=== PATIENT | female | born 1950 | race Caucasian/White ===

== ENCOUNTER → 2017-08-06 | Outpatient (CLI) | payer MEDICARE, OTHER ==
[2017-08-06 16:46] LABS: CHCM 32.2; HCT 42.4 % (34.0-46.0); HDW 2.46; HGB 13.2 gm/dL (11.4-16.0); MCH 26.2 pg (25.0-35.0); MCHC 31.1 g/dL (31.0-37.0); MCV 84.1 fL (80.0-100.0); Mean Platelet Volume 6.8; RBC 5.04 m/uL (3.80-5.40); RDW 14.3 % (11.5-15.5); WBC 12.8 k/uL (3.8-10.6)
[2017-08-06 18:17] LABS: Erythrocyte Sedimentation Rate 18 mm/hr (0-20)
== END | disposition home or self-care (01) ==
LOC: LABWHC1 14:55
PROVIDERS: ATTEND Internal Medicine Infectious Disease
DX: E13.621 Other specified diabetes mellitus with foot ulcer (principal)
CPT/HCPCS: 36415; 85027; 85652

== ENCOUNTER → 2017-08-15 | Outpatient (CLI) | payer MEDICARE, OTHER ==
--- NOTE | 2017-08-15 14:13 | US ---
LOWER EXTREMITY VENOUS INSUFFICIENCY SIDE PERFORMED: Bilateral 1) Color flow is present and patency is documented in the following vessels. No DVT or SVT is noted . EIV Common Femoral Vein Deep Femoral Vein Femoral Vein Popliteal Vein Proximal Calf Veins Greater Saph Vein Upper Small Saph Vein 2) There is venous reflux noted at the following venous levels: none IMPRESSION: No sonographic evidence of deep venous thrombosis, superficial venous thrombosis, or veno us reflux within the bilateral lower extremities.
--- NOTE | 2017-08-22 11:58 | P.ARTDOP ---
Arterial Doppler LOWER EXTREMITY ARTERIAL DOPPLER: DATE OF SERVICE: 08/15/2017 Reason for study: Left leg and ankle ulcers. Doppler waveforms: Multiphasic bilaterally throughout. Pulse volume recording: Normal configuration. Pressure gradients: None. Ankle-brachial indices: Greater than 1 bilaterally. Toe pressures: 95 on the right, 104 on the left Impression: Normal study.
== END | disposition home or self-care (01) ==
LOC: RADUSWWP 12:15
PROVIDERS: ATTEND Internal Medicine Infectious Disease
DX: M79.604 Pain in right leg (principal); M79.605 Pain in left leg; E13.621 Other specified diabetes mellitus with foot ulcer
CPT/HCPCS: 93923; 93970

== ENCOUNTER 2018-02-07 17:33 | Inpatient (IN) | payer MEDICARE, OTHER ==
[2018-02-07] MEDS ORDERED: IPRATROPIUM-ALBUTEROL 3 ML NEB INHALATION STA (18:23)
--- NOTE | 2018-02-07 18:30 | ED ---
SOB HPI - General Source: patient, RN notes reviewed Mode of arrival: ambulatory Limitations: no limitations <Matthew Olivera - Last Filed: 02/07/18 19:38> <Alcon Gruber - Last Filed: 02/07/18 20:06> - General Chief Complaint: Shortness of Breath Stated Complaint: poss cellulitis, sent by dr nichols Time Seen by Provider: 02/07/18 17:53 - History of Present Illness Initial Comments: 67-year-old female presents emergency Department chief complaint of shortness of breath. Patient states that her shortness breath is worse with exertion. Patient states that she has noticed some swelling of her lower legs. Patient admitted to having a 23 and weight gain over the last 12 days. Patient also complains that her shortness breath is worse when she lays down flat. Patient states that she's been taking Lasix twice daily though she has not taken it today. Patient states that she has no history of CHF. Patient does admit to having asthma/COPD and continues to smoke. Patient also complains of redness or left lower extremity. Patient states that she hasn't pain associated her left leg compared to the right. (Matthew Olivera) - Related Data Home Medications Medication Instructions Recorded Confirmed Aspirin 81 mg PO HS 02/06/14 02/07/18 Escitalopram [Lexapro] 10 mg PO HS 02/06/14 02/07/18 Fenofibrate Nanocrystallized 145 mg PO HS 02/06/14 02/07/18 [Tricor] HYDROcodone/APAP 7.5-325MG [[place] 1 tab PO Q6H PRN 02/06/14 02/07/18 7.5-325] Zafirlukast [Accolate] 20 mg PO BID 02/06/14 02/07/18 Ergocalciferol [Vitamin D2 50,000 unit PO Q7D 12/10/14 02/07/18 (DRISDOL)] Ezetimibe [Zetia] 10 mg PO HS 12/10/14 02/07/18 Levothyroxine Sodium [Synthroid] 175 mcg PO DAILY 12/10/14 02/07/18 Loperamide [Imodium] 8 mg PO DAILY PRN 12/10/14 02/07/18 Melatonin 5 mg PO HS 12/10/14 02/07/18 Loratadine [Claritin] 10 mg PO DAILY 09/06/15 02/07/18 Simvastatin [Zocor] 40 mg PO HS 09/06/15 02/07/18 ARIPiprazole [Abilify] 5 mg PO HS 02/07/18 02/07/18 Albuterol Nebulized [Ventolin 2.5 mg INHALATION RT-QID PRN 02/07/18 02/07/18 Nebulized] Fluticasone Nasal [place] [Flonase 1 - 2 spray EA NOSTRIL DAILY 02/07/18 02/07/18 Nasal [place]] Furosemide [Lasix] 40 mg PO DAILY 02/07/18 02/07/18 Glimepiride [Amaryl] 2 mg PO AC-BRKFST 02/07/18 02/07/18 Ibuprofen [Motrin] 600 mg PO BID PRN 02/07/18 02/07/18 Lisinopril [Zestril] 10 mg PO DAILY 02/07/18 02/07/18 metFORMIN HCL [Glucophage] 500 mg PO BID 02/07/18 02/07/18 traZODone HCL 100 mg PO HS PRN 02/07/18 02/07/18 Previous Rx's Medication Instructions Recorded Tiotropium 18 Mcg/Puff [Spiriva] 1 puff INHALATION RT-DAILY #1 12/14/14 inhaler Albuterol Inhaler [Ventolin Hfa 2 puff INHALATION RT-Q4H PRN #0 09/07/15 Inhaler] Allergies Allergy/AdvReac Type Severity Reaction Status Date / Time adhesive Allergy Rash/Hives Verified 02/07/18 17:50 ciprofloxacin [From Cipro] Allergy Rash/Hives Verified 02/07/18 17:50 ciprofloxacin HCl Allergy Rash/Hives Verified 02/07/18 17:50 [From Cipro] latex Allergy Rash/Hives Verified 02/07/18 17:50 nitrofurantoin Allergy Rash/Hives Verified 02/07/18 17:50 [From Macrobid] nitrofurantoin Allergy Rash/Hives Verified 02/07/18 17:50 macrocrystalline [From Macrobid] Penicillins Allergy Rash/Hives Verified 02/07/18 17:50 propoxyphene HCl Allergy Rash/Hives Verified 02/07/18 17:50 [From Darvon] propoxyphene napsylate Allergy Unknown Verified 02/07/18 17:50 [From Darvocet-N] Review of Systems ROS Other: All systems not noted in ROS Statement are negative. <Matthew Olivera - Last Filed: 02/07/18 19:38> ROS Other: All systems not noted in ROS Statement are negative. <TasneemAlcon thapa - Last Filed: 02/07/18 20:06> ROS Statement: Those systems with pertinent positive or pertinent negative responses have been documented in the HPI. Past Medical History Past Medical History: Asthma, COPD, Diabetes Mellitus, Hypertension, Osteoarthritis (OA), Respiratory Disorder, Skin Disorder, Thyroid Disorder Additional Past Medical History / Comment(s): HX SKIN CA; HAS ECZEMA.. HX HYPOTHYROID. VARICOSE VEINS. 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 SOB W/ ACTIVITY.HX KIDNEY STONES. ON 12-04-14 HAD E-COLI IN URINE, 12-10-14 ADMITTED WITH CELLULITIS. LEFT LEG.HX OF FALLS. PT STATED USED TO BE ON MEDS FOR DIABETES BUT NOT TAKING ANYTHING NOW, CHECKS BS TID DIET CONTROLLED. History of Any Multi-Drug Resistant Organisms: None Reported Past Surgical History: Appendectomy, Section, Cholecystectomy, Orthopedic Surgery, Tubal Ligation Additional Past Surgical History / Comment(s): LASER SX JETHRO EYES FOR GLAUCOMA. RT KNEE ARTHROSCOPY. UNDERWENT PERCUTANEOUS NEPHROSTOLITHOTOMY Past Anesthesia/Blood Transfusion Reactions: No Reported Reaction Past Psychological History: Anxiety, Depression Smoking Status: Current every day smoker Past Alcohol Use History: None Reported Past Drug Use History: None Reported - Past Family History Mother Additional Family Medical History / Comment(s): emphysema, heart valve problems , in her slepp. Brother(s) Family Medical History: Cancer Additional Family Medical History / Comment(s): from oral cancer Father Brother(s) Family Medical History: Cancer Additional Family Medical History / Comment(s): heart disease <Matthew Olivera - Last Filed: 02/07/18 19:38> General Exam Limitations: no limitations General appearance: alert, in no apparent distress Head exam: Present: atraumatic, normocephalic, normal inspection Neck exam: Present: normal inspection. Absent: tenderness, meningismus, lymphadenopathy Respiratory exam: Present: wheezes, rales. Absent: normal lung sounds bilaterally, respiratory distress, rhonchi, stridor Cardiovascular Exam: Present: regular rate, normal rhythm, normal heart sounds. Absent: systolic murmur, diastolic murmur, rubs, gallop, clicks Extremities exam: Present: pedal edema, other (Left lower extremity there is some erythema noted pulses are equal bilaterally) Skin exam: Present: warm, dry, intact, normal color. Absent: rash <Matthew Olivera - Last Filed: 02/07/18 19:38> Vital Signs 02/07/18 02/07/18 02/07/18 17:45 18:54 18:58 Temperature 99.3 F Pulse Rate 89 64 70 Respiratory 18 16 24 Rate Blood Pressure 137/74 149/67 O2 Sat by Pulse 87 L 98 Oximetry 02/07/18 19:08 Temperature Pulse Rate 62 Respiratory 16 Rate Blood Pressure O2 Sat by Pulse Oximetry Medical Decision Making - Lab Data Result diagrams: 02/07/18 18:19 02/07/18 18:19 <Matthew Olivera - Last Filed: 02/07/18 19:38> - Lab Data Result diagrams: 02/07/18 18:19 02/07/18 18:19 <Alcon Gruber - Last Filed: 02/07/18 20:06> - Lab Data Lab Results 02/07/18 02/07/18 02/07/18 Range/Units 18:19 18:19 18:19 WBC 11.2 H (3.8-10.6) k/uL RBC 4.44 (3.80-5.40) m/uL Hgb 12.0 (11.4-16.0) gm/dL Hct 35.7 (34.0-46.0) % MCV 80.5 (80.0-100.0) fL MCH 27.0 (25.0-35.0) pg MCHC 33.6 (31.0-37.0) g/dL RDW 15.6 H (11.5-15.5) % Plt Count 386 (150-450) k/uL Neutrophils % 80 % Lymphocytes % 11 % Monocytes % 4 % Eosinophils % 2 % Basophils % 0 % Neutrophils # 9.0 H (1.3-7.7) k/uL Lymphocytes # 1.3 (1.0-4.8) k/uL Monocytes # 0.5 (0-1.0) k/uL Eosinophils # 0.2 (0-0.7) k/uL Basophils # 0.0 (0-0.2) k/uL PT (9.0-12.0) sec INR (<1.2) APTT (22.0-30.0) sec D-Dimer (<0.60) mg/L FEU Sodium 131 L (137-145) mmol/L Potassium 4.8 (3.5-5.1) mmol/L Chloride 91 L (98-107) mmol/L Carbon Dioxide 29 (22-30) mmol/L Anion Gap 11 mmol/L BUN 29 H (7-17) mg/dL Creatinine 0.50 L (0.52-1.04) mg/dL Est GFR (CKD-EPI)AfAm >90 (>60 ml/min/1.73 sqM) Est GFR (CKD-EPI)NonAf >90 (>60 ml/min/1.73 sqM) Glucose 209 H (74-99) mg/dL Calcium 9.0 (8.4-10.2) mg/dL Magnesium 1.6 (1.6-2.3) mg/dL Total Bilirubin <0.1 L (0.2-1.3) mg/dL AST 25 (14-36) U/L ALT 47 (9-52) U/L Alkaline Phosphatase 79 (38-126) U/L Total Creatine Kinase 65 (30-135) U/L CK-MB (CK-2) 2.4 (0.0-2.4) ng/mL CK-MB (CK-2) Rel Index 3.7 Troponin I <0.012 (0.000-0.034) ng/mL NT-Pro-B Natriuret Pep pg/mL Total Protein 5.9 L (6.3-8.2) g/dL Albumin 3.4 L (3.5-5.0) g/dL 02/07/18 02/07/18 Range/Units 18:19 18:19 WBC (3.8-10.6) k/uL RBC (3.80-5.40) m/uL Hgb (11.4-16.0) gm/dL Hct (34.0-46.0) % MCV (80.0-100.0) fL MCH (25.0-35.0) pg MCHC (31.0-37.0) g/dL RDW (11.5-15.5) % Plt Count (150-450) k/uL Neutrophils % % Lymphocytes % % Monocytes % % Eosinophils % % Basophils % % Neutrophils # (1.3-7.7) k/uL Lymphocytes # (1.0-4.8) k/uL Monocytes # (0-1.0) k/uL Eosinophils # (0-0.7) k/uL Basophils # (0-0.2) k/uL PT 10.3 (9.0-12.0) sec INR 1.1 (<1.2) APTT 23.5 (22.0-30.0) sec D-Dimer 1.19 H (<0.60) mg/L FEU Sodium (137-145) mmol/L Potassium (3.5-5.1) mmol/L Chloride (98-107) mmol/L Carbon Dioxide (22-30) mmol/L Anion Gap mmol/L BUN (7-17) mg/dL Creatinine (0.52-1.04) mg/dL Est GFR (CKD-EPI)AfAm (>60 ml/min/1.73 sqM) Est GFR (CKD-EPI)NonAf (>60 ml/min/1.73 sqM) Glucose (74-99) mg/dL Calcium (8.4-10.2) mg/dL Magnesium (1.6-2.3) mg/dL Total Bilirubin (0.2-1.3) mg/dL AST (14-36) U/L ALT (9-52) U/L Alkaline Phosphatase (38-126) U/L Total Creatine Kinase (30-135) U/L CK-MB (CK-2) (0.0-2.4) ng/mL CK-MB (CK-2) Rel Index Troponin I (0.000-0.034) ng/mL NT-Pro-B Natriuret Pep 258 pg/mL Total Protein (6.3-8.2) g/dL Albumin (3.5-5.0) g/dL - EKG Data EKG Comments: EKG performed at 18:31 normal sinus rhythm with a rate of 74 [place] 174 QRS 80 QT/ QTC 410/455 (Matthew Olivera) Disposition <Matthew Olivera - Last Filed: 02/07/18 19:38> Is patient prescribed a controlled substance at d/c from ED?: No Decision to Admit Reason: Admit from EC Decision Date: 02/07/18 Decision Time: 20:06 <Alcon Gruber - Last Filed: 02/07/18 20:06> Clinical Impression: Orthopnea, Pedal edema, Exertional dyspnea Disposition: ADMITTED IP TO THIS HOSP Condition: Stable Referrals: Ken Nichols MD [Primary Care Provider] - 1-2 days
[2018-02-07] MEDS ORDERED: FUROSEMIDE 10 MG/ML 4 ML VIAL IV STA (18:35)
[2018-02-07 18:41] LABS: ALT 47 U/L (9-52); AST 25 U/L (14-36); Albumin 3.4 g/dL (3.5-5.0); Alkaline Phosphatase 79 U/L (38-126); Anion Gap 11 mmol/L; Blood Urea Nitrogen 29 mg/dL (7-17); Carbon Dioxide 29 mmol/L (22-30); Chloride 91 mmol/L (98-107); Glucose 209 mg/dL (74-99); Magnesium 1.6 mg/dL (1.6-2.3); Potassium 4.8 mmol/L (3.5-5.1); Sodium 131 mmol/L (137-145); Total Bilirubin <0.1 mg/dL (0.2-1.3); Total Protein 5.9 g/dL (6.3-8.2)
[2018-02-07 18:43] LABS: Basophils % (A) 0 %; Eosinophils # (A) 0.2 k/uL (0-0.7); Eosinophils % (A) 2 %; HCT 35.7 % (34.0-46.0); Lymphocytes # (A) 1.3 k/uL (1.0-4.8); Lymphocytes % (A) 11 %; MCHC 33.6 g/dL (31.0-37.0); MCV 80.5 fL (80.0-100.0); Mean Platelet Volume 6.3; Monocytes # (A) 0.5 k/uL (0-1.0); Monocytes % (A) 4 %; Neutrophils % (A) 80 %; Platelet Count 386 k/uL (150-450); RBC 4.44 m/uL (3.80-5.40); RDW 15.6 % (11.5-15.5); WBC 11.2 k/uL (3.8-10.6)
[2018-02-07 18:53] LABS: Creatine Kinase 65 U/L (30-135)
--- NOTE | 2018-02-07 19:00 | XR ---
EXAMINATION TYPE: XR chest 2V DATE OF EXAM: 02/07/2018 COMPARISON: 09/06/2015 HISTORY: Short of breath TECHNIQUE: Frontal and lateral views of the chest are obtained. FINDINGS: There is no heart failure nor confluent pneumonic infiltrate. There is minimal linear dens ity in the left midlung. Heart size is normal. Thoracic aorta is atheromatous. There are chest leads. There is no pleural effusion. IMPRESSION: Minimal subsegmental atelectasis in the left midlung appears new compared to old exam. N ormal heart. No heart failure.
[2018-02-07 19:03] LABS: INR 1.1 (<1.2); Partial Thromboplastin Time 23.5 sec (22.0-30.0); Prothrombin Time 10.3 sec (9.0-12.0)
[2018-02-07 19:04] LABS: Creatine Kinase MB 2.4 ng/mL (0.0-2.4); Troponin I <0.012 ng/mL (0.000-0.034)
[2018-02-07 19:10] LABS: D-Dimer 1.19 mg/L FEU (<0.60)
--- NOTE | 2018-02-07 19:49 | CT ---
EXAMINATION TYPE: CT chest angio for PE DATE OF EXAM: 02/07/2018 COMPARISON: 09/06/2015 HISTORY: SOB x2 weeks CT DLP: 414.7 mGycm Automated exposure control for dose reduction was used. CONTRAST: CT Chest for pulmonary embolism performed with with IV Contrast, patient injected with 100 mL of Isov ue 370. FINDINGS: There are 3-D post processed images. There is mild bilateral groundglass interstitial pulmonary density. There is linear density in the li ngula left upper lobe. There is no pleural effusion. There is no pericardial effusion. I see no filli ng defects in the pulmonary arteries. There is a 2 x 1.5 cm pretracheal lymph node. Thoracic aorta is atheromatous. There is no evidence of aneurysm or dissection. IMPRESSION: Interstitial pulmonary density consistent with fibrosis. No evidence of pulmonary embolism. CT scan a ppears not significantly different than old exam.
[2018-02-07] MEDS ORDERED: NALOXONE 0.4 MG/ML 1 ML VIAL IV PRN (20:03)
[2018-02-07] MEDS ORDERED: ACETAMINOPHEN TAB 500 MG TAB PO PRN (22:55)
[2018-02-07] MEDS ORDERED: IPRATROPIUM-ALBUTEROL 3 ML NEB INHALATION PRN (22:55)
[2018-02-07] MEDS ORDERED: TEMAZEPAM 15 MG CAP PO PRN (22:55)
[2018-02-07] MEDS ORDERED: ALPRAZolam 0.25 MG TAB PO PRN (22:55)
[2018-02-07] MEDS ORDERED: ONDANSETRON 4 MG/2 ML VIAL IVP PRN (22:55)
[2018-02-07] MEDS ORDERED: IBUPROFEN 600 MG TAB PO PRN (22:57)
[2018-02-07] MEDS ORDERED: traZODone HCL 100 MG TAB PO PRN (22:57)
[2018-02-07] MEDS ORDERED: LOPERAMIDE 2 MG CAP PO PRN (22:57)
[2018-02-07] MEDS ORDERED: AZITHROMYCIN 500 MG in SODIUM CHLORIDE 0.9% 250 ML IVPB SCH (23:00)
--- NOTE | 2018-02-07 23:31 | HP ---
HISTORY AND PHYSICAL DATE OF SERVICE: 02/07/2018 CHIEF COMPLAINT: Shortness of breath. HISTORY OF PRESENT ILLNESS: This 67-year-old woman with a past medical history of asthma, COPD, diabetes mellitus, hypertension, history of DJD, being followed by Dr. Woodruff in the outpatient setting, was complaining of shortness of breath. The patient had increased shortness of breath and the patient came to [facility] and was admitted for further evaluation and treatment. The patient apparently had some weight gain and leg swelling also. Patient also has some erythema of the right leg. There is no history of fever, rigor or chills at this time. PAST MEDICAL HISTORY: 1. History of asthma. 2. COPD. 3. Diabetes mellitus. 4. Hypertension. 5. DJD. HOME MEDICATIONS: 1. Trazodone 100 mg at bedtime p.r.n. 2. Glucophage 500 mg p.o. b.i.d. 3. Accolate 20 mg p.o. b.i.d. 4. Spiriva 1 puff daily. 5. Zocor 40 mg at bedtime. 6. Melatonin 5 mg at bedtime. 7. Claritin 10 mg p.o. daily. 8. Imodium 8 mg p.o. daily p.r.n. 9. Zestril 10 mg p.o. daily. 10.Synthroid 175 mcg p.o. daily. 11.Motrin 600 mg b.i.d. p.r.n. 12.Hydrocodone 7.5 mg q.6 p.r.n. 13.Amaryl 2 mg before breakfast. 14.Lasix 40 mg p.o. daily. 15.Flonase 1-2 sprays daily. 16.Tricor 145 mg at bedtime. 17.Zetia 10 mg at bedtime. 18.Lexapro 10 mg at bedtime. 19.Vitamin D2 50,000 q.7 days. 20.Aspirin 81 mg daily. 21.Ventolin 2.5 q.i.d. p.r.n. 22.Abilify 5 mg at bedtime. ALLERGIES: 1. ADHESIVE. 2. CIPROFLOXACIN. 3. LATEX. 4. NITROFURANTOIN. 5. PENICILLIN. 6. PROPOXYPHENE. FAMILY HISTORY: History of cancer, heart disease. SOCIAL HISTORY: History of smoking daily. No history alcohol intake. REVIEW OF SYSTEMS: ENT: No diminished hearing. No diminished vision. CARDIOVASCULAR SYSTEM: As mentioned earlier. RESPIRATORY SYSTEM: As mentioned earlier. GI: No nausea, vomiting. : No dysuria or retention. NERVOUS SYSTEM: No numbness, weakness. ALLERGY/IMMUNOLOGY: No asthma, hayfever. MUSCULOSKELETAL: As mentioned earlier. HEMATOLOGY/ONCOLOGY: No history of anemia. ENDOCRINE: Diabetes mellitus. CONSTITUTIONAL: As mentioned earlier. DERMATOLOGY: Negative. RHEUMATOLOGY: Negative. PSYCHIATRY: As mentioned earlier. PHYSICAL EXAMINATION: Patient is alert, oriented x3. Pulse 60, blood pressure 117/50, respiration 20, temperature 97.6, pulse ox 94% on 2 L. HEENT: Conjunctivae normal. Oral mucosa moist. NECK: No jugular venous distention. No carotid bruit. No lymph node enlargement. CARDIOVASCULAR SYSTEM: S1, S2 muffled. No S3. No S4. RESPIRATORY SYSTEM: Breath sounds diminished at the bases. Bilateral scattered rhonchi and crackles, right more than left. Expiratory wheezing also present. ABDOMEN: Soft, non-tender. No mass palpable. LEGS: Bilateral leg edema, left more than the right. Some erythema on the legs also present. NERVOUS SYSTEM: Higher functions as mentioned earlier. Moves all 4 limbs. No focal motor or sensory deficit. LYMPHATICS: No lymph node palpable in neck, axillae or groin. SKIN: No ulcer, rash, bleeding. LABS: WBC 11.2, hemoglobin 12. Sodium 131. The chest x-ray and CT are noted. Possible suspected pulmonary fibrosis and atelectasis. ASSESSMENT: 1. Chronic obstructive pulmonary disease, acute exacerbation, with acute cor pulmonale. 2. Rule out pulmonary fibrosis. 3. History of asthma, chronic obstructive pulmonary disease. 4. History of diabetes mellitus, type 2. 5. Hypertension. 6. Degenerative joint disease. 7. History of hypothyroidism. 8. History of eczema. 9. Possible left leg cellulitis. 10.Cholecystectomy. 11.Anxiety, depression. 12.History of nicotine dependence. RECOMMENDATIONS AND DISCUSSION: In this 67-year-old woman who presented with multiple complex medical issues., we will monitor the patient closely, continue the current medications, continue with symptomatic treatment. I recommend intensive bronchodilators, steroids and empiric antibiotics. Otherwise, we will closely follow with Dr. Cho to rule out the possibility of pulmonary fibrosis. Optimize bronchodilator treatment. Prognosis guarded because of multiple complex medical issues. Further recommendations to follow. A copy of this dictation is being forwarded to Dr. Woodruff, who is the primary physician. MMMALICKL / IJN: [id number] /
[2018-02-08] MEDS ORDERED: AZITHROMYCIN 500 MG in DEXTROSE 5% IN WATER 250 ML IVPB SCH ×2 (00:09)
[2018-02-08] MEDS: cefTRIAXone IN SWFI 1,000 MG/10 ML SYRINGE IVP SCH ×2 (00:44→23:22)
[2018-02-08] MEDS: ARIPiprazole 5 MG TAB PO SCH ×2 (00:44→20:35)
[2018-02-08] MEDS: FUROSEMIDE 10 MG/ML 4 ML VIAL IV SCH ×4 (00:45→23:22)
[2018-02-08] MEDS: MELATONIN 5 MG TABLET PO SCH ×2 (00:45→20:47)
[2018-02-08] MEDS: EZETIMIBE 10 MG TAB PO SCH ×2 (00:45→20:35)
[2018-02-08] MEDS: methylPREDNISolone SOD SUCCI 125 MG/2 ML VIAL IV SCH ×5 (00:45→23:21)
[2018-02-08 01:20] LABS: Creatine Kinase 49 U/L (30-135)
[2018-02-08 01:34] LABS: Creatine Kinase MB 1.8 ng/mL (0.0-2.4); Troponin I <0.012 ng/mL (0.000-0.034)
[2018-02-08 06:08] LABS: Glucose,Whole Blood 238 mg/dL (75-99)
[2018-02-08] MEDS: LEVOTHYROXINE 75 MCG TAB PO SCH (06:08)
[2018-02-08] MEDS: PANTOPRAZOLE 40 MG TABLET PO SCH (06:08)
[2018-02-08] MEDS: LEVOTHYROXINE 100 MCG TAB PO SCH (06:08)
[2018-02-08] MEDS: GLIMEPIRIDE 2 MG TAB PO SCH (06:09)
[2018-02-08] MEDS: INSULIN ASPART 100 UNIT/ML 1 ML 10 ML VIAL SQ SCH ×4 (06:54→21:01)
[2018-02-08 07:24] LABS: Basophils % (A) 0 %; Eosinophils % (A) 0 %; HCT 39.1 % (34.0-46.0); HGB 12.3 gm/dL (11.4-16.0); Hypochromasia Slight; Lymphocytes # (A) 0.6 k/uL (1.0-4.8); Lymphocytes % (A) 6 %; MCH 26.2 pg (25.0-35.0); MCHC 31.4 g/dL (31.0-37.0); MCV 83.4 fL (80.0-100.0); Mean Platelet Volume 6.2; Monocytes # (A) 0.1 k/uL (0-1.0); Monocytes % (A) 1 %; Neutrophils # (A) 8.6 k/uL (1.3-7.7); Neutrophils % (A) 92 %; Platelet Count 374 k/uL (150-450); RBC 4.69 m/uL (3.80-5.40); RDW 15.6 % (11.5-15.5); WBC 9.3 k/uL (3.8-10.6)
[2018-02-08] MEDS: BUDESONIDE 1 MG/2 ML NEBU INHALATION SCH ×2 (07:29→20:27)
[2018-02-08] MEDS: IPRATROPIUM-ALBUTEROL 3 ML NEB INHALATION SCH ×4 (07:29→20:27)
[2018-02-08] MEDS: FORMOTEROL FUMARATE 20 MCG/2 ML NEBU INHALATION SCH ×2 (07:29→20:27)
[2018-02-08 07:44] LABS: Creatine Kinase 40 U/L (30-135)
[2018-02-08 07:48] LABS: Anion Gap 12 mmol/L; Blood Urea Nitrogen 28 mg/dL (7-17); Calcium 9.2 mg/dL (8.4-10.2); Carbon Dioxide 26 mmol/L (22-30); Chloride 93 mmol/L (98-107); Glucose 237 mg/dL (74-99); Potassium 5.5 mmol/L (3.5-5.1); Sodium 131 mmol/L (137-145)
[2018-02-08 07:56] LABS: Creatine Kinase MB 1.5 ng/mL (0.0-2.4); Troponin I <0.012 ng/mL (0.000-0.034)
[2018-02-08] MEDS: FLUTICASONE 50MCG/SPRAY NASAL 16GM EA NOSTRIL SCH (10:09)
[2018-02-08] MEDS: HEPARIN SODIUM,PORCINE 5,000 UNIT/ML 1 ML VIAL SQ SCH ×2 (10:10→20:36)
[2018-02-08] MEDS: LORATADINE 10 MG TAB PO SCH (10:10)
[2018-02-08] MEDS: metFORMIN 500 MG TAB PO SCH ×2 (10:11→20:37)
[2018-02-08] MEDS: NICOTINE 14MG/24HR PATCH TRANSDERM SCH (10:11)
[2018-02-08] MEDS: LISINOPRIL 10 MG TAB PO SCH (10:11)
[2018-02-08] MEDS: MULTIVITAMINS, THERA 1 EACH TAB PO SCH (10:12)
--- NOTE | 2018-02-08 11:11 | CONS ---
CONSULTATION Ban Estrada is a 67-year-old female with a history of asthma and severe pulmonary hypertension who presented to the hospital for shortness of breath. She denied any chest discomfort. She also has significant lower extremity edema. REVIEW OF SYSTEMS: No fever, chills, or rigors. No cough or expectoration. No nausea, vomiting, or diarrhea. No hematuria or dysuria. No strokes or seizures. PAST MEDICAL HISTORY: Past medical history of lung disease, shortness of breath, diabetes type 2, hypertension, DJD. MEDICATIONS: Medications at home include trazodone, Glucophage, Accolate, Spiriva, Zocor, melatonin, Claritin, Imodium, Zestril, Synthroid, Motrin, hydrocodone, Amaryl, Lasix, Flonase, Tricor, Zetia, Lexapro, vitamin D, aspirin, Ventolin, Abilify. ALLERGIES: Allergies to ADHESIVES, TAPE, CIPROFLOXACIN, LATEX, NITROFURANTOIN, PENICILLIN, PROPOXYPHENE. FAMILY HISTORY: Family history of cancer. SOCIAL HISTORY: History of daily smoking. No alcohol use. PHYSICAL EXAMINATION: On examination, her blood pressure is 120/60 mmHg, respirations are 20 to 24 per minute. She short of breath. She has bilateral lower extremity edema. Pulse ox 94% on 2 L. Afebrile. She is alert and oriented. Breath sounds are reduced bilaterally with bilateral crackles and rhonchi with expiratory wheezing. Heart sounds are muffled. S1, S2 soft with no murmurs. Bilateral lower extremity edema noted. Abdomen is soft, nontender. Extremities are warm. There are no ulcers. LABS: Labs are reviewed and her white count is 11.2, hemoglobin 12. Sodium is 131. Chest x- ray and CT show pulmonary fibrosis. IMPRESSION: 1. Shortness of breath, most likely related to her severe pulmonary disease with pulmonary fibrosis. 2. History of type 2 diabetes. 3. Hypertension. SUGGEST: Continue current medications. Monitor blood pressure. A 2D echo and Doppler study to assess the right ventricular size and function in response to her severe lung disease. MMODL / IJN: [id number] /
[2018-02-08 11:45] LABS: Glucose,Whole Blood 290 mg/dL (75-99)
[2018-02-08] MEDS ORDERED: ERGOCALCIFEROL 50,000 UNIT CAP PO SCH (12:00)
[2018-02-08 13:27] LABS: Hemoglobin A1C 8.1 % (4.0-6.0)
--- NOTE | 2018-02-08 14:02 | ECHOF ---
Referral Reason:chf MEASUREMENTS -------- HEIGHT: 152.4 cm WEIGHT: 86.2 kg BP: 149/69 RVIDd: 2.7 cm (< 3.3) IVSd: 1.2 cm (0.6 - 1.1) LVIDd: 5.1 cm (3.9 - 5.3) LVPWd: 1.4 cm (0.6 - 1.1) IVSs: 1.5 cm LVIDs: 3.9 cm LVPWs: 1.4 cm LA Diam: 3.9 cm (2.7 - 3.8) LAESV Index (A-L): 28.95 ml/m Ao Diam: 2.6 cm (2.0 - 3.7) AV Cusp: 1.4 cm (1.5 - 2.6) LA Diam: 4.5 cm (2.7 - 3.8) MV EXCURSION: 13.275 mm (> 18.000) MV EF SLOPE: 57 mm/s (70 - 150) EPSS: 0.7 cm MV E Neal: 1.36 m/s MV DecT: 232 ms MV A Neal: 1.37 m/s MV E/A Ratio: 1.00 RAP: 5.00 mmHg RVSP: 13.29 mmHg FINDINGS -------- Sinus rhythm. This was a technically adequate study. The left ventricular size is normal. There is mild concentric left ventricular hypertrophy. Overa ll left ventricular systolic function is low-normal with, an EF between 50 - 55 %. The right ventricle is normal in size. The left atrial size is normal. The right atrial size is normal. There is mild aortic valve sclerosis. There is no evidence of aortic regurgitation. Mild mitral annular calcification present. Mild mitral regurgitation is present. Mild tricuspid regurgitation present. There is no evidence of pulmonary hypertension. The right v entricular systolic pressure, as measured by Doppler, is 13.29mmHg. There is no pulmonic regurgitation present. The aortic root size is normal. There is no pericardial effusion. CONCLUSIONS -------- 1. The left ventricular size is normal. 2. There is mild concentric left ventricular hypertrophy. 3. Overall left ventricular systolic function is low-normal with, an EF between 50 - 55 %. 4. The right ventricle is normal in size. 5. The left atrial size is normal. 6. The right atrial size is normal. 7. There is mild aortic valve sclerosis. 8. Mild mitral annular calcification present. 9. Mild mitral regurgitation is present. 10. Mild tricuspid regurgitation present. 11. There is no evidence of pulmonary hypertension. 12. The right ventricular systolic pressure, as measured by Doppler, is 13.29mmHg. 13. There is no pulmonic regurgitation present. 14. The aortic root size is normal. 15. There is no pericardial effusion. COMPLAINT COORDINATOR: Maria Dolores Bonds RDCS
--- NOTE | 2018-02-08 16:10 | P.CNPUL ---
History of Present Illness Consult date: 02/08/18 Reason for consult: dyspnea History of present illness: Obese 67-year-old female patient with known history of childhood asthma and history of smoking/COPD in addition to morbid obesity, diabetes mellitus, and hypertension, presented to the hospital because of worsening shortness of breath and increasing body weight and lower extremity edema. No history of any calf pain or tenderness. No angina. No pleurisy or hemoptysis. She has limited congested cough and she is not able to produce any significant sputum. She is already feeling better as the patient got diuresed over the past 24 hours with IV Lasix. Her weight is gradually improving. The patient had a CT angios the chest that showed no evidence of any pulmonary embolism. There is some background COPD on the lung windows. As far as her COPD, the patient is a chronic smoker in she smokes one pack of cigarettes a day. She is on Spiriva as maintenance regarding her COPD. She does not have any oxygen or she has any CPAP machine for any diagnosis of sleep breathing disorder. The echocardiogram showed a preserved LV function with an ejection fraction of 50-55%. Right- sided cardiac surgeons are within normal limits. Diverticular systolic pressure is around 13. No valvular abnormalities noted. The proBNP level was nonelevated. Troponins are negative. Renal function is within normal limits. No significant metabolic alkalosis other blood work. Review of Systems Constitutional: Reports daytime sleepiness, Reports fatigue, Reports weight gain Eyes: denies blurred vision, denies bulging eye, denies decreased vision Ears: deny: decreased hearing, ear discharge, earache, tinnitus Ears, nose, mouth and throat: Reports as per HPI (Snoring is present on her history), Denies headache, Denies sore throat Cardiovascular: Reports decreased exercise tolerance, Reports dyspnea on exertion, Reports shortness of breath Respiratory: Reports cough, Reports dyspnea, Reports wheezing Gastrointestinal: Denies abdominal pain, Denies diarrhea, Denies nausea, Denies vomiting Genitourinary: Denies dysuria, Denies hematuria Menstruation: Reports as per HPI Musculoskeletal: Reports as per HPI Musculoskeletal: bilateral: ankle swelling, absent: ankle pain, ankle stiffness Integumentary: Denies pruritus, Denies rash Neurological: Reports as per HPI Psychiatric: Reports as per HPI Endocrine: Reports as per HPI Hematologic/Lymphatic: Reports as per HPI Allergic/Immunologic: Reports as per HPI Past Medical History Past Medical History: Asthma, Chest Pain / Angina, COPD, Diabetes Mellitus, Hypertension, Osteoarthritis (OA), Respiratory Disorder, Skin Disorder, Thyroid Disorder Additional Past Medical History / Comment(s): Obesity (BMI 35) COPD, asthma, diabetes , depression, 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 History of Any Multi-Drug Resistant Organisms: None Reported Past Surgical History: Appendectomy, Section, Cholecystectomy, Orthopedic Surgery, Tubal Ligation Additional Past Surgical History / Comment(s): LASER SX JETHRO EYES FOR GLAUCOMA. RT KNEE ARTHROSCOPY. UNDERWENT PERCUTANEOUS NEPHROSTOLITHOTOMY Past Anesthesia/Blood Transfusion Reactions: No Reported Reaction Smoking Status: Current every day smoker (smokes 1 PPD and she has smoked since the age of 17) - Past Family History Mother Additional Family Medical History / Comment(s): emphysema, heart valve problems , in her slepp. Brother(s) Family Medical History: Cancer Additional Family Medical History / Comment(s): from oral cancer Father Brother(s) Family Medical History: Cancer Additional Family Medical History / Comment(s): heart disease Medications and Allergies Home Medications Medication Instructions Recorded Confirmed Type Aspirin 81 mg PO HS 02/06/14 02/07/18 History Escitalopram [Lexapro] 10 mg PO HS 02/06/14 02/07/18 History Fenofibrate Nanocrystallized 145 mg PO HS 02/06/14 02/07/18 History [Tricor] HYDROcodone/APAP 7.5-325MG [[facility] 1 tab PO Q6H PRN 02/06/14 02/07/18 History 7.5-325] Zafirlukast [Accolate] 20 mg PO BID 02/06/14 02/07/18 History Ergocalciferol [Vitamin D2 50,000 unit PO Q7D 12/10/14 02/07/18 History (DRISDOL)] Ezetimibe [Zetia] 10 mg PO HS 12/10/14 02/07/18 History Levothyroxine Sodium [Synthroid] 175 mcg PO DAILY 12/10/14 02/07/18 History Loperamide [Imodium] 8 mg PO DAILY PRN 12/10/14 02/07/18 History Melatonin 5 mg PO HS 12/10/14 02/07/18 History Tiotropium 18 Mcg/Puff [Spiriva] 1 puff INHALATION RT-DAILY #1 12/14/14 Rx inhaler Loratadine [Claritin] 10 mg PO DAILY 09/06/15 02/07/18 History Simvastatin [Zocor] 40 mg PO HS 09/06/15 02/07/18 History Albuterol Inhaler [Ventolin Hfa 2 puff INHALATION RT-Q4H PRN #0 09/07/15 Rx Inhaler] ARIPiprazole [Abilify] 5 mg PO HS 02/07/18 02/07/18 History Albuterol Nebulized [Ventolin 2.5 mg INHALATION RT-QID PRN 02/07/18 02/07/18 History Nebulized] Fluticasone Nasal [place] [Flonase 1 - 2 spray EA NOSTRIL DAILY 02/07/18 02/07/18 History Nasal [place]] Furosemide [Lasix] 40 mg PO DAILY 02/07/18 02/07/18 History Glimepiride [Amaryl] 2 mg PO AC-BRKFST 02/07/18 02/07/18 History Ibuprofen [Motrin] 600 mg PO BID PRN 02/07/18 02/07/18 History Lisinopril [Zestril] 10 mg PO DAILY 02/07/18 02/07/18 History metFORMIN HCL [Glucophage] 500 mg PO BID 02/07/18 02/07/18 History traZODone HCL 100 mg PO HS PRN 02/07/18 02/07/18 History Allergies Allergy/AdvReac Type Severity Reaction Status Date / Time adhesive Allergy Rash/Hives Verified 02/07/18 17:50 ciprofloxacin [From Cipro] Allergy Rash/Hives Verified 02/07/18 17:50 ciprofloxacin HCl Allergy Rash/Hives Verified 02/07/18 17:50 [From Cipro] latex Allergy Rash/Hives Verified 02/07/18 17:50 nitrofurantoin Allergy Rash/Hives Verified 02/07/18 17:50 [From Macrobid] nitrofurantoin Allergy Rash/Hives Verified 02/07/18 17:50 macrocrystalline [From Macrobid] Penicillins Allergy Rash/Hives Verified 02/07/18 17:50 propoxyphene HCl Allergy Rash/Hives Verified 02/07/18 17:50 [From Darvon] propoxyphene napsylate Allergy Unknown Verified 02/07/18 17:50 [From Darvocet-N] Physical Exam Vitals: Vital Signs Temp Pulse Pulse Resp BP BP Pulse Ox 02/08/18 11:14 68 18 144/72 96 02/08/18 08:00 98.2 F 86 18 152/76 95 02/08/18 07:43 66 02/08/18 07:32 62 96 02/08/18 04:00 97.8 F 62 20 149/69 96 02/07/18 22:22 97.6 F 60 20 117/50 95 02/07/18 21:15 69 22 143/78 94 L 02/07/18 19:08 62 16 02/07/18 18:58 70 24 149/67 98 02/07/18 18:54 64 16 02/07/18 17:45 99.3 F 89 18 137/74 87 L Intake and Output 02/07/18 02/08/18 02/08/18 22:59 06:59 14:59 Intake Total 120 Balance 120 Intake: Oral 120 Other: # Voids 1 1 # Bowel Movements 0 Weight 86.3 kg 86.3 kg Morbidly obese, comfortable likely distress. Current BMI 35.9. Head exam was generally normal. There was no scleral icterus or corneal arcus. Mucous membranes were moist. Neck was supple and without jugular venous distension, thyromegaly, or carotid bruits. Carotids were easily palpable bilaterally. There was no adenopathy. Patient has significant crowding of the posterior oropharynx and Mallampati class IV Lung sounds are diminished bilaterally especially in lung bases along with some scattered expiratory wheezes throughout the lung campbell bilaterally. Cardiac exam revealed the PMI to be normally situated and sized. The rhythm was regular and no extrasystoles were noted during several minutes of auscultation. The first and second heart sounds were normal and physiologic splitting of the second heart sound was noted. There were no murmurs, rubs, clicks, or gallops. Abdomen is obese soft nontender. No organomegaly. No direct tenderness or rebound tenderness or guarding. Extremities revealed +1 edema and there is a also clubbing at this point. Examination of the skin revealed no evidence of significant rashes, suspicious appearing nevi or other concerning lesions. Neuro the patient is awake and alert. The patient is no focal neurological deficit at this point. Results - Laboratory Findings CBC and BMP: 02/08/18 06:32 18 06:32 PT/INR, D-dimer PT 10.3 sec (9.0-12.0) 02/07/18 18:19 INR 1.1 (<1.2) 02/07/18 18:19 D-Dimer 1.19 mg/L FEU (<0.60) H 02/07/18 18:19 Abnormal lab findings: Abnormal Labs 02/07/18 02/07/18 02/07/18 18:19 18:19 18:19 WBC 11.2 H RDW 15.6 H Neutrophils # 9.0 H Lymphocytes # D-Dimer 1.19 H Sodium 131 L Potassium Chloride 91 L BUN 29 H Creatinine 0.50 L Glucose 209 H POC Glucose (mg/dL) Total Bilirubin <0.1 L Total Protein 5.9 L Albumin 3.4 L 02/08/18 02/08/18 02/08/18 06:07 06:32 06:32 WBC RDW 15.6 H Neutrophils # 8.6 H Lymphocytes # 0.6 L D-Dimer Sodium 131 L Potassium 5.5 H Chloride 93 L BUN 28 H Creatinine Glucose 237 H POC Glucose (mg/dL) 238 H Total Bilirubin Total Protein Albumin - Diagnostic Findings Chest x-ray: image reviewed CT scan - chest: image reviewed Assessment and Plan Plan: Assessment 1 acute COPD exacerbation with secondary shortness of breath. CT angios the chest shows COPD. There may be some sign of interstitial edema. There is no evidence of an interstitial lung disease or pulmonary embolism. 2 weight gain along with increased lower extremity edema, currently on diuretics. Suspect underlying fluid overload 3 obesity with a BMI of 35.9 and suspected obstructive sleep apnea. 4 childhood asthma 5 diabetes mellitus 6 hypertension 7 depression 8 skin cancers/basal cell carcinoma that has been resected 9 hypothyroidism 10 varicose veins involving lower extremities. 11 glaucoma 12 chronic back pain and degenerative disc disease involving the lumbar spine 13 nephrolithiasis 14 history of falls 15 history of cellulitis of the lower extremities 16 smoker Plan We'll manage acute COPD exacerbation with a combination of DuoNeb nebulized treatments around the clock, IV Solu Medrol and an same time the patient will be off her diuretics with Lasix 40 mg IV push every 8 hours. Monitor electrodes. Monitor the body weight. Monitor pulmonary status. Resume outpatient medications. Doubt pneumonia and the patient is currently on empiric antibiotic coverage with accommodation Rocephin and Zithromax to can be easily subdivided a later stage. Outpatient sleep evaluation regarding obstructive sleep apnea. Echocardiogram is within normal limits. No cervical pulmonary hypertension. We'll continue to follow.
[2018-02-08 16:38] LABS: Glucose,Whole Blood 256 mg/dL (75-99)
[2018-02-08] MEDS: HYDROcodone/APAP 7.5-325MG 1 EACH TAB PO PRN (18:21)
--- NOTE | 2018-02-08 19:13 | P.PN ---
Subjective Progress Note Date: 02/08/18 Progress note being dictated for Dr. Rivera. Interval history: This a 67-year-old female many with acute COPD exacerbation, severe pulmonary hypertension, and multiple other medical issues. No evidence of interstitial lung disease as per pulmonary. Maintained on empiric antibiotics Rocephin, Zithromax. Echo reporting normal LV function, EF 50-55%, no coronary hypertension. Maintained on IV push Lasix, Breathing easier. Maintaining O2 sats of 95% on 2 L nasal cannula. Denies chest pain or palpitations. Objective - Vital Signs Vital signs: Vital Signs Temp 98.2 F 02/08/18 08:00 Pulse 80 02/08/18 17:10 Resp 20 02/08/18 16:00 BP 136/67 02/08/18 16:00 Pulse Ox 95 02/08/18 16:00 Intake & Output 02/07/18 02/08/18 02/08/18 18:59 06:59 18:59 Intake Total 480 Balance 480 Weight 87.543 kg 86.3 kg Intake: Oral 480 Other: # Voids 1 # Bowel Movements 0 - Exam PHYSICAL EXAM: VITAL SIGNS: As above GENERAL: Sitting up at side of bed, no acute distress HEENT: Conjunctivae normal. eyes normal. Oral mucosa moist NECK: No JVD. No thyroid enlargement. No LNs CARDIOVASCULAR: S1, S2 muffled. No murmur RESPIRATION: Breath sounds diminished in the bases. Scattered rhonchi, right basilar crackles, expiratory wheezing. ABDOMEN: Soft, nontender . No guarding. no masses palpable. No ascites,.Bowel sounds heard. LEGS: Positive edema PSYCHIATRY: Alert and oriented -3, mood and affect normal. NERVOUS SYSTEM: Cranial N 2-12 grossly normal. Moves all 4 limbs. Diffuse weakness No focal deficits. Skin: no ulcer no rash - Labs CBC & Chem 7: 02/08/18 06:32 02/08/18 06:32 Labs: Abnormal Lab Results - Last 24 Hours (Table) 02/07/18 02/08/18 02/08/18 Range/Units 18:19 00:37 06:07 RDW (11.5-15.5) % Neutrophils # (1.3-7.7) k/uL Lymphocytes # (1.0-4.8) k/uL D-Dimer 1.19 H (<0.60) mg/L FEU Sodium (137-145) mmol/L Potassium (3.5-5.1) mmol/L Chloride (98-107) mmol/L BUN (7-17) mg/dL Glucose (74-99) mg/dL POC Glucose (mg/dL) 238 H (75-99) mg/dL Hemoglobin A1c 8.1 H (4.0-6.0) % 02/08/18 02/08/18 02/08/18 Range/Units 06:32 06:32 11:40 RDW 15.6 H (11.5-15.5) % Neutrophils # 8.6 H (1.3-7.7) k/uL Lymphocytes # 0.6 L (1.0-4.8) k/uL D-Dimer (<0.60) mg/L FEU Sodium 131 L (137-145) mmol/L Potassium 5.5 H (3.5-5.1) mmol/L Chloride 93 L (98-107) mmol/L BUN 28 H (7-17) mg/dL Glucose 237 H (74-99) mg/dL POC Glucose (mg/dL) 290 H (75-99) mg/dL Hemoglobin A1c (4.0-6.0) % 02/08/18 Range/Units 16:36 RDW (11.5-15.5) % Neutrophils # (1.3-7.7) k/uL Lymphocytes # (1.0-4.8) k/uL D-Dimer (<0.60) mg/L FEU Sodium (137-145) mmol/L Potassium (3.5-5.1) mmol/L Chloride (98-107) mmol/L BUN (7-17) mg/dL Glucose (74-99) mg/dL POC Glucose (mg/dL) 256 H (75-99) mg/dL Hemoglobin A1c (4.0-6.0) % Assessment and Plan Assessment: Acute COPD exacerbation with acute cor pulmonale, normal LV fx. 2. Rule out Pulmonary fibrosis. No interstitial lung disease as per pulmonary. 3. History of chronic asthma, COPD 4. Diabetes mellitus type 2, hemoglobin A1c 8.1 5. Hypertension 6. Obesity, BMI 35.9 Plan: Continue current medication regime ,monitoring and symptomatic treatment. Maintain nebulized bronchodilators, systemic steroids, diuretics, empiric antibiotics. Increase ambulation as tolerated. Elevated blood sugars, Levemir 15 units added to med regime. Close monitoring of Accu-Cheks. The impression and plan of care has been dictated as directed. : I performed a history and examination of this patient, discussed the same with the dictator. I agree with the dictator's note ,documented as a scribe. Any additional findings or plans will be noted.
[2018-02-08] MEDS ORDERED: ASPIRIN 81 MG PO SCH (21:00)
[2018-02-08] MEDS ORDERED: MONTELUKAST 10 MG TAB PO SCH (21:00)
[2018-02-08] MEDS ORDERED: ESCITALOPRAM 10 MG TAB PO SCH (21:00)
[2018-02-08] MEDS ORDERED: INSULIN DETEMIR 100 UNIT/ML 10 ML VIAL SQ SCH (21:00)
[2018-02-08] MEDS ORDERED: ATORVASTATIN 20 MG TAB PO SCH (21:00)
[2018-02-08] MEDS ORDERED: AZITHROMYCIN 500 MG TAB PO SCH (21:00)
[2018-02-08] MEDS ORDERED: FENOFIBRATE 160 MG TAB PO SCH (21:00)
[2018-02-08 21:20] LABS: Glucose,Whole Blood 392 mg/dL (75-99)
[2018-02-09 06:14] LABS: Glucose,Whole Blood 337 mg/dL (75-99)
[2018-02-09] MEDS: LEVOTHYROXINE 100 MCG TAB PO SCH (06:33)
[2018-02-09] MEDS: GLIMEPIRIDE 2 MG TAB PO SCH (06:33)
[2018-02-09] MEDS: methylPREDNISolone SOD SUCCI 125 MG/2 ML VIAL IV SCH (06:33)
[2018-02-09] MEDS: PANTOPRAZOLE 40 MG TABLET PO SCH (06:33)
[2018-02-09] MEDS: LEVOTHYROXINE 75 MCG TAB PO SCH (06:33)
[2018-02-09 06:41] LABS: Anisocytosis Slight; Basophils % (A) 0 %; Eosinophils % (A) 0 %; HCT 37.5 % (34.0-46.0); HGB 11.7 gm/dL (11.4-16.0); Hypochromasia Slight; Lymphocytes # (A) 0.6 k/uL (1.0-4.8); Lymphocytes % (A) 4 %; MCH 26.3 pg (25.0-35.0); MCHC 31.1 g/dL (31.0-37.0); MCV 84.5 fL (80.0-100.0); Mean Platelet Volume 6.1; Monocytes # (A) 0.4 k/uL (0-1.0); Monocytes % (A) 3 %; Neutrophils # (A) 12.8 k/uL (1.3-7.7); Neutrophils % (A) 92 %; Platelet Count 392 k/uL (150-450); RBC 4.44 m/uL (3.80-5.40); WBC 13.9 k/uL (3.8-10.6)
[2018-02-09 07:04] LABS: Anion Gap 14 mmol/L; Blood Urea Nitrogen 36 mg/dL (7-17); Calcium 9.6 mg/dL (8.4-10.2); Carbon Dioxide 27 mmol/L (22-30); Chloride 92 mmol/L (98-107); Glucose 321 mg/dL (74-99); Potassium 5.2 mmol/L (3.5-5.1); Sodium 133 mmol/L (137-145)
[2018-02-09] MEDS: INSULIN ASPART 100 UNIT/ML 1 ML 10 ML VIAL SQ SCH ×4 (07:09→12:20)
[2018-02-09] MEDS: BUDESONIDE 1 MG/2 ML NEBU INHALATION SCH ×2 (08:10→19:03)
[2018-02-09] MEDS: FORMOTEROL FUMARATE 20 MCG/2 ML NEBU INHALATION SCH ×2 (08:10→19:03)
[2018-02-09] MEDS: IPRATROPIUM-ALBUTEROL 3 ML NEB INHALATION SCH ×4 (08:10→19:04)
[2018-02-09] MEDS: FLUTICASONE 50MCG/SPRAY NASAL 16GM EA NOSTRIL SCH (09:20)
[2018-02-09] MEDS: FUROSEMIDE 10 MG/ML 4 ML VIAL IV SCH (09:20)
[2018-02-09] MEDS: LORATADINE 10 MG TAB PO SCH (09:21)
[2018-02-09] MEDS: HEPARIN SODIUM,PORCINE 5,000 UNIT/ML 1 ML VIAL SQ SCH (09:21)
[2018-02-09] MEDS: NICOTINE 14MG/24HR PATCH TRANSDERM SCH (09:22)
[2018-02-09] MEDS: metFORMIN 500 MG TAB PO SCH (09:22)
[2018-02-09] MEDS: LISINOPRIL 10 MG TAB PO SCH (09:23)
[2018-02-09] MEDS ORDERED: predniSONE 20 MG TAB PO SCH (10:00)
--- NOTE | 2018-02-09 11:18 | P.PN ---
Subjective Progress Note Date: 02/09/18 Obese 67-year-old female patient with known history of childhood asthma and history of smoking/COPD in addition to morbid obesity, diabetes mellitus, and hypertension, presented to the hospital because of worsening shortness of breath and increasing body weight and lower extremity edema. No history of any calf pain or tenderness. No angina. No pleurisy or hemoptysis. She has limited congested cough and she is not able to produce any significant sputum. She is already feeling better as the patient got diuresed over the past 24 hours with IV Lasix. Her weight is gradually improving. The patient had a CT angios the chest that showed no evidence of any pulmonary embolism. There is some background COPD on the lung windows. As far as her COPD, the patient is a chronic smoker in she smokes one pack of cigarettes a day. She is on Spiriva as maintenance regarding her COPD. She does not have any oxygen or she has any CPAP machine for any diagnosis of sleep breathing disorder. The echocardiogram showed a preserved LV function with an ejection fraction of 50-55%. Right- sided cardiac surgeons are within normal limits. Diverticular systolic pressure is around 13. No valvular abnormalities noted. The proBNP level was nonelevated. Troponins are negative. Renal function is within normal limits. No significant metabolic alkalosis other blood work. On 02/10/2008 and I'm seeing this patient for a follow-up. She is much improved and her COPD exacerbation subsided. The patient is short of breath. The patient has still some edema in lower extremities bilaterally. The patient is responding nicely to IV Lasix. The patient has been receiving Lasix 40 mg, 80 mg IV push every 8 hours. She is a negative fluid balance. No chest pain. No cough or sputum production. No angina. Doppler of lower extremities is been negative. Echocardiac Jaziel was done and the patient has a preserved LV function without any significant pulmonary hypertension. Objective - Vital Signs Vital signs: Vital Signs Temp 98.2 F 02/09/18 09:15 Pulse 81 02/09/18 09:15 Resp 20 02/09/18 09:15 BP 147/62 02/09/18 09:15 Pulse Ox 93 L 02/09/18 09:15 Intake & Output 02/08/18 02/09/18 02/09/18 18:59 06:59 18:59 Intake Total 480 300 Output Total 300 Balance 480 0 Weight 86.5 kg Intake: Oral 480 300 Output: Urine 300 Other: Voiding Method Toilet Toilet # Voids 1 # Bowel Movements 0 - Exam Morbidly obese, comfortable likely distress. Current BMI 35.9. Head exam was generally normal. There was no scleral icterus or corneal arcus. Mucous membranes were moist. Neck was supple and without jugular venous distension, thyromegaly, or carotid bruits. Carotids were easily palpable bilaterally. There was no adenopathy. Patient has significant crowding of the posterior oropharynx and Mallampati class IV Lung sounds are diminished bilaterally especially in lung bases along with some scattered expiratory wheezes throughout the lung campbell bilaterally. Cardiac exam revealed the PMI to be normally situated and sized. The rhythm was regular and no extrasystoles were noted during several minutes of auscultation. The first and second heart sounds were normal and physiologic splitting of the second heart sound was noted. There were no murmurs, rubs, clicks, or gallops. Abdomen is obese soft nontender. No organomegaly. No direct tenderness or rebound tenderness or guarding. Extremities revealed +1 edema and there is a also clubbing at this point. Examination of the skin revealed no evidence of significant rashes, suspicious appearing nevi or other concerning lesions. Neuro the patient is awake and alert. The patient is no focal neurological deficit at this point. - Labs CBC & Chem 7: 02/09/18 06:18 02/09/18 06:18 Labs: Abnormal Lab Results - Last 24 Hours (Table) 02/08/18 02/08/18 02/08/18 Range/Units 00:37 11:40 16:36 WBC (3.8-10.6) k/uL RDW (11.5-15.5) % Neutrophils # (1.3-7.7) k/uL Lymphocytes # (1.0-4.8) k/uL Sodium (137-145) mmol/L Potassium (3.5-5.1) mmol/L Chloride (98-107) mmol/L BUN (7-17) mg/dL Glucose (74-99) mg/dL POC Glucose (mg/dL) 290 H 256 H (75-99) mg/dL Hemoglobin A1c 8.1 H (4.0-6.0) % 02/08/18 02/09/18 02/09/18 Range/Units 20:48 06:08 06:18 WBC 13.9 H (3.8-10.6) k/uL RDW 16.0 H (11.5-15.5) % Neutrophils # 12.8 H (1.3-7.7) k/uL Lymphocytes # 0.6 L (1.0-4.8) k/uL Sodium (137-145) mmol/L Potassium (3.5-5.1) mmol/L Chloride (98-107) mmol/L BUN (7-17) mg/dL Glucose (74-99) mg/dL POC Glucose (mg/dL) 392 H 337 H (75-99) mg/dL Hemoglobin A1c (4.0-6.0) % 02/09/18 Range/Units 06:18 WBC (3.8-10.6) k/uL RDW (11.5-15.5) % Neutrophils # (1.3-7.7) k/uL Lymphocytes # (1.0-4.8) k/uL Sodium 133 L (137-145) mmol/L Potassium 5.2 H (3.5-5.1) mmol/L Chloride 92 L (98-107) mmol/L BUN 36 H (7-17) mg/dL Glucose 321 H (74-99) mg/dL POC Glucose (mg/dL) (75-99) mg/dL Hemoglobin A1c (4.0-6.0) % Microbiology - Last 24 Hours (Table) 02/07/18 18:19 Blood Culture - Preliminary Blood No Growth after 24 hours Assessment and Plan Plan: Assessment 1 acute COPD exacerbation with secondary shortness of breath. CT angios the chest shows COPD. There may be some sign of interstitial edema. There is no evidence of an interstitial lung disease or pulmonary embolism. 2 weight gain along with increased lower extremity edema, currently on diuretics. Suspect underlying fluid overload 3 obesity with a BMI of 35.9 and suspected obstructive sleep apnea. 4 childhood asthma 5 diabetes mellitus 6 hypertension 7 depression 8 skin cancers/basal cell carcinoma that has been resected 9 hypothyroidism 10 varicose veins involving lower extremities. 11 glaucoma 12 chronic back pain and degenerative disc disease involving the lumbar spine 13 nephrolithiasis 14 history of falls 15 history of cellulitis of the lower extremities 16 smoker Plan Patient is doing better. A COPD exacerbation is subsided. I'm going to take her off the IV Solu Medrol put on a prednisone burst taper. She will continue DuoNeb nebulized treatments around the clock. Also, the patient on IV Lasix. This will be continued to optimize her fluid balance. There is improvement edema in lower extremities bilaterally. The patient had a preserved LV function on the echocardiogram. Also, the patient needs to be checked for home O2 and if candidate she'll be given a home O2 concentrator. We'll check her pulse ox with activity and at rest on room air. We'll continue to follow. Smoking cessation counseling was again done on this patient.
[2018-02-09 11:36] LABS: Glucose,Whole Blood 317 mg/dL (75-99)
[2018-02-09 12:01] VITALS: BP 148/63; RESP 16; TEMP 98.4
[2018-02-09] MEDS: MULTIVITAMINS, THERA 1 EACH TAB PO SCH (12:19)
[2018-02-09] MEDS: HYDROcodone/APAP 7.5-325MG 1 EACH TAB PO PRN (13:24)
[2018-02-09 16:09] VITALS: PULSE 68
--- NOTE | 2018-02-09 17:27 | DS ---
DISCHARGE SUMMARY FINAL DIAGNOSES: 1. Chronic obstructive pulmonary disease acute exacerbation with acute purulent tracheobronchitis. 2. Acute cor pulmonale. 3. Possible pulmonary fibrosis. 4. History of chronic asthma/chronic obstructive pulmonary disease. 5. Diabetes type 2, uncontrolled with hyperglycemia. 6. Hypertension. 7. Obesity with body mass of 35.9. DISCHARGE DISPOSITION: The patient is being discharged in stable condition with guarded prognosis. Total time time taken 35 minutes. The patient is extremely keen on going home at this time. Patient is refusing home O2 as well. HISTORY OF PRESENT ILLNESS: This 67-year-old woman with a past history of multiple medical problems as mentioned earlier, being followed by Dr. Woodruff in the outpatient setting was admitted with COPD acute exacerbation, tracheobronchitis as well as features of cor pulmonale. Patient treated with bronchodilators and antibiotics. Patient improved significantly. Dr. Cho saw the patient. Cardiology saw the patient. 2D echo was noted. Ejection fraction was normal. On exam, vitals are stable. CARDIOVASCULAR: S1, S2 muffled. Respirations: Breath sounds diminished in the bases. A few scattered rhonchi. No crackles. Abdomen is soft. No focal deficits. Central nervous system: No focal deficits. DISCHARGE ADVICE AND MEDICATION: 1. Discharge diet is cardiac diet. 2. Activity limited until followup. 3. Follow up with Dr. Woodruff in 2-3 days. 4. Follow up with Dr. Cho as advised. MEDICATIONS ARE: 1. Ventolin p.r.n. 2. Abilify 5 mg q.h.s. 3. Aspirin 81 mg q.h.s. 4. Zithromax 500 mg daily for 5 days. 5. Symbicort 1 puff b.i.d. 6. Ceftin 500 mg p.o. b.i.d. for 5 days. 7. Vitamin D2 50,000 daily. 8. Lexapro 10 mg q.h.s. 9. Zetia 10 mg q.h.s. 10.Fenofibrate 140 mg q.h.s. 11.Flonase 1 to 2 sprays p.r.n. 12.Lasix 40 mg p.o. daily. 13.Amaryl 2 mg p.o. a.c. breakfast. 14.[place] 7.5 q.6h p.r.n. 15.Motrin 600 mg p.o. t.i.d. 16.Levemir 20 units subcu q.h.s. 17.Accu-Cheks a.c. and q.h.s. result to Dr. Woodruff and adjust outpatient. 18.DuoNeb q.i.d. and p.r.n. 19.Synthroid 175 mcg p.o. daily. 20.Zestril 10 mg p.o. daily. 21.Imodium 8 mg p.o. daily. 22.Claritin 10 mg. 23.Melatonin 5 mg q.h.s. 24.Glucovance 500 mg p.o. b.i.d. 25.Habitrol 14 daily. 26.Prednisone 40 mg daily for 3 day, 30 for 3 days, 20 for 3 days and 10 for 3 days. 27.Zocor 40 mg q.h.s. 28.Trazodone 100 mg p.o. q.h.s. 29.Claritin 10 mg p.o. b.i.d. Once again, the patient is being discharged in stable with guarded prognosis. MMODL / IJN: [id number] /
== END 2018-02-09 20:15 | disposition home or self-care (01) | DRG 192 ==
LOC: EC 17:33 → 6SEL 20:05
PROVIDERS: ADMIT Hospitalist; ATTEND Hospitalist
DX: J44.1 Chronic obstructive pulmonary disease with (acute) exacerbation (principal); J44.0 Chronic obstructive pulmonary disease with (acute) lower respiratory infection; E03.9 Hypothyroidism, unspecified; E11.65 Type 2 diabetes mellitus with hyperglycemia; I10 Essential (primary) hypertension; F17.210 Nicotine dependence, cigarettes, uncomplicated; E66.01 Morbid (severe) obesity due to excess calories; M51.36 Other intervertebral disc degeneration, lumbar region; I83.90 Asymptomatic varicose veins of unspecified lower extremity; H40.9 Unspecified glaucoma; F32.9 Major depressive disorder, single episode, unspecified; F41.9 Anxiety disorder, unspecified; G89.29 Other chronic pain; I27.29 Other secondary pulmonary hypertension; M19.90 Unspecified osteoarthritis, unspecified site; J84.10 Pulmonary fibrosis, unspecified; J20.9 Acute bronchitis, unspecified; I27.81 Cor pulmonale (chronic); I27.20 Pulmonary hypertension, unspecified; Z68.35 Body mass index [BMI] 35.0-35.9, adult; Z79.84 Long term (current) use of oral hypoglycemic drugs; Z79.82 Long term (current) use of aspirin; Z79.890 Hormone replacement therapy; Z79.51 Long term (current) use of inhaled steroids; Z79.899 Other long term (current) drug therapy; Z88.0 Allergy status to penicillin; Z88.8 Allergy status to other drugs, medicaments and biological substances; Z88.1 Allergy status to other antibiotic agents; Z91.040 Latex allergy status; Z90.49 Acquired absence of other specified parts of digestive tract; Z85.828 Personal history of other malignant neoplasm of skin; Z87.442 Personal history of urinary calculi; Z80.9 Family history of malignant neoplasm, unspecified; Z82.5 Family history of asthma and other chronic lower respiratory diseases; Z91.81 History of falling
CPT/HCPCS: 36415; 71046; 71275; 80048; 80053; 82550; 82553; 83036; 83735; 83880; 84484; 85025; 85379; 85610; 85730; 87040; 93005; 93306; 94640; 94760; 96374; 99285

== ENCOUNTER 2018-08-15 21:10 | Emergency (ER) | payer MEDICARE, OTHER ==
[2018-08-15] MEDS ORDERED: IPRATROPIUM-ALBUTEROL 3 ML NEB INHALATION STA (22:20)
[2018-08-15] MEDS ORDERED: ALBUTEROL NEBULIZED 2.5 MG/3 ML INHALATION STA (22:20)
--- NOTE | 2018-08-15 22:28 | ED ---
SOB HPI - General Chief Complaint: Shortness of Breath Stated Complaint: SOB Time Seen by Provider: 08/15/18 21:56 Source: patient Mode of arrival: ambulatory Limitations: no limitations - History of Present Illness Initial Comments: This patient is 68-year-old woman who presents to be evaluated for constellation of complaints. She states that she is having shortness of breath that has worsened over past number of days to weeks. In addition over the past week she has noticed that her left leg is swelling and there is redness developing, she states similar to previous episode of cellulitis. Finally she did complain that she has not been able sleep much for about past 2 months. MD Complaint: shortness of breath, cough -: week(s) Consistency: constant Improves With: nothing Worsens With: lying flat Known History Of: COPD, asthma Associated Symptoms: denies other symptoms Treatments Prior to Arrival: none - Related Data Home Medications Medication Instructions Recorded Confirmed Aspirin 81 mg PO HS 02/06/14 02/07/18 Escitalopram [Lexapro] 10 mg PO HS 02/06/14 02/07/18 Fenofibrate Nanocrystallized 145 mg PO HS 02/06/14 02/07/18 [Tricor] HYDROcodone/APAP 7.5-325MG [[place] 1 tab PO Q6H PRN 02/06/14 02/07/18 7.5-325] Zafirlukast [Accolate] 20 mg PO BID 02/06/14 02/07/18 Ergocalciferol [Vitamin D2 50,000 unit PO Q7D 12/10/14 02/07/18 (DRISDOL)] Ezetimibe [Zetia] 10 mg PO HS 12/10/14 02/07/18 Levothyroxine Sodium [Synthroid] 175 mcg PO DAILY 12/10/14 02/07/18 Loperamide [Imodium] 8 mg PO DAILY PRN 12/10/14 02/07/18 Melatonin 5 mg PO HS 12/10/14 02/07/18 Loratadine [Claritin] 10 mg PO DAILY 09/06/15 02/07/18 Simvastatin [Zocor] 40 mg PO HS 09/06/15 02/07/18 ARIPiprazole [Abilify] 5 mg PO HS 02/07/18 02/07/18 Fluticasone Nasal [place] [Flonase 1 - 2 spray EA NOSTRIL DAILY 02/07/18 02/07/18 Nasal [place]] Furosemide [Lasix] 40 mg PO DAILY 02/07/18 02/07/18 Glimepiride [Amaryl] 2 mg PO AC-[id number] 02/07/18 02/07/18 Ibuprofen [Motrin] 600 mg PO BID PRN 02/07/18 02/07/18 Lisinopril [Zestril] 10 mg PO DAILY 02/07/18 02/07/18 metFORMIN HCL [Glucophage] 500 mg PO BID 02/07/18 02/07/18 traZODone HCL 100 mg PO HS PRN 02/07/18 02/07/18 Previous Rx's Medication Instructions Recorded Albuterol Inhaler [Ventolin Hfa 2 puff INHALATION RT-Q4H PRN #0 09/07/15 Inhaler] Azithromycin [Zithromax] 500 mg PO Q24H #5 tab 02/09/18 Budesonide/Formoterol Fumarate 1 puff IH BID #1 hfa.aer.ad 02/09/18 [Symbicort 160-4.5 Mcg Inhaler] Cefuroxime Axetil [Ceftin] 500 mg PO BID #8 tab 02/09/18 Insulin Detemir [Levemir] 20 unit SQ HS #1 syr 02/09/18 Ipratropium-Albuterol Nebulize 3 ml INHALATION RT-QID #120 02/09/18 [Duoneb 0.5 mg-3 mg/3 ml Soln] ampul.neb Nicotine 14Mg/24Hr Patch [Habitrol] 1 patch TRANSDERM DAILY #30 patch 02/09/18 predniSONE 10 mg PO DIRECTED #30 tab 02/09/18 Allergies Allergy/AdvReac Type Severity Reaction Status Date / Time adhesive Allergy Rash/Hives Verified 08/15/18 21:15 ciprofloxacin [From Cipro] Allergy Rash/Hives Verified 08/15/18 21:15 ciprofloxacin HCl Allergy Rash/Hives Verified 08/15/18 21:15 [From Cipro] latex Allergy Rash/Hives Verified 08/15/18 21:15 nitrofurantoin Allergy Rash/Hives Verified 08/15/18 21:15 [From Macrobid] nitrofurantoin Allergy Rash/Hives Verified 08/15/18 21:15 macrocrystalline [From Macrobid] Penicillins Allergy Rash/Hives Verified 08/15/18 21:15 propoxyphene HCl Allergy Rash/Hives Verified 08/15/18 21:15 [From Darvon] propoxyphene napsylate Allergy Unknown Verified 08/15/18 21:15 [From Darvocet-N] Review of Systems ROS Statement: Those systems with pertinent positive or pertinent negative responses have been documented in the HPI. ROS Other: All systems not noted in ROS Statement are negative. Constitutional: Denies: fever, chills, weakness Respiratory: Reports: cough, dyspnea, wheezes. Denies: hemoptysis Cardiovascular: Reports: dyspnea on exertion, orthopnea, edema. Denies: chest pain, palpitations, syncope Gastrointestinal: Denies: abdominal pain, nausea, vomiting, diarrhea, constipation Genitourinary: Denies: dysuria Musculoskeletal: Denies: back pain Skin: Reports: change in color (Left lower extremity). Denies: rash Neurological: Denies: weakness, numbness, paresthesias Past Medical History Past Medical History: Asthma, Chest Pain / Angina, COPD, Diabetes Mellitus, Hypertension, Osteoarthritis (OA), Respiratory Disorder, Skin Disorder, Thyroid Disorder Additional Past Medical History / Comment(s): Obesity (BMI 35) COPD, asthma, diabetes , depression, 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 History of Any Multi-Drug Resistant Organisms: None Reported Past Surgical History: Appendectomy, Section, Cholecystectomy, Orthopedic Surgery, Tubal Ligation Additional Past Surgical History / Comment(s): LASER SX JETHRO EYES FOR GLAUCOMA. RT KNEE ARTHROSCOPY. UNDERWENT PERCUTANEOUS NEPHROSTOLITHOTOMY Past Anesthesia/Blood Transfusion Reactions: No Reported Reaction Past Psychological History: Anxiety, Depression Smoking Status: Current every day smoker - Past Family History Mother Additional Family Medical History / Comment(s): emphysema, heart valve problems , in her slepp. Brother(s) Family Medical History: Cancer Additional Family Medical History / Comment(s): from oral cancer Father Brother(s) Family Medical History: Cancer Additional Family Medical History / Comment(s): heart disease General Exam Limitations: no limitations General appearance: alert, in no apparent distress, obese Head exam: Present: atraumatic Eye exam: Present: normal appearance. Absent: scleral icterus, conjunctival injection Respiratory exam: Present: wheezes. Absent: respiratory distress, rales, rhonchi, stridor, accessory muscle use Cardiovascular Exam: Present: regular rate, normal rhythm, normal heart sounds. Absent: systolic murmur, diastolic murmur, rubs, gallop GI/Abdominal exam: Present: soft. Absent: distended, tenderness, guarding, rebound Extremities exam: Present: normal inspection, full ROM, tenderness, normal capillary refill, pedal edema, other (Patient has excoriations near the ankle. There is erythema, warmth, circumferentially just proximal to the left ankle. There is a little mild erythema and warmth to the right ankle though not circumferential.) Back exam: Present: normal inspection. Absent: CVA tenderness (R), CVA tenderness (L) Neurological exam: Present: alert Skin exam: Present: warm, dry, intact, erythema Course Vital Signs 08/15/18 08/15/18 08/15/18 21:11 22:39 22:49 Temperature 98.3 F Pulse Rate 78 77 79 Respiratory 28 H 18 18 Rate Blood Pressure 195/82 O2 Sat by Pulse 92 L Oximetry 08/15/18 08/15/18 22:57 23:55 Temperature Pulse Rate 79 88 Respiratory 22 Rate Blood Pressure 166/71 O2 Sat by Pulse 92 L Oximetry Medical Decision Making - Medical Decision Making Patient refused steroids as treatment for the COPD. I had completed the patient's admission orders and then she states she was going to leave A because she does not like being in the hospital anyways. We discussed the possibility of worsening of the infections and the COPD patient states she will deftly return if there is any worsening. - Lab Data Result diagrams: 08/15/18 21:40 08/15/18 21:40 Lab Results 08/15/18 08/15/18 08/15/18 Range/Units 21:40 21:40 21:40 WBC 12.9 H (3.8-10.6) k/uL RBC 5.01 (3.80-5.40) m/uL Hgb 13.5 (11.4-16.0) gm/dL Hct 42.8 (34.0-46.0) % MCV 85.4 (80.0-100.0) fL MCH 27.0 (25.0-35.0) pg MCHC 31.6 (31.0-37.0) g/dL RDW 16.4 H (11.5-15.5) % Plt Count 361 (150-450) k/uL Neutrophils % 78 % Lymphocytes % 11 % Monocytes % 7 % Eosinophils % 2 % Basophils % 0 % Neutrophils # 10.1 H (1.3-7.7) k/uL Lymphocytes # 1.4 (1.0-4.8) k/uL Monocytes # 0.9 (0-1.0) k/uL Eosinophils # 0.3 (0-0.7) k/uL Basophils # 0.0 (0-0.2) k/uL Anisocytosis Slight PT (9.0-12.0) sec INR (<1.2) APTT (22.0-30.0) sec D-Dimer (<0.60) mg/L FEU Sodium 133 L (137-145) mmol/L Potassium 5.1 (3.5-5.1) mmol/L Chloride 97 L (98-107) mmol/L Carbon Dioxide 27 (22-30) mmol/L Anion Gap 9 mmol/L BUN 24 H (7-17) mg/dL Creatinine 0.62 (0.52-1.04) mg/dL Est GFR (CKD-EPI)AfAm >90 (>60 ml/min/1.73 sqM) Est GFR (CKD-EPI)NonAf >90 (>60 ml/min/1.73 sqM) Glucose 259 H (74-99) mg/dL Calcium 9.3 (8.4-10.2) mg/dL Total Bilirubin 0.2 (0.2-1.3) mg/dL AST 17 (14-36) U/L ALT 31 (9-52) U/L Alkaline Phosphatase 77 (38-126) U/L Total Creatine Kinase 49 (30-135) U/L CK-MB (CK-2) 1.8 (0.0-2.4) ng/mL CK-MB (CK-2) Rel Index 3.7 Troponin I <0.012 (0.000-0.034) ng/mL NT-Pro-B Natriuret Pep pg/mL Total Protein 6.2 L (6.3-8.2) g/dL Albumin 3.4 L (3.5-5.0) g/dL Urine Color Urine Appearance (Clear) Urine pH (5.0-8.0) Ur Specific [place] (1.001-1.035) Urine Protein (Negative) Urine Glucose (UA) (Negative) Urine Ketones (Negative) Urine Blood (Negative) Urine Nitrite (Negative) Urine Bilirubin (Negative) Urine Urobilinogen (<2.0) mg/dL Ur Leukocyte Esterase (Negative) Urine RBC (0-5) /hpf Urine WBC (0-5) /hpf Urine WBC Clumps (None) /hpf Ur Squamous Epith Cells (0-4) /hpf Urine Bacteria (None) /hpf 08/15/18 08/15/18 08/15/18 Range/Units 21:40 21:40 21:40 WBC (3.8-10.6) k/uL RBC (3.80-5.40) m/uL Hgb (11.4-16.0) gm/dL Hct (34.0-46.0) % MCV (80.0-100.0) fL MCH (25.0-35.0) pg MCHC (31.0-37.0) g/dL RDW (11.5-15.5) % Plt Count (150-450) k/uL Neutrophils % % Lymphocytes % % Monocytes % % Eosinophils % % Basophils % % Neutrophils # (1.3-7.7) k/uL Lymphocytes # (1.0-4.8) k/uL Monocytes # (0-1.0) k/uL Eosinophils # (0-0.7) k/uL Basophils # (0-0.2) k/uL Anisocytosis PT 10.3 (9.0-12.0) sec INR 1.0 (<1.2) APTT 24.7 (22.0-30.0) sec D-Dimer 1.26 H (<0.60) mg/L FEU Sodium (137-145) mmol/L Potassium (3.5-5.1) mmol/L Chloride (98-107) mmol/L Carbon Dioxide (22-30) mmol/L Anion Gap mmol/L BUN (7-17) mg/dL Creatinine (0.52-1.04) mg/dL Est GFR (CKD-EPI)AfAm (>60 ml/min/1.73 sqM) Est GFR (CKD-EPI)NonAf (>60 ml/min/1.73 sqM) Glucose (74-99) mg/dL Calcium (8.4-10.2) mg/dL Total Bilirubin (0.2-1.3) mg/dL AST (14-36) U/L ALT (9-52) U/L Alkaline Phosphatase (38-126) U/L Total Creatine Kinase (30-135) U/L CK-MB (CK-2) (0.0-2.4) ng/mL CK-MB (CK-2) Rel Index Troponin I (0.000-0.034) ng/mL NT-Pro-B Natriuret Pep 323 pg/mL Total Protein (6.3-8.2) g/dL Albumin (3.5-5.0) g/dL Urine Color Light Yellow Urine Appearance Cloudy H (Clear) Urine pH 7.0 (5.0-8.0) Ur Specific [place] 1.010 (1.001-1.035) Urine Protein 2+ H (Negative) Urine Glucose (UA) Negative (Negative) Urine Ketones Negative (Negative) Urine Blood Small H (Negative) Urine Nitrite Negative (Negative) Urine Bilirubin Negative (Negative) Urine Urobilinogen <2.0 (<2.0) mg/dL Ur Leukocyte Esterase Large H (Negative) Urine RBC 20 H (0-5) /hpf Urine WBC >182 H (0-5) /hpf Urine WBC Clumps Moderate H (None) /hpf Ur Squamous Epith Cells 2 (0-4) /hpf Urine Bacteria Many H (None) /hpf - EKG Data -: EKG Interpreted by Vt EKG shows normal: sinus rhythm, axis (Left axis deviation.), intervals (Normal) , QRS complexes (Normal), ST-T waves (Normal) Rate: normal (Rate 77 bpm) Disposition Clinical Impression: COPD exacerbation, UTI (urinary tract infection), Cellulitis Disposition: Left Against Medical Advice Condition: Poor Is patient prescribed a controlled substance at d/c from ED?: No Referrals: Ken Woodruff MD [Primary Care Provider] - 1-2 days
[2018-08-15 22:40] LABS: Anisocytosis Slight; Basophils % (A) 0 %; Eosinophils # (A) 0.3 k/uL (0-0.7); Eosinophils % (A) 2 %; HCT 42.8 % (34.0-46.0); HGB 13.5 gm/dL (11.4-16.0); Lymphocytes # (A) 1.4 k/uL (1.0-4.8); Lymphocytes % (A) 11 %; MCHC 31.6 g/dL (31.0-37.0); MCV 85.4 fL (80.0-100.0); Mean Platelet Volume 6.8; Monocytes # (A) 0.9 k/uL (0-1.0); Monocytes % (A) 7 %; Neutrophils # (A) 10.1 k/uL (1.3-7.7); Neutrophils % (A) 78 %; Platelet Count 361 k/uL (150-450); RBC 5.01 m/uL (3.80-5.40); RDW 16.4 % (11.5-15.5); WBC 12.9 k/uL (3.8-10.6)
[2018-08-15 22:51] LABS: Appearance,Urine Cloudy (Clear); Bacteria,Urine Many /hpf; Bilirubin,Urine Negative (Negative); Blood,Urine Small (Negative); Color,Urine Light Yellow; Glucose,Urine (UA) Negative (Negative); Ketones,Urine Negative (Negative); Leukocyte Esterase,Urine Large (Negative); Nitrite,Urine Negative (Negative); Protein,Urine 2+ (Negative); RBC,Urine 20 /hpf (0-5); Squamous Epithelial Cell,Urine 2 /hpf (0-4); Urobilinogen,Urine <2.0 mg/dL (<2.0); WBC,Urine >182 /hpf (0-5)
[2018-08-15 22:55] LABS: ALT 31 U/L (9-52); AST 17 U/L (14-36); Albumin 3.4 g/dL (3.5-5.0); Alkaline Phosphatase 77 U/L (38-126); Anion Gap 9 mmol/L; Blood Urea Nitrogen 24 mg/dL (7-17); Calcium 9.3 mg/dL (8.4-10.2); Carbon Dioxide 27 mmol/L (22-30); Chloride 97 mmol/L (98-107); Glucose 259 mg/dL (74-99); Potassium 5.1 mmol/L (3.5-5.1); Sodium 133 mmol/L (137-145); Total Bilirubin 0.2 mg/dL (0.2-1.3); Total Protein 6.2 g/dL (6.3-8.2)
[2018-08-15 22:56] LABS: Creatine Kinase 49 U/L (30-135)
[2018-08-15 23:08] LABS: Creatine Kinase MB 1.8 ng/mL (0.0-2.4); Troponin I <0.012 ng/mL (0.000-0.034)
[2018-08-15 23:36] LABS: Partial Thromboplastin Time 24.7 sec (22.0-30.0); Prothrombin Time 10.3 sec (9.0-12.0)
--- NOTE | 2018-08-15 23:38 | XR ---
EXAMINATION TYPE: XR chest 2V DATE OF EXAM: 08/15/2018 COMPARISON: NONE HISTORY: Vertigo rebreathing TECHNIQUE: Frontal and lateral views of the chest are obtained. FINDINGS: Heart is borderline enlarged. There is some pulmonary interstitial edema. Thoracic aorta i s atheromatous. There are chest leads. There is no pleural effusion. IMPRESSION: Increased pulmonary interstitial density compared to last exam consistent with mild juany estion. No overt heart failure.
[2018-08-15 23:52] LABS: D-Dimer 1.26 mg/L FEU (<0.60)
--- NOTE | 2018-08-16 01:01 | CT ---
EXAMINATION TYPE: CT chest angio for PE DATE OF EXAM: 08/16/2018 COMPARISON: 02/07/2018 HISTORY: elevated D-dimer, SOB, R/O PE CT DLP: 414.2 mGycm Automated exposure control for dose reduction was used. CONTRAST: CT Chest for pulmonary embolism performed with with IV Contrast, patient injected with 100 mL of Isov ue 370. There are 3-D post processed images. FINDINGS: There is some patchy subsegmental atelectasis and scarring at the lung bases. There is no pleural eff usion. Heart appears enlarged. There is no pericardial effusion. Thoracic aorta is atheromatous. There is no evidence of aneurysm or dissection. There is normal contr ast opacification of the pulmonary arteries. I see no filling defects. There are no hilar masses. The re is no mediastinal adenopathy. There are peritracheal lymph nodes and measure up to 1 cm. The bony thorax is intact. IMPRESSION: No evidence of pulmonary embolism. There is some patchy atelectasis and interstitial infiltrates in t he lower lobes mainly on the left side that is increased compared to old exam. Mild cardiomegaly.
[2018-08-16] MEDS ORDERED: ALBUTEROL NEBULIZED 2.5 MG/3 ML INHALATION PRN (02:05)
[2018-08-16] MEDS ORDERED: VANCOMYCIN IV PER PHARMACY 1 EACH MISC MISCELLANE PRN (02:09)
[2018-08-16] MEDS ORDERED: traZODone HCL 100 MG TAB PO PRN (02:09)
[2018-08-16] MEDS ORDERED: HYDROcodone/APAP 7.5-325MG 1 EACH TAB PO PRN (02:09)
[2018-08-16] MEDS ORDERED: predniSONE 10 MG TAB PO SCH (02:15)
[2018-08-16] MEDS ORDERED: NICOTINE 14MG/24HR PATCH TRANSDERM SCH (02:15)
[2018-08-16] MEDS ORDERED: VANCOMYCIN 1,500 MG in SODIUM CHLORIDE 0.9% 250 ML IVPB ONE (02:30)
[2018-08-16 02:38] VITALS: BP 135/58; PULSE 82; RESP 20; TEMP 98.2
[2018-08-16] MEDS ORDERED: GLIMEPIRIDE 2 MG TAB PO SCH (07:30)
[2018-08-16] MEDS ORDERED: IPRATROPIUM-ALBUTEROL 3 ML NEB INHALATION SCH (08:00)
[2018-08-16] MEDS ORDERED: SYMBICORT 80-4.5 MCG INHALER INHALATION SCH (08:00)
[2018-08-16] MEDS ORDERED: SYMBICORT 160-4.5 MCG INHALER INHALATION SCH (09:00)
[2018-08-16] MEDS ORDERED: FUROSEMIDE 20 MG TAB PO SCH (09:00)
[2018-08-16] MEDS ORDERED: metFORMIN 500 MG TAB PO SCH (09:00)
[2018-08-16] MEDS ORDERED: NON-FORMULARY DRUG (Levothyroxine Sodium [Synthroid] 175 MCG) PO SCH (09:00)
[2018-08-16] MEDS ORDERED: ZAFIRLUKAST 20 MG PO SCH (09:00)
[2018-08-16] MEDS ORDERED: LISINOPRIL 10 MG TAB PO SCH (09:00)
[2018-08-16] MEDS ORDERED: MELATONIN 5 MG TABLET PO SCH (21:00)
[2018-08-16] MEDS ORDERED: EZETIMIBE 10 MG TAB PO SCH (21:00)
[2018-08-16] MEDS ORDERED: FENOFIBRATE NANOCRYSTALLIZED 145 MG PO SCH (21:00)
[2018-08-16] MEDS ORDERED: ESCITALOPRAM 10 MG TAB PO SCH (21:00)
[2018-08-16] MEDS ORDERED: ASPIRIN 81 MG PO SCH (21:00)
[2018-08-16] MEDS ORDERED: NON-FORMULARY DRUG (Simvastatin 40 MG) PO SCH (21:00)
[2018-08-16] MEDS ORDERED: INSULIN DETEMIR 100 UNIT/ML 10 ML VIAL SQ SCH (21:00)
[2018-08-16] MEDS ORDERED: ARIPiprazole 5 MG TAB PO SCH (21:00)
== END 2018-08-16 02:10 | disposition left against medical advice (07) ==
LOC: EC 21:10 → UNDOADMIN 08-16 02:15 → 4SSUR 08-16 02:15
DX: J44.1 Chronic obstructive pulmonary disease with (acute) exacerbation (principal); N39.0 Urinary tract infection, site not specified; L03.115 Cellulitis of right lower limb; E11.9 Type 2 diabetes mellitus without complications; I10 Essential (primary) hypertension; E03.9 Hypothyroidism, unspecified; F41.9 Anxiety disorder, unspecified; F32.9 Major depressive disorder, single episode, unspecified; F17.200 Nicotine dependence, unspecified, uncomplicated; E66.9 Obesity, unspecified; Z68.35 Body mass index [BMI] 35.0-35.9, adult; Z85.828 Personal history of other malignant neoplasm of skin; Z82.5 Family history of asthma and other chronic lower respiratory diseases; Z82.49 Family history of ischemic heart disease and other diseases of the circulatory system; Z79.82 Long term (current) use of aspirin; Z79.84 Long term (current) use of oral hypoglycemic drugs; Z79.899 Other long term (current) drug therapy; Z91.048 Other nonmedicinal substance allergy status; Z88.1 Allergy status to other antibiotic agents; Z91.040 Latex allergy status; Z88.0 Allergy status to penicillin; Z88.5 Allergy status to narcotic agent; Z53.29 Procedure and treatment not carried out because of patient's decision for other reasons
CPT/HCPCS: 99285; 96365; 36415; 94640 ×2; 93005; 85379; 83880; 80053; 82550; 82553; 84484; 85025; 85610; 85730; 81001; 71046; 71275; J0696; Q9967

== ENCOUNTER 2018-09-06 16:19 | Inpatient (IN) | payer MEDICARE, OTHER ==
--- NOTE | 2018-09-06 17:54 | ED ---
Extremity Problem HPI - General Chief complaint: Extremity Problem,Nontraumatic Stated complaint: Leg infection Time Seen by Provider: 09/06/18 17:02 Source: patient, RN notes reviewed, old records reviewed Mode of arrival: ambulatory Limitations: no limitations - History of Present Illness Initial comments: This is a 68-year-old female the ER for evaluation. This patient was essay for evaluation regards to left lower extremity edema, patient also complains of shortness of breath. Occasional fevers. Patient has significant medical history for diabetes and COPD as well as recurrent left lower extremity extremity and peripheral vascular disease. Patient sent in by primary care for evaluation regarding significant extremity symptoms. Patient is currently on Bactrim for UTI MD Complaint: extremity pain (Left lower), extremity swelling (Left lower) -: days(s) Location: left, lower extremity History of Same: Yes -: Yes fever Radiation: none Severity scale (1-10): 10 (swelling is severe and painful) Quality: aching Improves with: nothing Worsens with: nothing Associated Symptoms: shortness of breath, fever - Related Data Home Medications Medication Instructions Recorded Confirmed Aspirin 81 mg PO HS 02/06/14 09/06/18 HYDROcodone/APAP 7.5-325MG [[place] 1 tab PO Q6H PRN 02/06/14 09/06/18 7.5-325] Zafirlukast [Accolate] 20 mg PO BID 02/06/14 09/06/18 Ergocalciferol [Vitamin D2 50,000 unit PO Q7D 12/10/14 09/06/18 (DRISDOL)] Levothyroxine Sodium [Synthroid] 175 mcg PO DAILY 12/10/14 09/06/18 ARIPiprazole [Abilify] 5 mg PO HS 02/07/18 09/06/18 Fluticasone Nasal [place] [Flonase 1 - 2 spray EA NOSTRIL DAILY 02/07/18 09/06/18 Nasal [place]] Furosemide [Lasix] 40 mg PO DAILY 02/07/18 09/06/18 Glimepiride [Amaryl] 2 mg PO BID 02/07/18 09/06/18 metFORMIN HCL [Glucophage] 500 mg PO BID 02/07/18 09/06/18 traZODone HCL 100 mg PO HS PRN 02/07/18 09/06/18 Sulfamethox-Tmp 800-160Mg [Bactrim 1 tab PO Q12HR 09/06/18 09/06/18 DS 800-160 mg] Previous Rx's Medication Instructions Recorded Albuterol Inhaler [Ventolin Hfa 2 puff INHALATION RT-Q4H PRN #0 09/07/15 Inhaler] Insulin Detemir [Levemir] 20 unit SQ HS #1 syr 02/09/18 Ipratropium-Albuterol Nebulize 3 ml INHALATION RT-QID #120 02/09/18 [Duoneb 0.5 mg-3 mg/3 ml Soln] ampul.neb Allergies Allergy/AdvReac Type Severity Reaction Status Date / Time adhesive Allergy Rash/Hives Verified 09/06/18 17:37 ciprofloxacin [From Cipro] Allergy Rash/Hives Verified 09/06/18 17:37 ciprofloxacin HCl Allergy Rash/Hives Verified 09/06/18 17:37 [From Cipro] latex Allergy Rash/Hives Verified 09/06/18 17:37 nitrofurantoin Allergy Rash/Hives Verified 09/06/18 17:37 [From Macrobid] nitrofurantoin Allergy Rash/Hives Verified 09/06/18 17:37 macrocrystalline [From Macrobid] Penicillins Allergy Rash/Hives Verified 09/06/18 17:37 propoxyphene HCl Allergy Rash/Hives Verified 09/06/18 17:37 [From Darvon] propoxyphene napsylate Allergy Unknown Verified 09/06/18 17:37 [From Darvocet-N] Review of Systems ROS Statement: Those systems with pertinent positive or pertinent negative responses have been documented in the HPI. ROS Other: All systems not noted in ROS Statement are negative. Past Medical History Past Medical History: Asthma, Chest Pain / Angina, COPD, Diabetes Mellitus, Hypertension, Osteoarthritis (OA), Respiratory Disorder, Skin Disorder, Thyroid Disorder Additional Past Medical History / Comment(s): Obesity (BMI 35) COPD, asthma, diabetes , depression, 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 History of Any Multi-Drug Resistant Organisms: None Reported Past Surgical History: Appendectomy, Section, Cholecystectomy, Orthopedic Surgery, Tubal Ligation Additional Past Surgical History / Comment(s): LASER SX JETHRO EYES FOR GLAUCOMA. RT KNEE ARTHROSCOPY. UNDERWENT PERCUTANEOUS NEPHROSTOLITHOTOMY Past Anesthesia/Blood Transfusion Reactions: No Reported Reaction Past Psychological History: Anxiety, Depression Smoking Status: Current every day smoker Past Alcohol Use History: None Reported Past Drug Use History: None Reported - Past Family History Mother Additional Family Medical History / Comment(s): emphysema, heart valve problems , in her slepp. Brother(s) Family Medical History: Cancer Additional Family Medical History / Comment(s): from oral cancer Father Brother(s) Family Medical History: Cancer Additional Family Medical History / Comment(s): heart disease General Exam Limitations: no limitations General appearance: alert, in no apparent distress Head exam: Present: atraumatic, normocephalic, normal inspection Eye exam: Present: normal appearance, PERRL, EOMI. Absent: scleral icterus, conjunctival injection, periorbital swelling ENT exam: Present: normal exam, mucous membranes moist Neck exam: Present: normal inspection. Absent: tenderness, meningismus, lymphadenopathy Respiratory exam: Present: normal lung sounds bilaterally. Absent: respiratory distress, wheezes, rales, rhonchi, stridor Cardiovascular Exam: Present: regular rate, normal rhythm, normal heart sounds. Absent: systolic murmur, diastolic murmur, rubs, gallop, clicks GI/Abdominal exam: Present: soft, normal bowel sounds. Absent: distended, tenderness, guarding, rebound, rigid Extremities exam: Present: normal inspection, full ROM, normal capillary refill , other (Significant left lower extremity edema, cellulitis with ulcer significant tenderness and pain.). Absent: tenderness, pedal edema, joint swelling, calf tenderness Back exam: Present: normal inspection Neurological exam: Present: alert, oriented X3, CN II-XII intact Psychiatric exam: Present: normal affect, normal mood Skin exam: Present: warm, dry, intact, normal color. Absent: rash Course Vital Signs 09/06/18 16:22 Temperature 97.8 F Pulse Rate 98 Respiratory 26 H Rate Blood Pressure 161/61 O2 Sat by Pulse 97 Oximetry - Reevaluation(s) Reevaluation #1: 09/06/18 18:07 Medical record is reviewed Reevaluation #2: 01/18/19 18:07 Patient does admit to shortness of breath is improved with breathing treatment Medical Decision Making - Medical Decision Making 68 female the ER for evaluation, patient was essay for evaluation regarding left lower extremity infection and swelling. History of significant lower [place]y cellulitis with ulcer, diabetes. COPD. 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
[2018-09-06] MEDS ORDERED: MORPHINE SULFATE 4 MG/ML SYRINGE IV STA (18:01)
[2018-09-06] MEDS ORDERED: SODIUM CHLORIDE 0.9% 1,000 ML IV STA (18:01)
[2018-09-06] MEDS ORDERED: cefTRIAXone 2,000 MG in SODIUM CHLORIDE 0.9% 100 ML IVPB STA (18:12)
[2018-09-06] MEDS ORDERED: MORPHINE SULFATE 4 MG/ML SYRINGE IVP PRN (18:25)
[2018-09-06] MEDS ORDERED: MORPHINE SULFATE 4 MG/ML SYRINGE IVP STA (18:25)
[2018-09-06 18:33] LABS: Basophils % (A) 0 %; Eosinophils # (A) 0.3 k/uL (0-0.7); Eosinophils % (A) 2 %; HCT 36.7 % (34.0-46.0); HGB 11.5 gm/dL (11.4-16.0); Lymphocytes # (A) 1.1 k/uL (1.0-4.8); Lymphocytes % (A) 9 %; MCHC 31.3 g/dL (31.0-37.0); MCV 86.3 fL (80.0-100.0); Mean Platelet Volume 7.1; Monocytes # (A) 0.7 k/uL (0-1.0); Monocytes % (A) 5 %; Neutrophils # (A) 10.3 k/uL (1.3-7.7); Neutrophils % (A) 81 %; Platelet Count 385 k/uL (150-450); RBC 4.25 m/uL (3.80-5.40); WBC 12.6 k/uL (3.8-10.6)
[2018-09-06 18:42] LABS: Partial Thromboplastin Time 24.6 sec (22.0-30.0); Prothrombin Time 10.3 sec (9.0-12.0)
[2018-09-06 18:44] LABS: Albumin 3.5 g/dL (3.5-5.0); Calcium 9.3 mg/dL (8.4-10.2); Magnesium 1.7 mg/dL (1.6-2.3); Phosphorus 5.1 mg/dL (2.5-4.5); Potassium 4.9 mmol/L (3.5-5.1); Total Bilirubin 0.2 mg/dL (0.2-1.3); Total Protein 6.3 g/dL (6.3-8.2)
[2018-09-06 18:58] LABS: Creatine Kinase MB 2.6 ng/mL (0.0-2.4)
--- NOTE | 2018-09-06 18:58 | XR ---
EXAMINATION TYPE: XR chest 2V DATE OF EXAM: 09/06/2018 COMPARISON: 08/15/2018 HISTORY: Left leg infection TECHNIQUE: Frontal and lateral views of the chest are obtained. FINDINGS: Heart is enlarged. There is no heart failure. Lungs are clear of consolidation. There is n o pleural effusion. Thoracic aorta is atheromatous. Bony thorax is intact. IMPRESSION: Cardiomegaly. No heart failure. There is improved aeration of the lower lung campbell comp ared to last exam.
[2018-09-06 19:00] LABS: Troponin I 0.06 ng/mL (0.000-0.034)
[2018-09-06] MEDS ORDERED: IPRATROPIUM-ALBUTEROL 3 ML NEB INHALATION STA (19:10)
--- NOTE | 2018-09-06 19:25 | US ---
EXAMINATION TYPE: US venous doppler duplex LE LT DATE OF EXAM: 09/06/2018 6:08 PM COMPARISON: NONE CLINICAL HISTORY: Pain. Left leg swelling SIDE PERFORMED: Left TECHNIQUE: The lower extremity deep venous system is examined utilizing real time linear array sonog chacorta with graded compression, doppler sonography and color-flow sonography. VESSELS IMAGED: External Iliac Vein (EIV) Common Femoral Vein Deep Femoral Vein Greater Saphenous Vein * Femoral Vein Popliteal Vein Small Saphenous Vein * Proximal Calf Veins (* superficial vessels) Left Leg: Negative for DVT as visualized IMPRESSION: No sign of deep venous thrombosis in the left leg.
[2018-09-06] MEDS ORDERED: IPRATROPIUM-ALBUTEROL 3 ML NEB INHALATION SCH ×2 (20:00)
[2018-09-06 21:22] VITALS: BMI 35.9
[2018-09-06 21:44] LABS: Appearance,Urine Clear (Clear); Bilirubin,Urine Negative (Negative); Blood,Urine Negative (Negative); Color,Urine Yellow; Glucose,Urine (UA) Negative (Negative); Hyaline Casts,Urine 4 /lpf (0-2); Ketones,Urine Negative (Negative); Leukocyte Esterase,Urine Large (Negative); Nitrite,Urine Negative (Negative); PH, Urine 5.5 (5.0-8.0); Protein,Urine Negative (Negative); RBC,Urine <1 /hpf (0-5); Specific Gravity,Urine 1.011 (1.001-1.035); Squamous Epithelial Cell,Urine 1 /hpf (0-4); Urobilinogen,Urine <2.0 mg/dL (<2.0); WBC,Urine 37 /hpf (0-5)
[2018-09-06] MEDS ORDERED: ACETAMINOPHEN TAB 500 MG TAB PO PRN (22:49)
--- NOTE | 2018-09-06 23:57 | HP ---
HISTORY AND PHYSICAL DATE OF SERVICE: 09/06/2018. CHIEF COMPLAINT: Shortness of breath and leg swelling. HISTORY OF PRESENT ILLNESS: This 68-year-old woman with a past medical history of multiple medical problems including history of asthma, COPD, history of diabetes, hypertension, DJD, history of obesity, appendectomy, history of anxiety and depression, being followed by Dr. Woodruff in the outpatient setting, has not been feeling well for the past several weeks. The patient is having increased shortness of breath and sputum, not much sputum is produced. There is no history of fever. Patient came to [facility] and was admitted for further evaluation and treatment. The patient was found to have elevated white count. Patient also had bilateral leg cellulitis. Troponins were found to be 0.060. The patient also possibly had evidence of UTI also. The chest x-ray which was done on admission which was reviewed personally by me showed cardiomegaly. Venous Doppler was found to be negative for DVT. There is no history of fevers or rigors. No history of headache, loss of consciousness, seizures. PAST MEDICAL HISTORY: History of asthma, COPD, history of diabetes, hypertension, DJD, hypothyroidism. MEDICATIONS: Home medications: 1. Amaryl 2 mg breakfast. 2. Aspirin 81 mg. 3. Bactrim DS 1 p.o. b.i.d. 4. Trazodone 100 mg at bedtime. 5. Glucophage 500 mg p.o. b.i.d. 7. Synthroid 175 mcg p.o. daily. 8. DuoNeb q.i.d. 9. Mulino 7.5 every 6 hours p.r.n. 10.Lasix 40 mg. 11.Flonase 1 to 2 sprays daily. 12.Drisdol 50,000 every 7 days. 13.Ventolin 2 puffs every 4 hours p.r.n. 14.Abilify 5 mg at bedtime. ALLERGIES: CIPROFLOXACIN, LATEX, NITROFURANTOIN, PENICILLIN, PROPOXYPHENE. FAMILY HISTORY: History of cancer and heart disease in the family. SOCIAL HISTORY: History of smoking, ongoing. No history of alcohol intake. REVIEW OF SYSTEMS: ENT: Diminished hearing and vision. CARDIOVASCULAR: No angina. RESPIRATORY: As mentioned earlier. GI: No nausea or vomiting. : No dysuria. NERVOUS SYSTEM: No numbness or weakness. ALLERGY: No asthma or hayfever. MUSCULOSKELETAL: As mentioned earlier. HEMATOLOGY/ONCOLOGY: Anemia. ENDOCRINE: Hypothyroidism. CONSTITUTIONAL: As mentioned. DERMATOLOGY: As mentioned. RHEUMATOLOGY: Negative. PSYCH: As mentioned earlier. PHYSICAL EXAM: Patient is alert, oriented x3. Pulse is 81, blood pressure 150/77, respirations 20, temperature 98.4, pulse ox 94% on 2 L. HEENT: Conjunctivae normal. Oral mucosa moist. NECK: No jugular venous distention. No lymph node enlargement. CARDIOVASCULAR: S1 and S2 muffled. LUNGS: Breath sounds diminished in the bases. Bilateral scattered rhonchi and expiratory wheezing and crackles. Breathing efforts are markedly increased. ABDOMEN: Soft, obese, nontender. No mass palpable. LEGS: Bilateral leg edema. Bilateral leg cellulitis, left more than right, with left with cellulitis and infected blisters possibly in the mid part of the calf also. Both feet are dry. NERVOUS SYSTEM: Higher functions as mentioned earlier. Moves all extremities equally. No focal deficits. SKIN: No rashes. JOINTS: No active deformities or arthropathy. LAB STUDIES: WBC 12.6, sodium 136. Creatinine 1.4. Other labs as mentioned and reviewed. Troponin 0.065. UA noted. EKG showed left axis deviation, otherwise nonspecific changes. ASSESSMENT: 1. Chronic obstructive pulmonary disease exacerbation with acute purulent tracheobronchitis with failure of outpatient treatment. 2. Troponin 0.060. Rule out coronary artery disease. 3. Leg cellulitis bilaterally. 4. Increased creatinine with mild acute renal failure, possibly prerenal. 5. Hyponatremia. 6. Increased WBC. 7. History of asthma and chronic obstructive pulmonary disease. 8. History of diabetes type 2. 9. Hypertension. 10.History of degenerative joint disease. 11.History of hypothyroidism. 12.Obesity with body mass index of 35.9. 13.History of depression. 14.History of glaucoma. 15.History of degenerative joint disease, chronic back pain. 16.Nephrolithiasis. 17.History of anxiety and depression. 18.Continued ongoing nicotine dependence. 19.FULL CODE. RECOMMENDATIONS AND DISCUSSION: This 68-year-old woman presented with multiple medical issues. At this time I recommend to continue current management and symptomatic treatment. Cardiology and Pulmonology consultations. Bronchodilators and empiric antibiotics. Resume the home medications. DVT prophylaxis. Local treatment with silver sulfadiazine. Obtain cultures. Prognosis guarded because of multiple complex medical issues. Further recommendations to follow. See orders for further details. MMODL / IJN: [id number] / ERIKA
[2018-09-07 05:46] LABS: Glucose,Whole Blood 126 mg/dL (75-99)
[2018-09-07] MEDS: LEVOTHYROXINE 50 MCG TAB PO SCH (05:52)
[2018-09-07] MEDS: PANTOPRAZOLE 40 MG TABLET PO SCH (05:53)
[2018-09-07] MEDS: GLIMEPIRIDE 2 MG TAB PO SCH (05:53)
[2018-09-07] MEDS: INSULIN ASPART 100 UNIT/ML 1 ML 10 ML VIAL SQ SCH ×4 (06:52→21:45)
[2018-09-07 07:04] LABS: Basophils % (A) 0 %; Eosinophils # (A) 0.2 k/uL (0-0.7); Eosinophils % (A) 2 %; HCT 35.9 % (34.0-46.0); HGB 10.9 gm/dL (11.4-16.0); Hypochromasia Moderate; Lymphocytes % (A) 10 %; MCH 26.5 pg (25.0-35.0); MCHC 30.4 g/dL (31.0-37.0); Mean Platelet Volume 6.1; Monocytes # (A) 0.6 k/uL (0-1.0); Monocytes % (A) 6 %; Neutrophils # (A) 8.5 k/uL (1.3-7.7); Neutrophils % (A) 80 %; Platelet Count 380 k/uL (150-450); RBC 4.13 m/uL (3.80-5.40); RDW 15.8 % (11.5-15.5); WBC 10.7 k/uL (3.8-10.6)
[2018-09-07 07:12] LABS: Potassium 5.3 mmol/L (3.5-5.1)
[2018-09-07] MEDS: FORMOTEROL FUMARATE 20 MCG/2 ML NEBU INHALATION SCH ×2 (08:48→20:41)
[2018-09-07] MEDS: BUDESONIDE 1 MG/2 ML NEBU INHALATION SCH ×2 (08:48→20:41)
[2018-09-07] MEDS: IPRATROPIUM-ALBUTEROL 3 ML NEB INHALATION SCH ×4 (08:48→20:41)
[2018-09-07] MEDS ORDERED: FUROSEMIDE 20 MG TAB PO SCH (09:00)
[2018-09-07] MEDS: ALPRAZolam 0.25 MG TAB PO PRN ×2 (09:09→21:46)
[2018-09-07] MEDS: ENOXAPARIN 40 MG/0.4 ML SYRINGE SQ SCH (09:09)
[2018-09-07] MEDS: ASPIRIN 81 MG PO SCH (09:09)
[2018-09-07] MEDS: metFORMIN 500 MG TAB PO SCH ×2 (09:09→21:46)
[2018-09-07] MEDS: NICOTINE 14MG/24HR PATCH TRANSDERM SCH (09:12)
[2018-09-07] MEDS: FLUTICASONE 50MCG/SPRAY NASAL 16GM EA NOSTRIL SCH (09:13)
--- NOTE | 2018-09-07 10:12 | P.CRDCN ---
History of Present Illness Consult date: 09/07/18 Requesting physician: Helga Rivera Reason for Consult (text): Abnormal troponin Chief complaint: Bilateral lower extremity edema and cellulitis, shortness of breath History of present illness: This is a 68-year-old female with known history of hypertension, diabetes, hyperlipidemia, nicotine dependence, anxiety and depression, hypothyroidism, asthma, cellulitis, COPD, recurrent UTIs who presented to the hospital on this occasion with symptoms of bilateral lower extremity edema and cellulitis with associated shortness of breath. According to the patient, she states for the past several weeks she's overall not been feeling well, she has had more shortness of breath than usual and is noticed bilateral swelling in her legs. A troponin was drawn in the emergency room which came back to be abnormal and for that reason a cardiology consultation was obtained. EKG performed on arrival here showed a normal sinus rhythm with no acute changes. Chest x-ray showed cardiomegaly with no heart failure. Venous duplex study of the left lower extremity was performed which came back negative for DVT. Blood pressure 152/70 with a heart rate in the 80s, 92% on 2 L of oxygen. White blood cell count on admission 12.6, 10.7 this morning, hemoglobin 10.9, platelet count 380. Sodium 136, potassium 5.3, BUN 29, creatinine 1.0. Magnesium level I.7, troponin on admission 0.060. Urinalysis positive for UTI, influenza A and B been negative. At the time of my examination this morning, patient is very sleepy, mildly short of breath. Past Medical History Past Medical History: Asthma, Chest Pain / Angina, COPD, Diabetes Mellitus, Hypertension, Osteoarthritis (OA), Respiratory Disorder, Skin Disorder, Thyroid Disorder Additional Past Medical History / Comment(s): Obesity (BMI 35) COPD, asthma, diabetes , depression, 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 History of Any Multi-Drug Resistant Organisms: None Reported Past Surgical History: Appendectomy, Section, Cholecystectomy, Orthopedic Surgery, Tubal Ligation Additional Past Surgical History / Comment(s): LASER SX JETHRO EYES FOR GLAUCOMA. RT KNEE ARTHROSCOPY. UNDERWENT PERCUTANEOUS NEPHROSTOLITHOTOMY Past Anesthesia/Blood Transfusion Reactions: No Reported Reaction Smoking Status: Current every day smoker - Past Family History Mother Additional Family Medical History / Comment(s): emphysema, heart valve problems , in her slepp. Brother(s) Family Medical History: Cancer Additional Family Medical History / Comment(s): from oral cancer Father Brother(s) Family Medical History: Cancer Additional Family Medical History / Comment(s): heart disease Medications and Allergies Home Medications Medication Instructions Recorded Confirmed Type Aspirin 81 mg PO DAILY 02/06/14 09/06/18 History HYDROcodone/APAP 7.5-325MG [Kimberly 1 tab PO Q6H PRN 02/06/14 09/06/18 History 7.5-325] Zafirlukast [Accolate] 20 mg PO BID 02/06/14 09/06/18 History Ergocalciferol [Vitamin D2 50,000 unit PO Q7D 12/10/14 09/06/18 History (DRISDOL)] Levothyroxine Sodium [Synthroid] 175 mcg PO DAILY 12/10/14 09/06/18 History Albuterol Inhaler [Ventolin Hfa 2 puff INHALATION RT-Q4H PRN #0 09/07/15 Rx Inhaler] ARIPiprazole [Abilify] 5 mg PO HS 02/07/18 09/06/18 History Fluticasone Nasal [place] [Flonase 1 - 2 spray EA NOSTRIL DAILY 02/07/18 09/06/18 History Nasal [place]] Furosemide [Lasix] 40 mg PO DAILY 02/07/18 09/06/18 History Glimepiride [Amaryl] 2 mg PO AC-BRKFST 02/07/18 09/06/18 History metFORMIN HCL [Glucophage] 500 mg PO BID 02/07/18 09/06/18 History traZODone HCL 100 mg PO HS PRN 02/07/18 09/06/18 History Ipratropium-Albuterol Nebulize 3 ml INHALATION RT-QID #120 02/09/18 09/06/18 Rx [Duoneb 0.5 mg-3 mg/3 ml Soln] ampul.neb Sulfamethox-Tmp 800-160Mg [Bactrim 1 tab PO Q12HR 09/06/18 09/06/18 History DS 800-160 mg] Allergies Allergy/AdvReac Type Severity Reaction Status Date / Time adhesive Allergy Rash/Hives Verified 09/06/18 17:37 ciprofloxacin [From Cipro] Allergy Rash/Hives Verified 09/06/18 17:37 ciprofloxacin HCl Allergy Rash/Hives Verified 09/06/18 17:37 [From Cipro] latex Allergy Rash/Hives Verified 09/06/18 17:37 nitrofurantoin Allergy Rash/Hives Verified 09/06/18 17:37 [From Macrobid] nitrofurantoin Allergy Rash/Hives Verified 09/06/18 17:37 macrocrystalline [From Macrobid] Penicillins Allergy Rash/Hives Verified 09/06/18 17:37 propoxyphene HCl Allergy Rash/Hives Verified 09/06/18 17:37 [From Darvon] propoxyphene napsylate Allergy Unknown Verified 09/06/18 17:37 [From Darvocet-N] Physical Exam Vitals: Vital Signs Temp Pulse Pulse Resp BP BP Pulse Ox 09/07/18 09:15 88 09/07/18 08:59 80 09/07/18 08:58 80 09/07/18 08:51 79 94 L 09/07/18 08:00 97.8 F 89 20 153/70 92 L 09/07/18 03:21 98 F 85 20 135/62 94 L 09/06/18 23:25 88 20 128/61 93 L 09/06/18 21:19 97.8 F 80 20 151/66 92 L 09/06/18 20:30 98.4 F 81 22 155/77 94 L 09/06/18 19:32 80 09/06/18 19:24 81 09/06/18 19:00 81 24 158/74 94 L 09/06/18 16:22 97.8 F 98 26 H 161/61 97 Intake and Output 09/06/18 09/07/18 09/07/18 22:59 06:59 14:59 Intake Total 240 Balance 240 Intake: Oral 240 Other: # Voids 1 Weight 86.183 kg 95.9 kg PHYSICAL EXAMINATION: GENERAL: 68-year-old female in no acute distress at the time of my examination HEENT: Head is atraumatic, normocephalic. Pupils equal, round. Sclera anicteric. Conjunctiva are clear. Mucous membranes of the mouth are moist. Neck is supple. There is no elevated jugular venous pressure. No carotid bruit is heard. HEART EXAMINATION: Heart S1, S2 normal. No murmur or gallop heard. CHEST EXAMINATION: Lungs are clear with fine crackles to bilateral bases. ABDOMEN: Soft, nontender. Bowel sounds are heard. No organomegaly noted. EXTREMITIES: 2+ peripheral pulses with 2+ evidence of peripheral edema, left leg greater than right, dressing in place, bilateral ear erythema. Diuretics and subsequent troponins are negative. NEUROLOGIC patient is awake, alert and oriented 3 . Sleepy. . Results 09/07/18 06:25 09/07/18 06:25 Cardiac Enzymes 09/06/18 09/06/18 Range/Units 17:29 17:29 AST 21 (14-36) U/L CK-MB (CK-2) 2.6 H (0.0-2.4) ng/mL Troponin I 0.060 H* (0.000-0.034) ng/mL Coagulation 09/06/18 Range/Units 17:29 PT 10.3 (9.0-12.0) sec APTT 24.6 (22.0-30.0) sec CBC 09/06/18 09/07/18 Range/Units 17:29 06:25 WBC 12.6 H 10.7 H (3.8-10.6) k/uL RBC 4.25 4.13 (3.80-5.40) m/uL Hgb 11.5 10.9 L (11.4-16.0) gm/dL Hct 36.7 35.9 (34.0-46.0) % Plt Count 385 380 (150-450) k/uL Comprehensive Metabolic Panel 09/06/18 09/07/18 Range/Units 17:29 06:25 Sodium 136 L 136 L (137-145) mmol/L Potassium 4.9 5.3 H (3.5-5.1) mmol/L Chloride 102 106 (98-107) mmol/L Carbon Dioxide 23 22 (22-30) mmol/L BUN 33 H 29 H (7-17) mg/dL Creatinine 1.25 H 1.04 (0.52-1.04) mg/dL Glucose 103 H 109 H (74-99) mg/dL Calcium 9.3 9.0 (8.4-10.2) mg/dL AST 21 (14-36) U/L ALT 41 (9-52) U/L Alkaline Phosphatase 78 (38-126) U/L Total Protein 6.3 (6.3-8.2) g/dL Albumin 3.5 (3.5-5.0) g/dL Current Medications Generic Name Dose Route Start Last Admin Trade Name Freq PRN Reason Stop Dose Admin Acetaminophen 500 mg 09/06/18 22:49 Tylenol Tab PO Q6HR PRN Fever and/ or Pain Hydrocodone Bitart/Acetaminophen 1 each 09/06/18 22:47 Kimberly 7.5-325 PO Q6H PRN Pain Albuterol/Ipratropium 3 ml 09/06/18 19:26 Duoneb 0.5 Mg-3 Mg/3 Ml Soln INHALATION RT-Q2H PRN Shortness Of Breath Or Wheezing Albuterol/Ipratropium 3 ml 09/07/18 08:00 09/07/18 08:48 Duoneb 0.5 Mg-3 Mg/3 Ml Soln INHALATION 3 ml RT-QID KIET Administration Alprazolam 0.25 mg 09/06/18 22:49 09/07/18 09:09 Xanax PO 0.25 mg TID PRN Administration Anxiety Aripiprazole 5 mg 09/07/18 21:00 Abilify PO HS KIET Aspirin 81 mg 09/07/18 09:00 09/07/18 09:09 Aspirin PO 81 mg DAILY KIET Administration Budesonide 1 mg 09/07/18 08:00 09/07/18 08:48 Pulmicort INHALATION 1 mg RT-BID KIET Administration Enoxaparin Sodium 40 mg 09/07/18 09:00 09/07/18 09:09 Lovenox SQ 40 mg DAILY KIET Administration Ergocalciferol 50,000 unit 09/13/18 09:00 Vitamin D2 PO Q7D [facility] Fluticasone Propionate 1 spray 09/07/18 09:00 09/07/18 09:13 Flonase Nasal [place] EA NOSTRIL Not Given DAILY [facility] Formoterol Fumarate 20 mcg 09/07/18 08:00 09/07/18 08:48 Perforomist INHALATION 20 mcg RT-BID KIET Administration Furosemide 40 mg 09/07/18 09:00 09/07/18 09:09 Lasix PO 40 mg DAILY KIET Administration Glimepiride 2 mg 09/07/18 07:30 09/07/18 05:53 Amaryl PO 2 mg AC-BRKFST KIET Administration Ceftriaxone Sodium 1,000 mg/ 50 mls @ 100 mls/hr 09/07/18 06:00 09/07/18 05: 53 Sodium Chloride IVPB 100 mls/hr Q12H KIET Administration Insulin Aspart 0 unit 09/07/18 07:30 09/07/18 06:52 Novolog SQ Not Given ACHS [facility] Protocol Levothyroxine Sodium 175 mcg 09/07/18 06:30 09/07/18 05:52 Synthroid PO 175 mcg DAILY@0630 KIET Administration Metformin HCl 500 mg 09/07/18 09:00 09/07/18 09:09 Glucophage PO 500 mg BID [facility] Administration Montelukast Sodium 10 mg 09/07/18 21:00 Singulair PO HS [facility] Morphine Sulfate 4 mg 09/06/18 18:25 Morphine Sulfate (Inj) IVP Q4HR PRN Pain Nicotine 1 patch 09/07/18 09:00 09/07/18 09:12 Habitrol 14mg/24hr Patch TRANSDERM Not Given DAILY [facility] Pantoprazole Sodium 40 mg 09/07/18 07:30 09/07/18 05:53 Protonix PO 40 mg AC-BRKFST KIET Administration Silver Sulfadiazine 1 applic 09/07/18 21:00 Silvadene Cream TOPICAL 2100 [facility] Trazodone HCl 100 mg 09/06/18 22:47 Desyrel PO HS PRN Insomnia Intake and Output 09/06/18 09/07/18 09/07/18 22:59 06:59 14:59 Intake Total 240 Balance 240 Intake: Oral 240 Other: # Voids 1 Weight 86.183 kg 95.9 kg 09/07/18 06:25 09/07/18 06:25 EKG Interpretations (text) EKG shows normal sinus rhythm with no acute changes. Assessment and Plan Plan: Assessment and plan #1 COPD exacerbation with acute purulent tracheobronchitis #2 abnormal troponin, patient denies having any chest discomfort. EKG shows normal sinus rhythm with no acute changes. We will obtain 2 subsequent troponins and an echocardiogram with Doppler study. Her most recent echo was performed in January of last year which revealed an ejection fraction of 50-55%. #3 nicotine dependence #4 bilateral lower extremity cellulitis #5 UTI #6 diabetes #7 hypertension #8 hypothyroidism #9 obesity #10 depression Plan We will obtain 2 subsequent troponins, it is possible that the abnormality in troponin could be secondary to supply and demand mismatch. We will repeat an echocardiogram with Doppler study. Patient has a known diabetic, we will start a low-dose statin , continue baby aspirin, start low-dose beta sade. Further recommendations will be based on these findings and patient's clinical course. DNP note has been reviewed, I agree with a documented findings and plan of care. Patient was seen and examined.
[2018-09-07] MEDS: METOPROLOL TARTRATE 25 MG TAB PO SCH ×2 (10:49→21:46)
[2018-09-07] MEDS: ATORVASTATIN 40 MG TAB PO SCH (10:49)
[2018-09-07 11:07] LABS: Glucose,Whole Blood 116 mg/dL (75-99)
[2018-09-07] MEDS: methylPREDNISolone SOD SUCCI 125 MG/2 ML VIAL IV SCH ×3 (12:40→22:36)
--- NOTE | 2018-09-07 13:02 | ECHOF ---
Referral Reason:abn trop MEASUREMENTS -------- HEIGHT: 152.4 cm WEIGHT: 95.7 kg BP: RVIDd: 3.4 cm (< 3.3) IVSd: 1.3 cm (0.6 - 1.1) LVIDd: 3.7 cm (3.9 - 5.3) LVPWd: 1.4 cm (0.6 - 1.1) IVSs: 1.5 cm LVIDs: 2.6 cm LVPWs: 1.7 cm LA Diam: 4.2 cm (2.7 - 3.8) Ao Diam: 2.9 cm (2.0 - 3.7) LA Diam: 4.2 cm (2.7 - 3.8) MV EXCURSION: 18.742 mm (> 18.000) MV EF SLOPE: 117 mm/s (70 - 150) EPSS: 0.5 cm MV E Neal: 1.19 m/s MV DecT: 258 ms MV A Neal: 1.22 m/s MV E/A Ratio: 0.98 RAP: 5.00 mmHg RVSP: 30.00 mmHg FINDINGS -------- Sinus rhythm. This was a techncally difficult study with suboptimal views, , Lumason utilized for enhancement of im ages. The left ventricular size is normal. There is mild concentric left ventricular hypertrophy. Overa ll left ventricular systolic function is normal with, an EF between 55 - 60 %. The right ventricle is mildly enlarged. The left atrium is mildly dilated. The right atrial size is normal. 5.0mg OF Lumason UTLIZED: 2 OR MORE WALL SEGMENTS NOT VISUALIZED. There is mild aortic valve sclerosis. There is no evidence of aortic regurgitation. Mild mitral annular calcification present. Mild mitral regurgitation is present. Mild tricuspid regurgitation present. There is no evidence of pulmonary hypertension. The right v entricular systolic pressure, as measured by Doppler, is 30.00mmHg. There is no pulmonic regurgitation present. The aortic root size is normal. There is a trivial pericardial effusion present. CONCLUSIONS -------- 1. This was a techncally difficult study with suboptimal views, , Lumason utilized for enhancement of images. 2. The left ventricular size is normal. 3. There is mild concentric left ventricular hypertrophy. 4. Overall left ventricular systolic function is normal with, an EF between 55 - 60 %. 5. The right ventricle is mildly enlarged. 6. The left atrium is mildly dilated. 7. The right atrial size is normal. 8. 5.0mg OF Lumason UTLIZED: 2 OR MORE WALL SEGMENTS NOT VISUALIZED. 9. There is mild aortic valve sclerosis. 10. Mild mitral annular calcification present. 11. Mild mitral regurgitation is present. 12. Mild tricuspid regurgitation present. 13. There is no evidence of pulmonary hypertension. 14. The right ventricular systolic pressure, as measured by Doppler, is 30.00mmHg. 15. There is no pulmonic regurgitation present. 16. The aortic root size is normal. 17. There is a trivial pericardial effusion present. RN EXAMINER: Maria Dolores Bonds RDCS
[2018-09-07 14:25] LABS: Hemoglobin A1C 8.4 % (4.0-6.0)
[2018-09-07] MEDS ORDERED: MORPHINE ORAL SOLN 10 MG/5 ML CUP PO PRN (15:44)
--- NOTE | 2018-09-07 16:20 | P.CNPUL ---
History of Present Illness Consult date: 09/07/18 Reason for consult: dyspnea, COPD History of present illness: This is a 68-year-old female known history of severe COPD, diagnosed many years ago, unfortunately she continues to smoke. We have seen this patient last in January of 2018 when she was admitted for acute COPD exacerbation, and at that time she was seen by me. Patient had workup including cardiac workup, and her echocardiogram was relatively unremarkable, she had good LV function. Her problems at the time included acute exacerbation of COPD, morbid obesity, type 2 diabetes, hypertension, depression, hypothyroidism, glaucoma, varicose veins involving lower extremities, chronic back pain and degenerative disc disease, nephrolithiasis, and history of recurrent cellulitis of lower extremities. Patient was eventually discharged home, and over the last 6 months the patient has been complaining of intermittent episodes of cough wheezing shortness of breath. Patient was evaluated in the ER back in late July for symptoms of COPD exacerbation, patient was advised admission but because of the long wait in the ER she went home AGAINST MEDICAL ADVICE. Patient was seen by her medical doctor, and he recommended evaluation of her COPD at our office. Patient is not O2 dependent, she does have mostly albuterol with Atrovent updrafts 4 times a day and when necessary, not taking any other inhalers. She does have an albuterol inhaler, but she has no steroid inhalers, and no long acting beta agonist. Unfortunately again the patient continues to smoke on the average of 1/ 2-1 pack per day. In addition to her pulmonary symptoms, the patient is complaining of significant swelling and fluid retention in both lower extremities, and she seems to have what looks like an extensive cellulitis involving the left lower extremity. There is redness, swelling, tenderness in the left lower extremity, and she has a low-grade fever with a temp of 99. After being evaluatedi in the office the patient was recommended that she will need IV antibiotics. Patient iwas extremely reluctant to go to the hospital, but she was agreeable , and eventually come back to the ER sometime for evaluation and was admitted for IV antibiotics. In the meantime the patient was taking Bactrim for what seems to be a urinary tract infection presently has no active symptoms of UTI. Review of Systems Constitutional: Low-grade fever, weakness, fatigue, and malaise. Cardiovascular: Denies palpitations, denied chest pain or chest pressure, denies any edema. GI: Denies nausea vomiting abdominal pain diarrhea or constipation. Pulmonary: As noted in HPI, mostly recurrent symptoms of cough wheezing shortness of breath. Genitourinary: Denies dysuria, frequency, or urgency.Patient had a recent UTI, presently on Bactrim. Neurologic: Denies weakness, confusion, dizziness, or numbness. Musculoskeletal: Complaining of chronic swelling of lower extremities, recurrent episodes of cellulitis and swelling in both lower extremities. Skin: Recurrent cellulitis, involving both legs, patient has been seen by Dr. Torres in the past. Endocrine: No polydipsia, no polyuria, no heat or cold sensitivity. Hematologic: No clotting bleeding or bruising Psychiatric: No symptoms of active depression. Past Medical History Past Medical History: Asthma, Chest Pain / Angina, COPD, Diabetes Mellitus, Hypertension, Osteoarthritis (OA), Respiratory Disorder, Skin Disorder, Thyroid Disorder Additional Past Medical History / Comment(s): Obesity (BMI 35) COPD, asthma, diabetes , depression, 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 The patient is also a smoker. The patient has chronic back pain. History of Any Multi-Drug Resistant Organisms: None Reported Past Surgical History: Appendectomy, Section, Cholecystectomy, Orthopedic Surgery, Tubal Ligation Additional Past Surgical History / Comment(s): LASER SX JETHRO EYES FOR GLAUCOMA. RT KNEE ARTHROSCOPY. UNDERWENT PERCUTANEOUS NEPHROSTOLITHOTOMY Past Anesthesia/Blood Transfusion Reactions: No Reported Reaction Smoking Status: Current every day smoker - Past Family History Mother Additional Family Medical History / Comment(s): emphysema, heart valve problems , in her slepp. Brother(s) Family Medical History: Cancer Additional Family Medical History / Comment(s): from oral cancer Father Brother(s) Family Medical History: Cancer Additional Family Medical History / Comment(s): heart disease Medications and Allergies Home Medications Medication Instructions Recorded Confirmed Type Aspirin 81 mg PO DAILY 02/06/14 09/06/18 History HYDROcodone/APAP 7.5-325MG [[place] 1 tab PO Q6H PRN 02/06/14 09/06/18 History 7.5-325] Zafirlukast [Accolate] 20 mg PO BID 02/06/14 09/06/18 History Ergocalciferol [Vitamin D2 50,000 unit PO Q7D 12/10/14 09/06/18 History (DRISDOL)] Levothyroxine Sodium [Synthroid] 175 mcg PO DAILY 12/10/14 09/06/18 History Albuterol Inhaler [Ventolin Hfa 2 puff INHALATION RT-Q4H PRN #0 09/07/15 Rx Inhaler] ARIPiprazole [Abilify] 5 mg PO HS 02/07/18 09/06/18 History Fluticasone Nasal [place] [Flonase 1 - 2 spray EA NOSTRIL DAILY 02/07/18 09/06/18 History Nasal [place]] Furosemide [Lasix] 40 mg PO DAILY 02/07/18 09/06/18 History Glimepiride [Amaryl] 2 mg PO AC-BRKFST 02/07/18 09/06/18 History metFORMIN HCL [Glucophage] 500 mg PO BID 02/07/18 09/06/18 History traZODone HCL 100 mg PO HS PRN 02/07/18 09/06/18 History Ipratropium-Albuterol Nebulize 3 ml INHALATION RT-QID #120 02/09/18 09/06/18 Rx [Duoneb 0.5 mg-3 mg/3 ml Soln] ampul.neb Sulfamethox-Tmp 800-160Mg [Bactrim 1 tab PO Q12HR 09/06/18 09/06/18 History DS 800-160 mg] Allergies Allergy/AdvReac Type Severity Reaction Status Date / Time adhesive Allergy Rash/Hives Verified 09/06/18 17:37 ciprofloxacin [From Cipro] Allergy Rash/Hives Verified 09/06/18 17:37 ciprofloxacin HCl Allergy Rash/Hives Verified 09/06/18 17:37 [From Cipro] latex Allergy Rash/Hives Verified 09/06/18 17:37 nitrofurantoin Allergy Rash/Hives Verified 09/06/18 17:37 [From Macrobid] nitrofurantoin Allergy Rash/Hives Verified 09/06/18 17:37 macrocrystalline [From Macrobid] Penicillins Allergy Rash/Hives Verified 09/06/18 17:37 propoxyphene HCl Allergy Rash/Hives Verified 09/06/18 17:37 [From Darvon] propoxyphene napsylate Allergy Unknown Verified 09/06/18 17:37 [From Darvocet-N] Physical Exam Vitals: Vital Signs Temp Pulse Pulse Resp BP BP Pulse Ox 09/07/18 12:10 88 09/07/18 11:57 82 09/07/18 11:34 97.0 F L 82 24 133/69 93 L 09/07/18 09:15 88 09/07/18 08:59 80 09/07/18 08:58 80 09/07/18 08:51 79 94 L 09/07/18 08:00 97.8 F 89 24 153/70 92 L 09/07/18 03:21 98 F 85 20 135/62 94 L 09/06/18 23:25 88 20 128/61 93 L 09/06/18 21:19 97.8 F 80 20 151/66 92 L 09/06/18 20:30 98.4 F 81 22 155/77 94 L 09/06/18 19:32 80 09/06/18 19:24 81 09/06/18 19:00 81 24 158/74 94 L 09/06/18 16:22 97.8 F 98 26 H 161/61 97 Intake and Output 09/06/18 09/07/18 09/07/18 22:59 06:59 14:59 Intake Total 240 Balance 240 Intake: Oral 240 Other: # Voids 1 2 Weight 86.183 kg 95.9 kg Gen. appearance, comfortable likely distress HEENT: Anicteric sclerae, pink and moist conjunctivae. Extraocular movements intact, pupils are reactive to light they are round and equal. External inspection of ears and nose showed normal mucosa. Oral mucosa, soft and hard palate tongue and posterior pharynx are intact. Neck: Supple no neck masses, no JVD, no thyroid enlargement, no adenopathy. Lungs: Symmetrical expansion, Diminished breath sound bilaterally, rhonchi and wheezes noted bilaterally more so on forced expiratory maneuver. CVS: Regular rate and rhythm, normal S1 and S2, no gallops, 2/6 systolic murmur thought the precordium. Over the aortic area. Abdomen: Obese,Soft, nontender, no megaly, no rebound, no guarding, positive bowel sounds. Extremities: No clubbing, 3+ bipedal edema involving both lower extremities, significant erythema and tenderness noted in the left lower extremity superficial ulcerations noted above the ankle extreme tenderness on palpation of left lower extremity. No erythema noted, and no evidence of cellulitis noted involving the right lower extremity. Musculoskeletal: Muscle strength and tone normal. Neurologic: Alert and oriented 3, normal affect, no focal neurologic deficits. Psychiatric: Normal mood, affect and mental status examination. Skin: Evidence of erythema and cellulitis mostly involving the left lower extremity. Results - Laboratory Findings CBC and BMP: 09/07/18 06:25 09/07/18 06:25 PT/INR, D-dimer PT 10.3 sec (9.0-12.0) 09/06/18 17:29 INR 1.0 (<1.2) 09/06/18 17:29 Abnormal lab findings: Abnormal Labs 09/06/18 09/06/18 09/06/18 17:29 17:29 17:29 WBC 12.6 H Hgb MCHC RDW 16.0 H Neutrophils # 10.3 H Sodium 136 L Potassium BUN 33 H Creatinine 1.25 H Glucose 103 H POC Glucose (mg/dL) Hemoglobin A1c Phosphorus 5.1 H CK-MB (CK-2) 2.6 H Troponin I 0.060 H* Ur Leukocyte Esterase Urine WBC Hyaline Casts 09/06/18 09/06/18 09/07/18 17:29 21:30 05:45 WBC Hgb MCHC RDW Neutrophils # Sodium Potassium BUN Creatinine Glucose POC Glucose (mg/dL) 126 H Hemoglobin A1c 8.4 H Phosphorus CK-MB (CK-2) Troponin I Ur Leukocyte Esterase Large H Urine WBC 37 H Hyaline Casts 4 H 09/07/18 09/07/18 09/07/18 06:25 06:25 06:25 WBC 10.7 H Hgb 10.9 L MCHC 30.4 L RDW 15.8 H Neutrophils # 8.5 H Sodium 136 L Potassium 5.3 H BUN 29 H Creatinine Glucose 109 H POC Glucose (mg/dL) Hemoglobin A1c Phosphorus CK-MB (CK-2) Troponin I 0.044 H* Ur Leukocyte Esterase Urine WBC Hyaline Casts 09/07/18 11:05 WBC Hgb MCHC RDW Neutrophils # Sodium Potassium BUN Creatinine Glucose POC Glucose (mg/dL) 116 H Hemoglobin A1c Phosphorus CK-MB (CK-2) Troponin I Ur Leukocyte Esterase Urine WBC Hyaline Casts - Diagnostic Findings Chest x-ray: image reviewed Assessment and Plan Plan: 1 Acute exacerbation of chronic obstructive airways disease 2 chronic obstructive lung disease , and basilar recent pulmonary function test the patient has an FEV1 of 42% of predicted and a diffusion capacity of 45% of predicted consistent with seronegative airway disease 3 hypothyroidism 4 chronic cellulitis of the left lower extremity 5 osteoarthritis 6 type 2 diabetes mellitus without complications 7 smoker 8 depression 9 chronic back pain 10 nephrolithiasis 11 obesity with BMI of 39.9 Plan Continue bronchodilators. IV Solu-Medrol. IV Lasix 40 mg every 24 hours. IV Rocephin. Local wound care to left lower extremity. Keep the legs wrapped and elevated. Echocardiogram. We'll continue to follow. Smoking cessation counseling was done.
[2018-09-07] MEDS: IPRATROPIUM-ALBUTEROL 3 ML NEB INHALATION PRN (16:29)
[2018-09-07 16:42] LABS: Glucose,Whole Blood 183 mg/dL (75-99)
[2018-09-07] MEDS: FUROSEMIDE 10 MG/ML 4 ML VIAL IV SCH (17:37)
--- NOTE | 2018-09-07 19:48 | PN ---
PROGRESS NOTE DATE OF SERVICE: 09/07/2018 This 68-year-old woman was admitted with shortness of breath and COPD exacerbation with tracheobronchitis, failure of outpatient treatment. Troponins elevated. The patient also had bilateral leg swelling, left more than the right. Cardiology is following the patient closely. 2D echo with Doppler done today showed ejection fraction about 58-60 percent with mild valvular abnormalities. Cardiology is following the patient closely. PAST MEDICAL HISTORY: Reviewed. REVIEW OF SYSTEMS: Cardio system: As mentioned earlier. Respiratory: As mentioned earlier. GI no nausea or vomiting. no dysuria or retention. Central nervous system: As mentioned earlier. CURRENT MEDICATIONS ARE: Reviewed and include: 1. Tylenol 500 mg daily. 2. [place] 7.5. 3. DuoNeb q.i.d. and p.r.n. 4. Xanax 0.5 t.i.d. 5. Abilify 5 mg q.h.s. 6. Aspirin 81 mg. 7. Lipitor 40 mg. 8. Pulmicort 1 mg. 9. Rocephin 1 g IV b.i.d. 10.Lovenox 40 mg subcu daily. 11.Vitamin D2 81703 units daily. 12.Flonase. 13.Perforomist. 14.Lasix 40 mg IV. 15.Amaryl 2 mg. 16.NovoLog. 17.Synthroid 175 mcg. 18.Solu-Medrol 60 IV q.6 hours. 19.Lopressor. 20.Morphine. 21.Habitrol 14. 22.Protonix. 23.Desyrel. PHYSICAL EXAM: Patient is alert, oriented x3. The pulse is 82. Blood pressure 133/60. Respirations 24, temperature 97 degrees, pulse ox 93% on 3 L. HEENT: Conjunctivae normal. Neck is no jugular venous distention. Cardiovascular system: S1, S2 muffled. Respiratory: Breath sounds diminished in the bases. Bilateral scattered rhonchi and crackles. Expiratory wheezing also present. ABDOMEN: Soft, nontender. No mass palpable. Legs: Bilateral leg cellulitis and edema present, left more than the right. Nervous system: No focal deficits. LAB STUDIES: WBC 10.7, hemoglobin is 10.2. Sodium 136, potassium 5.3. ASSESSMENT: 1. Chronic obstructive pulmonary disease acute exacerbation with acute purulent tracheobronchitis with failure of outpatient treatment. 2. Troponin 0.060, rule out coronary artery disease. 3. Bilateral leg cellulitis, left more than the right. 4. Increased creatinine with mild acute renal failure possibly prerenal acute tubular necrosis. 5. Hyponatremia. 6. Increased WBC. 7. Asthma, chronic obstructive pulmonary disease. 8. History of diabetes type 2. 9. Hypertension. 10.History of degenerative joint disease. 11.Hypothyroidism. 12.Obesity with body mass index of 34.9. 13.History of depression. 14.History of glaucoma. 15.History of degenerative joint disease. 16.Chronic back pain. 17.Nephrolithiasis. 18.History of anxiety, depression. 19.Continued ongoing nicotine dependence. 20.FULL CODE. RECOMMENDATIONS AND DISCUSSION: I recommend to continue current medications, management and symptomatic treatment. Otherwise, at this time I recommend continue with bronchodilators, add steroids to the current regimen and monitor blood sugars closely. Resume the home medications. Cardiology, pulmonology evaluations, 2D echo with Doppler noted. Prognosis guarded. Steroids. Monitor blood sugars closely. Further recommendations to follow. MMODL / IJN: [id number] /
[2018-09-07 20:51] LABS: Glucose,Whole Blood 491 mg/dL (75-99)
[2018-09-07 20:52] LABS: Glucose,Whole Blood 465 mg/dL (75-99)
[2018-09-07] MEDS ORDERED: INSULIN DETEMIR 100 UNIT/ML 10 ML VIAL SQ SCH (21:00)
[2018-09-07] MEDS: ARIPiprazole 5 MG TAB PO SCH (21:46)
[2018-09-07] MEDS: MONTELUKAST 10 MG TAB PO SCH (21:46)
[2018-09-08] MEDS: traZODone HCL 100 MG TAB PO PRN ×2 (00:04→22:00)
[2018-09-08] MEDS: IPRATROPIUM-ALBUTEROL 3 ML NEB INHALATION PRN ×2 (01:13→23:18)
[2018-09-08 05:22] LABS: Glucose,Whole Blood 263 mg/dL (75-99)
[2018-09-08] MEDS: GLIMEPIRIDE 2 MG TAB PO SCH (06:09)
[2018-09-08] MEDS: methylPREDNISolone SOD SUCCI 125 MG/2 ML VIAL IV SCH ×4 (06:09→23:18)
[2018-09-08] MEDS: LEVOTHYROXINE 50 MCG TAB PO SCH (06:09)
[2018-09-08] MEDS: PANTOPRAZOLE 40 MG TABLET PO SCH (06:10)
[2018-09-08] MEDS: INSULIN ASPART 100 UNIT/ML 1 ML 10 ML VIAL SQ SCH ×3 (06:10→17:16)
[2018-09-08 06:58] LABS: Basophils % (A) 0 %; Eosinophils % (A) 0 %; HCT 36.8 % (34.0-46.0); HGB 11.4 gm/dL (11.4-16.0); Hypochromasia Moderate; Lymphocytes # (A) 0.6 k/uL (1.0-4.8); Lymphocytes % (A) 6 %; MCH 27.1 pg (25.0-35.0); MCHC 30.9 g/dL (31.0-37.0); MCV 87.5 fL (80.0-100.0); Mean Platelet Volume 6.8; Monocytes # (A) 0.3 k/uL (0-1.0); Monocytes % (A) 3 %; Neutrophils # (A) 8.8 k/uL (1.3-7.7); Neutrophils % (A) 90 %; Platelet Count 349 k/uL (150-450); RBC 4.21 m/uL (3.80-5.40); RDW 15.7 % (11.5-15.5); WBC 9.8 k/uL (3.8-10.6)
[2018-09-08 07:09] LABS: Anion Gap 8 mmol/L; Blood Urea Nitrogen 29 mg/dL (7-17); Carbon Dioxide 25 mmol/L (22-30); Chloride 103 mmol/L (98-107); Glucose 254 mg/dL (74-99); Potassium 5.6 mmol/L (3.5-5.1); Sodium 136 mmol/L (137-145)
[2018-09-08] MEDS: FORMOTEROL FUMARATE 20 MCG/2 ML NEBU INHALATION SCH ×2 (07:25→19:34)
[2018-09-08] MEDS: BUDESONIDE 1 MG/2 ML NEBU INHALATION SCH ×2 (07:25→19:34)
[2018-09-08] MEDS: IPRATROPIUM-ALBUTEROL 3 ML NEB INHALATION SCH ×4 (07:25→19:34)
[2018-09-08] MEDS: NICOTINE 14MG/24HR PATCH TRANSDERM SCH (08:38)
[2018-09-08] MEDS: FLUTICASONE 50MCG/SPRAY NASAL 16GM EA NOSTRIL SCH (08:38)
[2018-09-08] MEDS: metFORMIN 500 MG TAB PO SCH ×2 (08:50→20:15)
[2018-09-08] MEDS: ATORVASTATIN 40 MG TAB PO SCH (08:50)
[2018-09-08] MEDS: ALPRAZolam 0.25 MG TAB PO PRN (08:50)
[2018-09-08] MEDS: FUROSEMIDE 10 MG/ML 4 ML VIAL IV SCH (08:50)
[2018-09-08] MEDS: METOPROLOL TARTRATE 25 MG TAB PO SCH ×3 (08:50→20:15)
[2018-09-08] MEDS: ENOXAPARIN 40 MG/0.4 ML SYRINGE SQ SCH (08:50)
[2018-09-08] MEDS: ASPIRIN 81 MG PO SCH (08:50)
[2018-09-08] MEDS: HYDROcodone/APAP 7.5-325MG 1 EACH TAB PO PRN ×2 (08:58→22:00)
[2018-09-08] MEDS ORDERED: LOPERAMIDE 2 MG CAP PO PRN (10:51)
[2018-09-08 11:15] LABS: Glucose,Whole Blood 255 mg/dL (75-99)
[2018-09-08] MEDS ORDERED: INSULIN REGULAR BOLUS (FROM DRIP BAG) IV ONE (11:28)
[2018-09-08] MEDS ORDERED: LOPERAMIDE 2 MG CAP PO STA (11:28)
--- NOTE | 2018-09-08 12:08 | P.PN ---
Subjective Progress Note Date: 09/08/18 Principal diagnosis: Acute exacerbation of chronic obstructive airways disease This is a 68-year-old female known history of severe COPD, diagnosed many years ago, unfortunately she continues to smoke. We have seen this patient last in January of 2018 when she was admitted for acute COPD exacerbation, and at that time she was seen by me. Patient had workup including cardiac workup, and her echocardiogram was relatively unremarkable, she had good LV function. Her problems at the time included acute exacerbation of COPD, morbid obesity, type 2 diabetes, hypertension, depression, hypothyroidism, glaucoma, varicose veins involving lower extremities, chronic back pain and degenerative disc disease, nephrolithiasis, and history of recurrent cellulitis of lower extremities. Patient was eventually discharged home, and over the last 6 months the patient has been complaining of intermittent episodes of cough wheezing shortness of breath. Patient was evaluated in the ER back in late July for symptoms of COPD exacerbation, patient was advised admission but because of the long wait in the ER she went home AGAINST MEDICAL ADVICE. Patient was seen by her medical doctor, and he recommended evaluation of her COPD at our office. Patient is not O2 dependent, she does have mostly albuterol with Atrovent updrafts 4 times a day and when necessary, not taking any other inhalers. She does have an albuterol inhaler, but she has no steroid inhalers, and no long acting beta agonist. Unfortunately again the patient continues to smoke on the average of 1/ 2-1 pack per day. In addition to her pulmonary symptoms, the patient is complaining of significant swelling and fluid retention in both lower extremities, and she seems to have what looks like an extensive cellulitis involving the left lower extremity. There is redness, swelling, tenderness in the left lower extremity, and she has a low-grade fever with a temp of 99. After being evaluatedi in the office the patient was recommended that she will need IV antibiotics. Patient iwas extremely reluctant to go to the hospital, but she was agreeable , and eventually come back to the ER sometime for evaluation and was admitted for IV antibiotics. In the meantime the patient was taking Bactrim for what seems to be a urinary tract infection presently has no active symptoms of UTI. On 09/08/2018 patient seen in follow-up on selective care unit. He sitting up on his bed, in no acute distress, she is on room air. Afebrile, hemodynamically stable, she states her breathing is improving, she has cough but no production of phlegm. Lower extremities are covered with Jaxson wrap's, ration is on Rocephin, she is receiving local wound care to lower extremities with Silvadene cream and dry dressings. She is on nebulized bronchodilators and IV steroids, and sounds are diminished, with a few scattered rhonchi. Urine culture showed group D enterococcus, blood culture was negative. Patient is asking to have her Imodium because she is having episodes of diarrhea, he states this is her baseline she takes metformin, and she takes for I Imodium per day Objective - Vital Signs Vital signs: Vital Signs Temp 97.6 F 09/08/18 07:57 Pulse 88 09/08/18 11:21 Resp 24 09/08/18 07:57 BP 164/72 09/08/18 07:57 Pulse Ox 96 09/08/18 07:57 Intake & Output 09/07/18 09/08/18 09/08/18 18:59 06:59 18:59 Intake Total 120 240 Output Total 1000 800 Balance -880 -800 240 Weight 95.9 kg Intake: Oral 120 240 Output: Urine 1000 800 Other: Voiding Method Bedside Commode # Voids 2 1 - Exam GENERAL EXAM: Alert, active, comfortable in no apparent distress. HEAD: Normocephalic/atraumatic. EYES: Normal reaction of pupils, equal size. Conjunctiva pink, sclera white. NOSE: Clear with pink turbinates. THROAT: No erythema or exudates. NECK: No masses, no JVD, no thyroid enlargement, no adenopathy. CHEST: No chest wall deformity. Symmetrical expansion. LUNGS: Equal air entry with a few scattered rhonchi CVS: Regular rate and rhythm, normal S1 and S2, no gallops, no murmurs, no rubs ABDOMEN: Soft, nontender. No hepatosplenomegaly, normal bowel sounds, no guarding or rigidity. EXTREMITIES: No clubbing, there is lower extremity edema, and cellulitis, both legs are covered with Jaxson wrap's no cyanosis, 2+ pulses and upper and lower extremities. MUSCULOSKELETAL: Muscle strength and tone normal. SPINE: No scoliosis or deformity SKIN: No rashes CENTRAL NERVOUS SYSTEM: Alert and oriented -3. No focal deficits, tone is normal in all 4 extremities. PSYCHIATRIC: Alert and oriented -3. Appropriate affect. Intact judgment and insight. - Labs CBC & Chem 7: 09/08/18 06:00 09/08/18 06:00 Labs: Abnormal Lab Results - Last 24 Hours (Table) 09/06/18 09/07/18 09/07/18 Range/Units 17:29 16:41 20:39 MCHC (31.0-37.0) g/dL RDW (11.5-15.5) % Neutrophils # (1.3-7.7) k/uL Lymphocytes # (1.0-4.8) k/uL Sodium (137-145) mmol/L Potassium (3.5-5.1) mmol/L BUN (7-17) mg/dL Glucose (74-99) mg/dL POC Glucose (mg/dL) 183 H 491 H (75-99) mg/dL Hemoglobin A1c 8.4 H (4.0-6.0) % 09/07/18 09/08/18 09/08/18 Range/Units 20:41 05:20 06:00 MCHC 30.9 L (31.0-37.0) g/dL RDW 15.7 H (11.5-15.5) % Neutrophils # 8.8 H (1.3-7.7) k/uL Lymphocytes # 0.6 L (1.0-4.8) k/uL Sodium (137-145) mmol/L Potassium (3.5-5.1) mmol/L BUN (7-17) mg/dL Glucose (74-99) mg/dL POC Glucose (mg/dL) 465 H 263 H (75-99) mg/dL Hemoglobin A1c (4.0-6.0) % 09/08/18 09/08/18 Range/Units 06:00 11:13 MCHC (31.0-37.0) g/dL RDW (11.5-15.5) % Neutrophils # (1.3-7.7) k/uL Lymphocytes # (1.0-4.8) k/uL Sodium 136 L (137-145) mmol/L Potassium 5.6 H (3.5-5.1) mmol/L BUN 29 H (7-17) mg/dL Glucose 254 H (74-99) mg/dL POC Glucose (mg/dL) 255 H (75-99) mg/dL Hemoglobin A1c (4.0-6.0) % Microbiology - Last 24 Hours (Table) 09/06/18 21:30 Urine Culture - Preliminary Urine,Voided Group D Enterococcus 09/06/18 17:29 Blood Culture - Preliminary Blood No Growth after 24 hours 09/06/18 23:12 Gram Stain - Preliminary Leg - Left Wound Culture - Preliminary 09/06/18 23:12 Anaerobic Culture - Preliminary Leg - Left Assessment and Plan Plan: 1 Acute exacerbation of chronic obstructive airways disease 2 chronic obstructive lung disease , and basilar recent pulmonary function test the patient has an FEV1 of 42% of predicted and a diffusion capacity of 45% of predicted consistent with seronegative airway disease 3 hypothyroidism 4 chronic cellulitis of the left lower extremity 5 osteoarthritis 6 type 2 diabetes mellitus without complications 7 smoker 8 depression 9 chronic back pain 10 nephrolithiasis 11 obesity with BMI of 39.9 Plan: Continue current medical treatment, patient is on room air, breathing easier, occasional cough, nonproductive. No significant wheezing on today's exam, continue with Rocephin, bronchodilators, and IV steroids, and IV Lasix. Stool for C. diff, patient is complaining of diarrhea, she states this is her baseline. She is getting Imodium. Continue to follow I performed a history & physical examination of the patient and discussed their management with my nurse practitioner, Taylor Sheriff. I reviewed the nurse practitioner's note and agree with the documented findings and plan of care. Lung sounds are positive for a few scattered rhonchi. The findings and the impression was discussed with the patient. I attest to the documentation by the nurse practitioner. Time with Patient: Less than 30
[2018-09-08] MEDS: INSULIN REGULAR 100 UNIT in SODIUM CHLORIDE 0.9% 100 ML IV SCH ×2 (12:31→22:01)
[2018-09-08 13:10] LABS: Glucose,Whole Blood 366 mg/dL (75-99)
[2018-09-08 13:41] LABS: Glucose,Whole Blood 189 mg/dL (75-99)
--- NOTE | 2018-09-08 14:51 | P.PN ---
Subjective Progress Note Date: 09/08/18 Principal diagnosis: COPD/CHF exacerbation This is a pleasant 68-year-old female patient with a past medical history significant for COPD, history of smoking, as well as multiple comorbid conditions, who was admitted to the hospital with acute exacerbation of COPD as well as CHF. The echocardiogram revealed normal LV function with mild MR and mild TR. On follow-up with the patient today, September 082018, she feels slightly better. She still have expiratory wheezing. The lower extremities edema is slightly better. The blood pressure continues to be not controlled and I am going to increase the dose of metoprolol to 25 mg by mouth 3 times a day. Objective - Vital Signs Vital signs: Vital Signs Temp 97.6 F 09/08/18 07:57 Pulse 62 09/08/18 12:00 Resp 24 09/08/18 12:00 BP 169/74 09/08/18 12:00 Pulse Ox 90 L 09/08/18 12:00 Intake & Output 09/07/18 09/08/18 09/08/18 18:59 06:59 18:59 Intake Total 120 342.850 Output Total 1000 800 Balance -880 -800 342.850 Weight 95.9 kg Intake: Intake, IV Titration 22.850 Amount Insulin Regular 100 unit 22.850 In Sodium Chloride 0.9% 100 ml @ Titrate IV .Q0M [facility] Rx#:[id number] Oral 120 320 Output: Urine 1000 800 Other: Voiding Method Bedside Commode # Voids 2 1 - Constitutional General appearance: Present: no acute distress - Respiratory Respiratory: bilateral: wheezing - Cardiovascular Rhythm: regular Heart sounds: normal: S1, S2 - Labs CBC & Chem 7: 09/08/18 06:00 09/08/18 06:00 Labs: Abnormal Lab Results - Last 24 Hours (Table) 09/07/18 09/07/18 09/07/18 Range/Units 16:41 20:39 20:41 MCHC (31.0-37.0) g/dL RDW (11.5-15.5) % Neutrophils # (1.3-7.7) k/uL Lymphocytes # (1.0-4.8) k/uL Sodium (137-145) mmol/L Potassium (3.5-5.1) mmol/L BUN (7-17) mg/dL Glucose (74-99) mg/dL POC Glucose (mg/dL) 183 H 491 H 465 H (75-99) mg/dL 09/08/18 09/08/18 09/08/18 Range/Units 05:20 06:00 06:00 MCHC 30.9 L (31.0-37.0) g/dL RDW 15.7 H (11.5-15.5) % Neutrophils # 8.8 H (1.3-7.7) k/uL Lymphocytes # 0.6 L (1.0-4.8) k/uL Sodium 136 L (137-145) mmol/L Potassium 5.6 H (3.5-5.1) mmol/L BUN 29 H (7-17) mg/dL Glucose 254 H (74-99) mg/dL POC Glucose (mg/dL) 263 H (75-99) mg/dL 09/08/18 09/08/18 09/08/18 Range/Units 11:13 13:08 13:39 MCHC (31.0-37.0) g/dL RDW (11.5-15.5) % Neutrophils # (1.3-7.7) k/uL Lymphocytes # (1.0-4.8) k/uL Sodium (137-145) mmol/L Potassium (3.5-5.1) mmol/L BUN (7-17) mg/dL Glucose (74-99) mg/dL POC Glucose (mg/dL) 255 H 366 H 189 H (75-99) mg/dL Microbiology - Last 24 Hours (Table) 09/06/18 21:30 Urine Culture - Preliminary Urine,Voided Group D Enterococcus 09/06/18 17:29 Blood Culture - Preliminary Blood No Growth after 24 hours 09/06/18 23:12 Gram Stain - Preliminary Leg - Left Wound Culture - Preliminary 09/06/18 23:12 Anaerobic Culture - Preliminary Leg - Left Assessment and Plan Assessment: Assessment #1 COPD exacerbation #2 mildly abnormal cardiac enzymes #3 CHF exacerbation secondary to diastole dysfunction #4 multiple comorbid conditions Plan #1 continue the current medical regimen including the current dose of Lasix #2 increase the dose of metoprolol for better blood pressure control #3 follow-up with the patient.
[2018-09-08 16:12] LABS: Glucose,Whole Blood 178 mg/dL (75-99)
[2018-09-08 18:30] LABS: Glucose,Whole Blood 306 mg/dL (75-99)
[2018-09-08 20:01] LABS: Glucose,Whole Blood 289 mg/dL (75-99)
[2018-09-08] MEDS: MONTELUKAST 10 MG TAB PO SCH (20:15)
[2018-09-08] MEDS: ARIPiprazole 5 MG TAB PO SCH (20:15)
--- NOTE | 2018-09-08 20:22 | PN ---
PROGRESS NOTE DATE OF SERVICE: 09/08/2018 This 68-year-old woman who was admitted with COPD exacerbation, acute purulent tracheobronchitis, being closely monitored. No chest pain. No palpitations. No fever. Cardiology and Pulmonology are following the patient closely. EXAM: Alert and oriented x3. Pulse is 82. Blood pressure 160/74, respiration 20, temperature 97.2, pulse ox 94% on 2 L. HEENT: Conjunctivae normal. Neck: No jugular venous distention. CARDIOVASCULAR: S1, S2 muffled. RESPIRATORY: Breath sounds diminished in the bases. A few scattered rhonchi and crackles. Expiratory wheezing also heard. Abdomen soft, nontender. CENTRAL NERVOUS SYSTEM: No focal deficits. LABORATORY DATA: WBC 9.8, hemoglobin 11.4, sodium 130, potassium 5.6, glucose 254, 366. ASSESSMENT: 1. Chronic obstructive pulmonary disease acute exacerbation with acute purulent tracheobronchitis with failure of outpatient treatment. 2. Troponin 0.60, rule out coronary artery disease. 3. Bilateral leg cellulitis, left more than right. 4. Increased creatinine with mild acute renal failure, possibly prerenal acute tubular necrosis. 5. Hyponatremia. 6. Increased WBC. 7. Asthma, chronic obstructive pulmonary disease. 8. History of diabetes type 2. 9. Hypertension. 10.History of degenerative joint disease. 11.Hypothyroidism. 12.Obesity with body mass index of 34.9. 13.History of depression. 14.History of glaucoma. 15.History of degenerative joint disease. 16.Chronic back pain. 17.Nephrolithiasis. 18.History of anxiety and depression. 19.Continued ongoing nicotine dependence. 20.FULL CODE. RECOMMENDATIONS AND DISCUSSION: Recommend to continue current medications, monitoring, management and symptomatic treatment. Otherwise, at this time, I would recommend continue with IV steroids. Continue the rest of the medications. Blood pressure medication has been adjusted. Closely follow with Pulmonary and Cardiology. Prognosis guarded because of multiple complex medical issues. Further recommendations to follow. MMODL / IJN: [id number] /
[2018-09-08] MEDS: ESCITALOPRAM 10 MG TAB PO SCH (22:00)
[2018-09-08 22:11] LABS: Glucose,Whole Blood 192 mg/dL (75-99)
[2018-09-08 23:58] LABS: Glucose,Whole Blood 147 mg/dL (75-99)
[2018-09-09 02:16] LABS: Glucose,Whole Blood 164 mg/dL (75-99)
[2018-09-09 04:06] LABS: Glucose,Whole Blood 173 mg/dL (75-99)
[2018-09-09 05:56] LABS: Glucose,Whole Blood 185 mg/dL (75-99)
[2018-09-09] MEDS: methylPREDNISolone SOD SUCCI 125 MG/2 ML VIAL IV SCH ×2 (06:16→12:16)
[2018-09-09] MEDS: INSULIN ASPART 100 UNIT/ML 1 ML 10 ML VIAL SQ SCH ×6 (06:16→21:41)
[2018-09-09] MEDS: LEVOTHYROXINE 50 MCG TAB PO SCH (06:16)
[2018-09-09] MEDS: PANTOPRAZOLE 40 MG TABLET PO SCH (06:17)
[2018-09-09 07:04] LABS: Basophils % (A) 0 %; Eosinophils % (A) 0 %; HCT 35.6 % (34.0-46.0); Hypochromasia Moderate; Lymphocytes # (A) 0.5 k/uL (1.0-4.8); Lymphocytes % (A) 4 %; MCH 26.9 pg (25.0-35.0); MCHC 30.8 g/dL (31.0-37.0); MCV 87.5 fL (80.0-100.0); Mean Platelet Volume 6.4; Monocytes # (A) 0.4 k/uL (0-1.0); Monocytes % (A) 3 %; Neutrophils % (A) 93 %; Platelet Count 320 k/uL (150-450); RBC 4.07 m/uL (3.80-5.40); RDW 15.9 % (11.5-15.5)
[2018-09-09 07:17] LABS: Anion Gap 5 mmol/L; Blood Urea Nitrogen 32 mg/dL (7-17); Calcium 9.1 mg/dL (8.4-10.2); Carbon Dioxide 26 mmol/L (22-30); Chloride 104 mmol/L (98-107); Glucose 176 mg/dL (74-99); Potassium 5.6 mmol/L (3.5-5.1); Sodium 135 mmol/L (137-145)
[2018-09-09 08:03] LABS: Glucose,Whole Blood 170 mg/dL (75-99)
[2018-09-09] MEDS: NICOTINE 14MG/24HR PATCH TRANSDERM SCH (08:51)
[2018-09-09] MEDS: ENOXAPARIN 40 MG/0.4 ML SYRINGE SQ SCH (08:51)
[2018-09-09] MEDS: FLUTICASONE 50MCG/SPRAY NASAL 16GM EA NOSTRIL SCH (08:52)
[2018-09-09] MEDS: metFORMIN 500 MG TAB PO SCH ×2 (08:52→21:56)
[2018-09-09] MEDS: FUROSEMIDE 10 MG/ML 4 ML VIAL IV SCH (08:52)
[2018-09-09] MEDS: ATORVASTATIN 40 MG TAB PO SCH (08:52)
[2018-09-09] MEDS: ASPIRIN 81 MG PO SCH (08:52)
[2018-09-09] MEDS: METOPROLOL TARTRATE 25 MG TAB PO SCH ×3 (08:53→19:46)
[2018-09-09] MEDS: BUDESONIDE 1 MG/2 ML NEBU INHALATION SCH ×2 (08:57→20:26)
[2018-09-09] MEDS: FORMOTEROL FUMARATE 20 MCG/2 ML NEBU INHALATION SCH ×2 (08:58→20:26)
[2018-09-09] MEDS: IPRATROPIUM-ALBUTEROL 3 ML NEB INHALATION SCH ×4 (08:58→20:26)
[2018-09-09 10:29] LABS: Glucose,Whole Blood 243 mg/dL (75-99)
[2018-09-09 12:08] LABS: Glucose,Whole Blood 174 mg/dL (75-99)
--- NOTE | 2018-09-09 13:09 | P.PN ---
Subjective Progress Note Date: 09/09/18 This is a 68-year-old female with known history of hypertension, diabetes, hyperlipidemia, nicotine dependence, anxiety and depression, hypothyroidism, asthma, cellulitis, COPD, recurrent UTIs who presented to the hospital on this occasion with symptoms of bilateral lower extremity edema and cellulitis with associated shortness of breath. According to the patient, she states for the past several weeks she's overall not been feeling well, she has had more shortness of breath than usual and is noticed bilateral swelling in her legs. A troponin was drawn in the emergency room which came back to be abnormal and for that reason a cardiology consultation was obtained. EKG performed on arrival here showed a normal sinus rhythm with no acute changes. Chest x-ray showed cardiomegaly with no heart failure. Venous duplex study of the left lower extremity was performed which came back negative for DVT. Blood pressure 152/70 with a heart rate in the 80s, 92% on 2 L of oxygen. White blood cell count on admission 12.6, 10.7 this morning, hemoglobin 10.9, platelet count 380. Sodium 136, potassium 5.3, BUN 29, creatinine 1.0. Magnesium level I.7, troponin on admission 0.060. Urinalysis positive for UTI, influenza A and B been negative. At the time of my examination this morning, patient is very sleepy, mildly short of breath. 09/09/2018 Patient was seen and examined this morning, overall she states she's feeling significantly better. She is definitely much more awake today. Her weight is down a half a kilogram today, continues to be on IV Lasix. An echocardiogram with Doppler study was performed which revealed an ejection fraction of 55-60%. Blood pressure at 8 AM this morning 184/94, at present 167/90. We will add a small dose of Norvasc to her medication regime. Follow-up chest x-ray today. Discontinue IV Lasix. Objective - Vital Signs Vital signs: Vital Signs Temp 97.9 F 09/08/18 23:43 Pulse 88 09/09/18 12:31 Resp 16 09/09/18 11:07 BP 184/94 09/09/18 08:00 Pulse Ox 93 L 09/09/18 08:00 Intake & Output 09/08/18 09/09/18 09/09/18 18:59 06:59 18:59 Intake Total 361.450 681.392 480 Output Total 700 1400 Balance 361.450 -18.608 -920 Weight 95.5 kg Intake: Intake, IV Titration 41.450 61.392 Amount Insulin Regular 100 unit 41.450 61.392 In Sodium Chloride 0.9% 100 ml @ Titrate IV .Q0M [facility] Rx#:[id number] Oral 320 620 480 Output: Urine 700 1400 Other: Voiding Method Bedside Commode Bedside Commode Bedside Commode # Voids 3 # Bowel Movements 3 1 - Exam PHYSICAL EXAMINATION: GENERAL: 68-year-old female in no acute distress at the time of my examination HEENT: Head is atraumatic, normocephalic. Pupils equal, round. Sclera anicteric. Conjunctiva are clear. Mucous membranes of the mouth are moist. Neck is supple. There is no elevated jugular venous pressure. No carotid bruit is heard. HEART EXAMINATION: Heart S1, S2 normal. No murmur or gallop heard. CHEST EXAMINATION: Lungs are clear with fine crackles to bilateral bases. ABDOMEN: Soft, nontender. Bowel sounds are heard. No organomegaly noted. EXTREMITIES: 2+ peripheral pulses with 1+ evidence of peripheral edema, left leg greater than right, dressing in place, bilateral ear erythema. Diuretics and subsequent troponins are negative. NEUROLOGIC patient is awake, alert and oriented 3 . - Labs CBC & Chem 7: 09/09/18 06:27 09/09/18 06:27 Labs: Abnormal Lab Results - Last 24 Hours (Table) 09/08/18 09/08/18 09/08/18 Range/Units 13:08 13:39 16:10 WBC (3.8-10.6) k/uL Hgb (11.4-16.0) gm/dL MCHC (31.0-37.0) g/dL RDW (11.5-15.5) % Neutrophils # (1.3-7.7) k/uL Lymphocytes # (1.0-4.8) k/uL Sodium (137-145) mmol/L Potassium (3.5-5.1) mmol/L BUN (7-17) mg/dL Glucose (74-99) mg/dL POC Glucose (mg/dL) 366 H 189 H 178 H (75-99) mg/dL 09/08/18 09/08/1819 Range/Units 18:29 20:00 22:00 WBC (3.8-10.6) k/uL Hgb (11.4-16.0) gm/dL MCHC (31.0-37.0) g/dL RDW (11.5-15.5) % Neutrophils # (1.3-7.7) k/uL Lymphocytes # (1.0-4.8) k/uL Sodium (137-145) mmol/L Potassium (3.5-5.1) mmol/L BUN (7-17) mg/dL Glucose (74-99) mg/dL POC Glucose (mg/dL) 306 H 289 H 192 H (75-99) mg/dL 09/08/18 09/09/18 09/09/18 Range/Units 23:57 02:02 04:04 WBC (3.8-10.6) k/uL Hgb (11.4-16.0) gm/dL MCHC (31.0-37.0) g/dL RDW (11.5-15.5) % Neutrophils # (1.3-7.7) k/uL Lymphocytes # (1.0-4.8) k/uL Sodium (137-145) mmol/L Potassium (3.5-5.1) mmol/L BUN (7-17) mg/dL Glucose (74-99) mg/dL POC Glucose (mg/dL) 147 H 164 H 173 H (75-99) mg/dL 09/09/18 09/09/18 09/09/18 Range/Units 05:54 06:27 06:27 WBC 14.0 H (3.8-10.6) k/uL Hgb 11.0 L (11.4-16.0) gm/dL MCHC 30.8 L (31.0-37.0) g/dL RDW 15.9 H (11.5-15.5) % Neutrophils # 13.0 H (1.3-7.7) k/uL Lymphocytes # 0.5 L (1.0-4.8) k/uL Sodium 135 L (137-145) mmol/L Potassium 5.6 H (3.5-5.1) mmol/L BUN 32 H (7-17) mg/dL Glucose 176 H (74-99) mg/dL POC Glucose (mg/dL) 185 H (75-99) mg/dL 09/09/18 09/09/18 09/09/18 Range/Units 07:58 10:27 11:48 WBC (3.8-10.6) k/uL Hgb (11.4-16.0) gm/dL MCHC (31.0-37.0) g/dL RDW (11.5-15.5) % Neutrophils # (1.3-7.7) k/uL Lymphocytes # (1.0-4.8) k/uL Sodium (137-145) mmol/L Potassium (3.5-5.1) mmol/L BUN (7-17) mg/dL Glucose (74-99) mg/dL POC Glucose (mg/dL) 170 H 243 H 174 H (75-99) mg/dL Microbiology - Last 24 Hours (Table) 09/06/18 23:12 Gram Stain - Final Leg - Left Wound Culture - Final 09/06/18 21:30 Urine Culture - Final Urine,Voided Enterococcus faecium 09/06/18 17:29 Blood Culture - Preliminary Blood No Growth after 48 hours Assessment and Plan Plan: Assessment and plan #1 COPD exacerbation with acute purulent tracheobronchitis #2 abnormal troponins, patient denies having any chest discomfort. EKG shows normal sinus rhythm with no acute changes. We will obtain 2 subsequent troponins and an echocardiogram with Doppler study. Her most recent echo was performed in January of last year which revealed an ejection fraction of 50-55%. #3 nicotine dependence #4 bilateral lower extremity cellulitis #5 UTI #6 diabetes #7 hypertension #8 hypothyroidism #9 obesity #10 depression #10 mild congestive heart failure, diastolic acute on Plan From cardiology's perspective, we will add a small dose of Norvasc for more optimal blood pressure control. Discontinue IV Lasix. Echocardiogram with Doppler study revealed a normal left ventricular systolic function. DNP note has been reviewed, I agree with a documented findings and plan of care. Patient was seen and examined.
--- NOTE | 2018-09-09 13:15 | XR ---
EXAMINATION TYPE: XR chest 2V DATE OF EXAM: 09/09/2018 COMPARISON: 09/06/2018 HISTORY: 68-year-old female follow-up CHF TECHNIQUE: PA and lateral views FINDINGS: Heart borderline to mildly enlarged. Mild left hemispheric calcifications. Mild interstitial prominen ce and some patchy mid and lower lung opacities, left greater than. No significant pleural effusion. IMPRESSION: 1. Borderline to mild cardiomegaly. 2. Interstitial changes could reflect mild pulmonary vascular congestion. 3. Some patchy mid and lower lung opacities, left greater than right slightly increased from prior co uld represent areas of atelectasis or developing infiltrates. The former is favored. Clinically corre late.
--- NOTE | 2018-09-09 13:50 | P.PN ---
Subjective Progress Note Date: 09/09/18 Principal diagnosis: Acute exacerbation of chronic obstructive airways disease This is a 68-year-old female known history of severe COPD, diagnosed many years ago, unfortunately she continues to smoke. We have seen this patient last in January of 2018 when she was admitted for acute COPD exacerbation, and at that time she was seen by me. Patient had workup including cardiac workup, and her echocardiogram was relatively unremarkable, she had good LV function. Her problems at the time included acute exacerbation of COPD, morbid obesity, type 2 diabetes, hypertension, depression, hypothyroidism, glaucoma, varicose veins involving lower extremities, chronic back pain and degenerative disc disease, nephrolithiasis, and history of recurrent cellulitis of lower extremities. Patient was eventually discharged home, and over the last 6 months the patient has been complaining of intermittent episodes of cough wheezing shortness of breath. Patient was evaluated in the ER back in late July for symptoms of COPD exacerbation, patient was advised admission but because of the long wait in the ER she went home AGAINST MEDICAL ADVICE. Patient was seen by her medical doctor, and he recommended evaluation of her COPD at our office. Patient is not O2 dependent, she does have mostly albuterol with Atrovent updrafts 4 times a day and when necessary, not taking any other inhalers. She does have an albuterol inhaler, but she has no steroid inhalers, and no long acting beta agonist. Unfortunately again the patient continues to smoke on the average of 1/ 2-1 pack per day. In addition to her pulmonary symptoms, the patient is complaining of significant swelling and fluid retention in both lower extremities, and she seems to have what looks like an extensive cellulitis involving the left lower extremity. There is redness, swelling, tenderness in the left lower extremity, and she has a low-grade fever with a temp of 99. After being evaluatedi in the office the patient was recommended that she will need IV antibiotics. Patient iwas extremely reluctant to go to the hospital, but she was agreeable , and eventually come back to the ER sometime for evaluation and was admitted for IV antibiotics. In the meantime the patient was taking Bactrim for what seems to be a urinary tract infection presently has no active symptoms of UTI. On 09/08/2018 patient seen in follow-up on selective care unit. He sitting up on his bed, in no acute distress, she is on room air. Afebrile, hemodynamically stable, she states her breathing is improving, she has cough but no production of phlegm. Lower extremities are covered with Jaxson wrap's, ration is on Rocephin, she is receiving local wound care to lower extremities with Silvadene cream and dry dressings. She is on nebulized bronchodilators and IV steroids, and sounds are diminished, with a few scattered rhonchi. Urine culture showed group D enterococcus, blood culture was negative. Patient is asking to have her Imodium because she is having episodes of diarrhea, he states this is her baseline she takes metformin, and she takes for I Imodium per day On 09/09/2018 patient seen in follow-up on [facility] care unit. She is sitting in bed, in no acute distress, she is wearing oxygen currently at 2 L per nasal cannula, her pulse ox is 93%, she states her breathing is improving, less short of breath, sounds are diminished, lower extremity edema is improving, patient is receiving local wound care to lower extremity cellulitis, and both legs are being Jaxson wrapped. Patient is on IV Rocephin for antibiotic coverage. Today's labs showed a PVC of 14.0, hemoglobin is 11, sodium is 135, potassium is 5.6, BUN is 32 and creatinine 0.58. Objective - Vital Signs Vital signs: Vital Signs Temp 97.9 F 09/08/18 23:43 Pulse 88 09/09/18 12:31 Resp 16 09/09/18 11:07 BP 184/94 09/09/18 08:00 Pulse Ox 93 L 09/09/18 08:00 Intake & Output 09/08/18 09/09/18 09/09/18 18:59 06:59 18:59 Intake Total 361.450 681.392 480 Output Total 700 1400 Balance 361.450 -18.608 -920 Weight 95.5 kg Intake: Intake, IV Titration 41.450 61.392 Amount Insulin Regular 100 unit 41.450 61.392 In Sodium Chloride 0.9% 100 ml @ Titrate IV .Q0M [facility] Rx#:[id number] Oral 320 620 480 Output: Urine 700 1400 Other: Voiding Method Bedside Commode Bedside Commode Bedside Commode # Voids 3 # Bowel Movements 3 1 - Exam GENERAL EXAM: Alert, active, comfortable in no apparent distress. HEAD: Normocephalic/atraumatic. EYES: Normal reaction of pupils, equal size. Conjunctiva pink, sclera white. NOSE: Clear with pink turbinates. THROAT: No erythema or exudates. NECK: No masses, no JVD, no thyroid enlargement, no adenopathy. CHEST: No chest wall deformity. Symmetrical expansion. LUNGS: Equal air entry, no rhonchi, no wheezes CVS: Regular rate and rhythm, normal S1 and S2, no gallops, no murmurs, no rubs ABDOMEN: Soft, nontender. No hepatosplenomegaly, normal bowel sounds, no guarding or rigidity. EXTREMITIES: No clubbing, there is lower extremity edema, and cellulitis, both legs are covered with Jaxson wrap's no cyanosis, 2+ pulses and upper and lower extremities. MUSCULOSKELETAL: Muscle strength and tone normal. SPINE: No scoliosis or deformity SKIN: No rashes CENTRAL NERVOUS SYSTEM: Alert and oriented -3. No focal deficits, tone is normal in all 4 extremities. PSYCHIATRIC: Alert and oriented -3. Appropriate affect. Intact judgment and insight. - Labs CBC & Chem 7: 09/09/18 06:27 09/09/18 06:27 Labs: Abnormal Lab Results - Last 24 Hours (Table) 09/08/18 09/08/18 09/08/18 Range/Units 13:39 16:10 18:29 WBC (3.8-10.6) k/uL Hgb (11.4-16.0) gm/dL MCHC (31.0-37.0) g/dL RDW (11.5-15.5) % Neutrophils # (1.3-7.7) k/uL Lymphocytes # (1.0-4.8) k/uL Sodium (137-145) mmol/L Potassium (3.5-5.1) mmol/L BUN (7-17) mg/dL Glucose (74-99) mg/dL POC Glucose (mg/dL) 189 H 178 H 306 H (75-99) mg/dL 09/08/18 09/08/18 09/08/18 Range/Units 20:00 22:00 23:57 WBC (3.8-10.6) k/uL Hgb (11.4-16.0) gm/dL MCHC (31.0-37.0) g/dL RDW (11.5-15.5) % Neutrophils # (1.3-7.7) k/uL Lymphocytes # (1.0-4.8) k/uL Sodium (137-145) mmol/L Potassium (3.5-5.1) mmol/L BUN (7-17) mg/dL Glucose (74-99) mg/dL POC Glucose (mg/dL) 289 H 192 H 147 H (75-99) mg/dL 09/09/18 09/09/18 09/09/18 Range/Units 02:02 04:04 05:54 WBC (3.8-10.6) k/uL Hgb (11.4-16.0) gm/dL MCHC (31.0-37.0) g/dL RDW (11.5-15.5) % Neutrophils # (1.3-7.7) k/uL Lymphocytes # (1.0-4.8) k/uL Sodium (137-145) mmol/L Potassium (3.5-5.1) mmol/L BUN (7-17) mg/dL Glucose (74-99) mg/dL POC Glucose (mg/dL) 164 H 173 H 185 H (75-99) mg/dL 09/09/18 09/09/18 09/09/18 Range/Units 06:27 06:27 07:58 WBC 14.0 H (3.8-10.6) k/uL Hgb 11.0 L (11.4-16.0) gm/dL MCHC 30.8 L (31.0-37.0) g/dL RDW 15.9 H (11.5-15.5) % Neutrophils # 13.0 H (1.3-7.7) k/uL Lymphocytes # 0.5 L (1.0-4.8) k/uL Sodium 135 L (137-145) mmol/L Potassium 5.6 H (3.5-5.1) mmol/L BUN 32 H (7-17) mg/dL Glucose 176 H (74-99) mg/dL POC Glucose (mg/dL) 170 H (75-99) mg/dL 09/09/18 09/09/18 Range/Units 10:27 11:48 WBC (3.8-10.6) k/uL Hgb (11.4-16.0) gm/dL MCHC (31.0-37.0) g/dL RDW (11.5-15.5) % Neutrophils # (1.3-7.7) k/uL Lymphocytes # (1.0-4.8) k/uL Sodium (137-145) mmol/L Potassium (3.5-5.1) mmol/L BUN (7-17) mg/dL Glucose (74-99) mg/dL POC Glucose (mg/dL) 243 H 174 H (75-99) mg/dL Microbiology - Last 24 Hours (Table) 09/06/18 23:12 Gram Stain - Final Leg - Left Wound Culture - Final 09/06/18 21:30 Urine Culture - Final Urine,Voided Enterococcus faecium 09/06/18 17:29 Blood Culture - Preliminary Blood No Growth after 48 hours Assessment and Plan Plan: 1 Acute exacerbation of chronic obstructive airways disease 2 chronic obstructive lung disease , and basilar recent pulmonary function test the patient has an FEV1 of 42% of predicted and a diffusion capacity of 45% of predicted consistent with seronegative airway disease 3 hypothyroidism 4 chronic cellulitis of the left lower extremity 5 osteoarthritis 6 type 2 diabetes mellitus without complications 7 smoker 8 depression 9 chronic back pain 10 nephrolithiasis 11 obesity with BMI of 39.9 Plan: Continue current treatment, patient continues to improve, no wheezing, no rhonchi on today's exam, she is near her baseline in terms of breathing, from pulmonary perspective she could be considered for discharge home today on prednisone taper, the attending to decide on her antibiotics, nebulized bronchodilators. We'll need follow-up in the office with Dr. Jha in 7-10 days. I performed a history & physical examination of the patient and discussed their management with my nurse practitioner, Taylor Sheriff. I reviewed the nurse practitioner's note and agree with the documented findings and plan of care. Lung sounds are positive for a few scattered rhonchi. The findings and the impression was discussed with the patient. I attest to the documentation by the nurse practitioner. Time with Patient: Less than 30
[2018-09-09 15:21] LABS: Glucose,Whole Blood 215 mg/dL (75-99)
[2018-09-09 16:31] LABS: Glucose,Whole Blood 195 mg/dL (75-99)
[2018-09-09 18:08] LABS: Glucose,Whole Blood 227 mg/dL (75-99)
[2018-09-09] MEDS: methylPREDNISolone SOD SUCCI 40 MG/ML 1 ML VIAL IV SCH ×2 (18:18→23:34)
[2018-09-09] MEDS: amLODIPine 5 MG TAB PO SCH (18:23)
[2018-09-09 20:01] LABS: Glucose,Whole Blood 284 mg/dL (75-99)
[2018-09-09] MEDS ORDERED: LISINOPRIL 10 MG TAB PO SCH (21:00)
[2018-09-09] MEDS: ARIPiprazole 5 MG TAB PO SCH (21:53)
[2018-09-09] MEDS: ESCITALOPRAM 10 MG TAB PO SCH (21:53)
[2018-09-09] MEDS: MONTELUKAST 10 MG TAB PO SCH (21:53)
[2018-09-09] MEDS: HYDROcodone/APAP 7.5-325MG 1 EACH TAB PO PRN (21:53)
[2018-09-09] MEDS: traZODone HCL 100 MG TAB PO PRN (21:54)
[2018-09-09 21:56] LABS: Glucose,Whole Blood 269 mg/dL (75-99)
[2018-09-09] MEDS: INSULIN REGULAR 100 UNIT in SODIUM CHLORIDE 0.9% 100 ML IV SCH (21:57)
[2018-09-09] MEDS ORDERED: VANCOMYCIN IV PER PHARMACY 1 EACH MISC MISCELLANE PRN (22:45)
[2018-09-09] MEDS: VANCOMYCIN 1,500 MG in SODIUM CHLORIDE 0.9% 250 ML IVPB SCH (23:34)
[2018-09-09 23:58] LABS: Glucose,Whole Blood 205 mg/dL (75-99)
--- NOTE | 2018-09-10 00:09 | P.PN ---
Subjective Progress Note Date: 09/09/18 Principal diagnosis: Acute COPD exacerbation Patient is a 68-year-old female with a known history of severe COPD,morbid obesity, type 2 diabetes, hypertension, depression, hypothyroidism, glaucoma, varicose veins involving lower extremities, chronic back pain and degenerative disc disease, nephrolithiasis, and history of recurrent cellulitis of lower extremities came to ER with complaints of cough wheezing and shortness of breath. Currently being treated for acute COPD exacerbation. Patient is also being treated for lower action to cellulitis. On 09/09/2018 Patient denied any complaints of worsening shortness of breath. Currently saturating well on 2 late nausea cannula. Bilateral lower extremities edema is improving and is Jaxson wrapped at this time. Currently on ceftriaxone at this time due to multiple medication ALLERGIES. Currently being continued on steroids and breathing treatments and pulmonary is following. Blood pressure is uncontrolled. Norvasc was added. Denied any complaints of chest pain. No nausea vomiting or abdominal pain. No fever no chills. Current medications reviewed. Objective - Vital Signs Vital signs: Vital Signs Temp 97.9 F 09/09/18 19:42 Pulse 86 09/09/18 20:49 Resp 17 09/09/18 19:42 BP 166/83 09/09/18 21:40 Pulse Ox 95 09/09/18 19:42 Intake & Output 09/09/18 09/09/18 09/10/18 06:59 18:59 06:59 Intake Total 681.392 960 73.025 Output Total 700 1400 2000 Balance -18.608 -440 -1926.975 Weight 95.5 kg Intake: Intake, IV Titration 61.392 73.025 Amount Insulin Regular 100 unit 61.392 73.025 In Sodium Chloride 0.9% 100 ml @ Titrate IV .Q0M [facility] Rx#:[id number] Oral 620 960 Output: Urine 700 1400 2000 Other: Voiding Method Bedside Commode Bedside Commode Bedside Commode # Bowel Movements 1 - Labs CBC & Chem 7: 09/09/18 06:27 09/09/18 06:27 Labs: Abnormal Lab Results - Last 24 Hours (Table) 09/08/18 09/09/18 09/09/18 Range/Units 23:57 02:02 04:04 WBC (3.8-10.6) k/uL Hgb (11.4-16.0) gm/dL MCHC (31.0-37.0) g/dL RDW (11.5-15.5) % Neutrophils # (1.3-7.7) k/uL Lymphocytes # (1.0-4.8) k/uL Sodium (137-145) mmol/L Potassium (3.5-5.1) mmol/L BUN (7-17) mg/dL Glucose (74-99) mg/dL POC Glucose (mg/dL) 147 H 164 H 173 H (75-99) mg/dL 09/09/18 09/09/18 09/09/18 Range/Units 05:54 06:27 06:27 WBC 14.0 H (3.8-10.6) k/uL Hgb 11.0 L (11.4-16.0) gm/dL MCHC 30.8 L (31.0-37.0) g/dL RDW 15.9 H (11.5-15.5) % Neutrophils # 13.0 H (1.3-7.7) k/uL Lymphocytes # 0.5 L (1.0-4.8) k/uL Sodium 135 L (137-145) mmol/L Potassium 5.6 H (3.5-5.1) mmol/L BUN 32 H (7-17) mg/dL Glucose 176 H (74-99) mg/dL POC Glucose (mg/dL) 185 H (75-99) mg/dL 09/09/18 09/09/18 09/09/18 Range/Units 07:58 10:27 11:48 WBC (3.8-10.6) k/uL Hgb (11.4-16.0) gm/dL MCHC (31.0-37.0) g/dL RDW (11.5-15.5) % Neutrophils # (1.3-7.7) k/uL Lymphocytes # (1.0-4.8) k/uL Sodium (137-145) mmol/L Potassium (3.5-5.1) mmol/L BUN (7-17) mg/dL Glucose (74-99) mg/dL POC Glucose (mg/dL) 170 H 243 H 174 H (75-99) mg/dL 01/21/19 01/21/19 01/21/19 Range/Units 15:11 16:10 18:05 WBC (3.8-10.6) k/uL Hgb (11.4-16.0) gm/dL MCHC (31.0-37.0) g/dL RDW (11.5-15.5) % Neutrophils # (1.3-7.7) k/uL Lymphocytes # (1.0-4.8) k/uL Sodium (137-145) mmol/L Potassium (3.5-5.1) mmol/L BUN (7-17) mg/dL Glucose (74-99) mg/dL POC Glucose (mg/dL) 215 H 195 H 227 H (75-99) mg/dL 09/09/18 09/09/18 Range/Units 20:00 21:54 WBC (3.8-10.6) k/uL Hgb (11.4-16.0) gm/dL MCHC (31.0-37.0) g/dL RDW (11.5-15.5) % Neutrophils # (1.3-7.7) k/uL Lymphocytes # (1.0-4.8) k/uL Sodium (137-145) mmol/L Potassium (3.5-5.1) mmol/L BUN (7-17) mg/dL Glucose (74-99) mg/dL POC Glucose (mg/dL) 284 H 269 H (75-99) mg/dL Microbiology - Last 24 Hours (Table) 09/06/18 17:29 Blood Culture - Preliminary Blood No Growth after 72 hours 09/06/18 23:12 Anaerobic Culture - Preliminary Leg - Left 09/06/18 23:12 Gram Stain - Final Leg - Left Wound Culture - Final 09/06/18 21:30 Urine Culture - Final Urine,Voided Enterococcus faecium Assessment and Plan Assessment: Acute COPD exacerbation. FEV1 of 42% of predicted Acute tracheobronchitis. bilateral lower extremity cellulitis. Failed outpatient therapy. Elevated troponin level. Ruled out ACS. Acute kidney injury. Improved Hypovolemic hyponatremia Chronic back pain Obesity with a BMI of 39.8 History of smoking Diabetes type 2 Hypothyroidism Anxiety/Depression Plan: Patient will be continued on IV steroids. Continue with the breathing treatments. Currently on ceftriaxone. Vancomycin has been added. Continue the current management and follow closely. And spit discharge in next 24 hours with moderately clinical improvement. Pulmonary is on board. Prognosis is guarded with multiple medical problems and comorbid conditions. Time with Patient: Greater than 30
[2018-09-10 02:10] LABS: Glucose,Whole Blood 164 mg/dL (75-99)
[2018-09-10 04:12] LABS: Glucose,Whole Blood 155 mg/dL (75-99)
[2018-09-10] MEDS: INSULIN ASPART 100 UNIT/ML 1 ML 10 ML VIAL SQ SCH (06:16)
[2018-09-10] MEDS: LEVOTHYROXINE 50 MCG TAB PO SCH (06:26)
[2018-09-10] MEDS: PANTOPRAZOLE 40 MG TABLET PO SCH (06:26)
[2018-09-10 06:29] LABS: Glucose,Whole Blood 140 mg/dL (75-99)
[2018-09-10 06:55] LABS: Basophils % (A) 0 %; Eosinophils % (A) 0 %; HCT 36.6 % (34.0-46.0); HGB 11.1 gm/dL (11.4-16.0); Hypochromasia Moderate; Lymphocytes # (A) 0.5 k/uL (1.0-4.8); Lymphocytes % (A) 4 %; MCH 26.4 pg (25.0-35.0); MCHC 30.2 g/dL (31.0-37.0); MCV 87.4 fL (80.0-100.0); Mean Platelet Volume 6.1; Monocytes # (A) 0.4 k/uL (0-1.0); Monocytes % (A) 3 %; Neutrophils # (A) 11.2 k/uL (1.3-7.7); Neutrophils % (A) 92 %; Platelet Count 339 k/uL (150-450); RBC 4.19 m/uL (3.80-5.40); RDW 15.8 % (11.5-15.5); WBC 12.2 k/uL (3.8-10.6)
[2018-09-10 07:18] LABS: Anion Gap 4 mmol/L; Blood Urea Nitrogen 28 mg/dL (7-17); Calcium 9.1 mg/dL (8.4-10.2); Carbon Dioxide 28 mmol/L (22-30); Chloride 105 mmol/L (98-107); Glucose 129 mg/dL (74-99); Potassium 5.4 mmol/L (3.5-5.1); Sodium 137 mmol/L (137-145)
[2018-09-10] MEDS: FORMOTEROL FUMARATE 20 MCG/2 ML NEBU INHALATION SCH (07:24)
[2018-09-10] MEDS: BUDESONIDE 1 MG/2 ML NEBU INHALATION SCH (07:24)
[2018-09-10] MEDS: IPRATROPIUM-ALBUTEROL 3 ML NEB INHALATION SCH ×3 (07:24→15:30)
[2018-09-10 08:03] LABS: Glucose,Whole Blood 136 mg/dL (75-99)
[2018-09-10] MEDS ORDERED: amLODIPine 5 MG TAB PO SCH (09:00)
--- NOTE | 2018-09-10 09:57 | P.CONS ---
History of Present Illness - Reason for Consult Consult date: 09/10/18 Enterobacter facing him in urine, bilateral lower extremity cellulitis - History of Present Illness This is a 68-year-old female well known to ID service as she was [facility] the [facility] ulcer on the left lower leg and last seen in August 2017 at that time was discharged from service due to wound healing. Patient presented to the hospital on September 06 with complaints of lower extremity edema and shortness of breath and occasional fever. Patient was admitted to the hospital and seen in consultation by cardiology for elevated troponins, acute coronary syndrome ruled out, mild acute diastolic heart failure and medications were adjusted and patient prepared for discharge. Patient was also seen by Dr. Pierre for acute exacerbation of COPD and he has cleared the patient for discharge. Patient has been afebrile, white count 12.2, creatinine 0.48. Urinalysis is clear, leukoesterase large, WBC 37. Influenza testing was negative. Patient denies having any burning or pain with urination. She was treated with Bactrim prior to her admission. Urine culture has returned back positive for Enterococcus faecium. Blood culture showing no growth at 72 hours and wound culture is showing normal skin mendoza. The patient has been treated for the lower extremity cellulitis with Silvadene wraps which she states has made improvement. Patient has been on Rocephin and vancomycin as well. Patient verbalizes that she is very anxious to be discharged home today and to be done as early as possible. Review of Systems All systems: negative Constitutional: Denies anorexia, Denies chills, Denies fatigue, Denies fever, Denies poor appetite, Denies weakness, Denies weight loss Eyes: denies blurred vision, denies pain Ears, nose, mouth and throat: Denies dental pain, Denies dysphagia, Denies headache, Denies mouth pain, Denies sore throat, Denies vertigo Cardiovascular: Reports edema, Reports leg edema, Reports shortness of breath, Denies chest pain, Denies lightheadedness, Denies syncope Respiratory: Reports dyspnea, Denies cough, Denies cough with sputum, Denies excessive sputum, Denies hemoptysis, Denies home oxygen, Denies wheezing Gastrointestinal: Denies abdominal pain, Denies diarrhea, Denies loss of appetite, Denies nausea, Denies vomiting Genitourinary: Denies dysuria, Denies hematuria, Denies urgency, Denies urinary frequency Musculoskeletal: Denies frequent falls, Denies gait dysfunction, Denies muscle weakness, Denies myalgias Integumentary: Reports color changes, Reports darkening of skin, Reports wounds , Denies pruritus, Denies rash Neurological: Denies aphasia, Denies change in mentation, Denies change in speech, Denies gait dysfunction, Denies numbness, Denies seizures, Denies weakness Psychiatric: Denies anxiety, Denies depression Endocrine: Denies fatigue, Denies weight change Past Medical History Past Medical History: Asthma, Chest Pain / Angina, COPD, Diabetes Mellitus, Hypertension, Osteoarthritis (OA), Respiratory Disorder, Skin Disorder, Thyroid Disorder Additional Past Medical History / Comment(s): Obesity (BMI 35) COPD, asthma, diabetes , depression, 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 The patient is also a smoker. The patient has chronic back pain. History of Any Multi-Drug Resistant Organisms: None Reported Past Surgical History: Appendectomy, Section, Cholecystectomy, Orthopedic Surgery, Tubal Ligation Additional Past Surgical History / Comment(s): LASER SX JETHRO EYES FOR GLAUCOMA. RT KNEE ARTHROSCOPY. UNDERWENT PERCUTANEOUS NEPHROSTOLITHOTOMY Past Anesthesia/Blood Transfusion Reactions: No Reported Reaction Smoking Status: Current every day smoker Additional Past Alcohol Use History / Comment(s): Patient is an active smoker one pack per day and started smoking in 1968. She denies any marijuana, illicit drug use or alcohol use. She is and lives at home with her . There are 2 dogs and 2 cats in the home. No service and no travel history. - Past Family History Mother Additional Family Medical History / Comment(s): emphysema, heart valve problems , in her slepp. Brother(s) Family Medical History: Cancer Additional Family Medical History / Comment(s): from oral cancer Father Brother(s) Family Medical History: Cancer Additional Family Medical History / Comment(s): heart disease Medications and Allergies Home Medications Medication Instructions Recorded Confirmed Type Aspirin 81 mg PO DAILY 02/06/14 09/06/18 History HYDROcodone/APAP 7.5-325MG [[place] 1 tab PO Q6H PRN 02/06/14 09/06/18 History 7.5-325] Zafirlukast [Accolate] 20 mg PO BID 02/06/14 09/06/18 History Ergocalciferol [Vitamin D2 50,000 unit PO Q7D 12/10/14 09/06/18 History (DRISDOL)] Levothyroxine Sodium [Synthroid] 175 mcg PO DAILY 12/10/14 09/06/18 History Albuterol Inhaler [Ventolin Hfa 2 puff INHALATION RT-Q4H PRN #0 09/07/15 Rx Inhaler] ARIPiprazole [Abilify] 5 mg PO HS 02/07/18 09/06/18 History Fluticasone Nasal [place] [Flonase 1 - 2 spray EA NOSTRIL DAILY 02/07/18 09/06/18 History Nasal [place]] Glimepiride [Amaryl] 2 mg PO AC-BRKFST 02/07/18 09/06/18 History metFORMIN HCL [Glucophage] 500 mg PO BID 02/07/18 09/06/18 History traZODone HCL 100 mg PO HS PRN 02/07/18 09/06/18 History Ipratropium-Albuterol Nebulize 3 ml INHALATION RT-QID #120 02/09/18 09/06/18 Rx [Duoneb 0.5 mg-3 mg/3 ml Soln] ampul.neb Escitalopram [Lexapro] 10 mg PO HS 09/08/18 09/08/18 History Lisinopril [Zestril] 10 mg PO HS 09/09/18 09/09/18 History Atorvastatin [Lipitor] 40 mg PO DAILY #30 tab 09/10/18 Rx Doxycycline Monohydrate [Monodox] 100 mg PO Q12HR #14 cap 09/10/18 Rx Metoprolol Tartrate [Lopressor] 25 mg PO TID #90 tab 09/10/18 Rx amLODIPine [Norvasc] 10 mg PO DAILY #30 tab 09/10/18 Rx predniSONE See Taper PO DAILY #18 tab 09/10/18 Rx Allergies Allergy/AdvReac Type Severity Reaction Status Date / Time adhesive Allergy Rash/Hives Verified 09/06/18 17:37 ciprofloxacin [From Cipro] Allergy Rash/Hives Verified 09/06/18 17:37 ciprofloxacin HCl Allergy Rash/Hives Verified 09/06/18 17:37 [From Cipro] latex Allergy Rash/Hives Verified 09/06/18 17:37 nitrofurantoin Allergy Rash/Hives Verified 09/06/18 17:37 [From Macrobid] nitrofurantoin Allergy Rash/Hives Verified 09/06/18 17:37 macrocrystalline [From Macrobid] Penicillins Allergy Rash/Hives Verified 09/06/18 17:37 propoxyphene HCl Allergy Rash/Hives Verified 09/06/18 17:37 [From Darvon] propoxyphene napsylate Allergy Unknown Verified 09/06/18 17:37 [From Darvocet-N] Physical Exam Vitals: Vital Signs Temp Pulse Pulse Resp BP Pulse Ox 09/10/18 09:01 68 09/10/18 08:51 65 09/10/18 08:39 63 96 09/10/18 07:33 97.6 F 60 18 149/71 96 09/10/18 04:00 77 17 159/82 95 09/10/18 00:00 74 17 143/70 96 09/09/18 21:40 166/83 09/09/18 20:49 86 09/09/18 20:38 84 09/09/18 20:37 84 09/09/18 20:27 76 09/09/18 19:42 97.9 F 76 17 220/88 95 09/09/18 16:31 88 09/09/18 16:20 84 09/09/18 16:00 16 09/09/18 12:31 88 09/09/18 12:18 88 09/09/18 12:00 76 16 166/83 92 L 09/09/18 11:07 16 09/09/18 09:25 88 09/09/18 09:11 88 Intake and Output 09/09/18 09/10/18 09/10/18 22:59 06:59 14:59 Intake Total 313.025 40.392 240 Output Total 1999 1100 Balance -1686.975 -1059.608 240 Intake: Intake, IV Titration 73.025 40.392 Amount Insulin Regular 100 unit 73.025 40.392 In Sodium Chloride 0.9% 100 ml @ Titrate IV .Q0M [facility] Rx#:[id number] Oral 240 240 Output: Urine 2000 1100 Other: Voiding Method Bedside Commode Bedside Commode Weight 96.8 kg Gen: This is a 68-year-old morbidly obese female. She is sitting up in bed and appears to be comfortable and in no acute distress. Patient is able to speak in full sentences. HEENT: Head is atraumatic, normocephalic. Pupils equal, round. Sclerae is anicteric. Conjunctiva pink. Mucous members of the mouth are moist. No thrush noted. No erythema and edema of the oral pharynx. NECK: Supple. No JVD. No lymphadenopathy. No thyromegaly. LUNGS: Clear to auscultation. No wheezes or rhonchi. No intercostal retractions. HEART: Regular rate and rhythm. No murmur. ABDOMEN: Morbidly obese. Soft. Bowel sounds are present. No masses. No tenderness. EXTREMITIES: Jaxson wraps in place to the bilateral lower extremities which was not removed for evaluation. Deferred to Dr. Torres. NEUROLOGICAL: Patient is awake, alert and oriented x3. Cranial nerves 2 through 12 are grossly intact. Results Results: Laboratory Results WBC 12.2 k/uL (3.8-10.6) H 09/10/18 06:07 RBC 4.19 m/uL (3.80-5.40) 09/10/18 06:07 Hgb 11.1 gm/dL (11.4-16.0) L 09/10/18 06:07 Hct 36.6 % (34.0-46.0) 09/10/18 06:07 MCV 87.4 fL (80.0-100.0) 09/10/18 06:07 MCH 26.4 pg (25.0-35.0) 09/10/18 06:07 MCHC 30.2 g/dL (31.0-37.0) L 09/10/18 06:07 RDW 15.8 % (11.5-15.5) H 09/10/18 06:07 Plt Count 339 k/uL (150-450) 09/10/18 06:07 Neutrophils % 92 % 09/10/18 06:07 Lymphocytes % 4 % 09/10/18 06:07 Monocytes % 3 % 09/10/18 06:07 Eosinophils % 0 % 09/10/18 06:07 Basophils % 0 % 09/10/18 06:07 Neutrophils # 11.2 k/uL (1.3-7.7) H 09/10/18 06:07 Lymphocytes # 0.5 k/uL (1.0-4.8) L 09/10/18 06:07 Monocytes # 0.4 k/uL (0-1.0) 09/10/18 06:07 Eosinophils # 0.0 k/uL (0-0.7) 09/10/18 06:07 Basophils # 0.0 k/uL (0-0.2) 09/10/18 06:07 Hypochromasia Moderate 09/10/18 06:07 PT 10.3 sec (9.0-12.0) 09/06/18 17:29 INR 1.0 (<1.2) 09/06/18 17:29 APTT 24.6 sec (22.0-30.0) 09/06/18 17:29 Sodium 137 mmol/L (137-145) 09/10/18 06:07 Potassium 5.4 mmol/L (3.5-5.1) H 09/10/18 06:07 Chloride 105 mmol/L (98-107) 09/10/18 06:07 Carbon Dioxide 28 mmol/L (22-30) 09/10/18 06:07 Anion Gap 4 mmol/L 09/10/18 06:07 BUN 28 mg/dL (7-17) H 09/10/18 06:07 Creatinine 0.48 mg/dL (0.52-1.04) L 09/10/18 06:07 Est GFR (CKD-EPI)AfAm >90 (>60 ml/min/1.73 sqM) 09/10/18 06:07 Est GFR (CKD-EPI)NonAf >90 (>60 ml/min/1.73 sqM) 09/10/18 06:07 Glucose 129 mg/dL (74-99) H 09/10/18 06:07 POC Glucose (mg/dL) 136 mg/dL (75-99) H 09/10/18 08:00 POC Glu Dining Room Busser ID Marizol Christiansen 09/10/18 08:[address] Glu mg/dL 194 01/18/19 17:29 Hemoglobin A1c 8.4 % (4.0-6.0) H 09/06/18 17:29 Plasma Lactic Acid Ravi 1.1 mmol/L (0.7-2.0) 09/06/18 17:29 Calcium 9.1 mg/dL (8.4-10.2) 09/10/18 06:07 Phosphorus 5.1 mg/dL (2.5-4.5) H 09/06/18 17:29 Magnesium 1.7 mg/dL (1.6-2.3) 09/06/18 17:29 Total Bilirubin 0.2 mg/dL (0.2-1.3) 09/06/18 17:29 AST 21 U/L (14-36) 09/06/18 17:29 ALT 41 U/L (9-52) 09/06/18 17:29 Alkaline Phosphatase 78 U/L (38-126) 09/06/18 17:29 Total Creatine Kinase 86 U/L (30-135) 09/06/18 17:29 CK-MB (CK-2) 2.6 ng/mL (0.0-2.4) H 09/06/18 17:29 CK-MB (CK-2) Rel Index 3.0 09/06/18 17:29 Troponin I 0.020 ng/mL (0.000-0.034) 09/07/18 19:17 Total Protein 6.3 g/dL (6.3-8.2) 09/06/18 17:29 Albumin 3.5 g/dL (3.5-5.0) 09/06/18 17:29 Urine Color Yellow 09/06/18 21:30 Urine Appearance Clear (Clear) 09/06/18 21:30 Urine pH 5.5 (5.0-8.0) 09/06/18 21:30 Ur Specific [place] 1.011 (1.001-1.035) 09/06/18 21:30 Urine Protein Negative (Negative) 09/06/18 21:30 Urine Glucose (UA) Negative (Negative) 09/06/18 21:30 Urine Ketones Negative (Negative) 09/06/18 21:30 Urine Blood Negative (Negative) 09/06/18 21:30 Urine Nitrite Negative (Negative) 01/18/19 21:30 Urine Bilirubin Negative (Negative) 09/06/18 21:30 Urine Urobilinogen <2.0 mg/dL (<2.0) 09/06/18 21:30 Ur Leukocyte Esterase Large (Negative) H 09/06/18 21:30 Urine RBC <1 /hpf (0-5) 09/06/18 21:30 Urine WBC 37 /hpf (0-5) H 09/06/18 21:30 Ur Squamous Epith Cells 1 /hpf (0-4) 09/06/18 21:30 Hyaline Casts 4 /lpf (0-2) H 09/06/18 21:30 Influenza Type A RNA Not Detected (Not Detectd) 09/06/18 23:12 Influenza Type B (PCR) Not Detected (Not Detectd) 09/06/18 23:12 CBC & Chem 7: 09/10/18 06:07 09/10/18 06:07 Labs: Abnormal Lab Results - Last 24 Hours (Table) 09/09/18 09/09/18 09/09/18 Range/Units 10:27 11:48 15:11 WBC (3.8-10.6) k/uL Hgb (11.4-16.0) gm/dL MCHC (31.0-37.0) g/dL RDW (11.5-15.5) % Neutrophils # (1.3-7.7) k/uL Lymphocytes # (1.0-4.8) k/uL Potassium (3.5-5.1) mmol/L BUN (7-17) mg/dL Creatinine (0.52-1.04) mg/dL Glucose (74-99) mg/dL POC Glucose (mg/dL) 243 H 174 H 215 H (75-99) mg/dL 09/09/18 09/09/18 09/09/18 Range/Units 16:10 18:05 20:00 WBC (3.8-10.6) k/uL Hgb (11.4-16.0) gm/dL MCHC (31.0-37.0) g/dL RDW (11.5-15.5) % Neutrophils # (1.3-7.7) k/uL Lymphocytes # (1.0-4.8) k/uL Potassium (3.5-5.1) mmol/L BUN (7-17) mg/dL Creatinine (0.52-1.04) mg/dL Glucose (74-99) mg/dL POC Glucose (mg/dL) 195 H 227 H 284 H (75-99) mg/dL 09/09/18 09/09/18 09/10/18 Range/Units 21:54 23:58 01:59 WBC (3.8-10.6) k/uL Hgb (11.4-16.0) gm/dL MCHC (31.0-37.0) g/dL RDW (11.5-15.5) % Neutrophils # (1.3-7.7) k/uL Lymphocytes # (1.0-4.8) k/uL Potassium (3.5-5.1) mmol/L BUN (7-17) mg/dL Creatinine (0.52-1.04) mg/dL Glucose (74-99) mg/dL POC Glucose (mg/dL) 269 H 205 H 164 H (75-99) mg/dL 09/10/18 09/10/18 09/10/18 Range/Units 04:01 06:07 06:07 WBC 12.2 H (3.8-10.6) k/uL Hgb 11.1 L (11.4-16.0) gm/dL MCHC 30.2 L (31.0-37.0) g/dL RDW 15.8 H (11.5-15.5) % Neutrophils # 11.2 H (1.3-7.7) k/uL Lymphocytes # 0.5 L (1.0-4.8) k/uL Potassium 5.4 H (3.5-5.1) mmol/L BUN 28 H (7-17) mg/dL Creatinine 0.48 L (0.52-1.04) mg/dL Glucose 129 H (74-99) mg/dL POC Glucose (mg/dL) 155 H (75-99) mg/dL 09/10/18 09/10/18 Range/Units 06:18 08:00 WBC (3.8-10.6) k/uL Hgb (11.4-16.0) gm/dL MCHC (31.0-37.0) g/dL RDW (11.5-15.5) % Neutrophils # (1.3-7.7) k/uL Lymphocytes # (1.0-4.8) k/uL Potassium (3.5-5.1) mmol/L BUN (7-17) mg/dL Creatinine (0.52-1.04) mg/dL Glucose (74-99) mg/dL POC Glucose (mg/dL) 140 H 136 H (75-99) mg/dL Microbiology - Last 24 Hours (Table) 09/06/18 17:29 Blood Culture - Preliminary Blood No Growth after 72 hours 09/06/18 23:12 Anaerobic Culture - Preliminary Leg - Left 09/06/18 23:12 Gram Stain - Final Leg - Left Wound Culture - Final Assessment and Plan Plan: This is a 68-year-old female who presents for hospital with shortness of breath and lower extremity edema and cellulitis status post treatment for acute exacerbation of COPD and mild acute diastolic heart failure. Cellulitis is improved since she has been admitted. Patient was also on Bactrim prior to admission possibly due to urinary tract infection but patient currently denies any urinary symptoms. Urine culture is positive for enterococcus faecium and blood culture showing no growth. Patient has been on Rocephin and vancomycin. Continue supportive care. Further recommendations as patient progresses. The above dictated assessment and findings were discussed with Dr. Torres. The impression and plan of care have been directed as dictated. Maribell Vargas nurse practitioner acting as scribe for Dr. Torres.
[2018-09-10 09:58] VITALS: TEMP 97.8
[2018-09-10 10:02] LABS: Glucose,Whole Blood 166 mg/dL (75-99)
[2018-09-10] MEDS: NICOTINE 14MG/24HR PATCH TRANSDERM SCH (10:41)
[2018-09-10] MEDS: methylPREDNISolone SOD SUCCI 40 MG/ML 1 ML VIAL IV SCH (10:41)
[2018-09-10] MEDS: ASPIRIN 81 MG PO SCH (10:43)
[2018-09-10] MEDS: ATORVASTATIN 40 MG TAB PO SCH (10:43)
[2018-09-10] MEDS: amLODIPine 5 MG TAB PO SCH (10:43)
[2018-09-10] MEDS: ENOXAPARIN 40 MG/0.4 ML SYRINGE SQ SCH (10:44)
[2018-09-10] MEDS: FLUTICASONE 50MCG/SPRAY NASAL 16GM EA NOSTRIL SCH (10:44)
[2018-09-10] MEDS: metFORMIN 500 MG TAB PO SCH (10:45)
[2018-09-10] MEDS: METOPROLOL TARTRATE 25 MG TAB PO SCH (10:45)
[2018-09-10] MEDS: VANCOMYCIN 1,500 MG in SODIUM CHLORIDE 0.9% 250 ML IVPB SCH (10:47)
[2018-09-10 12:07] VITALS: BP 153/80
[2018-09-10 12:16] LABS: Glucose,Whole Blood 137 mg/dL (75-99)
--- NOTE | 2018-09-10 13:02 | P.PN ---
Subjective Progress Note Date: 09/10/18 Principal diagnosis: Acute exacerbation of chronic obstructive airways disease This is a 68-year-old female known history of severe COPD, diagnosed many years ago, unfortunately she continues to smoke. We have seen this patient last in January of 2018 when she was admitted for acute COPD exacerbation, and at that time she was seen by me. Patient had workup including cardiac workup, and her echocardiogram was relatively unremarkable, she had good LV function. Her problems at the time included acute exacerbation of COPD, morbid obesity, type 2 diabetes, hypertension, depression, hypothyroidism, glaucoma, varicose veins involving lower extremities, chronic back pain and degenerative disc disease, nephrolithiasis, and history of recurrent cellulitis of lower extremities. Patient was eventually discharged home, and over the last 6 months the patient has been complaining of intermittent episodes of cough wheezing shortness of breath. Patient was evaluated in the ER back in late July for symptoms of COPD exacerbation, patient was advised admission but because of the long wait in the ER she went home AGAINST MEDICAL ADVICE. Patient was seen by her medical doctor, and he recommended evaluation of her COPD at our office. Patient is not O2 dependent, she does have mostly albuterol with Atrovent updrafts 4 times a day and when necessary, not taking any other inhalers. She does have an albuterol inhaler, but she has no steroid inhalers, and no long acting beta agonist. Unfortunately again the patient continues to smoke on the average of 1/ 2-1 pack per day. In addition to her pulmonary symptoms, the patient is complaining of significant swelling and fluid retention in both lower extremities, and she seems to have what looks like an extensive cellulitis involving the left lower extremity. There is redness, swelling, tenderness in the left lower extremity, and she has a low-grade fever with a temp of 99. After being evaluatedi in the office the patient was recommended that she will need IV antibiotics. Patient iwas extremely reluctant to go to the hospital, but she was agreeable , and eventually come back to the ER sometime for evaluation and was admitted for IV antibiotics. In the meantime the patient was taking Bactrim for what seems to be a urinary tract infection presently has no active symptoms of UTI. On 09/08/2018 patient seen in follow-up on selective care unit. He sitting up on his bed, in no acute distress, she is on room air. Afebrile, hemodynamically stable, she states her breathing is improving, she has cough but no production of phlegm. Lower extremities are covered with Jaxson wrap's, ration is on Rocephin, she is receiving local wound care to lower extremities with Silvadene cream and dry dressings. She is on nebulized bronchodilators and IV steroids, and sounds are diminished, with a few scattered rhonchi. Urine culture showed group D enterococcus, blood culture was negative. Patient is asking to have her Imodium because she is having episodes of diarrhea, he states this is her baseline she takes metformin, and she takes for I Imodium per day On 09/09/2018 patient seen in follow-up on selective care unit. She is sitting in bed, in no acute distress, she is wearing oxygen currently at 2 L per nasal cannula, her pulse ox is 93%, she states her breathing is improving, less short of breath, sounds are diminished, lower extremity edema is improving, patient is receiving local wound care to lower extremity cellulitis, and both legs are being Jaxson wrapped. Patient is on IV Rocephin for antibiotic coverage. Today's labs showed a PVC of 14.0, hemoglobin is 11, sodium is 135, potassium is 5.6, BUN is 32 and creatinine 0.58. On 09/10/2018 patient seen in follow-up on selective care unit, yesterday she was found to have evidence of Enterobacter faecium in the urine culture, and vancomycin was added. Patient has multiple ALLERGIES, and IV service was consulted. From pulmonary perspective she is doing better, less dyspneic, lung sounds are diminished, no rhonchi or wheezing on today's exam, no fever or chills, currently she is on 2 L per nasal cannula her pulse ox is 97%. She really would like to go home today, she is to be seen by the ID service, and we were able to come as the patient to stay to be seen by Dr. Torres. Objective - Vital Signs Vital signs: Vital Signs Temp 97.8 F 09/10/18 12:15 Pulse 58 L 09/10/18 12:15 Resp 17 09/10/18 12:15 BP 153/80 09/10/18 12:15 Pulse Ox 97 09/10/18 12:00 Intake & Output 09/09/18 09/10/18 09/10/18 18:59 06:59 18:59 Intake Total 960 113.417 240 Output Total 1400 3100 Balance -440 -6206.583 240 Weight 96.8 kg Intake: Intake, IV Titration 113.417 Amount Insulin Regular 100 unit 113.417 In Sodium Chloride 0.9% 100 ml @ Titrate IV .Q0M [facility] Rx#:[id number] Oral 960 240 Output: Urine 1400 3100 Other: Voiding Method Bedside Commode Bedside Commode Bedside Commode # Bowel Movements 1 - Exam GENERAL EXAM: Alert, active, comfortable in no apparent distress. HEAD: Normocephalic/atraumatic. EYES: Normal reaction of pupils, equal size. Conjunctiva pink, sclera white. NOSE: Clear with pink turbinates. THROAT: No erythema or exudates. NECK: No masses, no JVD, no thyroid enlargement, no adenopathy. CHEST: No chest wall deformity. Symmetrical expansion. LUNGS: Equal air entry, no rhonchi, no wheezes CVS: Regular rate and rhythm, normal S1 and S2, no gallops, no murmurs, no rubs ABDOMEN: Soft, nontender. No hepatosplenomegaly, normal bowel sounds, no guarding or rigidity. EXTREMITIES: No clubbing, there is lower extremity edema, and cellulitis, both legs are covered with Jaxson wrap's no cyanosis, 2+ pulses and upper and lower extremities. MUSCULOSKELETAL: Muscle strength and tone normal. SPINE: No scoliosis or deformity SKIN: No rashes CENTRAL NERVOUS SYSTEM: Alert and oriented -3. No focal deficits, tone is normal in all 4 extremities. PSYCHIATRIC: Alert and oriented -3. Appropriate affect. Intact judgment and insight. - Labs CBC & Chem 7: 09/10/18 06:07 09/10/18 06:07 Labs: Abnormal Lab Results - Last 24 Hours (Table) 09/09/18 09/09/18 09/09/18 Range/Units 15:11 16:10 18:05 WBC (3.8-10.6) k/uL Hgb (11.4-16.0) gm/dL MCHC (31.0-37.0) g/dL RDW (11.5-15.5) % Neutrophils # (1.3-7.7) k/uL Lymphocytes # (1.0-4.8) k/uL Potassium (3.5-5.1) mmol/L BUN (7-17) mg/dL Creatinine (0.52-1.04) mg/dL Glucose (74-99) mg/dL POC Glucose (mg/dL) 215 H 195 H 227 H (75-99) mg/dL 09/09/18 09/09/18 09/09/18 Range/Units 20:00 21:54 23:58 WBC (3.8-10.6) k/uL Hgb (11.4-16.0) gm/dL MCHC (31.0-37.0) g/dL RDW (11.5-15.5) % Neutrophils # (1.3-7.7) k/uL Lymphocytes # (1.0-4.8) k/uL Potassium (3.5-5.1) mmol/L BUN (7-17) mg/dL Creatinine (0.52-1.04) mg/dL Glucose (74-99) mg/dL POC Glucose (mg/dL) 284 H 269 H 205 H (75-99) mg/dL 09/10/18 09/10/18 09/10/18 Range/Units 01:59 04:01 06:07 WBC 12.2 H (3.8-10.6) k/uL Hgb 11.1 L (11.4-16.0) gm/dL MCHC 30.2 L (31.0-37.0) g/dL RDW 15.8 H (11.5-15.5) % Neutrophils # 11.2 H (1.3-7.7) k/uL Lymphocytes # 0.5 L (1.0-4.8) k/uL Potassium (3.5-5.1) mmol/L BUN (7-17) mg/dL Creatinine (0.52-1.04) mg/dL Glucose (74-99) mg/dL POC Glucose (mg/dL) 164 H 155 H (75-99) mg/dL 09/10/18 09/10/18 09/10/18 Range/Units 06:07 06:18 08:00 WBC (3.8-10.6) k/uL Hgb (11.4-16.0) gm/dL MCHC (31.0-37.0) g/dL RDW (11.5-15.5) % Neutrophils # (1.3-7.7) k/uL Lymphocytes # (1.0-4.8) k/uL Potassium 5.4 H (3.5-5.1) mmol/L BUN 28 H (7-17) mg/dL Creatinine 0.48 L (0.52-1.04) mg/dL Glucose 129 H (74-99) mg/dL POC Glucose (mg/dL) 140 H 136 H (75-99) mg/dL 09/10/18 09/10/18 Range/Units 09:58 12:05 WBC (3.8-10.6) k/uL Hgb (11.4-16.0) gm/dL MCHC (31.0-37.0) g/dL RDW (11.5-15.5) % Neutrophils # (1.3-7.7) k/uL Lymphocytes # (1.0-4.8) k/uL Potassium (3.5-5.1) mmol/L BUN (7-17) mg/dL Creatinine (0.52-1.04) mg/dL Glucose (74-99) mg/dL POC Glucose (mg/dL) 166 H 137 H (75-99) mg/dL Microbiology - Last 24 Hours (Table) 09/06/18 17:29 Blood Culture - Preliminary Blood No Growth after 72 hours 09/06/18 23:12 Anaerobic Culture - Preliminary Leg - Left 09/06/18 23:12 Gram Stain - Final Leg - Left Wound Culture - Final Assessment and Plan Plan: 1 Acute exacerbation of chronic obstructive airways disease 2 chronic obstructive lung disease , and basilar recent pulmonary function test the patient has an FEV1 of 42% of predicted and a diffusion capacity of 45% of predicted consistent with seronegative airway disease 3 hypothyroidism 4 chronic cellulitis of the left lower extremity 5 osteoarthritis 6 type 2 diabetes mellitus without complications 7 smoker 8 depression 9 chronic back pain 10 nephrolithiasis 11 obesity with BMI of 39.9 12 Enterobacter faecium urinary tract infection Plan: We'll transition the IV steroids to oral prednisone, we added vancomycin yesterday for urine cultures positive for Enterococcus faecium. Patient is to be seen by infectious disease service. From pulmonary perspective she is clear for discharge when cleared by ID service. Follow-up with Dr. Silveira in the office in one week I performed a history & physical examination of the patient and discussed their management with my nurse practitioner, Taylor Sheriff. I reviewed the nurse practitioner's note and agree with the documented findings and plan of care. Lung sounds are positive for a few scattered rhonchi. The findings and the impression was discussed with the patient. I attest to the documentation by the nurse practitioner. Time with Patient: Less than 30
--- NOTE | 2018-09-10 13:55 | P.PN ---
Subjective Progress Note Date: 09/10/18 This is a 68-year-old female with known history of hypertension, diabetes, hyperlipidemia, nicotine dependence, anxiety and depression, hypothyroidism, asthma, cellulitis, COPD, recurrent UTIs who presented to the hospital on this occasion with symptoms of bilateral lower extremity edema and cellulitis with associated shortness of breath. According to the patient, she states for the past several weeks she's overall not been feeling well, she has had more shortness of breath than usual and is noticed bilateral swelling in her legs. A troponin was drawn in the emergency room which came back to be abnormal and for that reason a cardiology consultation was obtained. EKG performed on arrival here showed a normal sinus rhythm with no acute changes. Chest x-ray showed cardiomegaly with no heart failure. Venous duplex study of the left lower extremity was performed which came back negative for DVT. Blood pressure 152/70 with a heart rate in the 80s, 92% on 2 L of oxygen. White blood cell count on admission 12.6, 10.7 this morning, hemoglobin 10.9, platelet count 380. Sodium 136, potassium 5.3, BUN 29, creatinine 1.0. Magnesium level I.7, troponin on admission 0.060. Urinalysis positive for UTI, influenza A and B been negative. At the time of my examination this morning, patient is very sleepy, mildly short of breath. 09/09/2018 Patient was seen and examined this morning, overall she states she's feeling significantly better. She is definitely much more awake today. Her weight is down a half a kilogram today, continues to be on IV Lasix. An echocardiogram with Doppler study was performed which revealed an ejection fraction of 55-60%. Blood pressure at 8 AM this morning 184/94, at present 167/90. We will add a small dose of Norvasc to her medication regime. Follow-up chest x-ray today. Discontinue IV Lasix. 09/10/2018 Patient seen and examined this morning, feels well, eager to be discharged home today. Blood pressure 152/80 with a heart rate in the 50s, 97% on 2 L of oxygen. We will increase her dose of Norvasc to 10 mg daily. From our perspective she may be able to be discharged home today, we'll make her a follow -up appointment in the office post discharge. Objective - Vital Signs Vital signs: Vital Signs Temp 97.8 F 09/10/18 12:15 Pulse 58 L 09/10/18 12:15 Resp 17 09/10/18 12:15 BP 153/80 09/10/18 12:15 Pulse Ox 97 09/10/18 12:00 Intake & Output 09/09/18 09/10/18 09/10/18 18:59 06:59 18:59 Intake Total 960 113.417 240 Output Total 1400 3100 Balance -440 -2986.583 240 Weight 96.8 kg Intake: Intake, IV Titration 113.417 Amount Insulin Regular 100 unit 113.417 In Sodium Chloride 0.9% 100 ml @ Titrate IV .Q0M [facility] Rx#:[id number] Oral 960 240 Output: Urine 1400 3100 Other: Voiding Method Bedside Commode Bedside Commode Bedside Commode # Bowel Movements 1 - Exam PHYSICAL EXAMINATION: GENERAL: 68-year-old female in no acute distress at the time of my examination HEENT: Head is atraumatic, normocephalic. Pupils equal, round. Sclera anicteric. Conjunctiva are clear. Mucous membranes of the mouth are moist. Neck is supple. There is no elevated jugular venous pressure. No carotid bruit is heard. HEART EXAMINATION: Heart S1, S2 normal. No murmur or gallop heard. CHEST EXAMINATION: Lungs are clear with fine crackles to bilateral bases. ABDOMEN: Soft, nontender. Bowel sounds are heard. No organomegaly noted. EXTREMITIES: 2+ peripheral pulses with 1+ evidence of peripheral edema, left leg greater than right, dressing in place, bilateral ear erythema. Diuretics and subsequent troponins are negative. NEUROLOGIC patient is awake, alert and oriented 3 . - Labs CBC & Chem 7: 09/10/18 06:07 09/10/18 06:07 Labs: Abnormal Lab Results - Last 24 Hours (Table) 09/09/18 09/09/18 09/09/18 Range/Units 15:11 16:10 18:05 WBC (3.8-10.6) k/uL Hgb (11.4-16.0) gm/dL MCHC (31.0-37.0) g/dL RDW (11.5-15.5) % Neutrophils # (1.3-7.7) k/uL Lymphocytes # (1.0-4.8) k/uL Potassium (3.5-5.1) mmol/L BUN (7-17) mg/dL Creatinine (0.52-1.04) mg/dL Glucose (74-99) mg/dL POC Glucose (mg/dL) 215 H 195 H 227 H (75-99) mg/dL 09/09/18 09/09/18 09/09/18 Range/Units 20:00 21:54 23:58 WBC (3.8-10.6) k/uL Hgb (11.4-16.0) gm/dL MCHC (31.0-37.0) g/dL RDW (11.5-15.5) % Neutrophils # (1.3-7.7) k/uL Lymphocytes # (1.0-4.8) k/uL Potassium (3.5-5.1) mmol/L BUN (7-17) mg/dL Creatinine (0.52-1.04) mg/dL Glucose (74-99) mg/dL POC Glucose (mg/dL) 284 H 269 H 205 H (75-99) mg/dL 09/10/18 09/10/18 09/10/18 Range/Units 01:59 04:01 06:07 WBC 12.2 H (3.8-10.6) k/uL Hgb 11.1 L (11.4-16.0) gm/dL MCHC 30.2 L (31.0-37.0) g/dL RDW 15.8 H (11.5-15.5) % Neutrophils # 11.2 H (1.3-7.7) k/uL Lymphocytes # 0.5 L (1.0-4.8) k/uL Potassium (3.5-5.1) mmol/L BUN (7-17) mg/dL Creatinine (0.52-1.04) mg/dL Glucose (74-99) mg/dL POC Glucose (mg/dL) 164 H 155 H (75-99) mg/dL 09/10/18 09/10/18 09/10/18 Range/Units 06:07 06:18 08:00 WBC (3.8-10.6) k/uL Hgb (11.4-16.0) gm/dL MCHC (31.0-37.0) g/dL RDW (11.5-15.5) % Neutrophils # (1.3-7.7) k/uL Lymphocytes # (1.0-4.8) k/uL Potassium 5.4 H (3.5-5.1) mmol/L BUN 28 H (7-17) mg/dL Creatinine 0.48 L (0.52-1.04) mg/dL Glucose 129 H (74-99) mg/dL POC Glucose (mg/dL) 140 H 136 H (75-99) mg/dL 09/10/18 09/10/18 Range/Units 09:58 12:05 WBC (3.8-10.6) k/uL Hgb (11.4-16.0) gm/dL MCHC (31.0-37.0) g/dL RDW (11.5-15.5) % Neutrophils # (1.3-7.7) k/uL Lymphocytes # (1.0-4.8) k/uL Potassium (3.5-5.1) mmol/L BUN (7-17) mg/dL Creatinine (0.52-1.04) mg/dL Glucose (74-99) mg/dL POC Glucose (mg/dL) 166 H 137 H (75-99) mg/dL Microbiology - Last 24 Hours (Table) 09/06/18 17:29 Blood Culture - Preliminary Blood No Growth after 72 hours 09/06/18 23:12 Anaerobic Culture - Preliminary Leg - Left 09/06/18 23:12 Gram Stain - Final Leg - Left Wound Culture - Final Assessment and Plan Plan: Assessment and plan #1 COPD exacerbation with acute purulent tracheobronchitis #2 abnormal troponins, patient denies having any chest discomfort. EKG shows normal sinus rhythm with no acute changes. We will obtain 2 subsequent troponins and an echocardiogram with Doppler study. Her most recent echo was performed in January of last year which revealed an ejection fraction of 50-55%. #3 nicotine dependence #4 bilateral lower extremity cellulitis #5 UTI #6 diabetes #7 hypertension #8 hypothyroidism #9 obesity #10 depression #10 mild congestive heart failure, diastolic acute on Plan From cardiology's perspective, we will increase Norvasc for more optimal blood pressure control. She may be able to be discharged home today from cardiology' s perspective. We will make her a follow-up appointment in the office post discharge. DNP note has been reviewed, I agree with a documented findings and plan of care. Patient was seen and examined.
[2018-09-10 15:27] VITALS: RESP 16
[2018-09-10 15:39] VITALS: PULSE 67
--- NOTE | 2018-09-10 23:17 | P.CON ---
Consult Note - . Consult date: 09/10/18 Assessment/Plan:: This is a 68-year-old female well known to ID service as she was [facility] the [facility] ulcer on the left lower leg and last seen in August 2017 at that time was discharged from service due to wound healing. Patient presented to the hospital on September 06 with complaints of lower extremity edema and shortness of breath and occasional fever. Patient was admitted to the hospital and seen in consultation by cardiology for elevated troponins, acute coronary syndrome ruled out, mild acute diastolic heart failure and medications were adjusted and patient prepared for discharge. Patient was also seen by Dr. Pierre for acute exacerbation of COPD and he has cleared the patient for discharge. Patient has been afebrile, white count 12.2, creatinine 0.48. Urinalysis is clear, leukoesterase large, WBC 37. Influenza testing was negative. Patient denies having any burning or pain with urination. She was treated with Bactrim prior to her admission. Urine culture has returned back positive for Enterococcus faecium. Blood culture showing no growth at 72 hours and wound culture is showing normal skin mendoza. The patient has been treated for the lower extremity cellulitis with Silvadene wraps which she states has made improvement. Patient has been on Rocephin and vancomycin as well. Patient verbalizes that she is very anxious to be discharged home today and to be done as early as possible.Please see the consult note as dictated by nurse practitioner Maribell Thrasherzahira. Patient is evidence of the enterococcus urinary tract infection therefore susceptible to doxycycline. The patient's ALLERGIES are clarified with her. There is no evidence or known history of tetracycline or doxycycline ALLERGY. Consequently antibiotic is sent to her pharmacy to complete her course of therapy. She understands the importance of follow-up in the outpatient setting. She does contact the office if she has any difficulties with antibiotic therapy. She was discharged home.
[2018-09-11] MEDS ORDERED: amLODIPine 10 MG TAB PO SCH (09:00)
[2018-09-11] MEDS ORDERED: predniSONE 10 MG TAB PO SCH (09:00)
[2018-09-13] MEDS ORDERED: ERGOCALCIFEROL 50,000 UNIT CAP PO SCH (09:00)
== END 2018-09-10 16:47 | disposition home health service (06) | DRG 190 ==
LOC: EC 16:19 → 3SCARD 18:02
PROVIDERS: ADMIT Hospitalist; ATTEND Hospitalist
DX: J44.0 Chronic obstructive pulmonary disease with (acute) lower respiratory infection (principal); I50.31 Acute diastolic (congestive) heart failure; Z68.41 Body mass index [BMI] 40.0-44.9, adult; L03.116 Cellulitis of left lower limb; L97.922 Non-pressure chronic ulcer of unspecified part of left lower leg with fat layer exposed; N17.9 Acute kidney failure, unspecified; E87.1 Hypo-osmolality and hyponatremia; L03.115 Cellulitis of right lower limb; N39.0 Urinary tract infection, site not specified; J20.9 Acute bronchitis, unspecified; J44.1 Chronic obstructive pulmonary disease with (acute) exacerbation; E11.51 Type 2 diabetes mellitus with diabetic peripheral angiopathy without gangrene; I11.0 Hypertensive heart disease with heart failure; E11.622 Type 2 diabetes mellitus with other skin ulcer; E66.01 Morbid (severe) obesity due to excess calories; B95.2 Enterococcus as the cause of diseases classified elsewhere; N20.0 Calculus of kidney; E78.5 Hyperlipidemia, unspecified; F32.9 Major depressive disorder, single episode, unspecified; F41.9 Anxiety disorder, unspecified; E03.9 Hypothyroidism, unspecified; G89.29 Other chronic pain; M51.36 Other intervertebral disc degeneration, lumbar region; H40.9 Unspecified glaucoma; L98.9 Disorder of the skin and subcutaneous tissue, unspecified; M19.90 Unspecified osteoarthritis, unspecified site; I83.90 Asymptomatic varicose veins of unspecified lower extremity; Z71.6 Tobacco abuse counseling; F17.210 Nicotine dependence, cigarettes, uncomplicated; Z79.82 Long term (current) use of aspirin; Z79.890 Hormone replacement therapy; Z79.84 Long term (current) use of oral hypoglycemic drugs; Z79.899 Other long term (current) drug therapy; Z85.828 Personal history of other malignant neoplasm of skin; Z87.442 Personal history of urinary calculi; Z91.81 History of falling; Z87.440 Personal history of urinary (tract) infections; Z90.49 Acquired absence of other specified parts of digestive tract; Z98.51 Tubal ligation status; Z71.3 Dietary counseling and surveillance; Z88.1 Allergy status to other antibiotic agents; Z91.040 Latex allergy status; Z88.5 Allergy status to narcotic agent; Z88.0 Allergy status to penicillin; Z91.048 Other nonmedicinal substance allergy status; Z82.5 Family history of asthma and other chronic lower respiratory diseases; Z82.49 Family history of ischemic heart disease and other diseases of the circulatory system; Z80.8 Family history of malignant neoplasm of other organs or systems
CPT/HCPCS: 36415; 71046; 80048; 80053; 81001; 82550; 82553; 83036; 83605; 83735; 84100; 84484; 85025; 85610; 85730; 87040; 87070; 87075; 87077; 87086; 87186; 87205; 87502; 93005; 93306; 94640; 94760; 96365; 96366; 96375; 99285

== ENCOUNTER 2018-09-21 17:24 | Inpatient (IN) | payer MEDICARE, OTHER ==
--- NOTE | 2018-09-21 19:15 | ED ---
Recheck HPI - General Chief Complaint: Recheck/Abnormal Lab/Rx Stated Complaint: LEG SWELLING AND REDNESS Hx OF CELLULITIS Time Seen by Provider: 09/21/18 18:13 Source: patient, RN notes reviewed Mode of arrival: ambulatory Limitations: no limitations - History of Present Illness Initial Comments: 68-year-old female presents emergency Department with chief complaint of leg swelling, redness. Patient states she was recently admitted for cellulitis. Patient states that she's been home that her Wounds are healing but states that they noticed increased swelling and redness her left eye. She does report associated pain. Patient also has mild shortness of breath and is currently on Lasix for CHF. Patient denies chest pain, headache, dizziness, no fever. Patient states she does have wound care nurse that comes and rash her legs and states that she should be seen secondary to increased redness. - Related Data Home Medications Medication Instructions Recorded Confirmed Aspirin 81 mg PO DAILY 02/06/14 09/21/18 HYDROcodone/APAP 7.5-325MG [[place] 1 tab PO Q6H PRN 02/06/14 09/21/18 7.5-325] Zafirlukast [Accolate] 20 mg PO BID 02/06/14 09/21/18 Ergocalciferol [Vitamin D2 50,000 unit PO Q7D 12/10/14 09/21/18 (DRISDOL)] Levothyroxine Sodium [Synthroid] 175 mcg PO DAILY 12/10/14 09/21/18 ARIPiprazole [Abilify] 5 mg PO HS 02/07/18 09/21/18 Fluticasone Nasal [place] [Flonase 1 - 2 spray EA NOSTRIL DAILY 02/07/18 09/21/18 Nasal [place]] Glimepiride [Amaryl] 2 mg PO AC-BRKFST 02/07/18 09/21/18 metFORMIN HCL [Glucophage] 500 mg PO BID 02/07/18 09/21/18 traZODone HCL 100 mg PO HS PRN 02/07/18 09/21/18 Escitalopram [Lexapro] 10 mg PO HS 09/08/18 09/21/18 Lisinopril [Zestril] 10 mg PO HS 09/09/18 09/21/18 Previous Rx's Medication Instructions Recorded Albuterol Inhaler [Ventolin Hfa 2 puff INHALATION RT-Q4H PRN #0 09/07/15 Inhaler] Ipratropium-Albuterol Nebulize 3 ml INHALATION RT-QID #120 02/09/18 [Duoneb 0.5 mg-3 mg/3 ml Soln] ampul.neb Atorvastatin [Lipitor] 40 mg PO DAILY #30 tab 09/10/18 Metoprolol Tartrate [Lopressor] 25 mg PO TID #90 tab 09/10/18 amLODIPine [Norvasc] 10 mg PO DAILY #30 tab 09/10/18 Allergies Allergy/AdvReac Type Severity Reaction Status Date / Time adhesive Allergy Rash/Hives Verified 09/21/18 19:12 ciprofloxacin [From Cipro] Allergy Rash/Hives Verified 09/21/18 19:12 ciprofloxacin HCl Allergy Rash/Hives Verified 09/21/18 19:12 [From Cipro] latex Allergy Rash/Hives Verified 09/21/18 19:12 nitrofurantoin Allergy Rash/Hives Verified 09/21/18 19:12 [From Macrobid] nitrofurantoin Allergy Rash/Hives Verified 09/21/18 19:12 macrocrystalline [From Macrobid] Penicillins Allergy Rash/Hives Verified 09/21/18 19:12 propoxyphene HCl Allergy Rash/Hives Verified 09/21/18 19:12 [From Darvon] propoxyphene napsylate Allergy Unknown Verified 09/21/18 19:12 [From Darvocet-N] Review of Systems ROS Statement: Those systems with pertinent positive or pertinent negative responses have been documented in the HPI. ROS Other: All systems not noted in ROS Statement are negative. Past Medical History Past Medical History: Asthma, Chest Pain / Angina, COPD, Diabetes Mellitus, Hypertension, Osteoarthritis (OA), Respiratory Disorder, Skin Disorder, Thyroid Disorder Additional Past Medical History / Comment(s): Obesity (BMI 35) COPD, asthma, diabetes , depression, 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 The patient is also a smoker. The patient has chronic back pain. History of Any Multi-Drug Resistant Organisms: None Reported Past Surgical History: Appendectomy, Section, Cholecystectomy, Orthopedic Surgery, Tubal Ligation Additional Past Surgical History / Comment(s): LASER SX JETHRO EYES FOR GLAUCOMA. RT KNEE ARTHROSCOPY. UNDERWENT PERCUTANEOUS NEPHROSTOLITHOTOMY Past Anesthesia/Blood Transfusion Reactions: No Reported Reaction Past Psychological History: Anxiety, Depression Smoking Status: Current every day smoker Past Alcohol Use History: None Reported Past Drug Use History: None Reported - Past Family History Mother Additional Family Medical History / Comment(s): emphysema, heart valve problems , in her slepp. Brother(s) Family Medical History: Cancer Additional Family Medical History / Comment(s): from oral cancer Father Brother(s) Family Medical History: Cancer Additional Family Medical History / Comment(s): heart disease General Exam Limitations: no limitations General appearance: alert, in no apparent distress Head exam: Present: atraumatic, normocephalic, normal inspection Neck exam: Present: normal inspection. Absent: tenderness, meningismus, lymphadenopathy Respiratory exam: Present: rales. Absent: respiratory distress, wheezes, rhonchi, stridor Cardiovascular Exam: Present: regular rate, normal rhythm, normal heart sounds. Absent: systolic murmur, diastolic murmur, rubs, gallop, clicks GI/Abdominal exam: Present: soft, normal bowel sounds. Absent: distended, tenderness, guarding, rebound, rigid Extremities exam: Present: other (Bilateral lower extremity edema noted, greater on the left versus the right, erythema noted to the left thigh, mild erythema noted to the right leg pedal pulses equal bilaterally) Skin exam: Present: warm, dry, intact Course Vital Signs 09/21/18 09/21/18 09/21/18 17:27 19:30 21:00 Temperature 99.1 F 98.6 F Pulse Rate 80 84 77 Respiratory 18 22 24 Rate Blood Pressure 135/75 138/68 126/55 O2 Sat by Pulse 90 L 94 L 95 Oximetry Medical Decision Making - Medical Decision Making 68-year-old female female presented for leg swelling. Patient does have evidence of cellulitis, increased leukocytosis. Patient is negative for acute DVT chest x-ray consistent with CHF BMP not elevated. This may be more consistent with right-sided heart failure. Patient we given Lasix, vancomycin. - Lab Data Result diagrams: 09/21/18 19:35 09/21/18 19:35 Lab Results 09/21/18 09/21/18 09/21/18 Range/Units 19:35 19:35 19:35 WBC 15.5 H (3.8-10.6) k/uL RBC 4.25 (3.80-5.40) m/uL Hgb 11.5 (11.4-16.0) gm/dL Hct 36.2 (34.0-46.0) % MCV 85.1 (80.0-100.0) fL MCH 27.0 (25.0-35.0) pg MCHC 31.7 (31.0-37.0) g/dL RDW 16.6 H (11.5-15.5) % Plt Count 350 (150-450) k/uL Neutrophils % 80 % Lymphocytes % 11 % Monocytes % 6 % Eosinophils % 2 % Basophils % 0 % Neutrophils # 12.4 H (1.3-7.7) k/uL Lymphocytes # 1.7 (1.0-4.8) k/uL Monocytes # 0.9 (0-1.0) k/uL Eosinophils # 0.3 (0-0.7) k/uL Basophils # 0.0 (0-0.2) k/uL Hypochromasia Slight Anisocytosis Slight Sodium 136 L (137-145) mmol/L Potassium 4.3 (3.5-5.1) mmol/L Chloride 103 (98-107) mmol/L Carbon Dioxide 26 (22-30) mmol/L Anion Gap 7 mmol/L BUN 22 H (7-17) mg/dL Creatinine 0.62 (0.52-1.04) mg/dL Est GFR (CKD-EPI)AfAm >90 (>60 ml/min/1.73 sqM) Est GFR (CKD-EPI)NonAf >90 (>60 ml/min/1.73 sqM) Glucose 126 H (74-99) mg/dL Plasma Lactic Acid Ravi 1.1 (0.7-2.0) mmol/L Calcium 8.7 (8.4-10.2) mg/dL Total Bilirubin 0.4 (0.2-1.3) mg/dL AST 21 (14-36) U/L ALT 40 (9-52) U/L Alkaline Phosphatase 63 (38-126) U/L NT-Pro-B Natriuret Pep pg/mL Total Protein 5.6 L (6.3-8.2) g/dL Albumin 3.1 L (3.5-5.0) g/dL 09/21/18 Range/Units 19:35 WBC (3.8-10.6) k/uL RBC (3.80-5.40) m/uL Hgb (11.4-16.0) gm/dL Hct (34.0-46.0) % MCV (80.0-100.0) fL MCH (25.0-35.0) pg MCHC (31.0-37.0) g/dL RDW (11.5-15.5) % Plt Count (150-450) k/uL Neutrophils % % Lymphocytes % % Monocytes % % Eosinophils % % Basophils % % Neutrophils # (1.3-7.7) k/uL Lymphocytes # (1.0-4.8) k/uL Monocytes # (0-1.0) k/uL Eosinophils # (0-0.7) k/uL Basophils # (0-0.2) k/uL Hypochromasia Anisocytosis Sodium (137-145) mmol/L Potassium (3.5-5.1) mmol/L Chloride (98-107) mmol/L Carbon Dioxide (22-30) mmol/L Anion Gap mmol/L BUN (7-17) mg/dL Creatinine (0.52-1.04) mg/dL Est GFR (CKD-EPI)AfAm (>60 ml/min/1.73 sqM) Est GFR (CKD-EPI)NonAf (>60 ml/min/1.73 sqM) Glucose (74-99) mg/dL Plasma Lactic Acid Ravi (0.7-2.0) mmol/L Calcium (8.4-10.2) mg/dL Total Bilirubin (0.2-1.3) mg/dL AST (14-36) U/L ALT (9-52) U/L Alkaline Phosphatase (38-126) U/L NT-Pro-B Natriuret Pep 374 pg/mL Total Protein (6.3-8.2) g/dL Albumin (3.5-5.0) g/dL Disposition Clinical Impression: Leg edema, CHF (congestive heart failure), Cellulitis Disposition: ADMITTED IP TO THIS HOSP Condition: Fair Referrals: Ken Woodruff MD [Primary Care Provider] - 1-2 days
[2018-09-21 20:05] LABS: Anisocytosis Slight; Basophils % (A) 0 %; Eosinophils # (A) 0.3 k/uL (0-0.7); Eosinophils % (A) 2 %; HCT 36.2 % (34.0-46.0); HGB 11.5 gm/dL (11.4-16.0); Hypochromasia Slight; Lymphocytes # (A) 1.7 k/uL (1.0-4.8); Lymphocytes % (A) 11 %; MCHC 31.7 g/dL (31.0-37.0); MCV 85.1 fL (80.0-100.0); Mean Platelet Volume 6.2; Monocytes # (A) 0.9 k/uL (0-1.0); Monocytes % (A) 6 %; Neutrophils # (A) 12.4 k/uL (1.3-7.7); Neutrophils % (A) 80 %; Platelet Count 350 k/uL (150-450); RBC 4.25 m/uL (3.80-5.40); RDW 16.6 % (11.5-15.5); WBC 15.5 k/uL (3.8-10.6)
[2018-09-21 20:12] LABS: ALT 40 U/L (9-52); AST 21 U/L (14-36); Albumin 3.1 g/dL (3.5-5.0); Alkaline Phosphatase 63 U/L (38-126); Anion Gap 7 mmol/L; Blood Urea Nitrogen 22 mg/dL (7-17); Calcium 8.7 mg/dL (8.4-10.2); Carbon Dioxide 26 mmol/L (22-30); Chloride 103 mmol/L (98-107); Glucose 126 mg/dL (74-99); Potassium 4.3 mmol/L (3.5-5.1); Sodium 136 mmol/L (137-145); Total Bilirubin 0.4 mg/dL (0.2-1.3); Total Protein 5.6 g/dL (6.3-8.2)
--- NOTE | 2018-09-21 20:26 | US ---
EXAMINATION TYPE: US venous doppler duplex LE LT DATE OF EXAM: 09/21/2018 7:52 PM COMPARISON: US 09/06/2018 CLINICAL HISTORY: Pain. Left leg swelling, diagnosed with cellulitis about 2 weeks ago in left leg. SIDE PERFORMED: Left TECHNIQUE: The lower extremity deep venous system is examined utilizing real time linear array sonog chacorta with graded compression, doppler sonography and color-flow sonography. VESSELS IMAGED: External Iliac Vein (EIV) Common Femoral Vein Deep Femoral Vein Greater Saphenous Vein * Femoral Vein Popliteal Vein Small Saphenous Vein * Proximal Calf Veins (* superficial vessels) Left Leg: Negative for DVT Grayscale, color doppler, spectral doppler imaging performed of the deep veins of the left lower extr emity. There is normal flow, compressibility, vascular waveforms. IMPRESSION: No evidence for acute DVT in the left lower extremity. No significant change from recen t ultrasound performed less than 3 weeks earlier.
--- NOTE | 2018-09-21 20:34 | XR ---
EXAMINATION TYPE: XR chest 2V DATE OF EXAM: 09/21/2018 COMPARISON: Chest x-ray September 09, 2018 HISTORY: Cough and pain. TECHNIQUE: Frontal and lateral views of the chest are obtained. FINDINGS: The cardiac silhouette size is enlarged with atherosclerotic thoracic aorta. Mild central vascular congestion is felt present on background chronic parenchymal change. And no new suspicious focal airspace opacity, pleural effusion, or pneumothorax is identified bilaterally. The osseous stru ctures are intact. IMPRESSION: Correlate for CHF exacerbation as there is cardiomegaly with suspected mild central vasc ular congestion on background chronic parenchymal change.
[2018-09-21] MEDS ORDERED: FUROSEMIDE 10 MG/ML 4 ML VIAL IV STA (21:18)
[2018-09-21] MEDS ORDERED: VANCOMYCIN IV PER PHARMACY 1 EACH MISC MISCELLANE PRN (21:19)
[2018-09-21] MEDS ORDERED: NALOXONE 0.4 MG/ML 1 ML VIAL IV PRN (21:19)
[2018-09-21] MEDS ORDERED: ACETAMINOPHEN TAB 325 MG TAB PO PRN (21:19)
[2018-09-21] MEDS ORDERED: ONDANSETRON 4 MG/2 ML VIAL IVP PRN (21:19)
[2018-09-21] MEDS ORDERED: HYDROcodone/APAP 5-325MG 1 EACH TAB PO PRN (21:19)
[2018-09-21] MEDS ORDERED: ALBUTEROL NEBULIZED 2.5 MG/3 ML INHALATION PRN (21:20)
[2018-09-21] MEDS ORDERED: traZODone HCL 100 MG TAB PO PRN (21:20)
[2018-09-21] MEDS ORDERED: HYDROcodone/APAP 7.5-325MG 1 EACH TAB PO PRN (21:20)
[2018-09-21] MEDS ORDERED: VANCOMYCIN 1,750 MG in SODIUM CHLORIDE 0.9% 500 ML 500 ML IVPB STA (21:25)
[2018-09-21] MEDS ORDERED: VANCOMYCIN 1,500 MG in SODIUM CHLORIDE 0.9% 250 ML IVPB STA (21:26)
[2018-09-21] MEDS: METOPROLOL TARTRATE 25 MG TAB PO SCH (23:36)
[2018-09-22] MEDS: FUROSEMIDE 10 MG/ML 4 ML VIAL IV SCH ×2 (05:24→17:57)
[2018-09-22] MEDS: LEVOTHYROXINE 75 MCG TAB PO SCH (05:25)
[2018-09-22] MEDS: LEVOTHYROXINE 100 MCG TAB PO SCH (05:25)
[2018-09-22] MEDS: IPRATROPIUM-ALBUTEROL 3 ML NEB INHALATION SCH ×4 (07:17→19:40)
[2018-09-22 08:10] LABS: Glucose,Whole Blood 206 mg/dL (75-99)
[2018-09-22] MEDS ORDERED: amLODIPine 10 MG TAB PO SCH (09:00)
[2018-09-22] MEDS ORDERED: VANCOMYCIN 1,500 MG in SODIUM CHLORIDE 0.9% 250 ML IVPB SCH (09:00)
[2018-09-22] MEDS: ASPIRIN 81 MG PO SCH (10:16)
[2018-09-22] MEDS: GLIMEPIRIDE 2 MG TAB PO SCH (10:16)
[2018-09-22] MEDS: metFORMIN 500 MG TAB PO SCH ×2 (10:16→17:57)
[2018-09-22] MEDS: ATORVASTATIN 40 MG TAB PO SCH (10:16)
[2018-09-22] MEDS: HEPARIN SODIUM,PORCINE 5,000 UNIT/ML 1 ML VIAL SQ SCH ×2 (10:17→22:07)
[2018-09-22] MEDS: FAMOTIDINE 20 MG/2 ML VIAL IV SCH ×2 (10:17→22:30)
[2018-09-22] MEDS: METOPROLOL TARTRATE 25 MG TAB PO SCH ×3 (10:18→22:07)
[2018-09-22 11:21] LABS: Glucose,Whole Blood 205 mg/dL (75-99)
--- NOTE | 2018-09-22 11:33 | P.HPIM ---
History of Present Illness -year-old female came in with just department with swelling of the left leg and redness. Patient to couple weeks ago had similar symptoms was treated facilities of the left leg, comes back again with worsening edema of both legs much worse on the left side with redness local is of temperature denied any fever chills. Patient does have history of COPD doesn't have any history of congestive heart failure complained denied any complaints of shortness of breath although patient is wheezing on exam. Patient doesn't want to be on prednisone because of its side effects will use inhaled steroids inhalational treatments with watch her. Patient is on IV Lasix which I'll continue which will help with her pedal edema.she does have leukocytosis. Review of Systems REVIEW OF SYSTEMS: CONSTITUTIONAL: No fever, no malaise, no fatigue. HEENT: No recent visual problems or hearing problems. Denied any sore throat. CARDIOVASCULAR: No chest pain, orthopnea, PND, no palpitations, no syncope. PULMONARY: No shortness of breath, no cough, no hemoptysis. GASTROINTESTINAL: No diarrhea, no nausea, no vomiting, no abdominal pain. NEUROLOGICAL: No headaches, no weakness, no numbness. HEMATOLOGICAL: Denies any bleeding or petechiae. GENITOURINARY: Denies any burning micturition, frequency, or urgency. MUSCULOSKELETAL/RHEUMATOLOGICAL: Denies any joint pain, swelling, or any muscle pain. ENDOCRINE: Denies any polyuria or polydipsia. The rest of the 14-point review of systems is negative. Past Medical History Past Medical History: Asthma, Chest Pain / Angina, COPD, Diabetes Mellitus, Hypertension, Osteoarthritis (OA), Respiratory Disorder, Skin Disorder, Thyroid Disorder Additional Past Medical History / Comment(s): Obesity (BMI 35) COPD, asthma, diabetes , depression, 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 The patient is also a smoker. The patient has chronic back pain. History of Any Multi-Drug Resistant Organisms: None Reported Past Surgical History: Appendectomy, Section, Cholecystectomy, Orthopedic Surgery, Tubal Ligation Additional Past Surgical History / Comment(s): LASER SX JETHRO EYES FOR GLAUCOMA. RT KNEE ARTHROSCOPY. UNDERWENT PERCUTANEOUS NEPHROSTOLITHOTOMY Past Anesthesia/Blood Transfusion Reactions: No Reported Reaction Past Psychological History: Anxiety, Depression Additional Psychological History / Comment(s): pt stated maintained by meds. and lives with the . 2 adult children. 2 dogs and 6 cats in the home, they rescue. Ongoing tobacco use but denied alcohol use or recreational drug use. Does not work outside of the home. No experience. No travel history Smoking Status: Current every day smoker Past Alcohol Use History: None Reported Additional Past Alcohol Use History / Comment(s): Patient is an active smoker one pack per day and started smoking in 1968. She denies any marijuana, illicit drug use or alcohol use. She is and lives at home with her . There are 2 dogs and 2 cats in the home. No service and no travel history. Past Drug Use History: None Reported - Past Family History Mother Additional Family Medical History / Comment(s): emphysema, heart valve problems , in her slepp. Brother(s) Family Medical History: Cancer Additional Family Medical History / Comment(s): from oral cancer Father Brother(s) Family Medical History: Cancer Additional Family Medical History / Comment(s): heart disease Medications and Allergies Home Medications Medication Instructions Recorded Confirmed Type Aspirin 81 mg PO DAILY 02/06/14 09/21/18 History HYDROcodone/APAP 7.5-325MG [[place] 1 tab PO Q6H PRN 02/06/14 09/21/18 History 7.5-325] Zafirlukast [Accolate] 20 mg PO BID 02/06/14 09/21/18 History Ergocalciferol [Vitamin D2 50,000 unit PO Q7D 12/10/14 09/21/18 History (DRISDOL)] Levothyroxine Sodium [Synthroid] 175 mcg PO DAILY 12/10/14 09/21/18 History Albuterol Inhaler [Ventolin Hfa 2 puff INHALATION RT-Q4H PRN #0 09/07/15 Rx Inhaler] ARIPiprazole [Abilify] 5 mg PO HS 02/07/18 09/21/18 History Fluticasone Nasal [place] [Flonase 1 - 2 spray EA NOSTRIL DAILY 02/07/18 09/21/18 History Nasal [place]] Glimepiride [Amaryl] 2 mg PO AC-BRKFST 02/07/18 09/21/18 History metFORMIN HCL [Glucophage] 500 mg PO BID 02/07/18 09/21/18 History traZODone HCL 100 mg PO HS PRN 02/07/18 09/21/18 History Ipratropium-Albuterol Nebulize 3 ml INHALATION RT-QID #120 02/09/18 09/21/18 Rx [Duoneb 0.5 mg-3 mg/3 ml Soln] ampul.neb Escitalopram [Lexapro] 10 mg PO HS 09/08/18 09/21/18 History Lisinopril [Zestril] 10 mg PO HS 09/09/18 09/21/18 History Atorvastatin [Lipitor] 40 mg PO DAILY #30 tab 09/10/18 09/21/18 Rx Metoprolol Tartrate [Lopressor] 25 mg PO TID #90 tab 09/10/18 09/21/18 Rx amLODIPine [Norvasc] 10 mg PO DAILY #30 tab 09/10/18 09/21/18 Rx Allergies Allergy/AdvReac Type Severity Reaction Status Date / Time adhesive Allergy Rash/Hives Verified 09/21/18 19:12 ciprofloxacin [From Cipro] Allergy Rash/Hives Verified 09/21/18 19:12 ciprofloxacin HCl Allergy Rash/Hives Verified 09/21/18 19:12 [From Cipro] latex Allergy Rash/Hives Verified 09/21/18 19:12 nitrofurantoin Allergy Rash/Hives Verified 09/21/18 19:12 [From Macrobid] nitrofurantoin Allergy Rash/Hives Verified 09/21/18 19:12 macrocrystalline [From Macrobid] Penicillins Allergy Rash/Hives Verified 09/21/18 19:12 propoxyphene HCl Allergy Rash/Hives Verified 09/21/18 19:12 [From Darvon] propoxyphene napsylate Allergy Unknown Verified 09/21/18 19:12 [From Darvocet-N] Physical Exam Vitals: Vital Signs Temp Pulse Pulse Pulse Resp BP BP 09/22/18 11:17 84 09/22/18 08:00 98.3 F 78 17 106/66 09/22/18 07:27 86 09/22/18 07:17 84 09/22/18 00:57 89 09/22/18 00:48 89 09/22/18 00:07 98.0 F 74 90 20 132/70 09/21/18 22:39 99.0 F 09/21/18 21:57 99.0 F 74 22 128/60 09/21/18 21:00 98.6 F 77 24 126/55 09/21/18 19:30 84 22 138/68 09/21/18 17:27 99.1 F 80 18 135/75 Pulse Ox 09/22/18 11:17 09/22/18 08:00 93 L 09/22/18 07:27 09/22/18 07:17 09/22/18 00:57 09/22/18 00:48 09/22/18 00:07 09/21/18 22:39 09/21/18 21:57 95 09/21/18 21:00 95 09/21/18 19:30 94 L 09/21/18 17:27 90 L Intake and Output 09/21/18 09/22/18 09/22/18 22:59 06:59 14:59 Intake Total 280 Output Total 350 Balance -350 280 Intake: Oral 280 Output: Urine 350 Other: Weight 96.615 kg PHYSICAL EXAMINATION: GENERAL: The patient is alert and oriented x3, not in any acute distress. Well developed, well nourished. HEENT: Pupils are round and equally reacting to light. EOMI. No scleral icterus. No conjunctival pallor. Normocephalic, atraumatic. No pharyngeal erythema. No thyromegaly. CARDIOVASCULAR: S1 and S2 present. No murmurs, rubs, or gallops. PULMONARY: Chest is clear to auscultation, no wheezing or crackles. ABDOMEN: Soft, nontender, nondistended, normoactive bowel sounds. No palpable organomegaly. MUSCULOSKELETAL: No joint swelling or deformity. EXTREMITIES: No cyanosis, clubbing, she does have bilateral pedal edema most significant on the left side extending up to mid-level thigh patient does have redness extending up the midthigh area with local is of temperature does have cellulitis. NEUROLOGICAL: Gross neurological examination did not reveal any focal deficits. SKIN: it is as mentioned above Results CBC & Chem 7: 09/21/18 19:35 09/21/18 19:35 Labs: Abnormal Lab Results - Last 24 Hours (Table) 09/21/18 09/21/18 09/22/18 Range/Units 19:35 19:35 07:58 WBC 15.5 H (3.8-10.6) k/uL RDW 16.6 H (11.5-15.5) % Neutrophils # 12.4 H (1.3-7.7) k/uL Sodium 136 L (137-145) mmol/L BUN 22 H (7-17) mg/dL Glucose 126 H (74-99) mg/dL POC Glucose (mg/dL) 206 H (75-99) mg/dL Total Protein 5.6 L (6.3-8.2) g/dL Albumin 3.1 L (3.5-5.0) g/dL 09/22/18 Range/Units 11:04 WBC (3.8-10.6) k/uL RDW (11.5-15.5) % Neutrophils # (1.3-7.7) k/uL Sodium (137-145) mmol/L BUN (7-17) mg/dL Glucose (74-99) mg/dL POC Glucose (mg/dL) 205 H (75-99) mg/dL Total Protein (6.3-8.2) g/dL Albumin (3.5-5.0) g/dL Thrombosis Risk Factor Assmnt - Choose All That Apply Any of the Below Risk Factors Present?: No Other Risk Factors: Yes Each Risk Factor Represents 2 Points: Age 61-74 years Other congenital or acquired thrombophilia - If yes, enter type in comment: No Thrombosis Risk Factor Assessment Total Risk Factor Score: 2 Thrombosis Risk Factor Assessment Level: Low Risk Assessment and Plan Plan: -cellulitis of the left leg DVT was ruled out and the patient on vancomycin which will be continued because of the recurrent cellulitis which is probably frustrated by lymphedema, I'm consulted infectious disease.cultures were obtained -Hypertension: Patient blood pressure is low normal and because of the facilities of both legs in the recurrent Edema of the both legs I do not believe amlodipine is necessary and this will be discontinued if needed we can increase the dose of JERONIMO inhibitor. -COPD with acute exacerbation because of the side effects of systemic steroids patient is declining to use them will use inhaled steroids will monitor her with inhalational treatments and if she doesn't get better will start her on low -dose of prednisone.she does not admit to have congestive heart failure CHF exacerbation -Type 2 diabetes mellitus continue with her home regimen monitor blood sugars -Obesity -hypertension management as mentioned above -Hypothyroidism Patient will need Neurologic J prophylaxis because of systemic strides
[2018-09-22 17:15] LABS: Glucose,Whole Blood 111 mg/dL (75-99)
[2018-09-22] MEDS: SYMBICORT 160-4.5 MCG INHALER INHALATION SCH (19:41)
[2018-09-22 19:49] LABS: Glucose,Whole Blood 201 mg/dL (75-99)
[2018-09-22] MEDS ORDERED: MONTELUKAST 10 MG TAB PO SCH (21:00)
[2018-09-22] MEDS ORDERED: LISINOPRIL 10 MG TAB PO SCH (21:00)
[2018-09-22] MEDS ORDERED: ARIPiprazole 5 MG TAB PO SCH (21:00)
[2018-09-22] MEDS ORDERED: ESCITALOPRAM 10 MG TAB PO SCH (21:00)
[2018-09-22] MEDS: ceFAZolin IN SWFI 2 GM/20 ML SYRINGE IVP SCH (22:30)
--- NOTE | 2018-09-23 01:08 | CONS ---
CONSULTATION DATE OF SERVICE: 09/22/2018. REASON FOR CONSULTATION: Left lower extremity cellulitis. HISTORY OF PRESENT ILLNESS: The patient is a 68-year-old female with past medical history significant for recurrent cellulitis of the lower extremity. She was recently admitted to this facility. The patient was admitted for cellulitis and was discharged home with oral doxycycline. After completing antibiotic therapy, patient noticed to be having more swelling and redness to the left leg area. The patient did have significant swelling in both the left leg. The patient did have swelling as well as redness and has been complaining of some dull aching pain to the leg, intensity about 5-10 and no radiation. Currently with no blisters or any open wound. With these symptoms, the patient was evaluated by the ER physician. On arrival to the ER, the patient did have a lower extremity Doppler that was negative for DVT. The patient did have a low-grade fever of 99. Her white count was elevated at 15.5, creatinine 0.62. Blood culture obtained, currently pending. The patient started on vancomycin pharmacy to dose. Infectious Disease was consulted for further recommendation regarding antibiotic therapy. REVIEW OF SYSTEMS: Positive points have been mentioned in HPI. Rest of systems have been negative. PAST MEDICAL HISTORY: Asthma, angina, COPD, diabetes mellitus, hypertension, osteoarthritis, hypothyroidism, obesity, recurrent lower extremity cellulitis. PAST SURGICAL HISTORY: Appendectomy, , cholecystectomy, tubal ligation, laser surgery in both eyes, right knee arthroscopy and percutaneous nephrolithotomy. SOCIAL HISTORY: Current everyday smoker. Denies drinking or drug use. FAMILY HISTORY: Mother with history of emphysema. Brother from colon cancer. Father history of heart disease. ALLERGIES: MULTIPLE MEDICATIONS, INCLUDING PENICILLIN, NITROFURANTOIN, CIPROFLOXACIN. The patient mentioned she may have taken Keflex without any problem. MEDICATION: Medications include the patient is currently on Tylenol, [place], Ventolin, DuoNeb, Abilify, aspirin, Lipitor, Symbicort, Lexapro, Pepcid, Lasix, Amaryl, heparin, Synthroid, Zestril, Glucophage, Lopressor, Singulair, Narcan, Zofran, Tessalon. PHYSICAL EXAMINATION: Blood pressure is 123/69 with a pulse of 59, temperature 98.1. She is 90% on room air. General description is an elderly female up in the bed in no distress. No tachypnea or accessory muscle of respiration use. HEENT: Shows no pallor or scleral icterus. Oral mucosal membranes are dry. No pharyngeal or thrush. Neck: Trachea central. No thyromegaly. Lungs unlabored breathing. Bilateral coarse breath sounds. Occasional wheeze. Heart S1, S2. Regular rate and rhythm. ABDOMEN: Soft. No tenderness. Left leg with swelling, minimal redness which is diffuse. Minimal foot ulceration. No slough tissue or any foul-smelling drainage. Neurological: Patient is awake, alert, oriented times three. Mood and affect normal. LABS: Hemoglobin is 11.5, white count 15.3, BUN of 22, creatinine 0.62. Blood culture has been negative so far. DIAGNOSTIC IMPRESSION AND PLAN: 1. Patient with acute left lower extremity cellulitis in this patient who does have evidence of fluid overload with diffuse swelling and redness likely representing a streptococcal cellulitis. Clinically doubt bullous infection. 2. Patient who does have multiple antibiotic allergies that will limit the number of antibiotics that could be safely used. PLAN: 1. Discontinue the vancomycin. 2. Will start the patient on cefazolin 2 g q.8 hours. 3. J[place]son wrap to the left foot to just above and slightly below the knee. 4. We will follow up on clinical condition and culture to further adjust medication if needed. Thank you for this consultation. Will follow the patient along with you. MMODL / IJN: [id number] /
[2018-09-23] MEDS: ceFAZolin IN SWFI 2 GM/20 ML SYRINGE IVP SCH ×2 (02:48→11:09)
[2018-09-23] MEDS: LEVOTHYROXINE 75 MCG TAB PO SCH (05:32)
[2018-09-23] MEDS: LEVOTHYROXINE 100 MCG TAB PO SCH (05:32)
[2018-09-23] MEDS: FUROSEMIDE 10 MG/ML 4 ML VIAL IV SCH (05:32)
[2018-09-23 06:55] LABS: Anisocytosis Slight; HGB 10.6 gm/dL (11.4-16.0); Hypochromasia Moderate; MCH 27.4 pg (25.0-35.0); MCHC 31.2 g/dL (31.0-37.0); MCV 87.7 fL (80.0-100.0); Mean Platelet Volume 6.1; Platelet Count 313 k/uL (150-450); RBC 3.88 m/uL (3.80-5.40)
[2018-09-23 07:02] VITALS: RESP 20; TEMP 98
[2018-09-23 07:03] VITALS: BP 110/72
[2018-09-23 07:05] LABS: Glucose,Whole Blood 166 mg/dL (75-99)
[2018-09-23 07:16] LABS: Calcium 8.5 mg/dL (8.4-10.2); Potassium 4.4 mmol/L (3.5-5.1)
[2018-09-23] MEDS ORDERED: VANCOMYCIN TROUGH DUE 1 EACH MISC MISCELLANE ONE (08:00)
[2018-09-23] MEDS: ATORVASTATIN 40 MG TAB PO SCH (08:34)
[2018-09-23] MEDS: GLIMEPIRIDE 2 MG TAB PO SCH (08:34)
[2018-09-23] MEDS: METOPROLOL TARTRATE 25 MG TAB PO SCH (08:34)
[2018-09-23] MEDS: ASPIRIN 81 MG PO SCH (08:35)
[2018-09-23] MEDS: FAMOTIDINE 20 MG/2 ML VIAL IV SCH (08:35)
[2018-09-23] MEDS: HEPARIN SODIUM,PORCINE 5,000 UNIT/ML 1 ML VIAL SQ SCH (08:35)
[2018-09-23] MEDS: metFORMIN 500 MG TAB PO SCH (08:35)
[2018-09-23] MEDS: IPRATROPIUM-ALBUTEROL 3 ML NEB INHALATION SCH ×2 (08:46→12:08)
[2018-09-23] MEDS: SYMBICORT 160-4.5 MCG INHALER INHALATION SCH ×2 (08:47→09:10)
[2018-09-23 11:51] LABS: Glucose,Whole Blood 132 mg/dL (75-99)
[2018-09-23 12:20] VITALS: PULSE 76
[2018-09-23 13:04] VITALS: BMI 40.2
[2018-09-23 13:49] LABS: Hemoglobin A1C 8.7 % (4.0-6.0)
--- NOTE | 2018-09-23 14:15 | PN ---
PROGRESS NOTE DATE OF SERVICE: 09/23/2018 REASON FOR FOLLOWUP: Left lower extremity cellulitis. INTERVAL HISTORY: The patient is currently afebrile. She is breathing comfortably. The left leg swelling and redness has improved. The patient wants to go home. Denies having any chest pain, shortness of breath or cough. No abdominal pain, no diarrhea. PHYSICAL EXAMINATION: Blood pressure 110/72 with a pulse of 62, temperature 98, she is 95% 2 L nasal cannula. General description is an elderly female, up in the bed in no distress. RESPIRATORY SYSTEM: Unlabored breathing, clear to auscultation anteriorly. HEART: S1, S2. Regular rate and rhythm. ABDOMEN: Soft, no tenderness. Left leg redness has improved. [place]S: [place] [address], BUN of 24, creatinine 0.92. DIAGNOSTIC IMPRESSION AND PLAN: Patient with acute left lower extremity cellulitis with diffuse cellulitis likely streptococcal disease. Patient was advised to keep in the hospital on IV cefazolin until her white count normalized and afterwards, patient treated with oral Keflex. Continue supportive care. MMODL / IJN: [id number] /
--- NOTE | 2018-09-23 19:20 | P.DS ---
Providers Date of admission: 09/21/18 22:08 Expected date of discharge: 09/23/18 Attending physician: Helga Lei Consults: 09/21/18 23:19 Consult Physician Routine Consulting Provider: Mayco Jaffe Consult Reason/Comments: cellulitis Do you want consulting provider notified?: Yes Primary care physician: Ranjan Rogers Hospital Course: Final diagnoses -Acute cellulitis of the left leg, suspect streptococcal. - DVT ruled out. -Hypertension -COPD with acute exacerbation -Type 2 diabetes mellitus -Obesity -Hypothyroidism -No acute CHF,Denies history of CHF, normal EF. Hospital course:- This is a 68year-old female came in with just department with swelling of the left leg and redness. Patient to couple weeks ago had similar symptoms was treated facilities of the left leg, comes back again with worsening edema of both legs much worse on the left side with redness local is of temperature denied any fever chills. Patient does have history of COPD doesn 't have any history of congestive heart failure complained denied any complaints of shortness of breath although patient is wheezing on exam. Patient doesn't want to be on prednisone because of its side effects will use inhaled steroids inhalational treatments with watch her. Patient is on IV Lasix which I'll continue which will help with her pedal edema.she does have leukocytosis. Evaluated by infectious disease .Maintained on IV antibiotics of ceftezole and, leukocytosis improving currently down to 13. Afebrile. Advised maintaining IV antibiotics until WBC normalized. Discharge possibly tomorrow, but patient wants to go home today. Denies any chest pain, palpitations or increased shortness of breath. Cleared for discharge today by infectious disease. Patient is being discharged home in a stable condition with guarded prognosis. EXAMINATION: GENERAL: The patient is alert and oriented x3, not in any acute distress. Well developed, well nourished. HEENT: Pupils are round and equally reacting to light. EOMI. No scleral icterus. No conjunctival pallor. Normocephalic, atraumatic. CARDIOVASCULAR: S1 and S2 present. No murmurs, rubs, or gallops. PULMONARY: Chest is clear to auscultation, no wheezing or crackles. ABDOMEN: Soft, nontender, nondistended, normoactive bowel sounds. No palpable organomegaly. MUSCULOSKELETAL: No joint swelling or deformity. EXTREMITIES: No cyanosis, clubbing, left leg redness improved. NEUROLOGICAL: Gross neurological examination did not reveal any focal deficits. The impression and plan of care has been dictated as directed. : I performed a history and examination of this patient, discussed the same with the dictator. I agree with the dictator's note ,documented as a scribe. Any additional findings or plans will be noted. Time taken: 35 minutes Patient Condition at Discharge: Stable Plan - Discharge Summary Discharge Rx Participant: No New Discharge Prescriptions: New Budesonide-Formot 160-4.5 Mcg [Symbicort 160-4.5 Mcg Inhaler] 2 puff INHALATION RT-BID #1 inh Cephalexin [Keflex] 500 mg PO Q8HR #21 cap Furosemide [Lasix] 40 mg PO DAILY #30 tablet Continue Zafirlukast [Accolate] 20 mg PO BID Aspirin 81 mg PO DAILY HYDROcodone/APAP 7.5-325MG [[place] 7.5-325] 1 tab PO Q6H PRN PRN Reason: Pain Levothyroxine Sodium [Synthroid] 175 mcg PO DAILY Ergocalciferol [Vitamin D2 (DRISDOL)] 50,000 unit PO Q7D Albuterol Inhaler [Ventolin Hfa Inhaler] 2 puff INHALATION RT-Q4H PRN #0 PRN Reason: Dyspnea traZODone HCL 100 mg PO HS PRN PRN Reason: Insomnia metFORMIN HCL [Glucophage] 500 mg PO BID Fluticasone Nasal [place] [Flonase Nasal [place]] 1 - 2 spray EA NOSTRIL DAILY ARIPiprazole [Abilify] 5 mg PO HS Glimepiride [Amaryl] 2 mg PO AC-BRKFST Ipratropium-Albuterol Nebulize [Duoneb 0.5 mg-3 mg/3 ml Soln] 3 ml INHALATION RT-QID #120 ampul.neb Escitalopram [Lexapro] 10 mg PO HS Atorvastatin [Lipitor] 40 mg PO DAILY #30 tab Metoprolol Tartrate [Lopressor] 25 mg PO TID #90 tab Discharge Medication List Aspirin 81 mg PO DAILY 02/06/14 [History] HYDROcodone/APAP 7.5-325MG [[place] 7.5-325] 1 tab PO Q6H PRN 02/06/14 [History] Zafirlukast [Accolate] 20 mg PO BID 02/06/14 [History] Ergocalciferol [Vitamin D2 (DRISDOL)] 50,000 unit PO Q7D 12/10/14 [History] Levothyroxine Sodium [Synthroid] 175 mcg PO DAILY 12/10/14 [History] Albuterol Inhaler [Ventolin Hfa Inhaler] 2 puff INHALATION RT-Q4H PRN #0 [Rx] ARIPiprazole [Abilify] 5 mg PO HS 02/07/18 [History] Fluticasone Nasal [place] [Flonase Nasal [place]] 1 - 2 spray EA NOSTRIL DAILY 02/07 [History] Glimepiride [Amaryl] 2 mg PO AC-BRKFST 02/07/18 [History] metFORMIN HCL [Glucophage] 500 mg PO BID 02/07/18 [History] traZODone HCL 100 mg PO HS PRN 02/07/18 [History] Ipratropium-Albuterol Nebulize [Duoneb 0.5 mg-3 mg/3 ml Soln] 3 ml INHALATION RT -QID #120 ampul.neb 02/09/18 [Rx] Escitalopram [Lexapro] 10 mg PO HS 09/08/18 [History] Atorvastatin [Lipitor] 40 mg PO DAILY #30 tab 09/10/18 [Rx] Metoprolol Tartrate [Lopressor] 25 mg PO TID #90 tab 09/10/18 [Rx] Budesonide-Formot 160-4.5 Mcg [Symbicort 160-4.5 Mcg Inhaler] 2 puff INHALATION RT-BID #1 inh 09/23/18 [Rx] Cephalexin [Keflex] 500 mg PO Q8HR #21 cap 09/23/18 [Rx] Furosemide [Lasix] 40 mg PO DAILY #30 tablet 09/23/18 [Rx] Follow up Appointment(s)/Referral(s): Oliva Silveiar MD [STAFF PHYSICIAN] - 09/23/18 3:00 pm Ken Woodruff MD [Primary Care Provider] - 09/26/18 1:50 pm [facility], [NON-STAFF] - Ambulatory/Diagnostic Orders: Complete Blood Count w/diff [LAB.AMB] Time Frame: 3 Days, Location: None Selected Patient Instructions/Handouts: Heart Failure (DC), Cellulitis (DC) Activity/Diet/Wound Care/Special Instructions: check BP, q am, maintain log, take to F/U visit with PCP, for further rec. Lisinopril & Norvasc on hold, re-eval Op with PCP at F/U visit
[2018-09-23] MEDS ORDERED: FAMOTIDINE 20 MG TAB PO SCH (21:00)
== END 2018-09-23 14:36 | disposition home health service (06) | DRG 603 ==
LOC: EC 17:24 → 4SSUR 22:08
PROVIDERS: ADMIT Hospitalist; ATTEND Hospitalist
DX: L03.116 Cellulitis of left lower limb (principal); J44.1 Chronic obstructive pulmonary disease with (acute) exacerbation; I10 Essential (primary) hypertension; B95.5 Unspecified streptococcus as the cause of diseases classified elsewhere; Z68.35 Body mass index [BMI] 35.0-35.9, adult; Z88.0 Allergy status to penicillin; Z88.8 Allergy status to other drugs, medicaments and biological substances; Z88.1 Allergy status to other antibiotic agents; Z91.040 Latex allergy status; M51.36 Other intervertebral disc degeneration, lumbar region; G89.29 Other chronic pain; F17.210 Nicotine dependence, cigarettes, uncomplicated; E03.9 Hypothyroidism, unspecified; E11.9 Type 2 diabetes mellitus without complications; E66.9 Obesity, unspecified; F32.9 Major depressive disorder, single episode, unspecified; F41.9 Anxiety disorder, unspecified; H40.9 Unspecified glaucoma; I11.0 Hypertensive heart disease with heart failure; I50.9 Heart failure, unspecified; Z79.82 Long term (current) use of aspirin; Z79.84 Long term (current) use of oral hypoglycemic drugs; Z79.890 Hormone replacement therapy; Z79.899 Other long term (current) drug therapy; Z80.0 Family history of malignant neoplasm of digestive organs; Z80.8 Family history of malignant neoplasm of other organs or systems; Z82.49 Family history of ischemic heart disease and other diseases of the circulatory system; Z82.5 Family history of asthma and other chronic lower respiratory diseases; Z85.828 Personal history of other malignant neoplasm of skin; Z87.442 Personal history of urinary calculi; Z91.81 History of falling
CPT/HCPCS: 36415; 71046; 80048; 80053; 83036; 83605; 83880; 85025; 85027; 87040; 94640; 96365; 96375; 99285

== ENCOUNTER 2019-09-02 22:19 | Inpatient (IN) | payer MEDICARE, OTHER ==
[2019-09-02] MEDS ORDERED: methylPREDNISolone SOD SUCCI 125 MG/2 ML VIAL IV STA (22:41)
[2019-09-02] MEDS ORDERED: IPRATROPIUM-ALBUTEROL 3 ML NEB INHALATION STA (22:41)
--- NOTE | 2019-09-02 22:44 | ED ---
Weakness HPI - General Chief complaint: Weakness Stated complaint: Weakness Time Seen by Provider: 09/02/19 22:36 Source: patient, RN notes reviewed, old records reviewed Mode of arrival: wheelchair Limitations: no limitations - History of Present Illness Initial comments: This is a 69-year-old female the ER for evaluation. She presents today for evaluation regards to weakness patient is a relatively poor historian but states no hospitalizations in the last year. Patient was sent in by primary care states she has some sort of murmur concerned about her murmur her weakness and shortness of breath. Patient states had she is severely SOB. His of severe history of COPD and asthma. Otherwise no pain of travel history no sick contacts MD Complaint: generalized weakness, lack of energy, difficulty walking -: days(s) Location: generalized Severity: moderate Severity scale (1-10): 5 Consistency: constant Improves with: none Worsens with: exertion Context: history of similar Associated Symptoms: confusion, shortness of breath - Related Data Home Medications Medication Instructions Recorded Confirmed Aspirin 81 mg PO DAILY 02/06/14 09/21/18 HYDROcodone/APAP 7.5-325MG [[place] 1 tab PO Q6H PRN 02/06/14 09/21/18 7.5-325] Zafirlukast [Accolate] 20 mg PO BID 02/06/14 09/21/18 Ergocalciferol [Vitamin D2 50,000 unit PO Q7D 12/10/14 09/21/18 (DRISDOL)] Levothyroxine Sodium [Synthroid] 175 mcg PO DAILY 12/10/14 09/21/18 ARIPiprazole [Abilify] 5 mg PO HS 02/07/18 09/21/18 Fluticasone Nasal [place] [Flonase 1 - 2 spray EA NOSTRIL DAILY 02/07/18 09/21/18 Nasal [place]] Glimepiride [Amaryl] 2 mg PO AC-BRKFST 02/07/18 09/21/18 metFORMIN HCL [Glucophage] 500 mg PO BID 02/07/18 09/21/18 traZODone HCL 100 mg PO HS PRN 02/07/18 09/21/18 Escitalopram [Lexapro] 10 mg PO HS 09/08/18 09/21/18 Previous Rx's Medication Instructions Recorded Albuterol Inhaler [Ventolin Hfa 2 puff INHALATION RT-Q4H PRN #0 09/07/15 Inhaler] Ipratropium-Albuterol Nebulize 3 ml INHALATION RT-QID #120 02/09/18 [Duoneb 0.5 mg-3 mg/3 ml Soln] ampul.neb Atorvastatin [Lipitor] 40 mg PO DAILY #30 tab 09/10/18 Metoprolol Tartrate [Lopressor] 25 mg PO TID #90 tab 09/10/18 Budesonide-Formot 160-4.5 Mcg 2 puff INHALATION RT-BID #1 inh 09/23/18 [Symbicort 160-4.5 Mcg Inhaler] Cephalexin [Keflex] 500 mg PO Q8HR #21 cap 09/23/18 Furosemide [Lasix] 40 mg PO DAILY #30 tablet 09/23/18 Allergies Allergy/AdvReac Type Severity Reaction Status Date / Time adhesive Allergy Rash/Hives Verified 09/02/19 22:24 ciprofloxacin [From Cipro] Allergy Rash/Hives Verified 09/02/19 22:24 ciprofloxacin HCl Allergy Rash/Hives Verified 09/02/19 22:24 [From Cipro] latex Allergy Rash/Hives Verified 09/02/19 22:24 nitrofurantoin Allergy Rash/Hives Verified 09/02/19 22:24 [From Macrobid] nitrofurantoin Allergy Rash/Hives Verified 09/02/19 22:24 macrocrystalline [From Macrobid] Penicillins Allergy Rash/Hives Verified 09/02/19 22:24 propoxyphene HCl Allergy Rash/Hives Verified 09/02/19 22:24 [From Darvon] propoxyphene napsylate Allergy Unknown Verified 09/02/19 22:24 [From Darvocet-N] Review of Systems ROS Statement: Those systems with pertinent positive or pertinent negative responses have been documented in the HPI. ROS Other: All systems not noted in ROS Statement are negative. Past Medical History Past Medical History: Asthma, Chest Pain / Angina, COPD, Diabetes Mellitus, Hyperlipidemia, Hypertension, Osteoarthritis (OA), Respiratory Disorder, Skin Disorder, Thyroid Disorder Additional Past Medical History / Comment(s): Obesity (BMI 35) COPD, asthma, diabetes , depression, 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 The patient is also a smoker. The patient has chronic back pain. History of Any Multi-Drug Resistant Organisms: None Reported Past Surgical History: Appendectomy, Section, Cholecystectomy, Orthopedic Surgery, Tubal Ligation Additional Past Surgical History / Comment(s): LASER SX JETHRO EYES FOR GLAUCOMA. RT KNEE ARTHROSCOPY. UNDERWENT PERCUTANEOUS NEPHROSTOLITHOTOMY Past Anesthesia/Blood Transfusion Reactions: No Reported Reaction Past Psychological History: Anxiety, Depression Smoking Status: Current every day smoker Past Alcohol Use History: None Reported Past Drug Use History: None Reported - Past Family History Mother Additional Family Medical History / Comment(s): emphysema, heart valve problems, in her slepp. Brother(s) Family Medical History: Cancer Additional Family Medical History / Comment(s): from oral cancer Father Brother(s) Family Medical History: Cancer Additional Family Medical History / Comment(s): heart disease General Exam Limitations: no limitations General appearance: alert, in no apparent distress, anxious, in distress, obese Head exam: Present: atraumatic, normocephalic, normal inspection Eye exam: Present: normal appearance, PERRL, EOMI. Absent: scleral icterus, conjunctival injection, periorbital swelling ENT exam: Present: normal exam, mucous membranes moist Neck exam: Present: normal inspection. Absent: tenderness, meningismus, lymphadenopathy Respiratory exam: Present: respiratory distress, wheezes, accessory muscle use, decreased breath sounds, prolonged expiratory. Absent: rales, rhonchi, stridor Cardiovascular Exam: Present: regular rate, normal rhythm, normal heart sounds. Absent: systolic murmur, diastolic murmur, rubs, gallop, clicks GI/Abdominal exam: Present: soft, normal bowel sounds. Absent: distended, tenderness, guarding, rebound, rigid Extremities exam: Present: normal inspection, full ROM, normal capillary refill. Absent: tenderness, pedal edema, joint swelling, calf tenderness Back exam: Present: normal inspection Neurological exam: Present: alert, oriented X3, CN II-XII intact Psychiatric exam: Present: normal affect, normal mood Skin exam: Present: warm, dry, intact, normal color. Absent: rash Course Vital Signs 09/02/19 09/02/19 09/02/19 22:20 23:00 23:10 Temperature 98.4 F Pulse Rate 85 71 73 Respiratory 18 16 16 Rate Blood Pressure 164/65 158/57 163/66 O2 Sat by Pulse 92 L 97 98 Oximetry 09/02/19 23:12 Temperature Pulse Rate 80 Respiratory Rate Blood Pressure O2 Sat by Pulse Oximetry - Reevaluation(s) Reevaluation #1: 09/02/19 23:23 Medical record review Reevaluation #2: 09/02/19 23:23 Does have some mild improvement in breathing here in the ER after treatment - Consultations Consultation #1: spoke w [facility] damian for admission EKG Findings - EKG Comments: EKG Findings:: EKG shows sinus rhythm rate of 82, MA 150, QRS 84, QTC 457 Medical Decision Making - Medical Decision Making 69-year-old female here with both COPD and CHF current exacerbation. Patient be made for breathing treatments, diuresis - Lab Data Result diagrams: 09/02/19 22:47 09/02/19 22:47 Lab Results 09/02/19 09/02/19 09/02/19 Range/Units 22:47 22:47 22:47 WBC 9.7 (3.8-10.6) k/uL RBC 4.20 (3.80-5.40) m/uL Hgb 8.5 L (11.4-16.0) gm/dL Hct 29.8 L (34.0-46.0) % MCV 71.0 L (80.0-100.0) fL MCH 20.2 L (25.0-35.0) pg MCHC 28.5 L (31.0-37.0) g/dL RDW 17.6 H (11.5-15.5) % Plt Count 436 (150-450) k/uL Neutrophils % 79 % Lymphocytes % 8 % Monocytes % 5 % Eosinophils % 4 % Basophils % 1 % Neutrophils # 7.6 (1.3-7.7) k/uL Lymphocytes # 0.7 L (1.0-4.8) k/uL Monocytes # 0.5 (0-1.0) k/uL Eosinophils # 0.4 (0-0.7) k/uL Basophils # 0.1 (0-0.2) k/uL Hypochromasia Marked Poikilocytosis Moderate Anisocytosis Slight Microcytosis Marked PT 11.8 (9.0-12.0) sec INR 1.2 H (<1.2) APTT 23.5 (22.0-30.0) sec Sodium 133 L (137-145) mmol/L Potassium 4.6 (3.5-5.1) mmol/L Chloride 101 (98-107) mmol/L Carbon Dioxide 25 (22-30) mmol/L Anion Gap 7 mmol/L BUN 14 (7-17) mg/dL Creatinine 0.50 L (0.52-1.04) mg/dL Est GFR (CKD-EPI)AfAm >90 (>60 ml/min/1.73 sqM) Est GFR (CKD-EPI)NonAf >90 (>60 ml/min/1.73 sqM) Glucose 232 H (74-99) mg/dL Calcium 8.4 (8.4-10.2) mg/dL Magnesium 1.3 L (1.6-2.3) mg/dL Total Bilirubin 0.5 (0.2-1.3) mg/dL AST 21 (14-36) U/L ALT 11 (4-34) U/L Alkaline Phosphatase 131 H (38-126) U/L Creatine Kinase 49 (30-135) U/L Total Protein 6.0 L (6.3-8.2) g/dL Albumin 3.1 L (3.5-5.0) g/dL - Radiology Data Radiology results: report reviewed (Chest x-rays positive for CHF), image rev iewed Disposition Clinical Impression: Exertional dyspnea, Leg edema, CHF (congestive heart failure), Orthopnea, Acute exacerbation of chronic obstructive pulmonary disease (COPD), Dehydration Disposition: ADMITTED IP TO THIS HOSP Condition: Serious Is patient prescribed a controlled substance at d/c from ED?: No Referrals: Connor Carreon [Primary Care Provider] - 1-2 days
[2019-09-02 23:04] LABS: Anisocytosis Slight; Basophils # (A) 0.1 k/uL (0-0.2); Basophils % (A) 1 %; Eosinophils # (A) 0.4 k/uL (0-0.7); Eosinophils % (A) 4 %; HCT 29.8 % (34.0-46.0); HGB 8.5 gm/dL (11.4-16.0); Hypochromasia Marked; Lymphocytes # (A) 0.7 k/uL (1.0-4.8); Lymphocytes % (A) 8 %; MCH 20.2 pg (25.0-35.0); MCHC 28.5 g/dL (31.0-37.0); Microcytosis Marked; Monocytes # (A) 0.5 k/uL (0-1.0); Monocytes % (A) 5 %; Neutrophils # (A) 7.6 k/uL (1.3-7.7); Neutrophils % (A) 79 %; Platelet Count 436 k/uL (150-450); Poikilocytosis Moderate; RDW 17.6 % (11.5-15.5); WBC 9.7 k/uL (3.8-10.6)
[2019-09-02 23:09] LABS: ALT 11 U/L (4-34); AST 21 U/L (14-36); African American GFR (CKD) >90 (>60 ml/min/1.73 sqM); Albumin 3.1 g/dL (3.5-5.0); Alkaline Phosphatase 131 U/L (38-126); Anion Gap 7 mmol/L; Blood Urea Nitrogen 14 mg/dL (7-17); Calcium 8.4 mg/dL (8.4-10.2); Carbon Dioxide 25 mmol/L (22-30); Chloride 101 mmol/L (98-107); Creatine Kinase 49 U/L (30-135); Glucose 232 mg/dL (74-99); Magnesium 1.3 mg/dL (1.6-2.3); Non-African American GFR(CKD) >90 (>60 ml/min/1.73 sqM); Potassium 4.6 mmol/L (3.5-5.1); Sodium 133 mmol/L (137-145); Total Bilirubin 0.5 mg/dL (0.2-1.3)
[2019-09-02 23:14] LABS: INR 1.2 (<1.2); Partial Thromboplastin Time 23.5 sec (22.0-30.0); Prothrombin Time 11.8 sec (9.0-12.0)
--- NOTE | 2019-09-02 23:15 | XR ---
EXAMINATION TYPE: XR chest 1V portable DATE OF EXAM: 09/02/2019 COMPARISON: September 21, 2018 HISTORY: Short of breath TECHNIQUE: Single view FINDINGS: Heart is slightly enlarged. There is mild pulmonary congestion. There is no pleural effusio n. There are chest leads. There is coarse density right lower lobe. There is no pulmonary consolidati on. IMPRESSION: Cardiomegaly and mild congestion. No obvious heart failure. No change compared to last exam.
[2019-09-02] MEDS ORDERED: IPRATROPIUM-ALBUTEROL 3 ML NEB INHALATION PRN (23:25)
[2019-09-03] MEDS: FUROSEMIDE 10 MG/ML 4 ML VIAL IV SCH ×3 (00:02→16:12)
[2019-09-03] MEDS: methylPREDNISolone SOD SUCCI 125 MG/2 ML VIAL IV SCH ×3 (00:29→11:21)
[2019-09-03] MEDS ORDERED: traZODone HCL 100 MG TAB PO PRN (03:11)
[2019-09-03] MEDS ORDERED: ARIPiprazole 5 MG TAB PO SCH (03:18)
[2019-09-03] MEDS ORDERED: ESCITALOPRAM 10 MG TAB PO SCH (03:19)
[2019-09-03] MEDS ORDERED: METOPROLOL TARTRATE 25 MG TAB PO SCH (03:30)
[2019-09-03] MEDS ORDERED: oxyCODONE-APAP 5-325MG 1 EACH TAB PO PRN (03:47)
[2019-09-03] MEDS: METOPROLOL TARTRATE 25 MG TAB PO SCH ×4 (04:18→21:22)
[2019-09-03] MEDS: ESCITALOPRAM 10 MG TAB PO SCH ×2 (04:19→19:48)
[2019-09-03] MEDS: ARIPiprazole 5 MG TAB PO SCH ×2 (04:19→19:48)
[2019-09-03] MEDS ORDERED: LEVOTHYROXINE 50 MCG TAB PO SCH ×2 (06:30→06:35)
[2019-09-03 07:09] LABS: Glucose,Whole Blood 286 mg/dL (75-99)
[2019-09-03] MEDS: ENOXAPARIN 40 MG/0.4 ML SYRINGE SQ SCH (07:13)
[2019-09-03] MEDS: ASPIRIN 81 MG PO SCH (07:13)
[2019-09-03] MEDS: INSULIN ASPART (NovoLOG) 100 UNIT/ML VIAL SQ SCH ×4 (07:13→21:22)
[2019-09-03] MEDS: ATORVASTATIN 40 MG TAB PO SCH (07:13)
[2019-09-03] MEDS: ALBUTEROL NEBULIZED 2.5 MG/3 ML INHALATION SCH ×4 (07:20→20:04)
[2019-09-03] MEDS ORDERED: ATORVASTATIN 40 MG TAB PO SCH (09:00)
[2019-09-03] MEDS ORDERED: ASPIRIN 81 MG PO SCH (09:00)
[2019-09-03 11:10] LABS: Glucose,Whole Blood 266 mg/dL (75-99)
[2019-09-03 11:46] VITALS: BMI 40.4
[2019-09-03] MEDS: MAGNESIUM SULFATE-D5W PMX 1 GM in DEXTROSE/WATER 1 100ML.BAG IVPB SCH ×3 (12:35→16:12)
--- NOTE | 2019-09-03 14:33 | P.CRDCN ---
History of Present Illness History of present illness: HISTORY OF PRESENTING ILLNESS This is a pleasant 69-year-old female past medical history significant for COPD, diabetes mellitus, hypertension, dyslipidemia and morbid obesity. She also unfortunately continues to smoke. She denies prior history of coronary artery disease and does not follow with a senior scientist for any reason. We have been asked to see her in consultation secondary to congestive heart failure. She presented to the hospital with symptoms of progressively worsening shortness of breath and cough. She has COPD and uses oxygen at home PRN. She also has chronic lower extremity edema for which she takes lasix and uses wraps on her legs. She denies prior diagnosis of heart failure. She denies associated chest pain, dizziness or palpitations. EKG reveals sinus mechanism with no acute changes, left axis deviation and poor R-wave progression. Chest xray reveals mild pulmonary congestion mostly over the right lower lobe. No obvious heart failure. Laboratory data reviewed, WBC 9.7, hemoglobin 8.5, platelets 436, sodium 133, potassium 4.6, creatinine 0.5, alkaline phosphate 131, cardiac enzymes negative 1, NT proBNP 4640. Current daily cardiac medications include Lopressor 25 mg 3 times a day, atorvastatin 40 mg daily, aspirin 81 mg daily, Lasix 20 mg daily and lisinopril 10 mg daily. Most recent stress test performed 2016 was a Lexiscan stress test that was negative for reversible cardiac ischemia. Most recent echocardiogram obtained August 2018 reveals preserved LV systolic function with ejection fraction 55-60%, mild MR and mild TR. REVIEW OF SYSTEMS At the time of my exam: CONSTITUTIONAL: Denies fever or chills. CARDIOVASCULAR: Complains of shortness of breath. Denies chest pain, orthopnea, PND or palpitations. RESPIRATORY: Complains of cough. GASTROINTESTINAL: Denies abdominal pain, diarrhea, constipation, nausea or vomiting. MUSCULOSKELETAL: Denies myalgias. NEUROLOGIC: Denies numbness, tingling or weakness. ENDOCRINE: Denies fatigue, weight change, polydipsia or polyurina. GENITOURINARY: Denies burning, hematuria or urgency with micturation. HEMATOLOGIC: Denies history of anemia or bleeding. PHYSICAL EXAMINATION Blood pressure 180/75 heart rate 73 afebrile and maintaining oxygen saturation on nasal cannula. CONSTITUTIONAL: No apparent distress. HEENT: Head is normocephalic. Pupils are equal, round. Sclerae anicteric. Mucous membranes of the mouth are moist. No JVD. No carotid bruit. CHEST EXAMINATION: Significant audible wheezes inspiratory and expiratory with scattered rhonchi. No rales. No chest wall tenderness is noted on palpation or with deep breathing. HEART EXAMINATION: Regular rate and rhythm. S1, S2 heard. No murmurs, gallops or rub. ABDOMEN: Soft, nontender. Positive bowel sounds. EXTREMITIES: 2+ peripheral pulses, no lower extremity edema and no calf tenderness. NEUROLOGIC EXAMINATION: Patient is awake, alert and oriented x3. ASSESSMENT Shortness of breath, multi-factorial secondary to COPD and diastolic heart failure. Acute on chronic diastolic heart failure secondary Anemia COPD Hypomagnesemia Hypertension Dyslipidemia PLAN Obtain 2D echocardiogram and doppler study to assess cardiac structure and function. Continue diuresis. Add aldactone 25 mg daily. Follow renal function and electrolytes in the morning. Repeat chest xray in the morning. We will continue to follow and make recommendations accordingly. Thank you kindly for this consultation. Nurse Practitioner note has been reviewed, I agree with a documented findings and plan of care. Patient was seen and examined. Past Medical History Past Medical History: Asthma, Chest Pain / Angina, COPD, Diabetes Mellitus, Hyperlipidemia, Hypertension, Osteoarthritis (OA), Respiratory Disorder, Skin Disorder, Thyroid Disorder Additional Past Medical History / Comment(s): Obesity (BMI 35) COPD, asthma, diabetes , depression, 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 The patient is also a smoker. The patient has chronic back pain. History of Any Multi-Drug Resistant Organisms: None Reported Past Surgical History: Appendectomy, Section, Cholecystectomy, Orthopedic Surgery, Tubal Ligation Additional Past Surgical History / Comment(s): LASER SX JETHRO EYES FOR GLAUCOMA. RT KNEE ARTHROSCOPY. UNDERWENT PERCUTANEOUS NEPHROSTOLITHOTOMY Past Anesthesia/Blood Transfusion Reactions: No Reported Reaction Past Psychological History: Anxiety, Depression Additional Psychological History / Comment(s): pt stated maintained by meds. and lives with the and adult son. 2 adult children. 2 dogs and 6 cats in the home, they rescue. Ongoing tobacco use but denied alcohol use or recreational drug use. Does not work outside of the home. No experience. No travel history Smoking Status: Current every day smoker Past Alcohol Use History: None Reported Additional Past Alcohol Use History / Comment(s): Patient is an active smoker one pack per day and started smoking in 1968. She denies any marijuana, illicit drug use or alcohol use. She is and lives at home with her . T here are 2 dogs and 2 cats in the home. No service and no travel history. Past Drug Use History: None Reported - Past Family History Mother Additional Family Medical History / Comment(s): emphysema, heart valve problems, in her slepp. Brother(s) Family Medical History: Cancer Additional Family Medical History / Comment(s): from oral cancer Father Brother(s) Family Medical History: Cancer Additional Family Medical History / Comment(s): heart disease Medications and Allergies Home Medications Medication Instructions Recorded Confirmed Type Aspirin 81 mg PO DAILY 02/06/14 09/03/19 History Zafirlukast [Accolate] 20 mg PO BID 02/06/14 09/03/19 History Albuterol Inhaler [Ventolin Hfa 2 puff INHALATION RT-Q4H PRN #0 09/07/1508/20 Rx Inhaler] ARIPiprazole [Abilify] 5 mg PO HS 02/07/18 09/03/19 History Fluticasone Nasal [place] [Flonase 1 - 2 spray EA NOSTRIL DAILY 02/07/18 09/03/19 History Nasal [place]] metFORMIN HCL [Glucophage] 1,000 mg PO BID 02/07/18 09/03/19 History traZODone HCL 100 mg PO HS PRN 02/07/18 09/03/19 History Ipratropium-Albuterol Nebulize 3 ml INHALATION RT-QID #120 02/09/18 09/03/19 Rx [Duoneb 0.5 mg-3 mg/3 ml Soln] ampul.neb Escitalopram [Lexapro] 10 mg PO HS 09/08/18 09/03/19 History Atorvastatin [Lipitor] 40 mg PO DAILY #30 tab 09/10/18 09/03/19 Rx Metoprolol Tartrate [Lopressor] 25 mg PO TID #90 tab 09/10/18 09/03/19 Rx Cholecalciferol [Vitamin D3 (25 1,000 unit PO DAILY 09/03/19 09/03/19 History Mcg = 1000 Iu)] Furosemide [Lasix] 20 mg PO DAILY 09/03/19 09/03/19 History Levothyroxine Sodium [Synthroid] 200 mcg PO DAILY 09/03/19 09/03/19 History Lisinopril [Zestril] 10 mg PO DAILY 09/03/19 09/03/19 History Pantoprazole [Protonix] 40 mg PO DAILY 09/03/19 09/03/19 History Umeclidinium [place] [Incruse 1 puff INHALATION RT-DAILY 09/03/19 09/03/19 History Ellipta] oxyCODONE-APAP 7.5-325MG [Percocet 1 tab PO Q4H PRN 09/03/19 09/03/19 History 7.5-325 mg] Allergies Allergy/AdvReac Type Severity Reaction Status Date / Time adhesive Allergy Rash/Hives Verified 09/02/19 22:24 ciprofloxacin [From Cipro] Allergy Rash/Hives Verified 09/02/19 22:24 ciprofloxacin HCl Allergy Rash/Hives Verified 09/02/19 22:24 [From Cipro] latex Allergy Rash/Hives Verified 09/02/19 22:24 nitrofurantoin Allergy Rash/Hives Verified 09/02/19 22:24 [From Macrobid] nitrofurantoin Allergy Rash/Hives Verified 09/02/19 22:24 macrocrystalline [From Macrobid] Penicillins Allergy Rash/Hives Verified 09/02/19 22:24 propoxyphene HCl Allergy Rash/Hives Verified 09/02/19 22:24 [From Darvon] propoxyphene napsylate Allergy Unknown Verified 09/02/19 22:24 [From Darvocet-N] Physical Exam Vitals: Vital Signs Temp Pulse Pulse Resp BP BP Pulse Ox 09/03/19 11:53 76 09/03/19 11:41 76 09/03/19 07:36 68 09/03/19 07:20 64 09/03/19 07:00 20 09/03/19 05:05 98.0 F 73 22 180/75 97 09/03/19 04:39 18 09/03/19 01:55 98.3 F 80 18 142/80 91 L 09/03/19 01:02 97.8 F 74 21 169/72 95 09/03/19 00:00 79 20 156/71 94 L 09/02/19 23:30 75 18 163/66 99 09/02/19 23:29 73 09/02/19 23:12 80 09/02/19 23:10 73 16 163/66 98 09/02/19 23:00 71 16 158/57 97 09/02/19 22:20 98.4 F 85 18 164/65 92 L Intake and Output 09/02/19 09/03/19 09/03/19 22:59 06:59 14:59 Other: Voiding Method Bedside Commode # Voids 1 Weight 90.718 kg 90.718 kg 90.718 kg Results 09/02/19 22:47 09/02/19 22:47 Cardiac Enzymes 09/02/19 09/02/19 Range/Units 22:47 22:47 AST 21 (14-36) U/L Troponin I <0.012 (0.000-0.034) ng/mL Coagulation 09/02/19 Range/Units 22:47 PT 11.8 (9.0-12.0) sec APTT 23.5 (22.0-30.0) sec CBC 09/02/19 Range/Units 22:47 WBC 9.7 (3.8-10.6) k/uL RBC 4.20 (3.80-5.40) m/uL Hgb 8.5 L (11.4-16.0) gm/dL Hct 29.8 L (34.0-46.0) % Plt Count 436 (150-450) k/uL Comprehensive Metabolic Panel 09/02/19 Range/Units 22:47 Sodium 133 L (137-145) mmol/L Potassium 4.6 (3.5-5.1) mmol/L Chloride 101 (98-107) mmol/L Carbon Dioxide 25 (22-30) mmol/L BUN 14 (7-17) mg/dL Creatinine 0.50 L (0.52-1.04) mg/dL Glucose 232 H (74-99) mg/dL Calcium 8.4 (8.4-10.2) mg/dL AST 21 (14-36) U/L ALT 11 (4-34) U/L Alkaline Phosphatase 131 H (38-126) U/L Total Protein 6.0 L (6.3-8.2) g/dL Albumin 3.1 L (3.5-5.0) g/dL Current Medications Generic Name Dose Route Start Last Admin Trade Name Freq PRN Reason Stop Dose Admin Albuterol Sulfate 2.5 mg 09/03/19 08:00 09/03/19 11:41 Ventolin Nebulized INHALATION 2.5 mg RT-QID KIET Administration Albuterol/Ipratropium 3 ml 09/02/19 23:25 Duoneb 0.5 Mg-3 Mg/3 Ml Soln INHALATION RT-Q4H PRN Shortness Of Breath Or Wheezing Aripiprazole 5 mg 09/03/19 03:38 09/03/19 04:19 Abilify PO 5 mg HS KIET Administration Aspirin 81 mg 09/03/19 09:05 09/03/19 07:13 Aspirin PO 81 mg DAILY KIET Administration Atorvastatin Calcium 40 mg 09/03/19 09:05 09/03/19 07:13 Lipitor PO 40 mg DAILY KIET Administration Enoxaparin Sodium 40 mg 09/03/19 09:00 09/03/19 07:13 Lovenox SQ 40 mg DAILY KIET Administration Escitalopram Oxalate 10 mg 09/03/19 03:42 09/03/19 04:19 Lexapro PO 10 mg HS KIET Administration Furosemide 40 mg 09/02/19 23:30 09/03/19 11:22 Lasix IV 40 mg Q12H KIET Administration Magnesium Sulfate/Dextrose 1 100 mls @ 100 mls/hr 09/03/19 12:00 gm/ IV Solution IVPB 09/03/19 14:59 Q1H COUNTS INCLUDE 234 BEDS AT THE [facility] Insulin Aspart 0 unit 09/03/19 07:30 09/03/19 07:13 Novolog SQ 5 unit ACHS COUNTS INCLUDE 234 BEDS AT THE [facility] Administration Protocol Levothyroxine Sodium 175 mcg 09/03/19 06:35 09/03/19 07:10 Synthroid PO 175 mcg DAILY@0630 COUNTS INCLUDE 234 BEDS AT THE [facility] Administration Methylprednisolone Sodium Succinate 60 mg 09/03/19 00:00 09/03/19 11:21 Solu-Medrol IV 60 mg Q6HR KIET Administration Metoprolol Tartrate 25 mg 09/03/19 03:43 09/03/19 07:13 Lopressor PO 25 mg TID COUNTS INCLUDE 234 BEDS AT THE [facility] Administration Montelukast Sodium 10 mg 09/03/19 21:05 Singulair PO HS KIET Oxycodone/Acetaminophen 1 each 09/03/19 03:47 Percocet 5-325 PO Q6HR PRN Pain Trazodone HCl 100 mg 09/03/19 03:44 Desyrel PO HS PRN Insomnia Intake and Output 09/02/19 09/03/19 09/03/19 22:59 06:59 14:59 Other: Voiding Method Bedside Commode # Voids 1 Weight 90.718 kg 90.718 kg 90.718 kg Patient Weight 09/04/19 06:59 Weight 90.718 kg 09/02/19 22:47 09/02/19 22:47
[2019-09-03] MEDS: ALPRAZolam 0.25 MG TAB PO PRN (14:51)
[2019-09-03] MEDS: SPIRONOLACTONE 25 MG TAB PO SCH (14:51)
--- NOTE | 2019-09-03 15:00 | ECHOF ---
Referral Reason:sob MEASUREMENTS -------- HEIGHT: 149.9 cm WEIGHT: 90.7 kg BP: 180/75 RVIDd: 3.7 cm (< 3.3) IVSd: 1.4 cm (0.6 - 1.1) LVIDd: 3.9 cm (3.9 - 5.3) LVPWd: 1.4 cm (0.6 - 1.1) IVSs: 1.7 cm LVIDs: 2.5 cm LVPWs: 1.7 cm LA Diam: 3.7 cm (2.7 - 3.8) Ao Diam: 3.0 cm (2.0 - 3.7) AV Cusp: 1.7 cm (1.5 - 2.6) MV EXCURSION: 14.577 mm (> 18.000) MV EF SLOPE: 75 mm/s (70 - 150) MV E Neal: 1.72 m/s MV DecT: 157 ms MV A Neal: 1.34 m/s MV E/A Ratio: 1.28 AV maxP.50 mmHg AV meanP.14 mmHg RAP: 15.00 mmHg RVSP: 76.06 mmHg TAPSE: 14.45 mm FINDINGS -------- Sinus rhythm. This was a technically adequate study. The left ventricular size is normal. There is moderate concentric left ventricular hypertrophy. O verall left ventricular systolic function is normal with, an EF between 60 - 65 %. The right ventricle is mildly enlarged. Normal LA size by volume 22+/-6 ml/m2. The right atrium is normal in size. Interatrial and interventricular septum intact. There is mild aortic valve sclerosis. There is mild aortic stenosis present. Peak/mean gradient a cross the Aortic Valve is 23.50mmHg / 13.14mmHg. Mild mitral annular calcification present. Mild mitral regurgitation is present. Moderate tricuspid regurgitation present. There is severe pulmonary hypertension. The right ventr icular systolic pressure, as measured by Doppler, is 76.06mmHg. Trace/mild (physiologic) pulmonic regurgitation. The aortic root size is normal. The inferior vena cava is dilated with no significant inspiratory collapse which is consistent estima marty right atrial pressure of >15 mmHg. There is no pericardial effusion. CONCLUSIONS -------- 1. Sinus rhythm. 2. This was a technically adequate study. 3. The left ventricular size is normal. 4. There is moderate concentric left ventricular hypertrophy. 5. Overall left ventricular systolic function is normal with, an EF between 60 - 65 %. 6. The right ventricle is mildly enlarged. 7. Normal LA size by volume 22+/-6 ml/m2. 8. The right atrium is normal in size. 9. Interatrial and interventricular septum intact. 10. There is mild aortic valve sclerosis. 11. There is mild aortic stenosis present. 12. Peak/mean gradient across the Aortic Valve is 23.50mmHg / 13.14mmHg. 13. Mild mitral annular calcification present. 14. Mild mitral regurgitation is present. 15. Moderate tricuspid regurgitation present. 16. There is severe pulmonary hypertension. 17. The right ventricular systolic pressure, as measured by Doppler, is 76.06mmHg. 18. Trace/mild (physiologic) pulmonic regurgitation. 19. The aortic root size is normal. 20. The inferior vena cava is dilated with no significant inspiratory collapse which is consistent es timated right atrial pressure of >15 mmHg. 21. There is no pericardial effusion. [employer] PROJECT MANAGER: Eliza Mariano RDCS
--- NOTE | 2019-09-03 15:03 | P.HPIM ---
History of Present Illness Patient is pleasant 69-year-old female came in with complaints of for severe short of breath has been going on for last 3-4 days patient is wheezing on exam is admitted for COPD exacerbation patient was treated started on systemic s teroids. Patient does have history of COPD obese may have sleep apnea as well can use to smoke chest x-ray did not show any pneumonia patient has mild pulmonary vascular congestion patient had normal ejection fraction the past takes about 20 mg of Lasix at home. Patient was started on IV Lasix as well. Patient is coughing unable to bring up anything Review of Systems REVIEW OF SYSTEMS: CONSTITUTIONAL: No fever, no malaise, no fatigue. HEENT: No recent visual problems or hearing problems. Denied any sore throat. CARDIOVASCULAR: No chest pain, orthopnea, PND, no palpitations, no syncope. PULMONARY: As mentioned in HPI GASTROINTESTINAL: No diarrhea, no nausea, no vomiting, no abdominal pain. NEUROLOGICAL: No headaches, no weakness, no numbness. HEMATOLOGICAL: Denies any bleeding or petechiae. GENITOURINARY: Denies any burning micturition, frequency, or urgency. MUSCULOSKELETAL/RHEUMATOLOGICAL: Denies any joint pain, swelling, or any muscle pain. ENDOCRINE: Denies any polyuria or polydipsia. The rest of the 14-point review of systems is negative. Past Medical History Past Medical History: Asthma, Chest Pain / Angina, COPD, Diabetes Mellitus, Hyperlipidemia, Hypertension, Osteoarthritis (OA), Respiratory Disorder, Skin Disorder, Thyroid Disorder Additional Past Medical History / Comment(s): Obesity (BMI 35) COPD, asthma, diabetes , depression, 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 The patient is also a smoker. The patient has chronic back pain. History of Any Multi-Drug Resistant Organisms: None Reported Past Surgical History: Appendectomy, Section, Cholecystectomy, Orthopedic Surgery, Tubal Ligation Additional Past Surgical History / Comment(s): LASER SX EJTHRO EYES FOR GLAUCOMA. RT KNEE ARTHROSCOPY. UNDERWENT PERCUTANEOUS NEPHROSTOLITHOTOMY Past Anesthesia/Blood Transfusion Reactions: No Reported Reaction Past Psychological History: Anxiety, Depression Additional Psychological History / Comment(s): pt stated maintained by meds. and lives with the and adult son. 2 adult children. 2 dogs and 6 cats in the home, they rescue. Ongoing tobacco use but denied alcohol use or recreational drug use. Does not work outside of the home. No experience. No travel history Smoking Status: Current every day smoker Past Alcohol Use History: None Reported Additional Past Alcohol Use History / Comment(s): Patient is an active smoker one pack per day and started smoking in 1968. She denies any marijuana, illicit drug use or alcohol use. She is and lives at home with her . There are 2 dogs and 2 cats in the home. No service and no travel history. Past Drug Use History: None Reported - Past Family History Mother Additional Family Medical History / Comment(s): emphysema, heart valve problems, in her slepp. Brother(s) Family Medical History: Cancer Additional Family Medical History / Comment(s): from oral cancer Father Brother(s) Family Medical History: Cancer Additional Family Medical History / Comment(s): heart disease Medications and Allergies Home Medications Medication Instructions Recorded Confirmed Type Aspirin 81 mg PO DAILY 02/06/14 09/03/19 History Zafirlukast [Accolate] 20 mg PO BID 02/06/14 09/03/19 History Albuterol Inhaler [Ventolin Hfa 2 puff INHALATION RT-Q4H PRN #0 09/07/15 0 Rx Inhaler] ARIPiprazole [Abilify] 5 mg PO HS 02/07/18 09/03/19 History Fluticasone Nasal [place] [Flonase 1 - 2 spray EA NOSTRIL DAILY 02/07/18 09/03/19 History Nasal [place]] metFORMIN HCL [Glucophage] 1,000 mg PO BID 02/07/18 09/03/19 History traZODone HCL 100 mg PO HS PRN 02/07/18 09/03/19 History Ipratropium-Albuterol Nebulize 3 ml INHALATION RT-QID #120 02/09/18 09/03/19 Rx [Duoneb 0.5 mg-3 mg/3 ml Soln] ampul.neb Escitalopram [Lexapro] 10 mg PO HS 09/08/18 09/03/19 History Atorvastatin [Lipitor] 40 mg PO DAILY #30 tab 09/10/18 09/03/19 Rx Metoprolol Tartrate [Lopressor] 25 mg PO TID #90 tab 09/10/18 09/03/19 Rx Cholecalciferol [Vitamin D3 (25 1,000 unit PO DAILY 09/03/19 09/03/19 History Mcg = 1000 Iu)] Furosemide [Lasix] 20 mg PO DAILY 09/03/19 09/03/19 History Levothyroxine Sodium [Synthroid] 200 mcg PO DAILY 09/03/19 09/03/19 History Lisinopril [Zestril] 10 mg PO DAILY 09/03/19 09/03/19 History Pantoprazole [Protonix] 40 mg PO DAILY 09/03/19 09/03/19 History Umeclidinium [place] [Incruse 1 puff INHALATION RT-DAILY 09/03/19 09/03/19 History Ellipta] oxyCODONE-APAP 7.5-325MG [Percocet 1 tab PO Q4H PRN 09/03/19 09/03/19 History 7.5-325 mg] Allergies Allergy/AdvReac Type Severity Reaction Status Date / Time adhesive Allergy Rash/Hives Verified 09/02/19 22:24 ciprofloxacin [From Cipro] Allergy Rash/Hives Verified 09/02/19 22:24 ciprofloxacin HCl Allergy Rash/Hives Verified 09/02/19 22:24 [From Cipro] latex Allergy Rash/Hives Verified 09/02/19 22:24 nitrofurantoin Allergy Rash/Hives Verified 09/02/19 22:24 [From Macrobid] nitrofurantoin Allergy Rash/Hives Verified 09/02/19 22:24 macrocrystalline [From Macrobid] Penicillins Allergy Rash/Hives Verified 09/02/19 22:24 propoxyphene HCl Allergy Rash/Hives Verified 09/02/19 22:24 [From Darvon] propoxyphene napsylate Allergy Unknown Verified 09/02/19 22:24 [From Darvocet-N] Physical Exam Vitals: Vital Signs Temp Pulse Pulse Resp BP BP Pulse Ox 09/03/19 11:53 76 09/03/19 11:41 76 09/03/19 07:36 68 09/03/19 07:20 64 09/03/19 07:00 20 09/03/19 05:05 98.0 F 73 22 180/75 97 09/03/19 04:39 18 09/03/19 01:55 98.3 F 80 18 142/80 91 L 09/03/19 01:02 97.8 F 74 21 169/72 95 09/03/19 00:00 79 20 156/71 94 L 09/02/19 23:30 75 18 163/66 99 09/02/19 23:29 73 09/02/19 23:12 80 09/02/19 23:10 73 16 163/66 98 09/02/19 23:00 71 16 158/57 97 09/02/19 22:20 98.4 F 85 18 164/65 92 L Intake and Output 09/02/19 09/03/19 09/03/19 22:59 06:59 14:59 Other: Voiding Method Bedside Commode # Voids 1 3 Weight 90.718 kg 90.718 kg 90.718 kg PHYSICAL EXAMINATION: GENERAL: The patient is alert and oriented x3, anticoagulation is in acute distress. Well developed, well nourished. HEENT: Pupils are round and equally reacting to light. EOMI. No scleral icterus. No conjunctival pallor. Normocephalic, atraumatic. No pharyngeal erythema. No thyromegaly. CARDIOVASCULAR: S1 and S2 present. No murmurs, rubs, or gallops. PULMONARY: Significant expiratory wheezing is in respiratory distress secondary shortness of breath using accessory muscles of breathing ABDOMEN: Soft, nontender, nondistended, normoactive bowel sounds. No palpable organomegaly. MUSCULOSKELETAL: No joint swelling or deformity. EXTREMITIES: No cyanosis, clubbing, does have pedal edema patient has Jaxson bandages wrapped NEUROLOGICAL: Gross neurological examination did not reveal any focal deficits. SKIN: No rashes. Results CBC & Chem 7: 09/02/19 22:47 09/02/19 22:47 Labs: Abnormal Lab Results - Last 24 Hours (Table) 09/02/19 09/02/19 09/02/19 Range/Units 22:47 22:47 22:47 Hgb 8.5 L (11.4-16.0) gm/dL Hct 29.8 L (34.0-46.0) % MCV 71.0 L (80.0-100.0) fL MCH 20.2 L (25.0-35.0) pg MCHC 28.5 L (31.0-37.0) g/dL RDW 17.6 H (11.5-15.5) % Lymphocytes # 0.7 L (1.0-4.8) k/uL INR 1.2 H (<1.2) Sodium 133 L (137-145) mmol/L Creatinine 0.50 L (0.52-1.04) mg/dL Glucose 232 H (74-99) mg/dL POC Glucose (mg/dL) (75-99) mg/dL Magnesium 1.3 L (1.6-2.3) mg/dL Alkaline Phosphatase 131 H (38-126) U/L Total Protein 6.0 L (6.3-8.2) g/dL Albumin 3.1 L (3.5-5.0) g/dL 09/03/19 09/03/19 Range/Units 07:06 11:09 Hgb (11.4-16.0) gm/dL Hct (34.0-46.0) % MCV (80.0-100.0) fL MCH (25.0-35.0) pg MCHC (31.0-37.0) g/dL RDW (11.5-15.5) % Lymphocytes # (1.0-4.8) k/uL INR (<1.2) Sodium (137-145) mmol/L Creatinine (0.52-1.04) mg/dL Glucose (74-99) mg/dL POC Glucose (mg/dL) 286 H 266 H (75-99) mg/dL Magnesium (1.6-2.3) mg/dL Alkaline Phosphatase (38-126) U/L Total Protein (6.3-8.2) g/dL Albumin (3.5-5.0) g/dL Assessment and Plan Plan: -Acute hypercapnic and hypoxic respiratory failure secondary to COPD exacerbation: Patient will be continued on systemic steroids and inhalational treatments. -Congestive heart failure chronic diastolic dysfunction with some mild acute exacerbation patient will be continued on IV Lasix. -Type 2 diabetes mellitus: Patient blood sugars are expected to go because of systemic steroids patient the will be treated with the as needed insulin for this -Hypertension -Hypothyroidism -Depression
[2019-09-03] MEDS: methylPREDNISolone SOD SUCCI 40 MG/ML 1 ML VIAL IV SCH (16:13)
--- NOTE | 2019-09-03 16:14 | P.CNPUL ---
History of Present Illness Consult date: 09/03/19 Reason for consult: dyspnea Chief complaint: Dyspnea, lower extremity edema History of present illness: 69-year-old female patient with past medical history of severe COPD, former smoker, chronic cor pulmonale, hypertension, hypothyroidism, morbid obesity, type 2 diabetes mellitus, congestive heart failure with diastolic dysfunction. She presented to the emergency department on 09/02/2019 for evaluation of worsening dyspnea, weakness, not feeling well, she denied any fever or chills, she does have a cough, with clear phlegm, she does have chills, but no complaints of chest pain, no purulent phlegm production. Patient also noted increased swelling in her lower extremities and around her abdomen. Chest x-ray was completed showing cardiomegaly and mild pulmonary congestion, no evidence of pleural effusions, no pulmonary consolidation. Labs were reviewed showing white blood cell count of 9.7, hemoglobin of 8.5, INR 1.2, electrolytes and renal profile were unremarkable, exception of sodium which was at 133, proBNP was 4640, troponin was less than 0.012. She has been started on IV diuretics, breathing treatments and IV steroids, she's had no fever or chills, she has significant lower extremity edema. Echocardiogram was completed showing EF of 60-65%, mild mitral regurg, moderate tricuspid regurg, severe pulmonary hypertension with right-sided pressures of 76 mmHg. She remains on 2 L of oxygen with a pulse ox of 97% Review of Systems All systems: negative Constitutional: Denies chills, Denies fever Eyes: denies blurred vision, denies pain Ears, nose, mouth and throat: Denies headache, Denies sore throat Cardiovascular: Reports dyspnea on exertion, Reports edema, Reports leg edema, Denies chest pain, Denies shortness of breath Respiratory: Reports dyspnea, Denies cough Gastrointestinal: Denies abdominal pain, Denies diarrhea, Denies nausea, Denies vomiting Genitourinary: Denies dysuria, Denies hematuria Musculoskeletal: Denies myalgias Integumentary: Denies pruritus, Denies rash Neurological: Denies numbness, Denies weakness Psychiatric: Denies anxiety, Denies depression Endocrine: Denies fatigue, Denies weight change Past Medical History Past Medical History: Asthma, Chest Pain / Angina, COPD, Diabetes Mellitus, Hyperlipidemia, Hypertension, Osteoarthritis (OA), Respiratory Disorder, Skin Disorder, Thyroid Disorder Additional Past Medical History / Comment(s): Obesity (BMI 35) COPD, asthma, diabetes , depression, 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 The patient is also a smoker. The patient has chronic back pain. History of Any Multi-Drug Resistant Organisms: None Reported Past Surgical History: Appendectomy, Section, Cholecystectomy, Orthopedic Surgery, Tubal Ligation Additional Past Surgical History / Comment(s): LASER SX JETHRO EYES FOR GLAUCOMA. RT KNEE ARTHROSCOPY. UNDERWENT PERCUTANEOUS NEPHROSTOLITHOTOMY Past Anesthesia/Blood Transfusion Reactions: No Reported Reaction Past Psychological History: Anxiety, Depression Additional Psychological History / Comment(s): pt stated maintained by [employer]. and lives with the and adult son. 2 adult children. 2 dogs and 6 cats in the home, they rescue. Ongoing tobacco use but denied alcohol use or recreational drug use. Does not work outside of the home. No experience. No travel history Smoking Status: Current every day smoker Past Alcohol Use History: None Reported Additional Past Alcohol Use History / Comment(s): Patient is an active smoker one pack per day and started smoking in 1968. She denies any marijuana, illicit drug use or alcohol use. She is and lives at home with her . There are 2 dogs and 2 cats in the home. No service and no travel history. Past Drug Use History: None Reported - Past Family History Mother Additional Family Medical History / Comment(s): emphysema, heart valve problems, in her slepp. Brother(s) Family Medical History: Cancer Additional Family Medical History / Comment(s): from oral cancer Father Brother(s) Family Medical History: Cancer Additional Family Medical History / Comment(s): heart disease Medications and Allergies Home Medications Medication Instructions Recorded Confirmed Type Aspirin 81 mg PO DAILY 02/06/14 09/03/19 History Zafirlukast [Accolate] 20 mg PO BID 02/06/14 09/03/19 History Albuterol Inhaler [Ventolin Hfa 2 puff INHALATION RT-Q4H PRN #0 09/07/15 09/03/19 Rx Inhaler] ARIPiprazole [Abilify] 5 mg PO HS 02/07/18 09/03/19 History Fluticasone Nasal [place] [Flonase 1 - 2 spray EA NOSTRIL DAILY 02/07/18 09/03/19 History Nasal [place]] metFORMIN HCL [Glucophage] 1,000 mg PO BID 02/07/18 09/03/19 History traZODone HCL 100 mg PO HS PRN 02/07/18 09/03/19 History Ipratropium-Albuterol Nebulize 3 ml INHALATION RT-QID #120 02/09/18 09/03/19 Rx [Duoneb 0.5 mg-3 mg/3 ml Soln] ampul.neb Escitalopram [Lexapro] 10 mg PO HS 09/08/18 09/03/19 History Atorvastatin [Lipitor] 40 mg PO DAILY #30 tab 09/10/18 09/03/19 Rx Metoprolol Tartrate [Lopressor] 25 mg PO TID #90 tab 09/10/18 09/03/19 Rx Cholecalciferol [Vitamin D3 (25 1,000 unit PO DAILY 09/03/19 09/03/19 History Mcg = 1000 Iu)] Furosemide [Lasix] 20 mg PO DAILY 09/03/19 09/03/19 History Levothyroxine Sodium [Synthroid] 200 mcg PO DAILY 09/03/19 09/03/19 History Lisinopril [Zestril] 10 mg PO DAILY 09/03/19 09/03/19 History Pantoprazole [Protonix] 40 mg PO DAILY 09/03/19 09/03/19 History Umeclidinium [place] [Incruse 1 puff INHALATION RT-DAILY 09/03/19 09/03/19 History Ellipta] oxyCODONE-APAP 7.5-325MG [Percocet 1 tab PO Q4H PRN 09/03/19 09/03/19 History 7.5-325 mg] Allergies Allergy/AdvReac Type Severity Reaction Status Date / Time adhesive Allergy Rash/Hives Verified 09/02/19 22:24 ciprofloxacin [From Cipro] Allergy Rash/Hives Verified 09/02/19 22:24 ciprofloxacin HCl Allergy Rash/Hives Verified 09/02/19 22:24 [From Cipro] latex Allergy Rash/Hives Verified 09/02/19 22:24 nitrofurantoin Allergy Rash/Hives Verified 09/02/19 22:24 [From Macrobid] nitrofurantoin Allergy Rash/Hives Verified 09/02/19 22:24 macrocrystalline [From Macrobid] Penicillins Allergy Rash/Hives Verified 09/02/19 22:24 propoxyphene HCl Allergy Rash/Hives Verified 09/02/19 22:24 [From Darvon] propoxyphene napsylate Allergy Unknown Verified 09/02/19 22:24 [From Darvocet-N] Physical Exam Vitals: Vital Signs Temp Pulse Pulse Resp BP BP Pulse Ox 09/03/19 15:35 76 09/03/19 15:23 75 09/03/19 11:53 76 09/03/19 11:41 76 09/03/19 07:36 68 09/03/19 07:20 64 09/03/19 07:00 20 09/03/19 05:05 98.0 F 73 22 180/75 97 09/03/19 04:39 18 09/03/19 01:55 98.3 F 80 18 142/80 91 L 09/03/19 01:02 97.8 F 74 21 169/72 95 09/03/19 00:00 79 20 156/71 94 L 09/02/19 23:30 75 18 163/66 99 09/02/19 23:29 73 09/02/19 23:12 80 09/02/19 23:10 73 16 163/66 98 09/02/19 23:00 71 16 158/57 97 09/02/19 22:20 98.4 F 85 18 164/65 92 L Intake and Output 09/03/19 09/03/19 09/03/19 06:59 14:59 22:59 Other: Voiding Method Bedside Commode Bedside Commode # Voids 1 3 Weight 90.718 kg 90.718 kg GENERAL EXAM: Alert, very pleasant, 69-year-old morbidly obese white female, 2 L of oxygen with a pulse of 97% comfortable in no apparent distress. HEAD: Normocephalic/atraumatic. EYES: Normal reaction of pupils, equal size. Conjunctiva pink, sclera white. NOSE: Clear with pink turbinates. THROAT: No erythema or exudates. NECK: No masses, no JVD, no thyroid enlargement, no adenopathy. CHEST: No chest wall deformity. Symmetrical expansion. LUNGS: Equal air entry with basilar crackles and wheezes CVS: Regular rate and rhythm, normal S1 and S2, no gallops, no murmurs, no rubs ABDOMEN: Soft, nontender. No hepatosplenomegaly, normal bowel sounds, no guarding or rigidity. EXTREMITIES: No clubbing, 1+ lower extremity edema, no cyanosis, 2+ pulses and upper and lower extremities. MUSCULOSKELETAL: Muscle strength and tone normal. SPINE: No scoliosis or deformity SKIN: No rashes CENTRAL NERVOUS SYSTEM: Alert and oriented -3. No focal deficits, tone is normal in all 4 extremities. PSYCHIATRIC: Alert and oriented -3. Appropriate affect. Intact judgment and insight. Results - Laboratory Findings CBC and BMP: 09/02/19 22:47 09/02/19 22:47 PT/INR, D-dimer PT 11.8 sec (9.0-12.0) 09/02/19 22:47 INR 1.2 (<1.2) H 09/02/19 22:47 Abnormal lab findings: Abnormal Labs 09/02/19 09/02/19 09/02/19 22:47 22:47 22:47 Hgb 8.5 L Hct 29.8 L MCV 71.0 L MCH 20.2 L MCHC 28.5 L RDW 17.6 H Lymphocytes # 0.7 L INR 1.2 H Sodium 133 L Creatinine 0.50 L Glucose 232 H POC Glucose (mg/dL) Magnesium 1.3 L Alkaline Phosphatase 131 H Total Protein 6.0 L Albumin 3.1 L 09/03/19 09/03/19 07:06 11:09 Hgb Hct MCV MCH MCHC RDW Lymphocytes # INR Sodium Creatinine Glucose POC Glucose (mg/dL) 286 H 266 H Magnesium Alkaline Phosphatase Total Protein Albumin - Diagnostic Findings Chest x-ray: report reviewed, image reviewed Assessment and Plan Plan: Assessment: #1. Acute dyspnea related to acute exacerbation of diastolic congestive heart failure #2. Acute exacerbation of chronic obstructive pulmonary disease #3. Chronic obstructive pulmonary disease and outpatient PFT showed FEV1 of 42% of predicted and a diffusion capacity of 45% of predicted consistent severe obstructive airway disease #4. Hypothyroidism #5. Severe pulmonary hypertension #6. Chronic cellulitis of left lower extremity #7. Osteoarthritis #8. Type 2 diabetes mellitus #9. Former smoker #10. Chronic back pain #11. Nephrolithiasis Plan: Continue IV diuretics, continue IV Solu-Medrol, bronchodilators. No evidence of pulmonary infection, chest x-ray was reviewed and cardiomegaly and mild pulmonary congestion. Echocardiogram was noted. We will continue to follow I performed a history & physical examination of the patient and discussed their management with my nurse practitioner, Taylor Sheriff. I reviewed the nurse practitioner's note and agree with the documented findings and plan of care. Lung sounds are positive for basilar crackles, and wheezes. The findings and the impression was discussed with the patient. I attest to the documentation by the nurse practitioner. Time with Patient: Greater than 30
[2019-09-03 17:07] LABS: Glucose,Whole Blood 300 mg/dL (75-99)
[2019-09-03] MEDS ORDERED: MINERAL OIL-WHITE PETROLATUM 120 GM JAR TOPICAL PRN (17:20)
[2019-09-03] MEDS: traZODone HCL 100 MG TAB PO PRN (19:48)
[2019-09-03 20:18] LABS: Glucose,Whole Blood 268 mg/dL (75-99)
[2019-09-03] MEDS ORDERED: MONTELUKAST 10 MG TAB PO SCH (21:00)
[2019-09-03] MEDS: MONTELUKAST 10 MG TAB PO SCH (21:21)
[2019-09-04] MEDS: FUROSEMIDE 10 MG/ML 4 ML VIAL IV SCH ×4 (00:53→22:45)
[2019-09-04] MEDS: methylPREDNISolone SOD SUCCI 40 MG/ML 1 ML VIAL IV SCH ×4 (00:54→22:47)
[2019-09-04] MEDS: LEVOTHYROXINE 100 MCG TAB PO SCH (06:05)
[2019-09-04 07:20] LABS: Glucose,Whole Blood 257 mg/dL (75-99)
--- NOTE | 2019-09-04 07:30 | XR ---
EXAMINATION TYPE: XR chest 2V DATE OF EXAM: 09/04/2019 COMPARISON: 09/02/2019 HISTORY: Shortness of breath with history of COPD TECHNIQUE: Frontal and lateral views of the chest are obtained. FINDINGS: Moderate interstitial pulmonary edema has increased from the prior. Cardiomediastinal silh ouette is enlarged. No sizable pleural effusion or pneumothorax. No focal consolidation. Generalized osseous demineralization. Pulmonary hyperinflation of underlying COPD. IMPRESSION: Increasing fluid overload with now moderate interstitial pulmonary edema, likely on the basis of decompensated congestive heart failure.
[2019-09-04] MEDS ORDERED: IPRATROPIUM 0.5 MG/2.5 ML NEBU INHALATION SCH (08:00)
[2019-09-04] MEDS: ATORVASTATIN 40 MG TAB PO SCH (08:06)
[2019-09-04] MEDS: PANTOPRAZOLE 40 MG TABLET PO SCH (08:07)
[2019-09-04] MEDS: INSULIN ASPART (NovoLOG) 100 UNIT/ML VIAL SQ SCH ×4 (08:07→20:37)
[2019-09-04] MEDS: METOPROLOL TARTRATE 25 MG TAB PO SCH ×3 (08:07→19:47)
[2019-09-04] MEDS: LISINOPRIL 10 MG TAB PO SCH (08:07)
[2019-09-04] MEDS: SPIRONOLACTONE 25 MG TAB PO SCH (08:08)
[2019-09-04] MEDS: ASPIRIN 81 MG PO SCH (08:08)
[2019-09-04] MEDS: ENOXAPARIN 40 MG/0.4 ML SYRINGE SQ SCH (08:08)
[2019-09-04] MEDS: IPRATROPIUM-ALBUTEROL 3 ML NEB INHALATION SCH ×4 (08:23→19:57)
[2019-09-04 08:30] LABS: African American GFR (CKD) >90 (>60 ml/min/1.73 sqM); Anion Gap 7 mmol/L; Blood Urea Nitrogen 24 mg/dL (7-17); Calcium 8.6 mg/dL (8.4-10.2); Carbon Dioxide 31 mmol/L (22-30); Chloride 98 mmol/L (98-107); Glucose 232 mg/dL (74-99); Non-African American GFR(CKD) >90 (>60 ml/min/1.73 sqM); Potassium 4.6 mmol/L (3.5-5.1); Sodium 136 mmol/L (137-145)
--- NOTE | 2019-09-04 11:58 | P.PN ---
Subjective Progress Note Date: 09/04/19 Principal diagnosis: Dyspnea, lower extremity edema 69-year-old female patient with past medical history of severe COPD, former smoker, chronic cor pulmonale, hypertension, hypothyroidism, morbid obesity, type 2 diabetes mellitus, congestive heart failure with diastolic dysfunction. She presented to the emergency department on 09/02/2019 for evaluation of worsening dyspnea, weakness, not feeling well, she denied any fever or chills, she does have a cough, with clear phlegm, she does have chills, but no complaints of chest pain, no purulent phlegm production. Patient also noted increased swelling in her lower extremities and around her abdomen. Chest x-ray was completed showing cardiomegaly and mild pulmonary congestion, no evidence of pleural effusions, no pulmonary consolidation. Labs were reviewed showing white blood cell count of 9.7, hemoglobin of 8.5, INR 1.2, electrolytes and renal profile were unremarkable, exception of sodium which was at 133, proBNP was 4640, troponin was less than 0.012. She has been started on IV diuretics, breathing treatments and IV steroids, she's had no fever or chills, she has significant lower extremity edema. Echocardiogram was completed showing EF of 60-65%, mild mitral regurg, moderate tricuspid regurg, severe pulmonary hypertension with right-sided pressures of 76 mmHg. She remains on 2 L of oxygen with a pulse ox of 97% On 09/04/2019 patient seen in follow-up on the general medical floor, she still required bronchospastic, however lower extremity edema is improving, and she is on diuretics, she is in negative fluid balance however follow-up chest x-ray today still shows moderate interstitial pulmonary edema which seems to be slightly increased from yesterday's exam. SHe continues on IV steroids, today's labs have been reviewed, showing sodium of 136, potassium is 4.6, CO2 31, B1 is 24 creatinine 0.56 Objective - Vital Signs Vital signs: Vital Signs Temp 98.4 F 09/04/19 05:00 Pulse 59 L 09/04/19 05:00 Resp 18 09/04/19 08:00 BP 149/73 09/04/19 05:00 Pulse Ox 96 09/04/19 05:00 Intake & Output 09/03/19 09/04/19 09/04/19 18:59 06:59 18:59 Intake Total 400 Output Total 400 Balance 400 -400 Weight 90.718 kg 90.5 kg Intake: Oral 400 Output: Urine 400 Other: Voiding Method Bedside Commode Bedside Commode Bedside Commode # Voids 3 3 1 - Exam GENERAL EXAM: Alert, very pleasant, 69-year-old morbidly obese white female, 2 L of oxygen with a pulse of 97% comfortable in no apparent distress. HEAD: Normocephalic/atraumatic. EYES: Normal reaction of pupils, equal size. Conjunctiva pink, sclera white. NOSE: Clear with pink turbinates. THROAT: No erythema or exudates. NECK: No masses, no JVD, no thyroid enlargement, no adenopathy. CHEST: No chest wall deformity. Symmetrical expansion. LUNGS: Equal air entry with basilar crackles and wheezes CVS: Regular rate and rhythm, normal S1 and S2, no gallops, no murmurs, no rubs ABDOMEN: Soft, nontender. No hepatosplenomegaly, normal bowel sounds, no guarding or rigidity. EXTREMITIES: No clubbing, 1+ lower extremity edema, no cyanosis, 2+ pulses and upper and lower extremities. MUSCULOSKELETAL: Muscle strength and tone normal. SPINE: No scoliosis or deformity SKIN: No rashes CENTRAL NERVOUS SYSTEM: Alert and oriented -3. No focal deficits, tone is normal in all 4 extremities. PSYCHIATRIC: Alert and oriented -3. Appropriate affect. Intact judgment and insight. - Labs CBC & Chem 7: 09/02/19 22:47 09/04/19 07:50 Labs: Abnormal Lab Results - Last 24 Hours (Table) 09/03/19 09/03/19 09/04/19 Range/Units 17:05 20:11 07:17 Sodium (137-145) mmol/L Carbon Dioxide (22-30) mmol/L BUN (7-17) mg/dL Glucose (74-99) mg/dL POC Glucose (mg/dL) 300 H 268 H 257 H (75-99) mg/dL 09/04/19 Range/Units 07:50 Sodium 136 L (137-145) mmol/L Carbon Dioxide 31 H (22-30) mmol/L BUN 24 H (7-17) mg/dL Glucose 232 H (74-99) mg/dL POC Glucose (mg/dL) (75-99) mg/dL Assessment and Plan Plan: Assessment: #1. Acute dyspnea related to acute exacerbation of diastolic congestive heart failure #2. Acute exacerbation of chronic obstructive pulmonary disease #3. Chronic obstructive pulmonary disease and outpatient PFT showed FEV1 of 42% of predicted and a diffusion capacity of 45% of predicted consistent severe obstructive airway disease #4. Hypothyroidism #5. Severe pulmonary hypertension #6. Chronic cellulitis of left lower extremity #7. Osteoarthritis #8. Type 2 diabetes mellitus #9. Former smoker #10. Chronic back pain #11. Nephrolithiasis Plan: Continue current medical treatment, continue diuretics, today's follow-up chest x-ray has been reviewed showing interstitial pulmonary edema, lower extremity edema is improving, however patient is still quite bronchospastic, will continue IV steroids, same dose diuretics, breathing treatments, continue to follow I performed a history & physical examination of the patient and discussed their management with my nurse practitioner, Taylor Sheriff. I reviewed the nurse practitioner's note and agree with the documented findings and plan of care. Lung sounds are positive for basilar crackles, and wheezes. The findings and the impression was discussed with the patient. I attest to the documentation by the nurse practitioner. Time with Patient: Less than 30
[2019-09-04] MEDS ORDERED: SPIRONOLACTONE 25 MG TAB PO STA (12:00)
--- NOTE | 2019-09-04 12:03 | P.PN ---
Subjective HISTORY OF PRESENTING ILLNESS This is a pleasant 69-year-old female past medical history significant for COPD, diabetes mellitus, hypertension, dyslipidemia and morbid obesity. She also unfortunately continues to smoke. She denies prior history of coronary artery disease and does not follow with a business insurance agent for any reason. She is s een and examined laying flat resting comfortably in bed. She states overall she feels much better since admission. However, chest xray obtained this morning reveals increasing fluid overload with moderate interstitial pulmonary edema. Blood pressure 149/73 heart rate 59 afebrile maintaining oxygen saturation on nasal cannula. Laboratory data reviewed, sodium 136, potassium 4.6, creatinine 0.56. Inaccurate documentation of intake and output. Currently maintained on aspirin 81 mg daily, atorvastatin 40 mg daily, lasix 40 mg IV TID, lisinopril 10 mg daily, lopressor 25 mg TID and aldactone 25 mg daily. Echocardiogram obtained reveals preserved LV systolic function with ejection fraction 60-65%, mild aortic stenosis with a mean gradient of 13 mmHg, mild mitral regurgitation, moderate tricuspid regurgitation and severe pulmonary hypertension with an RVSP of 76 mmHg. PHYSICAL EXAMINATION CONSTITUTIONAL: No apparent distress. HEENT: Head is normocephalic. Pupils are equal, round. Sclerae anicteric. Mucous membranes of the mouth are moist. No JVD. No carotid bruit. CHEST EXAMINATION: Expiratory wheezes, bibasilar rales, no rhonchi. No chest wall tenderness is noted on palpation or with deep breathing. HEART EXAMINATION: Regular rate and rhythm. S1, S2 heard. No murmurs, gallops or rub. EXTREMITIES: 2+ peripheral pulses, no lower extremity edema and no calf tenderness. ASSESSMENT Shortness of breath, multi-factorial secondary to COPD and diastolic heart failure. Acute on chronic diastolic heart failure secondary to cor pulmonale Pulmonary hypertension Valvular heart disease Anemia COPD Hypomagnesemia Hypertension Dyslipidemia PLAN Check a repeat magnesium level. Clinically she seems to be improving, however chest xray appears worse from yesterday. Continue IV diuresis. Increase aldactone to 50 mg daily, give additional dose of 25 mg now. Follow renal function and electrolytes in the morning. Further recommendations to follow based on clinicaly course. Nurse Practitioner note has been reviewed, I agree with a documented findings and plan of care. Patient was seen and examined. Objective - Vital Signs Vital signs: Vital Signs Temp 98.4 F 09/04/19 05:00 Pulse 59 L 09/04/19 05:00 Resp 18 09/04/19 08:00 BP 149/73 09/04/19 05:00 Pulse Ox 96 09/04/19 05:00 Intake & Output 09/03/19 09/04/19 09/04/19 18:59 06:59 18:59 Intake Total 400 Output Total 400 Balance 400 -400 Weight 90.718 kg 90.5 kg Intake: Oral 400 Output: Urine 400 Other: Voiding Method Bedside Commode Bedside Commode Bedside Commode # Voids 3 3 1 - Labs CBC & Chem 7: 09/02/19 22:47 09/04/19 07:50 Labs: Abnormal Lab Results - Last 24 Hours (Table) 09/03/19 09/03/19 09/04/19 Range/Units 17:05 20:11 07:17 Sodium (137-145) mmol/L Carbon Dioxide (22-30) mmol/L BUN (7-17) mg/dL Glucose (74-99) mg/dL POC Glucose (mg/dL) 300 H 268 H 257 H (75-99) mg/dL 09/04/19 Range/Units 07:50 Sodium 136 L (137-145) mmol/L Carbon Dioxide 31 H (22-30) mmol/L BUN 24 H (7-17) mg/dL Glucose 232 H (74-99) mg/dL POC Glucose (mg/dL) (75-99) mg/dL
[2019-09-04 12:04] LABS: Glucose,Whole Blood 239 mg/dL (75-99)
[2019-09-04] MEDS: MAGNESIUM SULFATE-D5W PMX 1 GM in DEXTROSE/WATER 1 100ML.BAG IVPB SCH ×3 (12:37→16:17)
--- NOTE | 2019-09-04 13:39 | P.PN ---
Subjective Progress Note Date: 09/04/19 Principal diagnosis: Patient is pleasant 69-year-old female came in with complaints of for severe short of breath has been going on for last 3-4 days patient is wheezing on exam is admitted for COPD exacerbation patient was treated started on systemic steroids. Patient does have history of COPD obese may have sleep apnea as well can use to smoke chest x-ray did not show any pneumonia patient has mild pulmonary vascular congestion patient had normal ejection fraction the past takes about 20 mg of Lasix at home. Patient was started on IV Lasix as well. Patient is coughing unable to bring up anything. 09/04/2019 Patient is lying in bed and appears to be in no acute distress. Patient states that she would like to go home today and feels better. Patient continues to [place] ve extensive wheezing and becomes severely short of breath with any exertion. Discussed with the patient at length about staying as her clinical presentation has not improved much from yesterday. Patient will continue on IV steroids and bronchodilators at this time. Today's chest x-ray shows increasing fluid overload with now moderate interstitial pulmonary edema. Magnesium was replaced yesterday and repeat magnesium is 1.9 today. Objective - Vital Signs Vital signs: Vital Signs Temp 98.4 F 09/04/19 05:00 Pulse 78 09/04/19 12:27 Resp 18 09/04/19 08:00 BP 149/73 09/04/19 05:00 Pulse Ox 96 09/04/19 05:00 Intake & Output 09/03/19 09/04/19 09/04/19 18:59 06:59 18:59 Intake Total 400 Output Total 1000 Balance 400 -1000 Weight 90.718 kg 90.5 kg Intake: Oral 400 Output: Urine 1000 Other: Voiding Method Bedside Commode Bedside Commode Bedside Commode # Voids 3 3 1 - Exam GENERAL: The patient is alert and oriented x3, appears to be in no acute distress this morning. Well developed, well nourished. HEENT: Pupils are round and equally reacting to light. EOMI. No scleral icterus. No conjunctival pallor. Normocephalic, atraumatic. No pharyngeal erythema. No thyromegaly. CARDIOVASCULAR: S1 and S2 present. No murmurs, rubs, or gallops. PULMONARY: Diminished breath sounds at the bases with significant expiratory wheezing noted on exam ABDOMEN: Soft, obese, nontender, nondistended, normoactive bowel sounds. No palpable organomegaly. MUSCULOSKELETAL: No joint swelling or deformity. EXTREMITIES: No cyanosis, clubbing, does have pedal edema patient has Jaxson bandages wrapped NEUROLOGICAL: Gross neurological examination did not reveal any focal deficits. SKIN: No rashes. - Labs CBC & Chem 7: 09/02/19 22:47 09/04/19 07:50 Labs: Abnormal Lab Results - Last 24 Hours (Table) 09/03/19 09/03/19 09/04/19 Range/Units 17:05 20:11 07:17 Sodium (137-145) mmol/L Carbon Dioxide (22-30) mmol/L BUN (7-17) mg/dL Glucose (74-99) mg/dL POC Glucose (mg/dL) 300 H 268 H 257 H (75-99) mg/dL 09/04/19 09/04/19 Range/Units 07:50 12:02 Sodium 136 L (137-145) mmol/L Carbon Dioxide 31 H (22-30) mmol/L BUN 24 H (7-17) mg/dL Glucose 232 H (74-99) mg/dL POC Glucose (mg/dL) 239 H (75-99) mg/dL Assessment and Plan Assessment: -Acute hypercapnic and hypoxic respiratory failure secondary to COPD exacerbation: Patient will be continued on systemic steroids and inhalational treatments. -Congestive heart failure chronic diastolic dysfunction with some mild acute exacerbation patient will be continued on IV Lasix. -Type 2 diabetes mellitus: Patient blood sugars are expected to go up because of systemic steroids patient the will be treated with the as needed insulin for this -Hypertension -Hypothyroidism -Depression Plan: Continue current medications, management, and symptomatic treatment. Will continue with IV Lasix along with IV steroids and breathing inhalation treatments at this time. Patient would like to go home today and discussed with the patient at length about staying for treatment as she has not clinically improved much from yesterday. Chest x-ray today shows worsening with some fluid overload. Will continue to monitor closely. Will repeat a.m. labs. Further recommendations to follow. Possible discharge in 24-48 hours.
[2019-09-04] MEDS: ALPRAZolam 0.25 MG TAB PO PRN ×2 (14:32→22:47)
[2019-09-04 17:09] LABS: Glucose,Whole Blood 280 mg/dL (75-99)
[2019-09-04 18:37] LABS: Hemoglobin A1C 7.7 % (4.0-6.0)
[2019-09-04] MEDS: MONTELUKAST 10 MG TAB PO SCH (19:47)
[2019-09-04] MEDS: traZODone HCL 100 MG TAB PO PRN (19:47)
[2019-09-04] MEDS: ESCITALOPRAM 10 MG TAB PO SCH (19:47)
[2019-09-04] MEDS: ARIPiprazole 5 MG TAB PO SCH (19:47)
[2019-09-04 20:23] LABS: Glucose,Whole Blood 273 mg/dL (75-99)
[2019-09-05 05:04] VITALS: RESP 16
[2019-09-05] MEDS: LEVOTHYROXINE 100 MCG TAB PO SCH (05:39)
[2019-09-05 07:07] LABS: Glucose,Whole Blood 318 mg/dL (75-99)
[2019-09-05] MEDS: INSULIN ASPART (NovoLOG) 100 UNIT/ML VIAL SQ SCH ×2 (07:22→12:25)
[2019-09-05] MEDS: PANTOPRAZOLE 40 MG TABLET PO SCH (08:07)
[2019-09-05] MEDS: LISINOPRIL 10 MG TAB PO SCH (08:07)
[2019-09-05] MEDS: METOPROLOL TARTRATE 25 MG TAB PO SCH ×2 (08:07→15:08)
[2019-09-05] MEDS: ATORVASTATIN 40 MG TAB PO SCH (08:07)
[2019-09-05] MEDS: ASPIRIN 81 MG PO SCH (08:07)
[2019-09-05] MEDS: ENOXAPARIN 40 MG/0.4 ML SYRINGE SQ SCH (08:08)
[2019-09-05] MEDS: methylPREDNISolone SOD SUCCI 40 MG/ML 1 ML VIAL IV SCH ×2 (08:08→15:08)
[2019-09-05] MEDS: FUROSEMIDE 10 MG/ML 4 ML VIAL IV SCH ×2 (08:08→15:08)
[2019-09-05] MEDS: IPRATROPIUM-ALBUTEROL 3 ML NEB INHALATION SCH ×2 (08:09→12:43)
[2019-09-05 08:40] LABS: African American GFR (CKD) >90 (>60 ml/min/1.73 sqM); Anion Gap 8 mmol/L; Blood Urea Nitrogen 30 mg/dL (7-17); Calcium 8.6 mg/dL (8.4-10.2); Carbon Dioxide 31 mmol/L (22-30); Chloride 97 mmol/L (98-107); Glucose 297 mg/dL (74-99); Non-African American GFR(CKD) >90 (>60 ml/min/1.73 sqM); Potassium 4.6 mmol/L (3.5-5.1); Sodium 136 mmol/L (137-145)
[2019-09-05] MEDS ORDERED: SPIRONOLACTONE 25 MG TAB PO SCH (09:00)
[2019-09-05] MEDS ORDERED: amLODIPine 5 MG TAB PO SCH (10:00)
--- NOTE | 2019-09-05 11:52 | P.PN ---
Subjective Progress Note Date: 09/05/19 Principal diagnosis: Acute exacerbation diastolic congestive heart failure 69-year-old female patient with past medical history of severe COPD, former smoker, chronic cor pulmonale, hypertension, hypothyroidism, morbid obesity, type 2 diabetes mellitus, congestive heart failure with diastolic dysfunction. She presented to the emergency department on 09/02/2019 for evaluation of worsening dyspnea, weakness, not feeling well, she denied any fever or chills, she does have a cough, with clear phlegm, she does have chills, but no complaints of chest pain, no purulent phlegm production. Patient also noted increased swelling in her lower extremities and around her abdomen. Chest x-ray was completed showing cardiomegaly and mild pulmonary congestion, no evidence of pleural effusions, no pulmonary consolidation. Labs were reviewed showing white blood cell count of 9.7, hemoglobin of 8.5, INR 1.2, electrolytes and renal profile were unremarkable, exception of sodium which was at 133, proBNP was 4640, troponin was less than 0.012. She has been started on IV diuretics, breathing treatments and IV steroids, she's had no fever or chills, she has significant lower extremity edema. Echocardiogram was completed showing EF of 60-65%, mild mitral regurg, moderate tricuspid regurg, severe pulmonary hypertension with right-sided pressures of 76 mmHg. She remains on 2 L of oxygen with a pulse ox of 97% On 09/04/2019 patient seen in follow-up on the general medical floor, she still required bronchospastic, however lower extremity edema is improving, and she is on diuretics, she is in negative fluid balance however follow-up chest x-ray today still shows moderate interstitial pulmonary edema which seems to be slightly increased from yesterday's exam. SHe continues on IV steroids, today's labs have been reviewed, showing sodium of 136, potassium is 4.6, CO2 31, B1 is 24 creatinine 0.56 Patient is seen today 09/05/2019 in follow-up on the regular medical floor. She is currently sitting up at the bedside. Awake and alert in no acute distress. Her IV diuretics were increased yesterday to 40 mg IV every 8 hours. She has diuresed well. She is feeling much better. Less edema. Sodium 136. Potassium 4.6. Creatinine 0.57. She's afebrile. Maintaining good O2 saturations in the mid 90s on 2 L/m per nasal cannula. Objective - Vital Signs Vital signs: Vital Signs Temp 98.3 F 09/05/19 05:03 Pulse 66 09/05/19 08:21 Resp 16 09/05/19 08:00 BP 177/70 09/05/19 05:03 Pulse Ox 96 09/05/19 05:03 Intake & Output 09/04/19 09/05/19 09/05/19 18:59 06:59 18:59 Intake Total 550 Output Total 1000 Balance -450 Weight 93.5 kg Intake: Oral 550 Output: Urine 1000 Other: Voiding Method Bedside Commode Bedside Commode Bedside Commode # Voids 2 - Exam GENERAL EXAM: Alert, very pleasant, 69-year-old obese female patient, 2 L of oxygen with a pulse of 96% comfortable in no apparent distress. HEAD: Normocephalic/atraumatic. EYES: Normal reaction of pupils, equal size. Conjunctiva pink, sclera white. NOSE: Clear with pink turbinates. THROAT: No erythema or exudates. NECK: No masses, no JVD, no thyroid enlargement, no adenopathy. CHEST: No chest wall deformity. Symmetrical expansion. LUNGS: Equal air entry clear bilaterally. CVS: Regular rate and rhythm, normal S1 and S2, no gallops, no murmurs, no rubs ABDOMEN: Soft, nontender. No hepatosplenomegaly, normal bowel sounds, no guarding or rigidity. EXTREMITIES: No clubbing, 1+ lower extremity edema, no cyanosis, 2+ pulses and upper and lower extremities. MUSCULOSKELETAL: Muscle strength and tone normal. SPINE: No scoliosis or deformity SKIN: No rashes CENTRAL NERVOUS SYSTEM: No focal deficits, tone is normal in all 4 extremities. PSYCHIATRIC: Alert and oriented -3. Appropriate affect. Intact judgment and insight. - Labs CBC & Chem 7: 09/02/19 22:47 09/05/19 07:39 Labs: Abnormal Lab Results - Last 24 Hours (Table) 09/04/19 09/04/19 09/04/19 Range/Units 07:50 12:02 17:07 Sodium (137-145) mmol/L Chloride (98-107) mmol/L Carbon Dioxide (22-30) mmol/L BUN (7-17) mg/dL Glucose (74-99) mg/dL POC Glucose (mg/dL) 239 H 280 H (75-99) mg/dL Hemoglobin A1c 7.7 H (4.0-6.0) % 09/04/19 09/05/19 09/05/19 Range/Units 20:07 07:04 07:39 Sodium 136 L (137-145) mmol/L Chloride 97 L (98-107) mmol/L Carbon Dioxide 31 H (22-30) mmol/L BUN 30 H (7-17) mg/dL Glucose 297 H (74-99) mg/dL POC Glucose (mg/dL) 273 H 318 H (75-99) mg/dL Hemoglobin A1c (4.0-6.0) % Assessment and Plan Assessment: #1. Acute exacerbation of diastolic congestive heart failure, preserved LV function with ejection fraction 60-65% #2. Acute exacerbation of chronic obstructive pulmonary disease #3. Chronic obstructive pulmonary disease and outpatient PFT showed FEV1 of 42% of predicted and a diffusion capacity of 45% of predicted consistent severe obstructive airway disease #4. Hypothyroidism #5. Severe pulmonary hypertension #6. Chronic cellulitis of left lower extremity #7. Osteoarthritis #8. Type 2 diabetes mellitus #9. Former smoker #10. Chronic back pain #11. Nephrolithiasis Plan: The patient was seen and evaluated by Dr. Silveira She is cleared for discharge from the pulmonary standpoint Continue home pulmonary medications Continue diuretics Follow-up in the office in 1-2 weeks' time or call sooner with any recurrence of symptoms or other questions or concerns I, the cosigning physician, performed a history & physical examination of the patient. Lungs sounds are clear. Maintaining good O2 saturations in the 90s on 2 L/m per nasal cannula. I discussed the assessment and plan of care with my nurse practitioner, Melany Rodriguez. I attest to the above note as dictated by her.
[2019-09-05 12:08] LABS: Glucose,Whole Blood 278 mg/dL (75-99)
--- NOTE | 2019-09-05 14:14 | P.PN ---
Subjective HISTORY OF PRESENTING ILLNESS This is a pleasant 69-year-old female past medical history significant for COPD, diabetes mellitus, hypertension, dyslipidemia and morbid obesity. She also unfortunately continues to smoke. 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 She is s een and examined laying flat resting comfortably in bed. She states overall she feels much better since admission. However, chest xray obtained this morning reveals increasing fluid overload with moderate interstitial pulmonary edema. Blood pressure 149/73 heart rate 59 afebrile maintaining oxygen saturation on nasal cannula. Laboratory data reviewed, sodium 136, potassium 4.6, creatinine 0.56. Inaccurate documentation of intake and output. Currently maintained on aspirin 81 mg daily, atorvastatin 40 mg daily, lasix 40 mg IV TID, lisinopril 10 mg daily, lopressor 25 mg TID and aldactone 25 mg daily. Echocardiogram obtained reveals preserved LV systolic function with ejection fraction 60-65%, mild aortic stenosis with a mean gradient of 13 mmHg, mild mitral regurgitation, moderate tricuspid regurgitation and severe pulmonary hypertension with an RVSP of 76 mmHg. 09/05/2019 Patient is seen and examined resting comfortably laying flat in bed in no acute distress. She denies any worsening shortness of breath. She has had no symptoms of chest pain, dizziness or palpitations. She is quite adamant that she is going home today. Laboratory data reviewed, sodium 136, potassium 4.6, c reatinine 0.57, repeat magnesium 1.9. Blood pressure 177/70 heart rate 67 afebrile maintaining oxygen saturation on room air. PHYSICAL EXAMINATION CONSTITUTIONAL: No apparent distress. HEENT: Head is normocephalic. Pupils are equal, round. Sclerae anicteric. Mucous membranes of the mouth are moist. No JVD. No carotid bruit. CHEST EXAMINATION: Expiratory wheezes, no rales or rhonchi. No chest wall tenderness is noted on palpation or with deep breathing. HEART EXAMINATION: Regular rate and rhythm. S1, S2 heard. No murmurs, gallops or rub. EXTREMITIES: 2+ peripheral pulses, no lower extremity edema and no calf tenderness. ASSESSMENT Shortness of breath, multi-factorial secondary to COPD and diastolic heart failure. Acute on chronic diastolic heart failure secondary to cor pulmonale Pulmonary hypertension Valvular heart disease Anemia COPD Hypomagnesemia Hypertension Dyslipidemia PLAN Initiate amlodipine 5 mg daily. Advised her to follow a low salt diet and continue wearing lower extremity JOSEPH hose. She is quite adament she is going home today regardless of discharge order or no t. Advised her to check her weight daily at home and notify the office for a sooner appointment if she noticed an increase of more than 3 lbs in a day using the same scale at the same time each morning after voiding. Follow up in the office with Dr. Allen upon discharge. Nurse Practitioner note has been reviewed, I agree with a documented findings and plan of care. Patient was seen and examined. Objective - Vital Signs Vital signs: Vital Signs Temp 98.3 F 09/05/19 05:03 Pulse 70 09/05/19 12:52 Resp 16 09/05/19 08:00 BP 177/70 09/05/19 05:03 Pulse Ox 96 09/05/19 05:03 Intake & Output 09/04/19 09/05/19 09/05/19 18:59 06:59 18:59 Intake Total 550 Output Total 1000 Balance -450 Weight 93.5 kg Intake: Oral 550 Output: Urine 1000 Other: Voiding Method Bedside Commode Bedside Commode Bedside Commode # Voids 2 - Labs CBC & Chem 7: 09/02/19 22:47 09/05/19 07:39 Labs: Abnormal Lab Results - Last 24 Hours (Table) 09/04/19 09/04/19 09/04/19 Range/Units 07:50 17:07 20:07 Sodium (137-145) mmol/L Chloride (98-107) mmol/L Carbon Dioxide (22-30) mmol/L BUN (7-17) mg/dL Glucose (74-99) mg/dL POC Glucose (mg/dL) 280 H 273 H (75-99) mg/dL Hemoglobin A1c 7.7 H (4.0-6.0) % 09/05/19 09/05/19 09/05/19 Range/Units 07:04 07:39 12:06 Sodium 136 L (137-145) mmol/L Chloride 97 L (98-107) mmol/L Carbon Dioxide 31 H (22-30) mmol/L BUN 30 H (7-17) mg/dL Glucose 297 H (74-99) mg/dL POC Glucose (mg/dL) 318 H 278 H (75-99) mg/dL Hemoglobin A1c (4.0-6.0) %
--- NOTE | 2019-09-05 14:27 | XR ---
EXAMINATION TYPE: XR chest 1V portable DATE OF EXAM: 09/05/2019 COMPARISON: 09/04/2019 HISTORY: Shortness of breath TECHNIQUE: Single frontal view of the chest is obtained. FINDINGS: There is an enlarged cardiomediastinal silhouette. There is diffuse interstitial prominenc e that has slightly improved from the prior. No sizable pneumothorax or pleural effusion. Generalized osseous demineralization. IMPRESSION: Findings of cardiogenic fluid overload with moderate interstitial pulmonary edema and ca rdiomegaly.
[2019-09-05] MEDS: ALPRAZolam 0.25 MG TAB PO PRN (14:46)
[2019-09-05 15:12] VITALS: BP 148/75; PULSE 69; TEMP 98
--- NOTE | 2019-09-05 15:14 | P.DS ---
Providers Date of admission: 09/02/19 23:27 Expected date of discharge: 09/05/19 Attending physician: Helga Rivera Consults: 09/02/19 23:25 Consult Physician Routine Consulting Provider: Oliva Silveira Consult Reason/Comments: copd Do you want consulting provider notified?: Yes Consult Physician Routine Consulting Provider: Radhika Ching Consult Reason/Comments: chf Do you want consulting provider notified?: Yes Primary care physician: Connor Carreon Hospital Course: Final diagnosis -Acute hypercapnic and hypoxic respiratory failure secondary to COPD exacerbation -Congestive heart failure chronic diastolic dysfunction with some mild acute exacerbation -Type 2 diabetes mellitus -Hypertension -Hypothyroidism -Depression Discharge disposition Patient is being discharged in a stable condition with guarded prognosis to home and will follow-up with primary care provider Dr. Carreon upon discharge. Patient will also need to follow-up with Dr. Allen cardiology in the outpatient setting in one week. Patient will continue on a prednisone taper along with her Lasix dose and her Aldactone was increased in the outpatient setting. Norvasc was also added to her medication regimen. Total time taken is 35 minutes. History of present illness Patient is pleasant 69-year-old female came in with complaints of for severe short of breath has been going on for last 3-4 days patient is wheezing on exam is admitted for COPD exacerbation patient was treated started on systemic steroids. Patient does have history of COPD obese may have sleep apnea as well can use to smoke chest x-ray did not show any pneumonia patient has mild pulmonary vascular congestion patient had normal ejection fraction the past takes about 20 mg of Lasix at home. Patient was started on IV Lasix as well. Patient is coughing unable to bring up anything. 09/04/2019 Patient is lying in bed and appears to be in no acute distress. Patient states that she would like to go home today and feels better. Patient continues to have extensive wheezing and becomes severely short of breath with any exertion. Discussed with the patient at length about staying as her clinical presentation has not improved much from yesterday. Patient will continue on IV steroids and bronchodilators at this time. Today's chest x-ray shows increasing fluid overload with now moderate interstitial pulmonary edema. Magnesium was replaced yesterday and repeat magnesium is 1.9 today. 09/05/2019 Patient is sitting up in the chair and appears to be in no acute distress. Patient's wheezing has much improved and states that her shortness of breath has gotten better as well. Patient is not becoming as dyspneic with exertion as compared to yesterday. Patient is adamant about going home today. Repeat chest x-ray shows some mild improvement still suggestive of some fluid overload and patient will be given another dose of IV Lasix prior to discharge. She will continue on her Lasix dose in the outpatient setting and Aldactone was increased. Patient will need to follow-up with primary care provider upon discharge and will also need to follow-up with Dr. Allen cardiology in the outpatient setting in 1 week. Currently patient denies any chest pain, worsening shortness of breath, or palpitations. Patient is afebrile. Patient denies any nausea or vomiting and has been tolerating diet. On exam vital signs are stable. Temp is 98.3F, pulse is 67, respirations are 16, blood pressure is 177/70, oxygen saturation is 96% on 2 L via nasal cannula. Patient normally uses 2 L at home intermittently. Cardio S1, S2 are muffled. Respiratory system shows diminished breath sounds at the bases with minimal wheezes noted. Abdomen is soft, obese, nontender. Nervous system shows no focal deficits. Please refer to medication reconciliation sheet for a list of medications. Patient Condition at Discharge: Stable Plan - Discharge Summary New Discharge Prescriptions: New Spironolactone [Aldactone] 50 mg PO DAILY 30 Days #60 tab amLODIPine [Norvasc] 5 mg PO DAILY 30 Days #30 tab predniSONE 10 mg PO DIRECTED #30 tab Continue Zafirlukast [Accolate] 20 mg PO BID Aspirin 81 mg PO DAILY Albuterol Inhaler [Ventolin Hfa Inhaler] 2 puff INHALATION RT-Q4H PRN #0 PRN Reason: Dyspnea traZODone HCL 100 mg PO HS PRN PRN Reason: Insomnia metFORMIN HCL [Glucophage] 1,000 mg PO BID Fluticasone Nasal [place] [Flonase Nasal [place]] 1 - 2 spray EA NOSTRIL DAILY ARIPiprazole [Abilify] 5 mg PO HS Ipratropium-Albuterol Nebulize [Duoneb 0.5 mg-3 mg/3 ml Soln] 3 ml INHALATION RT-QID #120 ampul.neb Escitalopram [Lexapro] 10 mg PO HS Atorvastatin [Lipitor] 40 mg PO DAILY #30 tab Metoprolol Tartrate [Lopressor] 25 mg PO TID #90 tab Cholecalciferol [Vitamin D3 (25 Mcg = 1000 Iu)] 1,000 unit PO DAILY Furosemide [Lasix] 20 mg PO DAILY Levothyroxine Sodium [Synthroid] 200 mcg PO DAILY Lisinopril [Zestril] 10 mg PO DAILY oxyCODONE-APAP 7.5-325MG [Percocet 7.5-325 mg] 1 tab PO Q4H PRN PRN Reason: Pain Pantoprazole [Protonix] 40 mg PO DAILY Umeclidinium [place] [Incruse Ellipta] 1 puff INHALATION RT-DAILY Discharge Medication List Aspirin 81 mg PO DAILY 02/06/14 [History] Zafirlukast [Accolate] 20 mg PO BID 02/06/14 [History] Albuterol Inhaler [Ventolin Hfa Inhaler] 2 puff INHALATION RT-Q4H PRN #0 09/07/15 [Rx] ARIPiprazole [Abilify] 5 mg PO HS 02/07/18 [History] Fluticasone Nasal [place] [Flonase Nasal [place]] 1 - 2 spray EA NOSTRIL DAILY 02/07/18 [History] metFORMIN HCL [Glucophage] 1,000 mg PO BID 02/07/18 [History] traZODone HCL 100 mg PO HS PRN 02/07/18 [History] Ipratropium-Albuterol Nebulize [Duoneb 0.5 mg-3 mg/3 ml Soln] 3 ml INHALATION RT-QID #120 ampul.neb 02/09/18 [Rx] Escitalopram [Lexapro] 10 mg PO HS 09/08/18 [History] Atorvastatin [Lipitor] 40 mg PO DAILY #30 tab 09/10/18 [Rx] Metoprolol Tartrate [Lopressor] 25 mg PO TID #90 tab 09/10/18 [Rx] Cholecalciferol [Vitamin D3 (25 Mcg = 1000 Iu)] 1,000 unit PO DAILY 09/03/19 [History] Furosemide [Lasix] 20 mg PO DAILY 09/03/19 [History] Levothyroxine Sodium [Synthroid] 200 mcg PO DAILY 09/03/19 [History] Lisinopril [Zestril] 10 mg PO DAILY 09/03/19 [History] Pantoprazole [Protonix] 40 mg PO DAILY 09/03/19 [History] Umeclidinium [place] [Incruse Ellipta] 1 puff INHALATION RT-DAILY 09/03/19 [History] oxyCODONE-APAP 7.5-325MG [Percocet 7.5-325 mg] 1 tab PO Q4H PRN 09/03/19 [History] Spironolactone [Aldactone] 50 mg PO DAILY 30 Days #60 tab 09/05/19 [Rx] amLODIPine [Norvasc] 5 mg PO DAILY 30 Days #30 tab 09/05/19 [Rx] predniSONE 10 mg PO DIRECTED #30 tab 09/05/19 [Rx] Follow up Appointment(s)/Referral(s): Gracy Allen MD [STAFF PHYSICIAN] - 2 Weeks Connor Carreon [Primary Care Provider] - 1-2 days Activity/Diet/Wound Care/Special Instructions: Scripts have been E-scribed to her pharmacy Continue current diet Follow-up with primary care provider upon discharge Follow-up with pulmonary as discussed Follow-up with cardiology Discharge Disposition: HOME SELF-CARE
--- NOTE | 2019-09-12 07:20 | CDI ---
Documentation Clarification Form Date: 09/12/19 From: Marija Petty Phone: If you have a question about this query, please contact Deedee Gandhi, Streetcar Dispatcher at [phone] between 8am and 5pm. Admit Date: 09/02/19 Discharge Date: 09/05/19 Patient Name: Ban Estrada Visit Number: [id number] ATTENTION: The Clinical Documentation Specialists (CDI) and [facility] Coding Staff appreciate your assistance in clarifying documentation. Please respond to the clarification below the line at the bottom and electronically sign. The CDI & [facility] Coding staff will review the response and follow-up if needed. Please note: Queries are made part of the Legal Health Record. If you have any questions, please contact the author of this message via ITS. Dear Dr. Sugar Lei, Pulmonary hypertension is documented in the echo, Dr Silveira's consult, Dr Allen 09/04& 09/05 PNs, Dr Silveira's 09/04 & 09/05 PN's, History/Risk Factors: COPD, CHF, morbid obesity, cor pulmonale, DM Clinical Indicators: pedal edema, exertional dyspnea, orthopnea Lab findings: [id number] CXR 09/02: Cardiomegaly and mild congestion. Echo: Severe pulmonary hypertension Treatment: Echo, IV Lasix, IV Solu-Medrol, Consults: Dr Aleln & Dr Silveira In your professional opinion, can you please clarify pulmonary hypertension? Group 1 Group 2 Group 3 Group 4 Group 5 Unspecified Other, please specify Unable to determine Unable to determine MTDD
== END 2019-09-05 15:37 | disposition home or self-care (01) | DRG 291 ==
LOC: EC 22:19 → 6NMEDSUR 23:27
PROVIDERS: ADMIT Hospitalist; ATTEND Hospitalist
DX: I11.0 Hypertensive heart disease with heart failure (principal); J96.02 Acute respiratory failure with hypercapnia; J96.01 Acute respiratory failure with hypoxia; J44.1 Chronic obstructive pulmonary disease with (acute) exacerbation; L03.116 Cellulitis of left lower limb; Z68.41 Body mass index [BMI] 40.0-44.9, adult; I50.33 Acute on chronic diastolic (congestive) heart failure; E66.01 Morbid (severe) obesity due to excess calories; I27.29 Other secondary pulmonary hypertension; I27.81 Cor pulmonale (chronic); I08.1 Rheumatic disorders of both mitral and tricuspid valves; E11.39 Type 2 diabetes mellitus with other diabetic ophthalmic complication; H40.9 Unspecified glaucoma; H42 Glaucoma in diseases classified elsewhere; E83.42 Hypomagnesemia; N20.0 Calculus of kidney; E78.5 Hyperlipidemia, unspecified; E03.9 Hypothyroidism, unspecified; D64.9 Anemia, unspecified; G47.30 Sleep apnea, unspecified; I83.90 Asymptomatic varicose veins of unspecified lower extremity; G89.29 Other chronic pain; M51.36 Other intervertebral disc degeneration, lumbar region; F41.9 Anxiety disorder, unspecified; F32.9 Major depressive disorder, single episode, unspecified; M19.90 Unspecified osteoarthritis, unspecified site; F17.210 Nicotine dependence, cigarettes, uncomplicated; Z99.81 Dependence on supplemental oxygen; Z79.82 Long term (current) use of aspirin; Z79.890 Hormone replacement therapy; Z79.84 Long term (current) use of oral hypoglycemic drugs; Z79.899 Other long term (current) drug therapy; Z71.3 Dietary counseling and surveillance; Z85.828 Personal history of other malignant neoplasm of skin; Z87.442 Personal history of urinary calculi; Z91.81 History of falling; Z90.49 Acquired absence of other specified parts of digestive tract; Z98.51 Tubal ligation status; Z98.890 Other specified postprocedural states; Z98.891 History of uterine scar from previous surgery; Z88.1 Allergy status to other antibiotic agents; Z91.040 Latex allergy status; Z88.5 Allergy status to narcotic agent; Z88.0 Allergy status to penicillin; Z91.048 Other nonmedicinal substance allergy status; Z82.5 Family history of asthma and other chronic lower respiratory diseases; Z82.49 Family history of ischemic heart disease and other diseases of the circulatory system; Z80.8 Family history of malignant neoplasm of other organs or systems
CPT/HCPCS: 36415; 71045; 71046; 80048; 80053; 82550; 83036; 83735; 83880; 84484; 85025; 85610; 85730; 93005; 93306; 94640; 96374; 96375; 99285

== ENCOUNTER 2020-03-11 20:31 | Inpatient (IN) | payer MEDICARE, OTHER ==
[2020-03-11] MEDS ORDERED: FUROSEMIDE 10 MG/ML 4 ML VIAL IV STA (21:09)
[2020-03-11] MEDS ORDERED: NITROGLYCERIN OINT 1 INCH/GM PACKET TOPICAL STA (21:09)
[2020-03-11 22:09] LABS: Albumin 3.4 g/dL (3.5-5.0); Calcium 8.6 mg/dL (8.4-10.2); INR 1.1 (<1.2); Partial Thromboplastin Time 23.9 sec (22.0-30.0); Potassium 5.7 mmol/L (3.5-5.1); Prothrombin Time 11.2 sec (9.0-12.0); Total Bilirubin 0.4 mg/dL (0.2-1.3); Total Protein 6.2 g/dL (6.3-8.2)
[2020-03-11 22:16] LABS: Anisocytosis Slight; Basophils % (A) 0 %; Eosinophils # (A) 0.2 k/uL (0-0.7); Eosinophils % (A) 1 %; HCT 37.3 % (34.0-46.0); HGB 9.8 gm/dL (11.4-16.0); Hypochromasia Marked; Lymphocytes % (A) 9 %; MCH 18.9 pg (25.0-35.0); MCHC 26.2 g/dL (31.0-37.0); MCV 72.2 fL (80.0-100.0); Mean Platelet Volume 6.7; Microcytosis Moderate; Monocytes % (A) 9 %; Neutrophils # (A) 8.9 k/uL (1.3-7.7); Neutrophils % (A) 79 %; Platelet Count 439 k/uL (150-450); Poikilocytosis Slight; RBC 5.17 m/uL (3.80-5.40); RDW 18.6 % (11.5-15.5); WBC 11.2 k/uL (3.8-10.6)
--- NOTE | 2020-03-11 22:16 | XR ---
EXAMINATION TYPE: XR chest 2V DATE OF EXAM: 03/11/2020 COMPARISON: 09/09/2019 HISTORY: Short of breath. Heart failure. TECHNIQUE: FINDINGS: Heart is enlarged. There is some pulmonary vascular congestion. There is bilateral blunting of the costophrenic angles. Thoracic aorta is atheromatous. There are chest leads. IMPRESSION: Congestive heart failure appears slightly worse than old exam. Pleural fluid probably inc reased.
[2020-03-11 22:50] LABS: Poikilocytosis (M) Present; Target Cells Present
[2020-03-11] MEDS ORDERED: METOPROLOL TARTRATE 25 MG TAB PO STA (23:21)
[2020-03-11] MEDS ORDERED: ARIPiprazole 5 MG TAB PO ONE (23:30)
[2020-03-11] MEDS ORDERED: NALOXONE 0.4 MG/ML 1 ML VIAL IV PRN (23:31)
--- NOTE | 2020-03-11 23:31 | ED ---
SOB HPI - General Source: patient Mode of arrival: ambulatory Limitations: no limitations <Jessica Osman - Last Filed: 03/11/20 23:22> <Kristian Barragan - Last Filed: 03/15/20 07:42> - General Chief Complaint: Shortness of Breath Stated Complaint: SOB,CHF Time Seen by Provider: 03/11/20 20:50 - History of Present Illness Initial Comments: 69-year-old female patient presents to the emergency department today for evaluation of shortness of breath and swelling. Patient states that for the last couple days she's had increase in her usual short of breath. States that she does wear oxygen at night time only. States that she has had increased swelling to her legs and arms. States she does take Lasix and has a history of congestive heart failure. She denies any chest pain, dizziness, or weakness. Denies any nausea, vomiting, constipation, or diarrhea. Denies any hematuria, dysuria, urinary frequency, urinary urgency. Patient denies any recent rash, cough, abdominal pain, diarrhea, constipation, back pain, numbness, tingling, dizziness, weakness, hematuria, dysuria, urinary urgency, urinary frequency, headache, visual changes, or any other complaints. (Jessica Osman) - Related Data Home Medications Medication Instructions Recorded Confirmed Aspirin 81 mg PO DAILY 02/06/14 03/11/20 Zafirlukast [Accolate] 20 mg PO BID 02/06/14 03/11/20 ARIPiprazole [Abilify] 5 mg PO HS 02/07/18 03/11/20 metFORMIN HCL [Glucophage] 1,000 mg PO BID 02/07/18 03/11/20 traZODone HCL 100 mg PO HS PRN 02/07/18 03/11/20 Cholecalciferol [Vitamin D3 (25 1,000 unit PO DAILY 09/03/19 03/11/20 Mcg = 1000 Iu)] Furosemide [Lasix] 20 mg PO DAILY 09/03/19 03/11/20 Levothyroxine Sodium [Synthroid] 200 mcg PO DAILY 09/03/19 03/11/20 lisinopriL [Zestril] 10 mg PO DAILY 09/03/19 03/11/20 Albuterol Sulfate [Ventolin HFA] 1 - 2 puff INHALATION RT-Q6H PRN 03/11/20 03/11/20 Escitalopram [Lexapro] 20 mg PO DAILY 03/11/20 03/11/20 HYDROcodone/APAP 7.5-325MG [[place] 1 tab PO Q6H PRN 03/11/20 03/11/20 7.5-325] Spironolactone [Aldactone] 50 mg PO DAILY 03/11/20 03/11/20 Previous Rx's Medication Instructions Recorded Atorvastatin [Lipitor] 40 mg PO DAILY #30 tab 09/10/18 Metoprolol Tartrate [Lopressor] 25 mg PO TID #90 tab 09/10/18 amLODIPine [Norvasc] 5 mg PO DAILY 30 Days #30 tab 09/05/19 Allergies Allergy/AdvReac Type Severity Reaction Status Date / Time adhesive Allergy Rash/Hives Verified 03/11/20 21:54 ciprofloxacin [From Cipro] Allergy Rash/Hives Verified 03/11/20 21:54 ciprofloxacin HCl Allergy Rash/Hives Verified 03/11/20 21:54 [From Cipro] latex Allergy Rash/Hives Verified 03/11/20 21:54 nitrofurantoin Allergy Rash/Hives Verified 03/11/20 21:54 [From Macrobid] nitrofurantoin Allergy Rash/Hives Verified 03/11/20 21:54 macrocrystalline [From Macrobid] Penicillins Allergy Rash/Hives Verified 03/11/20 21:54 propoxyphene HCl Allergy Rash/Hives Verified 03/11/20 21:54 [From Darvon] propoxyphene napsylate Allergy Unknown Verified 03/11/20 21:54 [From Darvocet-N] Review of Systems ROS Other: All systems not noted in ROS Statement are negative. <Jessica Osman - Last Filed: 03/11/20 23:22> ROS Other: All systems not noted in ROS Statement are negative. <Kristian Barragan - Last Filed: 03/15/20 07:42> ROS Statement: Those systems with pertinent positive or pertinent negative responses have been documented in the HPI. Past Medical History Past Medical History: Asthma, Chest Pain / Angina, COPD, Diabetes Mellitus, Hyperlipidemia, Hypertension, Osteoarthritis (OA), Respiratory Disorder, Skin Disorder, Thyroid Disorder Additional Past Medical History / Comment(s): Obesity (BMI 35) COPD, asthma, diabetes , depression, 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 The patient is also a smoker. The patient has chronic back pain. History of Any Multi-Drug Resistant Organisms: None Reported Past Surgical History: Appendectomy, Section, Cholecystectomy, Orthopedic Surgery, Tubal Ligation Additional Past Surgical History / Comment(s): LASER SX JETHRO EYES FOR GLAUCOMA. RT KNEE ARTHROSCOPY. UNDERWENT PERCUTANEOUS NEPHROSTOLITHOTOMY Past Anesthesia/Blood Transfusion Reactions: No Reported Reaction Past Psychological History: Anxiety, Depression Smoking Status: Current every day smoker Past Alcohol Use History: None Reported Past Drug Use History: None Reported - Past Family History Mother Additional Family Medical History / Comment(s): emphysema, heart valve problems, in her slepp. Brother(s) Family Medical History: Cancer Additional Family Medical History / Comment(s): from oral cancer Father Brother(s) Family Medical History: Cancer Additional Family Medical History / Comment(s): heart disease <Jessica Osman M - Last Filed: 03/11/20 23:22> General Exam Limitations: no limitations General appearance: alert, in no apparent distress, other (This is a well- developed, well-nourished adult female patient in mild respiratory distress. Vital signs upon presentation showed temperature 97.8F, pulse 60, respirations 18, blood pressure 153/78, pulse ox 86% on room air.) Eye exam: Present: normal appearance, PERRL, EOMI. Absent: scleral icterus, conjunctival injection, periorbital swelling ENT exam: Present: normal exam, normal oropharynx, mucous membranes moist Respiratory exam: Present: respiratory distress (Mild), rales, other (Rales noted in the posterior lung campbell. Tachypnea. Abdominal accessory muscle use.). Absent: wheezes, rhonchi, stridor Cardiovascular Exam: Present: regular rate, normal rhythm, normal heart sounds. Absent: systolic murmur, diastolic murmur, rubs, gallop, clicks GI/Abdominal exam: Present: soft, distended, normal bowel sounds. Absent: tenderness, guarding, rebound, rigid Extremities exam: Present: normal inspection, full ROM, normal capillary refill, other (There is generalized anasarca over the arms, abdomen, legs. Skin is pink, warm, dry.). Absent: tenderness, pedal edema, joint swelling, calf tenderness Neurological exam: Present: alert, oriented X3, CN II-XII intact Psychiatric exam: Present: normal affect, normal mood Skin exam: Present: warm, dry, intact, normal color. Absent: rash <Bantle,Jessica M - Last Filed: 03/11/20 23:22> Course Vital Signs 03/11/20 03/11/20 03/11/20 20:35 21:21 21:23 Temperature 97.8 F Pulse Rate 60 64 64 Pulse Rate [ Digital Design Engineer ] Respiratory 18 10 L 22 Rate Blood Pressure 153/78 126/67 Blood Pressure [Right Arm] O2 Sat by Pulse 86 L 99 99 Oximetry 03/11/20 03/11/20 03/11/20 21:55 22:00 22:07 Temperature Pulse Rate 69 Pulse Rate [ Digital Design Engineer ] Respiratory 22 22 Rate Blood Pressure 125/63 135/67 Blood Pressure [Right Arm] O2 Sat by Pulse 98 Oximetry 03/11/20 03/11/20 03/11/20 22:52 23:00 23:53 Temperature Pulse Rate 67 64 Pulse Rate [ Digital Design Engineer ] Respiratory 22 18 Rate Blood Pressure 126/48 126/48 162/72 Blood Pressure [Right Arm] O2 Sat by Pulse 96 Oximetry 03/12/20 03/12/20 03/12/20 00:00 01:00 02:00 Temperature Pulse Rate 64 68 52 L Pulse Rate [ Digital Design Engineer ] Respiratory 9 L 12 Rate Blood Pressure 162/72 Blood Pressure [Right Arm] O2 Sat by Pulse 96 Oximetry 03/12/20 03/12/20 03/12/20 03:00 04:00 05:00 Temperature Pulse Rate 51 L 54 L 52 L Pulse Rate [ Digital Design Engineer ] Respiratory 17 20 19 Rate Blood Pressure Blood Pressure [Right Arm] O2 Sat by Pulse 96 97 96 Oximetry 03/12/20 03/12/20 03/12/20 05:16 06:00 07:00 Temperature 98 F Pulse Rate 57 L 51 L 54 L Pulse Rate [ Digital Design Engineer ] Respiratory 20 9 L 22 Rate Blood Pressure 156/65 156/65 97/60 Blood Pressure [Right Arm] O2 Sat by Pulse 95 93 L 94 L Oximetry 03/12/20 03/12/20 03/12/20 07:37 07:49 08:00 Temperature 98.7 F Pulse Rate 56 L 56 L 54 L Pulse Rate [ 54 L Digital Design Engineer ] Respiratory 18 Rate Blood Pressure 129/62 Blood Pressure 111/48 [Right Arm] O2 Sat by Pulse 95 94 L Oximetry 03/12/20 09:00 Temperature Pulse Rate 51 L Pulse Rate [ Digital Design Engineer ] Respiratory 23 Rate Blood Pressure 111/48 Blood Pressure [Right Arm] O2 Sat by Pulse 96 Oximetry Medical Decision Making - Lab Data Result diagrams: 03/11/20 21:09 03/11/20 21:09 - EKG Data -: EKG Interpreted by [facility] - Radiology Data Radiology results: report reviewed, image reviewed <Jessica Osman - Last Filed: 03/11/20 23:22> - Lab Data Result diagrams: 03/15/20 05:48 03/15/20 03:53 <Kristian Barragan - Last Filed: 03/15/20 07:42> - Medical Decision Making 69-year-old female patient presents to the emergency department today for evaluation of increased swelling, shortness of breath. Patient states that symptoms worsened over the last couple of days. Physical examination did reveal Rales in the posterior lung campbell. She did have abdominal distention, swelling to the arms and legs. Labs reviewed and did reveal elevated potassium of 5.7, decreased sodium at 126. She had elevated BNP at 8000. Chest x-ray showed increase in pulmonary vascular congestion and pleural fluid. Patient did receive Lasix here in the emergency department. We did apply Nitropaste. She will be admitted to the hospital for continued IV Lasix and further evaluation by cardiology. Patient is agreeable with this plan. (Jessica Osman) I saw this patient in conjunction with the physician assistant production manager. I performed independent history and physical exam. Agree with case management. (Kristian Barragan) - Lab Data Lab Results 03/11/20 03/11/20 03/11/20 Range/Units 21:09 21:09 21:09 WBC 11.2 H (3.8-10.6) k/uL RBC 5.17 (3.80-5.40) m/uL Hgb 9.8 L (11.4-16.0) gm/dL Hct 37.3 (34.0-46.0) % MCV 72.2 L (80.0-100.0) fL MCH 18.9 L (25.0-35.0) pg MCHC 26.2 L (31.0-37.0) g/dL RDW 18.6 H (11.5-15.5) % Plt Count 439 (150-450) k/uL Neutrophils % 79 % Lymphocytes % 9 % Monocytes % 9 % Eosinophils % 1 % Basophils % 0 % Neutrophils # 8.9 H (1.3-7.7) k/uL Lymphocytes # 1.0 (1.0-4.8) k/uL Monocytes # 1.0 (0-1.0) k/uL Eosinophils # 0.2 (0-0.7) k/uL Basophils # 0.0 (0-0.2) k/uL Manual Slide Review Performed Hypochromasia Marked Poikilocytosis Slight Poikilocytosis (manual Present Anisocytosis Slight Microcytosis Moderate Target Cells Present PT 11.2 (9.0-12.0) sec INR 1.1 (<1.2) APTT 23.9 (22.0-30.0) sec Sodium 126 L (137-145) mmol/L Potassium 5.7 H (3.5-5.1) mmol/L Chloride 93 L (98-107) mmol/L Carbon Dioxide 23 (22-30) mmol/L Anion Gap 10 mmol/L BUN 42 H (7-17) mg/dL Creatinine 0.90 (0.52-1.04) mg/dL Est GFR (CKD-EPI)AfAm 75 (>60 ml/min/1.73 sqM) Est GFR (CKD-EPI)NonAf 65 (>60 ml/min/1.73 sqM) Glucose 133 H (74-99) mg/dL Plasma Lactic Acid Ravi (0.7-2.0) mmol/L Calcium 8.6 (8.4-10.2) mg/dL Total Bilirubin 0.4 (0.2-1.3) mg/dL AST 33 (14-36) U/L ALT 20 (4-34) U/L Alkaline Phosphatase 141 H (38-126) U/L Troponin I (0.000-0.034) ng/mL NT-Pro-B Natriuret Pep pg/mL Total Protein 6.2 L (6.3-8.2) g/dL Albumin 3.4 L (3.5-5.0) g/dL 03/11/20 03/11/20 03/11/20 Range/Units 21:09 21:09 21:09 WBC (3.8-10.6) k/uL RBC (3.80-5.40) m/uL Hgb (11.4-16.0) gm/dL Hct (34.0-46.0) % MCV (80.0-100.0) fL MCH (25.0-35.0) pg MCHC (31.0-37.0) g/dL RDW (11.5-15.5) % Plt Count (150-450) k/uL Neutrophils % % Lymphocytes % % Monocytes % % Eosinophils % % Basophils % % Neutrophils # (1.3-7.7) k/uL Lymphocytes # (1.0-4.8) k/uL Monocytes # (0-1.0) k/uL Eosinophils # (0-0.7) k/uL Basophils # (0-0.2) k/uL Manual Slide Review Hypochromasia Poikilocytosis Poikilocytosis (manual Anisocytosis Microcytosis Target Cells PT (9.0-12.0) sec INR (<1.2) APTT (22.0-30.0) sec Sodium (137-145) mmol/L Potassium (3.5-5.1) mmol/L Chloride (98-107) mmol/L Carbon Dioxide (22-30) mmol/L Anion Gap mmol/L BUN (7-17) mg/dL Creatinine (0.52-1.04) mg/dL Est GFR (CKD-EPI)AfAm (>60 ml/min/1.73 sqM) Est GFR (CKD-EPI)NonAf (>60 ml/min/1.73 sqM) Glucose (74-99) mg/dL Plasma Lactic Acid Ravi 1.3 (0.7-2.0) mmol/L Calcium (8.4-10.2) mg/dL Total Bilirubin (0.2-1.3) mg/dL AST (14-36) U/L ALT (4-34) U/L Alkaline Phosphatase (38-126) U/L Troponin I <0.012 (0.000-0.034) ng/mL NT-Pro-B Natriuret Pep 8200 pg/mL Total Protein (6.3-8.2) g/dL Albumin (3.5-5.0) g/dL - EKG Data EKG Comments: EKG obtained at 2115 shows normal sinus rhythm with a ventricular rate of 68, IL interval 162, QRS duration 80, QT 382, QTc 406. No evidence of ST elevation or depression. (Jessica Osman) - Radiology Data Two-view x-ray of the chest is obtained. Report was reviewed in its entirety. Impression by Dr. Gonzales shows congestive heart failure appears slightly worse in old exam. Pleural fluid probably increased pain (Jessica Osman) Disposition Decision to Admit Reason: Admit from EC Decision Date: 03/11/20 Decision Time: 23:31 <Jessica Osman - Last Filed: 03/11/20 23:22> <Kristian Barragan - Last Filed: 03/15/20 07:42> Clinical Impression: CHF exacerbation, Dyspnea Disposition: ADMITTED IP TO THIS [facility] Condition: Serious
--- NOTE | 2020-03-12 03:37 | P.HPIM ---
History of Present Illness H&P Date: 03/11/20 Chief Complaint: SOB, generalized swelling 69 year old female with DM, asthma, CHF patient comes in with 2-3 days history of SOB. patient did not provide any history, she was sitting on the edge of the bed with difficulty in breathing. she would nod her head to agree or disagree with the history her is providing. he reports that she has been doing fine, up until 2 days ago , when she started having trouble breathing , not much improving with breathing treatment s. she has history of CHF, and claims to be compliant with her meds. she does not check her weight on daily basis , but has noticed progressive increase generalized swelling in her legs and arms. she denies any chest pain , headache, fever, chills, cough, nausea or vomiting. she uses oxygen at bedtime. she denies any GI bleeding , denies any recent traveling. denies any loss of taste or smell sensation . in the ED she was found to have anasarca with significant swelling all over her body, CXR showed pleural effusion and vascular congestion. elevated probnp, chronic anemia, elevated K, and Low Na. Review of Systems Pertinent positives as noted in HPI. All other systems were reviewed and are negative Past Medical History Past Medical History: Asthma, Chest Pain / Angina, COPD, Diabetes Mellitus, Hyperlipidemia, Hypertension, Osteoarthritis (OA), Respiratory Disorder, Skin Disorder, Thyroid Disorder Additional Past Medical History / Comment(s): Obesity (BMI 35) COPD, asthma, diabetes , depression, 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 The patient is also a smoker. The patient has chronic back pain. History of Any Multi-Drug Resistant Organisms: None Reported Past Surgical History: Appendectomy, Section, Cholecystectomy, Orthopedic Surgery, Tubal Ligation Additional Past Surgical History / Comment(s): LASER SX JETHRO EYES FOR GLAUCOMA. RT KNEE ARTHROSCOPY. UNDERWENT PERCUTANEOUS NEPHROSTOLITHOTOMY Past Anesthesia/Blood Transfusion Reactions: No Reported Reaction Past Psychological History: Anxiety, Depression Smoking Status: Current every day smoker Past Alcohol Use History: None Reported Past Drug Use History: None Reported - Past Family History Mother Additional Family Medical History / Comment(s): emphysema, heart valve problems, in her slepp. Brother(s) Family Medical History: Cancer Additional Family Medical History / Comment(s): from oral cancer Father Brother(s) Family Medical History: Cancer Additional Family Medical History / Comment(s): heart disease Medications and Allergies Home Medications Medication Instructions Recorded Confirmed Type Aspirin 81 mg PO DAILY 02/06/14 03/11/20 History Zafirlukast [Accolate] 20 mg PO BID 02/06/14 03/11/20 History ARIPiprazole [Abilify] 5 mg PO HS 02/07/18 03/11/20 History metFORMIN HCL [Glucophage] 1,000 mg PO BID 02/07/18 03/11/20 History traZODone HCL 100 mg PO HS PRN 02/07/18 03/11/20 History Atorvastatin [Lipitor] 40 mg PO DAILY #30 tab 09/10/18 03/11/20 Rx Metoprolol Tartrate [Lopressor] 25 mg PO TID #90 tab 09/10/18 03/11/20 Rx Cholecalciferol [Vitamin D3 (25 1,000 unit PO DAILY 09/03/19 03/11/20 History Mcg = 1000 Iu)] Furosemide [Lasix] 20 mg PO DAILY 09/03/19 03/11/20 History Levothyroxine Sodium [Synthroid] 200 mcg PO DAILY 09/03/19 03/11/20 History lisinopriL [Zestril] 10 mg PO DAILY 09/03/19 03/11/20 History amLODIPine [Norvasc] 5 mg PO DAILY 30 Days #30 tab 09/05/19 03/11/20 Rx Albuterol Sulfate [Ventolin HFA] 1 - 2 puff INHALATION RT-Q6H PRN 03/11/20 03/11/20 History Escitalopram [Lexapro] 20 mg PO DAILY 03/11/20 03/11/20 History HYDROcodone/APAP 7.5-325MG [[place] 1 tab PO Q6H PRN 03/11/20 03/11/20 History 7.5-325] Spironolactone [Aldactone] 50 mg PO DAILY 03/11/20 03/11/20 History Allergies Allergy/AdvReac Type Severity Reaction Status Date / Time adhesive Allergy Rash/Hives Verified 03/11/20 21:54 ciprofloxacin [From Cipro] Allergy Rash/Hives Verified 03/11/20 21:54 ciprofloxacin HCl Allergy Rash/Hives Verified 03/11/20 21:54 [From Cipro] latex Allergy Rash/Hives Verified 03/11/20 21:54 nitrofurantoin Allergy Rash/Hives Verified 03/11/20 21:54 [From Macrobid] nitrofurantoin Allergy Rash/Hives Verified 03/11/20 21:54 macrocrystalline [From Macrobid] Penicillins Allergy Rash/Hives Verified 03/11/20 21:54 propoxyphene HCl Allergy Rash/Hives Verified 03/11/20 21:54 [From Darvon] propoxyphene napsylate Allergy Unknown Verified 03/11/20 21:54 [From Darvocet-N] Physical Exam Vitals: Vital Signs Temp Pulse Resp BP Pulse Ox 03/11/20 23:53 64 18 162/72 96 03/11/20 22:52 126/48 03/11/20 22:07 69 22 135/67 98 03/11/20 21:55 22 03/11/20 21:23 64 22 126/67 99 03/11/20 20:35 97.8 F 60 18 153/78 86 L Intake and Output 03/11/20 03/11/20 03/12/20 14:59 22:59 06:59 Other: Weight 113.398 kg Constitutional: patient in some mild respiratory distress, using accessory muscles of respiration , cooperative Eyes: Anicteric sclerae, moist conjunctiva, Pupils equal round reactive to light ENMT: NC/AT Oropharynx clear, no erythema, or exudates Neck: Supple, FROM, no masses, . positive JVD No carotid bruits No thyromegaly Lungs: decrease breath sounds, with diffuse exp wheezing , and basal rales Cardiovascular: Heart regular in rate and rhythm, No murmurs, gallops, or rubs +3 peripheral edema bialterally Abdominal: tense abd distention with skin induration from anasarca Nontender, no guarding, rebound or rigidity Abdomen moving with respiration Normoactive bowel sounds No hepatomegaly, No splenomegaly No palpable mass No abdominal wall hernia noted Skin: diffuse skin edema over the abd, back, lower extremiteis, and upper extremities left worse than right otherwise Normal temperature, tone, texture, turgor Extremities: No digital cyanosis No clubbing Pedal pulses intact and symmetrical Radial pulses intact and symmetrical No calf tenderness Psychiatric: Alert and oriented to person, place and time Appropriate affect fair judgement Neuro Muscles Strength 4/5 in all 4 extremities Sensation to light touch grossly present throughout Cranial nerves II-XII grossly intact No focal sensory deficits Lymphatics: no palpable cervical or supraclavicular , or inguinal lymph nodes Results CBC & Chem 7: 03/11/20 21:09 03/11/20 21:09 Labs: Abnormal Lab Results - Last 24 Hours (Table) 03/11/20 03/11/20 Range/Units 21:09 21:09 WBC 11.2 H (3.8-10.6) k/uL Hgb 9.8 L (11.4-16.0) gm/dL MCV 72.2 L (80.0-100.0) fL MCH 18.9 L (25.0-35.0) pg MCHC 26.2 L (31.0-37.0) g/dL RDW 18.6 H (11.5-15.5) % Neutrophils # 8.9 H (1.3-7.7) k/uL Sodium 126 L (137-145) mmol/L Potassium 5.7 H (3.5-5.1) mmol/L Chloride 93 L (98-107) mmol/L BUN 42 H (7-17) mg/dL Glucose 133 H (74-99) mg/dL Alkaline Phosphatase 141 H (38-126) U/L Total Protein 6.2 L (6.3-8.2) g/dL Albumin 3.4 L (3.5-5.0) g/dL Assessment and Plan Assessment: acute hypoxic respiratory failure acute CHF exacerbation with fluid overload pulmonary vascular congestion , pleural effusion , and anasarca chronic microcytic anemia mild hyperkalemia hyponatremia asthma exacerbation DM hypothyroid plan strict I/O IV diuresis 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
[2020-03-12 05:06] LABS: ABG Base Excess -2.7 mmol/L; ABG HCO3 27 mmol/L (21-25); ABG Oxygen Saturation 98.4 % (94-97); ABG PO2 135 mmHg (83-108); ABG TCO2 29 mmol/L (19-24); Allen Test Performed? Yes
[2020-03-12 05:51] LABS: Anisocytosis Slight; Basophils % (A) 0 %; Eosinophils # (A) 0.1 k/uL (0-0.7); Eosinophils % (A) 1 %; HGB 9.4 gm/dL (11.4-16.0); Hypochromasia Marked; Lymphocytes # (A) 0.6 k/uL (1.0-4.8); Lymphocytes % (A) 6 %; MCHC 25.4 g/dL (31.0-37.0); MCV 74.7 fL (80.0-100.0); Mean Platelet Volume 6.5; Microcytosis Moderate; Monocytes # (A) 0.7 k/uL (0-1.0); Monocytes % (A) 8 %; Neutrophils # (A) 7.3 k/uL (1.3-7.7); Neutrophils % (A) 82 %; Platelet Count 442 k/uL (150-450); RBC 4.95 m/uL (3.80-5.40); RDW 18.6 % (11.5-15.5); WBC 8.9 k/uL (3.8-10.6)
[2020-03-12 06:03] LABS: Albumin 3.2 g/dL (3.5-5.0); Calcium 8.4 mg/dL (8.4-10.2); Total Bilirubin 0.4 mg/dL (0.2-1.3); Total Protein 5.8 g/dL (6.3-8.2)
[2020-03-12] MEDS: IPRATROPIUM-ALBUTEROL 3 ML NEB INHALATION PRN ×2 (07:37→23:38)
[2020-03-12] MEDS ORDERED: methylPREDNISolone SOD SUCCI 125 MG/2 ML VIAL IV SCH (08:00)
[2020-03-12 08:43] LABS: Glucose,Whole Blood 154 mg/dL (75-99)
[2020-03-12] MEDS: INSULIN ASPART (NovoLOG) 100 UNIT/ML VIAL SQ SCH ×4 (08:50→21:09)
[2020-03-12] MEDS: ASPIRIN 81 MG PO SCH (08:52)
[2020-03-12] MEDS: amLODIPine 5 MG TAB PO SCH (08:52)
[2020-03-12] MEDS: LEVOTHYROXINE 100 MCG TAB PO SCH (08:52)
[2020-03-12] MEDS: ATORVASTATIN 40 MG TAB PO SCH (08:53)
[2020-03-12] MEDS: METOPROLOL TARTRATE 25 MG TAB PO SCH ×3 (08:54→21:09)
[2020-03-12] MEDS ORDERED: FUROSEMIDE 10 MG/ML 4 ML VIAL IV SCH (09:00)
[2020-03-12] MEDS ORDERED: SPIRONOLACTONE 25 MG TAB PO SCH (09:00)
[2020-03-12] MEDS ORDERED: predniSONE 20 MG TAB PO SCH (09:00)
[2020-03-12] MEDS: IPRATROPIUM-ALBUTEROL 3 ML NEB INHALATION SCH ×4 (09:05→18:39)
[2020-03-12] MEDS: HEPARIN SODIUM,PORCINE 5,000 UNIT/ML 1 ML VIAL SQ SCH ×3 (09:06→23:22)
[2020-03-12 10:30] LABS: Glucose,Whole Blood 134 mg/dL (75-99)
--- NOTE | 2020-03-12 11:42 | ECHOF ---
Referral Reason:CHF exacerbation MEASUREMENTS -------- HEIGHT: 132.1 cm WEIGHT: 113.4 kg BP: RVIDd: 4.4 cm (< 3.3) IVSd: 0.9 cm (0.6 - 1.1) LVIDd: 3.9 cm (3.9 - 5.3) LVPWd: 1.4 cm (0.6 - 1.1) IVSs: 1.5 cm LVIDs: 3.6 cm LVPWs: 1.5 cm RAP: 5.00 mmHg RVSP: 59.61 mmHg FINDINGS -------- Sinus rhythm. This was a techncally difficult study with suboptimal views, , Definity utilized for enhancement of i mages. The left ventricular size is normal. Left ventricular wall thickness is normal. Overall left vent ricular systolic function is low-normal with, an EF between 50 - 55 %. The right ventricle is severely enlarged. The right ventricular septal wall is flattened in diastol e and systole which is consistent with right ventricular volume and pressure overload. The left atrium is mildly dilated. The right atrial size is normal. The aortic valve was not well visualized. Mild mitral regurgitation is present. Moderate tricuspid regurgitation present. There is moderate to severe pulmonary hypertension. Trace/mild (physiologic) pulmonic regurgitation. The aortic root size is normal. There is a small, generalized pericardial effusion present. CONCLUSIONS -------- 1. Sinus rhythm. 2. This was a techncally difficult study with suboptimal views, , Definity utilized for enhancement o f images. 3. The left ventricular size is normal. 4. Left ventricular wall thickness is normal. 5. Overall left ventricular systolic function is low-normal with, an EF between 50 - 55 %. 6. The right ventricle is severely enlarged. 7. The right ventricular septal wall is flattened in diastole and systole which is consistent with r ight ventricular volume and pressure overload. 8. The left atrium is mildly dilated. 9. The right atrial size is normal. 10. The aortic valve was not well visualized. 11. Mild mitral regurgitation is present. 12. Moderate tricuspid regurgitation present. 13. There is moderate to severe pulmonary hypertension. 14. Trace/mild (physiologic) pulmonic regurgitation. 15. There is a small, generalized pericardial effusion present. GROUNDS PERSON: Maria Dolores Bonds RDCS
[2020-03-12] MEDS ORDERED: SODIUM POLYSTYRENE SULFONATE 15 GM/60 ML BOTTLE PO STA (11:46)
--- NOTE | 2020-03-12 12:02 | P.PN ---
Subjective Progress Note Date: 03/12/20 Principal diagnosis: Shortness of breath patient presented to the ED last night with shortness of breath. Her ABG was consistent with acute hypoxic and hypercapnic respiratory failure. Patient was placed on BiPAP and she was admitted to the ICU. Patient currently states that her breathing is better while on the BiPAP. She appears very lethargic. 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 Psych - patient appears lethargic - Labs CBC & Chem 7: 03/12/20 05:30 03/12/20 05:30 Labs: Abnormal Lab Results - Last 24 Hours (Table) 03/11/20 03/11/20 03/12/20 Range/Units 21:09 21:09 05:05 WBC 11.2 H (3.8-10.6) k/uL Hgb 9.8 L (11.4-16.0) gm/dL MCV 72.2 L (80.0-100.0) fL MCH 18.9 L (25.0-35.0) pg MCHC 26.2 L (31.0-37.0) g/dL RDW 18.6 H (11.5-15.5) % Neutrophils # 8.9 H (1.3-7.7) k/uL Lymphocytes # (1.0-4.8) k/uL ABG pH 7.12 L* (7.35-7.45) ABG pCO2 83 H* (35-45) mmHg ABG pO2 135 H (83-108) mmHg ABG HCO3 27 H (21-25) mmol/L ABG Total CO2 29 H (19-24) mmol/L ABG O2 Saturation 98.4 H (94-97) % Sodium 126 L (137-145) mmol/L Potassium 5.7 H (3.5-5.1) mmol/L Chloride 93 L (98-107) mmol/L BUN 42 H (7-17) mg/dL Glucose 133 H (74-99) mg/dL POC Glucose (mg/dL) (75-99) mg/dL Alkaline Phosphatase 141 H (38-126) U/L Total Protein 6.2 L (6.3-8.2) g/dL Albumin 3.4 L (3.5-5.0) g/dL 03/12/20 03/12/20 03/12/20 Range/Units 05:30 05:30 08:42 WBC (3.8-10.6) k/uL Hgb 9.4 L (11.4-16.0) gm/dL MCV 74.7 L (80.0-100.0) fL MCH 19.0 L (25.0-35.0) pg MCHC 25.4 L (31.0-37.0) g/dL RDW 18.6 H (11.5-15.5) % Neutrophils # (1.3-7.7) k/uL Lymphocytes # 0.6 L (1.0-4.8) k/uL ABG pH (7.35-7.45) ABG pCO2 (35-45) mmHg ABG pO2 (83-108) mmHg ABG HCO3 (21-25) mmol/L ABG Total CO2 (19-24) mmol/L ABG O2 Saturation (94-97) % Sodium 125 L (137-145) mmol/L Potassium 6.0 H (3.5-5.1) mmol/L Chloride 94 L (98-107) mmol/L BUN 45 H (7-17) mg/dL Glucose 147 H (74-99) mg/dL POC Glucose (mg/dL) 154 H (75-99) mg/dL Alkaline Phosphatase 137 H (38-126) U/L Total Protein 5.8 L (6.3-8.2) g/dL Albumin 3.2 L (3.5-5.0) g/dL 03/12/20 Range/Units 10:28 WBC (3.8-10.6) k/uL Hgb (11.4-16.0) gm/dL MCV (80.0-100.0) fL MCH (25.0-35.0) pg MCHC (31.0-37.0) g/dL RDW (11.5-15.5) % Neutrophils # (1.3-7.7) k/uL Lymphocytes # (1.0-4.8) k/uL ABG pH (7.35-7.45) ABG pCO2 (35-45) mmHg ABG pO2 (83-108) mmHg ABG HCO3 (21-25) mmol/L ABG Total CO2 (19-24) mmol/L ABG O2 Saturation (94-97) % Sodium (137-145) mmol/L Potassium (3.5-5.1) mmol/L Chloride (98-107) mmol/L BUN (7-17) mg/dL Glucose (74-99) mg/dL POC Glucose (mg/dL) 134 H (75-99) mg/dL Alkaline Phosphatase (38-126) U/L Total Protein (6.3-8.2) g/dL Albumin (3.5-5.0) g/dL Assessment and Plan Assessment: #Acute hypoxic hypercapnic respiratory failure #COPD exacerbation #Acute on chronic diastolic heart failure -Strict I's and O -Daily with -Resume IV Lasix 40 mg every 8 hours -IV steroids, DuoNeb scheduled and as needed, azithromycin -Check echocardiogram -Resume BiPAP -Patient states that she is on 2 L of oxygen as needed -Cardiology and pulmonology consult -Admit to ICU -Follow up COVID 19 results #Hyperkalemia -We'll give Kayexalate -Hold home medication of spironolactone -Repeat BMP in afternoon -Nephrology consult #Hypovolemic Hyponatremia -We'll continue with diuresing -Nephrology consult #Fungal infection and intertriginous places -Nystatin cream #Diabetes mellitus Type 2 -Hold metformin -Sliding-scale insulin #Hypothyroidism -Resume Synthroid DVT prophylaxis: Subcu heparin
--- NOTE | 2020-03-12 12:53 | P.CNPUL ---
History of Present Illness Consult date: 03/12/20 Reason for consult: dyspnea, COPD Chief complaint: Shortness of breath and swelling. History of present illness: This is a 69-year-old female with history of severe COPD, former smoker, chronic cor pulmonale, hypertension, hypothyroidism, morbid obesity, type 2 diabetes, diastolic congestive heart failure, patient was brought into the emergency room with a few days' history of increased shortness of breath and increase legs swelling. Patient actually was noted to have anasarca in the ER. Chest x-ray showed evidence of congestive heart failure, and small bilateral pleural effusions. ABG showed a pO2 of 135 pCO2 of 83 pH of 7.12 and this was on 36% FiO2. Patient was placed on BiPAP, and she was also noted to have hyponatremia and hyperkalemia. As well as significantly elevated proBNP level. Considering the findings, patient was placed on diuretics, bronchodilators, and I was asked to see her on consultation. Patient was evaluated in the ER, she is on BiPAP, not much history could be obtained from the patient. Review of Systems Constitutional: Denies chills, Denies fever Eyes: denies blurred vision, denies pain Ears, nose, mouth and throat: Denies headache, Denies sore throat Cardiovascular: Increased swelling bilaterally, and swelling seems to be quite diffuse Respiratory: As noted in HPI. Gastrointestinal: Denies abdominal pain, Denies diarrhea, Denies nausea, Denies vomiting Genitourinary: Denies dysuria, Denies hematuria Musculoskeletal: Denies myalgias Integumentary: Denies pruritus, Denies rash Neurological: Denies numbness, Denies weakness Psychiatric: Denies anxiety, Denies depression Endocrine: Denies fatigue, Denies weight change Past Medical History Past Medical History: Asthma, Chest Pain / Angina, COPD, Diabetes Mellitus, Hyperlipidemia, Hypertension, Osteoarthritis (OA), Respiratory Disorder, Skin Disorder, Thyroid Disorder Additional Past Medical History / Comment(s): Obesity (BMI 35) COPD, asthma, diabetes , depression, 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 The patient is also a smoker. The patient has chronic back pain. History of Any Multi-Drug Resistant Organisms: None Reported Past Surgical History: Appendectomy, Section, Cholecystectomy, Orthopedic Surgery, Tubal Ligation Additional Past Surgical History / Comment(s): LASER SX JETHRO EYES FOR GLAUCOMA. RT KNEE ARTHROSCOPY. UNDERWENT PERCUTANEOUS NEPHROSTOLITHOTOMY Past Anesthesia/Blood Transfusion Reactions: No Reported Reaction Past Psychological History: Anxiety, Depression Smoking Status: Current every day smoker Past Alcohol Use History: None Reported Past Drug Use History: None Reported - Past Family History Mother Additional Family Medical History / Comment(s): emphysema, heart valve problems, in her slepp. Brother(s) Family Medical History: Cancer Additional Family Medical History / Comment(s): from oral cancer Father Brother(s) Family Medical History: Cancer Additional Family Medical History / Comment(s): heart disease Medications and Allergies Home Medications Medication Instructions Recorded Confirmed Type Aspirin 81 mg PO DAILY 02/06/14 03/11/20 History Zafirlukast [Accolate] 20 mg PO BID 02/06/14 03/11/20 History ARIPiprazole [Abilify] 5 mg PO HS 02/07/18 03/11/20 History metFORMIN HCL [Glucophage] 1,000 mg PO BID 02/07/18 03/11/20 History traZODone HCL 100 mg PO HS PRN 02/07/18 03/11/20 History Atorvastatin [Lipitor] 40 mg PO DAILY #30 tab 09/10/18 03/11/20 Rx Metoprolol Tartrate [Lopressor] 25 mg PO TID #90 tab 09/10/18 03/11/20 Rx Cholecalciferol [Vitamin D3 (25 1,000 unit PO DAILY 09/03/19 03/11/20 History Mcg = 1000 Iu)] Furosemide [Lasix] 20 mg PO DAILY 09/03/19 03/11/20 History Levothyroxine Sodium [Synthroid] 200 mcg PO DAILY 09/03/19 03/11/20 History lisinopriL [Zestril] 10 mg PO DAILY 09/03/19 03/11/20 History amLODIPine [Norvasc] 5 mg PO DAILY 30 Days #30 tab 09/05/19 03/11/20 Rx Albuterol Sulfate [Ventolin HFA] 1 - 2 puff INHALATION RT-Q6H PRN 03/11/20 03/11/20 History Escitalopram [Lexapro] 20 mg PO DAILY 03/11/20 03/11/20 History HYDROcodone/APAP 7.5-325MG [Mobile 1 tab PO Q6H PRN 03/11/20 03/11/20 History 7.5-325] Spironolactone [Aldactone] 50 mg PO DAILY 03/11/20 03/11/20 History Allergies Allergy/AdvReac Type Severity Reaction Status Date / Time adhesive Allergy Rash/Hives Verified 03/11/20 21:54 ciprofloxacin [From Cipro] Allergy Rash/Hives Verified 03/11/20 21:54 ciprofloxacin HCl Allergy Rash/Hives Verified 03/11/20 21:54 [From Cipro] latex Allergy Rash/Hives Verified 03/11/20 21:54 nitrofurantoin Allergy Rash/Hives Verified 03/11/20 21:54 [From Macrobid] nitrofurantoin Allergy Rash/Hives Verified 03/11/20 21:54 macrocrystalline [From Macrobid] Penicillins Allergy Rash/Hives Verified 03/11/20 21:54 propoxyphene HCl Allergy Rash/Hives Verified 03/11/20 21:54 [From Darvon] propoxyphene napsylate Allergy Unknown Verified 03/11/20 21:54 [From Darvocet-N] Physical Exam Vitals: Vital Signs Temp Pulse Pulse Resp BP BP Pulse Ox 03/12/20 11:31 64 03/12/20 11:20 62 03/12/20 08:00 98.7 F 54 L 19 111/48 96 03/12/20 07:49 56 L 03/12/20 07:37 56 L 95 03/12/20 05:16 98 F 57 L 20 156/65 95 03/11/20 23:53 64 18 162/72 96 03/11/20 22:52 126/48 03/11/20 22:07 69 22 135/67 98 03/11/20 21:55 22 03/11/20 21:23 64 22 126/67 99 03/11/20 20:35 97.8 F 60 18 153/78 86 L Intake and Output 03/11/20 03/12/20 03/12/20 22:59 06:59 14:59 Other: Voiding Method Incontinent Weight 113.398 kg GENERAL EXAM: 69-year-old white female, obese, on BiPAP, arousable but tends to fall asleep easily. Lethargic HEENT: PERRLA, EOMI, no icterus. Short obese neck, no neck masses, no JVD. CHEST: No chest wall deformity. Symmetrical expansion. LUNGS: Crackles and wheezes noted bilaterally especially at the bases. CVS: Regular rate and rhythm, normal S1 and S2, no gallops, no murmurs, no rubs ABDOMEN: Obese, Soft, nontender. No hepatosplenomegaly, normal bowel sounds, no guarding or rigidity. Significant swelling of the abdominal wall/anasarca. And suspect ascites. EXTREMITIES: No clubbing, 3+ bipedal edema. MUSCULOSKELETAL: Muscle strength and tone normal. SPINE: No scoliosis or deformity SKIN: No rashes CENTRAL NERVOUS SYSTEM: Lethargic but arousable, follows simple instructions, not a great historian. PSYCHIATRIC: Blunted mood and affect, lethargic. Results Chest x-ray as noted in HPI. - Laboratory Findings CBC and BMP: 03/12/20 05:30 03/12/20 05:30 ABG ABG pH 7.12 (7.35-7.45) L* 03/12/20 05:05 ABG pCO2 83 mmHg (35-45) H* 03/12/20 05:05 ABG pO2 135 mmHg (83-108) H 03/12/20 05:05 ABG O2 Saturation 98.4 % (94-97) H 03/12/20 05:05 PT/INR, D-dimer PT 11.2 sec (9.0-12.0) 03/11/20 21:09 INR 1.1 (<1.2) 03/11/20 21:09 Abnormal lab findings: Abnormal Labs 03/11/20 03/11/20 03/12/20 21:09 21:09 05:05 WBC 11.2 H Hgb 9.8 L MCV 72.2 L MCH 18.9 L MCHC 26.2 L RDW 18.6 H Neutrophils # 8.9 H Lymphocytes # ABG pH 7.12 L* ABG pCO2 83 H* ABG pO2 135 H ABG HCO3 27 H ABG Total CO2 29 H ABG O2 Saturation 98.4 H Sodium 126 L Potassium 5.7 H Chloride 93 L BUN 42 H Glucose 133 H POC Glucose (mg/dL) Alkaline Phosphatase 141 H Total Protein 6.2 L Albumin 3.4 L 03/12/20 03/12/20 03/12/20 05:30 05:30 08:42 WBC Hgb 9.4 L MCV 74.7 L MCH 19.0 L MCHC 25.4 L RDW 18.6 H Neutrophils # Lymphocytes # 0.6 L ABG pH ABG pCO2 ABG pO2 ABG HCO3 ABG Total CO2 ABG O2 Saturation Sodium 125 L Potassium 6.0 H Chloride 94 L BUN 45 H Glucose 147 H POC Glucose (mg/dL) 154 H Alkaline Phosphatase 137 H Total Protein 5.8 L Albumin 3.2 L 03/12/20 10:28 WBC Hgb MCV MCH MCHC RDW Neutrophils # Lymphocytes # ABG pH ABG pCO2 ABG pO2 ABG HCO3 ABG Total CO2 ABG O2 Saturation Sodium Potassium Chloride BUN Glucose POC Glucose (mg/dL) 134 H Alkaline Phosphatase Total Protein Albumin - Diagnostic Findings Chest x-ray: image reviewed (As noted in HPI.) Assessment and Plan Assessment: Impression: Acute hypoxic and hypercapnic respiratory failure, multifactorial secondary to underlying COPD with acute COPD exacerbation and acute on chronic diastolic congestive heart failure. Acute exacerbation of COPD. Patient has normally FEV1 of 42% DLCO is 45%. Chronic cor pulmonale and worsening right sided congestive heart failure. Hypothyroidism. Severe pulmonary hypertension. Degenerative joint disease. Type 2 diabetes. Former smoker. History of nephrolithiasis. Recommendation: Agree with the present treatment plan including BiPAP, and adjust settings accordingly based on the next ABG. Agree with admission to ICU. Continue diuretics and increased the dose to 40 mg every 8 hours. Resume home meds including bronchodilators, Continue methylprednisolone. GI and DVT prophylaxis We will continue to follow. Time with Patient: Greater than 30
[2020-03-12] MEDS: lisinopriL 10 MG TAB PO SCH (13:28)
[2020-03-12] MEDS: AZITHROMYCIN 500 MG TAB PO SCH (13:30)
[2020-03-12] MEDS: ESCITALOPRAM 20 MG TAB PO SCH (13:30)
[2020-03-12] MEDS: NYSTATIN 100,000UNIT/GM CREAM 30 GM TUBE TOPICAL SCH ×3 (13:31→21:09)
[2020-03-12 15:23] LABS: ABG Base Excess -2.1 mmol/L; ABG HCO3 26 mmol/L (21-25); ABG Oxygen Saturation 94.6 % (94-97); ABG PCO2 65 mmHg (35-45); ABG PH 7.21 (7.35-7.45); ABG PO2 83 mmHg (83-108); ABG TCO2 28 mmol/L (19-24); Allen Test Performed? Yes
[2020-03-12 15:52] LABS: Calcium 8.7 mg/dL (8.4-10.2); Potassium 5.8 mmol/L (3.5-5.1)
[2020-03-12] MEDS: methylPREDNISolone SOD SUCCI 125 MG/2 ML VIAL IV SCH ×2 (16:10→23:23)
[2020-03-12] MEDS: FUROSEMIDE 10 MG/ML 4 ML VIAL IV SCH ×2 (16:11→23:23)
[2020-03-12 17:16] LABS: Glucose,Whole Blood 170 mg/dL (75-99)
[2020-03-12 18:50] LABS: Hemoglobin A1C 7.4 % (4.0-6.0)
[2020-03-12 20:07] LABS: Glucose,Whole Blood 170 mg/dL (75-99)
[2020-03-12] MEDS: ARIPiprazole 5 MG TAB PO SCH (21:09)
[2020-03-12] MEDS: MONTELUKAST 10 MG TAB PO SCH (21:09)
[2020-03-13] MEDS: IPRATROPIUM-ALBUTEROL 3 ML NEB INHALATION PRN (03:36)
[2020-03-13 05:36] LABS: Anisocytosis Slight; HCT 34.8 % (34.0-46.0); HGB 8.9 gm/dL (11.4-16.0); Hypochromasia Marked; MCH 18.8 pg (25.0-35.0); MCHC 25.6 g/dL (31.0-37.0); MCV 73.4 fL (80.0-100.0); Mean Platelet Volume 6.4; Microcytosis Moderate; Platelet Count 372 k/uL (150-450); RBC 4.75 m/uL (3.80-5.40); RDW 18.2 % (11.5-15.5); WBC 3.1 k/uL (3.8-10.6)
[2020-03-13 05:40] LABS: Calcium 8.4 mg/dL (8.4-10.2); Magnesium 1.7 mg/dL (1.6-2.3); Potassium 5.2 mmol/L (3.5-5.1)
[2020-03-13] MEDS: LEVOTHYROXINE 100 MCG TAB PO SCH (05:45)
[2020-03-13 06:04] LABS: Lymphocytes # (M) 0.09 k/uL (1.0-4.8); Monocytes # (M) 0.12 k/uL (0-1.0); Neutrophils # (M) 2.88 k/uL (1.3-7.7); Neutrophils % (M) 93 %; Nucleated Red Blood Cells 0 /100 WBC (0-0); Total Cells Counted 100
[2020-03-13 06:05] LABS: Anisocytosis (M) Present
--- NOTE | 2020-03-13 07:10 | XR ---
EXAMINATION TYPE: XR chest 1V portable DATE OF EXAM: 03/13/2020 HISTORY: assess lungs. REFERENCE: Previous study dated 03/11/2020. FINDINGS: The study is rotated. The heart is enlarged. There is vascular congestion and mild interstitial change. This has improved s lightly. There is developing airspace disease in the right lung base which may represent confluent ed milly or pneumonia. IMPRESSION: 1. ROTATED STUDY. 2. IMPROVING CHANGES OF PULMONARY EDEMA. 3. DEVELOPING RIGHT BASILAR AIRSPACE DISEASE MAY REPRESENT CONFLUENT EDEMA OR PNEUMONIA.
[2020-03-13] MEDS: INSULIN ASPART (NovoLOG) 100 UNIT/ML VIAL SQ SCH ×4 (07:42→20:41)
[2020-03-13] MEDS: IPRATROPIUM-ALBUTEROL 3 ML NEB INHALATION SCH ×4 (07:48→19:42)
[2020-03-13] MEDS: methylPREDNISolone SOD SUCCI 125 MG/2 ML VIAL IV SCH ×3 (09:16→23:48)
[2020-03-13] MEDS: AZITHROMYCIN 500 MG TAB PO SCH (09:17)
[2020-03-13] MEDS: METOPROLOL TARTRATE 25 MG TAB PO SCH ×3 (09:17→20:42)
[2020-03-13] MEDS: ESCITALOPRAM 20 MG TAB PO SCH (09:17)
[2020-03-13] MEDS: HEPARIN SODIUM,PORCINE 5,000 UNIT/ML 1 ML VIAL SQ SCH ×3 (09:17→23:48)
[2020-03-13] MEDS: lisinopriL 10 MG TAB PO SCH (09:17)
[2020-03-13] MEDS: FUROSEMIDE 10 MG/ML 4 ML VIAL IV SCH (09:17)
[2020-03-13] MEDS: ASPIRIN 81 MG PO SCH (09:17)
[2020-03-13] MEDS: amLODIPine 5 MG TAB PO SCH (09:17)
[2020-03-13] MEDS: ATORVASTATIN 40 MG TAB PO SCH (09:17)
[2020-03-13] MEDS: NYSTATIN 100,000UNIT/GM CREAM 30 GM TUBE TOPICAL SCH ×3 (09:18→20:42)
--- NOTE | 2020-03-13 11:08 | P.PN ---
Subjective Progress Note Date: 03/13/20 Principal diagnosis: Shortness of breath Patient this morning is awake and alert. She is on 2 L nasal cannula. Patient states that her breathing has improved. She is requesting to lie down flat. I discussed with the patient that this would increase her risk of aspiration. Shakeel little patient states that she will not get pneumonia and she doesn't really care about her breathing or shortness of breath and she just wants to lie down flat. Per nurse patient has been urinating well. Objective - Vital Signs Vital signs: Vital Signs Temp 97.3 F L 03/13/20 08:00 Pulse 73 03/13/20 10:00 Resp 9 L 03/13/20 10:00 BP 116/58 03/13/20 10:00 Pulse Ox 92 L 03/13/20 10:00 Intake & Output 03/12/20 03/13/20 03/13/20 18:59 06:59 18:59 Intake Total 240 240 Output Total 1025 1370 210 Balance -1025 -1130 30 Weight 113.398 kg 108.8 kg Intake: Oral 240 240 Output: Urine 1025 1370 210 Other: Voiding Method Indwelling Catheter Indwelling Catheter Indwelling Catheter # Bowel Movements 1 - Exam General examination - Alert and Oriented 3 in no acute distress, Heart - + S1S2 no murmurs Lungs - diffuse rhonchi Abdomen fungal infection in the pannus area, distended, no tenderness to palpation Extremities - +1 pitting edema in bilateral lower extremities 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 Psych - calm - Labs CBC & Chem 7: 03/13/20 04:37 03/13/20 04:37 Labs: Abnormal Lab Results - Last 24 Hours (Table) 03/12/20 03/12/20 03/12/20 Range/Units 05:30 15:18 15:21 WBC (3.8-10.6) k/uL Hgb (11.4-16.0) gm/dL MCV (80.0-100.0) fL MCH (25.0-35.0) pg MCHC (31.0-37.0) g/dL RDW (11.5-15.5) % Lymphocytes # (Manual) (1.0-4.8) k/uL ABG pH 7.21 L (7.35-7.45) ABG pCO2 65 H (35-45) mmHg ABG HCO3 26 H (21-25) mmol/L ABG Total CO2 28 H (19-24) mmol/L Sodium 126 L (137-145) mmol/L Potassium 5.8 H (3.5-5.1) mmol/L Chloride 94 L (98-107) mmol/L BUN 47 H (7-17) mg/dL Glucose 131 H (74-99) mg/dL POC Glucose (mg/dL) (75-99) mg/dL Hemoglobin A1c 7.4 H (4.0-6.0) % 03/12/20 03/12/20 03/13/20 Range/Units 17:14 20:04 04:37 WBC 3.1 L (3.8-10.6) k/uL Hgb 8.9 L (11.4-16.0) gm/dL MCV 73.4 L (80.0-100.0) fL MCH 18.8 L (25.0-35.0) pg MCHC 25.6 L (31.0-37.0) g/dL RDW 18.2 H (11.5-15.5) % Lymphocytes # (Manual) 0.09 L (1.0-4.8) k/uL ABG pH (7.35-7.45) ABG pCO2 (35-45) mmHg ABG HCO3 (21-25) mmol/L ABG Total CO2 (19-24) mmol/L Sodium (137-145) mmol/L Potassium (3.5-5.1) mmol/L Chloride (98-107) mmol/L BUN (7-17) mg/dL Glucose (74-99) mg/dL POC Glucose (mg/dL) 170 H 170 H (75-99) mg/dL Hemoglobin A1c (4.0-6.0) % 03/13/20 Range/Units 04:37 WBC (3.8-10.6) k/uL Hgb (11.4-16.0) gm/dL MCV (80.0-100.0) fL MCH (25.0-35.0) pg MCHC (31.0-37.0) g/dL RDW (11.5-15.5) % Lymphocytes # (Manual) (1.0-4.8) k/uL ABG pH (7.35-7.45) ABG pCO2 (35-45) mmHg ABG HCO3 (21-25) mmol/L ABG Total CO2 (19-24) mmol/L Sodium 127 L (137-145) mmol/L Potassium 5.2 H (3.5-5.1) mmol/L Chloride 95 L (98-107) mmol/L BUN 47 H (7-17) mg/dL Glucose 129 H (74-99) mg/dL POC Glucose (mg/dL) (75-99) mg/dL Hemoglobin A1c (4.0-6.0) % Assessment and Plan Assessment: #Acute hypoxic hypercapnic respiratory failure #COPD exacerbation #Acute on chronic diastolic heart failure -Strict I's and O -Daily with -Resume IV Lasix 40 mg every 8 hours -IV steroids, DuoNeb scheduled and as needed, azithromycin -Echocardiogram shows elevated right-sided filling pressure -Patient is currently on 2 L nasal cannula. Patient states that she is on 2 L of oxygen as needed -Cardiology and pulmonology on board -Admit to ICU -Follow up COVID 19 results #Hyperkalemia -Hold home medication of spironolactone -Repeat BMP in afternoon -Nephrology consult -Improving #Hypovolemic Hyponatremia -We'll continue with diuresing -Nephrology consult -Improving #Fungal infection and intertriginous places -Nystatin cream #Diabetes mellitus Type 2 -Hold metformin -Sliding-scale insulin #Hypothyroidism -Resume Synthroid DVT prophylaxis: Subcu heparin
--- NOTE | 2020-03-13 11:34 | P.PN ---
Subjective Progress Note Date: 03/13/20 Principal diagnosis: Acute on chronic hypoxic and hypercapnic arrest or failure This is a 69-year-old female with history of severe COPD, former smoker, chronic cor pulmonale, hypertension, hypothyroidism, morbid obesity, type 2 diabetes, diastolic congestive heart failure, patient was brought into the emergency room with a few days' history of increased shortness of breath and increase legs swelling. Patient actually was noted to have anasarca in the ER. Chest x-ray showed evidence of congestive heart failure, and small bilateral pleural effusions. ABG showed a pO2 of 135 pCO2 of 83 pH of 7.12 and this was on 36% FiO2. Patient was placed on BiPAP, and she was also noted to have hyponatremia and hyperkalemia. As well as significantly elevated proBNP level. Considering the findings, patient was placed on diuretics, bronchodilators, and I was asked to see her on consultation. Patient was evaluated in the ER, she is on BiPAP, not much history could be obtained from the patient. Reevaluated today in ICU on 03/13/20, patient remains in the ICU, she was on BiPAP through the night, however this morning she was switched to a nasal cannula and she is presently at 2 L/m. Patient seems to be comfortable, she is more awake, denies any cough wheezing or shortness of breath denies any chest pain. Remains on Lasix at 40 mg IV push every 8 hours, she is also on bro nchodilators, steroids, continues to have significant swelling/anasarca. Patient has been in negative balance over the last 24 hours around 2 L. CBC is showing WBC of 3.1 hemoglobin is 8.9 sodium is 127 potassium is 5.2, BUN is 47 creatinine is improved down to 0.87 in spite of diuresis. Objective - Vital Signs Vital signs: Vital Signs Temp 97.3 F L 03/13/20 08:00 Pulse 73 03/13/20 10:00 Resp 9 L 03/13/20 10:00 BP 116/58 03/13/20 10:00 Pulse Ox 92 L 03/13/20 10:00 Intake & Output 03/12/20 03/13/20 03/13/20 18:59 06:59 18:59 Intake Total 240 240 Output Total 1025 1370 210 Balance -1025 -1130 30 Weight 113.398 kg 108.8 kg Intake: Oral 240 240 Output: Urine 1025 1370 210 Other: Voiding Method Indwelling Catheter Indwelling Catheter Indwelling Catheter # Bowel Movements 1 - Exam GENERAL EXAM: 69-year-old white female, on 2 L nasal cannula, in no distress HEENT: PERRLA, EOMI, no icterus. Short obese neck, no neck masses, no JVD. CHEST: No chest wall deformity. Symmetrical expansion. LUNGS: Symmetrical chest expansion, fine crackles at the bases. CVS: Regular rate and rhythm, normal S1 and S2, no gallops, no murmurs, no rubs ABDOMEN: Obese, Soft, nontender. No hepatosplenomegaly, normal bowel sounds, no guarding or rigidity. Significant swelling of the abdominal wall/anasarca. And suspect ascites. EXTREMITIES: No clubbing, 3+ bipedal edema. MUSCULOSKELETAL: Muscle strength and tone normal. SPINE: No scoliosis or deformity SKIN: No rashes CENTRAL NERVOUS SYSTEM: Alert and oriented 3, no gross focal neurologic deficits. PSYCHIATRIC: Blunted affect, normal mental status examination.. - Labs CBC & Chem 7: 03/13/20 04:37 03/13/20 04:37 Labs: Abnormal Lab Results - Last 24 Hours (Table) 03/12/20 03/12/20 03/12/20 Range/Units 05:30 15:18 15:21 WBC (3.8-10.6) k/uL Hgb (11.4-16.0) gm/dL MCV (80.0-100.0) fL MCH (25.0-35.0) pg MCHC (31.0-37.0) g/dL RDW (11.5-15.5) % Lymphocytes # (Manual) (1.0-4.8) k/uL ABG pH 7.21 L (7.35-7.45) ABG pCO2 65 H (35-45) mmHg ABG HCO3 26 H (21-25) mmol/L ABG Total CO2 28 H (19-24) mmol/L Sodium 126 L (137-145) mmol/L Potassium 5.8 H (3.5-5.1) mmol/L Chloride 94 L (98-107) mmol/L BUN 47 H (7-17) mg/dL Glucose 131 H (74-99) mg/dL POC Glucose (mg/dL) (75-99) mg/dL Hemoglobin A1c 7.4 H (4.0-6.0) % 03/12/20 03/12/20 03/13/20 Range/Units 17:14 20:04 04:37 WBC 3.1 L (3.8-10.6) k/uL Hgb 8.9 L (11.4-16.0) gm/dL MCV 73.4 L (80.0-100.0) fL MCH 18.8 L (25.0-35.0) pg MCHC 25.6 L (31.0-37.0) g/dL RDW 18.2 H (11.5-15.5) % Lymphocytes # (Manual) 0.09 L (1.0-4.8) k/uL ABG pH (7.35-7.45) ABG pCO2 (35-45) mmHg ABG HCO3 (21-25) mmol/L ABG Total CO2 (19-24) mmol/L Sodium (137-145) mmol/L Potassium (3.5-5.1) mmol/L Chloride (98-107) mmol/L BUN (7-17) mg/dL Glucose (74-99) mg/dL POC Glucose (mg/dL) 170 H 170 H (75-99) mg/dL Hemoglobin A1c (4.0-6.0) % 03/13/20 Range/Units 04:37 WBC (3.8-10.6) k/uL Hgb (11.4-16.0) gm/dL MCV (80.0-100.0) fL MCH (25.0-35.0) pg MCHC (31.0-37.0) g/dL RDW (11.5-15.5) % Lymphocytes # (Manual) (1.0-4.8) k/uL ABG pH (7.35-7.45) ABG pCO2 (35-45) mmHg ABG HCO3 (21-25) mmol/L ABG Total CO2 (19-24) mmol/L Sodium 127 L (137-145) mmol/L Potassium 5.2 H (3.5-5.1) mmol/L Chloride 95 L (98-107) mmol/L BUN 47 H (7-17) mg/dL Glucose 129 H (74-99) mg/dL POC Glucose (mg/dL) (75-99) mg/dL Hemoglobin A1c (4.0-6.0) % Assessment and Plan Assessment: Impression: Acute on chronic hypoxic and hypercapnic respiratory failure, multifactorial secondary to underlying COPD with acute COPD exacerbation and acute on chronic diastolic congestive heart failure. Acute exacerbation of COPD. Patient has normally FEV1 of 42% DLCO is 45%. Chronic cor pulmonale and worsening right sided congestive heart failure. Hypothyroidism. Severe pulmonary hypertension. Degenerative joint disease. Type 2 diabetes. Former smoker. History of nephrolithiasis. Recommendation: Continue diuretics. Use BiPAP as needed and transition to nasal cannula as needed Continue to monitor in the ICU Continue diuretics and increased the dose to 40 mg every 8 hours. Continue bronchodilators. Continue methylprednisolone. GI and DVT prophylaxis Improved since yesterday, we'll continue to follow Time with Patient: Less than 30
[2020-03-13] MEDS: FUROSEMIDE 100 MG in SODIUM CHLORIDE 0.9% 90 ML IV SCH (11:39)
[2020-03-13 11:48] LABS: Glucose,Whole Blood 153 mg/dL (75-99)
--- NOTE | 2020-03-13 14:20 | CONS ---
CONSULTATION REASON FOR CONSULT: Renal failure. HISTORY OF PRESENT ILLNESS: The patient is a 69-year-old female who was admitted to the hospital on March 11 with complaints of shortness of breath and increased lower extremity edema. The patient was found to be in congestive heart failure, mainly diastolic heart failure and is currently being diuresed. She states overall she is feeling better. She denied any previous history of kidney diseases. No history of fever, chills, nausea, vomiting, abdominal pain. Serum creatinine was 0.9, peaked to 1.03, now 0.87. Serum potassium was elevated at 6 yesterday, it is down to 5.2 now. The patient's sodium has also been low at 125-126 mEq/L. PAST MEDICAL HISTORY: Hypertension, asthma, COPD, type 2 diabetes, hyperlipidemia, osteoarthritis, hypothyroidism, obesity, glaucoma, chronic back pain, nephrolithiasis, history of lower extremity cellulitis. PAST SURGICAL HISTORY: Appendectomy, , cholecystectomy, laser surgery, right knee arthroscopy, nephrostolithotomy. SOCIAL HISTORY: Patient is a smoker. No history of drug abuse or alcohol abuse. MEDICATIONS: Medications prior to admission included Accolate, Abilify, Glucophage, Lipitor, Lopressor, vitamin D, Lasix, Synthroid, Zestril, Norvasc, Lexapro, Aldactone. ALLERGIES: INCLUDE TAPE, CIPRO, LATEX, MACROBID, PENICILLIN, DARVON. ALL OF THESE CAUSE RASH AND HIVES. REVIEW OF SYSTEMS: As per HPI. Other systems negative. PHYSICAL EXAMINATION: Patient is comfortable, awake, alert, oriented x3, not in any acute distress. Blood pressure is 123/48 heart rate 70 per minute, she is afebrile. Examination of the heart S1, S2. Examination of the lungs, bilateral breath sounds are heard. Abdomen is soft, nontender, obese. Bilateral crackles are heard as well in the lungs. Examination of lower extremities shows edema 3+ bilaterally. 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 LAB: Show sodium of 127, potassium 5.2, chloride 95, CO2 is 25, BUN 47, creatinine 0.87, hemoglobin of 8.9 g/dL. UA is not available. ASSESSMENT: 1. Acute kidney injury, mostly cardiorenal, currently improved with diuresis. 2. Hyperkalemia associated with use of JERONIMO inhibitors in the setting of mild acute kidney injury. Not sure if the patient had urine retention. Currently she has a Newton catheter in place. 3. Heart failure, diastolic, acute on top of chronic, ejection fraction 50-55%. 4. Elevated right heart pressures with moderate to severe pulmonary hypertension. 5. Type 2 diabetes. 6. Hypertension, currently controlled. 7. Chronic obstructive pulmonary disease. PLAN: Switch to Lasix drip. May continue with the JERONIMO inhibitors. Decrease the dose of antihypertensive medications. I will discontinue the Norvasc for now as it is contributing to the edema as well. May continue with the current dose of lisinopril and decrease further if blood pressure remains on the lower side. I would avoid use of Kayexalate. Expect improvement in potassium with diuresis in assessment also add hyper hypovolemic hyponatremia. Expect improvement within increase diuresis in plan add check urinalysis thank you for this consultation. We will continue to follow the patient with you during her hospitalization. MMODL / IJN: [id number] /
--- NOTE | 2020-03-13 16:11 | P.CRDCN ---
History of Present Illness History of present illness: This is Dr. Oh dictating a consult on this patient The patient was interviewed and examined IMPRESSION / ASSESSMENT: Severe pulmonary hypertension with history failure acute and chronic Severe COPD Hypertension Preserved LV systolic function PLAN: Continue IV Lasix Antihypertensive therapy to continue Statins and aspirin to continue from a cardiac standpoint HPI 69-year-old female presenting with shortness of breath and swelling for the last 2-3 days. She does wear oxygen at night She denied any chest discomfort no loss of consciousness ROS: No fever chills or rigors, no cough, phlegm or expectoration, no nausea, vomiting or diarrhea, no hematuria, dysuria, no musculoskeletal complaints, no strokes or seizures, no skin lesions. EXAMINATION: Pulse rate in the 60s few short of breath at rest blood pressure 102 53 mmHg Breath sounds are reduced bilaterally Loud P2 Abdomen is soft Bilateral lower extremity edema Anasarca REVIEW OF LABS, ECG & MEDICAL DATA Twelve-lead ECG shows sinus rhythm with low voltage 2-D echo shows preserved LV systolic function but elevated RV systolic pressures with volume and pressure overload of the right ventricle Past Medical History Past Medical History: Asthma, Chest Pain / Angina, COPD, Diabetes Mellitus, Hyperlipidemia, Hypertension, Osteoarthritis (OA), Respiratory Disorder, Skin Disorder, Thyroid Disorder Additional Past Medical History / Comment(s): Obesity (BMI 35) COPD, asthma, diabetes , depression, 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 The patient is also a smoker. The patient has chronic back pain. History of Any Multi-Drug Resistant Organisms: None Reported Past Surgical History: Appendectomy, Section, Cholecystectomy, Orthopedic Surgery, Tubal Ligation Additional Past Surgical History / Comment(s): LASER SX JETHRO EYES FOR GLAUCOMA. RT KNEE ARTHROSCOPY. UNDERWENT PERCUTANEOUS NEPHROSTOLITHOTOMY Past Anesthesia/Blood Transfusion Reactions: No Reported Reaction Past Psychological History: Anxiety, Depression Smoking Status: Current every day smoker Past Alcohol Use History: None Reported Past Drug Use History: None Reported - Past Family History Mother Additional Family Medical History / Comment(s): emphysema, heart valve problems, in her slepp. Brother(s) Family Medical History: Cancer Additional Family Medical History / Comment(s): from oral cancer Father Brother(s) Family Medical History: Cancer Additional Family Medical History / Comment(s): heart disease Medications and Allergies Home Medications Medication Instructions Recorded Confirmed Type Aspirin 81 mg PO DAILY 02/06/14 03/11/20 History Zafirlukast [Accolate] 20 mg PO BID 02/06/14 03/11/20 History ARIPiprazole [Abilify] 5 mg PO HS 02/07/18 03/11/20 History metFORMIN HCL [Glucophage] 1,000 mg PO BID 02/07/18 03/11/20 History traZODone HCL 100 mg PO HS PRN 02/07/18 03/11/20 History Atorvastatin [Lipitor] 40 mg PO DAILY #30 tab 09/10/18 03/11/20 Rx Metoprolol Tartrate [Lopressor] 25 mg PO TID #90 tab 09/10/18 03/11/20 Rx Cholecalciferol [Vitamin D3 (25 1,000 unit PO DAILY 09/03/19 03/11/20 History Mcg = 1000 Iu)] Furosemide [Lasix] 20 mg PO DAILY 09/03/19 03/11/20 History Levothyroxine Sodium [Synthroid] 200 mcg PO DAILY 09/03/19 03/11/20 History lisinopriL [Zestril] 10 mg PO DAILY 09/03/19 03/11/20 History amLODIPine [Norvasc] 5 mg PO DAILY 30 Days #30 tab 09/05/19 03/11/20 Rx Albuterol Sulfate [Ventolin HFA] 1 - 2 puff INHALATION RT-Q6H PRN 03/11/2002/18 History Escitalopram [Lexapro] 20 mg PO DAILY 03/11/20 03/11/20 History HYDROcodone/APAP 7.5-325MG [[place] 1 tab PO Q6H PRN 03/11/20 03/11/20 History 7.5-325] Spironolactone [Aldactone] 50 mg PO DAILY 03/11/20 03/11/20 History Allergies Allergy/AdvReac Type Severity Reaction Status Date / Time adhesive Allergy Rash/Hives Verified 03/11/20 21:54 ciprofloxacin [From Cipro] Allergy Rash/Hives Verified 03/11/20 21:54 ciprofloxacin HCl Allergy Rash/Hives Verified 03/11/20 21:54 [From Cipro] latex Allergy Rash/Hives Verified 03/11/20 21:54 nitrofurantoin Allergy Rash/Hives Verified 03/11/20 21:54 [From Macrobid] nitrofurantoin Allergy Rash/Hives Verified 03/11/20 21:54 macrocrystalline [From Macrobid] Penicillins Allergy Rash/Hives Verified 03/11/20 21:54 propoxyphene HCl Allergy Rash/Hives Verified 03/11/20 21:54 [From Darvon] propoxyphene napsylate Allergy Unknown Verified 03/11/20 21:54 [From Darvocet-N] Physical Exam Vitals: Vital Signs Temp Pulse Resp BP Pulse Ox 03/13/20 16:05 62 95 03/13/20 15:00 60 16 123/53 96 03/13/20 14:00 62 27 H 112/53 97 03/13/20 13:00 62 24 99/48 97 03/13/20 12:49 62 03/13/20 12:36 56 L 03/13/20 12:00 62 20 120/58 94 L 03/13/20 11:00 70 29 H 82/47 95 03/13/20 10:00 73 9 L 116/58 92 L 03/13/20 09:00 70 21 123/48 92 L 03/13/20 08:00 97.3 F L 70 20 120/47 98 03/13/20 07:50 68 03/13/20 07:00 62 21 124/59 99 03/13/20 06:00 62 16 128/62 97 03/13/20 05:00 62 18 119/57 96 03/13/20 04:00 97.2 F L 58 L 17 145/63 94 L 03/13/20 03:48 60 03/13/20 03:37 61 03/13/20 03:00 59 L 23 141/64 96 03/13/20 02:00 53 L 17 128/57 94 L 03/13/20 01:00 56 L 20 129/55 93 L 03/13/20 00:19 56 L 23 97 03/13/20 00:00 97.6 F 61 20 142/63 96 03/12/20 23:56 57 L 03/12/20 23:38 55 L 07/24/20 23:00 60 20 127/55 97 03/12/20 22:00 64 21 142/54 93 L 03/12/20 21:00 57 L 22 164/69 94 L 03/12/20 20:00 98.0 F 60 21 151/58 95 03/12/20 19:00 67 21 153/67 95 03/12/20 18:55 59 L 21 03/12/20 18:39 66 20 03/12/20 18:00 67 22 131/55 94 L 03/12/20 17:00 52 L 19 143/71 91 L Intake and Output 03/13/20 03/13/20 03/13/20 06:59 14:59 22:59 Intake Total 240 260 40.75 Output Total 935 565 80 Balance -695 -305 -39.25 Intake: IV 20 20 0.9 @ KVO 20 20 Intake, IV Titration 20.75 Amount Furosemide 100 mg In 20.75 Sodium Chloride 0.9% 90 ml @ 5 MG/HR 5 mls/hr IV .Q20H [facility] Rx#:[id number] Oral 240 240 Output: Urine 935 565 80 Other: Voiding Method Indwelling Catheter Indwelling Catheter Indwelling Catheter # Bowel Movements 1 Weight 108.8 kg Results 03/13/20 04:37 03/13/20 04:37 CBC 03/13/20 Range/Units 04:37 WBC 3.1 L (3.8-10.6) k/uL RBC 4.75 (3.80-5.40) m/uL Hgb 8.9 L (11.4-16.0) gm/dL Hct 34.8 (34.0-46.0) % Plt Count 372 (150-450) k/uL Comprehensive Metabolic Panel 03/13/20 Range/Units 04:37 Sodium 127 L (137-145) mmol/L Potassium 5.2 H (3.5-5.1) mmol/L Chloride 95 L (98-107) mmol/L Carbon Dioxide 25 (22-30) mmol/L BUN 47 H (7-17) mg/dL Creatinine 0.87 (0.52-1.04) mg/dL Glucose 129 H (74-99) mg/dL Calcium 8.4 (8.4-10.2) mg/dL Current Medications Generic Name Dose Route Start Last Admin Trade Name Freq PRN Reason Stop Dose Admin Acetaminophen 650 mg 03/11/20 23:31 Tylenol Tab PO Q6HR PRN Mild Pain or Fever > 100.5 Albuterol/Ipratropium 3 ml 03/12/20 02:30 03/13/20 03:36 Duoneb 0.5 Mg-3 Mg/3 Ml Soln INHALATION 3 ml RT-Q2H PRN Administration Shortness Of Breath Or Wheezing Albuterol/Ipratropium 3 ml 03/12/20 08:00 03/13/20 16:03 Duoneb 0.5 Mg-3 Mg/3 Ml Soln INHALATION 3 ml RT-QID KIET Administration Aripiprazole 5 mg 03/12/20 21:00 03/12/20 21:09 Abilify PO 5 mg HS KIET Administration Aspirin 81 mg 03/12/20 09:00 03/13/20 09:17 Aspirin PO 81 mg DAILY KIET Administration Atorvastatin Calcium 40 mg 03/12/20 09:00 03/13/20 09:17 Lipitor PO 40 mg DAILY KIET Administration Azithromycin 500 mg 03/12/20 09:00 03/13/20 09:17 Zithromax PO 500 mg DAILY KIET Administration Escitalopram Oxalate 20 mg 03/12/20 09:00 03/13/20 09:17 Lexapro PO 20 mg DAILY KIET Administration Heparin Sodium (Porcine) 5,000 unit 03/12/20 08:00 03/13/20 09:17 Heparin SQ 5,000 unit Q8HR K[facility] Administration Furosemide 100 mg/ Sodium 100 mls @ 5 mls/hr 03/13/20 11:00 03/13/20 15:48 Chloride IV 10 mg/hr .Q20H KIET 10 mls/hr Infusion 5 MG/HR Insulin Aspart 0 unit 03/12/20 07:30 03/13/20 11:52 Novolog SQ 2 unit ACHS KIET Administration Protocol Levothyroxine Sodium 200 mcg 03/12/20 06:30 03/13/20 05:45 Synthroid PO 200 mcg DAILY@0630 KIET Administration Lisinopril 10 mg 03/12/20 09:00 03/13/20 09:17 Zestril PO 10 mg DAILY KIET Administration Methylprednisolone Sodium Succinate 60 mg 03/12/20 16:00 03/13/20 09:16 Solu-Medrol IV 60 mg Q8HR KIET Administration Metoprolol Tartrate 25 mg 03/12/20 09:00 03/13/20 09:17 Lopressor PO 25 mg TID KIET Administration Montelukast Sodium 10 mg 03/12/20 21:00 03/12/20 21:09 Singulair PO 10 mg HS KIET Administration Naloxone HCl 0.2 mg 03/11/20 23:31 Narcan IV Q2M PRN Opioid Reversal Nystatin 1 applic 03/12/20 11:45 03/13/20 09:18 Mycostatin Cream TOPICAL 1 applic TID KIET Administration Intake and Output 03/13/20 03/13/20 03/13/20 06:59 14:59 22:59 Intake Total 240 260 40.75 Output Total 935 565 80 Balance -695 -305 -39.25 Intake: IV 20 20 0.9 @ KVO 20 20 Intake, IV Titration 20.75 Amount Furosemide 100 mg In 20.75 Sodium Chloride 0.9% 90 ml @ 5 MG/HR 5 mls/hr IV .Q20H [facility] Rx#:[id number] Oral 240 240 Output: Urine 935 565 80 Other: Voiding Method Indwelling Catheter Indwelling Catheter Indwelling Catheter # Bowel Movements 1 Weight 108.8 kg 03/13/20 04:37 03/13/20 04:37
[2020-03-13 16:51] LABS: Glucose,Whole Blood 199 mg/dL (75-99)
[2020-03-13 18:42] LABS: Appearance,Urine Cloudy (Clear); Bacteria,Urine Many /hpf; Bilirubin,Urine Negative (Negative); Blood,Urine Trace (Negative); Color,Urine Yellow; Glucose,Urine (UA) Negative (Negative); Hyaline Casts,Urine 37 /lpf (0-2); Ketones,Urine Negative (Negative); Leukocyte Esterase,Urine Large (Negative); Mucus,Urine Rare /hpf; Nitrite,Urine Negative (Negative); Protein,Urine 1+ (Negative); RBC,Urine 4 /hpf (0-5); Squamous Epithelial Cell,Urine 2 /hpf (0-4); Urobilinogen,Urine <2.0 mg/dL (<2.0); WBC,Urine 102 /hpf (0-5)
[2020-03-13 19:55] LABS: Glucose,Whole Blood 209 mg/dL (75-99)
[2020-03-13] MEDS: ARIPiprazole 5 MG TAB PO SCH (20:42)
[2020-03-13] MEDS: MONTELUKAST 10 MG TAB PO SCH (20:42)
[2020-03-13] MEDS: ACETAMINOPHEN TAB 325 MG TAB PO PRN (21:37)
[2020-03-14] MEDS ORDERED: MELATONIN 3 MG TABLET PO PRN (01:24)
[2020-03-14 05:18] LABS: Anisocytosis Slight; Basophils % (A) 0 %; Eosinophils % (A) 0 %; HCT 32.8 % (34.0-46.0); HGB 8.5 gm/dL (11.4-16.0); Hypochromasia Marked; Lymphocytes # (A) 0.2 k/uL (1.0-4.8); Lymphocytes % (A) 3 %; MCH 18.2 pg (25.0-35.0); MCV 69.8 fL (80.0-100.0); Mean Platelet Volume 6.7; Microcytosis Marked; Monocytes # (A) 0.2 k/uL (0-1.0); Monocytes % (A) 3 %; Neutrophils # (A) 5.7 k/uL (1.3-7.7); Neutrophils % (A) 92 %; Platelet Count 447 k/uL (150-450); Poikilocytosis Slight; RDW 18.4 % (11.5-15.5); WBC 6.2 k/uL (3.8-10.6)
[2020-03-14 05:40] LABS: Calcium 8.5 mg/dL (8.4-10.2); Magnesium 1.7 mg/dL (1.6-2.3); Potassium 5.5 mmol/L (3.5-5.1)
[2020-03-14 06:34] LABS: Glucose,Whole Blood 213 mg/dL (75-99)
[2020-03-14] MEDS: LEVOTHYROXINE 100 MCG TAB PO SCH (06:36)
[2020-03-14] MEDS: INSULIN ASPART (NovoLOG) 100 UNIT/ML VIAL SQ SCH ×4 (06:37→20:48)
[2020-03-14] MEDS: ACETAMINOPHEN TAB 325 MG TAB PO PRN ×2 (06:37→18:48)
[2020-03-14] MEDS: FUROSEMIDE 100 MG in SODIUM CHLORIDE 0.9% 90 ML IV SCH ×2 (06:39→13:31)
--- NOTE | 2020-03-14 07:01 | XR ---
EXAMINATION TYPE: XR chest 1V portable DATE OF EXAM: 03/14/2020 HISTORY: assses lungs. REFERENCE: Previous study dated 03/13/2020. FINDINGS: There is worsening of right basilar airspace disease. The heart is enlarged. There is pulmo nary vascular congestion and mild edema. IMPRESSION: 1. CONTINUING CHANGES OF MILD PULMONARY EDEMA. 2. WORSENING RIGHT BASILAR AIRSPACE DISEASE MAY REPRESENT CONFLUENT EDEMA OR PNEUMONIA.
[2020-03-14] MEDS: IPRATROPIUM-ALBUTEROL 3 ML NEB INHALATION SCH ×4 (07:36→21:30)
[2020-03-14] MEDS ORDERED: TOLVAPTAN 15 MG 1/2 TABLET PO ONE (08:45)
[2020-03-14] MEDS: HEPARIN SODIUM,PORCINE 5,000 UNIT/ML 1 ML VIAL SQ SCH ×3 (09:37→23:55)
[2020-03-14] MEDS: MAGNESIUM SULFATE-D5W PMX 1 GM in DEXTROSE/WATER 1 100ML.BAG IVPB SCH ×2 (09:37→11:47)
[2020-03-14] MEDS: ATORVASTATIN 40 MG TAB PO SCH (09:38)
[2020-03-14] MEDS: methylPREDNISolone SOD SUCCI 125 MG/2 ML VIAL IV SCH ×3 (09:38→23:55)
[2020-03-14] MEDS: ESCITALOPRAM 20 MG TAB PO SCH (09:38)
[2020-03-14] MEDS: AZITHROMYCIN 500 MG TAB PO SCH (09:38)
[2020-03-14] MEDS: ASPIRIN 81 MG PO SCH (09:38)
[2020-03-14] MEDS: METOPROLOL TARTRATE 25 MG TAB PO SCH ×3 (09:38→20:51)
[2020-03-14] MEDS: lisinopriL 10 MG TAB PO SCH (09:38)
[2020-03-14] MEDS: NYSTATIN 100,000UNIT/GM CREAM 30 GM TUBE TOPICAL SCH ×3 (09:39→20:52)
--- NOTE | 2020-03-14 09:41 | P.PN ---
Subjective Progress Note Date: 03/14/20 Principal diagnosis: Shortness of breath Patient seen and examined in the ICU. Patient is currently on 2 L nasal cannula. Patient states that her breathing is close to her baseline. Patient is wondering when she can go home. I discussed with the patient and told her that she still has significant fluid in her lungs and she is on Lasix drip so she is not ready for discharge. Patient is states that prior to coming in she had no dysuria. She currently has a Newton catheter to monitor output. Patient denies any fever or chills. Chest x-ray this morning shows increasing right lower lobe consolidation which is concerning for worsening pulmonary edema versus airspace disease. I discussed with pulmonology who said they will evaluate the patient to see if she will require antibiotics for possible pneumonia. Objective - Vital Signs Vital signs: Vital Signs Temp 98.5 F 03/14/20 04:00 Pulse 66 03/14/20 07:46 Resp 16 03/14/20 07:00 BP 142/73 03/14/20 07:00 Pulse Ox 92 L 03/14/20 07:00 Intake & Output 03/13/20 03/14/20 03/14/20 18:59 06:59 18:59 Intake Total 360.75 299.25 20 Output Total 755 905 300 Balance -394.25 -605.75 -280 Weight 110.4 kg Intake: IV 100 220 20 0.9 @ KVO 70 110 10 Furosemide 100 mg In 30 110 10 Sodium Chloride 0.9% 90 ml @ 5 MG/HR 5 mls/hr IV .Q20H [facility] Rx#:[id number] Intake, IV Titration 20.75 79.25 Amount Furosemide 100 mg In 20.75 79.25 Sodium Chloride 0.9% 90 ml @ 5 MG/HR 5 mls/hr IV .Q20H [facility] Rx#:[id number] Oral 240 Output: Urine 755 905 300 Other: Voiding Method Indwelling Catheter Indwelling Catheter # Bowel Movements 1 - Exam General examination - Alert and Oriented 3 in no acute distress, Heart - + S1S2 no murmurs Lungs -diminished breath sounds bilaterally Abdomen fungal infection in the pannus area, distended, no tenderness to palpation Extremities - +1 pitting edema in bilateral lower extremities 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 ATTORNEY - Moving all 4 extremities spontaneously Psych - calm - Labs CBC & Chem 7: 03/14/20 04:25 07/26/20 04:25 Labs: Abnormal Lab Results - Last 24 Hours (Table) 03/13/20 03/13/20 03/13/20 Range/Units 11:47 16:50 18:10 Hgb (11.4-16.0) gm/dL Hct (34.0-46.0) % MCV (80.0-100.0) fL MCH (25.0-35.0) pg MCHC (31.0-37.0) g/dL RDW (11.5-15.5) % Lymphocytes # (1.0-4.8) k/uL Sodium (137-145) mmol/L Potassium (3.5-5.1) mmol/L Chloride (98-107) mmol/L BUN (7-17) mg/dL Glucose (74-99) mg/dL POC Glucose (mg/dL) 153 H 199 H (75-99) mg/dL Urine Appearance Cloudy H (Clear) Urine Protein 1+ H (Negative) Urine Blood Trace H (Negative) Ur Leukocyte Esterase Large H (Negative) Urine WBC 102 H (0-5) /hpf Urine WBC Clumps Moderate H (None) /hpf Urine Bacteria Many H (None) /hpf Hyaline Casts 37 H (0-2) /lpf Urine Mucus Rare H (None) /hpf 03/13/20 03/14/20 03/14/20 Range/Units 19:53 04:25 04:25 Hgb 8.5 L (11.4-16.0) gm/dL Hct 32.8 L (34.0-46.0) % MCV 69.8 L (80.0-100.0) fL MCH 18.2 L (25.0-35.0) pg MCHC 26.0 L (31.0-37.0) g/dL RDW 18.4 H (11.5-15.5) % Lymphocytes # 0.2 L (1.0-4.8) k/uL Sodium 124 L (137-145) mmol/L Potassium 5.5 H (3.5-5.1) mmol/L Chloride 92 L (98-107) mmol/L BUN 58 H (7-17) mg/dL Glucose 165 H (74-99) mg/dL POC Glucose (mg/dL) 209 H (75-99) mg/dL Urine Appearance (Clear) Urine Protein (Negative) Urine Blood (Negative) Ur Leukocyte Esterase (Negative) Urine WBC (0-5) /hpf Urine WBC Clumps (None) /hpf Urine Bacteria (None) /hpf Hyaline Casts (0-2) /lpf Urine Mucus (None) /hpf 03/14/20 Range/Units 06:31 Hgb (11.4-16.0) gm/dL Hct (34.0-46.0) % MCV (80.0-100.0) fL MCH (25.0-35.0) pg MCHC (31.0-37.0) g/dL RDW (11.5-15.5) % Lymphocytes # (1.0-4.8) k/uL Sodium (137-145) mmol/L Potassium (3.5-5.1) mmol/L Chloride (98-107) mmol/L BUN (7-17) mg/dL Glucose (74-99) mg/dL POC Glucose (mg/dL) 213 H (75-99) mg/dL Urine Appearance (Clear) Urine Protein (Negative) Urine Blood (Negative) Ur Leukocyte Esterase (Negative) Urine WBC (0-5) /hpf Urine WBC Clumps (None) /hpf Urine Bacteria (None) /hpf Hyaline Casts (0-2) /lpf Urine Mucus (None) /hpf Assessment and Plan Assessment: #Acute hypoxic hypercapnic respiratory failure #COPD exacerbation #Acute on chronic diastolic heart failure #Possible underlying pneumonia -Strict I's and O -Daily with -Resume IV Lasix 40 mg every 8 hours -> nephrology switch patient to Lasix drip -IV steroids, DuoNeb scheduled and as needed, azithromycin -Echocardiogram shows elevated right-sided filling pressure -Patient is currently on 2 L nasal cannula. Patient states that she is on 2 L of oxygen as needed at home. -Chest x-ray shows worsening right lower lobe consolidation concerning for pulmonary edema versus airspace disease. We'll defer to pulmonology regarding antibiotics. -Cardiology and pulmonology on board -Follow up COVID 19 results #Hyperkalemia -Hold home medication of spironolactone -Nephrology managing -Slightly increased today #Hypovolemic Hyponatremia -We'll continue with diuresing -Nephrology managing -Nephrology ordered Tolvaptan on 03/14/2020 -Decreased slightly today #Fungal infection and intertriginous places -Nystatin cream #Diabetes mellitus Type 2 -Hold metformin -Sliding-scale insulin #Hypothyroidism -Resume Synthroid We'll consult PTOT as patient may require inpatient rehab DVT prophylaxis: Subcu heparin
--- NOTE | 2020-03-14 10:51 | PN ---
PROGRESS NOTE The patient is seen for followup for acute kidney injury and hyponatremia. The patient is currently being diuresed. She has significant volume overload and was started on Lasix drip yesterday. Serum creatinine is stable staying at 0.8 mg/dL. The patient has had good urine output. She is negative 2 L for 24 hours; however, the weight seems to have gone up. I am not sure if this is accurate. PHYSICAL EXAMINATION: Blood pressure is 142/73, heart rate 66 per minute. She is afebrile. Examination of the heart S1, S2. Examination of the lungs, bilateral breath sounds are heard. Abdomen is soft, nontender and obese. Exam of lower extremities shows 4+ edema bilaterally. 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 LAB: Show sodium 124, potassium 5.5, chloride 92. BUN 58, serum creatinine 0.89. ASSESSMENT: 1. Volume overload and significant lower extremity edema. Currently maintained on Lasix drip. Increase Lasix drip to 10 mg an hour. 2. Congestive heart failure, acute on top of chronic. Mainly diastolic with ejection fraction 50%-55%. 3. Elevated right heart pressures with moderate to severe pulmonary hypertension with resultant chronic lower extremity edema. 4. Type 2 diabetes. 5. Chronic obstructive pulmonary disease. 6. Hyperkalemia associated with use of JERONIMO inhibitors in the setting of mild acute kidney injury, possible urine retention. Currently improved. Patient currently has a Newton catheter. 7. Hyponatremia which is hypervolemic. Add tolvaptan. PLAN: Continue with Lasix drip and increased to 10 mg an hour and add tolvaptan for the hyponatremia. Continue with Lasix drip. Maintain fluid restriction. MMODL / IJN: [id number] /
[2020-03-14 11:45] LABS: Glucose,Whole Blood 219 mg/dL (75-99)
--- NOTE | 2020-03-14 12:59 | P.PN ---
Subjective Progress Note Date: 03/14/20 Principal diagnosis: Acute on chronic hypoxic and hypercapnic arrest or failure This is a 69-year-old female with history of severe COPD, former smoker, chronic cor pulmonale, hypertension, hypothyroidism, morbid obesity, type 2 diabetes, diastolic congestive heart failure, patient was brought into the emergency room with a few days' history of increased shortness of breath and increase legs swelling. Patient actually was noted to have anasarca in the ER. Chest x-ray showed evidence of congestive heart failure, and small bilateral pleural effusions. ABG showed a pO2 of 135 pCO2 of 83 pH of 7.12 and this was on 36% FiO2. Patient was placed on BiPAP, and she was also noted to have hyponatremia and hyperkalemia. As well as significantly elevated proBNP level. Considering the findings, patient was placed on diuretics, bronchodilators, and I was asked to see her on consultation. Patient was evaluated in the ER, she is on BiPAP, not much history could be obtained from the patient. Reevaluated today in ICU on 03/13/20, patient remains in the ICU, she was on BiPAP through the night, however this morning she was switched to a nasal cannula and she is presently at 2 L/m. Patient seems to be comfortable, she is more awake, denies any cough wheezing or shortness of breath denies any chest pain. Remains on Lasix at 40 mg IV push every 8 hours, she is also on bro nchodilators, steroids, continues to have significant swelling/anasarca. Patient has been in negative balance over the last 24 hours around 2 L. CBC is showing WBC of 3.1 hemoglobin is 8.9 sodium is 127 potassium is 5.2, BUN is 47 creatinine is improved down to 0.87 in spite of diuresis. Patient was reevaluated today on 03/14/20, remains in the intensive care unit, remains on Lasix drip at 10 mg per hour. She has positive urine and blood cultures. Sodium remains low and she was given tolvaptan by nephrology today. Pulmonary-haas, the patient is feeling better, breathing easier, presently on 2 L nasal cannula. And her O2 saturations is in the low 90s. She is hemodynamically stable, and she is in sinus rhythm. Her labs were all reviewed and her chest x-ray was reviewed. Chest x-ray continues to show evidence of interstitial edema, strongly doubt pneumonia. BUN is 58 creatinine 0.89. Hemoglobin today is 8.5. Objective - Vital Signs Vital signs: Vital Signs Temp 96.8 F L 03/14/20 12:00 Pulse 62 03/14/20 12:25 Resp 29 H 03/14/20 12:00 BP 138/61 03/14/20 12:00 Pulse Ox 93 L 03/14/20 12:00 Intake & Output 03/13/20 03/14/20 03/14/20 18:59 06:59 18:59 Intake Total 360.75 299.25 120 Output Total 755 905 690 Balance -394.25 -605.75 -570 Weight 110.4 kg Intake: IV 100 220 120 0.9 @ KVO 70 110 60 Furosemide 100 mg In 30 110 60 Sodium Chloride 0.9% 90 ml @ 10 MG/HR 10 mls/hr IV .Q10H KIET Rx#: [id number] Intake, IV Titration 20.75 79.25 Amount Furosemide 100 mg In 20.75 79.25 Sodium Chloride 0.9% 90 ml @ 10 MG/HR 10 mls/hr IV .Q10H KIET Rx#: [id number] Oral 240 Output: Urine 755 905 690 Other: Voiding Method Indwelling Catheter Indwelling Catheter Indwelling Catheter # Bowel Movements 1 2 - Exam GENERAL EXAM: 69-year-old white female, on 2 L nasal cannula, in no distress HEENT: PERRLA, EOMI, no icterus. Short obese neck, no neck masses, no JVD. CHEST: No chest wall deformity. Symmetrical expansion. LUNGS: Symmetrical chest expansion, fine crackles at the bases. CVS: Regular rate and rhythm, normal S1 and S2, no gallops, no murmurs, no rubs ABDOMEN: Obese, Soft, nontender. No hepatosplenomegaly, normal bowel sounds, no guarding or rigidity. Significant swelling of the abdominal wall/anasarca. And suspect ascites. EXTREMITIES: No clubbing, 2+ bipedal edema. MUSCULOSKELETAL: Muscle strength and tone normal. SPINE: No scoliosis or deformity SKIN: No rashes CENTRAL NERVOUS SYSTEM: Alert and oriented 3, no gross focal neurologic deficits. PSYCHIATRIC: Blunted affect, normal mental status examination.. - Labs CBC & Chem 7: 03/14/20 04:25 03/14/20 04:25 Labs: Abnormal Lab Results - Last 24 Hours (Table) 03/13/20 03/13/20 03/13/20 Range/Units 16:50 18:10 19:53 Hgb (11.4-16.0) gm/dL Hct (34.0-46.0) % MCV (80.0-100.0) fL MCH (25.0-35.0) pg MCHC (31.0-37.0) g/dL RDW (11.5-15.5) % Lymphocytes # (1.0-4.8) k/uL Sodium (137-145) mmol/L Potassium (3.5-5.1) mmol/L Chloride (98-107) mmol/L BUN (7-17) mg/dL Glucose (74-99) mg/dL POC Glucose (mg/dL) 199 H 209 H (75-99) mg/dL Urine Appearance Cloudy H (Clear) Urine Protein 1+ H (Negative) Urine Blood Trace H (Negative) Ur Leukocyte Esterase Large H (Negative) Urine WBC 102 H (0-5) /hpf Urine WBC Clumps Moderate H (None) /hpf Urine Bacteria Many H (None) /hpf Hyaline Casts 37 H (0-2) /lpf Urine Mucus Rare H (None) /hpf 03/14/20 03/14/20 03/14/20 Range/Units 04:25 04:25 06:31 Hgb 8.5 L (11.4-16.0) gm/dL Hct 32.8 L (34.0-46.0) % MCV 69.8 L (80.0-100.0) fL MCH 18.2 L (25.0-35.0) pg MCHC 26.0 L (31.0-37.0) g/dL RDW 18.4 H (11.5-15.5) % Lymphocytes # 0.2 L (1.0-4.8) k/uL Sodium 124 L (137-145) mmol/L Potassium 5.5 H (3.5-5.1) mmol/L Chloride 92 L (98-107) mmol/L BUN 58 H (7-17) mg/dL Glucose 165 H (74-99) mg/dL POC Glucose (mg/dL) 213 H (75-99) mg/dL Urine Appearance (Clear) Urine Protein (Negative) Urine Blood (Negative) Ur Leukocyte Esterase (Negative) Urine WBC (0-5) /hpf Urine WBC Clumps (None) /hpf Urine Bacteria (None) /hpf Hyaline Casts (0-2) /lpf Urine Mucus (None) /hpf 03/14/20 Range/Units 11:44 Hgb (11.4-16.0) gm/dL Hct (34.0-46.0) % MCV (80.0-100.0) fL MCH (25.0-35.0) pg MCHC (31.0-37.0) g/dL RDW (11.5-15.5) % Lymphocytes # (1.0-4.8) k/uL Sodium (137-145) mmol/L Potassium (3.5-5.1) mmol/L Chloride (98-107) mmol/L BUN (7-17) mg/dL Glucose (74-99) mg/dL POC Glucose (mg/dL) 219 H (75-99) mg/dL Urine Appearance (Clear) Urine Protein (Negative) Urine Blood (Negative) Ur Leukocyte Esterase (Negative) Urine WBC (0-5) /hpf Urine WBC Clumps (None) /hpf Urine Bacteria (None) /hpf Hyaline Casts (0-2) /lpf Urine Mucus (None) /hpf Assessment and Plan Assessment: Impression: Acute on chronic hypoxic and hypercapnic respiratory failure, multifactorial secondary to underlying COPD with acute COPD exacerbation and acute on chronic diastolic congestive heart failure. Acute exacerbation of COPD. Patient has normally FEV1 of 42% DLCO is 45%. Chronic cor pulmonale and worsening right sided congestive heart failure. Hypothyroidism. Severe pulmonary hypertension. Degenerative joint disease. Type 2 diabetes. Former smoker. History of nephrolithiasis. Recommendation: Continue diuretics. Presently on Lasix drip at 10 mg per hour. Use BiPAP as needed and transition to nasal cannula as needed Continue to monitor in the ICU. Continue bronchodilators. Continue methylprednisolone. GI and DVT prophylaxis We'll continue to follow. Time with Patient: Less than 30
[2020-03-14 16:13] LABS: Glucose,Whole Blood 211 mg/dL (75-99)
[2020-03-14] MEDS ORDERED: ONDANSETRON 4 MG/2 ML VIAL IVP PRN (17:41)
[2020-03-14] MEDS: MONTELUKAST 10 MG TAB PO SCH (20:51)
[2020-03-14] MEDS: ARIPiprazole 5 MG TAB PO SCH (20:51)
[2020-03-14] MEDS ORDERED: MELATONIN 3 MG TABLET PO SCH (21:00)
[2020-03-15 05:31] LABS: Calcium 7.6 mg/dL (8.4-10.2); Magnesium 1.8 mg/dL (1.6-2.3); Potassium 5.4 mmol/L (3.5-5.1)
[2020-03-15] MEDS ORDERED: Magnesium Replacement Protocol 1 EACH MISC MISCELLANE PRN (05:40)
[2020-03-15] MEDS: MAGNESIUM SULFATE-D5W PMX 1 GM in DEXTROSE/WATER 1 100ML.BAG IVPB SCH ×2 (05:49→06:57)
[2020-03-15] MEDS: FUROSEMIDE 100 MG in SODIUM CHLORIDE 0.9% 90 ML IV SCH (05:59)
[2020-03-15 06:30] LABS: Anisocytosis Slight; HCT 20.5 % (34.0-46.0); Hypochromasia Marked; MCH 18.9 pg (25.0-35.0); MCHC 26.7 g/dL (31.0-37.0); MCV 70.8 fL (80.0-100.0); Microcytosis Marked; Platelet Count 332 k/uL (150-450); Poikilocytosis Slight; RBC 2.89 m/uL (3.80-5.40); RDW 18.6 % (11.5-15.5); WBC 8.7 k/uL (3.8-10.6)
[2020-03-15 06:32] LABS: HGB 5.5 gm/dL (11.4-16.0)
[2020-03-15] MEDS: LEVOTHYROXINE 100 MCG TAB PO SCH (06:38)
[2020-03-15 06:57] LABS: Glucose,Whole Blood 240 mg/dL (75-99)
[2020-03-15] MEDS: INSULIN ASPART (NovoLOG) 100 UNIT/ML VIAL SQ SCH ×4 (06:57→20:33)
[2020-03-15 07:19] LABS: ABG PH 7.12 (7.35-7.45)
[2020-03-15 07:20] LABS: ABG PCO2 83 mmHg (35-45)
--- NOTE | 2020-03-15 07:56 | XR ---
EXAMINATION TYPE: XR chest 1V DATE OF EXAM: 03/15/2020 COMPARISON: 03/14/2020 INDICATION: CHF TECHNIQUE: Single frontal view of the chest is obtained. FINDINGS: The heart size is slightly prominent.. The pulmonary vasculature is normal. Minimal right lower lobe infiltrate may be present. There is blunting left costophrenic angle. Small left pleural effusion should be considered. Small right pleural effusion may be developing. IMPRESSION: 1. Suggestion of small bilateral pleural effusions. 2. Mild cardiomegaly. 3. Clinical correlation recommended for developing left lower lobe pneumonia
[2020-03-15] MEDS: ESCITALOPRAM 20 MG TAB PO SCH (08:21)
[2020-03-15] MEDS: ATORVASTATIN 40 MG TAB PO SCH (08:21)
[2020-03-15] MEDS: AZITHROMYCIN 500 MG TAB PO SCH (08:23)
[2020-03-15] MEDS: NYSTATIN 100,000UNIT/GM CREAM 30 GM TUBE TOPICAL SCH ×3 (08:23→22:40)
[2020-03-15] MEDS: lisinopriL 10 MG TAB PO SCH (08:23)
[2020-03-15] MEDS: METOPROLOL TARTRATE 25 MG TAB PO SCH ×3 (08:23→22:40)
[2020-03-15] MEDS: IPRATROPIUM-ALBUTEROL 3 ML NEB INHALATION SCH ×4 (08:35→19:31)
[2020-03-15 08:39] LABS: ABG Base Excess 4.9 mmol/L; ABG HCO3 32 mmol/L (21-25); ABG Oxygen Saturation 94.2 % (94-97); ABG PH 7.25 (7.35-7.45); ABG PO2 79 mmHg (83-108); ABG TCO2 34 mmol/L (19-24); Allen Test Performed? Yes
[2020-03-15 08:51] LABS: ABG PCO2 74 mmHg (35-45)
[2020-03-15] MEDS: PANTOPRAZOLE 40 MG/10 ML VIAL IVP SCH ×2 (09:55→20:31)
[2020-03-15] MEDS: methylPREDNISolone SOD SUCCI 125 MG/2 ML VIAL IV SCH ×2 (09:55→18:38)
--- NOTE | 2020-03-15 10:04 | P.PN ---
Subjective Patient is seen in follow-up for hyponatremia and volume overload. Patient had bloody bowel movement early this morning. Hemoglobin 5.5. She is receiving 2 units of blood transfusion. She is maintained on Lasix drip. Nonoliguric. Sodium level 127 today. Currently on BiPAP. Vital signs are stable. General: The patient appeared well nourished and normally developed. On BiPAP. HEENT: Head exam is unremarkable. Neck is without jugular venous distension. LUNGS: Breath sounds decreased. HEART: Regular rate and rhythm. ABDOMEN: Soft, nontender. EXTREMITITES: 2+ edema. Objective - Vital Signs Vital signs: Vital Signs Temp 97.6 F 03/15/20 09:38 Pulse 62 03/15/20 09:38 Resp 22 03/15/20 09:38 BP 117/45 03/15/20 09:38 Pulse Ox 94 L 03/15/20 09:38 Intake & Output 03/14/20 03/15/20 03/15/20 18:59 06:59 18:59 Intake Total 508.667 440 161.167 Output Total 1415 2595 515 Balance -906.333 -2155 -353.833 Weight 105.5 kg Intake: IV 440 340 140 0.9 @ KVO 120 120 30 Furosemide 100 mg In 120 120 10 Sodium Chloride 0.9% 90 ml @ 10 MG/HR 10 mls/hr IV .Q10H [facility]ET Rx#: [id number] Magnesium Sulfate-D5w Pmx 200 100 100 1 gm In Dextrose/Water 1 100ml.bag @ 100 mls/hr IVPB Q1H KIET Rx#: [id number] Intake, IV Titration 68.667 100 21.167 Amount Furosemide 100 mg In 68.667 100 21.167 Sodium Chloride 0.9% 90 ml @ 10 MG/HR 10 mls/hr IV .Q10H KIET Rx#: [id number] Blood Product 0 Rc As-1 Unit 0 [id number] Output: Urine 1415 2595 515 Other: Voiding Method Indwelling Catheter Indwelling Catheter Indwelling Catheter # Bowel Movements 2 - Labs CBC & Chem 7: 03/15/20 05:48 03/15/20 03:53 Labs: Abnormal Lab Results - Last 24 Hours (Table) 03/12/20 03/14/20 03/14/20 Range/Units 05:05 11:44 16:10 RBC (3.80-5.40) m/uL Hgb (11.4-16.0) gm/dL Hct (34.0-46.0) % MCV (80.0-100.0) fL MCH (25.0-35.0) pg MCHC (31.0-37.0) g/dL RDW (11.5-15.5) % ABG pH 7.12 L* (7.35-7.45) ABG pCO2 83 H* (35-45) mmHg ABG pO2 (83-108) mmHg ABG HCO3 (21-25) mmol/L ABG Total CO2 (19-24) mmol/L Sodium (137-145) mmol/L Potassium (3.5-5.1) mmol/L Chloride (98-107) mmol/L BUN (7-17) mg/dL Glucose (74-99) mg/dL POC Glucose (mg/dL) 219 H 211 H (75-99) mg/dL Calcium (8.4-10.2) mg/dL Crossmatch 03/15/20 03/15/20 03/15/20 Range/Units 03:53 05:48 05:53 RBC 2.89 L (3.80-5.40) m/uL Hgb 5.5 L* D (11.4-16.0) gm/dL Hct 20.5 L (34.0-46.0) % MCV 70.8 L (80.0-100.0) fL MCH 18.9 L (25.0-35.0) pg MCHC 26.7 L (31.0-37.0) g/dL RDW 18.6 H (11.5-15.5) % ABG pH (7.35-7.45) ABG pCO2 (35-45) mmHg ABG pO2 (83-108) mmHg ABG HCO3 (21-25) mmol/L ABG Total CO2 (19-24) mmol/L Sodium 127 L (137-145) mmol/L Potassium 5.4 H (3.5-5.1) mmol/L Chloride 95 L (98-107) mmol/L BUN 82 H (7-17) mg/dL Glucose 173 H (74-99) mg/dL POC Glucose (mg/dL) (75-99) mg/dL Calcium 7.6 L (8.4-10.2) mg/dL Crossmatch See Detail 03/15/20 03/15/20 Range/Units 06:54 08:21 RBC (3.80-5.40) m/uL Hgb (11.4-16.0) gm/dL Hct (34.0-46.0) % MCV (80.0-100.0) fL MCH (25.0-35.0) pg MCHC (31.0-37.0) g/dL RDW (11.5-15.5) % ABG pH 7.25 L (7.35-7.45) ABG pCO2 74 H* (35-45) mmHg ABG pO2 79 L (83-108) mmHg ABG HCO3 32 H (21-25) mmol/L ABG Total CO2 34 H (19-24) mmol/L Sodium (137-145) mmol/L Potassium (3.5-5.1) mmol/L Chloride (98-107) mmol/L BUN (7-17) mg/dL Glucose (74-99) mg/dL POC Glucose (mg/dL) 240 H (75-99) mg/dL Calcium (8.4-10.2) mg/dL Crossmatch Assessment and Plan Plan: Assessment: 1. Hypervolemic hyponatremia. Sodium level CXXVII today. Currently on Lasix drip. Status post [place] March 14. 2. Acute GI bleed currently receiving blood transfusion. GI consulted. 3. Acute hypercapnic respiratory failure maintained on BiPAP. 4. Mild hyperkalemia secondary to GI bleed. Also on lisinopril. 5. Volume overload. 6. Acute diastolic CHF with severe pulmonary hypertension. Plan: Maintain Lasix drip. Currently receiving blood transfusions. Discontinue lisinopril. Continue to monitor urine output.
[2020-03-15 10:24] LABS: Reticulocyte % 2.1 % (0.5-2.0)
--- NOTE | 2020-03-15 10:25 | P.PN ---
Subjective Progress Note Date: 03/15/20 Principal diagnosis: Acute on chronic hypoxic and hypercapnic respiratory failure This is a 69-year-old female with history of severe COPD, former smoker, chronic cor pulmonale, hypertension, hypothyroidism, morbid obesity, type 2 diabetes, diastolic congestive heart failure, patient was brought into the emergency room with a few days' history of increased shortness of breath and increase legs swelling. Patient actually was noted to have anasarca in the ER. Chest x-ray showed evidence of congestive heart failure, and small bilateral pleural effusions. ABG showed a pO2 of 135 pCO2 of 83 pH of 7.12 and this was on 36% FiO2. Patient was placed on BiPAP, and she was also noted to have hyponatremia and hyperkalemia. As well as significantly elevated proBNP level. Considering the findings, patient was placed on diuretics, bronchodilators, and I was asked to see her on consultation. Patient was evaluated in the ER, she is on BiPAP, not much history could be obtained from the patient. Reevaluated today in ICU on 03/13/20, patient remains in the ICU, she was on BiP AP through the night, however this morning she was switched to a nasal cannula and she is presently at 2 L/m. Patient seems to be comfortable, she is more awake, denies any cough wheezing or shortness of breath denies any chest pain. Remains on Lasix at 40 mg IV push every 8 hours, she is also on bronchodilators, steroids, continues to have significant swelling/anasarca. Patient has been in negative balance over the last 24 hours around 2 L. CBC is showing WBC of 3.1 hemoglobin is 8.9 sodium is 127 potassium is 5.2, BUN is 47 creatinine is improved down to 0.87 in spite of diuresis. Patient was reevaluated today on 03/14/20, remains in the intensive care unit, remains on Lasix drip at 10 mg per hour. She has positive urine and blood cultures. Sodium remains low and she was given tolvaptan by nephrology today. Pulmonary-haas, the patient is feeling better, breathing easier, presently on 2 L nasal cannula. And her O2 saturations is in the low 90s. She is hemodynamically stable, and she is in sinus rhythm. Her labs were all reviewed and her chest x-ray was reviewed. Chest x-ray continues to show evidence of interstitial edema, strongly doubt pneumonia. BUN is 58 creatinine 0.89. Hemoglobin today is 8.5. On 03/15/2020 patient seen in follow-up in the intensive care unit, she is lethargic, but arousable to verbal and tactile stimulation, she is on 2 L of oxygen her pulse oximetry is 90-92%, she is afebrile, hemodynamically patient is stable, 0.9 was seen at a rate of 20 ML per hour, and Lasix drip is at 10 mg per hour. She is in sinus mechanism with a rate of 74 BPM. Patient was admitted to the hospital on 03/11/2020 with a diagnosis of CHF, was started on Lasix infusion, however last night patient also started passing large burgundy colored stools, and hemoglobin came down to 5.5 on this morning's labs. 2 units of packed red blood cells were ordered, and one has already been infused. The second one is pending. Patient has produced 4 L in the urine output, he still has significant amount of upper and lower extremity edema, edema in her upper thighs and abdominal wall. Abdomen is distended, firm, with pitting edema, however it is nontender. Patient is on baby aspirin daily, which was placed on hold today, patient is not on any other anticoagulation. Today's labs have been reviewed, showing white blood cell count of 8.7, hemoglobin is 5.5 as mentioned above, platelet count is 332, serum sodium is 127 with potassium of 5.4, chloride is 95, CO2 26, B1 is 82, creatinine is 0.85. Blood gas was reviewed showing pO2 of 79, pCO2 74, and pH of 7.25 consistent with acute hypercapnic respiratory failure related to rule out overload secondary to acute exacerbation of CHF with diastolic dysfunction Objective - Vital Signs Vital signs: Vital Signs Temp 97.6 F 03/15/20 09:38 Pulse 65 03/15/20 10:00 Resp 20 03/15/20 10:00 BP 117/45 03/15/20 10:00 Pulse Ox 94 L 03/15/20 10:00 Intake & Output 03/14/20 03/15/20 03/15/20 18:59 06:59 18:59 Intake Total 508.667 440 171.167 Output Total 1415 3425 625 Balance -906.333 -2155 -453.833 Weight 105.5 kg Intake: IV 440 340 150 0.9 @ KVO 120 120 40 Furosemide 100 mg In 120 120 10 Sodium Chloride 0.9% 90 ml @ 10 MG/HR 10 mls/hr IV .Q10H [facility]ET Rx#: [id number] Magnesium Sulfate-D5w Pmx 200 100 100 1 gm In Dextrose/Water 1 100ml.bag @ 100 mls/hr IVPB Q1H [facility]ET Rx#: [id number] Intake, IV Titration 68.667 100 21.167 Amount Furosemide 100 mg In 68.667 100 21.167 Sodium Chloride 0.9% 90 ml @ 10 MG/HR 10 mls/hr IV .Q10H KIET Rx#: [id number] Blood Product 0 Rc As-1 Unit 0 [id number] Output: Urine 1415 2595 625 Other: Voiding Method Indwelling Catheter Indwelling Catheter Indwelling Catheter # Bowel Movements 2 - Exam GENERAL EXAM: Lethargic, 69-year-old white female, on 2 L of oxygen with pulse ox of 90-92%, arousable to verbal and tactile stimulation, comfortable in no apparent distress. HEAD: Normocephalic/atraumatic. EYES: Normal reaction of pupils, equal size. Conjunctiva pink, sclera white. NOSE: Clear with pink turbinates. THROAT: No erythema or exudates. NECK: No masses, no JVD, no thyroid enlargement, no adenopathy. CHEST: No chest wall deformity. Symmetrical expansion. LUNGS: Equal air entry with diminished breath sounds at the bases CVS: Regular rate and rhythm, normal S1 and S2, no gallops, no murmurs, no rubs ABDOMEN: Soft, nontender. No hepatosplenomegaly, normal bowel sounds, no guarding or rigidity. EXTREMITIES: No clubbing, anasarca, 1-2+ pitting edema involving upper and lower extremities, abdominal wall, upper thighs no cyanosis, 2+ pulses and upper and lower extremities. MUSCULOSKELETAL: Muscle strength and tone normal. SPINE: No scoliosis or deformity SKIN: No rashes CENTRAL NERVOUS SYSTEM: Lethargic, requires repeated verbal and tactile stimulation to arouse, No focal deficits, tone is normal in all 4 extremities. - Labs CBC & Chem 7: 03/15/20 05:48 03/15/20 03:53 Labs: Abnormal Lab Results - Last 24 Hours (Table) 03/12/20 03/14/20 03/14/20 Range/Units 05:05 11:44 16:10 RBC (3.80-5.40) m/uL Hgb (11.4-16.0) gm/dL Hct (34.0-46.0) % MCV (80.0-100.0) fL MCH (25.0-35.0) pg MCHC (31.0-37.0) g/dL RDW (11.5-15.5) % ABG pH 7.12 L* (7.35-7.45) ABG pCO2 83 H* (35-45) mmHg ABG pO2 (83-108) mmHg ABG HCO3 (21-25) mmol/L ABG Total CO2 (19-24) mmol/L Sodium (137-145) mmol/L Potassium (3.5-5.1) mmol/L Chloride (98-107) mmol/L BUN (7-17) mg/dL Glucose (74-99) mg/dL POC Glucose (mg/dL) 219 H 211 H (75-99) mg/dL Calcium (8.4-10.2) mg/dL Crossmatch 03/15/20 03/15/20 03/15/20 Range/Units 03:53 05:48 05:53 RBC 2.89 L (3.80-5.40) m/uL Hgb 5.5 L* D (11.4-16.0) gm/dL Hct 20.5 L (34.0-46.0) % MCV 70.8 L (80.0-100.0) fL MCH 18.9 L (25.0-35.0) pg MCHC 26.7 L (31.0-37.0) g/dL RDW 18.6 H (11.5-15.5) % ABG pH (7.35-7.45) ABG pCO2 (35-45) mmHg ABG pO2 (83-108) mmHg ABG HCO3 (21-25) mmol/L ABG Total CO2 (19-24) mmol/L Sodium 127 L (137-145) mmol/L Potassium 5.4 H (3.5-5.1) mmol/L Chloride 95 L (98-107) mmol/L BUN 82 H (7-17) mg/dL Glucose 173 H (74-99) mg/dL POC Glucose (mg/dL) (75-99) mg/dL Calcium 7.6 L (8.4-10.2) mg/dL Crossmatch See Detail 03/15/20 03/15/20 Range/Units 06:54 08:21 RBC (3.80-5.40) m/uL Hgb (11.4-16.0) gm/dL Hct (34.0-46.0) % MCV (80.0-100.0) fL MCH (25.0-35.0) pg MCHC (31.0-37.0) g/dL RDW (11.5-15.5) % ABG pH 7.25 L (7.35-7.45) ABG pCO2 74 H* (35-45) mmHg ABG pO2 79 L (83-108) mmHg ABG HCO3 32 H (21-25) mmol/L ABG Total CO2 34 H (19-24) mmol/L Sodium (137-145) mmol/L Potassium (3.5-5.1) mmol/L Chloride (98-107) mmol/L BUN (7-17) mg/dL Glucose (74-99) mg/dL POC Glucose (mg/dL) 240 H (75-99) mg/dL Calcium (8.4-10.2) mg/dL Crossmatch Assessment and Plan Plan: Assessment: #1. Acute on chronic hypoxic and hypercapnic respiratory failure, multifactorial secondary to underlying COPD, COPD exacerbation and acute on chronic diastolic congestive heart failure #2. Acute blood loss anemia related to lower GI bleeding, patient started passing maroon-colored stools yesterday on 03/14/2020, requiring transfusion with 2 units of packed red blood cells. Hemoglobin is down to 5.5 this morning #3. Acute exacerbation of COPD, in the patient with baseline FEV1 of 42% of predicted and diffusion capacity of 45% of predicted #4. Chronic cor pulmonale, and worsening right-sided congestive heart failure #5. Hypothyroidism #6. Severe pulmonary hypertension, moderate tricuspid regurgitation, and mild mitral regurgitation #7. Degenerative joint disease #8. Type 2 diabetes mellitus #9. Former smoker #10. History of nephrolithiasis #11. Hyponatremia, related to hypervolemia of acute exacerbation of CHF Plan: Blood gases were obtained and reviewed, consistent with acute hypercapnic respiratory failure, we will place the patient on BiPAP support with pressures of 10 and 5 and FiO2 of 40%, patient has developed a GI bleed overnight, she is been transfused with 2 units of packed red blood cells, aspirin will be placed on hold, GI evaluation has been requested, will start on PPI therapy. Continue Lasix infusion, continue IV Solu-Medrol, and nebulized bronchodilators. Her chest x-ray has been reviewed showing small bilateral pleural effusions, and possibility of right lower lobe infiltrate. Patient is afebrile. Will send a procalcitonin level. Nephrology is following and managing the hyponatremia. We'll continue to closely follow in the intensive care unit. I performed a history & physical examination of the patient and discussed their management with my nurse practitioner, Taylor Sheriff. I reviewed the nurse practitioner's note and agree with the documented findings and plan of care. Lung sounds are positive for diminished breath sounds. The findings and the impression was discussed with the patient. I attest to the documentation by the nurse practitioner. Critical care time is greater than 30 minutes Time with Patient: Greater than 30
--- NOTE | 2020-03-15 12:14 | P.PN ---
Subjective Progress Note Date: 03/15/20 The patient is a 69-year-old female with a PMH of type II DM, hypertension, hyperlipidemia, hypothyroidism, severe COPD, diastolic CHF, and morbid obesity who presented to the ED with shortness of breath along with lower extremity swelling. The patient was admitted for hypoxic and hypercapnic respiratory failure with CHF and COPD exacerbation with fluid overload. The patient was placed on IV Lasix with IV steroids and bronchodilators. She was seen and evaluated in the medical ICU on 03/15. The patient was obtunded, opening eyes to verbal and tactile stimuli, though goes right back to sleep and does not answer any questions. The patient's RN reported that she had multiple bloody bowel movements this morning. Objective - Vital Signs Vital signs: Vital Signs Temp 97.6 F 03/15/20 09:38 Pulse 62 03/15/20 09:38 Resp 22 03/15/20 09:38 BP 117/45 03/15/20 09:38 Pulse Ox 94 L 03/15/20 09:38 Intake & Output 03/14/20 03/15/20 03/15/20 18:59 06:59 18:59 Intake Total 508.667 440 161.167 Output Total 1415 2595 515 Balance -906.333 -2155 -353.833 Weight 105.5 kg Intake: IV 440 340 140 0.9 @ KVO 120 120 30 Furosemide 100 mg In 120 120 10 Sodium Chloride 0.9% 90 ml @ 10 MG/HR 10 mls/hr IV .Q10H KIET Rx#: [id number] Magnesium Sulfate-D5w Pmx 200 100 100 1 gm In Dextrose/Water 1 100ml.bag @ 100 mls/hr IVPB Q1H KIET Rx#: [id number] Intake, IV Titration 68.667 100 21.167 Amount Furosemide 100 mg In 68.667 100 21.167 Sodium Chloride 0.9% 90 ml @ 10 MG/HR 10 mls/hr IV .Q10H KIET Rx#: [id number] Blood Product 0 Rc As-1 Unit 0 [id number] Output: Urine 1415 2595 515 Other: Voiding Method Indwelling Catheter Indwelling Catheter Indwelling Catheter # Bowel Movements 2 - Exam General: Non-toxic, in no acute distress, appears stated age, morbidly obese, on BiPAP HEENT: NC/AT, anicteric sclerae, moist conjunctiva, no lid-lag, PERRLA Cardiovascular: S1/S2 wnl, no murmurs Lungs: Somewhat poor air entry bilaterally with expiratory wheezing Abdominal: Some rigidity noted, nontender, BS+ Skin: Warm, dry Extremities: Anasarca with 1+ lower extremity pitting edema Psychiatric: Lethargic, opens eyes and tracks with verbal and tactile stimuli Neuro: Unable to perform since patient not following commands, tone appears to be normal throughout, no obvious focal deficits noted - Labs CBC & Chem 7: 03/15/20 05:48 03/15/20 03:53 Labs: Abnormal Lab Results - Last 24 Hours (Table) 03/12/20 03/14/20 03/14/20 Range/Units 05:05 11:44 16:10 RBC (3.80-5.40) m/uL Hgb (11.4-16.0) gm/dL Hct (34.0-46.0) % MCV (80.0-100.0) fL MCH (25.0-35.0) pg MCHC (31.0-37.0) g/dL RDW (11.5-15.5) % ABG pH 7.12 L* (7.35-7.45) ABG pCO2 83 H* (35-45) mmHg ABG pO2 (83-108) mmHg ABG HCO3 (21-25) mmol/L ABG Total CO2 (19-24) mmol/L Sodium (137-145) mmol/L Potassium (3.5-5.1) mmol/L Chloride (98-107) mmol/L BUN (7-17) mg/dL Glucose (74-99) mg/dL POC Glucose (mg/dL) 219 H 211 H (75-99) mg/dL Calcium (8.4-10.2) mg/dL Crossmatch 03/15/20 03/15/20 03/15/20 Range/Units 03:53 05:48 05:53 RBC 2.89 L (3.80-5.40) m/uL Hgb 5.5 L* D (11.4-16.0) gm/dL Hct 20.5 L (34.0-46.0) % MCV 70.8 L (80.0-100.0) fL MCH 18.9 L (25.0-35.0) pg MCHC 26.7 L (31.0-37.0) g/dL RDW 18.6 H (11.5-15.5) % ABG pH (7.35-7.45) ABG pCO2 (35-45) mmHg ABG pO2 (83-108) mmHg ABG HCO3 (21-25) mmol/L ABG Total CO2 (19-24) mmol/L Sodium 127 L (137-145) mmol/L Potassium 5.4 H (3.5-5.1) mmol/L Chloride 95 L (98-107) mmol/L BUN 82 H (7-17) mg/dL Glucose 173 H (74-99) mg/dL POC Glucose (mg/dL) (75-99) mg/dL Calcium 7.6 L (8.4-10.2) mg/dL Crossmatch See Detail 03/15/20 03/15/20 Range/Units 06:54 08:21 RBC (3.80-5.40) m/uL Hgb (11.4-16.0) gm/dL Hct (34.0-46.0) % MCV (80.0-100.0) fL MCH (25.0-35.0) pg MCHC (31.0-37.0) g/dL RDW (11.5-15.5) % ABG pH 7.25 L (7.35-7.45) ABG pCO2 74 H* (35-45) mmHg ABG pO2 79 L (83-108) mmHg ABG HCO3 32 H (21-25) mmol/L ABG Total CO2 34 H (19-24) mmol/L Sodium (137-145) mmol/L Potassium (3.5-5.1) mmol/L Chloride (98-107) mmol/L BUN (7-17) mg/dL Glucose (74-99) mg/dL POC Glucose (mg/dL) 240 H (75-99) mg/dL Calcium (8.4-10.2) mg/dL Crossmatch Assessment and Plan Plan: Acute blood loss anemia secondary to GI bleeding -2 units of PRBCs ordered -GI consulted -Protonix 40 IV push twice a day Acute hypoxic and hypercapnic respiratory failure in setting of acute COPD and diastolic CHF exacerbations -Patient currently on Lasix infusion with the nephrology following in setting of severe hypochloremic hyponatremia -Continue with DuoNeb's -Solu-Medrol 60 mg every 8 hourly -Patient continues to be hypercapnic with pCO2 74 this a.m. -Patient currently on BiPAP as per director of security -Chest x-ray showing consolidation, possible calcitonin levels pending Altered mental status, likely multifactorial in setting of hypercapnia with deli rium -Continue BiPAP for now Hyperkalemia -Holding home spironolactone -Nephrology on case Hyponatremia -Continues to be on the Lasix infusion as per nephrology -Monitor BMP Type II DM -Lispro insulin sliding scale blood glucose monitoring Hypothyroidism -Continue with home Synthroid dose
[2020-03-15 13:07] LABS: Glucose,Whole Blood 224 mg/dL (75-99)
[2020-03-15 18:28] LABS: Glucose,Whole Blood 187 mg/dL (75-99)
[2020-03-15 20:19] LABS: Glucose,Whole Blood 189 mg/dL (75-99)
[2020-03-15] MEDS: MONTELUKAST 10 MG TAB PO SCH (20:34)
[2020-03-15 20:44] LABS: Anisocytosis Slight; HCT 28.8 % (34.0-46.0); Hypochromasia Marked; INR 1.3 (<1.2); MCH 22.7 pg (25.0-35.0); MCHC 29.5 g/dL (31.0-37.0); Mean Platelet Volume 7.2; Microcytosis Moderate; Platelet Count 240 k/uL (150-450); Poikilocytosis Marked; Prothrombin Time 12.7 sec (9.0-12.0); RBC 3.75 m/uL (3.80-5.40); RDW 19.5 % (11.5-15.5); WBC 12.4 k/uL (3.8-10.6)
[2020-03-15 20:49] LABS: HGB 8.5 gm/dL (11.4-16.0); MCV 76.7 fL (80.0-100.0)
[2020-03-15] MEDS: ARIPiprazole 5 MG TAB PO SCH (21:24)
[2020-03-15 21:38] LABS: Folate, Serum 4.7 ng/mL
[2020-03-15 21:48] LABS: % Iron Saturation 4.61 (12.00-45.00); Ferritin 13.4 ng/mL (10.0-291.0)
--- NOTE | 2020-03-15 22:00 | P.CONS ---
History of Present Illness - Reason for Consult Consult date: 03/15/20 GI bleed Requesting physician: Oliva Silveira - Chief Complaint Shortness of breath - History of Present Illness 69-year-old female with multiple medical comorbidities including diabetes mellitus, hypertension, hyperlipidemia, hypothyroidism, severe COPD, diastolic heart failure, obesity, prior tobacco abuse who presented to the hospital with complaints of worsening shortness of breath. The patient had been experiencing increasing shortness of breath, worse with exacerbation as well as lower extremity swelling prior to presentation. Patient is currently being treated for an acute exacerbation of her COPD as well as an acute exacerbation of her diastolic heart failure. The patient has a baseline hemoglobin approximately 9- 10 subsequently developed multiple episodes of GI bleeding with maroon-colored stool noted. History is been taken in discussion with the patient as well as her who is bedside. Patient is on aspirin and subcutaneous heparin in the hospital which is currently on hold. There is no prior history of GI bleed or NSAID use at home. No history of peptic ulcer disease. No abdominal pain reported. No prior EGD or colonoscopy. Patient's hemoglobin fell to 5.5 with the episodes of bleeding and she has subsequently been transfused 2 units of packed red blood cells, other laboratory evaluation significant for WBC 8.7, platelet count of 332,000 with an INR of 1.1. Review of Systems REVIEW OF SYSTEMS: CONSTITUTIONAL: Denies any fevers, chills, weight change or fatigue. CARDIOVASCULAR: Denies any chest pain, palpitations high or low blood pressures RESPIRATORY: No hemoptysis or cough. Patient had increasing shortness of breath and lower extremity prior to presentation GENITOURINARY: No dysuria or hematuria. MUSCULOSKELETAL: No weakness reported. SKIN: Denies any new rashes or lesions, jaundice or pallor. PSYCHIATRIC: Denies any depression or anxiety. NEUROLOGY: Denies headache, denies any new focal deficits, patient has been lethargic. EARS/NOSE/THROAT: No recent hearing change, congestion, nasal discharge or sore throat. EYES: No pain in eyes, discharge or change in vision. GASTROINTESTINAL: As per HPI. Past Medical History Past Medical History: Asthma, Chest Pain / Angina, COPD, Diabetes Mellitus, Hyperlipidemia, Hypertension, Osteoarthritis (OA), Respiratory Disorder, Skin Disorder, Thyroid Disorder Additional Past Medical History / Comment(s): Obesity (BMI 35) COPD, asthma, asim betes , depression, 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 The patient is also a smoker. The patient has chronic back pain. History of Any Multi-Drug Resistant Organisms: None Reported Past Surgical History: Appendectomy, Section, Cholecystectomy, Orthopedic Surgery, Tubal Ligation Additional Past Surgical History / Comment(s): LASER SX JETHRO EYES FOR GLAUCOMA. RT KNEE ARTHROSCOPY. UNDERWENT PERCUTANEOUS NEPHROSTOLITHOTOMY Past Anesthesia/Blood Transfusion Reactions: No Reported Reaction Past Psychological History: Anxiety, Depression Smoking Status: Current every day smoker Past Alcohol Use History: None Reported Past Drug Use History: None Reported - Past Family History Mother Additional Family Medical History / Comment(s): emphysema, heart valve problems, in her slepp. Brother(s) Family Medical History: Cancer Additional Family Medical History / Comment(s): from oral cancer Father Brother(s) Family Medical History: Cancer Additional Family Medical History / Comment(s): heart disease Medications and Allergies Home Medications Medication Instructions Recorded Confirmed Type Aspirin 81 mg PO DAILY 02/06/14 03/11/20 History Zafirlukast [Accolate] 20 mg PO BID 02/06/14 03/11/20 History ARIPiprazole [Abilify] 5 mg PO HS 02/07/18 03/11/20 History metFORMIN HCL [Glucophage] 1,000 mg PO BID 02/07/18 03/11/20 History traZODone HCL 100 mg PO HS PRN 02/07/18 03/11/20 History Atorvastatin [Lipitor] 40 mg PO DAILY #30 tab 09/10/18 03/11/20 Rx Metoprolol Tartrate [Lopressor] 25 mg PO TID #90 tab 09/10/18 03/11/20 Rx Cholecalciferol [Vitamin D3 (25 1,000 unit PO DAILY 09/03/19 03/11/20 History Mcg = 1000 Iu)] Furosemide [Lasix] 20 mg PO DAILY 09/03/19 03/11/20 History Levothyroxine Sodium [Synthroid] 200 mcg PO DAILY 09/03/19 03/11/20 History lisinopriL [Zestril] 10 mg PO DAILY 09/03/19 03/11/20 History amLODIPine [Norvasc] 5 mg PO DAILY 30 Days #30 tab 09/05/19 03/11/20 Rx Albuterol Sulfate [Ventolin HFA] 1 - 2 puff INHALATION RT-Q6H PRN 03/11/20 03/11/20 History Escitalopram [Lexapro] 20 mg PO DAILY 03/11/20 03/11/20 History HYDROcodone/APAP 7.5-325MG [[place] 1 tab PO Q6H PRN 03/11/20 03/11/20 History 7.5-325] Spironolactone [Aldactone] 50 mg PO DAILY 03/11/20 03/11/20 History Allergies Allergy/AdvReac Type Severity Reaction Status Date / Time adhesive Allergy Rash/Hives Verified 03/11/20 21:54 ciprofloxacin [From Cipro] Allergy Rash/Hives Verified 03/11/20 21:54 ciprofloxacin HCl Allergy Rash/Hives Verified 03/11/20 21:54 [From Cipro] latex Allergy Rash/Hives Verified 03/11/20 21:54 nitrofurantoin Allergy Rash/Hives Verified 03/11/20 21:54 [From Macrobid] nitrofurantoin Allergy Rash/Hives Verified 03/11/20 21:54 macrocrystalline [From Macrobid] Penicillins Allergy Rash/Hives Verified 03/11/20 21:54 propoxyphene HCl Allergy Rash/Hives Verified 03/11/20 21:54 [From Darvon] propoxyphene napsylate Allergy Unknown Verified 03/11/20 21:54 [From Darvocet-N] Physical Exam Vitals: Vital Signs Temp Pulse Resp BP Pulse Ox 03/15/20 13:00 60 19 114/44 96 03/15/20 12:54 97.6 F 61 16 110/46 96 03/15/20 12:21 62 03/15/20 12:10 59 L 03/15/20 12:00 97.6 F 61 17 114/51 95 03/15/20 11:00 63 18 121/48 94 L 03/15/20 10:08 97.3 F L 64 19 121/48 94 L 03/15/20 10:00 65 20 117/45 94 L 03/15/20 09:38 97.6 F 62 22 117/45 94 L 03/15/20 09:28 97.5 F L 65 22 112/41 95 03/15/20 09:00 62 24 133/52 93 L 03/15/20 08:47 62 03/15/20 08:35 68 03/15/20 08:00 97.7 F 73 23 99/44 03/15/20 07:00 68 20 109/46 94 L 03/15/20 06:00 61 21 108/49 90 L 03/15/20 05:00 67 21 108/47 90 L 03/15/20 04:00 97.6 F 67 25 H 115/55 92 L 03/15/20 03:00 68 24 109/54 92 L 03/15/20 02:03 95 03/15/20 02:00 68 26 H 111/52 91 L 03/15/20 01:00 66 24 116/54 90 L 03/15/20 00:00 97.6 F 67 24 119/56 91 L 03/14/20 23:00 66 26 H 126/58 92 L 03/14/20 22:00 68 24 120/61 90 L 03/14/20 21:43 69 03/14/20 21:30 69 03/14/20 21:00 64 24 135/62 91 L 03/14/20 20:00 97.3 F L 70 28 H 138/61 90 L 03/14/20 19:00 68 27 H 136/67 90 L 03/14/20 18:00 63 25 H 122/61 92 L 03/14/20 17:00 60 25 H 139/63 93 L 03/14/20 16:55 65 03/14/20 16:42 64 03/14/20 16:00 98.6 F 64 21 122/57 93 L 03/14/20 15:00 68 25 H 126/71 93 L 03/14/20 14:00 59 L 26 H 117/60 90 L Intake and Output 03/14/20 03/15/20 03/15/20 22:59 06:59 14:59 Intake Total 360 360 821.167 Output Total 1650 1500 975 Balance -1290 -1140 -153.833 Intake: IV 360 260 180 0.9 @ KVO 80 80 70 Furosemide 100 mg In 80 80 10 Sodium Chloride 0.9% 90 ml @ 10 MG/HR 10 mls/hr IV .Q10H KIET Rx#: [id number] Magnesium Sulfate-D5w Pmx 200 100 100 1 gm In Dextrose/Water 1 100ml.bag @ 100 mls/hr IVPB Q1H KIET Rx#: [id number] Intake, IV Titration 100 21.167 Amount Furosemide 100 mg In 100 21.167 Sodium Chloride 0.9% 90 ml @ 10 MG/HR 10 mls/hr IV .Q10H KIET Rx#: [id number] Blood Product 620 Rc As-1 Unit 310 [id number] Output: Urine 1650 1500 975 Other: Voiding Method Indwelling Catheter Indwelling Catheter Indwelling Catheter Weight 105.5 kg On physical examination, patient appears comfortable in no apparent distress. HEAD: Normocephalic, atraumatic. EYES: No scleral icterus. No conjunctival injection. MOUTH: No lesions, currently receiving BiPAP therapy. NECK: Trachea midline, no gross abnormalities. CHEST: Decreased air entry in all campbell. HEART: S1-S2 appreciated. ABDOMEN: Soft, obese. Bowel sounds are positive. No organomegaly. No guarding or rigidity. EXTREMITIES: Bilateral pedal edema. SKIN: No rashes, no jaundice. NEUROLOGIC: Alert and oriented to person, however lethargic and difficult to arouse. Results CBC & Chem 7: 03/15/20 20:19 03/15/20 03:53 Labs: Abnormal Lab Results - Last 24 Hours (Table) 03/12/20 03/14/20 03/15/20 Range/Units 05:05 16:10 03:53 RBC (3.80-5.40) m/uL Hgb (11.4-16.0) gm/dL Hct (34.0-46.0) % MCV (80.0-100.0) fL MCH (25.0-35.0) pg MCHC (31.0-37.0) g/dL RDW (11.5-15.5) % Retic Count (0.5-2.0) % ABG pH 7.12 L* (7.35-7.45) ABG pCO2 83 H* (35-45) mmHg ABG pO2 (83-108) mmHg ABG HCO3 (21-25) mmol/L ABG Total CO2 (19-24) mmol/L Sodium 127 L (137-145) mmol/L Potassium 5.4 H (3.5-5.1) mmol/L Chloride 95 L (98-107) mmol/L BUN 82 H (7-17) mg/dL Glucose 173 H (74-99) mg/dL POC Glucose (mg/dL) 211 H (75-99) mg/dL Calcium 7.6 L (8.4-10.2) mg/dL Crossmatch 03/15/20 03/15/20 03/15/20 Range/Units 05:48 05:53 06:54 RBC 2.89 L (3.80-5.40) m/uL Hgb 5.5 L* D (11.4-16.0) gm/dL Hct 20.5 L (34.0-46.0) % MCV 70.8 L (80.0-100.0) fL MCH 18.9 L (25.0-35.0) pg MCHC 26.7 L (31.0-37.0) g/dL RDW 18.6 H (11.5-15.5) % Retic Count (0.5-2.0) % ABG pH (7.35-7.45) ABG pCO2 (35-45) mmHg ABG pO2 (83-108) mmHg ABG HCO3 (21-25) mmol/L ABG Total CO2 (19-24) mmol/L Sodium (137-145) mmol/L Potassium (3.5-5.1) mmol/L Chloride (98-107) mmol/L BUN (7-17) mg/dL Glucose (74-99) mg/dL POC Glucose (mg/dL) 240 H (75-99) mg/dL Calcium (8.4-10.2) mg/dL Crossmatch See Detail 03/15/20 03/15/20 03/15/20 Range/Units 07:00 08:21 13:06 RBC (3.80-5.40) m/uL Hgb (11.4-16.0) gm/dL Hct (34.0-46.0) % MCV (80.0-100.0) fL MCH (25.0-35.0) pg MCHC (31.0-37.0) g/dL RDW (11.5-15.5) % Retic Count 2.1 H (0.5-2.0) % ABG pH 7.25 L (7.35-7.45) ABG pCO2 74 H* (35-45) mmHg ABG pO2 79 L (83-108) mmHg ABG HCO3 32 H (21-25) mmol/L ABG Total CO2 34 H (19-24) mmol/L Sodium (137-145) mmol/L Potassium (3.5-5.1) mmol/L Chloride (98-107) mmol/L BUN (7-17) mg/dL Glucose (74-99) mg/dL POC Glucose (mg/dL) 224 H (75-99) mg/dL Calcium (8.4-10.2) mg/dL Crossmatch Microbiology - Last 24 Hours (Table) 03/14/20 08:08 Blood Culture - Preliminary Blood No Growth after 24 hours Chest x-ray: report reviewed (Small bilateral pleural effusions and cardiomegaly on chest x-ray) Assessment and Plan (1) GI bleed Narrative/Plan: 69-year-old female with multiple medical comorbidities currently admitted and receiving treatment for acute diastolic heart failure and acute exacerbation of COPD. During her hospitalization stay the patient developed multiple episodes of maroon-colored bowel movements and was noted to have a fall in her hemoglobin from baseline of 9-10-5.5. She is receiving 2 units of packed red blood cells. History taken from the patient and her were significant for no prior endoscopic evaluation, no history of peptic ulcer disease, no NSAID use and no abdominal pain. Unclear etiology, may be related to upper GI bleed from peptic ulcer disease, AVM, gastritis or esophagitis or lower GI bleed from diverticular disease or other etiology. Current Visit: Yes Status: Acute Code(s): K92.2 - GASTROINTESTINAL HEMORRHAGE, UNSPECIFIED SNOMED Code(s): 96615531 (2) Anemia associated with acute blood loss Current Visit: Yes Status: Acute Code(s): D62 - ACUTE POSTHEMORRHAGIC ANEMIA SNOMED Code(s): 735262329 Plan: Supportive care Okay for clear liquid diet Continue to monitor hemoglobin and hematocrit and transfuse as needed Continue Protonix 40 mg twice daily Continue optimization of her respiratory status with treatment of COPD and acute diastolic heart failure Continue management per loadmaster service Continue to monitor stool output Given the patient's underlying comorbidities including severe COPD, diastolic heart failure and pulmonary hypertension she remains high risk for sedation and decision on endoscopic intervention will be based on clinical course as well as laboratory studies and hemoglobin trend Case discussed with the patient's at length who agrees with the current management strategy with all of his questions answered to his satisfaction Thank you for allowing us to participate in the care of the patient
[2020-03-16] MEDS: methylPREDNISolone SOD SUCCI 125 MG/2 ML VIAL IV SCH ×3 (00:10→18:16)
--- NOTE | 2020-03-16 02:53 | XR ---
EXAMINATION TYPE: XR chest 1V DATE OF EXAM: 03/16/2020 COMPARISON: Yesterday HISTORY: Short of breath TECHNIQUE: Single view. Heart appears slightly enlarged. There is bilateral lower lobe patchy infiltrates and atelectasis. Th ere is no gross heart failure. There are chest leads. IMPRESSION: Bilateral pulmonary infiltrates probably increasing compared to exam yesterday. No obviou s heart failure.
[2020-03-16 03:00] LABS: ABG Base Excess 9.8 mmol/L; ABG HCO3 37 mmol/L (21-25); ABG Oxygen Saturation 86.5 % (94-97); ABG PH 7.25 (7.35-7.45); ABG TCO2 40 mmol/L (19-24); Allen Test Performed? Yes
[2020-03-16 03:07] LABS: ABG PCO2 85 mmHg (35-45); ABG PO2 58 mmHg (83-108)
[2020-03-16] MEDS ORDERED: propofoL 100 ML IV ONE (03:37)
[2020-03-16] MEDS ORDERED: ETOMIDATE 2 MG/ML 10 ML VIAL ONE (04:00)
--- NOTE | 2020-03-16 04:35 | XR ---
EXAMINATION TYPE: XR chest 1V DATE OF EXAM: 03/16/2020 COMPARISON: Today HISTORY: Hypoxemia. Intubated. TECHNIQUE: Single view FINDINGS: There is nasogastric tube in the stomach. The endotracheal tube is 3 cm from the marine. Th ere is some patchy infiltrate and atelectasis right lower lobe. There is minimal atelectasis left aristeo g base. I see no definite heart failure. There are chest leads. IMPRESSION: Endotracheal tube in fairly good position. Infiltrate and atelectasis right lung base wit h pleural fluid increased compared to exam one hour ago.
[2020-03-16 05:16] LABS: ABG Base Excess 9.4 mmol/L; ABG HCO3 35 mmol/L (21-25); ABG Oxygen Saturation 97.3 % (94-97); ABG PCO2 60 mmHg (35-45); ABG PH 7.37 (7.35-7.45); ABG PO2 86 mmHg (83-108); ABG TCO2 37 mmol/L (19-24); Allen Test Performed? Yes
[2020-03-16 05:51] LABS: Anisocytosis Slight; HCT 28.5 % (34.0-46.0); Hypochromasia Marked; MCH 21.7 pg (25.0-35.0); MCHC 28.2 g/dL (31.0-37.0); MCV 76.9 fL (80.0-100.0); Mean Platelet Volume 7.3; Microcytosis Moderate; Platelet Count 194 k/uL (150-450); Poikilocytosis Marked; RBC 3.71 m/uL (3.80-5.40); WBC 9.8 k/uL (3.8-10.6)
[2020-03-16 06:16] LABS: Calcium 7.9 mg/dL (8.4-10.2); Magnesium 1.9 mg/dL (1.6-2.3); Potassium 4.9 mmol/L (3.5-5.1)
[2020-03-16] MEDS: INSULIN ASPART (NovoLOG) 100 UNIT/ML VIAL SQ SCH ×3 (06:35→18:15)
[2020-03-16] MEDS: LEVOTHYROXINE 100 MCG TAB PO SCH (06:35)
--- NOTE | 2020-03-16 07:27 | PN ---
PROGRESS NOTE PULMONARY/CRITICAL CARE PROGRESS NOTE: DATE OF SERVICE: March 16, 2020 CRITICAL CARE TIME: 33 minutes. This is a patient who was admitted back on March 11. She was admitted with a diagnosis of acute hypoxemic respiratory failure secondary to both COPD and diastolic CHF. In addition, she had a suspected lower GI bleed. The patient's hemoglobin had gone down to 5.5, and she did receive 2 units of PRBCs. Anyway, early this morning, the nurses called me because she was much more obtunded. For that reason, and based on her blood gases, she was intubated and mechanically ventilated. This occurred on March 16. Currently, she is on the volume assist-control mode rate of 22, tidal volume 350, FiO2 of 50%, PEEP of 5. Blood gases show pO2 of 86, pCO2 of 60, pH 7.37. She is on Lasix drip a 10 mg an hour, propofol at 30 mcg/kg per minute. She will need tube feeds started. She also should be on updrafts q.4 around the clock. Again, she was intubated on March 16. She has a history of multiple medical problems including kidney stones, previous tobacco use, diabetes mellitus, DJD, pulmonary hypertension, valvular heart disease, and very severe COPD with an FEV1% that is 42. We did confirm with her that she would want to be intubated. PHYSICAL EXAMINATION: VITAL SIGNS: Current vital signs include a temperature 98.2, heart rate 70, respiratory rate 22, blood pressure 99/42, mean 61, saturations are 97% on 50% FiO2 and 5 of PEEP. GENERAL: Appears in no acute distress. HEENT: Examination is grossly unremarkable. She has an orally placed endotracheal tube and NG tube. NECK: Supple. Full range of motion. No adenopathy or thyromegaly. Neck veins are flat. CARDIOVASCULAR: Examination reveals regular rhythm and rate. Heart rate about 60 beats per minute. S1, S2 normal. Heart sounds are distant. LUNGS: Reveal coarse bilateral rhonchi. Some expiratory wheeze. Breath sounds equal but diminished throughout. ABDOMEN: Obese. Bowel sounds are heard. EXTREMITIES: Are intact. There is edema. It is about 1+. There is some pitting. No cyanosis or clubbing. SKIN: Without rash. NEUROLOGIC: Examination is difficult to assess given the fact that she is on propofol at 30 mcg/kg per minute. LABS: Labs are reviewed. White count 9.8, hemoglobin 8, hematocrit 28.5, platelet count 194,000. The blood gases have been noted. Prior blood gases prior to intubation in what caused us to intubate her showed a pO2 of 58, pCO2 of 85, and a pH of 7.25. That was on 40% on the BiPAP. That plus the fact that she was very obtunded. She was poorly responsive. Sodium 131, potassium 4.9, chloride 97, CO2 of 30. Anion gap 4. BUN and creatinine were 80 and 0.9. The rest of the labs are reviewed. Current microbiology is pending. Post intubation chest x-ray shows endotracheal tube about 3.5 cm above the tracheal marine. Lung campbell are relatively clear, although there is some bilateral effusions and either elevated right hemidiaphragm or infiltrate atelectasis at the right lung base. MEDICATIONS: Medications are reviewed. Unnecessary medications will be discontinued. ASSESSMENT: 1. Acute on chronic hypoxemic and hypercapnic respiratory failure, primarily secondary to chronic obstructive pulmonary disease, but also diastolic congestive heart failure, requiring intubation and mechanical ventilation on March 16 for worsening mental status and worsening arterial blood gases. 2. Acute blood loss anemia secondary to gastrointestinal bleed, with maroon-colored stools, status post 2 units of PRBCs. 3. Severe chronic obstructive pulmonary disease, FEV1 42% of predicted. 4. Chronic cor pulmonale. 5. Hypothyroidism. 6. Severe pulmonary hypertension with moderate tricuspid regurgitation and mild mitral regurgitation. 7. Degenerative joint disease. 8. Type 2 diabetes mellitus. 9. Prior heavy tobacco use. 10.History of kidney stones. PLAN: Currently, the patient required intubation and mechanical ventilation. This was accomplished early this morning. Her repeat blood gases are excellent. She remains on a Lasix drip a 10 mg an hour, propofol at 30 mcg/kg per minute. She looks to be getting significantly prerenal. In my opinion, I hope we cut back the Lasix. Her chest x-ray is reviewed. Additional recommendations and suggestions are forthcoming. We will make sure she is on updrafts q.4 and that we start tube feeds. Medications are reviewed thoroughly. No additional recommendations are made. CRITICAL CARE TIME: 33 minutes. MMMALICKL / TODDN: [id number] /
[2020-03-16] MEDS ORDERED: CISATRACURIUM 2 MG/ML 5 ML VIAL IV ONE (07:46)
[2020-03-16] MEDS: CISATRACURIUM 2 MG/ML 5 ML VIAL IV ONE ×2 (07:47→07:49)
[2020-03-16] MEDS: FORMOTEROL FUMARATE 20 MCG/2 ML NEBU INHALATION SCH ×2 (08:07→18:55)
[2020-03-16] MEDS: BUDESONIDE 1 MG/2 ML NEBU INHALATION SCH ×2 (08:07→18:55)
[2020-03-16] MEDS: IPRATROPIUM-ALBUTEROL 3 ML NEB INHALATION SCH ×5 (08:07→23:36)
[2020-03-16] MEDS: MAGNESIUM SULFATE-D5W PMX 1 GM in DEXTROSE/WATER 1 100ML.BAG IVPB SCH ×2 (09:11→10:39)
[2020-03-16] MEDS: CHLORHEXIDINE GLUCONATE 15 ML CUP MUCOUS MEM SCH ×2 (09:12→20:38)
[2020-03-16] MEDS: PANTOPRAZOLE 40 MG/10 ML VIAL IVP SCH ×2 (09:12→20:38)
[2020-03-16] MEDS: METOPROLOL TARTRATE 25 MG TAB PO SCH ×3 (09:14→21:42)
[2020-03-16] MEDS: NYSTATIN 100,000UNIT/GM CREAM 30 GM TUBE TOPICAL SCH ×3 (09:20→21:42)
[2020-03-16] MEDS: ATORVASTATIN 40 MG TAB PO SCH (09:20)
[2020-03-16] MEDS: ESCITALOPRAM 20 MG TAB PO SCH (09:20)
[2020-03-16] MEDS ORDERED: NOREPINEPHRIN 4 MG-0.9% NS PMX 4 MG/250 ML ML IV ONE (10:08)
--- NOTE | 2020-03-16 10:08 | PCN ---
PROCEDURE NOTE PROCEDURE: Right femoral vein triple-lumen catheter. PREOPERATIVE DIAGNOSIS: Administration of fluids and pressors. POSTOPERATIVE DIAGNOSIS: Administration of fluids and pressors. CABLE DISPATCHER: Dr. Arora. There was no immediate complication. A triple-lumen catheter was placed. There was good blood return from all 3 ports. The catheter was sutured in place. There was no immediate complication. Sterile dressing was applied by the nurse. The patient tolerated the procedure well. MMODL / IJN: [id number] /
--- NOTE | 2020-03-16 10:13 | PCN ---
PROCEDURE NOTE PROCEDURE: Left radial art line. OPERATORS: Dr. Arora and Lashaun Sheriff. REASON FOR THE PROCEDURE: Frequent blood gases and blood gas monitoring. POSTOPERATIVE DIAGNOSIS: Frequent blood gases and blood gas monitoring. There was informed consent and universal timeout. There was no immediate complication. We used a left radial site. There was good blood return and waveform. The patient tolerated the procedure well. There was no immediate complication. Catheter was sutured in place. Sterile dressing was applied by the nurse. MMODL / TODDN: [id number] /
[2020-03-16] MEDS: NOREPINEPHRINE 4 MG in SODIUM CHLORIDE 0.9% 250 ML IV SCH (10:15)
[2020-03-16] MEDS ORDERED: SODIUM CHLORIDE 0.9% 1,000 ML IV ONE (10:29)
--- NOTE | 2020-03-16 10:30 | P.PN ---
Subjective Patient is seen in follow-up for hyponatremia and volume overload. Status post blood transfusion on March 15. Hemoglobin 8.0 today. Lasix drip held due to hypotension. She is receiving 1 L bolus of normal saline. Urine output has been close to 400 mL an hour. Sodium level up to 131. Vital signs are stable. Blood pressure is lower side. General: The patient appeared well nourished and normally developed. Intubated. HEENT: Head exam is unremarkable. Neck is without jugular venous distension. LUNGS: Breath sounds decreased. HEART: Regular rate and rhythm. ABDOMEN: Soft, nontender. EXTREMITITES: 1+ edema. Objective - Vital Signs Vital signs: Vital Signs Temp 98.2 F 03/16/20 04:00 Pulse 62 03/16/20 09:00 Resp 22 03/16/20 09:00 BP 124/60 03/16/20 08:00 Pulse Ox 95 03/16/20 09:00 Intake & Output 03/15/20 03/16/20 03/16/20 18:59 06:59 18:59 Intake Total 1181.167 241.417 45.998 Output Total 2024 1864 1000 Balance -843.833 -1623.583 -954.002 Weight 100.5 kg Intake: IV 230 220 0.9 @ KVO 120 120 Furosemide 100 mg In 10 100 Sodium Chloride 0.9% 90 ml @ 10 MG/HR 10 mls/hr IV .Q10H KIET Rx#: [id number] Magnesium Sulfate-D5w Pmx 100 1 gm In Dextrose/Water 1 100ml.bag @ 100 mls/hr IVPB Q1H KIET Rx#: [id number] Intake, IV Titration 21.167 21.417 45.998 Amount Furosemide 100 mg In 21.167 Sodium Chloride 0.9% 90 ml @ 10 MG/HR 10 mls/hr IV .Q10H KIET Rx#: [id number] propofoL 1,000 mg In 21.417 45.998 Empty Bag 1 bag @ Titrate IV .Q0M KIET Rx#: [id number] Blood Product 930 Rc As-1 Unit 310 [id number] Rc As-1 Unit 310 [id number] Output: Urine 2024 1864 999 Other: Voiding Method Indwelling Catheter Indwelling Catheter Indwelling Catheter ABP, PAP, CO, CI - Last Documented Arterial Blood Pressure 89/53 - Labs CBC & Chem 7: 03/16/20 05:34 03/16/20 05:34 Labs: Abnormal Lab Results - Last 24 Hours (Table) 03/15/20 03/15/20 03/15/20 Range/Units 05:53 07:00 13:06 WBC (3.8-10.6) k/uL RBC (3.80-5.40) m/uL Hgb (11.4-16.0) gm/dL Hct (34.0-46.0) % MCV (80.0-100.0) fL MCH (25.0-35.0) pg MCHC (31.0-37.0) g/dL RDW (11.5-15.5) % PT (9.0-12.0) sec INR (<1.2) ABG pH (7.35-7.45) ABG pCO2 (35-45) mmHg ABG pO2 (83-108) mmHg ABG HCO3 (21-25) mmol/L ABG Total CO2 (19-24) mmol/L ABG O2 Saturation (94-97) % Sodium (137-145) mmol/L Chloride (98-107) mmol/L BUN (7-17) mg/dL Glucose (74-99) mg/dL POC Glucose (mg/dL) 224 H (75-99) mg/dL Calcium (8.4-10.2) mg/dL Iron 16 L (50-170) ug/dL % Saturation 4.61 L (12.00-45.00) Crossmatch See Detail 03/15/20 03/15/20 03/15/20 Range/Units 18:26 20:17 20:19 WBC (3.8-10.6) k/uL RBC (3.80-5.40) m/uL Hgb (11.4-16.0) gm/dL Hct (34.0-46.0) % MCV (80.0-100.0) fL MCH (25.0-35.0) pg MCHC (31.0-37.0) g/dL RDW (11.5-15.5) % PT 12.7 H (9.0-12.0) sec INR 1.3 H (<1.2) ABG pH (7.35-7.45) ABG pCO2 (35-45) mmHg ABG pO2 (83-108) mmHg ABG HCO3 (21-25) mmol/L ABG Total CO2 (19-24) mmol/L ABG O2 Saturation (94-97) % Sodium (137-145) mmol/L Chloride (98-107) mmol/L BUN (7-17) mg/dL Glucose (74-99) mg/dL POC Glucose (mg/dL) 187 H 189 H (75-99) mg/dL Calcium (8.4-10.2) mg/dL Iron (50-170) ug/dL % Saturation (12.00-45.00) Crossmatch 03/15/20 03/16/20 03/16/20 Range/Units 20:19 02:55 05:10 WBC 12.4 H (3.8-10.6) k/uL RBC 3.75 L (3.80-5.40) m/uL Hgb 8.5 L D (11.4-16.0) gm/dL Hct 28.8 L (34.0-46.0) % MCV 76.7 L D (80.0-100.0) fL MCH 22.7 L (25.0-35.0) pg MCHC 29.5 L (31.0-37.0) g/dL RDW 19.5 H (11.5-15.5) % PT (9.0-12.0) sec INR (<1.2) ABG pH 7.25 L (7.35-7.45) ABG pCO2 85 H* 60 H (35-45) mmHg ABG pO2 58 L* (83-108) mmHg ABG HCO3 37 H 35 H (21-25) mmol/L ABG Total CO2 40 H 37 H (19-24) mmol/L ABG O2 Saturation 86.5 L 97.3 H (94-97) % Sodium (137-145) mmol/L Chloride (98-107) mmol/L BUN (7-17) mg/dL Glucose (74-99) mg/dL POC Glucose (mg/dL) (75-99) mg/dL Calcium (8.4-10.2) mg/dL Iron (50-170) ug/dL % Saturation (12.00-45.00) Crossmatch 03/16/20 03/16/20 Range/Units 05:34 05:34 WBC (3.8-10.6) k/uL RBC 3.71 L (3.80-5.40) m/uL Hgb 8.0 L (11.4-16.0) gm/dL Hct 28.5 L (34.0-46.0) % MCV 76.9 L (80.0-100.0) fL MCH 21.7 L (25.0-35.0) pg MCHC 28.2 L (31.0-37.0) g/dL RDW 20.0 H (11.5-15.5) % PT (9.0-12.0) sec INR (<1.2) ABG pH (7.35-7.45) ABG pCO2 (35-45) mmHg ABG pO2 (83-108) mmHg ABG HCO3 (21-25) mmol/L ABG Total CO2 (19-24) mmol/L ABG O2 Saturation (94-97) % Sodium 131 L (137-145) mmol/L Chloride 97 L (98-107) mmol/L BUN 88 H (7-17) mg/dL Glucose 155 H (74-99) mg/dL POC Glucose (mg/dL) (75-99) mg/dL Calcium 7.9 L (8.4-10.2) mg/dL Iron (50-170) ug/dL % Saturation (12.00-45.00) Crossmatch Microbiology - Last 24 Hours (Table) 03/14/20 08:08 Blood Culture - Preliminary Blood No Growth after 24 hours Assessment and Plan Plan: Assessment: 1. Hypervolemic hyponatremia. Sodium level 131 today. Status post [facility] March 14. Lasix drip held as of this morning due to hypotension. 2. Acute GI bleed status post blood transfusion. GI following. 3. Acute hypercapnic respiratory failure. 4. Mild hyperkalemia secondary to GI bleed. Was also on lisinopril. Improved. 5. Volume overload. Improved with diuresis. 6. Acute diastolic CHF with severe pulmonary hypertension. Plan: Discontinue Lasix drip. Once blood pressure improves, can start IV push Lasix. Continue to monitor renal function and urine output.
--- NOTE | 2020-03-16 11:25 | P.PN ---
Subjective Progress Note Date: 03/16/20 The patient is a 69-year-old female with a PMH of type II DM, hypertension, hyperlipidemia, hypothyroidism, severe COPD, diastolic CHF, and morbid obesity who presented to the ED with shortness of breath along with lower extremity swelling. The patient was admitted for hypoxic and hypercapnic respiratory failure with CHF and COPD exacerbation with fluid overload. The patient was placed on IV Lasix with IV steroids and bronchodilators. The patient had episode of GI bleeding on 03/15 with a drop from 8.5-5.5 gm/dL. The patient was given 2 units of PRBCs and GI recommended continued monitoring. The patient's hypercapnia worsened on 03/16 to a pCO2 of 85. Her mental status also deteriorated and the patient was subsequently intubated by the yield improvement engineer. She was seen and evaluated in the medical ICU on 03/16. The patient was sedated and minimally arousable. Objective - Vital Signs Vital signs: Vital Signs Temp 98.2 F 03/16/20 04:00 Pulse 67 03/16/20 11:00 Resp 22 03/16/20 11:00 BP 92/42 03/16/20 11:00 Pulse Ox 95 03/16/20 11:00 Intake & Output 03/15/20 03/16/20 03/16/20 18:59 06:59 18:59 Intake Total 1181.167 241.417 225.785 Output Total 2024 1865 1525 Balance -843.833 -1623.583 -1299.215 Weight 100.5 kg Intake: IV 230 220 0.9 @ KVO 120 120 Furosemide 100 mg In 10 100 Sodium Chloride 0.9% 90 ml @ 10 MG/HR 10 mls/hr IV .Q10H KIET Rx#: [id number] Magnesium Sulfate-D5w Pmx 100 1 gm In Dextrose/Water 1 100ml.bag @ 100 mls/hr IVPB Q1H KIET Rx#: [id number] Intake, IV Titration 21.167 21.417 225.785 Amount Furosemide 100 mg In 21.167 78.833 Sodium Chloride 0.9% 90 ml @ 10 MG/HR 10 mls/hr IV .Q10H KIET Rx#: [id number] Norepinephrine 4 mg In 16.976 Sodium Chloride 0.9% 250 ml @ 0.05 MCG/KG/MIN 19. 145 mls/hr IV .[id number] KIET Rx#:[id number] propofoL 1,000 mg In 21.417 129.976 Empty Bag 1 bag @ Titrate IV .Q0M KIET Rx#: [id number] Blood Product 930 Rc As-1 Unit 310 [id number] Rc As-1 Unit 310 [id number] Output: Urine 2024 186 1525 Other: Voiding Method Indwelling Catheter Indwelling Catheter Indwelling Catheter ABP, PAP, CO, CI - Last Documented Arterial Blood Pressure 103/61 - Exam General: Non-toxic, in no acute distress, appears stated age, morbidly obese, on mechanical ventilation HEENT: NC/AT, anicteric sclerae, moist conjunctiva, no lid-lag, PERRL Cardiovascular: S1/S2 wnl, no murmurs Lungs: Somewhat poor air entry bilaterally with expiratory wheezing Abdominal: Soft, nontender, BS+ Skin: Warm, dry Extremities: Anasarca with 1+ lower extremity pitting edema, no erythema noted Psychiatric: Sedated Neuro: Unable to perform - Labs CBC & Chem 7: 03/16/20 05:34 03/16/20 05:34 Labs: Abnormal Lab Results - Last 24 Hours (Table) 03/15/20 03/15/20 03/15/20 Range/Units 05:53 07:00 13:06 WBC (3.8-10.6) k/uL RBC (3.80-5.40) m/uL Hgb (11.4-16.0) gm/dL Hct (34.0-46.0) % MCV (80.0-100.0) fL MCH (25.0-35.0) pg MCHC (31.0-37.0) g/dL RDW (11.5-15.5) % PT (9.0-12.0) sec INR (<1.2) ABG pH (7.35-7.45) ABG pCO2 (35-45) mmHg ABG pO2 (83-108) mmHg ABG HCO3 (21-25) mmol/L ABG Total CO2 (19-24) mmol/L ABG O2 Saturation (94-97) % Sodium (137-145) mmol/L Chloride (98-107) mmol/L BUN (7-17) mg/dL Glucose (74-99) mg/dL POC Glucose (mg/dL) 224 H (75-99) mg/dL Calcium (8.4-10.2) mg/dL Iron 16 L (50-170) ug/dL % Saturation 4.61 L (12.00-45.00) Crossmatch See Detail 03/15/20 03/15/20 03/15/20 Range/Units 18:26 20:17 20:19 WBC (3.8-10.6) k/uL RBC (3.80-5.40) m/uL Hgb (11.4-16.0) gm/dL Hct (34.0-46.0) % MCV (80.0-100.0) fL MCH (25.0-35.0) pg MCHC (31.0-37.0) g/dL RDW (11.5-15.5) % PT 12.7 H (9.0-12.0) sec INR 1.3 H (<1.2) ABG pH (7.35-7.45) ABG pCO2 (35-45) mmHg ABG pO2 (83-108) mmHg ABG HCO3 (21-25) mmol/L ABG Total CO2 (19-24) mmol/L ABG O2 Saturation (94-97) % Sodium (137-145) mmol/L Chloride (98-107) mmol/L BUN (7-17) mg/dL Glucose (74-99) mg/dL POC Glucose (mg/dL) 187 H 189 H (75-99) mg/dL Calcium (8.4-10.2) mg/dL Iron (50-170) ug/dL % Saturation (12.00-45.00) Crossmatch 03/15/20 03/16/20 03/16/20 Range/Units 20:19 02:55 05:10 WBC 12.4 H (3.8-10.6) k/uL RBC 3.75 L (3.80-5.40) m/uL Hgb 8.5 L D (11.4-16.0) gm/dL Hct 28.8 L (34.0-46.0) % MCV 76.7 L D (80.0-100.0) fL MCH 22.7 L (25.0-35.0) pg MCHC 29.5 L (31.0-37.0) g/dL RDW 19.5 H (11.5-15.5) % PT (9.0-12.0) sec INR (<1.2) ABG pH 7.25 L (7.35-7.45) ABG pCO2 85 H* 60 H (35-45) mmHg ABG pO2 58 L* (83-108) mmHg ABG HCO3 37 H 35 H (21-25) mmol/L ABG Total CO2 40 H 37 H (19-24) mmol/L ABG O2 Saturation 86.5 L 97.3 H (94-97) % Sodium (137-145) mmol/L Chloride (98-107) mmol/L BUN (7-17) mg/dL Glucose (74-99) mg/dL POC Glucose (mg/dL) (75-99) mg/dL Calcium (8.4-10.2) mg/dL Iron (50-170) ug/dL % Saturation (12.00-45.00) Crossmatch 03/16/20 03/16/20 Range/Units 05:34 05:34 WBC (3.8-10.6) k/uL RBC 3.71 L (3.80-5.40) m/uL Hgb 8.0 L (11.4-16.0) gm/dL Hct 28.5 L (34.0-46.0) % MCV 76.9 L (80.0-100.0) fL MCH 21.7 L (25.0-35.0) pg MCHC 28.2 L (31.0-37.0) g/dL RDW 20.0 H (11.5-15.5) % PT (9.0-12.0) sec INR (<1.2) ABG pH (7.35-7.45) ABG pCO2 (35-45) mmHg ABG pO2 (83-108) mmHg ABG HCO3 (21-25) mmol/L ABG Total CO2 (19-24) mmol/L ABG O2 Saturation (94-97) % Sodium 131 L (137-145) mmol/L Chloride 97 L (98-107) mmol/L BUN 88 H (7-17) mg/dL Glucose 155 H (74-99) mg/dL POC Glucose (mg/dL) (75-99) mg/dL Calcium 7.9 L (8.4-10.2) mg/dL Iron (50-170) ug/dL % Saturation (12.00-45.00) Crossmatch Microbiology - Last 24 Hours (Table) 03/14/20 08:08 Blood Culture - Preliminary Blood No Growth after 48 hours Assessment and Plan Plan: Acute hypoxic and hypercapnic respiratory failure in setting of acute COPD and diastolic CHF exacerbations -Status post endotracheal intubation on 03/16 -Solu-Medrol 60 mg every 8 hourly -Defer to x ray nurse -Lasix drip held due to hypotension -Patient receiving 1 L normal saline bolus Acute blood loss anemia secondary to GI bleeding -Status post 2 units of PRBCs -Continue to monitor CBC -Protonix 40 IV push twice a day Altered mental status, likely multifactorial in setting of hypercapnia with delirium -Status post intubation Hyperkalemia, resolved -Holding home spironolactone -Nephrology on case Hyponatremia -Continues to be on the Lasix infusion as per nephrology -Monitor BMP Type II DM -Lispro insulin sliding scale blood glucose monitoring Hypothyroidism -Continue with home Synthroid dose
[2020-03-16 11:49] LABS: Glucose,Whole Blood 164 mg/dL (75-99)
[2020-03-16 18:15] LABS: Glucose,Whole Blood 211 mg/dL (75-99)
[2020-03-16] MEDS: ARIPiprazole 5 MG TAB PO SCH (20:39)
[2020-03-16 23:52] LABS: Glucose,Whole Blood 201 mg/dL (75-99)
[2020-03-17] MEDS: INSULIN ASPART (NovoLOG) 100 UNIT/ML VIAL SQ SCH ×4 (00:14→18:24)
[2020-03-17] MEDS: methylPREDNISolone SOD SUCCI 125 MG/2 ML VIAL IV SCH ×3 (00:14→16:16)
[2020-03-17] MEDS: IPRATROPIUM-ALBUTEROL 3 ML NEB INHALATION SCH ×6 (03:54→23:30)
[2020-03-17 05:08] LABS: ABG Base Excess 14.3 mmol/L; ABG HCO3 38 mmol/L (21-25); ABG Oxygen Saturation 96.4 % (94-97); ABG PCO2 53 mmHg (35-45); ABG PH 7.47 (7.35-7.45); ABG PO2 79 mmHg (83-108); ABG TCO2 40 mmol/L (19-24)
[2020-03-17 05:09] LABS: Allen Test Performed? no
[2020-03-17 05:16] LABS: Anisocytosis Moderate; Basophils % (A) 0 %; Eosinophils % (A) 0 %; HCT 22.8 % (34.0-46.0); Hypochromasia Marked; Lymphocytes # (A) 0.2 k/uL (1.0-4.8); Lymphocytes % (A) 2 %; MCH 21.8 pg (25.0-35.0); MCHC 29.5 g/dL (31.0-37.0); MCV 73.9 fL (80.0-100.0); Microcytosis Marked; Monocytes # (A) 0.5 k/uL (0-1.0); Monocytes % (A) 5 %; Neutrophils # (A) 9.6 k/uL (1.3-7.7); Neutrophils % (A) 91 %; Platelet Count 180 k/uL (150-450); Poikilocytosis Marked; RBC 3.09 m/uL (3.80-5.40); WBC 10.5 k/uL (3.8-10.6)
[2020-03-17 05:22] LABS: HGB 6.7 gm/dL (11.4-16.0)
[2020-03-17 05:30] LABS: African American GFR (CKD) >90 (>60 ml/min/1.73 sqM); Anion Gap 1 mmol/L; Blood Urea Nitrogen 72 mg/dL (7-17); Calcium 7.7 mg/dL (8.4-10.2); Carbon Dioxide 34 mmol/L (22-30); Chloride 99 mmol/L (98-107); Glucose 170 mg/dL (74-99); Magnesium 2.1 mg/dL (1.6-2.3); Non-African American GFR(CKD) 80 (>60 ml/min/1.73 sqM); Potassium 3.7 mmol/L (3.5-5.1); Sodium 134 mmol/L (137-145)
[2020-03-17 06:21] LABS: Glucose,Whole Blood 204 mg/dL (75-99)
[2020-03-17] MEDS ORDERED: POTASSIUM BICARBONATE/CIT AC 20 MEQ TABLET.EFF NG-TUBE SCH (07:00)
[2020-03-17] MEDS: NOREPINEPHRINE 4 MG in SODIUM CHLORIDE 0.9% 250 ML IV SCH ×2 (07:00→12:13)
[2020-03-17] MEDS: LEVOTHYROXINE 100 MCG TAB PO SCH (07:00)
[2020-03-17] MEDS: BUDESONIDE 1 MG/2 ML NEBU INHALATION SCH ×2 (07:41→19:53)
[2020-03-17] MEDS: FORMOTEROL FUMARATE 20 MCG/2 ML NEBU INHALATION SCH ×2 (07:41→19:53)
[2020-03-17] MEDS ORDERED: FUROSEMIDE 10 MG/ML 4 ML VIAL IV STA (08:38)
--- NOTE | 2020-03-17 09:03 | P.PN ---
Subjective Patient is seen in follow-up for hyponatremia and volume overload. Status post blood transfusion on March 15. Hemoglobin 6.7 today. She required Levophed yesterday but now discontinued. Nonoliguric. Currently awake on vent. Propofol held. Vital signs are stable. Blood pressure is lower side. General: The patient appeared well nourished and normally developed. Intubated. HEENT: Head exam is unremarkable. Neck is without jugular venous distension. LUNGS: Breath sounds decreased. HEART: Regular rate and rhythm. ABDOMEN: Soft, nontender. EXTREMITITES: 2+ edema. Objective - Vital Signs Vital signs: Vital Signs Temp 99.1 F 03/17/20 04:00 Pulse 69 03/17/20 08:07 Resp 22 03/17/20 07:00 BP 118/57 03/17/20 07:00 Pulse Ox 97 03/17/20 07:00 Intake & Output 03/16/20 03/17/20 03/17/20 18:59 06:59 18:59 Intake Total 251.413 623.903 114.945 Output Total 3150 1045 105 Balance -2898.587 -421.097 9.945 Weight 99.1 kg Intake: IV 55 5 0.9 @ KVO 55 5 Intake, IV Titration 251.413 568.903 109.945 Amount Furosemide 100 mg In 78.833 Sodium Chloride 0.9% 90 ml @ 10 MG/HR 10 mls/hr IV .Q10H KIET Rx#: [id number] Norepinephrine 4 mg In 16.976 204.086 8.679 Sodium Chloride 0.9% 250 ml @ 0.05 MCG/KG/MIN 19. 145 mls/hr IV .[id number] KIET Rx#:[id number] propofoL 1,000 mg In 155.604 364.817 101.266 Empty Bag 1 bag @ Titrate IV .Q0M KIET Rx#: [id number] Output: Urine 3150 1045 105 Other: Voiding Method Indwelling Catheter Indwelling Catheter ABP, PAP, CO, CI - Last Documented Arterial Blood Pressure 131/43 - Labs CBC & Chem 7: 03/17/20 05:08 03/17/20 05:08 Labs: Abnormal Lab Results - Last 24 Hours (Table) 03/15/20 03/16/20 03/16/20 Range/Units 05:53 11:48 18:13 RBC (3.80-5.40) m/uL Hgb (11.4-16.0) gm/dL Hct (34.0-46.0) % MCV (80.0-100.0) fL MCH (25.0-35.0) pg MCHC (31.0-37.0) g/dL RDW (11.5-15.5) % Neutrophils # (1.3-7.7) k/uL Lymphocytes # (1.0-4.8) k/uL ABG pH (7.35-7.45) ABG pCO2 (35-45) mmHg ABG pO2 (83-108) mmHg ABG HCO3 (21-25) mmol/L ABG Total CO2 (19-24) mmol/L Sodium (137-145) mmol/L Carbon Dioxide (22-30) mmol/L BUN (7-17) mg/dL Glucose (74-99) mg/dL POC Glucose (mg/dL) 164 H 211 H (75-99) mg/dL Calcium (8.4-10.2) mg/dL Crossmatch See Detail 03/16/20 03/17/20 03/17/20 Range/Units 23:50 05:05 05:08 RBC 3.09 L (3.80-5.40) m/uL Hgb 6.7 L* (11.4-16.0) gm/dL Hct 22.8 L (34.0-46.0) % MCV 73.9 L (80.0-100.0) fL MCH 21.8 L (25.0-35.0) pg MCHC 29.5 L (31.0-37.0) g/dL RDW 21.0 H (11.5-15.5) % Neutrophils # 9.6 H (1.3-7.7) k/uL Lymphocytes # 0.2 L (1.0-4.8) k/uL ABG pH 7.47 H (7.35-7.45) ABG pCO2 53 H (35-45) mmHg ABG pO2 79 L (83-108) mmHg ABG HCO3 38 H (21-25) mmol/L ABG Total CO2 40 H (19-24) mmol/L Sodium (137-145) mmol/L Carbon Dioxide (22-30) mmol/L BUN (7-17) mg/dL Glucose (74-99) mg/dL POC Glucose (mg/dL) 201 H (75-99) mg/dL Calcium (8.4-10.2) mg/dL Crossmatch 03/17/20 03/17/20 Range/Units 05:08 06:19 RBC (3.80-5.40) m/uL Hgb (11.4-16.0) gm/dL Hct (34.0-46.0) % MCV (80.0-100.0) fL MCH (25.0-35.0) pg MCHC (31.0-37.0) g/dL RDW (11.5-15.5) % Neutrophils # (1.3-7.7) k/uL Lymphocytes # (1.0-4.8) k/uL ABG pH (7.35-7.45) ABG pCO2 (35-45) mmHg ABG pO2 (83-108) mmHg ABG HCO3 (21-25) mmol/L ABG Total CO2 (19-24) mmol/L Sodium 134 L (137-145) mmol/L Carbon Dioxide 34 H (22-30) mmol/L BUN 72 H (7-17) mg/dL Glucose 170 H (74-99) mg/dL POC Glucose (mg/dL) 204 H (75-99) mg/dL Calcium 7.7 L (8.4-10.2) mg/dL Crossmatch Microbiology - Last 24 Hours (Table) 03/16/20 04:10 Gram Stain - Preliminary Sputum Sputum Culture - Preliminary 03/14/20 08:08 Blood Culture - Preliminary Blood No Growth after 48 hours Assessment and Plan Plan: Assessment: 1. Hypervolemic hyponatremia. Sodium level 134 today. Status post [facility] March 14. Lasix drip discontinued March 16 due to hypotension. 2. Acute GI bleed status post blood transfusion. GI following. Hemoglobin 6.7 today. 3. Acute hypercapnic respiratory failure. 4. Mild hyperkalemia secondary to GI bleed. Was also on lisinopril. Improved. 5. Volume overload. Improved with diuresis. 6. Acute diastolic CHF with severe pulmonary hypertension. Plan: Consider transfusing a unit of blood today. Lasix 40 mg IV once today. Continue to monitor renal function and urine output.
[2020-03-17] MEDS: CHLORHEXIDINE GLUCONATE 15 ML CUP MUCOUS MEM SCH ×2 (09:14→21:06)
[2020-03-17] MEDS: PANTOPRAZOLE 40 MG/10 ML VIAL IVP SCH ×2 (09:14→21:06)
[2020-03-17] MEDS: METOPROLOL TARTRATE 25 MG TAB PO SCH ×3 (09:15→21:33)
[2020-03-17] MEDS: NYSTATIN 100,000UNIT/GM CREAM 30 GM TUBE TOPICAL SCH ×3 (09:15→21:34)
[2020-03-17] MEDS: ESCITALOPRAM 20 MG TAB PO SCH (09:15)
[2020-03-17] MEDS: ATORVASTATIN 40 MG TAB PO SCH (09:15)
--- NOTE | 2020-03-17 10:24 | XR ---
EXAMINATION TYPE: XR chest 1V DATE OF EXAM: 03/17/2020 COMPARISON: Prior chest x-ray 03/16/2020 HISTORY: COPD, intubated TECHNIQUE: Single frontal view of the chest is obtained. FINDINGS: There is artifact superimposed over the right upper chest, difficult to exclude underlying abnormal increased attenuation. No evident pneumothorax. Endotracheal tube and orogastric tube are s table. Interval improved visualization of the right hemidiaphragm. Heart may be enlarged of the accen tuation in appearance may be due to rotation. Bibasilar increased density noted. The aorta is dense. IMPRESSION: Abnormal attenuation may be artifactual over the right lung apex, follow-up as indicated . Interval improved aeration at the right lung base.
--- NOTE | 2020-03-17 10:35 | P.PN ---
Subjective Progress Note Date: 03/16/20 Principal diagnosis: GI bleed Lying in bed, intubated and sedated with and son bedside. No further bleeding per patients nurse. Objective - Vital Signs Vital signs: Vital Signs Temp 98.2 F 03/16/20 04:00 Pulse 68 03/16/20 12:30 Resp 22 03/16/20 12:30 BP 126/50 03/16/20 12:30 Pulse Ox 92 L 03/16/20 12:30 Intake & Output 03/15/20 03/16/20 03/16/20 18:59 06:59 18:59 Intake Total 1181.167 241.417 251.413 Output Total 2024 1864 232 Balance -843.833 -1623.583 -2073.587 Weight 100.5 kg Intake: IV 230 220 0.9 @ KVO 120 120 Furosemide 100 mg In 10 100 Sodium Chloride 0.9% 90 ml @ 10 MG/HR 10 mls/hr IV .Q10H KIET Rx#: [id number] Magnesium Sulfate-D5w Pmx 100 1 gm In Dextrose/Water 1 100ml.bag @ 100 mls/hr IVPB Q1H KIET Rx#: [id number] Intake, IV Titration 21.167 21.417 251.413 Amount Furosemide 100 mg In 21.167 78.833 Sodium Chloride 0.9% 90 ml @ 10 MG/HR 10 mls/hr IV .Q10H KIET Rx#: [id number] Norepinephrine 4 mg In 16.976 Sodium Chloride 0.9% 250 ml @ 0.05 MCG/KG/MIN 19. 145 mls/hr IV .[id number] KIET Rx#:[id number] propofoL 1,000 mg In 21.417 155.604 Empty Bag 1 bag @ Titrate IV .Q0M KIET Rx#: [id number] Blood Product 930 Rc As-1 Unit 310 [id number] As-1 Unit 310 [id number] Output: Urine 2024 1864 2324 Other: Voiding Method Indwelling Catheter Indwelling Catheter Indwelling Catheter ABP, PAP, CO, CI - Last Documented Arterial Blood Pressure 102/39 - Exam On physical examination, patient appears comfortable in no apparent distress. HEAD: Normocephalic, atraumatic. EYES: No scleral icterus. No conjunctival injection. MOUTH: No lesions, tongue midline ET tube in place. NECK: Trachea midline, no gross abnormalities. CHEST: Decreased air and all campbell, coarse respiratory sounds secondary to mechanical ventilation. ABDOMEN: Soft. Bowel sounds are positive. No organomegaly. No guarding or rigidity. EXTREMITIES: No pedal edema. SKIN: No rashes, no jaundice. NEUROLOGIC: Intubated and sedated. - Labs CBC & Chem 7: 03/17/20 05:08 03/17/20 05:08 Labs: Abnormal Lab Results - Last 24 Hours (Table) 03/15/20 03/15/20 03/15/20 Range/Units 05:53 07:00 13:06 WBC (3.8-10.6) k/uL RBC (3.80-5.40) m/uL Hgb (11.4-16.0) gm/dL Hct (34.0-46.0) % MCV (80.0-100.0) fL MCH (25.0-35.0) pg MCHC (31.0-37.0) g/dL RDW (11.5-15.5) % PT (9.0-12.0) sec INR (<1.2) ABG pH (7.35-7.45) ABG pCO2 (35-45) mmHg ABG pO2 (83-108) mmHg ABG HCO3 (21-25) mmol/L ABG Total CO2 (19-24) mmol/L ABG O2 Saturation (94-97) % Sodium (137-145) mmol/L Chloride (98-107) mmol/L BUN (7-17) mg/dL Glucose (74-99) mg/dL POC Glucose (mg/dL) 224 H (75-99) mg/dL Calcium (8.4-10.2) mg/dL Iron 16 L (50-170) ug/dL % Saturation 4.61 L (12.00-45.00) Crossmatch See Detail 03/15/20 03/15/20 03/15/20 Range/Units 18:26 20:17 20:19 WBC (3.8-10.6) k/uL RBC (3.80-5.40) m/uL Hgb (11.4-16.0) gm/dL Hct (34.0-46.0) % MCV (80.0-100.0) fL MCH (25.0-35.0) pg MCHC (31.0-37.0) g/dL RDW (11.5-15.5) % PT 12.7 H (9.0-12.0) sec INR 1.3 H (<1.2) ABG pH (7.35-7.45) ABG pCO2 (35-45) mmHg ABG pO2 (83-108) mmHg ABG HCO3 (21-25) mmol/L ABG Total CO2 (19-24) mmol/L ABG O2 Saturation (94-97) % Sodium (137-145) mmol/L Chloride (98-107) mmol/L BUN (7-17) mg/dL Glucose (74-99) mg/dL POC Glucose (mg/dL) 187 H 189 H (75-99) mg/dL Calcium (8.4-10.2) mg/dL Iron (50-170) ug/dL % Saturation (12.00-45.00) Crossmatch 03/15/20 03/16/20 03/16/20 Range/Units 20:19 02:55 05:10 WBC 12.4 H (3.8-10.6) k/uL RBC 3.75 L (3.80-5.40) m/uL Hgb 8.5 L D (11.4-16.0) gm/dL Hct 28.8 L (34.0-46.0) % MCV 76.7 L D (80.0-100.0) fL MCH 22.7 L (25.0-35.0) pg MCHC 29.5 L (31.0-37.0) g/dL RDW 19.5 H (11.5-15.5) % PT (9.0-12.0) sec INR (<1.2) ABG pH 7.25 L (7.35-7.45) ABG pCO2 85 H* 60 H (35-45) mmHg ABG pO2 58 L* (83-108) mmHg ABG HCO3 37 H 35 H (21-25) mmol/L ABG Total CO2 40 H 37 H (19-24) mmol/L ABG O2 Saturation 86.5 L 97.3 H (94-97) % Sodium (137-145) mmol/L Chloride (98-107) mmol/L BUN (7-17) mg/dL Glucose (74-99) mg/dL POC Glucose (mg/dL) (75-99) mg/dL Calcium (8.4-10.2) mg/dL Iron (50-170) ug/dL % Saturation (12.00-45.00) Crossmatch 03/16/20 03/16/20 03/16/20 Range/Units 05:34 05:34 11:48 WBC (3.8-10.6) k/uL RBC 3.71 L (3.80-5.40) m/uL Hgb 8.0 L (11.4-16.0) gm/dL Hct 28.5 L (34.0-46.0) % MCV 76.9 L (80.0-100.0) fL MCH 21.7 L (25.0-35.0) pg MCHC 28.2 L (31.0-37.0) g/dL RDW 20.0 H (11.5-15.5) % PT (9.0-12.0) sec INR (<1.2) ABG pH (7.35-7.45) ABG pCO2 (35-45) mmHg ABG pO2 (83-108) mmHg ABG HCO3 (21-25) mmol/L ABG Total CO2 (19-24) mmol/L ABG O2 Saturation (94-97) % Sodium 131 L (137-145) mmol/L Chloride 97 L (98-107) mmol/L BUN 88 H (7-17) mg/dL Glucose 155 H (74-99) mg/dL POC Glucose (mg/dL) 164 H (75-99) mg/dL Calcium 7.9 L (8.4-10.2) mg/dL Iron (50-170) ug/dL % Saturation (12.00-45.00) Crossmatch Microbiology - Last 24 Hours (Table) 03/14/20 08:08 Blood Culture - Preliminary Blood No Growth after 48 hours Assessment and Plan (1) GI bleed Narrative/Plan: 69-year-old female with multiple medical comorbidities currently admitted and receiving treatment for acute diastolic heart failure and acute exacerbation of COPD. During her hospitalization stay the patient developed multiple episodes o f maroon-colored bowel movements and was noted to have a fall in her hemoglobin from baseline of 9-10-5.5. She is receiving 2 units of packed red blood cells. History taken from the patient and her were significant for no prior endoscopic evaluation, no history of peptic ulcer disease, no NSAID use and no abdominal pain. Unclear etiology, may be related to upper GI bleed from peptic ulcer disease, AVM, gastritis or esophagitis or lower GI bleed from diverticular disease or other etiology. Hemoglobin stable at 8.0 today with no further signs or symptoms of bleeding. Current Visit: Yes Status: Acute Code(s): K92.2 - GASTROINTESTINAL HEMORRHAGE, UNSPECIFIED SNOMED Code(s): 28571199 (2) Anemia associated with acute blood loss Current Visit: Yes Status: Acute Code(s): D62 - ACUTE POSTHEMORRHAGIC ANEMIA SNOMED Code(s): 373022497 Plan: Supportive care Okay for tube feeds Continue to monitor hemoglobin and hematocrit and transfuse as needed Continue Protonix 40 mg twice daily Continue optimization of her respiratory status with treatment of COPD and acute diastolic heart failure, patient required intubation secondary to deteriorating respiratory status Continue management per hotel clerk service Continue to monitor stool output Case discussed with the patient's and son at length who agrees with the current management strategy with all of his questions answered to his satisfaction Thank you for allowing us to participate in the care of the patient
--- NOTE | 2020-03-17 10:36 | P.PN ---
Subjective Progress Note Date: 03/17/20 Patient is sedated and intubated. Hemoglobin this morning dropped to 7.6. No other acute events overnight reported by nursing staff. Objective - Vital Signs Vital signs: Vital Signs Temp 98.8 F 03/17/20 10:15 Pulse 76 03/17/20 10:15 Resp 28 H 03/17/20 10:15 BP 158/58 03/17/20 10:15 Pulse Ox 93 L 03/17/20 10:15 Intake & Output 03/16/20 03/17/20 03/17/20 18:59 06:59 18:59 Intake Total 251.413 623.903 144.945 Output Total 3150 1045 530 Balance -2898.587 -421.097 -385.055 Weight 99.1 kg Intake: IV 55 35 0.9 @ KVO 55 35 Intake, IV Titration 251.413 568.903 109.945 Amount Furosemide 100 mg In 78.833 Sodium Chloride 0.9% 90 ml @ 10 MG/HR 10 mls/hr IV .Q10H KEIT Rx#: [id number] Norepinephrine 4 mg In 16.976 204.086 8.679 Sodium Chloride 0.9% 250 ml @ 0.05 MCG/KG/MIN 19. 145 mls/hr IV .[id number] KIET Rx#:[id number] propofoL 1,000 mg In 155.604 364.817 101.266 Empty Bag 1 bag @ Titrate IV .Q0M KIET Rx#: [id number] Blood Product 0 Rc As-3 Unit 0 [id number] Output: Urine 3150 1045 530 Other: Voiding Method Indwelling Catheter Indwelling Catheter ABP, PAP, CO, CI - Last Documented Arterial Blood Pressure 159/54 - Exam General: The patient is sedated and intubated Eye: there is normal conjunctiva bilaterally. Neck: The neck is supple, there is no JVD. Cardiovascular: Normal S1-S2, no S3-S4, no murmurs. Respiratory: Lungs with mechanical ventilator sounds Gastrointestinal: Abdomen is soft, nontender Musculoskeletal: There is anasarca up to the abdomen Skin: Skin is warm and dry - Labs CBC & Chem 7: 03/17/20 05:08 03/17/20 05:08 Labs: Abnormal Lab Results - Last 24 Hours (Table) 03/15/20 03/16/20 03/16/20 Range/Units 05:53 11:48 18:13 RBC (3.80-5.40) m/uL Hgb (11.4-16.0) gm/dL Hct (34.0-46.0) % MCV (80.0-100.0) fL MCH (25.0-35.0) pg MCHC (31.0-37.0) g/dL RDW (11.5-15.5) % Neutrophils # (1.3-7.7) k/uL Lymphocytes # (1.0-4.8) k/uL ABG pH (7.35-7.45) ABG pCO2 (35-45) mmHg ABG pO2 (83-108) mmHg ABG HCO3 (21-25) mmol/L ABG Total CO2 (19-24) mmol/L Sodium (137-145) mmol/L Carbon Dioxide (22-30) mmol/L BUN (7-17) mg/dL Glucose (74-99) mg/dL POC Glucose (mg/dL) 164 H 211 H (75-99) mg/dL Calcium (8.4-10.2) mg/dL Crossmatch See Detail 03/16/20 03/17/20 03/17/20 Range/Units 23:50 05:05 05:08 RBC 3.09 L (3.80-5.40) m/uL Hgb 6.7 L* (11.4-16.0) gm/dL Hct 22.8 L (34.0-46.0) % MCV 73.9 L (80.0-100.0) fL MCH 21.8 L (25.0-35.0) pg MCHC 29.5 L (31.0-37.0) g/dL RDW 21.0 H (11.5-15.5) % Neutrophils # 9.6 H (1.3-7.7) k/uL Lymphocytes # 0.2 L (1.0-4.8) k/uL ABG pH 7.47 H (7.35-7.45) ABG pCO2 53 H (35-45) mmHg ABG pO2 79 L (83-108) mmHg ABG HCO3 38 H (21-25) mmol/L ABG Total CO2 40 H (19-24) mmol/L Sodium (137-145) mmol/L Carbon Dioxide (22-30) mmol/L BUN (7-17) mg/dL Glucose (74-99) mg/dL POC Glucose (mg/dL) 201 H (75-99) mg/dL Calcium (8.4-10.2) mg/dL Crossmatch 03/17/20 03/17/20 Range/Units 05:08 06:19 RBC (3.80-5.40) m/uL Hgb (11.4-16.0) gm/dL Hct (34.0-46.0) % MCV (80.0-100.0) fL MCH (25.0-35.0) pg MCHC (31.0-37.0) g/dL RDW (11.5-15.5) % Neutrophils # (1.3-7.7) k/uL Lymphocytes # (1.0-4.8) k/uL ABG pH (7.35-7.45) ABG pCO2 (35-45) mmHg ABG pO2 (83-108) mmHg ABG HCO3 (21-25) mmol/L ABG Total CO2 (19-24) mmol/L Sodium 134 L (137-145) mmol/L Carbon Dioxide 34 H (22-30) mmol/L BUN 72 H (7-17) mg/dL Glucose 170 H (74-99) mg/dL POC Glucose (mg/dL) 204 H (75-99) mg/dL Calcium 7.7 L (8.4-10.2) mg/dL Crossmatch Microbiology - Last 24 Hours (Table) 03/14/20 08:08 Blood Culture - Preliminary Blood No Growth after 72 hours 03/16/20 04:10 Gram Stain - Preliminary Sputum Sputum Culture - Preliminary Assessment and Plan Assessment: The patient is a 69-year-old female with a PMH of type II DM, hypertension, hyperlipidemia, hypothyroidism, severe COPD, diastolic CHF, and morbid obesity who presented to the ED with shortness of breath along with lower extremity swelling. The patient was admitted for hypoxic and hypercapnic respiratory fa ilure with CHF and COPD exacerbation with fluid overload. The patient was placed on IV Lasix with IV steroids and bronchodilators. The patient had episode of GI bleeding on 7/27 with a drop from 8.5-5.5 gm/dL. The patient was given 2 units of PRBCs and GI recommended continued monitoring. Hemoglobin dropped again to 6.7 on 03/17 requiring 1 unit of blood transfusion. The patient's hypercapnia worsened on 03/16 to a pCO2 of 85. Her mental status also deteriorated and the patient was subsequently intubated by the garnett room worker. She was seen and evaluated in the medical ICU on 03/16. The patient was sedated and minimally arousable. Assessment and Plan Plan: Acute hypoxic and hypercapnic respiratory failure in setting of acute COPD and diastolic CHF exacerbations -Status post endotracheal intubation on 03/16 -Solu-Medrol 60 mg every 8 hourly -Defer management to instrument/control technician -Continue bronchodilators Acute diastolic heart failure exacerbation with severe pulmonary hypertension -Diuresis managed by nephrology Acute blood loss anemia secondary to GI bleeding -Status post 3 units of PRBCs -Continue to monitor CBC -Protonix 40 IV push twice a day Altered mental status, likely toxo metabolic encephalopathy multifactorial in setting of hypercapnia with delirium -Status post intubation Hyperkalemia, resolved -Holding home spironolactone -Nephrology on case Hyponatremia -Nephrology following closely. Monitor BMP daily. Type II DM -Lispro insulin sliding scale blood glucose monitoring Hypothyroidism -Continue with home Synthroid dose DVT prophylaxis -With SCDs
--- NOTE | 2020-03-17 11:50 | PN ---
PROGRESS NOTE PULMONARY/CRITICAL CARE PROGRESS NOTE: DATE OF SERVICE: 03/17/2020 CRITICAL CARE TIME: 34 minutes This is a 69-year-old female who was admitted back on March 11. She was initially admitted with a diagnosis of acute hypoxemic respiratory failure secondary to both COPD and diastolic CHF. In addition, she has suspected lower GI bleed. The patient is currently still having issues with low hemoglobin. She will receive 1 unit of PRBCs today for hemoglobin of 6.7. The patient was intubated and mechanically ventilated on March 16. She is currently on the volume assist-control mode rate of 22, tidal volume 350, FiO2 of 50%, PEEP of 5. Blood gases show a pO2 of 79, pCO2 of 53 and a pH 7.47. Norepinephrine has been turned off. She is on Diprivan at 40 mcg/kg/minute. She is getting saline IV at [facility]. Her other medical problems include kidney stones, previous heavy tobacco use, diabetes mellitus, DJD, pulmonary hypertension, valvular heart disease, and very severe COPD with an FEV1 that is 42% of predicted. Today, we will do a daily interruption of sedation. In addition, we will start her on tube feeds. Current vital signs are reviewed, temperature 98.8, heart rate 76, respiratory rate 25, blood pressure 148/61, mean 90, saturations are 93%. Appears in no acute distress. Currently sedated on propofol. HEENT: Examination is grossly unremarkable. She does have an orally placed endotracheal tube and NG tube. NECK: Supple, full range of motion. No adenopathy or thyromegaly. Neck veins are flat. CARDIOVASCULAR: Examination reveals regular rhythm and rate. Heart rate mid 70s. S1, S2 normal. No S3, S4, or murmur. Heart sounds are distant. LUNGS: Reveal diffuse coarse rhonchi. Some crackles bilaterally. No wheezes. ABDOMEN: Obese, bowel sounds are not heard. EXTREMITIES: Intact. There is edema both in the upper and lower extremities. SKIN: Without rash. NEUROLOGIC: Cannot be performed, as the patient is currently sedated on propofol. CURRENT LABORATORY: Include a white count of 10.5, hemoglobin 6.7, hematocrit 22.8, platelet count which is normal at 180,000. Blood gases show pO2 of 79, pCO2 of 53 and a pH of 7.47. These blood gases consistent with a metabolic alkalosis. Sodium 134, potassium 3.7, chloride 99, CO2 is 34, anion gap is 1. BUN and creatinine were 72 and 0.76. Microbiology showing currently no bacteria either in the sputum or blood. CHEST X-RAY: Done today shows an endotracheal tube about 4 cm above the tracheal marine. The patient has either volume loss or infiltrate in the right upper lobe. In addition, there is bibasilar infiltrates, left greater than right and bibasilar pleural effusions, left greater than right. CURRENT MEDICATIONS: Reviewed. She is getting Tylenol, Abilify, Lipitor, Pulmicort, chlorhexidine, Lexapro, formoterol, insulin, DuoNeb updrafts, levothyroxine, magnesium replacement, Solu- Medrol, metoprolol, Narcan, nystatin, Zofran, Protonix, propofol and saline IV at [facility]. ASSESSMENT: 1. Acute on chronic hypoxemic and hypercapnic respiratory failure, primarily secondary to chronic obstructive pulmonary disease, but also diastolic congestive heart failure, requiring intubation and mechanical ventilation on March 16 for worsening mental status and worsening arterial blood gases. 2. Acute blood loss anemia, secondary to gastrointestinal bleed, with maroon-colored stools, status post three total units of PRBCs. 3. Severe chronic obstructive pulmonary disease, FEV1 42% of predicted. 4. Chronic cor pulmonale. 5. Hypothyroidism. 6. Secondary pulmonary hypertension with moderate tricuspid regurgitation and mild mitral regurgitation. 7. Degenerative joint disease. 8. Type 2 diabetes mellitus. 9. Prior heavy tobacco use. 10.History of kidney stones. PLAN: The patient will get 1 unit of blood. Will do a daily interruption of sedation. Will start her on tube feeds. Norepinephrine has just been turned off. Blood gases are reasonable. She does have a metabolic alkalosis. Additional recommendations and suggestions are forthcoming. Prognosis is guarded. She is maintained on updrafts as well. CRITICAL CARE TIME: 34 minutes. MMODL / IJN: [id number] /
[2020-03-17 12:49] LABS: Glucose,Whole Blood 199 mg/dL (75-99)
[2020-03-17] MEDS ORDERED: FUROSEMIDE 10 MG/ML 2 ML VIAL IV SCH (14:00)
[2020-03-17 15:53] LABS: Anisocytosis Moderate; Hypochromasia Marked; MCH 24.1 pg (25.0-35.0); MCHC 30.9 g/dL (31.0-37.0); Mean Platelet Volume 8.1; Microcytosis Moderate; Platelet Count 206 k/uL (150-450); Poikilocytosis Marked; RBC 3.59 m/uL (3.80-5.40); RDW 20.7 % (11.5-15.5); WBC 14.1 k/uL (3.8-10.6)
[2020-03-17 16:01] LABS: HGB 8.6 gm/dL (11.4-16.0)
[2020-03-17] MEDS ORDERED: POTASSIUM CHLORIDE ER 20 MEQ TAB.ER PO ONE (17:00)
[2020-03-17] MEDS ORDERED: POTASSIUM BICARBONATE/CIT AC 20 MEQ TABLET.EFF NG-TUBE ONE (17:00)
[2020-03-17 17:48] LABS: Glucose,Whole Blood 207 mg/dL (75-99)
[2020-03-17] MEDS: ARIPiprazole 5 MG TAB PO SCH (21:28)
[2020-03-17 22:41] LABS: Anisocytosis Moderate; HCT 26.1 % (34.0-46.0); HGB 7.6 gm/dL (11.4-16.0); Hypochromasia Marked; MCH 22.7 pg (25.0-35.0); MCHC 29.3 g/dL (31.0-37.0); MCV 77.4 fL (80.0-100.0); Mean Platelet Volume 7.5; Microcytosis Moderate; Platelet Count 165 k/uL (150-450); Poikilocytosis Marked; RBC 3.37 m/uL (3.80-5.40); RDW 21.7 % (11.5-15.5)
[2020-03-18 00:28] LABS: Glucose,Whole Blood 218 mg/dL (75-99)
[2020-03-18] MEDS: methylPREDNISolone SOD SUCCI 125 MG/2 ML VIAL IV SCH ×3 (00:38→17:21)
[2020-03-18] MEDS: INSULIN ASPART (NovoLOG) 100 UNIT/ML VIAL SQ SCH ×4 (00:39→17:32)
[2020-03-18] MEDS: IPRATROPIUM-ALBUTEROL 3 ML NEB INHALATION SCH ×5 (02:56→19:23)
[2020-03-18 04:24] LABS: Anisocytosis Moderate; Basophils % (A) 0 %; Eosinophils % (A) 0 %; HCT 26.6 % (34.0-46.0); HGB 7.7 gm/dL (11.4-16.0); Hypochromasia Marked; Lymphocytes # (A) 0.2 k/uL (1.0-4.8); Lymphocytes % (A) 2 %; MCH 22.5 pg (25.0-35.0); MCHC 29.1 g/dL (31.0-37.0); MCV 77.2 fL (80.0-100.0); Mean Platelet Volume 7.5; Microcytosis Moderate; Monocytes # (A) 0.4 k/uL (0-1.0); Monocytes % (A) 4 %; Neutrophils # (A) 9.9 k/uL (1.3-7.7); Neutrophils % (A) 93 %; Platelet Count 154 k/uL (150-450); Poikilocytosis Marked; RBC 3.45 m/uL (3.80-5.40); RDW 21.6 % (11.5-15.5); WBC 10.7 k/uL (3.8-10.6)
[2020-03-18 04:33] LABS: African American GFR (CKD) >90 (>60 ml/min/1.73 sqM); Anion Gap -1 mmol/L; Blood Urea Nitrogen 64 mg/dL (7-17); Calcium 7.8 mg/dL (8.4-10.2); Carbon Dioxide 40 mmol/L (22-30); Chloride 100 mmol/L (98-107); Glucose 164 mg/dL (74-99); Non-African American GFR(CKD) 88 (>60 ml/min/1.73 sqM); Potassium 3.4 mmol/L (3.5-5.1); Sodium 139 mmol/L (137-145)
[2020-03-18 05:45] LABS: ABG PCO2 52 mmHg (35-45); ABG PO2 82 mmHg (83-108); Allen Test Performed? Yes
[2020-03-18 05:46] LABS: ABG Base Excess 17.3 mmol/L; ABG HCO3 41 mmol/L (21-25)
[2020-03-18 06:24] LABS: Glucose,Whole Blood 185 mg/dL (75-99)
[2020-03-18] MEDS: POTASSIUM CHLORIDE 20 MEQ in WATER FOR INJECTION 1 100ML.BAG IVPB SCH ×2 (06:32→08:59)
--- NOTE | 2020-03-18 07:17 | XR ---
EXAMINATION TYPE: XR chest 1V DATE OF EXAM: 03/18/2020 COMPARISON: Prior chest x-ray 03/17/2020 HISTORY: COPD TECHNIQUE: Single frontal view of the chest is obtained. FINDINGS: Endotracheal tube and NG tube are overlying appropriate positions. There is a bandlike are a of increased attenuation in the right upper and lower lobe, perihilar location, increased density p resent in the right paratracheal location. There is no pneumothorax. Retrocardiac density persists. H eart size is stable. Aorta is dense. IMPRESSION: There may be atelectasis, correlate to exclude pneumonia. Abnormal density at the right upper lobe and paratracheal region persists, follow-up PA and lateral chest x-ray recommended when pa tient is stable.
[2020-03-18] MEDS: FORMOTEROL FUMARATE 20 MCG/2 ML NEBU INHALATION SCH ×2 (08:35→19:23)
[2020-03-18] MEDS: BUDESONIDE 1 MG/2 ML NEBU INHALATION SCH ×2 (08:35→19:23)
[2020-03-18] MEDS: NOREPINEPHRINE 4 MG in SODIUM CHLORIDE 0.9% 250 ML IV SCH ×2 (08:55→15:57)
[2020-03-18] MEDS: PANTOPRAZOLE 40 MG/10 ML VIAL IVP SCH ×2 (08:59→22:08)
[2020-03-18] MEDS: CHLORHEXIDINE GLUCONATE 15 ML CUP MUCOUS MEM SCH (08:59)
--- NOTE | 2020-03-18 08:59 | P.PN ---
Subjective Patient is seen in follow-up for hyponatremia and volume overload. Status post blood transfusion on March 15 and . Hemoglobin 7.7 today. Not on vasopressors. Nonoliguric. Plan for possible extubation today. Vital signs are stable. General: The patient appeared well nourished and normally developed. Intubated. HEENT: Head exam is unremarkable. Neck is without jugular venous distension. LUNGS: Breath sounds decreased. HEART: Regular rate and rhythm. ABDOMEN: Soft, nontender. EXTREMITITES: 2+ edema. Objective - Vital Signs Vital signs: Vital Signs Temp 98.4 F 03/18/20 00:00 Pulse 62 03/18/20 08:51 Resp 22 03/18/20 07:00 BP 166/63 03/18/20 07:00 Pulse Ox 97 03/18/20 07:00 Intake & Output 03/17/20 03/18/20 03/18/20 18:59 06:59 18:59 Intake Total 629.972 232 10 Output Total 3255 700 110 Balance -2625.028 -468 -100 Weight 99.1 kg 93.9 kg Intake: IV 125 110 10 0.9 @ KVO 125 110 10 Intake, IV Titration 128.972 100 Amount Norepinephrine 4 mg In 8.679 Sodium Chloride 0.9% 250 ml @ 0.05 MCG/KG/MIN 19. 145 mls/hr IV .[id number] KIET Rx#:[id number] propofoL 1,000 mg In 120.293 100 Empty Bag 1 bag @ Titrate IV .Q0M KIET Rx#: [id number] Tube Feeding 66 22 Blood Product 310 Rc As-3 Unit 310 [id number] Output: Urine 3255 700 110 Other: Voiding Method Indwelling Catheter Indwelling Catheter # Bowel Movements 1 ABP, PAP, CO, CI - Last Documented Arterial Blood Pressure 116/74 - Labs CBC & Chem 7: 03/18/20 04:10 03/18/20 04:10 Labs: Abnormal Lab Results - Last 24 Hours (Table) 03/15/20 03/17/20 03/17/20 Range/Units 05:53 12:47 14:25 WBC 14.1 H (3.8-10.6) k/uL RBC 3.59 L (3.80-5.40) m/uL Hgb 8.6 L D (11.4-16.0) gm/dL Hct 28.0 L (34.0-46.0) % MCV 78.0 L (80.0-100.0) fL MCH 24.1 L (25.0-35.0) pg MCHC 30.9 L (31.0-37.0) g/dL RDW 20.7 H (11.5-15.5) % Neutrophils # (1.3-7.7) k/uL Lymphocytes # (1.0-4.8) k/uL ABG pH (7.35-7.45) ABG pCO2 (35-45) mmHg ABG pO2 (83-108) mmHg ABG HCO3 (21-25) mmol/L Potassium (3.5-5.1) mmol/L Carbon Dioxide (22-30) mmol/L BUN (7-17) mg/dL Glucose (74-99) mg/dL POC Glucose (mg/dL) 199 H (75-99) mg/dL Calcium (8.4-10.2) mg/dL Crossmatch See Detail 03/17/20 03/17/20 03/18/20 Range/Units 17:46 22:15 00:27 WBC 12.0 H (3.8-10.6) k/uL RBC 3.37 L (3.80-5.40) m/uL Hgb 7.6 L (11.4-16.0) gm/dL Hct 26.1 L (34.0-46.0) % MCV 77.4 L (80.0-100.0) fL MCH 22.7 L (25.0-35.0) pg MCHC 29.3 L (31.0-37.0) g/dL RDW 21.7 H (11.5-15.5) % Neutrophils # (1.3-7.7) k/uL Lymphocytes # (1.0-4.8) k/uL ABG pH (7.35-7.45) ABG pCO2 (35-45) mmHg ABG pO2 (83-108) mmHg ABG HCO3 (21-25) mmol/L Potassium (3.5-5.1) mmol/L Carbon Dioxide (22-30) mmol/L BUN (7-17) mg/dL Glucose (74-99) mg/dL POC Glucose (mg/dL) 207 H 218 H (75-99) mg/dL Calcium (8.4-10.2) mg/dL Crossmatch 03/18/20 03/18/20 03/18/20 Range/Units 04:10 04:10 05:34 WBC 10.7 H (3.8-10.6) k/uL RBC 3.45 L (3.80-5.40) m/uL Hgb 7.7 L (11.4-16.0) gm/dL Hct 26.6 L (34.0-46.0) % MCV 77.2 L (80.0-100.0) fL MCH 22.5 L (25.0-35.0) pg MCHC 29.1 L (31.0-37.0) g/dL RDW 21.6 H (11.5-15.5) % Neutrophils # 9.9 H (1.3-7.7) k/uL Lymphocytes # 0.2 L (1.0-4.8) k/uL ABG pH 7.50 H (7.35-7.45) ABG pCO2 52 H (35-45) mmHg ABG pO2 82 L (83-108) mmHg ABG HCO3 41 H* (21-25) mmol/L Potassium 3.4 L (3.5-5.1) mmol/L Carbon Dioxide 40 H (22-30) mmol/L BUN 64 H (7-17) mg/dL Glucose 164 H (74-99) mg/dL POC Glucose (mg/dL) (75-99) mg/dL Calcium 7.8 L (8.4-10.2) mg/dL Crossmatch 03/18/20 Range/Units 06:23 WBC (3.8-10.6) k/uL RBC (3.80-5.40) m/uL Hgb (11.4-16.0) gm/dL Hct (34.0-46.0) % MCV (80.0-100.0) fL MCH (25.0-35.0) pg MCHC (31.0-37.0) g/dL RDW (11.5-15.5) % Neutrophils # (1.3-7.7) k/uL Lymphocytes # (1.0-4.8) k/uL ABG pH (7.35-7.45) ABG pCO2 (35-45) mmHg ABG pO2 (83-108) mmHg ABG HCO3 (21-25) mmol/L Potassium (3.5-5.1) mmol/L Carbon Dioxide (22-30) mmol/L BUN (7-17) mg/dL Glucose (74-99) mg/dL POC Glucose (mg/dL) 185 H (75-99) mg/dL Calcium (8.4-10.2) mg/dL Crossmatch Microbiology - Last 24 Hours (Table) 03/14/20 08:08 Blood Culture - Preliminary Blood No Growth after 72 hours Assessment and Plan Plan: Assessment: 1. Hypervolemic hyponatremia. Sodium level 134 today. Status post Samsca March 14. Lasix drip discontinued March 16 due to hypotension. 2. Acute GI bleed status post blood transfusion. GI following. Hemoglobin 7.7 today. 3. Acute hypercapnic respiratory failure. 4. Mild hyperkalemia secondary to GI bleed. Was also on lisinopril. Improved. Potassium now on the lower side due to diuresis. 5. Volume overload. Improved with diuresis. 6. Acute diastolic CHF with severe pulmonary hypertension. 7. Metabolic alkalosis secondary to diuresis. Plan: Continue to monitor renal function and urine output. Potassium being replaced. Hold off on diuretics at this time.
[2020-03-18] MEDS: METOPROLOL TARTRATE 25 MG TAB PO SCH ×3 (09:00→22:08)
[2020-03-18] MEDS: ATORVASTATIN 40 MG TAB PO SCH (09:00)
[2020-03-18] MEDS: ESCITALOPRAM 20 MG TAB PO SCH (09:00)
[2020-03-18] MEDS: LEVOTHYROXINE 100 MCG TAB PO SCH (09:00)
[2020-03-18] MEDS: NYSTATIN 100,000UNIT/GM CREAM 30 GM TUBE TOPICAL SCH ×3 (09:01→22:13)
--- NOTE | 2020-03-18 11:18 | PN ---
PROGRESS NOTE PULMONARY/CRITICAL CARE PROGRESS NOTE: DATE OF SERVICE: 03/18/2020. CRITICAL CARE TIME: 33 minutes. This is a 69-year-old female who was admitted back on March 11, 2020. She was initially admitted with a diagnosis of acute hypoxemic respiratory failure secondary to both COPD and diastolic congestive heart failure. In addition, she developed a suspected lower GI bleed. The patient is scheduled for an EGD today at noon. Since we have seen her here, we have diuresed her significantly. She is down about 37 pounds. Currently, she is on the ventilator. The patient was intubated and mechanically ventilated on March 16 for respiratory failure. The patient is on the volume assist-control mode, rate of 22, tidal volume 350, FiO2 of 50%, PEEP of 5. Blood gases show pO2 of 82, pCO2 of 52, and a pH of 7.5. These blood gases are consistent with a metabolic alkalosis. The patient is on propofol at 25 mcg/kg/per minutes, saline at KVO and Vital high-protein, which is currently on hold for the planned EGD at noon. The patient has now been made a DNR by her . She has a history of multiple medical problems including, but not limited to kidney stones, previous heavy tobacco use, diabetes mellitus, DJD, pulmonary hypertension, valvular heart disease, and some very severe COPD with an FEV1 that is 42% of predicted. Post EGD, if everything looks okay, the patient will be given a daily interruption of sedation and potentially a spontaneous breathing trial. Current vital signs are reviewed. Current temperature is 98.4, heart rate 66, respiratory rate 22, blood pressure 166/63 mean 97 and saturations are 97% on 50% FiO2 and 5 of PEEP. She appears in no acute distress. She is currently sedated on propofol at 25 mcg/kg/per minute. HEENT: Examination is grossly unremarkable. There is an orally placed endotracheal tube and NG tube. NECK: Supple, full range of motion. No adenopathy or thyromegaly. Neck veins are flat. CARDIOVASCULAR: Examination reveals a regular rhythm and rate. Heart rate in the mid to low 80s. S1, S2 normal. There is no murmur. Heart sounds are distant. LUNGS: Reveal some diffuse coarse bilateral rhonchi and some bibasilar crackles. No wheezes. ABDOMEN: Obese. Bowel sounds are heard. EXTREMITIES: Intact. There is significant upper and lower extremity edema with some diffuse anasarca. SKIN: Without rash. NEUROLOGIC: Examination could not be adequately assessed as she is currently sedated. LABORATORY DATA: Reviewed. White count 10.7, hemoglobin 7.7, hematocrit 26.6, platelet count 164,000, pO2 of 82, pCO2 of 52, and a pH of 7.5. This is consistent with a metabolic alkalosis. Sodium 139, potassium 3.4, chloride 100, CO2 of 40, anion gap is -1. BUN and creatinine were 64 and 0.70. The low potassium, elevated bicarbonate, and elevated BUN and creatinine all suggest a volume contraction alkalosis. Microbiology is checked. Blood and sputum are thus far negative. A chest x-ray shows some diffuse bilateral infiltrates. There is some perihilar infiltrates or atelectasis. There is some abnormality also in the right upper lobe. No pneumothorax. MEDICATIONS: Reviewed. Currently, she is on Tylenol, Abilify, Lipitor, Pulmicort, chlorhexidine, Lexapro, formoterol, insulin, DuoNeb, levothyroxine, magnesium, Solu-Medrol, metoprolol, Narcan, norepinephrine, which has been weaned off, nystatin, Zofran, Protonix, and propofol. ASSESSMENT: 1. Acute on chronic hypoxemic and hypercapnic respiratory failure secondary to chronic obstructive pulmonary disease but also diastolic congestive heart failure. Because of hypoxemic respiratory failure, the patient required intubation and mechanical ventilation on March 16, 2020. Currently, she remains on the ventilator. 2. Acute blood loss anemia secondary to gastrointestinal bleed, with planned EGD today. The patient has received a total of 3 units of PRBCs. 3. Severe/stage 3 chronic obstructive pulmonary disease, FEV1 42% of predicted. 4. Metabolic alkalosis. 5. Chronic cor pulmonale. 6. Hypothyroidism. 7. Secondary pulmonary hypertension with moderate tricuspid regurgitation and mild mitral regurgitation. 8. Degenerative joint disease. 9. Type 2 diabetes. 10.Obesity. 11.Previous heavy tobacco use. 12.History of kidney stones. PLAN: The patient will have an EGD today at noon. Tube feeds are on hold. She remains on Diprivan at 25 mcg/kg/per minute. Because of her metabolic alkalosis, will hold further diuretics at this time and also replace with potassium. She has lost about 37 pounds. The patient is a DNR. The family states that if the patient is extubated, she is not to be reintubated. Additional recommendations and suggestions are forthcoming. Prognosis is guarded. CRITICAL CARE TIME: 34 minutes. FABRICIO / JEREMY: [id number] /
[2020-03-18 11:52] LABS: Glucose,Whole Blood 161 mg/dL (75-99)
[2020-03-18] MEDS: POTASSIUM CHLORIDE 10 MEQ in WATER FOR INJECTION 1 100ML.BAG IVPB SCH ×2 (14:25→15:48)
--- NOTE | 2020-03-18 15:47 | P.PN ---
Subjective Patient is sedated and intubated. She is still having bloody bowel movement as of last night. Objective - Vital Signs Vital signs: Vital Signs Temp 98.6 F 03/18/20 12:00 Pulse 67 03/18/20 14:00 Resp 22 03/18/20 14:00 BP 147/53 03/18/20 14:00 Pulse Ox 94 L 03/18/20 13:00 Intake & Output 03/17/20 03/18/20 03/18/20 18:59 06:59 18:59 Intake Total 629.972 232 380 Output Total 3255 700 665 Balance -2625.028 -468 -285 Weight 99.1 kg 93.9 kg Intake: IV 125 110 80 0.9 @ KVO 125 110 80 Intake, IV Titration 128.972 100 300 Amount Norepinephrine 4 mg In 8.679 Sodium Chloride 0.9% 250 ml @ 0.05 MCG/KG/MIN 19. 145 mls/hr IV .[id number] KIET Rx#:[id number] Potassium Chloride 20 meq 200 In Water For Injection 1 100ml.bag @ 50 mls/hr IVPB Q2H KIET Rx#: [id number] propofoL 1,000 mg In 120.293 100 100 Empty Bag 1 bag @ Titrate IV .Q0M KIET Rx#: [id number] Tube Feeding 66 22 Blood Product 310 Rc As-3 Unit 310 [id number] Output: Urine 3255 700 665 Other: Voiding Method Indwelling Catheter Indwelling Catheter Indwelling Catheter # Bowel Movements 1 1 ABP, PAP, CO, CI - Last Documented Arterial Blood Pressure 116/74 - Exam General: The patient is sedated and intubated Eye: there is normal conjunctiva bilaterally. Neck: The neck is supple, there is no JVD. Cardiovascular: Normal S1-S2, no S3-S4, no murmurs. Respiratory: Lungs with mechanical ventilator sounds Gastrointestinal: Abdomen is soft, nontender Musculoskeletal: There is anasarca up to the abdomen Skin: Skin is warm and dry - Labs CBC & Chem 7: 03/18/20 04:10 03/18/20 12:15 Labs: Abnormal Lab Results - Last 24 Hours (Table) 03/17/20 03/17/20 03/17/20 Range/Units 14:25 17:46 22:15 WBC 14.1 H 12.0 H (3.8-10.6) k/uL RBC 3.59 L 3.37 L (3.80-5.40) m/uL Hgb 8.6 L D 7.6 L (11.4-16.0) gm/dL Hct 28.0 L 26.1 L (34.0-46.0) % MCV 78.0 L 77.4 L (80.0-100.0) fL MCH 24.1 L 22.7 L (25.0-35.0) pg MCHC 30.9 L 29.3 L (31.0-37.0) g/dL RDW 20.7 H 21.7 H (11.5-15.5) % Neutrophils # (1.3-7.7) k/uL Lymphocytes # (1.0-4.8) k/uL ABG pH (7.35-7.45) ABG pCO2 (35-45) mmHg ABG pO2 (83-108) mmHg ABG HCO3 (21-25) mmol/L Potassium (3.5-5.1) mmol/L Carbon Dioxide (22-30) mmol/L BUN (7-17) mg/dL Glucose (74-99) mg/dL POC Glucose (mg/dL) 207 H (75-99) mg/dL Calcium (8.4-10.2) mg/dL 03/18/20 03/18/20 03/18/20 Range/Units 00:27 04:10 04:10 WBC 10.7 H (3.8-10.6) k/uL RBC 3.45 L (3.80-5.40) m/uL Hgb 7.7 L (11.4-16.0) gm/dL Hct 26.6 L (34.0-46.0) % MCV 77.2 L (80.0-100.0) fL MCH 22.5 L (25.0-35.0) pg MCHC 29.1 L (31.0-37.0) g/dL RDW 21.6 H (11.5-15.5) % Neutrophils # 9.9 H (1.3-7.7) k/uL Lymphocytes # 0.2 L (1.0-4.8) k/uL ABG pH (7.35-7.45) ABG pCO2 (35-45) mmHg ABG pO2 (83-108) mmHg ABG HCO3 (21-25) mmol/L Potassium 3.4 L (3.5-5.1) mmol/L Carbon Dioxide 40 H (22-30) mmol/L BUN 64 H (7-17) mg/dL Glucose 164 H (74-99) mg/dL POC Glucose (mg/dL) 218 H (75-99) mg/dL Calcium 7.8 L (8.4-10.2) mg/dL 03/18/20 03/18/20 03/18/20 Range/Units 05:34 06:23 11:52 WBC (3.8-10.6) k/uL RBC (3.80-5.40) m/uL Hgb (11.4-16.0) gm/dL Hct (34.0-46.0) % MCV (80.0-100.0) fL MCH (25.0-35.0) pg MCHC (31.0-37.0) g/dL RDW (11.5-15.5) % Neutrophils # (1.3-7.7) k/uL Lymphocytes # (1.0-4.8) k/uL ABG pH 7.50 H (7.35-7.45) ABG pCO2 52 H (35-45) mmHg ABG pO2 82 L (83-108) mmHg ABG HCO3 41 H* (21-25) mmol/L Potassium (3.5-5.1) mmol/L Carbon Dioxide (22-30) mmol/L BUN (7-17) mg/dL Glucose (74-99) mg/dL POC Glucose (mg/dL) 185 H 161 H (75-99) mg/dL Calcium (8.4-10.2) mg/dL Microbiology - Last 24 Hours (Table) 03/14/20 08:08 Blood Culture - Preliminary Blood No Growth after 96 hours 03/16/20 04:10 Gram Stain - Final Sputum Sputum Culture - Final Assessment and Plan Assessment: The patient is a 69-year-old female with a PMH of type II DM, hypertension, hyperlipidemia, hypothyroidism, severe COPD, diastolic CHF, and morbid obesity who presented to the ED with shortness of breath along with lower extremity swelling. The patient was admitted for hypoxic and hypercapnic respiratory failure with CHF and COPD exacerbation with fluid overload. The patient was placed on IV Lasix with IV steroids and bronchodilators. The patient had episode of GI bleeding on 03/15 with a drop from 8.5-5.5 gm/dL. The patient was given 2 units of PRBCs and GI recommended continued monitoring. Hemoglobin dropped again to 6.7 on 03/17 requiring 1 unit of blood transfusion. The patient's hypercapnia worsened on 03/16 to a pCO2 of 85. Her mental status also deteriorated and the patient was subsequently intubated by the electrolysis operator. She was seen and evaluated in the medical ICU on 03/16. The patient was sedated and minimally arousable. Assessment and Plan Plan: Acute hypoxic and hypercapnic respiratory failure in setting of acute COPD and diastolic CHF exacerbations -Status post endotracheal intubation on 03/16 -Solu-Medrol 60 mg every 8 hourly -Defer management to dispatch associate -Continue bronchodilators Acute diastolic heart failure exacerbation with severe pulmonary hypertension -Diuresis managed by nephrology Acute blood loss anemia secondary to GI bleeding -Status post 3 units of PRBCs -Continue to monitor CBC -Protonix 40 IV push twice a day -Plan for EGD per GI today Altered mental status, likely toxo metabolic encephalopathy multifactorial in setting of hypercapnia with delirium -Status post intubation Hyperkalemia, resolved -Holding home spironolactone -Nephrology on case Hyponatremia -Nephrology following closely. Monitor BMP daily. Type II DM -Lispro insulin sliding scale blood glucose monitoring Hypothyroidism -Continue with home Synthroid dose DVT prophylaxis -With SCDs
[2020-03-18 17:29] LABS: Glucose,Whole Blood 178 mg/dL (75-99)
[2020-03-18] MEDS ORDERED: FAMOTIDINE 20 MG/2 ML VIAL IV SCH (17:30)
[2020-03-18] MEDS ORDERED: IPRATROPIUM-ALBUTEROL 3 ML NEB INHALATION SCH (20:00)
--- NOTE | 2020-03-18 20:04 | P.PCN ---
Date of Procedure: 03/18/20 Description of Procedure: Brief history: 69-year-old female with multiple medical comorbidities currently admitted and receiving treatment for acute diastolic heart failure and acute exacerbation of COPD. During her hospitalization stay the patient developed multiple episodes of maroon-colored bowel movements and was noted to have a fall in her hemoglobin from baseline of 9-10-5.5. She is receiving 2 units of packed red blood cells. History taken from the patient and her were significant for no prior endoscopic evaluation, no history of peptic ulcer disease, no NSAID use and no abdominal pain. Procedure performed: Esophagogastroduodenoscopy Estimated blood loss: Minimal. Preoperative diagnosis: GI bleed, anemia Anesthesia: MAC Procedure: After informed consent was obtained from the patient was brought into the endoscopy unit and IV sedation was administered by anesthesia under continuous monitoring. Initially upper endoscopy was done. The Olympus GF 190 video endoscope was inserted into the mouth and esophagus intubated without any difficulty and was gradually advanced into the stomach and duodenum and carefully examined. The bulb and second part of the duodenum was significant for an ulcerated non bleeding duodenal bulb ulcer meassuring approximately 1.5 cm without any active bleeding or stigmatata for bleeding. The scope was then withdrawn into the stomach adequately insufflated with air and upon careful examination the antrum and body, cardia and fundus appeared normal, except for erythema in the antrum and body suggestive of mild gastritis. The scope was then withdrawn into the esophagus. The GE junction was located at 40 cm to the incisors. It appeared regular with no erythema erosions or ulcerations. Rest of the esophagus appeared normal. Patient tolerated the procedure well. Impression: 1. Non bleeding duodenal ulcer, without any high risk stigmata for bleeding noted. 2. Mild gastritis antrum and body. 3. No active bleeding or Recommendations: Findings of this examination were discussed with the patient and the ICU team. Continue Protonix therapy. Avoid NSAID therapy. Okay for liquids after extubation. Continue to monitor hemoglobin and transfuse as needed.
[2020-03-18] MEDS: ARIPiprazole 5 MG TAB PO SCH (22:08)
[2020-03-19 00:05] LABS: Glucose,Whole Blood 187 mg/dL (75-99)
[2020-03-19] MEDS: INSULIN ASPART (NovoLOG) 100 UNIT/ML VIAL SQ SCH ×4 (00:33→17:37)
[2020-03-19] MEDS: methylPREDNISolone SOD SUCCI 125 MG/2 ML VIAL IV SCH (00:35)
[2020-03-19 05:08] LABS: Anisocytosis Moderate; Basophils % (A) 0 %; Eosinophils % (A) 0 %; HCT 28.1 % (34.0-46.0); Hypochromasia Marked; Lymphocytes # (A) 0.1 k/uL (1.0-4.8); Lymphocytes % (A) 1 %; MCH 22.8 pg (25.0-35.0); MCHC 28.4 g/dL (31.0-37.0); MCV 80.1 fL (80.0-100.0); Mean Platelet Volume 8.1; Microcytosis Moderate; Monocytes # (A) 0.3 k/uL (0-1.0); Monocytes % (A) 2 %; Neutrophils % (A) 96 %; Platelet Count 134 k/uL (150-450); Poikilocytosis Moderate; RBC 3.51 m/uL (3.80-5.40); RDW 22.5 % (11.5-15.5); WBC 15.6 k/uL (3.8-10.6)
[2020-03-19 05:16] LABS: African American GFR (CKD) >90 (>60 ml/min/1.73 sqM); Anion Gap 1 mmol/L; Blood Urea Nitrogen 50 mg/dL (7-17); Carbon Dioxide 38 mmol/L (22-30); Chloride 101 mmol/L (98-107); Glucose 143 mg/dL (74-99); Non-African American GFR(CKD) 89 (>60 ml/min/1.73 sqM); Potassium 4.1 mmol/L (3.5-5.1); Sodium 140 mmol/L (137-145)
[2020-03-19] MEDS: NOREPINEPHRINE 4 MG in SODIUM CHLORIDE 0.9% 250 ML IV SCH (05:16)
[2020-03-19 06:02] LABS: Glucose,Whole Blood 166 mg/dL (75-99)
[2020-03-19] MEDS: LEVOTHYROXINE 100 MCG TAB PO SCH (06:49)
--- NOTE | 2020-03-19 07:10 | XR ---
EXAMINATION TYPE: XR chest 1V portable DATE OF EXAM: 03/19/2020 HISTORY: Shortness of breath. COMPARISON: 03/18/2020 TECHNIQUE: Single view of the chest is submitted. FINDINGS: Demonstrated are scattered senescent parenchymal change. Interval removal of endotracheal and NG tubes. Perihilar and basilar infiltrates persist. Small left greater than right effusions. The heart is stable. Hilar and mediastinal structures are within normal limits. Degenerative changes are seen of the dorsal spine. IMPRESSION: 1. Interval removal of endotracheal and NG tubes. Perihilar and basilar infiltrates persist. Small l eft greater than right effusions.
[2020-03-19] MEDS: IPRATROPIUM-ALBUTEROL 3 ML NEB INHALATION SCH ×5 (08:22→21:40)
[2020-03-19] MEDS: FORMOTEROL FUMARATE 20 MCG/2 ML NEBU INHALATION SCH ×3 (08:22→21:40)
[2020-03-19] MEDS: BUDESONIDE 1 MG/2 ML NEBU INHALATION SCH ×3 (08:22→21:40)
[2020-03-19] MEDS: PANTOPRAZOLE 40 MG/10 ML VIAL IVP SCH ×2 (08:39→21:47)
[2020-03-19] MEDS: METOPROLOL TARTRATE 25 MG TAB PO SCH ×3 (08:39→21:52)
[2020-03-19] MEDS: ATORVASTATIN 40 MG TAB PO SCH (08:39)
[2020-03-19] MEDS: methylPREDNISolone SOD SUCCI 40 MG/ML 1 ML VIAL IV SCH ×2 (08:39→21:46)
[2020-03-19] MEDS: ESCITALOPRAM 20 MG TAB PO SCH (08:39)
[2020-03-19] MEDS: NYSTATIN 100,000UNIT/GM CREAM 30 GM TUBE TOPICAL SCH ×3 (08:46→21:48)
--- NOTE | 2020-03-19 09:25 | P.PN ---
Subjective Progress Note Date: 03/19/20 Patient was extubated this morning. She was sipping on water when I saw her. She denies any shortness of breath. Objective - Vital Signs Vital signs: Vital Signs Temp 97.7 F 03/19/20 04:00 Pulse 72 03/19/20 08:46 Resp 22 03/19/20 07:00 BP 122/56 03/19/20 07:00 Pulse Ox 96 03/19/20 07:00 Intake & Output 03/18/20 03/19/20 03/19/20 18:59 06:59 18:59 Intake Total 694.791 610 10 Output Total 1040 975 75 Balance -345.209 -365 -65 Weight 95.7 kg Intake: IV 130 110 10 0.9 @ KVO 130 110 10 Intake, IV Titration 564.791 Amount Potassium Chloride 10 meq 200 In Water For Injection 1 100ml.bag @ 100 mls/hr IVPB Q1H KIET Rx#: [id number] Potassium Chloride 20 meq 200 In Water For Injection 1 100ml.bag @ 50 mls/hr IVPB Q2H KIET Rx#: [id number] propofoL 1,000 mg In 164.791 Empty Bag 1 bag @ Titrate IV .Q0M KIET Rx#: [id number] Oral 500 Output: Urine 1040 975 75 Other: Voiding Method Indwelling Catheter Indwelling Catheter # Bowel Movements 1 1 ABP, PAP, CO, CI - Last Documented Arterial Blood Pressure 116/74 - Exam General: The patient is awake and alert, in no distress Eye: there is normal conjunctiva bilaterally. Neck: The neck is supple, there is no JVD. Cardiovascular: Normal S1-S2, no S3-S4, no murmurs. Respiratory: Lungs with diffuse rales Gastrointestinal: Abdomen is soft, nontender Musculoskeletal: There is +1 pedal edema. Skin: Skin is warm and dry - Labs CBC & Chem 7: 03/19/20 04:47 03/19/20 04:47 Labs: Abnormal Lab Results - Last 24 Hours (Table) 03/18/20 03/18/20 03/19/20 Range/Units 11:52 17:28 00:04 WBC (3.8-10.6) k/uL RBC (3.80-5.40) m/uL Hgb (11.4-16.0) gm/dL Hct (34.0-46.0) % MCH (25.0-35.0) pg MCHC (31.0-37.0) g/dL RDW (11.5-15.5) % Plt Count (150-450) k/uL Neutrophils # (1.3-7.7) k/uL Lymphocytes # (1.0-4.8) k/uL Carbon Dioxide (22-30) mmol/L BUN (7-17) mg/dL Glucose (74-99) mg/dL POC Glucose (mg/dL) 161 H 178 H 187 H (75-99) mg/dL Calcium (8.4-10.2) mg/dL 03/19/20 03/19/20 03/19/20 Range/Units 04:47 04:47 06:00 WBC 15.6 H (3.8-10.6) k/uL RBC 3.51 L (3.80-5.40) m/uL Hgb 8.0 L (11.4-16.0) gm/dL Hct 28.1 L (34.0-46.0) % MCH 22.8 L (25.0-35.0) pg MCHC 28.4 L (31.0-37.0) g/dL RDW 22.5 H (11.5-15.5) % Plt Count 134 L (150-450) k/uL Neutrophils # 15.0 H (1.3-7.7) k/uL Lymphocytes # 0.1 L (1.0-4.8) k/uL Carbon Dioxide 38 H (22-30) mmol/L BUN 50 H (7-17) mg/dL Glucose 143 H (74-99) mg/dL POC Glucose (mg/dL) 166 H (75-99) mg/dL Calcium 8.0 L (8.4-10.2) mg/dL Microbiology - Last 24 Hours (Table) 03/14/20 08:08 Blood Culture - Preliminary Blood No Growth after 96 hours 03/16/20 04:10 Gram Stain - Final Sputum Sputum Culture - Final Assessment and Plan Assessment: The patient is a 69-year-old female with a PMH of type II DM, hypertension, hyperlipidemia, hypothyroidism, severe COPD, diastolic CHF, and morbid obesity who presented to the ED with shortness of breath along with lower extremity swelling. The patient was admitted for hypoxic and hypercapnic respiratory failure with CHF and COPD exacerbation with fluid overload. The patient was placed on IV Lasix with IV steroids and bronchodilators. The patient had episode of GI bleeding on 03/15 with a drop from 8.5-5.5 gm/dL. The patient was given 2 units of PRBCs and GI recommended continued monitoring. Hemoglobin dropped again to 6.7 on 03/17 requiring 1 unit of blood transfusion. The patient's hypercapnia worsened on 03/16 to a pCO2 of 85. Her mental status also deteriorated and the patient was subsequently intubated by the coin counter and wrapper. She was seen and evaluated in the medical ICU on 03/16. The patient was sedated and minimally arousable. Assessment and Plan Plan: Acute hypoxic and hypercapnic respiratory failure in setting of acute COPD and diastolic CHF exacerbations -Status post endotracheal intubation on 03/16 with successful intubation on 03/19 -IV steroid managed by ICU team -Defer management to certified orthoptist -Continue bronchodilators Acute diastolic heart failure exacerbation with severe pulmonary hypertension -Diuresis managed by nephrology Acute blood loss anemia secondary to GI bleeding -Status post 3 units of PRBCs -Continue to monitor CBC -Protonix 40 IV push twice a day -Status post EGD on 03/18 showing nonbleeding duodenal ulcer with mild gastritis and no active bleeding Altered mental status, likely toxo metabolic encephalopathy multifactorial in setting of hypercapnia with delirium on presentation Hyperkalemia, resolved -Holding home spironolactone -Nephrology following Hyponatremia -Improved Type II DM -Lispro insulin sliding scale blood glucose monitoring Hypothyroidism -Continue with home Synthroid dose DVT prophylaxis -With SCDs
--- NOTE | 2020-03-19 10:03 | P.PN ---
Subjective Patient is seen in follow-up for hyponatremia and volume overload. Status post blood transfusion on March 15 and . Hemoglobin 8 today. Not on vasopressors. Nonoliguric. Extubated yesterday. Currently awake and alert. Vital signs are stable. General: The patient appeared well nourished and normally developed. Intubated. HEENT: Head exam is unremarkable. Neck is without jugular venous distension. LUNGS: Breath sounds decreased. HEART: Regular rate and rhythm. ABDOMEN: Soft, nontender. EXTREMITITES: 2+ edema. Objective - Vital Signs Vital signs: Vital Signs Temp 97.7 F 03/19/20 04:00 Pulse 72 03/19/20 08:46 Resp 22 03/19/20 07:00 BP 122/56 03/19/20 07:00 Pulse Ox 96 03/19/20 07:00 Intake & Output 03/18/20 03/19/20 03/19/20 18:59 06:59 18:59 Intake Total 694.791 610 10 Output Total 1040 975 75 Balance -345.209 -365 -65 Weight 95.7 kg Intake: IV 130 110 10 0.9 @ KVO 130 110 10 Intake, IV Titration 564.791 Amount Potassium Chloride 10 meq 200 In Water For Injection 1 100ml.bag @ 100 mls/hr IVPB Q1H KIET Rx#: [id number] Potassium Chloride 20 meq 200 In Water For Injection 1 100ml.bag @ 50 mls/hr IVPB Q2H KIET Rx#: [id number] propofoL 1,000 mg In 164.791 Empty Bag 1 bag @ Titrate IV .Q0M KIET Rx#: [id number] Oral 500 Output: Urine 1040 975 75 Other: Voiding Method Indwelling Catheter Indwelling Catheter # Bowel Movements 1 1 ABP, PAP, CO, CI - Last Documented Arterial Blood Pressure 116/74 - Labs CBC & Chem 7: 03/19/20 04:47 03/19/20 04:47 Labs: Abnormal Lab Results - Last 24 Hours (Table) 03/18/20 03/18/20 03/19/20 Range/Units 11:52 17:28 00:04 WBC (3.8-10.6) k/uL RBC (3.80-5.40) m/uL Hgb (11.4-16.0) gm/dL Hct (34.0-46.0) % MCH (25.0-35.0) pg MCHC (31.0-37.0) g/dL RDW (11.5-15.5) % Plt Count (150-450) k/uL Neutrophils # (1.3-7.7) k/uL Lymphocytes # (1.0-4.8) k/uL Carbon Dioxide (22-30) mmol/L BUN (7-17) mg/dL Glucose (74-99) mg/dL POC Glucose (mg/dL) 161 H 178 H 187 H (75-99) mg/dL Calcium (8.4-10.2) mg/dL 03/19/20 03/19/20 03/19/20 Range/Units 04:47 04:47 06:00 WBC 15.6 H (3.8-10.6) k/uL RBC 3.51 L (3.80-5.40) m/uL Hgb 8.0 L (11.4-16.0) gm/dL Hct 28.1 L (34.0-46.0) % MCH 22.8 L (25.0-35.0) pg MCHC 28.4 L (31.0-37.0) g/dL RDW 22.5 H (11.5-15.5) % Plt Count 134 L (150-450) k/uL Neutrophils # 15.0 H (1.3-7.7) k/uL Lymphocytes # 0.1 L (1.0-4.8) k/uL Carbon Dioxide 38 H (22-30) mmol/L BUN 50 H (7-17) mg/dL Glucose 143 H (74-99) mg/dL POC Glucose (mg/dL) 166 H (75-99) mg/dL Calcium 8.0 L (8.4-10.2) mg/dL Microbiology - Last 24 Hours (Table) 03/14/20 08:08 Blood Culture - Preliminary Blood No Growth after 96 hours 03/16/20 04:10 Gram Stain - Final Sputum Sputum Culture - Final Assessment and Plan Plan: Assessment: 1. Hypervolemic hyponatremia. Sodium level 140 today. Status post [facility] [place] 14. Lasix drip discontinued March 16 due to hypotension. 2. Acute GI bleed status post blood transfusion. GI following. Hemoglobin 8 today. 3. Acute hypercapnic respiratory failure. Status post extubation March 18. 4. Mild hyperkalemia secondary to GI bleed. Was also on lisinopril. Improved. 5. Volume overload. Improved with diuresis. 6. Acute diastolic CHF with severe pulmonary hypertension. 7. Metabolic alkalosis secondary to diuresis. Started on Diamox today. Plan: Increase Diamox to 250 mg IV twice daily. Continue to monitor renal function and urine output.
--- NOTE | 2020-03-19 10:15 | PN ---
PROGRESS NOTE PULMONARY/CRITICAL CARE PROGRESS NOTE: DATE OF SERVICE: 03/19/2020 CRITICAL CARE TIME: 34 minutes. This is a 69-year-old female who was admitted back on March 11, 2020. She was initially admitted with a diagnosis of acute hypoxemic respiratory failure secondary to both COPD and diastolic CHF. The patient developed a suspected lower GI bleed as well. She had an EGD done on March 18 which showed a small duodenal ulcer which was not active. The patient developed acute respiratory failure and was intubated, mechanically ventilated on March 16 for respiratory failure. I am happy to report that on March 18, yesterday, she was successfully extubated. She is a DNR/DNI patient. She is not to be reintubated according to her family members. Currently, she is on 3 L. She is getting saline at KVO. We are going to add a small dose of Diamox for metabolic alkalosis. Currently otherwise, she is doing okay. She is a little lethargic and sleepy but she does arouse appropriately. She does answer questions. She appears not to have any respiratory difficulty or distress. Current vital signs are reviewed, temperature 97.7, heart rate is 72, respiratory rate 22, blood pressure 122/56 mean 78, saturations are 96% on 3 L. Appears in no acute distress. HEENT: Examination is grossly unremarkable. Mucous membranes are moist. NECK: Supple, full range of motion. No adenopathy. Neck veins are flat. CARDIOVASCULAR: Examination reveals regular rhythm and rate. Heart sounds are distant. Heart rate 72. S1, S2 normal. LUNGS: Reveal a few scattered rhonchi. No wheezes. No crackles. ABDOMEN: Soft, but obese. Bowel sounds are not heard. EXTREMITIES: Reveal some edema. In fact, she has sort of diffuse anasarca throughout. SKIN: Without rash. There are a few areas of ecchymoses. NEUROLOGIC: Neurologic examination is brief but nonfocal. LABS: Reviewed. White count 15.6, hemoglobin 8, hematocrit 28.1, platelet count 134,000, sodium 140, potassium 4.1, chloride is 101, CO2 is 38, anion gap is 1. BUN and creatinine were 15 and 0.69. Microbiology is currently negative. Chest x-ray shows status post removal of endotracheal tube and NG tube. She does have some mild perihilar and basilar infiltrates. Small effusions bilaterally. MEDICATIONS: Reviewed. Currently, she is on Tylenol, Diamox, Abilify, Lipitor, Pulmicort, Lexapro, formoterol, insulin, DuoNeb, levothyroxine, magnesium replacement, Solu-Medrol, metoprolol, Narcan, nystatin, Zofran, Protonix. ASSESSMENT: 1. Acute on chronic hypoxemic and hypercapnic respiratory failure secondary to chronic obstructive pulmonary disease but also diastolic congestive heart failure, status post intubation on March 16 and successful extubation on March 18. 2. Acute blood loss anemia secondary to gastrointestinal bleed, status post EGD on March 18 which showed a small duodenal nonbleeding ulcer. 3. Severe/stage 3 chronic obstructive pulmonary disease, with an FEV1 that is 42% of predicted. 4. Metabolic alkalosis, secondary to volume contraction, hypokalemia and over- diuresis, currently on a small dose of Diamox. 5. Chronic cor pulmonale. 6. Hypothyroidism. 7. Secondary pulmonary hypertension with moderate tricuspid regurgitation and mild mitral regurgitation. 8. Degenerative joint disease. 9. Type 2 diabetes. 10.Obesity. 11.Previous heavy tobacco use. 12.History of kidney stones. PLAN: The patient is doing much better. According to her family, she is not to be reintubated. She is on 3 L. She is getting IV of saline at [facility]. Her EGD from yesterday showed a small duodenal nonbleeding ulcer. We added Diamox 250 mg a day for her metabolic alkalosis. Will continue to follow. Prognosis is guarded. CRITICAL CARE TIME: 32 minutes. MMAMLICKL / IJN: [id number] /
[2020-03-19 11:28] LABS: Glucose,Whole Blood 125 mg/dL (75-99)
[2020-03-19 17:32] LABS: Glucose,Whole Blood 209 mg/dL (75-99)
--- NOTE | 2020-03-19 19:13 | P.PN ---
Subjective Progress Note Date: 03/17/20 Principal diagnosis: GI bleed Lying in bed, intubated and sedated with at bedside. Patient has continued to have some maroon-colored stool. Plan is for EGD tomorrow. Objective - Vital Signs Vital signs: Vital Signs Temp 98.8 F 03/17/20 12:49 Pulse 76 03/17/20 13:00 Resp 24 03/17/20 13:00 BP 143/55 03/17/20 13:00 Pulse Ox 93 L 03/17/20 12:49 Intake & Output 03/16/20 03/17/20 03/17/20 18:59 06:59 18:59 Intake Total 251.413 623.903 484.945 Output Total 3150 1045 1905 Balance -2898.587 -421.097 -1420.055 Weight 99.1 kg 99.1 kg Intake: IV 55 65 0.9 @ KVO 55 65 Intake, IV Titration 251.413 568.903 109.945 Amount Furosemide 100 mg In 78.833 Sodium Chloride 0.9% 90 ml @ 10 MG/HR 10 mls/hr IV .Q10H KIET Rx#: [id number] Norepinephrine 4 mg In 16.976 204.086 8.679 Sodium Chloride 0.9% 250 ml @ 0.05 MCG/KG/MIN 19. 145 mls/hr IV .[id number] KIET Rx#:[id number] propofoL 1,000 mg In 155.604 364.817 101.266 Empty Bag 1 bag @ Titrate IV .Q0M KIET Rx#: [id number] Blood Product 310 Rc As-3 Unit 310 [id number] Output: Urine 3150 1045 1905 Other: Voiding Method Indwelling Catheter Indwelling Catheter ABP, PAP, CO, CI - Last Documented Arterial Blood Pressure 141/47 - Exam On physical examination, patient appears comfortable in no apparent distress. HEAD: Normocephalic, atraumatic. EYES: No scleral icterus. No conjunctival injection. MOUTH: No lesions, tongue midline ET tube in place. NECK: Trachea midline, no gross abnormalities. CHEST: Decreased air and all campbell, coarse respiratory sounds secondary to mechanical ventilation. ABDOMEN: Soft. Bowel sounds are positive. No organomegaly. No guarding or rigidity. EXTREMITIES: No pedal edema. SKIN: No rashes, no jaundice. NEUROLOGIC: Intubated and sedated. - Labs CBC & Chem 7: 03/19/20 04:47 03/19/20 04:47 Labs: Abnormal Lab Results - Last 24 Hours (Table) 03/15/20 03/16/20 03/16/20 Range/Units 05:53 18:13 23:50 RBC (3.80-5.40) m/uL Hgb (11.4-16.0) gm/dL Hct (34.0-46.0) % MCV (80.0-100.0) fL MCH (25.0-35.0) pg MCHC (31.0-37.0) g/dL RDW (11.5-15.5) % Neutrophils # (1.3-7.7) k/uL Lymphocytes # (1.0-4.8) k/uL ABG pH (7.35-7.45) ABG pCO2 (35-45) mmHg ABG pO2 (83-108) mmHg ABG HCO3 (21-25) mmol/L ABG Total CO2 (19-24) mmol/L Sodium (137-145) mmol/L Carbon Dioxide (22-30) mmol/L BUN (7-17) mg/dL Glucose (74-99) mg/dL POC Glucose (mg/dL) 211 H 201 H (75-99) mg/dL Calcium (8.4-10.2) mg/dL Crossmatch See Detail 03/17/20 03/17/20 03/17/20 Range/Units 05:05 05:08 05:08 RBC 3.09 L (3.80-5.40) m/uL Hgb 6.7 L* (11.4-16.0) gm/dL Hct 22.8 L (34.0-46.0) % MCV 73.9 L (80.0-100.0) fL MCH 21.8 L (25.0-35.0) pg MCHC 29.5 L (31.0-37.0) g/dL RDW 21.0 H (11.5-15.5) % Neutrophils # 9.6 H (1.3-7.7) k/uL Lymphocytes # 0.2 L (1.0-4.8) k/uL ABG pH 7.47 H (7.35-7.45) ABG pCO2 53 H (35-45) mmHg ABG pO2 79 L (83-108) mmHg ABG HCO3 38 H (21-25) mmol/L ABG Total CO2 40 H (19-24) mmol/L Sodium 134 L (137-145) mmol/L Carbon Dioxide 34 H (22-30) mmol/L BUN 72 H (7-17) mg/dL Glucose 170 H (74-99) mg/dL POC Glucose (mg/dL) (75-99) mg/dL Calcium 7.7 L (8.4-10.2) mg/dL Crossmatch 03/17/20 03/17/20 Range/Units 06:19 12:47 RBC (3.80-5.40) m/uL Hgb (11.4-16.0) gm/dL Hct (34.0-46.0) % MCV (80.0-100.0) fL MCH (25.0-35.0) pg MCHC (31.0-37.0) g/dL RDW (11.5-15.5) % Neutrophils # (1.3-7.7) k/uL Lymphocytes # (1.0-4.8) k/uL ABG pH (7.35-7.45) ABG pCO2 (35-45) mmHg ABG pO2 (83-108) mmHg ABG HCO3 (21-25) mmol/L ABG Total CO2 (19-24) mmol/L Sodium (137-145) mmol/L Carbon Dioxide (22-30) mmol/L BUN (7-17) mg/dL Glucose (74-99) mg/dL POC Glucose (mg/dL) 204 H 199 H (75-99) mg/dL Calcium (8.4-10.2) mg/dL Crossmatch Microbiology - Last 24 Hours (Table) 03/14/20 08:08 Blood Culture - Preliminary Blood No Growth after 72 hours 03/16/20 04:10 Gram Stain - Preliminary Sputum Sputum Culture - Preliminary Assessment and Plan (1) GI bleed Narrative/Plan: 69-year-old female with multiple medical comorbidities currently admitted and receiving treatment for acute diastolic heart failure and acute exacerbation of COPD. During her hospitalization stay the patient developed multiple episodes of maroon-colored bowel movements and was noted to have a fall in her hemoglobin from baseline of 9-10-5.5. She is receiving 2 units of packed red blood cells. History taken from the patient and her were significant for no prior endoscopic evaluation, no history of peptic ulcer disease, no NSAID use and no abdominal pain. Unclear etiology, may be related to upper GI bleed from peptic ulcer disease, AVM, gastritis or esophagitis or lower GI bleed from diverticular disease or other etiology. Plan is for endoscopic evaluation tomorrow for extubation. Current Visit: Yes Status: Acute Code(s): K92.2 - GASTROINTESTINAL HEM ORRHAGE, UNSPECIFIED SNOMED Code(s): 49386626 (2) Anemia associated with acute blood loss Current Visit: Yes Status: Acute Code(s): D62 - ACUTE POSTHEMORRHAGIC ANEMIA SNOMED Code(s): 143818794 Plan: Supportive care Okay for tube feeds, nothing by mouth after midnight Continue to monitor hemoglobin and hematocrit and transfuse as needed Continue Protonix 40 mg twice daily Continue optimization of her respiratory status with treatment of COPD and acute diastolic heart failure, with plan for EGD for evaluation tomorrow Continue management per looper fixer service Continue to monitor stool output Thank you for allowing us to participate in the care of the patient
--- NOTE | 2020-03-19 20:24 | PN ---
PROGRESS NOTE DATE OF DICTATION: 03/19/2020 This patient is a 69-year-old pleasant white female admitted to the hospital with acute upper GI bleed as well as exacerbation of COPD. She underwent an upper endoscopy yesterday by Dr. King and she was noted to have a non-bleeding duodenal ulcer without any stigmata of bleed and mild gastritis. The patient is doing well. She had no bowel movements today. Hemoglobin remains stable at 8 g/dL. She is on a clear liquid diet, tolerating well. PHYSICAL EXAMINATION: She appears comfortable. No apparent distress. Vital signs are stable. Blood pressure is 142/65, pulse rate 59, temperature 98. HEENT examination unremarkable. Conjunctivae pink. Sclerae anicteric. Oral cavity no lesions. NECK: No JVD or lymph node enlargement. CHEST: Clear to auscultation. HEART: Regular rate and rhythm. ABDOMEN: Soft. Bowel sounds are positive. No organomegaly. NEUROLOGIC: Alert and oriented x3. No focal deficits. LABS: Labs from today show WBC 15.6, hemoglobin 8, platelets 134. She is status post 3 units of PRBC transfusion during this hospitalization. IMPRESSION: 1. Acute upper gastrointestinal bleed, status post esophagogastroduodenoscopy by Dr. King yesterday that revealed a non-bleeding duodenal bulbar ulcer. Presently on Protonix 40 mg twice daily. Hemoglobin stable at 8.4 g/dL status post 3 units of PRBC transfusion during this hospitalization. 2. Exacerbation of chronic obstructive pulmonary disease/acute respiratory failure, status post extubation yesterday. 3. History of hypertension. RECOMMENDATIONS: 1. Continue Protonix 40 mg twice daily. 2. Continue with a clear liquid diet. 3. Continue symptomatic and supportive care. 4. Repeat labs in the morning. 5. Will follow with you closely. Thank you for this consultation. MMODL / IJN: [id number] /
[2020-03-19] MEDS: ARIPiprazole 5 MG TAB PO SCH (21:52)
[2020-03-20] MEDS: INSULIN ASPART (NovoLOG) 100 UNIT/ML VIAL SQ SCH ×5 (00:15→20:51)
[2020-03-20 00:18] LABS: Glucose,Whole Blood 160 mg/dL (75-99)
[2020-03-20 05:28] LABS: Anisocytosis Moderate; Basophils % (A) 0 %; Eosinophils % (A) 0 %; HCT 29.2 % (34.0-46.0); HGB 8.1 gm/dL (11.4-16.0); Hypochromasia Marked; Lymphocytes # (A) 0.2 k/uL (1.0-4.8); Lymphocytes % (A) 1 %; MCH 23.3 pg (25.0-35.0); MCHC 27.6 g/dL (31.0-37.0); MCV 84.4 fL (80.0-100.0); Mean Platelet Volume 7.6; Microcytosis Slight; Monocytes # (A) 0.5 k/uL (0-1.0); Monocytes % (A) 3 %; Neutrophils # (A) 15.8 k/uL (1.3-7.7); Neutrophils % (A) 95 %; Platelet Count 116 k/uL (150-450); Poikilocytosis Moderate; RBC 3.46 m/uL (3.80-5.40); RDW 21.1 % (11.5-15.5); WBC 16.6 k/uL (3.8-10.6)
[2020-03-20 05:38] LABS: Calcium 7.8 mg/dL (8.4-10.2); Potassium 3.7 mmol/L (3.5-5.1)
--- NOTE | 2020-03-20 06:06 | XR ---
EXAMINATION TYPE: XR chest 1V portable DATE OF EXAM: 03/20/2020 HISTORY: CHF. REFERENCE: Previous study dated 03/19/2020. FINDINGS: There is masslike density at the right hilum. This is unchanged from previous. There contin ues be vascular congestion and mild interstitial change. There is improving pleural parenchymal emerson e at the left lung base. The heart remains enlarged. IMPRESSION: OVERALL IMPROVEMENT IN THE APPEARANCE OF THE CHEST.
[2020-03-20] MEDS ORDERED: Potassium Replacement Protocol 1 EACH MISC MISCELLANE PRN (06:34)
[2020-03-20 06:39] LABS: Glucose,Whole Blood 212 mg/dL (75-99)
[2020-03-20] MEDS: LEVOTHYROXINE 100 MCG TAB PO SCH (06:46)
[2020-03-20] MEDS ORDERED: POTASSIUM CHLORIDE ER 20 MEQ TAB.ER PO SCH ×3 (07:00→20:00)
[2020-03-20] MEDS: IPRATROPIUM-ALBUTEROL 3 ML NEB INHALATION SCH ×4 (08:17→19:40)
[2020-03-20] MEDS: BUDESONIDE 1 MG/2 ML NEBU INHALATION SCH ×2 (08:17→19:40)
[2020-03-20] MEDS: FORMOTEROL FUMARATE 20 MCG/2 ML NEBU INHALATION SCH ×2 (08:17→19:40)
--- NOTE | 2020-03-20 08:19 | P.PN ---
Subjective Progress Note Date: 03/20/20 Principal diagnosis: This is a 69-year-old followed up with hyponatremia secondary to congestive heart failure. She was admitted with shortness of breath significant edema and congestive heart failure. She has been diuresed. She needed Samsca because of significant hyponatremia. With diuresis and Samsca her sodium is improved. She has mild metabolic alkalosis. She is feeling fairly well she is on O2 nasal cannula. Denies any other complaints. She is known with hypertension and asthma and COPD type 2 diabetes obesity nephrolithiasis. Objective - Vital Signs Vital signs: Vital Signs Temp 97.6 F 03/20/20 04:00 Pulse 62 03/20/20 07:00 Resp 19 03/20/20 07:00 BP 135/62 03/20/20 07:00 Pulse Ox 93 L 03/20/20 07:00 Intake & Output 03/19/20 03/20/20 03/20/20 18:59 06:59 18:59 Intake Total 690 1100 250 Output Total 865 675 40 Balance -175 425 210 Weight 95.7 kg 96.5 kg Intake: IV 90 100 0.9 @ KVO 90 100 Oral 600 1000 250 Output: Urine 865 675 40 Other: Voiding Method Indwelling Catheter Indwelling Catheter # Bowel Movements 1 1 ABP, PAP, CO, CI - Last Documented Arterial Blood Pressure 116/74 On examination on nasal cannula comfortable. HEENT exam no JVP neck is supple no facial asymmetry Lungs are clear to auscultation but poor air entry. Heart sounds are unremarkable for any murmur rub gallop Abdomen soft nontender Extremity exam was moderate edema Neurologically generalized weakness - Labs CBC & Chem 7: 03/20/20 04:27 03/20/20 04:27 Labs: Abnormal Lab Results - Last 24 Hours (Table) 03/19/20 03/19/20 03/20/20 Range/Units 11:26 17:30 00:12 WBC (3.8-10.6) k/uL RBC (3.80-5.40) m/uL Hgb (11.4-16.0) gm/dL Hct (34.0-46.0) % MCH (25.0-35.0) pg MCHC (31.0-37.0) g/dL RDW (11.5-15.5) % Plt Count (150-450) k/uL Neutrophils # (1.3-7.7) k/uL Lymphocytes # (1.0-4.8) k/uL Chloride (98-107) mmol/L Carbon Dioxide (22-30) mmol/L BUN (7-17) mg/dL Glucose (74-99) mg/dL POC Glucose (mg/dL) 125 H 209 H 160 H (75-99) mg/dL Calcium (8.4-10.2) mg/dL 03/20/20 03/20/20 03/20/20 Range/Units 04:27 04:27 06:38 WBC 16.6 H (3.8-10.6) k/uL RBC 3.46 L (3.80-5.40) m/uL Hgb 8.1 L (11.4-16.0) gm/dL Hct 29.2 L (34.0-46.0) % MCH 23.3 L (25.0-35.0) pg MCHC 27.6 L (31.0-37.0) g/dL RDW 21.1 H (11.5-15.5) % Plt Count 116 L (150-450) k/uL Neutrophils # 15.8 H (1.3-7.7) k/uL Lymphocytes # 0.2 L (1.0-4.8) k/uL Chloride 97 L (98-107) mmol/L Carbon Dioxide 38 H (22-30) mmol/L BUN 39 H (7-17) mg/dL Glucose 165 H (74-99) mg/dL POC Glucose (mg/dL) 212 H (75-99) mg/dL Calcium 7.8 L (8.4-10.2) mg/dL Microbiology - Last 24 Hours (Table) 03/14/20 08:08 Blood Culture - Preliminary Blood No Growth after 120 hours Assessment and Plan Assessment: Impression 1. Hyponatremia secondary to congestive heart failure. Improving with Samsca single-dose dated 03/14/2020 and diuresis, Lasix drip discontinued March 16. 2 mild degree of metabolic alkalosis secondary to diuresis and steroids. On Diamox completed 3 days. 3. COPD. Stable 4. Diabetes mellitus controlled blood sugar. 5. CHF better radiologically and clinically Recommendation 1. Continue Diamox because of the metabolic alkalosis and need for diuresis. 2. Watch CHF and if necessary will reintroduce Lasix 3. Monitor intake and output and labs
[2020-03-20] MEDS: methylPREDNISolone SOD SUCCI 40 MG/ML 1 ML VIAL IV SCH ×2 (08:54→20:40)
[2020-03-20] MEDS: ATORVASTATIN 40 MG TAB PO SCH (08:54)
[2020-03-20] MEDS: PANTOPRAZOLE 40 MG/10 ML VIAL IVP SCH (08:54)
[2020-03-20] MEDS: ESCITALOPRAM 20 MG TAB PO SCH (08:55)
[2020-03-20] MEDS: METOPROLOL TARTRATE 25 MG TAB PO SCH ×3 (08:55→21:45)
[2020-03-20] MEDS: NYSTATIN 100,000UNIT/GM CREAM 30 GM TUBE TOPICAL SCH ×3 (08:59→21:44)
--- NOTE | 2020-03-20 09:40 | P.PN ---
Subjective Progress Note Date: 03/20/20 Principal diagnosis: Acute hypoxemic respiratory failure The patient is seen today 03/20/2020 in follow-up in the intensive care unit. She was admitted back on 03/11/2020 with acute hypoxemic respiratory failure secondary to COPD and diastolic congestive heart failure. She had also developed lower GI bleed as well. The patient did develop worsening respiratory failure requiring intubation mechanical ventilatory support on March 16 and successfully extubated on March 18. EGD on March 18 showed small blood and alter that was not active. She is now a DO NOT RESUSCITATE/DO NOT INTUBATE CODE STATUS. She is currently resting comfortably in bed. She is maintaining O2 saturations in the 90s on 2 L/m per nasal cannula. No IV fluids. Today's chest x-ray reveals overall improvement in aeration. Masslike density in the right hilum. Unchanged compared to previous. She is status post 3 units packed red blood cells this admission. Current hemoglobin 8.1. White count 16.6. Sodium 137. Potassium 3.7. Creatinine 0.78. Objective - Vital Signs Vital signs: Vital Signs Temp 98.2 F 03/20/20 08:00 Pulse 58 L 03/20/20 09:00 Resp 23 03/20/20 09:00 BP 129/61 03/20/20 09:00 Pulse Ox 96 03/20/20 09:00 Intake & Output 03/19/20 03/20/20 03/20/20 18:59 06:59 18:59 Intake Total 690 1100 250 Output Total 865 675 230 Balance -175 425 20 Weight 95.7 kg 96.5 kg Intake: IV 90 100 0.9 @ KVO 90 100 Oral 600 1000 250 Output: Urine 865 675 230 Other: Voiding Method Indwelling Catheter Indwelling Catheter Indwelling Catheter # Bowel Movements 1 1 ABP, PAP, CO, CI - Last Documented Arterial Blood Pressure 116/74 - Exam GENERAL EXAM: Alert, pleasant 69-year-old female patient, on 2 L nasal cannula, comfortable in no apparent distress. HEAD: Normocephalic. EYES: Normal reaction of pupils, equal size. NOSE: Clear with pink turbinates. THROAT: No erythema or exudates. NECK: No masses, no JVD. CHEST: No chest wall deformity. LUNGS: Equal air entry with few scattered rhonchi. CVS: S1 and S2 normal with no audible murmur, regular rhythm. ABDOMEN: No hepatosplenomegaly, normal bowel sounds, no guarding or rigidity. SPINE: No scoliosis or deformity SKIN: No rashes CENTRAL NERVOUS SYSTEM: No focal deficits, tone is normal in all 4 extremities. EXTREMITIES: There is no peripheral edema. No clubbing, no cyanosis. Peripheral pulses are intact. - Labs CBC & Chem 7: 03/20/20 04:27 03/20/20 04:27 Labs: Abnormal Lab Results - Last 24 Hours (Table) 03/19/20 03/19/20 03/20/20 Range/Units 11:26 17:30 00:12 WBC (3.8-10.6) k/uL RBC (3.80-5.40) m/uL Hgb (11.4-16.0) gm/dL Hct (34.0-46.0) % MCH (25.0-35.0) pg MCHC (31.0-37.0) g/dL RDW (11.5-15.5) % Plt Count (150-450) k/uL Neutrophils # (1.3-7.7) k/uL Lymphocytes # (1.0-4.8) k/uL Chloride (98-107) mmol/L Carbon Dioxide (22-30) mmol/L BUN (7-17) mg/dL Glucose (74-99) mg/dL POC Glucose (mg/dL) 125 H 209 H 160 H (75-99) mg/dL Calcium (8.4-10.2) mg/dL 03/20/20 03/20/20 03/20/20 Range/Units 04:27 04:27 06:38 WBC 16.6 H (3.8-10.6) k/uL RBC 3.46 L (3.80-5.40) m/uL Hgb 8.1 L (11.4-16.0) gm/dL Hct 29.2 L (34.0-46.0) % MCH 23.3 L (25.0-35.0) pg MCHC 27.6 L (31.0-37.0) g/dL RDW 21.1 H (11.5-15.5) % Plt Count 116 L (150-450) k/uL Neutrophils # 15.8 H (1.3-7.7) k/uL Lymphocytes # 0.2 L (1.0-4.8) k/uL Chloride 97 L (98-107) mmol/L Carbon Dioxide 38 H (22-30) mmol/L BUN 39 H (7-17) mg/dL Glucose 165 H (74-99) mg/dL POC Glucose (mg/dL) 212 H (75-99) mg/dL Calcium 7.8 L (8.4-10.2) mg/dL Microbiology - Last 24 Hours (Table) 03/14/20 08:08 Blood Culture - Preliminary Blood No Growth after 120 hours Assessment and Plan Assessment: #1. Acute on chronic hypoxic and hypercapnic respiratory failure, multifactorial secondary to underlying COPD, COPD exacerbation and acute on chronic diastolic congestive heart failure. She did require mechanical ventilatory support from March 16 to 03/18/2020. #2. Acute blood loss anemia related to lower GI bleeding, patient started p assing maroon-colored stools on 03/14/2020, requiring transfusion with 3 units of packed red blood cells. Hemoglobin is currently 8.1 this morning. She is status post EGD with no active bleeding noted on 03/18/2020. #3. Acute exacerbation of COPD, in the patient with baseline FEV1 of 42% of predicted and diffusion capacity of 45% of predicted #4. Chronic cor pulmonale, and worsening right-sided congestive heart failure #5. Hypothyroidism #6. Severe pulmonary hypertension, moderate tricuspid regurgitation, and mild mitral regurgitation #7. Degenerative joint disease #8. Type 2 diabetes mellitus #9. Former smoker #10. History of nephrolithiasis #11. Hyponatremia, related to hypervolemia of acute exacerbation of CHF Plan: The patient was seen and evaluated by Dr. Arora Currently stable from the pulmonary standpoint No further active GI bleeding Continue the current treatment plan We'll continue to follow DO NOT RESUSCITATE/DO NOT INTUBATE CODE STATUS I, the cosigning physician, performed a history & physical examination of the patient. Lungs sounds with bilateral scattered rhonchi. Maintaining good O2 saturations in the 90s on 2 L/m per nasal cannula. I discussed the assessment and plan of care with my nurse practitioner, Melany Rodriguez. I attest to the above note as dictated by her.
[2020-03-20 12:09] LABS: Glucose,Whole Blood 280 mg/dL (75-99)
--- NOTE | 2020-03-20 12:43 | P.PN ---
Subjective Progress Note Date: 03/20/20 Patient is awake and alert today. She is on 2 L of oxygen. She denies shortness of breath that her lungs sounds congested across the room. Objective - Vital Signs Vital signs: Vital Signs Temp 98.2 F 03/20/20 08:00 Pulse 71 03/20/20 12:00 Resp 23 03/20/20 09:00 BP 129/61 03/20/20 09:00 Pulse Ox 96 03/20/20 09:00 Intake & Output 03/19/20 03/20/20 03/20/20 18:59 06:59 18:59 Intake Total 690 1100 250 Output Total 865 675 230 Balance -175 425 20 Weight 95.7 kg 96.5 kg Intake: IV 90 100 0.9 @ KVO 90 100 Oral 600 1000 250 Output: Urine 865 675 230 Other: Voiding Method Indwelling Catheter Indwelling Catheter Indwelling Catheter # Bowel Movements 1 1 ABP, PAP, CO, CI - Last Documented Arterial Blood Pressure 116/74 - Exam General: The patient is awake and alert, in no distress Eye: there is normal conjunctiva bilaterally. Neck: The neck is supple, there is no JVD. Cardiovascular: Normal S1-S2, no S3-S4, no murmurs. Respiratory: Lungs with diffuse rales Gastrointestinal: Abdomen is soft, nontender Musculoskeletal: There is +1 pedal edema. Skin: Skin is warm and dry - Labs CBC & Chem 7: 03/20/20 04:27 03/20/20 09:30 Labs: Abnormal Lab Results - Last 24 Hours (Table) 03/19/20 03/20/20 03/20/20 Range/Units 17:30 00:12 04:27 WBC (3.8-10.6) k/uL RBC (3.80-5.40) m/uL Hgb (11.4-16.0) gm/dL Hct (34.0-46.0) % MCH (25.0-35.0) pg MCHC (31.0-37.0) g/dL RDW (11.5-15.5) % Plt Count (150-450) k/uL Neutrophils # (1.3-7.7) k/uL Lymphocytes # (1.0-4.8) k/uL Chloride 97 L (98-107) mmol/L Carbon Dioxide 38 H (22-30) mmol/L BUN 39 H (7-17) mg/dL Glucose 165 H (74-99) mg/dL POC Glucose (mg/dL) 209 H 160 H (75-99) mg/dL Calcium 7.8 L (8.4-10.2) mg/dL 03/20/20 03/20/20 03/20/20 Range/Units 04:27 06:38 12:07 WBC 16.6 H (3.8-10.6) k/uL RBC 3.46 L (3.80-5.40) m/uL Hgb 8.1 L (11.4-16.0) gm/dL Hct 29.2 L (34.0-46.0) % MCH 23.3 L (25.0-35.0) pg MCHC 27.6 L (31.0-37.0) g/dL RDW 21.1 H (11.5-15.5) % Plt Count 116 L (150-450) k/uL Neutrophils # 15.8 H (1.3-7.7) k/uL Lymphocytes # 0.2 L (1.0-4.8) k/uL Chloride (98-107) mmol/L Carbon Dioxide (22-30) mmol/L BUN (7-17) mg/dL Glucose (74-99) mg/dL POC Glucose (mg/dL) 212 H 280 H (75-99) mg/dL Calcium (8.4-10.2) mg/dL Microbiology - Last 24 Hours (Table) 03/14/20 08:08 Blood Culture - Final Blood No Growth after 144 hours Assessment and Plan Assessment: The patient is a 69-year-old female with a PMH of type II DM, hypertension, hyperlipidemia, hypothyroidism, severe COPD, diastolic CHF, and morbid obesity who presented to the ED with shortness of breath along with lower extremity swelling. The patient was admitted for hypoxic and hypercapnic respiratory failure with CHF and COPD exacerbation with fluid overload. The patient was placed on IV Lasix with IV steroids and bronchodilators. The patient had episode of GI bleeding on 03/15 with a drop from 8.5-5.5 gm/dL. The patient was given 2 units of PRBCs and GI recommended continued monitoring. Hemoglobin dropped again to 6.7 on 03/17 requiring 1 unit of blood transfusion. The patient's hypercapnia worsened on 03/16 to a pCO2 of 85. Her mental status also deteriorated and the patient was subsequently intubated by the production planner scheduler. She was seen and evaluated in the medical ICU on 03/16. The patient was sedated and minimally arousable. Assessment and Plan Plan: Acute hypoxic and hypercapnic respiratory failure in setting of acute COPD and diastolic CHF exacerbations -Status post endotracheal intubation on 03/16 with successful intubation on 03/19 -IV steroid managed by ICU team -Defer management to stained glass glazier helper -Continue bronchodilators Acute diastolic heart failure exacerbation with severe pulmonary hypertension -Diuresis managed by nephrology Acute blood loss anemia secondary to GI bleeding -Status post 3 units of PRBCs -Continue to monitor CBC -Protonix 40 IV push twice a day -Status post EGD on 03/18 showing nonbleeding duodenal ulcer with mild gastritis and no active bleeding Altered mental status, likely toxo metabolic encephalopathy multifactorial in setting of hypercapnia with delirium on presentation Hyperkalemia, resolved -Holding home spironolactone -Nephrology following Hyponatremia -Improved Type II DM -Lispro insulin sliding scale blood glucose monitoring Hypothyroidism -Continue with home Synthroid dose DVT prophylaxis -With SCDs CODE STATUS -DNR/DNI
[2020-03-20 17:01] LABS: Glucose,Whole Blood 163 mg/dL (75-99)
[2020-03-20] MEDS: PANTOPRAZOLE 40 MG TABLET PO SCH (20:36)
--- NOTE | 2020-03-20 20:38 | PN ---
PROGRESS NOTE DATE OF SERVICE: 03/20/2020 Patient is a 69-year-old pleasant white female admitted to the hospital with acute GI bleed and exacerbation of COPD. She is doing well. She had no further episodes of bleeding. Hemoglobin is stable at 8.3 g/dL. She had one dark-colored bowel movement last night. Tolerating regular diet well. She denies any abdominal pain. No nausea, vomiting. PHYSICAL EXAMINATION: Appears comfortable. VITAL SIGNS: Stable. Blood pressure is 124/52, pulse 61, temperature 98.6. HEENT: Examination unremarkable. Conjunctivae are pink, sclerae anicteric. Oral cavity no lesions. NECK: No JVD or lymph node enlargement. CHEST: Clear to auscultation. HEART: Regular rate and rhythm. ABDOMEN: Soft. Bowel sounds are positive. No organomegaly. EXTREMITIES: No pedal edema. NEURO: She is alert and oriented x3. No focal deficits. LABS: WBC 16.6, hemoglobin 8.1, platelets 116. BUN and creatinine 39 and 0.78. IMPRESSION: 1. Acute upper gastrointestinal bleed status post EGD by Dr. King 3 days ago that showed a duodenal ulcer. Currently doing well status post a total of 3 units of PRBC transfusion. Last hemoglobin stable at 8.1 g/dL. Remains hemodynamically stable. 2. Exacerbation of chronic obstructive pulmonary disease. 3. Possible pneumonia. 4. Anemia secondary to gastrointestinal bleed. RECOMMENDATION: 1. Continue with IV Protonix 40 mg daily. 2. Monitor CBC on a daily basis. 3. Advance diet as tolerated. 4. Continue broad-spectrum antibiotics. 5. We will follow with you closely. Thank you for this consultation. MMODL / IJN: [id number] /
[2020-03-20 20:44] LABS: Glucose,Whole Blood 229 mg/dL (75-99)
[2020-03-20] MEDS: ARIPiprazole 5 MG TAB PO SCH (21:45)
[2020-03-20] MEDS ORDERED: POTASSIUM CHLORIDE 20 MEQ in WATER FOR INJECTION 1 100ML.BAG IVPB ONE (22:54)
[2020-03-21 05:57] LABS: Anisocytosis Moderate; Basophils % (A) 0 %; Eosinophils % (A) 0 %; HCT 28.6 % (34.0-46.0); HGB 7.9 gm/dL (11.4-16.0); Hypochromasia Marked; Lymphocytes # (A) 0.3 k/uL (1.0-4.8); Lymphocytes % (A) 2 %; MCHC 27.4 g/dL (31.0-37.0); MCV 83.9 fL (80.0-100.0); Mean Platelet Volume 7.7; Microcytosis Slight; Monocytes # (A) 0.4 k/uL (0-1.0); Monocytes % (A) 3 %; Neutrophils # (A) 14.4 k/uL (1.3-7.7); Neutrophils % (A) 95 %; Platelet Count 110 k/uL (150-450); Poikilocytosis Moderate; RBC 3.41 m/uL (3.80-5.40); RDW 21.8 % (11.5-15.5); WBC 15.2 k/uL (3.8-10.6)
[2020-03-21 06:18] LABS: African American GFR (CKD) >90 (>60 ml/min/1.73 sqM); Anion Gap 2 mmol/L; Blood Urea Nitrogen 33 mg/dL (7-17); Calcium 7.7 mg/dL (8.4-10.2); Carbon Dioxide 36 mmol/L (22-30); Chloride 98 mmol/L (98-107); Glucose 208 mg/dL (74-99); Non-African American GFR(CKD) 81 (>60 ml/min/1.73 sqM); Potassium 4.2 mmol/L (3.5-5.1); Sodium 136 mmol/L (137-145)
[2020-03-21] MEDS: LEVOTHYROXINE 100 MCG TAB PO SCH (06:33)
[2020-03-21 06:49] LABS: Glucose,Whole Blood 243 mg/dL (75-99)
[2020-03-21] MEDS: INSULIN ASPART (NovoLOG) 100 UNIT/ML VIAL SQ SCH ×4 (06:50→22:08)
--- NOTE | 2020-03-21 07:01 | XR ---
EXAMINATION TYPE: XR chest 1V portable DATE OF EXAM: 03/21/2020 HISTORY: CHF. REFERENCE: Previous study dated 03/20/2020. FINDINGS: The study is mildly rotated. There is worsening right perihilar airspace disease which has the appearance of atelectasis. There is mild vascular congestion. There are small effusions. Heart si ze upper limits of normal. IMPRESSION: 1. BORDERLINE CARDIOMEGALY. 2. MILD VASCULAR CONGESTION. 3. RIGHT PERIHILAR ATELECTASIS WHICH APPEARS TO HAVE WORSENED FROM THE PREVIOUS STUDY.
[2020-03-21] MEDS: IPRATROPIUM-ALBUTEROL 3 ML NEB INHALATION SCH ×4 (07:58→19:49)
[2020-03-21] MEDS: FORMOTEROL FUMARATE 20 MCG/2 ML NEBU INHALATION SCH ×2 (07:58→19:49)
[2020-03-21] MEDS: BUDESONIDE 1 MG/2 ML NEBU INHALATION SCH ×2 (07:58→19:49)
--- NOTE | 2020-03-21 09:04 | P.PN ---
Subjective Progress Note Date: 03/21/20 Principal diagnosis: This is a 69-year-old followed up with hyponatremia secondary to congestive heart failure. She was admitted with shortness of breath significant edema and congestive heart failure. She has been diuresed. She needed 1 dose Samsca because of significant hyponatremia. With diuresis and Samsca her sodium is improved. She has mild metabolic alkalosis. She is feeling fairly well she is on O2 nasal cannula. Denies any other complaints. Has significant edema. Her echocardiogram on 03/12/2020, shows ejection fraction is 50-55% right ventricular is severely enlarged and there is pulmonary hypertension She is known with hypertension and asthma and COPD type 2 diabetes obesity nephrolithiasis. Objective - Vital Signs Vital signs: Vital Signs Temp 98.2 F 03/21/20 08:00 Pulse 58 L 03/21/20 08:25 Resp 15 03/21/20 08:00 BP 132/51 03/21/20 08:00 Pulse Ox 95 03/21/20 08:00 Intake & Output 03/20/20 03/21/20 03/21/20 18:59 06:59 18:59 Intake Total 750 1090 Output Total 850 575 40 Balance -100 515 -40 Weight 97.9 kg Intake: IV 100 Potassium Chloride 20 meq 100 In Water For Injection 1 100ml.bag @ 50 mls/hr IVPB ONCE ONE Rx#: [id number] Oral 750 990 Output: Urine 850 575 40 Other: Voiding Method Indwelling Catheter Indwelling Catheter Indwelling Catheter # Bowel Movements 1 ABP, PAP, CO, CI - Last Documented Arterial Blood Pressure 116/74 On examination she is awake alert and comfortable on nasal cannula oxygen HEENT exam no JVP neck is supple no facial asymmetry Lungs are clear to auscultation with less than optimal air entry Heart sounds are unremarkable no murmur rub gallop. Normal sinus rhythm Abdomen is soft nontender. Extremity exam was edema 2+ Neurologically awake alert oriented but generalized weakness - Labs CBC & Chem 7: 03/21/20 05:24 03/21/20 05:24 Labs: Abnormal Lab Results - Last 24 Hours (Table) 03/20/20 03/20/20 03/20/20 Range/Units 12:07 17:00 20:43 WBC (3.8-10.6) k/uL RBC (3.80-5.40) m/uL Hgb (11.4-16.0) gm/dL Hct (34.0-46.0) % MCH (25.0-35.0) pg MCHC (31.0-37.0) g/dL RDW (11.5-15.5) % Plt Count (150-450) k/uL Neutrophils # (1.3-7.7) k/uL Lymphocytes # (1.0-4.8) k/uL Sodium (137-145) mmol/L Carbon Dioxide (22-30) mmol/L BUN (7-17) mg/dL Glucose (74-99) mg/dL POC Glucose (mg/dL) 280 H 163 H 229 H (75-99) mg/dL Calcium (8.4-10.2) mg/dL 03/21/20 03/21/20 03/21/20 Range/Units 05:24 05:24 06:47 WBC 15.2 H (3.8-10.6) k/uL RBC 3.41 L (3.80-5.40) m/uL Hgb 7.9 L (11.4-16.0) gm/dL Hct 28.6 L (34.0-46.0) % MCH 23.0 L (25.0-35.0) pg MCHC 27.4 L (31.0-37.0) g/dL RDW 21.8 H (11.5-15.5) % Plt Count 110 L (150-450) k/uL Neutrophils # 14.4 H (1.3-7.7) k/uL Lymphocytes # 0.3 L (1.0-4.8) k/uL Sodium 136 L (137-145) mmol/L Carbon Dioxide 36 H (22-30) mmol/L BUN 33 H (7-17) mg/dL Glucose 208 H (74-99) mg/dL POC Glucose (mg/dL) 243 H (75-99) mg/dL Calcium 7.7 L (8.4-10.2) mg/dL Microbiology - Last 24 Hours (Table) 03/14/20 08:08 Blood Culture - Final Blood No Growth after 144 hours Assessment and Plan Assessment: Impression 1. Hyponatremia secondary to congestive heart failure. Improving with Samsca single-dose dated 03/14/2020 and diuresis, Lasix drip discontinued March 16. 2 Mild degree of metabolic alkalosis secondary to diuresis and steroids. On Diamox completed 3 days. 3. COPD. Stable 4. Diabetes mellitus controlled blood sugar. 5. CHF better radiologically and clinically, but significant edema and an adequate urinary output Recommendation 1. Resume Lasix 20 by mouth twice a day to reduce the edema and see if her congestive heart failure improves 2. Continue Diamox because of the metabolic alkalosis and need for diuresis. 3. Monitor intake and output and labs
[2020-03-21] MEDS: ATORVASTATIN 40 MG TAB PO SCH (09:33)
[2020-03-21] MEDS: METOPROLOL TARTRATE 25 MG TAB PO SCH ×3 (09:33→22:08)
[2020-03-21] MEDS: PANTOPRAZOLE 40 MG TABLET PO SCH ×2 (09:33→22:08)
[2020-03-21] MEDS: FUROSEMIDE 20 MG TAB PO SCH ×2 (09:33→16:44)
[2020-03-21] MEDS: methylPREDNISolone SOD SUCCI 40 MG/ML 1 ML VIAL IV SCH (09:37)
[2020-03-21] MEDS: NYSTATIN 100,000UNIT/GM CREAM 30 GM TUBE TOPICAL SCH ×3 (09:38→22:09)
[2020-03-21] MEDS: ESCITALOPRAM 20 MG TAB PO SCH (09:39)
[2020-03-21] MEDS: ACETAMINOPHEN TAB 325 MG TAB PO PRN ×2 (10:35→17:18)
--- NOTE | 2020-03-21 12:02 | P.PN ---
Subjective Progress Note Date: 03/21/20 Principal diagnosis: Acute hypoxemic respiratory failure The patient is seen today 03/20/2020 in follow-up in the intensive care unit. She was admitted back on 03/11/2020 with acute hypoxemic respiratory failure secondary to COPD and diastolic congestive heart failure. She had also developed lower GI bleed as well. The patient did develop worsening respiratory failure requiring intubation mechanical ventilatory support on March 16 and successfully extubated on March 18. EGD on March 18 showed small blood and alter that was not active. She is now a DO NOT RESUSCITATE/DO NOT INTUBATE CODE STATUS. She is currently resting comfortably in bed. She is maintaining O2 saturations in the 90s on 2 L/m per nasal cannula. No IV fluids. Today's chest x-ray reveals overall improvement in aeration. Masslike density in the right hilum. Unchanged compared to previous. She is status post 3 units packed red blood cells this admission. Current hemoglobin 8.1. White count 16.6. Sodium 137. Potassium 3.7. Creatinine 0.78. The patient is seen today 03/21/2020 in follow-up in the intensive care unit. She is currently awake and alert in no acute distress sitting up in bed. She is maintaining good O2 saturations in the mid 90s on 2 L/m per nasal cannula. She's afebrile. Hemodynamically stable. Sputum and blood cultures revealed no growth. White count 15.2. Hemoglobin 7.9. Platelets 110,000. Sodium 136. Potassium 4.2. Creatinine 0.75. She remains on bronchodilators, IV Solu- Medrol, oral Lasix, IV Diamox. Chest x-ray reveals borderline cardiomegaly. Some mild vascular construction. Some right perihilar atelectasis. Objective - Vital Signs Vital signs: Vital Signs Temp 98.2 F 03/21/20 08:00 Pulse 68 03/21/20 11:46 Resp 20 03/21/20 09:00 BP 124/59 03/21/20 09:00 Pulse Ox 98 03/21/20 09:00 Intake & Output 03/20/20 03/21/20 03/21/20 18:59 06:59 18:59 Intake Total 750 1090 250 Output Total 850 575 120 Balance -100 515 130 Weight 97.9 kg Intake: IV 100 Potassium Chloride 20 meq 100 In Water For Injection 1 100ml.bag @ 50 mls/hr IVPB ONCE ONE Rx#: [id number] Oral 750 990 250 Output: Urine 850 575 120 Other: Voiding Method Indwelling Catheter Indwelling Catheter Indwelling Catheter # Bowel Movements 1 ABP, PAP, CO, CI - Last Documented Arterial Blood Pressure 116/74 - Exam GENERAL EXAM: Alert, pleasant 69-year-old female patient, on 2 L nasal cannula, comfortable in no apparent distress. HEAD: Normocephalic. EYES: Normal reaction of pupils, equal size. NOSE: Clear with pink turbinates. THROAT: No erythema or exudates. NECK: No masses, no JVD. CHEST: No chest wall deformity. LUNGS: Equal air entry with few scattered rhonchi. CVS: S1 and S2 normal with no audible murmur, regular rhythm. ABDOMEN: No hepatosplenomegaly, normal bowel sounds, no guarding or rigidity. SPINE: No scoliosis or deformity SKIN: No rashes CENTRAL NERVOUS SYSTEM: No focal deficits, tone is normal in all 4 extremities. EXTREMITIES: There is no peripheral edema. No clubbing, no cyanosis. Peripheral pulses are intact. - Labs CBC & Chem 7: 03/21/20 05:24 03/21/20 05:24 Labs: Abnormal Lab Results - Last 24 Hours (Table) 03/20/20 03/20/20 03/20/20 Range/Units 12:07 17:00 20:43 WBC (3.8-10.6) k/uL RBC (3.80-5.40) m/uL Hgb (11.4-16.0) gm/dL Hct (34.0-46.0) % MCH (25.0-35.0) pg MCHC (31.0-37.0) g/dL RDW (11.5-15.5) % Plt Count (150-450) k/uL Neutrophils # (1.3-7.7) k/uL Lymphocytes # (1.0-4.8) k/uL Sodium (137-145) mmol/L Carbon Dioxide (22-30) mmol/L BUN (7-17) mg/dL Glucose (74-99) mg/dL POC Glucose (mg/dL) 280 H 163 H 229 H (75-99) mg/dL Calcium (8.4-10.2) mg/dL 03/21/20 03/21/20 03/21/20 Range/Units 05:24 05:24 06:47 WBC 15.2 H (3.8-10.6) k/uL RBC 3.41 L (3.80-5.40) m/uL Hgb 7.9 L (11.4-16.0) gm/dL Hct 28.6 L (34.0-46.0) % MCH 23.0 L (25.0-35.0) pg MCHC 27.4 L (31.0-37.0) g/dL RDW 21.8 H (11.5-15.5) % Plt Count 110 L (150-450) k/uL Neutrophils # 14.4 H (1.3-7.7) k/uL Lymphocytes # 0.3 L (1.0-4.8) k/uL Sodium 136 L (137-145) mmol/L Carbon Dioxide 36 H (22-30) mmol/L BUN 33 H (7-17) mg/dL Glucose 208 H (74-99) mg/dL POC Glucose (mg/dL) 243 H (75-99) mg/dL Calcium 7.7 L (8.4-10.2) mg/dL Microbiology - Last 24 Hours (Table) 03/14/20 08:08 Blood Culture - Final Blood No Growth after 144 hours Assessment and Plan Assessment: #1. Acute on chronic hypoxic and hypercapnic respiratory failure, multifactorial secondary to underlying COPD, COPD exacerbation and acute on chronic diastolic congestive heart failure. She did require mechanical ventil atory support from March 16 to 03/18/2020. Currently on 2 L nasal cannula. #2. Acute blood loss anemia related to lower GI bleeding, patient started passing maroon-colored stools on 03/14/2020, requiring transfusion with 3 units of packed red blood cells. Hemoglobin is currently 8.1 this morning. She is status post EGD with no active bleeding noted on 03/18/2020. #3. Acute exacerbation of COPD, in the patient with baseline FEV1 of 42% of predicted and diffusion capacity of 45% of predicted #4. Chronic cor pulmonale, and worsening right-sided congestive heart failure #5. Hypothyroidism #6. Severe pulmonary hypertension, moderate tricuspid regurgitation, and mild mitral regurgitation #7. Degenerative joint disease #8. Type 2 diabetes mellitus #9. Former smoker #10. History of nephrolithiasis #11. Hyponatremia, related to hypervolemia of acute exacerbation of CHF Plan: The patient was seen and evaluated by Dr. Arora Chest x-ray and labs reviewed To be transferred out of the ICU Continue the current treatment plan We'll continue to follow DO NOT RESUSCITATE/DO NOT INTUBATE CODE STATUS I, the cosigning physician, performed a history & physical examination of the patient. Lungs sounds with bilateral scattered rhonchi. Maintaining good O2 saturations in the 90s on 2 L/m per nasal cannula. I discussed the assessment and plan of care with my nurse practitioner, Melany Rodriguez. I attest to the above note as dictated by her.
[2020-03-21 12:05] LABS: Glucose,Whole Blood 260 mg/dL (75-99)
--- NOTE | 2020-03-21 12:38 | P.PN ---
Subjective Progress Note Date: 03/21/20 Patient is lethargic but easily arousable. She is on 2 L of oxygen. She denies shortness of breath but her lungs sounds congested across the room. No change compared to yesterday. Objective - Vital Signs Vital signs: Vital Signs Temp 98.2 F 03/21/20 08:00 Pulse 65 03/21/20 11:57 Resp 20 03/21/20 09:00 BP 124/59 03/21/20 09:00 Pulse Ox 98 03/21/20 09:00 Intake & Output 03/20/20 03/21/20 03/21/20 18:59 06:59 18:59 Intake Total 750 1090 250 Output Total 850 575 120 Balance -100 515 130 Weight 97.9 kg Intake: IV 100 Potassium Chloride 20 meq 100 In Water For Injection 1 100ml.bag @ 50 mls/hr IVPB ONCE ONE Rx#: [id number] Oral 750 990 250 Output: Urine 850 575 120 Other: Voiding Method Indwelling Catheter Indwelling Catheter Indwelling Catheter # Bowel Movements 1 ABP, PAP, CO, CI - Last Documented Arterial Blood Pressure 116/74 - Exam General: The patient is awake and alert, in no distress Eye: there is normal conjunctiva bilaterally. Neck: The neck is supple, there is no JVD. Cardiovascular: Normal S1-S2, no S3-S4, no murmurs. Respiratory: Lungs with diffuse rales and rhonchi all over the chest Gastrointestinal: Abdomen is soft, nontender Musculoskeletal: There is +1 pedal edema. Skin: Skin is warm and dry - Labs CBC & Chem 7: 03/21/20 05:24 03/21/20 05:24 Labs: Abnormal Lab Results - Last 24 Hours (Table) 03/20/20 03/20/20 03/21/20 Range/Units 17:00 20:43 05:24 WBC (3.8-10.6) k/uL RBC (3.80-5.40) m/uL Hgb (11.4-16.0) gm/dL Hct (34.0-46.0) % MCH (25.0-35.0) pg MCHC (31.0-37.0) g/dL RDW (11.5-15.5) % Plt Count (150-450) k/uL Neutrophils # (1.3-7.7) k/uL Lymphocytes # (1.0-4.8) k/uL Sodium 136 L (137-145) mmol/L Carbon Dioxide 36 H (22-30) mmol/L BUN 33 H (7-17) mg/dL Glucose 208 H (74-99) mg/dL POC Glucose (mg/dL) 163 H 229 H (75-99) mg/dL Calcium 7.7 L (8.4-10.2) mg/dL 03/21/20 03/21/20 03/21/20 Range/Units 05:24 06:47 12:03 WBC 15.2 H (3.8-10.6) k/uL RBC 3.41 L (3.80-5.40) m/uL Hgb 7.9 L (11.4-16.0) gm/dL Hct 28.6 L (34.0-46.0) % MCH 23.0 L (25.0-35.0) pg MCHC 27.4 L (31.0-37.0) g/dL RDW 21.8 H (11.5-15.5) % Plt Count 110 L (150-450) k/uL Neutrophils # 14.4 H (1.3-7.7) k/uL Lymphocytes # 0.3 L (1.0-4.8) k/uL Sodium (137-145) mmol/L Carbon Dioxide (22-30) mmol/L BUN (7-17) mg/dL Glucose (74-99) mg/dL POC Glucose (mg/dL) 243 H 260 H (75-99) mg/dL Calcium (8.4-10.2) mg/dL Microbiology - Last 24 Hours (Table) 03/14/20 08:08 Blood Culture - Final Blood No Growth after 144 hours Assessment and Plan Assessment: The patient is a 69-year-old female with a PMH of type II DM, hypertension, hyperlipidemia, hypothyroidism, severe COPD, diastolic CHF, and morbid obesity who presented to the ED with shortness of breath along with lower extremity swelling. The patient was admitted for hypoxic and hypercapnic respiratory failure with CHF and COPD exacerbation with fluid overload. The patient was placed on IV Lasix with IV steroids and bronchodilators. The patient had episode of GI bleeding on 03/15 with a drop from 8.5-5.5 gm/dL. The patient was given 2 units of PRBCs and GI recommended continued monitoring. Hemoglobin dropped again to 6.7 on 03/17 requiring 1 unit of blood transfusion. The patient's hypercapnia worsened on 03/16 to a pCO2 of 85. Her mental status also deteriorated and the patient was subsequently intubated by the critical power technician. She was seen and evaluated in the medical ICU on 03/16. The patient was sedated and minimally arousable. Assessment and Plan Plan: Acute hypoxic and hypercapnic respiratory failure in setting of acute COPD and diastolic CHF exacerbations -Status post endotracheal intubation on 03/16 with successful intubation on 03/19 -IV steroid managed by ICU team -Defer management to dress marker -Continue bronchodilators Acute diastolic heart failure exacerbation with severe pulmonary hypertension -Diuresis managed by nephrology Acute blood loss anemia secondary to GI bleeding -Status post 3 units of PRBCs -Continue to monitor CBC -Protonix 40 twice a day -Status post EGD on 03/18 showing nonbleeding duodenal ulcer with mild gastritis and no active bleeding Altered mental status, likely toxo metabolic encephalopathy multifactorial in setting of hypercapnia with delirium on presentation Hyperkalemia, resolved -Holding home spironolactone Hyponatremia -Improved Type II DM -Lispro insulin sliding scale blood glucose monitoring Hypothyroidism -Continue with home Synthroid dose DVT prophylaxis -With SCDs CODE STATUS -DNR/DNI Transfer out of ICU, PT/OT evaluation, discharge planning
--- NOTE | 2020-03-21 15:27 | PN ---
PROGRESS NOTE DATE OF SERVICE: 03/21/2020 Patient is a 69-year-old pleasant white female admitted to the hospital with upper GI bleed and exacerbation of COPD. She is doing better. No abdominal pain. No bleeding. Had 2 small brown bowel movements this morning. PHYSICAL EXAM: Appears comfortable in no apparent distress. Vital signs stable. Blood pressure 130/74. Pulse is 100. Temperature 98.7. HEENT exam unremarkable. Conjunctivae pink. Sclerae anicteric. Oral cavity no lesions. NECK: No JVD or lymph node enlargement. CHEST: Clear to auscultation. Bilateral wheezing. EXTREMITIES: No pedal edema. ABDOMEN: Soft. Bowel sounds are positive. NEUROLOGIC: Alert and oriented times three. No focal deficits. LABS: WBC 10.7, hemoglobin 10.9. Platelets are 110. IMPRESSION: 1. Acute upper gastrointestinal bleed status post EGD done 4 days ago with duodenal bulbar ulcer. Patient is hemodynamically stable. No further episodes of bleeding. Remains on Protonix 40 mg twice daily. Last hemoglobin 7.2 g/dL. 2. Exacerbation of chronic obstructive pulmonary disease. 3. Status post acute respiratory failure, extubated 3 days ago. RECOMMENDATIONS: 1. Continue with Protonix 40 mg twice daily. 2. Further management by dust collector treater. 3. Monitor CBC on a daily basis. 4. We will follow with you closely. Thank you for this consultation. MMODL / IJN: [id number] /
[2020-03-21] MEDS ORDERED: FUROSEMIDE 40 MG TAB PO SCH (16:00)
[2020-03-21 16:22] LABS: Glucose,Whole Blood 347 mg/dL (75-99)
[2020-03-21 16:22] LABS: Glucose,Whole Blood 317 mg/dL (75-99)
[2020-03-21] MEDS ORDERED: INSULIN ASPART (NovoLOG) 100 UNIT/ML VIAL SQ ONE (16:59)
[2020-03-21 21:42] LABS: Glucose,Whole Blood 290 mg/dL (75-99)
[2020-03-21] MEDS: ARIPiprazole 5 MG TAB PO SCH (22:09)
[2020-03-22 05:07] LABS: Anisocytosis Moderate; Basophils % (A) 0 %; Eosinophils # (A) 0.1 k/uL (0-0.7); Eosinophils % (A) 1 %; HCT 28.1 % (34.0-46.0); HGB 7.8 gm/dL (11.4-16.0); Hypochromasia Marked; Lymphocytes # (A) 0.7 k/uL (1.0-4.8); Lymphocytes % (A) 5 %; MCHC 27.7 g/dL (31.0-37.0); MCV 82.9 fL (80.0-100.0); Mean Platelet Volume 9.6; Microcytosis Slight; Monocytes # (A) 0.9 k/uL (0-1.0); Monocytes % (A) 6 %; Neutrophils # (A) 11.6 k/uL (1.3-7.7); Neutrophils % (A) 86 %; Platelet Count 116 k/uL (150-450); Poikilocytosis Moderate; RBC 3.38 m/uL (3.80-5.40); RDW 21.5 % (11.5-15.5); WBC 13.6 k/uL (3.8-10.6)
[2020-03-22 05:18] LABS: ALT 101 U/L (4-34); AST 63 U/L (14-36); African American GFR (CKD) >90 (>60 ml/min/1.73 sqM); Albumin 2.3 g/dL (3.5-5.0); Alkaline Phosphatase 117 U/L (38-126); Anion Gap 1 mmol/L; Blood Urea Nitrogen 28 mg/dL (7-17); Calcium 7.8 mg/dL (8.4-10.2); Carbon Dioxide 36 mmol/L (22-30); Chloride 97 mmol/L (98-107); Glucose 98 mg/dL (74-99); Non-African American GFR(CKD) 86 (>60 ml/min/1.73 sqM); Potassium 3.6 mmol/L (3.5-5.1); Sodium 134 mmol/L (137-145); Total Bilirubin 0.4 mg/dL (0.2-1.3); Total Protein 4.3 g/dL (6.3-8.2)
[2020-03-22] MEDS: LEVOTHYROXINE 100 MCG TAB PO SCH (06:54)
[2020-03-22] MEDS: INSULIN ASPART (NovoLOG) 100 UNIT/ML VIAL SQ SCH ×4 (06:54→20:38)
[2020-03-22 06:55] LABS: Glucose,Whole Blood 140 mg/dL (75-99)
[2020-03-22] MEDS: BUDESONIDE 1 MG/2 ML NEBU INHALATION SCH ×2 (07:22→19:50)
[2020-03-22] MEDS: FORMOTEROL FUMARATE 20 MCG/2 ML NEBU INHALATION SCH ×2 (07:22→19:50)
[2020-03-22] MEDS: IPRATROPIUM-ALBUTEROL 3 ML NEB INHALATION SCH ×4 (07:22→19:51)
[2020-03-22] MEDS: METOPROLOL TARTRATE 25 MG TAB PO SCH ×3 (08:38→21:39)
[2020-03-22] MEDS: predniSONE 20 MG TAB PO SCH (08:39)
[2020-03-22] MEDS: ATORVASTATIN 40 MG TAB PO SCH (08:39)
[2020-03-22] MEDS: PANTOPRAZOLE 40 MG TABLET PO SCH ×2 (08:39→21:39)
[2020-03-22] MEDS: FUROSEMIDE 20 MG TAB PO SCH (08:39)
[2020-03-22] MEDS: ESCITALOPRAM 20 MG TAB PO SCH (08:39)
[2020-03-22] MEDS: NYSTATIN 100,000UNIT/GM CREAM 30 GM TUBE TOPICAL SCH ×3 (08:49→21:42)
--- NOTE | 2020-03-22 09:08 | P.PN ---
Subjective Progress Note Date: 03/22/20 Patient is alert and awake this morning. Her mentation is significantly better compared to yesterday. She denies any shortness of breath. No evidence of GI bleed and patient had the problems to last night. Her lungs sound significantly better compared to yesterday. No acute events overnight reported by nursing staff. Objective - Vital Signs Vital signs: Vital Signs Temp 98.7 F 03/22/20 06:59 Pulse 76 03/22/20 07:41 Resp 21 03/22/20 06:59 BP 124/54 03/22/20 06:59 Pulse Ox 99 03/22/20 06:59 Intake & Output 03/21/20 03/22/20 03/22/20 18:59 06:59 18:59 Intake Total 490 500 Output Total 470 750 Balance 20 -250 Weight 99.4 kg Intake: Oral 490 500 Output: Urine 470 750 Other: Voiding Method Indwelling Catheter Indwelling Catheter ABP, PAP, CO, CI - Last Documented Arterial Blood Pressure 116/74 - Exam General: The patient is awake and alert, in no distress Eye: there is normal conjunctiva bilaterally. Neck: The neck is supple, there is no JVD. Cardiovascular: Normal S1-S2, no S3-S4, no murmurs. Respiratory: Lungs with diffuse rales and rhonchi all over the chest Gastrointestinal: Abdomen is soft, nontender Musculoskeletal: There is 2 pedal edema. Skin: Skin is warm and dry - Labs CBC & Chem 7: 03/22/20 04:46 03/22/20 04:46 Labs: Abnormal Lab Results - Last 24 Hours (Table) 03/21/20 03/21/20 03/21/20 Range/Units 12:03 16:19 16:21 WBC (3.8-10.6) k/uL RBC (3.80-5.40) m/uL Hgb (11.4-16.0) gm/dL Hct (34.0-46.0) % MCH (25.0-35.0) pg MCHC (31.0-37.0) g/dL RDW (11.5-15.5) % Plt Count (150-450) k/uL Neutrophils # (1.3-7.7) k/uL Lymphocytes # (1.0-4.8) k/uL Sodium (137-145) mmol/L Chloride (98-107) mmol/L Carbon Dioxide (22-30) mmol/L BUN (7-17) mg/dL POC Glucose (mg/dL) 260 H 347 H 317 H (75-99) mg/dL Calcium (8.4-10.2) mg/dL AST (14-36) U/L ALT (4-34) U/L Total Protein (6.3-8.2) g/dL Albumin (3.5-5.0) g/dL 03/21/20 03/22/20 03/22/20 Range/Units 21:41 04:46 04:46 WBC 13.6 H (3.8-10.6) k/uL RBC 3.38 L (3.80-5.40) m/uL Hgb 7.8 L (11.4-16.0) gm/dL Hct 28.1 L (34.0-46.0) % MCH 23.0 L (25.0-35.0) pg MCHC 27.7 L (31.0-37.0) g/dL RDW 21.5 H (11.5-15.5) % Plt Count 116 L (150-450) k/uL Neutrophils # 11.6 H (1.3-7.7) k/uL Lymphocytes # 0.7 L (1.0-4.8) k/uL Sodium 134 L (137-145) mmol/L Chloride 97 L (98-107) mmol/L Carbon Dioxide 36 H (22-30) mmol/L BUN 28 H (7-17) mg/dL POC Glucose (mg/dL) 290 H (75-99) mg/dL Calcium 7.8 L (8.4-10.2) mg/dL AST 63 H (14-36) U/L ALT 101 H (4-34) U/L Total Protein 4.3 L (6.3-8.2) g/dL Albumin 2.3 L (3.5-5.0) g/dL 03/22/20 Range/Units 06:53 WBC (3.8-10.6) k/uL RBC (3.80-5.40) m/uL Hgb (11.4-16.0) gm/dL Hct (34.0-46.0) % MCH (25.0-35.0) pg MCHC (31.0-37.0) g/dL RDW (11.5-15.5) % Plt Count (150-450) k/uL Neutrophils # (1.3-7.7) k/uL Lymphocytes # (1.0-4.8) k/uL Sodium (137-145) mmol/L Chloride (98-107) mmol/L Carbon Dioxide (22-30) mmol/L BUN (7-17) mg/dL POC Glucose (mg/dL) 140 H (75-99) mg/dL Calcium (8.4-10.2) mg/dL AST (14-36) U/L ALT (4-34) U/L Total Protein (6.3-8.2) g/dL Albumin (3.5-5.0) g/dL Assessment and Plan Assessment: The patient is a 69-year-old female with a PMH of type II DM, hypertension, hyperlipidemia, hypothyroidism, severe COPD, diastolic CHF, and morbid obesity who presented to the ED with shortness of breath along with lower extremity swelling. The patient was admitted for hypoxic and hypercapnic respiratory failure with CHF and COPD exacerbation with fluid overload. The patient was placed on IV Lasix with IV steroids and bronchodilators. The patient had episode of GI bleeding on 03/15 with a drop from 8.5-5.5 gm/dL. The patient was given 2 units of PRBCs and GI recommended continued monitoring. Hemoglobin dropped again to 6.7 on 03/17 requiring 1 unit of blood transfusion. The patient's hypercapnia worsened on 03/16 to a pCO2 of 85. Her mental status also deteriorated and the patient was subsequently intubated by the circus rider. She was seen and evaluated in the medical ICU on 03/16. The patient was sedated and minimally arousable. Assessment and Plan Plan: Acute hypoxic and hypercapnic respiratory failure in setting of acute COPD and diastolic CHF exacerbations -Status post endotracheal intubation on 03/16 with successful intubation on 03/19 -IV steroid transitioned to oral prednisone -Continue bronchodilators Acute diastolic heart failure exacerbation with severe pulmonary hypertension -Resume IV diuresis with IV Lasix for another day or 2. Monitor I's and O's closely. Acute blood loss anemia secondary to GI bleeding -Status post 3 units of PRBCs -Continue to monitor CBC -Protonix 40 twice a day -Status post EGD on 03/18 showing nonbleeding duodenal ulcer with mild gastritis and no active bleeding Altered mental status, likely toxo metabolic encephalopathy multifactorial in setting of hypercapnia with delirium on presentation, now resolved Hyperkalemia, resolved -Holding home spironolactone Hyponatremia -Improved Type II DM -Lispro insulin sliding scale blood glucose monitoring Hypothyroidism -Continue with home Synthroid dose DVT prophylaxis -With SCDs CODE STATUS -DNR/DNI Transfer out of ICU, PT/OT evaluation, discharge planning to [facility] in the next day or 2
[2020-03-22] MEDS: FUROSEMIDE 10 MG/ML 4 ML VIAL IV SCH ×2 (09:57→21:39)
[2020-03-22 12:03] LABS: Glucose,Whole Blood 186 mg/dL (75-99)
--- NOTE | 2020-03-22 13:26 | P.PN ---
Subjective Progress Note Date: 03/22/20 On 03/22/2020 and seeing this patient for a follow-up. This patient remains in the intensive care unit and she is about to get transferred out to cardiac telemetry unit. The patient is doing well. No specific complaints. Continues to have significant amount of edema in the lower extremities bilaterally. She has developed some metabolic alkalosis secondary to aggressive diuresis and the patient has a placed on Diamox. For now, the patient's chest x-ray still showing bilateral pleural effusions. Echocardiac Jaziel showed essentially a right-sided heart failure with an ejection fraction of 50-55%, right-sided was quite dilated with a pulmonary artery pressure of 76. The patient is not having any major respiratory difficulties. No cough or sputum production. No chest tightness. No wheezing. She has a congested cough that she is unable to bring up any significant sputum no nausea. No vomiting. Note that mentation. She is weak. She is a DNR/DNI CODE STATUS. No evidence of any GI bleed. Hemoglobin is stable. EGD from 03/18/2020 showed no active bleeding. Objective - Vital Signs Vital signs: Vital Signs Temp 98.7 F 03/22/20 06:59 Pulse 68 03/22/20 11:19 Resp 21 03/22/20 06:59 BP 124/54 03/22/20 06:59 Pulse Ox 99 03/22/20 06:59 Intake & Output 03/21/20 03/22/20 03/22/20 18:59 06:59 18:59 Intake Total 490 500 Output Total 470 750 Balance 20 -250 Weight 99.4 kg Intake: Oral 490 500 Output: Urine 470 750 Other: Voiding Method Indwelling Catheter Indwelling Catheter Indwelling Catheter ABP, PAP, CO, CI - Last Documented Arterial Blood Pressure 116/74 - Exam GENERAL EXAM: Alert, pleasant 69-year-old female patient, on 2 L nasal cannula, comfortable in no apparent distress. HEAD:Head exam was generally normal. There was no scleral icterus or corneal arcus. Mucous membranes were moist. EYES: Normal reaction of pupils, equal size. NOSE: Clear with pink turbinates. THROAT: No erythema or exudates. NECK: No masses, no JVD. CHEST: No chest wall deformity. LUNGS: Equal air entry with few scattered rhonchi. CVS: There is normal S1 and there is accentuation of the second heart sound normal with no audible murmur, regular rhythm. ABDOMEN: No hepatosplenomegaly, normal bowel sounds, no guarding or rigidity. The patient is abdominal edema. No direct tenderness but no rebound tenderness. No guarding. SPINE: No scoliosis or deformity SKIN: No rashes CENTRAL NERVOUS SYSTEM: No focal deficits, tone is normal in all 4 extremities. EXTREMITIES: There And the patient has significant edema in all 4 extremities and she has diffuse anasarca with some abdominal edema.. No clubbing, no cyanosis. Peripheral pulses are intact. - Labs CBC & Chem 7: 03/22/20 04:46 03/22/20 04:46 Labs: Abnormal Lab Results - Last 24 Hours (Table) 03/21/20 03/21/20 03/21/20 Range/Units 16:19 16:21 21:41 WBC (3.8-10.6) k/uL RBC (3.80-5.40) m/uL Hgb (11.4-16.0) gm/dL Hct (34.0-46.0) % MCH (25.0-35.0) pg MCHC (31.0-37.0) g/dL RDW (11.5-15.5) % Plt Count (150-450) k/uL Neutrophils # (1.3-7.7) k/uL Lymphocytes # (1.0-4.8) k/uL Sodium (137-145) mmol/L Chloride (98-107) mmol/L Carbon Dioxide (22-30) mmol/L BUN (7-17) mg/dL POC Glucose (mg/dL) 347 H 317 H 290 H (75-99) mg/dL Calcium (8.4-10.2) mg/dL AST (14-36) U/L ALT (4-34) U/L Total Protein (6.3-8.2) g/dL Albumin (3.5-5.0) g/dL 03/22/20 03/22/20 03/22/20 Range/Units 04:46 04:46 06:53 WBC 13.6 H (3.8-10.6) k/uL RBC 3.38 L (3.80-5.40) m/uL Hgb 7.8 L (11.4-16.0) gm/dL Hct 28.1 L (34.0-46.0) % MCH 23.0 L (25.0-35.0) pg MCHC 27.7 L (31.0-37.0) g/dL RDW 21.5 H (11.5-15.5) % Plt Count 116 L (150-450) k/uL Neutrophils # 11.6 H (1.3-7.7) k/uL Lymphocytes # 0.7 L (1.0-4.8) k/uL Sodium 134 L (137-145) mmol/L Chloride 97 L (98-107) mmol/L Carbon Dioxide 36 H (22-30) mmol/L BUN 28 H (7-17) mg/dL POC Glucose (mg/dL) 140 H (75-99) mg/dL Calcium 7.8 L (8.4-10.2) mg/dL AST 63 H (14-36) U/L ALT 101 H (4-34) U/L Total Protein 4.3 L (6.3-8.2) g/dL Albumin 2.3 L (3.5-5.0) g/dL 03/22/20 Range/Units 12:02 WBC (3.8-10.6) k/uL RBC (3.80-5.40) m/uL Hgb (11.4-16.0) gm/dL Hct (34.0-46.0) % MCH (25.0-35.0) pg MCHC (31.0-37.0) g/dL RDW (11.5-15.5) % Plt Count (150-450) k/uL Neutrophils # (1.3-7.7) k/uL Lymphocytes # (1.0-4.8) k/uL Sodium (137-145) mmol/L Chloride (98-107) mmol/L Carbon Dioxide (22-30) mmol/L BUN (7-17) mg/dL POC Glucose (mg/dL) 186 H (75-99) mg/dL Calcium (8.4-10.2) mg/dL AST (14-36) U/L ALT (4-34) U/L Total Protein (6.3-8.2) g/dL Albumin (3.5-5.0) g/dL Assessment and Plan Plan: #1. Acute on chronic hypoxic and hypercapnic respiratory failure, multifactorial secondary to underlying COPD, COPD exacerbation and acute on chronic diastolic congestive heart failure. She did require mechanical ventilatory support from March 16 to 03/18/2020. Currently on 2 L nasal cannula. #2. Acute blood loss anemia related to lower GI bleeding, patient started passing maroon-colored stools on 03/14/2020, requiring transfusion with 3 units of packed red blood cells. Hemoglobin is currently 7.9 this morning. She is status post EGD with no active bleeding noted on 03/18/2020. #3. Acute exacerbation of COPD, in the patient with baseline FEV1 of 42% of predicted and diffusion capacity of 45% of predicted, and acute COPD exacerbation improving #4. Chronic cor pulmonale, and worsening right-sided congestive heart failure, and the patient has severe pulmonary hypertension with a PA pressure of 76 #5. Hypothyroidism #6. Severe pulmonary hypertension, moderate tricuspid regurgitation, and mild mitral regurgitation #7. Degenerative joint disease #8. Type 2 diabetes mellitus #9. Former smoker #10. History of nephrolithiasis #11. Hyponatremia, related to hypervolemia and this has recovered #12 metabolic alkalosis secondary to aggressive diuresis Plan IV Lasix to be continued until the 40 mg every 12 hours Continue Diamox Optimize volume status Prednisone burst taper She can be transferred to telemetry unit.
--- NOTE | 2020-03-22 16:31 | PN ---
PROGRESS NOTE Patient is seen for followup for hyponatremia and hypervolemia. She is currently off of Lasix drip. Sodium has improved. It is staying at about 134-136 mEq/L. The patient is maintained on IV Lasix, which was restarted today. She denies any significant complaints. On examination, blood pressure was 124/54, heart rate 60 per minute. She is afebrile. EXAMINATION OF THE HEART: S1 and S2. EXAMINATION OF LUNGS: Decreased breath sounds at bases. ABDOMEN: Soft, non-tender, obese. Examination of lower extremities shows no significant edema. SCALLOP CUTTER MACHINE exam is grossly intact. Labs show hemoglobin 7.8, sodium 134, potassium 3.6, chloride 37, BUN 28, creatinine 0.72. ASSESSMENT: 1. Acute kidney injury, cardiorenal, currently resolved. 2. Hyponatremia, mostly hypervolemic. Maintain patient on fluid restriction. Agree with IV Lasix. Repeat labs in a.m. Maintain good oral protein intake. 3. Anemia; hemoglobin staying at about 7.9-8 g/dL. Patient had acute GI bleed. She is status post EGD on March 18 showing nonbleeding duodenal ulcer with mild gastritis and no active bleeding. Hemoglobin has been stable. No active bleeding currently. 4. Hyperkalemia, currently resolved. PLAN: Continue with IV Lasix. Add fluid restriction. Repeat labs in a.m. MMODL / IJN: [id number] /
[2020-03-22 16:52] LABS: Glucose,Whole Blood 253 mg/dL (75-99)
[2020-03-22 18:00] LABS: Glucose,Whole Blood 282 mg/dL (75-99)
[2020-03-22] MEDS ORDERED: POTASSIUM CHLORIDE ER 20 MEQ TAB.ER PO SCH (20:00)
--- NOTE | 2020-03-22 20:23 | PN ---
PROGRESS NOTE DATE OF DICTATION: 03/22/2020 This patient is a 69-year-old white female who remains in the intensive care unit with exacerbation of COPD and congestive heart failure. She is gradually improving. GI bleed has resolved. On a regular diet. No further bleeding. No abdominal pain. She had one brown bowel movement last night. PHYSICAL EXAMINATION: She appears comfortable. VITAL SIGNS: Stable. Blood pressure is 121/49, pulse rate 66, temperature 97.9. HEENT examination unremarkable. Conjunctivae pink. Sclerae anicteric. NECK: No JVD. CHEST: Decreased breath sounds bilaterally. Expiratory wheezes noted. ABDOMEN: Soft. Bowel sounds are positive. EXTREMITIES: No pedal edema. SKIN: No rashes. NEUROLOGIC: Alert and oriented x3. No focal deficits. LABS: WBC 13.6, hemoglobin 7.8, platelets 116. BUN and creatinine are 28 and 0.72, respectively. AST and ALT are 63 and 101, respectively. T-bilirubin and alkaline phosphatase are normal. IMPRESSION: 1. Acute upper gastrointestinal bleed, status post EGD a week ago that revealed a large duodenal bulbar ulcer. Patient is status post 3 units of blood transfusion. Hemoglobin stable. No further bleeding. 2. Exacerbation of chronic obstructive pulmonary disease/pneumonia, on antibiotics. 3. Acute kidney injury, resolved. 4. Electrolyte abnormalities. RECOMMENDATIONS: 1. Continue with Protonix 40 mg twice daily. 2. Monitor CBC on a daily basis. 3. Continue symptomatic and supportive care in the ICU. 4. Will follow with you closely. Thank you for this consultation. MMODL / IJN: [id number] /
[2020-03-22 20:28] LABS: Glucose,Whole Blood 264 mg/dL (75-99)
[2020-03-22] MEDS: ARIPiprazole 5 MG TAB PO SCH (21:42)
[2020-03-23 05:11] LABS: ALT 84 U/L (4-34); AST 39 U/L (14-36); African American GFR (CKD) >90 (>60 ml/min/1.73 sqM); Albumin 2.1 g/dL (3.5-5.0); Alkaline Phosphatase 101 U/L (38-126); Anion Gap 2 mmol/L; Blood Urea Nitrogen 24 mg/dL (7-17); Calcium 7.7 mg/dL (8.4-10.2); Carbon Dioxide 35 mmol/L (22-30); Chloride 99 mmol/L (98-107); Glucose 99 mg/dL (74-99); Magnesium 1.7 mg/dL (1.6-2.3); Non-African American GFR(CKD) >90 (>60 ml/min/1.73 sqM); Potassium 3.2 mmol/L (3.5-5.1); Sodium 136 mmol/L (137-145); Total Bilirubin 0.4 mg/dL (0.2-1.3)
[2020-03-23] MEDS: LEVOTHYROXINE 100 MCG TAB PO SCH (06:48)
[2020-03-23] MEDS: POTASSIUM CHLORIDE ER 20 MEQ TAB.ER PO SCH ×2 (06:48→08:40)
[2020-03-23 06:49] LABS: Glucose,Whole Blood 116 mg/dL (75-99)
[2020-03-23] MEDS: INSULIN ASPART (NovoLOG) 100 UNIT/ML VIAL SQ SCH ×4 (06:53→21:42)
[2020-03-23] MEDS: ATORVASTATIN 40 MG TAB PO SCH (08:40)
[2020-03-23] MEDS: PANTOPRAZOLE 40 MG TABLET PO SCH ×2 (08:40→21:06)
[2020-03-23] MEDS: METOPROLOL TARTRATE 25 MG TAB PO SCH ×3 (08:40→21:43)
[2020-03-23] MEDS: predniSONE 20 MG TAB PO SCH (08:40)
[2020-03-23] MEDS: FUROSEMIDE 10 MG/ML 4 ML VIAL IV SCH ×3 (08:41→23:02)
[2020-03-23] MEDS: NYSTATIN 100,000UNIT/GM CREAM 30 GM TUBE TOPICAL SCH ×3 (08:41→23:02)
[2020-03-23] MEDS: ESCITALOPRAM 20 MG TAB PO SCH (08:41)
[2020-03-23] MEDS: IPRATROPIUM-ALBUTEROL 3 ML NEB INHALATION SCH ×4 (08:52→19:45)
[2020-03-23] MEDS: FORMOTEROL FUMARATE 20 MCG/2 ML NEBU INHALATION SCH ×2 (08:52→19:45)
[2020-03-23] MEDS: BUDESONIDE 1 MG/2 ML NEBU INHALATION SCH ×2 (08:52→19:45)
[2020-03-23 09:01] LABS: Appearance,Urine Cloudy (Clear); Bacteria,Urine Many /hpf; Bilirubin,Urine Negative (Negative); Blood,Urine Trace (Negative); Color,Urine Yellow; Glucose,Urine (UA) Negative (Negative); Ketones,Urine Negative (Negative); Leukocyte Esterase,Urine Large (Negative); Mucus,Urine Rare /hpf; Nitrite,Urine Negative (Negative); Protein,Urine Trace (Negative); RBC,Urine 4 /hpf (0-5); Specific Gravity,Urine 1.014 (1.001-1.035); Squamous Epithelial Cell,Urine 2 /hpf (0-4); Urobilinogen,Urine <2.0 mg/dL (<2.0); WBC,Urine >182 /hpf (0-5)
--- NOTE | 2020-03-23 11:27 | CDI ---
Documentation Clarification Form Date: 03/23/2020 11:04:46 AM From: Melina Elizalde CCS, CCDS Admit Date: 03/11/2020 11:07:00 PM Patient Name: Ban Estrada Visit Number: [id number] Discharge Date: ATTENTION: The Clinical Documentation Specialists (CDI) and [facility] Coding Staff appreciate your assistance in clarifying documentation. Please respond to the clarification below the line at the bottom and electronically sign. The CDI & [facility] Coding staff will review the response and follow-up if needed. Please note: Queries are made part of the Legal Health Record. If you have any questions, please contact the author of this message via ITS. Dr. Lyle Hoffman: Per the 03/14 Attending Physician Progress Note: "Possible underlying pneumonia." Per the 03/14 Pulmonary Progress Note: "Chest x-ray continues to show evidence of interstitial edema, strongly doubt pneumonia." Per the 03/20 GI Progress Note: "Possible pneumonia." History/Risk Factors: Diastolic CHF, Angina, Asthma, COPD, DM, Hyperlipidemia, Hypertension, Obesity with BMI 43.3, Smoker. Clinical Indicators: 69 yo female, presented to the ED on 03/11 with SOB, increased swelling to her extremities. Patient is on home O2 at night & takes Lasix for CHF. Diagnosed with CHF exacerbation. Patient was intubated on vent from 03/16 to 03/18. Vital signs 03/11: T 97.8, P 60, R 18 - 10* - 22 (SOB); BP 153/78, PO 86 RA - 99 4Lnc. LAB 03/11: WBC 11.2^, Hgb 9.8*, Neut 8.9^, BNP 8000 03/11 ABG: pH 7.12, pCO2 83^^, pO2 135^, HCO3 27^, Total CO2 29^, O2 Sat 98.4^. 03/14 Blood culture: negative (final); 03/16 Sputum culture: negative (final). RAD 03/11: CXR: increased pulmonary vascular congestion & pleural fluid. 03/13 CXR: Right basilar airspace disease may represent confluent edema or pneumonia. 03/15 CXR: Correlate for developing LLL pneumonia. 03/18 CXR: May be atelectasis, correlate to exclude pneumonia. Treatment 03/11: IV Lasix, INH Albuterol, IV Solumedrol. Per the 03/20 GI Progress Note: "Continue broad spectrum antibiotics." PO Zithromax ordered on 03/12: not given. In order to capture the severity of condition, please clarify if the pneumonia diagnosis: Pneumonia is ruled out Pneumonia is ruled in, please specify type: o Community acquired o Bacterial o Viral Pneumonia o Other Pneumonia, please specify: Unable to determine (Last Revision: November 2017) MTDD
[2020-03-23 11:57] LABS: Glucose,Whole Blood 171 mg/dL (75-99)
--- NOTE | 2020-03-23 13:03 | P.PN ---
Subjective Progress Note Date: 03/23/20 03/23/2020 the patient is being seen in follow-up in intensive care unit. Doing well on 2 L of oxygen by nasal cannula. Still has significant amount of edema. Despite being on IV Lasix 40 mg every 12 hours and oral Diamox, there has been no significant improvement in the volume status and the patient continues to be having significant edema and she is and diffuse anasarca. The patient otherwise is using incentive spirometer, pulling approximately 2 50 mL. She is having some diarrhea and stool for C. diff has been sent pain noted the patient is not receiving any antibiotics for now. She is going to be transferred to medical surgical floor. She has a DNR/DNI CODE STATUS. No evidence of any GI bleed. Hemoglobin stable. EGD was done on 03/18/2020. Serum bicarb is stable and the patient is being diuresis as the patient is currently on Diamox. Echo of the heart showed an ejection fraction of 50-65% and the patient has severe pulmonary hypertension with a PA pressure was 76. No signs of any significant rest or distress. She is having some increased bronchus further wheezing and she is on prednisone burst taper. Objective - Vital Signs Vital signs: Vital Signs Temp 98.4 F 03/23/20 08:24 Pulse 68 03/23/20 09:19 Resp 16 03/23/20 08:24 BP 110/43 03/23/20 08:24 Pulse Ox 94 L 03/23/20 08:24 Intake & Output 03/22/20 03/23/20 03/23/20 18:59 06:59 18:59 Intake Total 300 100 Output Total 875 1225 Balance -875 -925 100 Weight 97.2 kg 97.2 kg Intake: Oral 300 100 Output: Urine 875 1225 Other: Voiding Method Indwelling Catheter Indwelling Catheter Indwelling Catheter # Bowel Movements 1 ABP, PAP, CO, CI - Last Documented Arterial Blood Pressure 116/74 - Exam GENERAL EXAM: Alert, pleasant 69-year-old female patient, on 2 L nasal cannula, comfortable in no apparent distress. HEAD:Head exam was generally normal. There was no scleral icterus or corneal arcus. Mucous membranes were moist. EYES: Normal reaction of pupils, equal size. NOSE: Clear with pink turbinates. THROAT: No erythema or exudates. NECK: No masses, no JVD. CHEST: No chest wall deformity. LUNGS: Equal air entry with few scattered rhonchi. CVS: There is normal S1 and there is accentuation of the second heart sound normal with no audible murmur, regular rhythm. ABDOMEN: No hepatosplenomegaly, normal bowel sounds, no guarding or rigidity. The patient is abdominal edema. No direct tenderness but no rebound tenderness. No guarding. SPINE: No scoliosis or deformity SKIN: No rashes CENTRAL NERVOUS SYSTEM: No focal deficits, tone is normal in all 4 extremities. EXTREMITIES: There And the patient has significant edema in all 4 extremities and she has diffuse anasarca with some abdominal edema.. No clubbing, no cyanosis. Peripheral pulses are intact. - Labs CBC & Chem 7: 03/22/20 04:46 03/23/20 04:18 Labs: Abnormal Lab Results - Last 24 Hours (Table) 03/22/20 03/22/20 03/22/20 Range/Units 16:51 17:58 20:27 Sodium (137-145) mmol/L Potassium (3.5-5.1) mmol/L Carbon Dioxide (22-30) mmol/L BUN (7-17) mg/dL POC Glucose (mg/dL) 253 H 282 H 264 H (75-99) mg/dL Calcium (8.4-10.2) mg/dL AST (14-36) U/L ALT (4-34) U/L Total Protein (6.3-8.2) g/dL Albumin (3.5-5.0) g/dL Urine Appearance (Clear) Urine Protein (Negative) Urine Blood (Negative) Ur Leukocyte Esterase (Negative) Urine WBC (0-5) /hpf Urine WBC Clumps (None) /hpf Urine Bacteria (None) /hpf Urine Mucus (None) /hpf 03/23/20 03/23/20 03/23/20 Range/Units 04:18 06:47 08:15 Sodium 136 L (137-145) mmol/L Potassium 3.2 L (3.5-5.1) mmol/L Carbon Dioxide 35 H (22-30) mmol/L BUN 24 H (7-17) mg/dL POC Glucose (mg/dL) 116 H (75-99) mg/dL Calcium 7.7 L (8.4-10.2) mg/dL AST 39 H (14-36) U/L ALT 84 H (4-34) U/L Total Protein 4.0 L (6.3-8.2) g/dL Albumin 2.1 L (3.5-5.0) g/dL Urine Appearance Cloudy H (Clear) Urine Protein Trace H (Negative) Urine Blood Trace H (Negative) Ur Leukocyte Esterase Large H (Negative) Urine WBC >182 H (0-5) /hpf Urine WBC Clumps Many H (None) /hpf Urine Bacteria Many H (None) /hpf Urine Mucus Rare H (None) /hpf 03/23/20 Range/Units 11:56 Sodium (137-145) mmol/L Potassium (3.5-5.1) mmol/L Carbon Dioxide (22-30) mmol/L BUN (7-17) mg/dL POC Glucose (mg/dL) 171 H (75-99) mg/dL Calcium (8.4-10.2) mg/dL AST (14-36) U/L ALT (4-34) U/L Total Protein (6.3-8.2) g/dL Albumin (3.5-5.0) g/dL Urine Appearance (Clear) Urine Protein (Negative) Urine Blood (Negative) Ur Leukocyte Esterase (Negative) Urine WBC (0-5) /hpf Urine WBC Clumps (None) /hpf Urine Bacteria (None) /hpf Urine Mucus (None) /hpf Assessment and Plan Plan: #1. Acute on chronic hypoxic and hypercapnic respiratory failure, multifactorial secondary to underlying COPD, COPD exacerbation and acute on chronic diastolic congestive heart failure. She did require mechanical ventilatory support from March 16 to 03/18/2020. Currently on 2 L nasal cannula. #2. Acute blood loss anemia related to lower GI bleeding, patient started passing maroon-colored stools on 03/14/2020, requiring transfusion with 3 units of packed red blood cells. Hemoglobin is currently stable. She is status post EGD with no active bleeding noted on 03/18/2020. #3. Acute exacerbation of COPD, in the patient with baseline FEV1 of 42% of predicted and diffusion capacity of 45% of predicted, and acute COPD exacerbati on improving #4. Chronic cor pulmonale, and worsening right-sided congestive heart failure, and the patient has severe pulmonary hypertension with a PA pressure of 76 #5. Hypothyroidism #6. Severe pulmonary hypertension, moderate tricuspid regurgitation, and mild mitral regurgitation #7. Degenerative joint disease #8. Type 2 diabetes mellitus #9. Former smoker #10. History of nephrolithiasis #11. Hyponatremia, related to hypervolemia and this has recovered #12 metabolic alkalosis secondary to aggressive diuresis Plan IV Lasix to be continued on weight increase the dose of 40 mg every 8 hours Continue Diamox and monitor the serum bicarb level Optimize volume status Prednisone burst taper Initiated DuoNeb nebulized treatment [id number] in addition to the prednisone burst taper as the patient has some increased wheezing She can be transferred to telemetry unit.
--- NOTE | 2020-03-23 14:05 | P.PN ---
Subjective Progress Note Date: 03/23/20 Patient is alert and awake this morning. No acute events overnight reported by nursing staff. Objective - Vital Signs Vital signs: Vital Signs Temp 98.4 F 03/23/20 08:24 Pulse 68 03/23/20 13:17 Resp 16 03/23/20 08:24 BP 110/43 03/23/20 08:24 Pulse Ox 94 L 03/23/20 08:24 Intake & Output 03/22/20 03/23/20 03/23/20 18:59 06:59 18:59 Intake Total 300 100 Output Total 875 1225 Balance -875 -925 100 Weight 97.2 kg 97.2 kg Intake: Oral 300 100 Output: Urine 875 1225 Other: Voiding Method Indwelling Catheter Indwelling Catheter Indwelling Catheter # Bowel Movements 1 ABP, PAP, CO, CI - Last Documented Arterial Blood Pressure 116/74 - Exam General: The patient is awake and alert, in no distress Eye: there is normal conjunctiva bilaterally. Neck: The neck is supple, there is no JVD. Cardiovascular: Normal S1-S2, no S3-S4, no murmurs. Respiratory: Lungs with diffuse rales and rhonchi all over the chest Gastrointestinal: Abdomen is soft, nontender Musculoskeletal: There is 2 pedal edema. Skin: Skin is warm and dry - Labs CBC & Chem 7: 03/22/20 04:46 03/23/20 04:18 Labs: Abnormal Lab Results - Last 24 Hours (Table) 03/22/20 03/22/20 03/22/20 Range/Units 16:51 17:58 20:27 Sodium (137-145) mmol/L Potassium (3.5-5.1) mmol/L Carbon Dioxide (22-30) mmol/L BUN (7-17) mg/dL POC Glucose (mg/dL) 253 H 282 H 264 H (75-99) mg/dL Calcium (8.4-10.2) mg/dL AST (14-36) U/L ALT (4-34) U/L Total Protein (6.3-8.2) g/dL Albumin (3.5-5.0) g/dL Urine Appearance (Clear) Urine Protein (Negative) Urine Blood (Negative) Ur Leukocyte Esterase (Negative) Urine WBC (0-5) /hpf Urine WBC Clumps (None) /hpf Urine Bacteria (None) /hpf Urine Mucus (None) /hpf 03/23/20 03/23/20 03/23/20 Range/Units 04:18 06:47 08:15 Sodium 136 L (137-145) mmol/L Potassium 3.2 L (3.5-5.1) mmol/L Carbon Dioxide 35 H (22-30) mmol/L BUN 24 H (7-17) mg/dL POC Glucose (mg/dL) 116 H (75-99) mg/dL Calcium 7.7 L (8.4-10.2) mg/dL AST 39 H (14-36) U/L ALT 84 H (4-34) U/L Total Protein 4.0 L (6.3-8.2) g/dL Albumin 2.1 L (3.5-5.0) g/dL Urine Appearance Cloudy H (Clear) Urine Protein Trace H (Negative) Urine Blood Trace H (Negative) Ur Leukocyte Esterase Large H (Negative) Urine WBC >182 H (0-5) /hpf Urine WBC Clumps Many H (None) /hpf Urine Bacteria Many H (None) /hpf Urine Mucus Rare H (None) /hpf 03/23/20 Range/Units 11:56 Sodium (137-145) mmol/L Potassium (3.5-5.1) mmol/L Carbon Dioxide (22-30) mmol/L BUN (7-17) mg/dL POC Glucose (mg/dL) 171 H (75-99) mg/dL Calcium (8.4-10.2) mg/dL AST (14-36) U/L ALT (4-34) U/L Total Protein (6.3-8.2) g/dL Albumin (3.5-5.0) g/dL Urine Appearance (Clear) Urine Protein (Negative) Urine Blood (Negative) Ur Leukocyte Esterase (Negative) Urine WBC (0-5) /hpf Urine WBC Clumps (None) /hpf Urine Bacteria (None) /hpf Urine Mucus (None) /hpf Assessment and Plan Assessment: The patient is a 69-year-old female with a PMH of type II DM, hypertension, hyperlipidemia, hypothyroidism, severe COPD, diastolic CHF, and morbid obesity who presented to the ED with shortness of breath along with lower extremity swelling. The patient was admitted for hypoxic and hypercapnic respiratory failure with CHF and COPD exacerbation with fluid overload. The patient was placed on IV Lasix with IV steroids and bronchodilators. The patient had episode of GI bleeding on 03/15 with a drop from 8.5-5.5 gm/dL. The patient was given 2 units of PRBCs and GI recommended continued monitoring. Hemoglobin dropped again to 6.7 on 03/17 requiring 1 unit of blood transfusion. The patient's hypercapnia worsened on 03/16 to a pCO2 of 85. Her mental status also deteriorated and the patient was subsequently intubated by the childcare teacher. She was seen and evaluated in the medical ICU on 03/16. The patient was sedated and minimally arousable. Assessment and Plan: Acute hypoxic and hypercapnic respiratory failure in setting of acute COPD and diastolic CHF exacerbations -Status post endotracheal intubation on 03/16 with successful intubation on 03/19 -IV steroid transitioned to oral prednisone -Continue bronchodilators Acute diastolic heart failure exacerbation with severe pulmonary hypertension -Resume IV diuresis with IV Lasix for another day or 2. Monitor I's and O's closely. Acute blood loss anemia secondary to GI bleeding -Status post 3 units of PRBCs -Continue to monitor CBC -Protonix 40 twice a day -Status post EGD on 03/18 showing nonbleeding duodenal ulcer with mild gastritis and no active bleeding Altered mental status, likely toxo metabolic encephalopathy multifactorial in setting of hypercapnia with delirium on presentation, now resolved Hyperkalemia, resolved -Holding home spironolactone Hyponatremia -Improved Type II DM -Lispro insulin sliding scale blood glucose monitoring Hypothyroidism -Continue with home Synthroid dose DVT prophylaxis -With SCDs CODE STATUS -DNR/DNI Transfer out of ICU, PT/OT evaluation, discharge planning to [facility] when medically stable
--- NOTE | 2020-03-23 16:01 | PN ---
PROGRESS NOTE Patient is seen for followup for hyponatremia and volume overload. She is currently maintained on IV Lasix. Sodium has improved and currently it is at 136. Patient has had good urine output. A 24 hour output was 2 L. PHYSICAL EXAMINATION: Patient is comfortable, awake, not in any acute distress. Blood pressure 110/43, heart rate 68 per minute, patient is afebrile. Examination of the heart S1, S2. Examination of the lungs, bilateral breath sounds are heard. Decreased breath sounds at bases. Abdomen is soft, nontender. Examination of the lower extremities shows edema 3+ bilaterally. RESEARCH HOME ECONOMIST exam shows patient moving all 4 extremities. LABS: Show sodium 136, potassium 3.2, CO2 is 35, BUN 24, creatinine 0.63. UA shows WBCs more than 182. ASSESSMENT: 1. Hyponatremia which was hypervolemic, maintained on IV Lasix and improved. 2. Volume overload, mainly diastolic heart failure. 3. Dyslipidemia. 4. Chronic obstructive pulmonary disease exacerbation, maintained on steroids. 5. Severe pulmonary hypertension. 6. History of nephrolithiasis. PLAN: Continue with IV Lasix. Monitor CO2. Maintain patient on fluid restriction. Replace potassium and repeat labs in a.m. MMODL / IJN: [id number] /
[2020-03-23 16:41] LABS: Glucose,Whole Blood 186 mg/dL (75-99)
--- NOTE | 2020-03-23 20:01 | PN ---
PROGRESS NOTE DATE OF DICTATION: 03/23/2020 This patient is a 69-year-old pleasant white female admitted to the hospital with acute GI bleed. She is doing better. No bleeding. Shortness of breath is gradually improving. Overall she is feeling well. PHYSICAL EXAMINATION: Appears comfortable. VITAL SIGNS: Stable. Blood pressure is 131/51, pulse rate 67, temperature 98. HEENT examination unremarkable. Conjunctivae pink. Sclerae anicteric. Oral cavity no lesions. NECK: No JVD or lymph node enlargement. CHEST: Clear to auscultation. HEART: Regular rate and rhythm. ABDOMEN: Soft. Bowel sounds are positive. No organomegaly. EXTREMITIES: No pedal edema. NEUROLOGIC: Alert and oriented x3. No focal deficits. LABS: Labs from today show hemoglobin 7.8, WBC 13.6, platelets 116. BUN 24, creatinine 0.63. ALT and AST are 39 and 84, respectively. IMPRESSION: 1. Acute upper gastrointestinal bleed secondary to bleeding duodenal ulcer, status post EGD 5 days ago. Patient with no further bleeding. Hemoglobin remains stable. Remains on Protonix 40 mg q.12 hours. 2. Exacerbation of chronic obstructive pulmonary disease. 3. Mild elevation of serum transaminases, which are gradually improving. 4. Possible pneumonia, on broad-spectrum antibiotics. RECOMMENDATIONS: 1. Continue Protonix 40 mg twice daily. 2. Monitor CBC daily. 3. Continue antibiotics. 4. Will follow with you closely. Thank you for this consultation. MMMALICKL / IJN: [id number] /
[2020-03-23 20:20] LABS: Glucose,Whole Blood 269 mg/dL (75-99)
[2020-03-23] MEDS: ARIPiprazole 5 MG TAB PO SCH (21:05)
[2020-03-23 22:58] LABS: Glucose,Whole Blood 194 mg/dL (75-99)
[2020-03-24] MEDS: CHLORHEXIDINE GLUCONATE 15 ML CUP MUCOUS MEM SCH (00:58)
[2020-03-24] MEDS: LEVOTHYROXINE 100 MCG TAB PO SCH (06:26)
[2020-03-24 06:57] LABS: Glucose,Whole Blood 149 mg/dL (75-99)
--- NOTE | 2020-03-24 07:47 | CDI ---
Unable to determine Documentation Clarification Form Date: 03/23/2020 11:04:00 AM From: Melina Elizalde CCS, CCDS Admit Date: 03/11/2020 11:07:00 PM Patient Name: Ban Estrada Visit Number: [id number] Discharge Date: ATTENTION: The Clinical Documentation Specialists (CDI) and [facility] Coding Staff appreciate your assistance in clarifying documentation. Please respond to the clarification below the line at the bottom and electronically sign. The CDI & [facility] Coding staff will review the response and follow-up if needed. Please note: Queries are made part of the Legal Health Record. If you have any questions, please contact the author of this message via ITS. Dr. Edda Vick: Per the 03/14 Attending Physician Progress Note: "Possible underlying pneumonia." Per the 03/14 Pulmonary Progress Note: "Chest x-ray continues to show evidence of interstitial edema, strongly doubt pneumonia." Per the 03/20 GI Progress Note: "Possible pneumonia." History/Risk Factors: Diastolic CHF, Angina, Asthma, COPD, CKD, DM, Hyperlipidemia, Hypertension, Obesity with BMI 43.3, Smoker. Clinical Indicators: 69 yo female, presented to the ED on 03/11 with SOB, increased swelling to her extremities. Patient is on home O2 at night & takes Lasix for CHF. Diagnosed with CHF exacerbation. Patient was intubated on vent from 03/16 to 03/18. Vital signs 03/11: T 97.8, P 60, R 18 - 10* - 22 (SOB); BP 153/78, PO 86 RA - 99 4Lnc. LAB 03/11: WBC 11.2^, Hgb 9.8*, Neut 8.9^, BNP 8000 03/11 ABG: pH 7.12, pCO2 83^^, pO2 135^, HCO3 27^, Total CO2 29^, O2 Sat 98.4^. 03/14 Blood culture: negative (final); 03/16 Sputum culture: negative (final). RAD 03/11: CXR: increased pulmonary vascular congestion & pleural fluid. 03/13 CXR: Right basilar airspace disease may represent confluent edema or pneumonia. 03/15 CXR: Correlate for developing LLL pneumonia. 03/18 CXR: May be atelectasis, correlate to exclude pneumonia. Treatment 03/11: IV Lasix, INH Albuterol, IV Solumedrol. Per the 03/20 GI Progress Note: "Continue broad spectrum antibiotics." PO Zithromax ordered on 03/12: not given. In order to capture the severity of condition, please clarify if the pneumonia diagnosis: Pneumonia is ruled out Pneumonia is ruled in, please specify type: o Community acquired o Bacterial o Viral Pneumonia o Other Pneumonia, please specify: Unable to determine (Last Revision: November 2017) MTDD
[2020-03-24 08:03] LABS: Anisocytosis Moderate; Basophils % (A) 0 %; Eosinophils # (A) 0.2 k/uL (0-0.7); Eosinophils % (A) 1 %; HCT 26.7 % (34.0-46.0); HGB 7.4 gm/dL (11.4-16.0); Hypochromasia Marked; Lymphocytes # (A) 0.5 k/uL (1.0-4.8); Lymphocytes % (A) 3 %; MCH 23.2 pg (25.0-35.0); MCHC 27.6 g/dL (31.0-37.0); Mean Platelet Volume 9.2; Microcytosis Slight; Monocytes # (A) 0.7 k/uL (0-1.0); Monocytes % (A) 5 %; Neutrophils # (A) 12.9 k/uL (1.3-7.7); Neutrophils % (A) 90 %; Platelet Count 147 k/uL (150-450); Poikilocytosis Moderate; RBC 3.17 m/uL (3.80-5.40); RDW 21.2 % (11.5-15.5); WBC 14.3 k/uL (3.8-10.6)
[2020-03-24] MEDS: ATORVASTATIN 40 MG TAB PO SCH (08:10)
[2020-03-24] MEDS: ESCITALOPRAM 20 MG TAB PO SCH (08:10)
[2020-03-24] MEDS: METOPROLOL TARTRATE 25 MG TAB PO SCH ×3 (08:11→22:30)
[2020-03-24] MEDS: predniSONE 20 MG TAB PO SCH (08:12)
[2020-03-24] MEDS: PANTOPRAZOLE 40 MG TABLET PO SCH ×2 (08:12→22:30)
[2020-03-24] MEDS: INSULIN ASPART (NovoLOG) 100 UNIT/ML VIAL SQ SCH ×4 (08:13→21:24)
[2020-03-24 08:18] LABS: ALT 73 U/L (4-34); AST 33 U/L (14-36); African American GFR (CKD) >90 (>60 ml/min/1.73 sqM); Albumin 2.2 g/dL (3.5-5.0); Alkaline Phosphatase 107 U/L (38-126); Anion Gap 0 mmol/L; Blood Urea Nitrogen 21 mg/dL (7-17); Calcium 7.6 mg/dL (8.4-10.2); Carbon Dioxide 38 mmol/L (22-30); Chloride 99 mmol/L (98-107); Glucose 120 mg/dL (74-99); Non-African American GFR(CKD) >90 (>60 ml/min/1.73 sqM); Potassium 3.4 mmol/L (3.5-5.1); Sodium 137 mmol/L (137-145); Total Bilirubin 0.4 mg/dL (0.2-1.3); Total Protein 4.1 g/dL (6.3-8.2)
[2020-03-24] MEDS: NYSTATIN 100,000UNIT/GM CREAM 30 GM TUBE TOPICAL SCH ×3 (08:19→22:30)
[2020-03-24] MEDS: FUROSEMIDE 10 MG/ML 4 ML VIAL IV SCH ×2 (08:20→15:24)
[2020-03-24] MEDS: BUDESONIDE 1 MG/2 ML NEBU INHALATION SCH ×2 (08:32→20:29)
[2020-03-24] MEDS: FORMOTEROL FUMARATE 20 MCG/2 ML NEBU INHALATION SCH ×2 (08:32→20:29)
[2020-03-24] MEDS: IPRATROPIUM-ALBUTEROL 3 ML NEB INHALATION SCH ×4 (08:32→20:29)
--- NOTE | 2020-03-24 10:53 | XR ---
EXAMINATION TYPE: XR chest 1V portable DATE OF EXAM: 03/24/2020 COMPARISON: 04/08/2020 INDICATION: Wheezing and crackles TECHNIQUE: Single frontal view of the chest is obtained. FINDINGS: The heart size is enlarged. The pulmonary vasculature is upper limits normal. Neutral irregular opacity over the right lung field. Minimal infiltrate left lower. Findings are stab le from comparison. IMPRESSION: 1. Right lung opacity which can be related atelectasis. 2. Mild left lower lobe infiltrate may be present as well. 3. Continued follow-up is recommended.
[2020-03-24] MEDS: POTASSIUM CHLORIDE ER 20 MEQ TAB.ER PO SCH ×2 (10:57→11:47)
[2020-03-24 11:22] LABS: Glucose,Whole Blood 252 mg/dL (75-99)
--- NOTE | 2020-03-24 11:23 | P.PN ---
Subjective Progress Note Date: 03/24/20 Patient has no new complaints today, does sound junky to me when I look at her. Does not seem to have much exercise tolerance, however, denies orthopnea, shortness of breath. Continues to have a cough, denies fevers, chills. Objective - Vital Signs Vital signs: Vital Signs Temp 97.7 F 03/24/20 07:00 Pulse 65 03/24/20 08:55 Resp 17 03/24/20 07:00 BP 118/66 03/24/20 07:00 Pulse Ox 93 L 03/24/20 07:00 Intake & Output 03/23/20 03/24/20 03/24/20 18:59 06:59 18:59 Intake Total 100 50 Output Total 800 1075 Balance -700 -1075 50 Weight 97.2 kg 98.3 kg Intake: IV 50 cefTRIAXone 1 gm In 50 Sodium Chloride 0.9% 50 ml @ 100 mls/hr IVPB Q12HR [facility] Rx#:[id number] Oral 100 Output: Urine 800 1075 Other: Voiding Method Indwelling Catheter Indwelling Catheter Indwelling Catheter ABP, PAP, CO, CI - Last Documented Arterial Blood Pressure 116/74 - Exam Gen: awake, alert HEENT: normocephalic, atraumatic, good hearing acuity, moist mucous membranes Resp: diffuse crackles with prominent early expiratory wheezes diffusely throughout all lung campbell CVS: good distal perfusion x 4, RRR, no murmurs, clicks, gallops GI: soft, NTTP, ND : no SPT, no CVAT, godinez catheter [IS/NOT] present MSK: b/l pitting edema, no clubbing Neuro: non-focal, no sensory deficits, appropriate tone Psych: cooperative, euthymic mood - Labs CBC & Chem 7: 03/24/20 07:39 03/24/20 07:39 Labs: Abnormal Lab Results - Last 24 Hours (Table) 03/23/20 03/23/20 03/23/20 Range/Units 11:56 16:39 20:18 WBC (3.8-10.6) k/uL RBC (3.80-5.40) m/uL Hgb (11.4-16.0) gm/dL Hct (34.0-46.0) % MCH (25.0-35.0) pg MCHC (31.0-37.0) g/dL RDW (11.5-15.5) % Plt Count (150-450) k/uL Neutrophils # (1.3-7.7) k/uL Lymphocytes # (1.0-4.8) k/uL Potassium (3.5-5.1) mmol/L Carbon Dioxide (22-30) mmol/L BUN (7-17) mg/dL Glucose (74-99) mg/dL POC Glucose (mg/dL) 171 H 186 H 269 H (75-99) mg/dL Calcium (8.4-10.2) mg/dL ALT (4-34) U/L Total Protein (6.3-8.2) g/dL Albumin (3.5-5.0) g/dL 03/23/20 03/24/20 03/24/20 Range/Units 22:57 06:56 07:39 WBC (3.8-10.6) k/uL RBC (3.80-5.40) m/uL Hgb (11.4-16.0) gm/dL Hct (34.0-46.0) % MCH (25.0-35.0) pg MCHC (31.0-37.0) g/dL RDW (11.5-15.5) % Plt Count (150-450) k/uL Neutrophils # (1.3-7.7) k/uL Lymphocytes # (1.0-4.8) k/uL Potassium 3.4 L (3.5-5.1) mmol/L Carbon Dioxide 38 H (22-30) mmol/L BUN 21 H (7-17) mg/dL Glucose 120 H (74-99) mg/dL POC Glucose (mg/dL) 194 H 149 H (75-99) mg/dL Calcium 7.6 L (8.4-10.2) mg/dL ALT 73 H (4-34) U/L Total Protein 4.1 L (6.3-8.2) g/dL Albumin 2.2 L (3.5-5.0) g/dL 03/24/20 Range/Units 07:39 WBC 14.3 H (3.8-10.6) k/uL RBC 3.17 L (3.80-5.40) m/uL Hgb 7.4 L (11.4-16.0) gm/dL Hct 26.7 L (34.0-46.0) % MCH 23.2 L (25.0-35.0) pg MCHC 27.6 L (31.0-37.0) g/dL RDW 21.2 H (11.5-15.5) % Plt Count 147 L (150-450) k/uL Neutrophils # 12.9 H (1.3-7.7) k/uL Lymphocytes # 0.5 L (1.0-4.8) k/uL Potassium (3.5-5.1) mmol/L Carbon Dioxide (22-30) mmol/L BUN (7-17) mg/dL Glucose (74-99) mg/dL POC Glucose (mg/dL) (75-99) mg/dL Calcium (8.4-10.2) mg/dL ALT (4-34) U/L Total Protein (6.3-8.2) g/dL Albumin (3.5-5.0) g/dL Microbiology - Last 24 Hours (Table) 03/23/20 08:15 Urine Culture - Preliminary Urine,Voided - Imaging and Cardiology Chest x-ray: pending (Ordered for diffuse crackles and wheezing with new oxygen requirement from baseline while awake) Assessment and Plan Assessment: The patient is a 69-year-old female with a PMH of type II DM, hypertension, hyperlipidemia, hypothyroidism, severe COPD, diastolic CHF, and morbid obesity who presented to the ED with shortness of breath along with lower extremity swelling. The patient was admitted for hypoxic and hypercapnic respiratory failure with CHF and COPD exacerbation with fluid overload. The patient was placed on IV Lasix with IV steroids and bronchodilators. The patient had episode of GI bleeding on 03/15 with a drop from 8.5-5.5 gm/dL. The patient was given 2 units of PRBCs and GI recommended continued monitoring. Hemoglobin dropped again to 6.7 on 03/17 requiring 1 unit of blood transfusion. The patient's hypercapnia worsened on 03/16 to a pCO2 of 85. Her mental status also deteriorated and the patient was subsequently intubated by the special events driver. She was seen and evaluated in the medical ICU on 03/16. The patient was sedated and minimally arousable. Assessment and Plan: Acute hypoxic and hypercapnic respiratory failure in setting of acute COPD and diastolic CHF exacerbations -Status post endotracheal intubation on 03/16 with successful intubation on 03/19 -IV steroid transitioned to oral prednisone -Continue bronchodilators -CXR ordered 03/24 due to ongoing coarse breath sounds and diffuse wheezing, pending read -Sputum Cx micro with GPC, likely contaminant Acute diastolic heart failure exacerbation with severe pulmonary hypertension -Resume IV diuresis with IV Lasix for another day or 2. Monitor I's and O's closely. -currently on lasix 40mg IV TID Acute blood loss anemia secondary to GI bleeding -Status post 3 units of PRBCs -Continue to monitor CBC daily -Protonix 40 twice a day -Status post EGD on 03/18 showing nonbleeding duodenal ulcer with mild gastritis and no active bleeding Altered mental status, likely toxo metabolic encephalopathy multifactorial in setting of hypercapnia with delirium on presentation, now resolved Hyperkalemia, resolved -Holding home spironolactone Hyponatremia -Improved Type II DM -Lispro insulin sliding scale blood glucose monitoring Hypothyroidism -Continue with home Synthroid dose DVT prophylaxis -With SCDs CODE STATUS -DNR/DNI Transfer out of ICU, PT/OT evaluation, discharge planning to [facility] when medically stable
[2020-03-24] MEDS: ACETAMINOPHEN TAB 325 MG TAB PO PRN (12:58)
--- NOTE | 2020-03-24 14:31 | P.PN ---
Subjective Progress Note Date: 03/24/20 Principal diagnosis: Acute on chronic hypoxic and hypercapnic respiratory failure This is a 69-year-old female with history of severe COPD, former smoker, chronic cor pulmonale, hypertension, hypothyroidism, morbid obesity, type 2 diabetes, diastolic congestive heart failure, patient was brought into the emergency room with a few days' history of increased shortness of breath and increase legs swelling. Patient actually was noted to have anasarca in the ER. Chest x-ray showed evidence of congestive heart failure, and small bilateral pleural effusions. ABG showed a pO2 of 135 pCO2 of 83 pH of 7.12 and this was on 36% FiO2. Patient was placed on BiPAP, and she was also noted to have hyponatremia and hyperkalemia. As well as significantly elevated proBNP level. Considering the findings, patient was placed on diuretics, bronchodilators, and I was asked to see her on consultation. Patient was evaluated in the ER, she is on BiPAP, not much history could be obtained from the patient. Reevaluated today in ICU on 03/13/20, patient remains in the ICU, she was on BiP AP through the night, however this morning she was switched to a nasal cannula and she is presently at 2 L/m. Patient seems to be comfortable, she is more awake, denies any cough wheezing or shortness of breath denies any chest pain. Remains on Lasix at 40 mg IV push every 8 hours, she is also on bronchodilators, steroids, continues to have significant swelling/anasarca. Patient has been in negative balance over the last 24 hours around 2 L. CBC is showing WBC of 3.1 hemoglobin is 8.9 sodium is 127 potassium is 5.2, BUN is 47 creatinine is improved down to 0.87 in spite of diuresis. Patient was reevaluated today on 03/14/20, remains in the intensive care unit, remains on Lasix drip at 10 mg per hour. She has positive urine and blood cultures. Sodium remains low and she was given tolvaptan by nephrology today. Pulmonary-haas, the patient is feeling better, breathing easier, presently on 2 L nasal cannula. And her O2 saturations is in the low 90s. She is hemodynamically stable, and she is in sinus rhythm. Her labs were all reviewed and her chest x-ray was reviewed. Chest x-ray continues to show evidence of interstitial edema, strongly doubt pneumonia. BUN is 58 creatinine 0.89. Hemoglobin today is 8.5. On 03/15/2020 patient seen in follow-up in the intensive care unit, she is lethargic, but arousable to verbal and tactile stimulation, she is on 2 L of oxygen her pulse oximetry is 90-92%, she is afebrile, hemodynamically patient is stable, 0.9 was seen at a rate of 20 ML per hour, and Lasix drip is at 10 mg per hour. She is in sinus mechanism with a rate of 74 BPM. Patient was admitted to the hospital on 03/11/2020 with a diagnosis of CHF, was started on Lasix infusion, however last night patient also started passing large burgundy colored stools, and hemoglobin came down to 5.5 on this morning's labs. 2 units of packed red blood cells were ordered, and one has already been infused. The second one is pending. Patient has produced 4 L in the urine output, he still has significant amount of upper and lower extremity edema, edema in her upper thighs and abdominal wall. Abdomen is distended, firm, with pitting edema, however it is nontender. Patient is on baby aspirin daily, which was placed on hold today, patient is not on any other anticoagulation. Today's labs have been reviewed, showing white blood cell count of 8.7, hemoglobin is 5.5 as mentioned above, platelet count is 332, serum sodium is 127 with potassium of 5.4, chloride is 95, CO2 26, B1 is 82, creatinine is 0.85. Blood gas was reviewed showing pO2 of 79, pCO2 74, and pH of 7.25 consistent with acute hypercapnic respiratory failure related to rule out overload secondary to acute exacerbation of CHF with diastolic dysfunction On 03/24/2020 patient seen in follow-up on selective care unit, she was transferred out of intensive care unit yesterday, she has remained stable o vernight, she is currently on 2 L of oxygen her pulse ox is 96%, hemodynamically she remains stable, denies any specific complaints, breathing seems to be comfortable, she still has some wheezing and congestion, she remains on bronchodilators, empiric antibiotics, and IV Lasix, she still significantly swollen in her upper and lower extremities, abdominal wall, her edema has improved, but there is still some residual swelling. He is in -1.7 L net fluid balance over the last 24 hours. Today's labs have been reviewed showing bilateral: 14.3, hemoglobin is 7.4, sodium is 137, potassium is 3.4, chloride is 99, CO2 is 38, BUN is 21, creatinine 0.61. Urinalysis was sent yesterday showing evidence of urinary tract infection, urine culture showing gram-negative bacilli, and patient is currently on Rocephin. Denies fever or chills. Objective - Vital Signs Vital signs: Vital Signs Temp 97.8 F 03/24/20 14:15 Pulse 74 03/24/20 14:15 Resp 18 03/24/20 14:15 BP 142/61 03/24/20 14:15 Pulse Ox 96 03/24/20 14:15 Intake & Output 03/23/20 03/24/20 03/24/20 18:59 06:59 18:59 Intake Total 100 50 Output Total 800 1075 Balance -700 -1075 50 Weight 97.2 kg 98.3 kg Intake: IV 50 cefTRIAXone 1 gm In 50 Sodium Chloride 0.9% 50 ml @ 100 mls/hr IVPB Q12HR [facility] Rx#:[id number] Oral 100 Output: Urine 800 1075 Other: Voiding Method Indwelling Catheter Indwelling Catheter Indwelling Catheter # Bowel Movements 1 ABP, PAP, CO, CI - Last Documented Arterial Blood Pressure 116/74 - Exam GENERAL EXAM: 69-year-old white female, on 2 L of oxygen with pulse ox of 96%, awake and alert, comfortable in no apparent distress. HEAD: Normocephalic/atraumatic. EYES: Normal reaction of pupils, equal size. Conjunctiva pink, sclera white. NOSE: Clear with pink turbinates. THROAT: No erythema or exudates. NECK: No masses, no JVD, no thyroid enlargement, no adenopathy. CHEST: No chest wall deformity. Symmetrical expansion. LUNGS: Equal air entry with diminished breath sounds at the bases, diffuse wheezes CVS: Regular rate and rhythm, normal S1 and S2, no gallops, no murmurs, no rubs ABDOMEN: Soft, nontender. No hepatosplenomegaly, normal bowel sounds, no guarding or rigidity. EXTREMITIES: No clubbing, anasarca, 1-2+ pitting edema involving upper and lower extremities, abdominal wall, upper thighs no cyanosis, 2+ pulses and upper and lower extremities. MUSCULOSKELETAL: Muscle strength and tone normal. SPINE: No scoliosis or deformity SKIN: No rashes CENTRAL NERVOUS SYSTEM: Lethargic, requires repeated verbal and tactile stimulation to arouse, No focal deficits, tone is normal in all 4 extremities. - Labs CBC & Chem 7: 03/24/20 07:39 03/24/20 07:39 Labs: Abnormal Lab Results - Last 24 Hours (Table) 03/23/20 03/23/20 03/23/20 Range/Units 16:39 20:18 22:57 WBC (3.8-10.6) k/uL RBC (3.80-5.40) m/uL Hgb (11.4-16.0) gm/dL Hct (34.0-46.0) % MCH (25.0-35.0) pg MCHC (31.0-37.0) g/dL RDW (11.5-15.5) % Plt Count (150-450) k/uL Neutrophils # (1.3-7.7) k/uL Lymphocytes # (1.0-4.8) k/uL Potassium (3.5-5.1) mmol/L Carbon Dioxide (22-30) mmol/L BUN (7-17) mg/dL Glucose (74-99) mg/dL POC Glucose (mg/dL) 186 H 269 H 194 H (75-99) mg/dL Calcium (8.4-10.2) mg/dL ALT (4-34) U/L Total Protein (6.3-8.2) g/dL Albumin (3.5-5.0) g/dL 03/24/20 03/24/20 03/24/20 Range/Units 06:56 07:39 07:39 WBC 14.3 H (3.8-10.6) k/uL RBC 3.17 L (3.80-5.40) m/uL Hgb 7.4 L (11.4-16.0) gm/dL Hct 26.7 L (34.0-46.0) % MCH 23.2 L (25.0-35.0) pg MCHC 27.6 L (31.0-37.0) g/dL RDW 21.2 H (11.5-15.5) % Plt Count 147 L (150-450) k/uL Neutrophils # 12.9 H (1.3-7.7) k/uL Lymphocytes # 0.5 L (1.0-4.8) k/uL Potassium 3.4 L (3.5-5.1) mmol/L Carbon Dioxide 38 H (22-30) mmol/L BUN 21 H (7-17) mg/dL Glucose 120 H (74-99) mg/dL POC Glucose (mg/dL) 149 H (75-99) mg/dL Calcium 7.6 L (8.4-10.2) mg/dL ALT 73 H (4-34) U/L Total Protein 4.1 L (6.3-8.2) g/dL Albumin 2.2 L (3.5-5.0) g/dL 03/24/20 Range/Units 11:21 WBC (3.8-10.6) k/uL RBC (3.80-5.40) m/uL Hgb (11.4-16.0) gm/dL Hct (34.0-46.0) % MCH (25.0-35.0) pg MCHC (31.0-37.0) g/dL RDW (11.5-15.5) % Plt Count (150-450) k/uL Neutrophils # (1.3-7.7) k/uL Lymphocytes # (1.0-4.8) k/uL Potassium (3.5-5.1) mmol/L Carbon Dioxide (22-30) mmol/L BUN (7-17) mg/dL Glucose (74-99) mg/dL POC Glucose (mg/dL) 252 H (75-99) mg/dL Calcium (8.4-10.2) mg/dL ALT (4-34) U/L Total Protein (6.3-8.2) g/dL Albumin (3.5-5.0) g/dL Microbiology - Last 24 Hours (Table) 03/23/20 08:15 Urine Culture - Preliminary Urine,Voided Gram Neg Bacilli Assessment and Plan Plan: Assessment: #1. Acute on chronic hypoxic and hypercapnic respiratory failure, multifactorial secondary to underlying COPD, COPD exacerbation and acute on chronic diastolic congestive heart failure #2. Acute blood loss anemia related to lower GI bleeding, patient started passing maroon-colored stools yesterday on 03/14/2020, requiring transfusion with 3 units of packed red blood cells. Today's hemoglobin is 7.4 with no recurrence of GI bleeding. Status post EGD with no active bleeding #3. Acute exacerbation of COPD, in the patient with baseline FEV1 of 42% of predicted and diffusion capacity of 45% of predicted #4. Chronic cor pulmonale, and worsening right-sided congestive heart failure #5. Hypothyroidism #6. Severe pulmonary hypertension with a PA pressure of 76 mmHg, moderate tricuspid regurgitation, and mild mitral regurgitation #7. Degenerative joint disease #8. Type 2 diabetes mellitus #9. Former smoker #10. History of nephrolithiasis #11. Hyponatremia, related to hypervolemia of acute exacerbation of CHF, improved #12. Metabolic alkalosis secondary to aggressive diuresis and hypokalemia #13. Gram-negative urinary tract infection, final culture is pending, currently, and Rocephin Plan: This chest x-ray has been reviewed showing right lung opacity asthma related to atelectasis, patient denies any fever or chills, she is still bronchospastic and significantly swollen, we'll have to continue on IV diuretics for another 24 hours, we'll add 2 doses of IV Diamox, correct hypokalemia per protocol, continue antibiotics for urinary tract infection, we'll continue to follow I performed a history & physical examination of the patient and discussed their management with my nurse practitioner, Taylor Sheriff. I reviewed the nurse practitioner's note and agree with the documented findings and plan of care. Lung sounds are positive for diminished breath sounds. The findings and the impression was discussed with the patient. I attest to the documentation by the nurse practitioner. Time with Patient: Less than 30
--- NOTE | 2020-03-24 15:18 | PN ---
PROGRESS NOTE Patient is seen for followup for hyponatremia and volume overload. She remains on IV push Lasix. Serum sodium has improved. It is at 137. Renal function remains stable, creatinine 0.6. PHYSICAL EXAMINATION: On examination today, blood pressure was 118/66, heart rate 64 per minute. Patient is afebrile. EXAMINATION OF THE HEART: S1 and S2. EXAMINATION OF LUNGS: Bilateral breath sounds are heard. ABDOMEN: Soft, non-tender. Examination of lower extremities shows edema 2+ bilaterally. TESTING AND REGULATING TECHNICIAN exam is grossly intact. LABS: Labs show sodium 137, potassium 3.4, BUN 21, creatinine 0.6. ASSESSMENT: 1. Hyponatremia, mainly hypervolemic, currently improved. Continue with IV Lasix. 2. Severe volume overload, now improved. 3. Diastolic congestive heart failure, acute on top of chronic. 4. Chronic obstructive pulmonary disease exacerbation. 5. Severe pulmonary hypertension and chronic lower extremity edema. 6. History of nephrolithiasis. PLAN: Continue with IV Lasix. Replace potassium and maintain salt and fluid restriction. MMODL / IJN: [id number] /
[2020-03-24 16:28] LABS: Glucose,Whole Blood 337 mg/dL (75-99)
[2020-03-24 20:54] LABS: Glucose,Whole Blood 328 mg/dL (75-99)
--- NOTE | 2020-03-24 21:45 | PN ---
PROGRESS NOTE DATE OF DICTATION: March 24, 2020 Patient is a 69-year-old pleasant white female admitted to hospital with acute upper GI bleed and exacerbation of COPD. She was transferred to the intensive care unit yesterday. She is feeling much better, significantly improved. She had 2 bowel movements this morning, brown in color. No active bleeding. PHYSICAL EXAMINATION: Blood pressure is 140/61, pulse rate 80, temperature 100. HEENT examination unremarkable. Conjunctivae pink. Sclerae anicteric. Oral cavity no lesions. NECK no JVD or lymph node enlargement. RESPIRATORY: Decreased breath sounds bilaterally. HEART: Regular rate and rhythm. ABDOMEN: Soft. Bowel sounds are positive. No organomegaly. EXTREMITIES: No pedal edema. Neuro: She is alert, oriented to name and time. LABS: WBC 14.3, hemoglobin 7.4, platelets 144. BUN and creatinine 21 and 1.61 respectively. IMPRESSION: 1. Acute upper gastrointestinal bleed status post EGD six days go that showed a duodenal bulbar ulcer. The patient remains on Protonix 40 mg twice daily. No active bleeding noted. 2. Exacerbation of chronic obstructive pulmonary disease/congestive heart failure, gradually improving. 3. Gram negative urinary tract infection on broad-spectrum antibiotics. RECOMMENDATION: 1. Continue with Protonix 40 mg twice daily. 2. CBC on a daily basis. 3. Continue broad-spectrum antibiotics. 4. We will follow with you closely. MMODL / IJN: [id number] /
[2020-03-24] MEDS: ARIPiprazole 5 MG TAB PO SCH (22:30)
[2020-03-25] MEDS: FUROSEMIDE 10 MG/ML 4 ML VIAL IV SCH ×3 (00:06→16:39)
[2020-03-25 05:09] LABS: Anisocytosis Moderate; Basophils % (A) 0 %; Eosinophils # (A) 0.1 k/uL (0-0.7); Eosinophils % (A) 1 %; HCT 23.9 % (34.0-46.0); Hypochromasia Marked; Lymphocytes # (A) 0.5 k/uL (1.0-4.8); Lymphocytes % (A) 4 %; MCH 23.5 pg (25.0-35.0); MCHC 28.3 g/dL (31.0-37.0); MCV 82.9 fL (80.0-100.0); Mean Platelet Volume 9.8; Microcytosis Slight; Monocytes # (A) 0.5 k/uL (0-1.0); Monocytes % (A) 5 %; Neutrophils # (A) 10.3 k/uL (1.3-7.7); Neutrophils % (A) 88 %; Platelet Count 137 k/uL (150-450); Poikilocytosis Moderate; RBC 2.88 m/uL (3.80-5.40); RDW 22.3 % (11.5-15.5); WBC 11.6 k/uL (3.8-10.6)
[2020-03-25 05:17] LABS: HGB 6.8 gm/dL (11.4-16.0)
[2020-03-25] MEDS: LEVOTHYROXINE 100 MCG TAB PO SCH (06:03)
[2020-03-25 06:58] LABS: Glucose,Whole Blood 151 mg/dL (75-99)
[2020-03-25] MEDS: INSULIN ASPART (NovoLOG) 100 UNIT/ML VIAL SQ SCH ×4 (07:58→20:47)
[2020-03-25] MEDS: BUDESONIDE 1 MG/2 ML NEBU INHALATION SCH ×2 (08:17→19:56)
[2020-03-25] MEDS: IPRATROPIUM-ALBUTEROL 3 ML NEB INHALATION SCH ×4 (08:17→19:56)
[2020-03-25] MEDS: FORMOTEROL FUMARATE 20 MCG/2 ML NEBU INHALATION SCH ×2 (08:17→19:56)
--- NOTE | 2020-03-25 08:24 | CDI ---
Documentation Clarification Form Date: 03/25/2020 08:07:39 AM From: Melina Elizalde CCS, CCDS Admit Date: 03/11/2020 11:07:00 PM Patient Name: Ban Estrada Visit Number: [id number] Discharge Date: ATTENTION: The Clinical Documentation Specialists (CDI) and [facility] Coding Staff appreciate your assistance in clarifying documentation. Please respond to the clarification below the line at the bottom and electronically sign. The CDI & [facility] Coding staff will review the response and follow-up if needed. Please note: Queries are made part of the Legal Health Record. If you have any questions, please contact the author of this message via ITS. Dr. Christopher Cho: Asthma is documented in the 03/11 ED Note under the patient's past medical history. Per the 03/11 History & Physical: "Asthma Exacerbation" with history of asthma is documented. Asthma is also documented in the 03/12 Pulmonary Consult, the 03/13 Nephrology Consult, the 03/13 Cardiology Consult and the 03/15 GI Consult in the patient's past medical history. History/risk factors: COPD, Diastolic CHF, Chronic Hypoxic & Hypercapnic Respiratory Failure, DM, Hyperlipidemia, Hypertension, Osteoarthritis, Morbid Obesity w/BMI >40 and current Smoker. Clinical Indicators: Presented to the ED on 03/11 with SOB, cough, expiratory wheezing & generalized swelling. Admitted with Acute on Chronic Hypoxic & Hypercapnic Respiratory Failure, Acute Exacerbation Diastolic CHF & Acute Exacerbation of COPD. RAD: 03/11 CXR: CHF appears slightly worse, increased pleural fluid. VS 03/11: R 18 - 10 - 22 (SOB), PO 86 RA - 99 4Lnc Home Meds include: INH Albuterol, Lasix, Accolate, Aldactone Treatment on admission: IV Lasix, INH Albuterol, IV Solumedrol, O2 4Lnc, po Singulair In your professional opinion, can you please further specify the following, if known? With: o Acute Exacerbation o Other, please specify ___ o Unable to determine Severity: o Mild intermittent o Mild persistent o Moderate persistent o Severe persistent o Other, please specify ____ o Unable to determine Form or Type: o Cough variant o Exercise induced bronchospasm o Extrinsic allergic o Idiosyncratic o Intrinsic nonallergic o Late-onset o Mixed o Other, please specify____ o Unable to determine (Last Revision: November 2017) Mild intermittent, stable MTDD
--- NOTE | 2020-03-25 08:53 | CDI ---
Likely cardiogenic shock, not septic shock Documentation Clarification Form Date: 03/25/2020 08:33:00 AM From: Melina Elizalde CCS, CCDS Admit Date: 03/11/2020 11:07:00 PM Patient Name: Ban Estrada Visit Number: [id number] Discharge Date: ATTENTION: The Clinical Documentation Specialists (CDI) and [facility] Coding Staff appreciate your assistance in clarifying documentation. Please respond to the clarification below the line at the bottom and electronically sign. The CDI & [facility] Coding staff will review the response and follow-up if needed. Please note: Queries are made part of the Legal Health Record. If you have any questions, please contact the author of this message via ITS. Dr. Edda Vick: The patient presented to the ED on 03/11 with SOB, per the History & Physical she was hypoxic with ABGs indicating Acute Hypoxic Respiratory Failure. Per the 03/13 CXR: Developing right basilar airspace disease may reflect confluent edema or pneumonia. Per the 03/14 Attending Progress Note: Possible underlying pneumonia. History/Risk Factors: Diastolic CHF, Angina, Asthma, COPD, DM, Hyperlipidemia, Hypertension, Obesity with BMI 43.3, Smoker. Clinical Indicators: 69 yo female, presented to the ED on 03/11 with SOB, increased swelling to her extremities. Patient is on home O2 at night & takes Lasix for CHF. Diagnosed with CHF exacerbation & COPD Exacerbation. Patient was intubated on vent from 03/16 to 03/18, required Levophed on 03/17. Vital signs 03/11: T 97.8, P 60, R 18 - 10* - 22 (SOB); BP 153/78, PO 86 RA - 99 4Lnc. Vital signs 03/13: T 97.2*, P 58*, BP 145/63-119/57-82/47, PO 94 on BiPAP. LAB 03/11: WBC 11.2^, Hgb 9.8*, Neut 8.9^, BNP 8000 03/11 ABG: pH 7.12, pCO2 83^^, pO2 135^, HCO3 27^, Total CO2 29^, O2 Sat 98.4^. LAB 03/13: WBC 3.1* 03/14 Blood culture: negative (final); 03/16 Sputum culture: negative (final). 03/13 UA: cloudy, 1+ Protein, Trace Blood, Large Esterase, WBC 102^ 03/23 UA: cloudy, Trace Protein, Trace Blood, Large Esterase, WBC >182^ RAD 03/11: CXR: increased pulmonary vascular congestion & pleural fluid. 03/13 CXR: Right basilar airspace disease may represent confluent edema or pneumonia. 03/15 CXR: Correlate for developing LLL pneumonia. 03/18 CXR: May be atelectasis, correlate to exclude pneumonia. Treatment 03/11: IV Lasix, INH Albuterol, IV Solumedrol. Per the 03/20 GI Progress Note: "Continue broad spectrum antibiotics." PO Zithromax ordered on 03/12: not given. In your professional opinion, please clarify if these findings signify one of the following conditions, whether the condition is POA, and cause, if known: Sepsis ruled out Sepsis ruled in, please specify cause if known: o Severe Sepsis o Septic Shock o Other Shock, please specify: Other, please specify Unable to determine Present on Admission: Yes OR No (Last Revision: November 2017) MTDD
--- NOTE | 2020-03-25 09:07 | CDI ---
Stage 1 Pressure Injury or Decubitus Ulcer (intact skin, non-blanching redness of local area) Documentation Clarification Form Date: 03/25/2020 08:57:05 AM From: Melina Elizalde CCS, CCDS Admit Date: 03/11/2020 11:07:00 PM Patient Name: Ban Estrada Visit Number: [id number] Discharge Date: ATTENTION: The Clinical Documentation Specialists (CDI) and [facility] Coding Staff appreciate your assistance in clarifying documentation. Please respond to the clarification below the line at the bottom and electronically sign. The CDI & [facility] Coding staff will review the response and follow-up if needed. Please note: Queries are made part of the Legal Health Record. If you have any questions, please contact the author of this message via ITS. Dr. Edda Vick: A Stage I Hospital Acquired Pressure Injury is documented by nursing beginning on 03/17. History/Risk Factors: Asthma, COPD, DM II, Hyperlipidemia, Hypertension, Osteoarthritis, Chronic Hypoxic & Hypercapnic Respiratory Failure, Morbid Obesity w/BMI >40, Chronic back pain & smoker. Clinical Indicators: Presented to the ED on 03/11 with SOB & generalized swelling. Location: Right Buttock Wound description: Stage I, 1 cm length, 1.3 cm Width. Treatment: Respiratory treatment for Diastolic CHF Exacerbation & COPD Exacerbation. Nystatin Cream applied to right buttock. Consults: Infectious Disease is not consulted. Elements for accurate and compliant documentation of an ulcer: *The location/laterality of the ulcer *Etiology (decubitus/pressure, diabetic, PVD) *Stage I-IV, Unstageable, Suspected Deep Tissue Injury (To the deepest stage) *If the ulcer was present at admission (POA) or occurred after admission In your professional opinion, can you please clarify the diagnosis, location, laterality and whether present on admission (POA): Stage 1 Pressure Injury or Decubitus Ulcer (intact skin, non-blanching redness of local area) Other condition, please specify Unable to determine Please indicate etiology of pressure ulcer (if known). (Last Revision: May 2017) MTDD
[2020-03-25] MEDS: PANTOPRAZOLE 40 MG/10 ML VIAL IVP SCH ×2 (10:43→20:46)
[2020-03-25] MEDS: ESCITALOPRAM 20 MG TAB PO SCH (10:56)
[2020-03-25] MEDS: ATORVASTATIN 40 MG TAB PO SCH (10:58)
[2020-03-25] MEDS: PANTOPRAZOLE 40 MG TABLET PO SCH (10:58)
[2020-03-25] MEDS: predniSONE 20 MG TAB PO SCH (10:58)
[2020-03-25] MEDS: NYSTATIN 100,000UNIT/GM CREAM 30 GM TUBE TOPICAL SCH ×3 (11:02→21:30)
[2020-03-25] MEDS: METOPROLOL TARTRATE 25 MG TAB PO SCH ×3 (11:02→21:30)
[2020-03-25 11:44] LABS: Glucose,Whole Blood 266 mg/dL (75-99)
--- NOTE | 2020-03-25 12:32 | P.PN ---
Subjective Progress Note Date: 03/25/20 Principal diagnosis: Acute on chronic hypoxic and hypercapnic respiratory failure This is a 69-year-old female with history of severe COPD, former smoker, chronic cor pulmonale, hypertension, hypothyroidism, morbid obesity, type 2 diabetes, diastolic congestive heart failure, patient was brought into the emergency room with a few days' history of increased shortness of breath and increase legs swelling. Patient actually was noted to have anasarca in the ER. Chest x-ray showed evidence of congestive heart failure, and small bilateral pleural effusions. ABG showed a pO2 of 135 pCO2 of 83 pH of 7.12 and this was on 36% FiO2. Patient was placed on BiPAP, and she was also noted to have hyponatremia and hyperkalemia. As well as significantly elevated proBNP level. Considering the findings, patient was placed on diuretics, bronchodilators, and I was asked to see her on consultation. Patient was evaluated in the ER, she is on BiPAP, not much history could be obtained from the patient. Reevaluated today in ICU on 03/13/20, patient remains in the ICU, she was on BiP AP through the night, however this morning she was switched to a nasal cannula and she is presently at 2 L/m. Patient seems to be comfortable, she is more awake, denies any cough wheezing or shortness of breath denies any chest pain. Remains on Lasix at 40 mg IV push every 8 hours, she is also on bronchodilators, steroids, continues to have significant swelling/anasarca. Patient has been in negative balance over the last 24 hours around 2 L. CBC is showing WBC of 3.1 hemoglobin is 8.9 sodium is 127 potassium is 5.2, BUN is 47 creatinine is improved down to 0.87 in spite of diuresis. Patient was reevaluated today on 03/14/20, remains in the intensive care unit, remains on Lasix drip at 10 mg per hour. She has positive urine and blood cultures. Sodium remains low and she was given tolvaptan by nephrology today. Pulmonary-haas, the patient is feeling better, breathing easier, presently on 2 L nasal cannula. And her O2 saturations is in the low 90s. She is hemodynamically stable, and she is in sinus rhythm. Her labs were all reviewed and her chest x-ray was reviewed. Chest x-ray continues to show evidence of interstitial edema, strongly doubt pneumonia. BUN is 58 creatinine 0.89. Hemoglobin today is 8.5. On 03/15/2020 patient seen in follow-up in the intensive care unit, she is lethargic, but arousable to verbal and tactile stimulation, she is on 2 L of oxygen her pulse oximetry is 90-92%, she is afebrile, hemodynamically patient is stable, 0.9 was seen at a rate of 20 ML per hour, and Lasix drip is at 10 mg per hour. She is in sinus mechanism with a rate of 74 BPM. Patient was admitted to the hospital on 03/11/2020 with a diagnosis of CHF, was started on Lasix infusion, however last night patient also started passing large burgundy colored stools, and hemoglobin came down to 5.5 on this morning's labs. 2 units of packed red blood cells were ordered, and one has already been infused. The second one is pending. Patient has produced 4 L in the urine output, he still has significant amount of upper and lower extremity edema, edema in her upper thighs and abdominal wall. Abdomen is distended, firm, with pitting edema, however it is nontender. Patient is on baby aspirin daily, which was placed on hold today, patient is not on any other anticoagulation. Today's labs have been reviewed, showing white blood cell count of 8.7, hemoglobin is 5.5 as mentioned above, platelet count is 332, serum sodium is 127 with potassium of 5.4, chloride is 95, CO2 26, B1 is 82, creatinine is 0.85. Blood gas was reviewed showing pO2 of 79, pCO2 74, and pH of 7.25 consistent with acute hypercapnic respiratory failure related to rule out overload secondary to acute exacerbation of CHF with diastolic dysfunction On 03/24/2020 patient seen in follow-up on selective care unit, she was transferred out of intensive care unit yesterday, she has remained stable o vernight, she is currently on 2 L of oxygen her pulse ox is 96%, hemodynamically she remains stable, denies any specific complaints, breathing seems to be comfortable, she still has some wheezing and congestion, she remains on bronchodilators, empiric antibiotics, and IV Lasix, she still significantly swollen in her upper and lower extremities, abdominal wall, her edema has improved, but there is still some residual swelling. He is in -1.7 L net fluid balance over the last 24 hours. Today's labs have been reviewed showing bilateral: 14.3, hemoglobin is 7.4, sodium is 137, potassium is 3.4, chloride is 99, CO2 is 38, BUN is 21, creatinine 0.61. Urinalysis was sent yesterday showing evidence of urinary tract infection, urine culture showing gram-negative bacilli, and patient is currently on Rocephin. Denies fever or chills. On 03/25/2020 patient seen in follow-up on general medical surgical floor, she is awake and alert, she is breathing easier, she is participating with physical therapy, she is getting ready to get up out of bed and sit in a chair. She continues to diurese, she is in -1.7 L fluid balance over the last 24 hours, abdominal wall and lower extremity edema improving. Today's labs have been reviewed, CBC shows hemoglobin of 6.8, and patient is receiving 1 unit of packed red blood cells. Patient is on Rocephin for Klebsiella pneumonia urinary tract infection, patient is afebrile. Remains on Lasix 40 mg every 8 hours, and oral Diamox, BMP is pending Objective - Vital Signs Vital signs: Vital Signs Temp 98.1 F 03/25/20 10:37 Pulse 77 03/25/20 11:37 Resp 17 03/25/20 10:37 BP 118/60 03/25/20 10:37 Pulse Ox 96 03/25/20 10:37 Intake & Output 03/24/20 03/25/20 03/25/20 18:59 06:59 18:59 Intake Total 50 310 Output Total 1775 460 Balance 50 -1775 -150 Weight 98.2 kg Intake: IV 50 cefTRIAXone 1 gm In 50 Sodium Chloride 0.9% 50 ml @ 100 mls/hr IVPB Q12HR [facility] Rx#:[id number] Blood Product 310 Rc As-1 Unit 310 [id number] Output: Urine 1775 460 Other: Voiding Method Indwelling Catheter Indwelling Catheter Indwelling Catheter # Voids 1 # Bowel Movements 1 1 1 ABP, PAP, CO, CI - Last Documented Arterial Blood Pressure 116/74 - Exam GENERAL EXAM: 69-year-old white female, on 2 L of oxygen with pulse ox of 99%, awake and alert, comfortable in no apparent distress. HEAD: Normocephalic/atraumatic. EYES: Normal reaction of pupils, equal size. Conjunctiva pink, sclera white. NOSE: Clear with pink turbinates. THROAT: No erythema or exudates. NECK: No masses, no JVD, no thyroid enlargement, no adenopathy. CHEST: No chest wall deformity. Symmetrical expansion. LUNGS: Equal air entry with diminished breath sounds at the bases, diffuse wheezes CVS: Regular rate and rhythm, normal S1 and S2, no gallops, no murmurs, no rubs ABDOMEN: Soft, nontender. No hepatosplenomegaly, normal bowel sounds, no guarding or rigidity. EXTREMITIES: No clubbing, anasarca, 1-2+ pitting edema involving upper and lower extremities, abdominal wall, upper thighs no cyanosis, 2+ pulses and upper and lower extremities. MUSCULOSKELETAL: Muscle strength and tone normal. SPINE: No scoliosis or deformity SKIN: No rashes CENTRAL NERVOUS SYSTEM: Lethargic, requires repeated verbal and tactile stimulation to arouse, No focal deficits, tone is normal in all 4 extremities. - Labs CBC & Chem 7: 03/25/20 04:53 03/24/20 07:39 Labs: Abnormal Lab Results - Last 24 Hours (Table) 03/24/20 03/24/20 03/25/20 Range/Units 16:27 20:53 04:53 WBC 11.6 H (3.8-10.6) k/uL RBC 2.88 L (3.80-5.40) m/uL Hgb 6.8 L* (11.4-16.0) gm/dL Hct 23.9 L (34.0-46.0) % MCH 23.5 L (25.0-35.0) pg MCHC 28.3 L (31.0-37.0) g/dL RDW 22.3 H (11.5-15.5) % Plt Count 137 L (150-450) k/uL Neutrophils # 10.3 H (1.3-7.7) k/uL Lymphocytes # 0.5 L (1.0-4.8) k/uL POC Glucose (mg/dL) 337 H 328 H (75-99) mg/dL Crossmatch 03/25/20 03/25/20 03/25/20 Range/Units 05:59 06:57 11:42 WBC (3.8-10.6) k/uL RBC (3.80-5.40) m/uL Hgb (11.4-16.0) gm/dL Hct (34.0-46.0) % MCH (25.0-35.0) pg MCHC (31.0-37.0) g/dL RDW (11.5-15.5) % Plt Count (150-450) k/uL Neutrophils # (1.3-7.7) k/uL Lymphocytes # (1.0-4.8) k/uL POC Glucose (mg/dL) 151 H 266 H (75-99) mg/dL Crossmatch See Detail Microbiology - Last 24 Hours (Table) 03/23/20 08:15 Urine Culture - Final Urine,Voided Klebsiella pneumoniae Assessment and Plan Plan: Assessment: #1. Acute on chronic hypoxic and hypercapnic respiratory failure, multifactorial secondary to underlying COPD, COPD exacerbation and acute on chronic diastolic congestive heart failure #2. Acute blood loss anemia related to lower GI bleeding, patient started passing maroon-colored stools yesterday on 03/14/2020, requiring transfusion with 3 units of packed red blood cells. Today's hemoglobin is 7.4 with no recurrence of GI bleeding. Status post EGD with no active bleeding #3. Acute exacerbation of COPD, in the patient with baseline FEV1 of 42% of predicted and diffusion capacity of 45% of predicted #4. Chronic cor pulmonale, and worsening right-sided congestive heart failure #5. Hypothyroidism #6. Severe pulmonary hypertension with a PA pressure of 76 mmHg, moderate tricuspid regurgitation, and mild mitral regurgitation #7. Degenerative joint disease #8. Type 2 diabetes mellitus #9. Former smoker #10. History of nephrolithiasis #11. Hyponatremia, related to hypervolemia of acute exacerbation of CHF, improved #12. Metabolic alkalosis secondary to aggressive diuresis and hypokalemia #13. Gram-negative urinary tract infection, final culture is pending, currently, and Rocephin Plan: Awaiting results of the BMP, clinically stable, maintaining stable saturations on 2 L, wean FiO2, increase activity as tolerated, less swollen, she continues to diurese, maintaining negative fluid balance, mildly wheezy, continue oral bronchodilators and steroids. Discharge planning is in progress for discharge to [facility] and rehab I performed a history & physical examination of the patient and discussed their management with my nurse practitioner, Taylor Sheriff. I reviewed the nurse practitioner's note and agree with the documented findings and plan of care. Lung sounds are positive for diminished breath sounds. The findings and the impression was discussed with the patient. I attest to the documentation by the nurse practitioner. Time with Patient: Less than 30
--- NOTE | 2020-03-25 12:41 | PN ---
PROGRESS NOTE Patient is seen for followup for hyponatremia, she is currently doing well. Patient is sitting on a bedside chair. Sodium is up to 137 from yesterday. Patient is maintained on IV Lasix. Her hemoglobin had dropped to 6.8. She did get 1 unit of packed RBCs. PHYSICAL EXAMINATION: Today, patient is comfortable, not in any acute distress. Blood pressure 118/60, heart rate 70 per minute, she is afebrile. Examination shows bilateral lower extremity edema 3+. Abdomen is soft, nontender. Breath sounds are heard bilaterally. Heart sounds are heard. [employer] STRATEGIST exam grossly intact. LABS: From yesterday show sodium 137, potassium 3.4. No electrolytes available from today. Hemoglobin was 6.8 g/dL. ASSESSMENT: 1. Hypervolemic hyponatremia, currently improved, maintained on IV Lasix. Will continue with the IV Lasix for now. 2. Hypokalemia associated with diuresis, status post replacement. 3. Anemia, no active bleeding noted. Patient was evaluated by GI. She did have acute GI bleed initially. An EGD done 7 days ago showed a duodenal bulb ulcer. She is currently maintained on Protonix. 4. Klebsiella pneumoniae urinary tract infection. PLAN: Continue with IV Lasix for now. Repeat labs in a.m. MMODL / IJN: [id number] /
[2020-03-25 13:20] LABS: African American GFR (CKD) >90 (>60 ml/min/1.73 sqM); Anion Gap 5 mmol/L; Blood Urea Nitrogen 18 mg/dL (7-17); Calcium 7.5 mg/dL (8.4-10.2); Carbon Dioxide 33 mmol/L (22-30); Chloride 99 mmol/L (98-107); Glucose 215 mg/dL (74-99); Non-African American GFR(CKD) 90 (>60 ml/min/1.73 sqM); Potassium 2.9 mmol/L (3.5-5.1); Sodium 137 mmol/L (137-145)
--- NOTE | 2020-03-25 14:04 | CDI ---
Documentation Clarification Form Date: 03/25/2020 01:55:00 PM From: Melina AcharyaElizaldeLEXIE, CCDS Admit Date: 03/23/2020 04:17:00 PM Patient Name: Sakshi Arteaga Visit Number: [id number] Discharge Date: ATTENTION: The Clinical Documentation Specialists (CDI) and [facility] Coding Staff appreciate your assistance in clarifying documentation. Please respond to the clarification below the line at the bottom and electronically sign. The CDI & [facility] Coding staff will review the response and follow-up if needed. Please note: Queries are made part of the Legal Health Record. If you have any questions, please contact the author of this message via ITS. Dr. Ryley Avila: Per the 03/24 Cardiology Consult: " She does have chronic kidney disease and we'll watch her kidney function very closely." CKD nos is also documented in the patient's past medical history in the 03/23 ED note & the 03/24 Neurology Consult. History/Risk Factors: CAD, CHF, Pneumonia, CKD, OA, FELIPA requiring CPAP (noncompliant), Morbid Obesity w/BMI >50. Clinical Indicators: Presented to the ED on 03/23 via EMS after a fall & episodes of confusion, lied on the ground for approximately 12 hours. Admit per the ED note above. Vital signs 03/23: T 98.6, P 100 - 125^, R 18, BP 133/97, PO 94 2Lnc LAB 03/23: WBC (10.2), Hgb 9.1*, Neut 7.9^, D Dimer 1.36^, K 5.6^, Cl 114^, CO2 19*, BUN 22^, Cr 1.44^. GFR 03/25: 38-43; GFR 09/29/2017: 27-32 RAD: 03/23 CXR: Right infrahilar patchy density noted may reflect developing infiltrate. Treatment: IV fluid 1,000 mls @ 100/hr, IV Azithromycin, IV Rocephin, IV Vasotec, INH Albuterol, IV Symbicort, O2 4Lnc. In order to capture the severity of condition, please clarify the stage of the CKD, if known: CKD Stage 3 (GFR 30-59) CKD Stage 4 (GFR 15-29) Other, please specify Unable to determine (Last Revision: September 2019) MTDD
[2020-03-25] MEDS ORDERED: Potassium Replacement Protocol 1 EACH MISC MISCELLANE PRN (15:01)
[2020-03-25] MEDS: ACETAMINOPHEN TAB 325 MG TAB PO PRN (15:07)
[2020-03-25] MEDS: POTASSIUM CHLORIDE ER 20 MEQ TAB.ER PO SCH ×5 (15:10→21:30)
[2020-03-25 16:41] LABS: Glucose,Whole Blood 299 mg/dL (75-99)
--- NOTE | 2020-03-25 17:55 | P.PN ---
Subjective Progress Note Date: 03/25/20 Principal diagnosis: Patient was seen and examined. No acute events overnight. Patient reports no symptoms. She denies any chest pain, shortness of breath or palpitations. No n ausea or vomiting. No fever or chills. Objective - Vital Signs Vital signs: Vital Signs Temp 98.5 F 03/25/20 15:00 Pulse 74 03/25/20 16:19 Resp 19 03/25/20 15:00 BP 131/56 03/25/20 15:00 Pulse Ox 96 03/25/20 15:00 Intake & Output 03/24/20 03/25/20 03/25/20 18:59 06:59 18:59 Intake Total 50 310 Output Total 1775 460 Balance 50 -1775 -150 Weight 98.2 kg Intake: IV 50 cefTRIAXone 1 gm In 50 Sodium Chloride 0.9% 50 ml @ 100 mls/hr IVPB Q12HR [facility] Rx#:[id number] Blood Product 310 Rc As-1 Unit 310 [id number] Output: Urine 1775 460 Other: Voiding Method Indwelling Catheter Indwelling Catheter Indwelling Catheter # Voids 1 # Bowel Movements 1 1 3 ABP, PAP, CO, CI - Last Documented Arterial Blood Pressure 116/74 - Exam General: [non toxic], [no distress], [appears at stated age] Derm: [warm], [dry] Head: [atraumatic], [normocephalic], [symmetric] Eyes: [EOMI], [no lid lag], [anicteric sclera] Mouth: [no lip lesion], [mucus membranes moist] Cardiovascular: [S1S2 reg], [systolic murmur], [positive DP pulse bilateral], Lungs: [Diffuse crackles bilateral], [no rhonchi, no rales] , [no accessory muscle use] Abdominal: [soft], [ nontender to palpation], [no guarding], [no appreciable organomegaly] Ext: [no gross muscle atrophy], [no edema], [no contractures] Neuro: [no focal neuro deficits] Psych: [Alert], [oriented], [appropriate affect] - Labs CBC & Chem 7: 03/25/20 04:53 03/25/20 12:38 Labs: Abnormal Lab Results - Last 24 Hours (Table) 08/01/0603/25/20 03/25/20 Range/Units 20:53 04:53 05:59 WBC 11.6 H (3.8-10.6) k/uL RBC 2.88 L (3.80-5.40) m/uL Hgb 6.8 L* (11.4-16.0) gm/dL Hct 23.9 L (34.0-46.0) % MCH 23.5 L (25.0-35.0) pg MCHC 28.3 L (31.0-37.0) g/dL RDW 22.3 H (11.5-15.5) % Plt Count 137 L (150-450) k/uL Neutrophils # 10.3 H (1.3-7.7) k/uL Lymphocytes # 0.5 L (1.0-4.8) k/uL Potassium (3.5-5.1) mmol/L Carbon Dioxide (22-30) mmol/L BUN (7-17) mg/dL Glucose (74-99) mg/dL POC Glucose (mg/dL) 328 H (75-99) mg/dL Calcium (8.4-10.2) mg/dL Crossmatch See Detail 03/25/20 03/25/20 03/25/20 Range/Units 06:57 11:42 12:38 WBC (3.8-10.6) k/uL RBC (3.80-5.40) m/uL Hgb (11.4-16.0) gm/dL Hct (34.0-46.0) % MCH (25.0-35.0) pg MCHC (31.0-37.0) g/dL RDW (11.5-15.5) % Plt Count (150-450) k/uL Neutrophils # (1.3-7.7) k/uL Lymphocytes # (1.0-4.8) k/uL Potassium 2.9 L (3.5-5.1) mmol/L Carbon Dioxide 33 H (22-30) mmol/L BUN 18 H (7-17) mg/dL Glucose 215 H (74-99) mg/dL POC Glucose (mg/dL) 151 H 266 H (75-99) mg/dL Calcium 7.5 L (8.4-10.2) mg/dL Crossmatch 08/06/20 Range/Units 16:40 WBC (3.8-10.6) k/uL RBC (3.80-5.40) m/uL Hgb (11.4-16.0) gm/dL Hct (34.0-46.0) % MCH (25.0-35.0) pg MCHC (31.0-37.0) g/dL RDW (11.5-15.5) % Plt Count (150-450) k/uL Neutrophils # (1.3-7.7) k/uL Lymphocytes # (1.0-4.8) k/uL Potassium (3.5-5.1) mmol/L Carbon Dioxide (22-30) mmol/L BUN (7-17) mg/dL Glucose (74-99) mg/dL POC Glucose (mg/dL) 299 H (75-99) mg/dL Calcium (8.4-10.2) mg/dL Crossmatch Microbiology - Last 24 Hours (Table) 03/23/20 08:15 Urine Culture - Final Urine,Voided Klebsiella pneumoniae Assessment and Plan Assessment: Acute hypoxic and hypercapnic respiratory failure in setting of acute COPD and diastolic CHF exacerbations -Status post endotracheal intubation on 03/16 with successful intubation on 03/19 -IV steroid transitioned to oral prednisone -Continue bronchodilators -CXR ordered 03/24 due to ongoing coarse breath sounds and diffuse wheezing, shows possible left lobe pneumonia, we'll continue Rocephin and add azithromycin -Sputum Cx micro with GPC, likely contaminant Hypokalemia -Potassium 2.9 likely related to Lasix, replace via protocol, repeat BMP at 6 PM Acute diastolic heart failure exacerbation with severe pulmonary hypertension -Resume IV diuresis with IV Lasix for another day or 2. Monitor I's and O's closely. -currently on lasix 40mg IV TID Acute blood loss anemia secondary to GI bleeding -Status post 3 units of PRBCs, Hg 6.8 this morning, 1 PRBC ordered, repeat CBC at 6 PM -Continue to monitor CBC daily -Change Protonix to 40 mg IV twice a day -Status post EGD on 03/18 showing nonbleeding duodenal ulcer with mild gastritis and no active bleeding Altered mental status, likely toxo metabolic encephalopathy multifactorial in setting of hypercapnia with delirium on presentation, now resolved Hyperkalemia, resolved -Holding home spironolactone Hyponatremia -Improved Type II DM -Lispro insulin sliding scale blood glucose monitoring Hypothyroidism -Continue with home Synthroid dose DVT prophylaxis -With SCDs CODE STATUS -DNR/DNI [Patient is admitted for CHF exacerbation. On IV diuresis. PRBC ordered for dropping Hg. Replacing potassium. Repeat CBC and BMP at 6 PM. She is pending clinical improvement. Likely DC in 2-3 days.]
[2020-03-25 18:54] LABS: Anisocytosis Moderate; HCT 27.8 % (34.0-46.0); Hypochromasia Marked; MCH 24.3 pg (25.0-35.0); MCHC 28.9 g/dL (31.0-37.0); Mean Platelet Volume 8.1; Microcytosis Slight; Platelet Count 126 k/uL (150-450); Poikilocytosis Moderate; RBC 3.31 m/uL (3.80-5.40); RDW 21.5 % (11.5-15.5); WBC 15.4 k/uL (3.8-10.6)
[2020-03-25 18:58] LABS: African American GFR (CKD) >90 (>60 ml/min/1.73 sqM); Anion Gap 4 mmol/L; Blood Urea Nitrogen 17 mg/dL (7-17); Calcium 7.2 mg/dL (8.4-10.2); Carbon Dioxide 34 mmol/L (22-30); Chloride 98 mmol/L (98-107); Glucose 293 mg/dL (74-99); Non-African American GFR(CKD) >90 (>60 ml/min/1.73 sqM); Sodium 136 mmol/L (137-145)
[2020-03-25] MEDS: AZITHROMYCIN 500 MG TAB PO SCH (20:21)
--- NOTE | 2020-03-25 20:29 | PN ---
PROGRESS NOTE DATE OF DICTATION: March 25, 2020 The patient is a 69-year-old pleasant white female admitted to hospital with exacerbation of chronic obstructive pulmonary disease/congestive heart failure and acute upper GI bleed and was diagnosed with large duodenal ulcer by Dr. King on an upper endoscopy a week ago. She dropped hemoglobin to 6.8 g/dL. However, she denies any active bleeding. She had one dark bowel movement early this morning. She denies any abdominal pain. No nausea, vomiting. PHYSICAL EXAMINATION: Blood pressure is 131/56, pulse rate 72. Temperature 98.5. HEENT examination unremarkable. Conjunctivae pink. Sclerae anicteric. Oral cavity no lesions. Neck no JVD or lymph node enlargement. CHEST was clear to auscultation with decreased breath sounds bilaterally. HEART: Regular rate and rhythm. ABDOMEN: Soft. Bowel sounds are positive. No organomegaly. EXTREMITIES: No pedal edema. SKIN no rashes. NEUROLOGIC: Alert and oriented x3. No focal deficits. LABS: WBC 15.4, hemoglobin 8, platelets 126. This morning hemoglobin was 6.8. IMPRESSION: 1. Acute upper gastrointestinal bleed with drop in hemoglobin to 6.8, but clinically no active bleeding, status post upper endoscopy [address] King and was noted to have a large duodenal bulbar ulcer for which she underwent an injection of epinephrine. Clinically no active bleeding. She he is status post total of 4 units of PRBC transfusion since admission to the hospital. Last hemoglobin 8 g/dL. 2. Exacerbation of congestive heart failure. 3. Exacerbation of chronic obstructive pulmonary disease/pneumonia. 4. History of hypothyroidism. 5. History of anxiety/depression. RECOMMENDATIONS: 1. Continue Protonix 40 mg q.12 hours. 2. Monitor CBC on a daily basis. 3. No plans for any repeat upper endoscopy at the present time since there is no active bleeding. 4. Continue antibiotics. 5. Monitor labs closely. 6. We will follow with you. Thank you for this consultation. MMODL / IJN: [id number] /
[2020-03-25 20:31] LABS: Glucose,Whole Blood 320 mg/dL (75-99)
[2020-03-25] MEDS: ARIPiprazole 5 MG TAB PO SCH (20:46)
[2020-03-26] MEDS: FUROSEMIDE 10 MG/ML 4 ML VIAL IV SCH ×4 (00:07→21:04)
[2020-03-26] MEDS: POTASSIUM CHLORIDE ER 20 MEQ TAB.ER PO SCH ×2 (00:24→01:39)
[2020-03-26 03:22] LABS: Anisocytosis Moderate; Basophils % (A) 0 %; Eosinophils % (A) 0 %; HCT 29.2 % (34.0-46.0); HGB 8.2 gm/dL (11.4-16.0); Hypochromasia Marked; Lymphocytes # (A) 0.5 k/uL (1.0-4.8); Lymphocytes % (A) 4 %; MCH 24.1 pg (25.0-35.0); MCHC 28.2 g/dL (31.0-37.0); MCV 85.3 fL (80.0-100.0); Mean Platelet Volume 9.2; Microcytosis Slight; Monocytes # (A) 0.5 k/uL (0-1.0); Monocytes % (A) 4 %; Neutrophils # (A) 10.9 k/uL (1.3-7.7); Neutrophils % (A) 90 %; Platelet Count 148 k/uL (150-450); Poikilocytosis Marked; RBC 3.42 m/uL (3.80-5.40); RDW 20.8 % (11.5-15.5); WBC 12.1 k/uL (3.8-10.6)
[2020-03-26 03:36] LABS: African American GFR (CKD) >90 (>60 ml/min/1.73 sqM); Anion Gap 3 mmol/L; Blood Urea Nitrogen 17 mg/dL (7-17); Calcium 7.5 mg/dL (8.4-10.2); Carbon Dioxide 34 mmol/L (22-30); Chloride 100 mmol/L (98-107); Glucose 164 mg/dL (74-99); Non-African American GFR(CKD) >90 (>60 ml/min/1.73 sqM); Potassium 3.8 mmol/L (3.5-5.1); Sodium 137 mmol/L (137-145)
[2020-03-26] MEDS: ACETAMINOPHEN TAB 325 MG TAB PO PRN ×2 (04:19→21:13)
[2020-03-26] MEDS: LEVOTHYROXINE 100 MCG TAB PO SCH (06:06)
[2020-03-26 06:46] LABS: Glucose,Whole Blood 149 mg/dL (75-99)
[2020-03-26] MEDS: ATORVASTATIN 40 MG TAB PO SCH (08:18)
[2020-03-26] MEDS: predniSONE 20 MG TAB PO SCH (08:18)
[2020-03-26] MEDS: INSULIN ASPART (NovoLOG) 100 UNIT/ML VIAL SQ SCH ×4 (08:18→21:04)
[2020-03-26] MEDS: METOPROLOL TARTRATE 25 MG TAB PO SCH ×3 (08:19→21:04)
[2020-03-26] MEDS: AZITHROMYCIN 500 MG TAB PO SCH (08:19)
[2020-03-26] MEDS: ESCITALOPRAM 20 MG TAB PO SCH (08:19)
[2020-03-26] MEDS: PANTOPRAZOLE 40 MG/10 ML VIAL IVP SCH ×2 (08:39→21:04)
[2020-03-26] MEDS: BUDESONIDE 1 MG/2 ML NEBU INHALATION SCH ×2 (09:04→20:05)
[2020-03-26] MEDS: IPRATROPIUM-ALBUTEROL 3 ML NEB INHALATION SCH ×4 (09:04→20:05)
[2020-03-26] MEDS: FORMOTEROL FUMARATE 20 MCG/2 ML NEBU INHALATION SCH ×2 (09:05→20:05)
[2020-03-26] MEDS: NYSTATIN 100,000UNIT/GM CREAM 30 GM TUBE TOPICAL SCH ×3 (09:59→21:06)
[2020-03-26] MEDS ORDERED: Potassium Replacement Protocol 1 EACH MISC MISCELLANE PRN (10:59)
[2020-03-26 11:27] LABS: Glucose,Whole Blood 271 mg/dL (75-99)
--- NOTE | 2020-03-26 11:29 | PN ---
PROGRESS NOTE Patient is seen for followup for hyponatremia, currently maintained on IV Lasix. Serum sodium is maintained at about 137. Patient had packed RBCs transfusion yesterday as her hemoglobin had dropped to 6.8 g/dL. No active bleeding noted currently. She did have GI bleed during her initial admission. EGD has shown duodenal ulcer. PHYSICAL EXAMINATION: Today patient is comfortable, awake, she is not in any acute distress. Blood pressure is 138/77, heart rate 67 per minute, she is afebrile. Examination of the heart S1, S2. Examination of the lungs, bilateral breath sounds are heard. Abdomen is soft, obese, nontender. Examination of the lower extremities shows edema 3+ bilaterally. EXPLOITATION ANALYST exam grossly intact. LABS: Show sodium 139, potassium 3.8, chloride 100, CO2 is 34, BUN 17, creatinine 0.6. ASSESSMENT: 1. Hypervolemic hyponatremia currently improved and stable. Maintain IV Lasix. 2. Hypokalemia, status post replacement. Etiology is diuresis. 3. Anemia with gastrointestinal bleed, status post EGD which showed duodenal bulb ulcer. No active bleeding noted. The patient did receive one unit packed RBCs yesterday for hemoglobin of 6.8, currently at 8.2 g/dL. 4. CHF, acute on top of chronic, diastolic, currently improved. PLAN: Continue with IV Lasix. Monitor electrolytes, replace potassium. MMODL / IJN: [id number] /
[2020-03-26] MEDS ORDERED: POTASSIUM CHLORIDE ER 20 MEQ TAB.ER PO SCH (12:00)
--- NOTE | 2020-03-26 12:00 | P.PN ---
Subjective Progress Note Date: 03/26/20 Principal diagnosis: Acute hypoxemic respiratory failure The patient is seen today 03/20/2020 in follow-up in the intensive care unit. She was admitted back on 03/11/2020 with acute hypoxemic respiratory failure secondary to COPD and diastolic congestive heart failure. She had also developed lower GI bleed as well. The patient did develop worsening respiratory failure requiring intubation mechanical ventilatory support on March 16 and successfully extubated on March 18. EGD on March 18 showed small blood and alter that was not active. She is now a DO NOT RESUSCITATE/DO NOT INTUBATE CODE STATUS. She is currently resting comfortably in bed. She is maintaining O2 saturations in the 90s on 2 L/m per nasal cannula. No IV fluids. Today's chest x-ray reveals overall improvement in aeration. Masslike density in the right hilum. Unchanged compared to previous. She is status post 3 units packed red blood cells this admission. Current hemoglobin 8.1. White count 16.6. Sodium 137. Potassium 3.7. Creatinine 0.78. The patient is seen today 03/21/2020 in follow-up in the intensive care unit. She is currently awake and alert in no acute distress sitting up in bed. She is maintaining good O2 saturations in the mid 90s on 2 L/m per nasal cannula. She's afebrile. Hemodynamically stable. Sputum and blood cultures revealed no growth. White count 15.2. Hemoglobin 7.9. Platelets 110,000. Sodium 136. Potassium 4.2. Creatinine 0.75. She remains on bronchodilators, IV Solu- Medrol, oral Lasix, IV Diamox. Chest x-ray reveals borderline cardiomegaly. Some mild vascular construction. Some right perihilar atelectasis. The patient is seen today 03/26/2020 in follow-up on the regular medical floor. She is currently resting comfortably in bed. Awake and alert in no acute distress. Currently maintaining good O2 saturations in the 90s on 2 L/m per na jim cannula. She's been afebrile. She is status post 4 units of packed red blood cells this admission. Current hemoglobin 8.2. Urine culture positive for Klebsiella pneumoniae. White count 12.1. Hemoglobin 8.2. Platelets 148. Sodium 137. Potassium 3.8. Creatinine 0.61. She remains on IV Diamox, IV diuretics. Remains on ceftriaxone and azithromycin. Continued on bronchodilators. She continues with lower extremity edema. Dopplers pending. Objective - Vital Signs Vital signs: Vital Signs Temp 98.2 F 03/26/20 07:00 Pulse 80 03/26/20 09:29 Resp 20 03/26/20 08:00 BP 138/77 03/26/20 07:00 Pulse Ox 98 03/26/20 07:00 Intake & Output 03/25/20 03/26/20 03/26/20 18:59 06:59 18:59 Intake Total 310 400 Output Total 460 800 Balance -150 400 -800 Weight 89.5 kg Intake: Oral 400 Blood Product 310 Rc As-1 Unit 310 [id number] Output: Urine 460 800 Other: Voiding Method Indwelling Catheter Indwelling Catheter Indwelling Catheter # Voids 1 1,200 # Bowel Movements 3 3 ABP, PAP, CO, CI - Last Documented Arterial Blood Pressure 116/74 - Exam GENERAL EXAM: Alert, pleasant 69-year-old female patient, on 2 L nasal cannula, comfortable in no apparent distress. HEAD: Normocephalic. EYES: Normal reaction of pupils, equal size. NOSE: Clear with pink turbinates. THROAT: No erythema or exudates. NECK: No masses, no JVD. CHEST: No chest wall deformity. LUNGS: Equal air entry with few scattered rhonchi. CVS: S1 and S2 normal with no audible murmur, regular rhythm. ABDOMEN: No hepatosplenomegaly, normal bowel sounds, no guarding or rigidity. SPINE: No scoliosis or deformity SKIN: No rashes CENTRAL NERVOUS SYSTEM: No focal deficits, tone is normal in all 4 extremities. EXTREMITIES: There is 1-2+ peripheral edema. No clubbing, no cyanosis. Peripheral pulses are intact. - Labs CBC & Chem 7: 03/26/20 02:52 03/26/20 02:52 Labs: Abnormal Lab Results - Last 24 Hours (Table) 03/25/20 03/25/20 03/25/20 Range/Units 12:38 16:40 18:17 WBC 15.4 H (3.8-10.6) k/uL RBC 3.31 L (3.80-5.40) m/uL Hgb 8.0 L (11.4-16.0) gm/dL Hct 27.8 L (34.0-46.0) % MCH 24.3 L (25.0-35.0) pg MCHC 28.9 L (31.0-37.0) g/dL RDW 21.5 H (11.5-15.5) % Plt Count 126 L (150-450) k/uL Neutrophils # (1.3-7.7) k/uL Lymphocytes # (1.0-4.8) k/uL Sodium (137-145) mmol/L Potassium 2.9 L (3.5-5.1) mmol/L Carbon Dioxide 33 H (22-30) mmol/L BUN 18 H (7-17) mg/dL Glucose 215 H (74-99) mg/dL POC Glucose (mg/dL) 299 H (75-99) mg/dL Calcium 7.5 L (8.4-10.2) mg/dL 03/25/20 03/25/20 03/25/20 Range/Units 18:17 20:27 23:15 WBC (3.8-10.6) k/uL RBC (3.80-5.40) m/uL Hgb (11.4-16.0) gm/dL Hct (34.0-46.0) % MCH (25.0-35.0) pg MCHC (31.0-37.0) g/dL RDW (11.5-15.5) % Plt Count (150-450) k/uL Neutrophils # (1.3-7.7) k/uL Lymphocytes # (1.0-4.8) k/uL Sodium 136 L (137-145) mmol/L Potassium 3.0 L 3.3 L (3.5-5.1) mmol/L Carbon Dioxide 34 H (22-30) mmol/L BUN (7-17) mg/dL Glucose 293 H (74-99) mg/dL POC Glucose (mg/dL) 320 H (75-99) mg/dL Calcium 7.2 L (8.4-10.2) mg/dL 03/26/20 03/26/20 03/26/20 Range/Units 02:52 02:52 06:41 WBC 12.1 H (3.8-10.6) k/uL RBC 3.42 L (3.80-5.40) m/uL Hgb 8.2 L (11.4-16.0) gm/dL Hct 29.2 L (34.0-46.0) % MCH 24.1 L (25.0-35.0) pg MCHC 28.2 L (31.0-37.0) g/dL RDW 20.8 H (11.5-15.5) % Plt Count 148 L (150-450) k/uL Neutrophils # 10.9 H (1.3-7.7) k/uL Lymphocytes # 0.5 L (1.0-4.8) k/uL Sodium (137-145) mmol/L Potassium (3.5-5.1) mmol/L Carbon Dioxide 34 H (22-30) mmol/L BUN (7-17) mg/dL Glucose 164 H (74-99) mg/dL POC Glucose (mg/dL) 149 H (75-99) mg/dL Calcium 7.5 L (8.4-10.2) mg/dL 03/26/20 Range/Units 11:27 WBC (3.8-10.6) k/uL RBC (3.80-5.40) m/uL Hgb (11.4-16.0) gm/dL Hct (34.0-46.0) % MCH (25.0-35.0) pg MCHC (31.0-37.0) g/dL RDW (11.5-15.5) % Plt Count (150-450) k/uL Neutrophils # (1.3-7.7) k/uL Lymphocytes # (1.0-4.8) k/uL Sodium (137-145) mmol/L Potassium (3.5-5.1) mmol/L Carbon Dioxide (22-30) mmol/L BUN (7-17) mg/dL Glucose (74-99) mg/dL POC Glucose (mg/dL) 271 H (75-99) mg/dL Calcium (8.4-10.2) mg/dL Microbiology - Last 24 Hours (Table) 03/23/20 08:15 Urine Culture - Final Urine,Voided Klebsiella pneumoniae Assessment and Plan Assessment: #1. Acute on chronic hypoxic and hypercapnic respiratory failure, multifactorial secondary to underlying COPD, COPD exacerbation and acute on chronic diastolic congestive heart failure. She did require mechanical vent ilatory support from March 16 to 03/18/2020. Currently on 2 L nasal cannula. #2. Acute blood loss anemia related to lower GI bleeding, patient started passing maroon-colored stools on 03/14/2020, requiring transfusion with 4 units of packed red blood cells. Hemoglobin is currently 8.2 this morning. She is status post EGD with no active bleeding noted on 03/18/2020. #3. Acute exacerbation of COPD, in the patient with baseline FEV1 of 42% of predicted and diffusion capacity of 45% of predicted #4. Chronic cor pulmonale, and worsening right-sided congestive heart failure #5. Hypothyroidism #6. Severe pulmonary hypertension, moderate tricuspid regurgitation, and mild mitral regurgitation #7. Degenerative joint disease #8. Type 2 diabetes mellitus #9. Former smoker #10. History of nephrolithiasis #11. Hyponatremia, related to hypervolemia of acute exacerbation of CHF Plan: The patient was seen and evaluated by Dr. Cho Currently stable from the pulmonary standpoint We'll obtain Dopplers of lower extremity to rule out DVT Titrate down the FiO2 as tolerated We'll continue to follow DO NOT RESUSCITATE/DO NOT INTUBATE CODE STATUS I, the cosigning physician, performed a history & physical examination of the patient. Lungs sounds with bilateral scattered rhonchi. Maintaining good O2 saturations in the 90s on 2 L/m per nasal cannula. I discussed the assessment and plan of care with my nurse practitioner, Melany Rodriguez. I attest to the above n ote as dictated by her.
[2020-03-26 12:43] VITALS: BMI 39.8
--- NOTE | 2020-03-26 16:03 | US ---
EXAMINATION TYPE: US venous doppler duplex LE LT DATE OF EXAM: 03/26/2020 3:42 PM COMPARISON: US 09/21/2018 CLINICAL HISTORY: rule out DVT. Extremely limited and difficult exam due to edema. Unable to visualiz e any vessels within the groin or thigh. Could not show compression due to patient pain, unable to pu sh on leg SIDE PERFORMED: Left TECHNIQUE: The lower extremity deep venous system is examined utilizing real time linear array sonog chacorta with graded compression, doppler sonography and color-flow sonography. VESSELS IMAGED: Femoral Vein Popliteal Vein Small Saphenous Vein * Proximal Calf Veins (* superficial vessels) Left Leg: Limited exam. There appears to be color flow in the left popliteal vein, proximal calf vei n, and mid femoral vein IMPRESSION: 1. Extremely limited exam due to soft tissue edema limiting assessment of the venous structures and l imited ability to do compression. As visualized there appears to be color flow documented within the left popliteal, mid femoral vein and proximal calf veins. Other venous structures are nondiagnostic.
[2020-03-26 16:40] LABS: Glucose,Whole Blood 275 mg/dL (75-99)
--- NOTE | 2020-03-26 17:16 | P.PN ---
Subjective Progress Note Date: 03/26/20 Principal diagnosis: Patient was seen and examined. No acute events overnight. Patient reports no symptoms. She denies any chest pain, shortness of breath or palpitations. No n ausea or vomiting. No fever or chills. Patient was seen and examined. No acute events overnight. Patient complains of fatigue. She reports improvement in her breathing. No hemoptysis. She denies any bloody bowel movements or melanotic stools. She denies any chest pain or palpitations. No nausea or vomiting. No fever or chills. Objective - Vital Signs Vital signs: Vital Signs Temp 98.2 F 03/26/20 14:43 Pulse 84 03/26/20 15:22 Resp 21 03/26/20 14:43 BP 147/69 03/26/20 14:43 Pulse Ox 97 03/26/20 14:43 Intake & Output 03/25/20 03/26/20 03/26/20 18:59 06:59 18:59 Intake Total 310 400 240 Output Total 460 1075 Balance -150 400 -835 Weight 89.5 kg 89.5 kg Intake: Oral 400 240 Blood Product 310 Rc As-1 Unit 310 [id number] Output: Urine 460 1075 Other: Voiding Method Indwelling Catheter Indwelling Catheter Indwelling Catheter # Voids 1 1,200 # Bowel Movements 3 3 ABP, PAP, CO, CI - Last Documented Arterial Blood Pressure 116/74 - Exam General: [non toxic], [no distress], [appears at stated age] Derm: [warm], [dry] Head: [atraumatic], [normocephalic], [symmetric] Eyes: [EOMI], [no lid lag], [anicteric sclera] Mouth: [no lip lesion], [mucus membranes moist] Cardiovascular: [S1S2 reg], [systolic murmur], [positive DP pulse bilateral], Lungs: [Diffuse crackles bilateral], [no rhonchi, no rales] , [no accessory muscle use] Abdominal: [soft], [ nontender to palpation], [no guarding], [no appreciable organomegaly] Ext: [no gross muscle atrophy], [no edema], [no contractures] Neuro: [no focal neuro deficits] Psych: [Alert], [oriented], [appropriate affect] - Labs CBC & Chem 7: 03/26/20 02:52 03/26/20 02:52 Labs: Abnormal Lab Results - Last 24 Hours (Table) 03/25/20 03/25/20 03/25/20 Range/Units 18:17 18:17 20:27 WBC 15.4 H (3.8-10.6) k/uL RBC 3.31 L (3.80-5.40) m/uL Hgb 8.0 L (11.4-16.0) gm/dL Hct 27.8 L (34.0-46.0) % MCH 24.3 L (25.0-35.0) pg MCHC 28.9 L (31.0-37.0) g/dL RDW 21.5 H (11.5-15.5) % Plt Count 126 L (150-450) k/uL Neutrophils # (1.3-7.7) k/uL Lymphocytes # (1.0-4.8) k/uL Sodium 136 L (137-145) mmol/L Potassium 3.0 L (3.5-5.1) mmol/L Carbon Dioxide 34 H (22-30) mmol/L Glucose 293 H (74-99) mg/dL POC Glucose (mg/dL) 320 H (75-99) mg/dL Calcium 7.2 L (8.4-10.2) mg/dL 03/25/20 03/26/20 03/26/20 Range/Units 23:15 02:52 02:52 WBC 12.1 H (3.8-10.6) k/uL RBC 3.42 L (3.80-5.40) m/uL Hgb 8.2 L (11.4-16.0) gm/dL Hct 29.2 L (34.0-46.0) % MCH 24.1 L (25.0-35.0) pg MCHC 28.2 L (31.0-37.0) g/dL RDW 20.8 H (11.5-15.5) % Plt Count 148 L (150-450) k/uL Neutrophils # 10.9 H (1.3-7.7) k/uL Lymphocytes # 0.5 L (1.0-4.8) k/uL Sodium (137-145) mmol/L Potassium 3.3 L (3.5-5.1) mmol/L Carbon Dioxide 34 H (22-30) mmol/L Glucose 164 H (74-99) mg/dL POC Glucose (mg/dL) (75-99) mg/dL Calcium 7.5 L (8.4-10.2) mg/dL 03/26/20 03/26/20 03/26/20 Range/Units 06:41 11:27 16:38 WBC (3.8-10.6) k/uL RBC (3.80-5.40) m/uL Hgb (11.4-16.0) gm/dL Hct (34.0-46.0) % MCH (25.0-35.0) pg MCHC (31.0-37.0) g/dL RDW (11.5-15.5) % Plt Count (150-450) k/uL Neutrophils # (1.3-7.7) k/uL Lymphocytes # (1.0-4.8) k/uL Sodium (137-145) mmol/L Potassium (3.5-5.1) mmol/L Carbon Dioxide (22-30) mmol/L Glucose (74-99) mg/dL POC Glucose (mg/dL) 149 H 271 H 275 H (75-99) mg/dL Calcium (8.4-10.2) mg/dL Assessment and Plan Assessment: Acute hypoxic and hypercapnic respiratory failure in setting of acute COPD and diastolic CHF exacerbations -Status post endotracheal intubation on 03/16 with successful intubation on 03/19 -IV steroid transitioned to oral prednisone -Continue bronchodilators -CXR ordered 03/24 due to ongoing coarse breath sounds and diffuse wheezing, shows possible left lobe pneumonia, we'll continue Rocephin and add azithromycin -Sputum Cx micro with GPC, likely contaminant Acute diastolic heart failure exacerbation with severe pulmonary hypertension -Resume IV diuresis with IV Lasix for 1 more day. Monitor I's and O's closely. -Reduce Lasix to 40 mg IV twice a day -Repeat chest x-ray tomorrow morning Acute blood loss anemia secondary to GI bleeding -Status post 4 units PRBC Hg 8.2 this morning. -Continue to monitor CBC daily -Continue Protonix to 40 mg IV twice a day -Status post EGD on 03/18 showing nonbleeding duodenal ulcer with mild gastritis and no active bleeding Altered mental status, likely toxo metabolic encephalopathy multifactorial in setting of hypercapnia with delirium on presentation, now resolved Hyperkalemia, resolved -Holding home spironolactone Hyponatremia -Improved Type II DM -Lispro insulin sliding scale blood glucose monitoring Hypothyroidism -Continue with home Synthroid dose DVT prophylaxis -With SCDs CODE STATUS -DNR/DNI [Patient is admitted for CHF exacerbation. On IV diuresis. She is pending clinical improvement. Repeat CXR tomorrow morning. Likely DC in 1-2 days.]
[2020-03-26 20:52] LABS: Glucose,Whole Blood 293 mg/dL (75-99)
[2020-03-26] MEDS: ARIPiprazole 5 MG TAB PO SCH (21:05)
[2020-03-27 02:05] VITALS: RESP 18
[2020-03-27] MEDS: LEVOTHYROXINE 100 MCG TAB PO SCH (05:47)
[2020-03-27 07:10] LABS: Glucose,Whole Blood 145 mg/dL (75-99)
--- NOTE | 2020-03-27 07:28 | XR ---
EXAMINATION TYPE: XR chest 1V DATE OF EXAM: 03/27/2020 COMPARISON: 03/24/2020 HISTORY: Shortness of breath TECHNIQUE: Single frontal view of the chest is obtained. FINDINGS: A diffuse interstitial pattern with cardiomegaly. There is right-sided area of consolidati on stable in appearance. No pneumothorax. Diffuse osteopenia. Sclerosis involving the proximal left h umerus suspicious for tiny bone infarct. Left basilar subsegmental consolidation. Atherosclerotic janice nge aorta. IMPRESSION: 1. Stable consolidation correlate for atelectasis versus pneumonia.
[2020-03-27] MEDS: FUROSEMIDE 10 MG/ML 4 ML VIAL IV SCH (07:38)
[2020-03-27] MEDS: METOPROLOL TARTRATE 25 MG TAB PO SCH (07:39)
[2020-03-27] MEDS: PANTOPRAZOLE 40 MG/10 ML VIAL IVP SCH (07:39)
[2020-03-27] MEDS: ATORVASTATIN 40 MG TAB PO SCH (07:39)
[2020-03-27] MEDS: AZITHROMYCIN 500 MG TAB PO SCH (07:40)
[2020-03-27] MEDS: NYSTATIN 100,000UNIT/GM CREAM 30 GM TUBE TOPICAL SCH (07:40)
[2020-03-27] MEDS: predniSONE 20 MG TAB PO SCH (07:40)
[2020-03-27] MEDS: INSULIN ASPART (NovoLOG) 100 UNIT/ML VIAL SQ SCH ×2 (07:40→12:18)
[2020-03-27] MEDS: ESCITALOPRAM 20 MG TAB PO SCH (07:40)
[2020-03-27 07:45] VITALS: BP 121/64; TEMP 98.3
[2020-03-27] MEDS: BUDESONIDE 1 MG/2 ML NEBU INHALATION SCH (08:11)
[2020-03-27] MEDS: FORMOTEROL FUMARATE 20 MCG/2 ML NEBU INHALATION SCH (08:12)
[2020-03-27] MEDS: IPRATROPIUM-ALBUTEROL 3 ML NEB INHALATION SCH ×2 (08:20→11:26)
[2020-03-27 10:34] LABS: Anisocytosis Moderate; Basophils % (A) 0 %; Eosinophils # (A) 0.2 k/uL (0-0.7); Eosinophils % (A) 1 %; HCT 29.8 % (34.0-46.0); HGB 8.3 gm/dL (11.4-16.0); Hypochromasia Marked; Lymphocytes # (A) 0.6 k/uL (1.0-4.8); Lymphocytes % (A) 5 %; MCH 24.2 pg (25.0-35.0); MCHC 27.9 g/dL (31.0-37.0); MCV 86.6 fL (80.0-100.0); Mean Platelet Volume 7.9; Microcytosis Slight; Monocytes # (A) 0.5 k/uL (0-1.0); Monocytes % (A) 4 %; Neutrophils # (A) 11.6 k/uL (1.3-7.7); Neutrophils % (A) 89 %; Platelet Count 143 k/uL (150-450); Poikilocytosis Marked; RBC 3.45 m/uL (3.80-5.40); RDW 20.9 % (11.5-15.5)
[2020-03-27 10:49] LABS: African American GFR (CKD) >90 (>60 ml/min/1.73 sqM); Anion Gap 3 mmol/L; Blood Urea Nitrogen 16 mg/dL (7-17); Calcium 7.5 mg/dL (8.4-10.2); Carbon Dioxide 34 mmol/L (22-30); Chloride 101 mmol/L (98-107); Glucose 172 mg/dL (74-99); Non-African American GFR(CKD) >90 (>60 ml/min/1.73 sqM); Potassium 3.1 mmol/L (3.5-5.1); Sodium 138 mmol/L (137-145)
[2020-03-27] MEDS ORDERED: POTASSIUM CHLORIDE ER 20 MEQ TAB.ER PO STA (10:54)
--- NOTE | 2020-03-27 10:55 | P.PN ---
Subjective Patient is seen in follow-up for hyponatremia and volume overload. Nonoliguric. Edema improving. No chest pain or shortness of breath at this time. Currently awake and alert. Vital signs are stable. General: The patient appeared well nourished and normally developed. Intubated. HEENT: Head exam is unremarkable. Neck is without jugular venous distension. LUNGS: Breath sounds decreased. HEART: Regular rate and rhythm. ABDOMEN: Soft, nontender. EXTREMITITES: 1+ edema. Objective - Vital Signs Vital signs: Vital Signs Temp 98.3 F 03/27/20 07:00 Pulse 63 03/27/20 07:00 Resp 18 03/27/20 07:00 BP 121/64 03/27/20 07:00 Pulse Ox 97 03/27/20 07:00 Intake & Output 03/26/20 03/27/20 03/27/20 18:59 06:59 18:59 Intake Total 240 Output Total 1075 2151 Balance -835 -2151 Weight 89.5 kg 86 kg Intake: Oral 240 Output: Urine 1075 2150 Stool 1 Other: Voiding Method Indwelling Catheter Indwelling Catheter Indwelling Catheter # Bowel Movements 1 ABP, PAP, CO, CI - Last Documented Arterial Blood Pressure 116/74 - Labs CBC & Chem 7: 03/27/20 10:13 03/27/20 10:13 Labs: Abnormal Lab Results - Last 24 Hours (Table) 03/26/20 03/26/20 03/26/20 Range/Units 11:27 16:38 20:46 WBC (3.8-10.6) k/uL RBC (3.80-5.40) m/uL Hgb (11.4-16.0) gm/dL Hct (34.0-46.0) % MCH (25.0-35.0) pg MCHC (31.0-37.0) g/dL RDW (11.5-15.5) % Plt Count (150-450) k/uL Neutrophils # (1.3-7.7) k/uL Lymphocytes # (1.0-4.8) k/uL Potassium (3.5-5.1) mmol/L Carbon Dioxide (22-30) mmol/L Glucose (74-99) mg/dL POC Glucose (mg/dL) 271 H 275 H 293 H (75-99) mg/dL Calcium (8.4-10.2) mg/dL 03/27/20 03/27/20 03/27/20 Range/Units 07:04 10:13 10:13 WBC 13.0 H (3.8-10.6) k/uL RBC 3.45 L (3.80-5.40) m/uL Hgb 8.3 L (11.4-16.0) gm/dL Hct 29.8 L (34.0-46.0) % MCH 24.2 L (25.0-35.0) pg MCHC 27.9 L (31.0-37.0) g/dL RDW 20.9 H (11.5-15.5) % Plt Count 143 L (150-450) k/uL Neutrophils # 11.6 H (1.3-7.7) k/uL Lymphocytes # 0.6 L (1.0-4.8) k/uL Potassium 3.1 L (3.5-5.1) mmol/L Carbon Dioxide 34 H (22-30) mmol/L Glucose 172 H (74-99) mg/dL POC Glucose (mg/dL) 145 H (75-99) mg/dL Calcium 7.5 L (8.4-10.2) mg/dL Assessment and Plan Plan: Assessment: 1. Hypervolemic hyponatremia. Stable. 2. Acute GI bleed status post blood transfusion. GI following. Hemoglobin 8.3 today. 3. Acute hypercapnic respiratory failure. Status post extubation March 18. 4. Hypokalemia secondary to diuresis. 5. Volume overload. Improved with diuresis. 6. Acute diastolic CHF with severe pulmonary hypertension. 7. Metabolic alkalosis secondary to diuresis. Stable. Maintained on Diamox. Plan: Maintain IV Lasix and Diamox. Replace potassium. Continue to monitor renal function and urine output.
--- NOTE | 2020-03-27 11:39 | P.DS ---
Providers Date of admission: 03/11/20 23:07 Expected date of discharge: 03/27/20 Attending physician: Mark Manzo MD Consults: 03/11/20 23:32 Consult Physician Routine Consulting Provider: [facility] Consult Reason/Comments: CHF exacerbation Do you want consulting provider notified?: Yes 03/12/20 06:02 Consult Physician Routine Consulting Provider: Christopher Cho Consult Reason/Comments: asthma Do you want consulting provider notified?: Yes, Notify in am 03/12/20 12:02 Consult Physician Routine Consulting Provider: Lisa Rodriguez Consult Reason/Comments: hyperkalemia, hyponatremia Do you want consulting provider notified?: Yes 03/15/20 06:42 Consult Physician Routine Consulting Provider: Gabriella Kessler Consult Reason/Comments: New active GI Bleed. Do you want consulting provider notified?: Yes Primary care physician: [facility] Course: Patient is a 69-year-old female with PMH of asthma, COPD, diabetes mellitus, hypertension, dyslipidemia and hypothyroidism that presented to the ED for shortness of breath that did not improve with home breathing treatments. She also reported history of CHF and worsening swelling in her legs and arms. Patient was found to be anasarca with chest x-ray showing pleural effusion and vascular congestion along with elevated BNP. She is admitted for diastolic CHF exacerbation and workup of anemia, hyperkalemia and hyponatremia. Her breathing continued to worsen and she was transferred to ICU on March 12 for BiPAP. She was diuresed with Lasix 40 mg 3 times a day. Her COPD medications were optimized. Echocardiogram showed EF 50-55% with normal wall motion and elevated right ventricular pressures along with severe pulmonary hypertension. Nephrology was consulted for hyperkalemia and her lisinopril and Aldactone was held. Her hyperkalemia did resolve with conservative management. Her hyponatremia improved with diuresis. She was switched to Lasix drip on March 14. She was also started on Rocephin for treatment of possible UTI and azithromycin was added during her hospital course for possible pneumonia and acute bronchitis. She had acute blood loss on March 15 which required 2 units PRBC transfusion. She was started on Protonix 40 mg IV twice a day and GI was consulted. She was intubated for worsening respiratory status on March 16. She underwent EGD on March 18 which showed nonbleeding duodenal ulcer, mild gastritis. She was transfused a total of 4 units of PRBC during her hospitalization. Her hemoglobin was stable at the time of discharge. She had no melanotic stools or hemoptysis. Patient was extubated on March 19. She was transitioned back to Lasix IV and eventually to oral Lasix for discharge. She was also started on IV Diamox for hypercapnia by pulmonology. PT and OT evaluated the patient and recommended subacute rehab. Patient was seen and examined this morning. No acute events overnight. Patient denies any chest pain, shortness breath or palpitations. No nausea or vomiting. No fever or chills. She reports fatigue. General: [non toxic], [no distress], [appears at stated age] Derm: [warm], [dry] Head: [atraumatic], [normocephalic], [symmetric] Eyes: [EOMI], [no lid lag], [anicteric sclera] Mouth: [no lip lesion], [mucus membranes moist] Cardiovascular: [S1S2 reg], [systolic murmur], [positive DP pulse bilateral], Lungs: [Mild crackles bilateral at the bases, improved from yesterday], [no rhonchi, no rales] , [no accessory muscle use] Abdominal: [soft], [ nontender to palpation], [no guarding], [no appreciable organomegaly] Ext: [no gross muscle atrophy], [no edema], [no contractures] Neuro: [no focal neuro deficits] Psych: [Alert], [oriented], [appropriate affect] Acute hypoxic and hypercapnic respiratory failure in setting of acute COPD and diastolic CHF exacerbations -Status post endotracheal intubation on 03/16 with successful intubation on 03/19 -IV steroid transitioned to oral prednisone, to complete a Medrol Dosepak -Continue bronchodilators -CXR ordered 03/24 due to ongoing coarse breath sounds and diffuse wheezing, shows possible left lobe pneumonia, we'll continue Rocephin and add azithromycin, completed course of antibiotics -Sputum Cx micro with GPC, likely contaminant Hypokalemia -Replace via protocol -Repeat BMP tomorrow morning Acute diastolic heart failure exacerbation with severe pulmonary hypertension -Monitor I's and O's closely. -Transitioned to Lasix 40 mg twice a day Acute blood loss anemia secondary to GI bleeding -Status post 4 units PRBC Hg 8.3 this morning. -Continue to monitor CBC daily -Continue Protonix 40 mg by mouth twice a day -Status post EGD on 03/18 showing nonbleeding duodenal ulcer with mild gastritis and no active bleeding Altered mental status, likely toxo metabolic encephalopathy multifactorial in setting of hypercapnia with delirium on presentation, now resolved Hyperkalemia, resolved -Holding home spironolactone Hyponatremia -Improved Type II DM -Lispro insulin sliding scale blood glucose monitoring Hypothyroidism -Continue with home Synthroid dose DVT prophylaxis -With SCDs CODE STATUS -DNR/DNI [Patient is admitted for CHF exacerbation. Cleared by pulmonology for discharge. We'll transition to oral Lasix. Has received adequate antibiotics for UTI and possible pneumonia/acute bronchitis. Hold aspirin until repeat CBC, then can resume in the outpatient setting. Continue Protonix by mouth. Repeat BMP tomorrow to evaluate potassium. Follow PCP in 3 days. Follow-up with cardiology, pulmonology and GI within 1 week of discharge. Plans on DC to rehab today. This complex discharge took about 45 minutes to complete.] Pertinent Studies: Chest x-ray, echocardiogram, venous Doppler Procedures: Intubation, EGD Patient Condition at Discharge: Stable Plan - Discharge Summary Discharge Rx Participant: Yes New Discharge Prescriptions: New Ipratropium-Albuterol Nebulize [Duoneb 0.5 mg-3 mg/3 ml Soln] 3 ml INHALATION RT-Q2H PRN ml PRN Reason: Shortness Of Breath Or Wheezing Furosemide [Lasix] 40 mg PO BID #60 tablet methylPREDNISolone [Medrol Dose Pack] 4 mg PO DIRECTED #1 pack Formoterol Fumarate [Perforomist] 20 mcg INHALATION RT-BID nebu Pantoprazole Sodium [Protonix] 40 mg PO BID #60 tablet. Budesonide [Pulmicort] 1 mg INHALATION RT-BID ml Continue Zafirlukast [Accolate] 20 mg PO BID metFORMIN HCL [Glucophage] 1,000 mg PO BID ARIPiprazole [Abilify] 5 mg PO HS Atorvastatin [Lipitor] 40 mg PO DAILY #30 tab Metoprolol Tartrate [Lopressor] 25 mg PO TID #90 tab Cholecalciferol [Vitamin D3 (25 Mcg = 1000 Iu)] 1,000 unit PO DAILY Levothyroxine Sodium [Synthroid] 200 mcg PO DAILY Albuterol Sulfate [Ventolin HFA] 1 - 2 puff INHALATION RT-Q6H PRN PRN Reason: Shortness Of Breath Escitalopram [Lexapro] 20 mg PO DAILY HYDROcodone/APAP 7.5-325MG [[place] 7.5-325] 1 tab PO Q6H PRN #12 tab PRN Reason: Pain Discontinued Aspirin 81 mg PO DAILY traZODone HCL 100 mg PO HS PRN PRN Reason: Insomnia Furosemide [Lasix] 20 mg PO DAILY lisinopriL [Zestril] 10 mg PO DAILY amLODIPine [Norvasc] 5 mg PO DAILY 30 Days #30 tab Spironolactone [Aldactone] 50 mg PO DAILY Discharge Medication List Zafirlukast [Accolate] 20 mg PO BID 02/06/14 [History] ARIPiprazole [Abilify] 5 mg PO HS 02/07/18 [History] metFORMIN HCL [Glucophage] 1,000 mg PO BID 02/07/18 [History] Atorvastatin [Lipitor] 40 mg PO DAILY #30 tab 09/10/18 [Rx] Metoprolol Tartrate [Lopressor] 25 mg PO TID #90 tab 09/10/18 [Rx] Cholecalciferol [Vitamin D3 (25 Mcg = 1000 Iu)] 1,000 unit PO DAILY 09/03/19 [History] Levothyroxine Sodium [Synthroid] 200 mcg PO DAILY 09/03/19 [History] Albuterol Sulfate [Ventolin HFA] 1 - 2 puff INHALATION RT-Q6H PRN 03/11/20 [History] Escitalopram [Lexapro] 20 mg PO DAILY 03/11/20 [History] Budesonide [Pulmicort] 1 mg INHALATION RT-BID ml 03/27/20 [Rx] Formoterol Fumarate [Perforomist] 20 mcg INHALATION RT-BID nebu 03/27/20 [Rx] Furosemide [Lasix] 40 mg PO BID #60 tablet 03/27/20 [Rx] HYDROcodone/APAP 7.5-325MG [[place] 7.5-325] 1 tab PO Q6H PRN #12 tab 03/27/20 [Rx] Ipratropium-Albuterol Nebulize [Duoneb 0.5 mg-3 mg/3 ml Soln] 3 ml INHALATION RT-Q2H PRN ml 03/27/20 [Rx] Pantoprazole Sodium [Protonix] 40 mg PO BID #60 tablet. 03/27/20 [Rx] methylPREDNISolone [Medrol Dose Pack] 4 mg PO DIRECTED #1 pack 03/27/20 [Rx] Follow up Appointment(s)/Referral(s): Miguel Siddiqi MD [STAFF PHYSICIAN] - 1 Week Gabriella Kessler MD [STAFF PHYSICIAN] - 1 Week [facility], [NON-STAFF] - As Needed Christopher Cho MD [STAFF PHYSICIAN] - 1 Week Connor Carreon [Primary Care Provider] - 1-2 days Patient Instructions/Handouts: Heart Failure (DC), How to Stop Smoking (DC) Activity/Diet/Wound Care/Special Instructions: Diet: Low-salt Follow-up with PCP within 3 days of discharge. Take all medications as advised. Repeat CBC in 3 days. Hold aspirin until results of repeat CBC. Aspirin can be resumed if hemoglobin is stable thereafter. Take Protonix by mouth. Follow-up with cardiology within 1 week. Follow up with pulmonology within 1 week. Follow up with GI within 1 week. Come back to the ED or call 911 for worsening chest pain, shortness of breath, palpitations, vomiting blood, black stools or dizziness. Aman quiñones once arrived at [facility] Repeat BMP 1 day after discharge to evaluate for hypokalemia. Discharge Disposition: TRANSFER TO SNF/ECF
[2020-03-27 11:42] VITALS: PULSE 80
[2020-03-27 11:56] LABS: Glucose,Whole Blood 329 mg/dL (75-99)
--- NOTE | 2020-03-27 12:31 | P.PN ---
Subjective Progress Note Date: 03/27/20 Principal diagnosis: Acute hypoxemic respiratory failure The patient is seen today 03/20/2020 in follow-up in the intensive care unit. She was admitted back on 03/11/2020 with acute hypoxemic respiratory failure secondary to COPD and diastolic congestive heart failure. She had also developed lower GI bleed as well. The patient did develop worsening respiratory failure requiring intubation mechanical ventilatory support on March 16 and successfully extubated on March 18. EGD on March 18 showed small blood and alter that was not active. She is now a DO NOT RESUSCITATE/DO NOT INTUBATE CODE STATUS. She is currently resting comfortably in bed. She is maintaining O2 saturations in the 90s on 2 L/m per nasal cannula. No IV fluids. Today's chest x-ray reveals overall improvement in aeration. Masslike density in the right hilum. Unchanged compared to previous. She is status post 3 units packed red blood cells this admission. Current hemoglobin 8.1. White count 16.6. Sodium 137. Potassium 3.7. Creatinine 0.78. The patient is seen today 03/21/2020 in follow-up in the intensive care unit. She is currently awake and alert in no acute distress sitting up in bed. She is maintaining good O2 saturations in the mid 90s on 2 L/m per nasal cannula. She's afebrile. Hemodynamically stable. Sputum and blood cultures revealed no growth. White count 15.2. Hemoglobin 7.9. Platelets 110,000. Sodium 136. Potassium 4.2. Creatinine 0.75. She remains on bronchodilators, IV Solu- Medrol, oral Lasix, IV Diamox. Chest x-ray reveals borderline cardiomegaly. Some mild vascular construction. Some right perihilar atelectasis. The patient is seen today 03/26/2020 in follow-up on the regular medical floor. She is currently resting comfortably in bed. Awake and alert in no acute distress. Currently maintaining good O2 saturations in the 90s on 2 L/m per na jim cannula. She's been afebrile. She is status post 4 units of packed red blood cells this admission. Current hemoglobin 8.2. Urine culture positive for Klebsiella pneumoniae. White count 12.1. Hemoglobin 8.2. Platelets 148. Sodium 137. Potassium 3.8. Creatinine 0.61. She remains on IV Diamox, IV diuretics. Remains on ceftriaxone and azithromycin. Continued on bronchodilators. She continues with lower extremity edema. Dopplers pending. The patient is seen today 03/27/2020 in follow-up on the regular medical floor. She is awake and alert in no acute distress. Resting quite comfortably in bed. Feeling a bit better today compared to yesterday. She is maintaining good O2 saturations in the upper 90s on 2 L/m per nasal cannula. She's been afebrile. Hemodynamically stable. She is status post 4 units packed red blood cells this admission. Current hemoglobin 8.3. Platelet count 143,000. Urine culture was positive for Klebsiella pneumoniae. White count 13.0. Sodium 138. Potassium 3.1. Creatinine 0.65. She remains on ceftriaxone, bronchodilators, prednisone. Objective - Vital Signs Vital signs: Vital Signs Temp 98.3 F 03/27/20 07:00 Pulse 80 03/27/20 11:41 Resp 18 03/27/20 07:00 BP 121/64 03/27/20 07:00 Pulse Ox 97 03/27/20 07:00 Intake & Output 03/26/20 03/27/20 03/27/20 18:59 06:59 18:59 Intake Total 240 50 Output Total 1075 2151 Balance -835 -2151 50 Weight 89.5 kg 86 kg Intake: IV 50 cefTRIAXone 1 gm In 50 Sodium Chloride 0.9% 50 ml @ 100 mls/hr IVPB Q12HR [facility] Rx#:[id number] Oral 240 Output: Urine 1075 2150 Stool 1 Other: Voiding Method Indwelling Catheter Indwelling Catheter Indwelling Catheter # Bowel Movements 1 ABP, PAP, CO, CI - Last Documented Arterial Blood Pressure 116/74 - Exam GENERAL EXAM: Alert, pleasant 69-year-old female patient, on 2 L nasal cannula, comfortable in no apparent distress. HEAD: Normocephalic. EYES: Normal reaction of pupils, equal size. NOSE: Clear with pink turbinates. THROAT: No erythema or exudates. NECK: No masses, no JVD. CHEST: No chest wall deformity. LUNGS: Equal air entry with few scattered rhonchi. CVS: S1 and S2 normal with no audible murmur, regular rhythm. ABDOMEN: No hepatosplenomegaly, normal bowel sounds, no guarding or rigidity. SPINE: No scoliosis or deformity SKIN: No rashes CENTRAL NERVOUS SYSTEM: No focal deficits, tone is normal in all 4 extremities. EXTREMITIES: There is 1-2+ peripheral edema. No clubbing, no cyanosis. Peripheral pulses are intact. - Labs CBC & Chem 7: 03/27/20 10:13 03/27/20 10:13 Labs: Abnormal Lab Results - Last 24 Hours (Table) 03/26/20 03/26/20 03/27/20 Range/Units 16:38 20:46 07:04 WBC (3.8-10.6) k/uL RBC (3.80-5.40) m/uL Hgb (11.4-16.0) gm/dL Hct (34.0-46.0) % MCH (25.0-35.0) pg MCHC (31.0-37.0) g/dL RDW (11.5-15.5) % Plt Count (150-450) k/uL Neutrophils # (1.3-7.7) k/uL Lymphocytes # (1.0-4.8) k/uL Potassium (3.5-5.1) mmol/L Carbon Dioxide (22-30) mmol/L Glucose (74-99) mg/dL POC Glucose (mg/dL) 275 H 293 H 145 H (75-99) mg/dL Calcium (8.4-10.2) mg/dL 03/27/20 03/27/20 03/27/20 Range/Units 10:13 10:13 11:54 WBC 13.0 H (3.8-10.6) k/uL RBC 3.45 L (3.80-5.40) m/uL Hgb 8.3 L (11.4-16.0) gm/dL Hct 29.8 L (34.0-46.0) % MCH 24.2 L (25.0-35.0) pg MCHC 27.9 L (31.0-37.0) g/dL RDW 20.9 H (11.5-15.5) % Plt Count 143 L (150-450) k/uL Neutrophils # 11.6 H (1.3-7.7) k/uL Lymphocytes # 0.6 L (1.0-4.8) k/uL Potassium 3.1 L (3.5-5.1) mmol/L Carbon Dioxide 34 H (22-30) mmol/L Glucose 172 H (74-99) mg/dL POC Glucose (mg/dL) 329 H (75-99) mg/dL Calcium 7.5 L (8.4-10.2) mg/dL Assessment and Plan Assessment: #1. Acute on chronic hypoxic and hypercapnic respiratory failure, multifactorial secondary to underlying COPD, COPD exacerbation and acute on chronic diastolic congestive heart failure. She did require mechanical ventilatory support from March 16 to 03/18/2020. Currently on 2 L nasal cannula. #2. Acute blood loss anemia related to lower GI bleeding, patient started passing maroon-colored stools on 03/14/2020, requiring transfusion with 4 units of packed red blood cells. Hemoglobin is currently 8.2 this morning. She is status post EGD with no active bleeding noted on 03/18/2020. #3. Acute exacerbation of COPD, in the patient with baseline FEV1 of 42% of predicted and diffusion capacity of 45% of predicted #4. Chronic cor pulmonale, and worsening right-sided congestive heart failure #5. Hypothyroidism #6. Severe pulmonary hypertension, moderate tricuspid regurgitation, and mild mitral regurgitation #7. Degenerative joint disease #8. Type 2 diabetes mellitus #9. Former smoker #10. History of nephrolithiasis #11. Hyponatremia, related to hypervolemia of acute exacerbation of CHF Plan: The patient was seen and evaluated by Dr. Cho Currently stable from the pulmonary standpoint Complete course of antibiotics Complete a prednisone taper Plan is for subacute rehabilitation I, the cosigning physician, performed a history & physical examination of the patient. Lungs sounds with bilateral scattered rhonchi. Maintaining good O2 sa turations in the 90s on 2 L/m per nasal cannula. I discussed the assessment and plan of care with my nurse practitioner, Melany Rodriguez. I attest to the above note as dictated by her.
--- NOTE | 2020-03-27 13:51 | P.PN ---
Subjective Progress Note Date: 03/26/20 Principal diagnosis: GI bleed Lying in bed, tolerating her diet. No signs or symptoms GI bleeding. Objective - Vital Signs Vital signs: Vital Signs Temp 98.2 F 03/26/20 14:43 Pulse 84 03/26/20 15:22 Resp 21 03/26/20 14:43 BP 147/69 03/26/20 14:43 Pulse Ox 97 03/26/20 14:43 Intake & Output 03/25/20 03/26/20 03/26/20 18:59 06:59 18:59 Intake Total 310 400 240 Output Total 460 1075 Balance -150 400 -835 Weight 89.5 kg 89.5 kg Intake: Oral 400 240 Blood Product 310 Rc As-1 Unit 310 [id number] Output: Urine 460 1075 Other: Voiding Method Indwelling Catheter Indwelling Catheter Indwelling Catheter # Voids 1 1,200 # Bowel Movements 3 3 ABP, PAP, CO, CI - Last Documented Arterial Blood Pressure 116/74 - Exam On physical examination, patient appears comfortable in no apparent distress. HEAD: Normocephalic, atraumatic. EYES: No scleral icterus. No conjunctival injection. MOUTH: No lesions NECK: Trachea midline, no gross abnormalities. CHEST: Decreased air and all campbell. ABDOMEN: Soft. Bowel sounds are positive. No organomegaly. No guarding or rigidity. EXTREMITIES: No pedal edema. SKIN: No rashes, no jaundice. NEUROLOGIC: Awake and oriented - Labs CBC & Chem 7: 03/27/20 10:13 03/27/20 10:13 Labs: Abnormal Lab Results - Last 24 Hours (Table) 03/25/20 03/25/20 03/25/20 Range/Units 18:17 18:17 20:27 WBC 15.4 H (3.8-10.6) k/uL RBC 3.31 L (3.80-5.40) m/uL Hgb 8.0 L (11.4-16.0) gm/dL Hct 27.8 L (34.0-46.0) % MCH 24.3 L (25.0-35.0) pg MCHC 28.9 L (31.0-37.0) g/dL RDW 21.5 H (11.5-15.5) % Plt Count 126 L (150-450) k/uL Neutrophils # (1.3-7.7) k/uL Lymphocytes # (1.0-4.8) k/uL Sodium 136 L (137-145) mmol/L Potassium 3.0 L (3.5-5.1) mmol/L Carbon Dioxide 34 H (22-30) mmol/L Glucose 293 H (74-99) mg/dL POC Glucose (mg/dL) 320 H (75-99) mg/dL Calcium 7.2 L (8.4-10.2) mg/dL 03/25/20 03/26/20 03/26/20 Range/Units 23:15 02:52 02:52 WBC 12.1 H (3.8-10.6) k/uL RBC 3.42 L (3.80-5.40) m/uL Hgb 8.2 L (11.4-16.0) gm/dL Hct 29.2 L (34.0-46.0) % MCH 24.1 L (25.0-35.0) pg MCHC 28.2 L (31.0-37.0) g/dL RDW 20.8 H (11.5-15.5) % Plt Count 148 L (150-450) k/uL Neutrophils # 10.9 H (1.3-7.7) k/uL Lymphocytes # 0.5 L (1.0-4.8) k/uL Sodium (137-145) mmol/L Potassium 3.3 L (3.5-5.1) mmol/L Carbon Dioxide 34 H (22-30) mmol/L Glucose 164 H (74-99) mg/dL POC Glucose (mg/dL) (75-99) mg/dL Calcium 7.5 L (8.4-10.2) mg/dL 03/26/20 03/26/20 03/26/20 Range/Units 06:41 11:27 16:38 WBC (3.8-10.6) k/uL RBC (3.80-5.40) m/uL Hgb (11.4-16.0) gm/dL Hct (34.0-46.0) % MCH (25.0-35.0) pg MCHC (31.0-37.0) g/dL RDW (11.5-15.5) % Plt Count (150-450) k/uL Neutrophils # (1.3-7.7) k/uL Lymphocytes # (1.0-4.8) k/uL Sodium (137-145) mmol/L Potassium (3.5-5.1) mmol/L Carbon Dioxide (22-30) mmol/L Glucose (74-99) mg/dL POC Glucose (mg/dL) 149 H 271 H 275 H (75-99) mg/dL Calcium (8.4-10.2) mg/dL Assessment and Plan (1) GI bleed Narrative/Plan: 69-year-old female with multiple medical comorbidities currently admitted and receiving treatment for acute diastolic heart failure and acute exacerbation of COPD. During her hospitalization stay the patient developed multiple episodes of maroon-colored bowel movements and was noted to have a fall in her hemoglobin from baseline of 9-10-5.5. She is receiving 2 units of packed red blood cells. History taken from the patient and her were significant for no prior endoscopic evaluation, no history of peptic ulcer disease, no NSAID use and no abdominal pain. EGD performed showing duodenal ulcer without active bleeding. No further signs or symptoms of bleeding and hemoglobin is stable. Current Visit: Yes Status: Acute Code(s): K92.2 - GASTROINTESTINAL HEMORRHA GE, UNSPECIFIED SNOMED Code(s): 30722199 (2) Anemia associated with acute blood loss Current Visit: Yes Status: Acute Code(s): D62 - ACUTE POSTHEMORRHAGIC ANEMIA SNOMED Code(s): 195029713 Plan: Supportive care Okay for diet as tolerated Continue to monitor hemoglobin and hematocrit and transfuse as needed Continue Protonix 40 mg twice daily Continue other medical management Continue to monitor stool output Thank you for allowing us to participate in the care of the patient, the GI service will stand by, please call us back with any questions or concerns
[2020-03-27] MEDS ORDERED: FUROSEMIDE 40 MG TAB PO SCH (16:00)
--- NOTE | 2020-03-29 13:26 | CDI ---
Documentation Clarification Form Date: 03/29/20 From: Leah Farmer Phone: If you have a question about this query, please contact Deedee Gandhi Garbage Person at [phone] between 8am and 5pm. Admit Date: Discharge Date: Patient Name: Visit Number: ATTENTION: The Clinical Documentation Specialists (CDI) and [facility] Coding Staff appreciate your assistance in clarifying documentation. Please respond to the clarification below the line at the bottom and electronically sign. The CDI & [facility] Coding staff will review the response and follow-up if needed. Please note: Queries are made part of the Legal Health Record. If you have any questions, please contact the author of this message via ITS. Dear Dr. Rodriguez Acute kidney injury, mostly cardiorenal, was documented in your consult note and your 03/14 and 03/22 progress notes but may lack clinical support History/Risk Factors: Hypertension, diastolic CHF exacerbation, acute respiratory failure, COPD exacerbation Patients baseline BUN/CR/GFR: 16/60/>90 Clinical Indicators: Decreased GFR, elevated creatinine Current BUN/Cr/GFR: 42/.90/65 on admit, creatining up to 1.03 on 03/12 UA: Hyaline casts 37 on 03/13/20 Treatment: Monitor renal function Other: Diuresis KIDGO defines JAVON as the occurrence of any 1 of the following: Increase in serum creatinine level by 0.3 mg/dl, measured prospectively by at least 2 separate levels obtained within 48 hrs, or Increase in serum creatinine level to 1.5 times baseline or greater, which is known or presumed to have occurred within the prior 7 days, or A urine volume of less than 0.5 ml/kg/h for 6 hours or longer In order to capture the severity of condition, please clarify if the condition signifies: Acute renal failure, Please specify etiology (if known): Cortical Necrosis Medullary Necrosis Tubular Necrosis Acute kidney injury Other, please specify Unable to determine cardio renal MTDD
--- NOTE | 2020-03-29 13:42 | CDI ---
Documentation Clarification Form Date: 03/29/20 From: Leah Farmer Phone: If you have a question about this query, please contact Deedee Gandhi Surgical Product Sales Consultant at [phone] between 8am and 5pm. Admit Date: 03/11/20 Discharge Date:03/27/20 Patient Name: Ban Estrada Visit Number: [id number] ATTENTION: The Clinical Documentation Specialists (CDI) and [facility] Coding Staff appreciate your assistance in clarifying documentation. Please respond to the clarification below the line at the bottom and electronically sign. The CDI & [facility] Coding staff will review the response and follow-up if needed. Please note: Queries are made part of the Legal Health Record. If you have any questions, please contact the author of this message via ITS. Dear Dr. Manzo A diagnosis of urinary tract infection has been documented in Dr. White's 03/24 & 03/25 progress notes, Dr. Kessler's 03/[address] Rodriguez's 03/25 progress note. Urine culture on 03/23 grew out Klebsiella pneumoniae. Documentation in the discharge summary states started on Rocephin for treatment of possible UTI. History/Risk Factors: Acute on chronic hypoxic and hypercapnic respiratory failure, diastolic CHF exacerbation, COPD exacerbation, toxic/metabolic encephalopathy, Per documentation in the progress notes and nursing documentation, this patient indwelling Newton catheter/a placed on 03/12. Clinical Indicators: Urinalysis: 03/13 - cloudy, large leukocyte esterase, 102 WBC, many bacteria, trace blood. 03/23 - cloudy, trace blood, large leukocyte esterase, WBC > 182, many bacteria Urine culture: Klebsiella pneumoniae Treatment: IV Rocephin started on 03/23. In your professional opinion, can you please clarify if the UTI was present on admission? Present on admission Yes No If not present on admission, please clarify the etiology of the UTI Newton catheter UTI not related to catheter Other condition, please specify Unable to determine \ URINALYSIS was done two days after admission. upon presentation , she did not report urinary symptoms to me. however she did have slighly elevated WBC upon presentation so no enough info upon presentation to diagnose UTI MTDD
== END 2020-03-27 14:14 | DRG 208 ==
LOC: EC 20:31 → 3SCARD 23:07 → 2SICU 03-12 09:01 → 4SSUR 03-23 22:15
PROVIDERS: ADMIT Internal Medicine; ATTEND Internal Medicine
PROC: 5A09457 Assistance with Respiratory Ventilation, 24-96 Consecutive Hours, Continuous Positive Airway Pressure (ICD-10-PCS; 2020-03-12 11:52)
PROC: 30233N1 Transfusion of Nonautologous Red Blood Cells into Peripheral Vein, Percutaneous Approach (ICD-10-PCS; 2020-03-15)
PROC: 0BH17EZ Insertion of Endotracheal Airway into Trachea, Via Natural or Artificial Opening (ICD-10-PCS; principal; 2020-03-16)
PROC: 5A1945Z Respiratory Ventilation, 24-96 Consecutive Hours (ICD-10-PCS; principal; 2020-03-16)
PROC: 06HM33Z Insertion of Infusion Device into Right Femoral Vein, Percutaneous Approach (ICD-10-PCS; 2020-03-16)
PROC: 03HY32Z Insertion of Monitoring Device into Upper Artery, Percutaneous Approach (ICD-10-PCS; 2020-03-16)
PROC: 0DH67UZ Insertion of Feeding Device into Stomach, Via Natural or Artificial Opening (ICD-10-PCS; 2020-03-16)
PROC: 3E033XZ Introduction of Vasopressor into Peripheral Vein, Percutaneous Approach (ICD-10-PCS; 2020-03-16)
PROC: 0DJ08ZZ Inspection of Upper Intestinal Tract, Via Natural or Artificial Opening Endoscopic (ICD-10-PCS; 2020-03-18)
DX: J44.1 Chronic obstructive pulmonary disease with (acute) exacerbation (principal); J96.22 Acute and chronic respiratory failure with hypercapnia; J96.21 Acute and chronic respiratory failure with hypoxia; R57.0 Cardiogenic shock; G92 Toxic encephalopathy; I50.33 Acute on chronic diastolic (congestive) heart failure; D62 Acute posthemorrhagic anemia; E87.1 Hypo-osmolality and hyponatremia; E87.3 Alkalosis; J98.11 Atelectasis; K92.2 Gastrointestinal hemorrhage, unspecified; I13.0 Hypertensive heart and chronic kidney disease with heart failure and stage 1 through stage 4 chronic kidney disease, or unspecified chronic kidney disease; N17.9 Acute kidney failure, unspecified; J44.0 Chronic obstructive pulmonary disease with (acute) lower respiratory infection; I11.0 Hypertensive heart disease with heart failure; I50.810 Right heart failure, unspecified; L89.311 Pressure ulcer of right buttock, stage 1; I27.29 Other secondary pulmonary hypertension; K26.9 Duodenal ulcer, unspecified as acute or chronic, without hemorrhage or perforation; B96.1 Klebsiella pneumoniae [K. pneumoniae] as the cause of diseases classified elsewhere; Z66 Do not resuscitate; Z20.828 Contact with and (suspected) exposure to other viral communicable diseases; R40.2364 Coma scale, best motor response, obeys commands, 24 hours or more after hospital admission; R40.2144 Coma scale, eyes open, spontaneous, 24 hours or more after hospital admission; R40.2254 Coma scale, best verbal response, oriented, 24 hours or more after hospital admission; E03.9 Hypothyroidism, unspecified; E86.1 Hypovolemia; E11.9 Type 2 diabetes mellitus without complications; E66.01 Morbid (severe) obesity due to excess calories; E78.5 Hyperlipidemia, unspecified; E87.5 Hyperkalemia; E87.6 Hypokalemia; F17.210 Nicotine dependence, cigarettes, uncomplicated; F32.9 Major depressive disorder, single episode, unspecified; F41.9 Anxiety disorder, unspecified; J45.20 Mild intermittent asthma, uncomplicated; K29.70 Gastritis, unspecified, without bleeding; M19.90 Unspecified osteoarthritis, unspecified site; T50.2X5A Adverse effect of carbonic-anhydrase inhibitors, benzothiadiazides and other diuretics, initial encounter; G89.29 Other chronic pain; H40.9 Unspecified glaucoma; I83.90 Asymptomatic varicose veins of unspecified lower extremity; M51.36 Other intervertebral disc degeneration, lumbar region; M54.9 Dorsalgia, unspecified; R19.7 Diarrhea, unspecified; R41.0 Disorientation, unspecified; T38.0X5A Adverse effect of glucocorticoids and synthetic analogues, initial encounter; J20.9 Acute bronchitis, unspecified; R32 Unspecified urinary incontinence; T46.4X5A Adverse effect of angiotensin-converting-enzyme inhibitors, initial encounter; R33.9 Retention of urine, unspecified; I08.1 Rheumatic disorders of both mitral and tricuspid valves; B36.9 Superficial mycosis, unspecified; Z79.82 Long term (current) use of aspirin; Z79.84 Long term (current) use of oral hypoglycemic drugs; Z79.890 Hormone replacement therapy; Z79.899 Other long term (current) drug therapy; Z85.828 Personal history of other malignant neoplasm of skin; Z87.442 Personal history of urinary calculi; Z91.81 History of falling; Z88.5 Allergy status to narcotic agent; Z88.8 Allergy status to other drugs, medicaments and biological substances; Z88.1 Allergy status to other antibiotic agents; Z91.040 Latex allergy status; Z90.49 Acquired absence of other specified parts of digestive tract; N18.9 Chronic kidney disease, unspecified; Z98.51 Tubal ligation status; Z68.35 Body mass index [BMI] 35.0-35.9, adult; Z98.890 Other specified postprocedural states; Z80.8 Family history of malignant neoplasm of other organs or systems; Z82.5 Family history of asthma and other chronic lower respiratory diseases; Z82.49 Family history of ischemic heart disease and other diseases of the circulatory system; Y92.239 Unspecified place in hospital as the place of occurrence of the external cause
CPT/HCPCS: 36410; 36415; 36600; 43235; 71045; 71046; 76937; 80048; 80053; 81001; 82607; 82728; 82746; 82805; 83036; 83540; 83550; 83605; 83735; 83880; 84132; 84484; 85025; 85027; 85045; 85610; 85730; 86850; 86900; 86901; 86920; 87040; 87070; 87077; 87086; 87186; 87205; 87324; 87635; 93005; 93306; 94002; 94003; 94640; 94660; 96374; 96375; 96376; 99285

== ENCOUNTER 2020-04-25 15:00 | Inpatient (IN) | payer MEDICARE, OTHER ==
--- NOTE | 2020-04-25 16:06 | XR ---
EXAMINATION TYPE: XR chest 2V DATE OF EXAM: 04/25/2020 COMPARISON: 03/27/2020 HISTORY: Short of breath TECHNIQUE: 2 views. There is mild pulmonary congestion. There is coarsening of interstitial markings. There is very sligh t blunting of the costophrenic angles. Bony thorax is intact. IMPRESSION: Small pleural effusions and probably mild heart failure that is improved compared to old exam.
[2020-04-25 16:27] LABS: Anisocytosis Moderate; Basophils # (A) 0.1 k/uL (0-0.2); Basophils % (A) 0 %; Eosinophils # (A) 0.2 k/uL (0-0.7); Eosinophils % (A) 1 %; HCT 21.7 % (34.0-46.0); Hypochromasia Marked; Lymphocytes % (A) 7 %; MCH 25.7 pg (25.0-35.0); MCHC 31.1 g/dL (31.0-37.0); MCV 82.5 fL (80.0-100.0); Mean Platelet Volume 7.8; Microcytosis Slight; Monocytes # (A) 0.6 k/uL (0-1.0); Monocytes % (A) 4 %; Neutrophils # (A) 12.9 k/uL (1.3-7.7); Neutrophils % (A) 86 %; Platelet Count 439 k/uL (150-450); Poikilocytosis Moderate; RBC 2.63 m/uL (3.80-5.40); RDW 20.9 % (11.5-15.5); WBC 15.1 k/uL (3.8-10.6)
[2020-04-25 16:37] LABS: Partial Thromboplastin Time 23.5 sec (22.0-30.0); Prothrombin Time 10.8 sec (9.0-12.0)
[2020-04-25 16:39] LABS: HGB 6.8 gm/dL (11.4-16.0)
[2020-04-25 16:46] LABS: ALT 20 U/L (4-34); AST 23 U/L (14-36); African American GFR (CKD) >90 (>60 ml/min/1.73 sqM); Albumin 3.1 g/dL (3.5-5.0); Alkaline Phosphatase 99 U/L (38-126); Anion Gap 8 mmol/L; Blood Urea Nitrogen 23 mg/dL (7-17); Calcium 8.6 mg/dL (8.4-10.2); Carbon Dioxide 30 mmol/L (22-30); Chloride 95 mmol/L (98-107); Glucose 116 mg/dL (74-99); Magnesium 1.6 mg/dL (1.6-2.3); Non-African American GFR(CKD) >90 (>60 ml/min/1.73 sqM); Potassium 4.6 mmol/L (3.5-5.1); Sodium 133 mmol/L (137-145); Total Bilirubin 0.3 mg/dL (0.2-1.3); Total Protein 5.7 g/dL (6.3-8.2)
[2020-04-25] MEDS ORDERED: IPRATROPIUM-ALBUTEROL 3 ML NEB INHALATION STA (17:06)
--- NOTE | 2020-04-25 17:40 | XR ---
EXAMINATION TYPE: XR KUB DATE OF EXAM: 04/25/2020 COMPARISON: 06/09/2014 HISTORY: Abdominal pain TECHNIQUE: 2 views supine FINDINGS: There is some retained fecal material in the large bowel. I see no sign of free air. There are clips from cholecystectomy. There is significant arthritic disease in the right hip joint with sc lerosis and subchondral cystic change. I see no definite calcifications over the kidneys. There is no evidence of free air. There is some pleural reaction at the lung bases. IMPRESSION: Constipation which is a change compared to old exam. There is significant progression of arthritic disease in the right hip joint compared to old exam. Pleural reaction at the lung bases is new compared to old exam.
[2020-04-25 18:02] LABS: Appearance,Urine Turbid (Clear); Bilirubin,Urine Negative (Negative); Blood,Urine Moderate (Negative); Color,Urine Light Yellow; Glucose,Urine (UA) Negative (Negative); Ketones,Urine Negative (Negative); Leukocyte Esterase,Urine Large (Negative); Nitrite,Urine Negative (Negative); Protein,Urine 1+ (Negative); RBC,Urine 17 /hpf (0-5); Specific Gravity,Urine 1.013 (1.001-1.035); Urobilinogen,Urine <2.0 mg/dL (<2.0); WBC,Urine >182 /hpf (0-5)
[2020-04-25] MEDS ORDERED: PANTOPRAZOLE 40 MG/10 ML VIAL IVP STA (18:26)
[2020-04-25] MEDS ORDERED: SODIUM CHLORIDE 0.9% 500 ML 500 ML IV ONE (18:35)
--- NOTE | 2020-04-25 19:25 | CT ---
EXAMINATION TYPE: CT abdomen pelvis w con DATE OF EXAM: 04/25/2020 COMPARISON: 04/15/2012 HISTORY: Abdominal pain CT DLP: 1314.3 mGycm Automated exposure control for dose reduction was used. CONTRAST: Performed with IV Contrast, patient injected with 100 mL of Isovue 300. There is some atelectasis at the posterior lung bases. Heart is enlarged. Liver shows no focal defect . There are clips from cholecystectomy. Spleen is intact. Stomach is intact. There is no evidence of pancreatic mass. There is no adrenal mass. Kidneys show satisfactory contrast opacification. There is some enlargement of the right renal pelvis and calyces. Delayed images show little contrast in the r enal collecting systems. There is some fullness of the right ureter. No ureteral calculus seen. Urina ry bladder is large and measures 14 cm. Uterus is anteverted. There is no inguinal hernia. There is r etained fecal material in the rectum that measures 6 cm. There is 3 mm calcification posterior left k idney. Delayed images show very little contrast in the renal collecting systems. Appendix is not seen. There is no sign of thickened appendix. There are spondylotic changes in the jojo mbar spine at L3-4 L4-5 with disc space narrowing. There is no lumbar compression fracture. The bony pelvis is intact. There is severe narrowing of the right hip joint space with sclerosis and subchondr al cystic changes on both sides of the hip joint. There is no mesenteric edema. There is no ascites or free air. There is no bowel obstruction. IMPRESSION: There is some mild atelectasis at the left lung base that is new compared to old exam. There is decrease in the renal calculi compared to old exam. There is mild right-sided hydronephrosis and hydroureter increased compared to old exam. No obstructing calculus seen. This could relate to r ecently passed stone. Decreased contrast on the delayed images suggestive of some degree of renal sherwin lure.
[2020-04-25] MEDS ORDERED: NALOXONE 0.4 MG/ML 1 ML VIAL IV PRN (19:33)
--- NOTE | 2020-04-25 19:39 | ED ---
General Adult HPI - General Source: patient, RN notes reviewed, old records reviewed Mode of arrival: ambulatory Limitations: no limitations <Ted Jacobsen - Last Filed: 04/25/20 19:33> <Rukhsana Bravo - Last Filed: 04/29/20 23:06> - General Chief complaint: Weakness Stated complaint: lab recheck Time Seen by Provider: 04/25/20 15:17 - History of Present Illness Initial comments: 69-year-old female patient brought NV for evaluation of generalized weakness for the last few days. Patient reports that she essentially has not had her strength is she is discharged in the hospital a few weeks ago. Patient reports that she has a history of GI bleeds. She denies any blood in her stool. Reports that she'll of epigastric abdominal pain a few hours ago which always for about 5 minutes. Denies any chest pain or any shortness of breath. Patient is a congestive heart failure and COPD. Denies any other acute complaints. Systemic: Pt denies fatigue, fever/chills, rash. Pt denies weakness, night sweats, weight loss. Neuro: Pt denies headache, visual disturbances, syncope or pre-syncope. HEENT: Pt denies ocular discharge or irritation, otalgia, rhinorrhea, pharyngitis or notable lymphadenopathy. Cardiopulmonary: Pt denies chest pain, SOB, heart palpitations, dyspnea on exertion. Abdominal/GI: Pt denies n/v/d. : Pt denies dysuria, burning w/ urination, frequency/urgency. Denies new onset urinary or bowel incontinence. MSK: Pt denies myalgia, loss of strength or function in extremities. Neuro: Pt denies new onset weakness, paresthesias. (Ted Jacobsen) - Related Data Home Medications Medication Instructions Recorded Confirmed Zafirlukast [Accolate] 20 mg PO BID 02/06/14 04/27/20 ARIPiprazole [Abilify] 5 mg PO HS 02/07/18 04/27/20 metFORMIN HCL [Glucophage] 1,000 mg PO BID-W/MEALS 02/07/18 04/27/20 Cholecalciferol [Vitamin D3 (25 1,000 unit PO DAILY 09/03/19 04/27/20 Mcg = 1000 Iu)] Levothyroxine Sodium [Synthroid] 200 mcg PO DAILY 09/03/19 04/27/20 Albuterol Sulfate [Ventolin HFA] 1 - 2 puff INHALATION RT-Q6H PRN 03/11/20 04/27/20 Escitalopram [Lexapro] 20 mg PO DAILY 03/11/20 04/27/20 Furosemide [Lasix] 40 mg PO DAILY 04/27/20 04/27/20 Previous Rx's Medication Instructions Recorded Atorvastatin [Lipitor] 40 mg PO DAILY #30 tab 09/10/18 Metoprolol Tartrate [Lopressor] 25 mg PO TID #90 tab 09/10/18 Budesonide [Pulmicort] 1 mg INHALATION RT-BID ml 03/27/20 Formoterol Fumarate [Perforomist] 20 mcg INHALATION RT-BID nebu 03/27/20 HYDROcodone/APAP 7.5-325MG [[place] 1 tab PO Q6H PRN #12 tab 03/27/20 7.5-325] Ipratropium-Albuterol Nebulize 3 ml INHALATION RT-Q2H PRN ml 03/27/20 [Duoneb 0.5 mg-3 mg/3 ml Soln] Pantoprazole Sodium [Protonix] 40 mg PO BID #60 tablet.dr 03/27/20 Cephalexin [Keflex] 500 mg PO Q8HR 3 Days #9 cap 04/27/20 Magnesium Oxide [Mag-Ox] 400 mg PO DAILY #30 tablet 04/27/20 Allergies Allergy/AdvReac Type Severity Reaction Status Date / Time adhesive Allergy Rash/Hives Verified 04/26/20 10:39 ciprofloxacin [From Cipro] Allergy Rash/Hives Verified 04/26/20 10:39 ciprofloxacin HCl Allergy Rash/Hives Verified 04/26/20 10:39 [From Cipro] latex Allergy Rash/Hives Verified 04/26/20 10:39 nitrofurantoin Allergy Rash/Hives Verified 04/26/20 10:39 [From Macrobid] nitrofurantoin Allergy Rash/Hives Verified 04/26/20 10:39 macrocrystalline [From Macrobid] Penicillins Allergy Rash/Hives Verified 04/26/20 10:39 propoxyphene HCl Allergy Rash/Hives Verified 04/26/20 10:39 [From Darvon] propoxyphene napsylate Allergy Unknown Verified 04/26/20 10:39 [From Carlitos] Review of Systems ROS Other: All systems not noted in ROS Statement are negative. <Ted Jacobsen - Last Filed: 04/25/20 19:33> ROS Other: All systems not noted in ROS Statement are negative. <Rukhsana Bravo Eddie - Last Filed: 04/29/20 23:06> ROS Statement: Those systems with pertinent positive or pertinent negative responses have been documented in the HPI. Past Medical History Past Medical History: Asthma, Chest Pain / Angina, COPD, Diabetes Mellitus, Hyperlipidemia, Hypertension, Osteoarthritis (OA), Respiratory Disorder, Skin Disorder, Thyroid Disorder Additional Past Medical History / Comment(s): Obesity (BMI 35) COPD, asthma, asim betes , depression, 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 The patient is also a smoker. The patient has chronic back pain. History of Any Multi-Drug Resistant Organisms: None Reported Past Surgical History: Appendectomy, Section, Cholecystectomy, Orthopedic Surgery, Tubal Ligation Additional Past Surgical History / Comment(s): LASER SX JETHRO EYES FOR GLAUCOMA. RT KNEE ARTHROSCOPY. UNDERWENT PERCUTANEOUS NEPHROSTOLITHOTOMY Past Anesthesia/Blood Transfusion Reactions: No Reported Reaction Past Psychological History: Anxiety, Depression Smoking Status: Current every day smoker Past Alcohol Use History: None Reported Past Drug Use History: None Reported - Past Family History Mother Additional Family Medical History / Comment(s): emphysema, heart valve problems, in her slepp. Brother(s) Family Medical History: Cancer Additional Family Medical History / Comment(s): from oral cancer Father Brother(s) Family Medical History: Cancer Additional Family Medical History / Comment(s): heart disease <Ted Jacobsen - Last Filed: 04/25/20 19:33> General Exam Limitations: no limitations <Ted Jacobsen - Last Filed: 04/25/20 19:33> - General Exam Comments Initial Comments: Constitutional: NAD, AOX3, Pt has pleasant affect. HEENT: NC/AT, trachea midline, neck supple, no lymphadenopathy. Posterior pharynx non erythematous, without exudates. External ears appear normal, without discharge. Mucous membranes moist. Eyes PERRLA, EOM intact. There is no scleral icterus. No pallor noted. Cardiopulmonary: RRR, no murmurs, rubs or gallops, no JVD noted. Lungs CTAB in anterior and posterior campbell. No peripheral edema. Abdominal exam: Abdomen soft and non-distended. Abdomen non-tender to palpation in all 4 quadrants. Bowel sounds active in LLQ. No hepatosplenomegaly. No ecchymosis Neuro: CN II-XII grossly intact. No nuchal rigidity. No raccon eyes, no warner sign, no hemotympanum. No cervical spinal tenderness. MSK: No posterior calf tenderness bilaterally, homans sign negative bilaterally. Posterior tibialis and radial pulse +2 bilaterally. Sensation intact in upper and lower extremities. Full active ROM in upper and lower extremities, 5/5 stregnth. Rectal: Melanotic stool is noted. (Ted Jacobsen) Course Vital Signs 04/25/20 04/25/20 04/25/20 15:06 17:14 18:00 Temperature 98.2 F Pulse Rate 80 69 75 Respiratory 18 18 18 Rate Blood Pressure 135/71 115/51 114/51 O2 Sat by Pulse 94 L 100 97 Oximetry 04/25/20 04/25/20 04/25/20 18:02 18:12 19:00 Temperature Pulse Rate 76 78 75 Respiratory 18 Rate Blood Pressure 138/43 O2 Sat by Pulse 96 Oximetry 04/25/20 04/25/20 04/25/20 19:02 19:42 19:52 Temperature 97.5 F L 97.4 F L Pulse Rate 79 82 Respiratory 18 18 Rate Blood Pressure 138/43 162/57 155/58 O2 Sat by Pulse 99 98 Oximetry 04/25/20 04/25/20 20:00 20:22 Temperature 97.5 F L Pulse Rate 80 Respiratory 18 Rate Blood Pressure 155/58 157/53 O2 Sat by Pulse 98 Oximetry Medical Decision Making - Lab Data Result diagrams: 04/25/20 16:01 04/25/20 16:01 - EKG Data -: EKG Interpreted by Ga (and Dr. Bravo ) <Ted Jacobsen - Last Filed: 04/25/20 19:33> - Lab Data Result diagrams: 04/27/20 07:01 09/08/20 07:01 <Rukhsana Bravo - Last Filed: 04/29/20 23:06> - Medical Decision Making 69-year-old female patient with Raúl with denies weakness limited abdominal pain. Patient vital signs are stable, afebrile. Physical exam displayed soft and nontender abdomen with some melanotic stool. Left investigations were obtained hemoglobin 6.8 baseline. He around 8. Occult blood positive. EKG is nonischemic. KUB displayed constipation. Chest x-ray displayed small pleural effusion and probably mild heart failure improved from prior. Patient then began experiencing some epigastric abdominal pain. CT of the pelvis was performed. Despite some atelectasis in the left lower lung base of aside hydronephrosis and hydroureter. No fashion calculi. She initiated on Rocephin for urinary tract infection. Will be admitted to ICU for further evaluation. Case discussed with Dr. Bravo. (Ted Jacobsen) I was available for consultation in the emergency department. The history and physical exam were done by the midlevel provider. I was consulted for this patients care. I reviewed the case with the midlevel provider and based on their presentation of the patient, I agree with the assessment, medical decision making and plan of care as documented. Chart was dictated using ODIN dictation software. Attempts were made to correct any dictation errors however some typographical errors may persist. Patient was seen during a national state of emergency due to the Covid-19 pandemic. Discussed case with Dr. Manzo and Dr. Silveira who accepted admission of the patient. (Rukhsana Bravo) - Lab Data Lab Results 04/25/20 04/25/20 04/25/20 Range/Units 16:01 16:01 16:01 WBC 15.1 H (3.8-10.6) k/uL RBC 2.63 L (3.80-5.40) m/uL Hgb 6.8 L* D (11.4-16.0) gm/dL Hct 21.7 L (34.0-46.0) % MCV 82.5 (80.0-100.0) fL MCH 25.7 (25.0-35.0) pg MCHC 31.1 (31.0-37.0) g/dL RDW 20.9 H (11.5-15.5) % Plt Count 439 (150-450) k/uL Neutrophils % 86 % Lymphocytes % 7 % Monocytes % 4 % Eosinophils % 1 % Basophils % 0 % Neutrophils # 12.9 H (1.3-7.7) k/uL Lymphocytes # 1.0 (1.0-4.8) k/uL Monocytes # 0.6 (0-1.0) k/uL Eosinophils # 0.2 (0-0.7) k/uL Basophils # 0.1 (0-0.2) k/uL Hypochromasia Marked Poikilocytosis Moderate Anisocytosis Moderate Microcytosis Slight PT 10.8 (9.0-12.0) sec INR 1.0 (<1.2) APTT 23.5 (22.0-30.0) sec Sodium (137-145) mmol/L Potassium (3.5-5.1) mmol/L Chloride (98-107) mmol/L Carbon Dioxide (22-30) mmol/L Anion Gap mmol/L BUN (7-17) mg/dL Creatinine (0.52-1.04) mg/dL Est GFR (CKD-EPI)AfAm (>60 ml/min/1.73 sqM) Est GFR (CKD-EPI)NonAf (>60 ml/min/1.73 sqM) Glucose (74-99) mg/dL Plasma Lactic Acid Ravi (0.7-2.0) mmol/L Calcium (8.4-10.2) mg/dL Magnesium (1.6-2.3) mg/dL Total Bilirubin (0.2-1.3) mg/dL AST (14-36) U/L ALT (4-34) U/L Alkaline Phosphatase (38-126) U/L Troponin I (0.000-0.034) ng/mL Total Protein (6.3-8.2) g/dL Albumin (3.5-5.0) g/dL Lipase (23-300) U/L Urine Color Light Yellow Urine Appearance Turbid H (Clear) Urine pH 7.0 (5.0-8.0) Ur Specific [place] 1.013 (1.001-1.035) Urine Protein 1+ H (Negative) Urine Glucose (UA) Negative (Negative) Urine Ketones Negative (Negative) Urine Blood Moderate H (Negative) Urine Nitrite Negative (Negative) Urine Bilirubin Negative (Negative) Urine Urobilinogen <2.0 (<2.0) mg/dL Ur Leukocyte Esterase Large H (Negative) Urine RBC 17 H (0-5) /hpf Urine WBC >182 H (0-5) /hpf Urine WBC Clumps Many H (None) /hpf Stool Occult Blood (Negative) Blood Type Blood Type Recheck Bld Type Recheck Status Antibody Screen Crossmatch Spec Expiration Date 04/25/20 04/25/20 04/25/20 Range/Units 16:01 16:01 16:01 WBC (3.8-10.6) k/uL RBC (3.80-5.40) m/uL Hgb (11.4-16.0) gm/dL Hct (34.0-46.0) % MCV (80.0-100.0) fL MCH (25.0-35.0) pg MCHC (31.0-37.0) g/dL RDW (11.5-15.5) % Plt Count (150-450) k/uL Neutrophils % % Lymphocytes % % Monocytes % % Eosinophils % % Basophils % % Neutrophils # (1.3-7.7) k/uL Lymphocytes # (1.0-4.8) k/uL Monocytes # (0-1.0) k/uL Eosinophils # (0-0.7) k/uL Basophils # (0-0.2) k/uL Hypochromasia Poikilocytosis Anisocytosis Microcytosis PT (9.0-12.0) sec INR (<1.2) APTT (22.0-30.0) sec Sodium 133 L (137-145) mmol/L Potassium 4.6 (3.5-5.1) mmol/L Chloride 95 L (98-107) mmol/L Carbon Dioxide 30 (22-30) mmol/L Anion Gap 8 mmol/L BUN 23 H (7-17) mg/dL Creatinine 0.58 (0.52-1.04) mg/dL Est GFR (CKD-EPI)AfAm >90 (>60 ml/min/1.73 sqM) Est GFR (CKD-EPI)NonAf >90 (>60 ml/min/1.73 sqM) Glucose 116 H (74-99) mg/dL Plasma Lactic Acid Ravi 1.4 (0.7-2.0) mmol/L Calcium 8.6 (8.4-10.2) mg/dL Magnesium 1.6 (1.6-2.3) mg/dL Total Bilirubin 0.3 (0.2-1.3) mg/dL AST 23 (14-36) U/L ALT 20 (4-34) U/L Alkaline Phosphatase 99 (38-126) U/L Troponin I <0.012 (0.000-0.034) ng/mL Total Protein 5.7 L (6.3-8.2) g/dL Albumin 3.1 L (3.5-5.0) g/dL Lipase (23-300) U/L Urine Color Urine Appearance (Clear) Urine pH (5.0-8.0) Ur Specific [place] (1.001-1.035) Urine Protein (Negative) Urine Glucose (UA) (Negative) Urine Ketones (Negative) Urine Blood (Negative) Urine Nitrite (Negative) Urine Bilirubin (Negative) Urine Urobilinogen (<2.0) mg/dL Ur Leukocyte Esterase (Negative) Urine RBC (0-5) /hpf Urine WBC (0-5) /hpf Urine WBC Clumps (None) /hpf Stool Occult Blood (Negative) Blood Type Blood Type Recheck Bld Type Recheck Status Antibody Screen Crossmatch Spec Expiration Date 04/25/20 04/25/20 04/25/20 Range/Units 16:45 16:50 17:13 WBC (3.8-10.6) k/uL RBC (3.80-5.40) m/uL Hgb (11.4-16.0) gm/dL Hct (34.0-46.0) % MCV (80.0-100.0) fL MCH (25.0-35.0) pg MCHC (31.0-37.0) g/dL RDW (11.5-15.5) % Plt Count (150-450) k/uL Neutrophils % % Lymphocytes % % Monocytes % % Eosinophils % % Basophils % % Neutrophils # (1.3-7.7) k/uL Lymphocytes # (1.0-4.8) k/uL Monocytes # (0-1.0) k/uL Eosinophils # (0-0.7) k/uL Basophils # (0-0.2) k/uL Hypochromasia Poikilocytosis Anisocytosis Microcytosis PT (9.0-12.0) sec INR (<1.2) APTT (22.0-30.0) sec Sodium (137-145) mmol/L Potassium (3.5-5.1) mmol/L Chloride (98-107) mmol/L Carbon Dioxide (22-30) mmol/L Anion Gap mmol/L BUN (7-17) mg/dL Creatinine (0.52-1.04) mg/dL Est GFR (CKD-EPI)AfAm (>60 ml/min/1.73 sqM) Est GFR (CKD-EPI)NonAf (>60 ml/min/1.73 sqM) Glucose (74-99) mg/dL Plasma Lactic Acid Ravi (0.7-2.0) mmol/L Calcium (8.4-10.2) mg/dL Magnesium (1.6-2.3) mg/dL Total Bilirubin (0.2-1.3) mg/dL AST (14-36) U/L ALT (4-34) U/L Alkaline Phosphatase (38-126) U/L Troponin I (0.000-0.034) ng/mL Total Protein (6.3-8.2) g/dL Albumin (3.5-5.0) g/dL Lipase 145 (23-300) U/L Urine Color Urine Appearance (Clear) Urine pH (5.0-8.0) Ur Specific [place] (1.001-1.035) Urine Protein (Negative) Urine Glucose (UA) (Negative) Urine Ketones (Negative) Urine Blood (Negative) Urine Nitrite (Negative) Urine Bilirubin (Negative) Urine Urobilinogen (<2.0) mg/dL Ur Leukocyte Esterase (Negative) Urine RBC (0-5) /hpf Urine WBC (0-5) /hpf Urine WBC Clumps (None) /hpf Stool Occult Blood Positive H (Negative) Blood Type AB Positive Blood Type Recheck AB Pos Bld Type Recheck Status No Antibody Screen NEGATIVE Crossmatch See Detail Spec Expiration Date 04/28/2020 - 5880 - EKG Data EKG Comments: ventricular rate 68,. 160, QRS 82, QT/QTc 410/435. Normal sensory, left axis deviation. Nonspecific T-wave abnormality. No concern for acute ischemia this time. (Ted Jacobsen) Disposition Is patient prescribed a controlled substance at d/c from ED?: No <Ted Jacobsen - Last Filed: 04/25/20 19:33> <Rukhsana Bravo - Last Filed: 04/29/20 23:06> Clinical Impression: GI bleed, UTI (urinary tract infection) Disposition: ADMITTED IP TO THIS HOSP Condition: Fair
[2020-04-25] MEDS ORDERED: FUROSEMIDE 40 MG TAB PO STA (19:47)
[2020-04-25] MEDS ORDERED: FUROSEMIDE 10 MG/ML 4 ML VIAL IV STA (19:56)
[2020-04-25 20:31] LABS: Glucose,Whole Blood 125 mg/dL (75-99)
[2020-04-26] MEDS ORDERED: HYDROcodone/APAP 7.5-325MG 1 EACH TAB PO PRN (01:13)
--- NOTE | 2020-04-26 01:29 | P.HPIM ---
History of Present Illness H&P Date: 04/25/20 Chief Complaint: DebilityGeneralized weakness 6-year-old female with COPD using oxygen at night, diastolic CHF, diabetes mellitus on oral hypoglycemics, hypothyroid, chronic anemia Patient has recently been discharged from [facility] where she was there for subacute rehab after hospital stay where she was admitted for acute COPD exacerbation and acute diastolic CHF along with UTI during her hospital stay late in February and early March she had a complicated course requiring mechanical ventilation and intubation, she was also transfused 4 units of packed RBC due to GI bleeding EGD on March 18 showed duodenal ulcer none bleeding. Patient reports that she has been home for about 2 weeks and she's been progressively getting weaker she denies any fevers denies any chest pain or trouble breathing she denies any nausea or vomiting however she does report some epigastric abdominal pain that has been getting worse over the past few days rate the pain as 8 out of 10 in severity sharp in nature radiates to the left upper quadrant. Not associated with any diarrhea or visible bloody bowel movement she was not sure about melanotic stool. Patient denies taking any NSAIDs, however she does take baby aspirin daily. However she's been getting extremely tired and weak she can't even ambulate she normally uses a walker now she is down to the wheelchair she spends most her time either in bed or in a chair due to easy fatigability. She otherwise denies any leg swelling but does admit to orthopnea which is chronic. She denies any coughing or wheezing she continues to use her medications and inhalers as prescribed. She reports some suprapubic abdominal discomfort with frequent urination no fever but does report some chills In the ED chest x-ray showed improvement in bilateral pleural effusion. CT of the abdomen suggested right hydronephrosis and ureter with no evidence of calculus possible patient has passed a stone Her hemoglobin was 6.8 down from baseline of 8 and she tested positive for occult blood patient admitted for close monitoring and further care Review of Systems Pertinent positives as noted in HPI. All other systems were reviewed and are negative Past Medical History Past Medical History: Asthma, Chest Pain / Angina, COPD, Diabetes Mellitus, Hyperlipidemia, Hypertension, Osteoarthritis (OA), Respiratory Disorder, Skin Disorder, Thyroid Disorder Additional Past Medical History / Comment(s): Obesity (BMI 35) COPD, asthma, diabetes , depression, 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 The patient is also a smoker. The patient has chronic back pain. History of Any Multi-Drug Resistant Organisms: None Reported Past Surgical History: Appendectomy, Section, Cholecystectomy, Orthopedic Surgery, Tubal Ligation Additional Past Surgical History / Comment(s): LASER SX JETHRO EYES FOR GLAUCOMA. RT KNEE ARTHROSCOPY. UNDERWENT PERCUTANEOUS NEPHROSTOLITHOTOMY Past Anesthesia/Blood Transfusion Reactions: No Reported Reaction Past Psychological History: Anxiety, Depression Smoking Status: Current every day smoker Past Alcohol Use History: None Reported Past Drug Use History: None Reported - Past Family History Mother Additional Family Medical History / Comment(s): emphysema, heart valve problems, in her slepp. Brother(s) Family Medical History: Cancer Additional Family Medical History / Comment(s): from oral cancer Father Brother(s) Family Medical History: Cancer Additional Family Medical History / Comment(s): heart disease Medications and Allergies Home Medications Medication Instructions Recorded Confirmed Type Zafirlukast [Accolate] 20 mg PO BID 02/06/14 03/11/20 History ARIPiprazole [Abilify] 5 mg PO HS 02/07/18 03/11/20 History metFORMIN HCL [Glucophage] 1,000 mg PO BID 02/07/18 03/11/20 History Atorvastatin [Lipitor] 40 mg PO DAILY #30 tab 09/10/18 03/11/20 Rx Metoprolol Tartrate [Lopressor] 25 mg PO TID #90 tab 09/10/18 03/11/20 Rx Cholecalciferol [Vitamin D3 (25 1,000 unit PO DAILY 09/03/19 03/11/20 History Mcg = 1000 Iu)] Levothyroxine Sodium [Synthroid] 200 mcg PO DAILY 09/03/19 03/11/20 History Albuterol Sulfate [Ventolin HFA] 1 - 2 puff INHALATION RT-Q6H PRN 03/11/20 03/11/20 History Escitalopram [Lexapro] 20 mg PO DAILY 03/11/20 03/11/20 History Budesonide [Pulmicort] 1 mg INHALATION RT-BID ml 03/27/20 Rx Formoterol Fumarate [Perforomist] 20 mcg INHALATION RT-BID nebu 03/27/20 Rx Furosemide [Lasix] 40 mg PO BID #60 tablet 03/27/20 Rx HYDROcodone/APAP 7.5-325MG [[place] 1 tab PO Q6H PRN #12 tab 03/27/20 Rx 7.5-325] Ipratropium-Albuterol Nebulize 3 ml INHALATION RT-Q2H PRN ml 03/27/20 Rx [Duoneb 0.5 mg-3 mg/3 ml Soln] Pantoprazole Sodium [Protonix] 40 mg PO BID #60 tablet. 03/27/20 Rx methylPREDNISolone [Medrol Dose 4 mg PO DIRECTED #1 pack 03/27/20 Rx Pack] Allergies Allergy/AdvReac Type Severity Reaction Status Date / Time adhesive Allergy Rash/Hives Verified 04/25/20 15:10 ciprofloxacin [From Cipro] Allergy Rash/Hives Verified 04/25/20 15:10 ciprofloxacin HCl Allergy Rash/Hives Verified 04/25/20 15:10 [From Cipro] latex Allergy Rash/Hives Verified 04/25/20 15:10 nitrofurantoin Allergy Rash/Hives Verified 04/25/20 15:10 [From Macrobid] nitrofurantoin Allergy Rash/Hives Verified 04/25/20 15:10 macrocrystalline [From Macrobid] Penicillins Allergy Rash/Hives Verified 04/25/20 15:10 propoxyphene HCl Allergy Rash/Hives Verified 04/25/20 15:10 [From Darvon] propoxyphene napsylate Allergy Unknown Verified 04/25/20 15:10 [From Darvocet-N] Physical Exam Vitals: Vital Signs Temp Pulse Resp BP Pulse Ox 04/25/20 20:22 97.5 F L 80 18 157/53 04/25/20 19:52 97.4 F L 82 18 155/58 98 04/25/20 19:42 97.5 F L 79 18 162/57 99 04/25/20 19:00 75 18 138/43 96 04/25/20 18:12 78 04/25/20 18:02 76 04/25/20 18:00 75 18 114/51 97 04/25/20 17:14 69 18 115/51 100 04/25/20 15:06 98.2 F 80 18 135/71 94 L Intake and Output 04/25/20 04/25/20 04/25/20 06:59 14:59 22:59 Intake Total 0 Balance 0 Intake: Blood Product 0 Rc As-1 Unit 0 [id number] Other: Weight 78.471 kg Constitutional: No acute distress, conversant, pleasant Eyes: Anicteric sclerae, moist conjunctiva, Pupils equal round reactive to light ENMT: NC/AT Oropharynx clear, no erythema, or exudates Neck: Supple, FROM, no masses, or JVD No carotid bruits No thyromegaly Lungs: Clear to auscultation Clear to percussion Normal respiratory effort, no accessory muscle use Cardiovascular: Heart regular in rate and rhythm, Systolic murmurs, no gallops, or rubs No peripheral edema Abdominal: Soft Tenderness to deep palpation mainly in the epigastric region and suprapubic region , no guarding, rebound or rigidity Abdomen moving with respiration Normoactive bowel sounds No hepatomegaly, No splenomegaly No palpable mass No abdominal wall hernia noted Skin: Normal temperature, tone, texture, turgor No induration No subcutaneous nodules No rash, lesions No ulcers Extremities: No digital cyanosis No clubbing Pedal pulses intact and symmetrical Radial pulses intact and symmetrical No calf tenderness Psychiatric: Alert and oriented to person, place and time Appropriate affect fair judgement Neuro Muscles Strength 4/5 in all 4 extremities Sensation to light touch grossly present throughout Cranial nerves II-XII grossly intact No focal sensory deficits Lymphatics: no palpable cervical or supraclavicular , or inguinal lymph nodes Results CBC & Chem 7: 04/25/20 16:01 04/25/20 16:01 Labs: Abnormal Lab Results - Last 24 Hours (Table) 04/25/20 04/25/20 04/25/20 Range/Units 16:01 16: 16:01 WBC 15.1 H (3.8-10.6) k/uL RBC 2.63 L (3.80-5.40) m/uL Hgb 6.8 L* D (11.4-16.0) gm/dL Hct 21.7 L (34.0-46.0) % RDW 20.9 H (11.5-15.5) % Neutrophils # 12.9 H (1.3-7.7) k/uL Sodium 133 L (137-145) mmol/L Chloride 95 L (98-107) mmol/L BUN 23 H (7-17) mg/dL Glucose 116 H (74-99) mg/dL POC Glucose (mg/dL) (75-99) mg/dL Total Protein 5.7 L (6.3-8.2) g/dL Albumin 3.1 L (3.5-5.0) g/dL Urine Appearance Turbid H (Clear) Urine Protein 1+ H (Negative) Urine Blood Moderate H (Negative) Ur Leukocyte Esterase Large H (Negative) Urine RBC 17 H (0-5) /hpf Urine WBC >182 H (0-5) /hpf Urine WBC Clumps Many H (None) /hpf Stool Occult Blood (Negative) Crossmatch 04/25/20 04/25/20 04/25/20 Range/Units 16:50 17:13 20:29 WBC (3.8-10.6) k/uL RBC (3.80-5.40) m/uL Hgb (11.4-16.0) gm/dL Hct (34.0-46.0) % RDW (11.5-15.5) % Neutrophils # (1.3-7.7) k/uL Sodium (137-145) mmol/L Chloride (98-107) mmol/L BUN (7-17) mg/dL Glucose (74-99) mg/dL POC Glucose (mg/dL) 125 H (75-99) mg/dL Total Protein (6.3-8.2) g/dL Albumin (3.5-5.0) g/dL Urine Appearance (Clear) Urine Protein (Negative) Urine Blood (Negative) Ur Leukocyte Esterase (Negative) Urine RBC (0-5) /hpf Urine WBC (0-5) /hpf Urine WBC Clumps (None) /hpf Stool Occult Blood Positive H (Negative) Crossmatch See Detail Assessment and Plan Assessment: Acute on chronic anemia with possible GI bleeding Nothing by mouth PPI Monitor hemoglobin GI consult Monitoring in the ICU UTI Follow-up cultures Rocephin Chronic conditions Diastolic CHF compensated Hypertension Diabetes mellitus on oral hypoglycemic currently on hold continue with insulin sliding scale Hypothyroidism levothyroxine Debility [place] for chronic low back pain due to degenerative joint disease Preformed a thorough record review from recent hospitalization as summarized in HPI CODE STATUS: Full code DVT prophylaxis: Chemical due to GI bleeding Discussed with: Patient, ER, RN Anticipated length of stay more than [address]: Ending clinical course A total of 75 minutes was spent on the care of this complex patient more than 50% of the time was spent in counseling and care coordination.
[2020-04-26 05:03] LABS: Anisocytosis Slight; Basophils % (A) 0 %; Eosinophils # (A) 0.1 k/uL (0-0.7); Eosinophils % (A) 1 %; Hypochromasia Marked; Lymphocytes % (A) 8 %; MCH 24.8 pg (25.0-35.0); MCHC 29.5 g/dL (31.0-37.0); MCV 83.9 fL (80.0-100.0); Mean Platelet Volume 7.4; Microcytosis Slight; Monocytes # (A) 0.7 k/uL (0-1.0); Monocytes % (A) 5 %; Neutrophils # (A) 11.2 k/uL (1.3-7.7); Neutrophils % (A) 84 %; Platelet Count 348 k/uL (150-450); Poikilocytosis Marked; RBC 2.74 m/uL (3.80-5.40); RDW 19.5 % (11.5-15.5); WBC 13.3 k/uL (3.8-10.6)
[2020-04-26 05:06] LABS: HGB 6.8 gm/dL (11.4-16.0)
[2020-04-26 06:52] LABS: Glucose,Whole Blood 128 mg/dL (75-99)
[2020-04-26] MEDS: LEVOTHYROXINE 100 MCG TAB PO SCH (06:53)
[2020-04-26] MEDS ORDERED: FUROSEMIDE 10 MG/ML 4 ML VIAL IV PRN (06:56)
[2020-04-26] MEDS: INSULIN ASPART (NovoLOG) 100 UNIT/ML VIAL SQ SCH ×4 (07:44→23:50)
--- NOTE | 2020-04-26 07:46 | XR ---
EXAMINATION TYPE: XR chest 1V portable DATE OF EXAM: 04/26/2020 Comparison: 04/25/2020 Clinical History: 69-year-old female with ICU patient protocol Findings: Heart mildly enlarged. Mild diffuse interstitial density is unchanged. No shari consolidation or pleu ral effusion. Impression: Mild cardiomegaly. Mild diffuse interstitial densities unchanged. Correlate to exclude mild pulmonary vascular congestion.
[2020-04-26] MEDS: IPRATROPIUM-ALBUTEROL 3 ML NEB INHALATION PRN ×2 (07:59→18:57)
[2020-04-26] MEDS: BUDESONIDE 1 MG/2 ML NEBU INHALATION SCH ×2 (07:59→18:57)
[2020-04-26] MEDS ORDERED: IV FLUID CONTINUATION 1,000 ML IV ONE (08:52)
[2020-04-26] MEDS ORDERED: LIDOCAINE 1% INJ 10MG/ML (20 ML MDV) ONE (08:52)
[2020-04-26] MEDS ORDERED: PROPOFOL 10 MG/ML 20 ML VIAL IV ONE (08:52)
[2020-04-26] MEDS ORDERED: FUROSEMIDE 40 MG TAB PO SCH (09:00)
--- NOTE | 2020-04-26 09:17 | P.PCN ---
Date of Procedure: 04/26/20 Procedure(s) Performed: BRIEF HISTORY: Patient is a -69year-old, pleasant, white female admitted hospital with hemoglobin of 6.8 requiring 2 units of blood transfusion. She had some darker stools. She had an episode of acute upper GI bleed in February 2020 and had an upper endoscopy done and revealed a nonbleeding duodenal ulcer. She is scheduled for repeat upper endoscopy today. PROCEDURE PERFORMED: Esophagogastroduodenoscopy With cautery. PREOPERATIVE DIAGNOSIS:Acute upper GI bleed. IV sedation per anesthesia. PROCEDURE: After informed consent was obtained, the patient was brought into the endoscopy unit. IV sedation was administered by Anesthesia under continuous monitoring. Initially the Olympus GIF-140 video endoscope was inserted into the mouth. Esophagus intubated without any difficulty. It was gradually advanced into the stomach and duodenum and carefully examined. The bulb t of the duodenum appeared normal. in the second portion of the duodenum there was a 5 mm arterial venous malformation with some oozing which was cauterized using a gold probe. The scope at this time was withdrawn to the stomach, adequately insufflated with air, and upon careful examination, mucosa of the antrum, body,highly evidence of gastritis with small specks of red noted with no active bleeding and several of these areas were cauterized with a gold probe. Because of the cardia and the fundus appeared normal. The scope was then withdrawn into the esophagus. The GE junction was located at 39 cm from the incisors. The esophagus appeared normal. There were no erosions or ulcerations seen and the patient tolerated the procedure well. IMPRESSION: 1. Oozing duodenal activity with venous malformation in the second part of the duodenum status post cautery as described above . 2. Gastritis in the body and antrum with multiple small specks of blood but no active bleeding status post cautery. 3. Previously noted duodenal bulbar ulcer completely healed RECOMMENDATIONS: The findings of this examination were discussed with the patient. She'll be started on a full liquid diet. Monitor CBC daily. Continue Protonix 40 mg twice daily.
[2020-04-26] MEDS: PANTOPRAZOLE 40 MG TABLET PO SCH ×2 (09:54→23:50)
--- NOTE | 2020-04-26 09:54 | P.PN ---
Subjective Progress Note Date: 04/26/20 Pt complains of nausea and weakness on my evaluation. Pt was seen immediately s/p EGD, where she had cautery to oozing AVM, also with gastritis. Objective - Vital Signs Vital signs: Vital Signs Temp 98.0 F 04/26/20 08:05 Pulse 74 04/26/20 09:00 Resp 17 04/26/20 09:00 BP 142/59 04/26/20 09:00 Pulse Ox 96 04/26/20 09:00 Intake & Output 04/25/20 04/26/20 04/26/20 18:59 06:59 18:59 Intake Total 700 100 Output Total 1250 405 Balance -550 -305 Weight 78.471 kg 77.4 kg Intake: IV 390 100 0.9 390 0 Blood Product 310 Rc As-1 Unit 310 [id number] Output: Urine 1250 405 Other: Voiding Method Indwelling Catheter Indwelling Catheter - Exam Gen: awake, alert HEENT: normocephalic, atraumatic, good hearing acuity, moist mucous membranes Resp: Posterior crackles, good air exchange, no accessory muscle use, no wheezes, CVS: good distal perfusion x 4, RRR, no murmurs, clicks, gallops GI: soft, NTTP, ND : no SPT, no CVAT, godinez catheter is present MSK: + pitting edema, no clubbing Neuro: non-focal, no sensory deficits, appropriate tone Psych: cooperative, euthymic mood - Labs CBC & Chem 7: 04/26/20 04:10 04/25/20 16:01 Labs: Abnormal Lab Results - Last 24 Hours (Table) 04/25/20 04/25/20 04/25/20 Range/Units 16:01 16:01 16:01 WBC 15.1 H (3.8-10.6) k/uL RBC 2.63 L (3.80-5.40) m/uL Hgb 6.8 L* D (11.4-16.0) gm/dL Hct 21.7 L (34.0-46.0) % MCH (25.0-35.0) pg MCHC (31.0-37.0) g/dL RDW 20.9 H (11.5-15.5) % Neutrophils # 12.9 H (1.3-7.7) k/uL Sodium 133 L (137-145) mmol/L Chloride 95 L (98-107) mmol/L BUN 23 H (7-17) mg/dL Glucose 116 H (74-99) mg/dL POC Glucose (mg/dL) (75-99) mg/dL Total Protein 5.7 L (6.3-8.2) g/dL Albumin 3.1 L (3.5-5.0) g/dL Urine Appearance Turbid H (Clear) Urine Protein 1+ H (Negative) Urine Blood Moderate H (Negative) Ur Leukocyte Esterase Large H (Negative) Urine RBC 17 H (0-5) /hpf Urine WBC >182 H (0-5) /hpf Urine WBC Clumps Many H (None) /hpf Stool Occult Blood (Negative) Crossmatch 04/25/20 04/25/20 04/25/20 Range/Units 16:50 17:13 20:29 WBC (3.8-10.6) k/uL RBC (3.80-5.40) m/uL Hgb (11.4-16.0) gm/dL Hct (34.0-46.0) % MCH (25.0-35.0) pg MCHC (31.0-37.0) g/dL RDW (11.5-15.5) % Neutrophils # (1.3-7.7) k/uL Sodium (137-145) mmol/L Chloride (98-107) mmol/L BUN (7-17) mg/dL Glucose (74-99) mg/dL POC Glucose (mg/dL) 125 H (75-99) mg/dL Total Protein (6.3-8.2) g/dL Albumin (3.5-5.0) g/dL Urine Appearance (Clear) Urine Protein (Negative) Urine Blood (Negative) Ur Leukocyte Esterase (Negative) Urine RBC (0-5) /hpf Urine WBC (0-5) /hpf Urine WBC Clumps (None) /hpf Stool Occult Blood Positive H (Negative) Crossmatch See Detail 04/26/20 04/26/20 Range/Units 04:10 06:51 WBC 13.3 H (3.8-10.6) k/uL RBC 2.74 L (3.80-5.40) m/uL Hgb 6.8 L* (11.4-16.0) gm/dL Hct 23.0 L (34.0-46.0) % MCH 24.8 L (25.0-35.0) pg MCHC 29.5 L (31.0-37.0) g/dL RDW 19.5 H (11.5-15.5) % Neutrophils # 11.2 H (1.3-7.7) k/uL Sodium (137-145) mmol/L Chloride (98-107) mmol/L BUN (7-17) mg/dL Glucose (74-99) mg/dL POC Glucose (mg/dL) 128 H (75-99) mg/dL Total Protein (6.3-8.2) g/dL Albumin (3.5-5.0) g/dL Urine Appearance (Clear) Urine Protein (Negative) Urine Blood (Negative) Ur Leukocyte Esterase (Negative) Urine RBC (0-5) /hpf Urine WBC (0-5) /hpf Urine WBC Clumps (None) /hpf Stool Occult Blood (Negative) Crossmatch Assessment and Plan Assessment: 1. Acute Blood Loss Anemia on chronic anemia, secondary to Upper GI Bleed 2. Complicated Urinary Tract Infection 3. Acute on Chronic Diastolic Heart Failure 4. Acute on Chronic Hypoxemic Respiratory Failure 5. Hypertension 6. Diabetes, type II 7. Hypothyroidism 8. Physical Debility 9. Chronic Low Back Pain 69 year old woman with HTN/DM, hypothyroidism, chronic low back pain with naheed cotic dependence, diastolic heart failure presented with acute blood loss anemia from upper GI source, then developed acute on chronic hypoxemic respiratory failure from heart failure exacerbation after receiving blood products. #ABLA/GIB full liquid diet PPI BID Monitor hemoglobin q6h GI consult following, s/p EGD = oozing AVM (cauterized), gastritis, healed prior ulcer from 1 month ago Monitoring in the ICU, if counts stable, can transfer to the floor later today #UTI Follow-up cultures Rocephin #RF/HF, currently requiring 3L, baseline O2 is 2L - I/Os, daily weights - lasix 40mg IV BID until back to baseline Chronic Conditions #Hypertension #Diabetes mellitus on oral hypoglycemic currently on hold continue with insulin sliding scale #Hypothyroidism levothyroxine #Debility #[place] for chronic low back pain due to degenerative joint disease Preformed a thorough record review from recent hospitalization as summarized in HPI CODE STATUS: Full code DVT prophylaxis: Chemical due to GI bleeding Discussed with: Patient, ER, RN Anticipated length of stay more than [address]: Pending clinical course
[2020-04-26] MEDS: ATORVASTATIN 40 MG TAB PO SCH (09:55)
[2020-04-26] MEDS: METOPROLOL TARTRATE 25 MG TAB PO SCH ×3 (09:55→23:50)
[2020-04-26] MEDS: MONTELUKAST 10 MG TAB PO SCH (09:55)
[2020-04-26] MEDS: FUROSEMIDE 10 MG/ML 4 ML VIAL IV SCH ×2 (09:56→23:49)
--- NOTE | 2020-04-26 10:32 | P.CNPUL ---
History of Present Illness Consult date: 04/26/20 Requesting physician: Adrienne Elliott Reason for consult: other (GI bleeding) Chief complaint: Generalized weakness History of present illness: This is a 69-year-old female with history of multiple medical problems including severe COPD, chronic hypoxic respiratory failure secondary to COPD, uses nocturnally oxygen. History of chronic diastolic congestive heart failure, diabetes, hypothyroidism, and chronic anemia. Patient was discharged from the hospital in late February and early March, she was admitted mostly with COPD exacerbation and acute diastolic congestive heart failure as well as urinary tract infection, patient was eventually discharged to [facility]. And she had subacute rehabilitation. She was recently discharged from rehab, and she was at home for the last 2 weeks complaining of progressive weakness. She had no fever, no chills, no weight loss, no chest pain, no shortness of breath, she had no nausea no vomiting, but has been complaining of some vague left upper quadrant pain, patient was brought into the ER, and she was found to have a low hemoglobin of 6.8. Patient had previous history of duodenal ulcer. Hence she is not on any nonsteroidal anti-inflammatory drugs, she does take baby aspirin only. Chest x-ray in the ER showed small tiny pleural effusions improved compared to previous exam. CT of the abdomen, showed mild right sided hydroneph rosis and hydroureter. No obstructing calculus noted. Considering her low hemoglobin and positive Hemoccult stools patient was admitted to the ICU. She received so far 1 unit of packed RBCs, and she is scheduled to undergo EGD by Dr. Singh today. Repeat hemoglobin is pending Review of Systems Constitutional: Generalized weakness. Fatigue. No weight loss. Eyes: denies blurred vision, denies pain Ears, nose, mouth and throat: Denies headache, Denies sore throat Cardiovascular: Slight increased swelling in lower extremities otherwise negative. Respiratory: Denies cough wheezing or shortness of breath. Gastrointestinal: As noted in HPI, mostly vague abdominal discomfort, no melena, no hematemesis. Genitourinary: Denies dysuria, Denies hematuria Musculoskeletal: Mostly symptoms of weakness. Integumentary: Denies pruritus, Denies rash Neurological: Denies numbness, no headache or blurred vision or dizziness. Psychiatric: Denies anxiety, Denies depression Endocrine: No heat or cold intolerance Past Medical History Past Medical History: Asthma, Chest Pain / Angina, COPD, Diabetes Mellitus, Hyperlipidemia, Hypertension, Osteoarthritis (OA), Respiratory Disorder, Skin Disorder, Thyroid Disorder Additional Past Medical History / Comment(s): Obesity (BMI 35) COPD, asthma, diabetes , depression, 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 The patient is also a smoker. The patient has chronic back pain. History of Any Multi-Drug Resistant Organisms: None Reported Past Surgical History: Appendectomy, Section, Cholecystectomy, Orthopedic Surgery, Tubal Ligation Additional Past Surgical History / Comment(s): LASER SX JETHRO EYES FOR GLAUCOMA. RT KNEE ARTHROSCOPY. UNDERWENT PERCUTANEOUS NEPHROSTOLITHOTOMY Past Anesthesia/Blood Transfusion Reactions: No Reported Reaction Past Psychological History: Anxiety, Depression Smoking Status: Current every day smoker Past Alcohol Use History: None Reported Past Drug Use History: None Reported - Past Family History Mother Additional Family Medical History / Comment(s): emphysema, heart valve problems, in her slepp. Brother(s) Family Medical History: Cancer Additional Family Medical History / Comment(s): from oral cancer Father Brother(s) Family Medical History: Cancer Additional Family Medical History / Comment(s): heart disease Medications and Allergies Home Medications Medication Instructions Recorded Confirmed Type Zafirlukast [Accolate] 20 mg PO BID 02/06/14 03/11/20 History ARIPiprazole [Abilify] 5 mg PO HS 02/07/18 03/11/20 History metFORMIN HCL [Glucophage] 1,000 mg PO BID 02/07/18 03/11/20 History Atorvastatin [Lipitor] 40 mg PO DAILY #30 tab 09/10/18 03/11/20 Rx Metoprolol Tartrate [Lopressor] 25 mg PO TID #90 tab 09/10/18 03/11/20 Rx Cholecalciferol [Vitamin D3 (25 1,000 unit PO DAILY 09/03/19 03/11/20 History Mcg = 1000 Iu)] Levothyroxine Sodium [Synthroid] 200 mcg PO DAILY 09/03/19 03/11/20 History Albuterol Sulfate [Ventolin HFA] 1 - 2 puff INHALATION RT-Q6H PRN 03/11/20 03/11/20 History Escitalopram [Lexapro] 20 mg PO DAILY 03/11/20 03/11/20 History Budesonide [Pulmicort] 1 mg INHALATION RT-BID ml 03/27/20 Rx Formoterol Fumarate [Perforomist] 20 mcg INHALATION RT-BID nebu 03/27/20 Rx Furosemide [Lasix] 40 mg PO BID #60 tablet 03/27/20 Rx HYDROcodone/APAP 7.5-325MG [Liberal 1 tab PO Q6H PRN #12 tab 03/27/20 Rx 7.5-325] Ipratropium-Albuterol Nebulize 3 ml INHALATION RT-Q2H PRN ml 03/27/20 Rx [Duoneb 0.5 mg-3 mg/3 ml Soln] Pantoprazole Sodium [Protonix] 40 mg PO BID #60 tablet. 03/27/20 Rx methylPREDNISolone [Medrol Dose 4 mg PO DIRECTED #1 pack 03/27/20 Rx Pack] Allergies Allergy/AdvReac Type Severity Reaction Status Date / Time adhesive Allergy Rash/Hives Verified 04/25/20 15:10 ciprofloxacin [From Cipro] Allergy Rash/Hives Verified 04/25/20 15:10 ciprofloxacin HCl Allergy Rash/Hives Verified 04/25/20 15:10 [From Cipro] latex Allergy Rash/Hives Verified 04/25/20 15:10 nitrofurantoin Allergy Rash/Hives Verified 04/25/20 15:10 [From Macrobid] nitrofurantoin Allergy Rash/Hives Verified 04/25/20 15:10 macrocrystalline [From Macrobid] Penicillins Allergy Rash/Hives Verified 04/25/20 15:10 propoxyphene HCl Allergy Rash/Hives Verified 04/25/20 15:10 [From Darvon] propoxyphene napsylate Allergy Unknown Verified 04/25/20 15:10 [From Darvocet-N] Physical Exam Vitals: Vital Signs Temp Pulse Resp BP BP Pulse Ox 04/26/20 10:10 98.2 F 70 20 138/58 04/26/20 10:00 73 7 L 134/54 95 04/26/20 09:50 79 12 134/54 97 04/26/20 09:40 71 4 L 134/54 98 04/26/20 09:00 74 17 142/59 96 04/26/20 08:12 78 04/26/20 08:05 98.0 F 20 142/59 95 04/26/20 08:01 75 04/26/20 08:00 98.0 F 75 22 136/59 93 L 04/26/20 07:00 80 16 116/54 92 L 04/26/20 06:00 75 23 125/52 94 L 04/26/20 05:00 70 23 124/51 94 L 04/26/20 04:00 97.4 F L 65 22 123/43 94 L 04/26/20 03:00 66 15 108/44 95 04/26/20 02:00 65 22 110/61 95 04/26/20 01:00 73 24 123/49 92 L 04/26/20 00:00 97.7 F 71 22 125/51 95 04/25/20 23:00 69 15 139/53 97 04/25/20 22:00 73 22 147/58 98 04/25/20 21:45 97.8 F 78 17 148/67 04/25/20 21:00 77 16 147/58 98 04/25/20 20:22 97.5 F L 80 18 157/53 04/25/20 20:00 155/58 98 04/25/20 19:52 97.4 F L 82 18 155/58 98 04/25/20 19:42 97.5 F L 79 18 162/57 99 04/25/20 19:02 138/43 04/25/20 19:00 75 18 138/43 96 04/25/20 18:12 78 04/25/20 18:02 76 04/25/20 18:00 75 18 114/51 97 04/25/20 17:14 69 18 115/51 100 04/25/20 15:06 98.2 F 80 18 135/71 94 L Intake and Output 04/25/20 04/26/20 04/26/20 22:59 06:59 14:59 Intake Total 310 390 100 Output Total 1250 405 Balance 310 -860 -305 Intake: IV 390 100 0.9 390 0 Blood Product 310 0 Rc As-1 Unit 0 [id number] Rc As-1 Unit 310 [id number] Output: Urine 1250 405 Other: Voiding Method Indwelling Catheter Indwelling Catheter Weight 78.471 kg 77.4 kg GENERAL EXAM: 69-year-old white female, obese, on 2 L nasal cannula. HEENT: PERRLA, EOMI, no icterus. Short obese neck, no neck masses, no JVD. CHEST: No chest wall deformity. Symmetrical expansion. LUNGS: Diminished breath sounds at the bases no crackles or rhonchi or wheezes. CVS: Regular rate and rhythm, normal S1 and S2, no gallops, no murmurs, no rubs ABDOMEN: Obese, Soft, nontender. No hepatosplenomegaly, normal bowel sounds, no guarding or rigidity. EXTREMITIES: No clubbing, 1+ bipedal edema. MUSCULOSKELETAL: Muscle strength and tone normal. SPINE: No scoliosis or deformity SKIN: No rashes CENTRAL NERVOUS SYSTEM: Alert and oriented 3, no gross focal neurologic deficits. PSYCHIATRIC: Normal mood, affect and normal mental status examination. Results - Laboratory Findings CBC and BMP: 04/26/20 04:10 04/25/20 16:01 PT/INR, D-dimer PT 10.8 sec (9.0-12.0) 04/25/20 16:01 INR 1.0 (<1.2) 04/25/20 16:01 Abnormal lab findings: Abnormal Labs 04/25/20 04/25/20 04/25/20 16:01 16:01 16:01 WBC 15.1 H RBC 2.63 L Hgb 6.8 L* D Hct 21.7 L MCH MCHC RDW 20.9 H Neutrophils # 12.9 H Sodium 133 L Chloride 95 L BUN 23 H Glucose 116 H POC Glucose (mg/dL) Total Protein 5.7 L Albumin 3.1 L Urine Appearance Turbid H Urine Protein 1+ H Urine Blood Moderate H Ur Leukocyte Esterase Large H Urine RBC 17 H Urine WBC >182 H Urine WBC Clumps Many H Stool Occult Blood Crossmatch 04/25/20 04/25/20 04/25/20 16:50 17:13 20:29 WBC RBC Hgb Hct MCH MCHC RDW Neutrophils # Sodium Chloride BUN Glucose POC Glucose (mg/dL) 125 H Total Protein Albumin Urine Appearance Urine Protein Urine Blood Ur Leukocyte Esterase Urine RBC Urine WBC Urine WBC Clumps Stool Occult Blood Positive H Crossmatch See Detail 04/26/20 04/26/20 04:10 06:51 WBC 13.3 H RBC 2.74 L Hgb 6.8 L* Hct 23.0 L MCH 24.8 L MCHC 29.5 L RDW 19.5 H Neutrophils # 11.2 H Sodium Chloride BUN Glucose POC Glucose (mg/dL) 128 H Total Protein Albumin Urine Appearance Urine Protein Urine Blood Ur Leukocyte Esterase Urine RBC Urine WBC Urine WBC Clumps Stool Occult Blood Crossmatch - Diagnostic Findings Additional studies: As noted in HPI. Assessment and Plan Assessment: Impression: Acute blood loss anemia secondary to upper GI bleeding unless proven otherwise. Acute bacteriuria and pyuria, suspect acute urinary tract infection, cultures are pending. Chronic diastolic congestive heart failure Chronic hypoxic respiratory failure, mostly secondary to diastolic congestive heart failure and underlying COPD. Type 2 diabetes. Benign essential hypertension. History of hypothyroidism. 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 Gastritis in the body of the antrum with multiple small specks of blood but no active bleeding Previous duodenal ulcer completely healed. Continue Protonix. Transfuse to a hemoglobin above 7, continue to monitor hemoglobin every 4 hours. For the next 24 hours. Continue home O2. Antibiotics for UTI, and check urine cultures. Patient is now on Rocephin. Started in the ER on admission. Resume home meds and bronchodilators. Continue to monitor in the ICU for the next 24 hours. We will continue to follow. Time with Patient: Greater than 30
--- NOTE | 2020-04-26 11:46 | CONS ---
CONSULTATION DATE OF CONSULTATION: 04/26/2020 REASON FOR CONSULTATION: Severe symptomatic anemia and dark-colored stools. HISTORY OF PRESENT ILLNESS: The patient is a 69-year-old pleasant white female with history of COPD on home O2, congestive heart failure, diabetes mellitus, admitted to the hospital because of progressive weakness for the last few days duration. Apparently she was having shortness of breath as well as some epigastric upper abdominal pain for the last 2 weeks. She came to the emergency room and was noted to have a hemoglobin of 6.8 g/dL. Her baseline was about 8 g/dL a few weeks ago. She was also noted to have dark colored tarry stools on rectal examination by the ER physician and hence we are consulted for possible upper GI source of bleeding. The patient denies any nausea, vomiting. She denies any obvious bleeding that she has noticed. She did have an upper GI bleed during her last hospitalization in February of 2020 and had an upper endoscopy by Dr. King on March 18 and was noted to have a 1.5 cm duodenal nonbleeding ulcer at that time. She denies any recent NSAID use. PAST MEDICAL HISTORY: Significant for asthma, COPD, diabetes mellitus, hypertension, hyperlipidemia, hypothyroidism, peptic ulcer disease. PAST SURGICAL HISTORY: Appendectomy cholecystectomy, , tubal ligation, bilateral surgeries for glaucoma. MEDICATIONS: Medications at home include Abilify, Accolate, Glucophage, Lipitor Lopressor, vitamin D3, Synthroid, Ventolin, Lexapro, Pulmicort, Lasix, albuterol, DuoNeb, methylprednisone Dosepak and [place]. ALLERGIES: DARVON, DARVOCET, PENICILLIN, MACROBID. SOCIAL HISTORY: Remote history of smoking. No alcohol use. FAMILY HISTORY: Mother had emphysema. Brother oral cancer. Father coronary artery disease. REVIEW OF SYSTEMS: CARDIOPULMONARY: She denies any chest pain. She does complain of shortness of breath. : No dysuria or hematuria. MUSCULOSKELETAL: Unremarkable. SKIN: Unremarkable. ENDOCRINE: Unremarkable. GI: As mentioned above. ENT: Vision unremarkable. HEMATOLOGY: Severe anemia. CONSTITUTIONAL: No recent weight loss. No fever, chills, night sweats. PHYSICAL EXAMINATION: She appears comfortable. No apparent distress. VITAL SIGNS: Stable. Blood pressure is 142/59, pulse rate 78, temperature 98. HEENT: Examination unremarkable. Conjunctivae are pink. Sclerae anicteric. Oral cavity no lesions. NECK: No JVD or lymph node enlargement. CHEST: Clear to auscultation. HEART: Regular rate and rhythm. ABDOMEN: Soft. There was tenderness in the epigastric and left upper quadrant area. Rest of the abdomen was benign. Bowel sounds are positive. No organomegaly. EXTREMITIES: No pedal edema. SKIN: No rashes. NEUROLOGIC: Alert and oriented x3. No focal deficits. LABS: WBC 15.1, hemoglobin 6.8, platelets normal. PT/INR is within normal limits. Basic metabolic panel showed a BUN of 23, creatinine 0.58. Rest of the labs are within normal limits. Stool occult blood was positive. Urinalysis showed leukocyte esterase large amount. IMPRESSION: 1. Acute gastrointestinal bleed with melenic stools and hemoglobin of 6.8 g/dL, status post one unit of PRBC transfusion. Patient complains of upper abdominal pain. Her last EGD on March 18 of this year did show evidence of nonbleeding 1.5 cm duodenal bulbar ulcer which was done by Dr. King. Most likely at this time dealing with recurrent peptic ulcer disease. 2. Severe anemia, status post one unit of blood transfusion. 3. Chronic obstructive pulmonary disease exacerbation. 4. History of hypertension and hyperlipidemia. RECOMMENDATIONS: 1. Keep her n.p.o. 2. We will proceed with an upper endoscopy today. 3. Continue Protonix 40 mg twice daily. 4. CBC q.12 hours and transfuse if the hemoglobin is less than 7. 5. We will follow with you closely. Further recommendations will follow based on the upper endoscopy results. Thank you for this consultation. MMODL / IJN: [id number] /
[2020-04-26 11:53] LABS: Glucose,Whole Blood 116 mg/dL (75-99)
[2020-04-26 16:34] LABS: Glucose,Whole Blood 161 mg/dL (75-99)
[2020-04-26 19:56] LABS: Anisocytosis Slight; HCT 27.3 % (34.0-46.0); HGB 8.1 gm/dL (11.4-16.0); Hypochromasia Marked; MCH 25.2 pg (25.0-35.0); MCHC 29.7 g/dL (31.0-37.0); MCV 84.8 fL (80.0-100.0); Mean Platelet Volume 7.2; Platelet Count 438 k/uL (150-450); Poikilocytosis Marked; RBC 3.22 m/uL (3.80-5.40); RDW 18.6 % (11.5-15.5); WBC 16.1 k/uL (3.8-10.6)
[2020-04-26 19:58] LABS: Glucose,Whole Blood 172 mg/dL (75-99)
[2020-04-27 01:06] LABS: Anisocytosis Slight; HCT 25.6 % (34.0-46.0); HGB 7.8 gm/dL (11.4-16.0); Hypochromasia Marked; MCH 25.5 pg (25.0-35.0); MCHC 30.6 g/dL (31.0-37.0); MCV 83.5 fL (80.0-100.0); Mean Platelet Volume 7.1; Microcytosis Slight; Platelet Count 383 k/uL (150-450); Poikilocytosis Moderate; RBC 3.06 m/uL (3.80-5.40); RDW 18.9 % (11.5-15.5); WBC 13.9 k/uL (3.8-10.6)
--- NOTE | 2020-04-27 06:31 | XR ---
EXAMINATION TYPE: XR chest 1V portable DATE OF EXAM: 04/27/2020 CLINICAL HISTORY: Difficulty breathing progress study. TECHNIQUE: Single AP portable upright view of the chest is obtained. COMPARISON: Chest x-ray from one day earlier and older studies. FINDINGS: There is cardiomegaly with atherosclerotic thoracic aorta. Background chronic parenchymal change without suspicious new focal airspace opacity, pleural effusion, or pneumothorax seen bilatera lly. Osseous structures remain intact. IMPRESSION: Chronic parenchymal change and cardiomegaly without new suspicious acute pulmonary proces s.
[2020-04-27 06:52] LABS: Glucose,Whole Blood 129 mg/dL (75-99)
[2020-04-27] MEDS: INSULIN ASPART (NovoLOG) 100 UNIT/ML VIAL SQ SCH ×2 (06:53→12:12)
[2020-04-27] MEDS: LEVOTHYROXINE 100 MCG TAB PO SCH (06:55)
[2020-04-27 07:23] LABS: Anisocytosis Slight; HGB 7.9 gm/dL (11.4-16.0); Hypochromasia Marked; MCH 25.5 pg (25.0-35.0); MCHC 30.5 g/dL (31.0-37.0); MCV 83.5 fL (80.0-100.0); Mean Platelet Volume 7.1; Microcytosis Slight; Platelet Count 401 k/uL (150-450); Poikilocytosis Moderate; RBC 3.11 m/uL (3.80-5.40); WBC 14.1 k/uL (3.8-10.6)
[2020-04-27 07:40] LABS: African American GFR (CKD) >90 (>60 ml/min/1.73 sqM); Anion Gap 6 mmol/L; Blood Urea Nitrogen 14 mg/dL (7-17); Calcium 8.2 mg/dL (8.4-10.2); Carbon Dioxide 32 mmol/L (22-30); Chloride 95 mmol/L (98-107); Glucose 120 mg/dL (74-99); Magnesium 1.4 mg/dL (1.6-2.3); Non-African American GFR(CKD) >90 (>60 ml/min/1.73 sqM); Potassium 3.9 mmol/L (3.5-5.1); Sodium 133 mmol/L (137-145)
[2020-04-27] MEDS: MAGNESIUM SULFATE-D5W PMX 1 GM in DEXTROSE/WATER 1 100ML.BAG IVPB SCH ×2 (08:15→11:05)
[2020-04-27] MEDS: MONTELUKAST 10 MG TAB PO SCH (08:16)
[2020-04-27] MEDS: FUROSEMIDE 10 MG/ML 4 ML VIAL IV SCH (08:17)
[2020-04-27] MEDS: ATORVASTATIN 40 MG TAB PO SCH (08:17)
[2020-04-27] MEDS: PANTOPRAZOLE 40 MG TABLET PO SCH (08:17)
[2020-04-27] MEDS: METOPROLOL TARTRATE 25 MG TAB PO SCH ×2 (08:17→16:01)
[2020-04-27] MEDS: BUDESONIDE 1 MG/2 ML NEBU INHALATION SCH (09:26)
[2020-04-27] MEDS: IPRATROPIUM-ALBUTEROL 3 ML NEB INHALATION PRN (09:26)
--- NOTE | 2020-04-27 10:32 | P.DS ---
Providers Date of admission: 04/25/20 18:33 Expected date of discharge: 04/27/20 Attending physician: Adrienne Elliott DO Consults: 04/25/20 19:33 Consult Physician Stat Consulting Provider: Christopher Cho Consult Reason/Comments: GI bleed, UTI Do you want consulting provider notified?: Yes Consult Physician Stat Consulting Provider: Gabriella Kessler Consult Reason/Comments: GI bleed Do you want consulting provider notified?: Yes Primary care physician: Connor [facility] Course: This is a 69-year-old female with complex past medical history noted below who presented to the emergency room with generalized weakness progressing over 2 weeks. Patient was evaluated in the ER and admitted to the hospital for further management of her medical problems noted below. 1. Acute on chronic blood loss anemia: With hemoglobin of 6.8 on presentation. Patient received 2 units of blood during this admission. Hemoglobin stabilized around 8 on the day of discharge. 2. Upper GI bleed, seen and evaluated by GI. Status post EGD with cauterization of oozing AVMs. Prior duodenal ulcer appears to be healing well. Some gastritis noted as well. Continue Protonix twice daily. No evidence of ongoing GI bleed. 3. Uncomplicated UTI, started on IV ceftriaxone. Would finish antibiotic with oral Keflex. Follow-up on blood culture with PCP. 3. Acute on chronic diastolic heart failure, received IV Lasix during this admission. Repeat chest x-ray showed stable findings. Currently at baseline oxygen requirement. 4. Acute on chronic hypoxic respiratory failure on 2 L of oxygen at baseline 5. Chronic medical problems, hypertension, type 2 diabetes, hypothyroidism, severe COPD, and physical debility Patient will be discharged home in a stable condition. She will follow-up with GI and her PCP as directed. For further details about this hospitalization please refer to the electronic chart. Patient Condition at Discharge: Fair Plan - Discharge Summary New Discharge Prescriptions: New Cephalexin [Keflex] 500 mg PO Q8HR 3 Days #9 cap Continue Zafirlukast [Accolate] 20 mg PO BID metFORMIN HCL [Glucophage] 1,000 mg PO BID-W/MEALS ARIPiprazole [Abilify] 5 mg PO HS Atorvastatin [Lipitor] 40 mg PO DAILY #30 tab Metoprolol Tartrate [Lopressor] 25 mg PO TID #90 tab Cholecalciferol [Vitamin D3 (25 Mcg = 1000 Iu)] 1,000 unit PO DAILY Levothyroxine Sodium [Synthroid] 200 mcg PO DAILY Albuterol Sulfate [Ventolin HFA] 1 - 2 puff INHALATION RT-Q6H PRN PRN Reason: Shortness Of Breath Escitalopram [Lexapro] 20 mg PO DAILY Ipratropium-Albuterol Nebulize [Duoneb 0.5 mg-3 mg/3 ml Soln] 3 ml INHALATION RT-Q2H PRN ml PRN Reason: Shortness Of Breath Or Wheezing Formoterol Fumarate [Perforomist] 20 mcg INHALATION RT-BID nebu Pantoprazole Sodium [Protonix] 40 mg PO BID #60 tablet. Budesonide [Pulmicort] 1 mg INHALATION RT-BID ml HYDROcodone/APAP 7.5-325MG [Trinity 7.5-325] 1 tab PO Q6H PRN #12 tab PRN Reason: Pain Furosemide [Lasix] 40 mg PO DAILY Discharge Medication List Zafirlukast [Accolate] 20 mg PO BID 02/06/14 [History] ARIPiprazole [Abilify] 5 mg PO HS 02/07/18 [History] metFORMIN HCL [Glucophage] 1,000 mg PO BID-W/MEALS 02/07/18 [History] Atorvastatin [Lipitor] 40 mg PO DAILY #30 tab 09/10/18 [Rx] Metoprolol Tartrate [Lopressor] 25 mg PO TID #90 tab 09/10/18 [Rx] Cholecalciferol [Vitamin D3 (25 Mcg = 1000 Iu)] 1,000 unit PO DAILY 09/03/19 [History] Levothyroxine Sodium [Synthroid] 200 mcg PO DAILY 09/03/19 [History] Albuterol Sulfate [Ventolin HFA] 1 - 2 puff INHALATION RT-Q6H PRN 03/11/20 [History] Escitalopram [Lexapro] 20 mg PO DAILY 03/11/20 [History] Budesonide [Pulmicort] 1 mg INHALATION RT-BID ml 03/27/20 [Rx] Formoterol Fumarate [Perforomist] 20 mcg INHALATION RT-BID nebu 03/27/20 [Rx] HYDROcodone/APAP 7.5-325MG [Trinity 7.5-325] 1 tab PO Q6H PRN #12 tab 08/08/20 [Rx] Ipratropium-Albuterol Nebulize [Duoneb 0.5 mg-3 mg/3 ml Soln] 3 ml INHALATION RT-Q2H PRN ml 03/27/20 [Rx] Pantoprazole Sodium [Protonix] 40 mg PO BID #60 tablet.dr 03/27/20 [Rx] Cephalexin [Keflex] 500 mg PO Q8HR 3 Days #9 cap 04/27/20 [Rx] Furosemide [Lasix] 40 mg PO DAILY 04/27/20 [History] Follow up Appointment(s)/Referral(s): Gabriella Kessler MD [STAFF PHYSICIAN] - 2 Weeks Connor Carreon [Primary Care Provider] - 1-2 days Discharge Disposition: HOME WITH HOME HEALTH SERVICES
[2020-04-27 12:12] LABS: Glucose,Whole Blood 211 mg/dL (75-99)
--- NOTE | 2020-04-27 12:25 | P.PN ---
Subjective Progress Note Date: 04/27/20 Principal diagnosis: Acute blood loss anemia secondary to upper GI bleeding This is a 69-year-old female with history of multiple medical problems including severe COPD, chronic hypoxic respiratory failure secondary to COPD, uses nocturnally oxygen. History of chronic diastolic congestive heart failure, diabetes, hypothyroidism, and chronic anemia. Patient was discharged from the hospital in late February and early March, she was admitted mostly with COPD exacerbation and acute diastolic congestive heart failure as well as urinary tract infection, patient was eventually discharged to [facility]. And she had subacute rehabilitation. She was recently discharged from rehab, and she was at home for the last 2 weeks complaining of progressive weakness. She had no fever, no chills, no weight loss, no chest pain, no shortness of breath, she had no nausea no vomiting, but has been complaining of some vague left upper quadrant pain, patient was brought into the ER, and she was found to have a low hemoglobin of 6.8. Patient had previous history of duodenal ulcer. Hence she is not on any nonsteroidal anti-inflammatory drugs, she does take baby aspirin only. Chest x-ray in the ER showed small tiny pleural effusions improved compared to previous exam. CT of the abdomen, showed mild right sided hydronephrosis and hydroureter. No obstructing calculus noted. Considering her low hemoglobin and positive Hemoccult stools patient was admitted to the ICU. She received so far 1 unit of packed RBCs, and she is scheduled to undergo EGD by Dr. Singh today. Repeat hemoglobin is pending On 04/27/2020 patient seen in follow-up in intensive care unit. She is awake and alert, in no acute distress, she is resting in bed, currently on 2 L of oxygen with a pulse ox of 93%, no running IVs, IV fluids have been hep-locked. Patient did receive 2 units of packed red blood cells this admission on 04/25/2020 and on 04/26/2020, and today's hemoglobin is 7.9. 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 There was a previously noted duodenal bulbar ulcer has completely healed. Hemodynamically patient is stable, not on any pressors, blood pressure is 151 and 56, patient is in sinus mechanism, with a rate of 61 BPM. Denies any abdominal pain, no nausea or vomiting. Lung sounds reveal a few bibasilar crackles, patient remains on IV Lasix, today's chest x-ray shows chronic parenchymal changes and cardiomegaly without new acute pulmonary process. Urine culture shows a group D enterococcus, we'll give the patient 1 time dose of vancomycin. Objective - Vital Signs Vital signs: Vital Signs Temp 98.4 F 04/27/20 08:00 Pulse 61 04/27/20 10:00 Resp 17 04/27/20 10:00 BP 151/56 04/27/20 10:00 Pulse Ox 94 L 04/27/20 08:00 Intake & Output 04/26/20 04/27/20 04/27/20 18:59 06:59 18:59 Intake Total 720 120 200 Output Total 2060 300 1100 Balance -1340 -180 -900 Weight 77.5 kg Intake: IV 100 200 0.9 0 Magnesium Sulfate-D5w Pmx 200 1 gm In Dextrose/Water 1 100ml.bag @ 100 mls/hr IVPB Q1H [facility] Rx#: [id number] Oral 120 Blood Product 620 Rc As-1 Unit 310 [id number] Output: Urine 2060 300 1100 Other: Voiding Method Indwelling Catheter Indwelling Catheter Indwelling Catheter # Bowel Movements 1 - Exam GENERAL EXAM: Alert, very pleasant, 69-year-old white female, on 2 L of oxygen, with a pulse ox of 93% comfortable in no apparent distress. HEAD: Normocephalic/atraumatic. EYES: Normal reaction of pupils, equal size. Conjunctiva pink, sclera white. NOSE: Clear with pink turbinates. THROAT: No erythema or exudates. NECK: No masses, no JVD, no thyroid enlargement, no adenopathy. CHEST: No chest wall deformity. Symmetrical expansion. LUNGS: Equal air entry with no crackles, wheeze, rhonchi or dullness. CVS: Regular rate and rhythm, normal S1 and S2, no gallops, no murmurs, no rubs ABDOMEN: Soft, nontender. No hepatosplenomegaly, normal bowel sounds, no guarding or rigidity. EXTREMITIES: No clubbing, no edema, no cyanosis, 2+ pulses and upper and lower extremities. MUSCULOSKELETAL: Muscle strength and tone normal. SPINE: No scoliosis or deformity SKIN: No rashes CENTRAL NERVOUS SYSTEM: Alert and oriented -3. No focal deficits, tone is normal in all 4 extremities. PSYCHIATRIC: Alert and oriented -3. Appropriate affect. Intact judgment and insight. - Labs CBC & Chem 7: 04/27/20 07:01 04/27/20 07:01 Labs: Abnormal Lab Results - Last 24 Hours (Table) 04/25/20 04/26/20 04/26/20 Range/Units 16:50 16:32 19:12 WBC 16.1 H (3.8-10.6) k/uL RBC 3.22 L (3.80-5.40) m/uL Hgb 8.1 L (11.4-16.0) gm/dL Hct 27.3 L (34.0-46.0) % MCHC 29.7 L (31.0-37.0) g/dL RDW 18.6 H (11.5-15.5) % Sodium (137-145) mmol/L Chloride (98-107) mmol/L Carbon Dioxide (22-30) mmol/L Glucose (74-99) mg/dL POC Glucose (mg/dL) 161 H (75-99) mg/dL Calcium (8.4-10.2) mg/dL Magnesium (1.6-2.3) mg/dL Crossmatch See Detail 04/26/20 04/27/20 04/27/20 Range/Units 19:57 00:38 06:50 WBC 13.9 H (3.8-10.6) k/uL RBC 3.06 L (3.80-5.40) m/uL Hgb 7.8 L (11.4-16.0) gm/dL Hct 25.6 L (34.0-46.0) % MCHC 30.6 L (31.0-37.0) g/dL RDW 18.9 H (11.5-15.5) % Sodium (137-145) mmol/L Chloride (98-107) mmol/L Carbon Dioxide (22-30) mmol/L Glucose (74-99) mg/dL POC Glucose (mg/dL) 172 H 129 H (75-99) mg/dL Calcium (8.4-10.2) mg/dL Magnesium (1.6-2.3) mg/dL Crossmatch 04/27/20 04/27/20 04/27/20 Range/Units 07:01 07:01 12:10 WBC 14.1 H (3.8-10.6) k/uL RBC 3.11 L (3.80-5.40) m/uL Hgb 7.9 L (11.4-16.0) gm/dL Hct 26.0 L (34.0-46.0) % MCHC 30.5 L (31.0-37.0) g/dL RDW 19.0 H (11.5-15.5) % Sodium 133 L (137-145) mmol/L Chloride 95 L (98-107) mmol/L Carbon Dioxide 32 H (22-30) mmol/L Glucose 120 H (74-99) mg/dL POC Glucose (mg/dL) 211 H (75-99) mg/dL Calcium 8.2 L (8.4-10.2) mg/dL Magnesium 1.4 L (1.6-2.3) mg/dL Crossmatch Microbiology - Last 24 Hours (Table) 04/25/20 16:01 Urine Culture - Preliminary Urine,Voided Group D Enterococcus Assessment and Plan Plan: Assessment: #1. Acute blood loss anemia secondary to upper GI bleeding related to oozing duodenal bleeding, status post cautery. Patient has received 2 units of packed red blood cells, 1 more unit is pending for transfusion for today's hemoglobin of 7.9 #2. Acute bacterial urinary and pyuria, urine culture showed group D enterococcus #3. Chronic diastolic congestive heart failure #4. Chronic hypoxic respiratory failure related to chronic diastolic CHF and underlying COPD #5. Type 2 diabetes mellitus #6. Benign essential hypertension #7. History of hypothyroidism #8. History of nephrolithiasis #9. History of duodenal ulcer #10. History of severe pulmonary hypertension and chronic cor pulmonale Plan: Hemodynamically patient is stable, no active bleeding overnight, no vasopressors, stable blood pressure, no abdominal pain nausea. Patient continues on PPI therapy, she is tolerating clear liquid diet. We'll give the patient 1 time dose of IV vancomycin, urine culture showed group D enterococcus, no fever or chills. Increase activity as tolerated. Discharge home is pending for today and outpatient follow-up with the PCP and GI service I performed a history & physical examination of the patient and discussed their management with my nurse practitioner, Taylor Sheriff. I reviewed the nurse practitioner's note and agree with the documented findings and plan of care. Lung sounds are positive for clear breath sounds. The findings and the impression was discussed with the patient. I attest to the documentation by the nurse practitioner. Time with Patient: Less than 30
[2020-04-27] MEDS ORDERED: VANCOMYCIN IV PER PHARMACY 1 EACH MISC MISCELLANE PRN (12:26)
[2020-04-27] MEDS ORDERED: VANCOMYCIN 1,500 MG in SODIUM CHLORIDE 0.9% 250 ML IVPB ONE (12:45)
[2020-04-27 14:05] VITALS: PULSE 58; RESP 19; TEMP 98.2
[2020-04-27 14:11] LABS: Glucose,Whole Blood 134 mg/dL (75-99)
[2020-04-27 16:05] VITALS: BP 158/57
[2020-04-27] MEDS ORDERED: VANCOMYCIN 1,500 MG in SODIUM CHLORIDE 0.9% 250 ML IVPB SCH (22:00)
== END 2020-04-27 16:26 | disposition home health service (06) | DRG 377 ==
LOC: EC 15:00 → 2SICU 18:33
PROVIDERS: ADMIT Internal Medicine; ATTEND Internal Medicine
PROC: 30233N1 Transfusion of Nonautologous Red Blood Cells into Peripheral Vein, Percutaneous Approach (ICD-10-PCS; 2020-04-25)
PROC: 0W3P8ZZ Control Bleeding in Gastrointestinal Tract, Via Natural or Artificial Opening Endoscopic (ICD-10-PCS; principal; 2020-04-26 08:06)
DX: K31.811 Angiodysplasia of stomach and duodenum with bleeding (principal); I50.33 Acute on chronic diastolic (congestive) heart failure; J96.21 Acute and chronic respiratory failure with hypoxia; N13.6 Pyonephrosis; J44.1 Chronic obstructive pulmonary disease with (acute) exacerbation; D62 Acute posthemorrhagic anemia; I27.22 Pulmonary hypertension due to left heart disease; I27.81 Cor pulmonale (chronic); I11.0 Hypertensive heart disease with heart failure; Z99.81 Dependence on supplemental oxygen; E11.9 Type 2 diabetes mellitus without complications; E03.9 Hypothyroidism, unspecified; G89.29 Other chronic pain; M19.90 Unspecified osteoarthritis, unspecified site; E78.5 Hyperlipidemia, unspecified; F32.9 Major depressive disorder, single episode, unspecified; M51.36 Other intervertebral disc degeneration, lumbar region; I83.90 Asymptomatic varicose veins of unspecified lower extremity; H40.9 Unspecified glaucoma; E66.9 Obesity, unspecified; F17.200 Nicotine dependence, unspecified, uncomplicated; F41.9 Anxiety disorder, unspecified; K59.00 Constipation, unspecified; R53.81 Other malaise; M47.816 Spondylosis without myelopathy or radiculopathy, lumbar region; K29.70 Gastritis, unspecified, without bleeding; M54.5 Low back pain; E83.42 Hypomagnesemia; Z68.35 Body mass index [BMI] 35.0-35.9, adult; Z79.84 Long term (current) use of oral hypoglycemic drugs; Z79.890 Hormone replacement therapy; Z79.899 Other long term (current) drug therapy; Z87.11 Personal history of peptic ulcer disease; Z91.048 Other nonmedicinal substance allergy status; Z91.81 History of falling; Z87.442 Personal history of urinary calculi; Z85.828 Personal history of other malignant neoplasm of skin; Z90.49 Acquired absence of other specified parts of digestive tract; Z98.890 Other specified postprocedural states; Z98.51 Tubal ligation status; Z88.1 Allergy status to other antibiotic agents; Z91.040 Latex allergy status; Z88.0 Allergy status to penicillin; Z88.8 Allergy status to other drugs, medicaments and biological substances; Z82.5 Family history of asthma and other chronic lower respiratory diseases; Z80.8 Family history of malignant neoplasm of other organs or systems; Z82.49 Family history of ischemic heart disease and other diseases of the circulatory system
CPT/HCPCS: 36415; 36430; 43255; 71045; 71046; 74018; 74177; 80048; 80053; 81001; 82272; 83605; 83690; 83735; 84484; 85025; 85027; 85610; 85730; 86850; 86900; 86901; 86920; 87077; 87086; 87186; 93005; 94640; 96365; 96375; 99285

== ENCOUNTER 2020-05-06 17:41 | Inpatient (IN) | payer MEDICARE, OTHER ==
[2020-05-06 18:31] LABS: Anisocytosis Slight; Basophils # (A) 0.1 k/uL (0-0.2); Basophils % (A) 0 %; Eosinophils # (A) 0.7 k/uL (0-0.7); Eosinophils % (A) 4 %; HCT 22.1 % (34.0-46.0); Hypochromasia Marked; Lymphocytes # (A) 1.5 k/uL (1.0-4.8); Lymphocytes % (A) 8 %; MCH 24.3 pg (25.0-35.0); MCHC 29.7 g/dL (31.0-37.0); MCV 81.8 fL (80.0-100.0); Mean Platelet Volume 6.9; Microcytosis Slight; Monocytes % (A) 5 %; Neutrophils # (A) 15.9 k/uL (1.3-7.7); Neutrophils % (A) 82 %; Platelet Count 511 k/uL (150-450); Poikilocytosis Slight; RBC 2.71 m/uL (3.80-5.40); RDW 17.7 % (11.5-15.5); WBC 19.4 k/uL (3.8-10.6)
[2020-05-06 18:33] LABS: HGB 6.6 gm/dL (11.4-16.0)
[2020-05-06 18:37] LABS: ALT 38 U/L (4-34); AST 29 U/L (14-36); African American GFR (CKD) >90 (>60 ml/min/1.73 sqM); Albumin 3.2 g/dL (3.5-5.0); Alkaline Phosphatase 133 U/L (38-126); Anion Gap 8 mmol/L; Blood Urea Nitrogen 31 mg/dL (7-17); Calcium 8.8 mg/dL (8.4-10.2); Carbon Dioxide 30 mmol/L (22-30); Chloride 95 mmol/L (98-107); Glucose 137 mg/dL (74-99); Magnesium 1.6 mg/dL (1.6-2.3); Non-African American GFR(CKD) >90 (>60 ml/min/1.73 sqM); Potassium 4.8 mmol/L (3.5-5.1); Sodium 133 mmol/L (137-145); Total Bilirubin 0.3 mg/dL (0.2-1.3); Total Protein 5.9 g/dL (6.3-8.2)
[2020-05-06 18:45] LABS: Partial Thromboplastin Time 23.8 sec (22.0-30.0); Prothrombin Time 10.1 sec (9.0-12.0)
--- NOTE | 2020-05-06 18:46 | ED ---
General Adult HPI - General Chief complaint: Recheck/Abnormal Lab/Rx Stated complaint: internal bleeding, sent by Dr Time Seen by Provider: 05/06/20 17:55 Source: patient, RN notes reviewed, old records reviewed Mode of arrival: wheelchair Limitations: no limitations - History of Present Illness Initial comments: 69-year-old female presented for low hemoglobin. Patient has a history of chronic anemia. She had laboratory testing performed earlier today and was noted to have a hemoglobin of 5.5. She denies rectal bleeding. She denies melena. She states she has some fatigue and dyspnea with exertion. Patient is very reluctant to provide a detailed history. - Related Data Home Medications Medication Instructions Recorded Confirmed Zafirlukast [Accolate] 20 mg PO BID 02/06/14 04/27/20 ARIPiprazole [Abilify] 5 mg PO HS 02/07/18 04/27/20 metFORMIN HCL [Glucophage] 1,000 mg PO BID-W/MEALS 02/07/18 04/27/20 Cholecalciferol [Vitamin D3 (25 1,000 unit PO DAILY 09/03/19 04/27/20 Mcg = 1000 Iu)] Levothyroxine Sodium [Synthroid] 200 mcg PO DAILY 09/03/19 04/27/20 Albuterol Sulfate [Ventolin HFA] 1 - 2 puff INHALATION RT-Q6H PRN 03/11/20 04/27/20 Escitalopram [Lexapro] 20 mg PO DAILY 03/11/20 04/27/20 Furosemide [Lasix] 40 mg PO DAILY 04/27/20 04/27/20 Previous Rx's Medication Instructions Recorded Atorvastatin [Lipitor] 40 mg PO DAILY #30 tab 09/10/18 Metoprolol Tartrate [Lopressor] 25 mg PO TID #90 tab 09/10/18 Budesonide [Pulmicort] 1 mg INHALATION RT-BID ml 03/27/20 Formoterol Fumarate [Perforomist] 20 mcg INHALATION RT-BID nebu 03/27/20 HYDROcodone/APAP 7.5-325MG [[place] 1 tab PO Q6H PRN #12 tab 03/27/20 7.5-325] Ipratropium-Albuterol Nebulize 3 ml INHALATION RT-Q2H PRN ml 03/27/20 [Duoneb 0.5 mg-3 mg/3 ml Soln] Pantoprazole Sodium [Protonix] 40 mg PO BID #60 tablet. 03/27/20 Cephalexin [Keflex] 500 mg PO Q8HR 3 Days #9 cap 04/27/20 Magnesium Oxide [Mag-Ox] 400 mg PO DAILY #30 tablet 04/27/20 Allergies Allergy/AdvReac Type Severity Reaction Status Date / Time adhesive Allergy Rash/Hives Verified 05/06/20 17:42 ciprofloxacin [From Cipro] Allergy Rash/Hives Verified 05/06/20 17:42 ciprofloxacin HCl Allergy Rash/Hives Verified 05/06/20 17:42 [From Cipro] latex Allergy Rash/Hives Verified 05/06/20 17:42 nitrofurantoin Allergy Rash/Hives Verified 05/06/20 17:42 [From Macrobid] nitrofurantoin Allergy Rash/Hives Verified 05/06/20 17:42 macrocrystalline [From Macrobid] Penicillins Allergy Rash/Hives Verified 05/06/20 17:42 propoxyphene HCl Allergy Rash/Hives Verified 05/06/20 17:42 [From Darvon] propoxyphene napsylate Allergy Unknown Verified 05/06/20 17:42 [From Darvocet-N] Review of Systems ROS Statement: Those systems with pertinent positive or pertinent negative responses have been documented in the HPI. ROS Other: All systems not noted in ROS Statement are negative. Past Medical History Past Medical History: Asthma, Chest Pain / Angina, COPD, Diabetes Mellitus, Hyperlipidemia, Hypertension, Osteoarthritis (OA), Respiratory Disorder, Skin Disorder, Thyroid Disorder Additional Past Medical History / Comment(s): Obesity (BMI 35) COPD, asthma, diabetes , depression, 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 The patient is also a smoker. The patient has chronic b ack pain. History of Any Multi-Drug Resistant Organisms: None Reported Past Surgical History: Appendectomy, Section, Cholecystectomy, Orthope dic Surgery, Tubal Ligation Additional Past Surgical History / Comment(s): LASER SX JETHRO EYES FOR GLAUCOMA. RT KNEE ARTHROSCOPY. UNDERWENT PERCUTANEOUS NEPHROSTOLITHOTOMY Past Anesthesia/Blood Transfusion Reactions: No Reported Reaction Past Psychological History: Anxiety, Depression Smoking Status: Current every day smoker Past Alcohol Use History: None Reported Past Drug Use History: None Reported - Past Family History Mother Additional Family Medical History / Comment(s): emphysema, heart valve problems, in her slepp. Brother(s) Family Medical History: Cancer Additional Family Medical History / Comment(s): from oral cancer Father Brother(s) Family Medical History: Cancer Additional Family Medical History / Comment(s): heart disease General Exam Limitations: no limitations General appearance: alert, in no apparent distress Head exam: Present: atraumatic, normocephalic Eye exam: Present: normal appearance ENT exam: Present: normal exam Neck exam: Present: normal inspection. Absent: tenderness, meningismus Respiratory exam: Present: normal lung sounds bilaterally. Absent: respiratory distress, wheezes Cardiovascular Exam: Present: regular rate, normal rhythm GI/Abdominal exam: Present: soft. Absent: distended, tenderness Extremities exam: Present: pedal edema, other (Left calf is erythematous and swollen) Neurological exam: Present: alert, oriented X3, CN II-XII intact. Absent: motor sensory deficit Psychiatric exam: Present: agitated Skin exam: Present: warm, dry, intact. Absent: cyanosis, diaphoretic Course Vital Signs 05/06/20 05/06/20 05/06/20 17:42 18:16 18:30 Temperature 98.8 F Pulse Rate 95 87 90 Respiratory 18 18 16 Rate Blood Pressure 139/75 125/54 113/63 O2 Sat by Pulse 92 L 96 96 Oximetry 05/06/20 05/06/20 19:00 19:30 Temperature Pulse Rate 92 92 Respiratory 16 18 Rate Blood Pressure 120/52 122/58 O2 Sat by Pulse 96 90 L Oximetry - Reevaluation(s) Reevaluation #1: 05/06/20 18:44 Patient states she she will not have an ultrasound of her left leg although there is some concern for DVT here. She refuses this test. She refuses physica l exam with the exception of listening to her heart and lungs. She states she was just seen by her doctor and does not need an evaluation. 05/06/20 18:45 EKG Findings - EKG Comments: EKG Findings:: EKG: Normal sinus rhythm, left axis deviation, T-wave inversion in the precordial leads, no ST segment elevation, rate of 90, LA interval 146, QRS duration 80, QTC 420. Medical Decision Making - Medical Decision Making 69-year-old female presenting for evaluation of anemia from outpatient lab testing. Hemoglobin is rechecked in the emergency Department is 6.6. She is transfused one unit. Additionally she has an elevated white blood cell count at 19. This is in the setting of what appears to be an acutely infected left leg, cellulitis. She started on antibiotics. Case is discussed with Dr. Murray who will admit patient for serial hemoglobin, GI consultation given the recent GI bleed and IV antibiotics. Patient is currently awaiting transfusion of her first unit. - Lab Data Result diagrams: 05/06/20 18:12 05/06/20 18:12 Lab Results 05/06/20 05/06/20 05/06/20 Range/Units 18:12 18:12 18:12 WBC 19.4 H (3.8-10.6) k/uL RBC 2.71 L (3.80-5.40) m/uL Hgb 6.6 L* (11.4-16.0) gm/dL Hct 22.1 L (34.0-46.0) % MCV 81.8 (80.0-100.0) fL MCH 24.3 L (25.0-35.0) pg MCHC 29.7 L (31.0-37.0) g/dL RDW 17.7 H (11.5-15.5) % Plt Count 511 H (150-450) k/uL Neutrophils % 82 % Lymphocytes % 8 % Monocytes % 5 % Eosinophils % 4 % Basophils % 0 % Neutrophils # 15.9 H (1.3-7.7) k/uL Lymphocytes # 1.5 (1.0-4.8) k/uL Monocytes # 1.0 (0-1.0) k/uL Eosinophils # 0.7 (0-0.7) k/uL Basophils # 0.1 (0-0.2) k/uL Hypochromasia Marked Poikilocytosis Slight Anisocytosis Slight Microcytosis Slight PT 10.1 (9.0-12.0) sec INR 1.0 (<1.2) APTT 23.8 (22.0-30.0) sec Sodium 133 L (137-145) mmol/L Potassium 4.8 (3.5-5.1) mmol/L Chloride 95 L (98-107) mmol/L Carbon Dioxide 30 (22-30) mmol/L Anion Gap 8 mmol/L BUN 31 H (7-17) mg/dL Creatinine 0.58 (0.52-1.04) mg/dL Est GFR (CKD-EPI)AfAm >90 (>60 ml/min/1.73 sqM) Est GFR (CKD-EPI)NonAf >90 (>60 ml/min/1.73 sqM) Glucose 137 H (74-99) mg/dL Calcium 8.8 (8.4-10.2) mg/dL Magnesium 1.6 (1.6-2.3) mg/dL Total Bilirubin 0.3 (0.2-1.3) mg/dL AST 29 (14-36) U/L ALT 38 H (4-34) U/L Alkaline Phosphatase 133 H (38-126) U/L Total Protein 5.9 L (6.3-8.2) g/dL Albumin 3.2 L (3.5-5.0) g/dL Disposition Clinical Impression: Anemia, Cellulitis Disposition: ADMITTED IP TO THIS [facility] Condition: Stable Is patient prescribed a controlled substance at d/c from ED?: No Referrals: Connor Carreon [Primary Care Provider] - 1-2 days Decision to Admit Reason: Admit from EC Decision Date: 05/06/20 Decision Time: 19:44
[2020-05-06] MEDS ORDERED: PANTOPRAZOLE 40 MG/10 ML VIAL IVP STA (19:16)
[2020-05-06] MEDS ORDERED: VANCOMYCIN IV PER PHARMACY 1 EACH MISC MISCELLANE PRN (19:41)
[2020-05-06] MEDS ORDERED: cefTRIAXone IN SWFI 1,000 MG/10 ML SYRINGE IVP STA (19:41)
[2020-05-06] MEDS ORDERED: NALOXONE 0.4 MG/ML 1 ML VIAL IV PRN (19:42)
[2020-05-06] MEDS ORDERED: VANCOMYCIN 1,250 MG in SODIUM CHLORIDE 0.9% 250 ML IVPB STA (19:48)
[2020-05-06] MEDS ORDERED: MORPHINE SULFATE 2 MG/ML SYRINGE IVP STA (22:56)
[2020-05-06] MEDS ORDERED: HYDROcodone/APAP 7.5-325MG 1 EACH TAB PO PRN (23:39)
[2020-05-07] MEDS: PANTOPRAZOLE 40 MG TABLET PO SCH ×3 (00:29→20:40)
[2020-05-07] MEDS: MONTELUKAST 10 MG TAB PO SCH ×3 (00:29→20:40)
[2020-05-07] MEDS: METOPROLOL TARTRATE 25 MG TAB PO SCH ×4 (00:29→20:40)
[2020-05-07] MEDS: ARIPiprazole 5 MG TAB PO SCH ×2 (00:29→20:40)
--- NOTE | 2020-05-07 00:49 | P.HPIM ---
History of Present Illness H&P Date: 05/06/20 Chief Complaint: abnormal blood count 69 year old female with Diastolic chf, copd, dm, recent GI bleeding patient comes in due to abnormal blood count that she was tested for today. she was notified that her blood count Hgb was 5.5 , so she came to the ED for evaluation . she denies any GI bleeding, abd pain , chest pain or trouble breathing. she reports decrease exercise tolerance which has been going on for a while. since her most recent DC about 10 days ago, she has been feeling extremely tired with easy fatigability , denies GI bleeding though. during her most recent admission, she was diagnosed with UTI, and GI bleeding EGD, showed oozing AVM s/p cauterization otherwise , she claims to be at baseline status of health , with no other complaints in the ED she refused to have guaic testing, or venous doppler US. I tried to explain to her and address any concerns she had, to no luck . she continues to refuse to get these tests done. in the ED she was started on antibiotics. and started blood transfusion . admittd for close monitor and GI eval Review of Systems Pertinent positives as noted in HPI. All other systems were reviewed and are negative Past Medical History Past Medical History: Asthma, Chest Pain / Angina, COPD, Diabetes Mellitus, Hyperlipidemia, Hypertension, Osteoarthritis (OA), Respiratory Disorder, Skin Disorder, Thyroid Disorder Additional Past Medical History / Comment(s): Obesity (BMI 35) COPD, asthma, diabetes , depression, 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 The patient is also a smoker. The patient has chronic back pain. History of Any Multi-Drug Resistant Organisms: None Reported Past Surgical History: Appendectomy, Section, Cholecystectomy, Orthopedic Surgery, Tubal Ligation Additional Past Surgical History / Comment(s): LASER SX JETHRO EYES FOR GLAUCOMA. RT KNEE ARTHROSCOPY. UNDERWENT PERCUTANEOUS NEPHROSTOLITHOTOMY Past Anesthesia/Blood Transfusion Reactions: No Reported Reaction Past Psychological History: Anxiety, Depression Smoking Status: Current every day smoker Past Alcohol Use History: None Reported Past Drug Use History: None Reported - Past Family History Mother Additional Family Medical History / Comment(s): emphysema, heart valve problems, in her slepp. Brother(s) Family Medical History: Cancer Additional Family Medical History / Comment(s): from oral cancer Father Brother(s) Family Medical History: Cancer Additional Family Medical History / Comment(s): heart disease Medications and Allergies Home Medications Medication Instructions Recorded Confirmed Type Zafirlukast [Accolate] 20 mg PO BID 02/06/14 05/06/20 History ARIPiprazole [Abilify] 5 mg PO HS 02/07/18 05/06/20 History metFORMIN HCL [Glucophage] 1,000 mg PO BID-W/MEALS 02/07/18 05/06/20 History Atorvastatin [Lipitor] 40 mg PO DAILY #30 tab 09/10/18 05/06/20 Rx Metoprolol Tartrate [Lopressor] 25 mg PO TID #90 tab 09/10/18 05/06/20 Rx Cholecalciferol [Vitamin D3 (25 1,000 unit PO DAILY 09/03/19 05/06/20 History Mcg = 1000 Iu)] Levothyroxine Sodium [Synthroid] 200 mcg PO DAILY 09/03/19 05/06/20 History Albuterol Sulfate [Ventolin HFA] 1 - 2 puff INHALATION RT-Q6H PRN 03/11/20 05/06/20 History Escitalopram [Lexapro] 20 mg PO DAILY 03/11/20 05/06/20 History Budesonide [Pulmicort] 1 mg INHALATION RT-BID ml 03/27/20 05/06/20 Rx Formoterol Fumarate [Perforomist] 20 mcg INHALATION RT-BID nebu 03/27/20 05/06/20 Rx HYDROcodone/APAP 7.5-325MG [[place] 1 tab PO Q6H PRN #12 tab 03/27/20 05/06/20 Rx 7.5-325] Ipratropium-Albuterol Nebulize 3 ml INHALATION RT-Q2H PRN ml 03/27/20 05/06/20 Rx [Duoneb 0.5 mg-3 mg/3 ml Soln] Pantoprazole Sodium [Protonix] 40 mg PO BID #60 tablet.dr 03/27/20 05/06/20 Rx Furosemide [Lasix] 40 mg PO DAILY 04/27/20 05/06/20 History Magnesium Oxide [Mag-Ox] 400 mg PO DAILY #30 tablet 04/27/20 05/06/20 Rx Allergies Allergy/AdvReac Type Severity Reaction Status Date / Time adhesive Allergy Rash/Hives Verified 05/06/20 17:42 ciprofloxacin [From Cipro] Allergy Rash/Hives Verified 05/06/20 17:42 ciprofloxacin HCl Allergy Rash/Hives Verified 05/06/20 17:42 [From Cipro] latex Allergy Rash/Hives Verified 05/06/20 17:42 nitrofurantoin Allergy Rash/Hives Verified 05/06/20 17:42 [From Macrobid] nitrofurantoin Allergy Rash/Hives Verified 05/06/20 17:42 macrocrystalline [From Macrobid] Penicillins Allergy Rash/Hives Verified 05/06/20 17:42 propoxyphene HCl Allergy Rash/Hives Verified 05/06/20 17:42 [From Darvon] propoxyphene napsylate Allergy Unknown Verified 05/06/20 17:42 [From Darvocet-N] Physical Exam Vitals: Vital Signs Temp Pulse Resp BP Pulse Ox 05/06/20 19:30 92 18 122/58 90 L 05/06/20 19:00 92 16 120/52 96 05/06/20 18:30 90 16 113/63 96 05/06/20 18:16 87 18 125/54 96 05/06/20 17:42 98.8 F 95 18 139/75 92 L Intake and Output 05/06/20 05/06/20 05/06/20 06:59 14:59 22:59 Other: Weight 78.471 kg Constitutional: No acute distress, conversant, pleasant Eyes: Anicteric sclerae, moist conjunctiva, Pupils equal round reactive to light ENMT: NC/AT Oropharynx clear, no erythema, or exudates Neck: Supple, FROM, no masses, or JVD No carotid bruits No thyromegaly Lungs: good air entry bilateral, with slightly prolonged expiratory phase, with end expiratory wheeze Clear to percussion Normal respiratory effort, no accessory muscle use Cardiovascular: Heart regular in rate and rhythm, No murmurs, gallops, or rubs left leg edema and swelling Abdominal: Soft Nontender, no guarding, rebound or rigidity Abdomen moving with respiration Normoactive bowel sounds No hepatomegaly, No splenomegaly No palpable mass No abdominal wall hernia noted Skin: Normal temperature, tone, texture, turgor No induration No subcutaneous nodules No rash, lesions No ulcers Extremities: swelling and tenderness of the left leg with erythema compared to the right leg, No digital cyanosis No clubbing Pedal pulses intact and symmetrical Radial pulses intact and symmetrical No calf tenderness Psychiatric: Alert and oriented to person, place and time Appropriate affect fair judgement Neuro Muscles Strength 4/5 in all 4 extremities Sensation to light touch grossly present throughout Cranial nerves II-XII grossly intact No focal sensory deficits Lymphatics: no palpable cervical or supraclavicular , or inguinal lymph nodes Results CBC & Chem 7: 05/06/20 18:12 05/06/20 18:12 Labs: Abnormal Lab Results - Last 24 Hours (Table) 05/06/20 05/06/20 05/06/20 Range/Units 18:12 18:12 18:12 WBC 19.4 H (3.8-10.6) k/uL RBC 2.71 L (3.80-5.40) m/uL Hgb 6.6 L* (11.4-16.0) gm/dL Hct 22.1 L (34.0-46.0) % MCH 24.3 L (25.0-35.0) pg MCHC 29.7 L (31.0-37.0) g/dL RDW 17.7 H (11.5-15.5) % Plt Count 511 H (150-450) k/uL Neutrophils # 15.9 H (1.3-7.7) k/uL Sodium 133 L (137-145) mmol/L Chloride 95 L (98-107) mmol/L BUN 31 H (7-17) mg/dL Glucose 137 H (74-99) mg/dL ALT 38 H (4-34) U/L Alkaline Phosphatase 133 H (38-126) U/L Total Protein 5.9 L (6.3-8.2) g/dL Albumin 3.2 L (3.5-5.0) g/dL Crossmatch See Detail Assessment and Plan Assessment: acute on chronic anemia, rule out GI bleeding GI consult clear liquid diet PPI monitor Hgb blood transfusion Cellulitis of the left leg, rule out DVT patient declined Venous doppler US, agreed to perform D-dimer vanco f/u culture chronic conditions COPD , compensated, resume inhlaers hypothyroid, on levothyroxine DM, hold Oral hypolycemia agents, insulin sliding efraín Preformed a thorough record review from recent hospitalization for acute GI bleeding and UTI. patient required 2 units of blood, and EGD showed AVM that required cauterization CODE STATUS:full code DVT prophylaxis: mechanical de to possible GI bleeding Discussed with: Patient, ER, RN Anticipated length of stay > than [address]: home A total of 75 minutes was spent on the care of this complex patient more than 50% of the time was spent in counseling and care coordination.
[2020-05-07] MEDS: MORPHINE SULFATE 2 MG/ML SYRINGE IVP PRN ×5 (03:00→20:38)
[2020-05-07] MEDS: IPRATROPIUM-ALBUTEROL 3 ML NEB INHALATION PRN ×3 (05:49→19:49)
[2020-05-07 06:40] LABS: Glucose,Whole Blood 185 mg/dL (75-99)
[2020-05-07] MEDS: INSULIN ASPART (NovoLOG) 100 UNIT/ML VIAL SQ SCH ×4 (07:03→20:39)
[2020-05-07] MEDS: LEVOTHYROXINE 100 MCG TAB PO SCH (07:03)
[2020-05-07] MEDS: FORMOTEROL FUMARATE 20 MCG/2 ML NEBU INHALATION SCH ×3 (08:21→19:50)
[2020-05-07] MEDS: BUDESONIDE 1 MG/2 ML NEBU INHALATION SCH ×3 (08:21→19:50)
[2020-05-07] MEDS: ATORVASTATIN 40 MG TAB PO SCH (08:51)
[2020-05-07] MEDS: VANCOMYCIN 1,250 MG in SODIUM CHLORIDE 0.9% 250 ML IVPB SCH ×2 (08:51→20:38)
[2020-05-07] MEDS: ESCITALOPRAM 20 MG TAB PO SCH (08:51)
[2020-05-07] MEDS: FUROSEMIDE 40 MG TAB PO SCH (08:52)
[2020-05-07 09:53] LABS: Anisocytosis Slight; HCT 23.6 % (34.0-46.0); HGB 7.1 gm/dL (11.4-16.0); Hypochromasia Marked; MCHC 30.1 g/dL (31.0-37.0); MCV 86.5 fL (80.0-100.0); Mean Platelet Volume 7.1; Platelet Count 439 k/uL (150-450); Poikilocytosis Slight; RBC 2.73 m/uL (3.80-5.40); RDW 17.8 % (11.5-15.5); WBC 15.3 k/uL (3.8-10.6)
[2020-05-07 10:11] LABS: African American GFR (CKD) >90 (>60 ml/min/1.73 sqM); Anion Gap 6 mmol/L; Blood Urea Nitrogen 25 mg/dL (7-17); Calcium 8.2 mg/dL (8.4-10.2); Carbon Dioxide 32 mmol/L (22-30); Chloride 95 mmol/L (98-107); Glucose 206 mg/dL (74-99); Non-African American GFR(CKD) >90 (>60 ml/min/1.73 sqM); Potassium 4.5 mmol/L (3.5-5.1); Sodium 133 mmol/L (137-145)
[2020-05-07 10:54] LABS: Reticulocyte % 3.4 % (0.5-2.0)
[2020-05-07] MEDS ORDERED: SODIUM FERRIC GLUCONAT-SUCROSE 125 MG in SODIUM CHLORIDE 0.9% 100 ML IVPB ONE (11:00)
--- NOTE | 2020-05-07 11:26 | CDI ---
Documentation Clarification Form Date: 05/07/2020 CDS: Ness Sun RN, CCDS Admit Date: 05/06/2020 Patient Name: Ban Estrada ATTENTION: The Clinical Documentation Specialists (CDI) and [facility] Coding Staff appreciate your assistance in clarifying documentation. Please respond to the clarification below the line at the bottom and electronically sign. The CDI & [facility] Coding staff will review the response and follow-up if needed. Please note: Queries are made part of the Legal Health Record. If you have any questions, please contact the author of this message via ITS. Dr. Adrienne Elliott, DO Cellulitis of the left leg is documented in the H&P. History/Risk Factors: 69-year-old female presents to the ED for low hemoglobin. Medical history DM, HTN and COPD Clinical Indicators: 05/06 VSS: 139/75 95 98.8 18 92% 2L nasal cannula 05/06 Labs: Wbc 19.4, Treatment: 05/06 Vancomycin Ivpb Q 12; Ceftriaxone Ivpb x1; Novolog AC/HS sliding scale Please document any body system complications or specific manifestations related to the diabetes: Left Leg Cellulitis Associated with Diabetes No association with Diabetes Other condition Unable to Determine (Last Revision: May 2017) Associated with Diabetes MTDD
[2020-05-07 11:55] LABS: Glucose,Whole Blood 204 mg/dL (75-99)
[2020-05-07] MEDS ORDERED: PEG 3350-NA SULF,BICARB,CL/KCL 4,000 ML BOTTLE PO ONE (14:52)
[2020-05-07 16:38] LABS: Glucose,Whole Blood 142 mg/dL (75-99)
[2020-05-07 17:07] LABS: Ferritin 32.7 ng/mL (10.0-291.0)
[2020-05-07 17:29] LABS: % Iron Saturation 4.14 (12.00-45.00); Iron 13 ug/dL (50-170); Total Iron Binding Capacity 314 ug/dL (228-460)
--- NOTE | 2020-05-07 19:49 | P.PN ---
Subjective Progress Note Date: 05/07/20 (delayed charting seen at 1015) Principal diagnosis: fatigue Patient is a 69-year-old female with diabetes mellitus on insulin requiring, history of recurrent lower extremity cellulitis, COPD, hypertension, and dyslipidemia who presented to the emergency department at the direction of her family physician as her hemoglobin was 5.5 and outpatient blood draw. Patient has had multiple admissions for GI bleeding her most recent discharge was approximately 10 days ago. During that hospital stay she underwent EGD with cauterization of oozing duodenal ulcer with AVM as well as gastritis with bleeding. MRI of the ER here she is on have a hemoglobin 6.6 and white blood cell count of 19.4. On exam she also had left lower extremity cellulitis. She started on vancomycin and one unit of packed red blood cells were ordered. She is admitted for further monitoring. Patient seen and examined at bedside. She denies any nausea or vomiting. She is feeling bloated and having some epigastric pain. She denies any dark tarry stools or blood in her stool. She has not been having any vomiting of blood. She states she is just been feeling very fatigued. She states she's been taking oral iron at home. She had declined a fecal occult blood. She states she has had multiple episodes of recurrent cellulitis that she has a cellulitis of her left lower extremity. She does not want to undergo venous Doppler at this point in time she feels this is secondary to cellulitis. General: non toxic, no distress, appears at stated age, obese Derm: Left lower extremity with some redness and warmth on the anterior calf warm, dry Head: atraumatic, normocephalic, symmetric Eyes: EOMI, no lid lag, anicteric sclera Mouth: no lip lesion, mucus membranes moist Cardiovascular: S1S2 reg, no murmur, positive posterior tibial pulse bilateral, Lungs: Decreased breath sounds bilateral, no rhonchi, no rales , no accessory muscle use Abdominal: soft, tender to palpation epigastric, no guarding, no appreciable organomegaly Ext: no gross muscle atrophy, no edema, no contractures Neuro: CN II-XI grossly intact, no focal neuro deficits Psych: Alert, oriented, appropriate affect Anemia -History of iron deficiency with ferritin of 14 and February. IV iron 1 -Check iron stores, total iron-binding capacity, and reticulocyte count -Recheck CBC at 8 PM -If continues to have anemia consider hematology consult Hx of AVM and gastritis -Secondary to a recent history of GI bleed consult GI, continue with IV PPI, nothing by mouth after midnight. Left lower extremity cellulitis -Patient does not feel she needs a lower extremity venous Doppler this point in time as her signs and symptoms are consistent with her prior cellulitis -Continue with vancomycin -Follow renal profile closely -IV fluids COPD without exacerbation -Continue home inhaler regiment Hypothyroidism -Levothyroxine Diabetes mellitus type 2 -Hold oral agents -Sliding scale insulin -Check hemoglobin A1c Morbid obesity with BMI 35.3 -Structured outpatient weight loss DVT prophylaxis: SCDs Discussed with: Patient, nursing Anticipated discharge: 2-[address]: Home A total of 35 minutes was spent on the care of this complex patient more than 50% of the time was spent in counseling and care coordination. Objective - Vital Signs Vital signs: Vital Signs Temp 98.3 F 05/07/20 16:00 Pulse 76 05/07/20 16:00 Resp 18 05/07/20 16:00 BP 126/67 05/07/20 16:00 Pulse Ox 93 L 05/07/20 16:00 Intake & Output 05/07/20 05/07/20 05/08/20 06:59 18:59 06:59 Intake Total 310 478 Output Total 3 Balance 310 475 Weight 80.6 kg Intake: Oral 478 Blood Product 310 Rc As-1 Unit 310 [id number] Output: Stool 3 Other: Voiding Method Diaper Diaper # Voids 1 1 - Labs CBC & Chem 7: 05/07/20 08:41 05/07/20 08:41 Labs: Abnormal Lab Results - Last 24 Hours (Table) 05/06/20 05/06/20 05/07/20 Range/Units 18:12 23:48 06:38 WBC (3.8-10.6) k/uL RBC (3.80-5.40) m/uL Hgb (11.4-16.0) gm/dL Hct (34.0-46.0) % MCHC (31.0-37.0) g/dL RDW (11.5-15.5) % Retic Count (0.5-2.0) % D-Dimer 1.35 H (<0.60) mg/L FEU Sodium (137-145) mmol/L Chloride (98-107) mmol/L Carbon Dioxide (22-30) mmol/L BUN (7-17) mg/dL Glucose (74-99) mg/dL POC Glucose (mg/dL) 185 H (75-99) mg/dL Calcium (8.4-10.2) mg/dL Iron (50-170) ug/dL % Saturation (12.00-45.00) Crossmatch See Detail 05/07/20 05/07/20 05/07/20 Range/Units 08:41 08:41 08:41 WBC 15.3 H (3.8-10.6) k/uL RBC 2.73 L (3.80-5.40) m/uL Hgb 7.1 L (11.4-16.0) gm/dL Hct 23.6 L (34.0-46.0) % MCHC 30.1 L (31.0-37.0) g/dL RDW 17.8 H (11.5-15.5) % Retic Count 3.4 H (0.5-2.0) % D-Dimer (<0.60) mg/L FEU Sodium 133 L (137-145) mmol/L Chloride 95 L (98-107) mmol/L Carbon Dioxide 32 H (22-30) mmol/L BUN 25 H (7-17) mg/dL Glucose 206 H (74-99) mg/dL POC Glucose (mg/dL) (75-99) mg/dL Calcium 8.2 L (8.4-10.2) mg/dL Iron 13 L (50-170) ug/dL % Saturation 4.14 L (12.00-45.00) Crossmatch 05/07/20 05/07/20 Range/Units 11:53 16:37 WBC (3.8-10.6) k/uL RBC (3.80-5.40) m/uL Hgb (11.4-16.0) gm/dL Hct (34.0-46.0) % MCHC (31.0-37.0) g/dL RDW (11.5-15.5) % Retic Count (0.5-2.0) % D-Dimer (<0.60) mg/L FEU Sodium (137-145) mmol/L Chloride (98-107) mmol/L Carbon Dioxide (22-30) mmol/L BUN (7-17) mg/dL Glucose (74-99) mg/dL POC Glucose (mg/dL) 204 H 142 H (75-99) mg/dL Calcium (8.4-10.2) mg/dL Iron (50-170) ug/dL % Saturation (12.00-45.00) Crossmatch
[2020-05-07 20:15] LABS: Glucose,Whole Blood 203 mg/dL (75-99)
--- NOTE | 2020-05-07 20:48 | CONS ---
CONSULTATION DATE OF DICTATION: 05/07/2020 REASON FOR CONSULTATION: Severe anemia. HISTORY OF PRESENT ILLNESS: The patient is a 69-year-old pleasant white female with history of recurrent GI bleed who was recently admitted to the hospital 10 days ago for shortness of breath. While in the hospital she developed acute GI bleed. She underwent an upper endoscopy that showed a bleeding arteriovenous malformation in the second part of the duodenum that was cauterized. She had an upper endoscopy prior to that about 10 days earlier and was noted to have duodenal ulcers. She presented to the hospital because of severe anemia with a hemoglobin of 5.5 g/dL requiring 2 units of blood transfusion. She reports no rectal bleeding or melena. She complains of extreme fatigue, weakness and tiredness and some shortness of breath. PAST MEDICAL HISTORY: Her past medical history is significant for COPD, diabetes mellitus, hypertension, hyperlipidemia, hypothyroidism, asthma, obesity. PAST SURGICAL HISTORY: Recent EGD 10 days ago, bilateral eye surgery for glaucoma, right knee arthroscopy, C- section, appendectomy, cholecystectomy and tubal ligation. SOCIAL HISTORY: Chronic smoker. No alcohol use. FAMILY HISTORY: Mother had COPD and a brother had oral cancer. Father with heart disease. MEDICATIONS: Medications at home include Accolate, Abilify, Glucophage, Lipitor, Lopressor, vitamin D3, Synthroid, Ventolin, Lexapro, Pulmicort, [place], DuoNeb, Protonix, Lasix and magnesium oxide. ALLERGIES: CIPRO, MACROBID, NITROFURANTOIN, DARVOCET, PENICILLIN. REVIEW OF SYSTEMS: CARDIOPULMONARY: No chest pain. She did have some shortness of breath. GENITOURINARY: No dysuria or hematuria. MUSCULOSKELETAL: Unremarkable other than chronic back pain. NEUROLOGY: Unremarkable. PSYCHIATRIC: Unremarkable. ENT/VISION: Unremarkable. CONSTITUTIONAL: No weight loss. No fever, chills, night sweats. HEMATOLOGY: Severe anemia. ONCOLOGY: Unremarkable. ENDOCRINE: History of diabetes mellitus. PHYSICAL EXAMINATION: She appears comfortable. No apparent distress. Vital signs are stable. Blood pressure is 122/58, pulse rate 92, temperature 98. HEENT examination unremarkable. Conjunctivae pink. Sclerae anicteric. Oral cavity no lesions. NECK: No JVD or lymph node enlargement. CHEST: Clear to auscultation. HEART: Regular rate and rhythm. ABDOMEN: Soft. Bowel sounds are positive. No organomegaly. EXTREMITIES: No pedal edema. NEUROLOGIC: Alert and oriented x3. No focal deficits. LABS: Labs done at the time of admission to the hospital showed WBC 19.4, hemoglobin 6.6, platelets 511. Today hemoglobin is 7.1. She received one unit of PRBC transfusion. MCV is 81, platelets 511. Serum iron 813, TIBC 314, iron saturation 4.12 and ferritin is 32. IMPRESSION: 1. 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 Clinically no evidence of active bleeding during this hospitalization. The patient had severe anemia about 2 weeks ago during her last hospitalization with acute GI bleed and underwent an upper endoscopy and was noted to have small duodenal ulcers and angioectasia in the second part of the duodenum that was cauterized. She never had a colonoscopy in the past. Status post one unit of blood transfusion and her hemoglobin is 7.1 g/dL. 2. History of diabetes mellitus. 3. History of congestive heart failure. 4. Chronic obstructive pulmonary disease. 5. Hypothyroidism. RECOMMENDATIONS: 1. Agree with PRBC transfusion. 2. Continue Protonix 40 mg daily. 3. Clear liquid diet. 4. Will proceed with EGD and colonoscopy tomorrow. Discussed with the patient risks, benefits and complications of the procedure. If the tests are negative, will also consider a small bowel capsule endoscopy during this hospitalization to evaluate iron deficiency anemia. The plan was discussed with the patient. She is agreeable to it. Thank you for this consultation. JENIFERL / JEREMY: [id number] /
[2020-05-07 20:55] LABS: Anisocytosis Slight; HCT 23.4 % (34.0-46.0); Hypochromasia Marked; MCH 25.7 pg (25.0-35.0); MCHC 29.6 g/dL (31.0-37.0); Platelet Count 432 k/uL (150-450); Poikilocytosis Slight; RBC 2.69 m/uL (3.80-5.40); RDW 17.6 % (11.5-15.5); WBC 16.1 k/uL (3.8-10.6)
[2020-05-07 21:13] LABS: HGB 6.9 gm/dL (11.4-16.0)
[2020-05-08] MEDS: MORPHINE SULFATE 2 MG/ML SYRINGE IVP PRN ×5 (01:48→21:57)
[2020-05-08] MEDS: IPRATROPIUM-ALBUTEROL 3 ML NEB INHALATION PRN ×4 (03:36→19:19)
[2020-05-08] MEDS ORDERED: MAGNESIUM CITRATE 296 ML BOTTLE PO ONE (05:00)
[2020-05-08] MEDS: LEVOTHYROXINE 100 MCG TAB PO SCH (06:22)
[2020-05-08 06:34] LABS: Glucose,Whole Blood 158 mg/dL (75-99)
[2020-05-08] MEDS: BUDESONIDE 1 MG/2 ML NEBU INHALATION SCH ×2 (07:26→19:19)
[2020-05-08] MEDS: FORMOTEROL FUMARATE 20 MCG/2 ML NEBU INHALATION SCH ×2 (07:26→19:20)
[2020-05-08] MEDS: INSULIN ASPART (NovoLOG) 100 UNIT/ML VIAL SQ SCH ×4 (08:08→20:48)
[2020-05-08 08:23] LABS: Anisocytosis Slight; HCT 26.1 % (34.0-46.0); HGB 7.9 gm/dL (11.4-16.0); Hypochromasia Marked; MCH 25.9 pg (25.0-35.0); MCHC 30.4 g/dL (31.0-37.0); MCV 85.4 fL (80.0-100.0); Platelet Count 406 k/uL (150-450); Poikilocytosis Moderate; RBC 3.05 m/uL (3.80-5.40); RDW 17.2 % (11.5-15.5); WBC 14.8 k/uL (3.8-10.6)
[2020-05-08] MEDS: VANCOMYCIN 1,250 MG in SODIUM CHLORIDE 0.9% 250 ML IVPB SCH ×2 (08:26→20:46)
[2020-05-08 08:27] LABS: INR 1.1 (<1.2); Prothrombin Time 10.9 sec (9.0-12.0)
[2020-05-08 08:31] LABS: African American GFR (CKD) >90 (>60 ml/min/1.73 sqM); Anion Gap 4 mmol/L; Blood Urea Nitrogen 16 mg/dL (7-17); Calcium 8.1 mg/dL (8.4-10.2); Carbon Dioxide 31 mmol/L (22-30); Chloride 98 mmol/L (98-107); Glucose 138 mg/dL (74-99); Magnesium 1.6 mg/dL (1.6-2.3); Non-African American GFR(CKD) >90 (>60 ml/min/1.73 sqM); Potassium 3.7 mmol/L (3.5-5.1); Sodium 133 mmol/L (137-145)
[2020-05-08] MEDS ORDERED: IV FLUID CONTINUATION 1,000 ML IV ONE (09:01)
[2020-05-08] MEDS ORDERED: LIDOCAINE 1% INJ 10MG/ML (20 ML MDV) ONE (09:02)
[2020-05-08] MEDS ORDERED: PROPOFOL 10 MG/ML 20 ML VIAL IV ONE (09:02)
--- NOTE | 2020-05-08 09:47 | P.PCN ---
Date of Procedure: 05/08/20 Procedure(s) Performed: Brief history: Patient is a pleasant 69-year-old white female admitted hospital with persistent/recurrent anemia with a hemoglobin of 6.8 requiring 2 units of the transition. She had a similar episode 2 weeks ago at which time she was hospitalized and underwent an upper endoscopy 2 weeks apart. The first upper endoscopy done in March of this year showed duodenal ulcers. He can undergo upper endoscopy done 15 days later showed healed duodenal ulcer but an actively bleeding angiodysplasia in the second part of the duodenum that was cauterized. Now she presents to the hospital with a hemoglobin of 6.8 times per deciliter but no active bleeding. She is hence scheduled for an upper endoscopy as well as colonoscopy as a part of evaluation of anemia and occult GI blood loss Procedure performed: Esophagogastroduodenoscopy with cautery using a gold probe. Colonoscopy with cautery and Endo Clip placement Preoperative diagnosis: Anesthesia: MAC Procedure: After informed consent was obtained from the patient was brought into the endoscopy unit and IV sedation was administered by anesthesia under continuous monitoring. Initially upper endoscopy was done. The Olympus GF 160 video endoscope was inserted inserted into the mouth and esophagus intubated without any difficulty and was gradually advanced into the stomach and duodenum and carefully examined. The bulb and second part of the duodenum had 3 nonbleeding angiectasia that they cauterized using a gold probe. The scope was then withdrawn into the stomach adequately insufflated with air and upon careful examination the antrum and body, cardia and fundus appeared normal. There was a small erosion noted in the antrum which was also cauterized using a gold probe. The scope was then withdrawn into the esophagus. The GE junction was located at 40 cm to the incisors. It appeared regular with no erythema erosions or ulcerations. Rest of the esophagus appeared normal. Patient tolerated the procedure well. At this time the patient continued to remain sedation. Initial digital rectal examination was normal. Olympus CF 160 video colonoscope was then inserted into the rectum and gradually advanced to the cecum without any difficulty. Careful examination was performed as the scope was gradually being withdrawn. The prep was fair. In the base of the cecum there were 4 nonbleeding venous malformation follow with the cauterized using a gold probe. One the larger one measuring 1 to the incisors and active bleeding and hence an Endo Clip has to be placed to achieve hemostasis. The rest of the cecum, ascending colon, transverse colon, descending colon, sigmoid colon and rectum appeared normal. Scattered sigmoidal diverticulosis seen. Retroflexion was performed in the rectum and no lesions were noted. Patient tolerated the procedure well. Impression: 1. Upper endoscopy revealed nonbleeding angiectasia in the second part of the duodenum status post cautery as described above 2. Colonoscopy revealed 4 nonbleeding angiodysplasia in the base of the cecum is post artery tolerated by Endo Clip placement with good hemostasis Recommendations: Findings of this examination were discussed with the patient as well as her fa,yifan. Diet will be advanced as tolerated. Monitor CBC on a daily basis.
[2020-05-08 12:11] LABS: Glucose,Whole Blood 146 mg/dL (75-99)
[2020-05-08] MEDS: ATORVASTATIN 40 MG TAB PO SCH (12:57)
[2020-05-08] MEDS: ESCITALOPRAM 20 MG TAB PO SCH (12:57)
[2020-05-08] MEDS: PANTOPRAZOLE 40 MG TABLET PO SCH ×2 (12:57→20:45)
[2020-05-08] MEDS: MONTELUKAST 10 MG TAB PO SCH ×2 (12:57→20:45)
[2020-05-08] MEDS: FUROSEMIDE 40 MG TAB PO SCH (12:57)
[2020-05-08] MEDS: METOPROLOL TARTRATE 25 MG TAB PO SCH ×3 (12:57→21:57)
--- NOTE | 2020-05-08 14:26 | P.PN ---
Subjective Progress Note Date: 05/08/20 (delayed charting seen at 0915) Principal diagnosis: fatigue Patient is a 69-year-old female with diabetes mellitus on insulin requiring, history of recurrent lower extremity cellulitis, COPD, hypertension, and dyslipidemia who presented to the emergency department at the direction of her family physician as her hemoglobin was 5.5 and outpatient blood draw. Patient has had multiple admissions for GI bleeding her most recent discharge was approximately 10 days ago. During that hospital stay she underwent EGD with cauterization of oozing duodenal ulcer with AVM as well as gastritis with bleeding. MRI of the ER here she is on have a hemoglobin 6.6 and white blood cell count of 19.4. On exam she also had left lower extremity cellulitis. She started on vancomycin and one unit of packed red blood cells were ordered. She was admitted for further monitoring. She was given a dose of iron due to low ferrtin. Her Hemoglobin again down trended and she was ordered an additional unit of pRBC. On the morning of 05/08 she underwent an upper and lower endoscopy. Upper endoscopy demonstrated nonbleeding telangiectasias in the second part the duodenum which underwent cautery. Colonoscopy revealed for nonbleeding angiodysplasias at the base of the cecum which were cauterized using the cold probe the larger one had active bleeding and an Endo Clip was placed. Patient seen and examined at bedside. She is not feeling well and is Bloated and distended due to the air from a colonoscopy. Denies any chest pain or shortness of breath. Has never seen hematology for iron infusions in the past. States her sister needs recurrent iron infusions and transfusion since having a heart attack but is unclear why. General: non toxic, no distress, appears at stated age, obese Derm: Left lower extremity with some redness and warmth on the anterior calf warm, dry Head: atraumatic, normocephalic, symmetric Eyes: EOMI, no lid lag, anicteric sclera Mouth: no lip lesion, mucus membranes moist Cardiovascular: S1S2 reg, no murmur, positive posterior tibial pulse bilateral, Lungs: Decreased breath sounds bilateral, no rhonchi, no rales , no accessory muscle use Abdominal: soft, tender to palpation epigastric, no guarding, no appreciable organomegaly Ext: no gross muscle atrophy, no edema, no contractures Neuro: CN II-XI grossly intact, no focal neuro deficits Psych: Alert, oriented, appropriate affect 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 IV iron was administered 1 on 05/07 -Status post 2 units of packed red blood cells -CBC in a.m. -Hematology/oncology outpatient evaluation for continued IV iron supplementation Gastritis -PPI Left lower extremity cellulitis -Patient does not feel she needs a lower extremity venous Doppler this point in time as her signs and symptoms are consistent with her prior cellulitis -Continue with vancomycin -Follow renal profile closely -IV fluids COPD without exacerbation -Continue home inhaler regiment Hypothyroidism -Levothyroxine Diabetes mellitus type 2 -Hold oral agents -Sliding scale - A1c 5.9 Morbid obesity with BMI 35.3 -Structured outpatient weight loss DVT prophylaxis: SCDs Discussed with: Patient, nursing Anticipated discharge: in 1-[address]: Home A total of 35 minutes was spent on the care of this complex patient more than 50% of the time was spent in counseling and care coordination. Objective - Vital Signs Vital signs: Vital Signs Temp 98.1 F 05/08/20 08:00 Pulse 82 05/08/20 08:00 Resp 18 05/08/20 08:00 BP 130/62 05/08/20 08:00 Pulse Ox 95 05/08/20 08:00 Intake & Output 05/07/20 05/08/20 05/08/20 18:59 06:59 18:59 Intake Total 478 310 220 Output Total 3 1 Balance 475 310 219 Intake: IV 100 Oral 478 120 Blood Product 310 Rc As-1 Unit 310 [id number] Output: Stool 3 1 Other: Voiding Method Diaper Diaper Diaper # Voids 1 1 # Bowel Movements 4 0 - Labs CBC & Chem 7: 05/08/20 07:12 05/08/20 07:12 Labs: Abnormal Lab Results - Last 24 Hours (Table) 05/06/20 05/07/20 05/07/20 Range/Units 18:12 08:41 16:37 WBC (3.8-10.6) k/uL RBC (3.80-5.40) m/uL Hgb (11.4-16.0) gm/dL Hct (34.0-46.0) % MCHC (31.0-37.0) g/dL RDW (11.5-15.5) % Sodium (137-145) mmol/L Carbon Dioxide (22-30) mmol/L Glucose (74-99) mg/dL POC Glucose (mg/dL) 142 H (75-99) mg/dL Calcium (8.4-10.2) mg/dL Iron 13 L (50-170) ug/dL % Saturation 4.14 L (12.00-45.00) Crossmatch See Detail 05/07/20 05/07/20 05/08/20 Range/Units 20:06 20:13 06:33 WBC 16.1 H (3.8-10.6) k/uL RBC 2.69 L (3.80-5.40) m/uL Hgb 6.9 L* (11.4-16.0) gm/dL Hct 23.4 L (34.0-46.0) % MCHC 29.6 L (31.0-37.0) g/dL RDW 17.6 H (11.5-15.5) % Sodium (137-145) mmol/L Carbon Dioxide (22-30) mmol/L Glucose (74-99) mg/dL POC Glucose (mg/dL) 203 H 158 H (75-99) mg/dL Calcium (8.4-10.2) mg/dL Iron (50-170) ug/dL % Saturation (12.00-45.00) Crossmatch 05/08/20 05/08/20 05/08/20 Range/Units 07:12 07:12 11:49 WBC 14.8 H (3.8-10.6) k/uL RBC 3.05 L (3.80-5.40) m/uL Hgb 7.9 L (11.4-16.0) gm/dL Hct 26.1 L (34.0-46.0) % MCHC 30.4 L (31.0-37.0) g/dL RDW 17.2 H (11.5-15.5) % Sodium 133 L (137-145) mmol/L Carbon Dioxide 31 H (22-30) mmol/L Glucose 138 H (74-99) mg/dL POC Glucose (mg/dL) 146 H (75-99) mg/dL Calcium 8.1 L (8.4-10.2) mg/dL Iron (50-170) ug/dL % Saturation (12.00-45.00) Crossmatch Microbiology - Last 24 Hours (Table) 05/06/20 20:45 Blood Culture - Preliminary Blood No Growth after 24 hours
[2020-05-08 17:13] LABS: Glucose,Whole Blood 195 mg/dL (75-99)
[2020-05-08] MEDS ORDERED: VANCOMYCIN TROUGH DUE 1 EACH MISC MISCELLANE ONE (19:00)
[2020-05-08 20:39] LABS: Glucose,Whole Blood 199 mg/dL (75-99)
[2020-05-08] MEDS: ARIPiprazole 5 MG TAB PO SCH (20:45)
[2020-05-09 06:12] LABS: Glucose,Whole Blood 145 mg/dL (75-99)
[2020-05-09] MEDS: LEVOTHYROXINE 100 MCG TAB PO SCH (06:14)
[2020-05-09] MEDS: INSULIN ASPART (NovoLOG) 100 UNIT/ML VIAL SQ SCH ×2 (06:16→12:36)
[2020-05-09 07:43] LABS: Anisocytosis Slight; HCT 25.6 % (34.0-46.0); HGB 7.7 gm/dL (11.4-16.0); Hypochromasia Marked; MCH 25.8 pg (25.0-35.0); MCHC 29.9 g/dL (31.0-37.0); MCV 86.2 fL (80.0-100.0); Mean Platelet Volume 7.4; Platelet Count 366 k/uL (150-450); Poikilocytosis Slight; RBC 2.98 m/uL (3.80-5.40); RDW 17.4 % (11.5-15.5); WBC 11.8 k/uL (3.8-10.6)
[2020-05-09 07:55] LABS: African American GFR (CKD) >90 (>60 ml/min/1.73 sqM); Anion Gap 6 mmol/L; Blood Urea Nitrogen 13 mg/dL (7-17); Calcium 8.1 mg/dL (8.4-10.2); Carbon Dioxide 29 mmol/L (22-30); Chloride 97 mmol/L (98-107); Glucose 122 mg/dL (74-99); Non-African American GFR(CKD) >90 (>60 ml/min/1.73 sqM); Potassium 3.8 mmol/L (3.5-5.1); Sodium 132 mmol/L (137-145)
[2020-05-09] MEDS: BUDESONIDE 1 MG/2 ML NEBU INHALATION SCH (08:13)
[2020-05-09] MEDS: IPRATROPIUM-ALBUTEROL 3 ML NEB INHALATION PRN ×2 (08:13→11:50)
[2020-05-09] MEDS: FORMOTEROL FUMARATE 20 MCG/2 ML NEBU INHALATION SCH (08:13)
[2020-05-09 08:57] VITALS: BP 150/67; RESP 18; TEMP 98.2
[2020-05-09] MEDS ORDERED: SODIUM FERRIC GLUCONAT-SUCROSE 125 MG in SODIUM CHLORIDE 0.9% 100 ML IVPB ONE (09:04)
[2020-05-09] MEDS: METOPROLOL TARTRATE 25 MG TAB PO SCH (10:16)
[2020-05-09] MEDS: VANCOMYCIN 1,250 MG in SODIUM CHLORIDE 0.9% 250 ML IVPB SCH (10:16)
[2020-05-09] MEDS: ESCITALOPRAM 20 MG TAB PO SCH (10:16)
[2020-05-09] MEDS: MONTELUKAST 10 MG TAB PO SCH (10:16)
[2020-05-09] MEDS: ATORVASTATIN 40 MG TAB PO SCH (10:16)
[2020-05-09] MEDS: PANTOPRAZOLE 40 MG TABLET PO SCH (10:17)
[2020-05-09] MEDS: FUROSEMIDE 40 MG TAB PO SCH (10:17)
[2020-05-09 11:57] VITALS: PULSE 80
[2020-05-09 12:07] LABS: Glucose,Whole Blood 178 mg/dL (75-99)
--- NOTE | 2020-05-09 12:13 | PN ---
PROGRESS NOTE DATE OF SERVICE: 05/09/2020 Patient is a 69-year-old pleasant white female admitted to the hospital with recurrent severe anemia. She was noted to have a hemoglobin of 6.6 requiring total of 2 units of PRBC transfusion. Last hemoglobin today 7.7 g/dL. She underwent an EGD colonoscopy yesterday. Upper endoscopy revealed 3 nonbleeding arteriovenous angioectasia in the duodenum that was cauterized and on colonoscopy she was noted to have multiple angiodysplasia in the base of the cecum that were also cauterized. She had some abdominal discomfort following the procedure, but she is feeling much better this morning. Had 1 brown bowel movement this morning. No abdominal pain. No nausea, vomiting. PHYSICAL EXAMINATION: Blood pressure is 133/89, pulse rate 76, temperature 98.9. HEENT examination unremarkable. Conjunctivae pink. Sclerae anicteric. Oral cavity no lesions. No JVD or lymph node enlargement. CHEST: Clear to auscultation. HEART: Regular rate and rhythm. ABDOMEN: Obese. Bowel sounds are positive. No organomegaly. EXTREMITIES: No pedal edema. SKIN no rashes. NEURO: She is alert and oriented x3. No focal deficits. LABS: From today WBC 11.8, hemoglobin 7.7, platelets 366. BUN and creatinine are within normal limits. IMPRESSION: 1. Severe symptomatic anemia with a hemoglobin of 6.7 requiring 2 units of blood transfusion. Today hemoglobin 7.7 status post EGD and colonoscopy yesterday that showed scattered duodenal angioectasia and multiple AVMs in the base of the cecum, nonbleeding, all of which were cauterized. The patient doing well. No further bleeding. Hemoglobin stable. 2. History of hypertension. 3. History of hypothyroidism. RECOMMENDATIONS: 1. Iron supplements. 2. Monitor CBC daily. 3. She can be discharged home today with outpatient followup in 1 month. Thank you for this consultation. MMODL / IJN: [id number] /
--- NOTE | 2020-05-09 17:45 | P.DS ---
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 Patient has had multiple admissions for GI bleeding her most recent discharge was approximately 10 days ago. During that hospital stay she underwent EGD with cauterization of oozing duodenal ulcer with AVM as well as gastritis with bleeding. Laboratory analysis in the ER here she was found to have a hemoglobin of 6.6 and white blood cell count of 19.4. On exam she also had left lower extremity cellulitis. She was started on vancomycin and one unit of packed red blood cells were ordered. She was admitted for further monitoring. She was given a dose of IV iron due to low ferrtin. Her Hemoglobin again down trended and she was ordered an additional unit of pRBC. On the morning of 05/08 she underwent an upper and lower endoscopy. Upper endoscopy demonstrated nonbleeding telangiectasias in the second part the duodenum which underwent cautery. Colonoscopy revealed for nonbleeding angiodysplasias at the base of the cecum which were cauterized using the Gold probe the larger one had active bleeding and an Endo Clip was placed. She was started on a diet and tolerated this well. She was given 1 additional dose on IV iron. Her cellulitis was greatly improved and her WBC count improved. She was determined stable for discharge home. She will follow with Dr. Kessler in 2 weeks. She will follow-up with Dr. Carreon in 1 week. Repeat CBC in 1 week. She will establish with Dr. Martell's office as she has been taking oral iron therapy and still has not had significant improvement in her ferritin. She will see them in 4 week and understands the importance of follow-up. Patient seen and examined at bedside. Feeling well, wants to go home. No nausea, abdominal pain is better, no chest pain, no shortness of breath. Vital signs reviewed and stable. General: non tosic, no distress, appears at stated age Derm: warm, dry Head: atraumatic, normocephalic, symmetric Eyes: EOMI, no lid lag, anicteric sclera Mouth: no lip lesion, mucus membranes moist Cardiovascular: S1S2 reg, no murmur, positive posterior tibial pulse bilateral, Lungs: CTA bilateral, no rhonchi, no rales , no accessory muscle use Abdominal: soft, nontender to palpation, no guarding, no appreciable organomegaly Ext: no gross muscle atrophy, no edema, no contractures Neuro: CN II-XI grossly intact, no focal neuro deficits Psych: Alert, oriented, appropriate affect A total of 35 minutes of time were spent preparing this complex discharge summary . Patient Condition at Discharge: Stable Plan - Discharge Summary Discharge Rx Participant: No New Discharge Prescriptions: New Sulfamethox-Tmp 800-160Mg [Bactrim DS 800-160 mg] 1 tab PO Q12HR #8 tab Continue Zafirlukast [Accolate] 20 mg PO BID metFORMIN HCL [Glucophage] 1,000 mg PO BID-W/MEALS ARIPiprazole [Abilify] 5 mg PO HS Atorvastatin [Lipitor] 40 mg PO DAILY #30 tab Metoprolol Tartrate [Lopressor] 25 mg PO TID #90 tab Cholecalciferol [Vitamin D3 (25 Mcg = 1000 Iu)] 1,000 unit PO DAILY Levothyroxine Sodium [Synthroid] 200 mcg PO DAILY Albuterol Sulfate [Ventolin HFA] 1 - 2 puff INHALATION RT-Q6H PRN PRN Reason: Shortness Of Breath Escitalopram [Lexapro] 20 mg PO DAILY Ipratropium-Albuterol Nebulize [Duoneb 0.5 mg-3 mg/3 ml Soln] 3 ml INHALATION RT-Q2H PRN ml PRN Reason: Shortness Of Breath Or Wheezing Formoterol Fumarate [Perforomist] 20 mcg INHALATION RT-BID nebu Pantoprazole Sodium [Protonix] 40 mg PO BID #60 tablet. Budesonide [Pulmicort] 1 mg INHALATION RT-BID ml HYDROcodone/APAP 7.5-325MG [Marathon 7.5-325] 1 tab PO Q6H PRN #12 tab PRN Reason: Pain Furosemide [Lasix] 40 mg PO DAILY Magnesium Oxide [Mag-Ox] 400 mg PO DAILY #30 tablet Discharge Medication List Zafirlukast [Accolate] 20 mg PO BID 02/06/14 [History] ARIPiprazole [Abilify] 5 mg PO HS 02/07/18 [History] metFORMIN HCL [Glucophage] 1,000 mg PO BID-W/MEALS 02/07/18 [History] Atorvastatin [Lipitor] 40 mg PO DAILY #30 tab 09/10/18 [Rx] Metoprolol Tartrate [Lopressor] 25 mg PO TID #90 tab 09/10/18 [Rx] Cholecalciferol [Vitamin D3 (25 Mcg = 1000 Iu)] 1,000 unit PO DAILY 09/03/19 [History] Levothyroxine Sodium [Synthroid] 200 mcg PO DAILY 09/03/19 [History] Albuterol Sulfate [Ventolin HFA] 1 - 2 puff INHALATION RT-Q6H PRN 03/11/20 [History] Escitalopram [Lexapro] 20 mg PO DAILY 03/11/20 [History] Budesonide [Pulmicort] 1 mg INHALATION RT-BID ml 03/27/20 [Rx] Formoterol Fumarate [Perforomist] 20 mcg INHALATION RT-BID nebu 03/27/20 [Rx] HYDROcodone/APAP 7.5-325MG [Marathon 7.5-325] 1 tab PO Q6H PRN #12 tab 03/27/20 [Rx] Ipratropium-Albuterol Nebulize [Duoneb 0.5 mg-3 mg/3 ml Soln] 3 ml INHALATION RT-Q2H PRN ml 03/27/20 [Rx] Pantoprazole Sodium [Protonix] 40 mg PO BID #60 tablet. 03/27/20 [Rx] Furosemide [Lasix] 40 mg PO DAILY 04/27/20 [History] Magnesium Oxide [Mag-Ox] 400 mg PO DAILY #30 tablet 04/27/20 [Rx] Sulfamethox-Tmp 800-160Mg [Bactrim DS 800-160 mg] 1 tab PO Q12HR #8 tab 05/09/20 [Rx] Follow up Appointment(s)/Referral(s): [facility], [NON-STAFF] - (Home care should call, if they do not call by the end of tomorrow, give them a call at the number listed above.) Tg Hernandez, MALACHI [Nurse Practitioner] - 4 Weeks (4-6 weeks for recheck of iron levels, if low will likely need repeat IV Iron. Please call office for appointment.) Gabriella Kessler MD [STAFF PHYSICIAN] - 2 Weeks (Please call to make a follow-up appointment.) Connor Carreon [Primary Care Provider] - 1-2 days (Please call to make a follow-up appointment. ) Ambulatory/Diagnostic Orders: Complete Blood Count w/diff [LAB.AMB] Time Frame: 1 Week, Location: None Selected Patient Instructions/Handouts: Cellulitis (DC), Iron Deficiency Anemia (DC) Activity/Diet/Wound Care/Special Instructions: Activity: as tolerated Diet: low residual, carb consistent Special Instructions: CBC in 1 week with result to Dr. Carreon Discharge Disposition: HOME SELF-CARE
== END 2020-05-09 14:16 | disposition home health service (06) | DRG 378 ==
LOC: EC 17:41 → 4SSUR 19:42 → 3SCARD 20:32
PROVIDERS: ADMIT Internal Medicine; ATTEND Internal Medicine
PROC: 30233N1 Transfusion of Nonautologous Red Blood Cells into Peripheral Vein, Percutaneous Approach (ICD-10-PCS; 2020-05-06)
PROC: 0W3P8ZZ Control Bleeding in Gastrointestinal Tract, Via Natural or Artificial Opening Endoscopic (ICD-10-PCS; principal; 2020-05-08 07:55)
PROC: 0D598ZZ Destruction of Duodenum, Via Natural or Artificial Opening Endoscopic (ICD-10-PCS; principal; 2020-05-08 07:55)
PROC: 0D5H8ZZ Destruction of Cecum, Via Natural or Artificial Opening Endoscopic (ICD-10-PCS; principal; 2020-05-08 07:55)
PROC: 0D578ZZ Destruction of Stomach, Pylorus, Via Natural or Artificial Opening Endoscopic (ICD-10-PCS; principal; 2020-05-08 07:55)
DX: K55.21 Angiodysplasia of colon with hemorrhage (principal); I50.32 Chronic diastolic (congestive) heart failure; L03.116 Cellulitis of left lower limb; D62 Acute posthemorrhagic anemia; I11.0 Hypertensive heart disease with heart failure; E11.628 Type 2 diabetes mellitus with other skin complications; E03.9 Hypothyroidism, unspecified; E11.39 Type 2 diabetes mellitus with other diabetic ophthalmic complication; J44.9 Chronic obstructive pulmonary disease, unspecified; E66.01 Morbid (severe) obesity due to excess calories; K31.819 Angiodysplasia of stomach and duodenum without bleeding; K57.30 Diverticulosis of large intestine without perforation or abscess without bleeding; K29.70 Gastritis, unspecified, without bleeding; H40.9 Unspecified glaucoma; H42 Glaucoma in diseases classified elsewhere; E78.5 Hyperlipidemia, unspecified; F32.9 Major depressive disorder, single episode, unspecified; F41.9 Anxiety disorder, unspecified; G89.29 Other chronic pain; M51.36 Other intervertebral disc degeneration, lumbar region; I83.90 Asymptomatic varicose veins of unspecified lower extremity; Z68.35 Body mass index [BMI] 35.0-35.9, adult; M19.90 Unspecified osteoarthritis, unspecified site; F17.200 Nicotine dependence, unspecified, uncomplicated; Z79.84 Long term (current) use of oral hypoglycemic drugs; Z79.890 Hormone replacement therapy; Z79.51 Long term (current) use of inhaled steroids; Z79.899 Other long term (current) drug therapy; Z85.828 Personal history of other malignant neoplasm of skin; Z87.11 Personal history of peptic ulcer disease; Z87.442 Personal history of urinary calculi; Z91.81 History of falling; Z90.49 Acquired absence of other specified parts of digestive tract; Z87.19 Personal history of other diseases of the digestive system; Z98.51 Tubal ligation status; Z87.39 Personal history of other diseases of the musculoskeletal system and connective tissue; Z87.440 Personal history of urinary (tract) infections; Z98.890 Other specified postprocedural states; Z91.040 Latex allergy status; Z88.0 Allergy status to penicillin; Z88.1 Allergy status to other antibiotic agents; Z88.5 Allergy status to narcotic agent; Z91.048 Other nonmedicinal substance allergy status; Z82.5 Family history of asthma and other chronic lower respiratory diseases; Z82.49 Family history of ischemic heart disease and other diseases of the circulatory system; Z80.8 Family history of malignant neoplasm of other organs or systems
CPT/HCPCS: 36415; 43270; 45382; 45388; 80048; 80053; 80202; 82607; 82728; 83036; 83540; 83550; 83735; 83921; 84439; 84443; 84481; 85025; 85027; 85045; 85379; 85610; 85730; 86850; 86900; 86901; 86920; 87040; 94640; 96365; 96375; 99285

== ENCOUNTER → 2020-05-06 | Outpatient (CLI) | payer MEDICARE, OTHER ==
[2020-05-06 15:27] LABS: Anisocytosis Slight; Basophils % (A) 0 %; Eosinophils # (A) 0.4 k/uL (0-0.7); Eosinophils % (A) 3 %; Hypochromasia Marked; Lymphocytes % (A) 6 %; MCH 23.8 pg (25.0-35.0); MCHC 28.5 g/dL (31.0-37.0); MCV 83.5 fL (80.0-100.0); Mean Platelet Volume 7.4; Microcytosis Slight; Monocytes # (A) 0.8 k/uL (0-1.0); Monocytes % (A) 5 %; Neutrophils # (A) 12.7 k/uL (1.3-7.7); Neutrophils % (A) 84 %; Platelet Count 436 k/uL (150-450); Poikilocytosis Slight; RBC 2.31 m/uL (3.80-5.40); RDW 18.1 % (11.5-15.5); WBC 15.1 k/uL (3.8-10.6)
[2020-05-06 15:32] LABS: HCT 19.3 % (34.0-46.0); HGB 5.5 gm/dL (11.4-16.0)
[2020-05-07 01:20] LABS: African American GFR (CKD) 101.7 (60.0-200.0); Albumin 3.2 g/dL (3.80-4.90); Albumin/Globulin Ratio 1.88 (1.60-3.17); Anion Gap 11.4 mmol/L (4.00-12.00); BUN/Creat Ratio 44.29 Ratio (12.00-20.00); Calcium 8.4 mg/dL (8.7-10.3); Carbon Dioxide 28.6 mmol/L (21.6-31.8); Globulin 1.7 g/dL (1.6-3.3); Non-African American GFR(CKD) 87.8 (60.0-200.0); Total Bilirubin 0.3 mg/dL (0.2-1.2); Total Protein 4.9 g/dL (6.2-8.2)
[2020-05-07 01:28] LABS: T4, Free (Free Thyroxine) 1.2 ng/dL (0.80-1.80)
[2020-05-07 05:02] LABS: Hemoglobin A1C 5.9 % (4.0-6.0)
== END | disposition home or self-care (01) ==
LOC: LABWHC1 14:27
PROVIDERS: ATTEND Family Medicine
DX: J44.9 Chronic obstructive pulmonary disease, unspecified (principal); E11.65 Type 2 diabetes mellitus with hyperglycemia; I50.30 Unspecified diastolic (congestive) heart failure; J96.90 Respiratory failure, unspecified, unspecified whether with hypoxia or hypercapnia; E03.9 Hypothyroidism, unspecified
CPT/HCPCS: 36415; 80053; 83036; 84439; 84443; 84481; 85025

== ENCOUNTER → 2020-05-14 | Outpatient (CLI) | payer MEDICARE, OTHER ==
[2020-05-14 16:02] LABS: Anisocytosis Slight; Basophils % (A) 0 %; Eosinophils # (A) 0.4 k/uL (0-0.7); Eosinophils % (A) 5 %; HGB 7.2 gm/dL (11.4-16.0); Hypochromasia Marked; Lymphocytes # (A) 0.8 k/uL (1.0-4.8); Lymphocytes % (A) 8 %; MCH 26.1 pg (25.0-35.0); MCHC 30.2 g/dL (31.0-37.0); MCV 86.4 fL (80.0-100.0); Mean Platelet Volume 6.7; Monocytes # (A) 0.4 k/uL (0-1.0); Monocytes % (A) 4 %; Neutrophils % (A) 82 %; Platelet Count 404 k/uL (150-450); RBC 2.78 m/uL (3.80-5.40); RDW 17.7 % (11.5-15.5); WBC 9.8 k/uL (3.8-10.6)
== END | disposition home or self-care (01) ==
LOC: LABWHC1 14:39
PROVIDERS: ATTEND Internal Medicine
DX: D50.9 Iron deficiency anemia, unspecified (principal)
CPT/HCPCS: 36415; 85025

== ENCOUNTER 2020-05-15 14:31 | Inpatient (IN) | payer MEDICARE, OTHER ==
[2020-05-15] MEDS ORDERED: IPRATROPIUM-ALBUTEROL 3 ML NEB INHALATION STA (14:58)
[2020-05-15 15:31] LABS: Anisocytosis Slight; Basophils # (A) 0.1 k/uL (0-0.2); Basophils % (A) 0 %; Eosinophils # (A) 0.5 k/uL (0-0.7); Eosinophils % (A) 4 %; HCT 26.8 % (34.0-46.0); HGB 8.1 gm/dL (11.4-16.0); Hypochromasia Marked; Lymphocytes # (A) 0.9 k/uL (1.0-4.8); Lymphocytes % (A) 7 %; MCH 25.8 pg (25.0-35.0); MCHC 30.2 g/dL (31.0-37.0); MCV 85.3 fL (80.0-100.0); Mean Platelet Volume 6.9; Monocytes # (A) 0.3 k/uL (0-1.0); Monocytes % (A) 3 %; Neutrophils # (A) 10.3 k/uL (1.3-7.7); Neutrophils % (A) 85 %; Platelet Count 445 k/uL (150-450); Poikilocytosis Slight; RBC 3.14 m/uL (3.80-5.40); RDW 17.6 % (11.5-15.5); WBC 12.2 k/uL (3.8-10.6)
--- NOTE | 2020-05-15 15:37 | ED ---
General Adult HPI - General Source: patient Mode of arrival: wheelchair Limitations: no limitations <Jessica Osman - Last Filed: 05/15/20 18:45> <Rukhsana Bravo - Last Filed: 05/16/20 13:01> - General Chief complaint: Extremity Injury, Lower Stated complaint: Swollen L Leg Time Seen by Provider: 05/15/20 14:45 - History of Present Illness Initial comments: 69-year-old female presents to the emergency Department with multiple complaints. States she has increased pain, redness and swelling to her lower legs, left worse than right, for the past 3 days. Patient was admitted to the hospital 10 days ago for GI bleed with Anemia and cellulitis. She was also treated for UTI during that admission and discharged with Bactrim which she completed. She reports continued urinary frequency and dysuria. Denies fever or chills. Also complains of increased shortness of breath. Says it is worse with activity. She does have history of COPD and is oxygen dependent at 2L via nasal cannula. Patient denies any recent rash, cough, chest pain, abdominal pain, nausea, vomiting, diarrhea, constipation, back pain, numbness, tingling, dizziness, weakness, headache, visual changes, or any other complaints. (Jessica Osman) - Related Data Home Medications Medication Instructions Recorded Confirmed Zafirlukast [Accolate] 20 mg PO BID 02/06/14 05/15/20 ARIPiprazole [Abilify] 5 mg PO HS 02/07/18 05/15/20 metFORMIN HCL [Glucophage] 1,000 mg PO BID-W/MEALS 02/07/18 05/15/20 Cholecalciferol [Vitamin D3 (25 1,000 unit PO DAILY 09/03/19 05/15/20 Mcg = 1000 Iu)] Levothyroxine Sodium [Synthroid] 200 mcg PO DAILY 09/03/19 05/15/20 Albuterol Sulfate [Ventolin HFA] 1 - 2 puff INHALATION RT-Q6H PRN 03/11/20 05/15/20 Escitalopram [Lexapro] 20 mg PO DAILY 03/11/20 05/15/20 Furosemide [Lasix] 40 mg PO DAILY 04/27/20 05/15/20 Aspirin EC [Ecotrin Low Dose] 81 mg PO DAILY 05/15/20 05/15/20 traZODone HCL 100 mg PO HS PRN 05/15/20 05/15/20 Previous Rx's Medication Instructions Recorded Atorvastatin [Lipitor] 40 mg PO DAILY #30 tab 09/10/18 Metoprolol Tartrate [Lopressor] 25 mg PO TID #90 tab 09/10/18 Budesonide [Pulmicort] 1 mg INHALATION RT-BID ml 03/27/20 Formoterol Fumarate [Perforomist] 20 mcg INHALATION RT-BID nebu 03/27/20 HYDROcodone/APAP 7.5-325MG [[place] 1 tab PO Q6H PRN #12 tab 03/27/20 7.5-325] Ipratropium-Albuterol Nebulize 3 ml INHALATION RT-Q2H PRN ml 03/27/20 [Duoneb 0.5 mg-3 mg/3 ml Soln] Pantoprazole Sodium [Protonix] 40 mg PO BID #60 tablet. 03/27/20 Magnesium Oxide [Mag-Ox] 400 mg PO DAILY #30 tablet 04/27/20 Allergies Allergy/AdvReac Type Severity Reaction Status Date / Time adhesive Allergy Rash/Hives Verified 05/15/20 14:41 ciprofloxacin [From Cipro] Allergy Rash/Hives Verified 05/15/20 14:41 ciprofloxacin HCl Allergy Rash/Hives Verified 05/15/20 14:41 [From Cipro] latex Allergy Rash/Hives Verified 05/15/20 14:41 nitrofurantoin Allergy Rash/Hives Verified 05/15/20 14:41 [From Macrobid] nitrofurantoin Allergy Rash/Hives Verified 05/15/20 14:41 macrocrystalline [From Macrobid] Penicillins Allergy Rash/Hives Verified 05/15/20 14:41 propoxyphene HCl Allergy Rash/Hives Verified 05/15/20 14:41 [From Darvon] propoxyphene napsylate Allergy Unknown Verified 05/15/20 14:41 [From Darvocet-N] Review of Systems ROS Other: All systems not noted in ROS Statement are negative. <Jessica Osman - Last Filed: 05/15/20 18:45> ROS Other: All systems not noted in ROS Statement are negative. <Rukhsana Bravo - Last Filed: 05/16/20 13:01> ROS Statement: Those systems with pertinent positive or pertinent negative responses have been documented in the HPI. Past Medical History Past Medical History: Asthma, Chest Pain / Angina, COPD, Diabetes Mellitus, Hyperlipidemia, Hypertension, Osteoarthritis (OA), Respiratory Disorder, Skin Disorder, Thyroid Disorder Additional Past Medical History / Comment(s): Obesity (BMI 35) COPD, asthma, diabetes , depression, 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 The patient is also a smoker. The patient has chronic back pain. History of Any Multi-Drug Resistant Organisms: None Reported Past Surgical History: Appendectomy, Section, Cholecystectomy, Orthopedic Surgery, Tubal Ligation Additional Past Surgical History / Comment(s): LASER SX JETHRO EYES FOR GLAUCOMA. RT KNEE ARTHROSCOPY. UNDERWENT PERCUTANEOUS NEPHROSTOLITHOTOMY Past Anesthesia/Blood Transfusion Reactions: No Reported Reaction Past Psychological History: Anxiety, Depression Smoking Status: Current every day smoker Past Alcohol Use History: None Reported Past Drug Use History: None Reported - Past Family History Mother Additional Family Medical History / Comment(s): emphysema, heart valve problems, in her slepp. Brother(s) Family Medical History: Cancer Additional Family Medical History / Comment(s): from oral cancer Father Brother(s) Family Medical History: Cancer Additional Family Medical History / Comment(s): heart disease <Jessica Osman M - Last Filed: 05/15/20 18:45> General Exam Limitations: no limitations General appearance: alert, in no apparent distress, other (Well-developed, well- nourished female presents to the emergency department in no acute distress. Initial vital signs included temperature 97.9F, Pulse 72, respirations 18, blood pressure 108/53, pulse ox 93% on 2 L.) Respiratory exam: Present: wheezes (Throughout all lung campbell; ), other (Shortness of breath at rest. Dyspnea that worsens with exertion. 2L via nasal cannula in place.). Absent: normal lung sounds bilaterally, respiratory distress, rales, rhonchi Cardiovascular Exam: Present: regular rate, normal rhythm, normal heart sounds. Absent: systolic murmur, diastolic murmur, rubs, gallop, clicks GI/Abdominal exam: Present: soft, normal bowel sounds. Absent: distended, tenderness, guarding, rebound, rigid Left Lower Leg exam: Present: tenderness, swelling, erythema (Skin taut, no areas of drainage.) Ankle exam: Present: swelling Neurovascular tendon exam: Present: no vascular compromise Right Lower Leg exam: Present: tenderness, swelling (Skin pink and shiny. No areas of drainage) Neurovascular tendon exam: Present: no vascular compromise Neurological exam: Present: alert, oriented X3, CN II-XII intact Psychiatric exam: Present: normal affect, normal mood Skin exam: Present: warm, dry, intact, other (pale in appearance) <Jessica Osman - Last Filed: 05/15/20 18:45> Course Vital Signs 05/15/20 05/15/20 05/15/20 14:41 15:17 15:23 Temperature 97.9 F Pulse Rate 72 77 68 Respiratory 18 18 18 Rate Blood Pressure 108/53 O2 Sat by Pulse 93 L Oximetry 05/15/20 05/15/20 05/15/20 17:03 18:35 19:21 Temperature 97.9 F Pulse Rate 73 80 80 Respiratory 20 20 20 Rate Blood Pressure 144/50 128/51 128/51 O2 Sat by Pulse 96 95 95 Oximetry Medical Decision Making - Lab Data Result diagrams: 05/15/20 15:20 05/15/20 15:20 - EKG Data EKG shows normal: sinus rhythm Rate: normal - Radiology Data Radiology results: report reviewed, image reviewed <Jessica Osman - Last Filed: 05/15/20 18:45> - Lab Data Result diagrams: 05/16/20 06:03 05/16/20 06:03 <Rukhsana Bravo - Last Filed: 05/16/20 13:01> - Medical Decision Making 69-year-old female patient presents to the emergency department today for evaluation of bilateral lower extremity redness and swelling, she is also reporting urinary frequency, and shortness of breath. Patient was admitted approximately 10 days ago for GI bleed, cellulitis, and was diagnosed with UTI. She did complete Bactrim outpatient. Patient states about 3 days ago she started to have redness and swelling to the legs again. Physical examination did reveal erythema and swelling to the lower extremities, worse on the left. Legs are hot to touch. Lungs did reveal expiratory wheezing in the posterior campbell. She is on 2 L of oxygen chronically, oxygen saturations are satisfactory in the emergency department. Chest x-ray showed chronic changes with no new findings. Labs were reviewed and revealed mildly elevated white blood cell count at 12.2. Hemoglobin is improved from previous at 8.1. BUN and creatinine are elevated. Urinalysis shows evidence for infection with greater than 182 white blood cells. Patient did have multidrug resistant organisms in her previous urine culture. She will be admitted for failed outpatient treatment UTI and cellulitis. Patient is agreeable with this plan. (Jessica Osman) I was available for consultation in the emergency department. The history and physical exam were done by the midlevel provider. I was consulted for this patients care. I reviewed the case with the midlevel provider and based on their presentation of the patient, I agree with the assessment, medical decision making and plan of care as documented. Discussed case with Dr. Short who accepted admission. Chart was dictated using [employer] dictation software. Attempts were made to correct any dictation errors however some typographical errors may persist. Patient was seen during a national state of emergency due to the Covid-19 pandemic. (Rukhsana Bravo) - Lab Data Lab Results 05/15/20 05/15/20 05/15/20 Range/Units 15:20 15:20 15:20 WBC 12.2 H (3.8-10.6) k/uL RBC 3.14 L (3.80-5.40) m/uL Hgb 8.1 L (11.4-16.0) gm/dL Hct 26.8 L (34.0-46.0) % MCV 85.3 (80.0-100.0) fL MCH 25.8 (25.0-35.0) pg MCHC 30.2 L (31.0-37.0) g/dL RDW 17.6 H (11.5-15.5) % Plt Count 445 (150-450) k/uL Neutrophils % 85 % Lymphocytes % 7 % Monocytes % 3 % Eosinophils % 4 % Basophils % 0 % Neutrophils # 10.3 H (1.3-7.7) k/uL Lymphocytes # 0.9 L (1.0-4.8) k/uL Monocytes # 0.3 (0-1.0) k/uL Eosinophils # 0.5 (0-0.7) k/uL Basophils # 0.1 (0-0.2) k/uL Hypochromasia Marked Poikilocytosis Slight Anisocytosis Slight PT 10.5 (9.0-12.0) sec INR 1.0 (<1.2) APTT 24.7 (22.0-30.0) sec Sodium (137-145) mmol/L Potassium (3.5-5.1) mmol/L Chloride (98-107) mmol/L Carbon Dioxide (22-30) mmol/L Anion Gap mmol/L BUN (7-17) mg/dL Creatinine (0.52-1.04) mg/dL Est GFR (CKD-EPI)AfAm (>60 ml/min/1.73 sqM) Est GFR (CKD-EPI)NonAf (>60 ml/min/1.73 sqM) Glucose (74-99) mg/dL Plasma Lactic Acid Ravi (0.7-2.0) mmol/L Calcium (8.4-10.2) mg/dL Total Bilirubin (0.2-1.3) mg/dL AST (14-36) U/L ALT (4-34) U/L Alkaline Phosphatase (38-126) U/L Total Protein (6.3-8.2) g/dL Albumin (3.5-5.0) g/dL Urine Color Light Yellow Urine Appearance Turbid H (Clear) Urine pH 6.5 (5.0-8.0) Ur Specific [place] 1.016 (1.001-1.035) Urine Protein 2+ H (Negative) Urine Glucose (UA) Negative (Negative) Urine Ketones Negative (Negative) Urine Blood Moderate H (Negative) Urine Nitrite Negative (Negative) Urine Bilirubin Negative (Negative) Urine Urobilinogen <2.0 (<2.0) mg/dL Ur Leukocyte Esterase Large H (Negative) Urine RBC 38 H (0-5) /hpf Urine WBC >182 H (0-5) /hpf Urine WBC Clumps Many H (None) /hpf Ur Squamous Epith Cells 7 H (0-4) /hpf Blood Type Blood Type Recheck Bld Type Recheck Status Antibody Screen Spec Expiration Date 05/15/20 05/15/20 05/15/20 Range/Units 15:20 15:20 15:50 WBC (3.8-10.6) k/uL RBC (3.80-5.40) m/uL Hgb (11.4-16.0) gm/dL Hct (34.0-46.0) % MCV (80.0-100.0) fL MCH (25.0-35.0) pg MCHC (31.0-37.0) g/dL RDW (11.5-15.5) % Plt Count (150-450) k/uL Neutrophils % % Lymphocytes % % Monocytes % % Eosinophils % % Basophils % % Neutrophils # (1.3-7.7) k/uL Lymphocytes # (1.0-4.8) k/uL Monocytes # (0-1.0) k/uL Eosinophils # (0-0.7) k/uL Basophils # (0-0.2) k/uL Hypochromasia Poikilocytosis Anisocytosis PT (9.0-12.0) sec INR (<1.2) APTT (22.0-30.0) sec Sodium 133 L (137-145) mmol/L Potassium 5.1 (3.5-5.1) mmol/L Chloride 96 L (98-107) mmol/L Carbon Dioxide 29 (22-30) mmol/L Anion Gap 8 mmol/L BUN 30 H (7-17) mg/dL Creatinine 1.14 H (0.52-1.04) mg/dL Est GFR (CKD-EPI)AfAm 57 (>60 ml/min/1.73 sqM) Est GFR (CKD-EPI)NonAf 49 (>60 ml/min/1.73 sqM) Glucose 164 H (74-99) mg/dL Plasma Lactic Acid Ravi 1.5 (0.7-2.0) mmol/L Calcium 9.2 (8.4-10.2) mg/dL Total Bilirubin 0.3 (0.2-1.3) mg/dL AST 20 (14-36) U/L ALT 18 (4-34) U/L Alkaline Phosphatase 140 H (38-126) U/L Total Protein 6.0 L (6.3-8.2) g/dL Albumin 3.1 L (3.5-5.0) g/dL Urine Color Urine Appearance (Clear) Urine pH (5.0-8.0) Ur Specific [place] (1.001-1.035) Urine Protein (Negative) Urine Glucose (UA) (Negative) Urine Ketones (Negative) Urine Blood (Negative) Urine Nitrite (Negative) Urine Bilirubin (Negative) Urine Urobilinogen (<2.0) mg/dL Ur Leukocyte Esterase (Negative) Urine RBC (0-5) /hpf Urine WBC (0-5) /hpf Urine WBC Clumps (None) /hpf Ur Squamous Epith Cells (0-4) /hpf Blood Type AB Positive Blood Type Recheck AB Pos Bld Type Recheck Status No Antibody Screen NEGATIVE Spec Expiration Date 05/18/2020 - 2349 - EKG Data EKG Comments: EKG obtained at 1511 shows normal sinus rhythm with fusion complexes, right axis deviation, and nonspecific T-wave abnormality. Ventricular rate 70, [place] interval 152, QRS duration 78, QT/QTc 408/440. (Jessica Osman) - Radiology Data Chest x-ray was obtained. Findings include heart of normal size. No heart failure. Coarse lung markings. There is no pleural effusion. Impression per Dr. Gonzales includes coarse lung markings consistent with some pulmonary interstitial fibrosis unchanged. (Jessica Osman) Disposition Decision to Admit Reason: Admit from EC Decision Date: 05/15/20 Decision Time: 17:25 <Jessica Osman - Last Filed: 05/15/20 18:45> <Rukhsana Bravo - Last Filed: 05/16/20 13:01> Clinical Impression: Cellulitis of left lower extremity, UTI (urinary tract infection), Failure of outpatient treatment Disposition: ADMITTED IP TO THIS [facility] Condition: Serious
[2020-05-15 15:44] LABS: Partial Thromboplastin Time 24.7 sec (22.0-30.0); Prothrombin Time 10.5 sec (9.0-12.0)
[2020-05-15 15:52] LABS: Albumin 3.1 g/dL (3.5-5.0); Calcium 9.2 mg/dL (8.4-10.2); Potassium 5.1 mmol/L (3.5-5.1); Total Bilirubin 0.3 mg/dL (0.2-1.3)
[2020-05-15 16:18] LABS: Appearance,Urine Turbid (Clear); Bilirubin,Urine Negative (Negative); Blood,Urine Moderate (Negative); Color,Urine Light Yellow; Glucose,Urine (UA) Negative (Negative); Ketones,Urine Negative (Negative); Leukocyte Esterase,Urine Large (Negative); Nitrite,Urine Negative (Negative); PH, Urine 6.5 (5.0-8.0); Protein,Urine 2+ (Negative); RBC,Urine 38 /hpf (0-5); Specific Gravity,Urine 1.016 (1.001-1.035); Squamous Epithelial Cell,Urine 7 /hpf (0-4); Urobilinogen,Urine <2.0 mg/dL (<2.0); WBC,Urine >182 /hpf (0-5)
--- NOTE | 2020-05-15 16:25 | XR ---
EXAMINATION TYPE: XR chest 2V DATE OF EXAM: 05/15/2020 COMPARISON: 04/27/2020 HISTORY: Short of breath TECHNIQUE: FINDINGS: Heart size is normal. There is no heart failure. There is coarsening of interstitial markin gs. There is no pleural effusion. IMPRESSION: Coarse lung markings consistent with some pulmonary interstitial fibrosis unchanged.
[2020-05-15] MEDS ORDERED: FLUCONAZOLE 150 MG TAB PO STA (16:32)
[2020-05-15] MEDS ORDERED: VANCOMYCIN IV PER PHARMACY 1 EACH MISC MISCELLANE PRN (16:38)
[2020-05-15] MEDS ORDERED: VANCOMYCIN 1,500 MG in SODIUM CHLORIDE 0.9% 250 ML IVPB STA (16:40)
[2020-05-15] MEDS ORDERED: NALOXONE 0.4 MG/ML 1 ML VIAL IV PRN (17:19)
[2020-05-15] MEDS ORDERED: ACETAMINOPHEN TAB 325 MG TAB PO PRN (17:19)
[2020-05-15] MEDS: SODIUM CHLORIDE 0.9% 1,000 ML IV SCH (18:35)
[2020-05-15] MEDS ORDERED: HYDROcodone/APAP 5-325MG 1 EACH TAB PO PRN (18:44)
--- NOTE | 2020-05-15 18:56 | P.HPIM ---
History of Present Illness H&P Date: 05/15/20 69-year-old female with PMH of diabetes mellitus, recurrent lower extremity cellulitis, COPD, hypertension, dyslipidemia presented to the ED for worsening symptoms since her discharge. She was discharged on 05/09/2020 on oral antibiotics her UTI and cellulitis. Patient states that she took her course of Bactrim. She reports worsening of her lower extremity swelling and erythema along with dysuria and difficulty urinating. This prompted her to come to the ED. She denies any headache, nausea or vomiting, fever or chills, cough, chest pain, shortness of breath, palpitations, changes in bowel habits. No changes in appetite or weight. She denies any dizziness, numbness/weakness/tingling of the extremities. In the ED, her vital signs are stable. CBC showed a leukocytosis of 12.2 and hemoglobin of 8.1 which improved from 7.7 on previous discharge. CMP showed sodium of 133, chloride of 96, BUN of 30, creatinine of 1.14, glucose of 164, alkaline phosphatase 140. Urinalysis shows moderate blood and large leukocyte esterase. Patient is admitted for failure of outpatient treatment of cellulitis and UTI with infectious disease on consult. Review of Systems Pertinent positives and negatives as discussed in HPI, a complete review of syst ems was performed and all other systems are negative. Past Medical History Past Medical History: Asthma, Chest Pain / Angina, COPD, Diabetes Mellitus, Hyperlipidemia, Hypertension, Osteoarthritis (OA), Respiratory Disorder, Skin Disorder, Thyroid Disorder Additional Past Medical History / Comment(s): Obesity (BMI 35) COPD, asthma, diabetes , depression, 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 The patient is also a smoker. The patient has chronic back pain. History of Any Multi-Drug Resistant Organisms: None Reported Past Surgical History: Appendectomy, Section, Cholecystectomy, Orthopedic Surgery, Tubal Ligation Additional Past Surgical History / Comment(s): LASER SX JETHRO EYES FOR GLAUCOMA. RT KNEE ARTHROSCOPY. UNDERWENT PERCUTANEOUS NEPHROSTOLITHOTOMY Past Anesthesia/Blood Transfusion Reactions: No Reported Reaction Past Psychological History: Anxiety, Depression Smoking Status: Current every day smoker Past Alcohol Use History: None Reported Past Drug Use History: None Reported - Past Family History Mother Additional Family Medical History / Comment(s): emphysema, heart valve problems, in her slepp. Brother(s) Family Medical History: Cancer Additional Family Medical History / Comment(s): from oral cancer Father Brother(s) Family Medical History: Cancer Additional Family Medical History / Comment(s): heart disease Medications and Allergies Home Medications Medication Instructions Recorded Confirmed Type Zafirlukast [Accolate] 20 mg PO BID 02/06/14 05/15/20 History ARIPiprazole [Abilify] 5 mg PO HS 02/07/18 05/15/20 History metFORMIN HCL [Glucophage] 1,000 mg PO BID-W/MEALS 02/07/18 05/15/20 History Atorvastatin [Lipitor] 40 mg PO DAILY #30 tab 09/10/18 05/15/20 Rx Metoprolol Tartrate [Lopressor] 25 mg PO TID #90 tab 09/10/18 05/15/20 Rx Cholecalciferol [Vitamin D3 (25 1,000 unit PO DAILY 09/03/19 05/15/20 History Mcg = 1000 Iu)] Levothyroxine Sodium [Synthroid] 200 mcg PO DAILY 09/03/19 05/15/20 History Albuterol Sulfate [Ventolin HFA] 1 - 2 puff INHALATION RT-Q6H PRN 03/11/20 05/15/20 History Escitalopram [Lexapro] 20 mg PO DAILY 03/11/20 05/15/20 History Budesonide [Pulmicort] 1 mg INHALATION RT-BID ml 03/27/20 05/15/20 Rx Formoterol Fumarate [Perforomist] 20 mcg INHALATION RT-BID nebu 03/27/20 05/15/20 Rx HYDROcodone/APAP 7.5-325MG [[place] 1 tab PO Q6H PRN #12 tab 03/27/20 05/15/20 Rx 7.5-325] Ipratropium-Albuterol Nebulize 3 ml INHALATION RT-Q2H PRN ml 03/27/20 05/15/20 Rx [Duoneb 0.5 mg-3 mg/3 ml Soln] Pantoprazole Sodium [Protonix] 40 mg PO BID #60 tablet. 03/27/20 05/15/20 Rx Furosemide [Lasix] 40 mg PO DAILY 04/27/20 05/15/20 History Magnesium Oxide [Mag-Ox] 400 mg PO DAILY #30 tablet 04/27/20 05/15/20 Rx Aspirin EC [Ecotrin Low Dose] 81 mg PO DAILY 05/15/20 05/15/20 History Allergies Allergy/AdvReac Type Severity Reaction Status Date / Time adhesive Allergy Rash/Hives Verified 05/15/20 14:41 ciprofloxacin [From Cipro] Allergy Rash/Hives Verified 05/15/20 14:41 ciprofloxacin HCl Allergy Rash/Hives Verified 05/15/20 14:41 [From Cipro] latex Allergy Rash/Hives Verified 05/15/20 14:41 nitrofurantoin Allergy Rash/Hives Verified 05/15/20 14:41 [From Macrobid] nitrofurantoin Allergy Rash/Hives Verified 05/15/20 14:41 macrocrystalline [From Macrobid] Penicillins Allergy Rash/Hives Verified 05/15/20 14:41 propoxyphene HCl Allergy Rash/Hives Verified 05/15/20 14:41 [From Darvon] propoxyphene napsylate Allergy Unknown Verified 05/15/20 14:41 [From Darvocet-N] Physical Exam Vitals: Vital Signs Temp Pulse Resp BP Pulse Ox 05/15/20 18:35 80 20 128/51 95 05/15/20 17:03 73 20 144/50 96 05/15/20 15:23 68 18 05/15/20 15:17 77 18 05/15/20 14:41 97.9 F 72 18 108/53 93 L Intake and Output 05/15/20 05/15/20 05/15/20 06:59 14:59 22:59 Other: Weight 78.471 kg General: [non toxic], [no distress], [appears at stated age] Derm: [warm], [dry] Head: [atraumatic], [normocephalic], [symmetric] Eyes: [EOMI], [no lid lag], [anicteric sclera] Mouth: [no lip lesion], [mucus membranes moist] Cardiovascular: [S1S2 reg], [no murmur], [positive posterior tibial pulse bilateral], Lungs: [CTA bilateral], [no rhonchi, no rales] , [no accessory muscle use] Abdominal: [soft], [ nontender to palpation], [no guarding], [no appreciable organomegaly], suprapubic tenderness Ext: [no gross muscle atrophy], [2+ pitting edema left greater than right], [no contractures], erythema bilateral lower extremities Neuro: [ CN II-XI grossly intact], [no focal neuro deficits] Psych: [Alert], [oriented], [appropriate affect] Results CBC & Chem 7: 05/15/20 15:20 05/15/20 15:20 Labs: Abnormal Lab Results - Last 24 Hours (Table) 05/15/20 05/15/20 05/15/20 Range/Units 15:20 15:20 15:20 WBC 12.2 H (3.8-10.6) k/uL RBC 3.14 L (3.80-5.40) m/uL Hgb 8.1 L (11.4-16.0) gm/dL Hct 26.8 L (34.0-46.0) % MCHC 30.2 L (31.0-37.0) g/dL RDW 17.6 H (11.5-15.5) % Neutrophils # 10.3 H (1.3-7.7) k/uL Lymphocytes # 0.9 L (1.0-4.8) k/uL Sodium 133 L (137-145) mmol/L Chloride 96 L (98-107) mmol/L BUN 30 H (7-17) mg/dL Creatinine 1.14 H (0.52-1.04) mg/dL Glucose 164 H (74-99) mg/dL Alkaline Phosphatase 140 H (38-126) U/L Total Protein 6.0 L (6.3-8.2) g/dL Albumin 3.1 L (3.5-5.0) g/dL Urine Appearance Turbid H (Clear) Urine Protein 2+ H (Negative) Urine Blood Moderate H (Negative) Ur Leukocyte Esterase Large H (Negative) Urine RBC 38 H (0-5) /hpf Urine WBC >182 H (0-5) /hpf Urine WBC Clumps Many H (None) /hpf Ur Squamous Epith Cells 7 H (0-4) /hpf Assessment and Plan Assessment: UTI Cellulitis Anemia with history of GI telangiectasia COPD without exacerbation Hypothyroidism Diabetes mellitus Morbid obesity with BMI 34.4 Patient returns for worsening erythema and dysuria since her discharge on 05/09/2020. Patient does not meet sepsis criteria. Her previous urine culture is positive for Klebsiella pneumonia and enterococcus. She'll be started on Rocephin and vancomycin. Blood cultures have been collected. Obtain venous duplex to rule out DVT. Infectious disease was consulted. Her hemoglobin has improved from her previous admission and will be monitored. Started on DuoNeb as needed for shortness of breath and wheezing. Her Synthroid will be resumed. She'll be started on insulin sinus with regular Accu-Cheks and hypoglycemic precautions. Patient would benefit from structured weight loss program. DVT prophylaxis: [SCD] Discussed with: [Patient and ] Anticipated discharge: [Home] Anticipated discharge place: [2-3 days] A total of [45] minutes was spent on the care of this complex patient more than 50% of the time was spent in counseling and care coordination. Patient with like to be full code. She names her and sons decision maker if she can't make decisions for herself.
[2020-05-15 19:57] LABS: Glucose,Whole Blood 142 mg/dL (75-99)
[2020-05-15] MEDS: HYDROcodone/APAP 7.5-325MG 1 EACH TAB PO PRN (20:08)
[2020-05-15] MEDS: INSULIN ASPART (NovoLOG) 100 UNIT/ML VIAL SQ SCH (21:31)
[2020-05-15] MEDS: PANTOPRAZOLE 40 MG TABLET PO SCH (21:31)
[2020-05-15] MEDS: METOPROLOL TARTRATE 25 MG TAB PO SCH (21:31)
[2020-05-15] MEDS: traZODone HCL 100 MG TAB PO PRN (21:31)
[2020-05-15] MEDS: MONTELUKAST 10 MG TAB PO SCH (21:31)
[2020-05-15] MEDS: ARIPiprazole 5 MG TAB PO SCH (21:31)
[2020-05-16] MEDS: HYDROcodone/APAP 7.5-325MG 1 EACH TAB PO PRN ×3 (02:33→23:22)
[2020-05-16] MEDS: LEVOTHYROXINE 100 MCG TAB PO SCH (06:07)
[2020-05-16 07:00] LABS: Anisocytosis Slight; Basophils % (A) 0 %; Eosinophils # (A) 0.4 k/uL (0-0.7); Eosinophils % (A) 5 %; HCT 23.8 % (34.0-46.0); HGB 7.2 gm/dL (11.4-16.0); Hypochromasia Marked; Lymphocytes % (A) 12 %; MCH 26.7 pg (25.0-35.0); MCHC 30.5 g/dL (31.0-37.0); MCV 87.5 fL (80.0-100.0); Mean Platelet Volume 6.7; Monocytes # (A) 0.5 k/uL (0-1.0); Monocytes % (A) 6 %; Neutrophils # (A) 5.8 k/uL (1.3-7.7); Neutrophils % (A) 75 %; Platelet Count 420 k/uL (150-450); Poikilocytosis Slight; RBC 2.72 m/uL (3.80-5.40); RDW 17.3 % (11.5-15.5); WBC 7.8 k/uL (3.8-10.6)
[2020-05-16 08:13] LABS: Glucose,Whole Blood 130 mg/dL (75-99)
[2020-05-16] MEDS: IPRATROPIUM-ALBUTEROL 3 ML NEB INHALATION PRN ×4 (08:33→21:06)
[2020-05-16] MEDS: PANTOPRAZOLE 40 MG TABLET PO SCH ×2 (08:53→17:39)
[2020-05-16] MEDS: ASPIRIN 81 MG PO SCH (08:53)
[2020-05-16] MEDS: ESCITALOPRAM 20 MG TAB PO SCH (08:53)
[2020-05-16] MEDS: ATORVASTATIN 40 MG TAB PO SCH (08:53)
[2020-05-16] MEDS: METOPROLOL TARTRATE 25 MG TAB PO SCH ×3 (08:53→21:51)
[2020-05-16] MEDS: INSULIN ASPART (NovoLOG) 100 UNIT/ML VIAL SQ SCH ×4 (08:53→21:52)
--- NOTE | 2020-05-16 08:53 | US ---
EXAMINATION TYPE: US venous doppler duplex LE BI DATE OF EXAM: 05/15/2020 9:50 PM COMPARISON: 03/26/2020 CLINICAL HISTORY: r/o DVT. Left leg cellulitis SIDE PERFORMED: Bilateral TECHNIQUE: The lower extremity deep venous system is examined utilizing real time linear array sonog chacorta with graded compression, doppler sonography and color-flow sonography. VESSELS IMAGED: External Iliac Vein (EIV) Common Femoral Vein Deep Femoral Vein Greater Saphenous Vein * Femoral Vein Popliteal Vein Small Saphenous Vein * Proximal Calf Veins (* superficial vessels) Right Leg: Negative for DVT Left Leg: Negative for DVT IMPRESSION: 1. Bilateral lower extremity ultrasound negative for deep venous thrombosis.
[2020-05-16] MEDS ORDERED: FUROSEMIDE 40 MG TAB PO SCH (09:00)
[2020-05-16 09:41] LABS: Albumin 3.1 g/dL (3.80-4.90); Albumin/Globulin Ratio 1.55 (1.60-3.17); Anion Gap 6.8 mmol/L (4.00-12.00); BUN/Creat Ratio 24.17 Ratio (12.00-20.00); Calcium 8.7 mg/dL (8.7-10.3); Carbon Dioxide 30.2 mmol/L (21.6-31.8); Non-African American GFR(CKD) 45.8 (60.0-200.0); Total Bilirubin 0.2 mg/dL (0.3-1.2); Total Protein 5.1 g/dL (6.2-8.2)
[2020-05-16 11:37] LABS: Glucose,Whole Blood 145 mg/dL (75-99)
[2020-05-16] MEDS: VANCOMYCIN 1,500 MG in SODIUM CHLORIDE 0.9% 250 ML IVPB SCH (12:25)
--- NOTE | 2020-05-16 14:29 | P.PN ---
Subjective Progress Note Date: 05/16/20 Patient was seen and examined. No acute events overnight. Patient reports slight improvement in the redness in her bilateral lower extremity. Continues to complain of lower extremity swelling left greater than right. She denies any dysuria or abdominal discomfort. States that she was ALLERGIC to Bactrim because it led to an yeast infection. She denies any chest pain, shortness of breath or palpitations. No nausea or vomiting. No fever or chills. Objective - Vital Signs Vital signs: Vital Signs Temp 98.4 F 05/16/20 11:45 Pulse 68 05/16/20 11:47 Resp 16 05/16/20 11:45 BP 108/64 05/16/20 11:45 Pulse Ox 94 L 05/16/20 11:45 Intake & Output 05/15/20 05/16/20 05/16/20 18:59 06:59 18:59 Weight 78.471 kg 78.471 kg Other: Voiding Method Bedside Commode Bedside Commode # Voids 2 4 # Bowel Movements 1 - Exam General: [non toxic], [no distress], [appears at stated age] Derm: [warm], [dry] Head: [atraumatic], [normocephalic], [symmetric] Eyes: [EOMI], [no lid lag], [anicteric sclera] Mouth: [no lip lesion], [mucus membranes moist] Cardiovascular: [S1S2 reg], [no murmur], [positive posterior tibial pulse bilateral], Lungs: [CTA bilateral], [no rhonchi, no rales] , [no accessory muscle use] Abdominal: [soft], [ nontender to palpation], [no guarding], [no appreciable organomegaly], suprapubic tenderness Ext: [no gross muscle atrophy], [2+ pitting edema left greater than right], [no contractures], erythema bilateral lower extremities Neuro: [no focal neuro deficits] Psych: [Alert], [oriented], [appropriate affect] - Labs CBC & Chem 7: 05/16/20 06:03 05/16/20 06:03 Labs: Abnormal Lab Results - Last 24 Hours (Table) 05/15/20 05/15/20 05/15/20 Range/Units 15:20 15:20 15:20 WBC 12.2 H (3.8-10.6) k/uL RBC 3.14 L (3.80-5.40) m/uL Hgb 8.1 L (11.4-16.0) gm/dL Hct 26.8 L (34.0-46.0) % MCHC 30.2 L (31.0-37.0) g/dL RDW 17.6 H (11.5-15.5) % Neutrophils # 10.3 H (1.3-7.7) k/uL Lymphocytes # 0.9 L (1.0-4.8) k/uL Sodium 133 L (137-145) mmol/L Chloride 96 L (98-107) mmol/L BUN 30 H (7-17) mg/dL Creatinine 1.14 H (0.52-1.04) mg/dL Est GFR (CKD-EPI)AfAm (60.0-200.0) Est GFR (CKD-EPI)NonAf (60.0-200.0) BUN/Creatinine Ratio (12.00-20.00) Ratio Glucose 164 H (74-99) mg/dL POC Glucose (mg/dL) (75-99) mg/dL Total Bilirubin (0.3-1.2) mg/dL Alkaline Phosphatase 140 H (38-126) U/L Total Protein 6.0 L (6.3-8.2) g/dL Albumin 3.1 L (3.5-5.0) g/dL Albumin/Globulin Ratio (1.60-3.17) g/dL Urine Appearance Turbid H (Clear) Urine Protein 2+ H (Negative) Urine Blood Moderate H (Negative) Ur Leukocyte Esterase Large H (Negative) Urine RBC 38 H (0-5) /hpf Urine WBC >182 H (0-5) /hpf Urine WBC Clumps Many H (None) /hpf Ur Squamous Epith Cells 7 H (0-4) /hpf 05/15/20 05/16/20 05/16/20 Range/Units 19:56 06:03 06:03 WBC (3.8-10.6) k/uL RBC 2.72 L (3.80-5.40) m/uL Hgb 7.2 L (11.4-16.0) gm/dL Hct 23.8 L (34.0-46.0) % MCHC 30.5 L (31.0-37.0) g/dL RDW 17.3 H (11.5-15.5) % Neutrophils # (1.3-7.7) k/uL Lymphocytes # (1.0-4.8) k/uL Sodium 134 L (137-145) mmol/L Chloride (98-107) mmol/L BUN 29.0 H (7-17) mg/dL Creatinine (0.52-1.04) mg/dL Est GFR (CKD-EPI)AfAm 53.0 L (60.0-200.0) Est GFR (CKD-EPI)NonAf 45.8 L (60.0-200.0) BUN/Creatinine Ratio 24.17 H (12.00-20.00) Ratio Glucose (74-99) mg/dL POC Glucose (mg/dL) 142 H (75-99) mg/dL Total Bilirubin 0.2 L (0.3-1.2) mg/dL Alkaline Phosphatase 127 H (38-126) U/L Total Protein 5.1 L (6.3-8.2) g/dL Albumin 3.10 L (3.5-5.0) g/dL Albumin/Globulin Ratio 1.55 L (1.60-3.17) g/dL Urine Appearance (Clear) Urine Protein (Negative) Urine Blood (Negative) Ur Leukocyte Esterase (Negative) Urine RBC (0-5) /hpf Urine WBC (0-5) /hpf Urine WBC Clumps (None) /hpf Ur Squamous Epith Cells (0-4) /hpf 05/16/20 05/16/20 Range/Units 08:12 11:35 WBC (3.8-10.6) k/uL RBC (3.80-5.40) m/uL Hgb (11.4-16.0) gm/dL Hct (34.0-46.0) % MCHC (31.0-37.0) g/dL RDW (11.5-15.5) % Neutrophils # (1.3-7.7) k/uL Lymphocytes # (1.0-4.8) k/uL Sodium (137-145) mmol/L Chloride (98-107) mmol/L BUN (7-17) mg/dL Creatinine (0.52-1.04) mg/dL Est GFR (CKD-EPI)AfAm (60.0-200.0) Est GFR (CKD-EPI)NonAf (60.0-200.0) BUN/Creatinine Ratio (12.00-20.00) Ratio Glucose (74-99) mg/dL POC Glucose (mg/dL) 130 H 145 H (75-99) mg/dL Total Bilirubin (0.3-1.2) mg/dL Alkaline Phosphatase (38-126) U/L Total Protein (6.3-8.2) g/dL Albumin (3.5-5.0) g/dL Albumin/Globulin Ratio (1.60-3.17) g/dL Urine Appearance (Clear) Urine Protein (Negative) Urine Blood (Negative) Ur Leukocyte Esterase (Negative) Urine RBC (0-5) /hpf Urine WBC (0-5) /hpf Urine WBC Clumps (None) /hpf Ur Squamous Epith Cells (0-4) /hpf Microbiology - Last 24 Hours (Table) 05/15/20 15:20 Urine Culture - Preliminary Urine,Voided Assessment and Plan Assessment: UTI Cellulitis Anemia with history of GI telangiectasia COPD without exacerbation Hypothyroidism Diabetes mellitus Morbid obesity with BMI 34.4 Urinalysis shows large leukocyte esterase. Previous urine culture positive for Klebsiella pneumonia and enterococcus. Plans: Continue Rocephin and vancomycin. Follow urine culture. Follow blood culture. Follow ID recommendations. Venous duplex ruled out DVT. Plans: Continue IV antibiotics as above. Elevate lower extremities. Hemoglobin 7.2. History of GI telangiectasia. Plans: Repeat CBC tomorrow morning. Continue to monitor. Plans: Started on DuoNeb as needed for shortness of breath and wheezing. Plans: Her Synthroid will be resumed. Plans: She'll be started on insulin sinus with regular Accu-Cheks and hypoglycemic precautions. Plans: Patient would benefit from structured weight loss program. [Patient admitted for UTI and cellulitis. Urine culture is pending. Continue IV antibiotics. Infectious disease on board. Anticipated DC home in 1-2 days.]
[2020-05-16] MEDS: SODIUM CHLORIDE 0.9% 1,000 ML IV SCH (15:25)
[2020-05-16 16:45] LABS: Glucose,Whole Blood 159 mg/dL (75-99)
[2020-05-16] MEDS: FUROSEMIDE 10 MG/ML 4 ML VIAL IV SCH (17:39)
[2020-05-16] MEDS ORDERED: FLUCONAZOLE 150 MG TAB PO STA (18:11)
[2020-05-16 19:57] LABS: Glucose,Whole Blood 185 mg/dL (75-99)
[2020-05-16] MEDS: ARIPiprazole 5 MG TAB PO SCH (21:51)
[2020-05-16] MEDS: MONTELUKAST 10 MG TAB PO SCH (21:52)
[2020-05-16] MEDS: traZODone HCL 100 MG TAB PO PRN (21:55)
--- NOTE | 2020-05-16 22:44 | P.CONS ---
History of Present Illness - Reason for Consult Consult date: 05/16/20 Cellulitis and UTI Requesting physician: Valerie Parisi - Chief Complaint Left leg swelling and redness x 3 days - History of Present Illness Patient is a 69-year-old female presenting to the ER at [facility] yesterday afternoon for evaluation of increasing pain and swelling redness or left leg that been getting worse for the last 3 days in this patient who did have a bilateral lower extremity swelling patient to currently was recently admitted to this facility and treated for GI bleed and cellulitis and was treated with the Bactrim DS with the patient has completed, patient on arrival to the ER was afebrile she did have elevated white count 4000 patient is complaining of more swelling and redness patient of the left neck she did have a dull aching pain to the left leg and deficit is about 60 cm show no radiation patient denies having any chest pain or shortness of cough no nausea or bone pain didn't mention she did have a UTI as she did have pain in the private area but no significant frequency or urgency patient was evaluated by the patient did have lower extremity Doppler was negative for DVT patient did have positive UA s hows started on Rocephin and vancomycin and admitted to the hospital infection disease was consulted for further management of antibiotic therapy Review of Systems Positive point has been mentioned in the HPI rest of the systems are negative Past Medical History Past Medical History: Asthma, Chest Pain / Angina, COPD, Diabetes Mellitus, Hyperlipidemia, Hypertension, Osteoarthritis (OA), Respiratory Disorder, Skin Disorder, Thyroid Disorder Additional Past Medical History / Comment(s): Obesity (BMI 35) COPD, asthma, diabetes , depression, 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 The patient is also a smoker. The patient has chronic back pain. History of Any Multi-Drug Resistant Organisms: None Reported Past Surgical History: Appendectomy, Section, Cholecystectomy, Orthopedic Surgery, Tubal Ligation Additional Past Surgical History / Comment(s): LASER SX JETHRO EYES FOR GLAUCOMA. RT KNEE ARTHROSCOPY. UNDERWENT PERCUTANEOUS NEPHROSTOLITHOTOMY Past Anesthesia/Blood Transfusion Reactions: No Reported Reaction Past Psychological History: Anxiety, Depression Additional Psychological History / Comment(s): pt stated maintained by [employer]. and lives with the and adult son. 2 adult children. 2 dogs and 6 cats in the home, they rescue. Ongoing tobacco use but denied alcohol use or recreational drug use. Does not work outside of the home. No experience. No travel history Smoking Status: Former smoker Past Alcohol Use History: None Reported Additional Past Alcohol Use History / Comment(s): Patient is an active smoker one pack per day and started smoking in 1968. She denies any marijuana, illicit drug use or alcohol use. She is and lives at home with her . There are 2 dogs and 2 cats in the home. No service and no travel history. Past Drug Use History: None Reported - Past Family History Mother Additional Family Medical History / Comment(s): emphysema, heart valve problems, in her slepp. Brother(s) Family Medical History: Cancer Additional Family Medical History / Comment(s): from oral cancer Father Brother(s) Family Medical History: Cancer Additional Family Medical History / Comment(s): heart disease Medications and Allergies Home Medications Medication Instructions Recorded Confirmed Type Zafirlukast [Accolate] 20 mg PO BID 02/06/14 05/15/20 History ARIPiprazole [Abilify] 5 mg PO HS 02/07/18 05/15/20 History metFORMIN HCL [Glucophage] 1,000 mg PO BID-W/MEALS 02/07/18 05/15/20 History Atorvastatin [Lipitor] 40 mg PO DAILY #30 tab 09/10/18 05/15/20 Rx Metoprolol Tartrate [Lopressor] 25 mg PO TID #90 tab 09/10/18 05/15/20 Rx Cholecalciferol [Vitamin D3 (25 1,000 unit PO DAILY 09/03/19 05/15/20 History Mcg = 1000 Iu)] Levothyroxine Sodium [Synthroid] 200 mcg PO DAILY 09/03/19 05/15/20 History Albuterol Sulfate [Ventolin HFA] 1 - 2 puff INHALATION RT-Q6H PRN 03/11/20 05/15/20 History Escitalopram [Lexapro] 20 mg PO DAILY 03/11/20 05/15/20 History Budesonide [Pulmicort] 1 mg INHALATION RT-BID ml 03/27/20 05/15/20 Rx Formoterol Fumarate [Perforomist] 20 mcg INHALATION RT-BID nebu 03/27/20 Rx HYDROcodone/APAP 7.5-325MG [[place] 1 tab PO Q6H PRN #12 tab 03/27/20 05/15/20 Rx 7.5-325] Ipratropium-Albuterol Nebulize 3 ml INHALATION RT-Q2H PRN ml 03/27/20 05/15/20 Rx [Duoneb 0.5 mg-3 mg/3 ml Soln] Pantoprazole Sodium [Protonix] 40 mg PO BID #60 tablet. 03/27/20 05/15/20 Rx Furosemide [Lasix] 40 mg PO DAILY 04/27/20 05/15/20 History Magnesium Oxide [Mag-Ox] 400 mg PO DAILY #30 tablet 04/27/20 05/15/20 Rx Aspirin EC [Ecotrin Low Dose] 81 mg PO DAILY 05/15/20 05/15/20 History traZODone HCL 100 mg PO HS PRN 05/15/20 05/15/20 History Allergies Allergy/AdvReac Type Severity Reaction Status Date / Time adhesive Allergy Rash/Hives Verified 05/15/20 14:41 ciprofloxacin [From Cipro] Allergy Rash/Hives Verified 05/15/20 14:41 ciprofloxacin HCl Allergy Rash/Hives Verified 05/15/20 14:41 [From Cipro] latex Allergy Rash/Hives Verified 05/15/20 14:41 nitrofurantoin Allergy Rash/Hives Verified 05/15/20 14:41 [From Macrobid] nitrofurantoin Allergy Rash/Hives Verified 05/15/20 14:41 macrocrystalline [From Macrobid] Penicillins Allergy Rash/Hives Verified 05/15/20 14:41 propoxyphene HCl Allergy Rash/Hives Verified 05/15/20 14:41 [From Darvon] propoxyphene napsylate Allergy Unknown Verified 05/15/20 14:41 [From Darvocet-N] Physical Exam Vitals: Vital Signs Temp Pulse Pulse Resp BP Pulse Ox 05/16/20 16:55 68 05/16/20 16:45 66 05/16/20 11:47 68 05/16/20 11:45 98.4 F 66 16 108/64 94 L 05/16/20 11:39 68 05/16/20 08:42 64 05/16/20 08:34 64 05/16/20 05:00 97.8 F 60 18 113/67 97 05/16/20 00:10 18 05/15/20 21:26 98 F 67 18 127/72 97 Intake and Output 05/16/20 05/16/20 05/16/20 06:59 14:59 22:59 Other: Voiding Method Bedside Commode Bedside Commode # Voids 2 4 # Bowel Movements 1 GENERAL DESCRIPTION: Many female up in the chair, no distress. No tachypnea or accessory muscle of respiration use. HEENT: Shows Pallor , no scleral icterus. Oral mucous membrane is dry. No pharyngeal erythema or thrush NECK: Trachea central, no thyromegaly. LUNGS: Unlabored breathing. Clear to auscultation anteriorly. No wheeze or crackle. HEART: S1, S2, regular rate and rhythm. No loud murmur ABDOMEN: Soft, no tenderness , guarding or rigidity, no organomegaly EXTREMITIES: Bilateral lower extremity swelling with minimal redness to the left leg slightly warm to touch no skin breakdown or any drainage SKIN: No rash, no masses palpable. NEUROLOGICAL: The patient is awake, alert, oriented x3, mood and affect normal. Results CBC & Chem 7: 05/16/20 06:03 05/16/20 06:03 Labs: Abnormal Lab Results - Last 24 Hours (Table) 05/15/20 05/16/20 05/16/20 Range/Units 19:56 06:03 06:03 RBC 2.72 L (3.80-5.40) m/uL Hgb 7.2 L (11.4-16.0) gm/dL Hct 23.8 L (34.0-46.0) % MCHC 30.5 L (31.0-37.0) g/dL RDW 17.3 H (11.5-15.5) % Sodium 134 L (135-145) mmol/L BUN 29.0 H (9.0-27.0) mg/dL Est GFR (CKD-EPI)AfAm 53.0 L (60.0-200.0) Est GFR (CKD-EPI)NonAf 45.8 L (60.0-200.0) BUN/Creatinine Ratio 24.17 H (12.00-20.00) Ratio POC Glucose (mg/dL) 142 H (75-99) mg/dL Total Bilirubin 0.2 L (0.3-1.2) mg/dL Alkaline Phosphatase 127 H (41-126) U/L Total Protein 5.1 L (6.2-8.2) g/dL Albumin 3.10 L (3.80-4.90) g/dL Albumin/Globulin Ratio 1.55 L (1.60-3.17) g/dL 05/16/20 05/16/20 05/16/20 Range/Units 08:12 11:35 16:43 RBC (3.80-5.40) m/uL Hgb (11.4-16.0) gm/dL Hct (34.0-46.0) % MCHC (31.0-37.0) g/dL RDW (11.5-15.5) % Sodium (135-145) mmol/L BUN (9.0-27.0) mg/dL Est GFR (CKD-EPI)AfAm (60.0-200.0) Est GFR (CKD-EPI)NonAf (60.0-200.0) BUN/Creatinine Ratio (12.00-20.00) Ratio POC Glucose (mg/dL) 130 H 145 H 159 H (75-99) mg/dL Total Bilirubin (0.3-1.2) mg/dL Alkaline Phosphatase (41-126) U/L Total Protein (6.2-8.2) g/dL Albumin (3.80-4.90) g/dL Albumin/Globulin Ratio (1.60-3.17) g/dL Microbiology - Last 24 Hours (Table) 05/15/20 15:20 Urine Culture - Final Urine,Voided 05/15/20 15:20 Blood Culture - Preliminary Blood No Growth after 24 hours Assessment and Plan Assessment: 1-patient presented to hospital with increasing swelling especially to the left leg with limit of cellulitis with diffuse swelling redness. More likely streptococcal disease with recent admission underlying MRSA not entirely excluded 2- patient with a positive UA and urine symptom likely symptomatic tract in fection 3- Patient with multiple antibiotic ALLERGIES that would limit the number of antibiotic safe to use (1) Cellulitis of left lower extremity Current Visit: Yes Status: Acute Code(s): L03.116 - CELLULITIS OF LEFT LOWER LIMB SNOMED Code(s): 751933736 (2) UTI (urinary tract infection) Current Visit: Yes Status: Acute Code(s): N39.0 - URINARY TRACT INFECTION, SITE NOT SPECIFIED SNOMED Code(s): 08276440 Plan: 1- Vancomycin pharmacy to dose target trough of 15 while watching his kidney function and Vanco trough closely 2-Rocephin 1 g daily We will follow on clinical condition and cultures to further adjust medication i f needed Thank you for this consultation will follow this patient with you Time with Patient: Greater than 30
[2020-05-17 06:04] LABS: HCT 23.4 % (34.0-46.0); HGB 7.1 gm/dL (11.4-16.0); MCH 26.4 pg (25.0-35.0); MCHC 30.2 g/dL (31.0-37.0); MCV 87.5 fL (80.0-100.0); RBC 2.67 m/uL (3.80-5.40); WBC 9.3 k/uL (3.8-10.6)
[2020-05-17 06:05] LABS: Anisocytosis Slight; Basophils % (A) 0 %; Eosinophils # (A) 0.5 k/uL (0-0.7); Eosinophils % (A) 6 %; Hypochromasia Marked; Lymphocytes # (A) 0.9 k/uL (1.0-4.8); Lymphocytes % (A) 10 %; Mean Platelet Volume 6.6; Monocytes # (A) 0.5 k/uL (0-1.0); Monocytes % (A) 6 %; Neutrophils # (A) 7.1 k/uL (1.3-7.7); Neutrophils % (A) 77 %; Platelet Count 383 k/uL (150-450); Poikilocytosis Slight; RDW 17.1 % (11.5-15.5)
[2020-05-17] MEDS: LEVOTHYROXINE 100 MCG TAB PO SCH (06:13)
[2020-05-17 07:09] LABS: Glucose,Whole Blood 134 mg/dL (75-99)
[2020-05-17] MEDS: FUROSEMIDE 10 MG/ML 4 ML VIAL IV SCH ×2 (07:15→16:42)
[2020-05-17] MEDS: IPRATROPIUM-ALBUTEROL 3 ML NEB INHALATION PRN ×3 (07:55→15:58)
[2020-05-17] MEDS: ATORVASTATIN 40 MG TAB PO SCH (08:30)
[2020-05-17] MEDS: ASPIRIN 81 MG PO SCH (08:30)
[2020-05-17] MEDS: PANTOPRAZOLE 40 MG TABLET PO SCH ×2 (08:30→16:42)
[2020-05-17] MEDS: METOPROLOL TARTRATE 25 MG TAB PO SCH (08:30)
[2020-05-17] MEDS: ESCITALOPRAM 20 MG TAB PO SCH (08:30)
[2020-05-17] MEDS: INSULIN ASPART (NovoLOG) 100 UNIT/ML VIAL SQ SCH ×4 (08:31→21:14)
[2020-05-17 09:08] LABS: African American GFR (CKD) 58.9 (60.0-200.0); Anion Gap 6.7 mmol/L (4.00-12.00); BUN/Creat Ratio 28.18 Ratio (12.00-20.00); Calcium 8.3 mg/dL (8.7-10.3); Carbon Dioxide 28.3 mmol/L (21.6-31.8); Non-African American GFR(CKD) 50.8 (60.0-200.0)
[2020-05-17] MEDS: SODIUM CHLORIDE 0.9% 1,000 ML IV SCH (09:39)
[2020-05-17] MEDS: HYDROcodone/APAP 7.5-325MG 1 EACH TAB PO PRN ×3 (09:44→22:41)
[2020-05-17 11:21] LABS: Glucose,Whole Blood 151 mg/dL (75-99)
[2020-05-17] MEDS: VANCOMYCIN 1,500 MG in SODIUM CHLORIDE 0.9% 250 ML IVPB SCH (12:33)
--- NOTE | 2020-05-17 15:21 | PN ---
PROGRESS NOTE DATE OF SERVICE: 05/17/2020. REASON FOR FOLLOWUP: 1. Urinary tract infection. 2. Left lower extremity cellulitis. INTERVAL HISTORY: The patient is currently afebrile. The patient is feeling better. Breathing is comfortable. Patient denies having any chest pain, no shortness of breath, no cough. No nausea, no abdominal pain. Still has significant swelling in the left leg. PHYSICAL EXAMINATION: Blood pressure 113/69, pulse of 55, temperature 98., she is 93% on 2 L nasal cannula. General description is an elderly female, up in the chair in no distress. RESPIRATORY SYSTEM: Unlabored breathing, clear to auscultation anteriorly. HEART: S1, S2, regular rate and rhythm. ABDOMEN: Soft. No tenderness. Left leg did have swelling and redness. This is open wound with drainage. LABS: Hemoglobin is 7.1, white count is 9.2, BUN of 31, creatinine 1.1. Blood culture so far negative. DIAGNOSTIC IMPRESSION AND PLAN: Patient with acute right lower extremity cellulitis. The patient did have diffuse swelling and redness, likely streptococcal disease, clinically responded very well to the IV cefazolin to continue with cefazolin and the patient showed clinical improvement with oral Keflex. Continue supportive care. MMODL / IJN: [id number] / MTDD
--- NOTE | 2020-05-17 16:36 | P.PN ---
Subjective Progress Note Date: 05/17/20 Patient was seen and examined. No acute events overnight. Patient reports slight improvement in the redness in her bilateral lower extremity. Continues to complain of lower extremity swelling left greater than right. She denies any dysuria or abdominal discomfort. She denies any chest pain, shortness of breath or palpitations. No nausea or vomiting. No fever or chills. Complains of vaginal irritation. Objective - Vital Signs Vital signs: Vital Signs Temp 97.5 F L 05/17/20 05:00 Pulse 65 05/17/20 16:10 Resp 16 05/17/20 11:45 BP 113/59 05/17/20 11:45 Pulse Ox 93 L 05/17/20 11:45 Intake & Output 05/16/20 05/17/20 05/17/20 18:59 06:59 18:59 Intake Total 600 190 Balance 600 190 Intake: Intake, IV Titration 600 190 Amount Sodium Chloride 0.9% 1, 600 190 000 ml @ 50 mls/hr IV . Q20H [facility] Rx#:[id number] Other: Voiding Method Bedside Commode Bedside Commode Bedside Commode # Voids 4 2 3 # Bowel Movements 1 - Exam General: [non toxic], [no distress], [appears at stated age] Derm: [warm], [dry] Head: [atraumatic], [normocephalic], [symmetric] Eyes: [EOMI], [no lid lag], [anicteric sclera] Mouth: [no lip lesion], [mucus membranes moist] Cardiovascular: [S1S2 reg], [no murmur], [positive posterior tibial pulse bilateral], Lungs: [CTA bilateral], [no rhonchi, no rales] , [no accessory muscle use] Abdominal: [soft], [ nontender to palpation], [no guarding], [no appreciable org anomegaly], suprapubic tenderness Ext: [no gross muscle atrophy], [2+ pitting edema left greater than right], [no contractures], erythema bilateral lower extremities Neuro: [no focal neuro deficits] Psych: [Alert], [oriented], [appropriate affect] - Labs CBC & Chem 7: 05/17/20 05:45 05/17/20 05:45 Labs: Abnormal Lab Results - Last 24 Hours (Table) 05/16/20 05/16/20 05/17/20 Range/Units 16:43 19:56 05:45 RBC 2.67 L (3.80-5.40) m/uL Hgb 7.1 L (11.4-16.0) gm/dL Hct 23.4 L (34.0-46.0) % MCHC 30.2 L (31.0-37.0) g/dL RDW 17.1 H (11.5-15.5) % Lymphocytes # 0.9 L (1.0-4.8) k/uL Sodium (135-145) mmol/L BUN (9.0-27.0) mg/dL Est GFR (CKD-EPI)AfAm (60.0-200.0) Est GFR (CKD-EPI)NonAf (60.0-200.0) BUN/Creatinine Ratio (12.00-20.00) Ratio Glucose (70-110) mg/dL POC Glucose (mg/dL) 159 H 185 H (75-99) mg/dL Calcium (8.7-10.3) mg/dL 05/17/20 05/17/20 05/17/20 Range/Units 05:45 07:04 11:19 RBC (3.80-5.40) m/uL Hgb (11.4-16.0) gm/dL Hct (34.0-46.0) % MCHC (31.0-37.0) g/dL RDW (11.5-15.5) % Lymphocytes # (1.0-4.8) k/uL Sodium 132 L (135-145) mmol/L BUN 31.0 H (9.0-27.0) mg/dL Est GFR (CKD-EPI)AfAm 58.9 L (60.0-200.0) Est GFR (CKD-EPI)NonAf 50.8 L (60.0-200.0) BUN/Creatinine Ratio 28.18 H (12.00-20.00) Ratio Glucose 126 H (70-110) mg/dL POC Glucose (mg/dL) 134 H 151 H (75-99) mg/dL Calcium 8.3 L (8.7-10.3) mg/dL Microbiology - Last 24 Hours (Table) 05/15/20 15:20 Urine Culture - Final Urine,Voided 05/15/20 15:20 Blood Culture - Preliminary Blood No Growth after 24 hours Assessment and Plan Assessment: UTI Vaginal irritation Cellulitis Anemia with history of GI telangiectasia COPD without exacerbation Hypothyroidism Diabetes mellitus Morbid obesity with BMI 34.4 Urinalysis shows large leukocyte esterase. Previous urine culture positive for Klebsiella pneumonia and enterococcus. Urine culture this admission negative. Plans: Continue Rocephin and vancomycin switched to Cefazolin. Follow urine culture. Follow blood culture. Follow ID recommendations. Plans: Diflucan 1 dose. Venous duplex ruled out DVT. Plans: Continue IV antibiotics as above. Elevate lower extremities. Hemoglobin 7.1. History of GI telangiectasia. Plans: Repeat CBC tomorrow morning. Continue to monitor. Plans: Started on DuoNeb as needed for shortness of breath and wheezing. Plans: Her Synthroid will be resumed. Plans: She'll be started on insulin sinus with regular Accu-Cheks and hypoglycemic precautions. Plans: Patient would benefit from structured weight loss program. [Patient admitted for UTI and cellulitis. Urine culture is negative. Discussed with Dr. Jaffe, minimal improvement in LE cellulitis, change Vancomycin to Cefazolin. Anticipated DC home in 1-2 days.]
[2020-05-17 17:17] LABS: Glucose,Whole Blood 147 mg/dL (75-99)
[2020-05-17] MEDS: MONTELUKAST 10 MG TAB PO SCH (21:09)
[2020-05-17] MEDS: ARIPiprazole 5 MG TAB PO SCH (21:09)
[2020-05-17] MEDS: traZODone HCL 100 MG TAB PO PRN (21:09)
[2020-05-17 21:28] LABS: Glucose,Whole Blood 193 mg/dL (75-99)
[2020-05-17 23:09] VITALS: RESP 18
[2020-05-18] MEDS: LEVOTHYROXINE 100 MCG TAB PO SCH (05:49)
[2020-05-18] MEDS: FUROSEMIDE 10 MG/ML 4 ML VIAL IV SCH (05:49)
[2020-05-18] MEDS: SODIUM CHLORIDE 0.9% 1,000 ML IV SCH ×2 (05:50→08:01)
[2020-05-18 06:53] LABS: Glucose,Whole Blood 128 mg/dL (75-99)
[2020-05-18] MEDS: IPRATROPIUM-ALBUTEROL 3 ML NEB INHALATION PRN ×2 (07:27→11:20)
[2020-05-18] MEDS: INSULIN ASPART (NovoLOG) 100 UNIT/ML VIAL SQ SCH ×2 (07:31→13:06)
[2020-05-18] MEDS: PANTOPRAZOLE 40 MG TABLET PO SCH (07:55)
[2020-05-18] MEDS: ESCITALOPRAM 20 MG TAB PO SCH (07:55)
[2020-05-18] MEDS: ATORVASTATIN 40 MG TAB PO SCH (07:55)
[2020-05-18] MEDS: ASPIRIN 81 MG PO SCH (07:56)
[2020-05-18] MEDS: HYDROcodone/APAP 7.5-325MG 1 EACH TAB PO PRN (08:00)
[2020-05-18 11:49] LABS: Glucose,Whole Blood 173 mg/dL (75-99)
[2020-05-18 12:17] VITALS: BP 110/63; PULSE 69; TEMP 98
--- NOTE | 2020-05-18 13:23 | P.DS ---
Providers Date of admission: 05/15/20 17:35 Expected date of discharge: 05/18/20 Attending physician: Valerie Parisi MD Consults: 05/15/20 17:21 Consult Physician Routine Consulting Provider: Mayco Jaffe Consult Reason/Comments: cellulitis, uti Do you want consulting provider notified?: Yes Primary care physician: Connor Carreon Hospital Course: Discharge Diagnosis: UTI Vaginal irritation Cellulitis Anemia with history of GI telangiectasia COPD without exacerbation Hypothyroidism Diabetes mellitus Morbid obesity with BMI 34.4 Hospital Course: Patient is a 69-year-old female with a past medical history of diabetes mellitus and recurrent lower extremity cellulitis, COPD, hypertension, dyslipidemia who presented to the ED with worsening symptoms since discharge. She was discharged on 05/09/2020 on antibiotics for her UTI and cellulitis. Patient states that she took her course of Bactrim. Patient states that her lower extremity swelling was worsening and she is also having dysuria which is what prompted her to come back to the ED. Patient was admitted for failing outpatient antibiotics. Infectious disease was consulted. Patient was initially started on IV vancomycin. Her lower extremity cellulitis was improving. Her antibiotics were then switched to IV cefazolin. Her cellulitis continued to improve. ID then recommended to discharge the patient on Keflex for 10 more days. Patient's urine culture came back negative. On the day of discharge patient denied any dysuria. Patient was looking forward to going home. She refused to go to inpatient rehab. clinical services manager arranged to resume her home care. 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 Patient Condition at Discharge: Good Plan - Discharge Summary Discharge Rx Participant: No New Discharge Prescriptions: New Cephalexin [Keflex] 500 mg PO Q8HR 10 Days #30 cap Continue Zafirlukast [Accolate] 20 mg PO BID metFORMIN HCL [Glucophage] 1,000 mg PO BID-W/MEALS ARIPiprazole [Abilify] 5 mg PO HS Atorvastatin [Lipitor] 40 mg PO DAILY #30 tab Cholecalciferol [Vitamin D3 (25 Mcg = 1000 Iu)] 1,000 unit PO DAILY Levothyroxine Sodium [Synthroid] 200 mcg PO DAILY Albuterol Sulfate [Ventolin HFA] 1 - 2 puff INHALATION RT-Q6H PRN PRN Reason: Shortness Of Breath Escitalopram [Lexapro] 20 mg PO DAILY Ipratropium-Albuterol Nebulize [Duoneb 0.5 mg-3 mg/3 ml Soln] 3 ml INHALATION RT-Q2H PRN ml PRN Reason: Shortness Of Breath Or Wheezing Formoterol Fumarate [Perforomist] 20 mcg INHALATION RT-BID nebu Pantoprazole Sodium [Protonix] 40 mg PO BID #60 tablet. Budesonide [Pulmicort] 1 mg INHALATION RT-BID ml HYDROcodone/APAP 7.5-325MG [[place] 7.5-325] 1 tab PO Q6H PRN #12 tab PRN Reason: Pain Furosemide [Lasix] 40 mg PO DAILY Magnesium Oxide [Mag-Ox] 400 mg PO DAILY #30 tablet Aspirin EC [Ecotrin Low Dose] 81 mg PO DAILY traZODone HCL 100 mg PO HS PRN PRN Reason: Sedation Discontinued Metoprolol Tartrate [Lopressor] 25 mg PO TID #90 tab Discharge Medication List Zafirlukast [Accolate] 20 mg PO BID 02/06/14 [History] ARIPiprazole [Abilify] 5 mg PO HS 02/07/18 [History] metFORMIN HCL [Glucophage] 1,000 mg PO BID-W/MEALS 02/07/18 [History] Atorvastatin [Lipitor] 40 mg PO DAILY #30 tab 09/10/18 [Rx] Cholecalciferol [Vitamin D3 (25 Mcg = 1000 Iu)] 1,000 unit PO DAILY 09/03/19 [History] Levothyroxine Sodium [Synthroid] 200 mcg PO DAILY 09/03/19 [History] Albuterol Sulfate [Ventolin HFA] 1 - 2 puff INHALATION RT-Q6H PRN 03/11/20 [History] Escitalopram [Lexapro] 20 mg PO DAILY 03/11/20 [History] Budesonide [Pulmicort] 1 mg INHALATION RT-BID ml 03/27/20 [Rx] Formoterol Fumarate [Perforomist] 20 mcg INHALATION RT-BID nebu 03/27/20 [Rx] HYDROcodone/APAP 7.5-325MG [[place] 7.5-325] 1 tab PO Q6H PRN #12 tab 03/27/20 [Rx] Ipratropium-Albuterol Nebulize [Duoneb 0.5 mg-3 mg/3 ml Soln] 3 ml INHALATION RT-Q2H PRN ml 03/27/20 [Rx] Pantoprazole Sodium [Protonix] 40 mg PO BID #60 tablet.dr 03/27/20 [Rx] Furosemide [Lasix] 40 mg PO DAILY 04/27/20 [History] Magnesium Oxide [Mag-Ox] 400 mg PO DAILY #30 tablet 04/27/20 [Rx] Aspirin EC [Ecotrin Low Dose] 81 mg PO DAILY 05/15/20 [History] traZODone HCL 100 mg PO HS PRN 05/15/20 [History] Cephalexin [Keflex] 500 mg PO Q8HR 10 Days #30 cap 05/18/20 [Rx] Follow up App[facility]ment(s[facility]Ref[facility] 1 Week Connor Carreon [Primary Care Provider] - 1-2 days Discharge Disposition: HOME WITH HOME HEALTH SERVICES
--- NOTE | 2020-05-18 14:36 | PN ---
PROGRESS NOTE DATE OF SERVICE: 05/18/2020 REASON FOR FOLLOWUP: Left lower extremity cellulitis. INTERVAL HISTORY: The patient is currently afebrile. The patient is feeling better. Breathing comfortably. The patient denies having any chest pain. No shortness of breath or cough. Overall pain and discomfort to the left leg has improved. The patient wants to go home. PHYSICAL EXAMINATION: Blood pressure 110/63 with a pulse of 69, temperature 98, she is 93% on 3 L nasal cannula. General description is an elderly female, lying in bed in no distress. RESPIRATORY SYSTEM: Unlabored breathing, clear to auscultation anteriorly. HEART: S1, S2. Regular rate and rhythm. ABDOMEN: Soft, no tenderness. Left leg swelling and redness has decreased, no drainage on the dressing. LABS: No new labs have been obtained today. DIAGNOSTIC IMPRESSION AND PLAN: Patient with acute left lower extremity cellulitis in this patient who did have diffuse swelling and redness, seemed to have shown clinical improvement with cefazolin. Plan to finish therapy with oral Keflex 500 mg 3 times a day for another 10 days. Local care with an S wrap to keep the swelling down and close outpatient followup. MMODL / IJN: [id number] /
== END 2020-05-18 15:14 | disposition home health service (06) | DRG 603 ==
LOC: EC 14:31 → 6NMEDSUR 17:35
PROVIDERS: ADMIT Family Medicine; ATTEND Family Medicine
DX: L03.116 Cellulitis of left lower limb (principal); N39.0 Urinary tract infection, site not specified; E03.9 Hypothyroidism, unspecified; E11.9 Type 2 diabetes mellitus without complications; E66.01 Morbid (severe) obesity due to excess calories; Z68.34 Body mass index [BMI] 34.0-34.9, adult; E78.5 Hyperlipidemia, unspecified; F17.210 Nicotine dependence, cigarettes, uncomplicated; F32.9 Major depressive disorder, single episode, unspecified; F41.9 Anxiety disorder, unspecified; I10 Essential (primary) hypertension; J44.9 Chronic obstructive pulmonary disease, unspecified; Z99.81 Dependence on supplemental oxygen; Z87.19 Personal history of other diseases of the digestive system; N89.8 Other specified noninflammatory disorders of vagina; Z91.81 History of falling; Z87.442 Personal history of urinary calculi; Z87.440 Personal history of urinary (tract) infections; M19.90 Unspecified osteoarthritis, unspecified site; M51.36 Other intervertebral disc degeneration, lumbar region; Z98.51 Tubal ligation status; Z90.49 Acquired absence of other specified parts of digestive tract; Z82.5 Family history of asthma and other chronic lower respiratory diseases; Z79.899 Other long term (current) drug therapy; Z79.82 Long term (current) use of aspirin; Z79.84 Long term (current) use of oral hypoglycemic drugs; Z79.890 Hormone replacement therapy; Z80.8 Family history of malignant neoplasm of other organs or systems; Z88.1 Allergy status to other antibiotic agents; Z88.5 Allergy status to narcotic agent; Z88.0 Allergy status to penicillin; Z91.040 Latex allergy status; D64.9 Anemia, unspecified
CPT/HCPCS: 36415; 71046; 80048; 80053; 81001; 83605; 85025; 85610; 85730; 86850; 86900; 86901; 87040; 87086; 93005; 93970; 94640; 94760; 96365; 96368; 99284

== ENCOUNTER 2020-05-28 19:32 | Inpatient (IN) | payer MEDICARE, OTHER ==
--- NOTE | 2020-05-28 19:38 | ED ---
Recheck HPI - General Stated Complaint: Low Hemoglobin Time Seen by Provider: 05/28/20 19:36 Source: RN notes reviewed, old records reviewed Limitations: no limitations - History of Present Illness Initial Comments: This is a 70-year-old female DF for evaluation patient Dese for evaluation regards to multiple complaints of shortness of breath, found to have significant anemia and an outpatient basis unsure cause. Patient sent in for evaluation of anemia. Patient self admits to severe weakness severe shortness of breath especially with activity MD Complaint: abnormal lab (Anemia) -: unknown Returns Today for: Called Because of Abnormal Lab/Test Symptoms Since Prior Visit: no new symptoms (Significant increasing weakness and shortness of breath) Context: called for abnormal lab result Associated Symptoms: shortness of breath, malaise - Related Data Home Medications Medication Instructions Recorded Confirmed Zafirlukast [Accolate] 20 mg PO BID 02/06/14 05/15/20 ARIPiprazole [Abilify] 5 mg PO HS 02/07/18 05/15/20 metFORMIN HCL [Glucophage] 1,000 mg PO BID-W/MEALS 02/07/18 05/15/20 Cholecalciferol [Vitamin D3 (25 1,000 unit PO DAILY 09/03/19 05/15/20 Mcg = 1000 Iu)] Levothyroxine Sodium [Synthroid] 200 mcg PO DAILY 09/03/19 05/15/20 Albuterol Sulfate [Ventolin HFA] 1 - 2 puff INHALATION RT-Q6H PRN 03/11/20 05/15/20 Escitalopram [Lexapro] 20 mg PO DAILY 03/11/20 05/15/20 Furosemide [Lasix] 40 mg PO DAILY 04/27/20 05/15/20 Aspirin EC [Ecotrin Low Dose] 81 mg PO DAILY 05/15/20 05/15/20 traZODone HCL 100 mg PO HS PRN 05/15/20 05/15/20 Previous Rx's Medication Instructions Recorded Atorvastatin [Lipitor] 40 mg PO DAILY #30 tab 09/10/18 Budesonide [Pulmicort] 1 mg INHALATION RT-BID ml 03/27/20 Formoterol Fumarate [Perforomist] 20 mcg INHALATION RT-BID nebu 03/27/20 HYDROcodone/APAP 7.5-325MG [[place] 1 tab PO Q6H PRN #12 tab 03/27/20 7.5-325] Ipratropium-Albuterol Nebulize 3 ml INHALATION RT-Q2H PRN ml 03/27/20 [Duoneb 0.5 mg-3 mg/3 ml Soln] Pantoprazole Sodium [Protonix] 40 mg PO BID #60 tablet. 03/27/20 Magnesium Oxide [Mag-Ox] 400 mg PO DAILY #30 tablet 04/27/20 Cephalexin [Keflex] 500 mg PO Q8HR 10 Days #30 cap 05/18/20 Allergies Allergy/AdvReac Type Severity Reaction Status Date / Time adhesive Allergy Rash/Hives Verified 05/28/20 19:42 ciprofloxacin [From Cipro] Allergy Rash/Hives Verified 05/28/20 19:42 ciprofloxacin HCl Allergy Rash/Hives Verified 05/28/20 19:42 [From Cipro] latex Allergy Rash/Hives Verified 05/28/20 19:42 nitrofurantoin Allergy Rash/Hives Verified 05/28/20 19:42 [From Macrobid] nitrofurantoin Allergy Rash/Hives Verified 05/28/20 19:42 macrocrystalline [From Macrobid] Penicillins Allergy Rash/Hives Verified 05/28/20 19:42 propoxyphene HCl Allergy Rash/Hives Verified 05/28/20 19:42 [From Darvon] propoxyphene napsylate Allergy Unknown Verified 05/28/20 19:42 [From Darvocet-N] Review of Systems ROS Statement: Those systems with pertinent positive or pertinent negative responses have been documented in the HPI. ROS Other: All systems not noted in ROS Statement are negative. Past Medical History Past Medical History: Asthma, Chest Pain / Angina, COPD, Diabetes Mellitus, Hyperlipidemia, Hypertension, Osteoarthritis (OA), Respiratory Disorder, Skin Disorder, Thyroid Disorder Additional Past Medical History / Comment(s): Obesity (BMI 35) COPD, asthma, diabetes , depression, 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 The patient is also a smoker. The patient has chronic back pain. History of Any Multi-Drug Resistant Organisms: None Reported Past Surgical History: Appendectomy, Section, Cholecystectomy, Orthopedic Surgery, Tubal Ligation Additional Past Surgical History / Comment(s): LASER SX JETHRO EYES FOR GLAUCOMA. RT KNEE ARTHROSCOPY. UNDERWENT PERCUTANEOUS NEPHROSTOLITHOTOMY Past Anesthesia/Blood Transfusion Reactions: No Reported Reaction Past Psychological History: Anxiety, Depression Additional Psychological History / Comment(s): pt stated maintained by meds. and lives with the and adult son. 2 adult children. 2 dogs and 6 cats in the home, they rescue. Ongoing tobacco use but denied alcohol use or recreational drug use. Does not work outside of the home. No experience. No travel history Smoking Status: Former smoker Past Alcohol Use History: None Reported Additional Past Alcohol Use History / Comment(s): Patient is an active smoker one pack per day and started smoking in 1968. She denies any marijuana, illicit drug use or alcohol use. She is and lives at home with her . There are 2 dogs and 2 cats in the home. No service and no travel history. Past Drug Use History: None Reported - Past Family History Mother Additional Family Medical History / Comment(s): emphysema, heart valve problems, in her slepp. Brother(s) Family Medical History: Cancer Additional Family Medical History / Comment(s): from oral cancer Father Brother(s) Family Medical History: Cancer Additional Family Medical History / Comment(s): heart disease General Exam General appearance: alert, lethargic, in distress Head exam: Present: atraumatic, normocephalic, normal inspection Eye exam: Present: normal appearance, PERRL, EOMI. Absent: scleral icterus, conjunctival injection, periorbital swelling ENT exam: Present: normal exam, mucous membranes moist Neck exam: Present: normal inspection. Absent: tenderness, meningismus, lymphadenopathy Respiratory exam: Present: normal lung sounds bilaterally, wheezes. Absent: respiratory distress, rales, rhonchi, stridor Cardiovascular Exam: Present: regular rate, normal rhythm, normal heart sounds. Absent: systolic murmur, diastolic murmur, rubs, gallop, clicks GI/Abdominal exam: Present: soft, normal bowel sounds. Absent: distended, tenderness, guarding, rebound, rigid Extremities exam: Present: normal inspection, full ROM, normal capillary refill. Absent: tenderness, pedal edema, joint swelling, calf tenderness Back exam: Present: normal inspection Neurological exam: Present: alert, oriented X3, CN II-XII intact Psychiatric exam: Present: normal affect, normal mood Skin exam: Present: warm, dry, intact, normal color. Absent: rash Course Vital Signs 05/28/20 05/28/20 19:36 20:01 Temperature 98.0 F Pulse Rate 94 Respiratory 24 24 Rate Blood Pressure 138/52 O2 Sat by Pulse 93 L Oximetry - Reevaluation(s) Reevaluation #1: 05/28/20 20:58 Record is reviewed Reevaluation #2: 05/28/20 20:59 Patient informed of findings, questions answered, will be transfused and agrees - Consultations Consultation #1: Spoke with Valerie [place] agrees to admit patient Medical Decision Making - Lab Data Result diagrams: 05/28/20 19:47 05/28/20 19:47 Lab Results 05/28/20 05/28/20 05/28/20 Range/Units 19:47 19:47 19:47 WBC 10.3 (3.8-10.6) k/uL RBC 2.30 L (3.80-5.40) m/uL Hgb 6.1 L* (11.4-16.0) gm/dL Hct 20.2 L (34.0-46.0) % MCV 87.7 (80.0-100.0) fL MCH 26.3 (25.0-35.0) pg MCHC 30.0 L (31.0-37.0) g/dL RDW 17.8 H (11.5-15.5) % Plt Count 445 (150-450) k/uL Neutrophils % 78 % Lymphocytes % 9 % Monocytes % 6 % Eosinophils % 5 % Basophils % 1 % Neutrophils # 8.0 H (1.3-7.7) k/uL Lymphocytes # 0.9 L (1.0-4.8) k/uL Monocytes # 0.6 (0-1.0) k/uL Eosinophils # 0.5 (0-0.7) k/uL Basophils # 0.1 (0-0.2) k/uL Hypochromasia Marked Poikilocytosis Slight Anisocytosis Slight PT 10.8 (9.0-12.0) sec INR 1.1 (<1.2) APTT 22.2 (22.0-30.0) sec Sodium 138 (137-145) mmol/L Potassium 4.7 (3.5-5.1) mmol/L Chloride 97 L (98-107) mmol/L Carbon Dioxide 33 H (22-30) mmol/L Anion Gap 8 mmol/L BUN 38 H (7-17) mg/dL Creatinine 0.79 (0.52-1.04) mg/dL Est GFR (CKD-EPI)AfAm 88 (>60 ml/min/1.73 sqM) Est GFR (CKD-EPI)NonAf 76 (>60 ml/min/1.73 sqM) Glucose 183 H (74-99) mg/dL Calcium 8.9 (8.4-10.2) mg/dL Phosphorus 4.0 (2.5-4.5) mg/dL Magnesium 1.6 (1.6-2.3) mg/dL Total Bilirubin 0.3 (0.2-1.3) mg/dL AST 22 (14-36) U/L ALT 19 (4-34) U/L Alkaline Phosphatase 121 (38-126) U/L Troponin I (0.000-0.034) ng/mL Total Protein 6.2 L (6.3-8.2) g/dL Albumin 3.3 L (3.5-5.0) g/dL Blood Type Blood Type Recheck Bld Type Recheck Status Antibody Screen Crossmatch Spec Expiration Date 05/28/20 05/28/20 Range/Units 19:47 19:47 WBC (3.8-10.6) k/uL RBC (3.80-5.40) m/uL Hgb (11.4-16.0) gm/dL Hct (34.0-46.0) % MCV (80.0-100.0) fL MCH (25.0-35.0) pg MCHC (31.0-37.0) g/dL RDW (11.5-15.5) % Plt Count (150-450) k/uL Neutrophils % % Lymphocytes % % Monocytes % % Eosinophils % % Basophils % % Neutrophils # (1.3-7.7) k/uL Lymphocytes # (1.0-4.8) k/uL Monocytes # (0-1.0) k/uL Eosinophils # (0-0.7) k/uL Basophils # (0-0.2) k/uL Hypochromasia Poikilocytosis Anisocytosis PT (9.0-12.0) sec INR (<1.2) APTT (22.0-30.0) sec Sodium (137-145) mmol/L Potassium (3.5-5.1) mmol/L Chloride (98-107) mmol/L Carbon Dioxide (22-30) mmol/L Anion Gap mmol/L BUN (7-17) mg/dL Creatinine (0.52-1.04) mg/dL Est GFR (CKD-EPI)AfAm (>60 ml/min/1.73 sqM) Est GFR (CKD-EPI)NonAf (>60 ml/min/1.73 sqM) Glucose (74-99) mg/dL Calcium (8.4-10.2) mg/dL Phosphorus (2.5-4.5) mg/dL Magnesium (1.6-2.3) mg/dL Total Bilirubin (0.2-1.3) mg/dL AST (14-36) U/L ALT (4-34) U/L Alkaline Phosphatase (38-126) U/L Troponin I <0.012 (0.000-0.034) ng/mL Total Protein (6.3-8.2) g/dL Albumin (3.5-5.0) g/dL Blood Type AB Positive Blood Type Recheck AB Pos Bld Type Recheck Status No Antibody Screen NEGATIVE Crossmatch See Detail Spec Expiration Date 05/31/2020 - 5331 - EKG Data -: EKG Interpreted by Me (EKG shows sinus rhythm 89 ND 150 QRS 88 QTc 445) - Radiology Data Radiology results: report reviewed (Chest x-rays negative for acute disease), image reviewed Critical Care Time Critical Care Time: Yes Total Critical Care Time: 31 Disposition Clinical Impression: GI bleed, Exertional dyspnea, Dehydration, Dyspnea, Anemia, Acute exacerbation of chronic obstructive pulmonary disease (COPD) Disposition: ADMITTED IP TO THIS [facility] Condition: Serious Is patient prescribed a controlled substance at d/c from ED?: No Referrals: Connor Carreon [Primary Care Provider] - 1-2 days
[2020-05-28 20:05] LABS: Anisocytosis Slight; Basophils # (A) 0.1 k/uL (0-0.2); Basophils % (A) 1 %; Eosinophils # (A) 0.5 k/uL (0-0.7); Eosinophils % (A) 5 %; HCT 20.2 % (34.0-46.0); Hypochromasia Marked; Lymphocytes # (A) 0.9 k/uL (1.0-4.8); Lymphocytes % (A) 9 %; MCH 26.3 pg (25.0-35.0); MCV 87.7 fL (80.0-100.0); Mean Platelet Volume 7.9; Monocytes # (A) 0.6 k/uL (0-1.0); Monocytes % (A) 6 %; Neutrophils % (A) 78 %; Platelet Count 445 k/uL (150-450); Poikilocytosis Slight; RDW 17.8 % (11.5-15.5); WBC 10.3 k/uL (3.8-10.6)
[2020-05-28 20:08] LABS: HGB 6.1 gm/dL (11.4-16.0)
[2020-05-28 20:14] LABS: Albumin 3.3 g/dL (3.5-5.0); Calcium 8.9 mg/dL (8.4-10.2); Magnesium 1.6 mg/dL (1.6-2.3); Potassium 4.7 mmol/L (3.5-5.1); Total Bilirubin 0.3 mg/dL (0.2-1.3); Total Protein 6.2 g/dL (6.3-8.2)
[2020-05-28 20:20] LABS: INR 1.1 (<1.2); Partial Thromboplastin Time 22.2 sec (22.0-30.0); Prothrombin Time 10.8 sec (9.0-12.0)
[2020-05-28] MEDS ORDERED: methylPREDNISolone SOD SUCCI 125 MG/2 ML VIAL IV STA (20:52)
[2020-05-28] MEDS ORDERED: ALBUTEROL NEBULIZED 2.5 MG/3 ML INHALATION STA (20:52)
[2020-05-28] MEDS ORDERED: IPRATROPIUM 0.5 MG/2.5 ML NEBU INHALATION STA (20:52)
[2020-05-28] MEDS: SODIUM CHLORIDE 0.9% 1,000 ML IV SCH (21:08)
--- NOTE | 2020-05-28 21:54 | XR ---
EXAMINATION TYPE: XR chest 2V DATE OF EXAM: 05/28/2020 COMPARISON: 05/15/2020 HISTORY: Short of breath TECHNIQUE: FINDINGS: There is coarsening of the pulmonary interstitial markings. Heart size is normal. Thoracic aorta is atheromatous. There is no definite pleural effusion. Bony thorax is intact. IMPRESSION: Coarse lung markings are increased compared to old exam. No obvious heart failure. Heart size is normal.
--- NOTE | 2020-05-28 23:21 | P.HPIM ---
History of Present Illness H&P Date: 05/28/20 Patient is a 70-year-old female with a PMH of type II DM, COPD, hypertension, hyperlipidemia, recurrent episodes of bilateral lower extremity cellulitis who presented to the ED after routine blood work and found her to be severely anemic (hemoglobin 5.7). The patient notes that she had been feeling more fatigued over the past few days, though denied noticing any black or bright red bloody stools. She denied noticing any additional bleeding as well. The patient reports that she was seen by her primary care physician 2 days ago at which time she also had a mild left lower family cellulitis which was marked by the physician at that time. She also reported a mild intermittent diffuse abdominal pain, nonradiating, with no clear alleviating or exacerbating features, lasting for a few minutes at a time and resolving spontaneously. She denied any additional complaints. Denied chest pain, nausea, vomiting, diarrhea. Denied dizziness, headaches, weakness, or numbness. In the emergency room an EKG revealed sinus rhythm at 89 bpm with a left anterior fascicular block as reviewed by me. Chest x-ray was unremarkable. Laboratory evaluation revealed a hemoglobin of 6.1, normal RBC count 10.3, platelets 445, sodium 138, potassium 4.7, chloride 97, CO2 33, BUN 38, creatinine 0.79, troponin less than 0.012. Of note, the patient has undergone multiple recent endoscopies and colonoscopies for GI bleeding which revealed duodenal ulcers, angiodysplasia in the second part of the duodenum and and dysphagia in the cecum. Review of Systems Pertinent positives and negatives as discussed in HPI, a complete review of systems was performed and all other systems are negative. Past Medical History Past Medical History: Asthma, Chest Pain / Angina, COPD, Diabetes Mellitus, Hyperlipidemia, Hypertension, Osteoarthritis (OA), Respiratory Disorder, Skin Disorder, Thyroid Disorder Additional Past Medical History / Comment(s): Obesity (BMI 35) COPD, asthma, diabetes , depression, 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 The patient is also a smoker. The patient has chronic back pain. History of Any Multi-Drug Resistant Organisms: None Reported Past Surgical History: Appendectomy, Section, Cholecystectomy, Orthopedic Surgery, Tubal Ligation Additional Past Surgical History / Comment(s): LASER SX JETHRO EYES FOR GLAUCOMA. RT KNEE ARTHROSCOPY. UNDERWENT PERCUTANEOUS NEPHROSTOLITHOTOMY Past Anesthesia/Blood Transfusion Reactions: No Reported Reaction Past Psychological History: Anxiety, Depression Additional Psychological History / Comment(s): pt stated maintained by meds. and lives with the and adult son. 2 adult children. 2 dogs and 6 cats in the home, they rescue. Ongoing tobacco use but denied alcohol use or recreational drug use. Does not work outside of the home. No experience. No travel history Smoking Status: Former smoker Past Alcohol Use History: None Reported Additional Past Alcohol Use History / Comment(s): Patient is an active smoker one pack per day and started smoking in 1968. She denies any marijuana, illicit drug use or alcohol use. She is and lives at home with her . There are 2 dogs and 2 cats in the home. No service and no travel history. Past Drug Use History: None Reported - Past Family History Mother Additional Family Medical History / Comment(s): emphysema, heart valve problems, in her slepp. Brother(s) Family Medical History: Cancer Additional Family Medical History / Comment(s): from oral cancer Father Brother(s) Family Medical History: Cancer Additional Family Medical History / Comment(s): heart disease Medications and Allergies Home Medications Medication Instructions Recorded Confirmed Type Zafirlukast [Accolate] 20 mg PO BID 02/06/14 05/28/20 History ARIPiprazole [Abilify] 5 mg PO HS 02/07/18 05/28/20 History metFORMIN HCL [Glucophage] 1,000 mg PO BID-W/MEALS 02/07/18 05/28/20 History Atorvastatin [Lipitor] 40 mg PO DAILY #30 tab 09/10/18 05/28/20 Rx Cholecalciferol [Vitamin D3 (25 1,000 unit PO DAILY 09/03/19 05/28/20 History Mcg = 1000 Iu)] Levothyroxine Sodium [Synthroid] 200 mcg PO DAILY 09/03/19 05/28/20 History Albuterol Sulfate [Ventolin HFA] 1 - 2 puff INHALATION RT-Q6H PRN 03/11/20 05/28/20 History Escitalopram [Lexapro] 20 mg PO DAILY 03/11/20 05/28/20 History Budesonide [Pulmicort] 1 mg INHALATION RT-BID ml 03/27/20 05/28/20 Rx Formoterol Fumarate [Perforomist] 20 mcg INHALATION RT-BID nebu 03/27/20 05/28/20 Rx HYDROcodone/APAP 7.5-325MG [[place] 1 tab PO Q6H PRN #12 tab 03/27/20 05/28/20 Rx 7.5-325] Ipratropium-Albuterol Nebulize 3 ml INHALATION RT-Q2H PRN ml 03/27/20 05/28/20 Rx [Duoneb 0.5 mg-3 mg/3 ml Soln] Pantoprazole Sodium [Protonix] 40 mg PO BID #60 tablet. 03/27/20 05/28/20 Rx Furosemide [Lasix] 40 mg PO DAILY 04/27/20 05/28/20 History Magnesium Oxide [Mag-Ox] 400 mg PO DAILY #30 tablet 04/27/20 05/28/20 Rx Aspirin EC [Ecotrin Low Dose] 81 mg PO DAILY 05/15/20 05/28/20 History traZODone HCL 100 mg PO HS PRN 05/15/20 05/28/20 History Lisinopril [Zestril] 10 mg PO DAILY 05/28/20 05/28/20 History Allergies Allergy/AdvReac Type Severity Reaction Status Date / Time adhesive Allergy Rash/Hives Verified 05/28/20 19:42 ciprofloxacin [From Cipro] Allergy Rash/Hives Verified 05/28/20 19:42 ciprofloxacin HCl Allergy Rash/Hives Verified 05/28/20 19:42 [From Cipro] latex Allergy Rash/Hives Verified 05/28/20 19:42 nitrofurantoin Allergy Rash/Hives Verified 05/28/20 19:42 [From Macrobid] nitrofurantoin Allergy Rash/Hives Verified 05/28/20 19:42 macrocrystalline [From Macrobid] Penicillins Allergy Rash/Hives Verified 05/28/20 19:42 propoxyphene HCl Allergy Rash/Hives Verified 05/28/20 19:42 [From Darvon] propoxyphene napsylate Allergy Unknown Verified 10/09/20 19:42 [From Darvocet-N] Physical Exam Vitals: Vital Signs Temp Pulse Resp BP Pulse Ox 05/28/20 22:10 97.9 F 72 22 144/61 05/28/20 21:55 97.6 F 79 22 145/48 96 05/28/20 21:52 97.6 F 74 22 151/55 05/28/20 21:45 97.6 F 80 22 154/50 95 05/28/20 21:24 80 05/28/20 21:11 79 05/28/20 20:01 24 05/28/20 19:36 98.0 F 94 24 138/52 93 L Intake and Output 05/28/20 05/28/20 05/28/20 06:59 14:59 22:59 Intake Total 0 Balance 0 Intake: Blood Product 0 Rc As-1 Unit 0 [id number] Other: Weight 78.471 kg General: Elderly female, non toxic, no distress, appears at stated age, obese Derm: Left lower extremity area of chronic venous stasis changes with some erythema and warmth with pen outline, warm, dry Head: atraumatic, normocephalic, symmetric Eyes: EOMI, no lid lag, anicteric sclera, pupils equal round reactive to light ENT: Nose and ears atraumatic, no thrush, no pharyngeal erythema Neck: No thyromegaly, no cervical lymphadenopathy, trachea midline, supple Mouth: no lip lesion, mucus membranes moist Cardiovascular: S1S2 reg, systolic murmur appreciated, positive posterior tibial pulse bilateral, 1+ bilateral lower extremity pitting edema, capillary refill less than 2 seconds Lungs: Scattered bilateral mild rhonchi, no rales , no accessory muscle use Abdominal: soft, nontender to palpation, no guarding, no appreciable organomegaly, normal bowel sounds Ext: no gross muscle atrophy, muscle strength 3-4 out of 5 in all 4 extremities grossly, no contractures, Neuro: CN II-XI grossly intact, light touch intact all 4 extremities, finger to nose within normal limits, Psych: Alert, oriented, appropriate affect Results CBC & Chem 7: 05/28/20 19:47 05/28/20 19:47 Labs: Abnormal Lab Results - Last 24 Hours (Table) 05/28/20 05/28/20 05/28/20 Range/Units 19:47 19:47 19:47 RBC 2.30 L (3.80-5.40) m/uL Hgb 6.1 L* (11.4-16.0) gm/dL Hct 20.2 L (34.0-46.0) % MCHC 30.0 L (31.0-37.0) g/dL RDW 17.8 H (11.5-15.5) % Neutrophils # 8.0 H (1.3-7.7) k/uL Lymphocytes # 0.9 L (1.0-4.8) k/uL Chloride 97 L (98-107) mmol/L Carbon Dioxide 33 H (22-30) mmol/L BUN 38 H (7-17) mg/dL Glucose 183 H (74-99) mg/dL Total Protein 6.2 L (6.3-8.2) g/dL Albumin 3.3 L (3.5-5.0) g/dL Crossmatch See Detail Assessment and Plan Plan: Severe anemia -Monitor CBC -GI consult -Nothing by mouth after midnight -Protonix IV every 12 hourly -2 units of PRBCs ordered LLE Cellulitis -Patient notes taking Keflex q8h since 05/18 -Continue for 2 more doses to complete course Chronic conditions: Type II DM, hypertension, hypothyroidism, COPD, hyp erlipidemia -Lispro insulin sliding scale blood glucose monitoring -Levemir 10 units daily at bedtime -Continue with home medications DVT prophylaxis -IPCDs The patient is admitted with an anticipated greater than than 2 midnight stay for evaluation of severe anemia. CODE STATUS: Code Discussed with: Patient, Anticipated discharge date: 2-[address]: SNF A total of 35 minutes was spent on the care of this complex patient more than 50% of the time was spent in counseling and care coordination.
[2020-05-28] MEDS ORDERED: PANTOPRAZOLE 40 MG/10 ML VIAL IVP SCH (23:30)
[2020-05-29] MEDS ORDERED: methylPREDNISolone SOD SUCCI 125 MG/2 ML VIAL IV SCH
[2020-05-29] MEDS: CEPHALEXIN 500 MG CAP PO SCH ×2 (00:20→08:39)
[2020-05-29 00:30] LABS: Glucose,Whole Blood 236 mg/dL (75-99)
[2020-05-29] MEDS: LEVOTHYROXINE 100 MCG TAB PO SCH (05:52)
[2020-05-29 07:07] LABS: Glucose,Whole Blood 290 mg/dL (75-99)
[2020-05-29 07:18] LABS: Anisocytosis Slight; Basophils % (A) 0 %; Eosinophils # (A) 0.1 k/uL (0-0.7); Eosinophils % (A) 1 %; HCT 25.9 % (34.0-46.0); Hypochromasia Marked; Lymphocytes # (A) 0.4 k/uL (1.0-4.8); Lymphocytes % (A) 4 %; MCH 27.8 pg (25.0-35.0); MCHC 30.8 g/dL (31.0-37.0); MCV 90.3 fL (80.0-100.0); Mean Platelet Volume 7.2; Monocytes # (A) 0.3 k/uL (0-1.0); Monocytes % (A) 2 %; Neutrophils # (A) 11.2 k/uL (1.3-7.7); Neutrophils % (A) 93 %; Platelet Count 413 k/uL (150-450); Poikilocytosis Slight; RBC 2.87 m/uL (3.80-5.40); RDW 16.7 % (11.5-15.5); WBC 12.1 k/uL (3.8-10.6)
[2020-05-29] MEDS: FORMOTEROL FUMARATE 20 MCG/2 ML NEBU INHALATION SCH ×2 (07:20→19:33)
[2020-05-29] MEDS: IPRATROPIUM-ALBUTEROL 3 ML NEB INHALATION SCH ×4 (07:20→19:33)
[2020-05-29] MEDS: BUDESONIDE 1 MG/2 ML NEBU INHALATION SCH ×2 (07:20→19:32)
[2020-05-29] MEDS: ATORVASTATIN 40 MG TAB PO SCH (08:39)
[2020-05-29] MEDS: lisinopriL 10 MG TAB PO SCH (08:39)
[2020-05-29] MEDS: INSULIN ASPART (NovoLOG) 100 UNIT/ML VIAL SQ SCH ×4 (08:39→20:33)
[2020-05-29] MEDS: ESCITALOPRAM 20 MG TAB PO SCH (08:39)
[2020-05-29] MEDS: PANTOPRAZOLE 40 MG/10 ML VIAL IVP SCH ×2 (08:40→20:34)
[2020-05-29 11:35] LABS: Glucose,Whole Blood 239 mg/dL (75-99)
[2020-05-29] MEDS: HYDROcodone/APAP 7.5-325MG 1 EACH TAB PO PRN ×2 (11:56→17:58)
--- NOTE | 2020-05-29 12:40 | P.PN ---
Subjective Progress Note Date: 05/29/20 Principal diagnosis: Anemia Patient also has a history of angiodysplasia of her multiple recent GI bleeds requiring transfusion intervention, Recurrent lower extremity cellulitis, HTN, and HLD who presented to the emergency department due to severe anemia on blood work done by her PCP. On arrival to the emergency department she underwent an extensive evaluation. Initial vital signs are normal limits. Initial Laboratory analysis showed a hemoglobin of 6.1, hematocrit 20, BUN 38, creatinine 0.9, glucose 183. SHe was given 1 unit of pRBC and admitted for GI bleed. She was made NPO and started on IV PPI. Patient seen and examined at bedside. She reports that she saw Dr. Boyle and had blood work done and was called and hour later and told come to the hospital. She denies noticing any bright red blood in her stools or dark tarry looking stools. No chest pain. Her breathing is much better after 1 unit of blood. No other complaints currently. General: non toxic, no distress, appears at stated age Derm: warm, dry Head: atraumatic, normocephalic, symmetric Eyes: EOMI, no lid lag, anicteric sclera Mouth: no lip lesion, mucus membranes dry Cardiovascular: S1S2 reg, no murmur, positive posterior tibial pulse bilateral, Lungs: CTA bilateral, no rhonchi, no rales , no accessory muscle use Abdominal: soft, nontender to palpation, no guarding, no appreciable or ganomegaly Ext: no gross muscle atrophy, trace edema, no contractures Neuro: CN II-XI grossly intact, no focal neuro deficits Psych: Alert, oriented, appropriate affect Severe anemia -Suspect component of acute blood loss with iron deficiency anemia -Continue to follow CBC -IV PPI -GI consult -Hematology oncology consult -Transfuse as needed for hemoglobin less than 7 -Stop aspirin Diabetes mellitus type 2 -Hold metformin -Sliding-scale insulin -Hemoglobin A1c 5.9 -Levemir Left leg cellulitis and treated as an outpatient -Continue with Keflex to complete course -Likely would benefit from vascular surgery consult on discharge Hypertension -Lisinopril -Follow blood pressures Hypothyroidism -Synthroid COPD without exacerbation -Continue with her home scheduled and as needed bronchodilators Dyslipidemia -Lipitor Obesity with BMI 34.9 -Outpatient structured weight loss DVT prophylaxis: SCDs Discussed with: Patient, nursing Anticipated discharge: 2-[address]: Home A total of 35 minutes was spent on the care of this complex patient more than 50% of the time was spent in counseling and care coordination. Objective - Vital Signs Vital signs: Vital Signs Temp 98.1 F 05/29/20 11:25 Pulse 89 05/29/20 11:25 Resp 18 05/29/20 11:25 BP 167/72 05/29/20 11:25 Pulse Ox 94 L 05/29/20 11:25 Intake & Output 05/28/20 05/29/20 05/29/20 18:59 06:59 18:59 Intake Total 1370 Balance 1370 Weight 78.471 kg Intake: Intake, IV Titration 160 Amount Sodium Chloride 0.9% 1, 160 000 ml @ 20 mls/hr IV . Q24H [facility] Rx#:[id number] Oral 590 Blood Product 620 Rc As-1 Unit 310 [id number] Rc As-1 Unit 310 [id number] Other: Voiding Method Bedside Commode Bedside Commode # Voids 2 1 - Labs CBC & Chem 7: 05/29/20 06:35 05/28/20 19:47 Labs: Abnormal Lab Results - Last 24 Hours (Table) 05/28/20 05/28/20 05/28/20 Range/Units 19:47 19:47 19:47 WBC (3.8-10.6) k/uL RBC 2.30 L (3.80-5.40) m/uL Hgb 6.1 L* (11.4-16.0) gm/dL Hct 20.2 L (34.0-46.0) % MCHC 30.0 L (31.0-37.0) g/dL RDW 17.8 H (11.5-15.5) % Neutrophils # 8.0 H (1.3-7.7) k/uL Lymphocytes # 0.9 L (1.0-4.8) k/uL Chloride 97 L (98-107) mmol/L Carbon Dioxide 33 H (22-30) mmol/L BUN 38 H (7-17) mg/dL Glucose 183 H (74-99) mg/dL POC Glucose (mg/dL) (75-99) mg/dL Total Protein 6.2 L (6.3-8.2) g/dL Albumin 3.3 L (3.5-5.0) g/dL Crossmatch See Detail 05/29/20 05/29/20 05/29/20 Range/Units 00:26 06:35 06:54 WBC 12.1 H (3.8-10.6) k/uL RBC 2.87 L (3.80-5.40) m/uL Hgb 8.0 L D (11.4-16.0) gm/dL Hct 25.9 L (34.0-46.0) % MCHC 30.8 L (31.0-37.0) g/dL RDW 16.7 H (11.5-15.5) % Neutrophils # 11.2 H (1.3-7.7) k/uL Lymphocytes # 0.4 L (1.0-4.8) k/uL Chloride (98-107) mmol/L Carbon Dioxide (22-30) mmol/L BUN (7-17) mg/dL Glucose (74-99) mg/dL POC Glucose (mg/dL) 236 H 290 H (75-99) mg/dL Total Protein (6.3-8.2) g/dL Albumin (3.5-5.0) g/dL Crossmatch 05/29/20 Range/Units 11:29 WBC (3.8-10.6) k/uL RBC (3.80-5.40) m/uL Hgb (11.4-16.0) gm/dL Hct (34.0-46.0) % MCHC (31.0-37.0) g/dL RDW (11.5-15.5) % Neutrophils # (1.3-7.7) k/uL Lymphocytes # (1.0-4.8) k/uL Chloride (98-107) mmol/L Carbon Dioxide (22-30) mmol/L BUN (7-17) mg/dL Glucose (74-99) mg/dL POC Glucose (mg/dL) 239 H (75-99) mg/dL Total Protein (6.3-8.2) g/dL Albumin (3.5-5.0) g/dL Crossmatch
--- NOTE | 2020-05-29 14:08 | P.CONS ---
History of Present Illness - Reason for Consult Consult date: 05/29/20 anemia Requesting physician: Noelle Colorado - Chief Complaint anemia - History of Present Illness 70-year-old female with a past medical history significant for diabetes mellit us, COPD, hypertension, hyperlipidemia, recurrent episodes of lower extremity cellulitis, with recent history of multiple hospital admissions for GI bleed who presented back to the hospital due to anemia. Patient had routine blood work in the outpatient setting and was found to be anemic with a hemoglobin of 5.7. Patient does report feeling increasingly fatigued recently. On previous admissions she had seen melanotic stool but is denying this currently. The patient had been taking aspirin therapy at home which she started independently of any physician's recommendations. Previously she had undergone endoscopic evaluation on 2 occasions in 03/2020 initially with findings of duodenal ulcers on repeat EGD the patient was found to have a healing duodenal ulcer with bleeding angiodysplasia in the second part of the duodenum which was treated with cautery. She presented back a third occasion at that time had EGD with cautery using Gold probe ablation of a duodenal AVM as well as colonoscopy with cautery of cecal angiodysplasia as well as Endo Clip placement, and was also noted to have diverticulosis at that time.currently the patient is seen lying in bed denying any abdominal pain, nausea or vomiting. Review of Systems REVIEW OF SYSTEMS: CONSTITUTIONAL: Denies any fevers, chills, weight changebut does report some fatigue. CARDIOVASCULAR: Denies any chest pain, palpitations high or low blood pressures RESPIRATORY: Denies any shortness of breath, hemoptysis or cough. GENITOURINARY: No dysuria or hematuria. MUSCULOSKELETAL: No weakness reported. SKIN: Denies any new rashes or lesions, jaundice or pallor. PSYCHIATRIC: Denies any depression or anxiety. NEUROLOGY: Denies headache, denies any new focal deficits. EARS/NOSE/THROAT: No recent hearing change, congestion, nasal discharge or sore throat. EYES: No pain in eyes, discharge or change in vision. GASTROINTESTINAL: As per HPI. Past Medical History Past Medical History: Asthma, Chest Pain / Angina, COPD, Diabetes Mellitus, Hyperlipidemia, Hypertension, Osteoarthritis (OA), Respiratory Disorder, Skin Disorder, Thyroid Disorder Additional Past Medical History / Comment(s): Obesity (BMI 35) COPD, asthma, diabetes , depression, 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 The patient is also a smoker. The patient has chronic back pain. History of Any Multi-Drug Resistant Organisms: None Reported Past Surgical History: Appendectomy, Section, Cholecystectomy, Orthopedic Surgery, Tubal Ligation Additional Past Surgical History / Comment(s): LASER SX JETHRO EYES FOR GLAUCOMA. RT KNEE ARTHROSCOPY. UNDERWENT PERCUTANEOUS NEPHROSTOLITHOTOMY Past Anesthesia/Blood Transfusion Reactions: No Reported Reaction Past Psychological History: Anxiety, Depression Additional Psychological History / Comment(s): pt stated maintained by [employer]. and lives with the and adult son. 2 adult children. 2 dogs and 6 cats in the home, they rescue. Ongoing tobacco use but denied alcohol use or recreational drug use. Does not work outside of the home. No experience. No travel history Smoking Status: Former smoker Past Alcohol Use History: None Reported Additional Past Alcohol Use History / Comment(s): Patient is an active smoker on e pack per day and started smoking in 1968. She denies any marijuana, illicit drug use or alcohol use. She is and lives at home with her . There are 2 dogs and 2 cats in the home. No service and no travel history. Past Drug Use History: None Reported - Past Family History Mother Additional Family Medical History / Comment(s): emphysema, heart valve problems, in her slepp. Brother(s) Family Medical History: Cancer Additional Family Medical History / Comment(s): from oral cancer Father Brother(s) Family Medical History: Cancer Additional Family Medical History / Comment(s): heart disease Medications and Allergies Home Medications Medication Instructions Recorded Confirmed Type Zafirlukast [Accolate] 20 mg PO BID 02/06/14 05/28/20 History ARIPiprazole [Abilify] 5 mg PO HS 02/07/18 05/28/20 History metFORMIN HCL [Glucophage] 1,000 mg PO BID-W/MEALS 02/07/18 05/28/20 History Atorvastatin [Lipitor] 40 mg PO DAILY #30 tab 09/10/18 05/28/20 Rx Cholecalciferol [Vitamin D3 (25 1,000 unit PO DAILY 09/03/19 05/28/20 History Mcg = 1000 Iu)] Levothyroxine Sodium [Synthroid] 200 mcg PO DAILY 09/03/19 05/28/20 History Albuterol Sulfate [Ventolin HFA] 1 - 2 puff INHALATION RT-Q6H PRN 03/11/20 05/28/20 History Escitalopram [Lexapro] 20 mg PO DAILY 03/11/20 05/28/20 History Budesonide [Pulmicort] 1 mg INHALATION RT-BID ml 03/27/20 05/28/20 Rx Formoterol Fumarate [Perforomist] 20 mcg INHALATION RT-BID nebu 03/27/20 05/28/20 Rx HYDROcodone/APAP 7.5-325MG [[place] 1 tab PO Q6H PRN #12 tab 03/27/20 05/28/20 Rx 7.5-325] Ipratropium-Albuterol Nebulize 3 ml INHALATION RT-Q2H PRN ml 03/27/20 05/28/20 Rx [Duoneb 0.5 mg-3 mg/3 ml Soln] Pantoprazole Sodium [Protonix] 40 mg PO BID #60 tablet. 03/27/20 05/28/20 Rx Furosemide [Lasix] 40 mg PO DAILY 04/27/20 05/28/20 History Magnesium Oxide [Mag-Ox] 400 mg PO DAILY #30 tablet 04/27/20 05/28/20 Rx Aspirin EC [Ecotrin Low Dose] 81 mg PO DAILY 05/15/20 05/28/20 History traZODone HCL 100 mg PO HS PRN 05/15/20 05/28/20 History Lisinopril [Zestril] 10 mg PO DAILY 05/28/20 05/28/20 History Allergies Allergy/AdvReac Type Severity Reaction Status Date / Time adhesive Allergy Rash/Hives Verified 05/28/20 19:42 ciprofloxacin [From Cipro] Allergy Rash/Hives Verified 05/28/20 19:42 ciprofloxacin HCl Allergy Rash/Hives Verified 05/28/20 19:42 [From Cipro] latex Allergy Rash/Hives Verified 05/28/20 19:42 nitrofurantoin Allergy Rash/Hives Verified 05/28/20 19:42 [From Macrobid] nitrofurantoin Allergy Rash/Hives Verified 05/28/20 19:42 macrocrystalline [From Macrobid] Penicillins Allergy Rash/Hives Verified 05/28/20 19:42 propoxyphene HCl Allergy Rash/Hives Verified 05/28/20 19:42 [From Darvon] propoxyphene napsylate Allergy Unknown Verified 05/28/20 19:42 [From Darvocet-N] Physical Exam Vitals: Vital Signs Temp Pulse Resp BP Pulse Ox 05/29/20 07:38 86 05/29/20 07:30 80 05/29/20 07:20 84 05/29/20 04:20 98.1 F 90 22 173/78 95 05/29/20 02:25 98.1 F 89 22 165/89 95 05/29/20 01:55 98 F 81 22 173/70 96 05/29/20 01:45 98.1 F 84 21 167/71 97 05/29/20 00:24 98.2 F 79 20 154/71 95 05/28/20 22:25 97.9 F 82 24 164/67 94 L 05/28/20 22:10 97.9 F 72 22 144/61 05/28/20 21:55 97.6 F 79 22 145/48 96 05/28/20 21:52 97.6 F 74 22 151/55 05/28/20 21:45 97.6 F 80 22 154/50 95 05/28/20 21:24 80 05/28/20 21:11 79 05/28/20 20:01 24 05/28/20 19:36 98.0 F 94 24 138/52 93 L Intake and Output 05/28/20 05/29/20 05/29/20 22:59 06:59 14:59 Intake Total 590 780 Balance 590 780 Intake: Intake, IV Titration 160 Amount Sodium Chloride 0.9% 1, 160 000 ml @ 20 mls/hr IV . Q24H [facility] Rx#:[id number] Oral 590 Blood Product 0 620 Rc As-1 Unit 310 [id number] Rc As-1 Unit 0 310 [id number] Other: Voiding Method Bedside Commode # Voids 1 2 1 Weight 78.471 kg On physical examination, patient appears comfortable in no apparent distress. HEAD: Normocephalic, atraumatic. EYES: No scleral icterus. No conjunctival injection. MOUTH: No lesions, tongue midline. NECK: Trachea midline, no gross abnormalities. CHEST: decreased air entry in all lung campbell. HEART: S1-S2 appreciated. ABDOMEN: Soft, obeseand nontender. Bowel sounds are positive. No organomegaly. No guarding or rigidity. EXTREMITIES: No pedal edema. SKIN: No rashes, no jaundice. NEUROLOGIC: Alert and oriented x3. No focal deficits. Results CBC & Chem 7: 05/29/20 06:35 05/28/20 19:47 Labs: Abnormal Lab Results - Last 24 Hours (Table) 05/28/20 05/28/20 05/28/20 Range/Units 19:47 19:47 19:47 WBC (3.8-10.6) k/uL RBC 2.30 L (3.80-5.40) m/uL Hgb 6.1 L* (11.4-16.0) gm/dL Hct 20.2 L (34.0-46.0) % MCHC 30.0 L (31.0-37.0) g/dL RDW 17.8 H (11.5-15.5) % Neutrophils # 8.0 H (1.3-7.7) k/uL Lymphocytes # 0.9 L (1.0-4.8) k/uL Chloride 97 L (98-107) mmol/L Carbon Dioxide 33 H (22-30) mmol/L BUN 38 H (7-17) mg/dL Glucose 183 H (74-99) mg/dL POC Glucose (mg/dL) (75-99) mg/dL Total Protein 6.2 L (6.3-8.2) g/dL Albumin 3.3 L (3.5-5.0) g/dL Crossmatch See Detail 05/29/20 05/29/20 05/29/20 Range/Units 00:26 06:35 06:54 WBC 12.1 H (3.8-10.6) k/uL RBC 2.87 L (3.80-5.40) m/uL Hgb 8.0 L D (11.4-16.0) gm/dL Hct 25.9 L (34.0-46.0) % MCHC 30.8 L (31.0-37.0) g/dL RDW 16.7 H (11.5-15.5) % Neutrophils # 11.2 H (1.3-7.7) k/uL Lymphocytes # 0.4 L (1.0-4.8) k/uL Chloride (98-107) mmol/L Carbon Dioxide (22-30) mmol/L BUN (7-17) mg/dL Glucose (74-99) mg/dL POC Glucose (mg/dL) 236 H 290 H (75-99) mg/dL Total Protein (6.3-8.2) g/dL Albumin (3.5-5.0) g/dL Crossmatch Chest x-ray: report reviewed (course lung markings and normal heart size on chest x-ray.) Assessment and Plan (1) Angiodysplasia of gastrointestinal tract Narrative/Plan: 70-year-old female with multiple medical comorbidities who presented to the hospital for evaluation of anemia. Patient has had multiple hospitalizations for similar complaints with 3 EGDs in the pastsignificant for a duodenal ulcer which was recently seen as well healing as well as duodenal angiodysplasia which were treated with cautery therapy and colonoscopy which was significant for diverticulosis and cecal angiodysplasia which were treated with cautery therapy. Previously she had seen some dark colored bowel movements but is denying that she is seeing any dark stool at this time. Hemoglobin was found to be 5.9 in the outpatient setting. Suspicion is for recurrent bleeding from gastrointestinal angiodysplasia and plan will be for repeat upper endoscopy with repeat colonoscope/push enteroscopy for evaluation of small bowel. Current Visit: Yes Status: Acute Code(s): K55.20 - ANGIODYSPLASIA OF COLON WITHOUT HEMORRHAGE SNOMED Code(s): 789016972 (2) GI bleed Current Visit: Yes Status: Acute Code(s): K92.2 - GASTROINTESTINAL HEMORRHAGE, UNSPECIFIED SNOMED Code(s): 67039277 (3) Anemia associated with acute blood loss Current Visit: No Status: Acute Code(s): D62 - ACUTE POSTHEMORRHAGIC ANEMIA SNOMED Code(s): 967641393 Plan: supportive care Clear liquid diet Nothing by mouth after midnight Continue to monitor hemoglobin and hematocrit and transfuse as needed Continue to hold any NSAID therapy or anticoagulation Continue Protonix therapy Plan for push enteroscopy tomorrow for further evaluation Thank you for allowing us to participate in the care of the patient
--- NOTE | 2020-05-29 15:13 | P.CONS ---
History of Present Illness - Reason for Consult Consult date: 05/29/20 Severe Recurrent Anemia Requesting physician: Adrienne Elliott - Chief Complaint Symptomatic Anemia - History of Present Illness Mrs. Estrada is a 70 year old female who presents at the direction of her PCP for evaluation and treatment of her severe anemia. She has a known history of angiodysplasia and multiple recent GI bleeds requiring transfusion intervention and admissions. Other known history includes recurrent lower extremity cellulitis, HTN, and HLD. On Admission Initial Laboratory analysis showed a hemoglobin of 6.1, hematocrit 20, she was given 1 unit of pRBC and admitted for GI bleed. GI was consulted and she was made NPO and started on IV PPI. Review of Systems All systems: negative Constitutional: Reports as per HPI Past Medical History Past Medical History: Asthma, Chest Pain / Angina, COPD, Diabetes Mellitus, Hyperlipidemia, Hypertension, Osteoarthritis (OA), Respiratory Disorder, Skin Disorder, Thyroid Disorder Additional Past Medical History / Comment(s): Obesity (BMI 35) COPD, asthma, diabetes , depression, 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 The patient is also a smoker. The patient has chronic back pain. History of Any Multi-Drug Resistant Organisms: None Reported Past Surgical History: Appendectomy, Section, Cholecystectomy, Orthopedic Surgery, Tubal Ligation Additional Past Surgical History / Comment(s): LASER SX JETHRO EYES FOR GLAUCOMA. RT KNEE ARTHROSCOPY. UNDERWENT PERCUTANEOUS NEPHROSTOLITHOTOMY Past Anesthesia/Blood Transfusion Reactions: No Reported Reaction Past Psychological History: Anxiety, Depression Additional Psychological History / Comment(s): pt stated maintained by [employer]. and lives with the and adult son. 2 adult children. 2 dogs and 6 cats in the home, they rescue. Ongoing tobacco use but denied alcohol use or recreational drug use. Does not work outside of the home. No e xperience. No travel history Smoking Status: Former smoker Past Alcohol Use History: None Reported Additional Past Alcohol Use History / Comment(s): Patient is an active smoker one pack per day and started smoking in 1968. She denies any marijuana, illicit drug use or alcohol use. She is and lives at home with her . There are 2 dogs and 2 cats in the home. No service and no travel history. Past Drug Use History: None Reported - Past Family History Mother Additional Family Medical History / Comment(s): emphysema, heart valve problems, in her slepp. Brother(s) Family Medical History: Cancer Additional Family Medical History / Comment(s): from oral cancer Father Brother(s) Family Medical History: Cancer Additional Family Medical History / Comment(s): heart disease Medications and Allergies Home Medications Medication Instructions Recorded Confirmed Type Zafirlukast [Accolate] 20 mg PO BID 02/06/14 05/28/20 History ARIPiprazole [Abilify] 5 mg PO HS 02/07/18 05/28/20 History metFORMIN HCL [Glucophage] 1,000 mg PO BID-W/MEALS 02/07/18 05/28/20 History Atorvastatin [Lipitor] 40 mg PO DAILY #30 tab 09/10/18 05/28/20 Rx Cholecalciferol [Vitamin D3 (25 1,000 unit PO DAILY 09/03/19 05/28/20 History Mcg = 1000 Iu)] Levothyroxine Sodium [Synthroid] 200 mcg PO DAILY 09/03/19 05/28/20 History Albuterol Sulfate [Ventolin HFA] 1 - 2 puff INHALATION RT-Q6H PRN 03/11/20 05/28/20 History Escitalopram [Lexapro] 20 mg PO DAILY 03/11/20 05/28/20 History Budesonide [Pulmicort] 1 mg INHALATION RT-BID ml 03/27/20 05/28/20 Rx Formoterol Fumarate [Perforomist] 20 mcg INHALATION RT-BID nebu 03/27/20 05/28/20 Rx HYDROcodone/APAP 7.5-325MG [[place] 1 tab PO Q6H PRN #12 tab 03/27/20 05/28/20 Rx 7.5-325] Ipratropium-Albuterol Nebulize 3 ml INHALATION RT-Q2H PRN ml 03/27/20 05/28/20 Rx [Duoneb 0.5 mg-3 mg/3 ml Soln] Pantoprazole Sodium [Protonix] 40 mg PO BID #60 tablet.dr 03/27/20 05/28/20 Rx Furosemide [Lasix] 40 mg PO DAILY 04/27/20 05/28/20 History Magnesium Oxide [Mag-Ox] 400 mg PO DAILY #30 tablet 04/27/20 05/28/20 Rx Aspirin EC [Ecotrin Low Dose] 81 mg PO DAILY 05/15/20 05/28/20 History traZODone HCL 100 mg PO HS PRN 05/15/20 05/28/20 History Lisinopril [Zestril] 10 mg PO DAILY 05/28/20 05/28/20 History Allergies Allergy/AdvReac Type Severity Reaction Status Date / Time adhesive Allergy Rash/Hives Verified 05/28/20 19:42 ciprofloxacin [From Cipro] Allergy Rash/Hives Verified 05/28/20 19:42 ciprofloxacin HCl Allergy Rash/Hives Verified 05/28/20 19:42 [From Cipro] latex Allergy Rash/Hives Verified 05/28/20 19:42 nitrofurantoin Allergy Rash/Hives Verified 05/28/20 19:42 [From Macrobid] nitrofurantoin Allergy Rash/Hives Verified 05/28/20 19:42 macrocrystalline [From Macrobid] Penicillins Allergy Rash/Hives Verified 05/28/20 19:42 propoxyphene HCl Allergy Rash/Hives Verified 05/28/20 19:42 [From Darvon] propoxyphene napsylate Allergy Unknown Verified 05/28/20 19:42 [From Darvocet-N] Physical Exam Vitals: Vital Signs Temp Pulse Pulse Resp BP BP Pulse Ox 05/29/20 11:25 98.1 F 89 18 167/72 94 L 05/29/20 11:14 88 05/29/20 11:05 84 05/29/20 07:38 86 05/29/20 07:30 80 05/29/20 07:20 84 05/29/20 04:20 98.1 F 90 22 173/78 95 05/29/20 02:25 98.1 F 89 22 165/89 95 05/29/20 01:55 98 F 81 22 173/70 96 05/29/20 01:45 98.1 F 84 21 167/71 97 05/29/20 00:24 98.2 F 79 20 154/71 95 05/28/20 22:25 97.9 F 82 24 164/67 94 L 05/28/20 22:10 97.9 F 72 22 144/61 05/28/20 21:55 97.6 F 79 22 145/48 96 05/28/20 21:52 97.6 F 74 22 151/55 05/28/20 21:45 97.6 F 80 22 154/50 95 05/28/20 21:24 80 05/28/20 21:11 79 05/28/20 20:01 24 05/28/20 19:36 98.0 F 94 24 138/52 93 L Intake and Output 05/29/20 05/29/20 05/29/20 06:59 14:59 22:59 Intake Total 780 780 Balance 780 780 Intake: Intake, IV Titration 160 80 Amount Sodium Chloride 0.9% 1, 160 80 000 ml @ 20 mls/hr IV . Q24H [facility] Rx#:[id number] Oral 700 Blood Product 620 Rc As-1 Unit 310 [id number] Rc As-1 Unit 310 [id number] Other: Voiding Method Bedside Commode Bedside Commode # Voids 2 2 - Constitutional General appearance: cooperative, no acute distress - EENT Eyes: EOMI, PERRLA ENT: NA/AT, normal oropharynx - Neck Neck: normal ROM - Respiratory Respiratory: bilateral: CTA (mild increased effort) - Cardiovascular Heart rate: 106 Rhythm: regular - Gastrointestinal General gastrointestinal: normal bowel sounds, soft, tenderness - Integumentary Integumentary: pale - Neurologic Neurologic: CNII-XII intact - Musculoskeletal Musculoskeletal: generalized weakness, strength equal bilaterally - Psychiatric Psychiatric: A&O x's 3, appropriate affect, intact judgment & insight Results CBC & Chem 7: 05/29/20 06:35 05/28/20 19:47 Labs: Abnormal Lab Results - Last 24 Hours (Table) 05/28/20 05/28/20 05/28/20 Range/Units 19:47 19:47 19:47 WBC (3.8-10.6) k/uL RBC 2.30 L (3.80-5.40) m/uL Hgb 6.1 L* (11.4-16.0) gm/dL Hct 20.2 L (34.0-46.0) % MCHC 30.0 L (31.0-37.0) g/dL RDW 17.8 H (11.5-15.5) % Neutrophils # 8.0 H (1.3-7.7) k/uL Lymphocytes # 0.9 L (1.0-4.8) k/uL Chloride 97 L (98-107) mmol/L Carbon Dioxide 33 H (22-30) mmol/L BUN 38 H (7-17) mg/dL Glucose 183 H (74-99) mg/dL POC Glucose (mg/dL) (75-99) mg/dL Total Protein 6.2 L (6.3-8.2) g/dL Albumin 3.3 L (3.5-5.0) g/dL Crossmatch See Detail 05/29/20 05/29/20 05/29/20 Range/Units 00:26 06:35 06:54 WBC 12.1 H (3.8-10.6) k/uL RBC 2.87 L (3.80-5.40) m/uL Hgb 8.0 L D (11.4-16.0) gm/dL Hct 25.9 L (34.0-46.0) % MCHC 30.8 L (31.0-37.0) g/dL RDW 16.7 H (11.5-15.5) % Neutrophils # 11.2 H (1.3-7.7) k/uL Lymphocytes # 0.4 L (1.0-4.8) k/uL Chloride (98-107) mmol/L Carbon Dioxide (22-30) mmol/L BUN (7-17) mg/dL Glucose (74-99) mg/dL POC Glucose (mg/dL) 236 H 290 H (75-99) mg/dL Total Protein (6.3-8.2) g/dL Albumin (3.5-5.0) g/dL Crossmatch 05/29/20 Range/Units 11:29 WBC (3.8-10.6) k/uL RBC (3.80-5.40) m/uL Hgb (11.4-16.0) gm/dL Hct (34.0-46.0) % MCHC (31.0-37.0) g/dL RDW (11.5-15.5) % Neutrophils # (1.3-7.7) k/uL Lymphocytes # (1.0-4.8) k/uL Chloride (98-107) mmol/L Carbon Dioxide (22-30) mmol/L BUN (7-17) mg/dL Glucose (74-99) mg/dL POC Glucose (mg/dL) 239 H (75-99) mg/dL Total Protein (6.3-8.2) g/dL Albumin (3.5-5.0) g/dL Crossmatch Chest x-ray: report reviewed Assessment and Plan (1) Anemia Current Visit: Yes Status: Acute Code(s): D64.9 - ANEMIA, UNSPECIFIED SNOMED Code(s): 622817098 (2) Angiodysplasia of gastrointestinal tract Current Visit: Yes Status: Acute Code(s): K55.20 - ANGIODYSPLASIA OF COLON WITHOUT HEMORRHAGE SNOMED Code(s): 478523251 (3) GI bleed Current Visit: Yes Status: Acute Code(s): K92.2 - GASTROINTESTINAL HEMORRHAGE, UNSPECIFIED SNOMED Code(s): 03055920 (4) 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 - Will recheck partial anemia work-up and supplement accordingly. - Refrain from NSAIDS and ASA - May benefit from following outpatient for parental iron supplementation to maintain satisfactory hemoglobin with known intermittent GI bleeding Thank you for allowing us to participate in the care of this patient we will follow with you. Tg Hernandez NP
[2020-05-29 15:20] VITALS: BMI 34.9
[2020-05-29 17:15] LABS: Glucose,Whole Blood 272 mg/dL (75-99)
[2020-05-29 20:09] LABS: Glucose,Whole Blood 215 mg/dL (75-99)
[2020-05-29] MEDS: INSULIN DETEMIR (LEVEMIR) 100 UNIT/ML SYR SQ SCH (20:33)
[2020-05-29] MEDS: ARIPiprazole 5 MG TAB PO SCH (20:33)
[2020-05-29] MEDS: SODIUM CHLORIDE 0.9% 1,000 ML IV SCH (20:37)
[2020-05-29] MEDS: traZODone HCL 100 MG TAB PO PRN (20:56)
[2020-05-29 23:00] LABS: Ferritin 48.1 ng/mL (10.0-291.0)
[2020-05-29 23:30] LABS: % Iron Saturation 8.93 (12.00-45.00)
[2020-05-30] MEDS: LEVOTHYROXINE 100 MCG TAB PO SCH (04:40)
[2020-05-30 07:03] LABS: Glucose,Whole Blood 119 mg/dL (75-99)
[2020-05-30] MEDS: INSULIN ASPART (NovoLOG) 100 UNIT/ML VIAL SQ SCH ×4 (07:21→20:24)
[2020-05-30] MEDS: FORMOTEROL FUMARATE 20 MCG/2 ML NEBU INHALATION SCH ×2 (07:47→21:21)
[2020-05-30] MEDS: BUDESONIDE 1 MG/2 ML NEBU INHALATION SCH ×2 (07:47→21:21)
[2020-05-30] MEDS: IPRATROPIUM-ALBUTEROL 3 ML NEB INHALATION SCH ×4 (07:47→21:21)
[2020-05-30] MEDS: PANTOPRAZOLE 40 MG/10 ML VIAL IVP SCH (08:41)
[2020-05-30 09:21] LABS: Anisocytosis Slight; HCT 24.3 % (34.0-46.0); HGB 7.5 gm/dL (11.4-16.0); Hypochromasia Marked; MCH 27.8 pg (25.0-35.0); MCV 89.8 fL (80.0-100.0); Mean Platelet Volume 6.7; Platelet Count 400 k/uL (150-450); Poikilocytosis Moderate; RBC 2.71 m/uL (3.80-5.40); WBC 11.1 k/uL (3.8-10.6)
[2020-05-30 09:39] LABS: African American GFR (CKD) >90 (>60 ml/min/1.73 sqM); Anion Gap 4 mmol/L; Blood Urea Nitrogen 34 mg/dL (7-17); Calcium 8.4 mg/dL (8.4-10.2); Carbon Dioxide 29 mmol/L (22-30); Chloride 102 mmol/L (98-107); Glucose 111 mg/dL (74-99); Non-African American GFR(CKD) 82 (>60 ml/min/1.73 sqM); Potassium 4.2 mmol/L (3.5-5.1); Sodium 135 mmol/L (137-145)
[2020-05-30 11:44] LABS: Glucose,Whole Blood 112 mg/dL (75-99)
[2020-05-30] MEDS ORDERED: PROPOFOL 10 MG/ML 20 ML VIAL IV ONE (11:45)
[2020-05-30] MEDS ORDERED: GLUCAGON 1 MG/ML VIAL ONE (11:45)
[2020-05-30] MEDS ORDERED: IV FLUID CONTINUATION 1,000 ML IV ONE (11:49)
--- NOTE | 2020-05-30 11:59 | P.PN ---
Subjective Progress Note Date: 05/30/20 Principal diagnosis: Anemia Patient is a 70 yo CF with angiodysplasia and multiple recent GI bleeds requiring transfusion and intervention, recurrent lower extremity cellulitis, HT N, and HLD who presented to the emergency department due to severe anemia on blood work done by her PCP. On arrival to the emergency department she underwent an extensive evaluation. Initial vital signs are normal limits. Initial Laboratory analysis showed a hemoglobin of 6.1, hematocrit 20, BUN 38, creatinine 0.9, glucose 183. She was given 2 units of pRBC and admitted for GI bleed. She was made NPO and started on IV PPI. She was seen by hematology who recommended close outpatient follow-up for possible iron transfusion. GI recommended repeat EGD Patient seen and examined at bedside. No bowel movement yesterday, no nausea, no vomiting, no diaarrhea. She has not seen a vascular suregon about her legs in the past. She has been diagnosed with cellulites multiple times over the last few weeks. General: non toxic, no distress, appears at stated age Derm: warm, dry, erythem of left and right lower extremity does not extend past the line of demarcation Head: atraumatic, normocephalic, symmetric Eyes: EOMI, no lid lag, anicteric sclera Mouth: no lip lesion, mucus membranes dry Cardiovascular: S1S2 reg, no murmur, positive posterior tibial pulse bilateral, Lungs: CTA bilateral, no rhonchi, no rales , no accessory muscle use Abdominal: soft, nontender to palpation, no guarding, no appreciable organomegaly Ext: no gross muscle atrophy, trace edema, no contractures Neuro: CN II-XI grossly intact, no focal neuro deficits Psych: Alert, oriented, appropriate affect Severe anemia -Suspect component of acute blood loss with iron deficiency anemia -Continue to follow CBC -IV PPI -GI recs appreciated, EGD today -Hematology oncology recs appreciated outpatient follow-up for recurrent iron infusions -Transfuse as needed for hemoglobin less than 7 -Stop aspirin Diabetes mellitus type 2 -Hold metformin -Sliding-scale insulin -Hemoglobin A1c 5.9 -Levemir Left leg cellulitis and treated as an outpatient -Continue with Keflex to complete course -Likely would benefit from vascular surgery consult on discharge Hypertension -Lisinopril -Follow blood pressures Hypothyroidism -Synthroid COPD without exacerbation -Continue with her home scheduled and as needed bronchodilators Dyslipidemia -Lipitor Obesity with BMI 34.9 -Outpatient structured weight loss DVT prophylaxis: SCDs Discussed with: Patient, nursing Anticipated discharge: in AM Anticipated discharge place: Home A total of 25 minutes was spent on the care of this complex patient more than 50% of the time was spent in counseling and care coordination. Objective - Vital Signs Vital signs: Vital Signs Temp 98.2 F 05/30/20 11:22 Pulse 64 05/30/20 11:22 Resp 16 05/30/20 11:22 BP 129/63 05/30/20 11:22 Pulse Ox 95 05/30/20 11:22 Intake & Output 05/29/20 05/30/20 05/30/20 18:59 06:59 18:59 Intake Total 780 1630 Balance 780 1630 Weight 78.471 kg Intake: Intake, IV Titration 80 240 Amount Sodium Chloride 0.9% 1, 80 240 000 ml @ 20 mls/hr IV . Q24H KIET Rx#:[id number] Oral 700 1390 Other: Voiding Method Bedside Commode Bedside Commode Diaper Incontinent # Voids 2 3 1 - Labs CBC & Chem 7: 05/30/20 09:12 05/30/20 09:12 Labs: Abnormal Lab Results - Last 24 Hours (Table) 05/28/20 05/29/20 05/29/20 Range/Units 19:47 16:53 20:07 WBC (3.8-10.6) k/uL RBC (3.80-5.40) m/uL Hgb (11.4-16.0) gm/dL Hct (34.0-46.0) % RDW (11.5-15.5) % Sodium (137-145) mmol/L BUN (7-17) mg/dL Glucose (74-99) mg/dL POC Glucose (mg/dL) 272 H 215 H (75-99) mg/dL Iron 31 L (50-170) ug/dL % Saturation 8.93 L (12.00-45.00) 05/30/20 05/30/20 05/30/20 Range/Units 07:01 09:12 09:12 WBC 11.1 H (3.8-10.6) k/uL RBC 2.71 L (3.80-5.40) m/uL Hgb 7.5 L (11.4-16.0) gm/dL Hct 24.3 L (34.0-46.0) % RDW 17.0 H (11.5-15.5) % Sodium 135 L (137-145) mmol/L BUN 34 H (7-17) mg/dL Glucose 111 H (74-99) mg/dL POC Glucose (mg/dL) 119 H (75-99) mg/dL Iron (50-170) ug/dL % Saturation (12.00-45.00) 05/30/20 Range/Units 11:24 WBC (3.8-10.6) k/uL RBC (3.80-5.40) m/uL Hgb (11.4-16.0) gm/dL Hct (34.0-46.0) % RDW (11.5-15.5) % Sodium (137-145) mmol/L BUN (7-17) mg/dL Glucose (74-99) mg/dL POC Glucose (mg/dL) 112 H (75-99) mg/dL Iron (50-170) ug/dL % Saturation (12.00-45.00)
[2020-05-30] MEDS ORDERED: SODIUM CHLORIDE 0.9% 500 ML IV ONE ×2 (12:25)
--- NOTE | 2020-05-30 12:39 | P.PCN ---
Date of Procedure: 05/30/20 Description of Procedure: BRIEF HISTORY: 70-year-old female with a past medical history significant for diabetes mellitus, COPD, hypertension, hyperlipidemia, recurrent episodes of lower extremity cellulitis, with recent history of multiple hospital admissions for GI bleed who presented back to the hospital due to anemia. Patient had routine blood work in the outpatient setting and was found to be anemic with a hemoglobin of 5.7. Patient does report feeling increasingly fatigued recently. On previous admissions she had seen melanotic stool but is denying this currently. The patient had been taking aspirin therapy at home which she started independently of any physician's recommendations. Previously she had undergone endoscopic evaluation on 2 occasions in 03/2020 initially with findings of duodenal ulcers on repeat EGD the patient was found to have a healing duodenal ulcer with bleeding angiodysplasia in the second part of the duodenum which was treated with cautery. She presented back a third occasion at that time had EGD with cautery using Gold probe ablation of a duodenal AVM as well as colonoscopy with cautery of cecal angiodysplasia as well as Endo Clip placement, and was also noted to have diverticulosis at that time.currently the patient is seen lying in bed denying any abdominal pain, nausea or vomiting. PROCEDURE PERFORMED: Push enteroscopy with gold probe ablation. PREOPERATIVE DIAGNOSIS: Anemia. ESTIMATED BLOOD LOSS: Minimal. IV sedation per anesthesia. PROCEDURE: After informed consent was obtained, the patient was brought into the endoscopy unit. IV sedation was administered by Anesthesia under continuous monitoring. Initially the Olympus GIF-190 video endoscope was inserted into the mouth. Esophagus intubated without any difficulty. It was gradually advanced into the stomach and duodenum and to approximately 75 cm from the pylorus into the small bowel and carefully examined. The bulb and the second part of the duodenum appeared grossly normal except for 2 nonbleeding ulcers in the duodenal sweep which appeared to be well healing. 3 nonbleeding AVMs were noted in the third and fourth portion of the duodenum and treated with gold probe ablation. The scope at this time was withdrawn to the stomach, adequately insufflated with air, and upon careful examination, mucosa of the antrum, body, cardia and the fundus appeared normal, Except for scattered erythema in the antrum and body suggestive of mild gastritis. The scope was then withdrawn into the esophagus. The GE junction was located at 39 cm from the incisors. The esophagus appeared normal. There were no erosions or ulcerations seen and the patient tolerated the procedure well. IMPRESSION: 1. 3 small bowel AVMs noted in the third and fourth portion of the duodenum and treated with Gold probe ablation. 2. No active bleeding or old blood noted up to 75 cm past the pylorus in the small bowel. 3. Well-healing and nonbleeding duodenal ulcers as previously noted on upper endoscopy. 4. Mild gastritis. RECOMMENDATIONS: The findings of this examination were discussed with the patient and her . Okay for full liquid diet. Continue to monitor hemoglobin and hematocrit and transfuse as needed. Hematology service has been consult to see the patient. Strict avoidance of NSAID therapy as patient had restarted aspirin in the outpatient setting. Further recommendations pending continued laboratory monitoring and clinical course.
[2020-05-30] MEDS: lisinopriL 10 MG TAB PO SCH (13:10)
[2020-05-30] MEDS: ESCITALOPRAM 20 MG TAB PO SCH (13:10)
[2020-05-30] MEDS: ATORVASTATIN 40 MG TAB PO SCH (13:10)
[2020-05-30 17:24] LABS: Glucose,Whole Blood 152 mg/dL (75-99)
[2020-05-30 20:08] LABS: Glucose,Whole Blood 205 mg/dL (75-99)
[2020-05-30] MEDS: INSULIN DETEMIR (LEVEMIR) 100 UNIT/ML SYR SQ SCH (20:23)
[2020-05-30] MEDS: ARIPiprazole 5 MG TAB PO SCH (20:23)
[2020-05-30] MEDS: HYDROcodone/APAP 7.5-325MG 1 EACH TAB PO PRN (20:23)
[2020-05-30] MEDS: PANTOPRAZOLE 40 MG TABLET PO SCH (20:23)
[2020-05-30] MEDS: traZODone HCL 100 MG TAB PO PRN (22:00)
[2020-05-30] MEDS: SODIUM CHLORIDE 0.9% 1,000 ML IV SCH (22:01)
[2020-05-31 05:03] VITALS: BP 118/62; RESP 16; TEMP 98.8
[2020-05-31] MEDS: LEVOTHYROXINE 100 MCG TAB PO SCH (05:54)
[2020-05-31 06:54] LABS: Glucose,Whole Blood 92 mg/dL (75-99)
[2020-05-31] MEDS: BUDESONIDE 1 MG/2 ML NEBU INHALATION SCH (07:20)
[2020-05-31] MEDS: FORMOTEROL FUMARATE 20 MCG/2 ML NEBU INHALATION SCH (07:20)
[2020-05-31] MEDS: IPRATROPIUM-ALBUTEROL 3 ML NEB INHALATION SCH ×2 (07:20→11:15)
[2020-05-31] MEDS: HYDROcodone/APAP 7.5-325MG 1 EACH TAB PO PRN (08:38)
[2020-05-31] MEDS: ATORVASTATIN 40 MG TAB PO SCH (08:39)
[2020-05-31] MEDS: lisinopriL 10 MG TAB PO SCH (08:39)
[2020-05-31] MEDS: INSULIN ASPART (NovoLOG) 100 UNIT/ML VIAL SQ SCH (08:39)
[2020-05-31] MEDS: PANTOPRAZOLE 40 MG TABLET PO SCH (08:39)
[2020-05-31] MEDS: ESCITALOPRAM 20 MG TAB PO SCH ×2 (08:39→08:40)
[2020-05-31 08:55] LABS: Anisocytosis Slight; HCT 25.3 % (34.0-46.0); HGB 7.8 gm/dL (11.4-16.0); Hypochromasia Marked; MCHC 30.7 g/dL (31.0-37.0); MCV 91.3 fL (80.0-100.0); Mean Platelet Volume 7.7; Platelet Count 360 k/uL (150-450); Poikilocytosis Slight; RBC 2.78 m/uL (3.80-5.40); RDW 17.2 % (11.5-15.5); WBC 9.2 k/uL (3.8-10.6)
[2020-05-31 09:04] LABS: African American GFR (CKD) 86 (>60 ml/min/1.73 sqM); Anion Gap 6 mmol/L; Blood Urea Nitrogen 28 mg/dL (7-17); Calcium 8.4 mg/dL (8.4-10.2); Carbon Dioxide 29 mmol/L (22-30); Chloride 102 mmol/L (98-107); Glucose 126 mg/dL (74-99); Non-African American GFR(CKD) 75 (>60 ml/min/1.73 sqM); Potassium 4.1 mmol/L (3.5-5.1); Sodium 137 mmol/L (137-145)
[2020-05-31] MEDS ORDERED: SODIUM FERRIC GLUCONAT-SUCROSE 125 MG in SODIUM CHLORIDE 0.9% 100 ML IVPB ONE (09:57)
--- NOTE | 2020-05-31 10:19 | P.DS ---
Providers Date of admission: 05/28/20 20:55 Expected date of discharge: 05/31/20 Attending physician: Noelle Colorado MD Consults: 05/29/20 12:36 Consult Physician Routine Consulting Provider: Bimal Martell Consult Reason/Comments: severe recurrent anemia Do you want consulting provider notified?: Yes Primary care physician: Connor Carreon Hospital Course: Discharge Diagnosis: Arterial venous malformation Acute blood loss anemia Iron deficiency anemia Left Lower extremity cellulitis, Treated outpatient Hypertension Hypothyroidism COPD without exacerbation Dyslipidemia Obesity with BMI 34.9 Hospital Course: Patient is a 70 yo CF with angiodysplasia and multiple recent GI bleeds requiring transfusion and intervention, recurrent lower extremity cellulitis, HTN, and HLD who presented to the emergency department due to severe anemia on blood work done by her PCP. On arrival to the emergency department she unde rwent an extensive evaluation. Initial vital signs are normal limits. Initial Laboratory analysis showed a hemoglobin of 6.1, hematocrit 20, BUN 38, creatinine 0.9, glucose 183. She was given 2 units of pRBC and admitted for GI bleed. She was made NPO and started on IV PPI. She was seen by hematology who recommended close outpatient follow-up for possible iron transfusion. GI recommended repeat EGD which showed 3 small bowel AVNs that were treated with the gold probe. She continued to do well and hemoglobin was stable. She was determined stable for discharge home. She will follow-up with home care. Dr. Kessler of gastroenterology and oncology. Patient seen and examined at bedside. No chest pain, shortness of breath, nausea, vomiting, diarrhea, Vital signs reviewed and stable. General: non toxic, no distress, appears at stated age Derm: warm, dry Head: atraumatic, normocephalic, symmetric Eyes: EOMI, no lid lag, anicteric sclera Mouth: no lip lesion, mucus membranes moist Cardiovascular: S1S2 reg, no murmur, positive posterior tibial pulse bilateral, Lungs: Decreased bs bilateral, no rhonchi, no rales , no accessory muscle use Abdominal: soft, nontender to palpation, no guarding, no appreciable organomegaly Ext: no gross muscle atrophy, no edema, no contractures Neuro: CN II-XI grossly intact, no focal neuro deficits Psych: Alert, oriented, appropriate affect A total of 35 minutes of time were spent preparing this complex discharge summary . Patient Condition at Discharge: Stable Plan - Discharge Summary Discharge Rx Participant: No New Discharge Prescriptions: Continue Zafirlukast [Accolate] 20 mg PO BID metFORMIN HCL [Glucophage] 1,000 mg PO BID-W/MEALS ARIPiprazole [Abilify] 5 mg PO HS Atorvastatin [Lipitor] 40 mg PO DAILY #30 tab Cholecalciferol [Vitamin D3 (25 Mcg = 1000 Iu)] 1,000 unit PO DAILY Levothyroxine Sodium [Synthroid] 200 mcg PO DAILY Albuterol Sulfate [Ventolin HFA] 1 - 2 puff INHALATION RT-Q6H PRN PRN Reason: Shortness Of Breath Escitalopram [Lexapro] 20 mg PO DAILY Ipratropium-Albuterol Nebulize [Duoneb 0.5 mg-3 mg/3 ml Soln] 3 ml INHALATION RT-Q2H PRN ml PRN Reason: Shortness Of Breath Or Wheezing Formoterol Fumarate [Perforomist] 20 mcg INHALATION RT-BID nebu Pantoprazole Sodium [Protonix] 40 mg PO BID #60 tablet. Budesonide [Pulmicort] 1 mg INHALATION RT-BID ml HYDROcodone/APAP 7.5-325MG [[place] 7.5-325] 1 tab PO Q6H PRN #12 tab PRN Reason: Pain Furosemide [Lasix] 40 mg PO DAILY Magnesium Oxide [Mag-Ox] 400 mg PO DAILY #30 tablet traZODone HCL 100 mg PO HS PRN PRN Reason: Sedation Lisinopril [Zestril] 10 mg PO DAILY Discontinued Aspirin EC [Ecotrin Low Dose] 81 mg PO DAILY Discharge Medication List Zafirlukast [Accolate] 20 mg PO BID 02/06/14 [History] ARIPiprazole [Abilify] 5 mg PO HS 02/07/18 [History] metFORMIN HCL [Glucophage] 1,000 mg PO BID-W/MEALS 02/07/18 [History] Atorvastatin [Lipitor] 40 mg PO DAILY #30 tab 09/10/18 [Rx] Cholecalciferol [Vitamin D3 (25 Mcg = 1000 Iu)] 1,000 unit PO DAILY 09/03/19 [History] Levothyroxine Sodium [Synthroid] 200 mcg PO DAILY 09/03/19 [History] Albuterol Sulfate [Ventolin HFA] 1 - 2 puff INHALATION RT-Q6H PRN 03/11/20 [History] Escitalopram [Lexapro] 20 mg PO DAILY 03/11/20 [History] Budesonide [Pulmicort] 1 mg INHALATION RT-BID ml 03/27/20 [Rx] Formoterol Fumarate [Perforomist] 20 mcg INHALATION RT-BID nebu 03/27/20 [Rx] HYDROcodone/APAP 7.5-325MG [[place] 7.5-325] 1 tab PO Q6H PRN #12 tab 03/27/20 [Rx] Ipratropium-Albuterol Nebulize [Duoneb 0.5 mg-3 mg/3 ml Soln] 3 ml INHALATION RT-Q2H PRN ml 03/27/20 [Rx] Pantoprazole Sodium [Protonix] 40 mg PO BID #60 tablet.dr 03/27/20 [Rx] Furosemide [Lasix] 40 mg PO DAILY 04/27/20 [History] Magnesium Oxide [Mag-Ox] 400 mg PO DAILY #30 tablet 04/27/20 [Rx] traZODone HCL 100 mg PO HS PRN 05/15/20 [History] Lisinopril [Zestril] 10 mg PO DAILY 05/28/20 [History] Follow up Appointment(s)/Referral(s): Connor Carreon [Primary Care Provider] - 1-2 days Gabriella Kessler MD [STAFF PHYSICIAN] - 1 Week Tg Hernandez ANPBC [Nurse Practitioner] - 1 Week Ambulatory/Diagnostic Orders: Complete Blood Count w/diff [LAB.AMB] Time Frame: 1 Week, Location: None Selected Activity/Diet/Wound Care/Special Instructions: Activity: as tolerated Diet: carb consistent Special Instructions: Return if recurrent bleeding Discharge Disposition: HOME SELF-CARE
[2020-05-31 11:27] VITALS: PULSE 76
== END 2020-05-31 12:13 | disposition home or self-care (01) | DRG 378 ==
LOC: EC 19:32 → 6NMEDSUR 20:55
PROVIDERS: ADMIT Internal Medicine; ATTEND Internal Medicine
PROC: 30233N1 Transfusion of Nonautologous Red Blood Cells into Peripheral Vein, Percutaneous Approach (ICD-10-PCS; principal; 2020-05-30 10:27)
PROC: 0D598ZZ Destruction of Duodenum, Via Natural or Artificial Opening Endoscopic (ICD-10-PCS; principal; 2020-05-30 10:27)
DX: K31.811 Angiodysplasia of stomach and duodenum with bleeding (principal); D62 Acute posthemorrhagic anemia; L97.929 Non-pressure chronic ulcer of unspecified part of left lower leg with unspecified severity; L03.116 Cellulitis of left lower limb; K26.4 Chronic or unspecified duodenal ulcer with hemorrhage; E11.622 Type 2 diabetes mellitus with other skin ulcer; Z79.4 Long term (current) use of insulin; I44.4 Left anterior fascicular block; K57.90 Diverticulosis of intestine, part unspecified, without perforation or abscess without bleeding; R13.10 Dysphagia, unspecified; E86.0 Dehydration; K29.70 Gastritis, unspecified, without bleeding; D50.9 Iron deficiency anemia, unspecified; I10 Essential (primary) hypertension; E78.5 Hyperlipidemia, unspecified; E66.9 Obesity, unspecified; E03.9 Hypothyroidism, unspecified; M51.36 Other intervertebral disc degeneration, lumbar region; J44.9 Chronic obstructive pulmonary disease, unspecified; I83.90 Asymptomatic varicose veins of unspecified lower extremity; H40.9 Unspecified glaucoma; G89.29 Other chronic pain; M54.9 Dorsalgia, unspecified; M19.90 Unspecified osteoarthritis, unspecified site; F41.9 Anxiety disorder, unspecified; F32.9 Major depressive disorder, single episode, unspecified; Z68.34 Body mass index [BMI] 34.0-34.9, adult; Z90.49 Acquired absence of other specified parts of digestive tract; Z88.0 Allergy status to penicillin; Z88.8 Allergy status to other drugs, medicaments and biological substances; Z88.1 Allergy status to other antibiotic agents; Z91.040 Latex allergy status; Z79.890 Hormone replacement therapy; Z79.899 Other long term (current) drug therapy; Z79.82 Long term (current) use of aspirin; Z87.891 Personal history of nicotine dependence; Z91.81 History of falling; Z87.442 Personal history of urinary calculi; Z85.828 Personal history of other malignant neoplasm of skin; Z82.5 Family history of asthma and other chronic lower respiratory diseases; Z80.8 Family history of malignant neoplasm of other organs or systems; Z98.891 History of uterine scar from previous surgery; Z98.51 Tubal ligation status
CPT/HCPCS: 36415; 36430; 44360; 71046; 80048; 80053; 82607; 82728; 83540; 83550; 83615; 83735; 83921; 84100; 84484; 85025; 85027; 85610; 85730; 86850; 86900; 86901; 86920; 93005; 94640; 96361; 96374; 99285

== ENCOUNTER → 2020-05-28 | Outpatient (CLI) | payer MEDICARE, OTHER ==
[2020-05-28 15:34] LABS: Anisocytosis Slight; Basophils # (A) 0.1 k/uL (0-0.2); Basophils % (A) 1 %; Eosinophils # (A) 0.5 k/uL (0-0.7); Eosinophils % (A) 5 %; Hypochromasia Marked; Lymphocytes # (A) 0.7 k/uL (1.0-4.8); Lymphocytes % (A) 7 %; MCH 26.5 pg (25.0-35.0); MCHC 29.6 g/dL (31.0-37.0); MCV 89.4 fL (80.0-100.0); Mean Platelet Volume 7.2; Monocytes # (A) 0.6 k/uL (0-1.0); Monocytes % (A) 6 %; Neutrophils # (A) 7.9 k/uL (1.3-7.7); Neutrophils % (A) 80 %; Platelet Count 442 k/uL (150-450); Poikilocytosis Slight; RBC 2.15 m/uL (3.80-5.40); RDW 17.7 % (11.5-15.5); WBC 9.9 k/uL (3.8-10.6)
[2020-05-28 15:46] LABS: HGB 5.7 gm/dL (11.4-16.0)
[2020-05-28 15:47] LABS: HCT 19.3 % (34.0-46.0)
== END | disposition home or self-care (01) ==
LOC: LABWHC1 13:54
PROVIDERS: ATTEND Family Medicine
DX: L03.90 Cellulitis, unspecified (principal)
CPT/HCPCS: 36415; 85025

== ENCOUNTER → 2020-06-04 | Outpatient (CLI) | payer MEDICARE, OTHER ==
[2020-06-04 18:26] LABS: Anisocytosis Slight; Basophils % (A) 0 %; Eosinophils # (A) 0.5 k/uL (0-0.7); Eosinophils % (A) 5 %; HCT 26.5 % (34.0-46.0); HGB 7.9 gm/dL (11.4-16.0); Hypochromasia Marked; Lymphocytes # (A) 0.9 k/uL (1.0-4.8); Lymphocytes % (A) 9 %; MCHC 29.8 g/dL (31.0-37.0); MCV 90.7 fL (80.0-100.0); Mean Platelet Volume 7.9; Monocytes # (A) 0.7 k/uL (0-1.0); Monocytes % (A) 6 %; Neutrophils # (A) 8.4 k/uL (1.3-7.7); Neutrophils % (A) 79 %; Platelet Count 375 k/uL (150-450); Poikilocytosis Slight; RBC 2.92 m/uL (3.80-5.40); RDW 16.7 % (11.5-15.5); WBC 10.5 k/uL (3.8-10.6)
== END | disposition home or self-care (01) ==
LOC: LABWHC1 15:07
PROVIDERS: ATTEND Internal Medicine
DX: D50.9 Iron deficiency anemia, unspecified (principal)
CPT/HCPCS: 36415; 85025

== ENCOUNTER → 2020-07-09 | Outpatient (CLI) | payer MEDICARE, OTHER ==
[2020-07-09 16:54] LABS: Basophils % (A) 0 %; Eosinophils # (A) 0.3 k/uL (0-0.7); Eosinophils % (A) 4 %; HGB 7.2 gm/dL (11.4-16.0); Hypochromasia Marked; Lymphocytes % (A) 12 %; MCH 24.5 pg (25.0-35.0); MCHC 30.1 g/dL (31.0-37.0); Mean Platelet Volume 6.9; Monocytes # (A) 0.6 k/uL (0-1.0); Monocytes % (A) 7 %; Neutrophils # (A) 6.5 k/uL (1.3-7.7); Neutrophils % (A) 75 %; Platelet Count 418 k/uL (150-450); RBC 2.95 m/uL (3.80-5.40); WBC 8.7 k/uL (3.8-10.6)
[2020-07-09 16:59] LABS: MCV 81.4 fL (80.0-100.0)
[2020-07-10 00:04] LABS: Ferritin 35.2 ng/mL (10.0-291.0)
[2020-07-10 00:55] LABS: % Iron Saturation 4.85 (12.00-45.00)
== END | disposition home or self-care (01) ==
LOC: LABWHC1 15:25
PROVIDERS: ATTEND Internal Medicine Gastroenterology
DX: D50.9 Iron deficiency anemia, unspecified (principal)
CPT/HCPCS: 36415; 82728; 83540; 83550; 85025

== ENCOUNTER → 2020-09-13 | Outpatient (CLI) | payer MEDICARE, OTHER ==
--- NOTE | 2020-09-14 07:51 | XR ---
EXAMINATION TYPE: XR lumbar spine 2 or 3V DATE OF EXAM: 09/13/2020 CLINICAL HISTORY: pain TECHNIQUE: Three views of the lumbar spine are submitted. COMPARISON: None. FINDINGS: There are 5 lumbar type vertebral bodies identified. The lumbar spine shows satisfactory alignment w ithout evidence of acute fracture or dislocation. Vertebral body heights are within normal limits. Severe multilevel degenerative disc disease and spondylosis. Severe facet joint arthropathy. The ove rlying soft tissue appears unremarkable. IMPRESSION: No acute fracture or dislocation is seen in the lumbar spine. ICD 10 NO FRACTURE, INITIAL EVALUATION
--- NOTE | 2020-09-14 07:53 | XR ---
EXAMINATION TYPE: XR Hip Complete LT DATE OF EXAM: 09/13/2020 CLINICAL HISTORY: pain TECHNIQUE: AP and frogleg views of the left hip are obtained. COMPARISON: None. FINDINGS: There is no acute fracture/dislocation evident. The joint space appears moderately narro wed. Acetabular spur formation noted. The overlying soft tissue appears unremarkable. IMPRESSION: 1. There is no acute fracture or dislocation.ICD 10 NO FRACTURE, INITIAL EVALUATION
== END | disposition home or self-care (01) ==
LOC: RAD 16:12
PROVIDERS: ATTEND Family Medicine
DX: M54.5 Low back pain (principal)
CPT/HCPCS: 72100; 73502

== ENCOUNTER 2020-10-27 12:16 | Inpatient (IN) | payer MEDICARE, OTHER ==
--- NOTE | 2020-10-27 14:20 | ED ---
Female Urogenital HPI - General Chief complaint: Urogenital Stated complaint: bladder infection Source: patient Mode of arrival: wheelchair Limitations: no limitations - History of Present Illness Initial comments: 70-year-old female with history of heart failure, oxygen dependent COPD, diabetes, recurrent UTIs presents emergency Department with chief complaint of a UTI. Patient reports increased urgency frequency and dysuria for the past 3-4 weeks. States she went to another emergency center and was prescribed Keflex. The antibiotics helped alleviate some of the symptoms while she was taken in within the return. Patient reports also taking Pyridium with minimal improv ement in symptoms. Patient reports now she is also developing increased right- sided back pain on top of her chronic back pain. Patient also reports night sweats but denies any fevers. States she has been previously admitted for a UTI. She denies any chest pain or shortness of breath. - Related Data Home Medications Medication Instructions Recorded Confirmed Zafirlukast [Accolate] 20 mg PO BID 02/06/14 05/28/20 ARIPiprazole [Abilify] 5 mg PO HS 02/07/18 05/28/20 metFORMIN HCL [Glucophage] 1,000 mg PO BID-W/MEALS 02/07/18 05/28/20 Cholecalciferol [Vitamin D3 (25 1,000 unit PO DAILY 09/03/19 05/28/20 Mcg = 1000 Iu)] Levothyroxine Sodium [Synthroid] 200 mcg PO DAILY 09/03/19 05/28/20 Albuterol Sulfate [Ventolin HFA] 1 - 2 puff INHALATION RT-Q6H PRN 03/11/20 05/28/20 Escitalopram [Lexapro] 20 mg PO DAILY 03/11/20 05/28/20 Furosemide [Lasix] 40 mg PO DAILY 04/27/20 05/28/20 traZODone HCL 100 mg PO HS PRN 05/15/20 05/28/20 Lisinopril [Zestril] 10 mg PO DAILY 05/28/20 05/28/20 Previous Rx's Medication Instructions Recorded Atorvastatin [Lipitor] 40 mg PO DAILY #30 tab 09/10/18 Budesonide [Pulmicort] 1 mg INHALATION RT-BID ml 03/27/20 Formoterol Fumarate [Perforomist] 20 mcg INHALATION RT-BID nebu 03/27/20 HYDROcodone/APAP 7.5-325MG [[place] 1 tab PO Q6H PRN #12 tab 03/27/20 7.5-325] Ipratropium-Albuterol Nebulize 3 ml INHALATION RT-Q2H PRN ml 03/27/20 [Duoneb 0.5 mg-3 mg/3 ml Soln] Pantoprazole Sodium [Protonix] 40 mg PO BID #60 tablet. 03/27/20 Magnesium Oxide [Mag-Ox] 400 mg PO DAILY #30 tablet 04/27/20 Allergies Allergy/AdvReac Type Severity Reaction Status Date / Time adhesive Allergy Rash/Hives Verified 10/27/20 15:41 ciprofloxacin [From Cipro] Allergy Rash/Hives Verified 10/27/20 15:41 ciprofloxacin HCl Allergy Rash/Hives Verified 10/27/20 15:41 [From Cipro] latex Allergy Rash/Hives Verified 10/27/20 15:41 nitrofurantoin Allergy Rash/Hives Verified 10/27/20 15:41 [From Macrobid] nitrofurantoin Allergy Rash/Hives Verified 10/27/20 15:41 macrocrystalline [From Macrobid] Penicillins Allergy Rash/Hives Verified 10/27/20 15:41 propoxyphene HCl Allergy Rash/Hives Verified 10/27/20 15:41 [From Darvon] propoxyphene napsylate Allergy Unknown Verified 10/27/20 15:41 [From Darvocet-N] Review of Systems ROS Statement: Those systems with pertinent positive or pertinent negative responses have been documented in the HPI. ROS Other: All systems not noted in ROS Statement are negative. Past Medical History Past Medical History: Asthma, Chest Pain / Angina, COPD, Diabetes Mellitus, Hyperlipidemia, Hypertension, Osteoarthritis (OA), Respiratory Disorder, Skin Disorder, Thyroid Disorder Additional Past Medical History / Comment(s): Obesity (BMI 35) COPD, asthma, diabetes , depression, 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 The patient is also a smoker. The patient has chronic back pain. History of Any Multi-Drug Resistant Organisms: None Reported Past Surgical History: Appendectomy, Section, Cholecystectomy, Orthopedic Surgery, Tubal Ligation Additional Past Surgical History / Comment(s): LASER SX JETHRO EYES FOR GLAUCOMA. RT KNEE ARTHROSCOPY. UNDERWENT PERCUTANEOUS NEPHROSTOLITHOTOMY Past Anesthesia/Blood Transfusion Reactions: No Reported Reaction Past Psychological History: Anxiety, Depression Smoking Status: Former smoker Past Alcohol Use History: None Reported Past Drug Use History: None Reported - Past Family History Mother Additional Family Medical History / Comment(s): emphysema, heart valve problems, in her slepp. Brother(s) Family Medical History: Cancer Additional Family Medical History / Comment(s): from oral cancer Father Brother(s) Family Medical History: Cancer Additional Family Medical History / Comment(s): heart disease General Exam Limitations: no limitations General appearance: alert, in no apparent distress, obese Head exam: Present: atraumatic, normocephalic, normal inspection Eye exam: Present: normal appearance, PERRL, EOMI Pupils: Present: normal accommodation ENT exam: Present: normal exam, normal oropharynx, mucous membranes moist Neck exam: Present: normal inspection, full ROM. Absent: tenderness Respiratory exam: Present: normal lung sounds bilaterally, wheezes (Mild diffuse wheezing bilaterally). Absent: respiratory distress Cardiovascular Exam: Present: regular rate, normal rhythm, normal heart sounds GI/Abdominal exam: Present: soft. Absent: distended, tenderness Extremities exam: Present: normal inspection, full ROM, normal capillary refill. Absent: tenderness Back exam: Present: normal inspection, full ROM, tenderness, CVA tenderness (R). Absent: CVA tenderness (L), muscle spasm Neurological exam: Present: alert, oriented X3 Psychiatric exam: Present: normal affect, normal mood Skin exam: Present: warm, dry, intact, normal color Course Vital Signs 10/27/20 10/27/20 10/27/20 12:37 15:18 15:31 Temperature 97.7 F Pulse Rate 95 69 61 Respiratory 16 18 Rate Blood Pressure 97/43 111/48 O2 Sat by Pulse 94 L 95 Oximetry 10/27/20 15:36 Temperature Pulse Rate 62 Respiratory Rate Blood Pressure O2 Sat by Pulse Oximetry - Reevaluation(s) Reevaluation #1: 10/27/20 15:34 Medical records reviewed Medical Decision Making - Medical Decision Making 70-year-old female with history of oxygen-dependent COPD, heart failure, diabetes, recurrent UTIs presents to emergency department with a chief complaint of UTI. She does have mild to moderate right CVA tenderness. She is slightly hypoxic likely secondary to her COPD. Patient will be started on breathing treatments here. UA positive for white blood cells, leukocyte esterase and nitrates. Urine culture pending. Blood culture pending. Leukocytosis of 12.7. She is also having a hemoglobin of 7.0 which seems to be chronic for her. CMP reveals hyponatremia 127, she will be started 154 mL per hour of normal saline. Also elevated BUN of 56 and creatinine of 1.10. Lactic acid 2.0. I spoke with the patient from us regarding the appropriate antibiotics considering her renal function. inpatient Pharmacy suggested initial dose of 500 mg of Levaquin followed by 250 mg daily thereafter. Patient will be admitted for further medical management. Case discussed with Admitting is Dr Landaverde - Lab Data Result diagrams: 10/27/20 14:54 10/27/20 14:54 Lab Results 10/27/20 10/27/20 10/27/20 Range/Units 14:21 14:54 14:54 WBC 12.7 H (3.8-10.6) k/uL RBC 2.52 L (3.80-5.40) m/uL Hgb 7.0 L (11.4-16.0) gm/dL Hct 21.8 L (34.0-46.0) % MCV 86.5 (80.0-100.0) fL MCH 27.6 (25.0-35.0) pg MCHC 32.0 (31.0-37.0) g/dL RDW 17.5 H (11.5-15.5) % Plt Count 497 H (150-450) k/uL MPV 6.8 Neutrophils % 85 % Lymphocytes % 7 % Monocytes % 6 % Eosinophils % 0 % Basophils % 0 % Neutrophils # 10.8 H (1.3-7.7) k/uL Lymphocytes # 0.9 L (1.0-4.8) k/uL Monocytes # 0.8 (0-1.0) k/uL Eosinophils # 0.0 (0-0.7) k/uL Basophils # 0.0 (0-0.2) k/uL Anisocytosis Slight Sodium 127 L (137-145) mmol/L Potassium 4.7 (3.5-5.1) mmol/L Chloride 95 L (98-107) mmol/L Carbon Dioxide 24 (22-30) mmol/L Anion Gap 8 mmol/L BUN 54 H (7-17) mg/dL Creatinine 1.10 H (0.52-1.04) mg/dL Est GFR (CKD-EPI)AfAm 58 (>60 ml/min/1.73 sqM) Est GFR (CKD-EPI)NonAf 51 (>60 ml/min/1.73 sqM) Glucose 231 H (74-99) mg/dL Plasma Lactic Acid Ravi (0.7-2.0) mmol/L Calcium 8.9 (8.4-10.2) mg/dL Total Bilirubin 0.5 (0.2-1.3) mg/dL AST 23 (14-36) U/L ALT 31 (4-34) U/L Alkaline Phosphatase 163 H (38-126) U/L Total Protein 5.6 L (6.3-8.2) g/dL Albumin 2.7 L (3.5-5.0) g/dL Urine Color Dark Brown Urine Appearance Turbid H (Clear) Urine pH 6.5 (5.0-8.0) Ur Specific [place] 1.016 (1.001-1.035) Urine Protein 2+ H (Negative) Urine Glucose (UA) 2+ H (Negative) Urine Ketones Negative (Negative) Urine Blood Moderate H (Negative) Urine Nitrite Positive H (Negative) Urine Bilirubin 1+ H (Negative) Urine Urobilinogen 2.0 (<2.0) mg/dL Ur Leukocyte Esterase Large H (Negative) Urine RBC 26 H (0-5) /hpf Urine WBC >182 H (0-5) /hpf Urine WBC Clumps Many H (None) /hpf Ur Squamous Epith Cells 10 H (0-4) /hpf Urine Bacteria Many H (None) /hpf 10/27/20 Range/Units 14:54 WBC (3.8-10.6) k/uL RBC (3.80-5.40) m/uL Hgb (11.4-16.0) gm/dL Hct (34.0-46.0) % MCV (80.0-100.0) fL MCH (25.0-35.0) pg MCHC (31.0-37.0) g/dL RDW (11.5-15.5) % Plt Count (150-450) k/uL MPV Neutrophils % % Lymphocytes % % Monocytes % % Eosinophils % % Basophils % % Neutrophils # (1.3-7.7) k/uL Lymphocytes # (1.0-4.8) k/uL Monocytes # (0-1.0) k/uL Eosinophils # (0-0.7) k/uL Basophils # (0-0.2) k/uL Anisocytosis Sodium (137-145) mmol/L Potassium (3.5-5.1) mmol/L Chloride (98-107) mmol/L Carbon Dioxide (22-30) mmol/L Anion Gap mmol/L BUN (7-17) mg/dL Creatinine (0.52-1.04) mg/dL Est GFR (CKD-EPI)AfAm (>60 ml/min/1.73 sqM) Est GFR (CKD-EPI)NonAf (>60 ml/min/1.73 sqM) Glucose (74-99) mg/dL Plasma Lactic Acid Ravi 2.0 (0.7-2.0) mmol/L Calcium (8.4-10.2) mg/dL Total Bilirubin (0.2-1.3) mg/dL AST (14-36) U/L ALT (4-34) U/L Alkaline Phosphatase (38-126) U/L Total Protein (6.3-8.2) g/dL Albumin (3.5-5.0) g/dL Urine Color Urine Appearance (Clear) Urine pH (5.0-8.0) Ur Specific [place] (1.001-1.035) Urine Protein (Negative) Urine Glucose (UA) (Negative) Urine Ketones (Negative) Urine Blood (Negative) Urine Nitrite (Negative) Urine Bilirubin (Negative) Urine Urobilinogen (<2.0) mg/dL Ur Leukocyte Esterase (Negative) Urine RBC (0-5) /hpf Urine WBC (0-5) /hpf Urine WBC Clumps (None) /hpf Ur Squamous Epith Cells (0-4) /hpf Urine Bacteria (None) /hpf Disposition Clinical Impression: Pyelonephritis, Hyponatremia, Anemia, Dehydration Disposition: ADMITTED IP TO THIS HOSP Condition: Fair Is patient prescribed a controlled substance at d/c from ED?: No Referrals: Connor Carreon [Primary Care Provider] - 1-2 days Time of Disposition: 15:36
[2020-10-27 14:37] LABS: Appearance,Urine Turbid (Clear); Bacteria,Urine Many /hpf; Bilirubin,Urine 1+ (Negative); Blood,Urine Moderate (Negative); Color,Urine Dark Brown; Glucose,Urine (UA) 2+ (Negative); Ketones,Urine Negative (Negative); Leukocyte Esterase,Urine Large (Negative); Nitrite,Urine Positive (Negative); PH, Urine 6.5 (5.0-8.0); Protein,Urine 2+ (Negative); RBC,Urine 26 /hpf (0-5); Specific Gravity,Urine 1.016 (1.001-1.035); Squamous Epithelial Cell,Urine 10 /hpf (0-4); WBC,Urine >182 /hpf (0-5)
[2020-10-27 15:08] LABS: Anisocytosis Slight; Basophils % (A) 0 %; Eosinophils % (A) 0 %; HCT 21.8 % (34.0-46.0); Lymphocytes # (A) 0.9 k/uL (1.0-4.8); Lymphocytes % (A) 7 %; MCH 27.6 pg (25.0-35.0); MCV 86.5 fL (80.0-100.0); Mean Platelet Volume 6.8; Monocytes # (A) 0.8 k/uL (0-1.0); Monocytes % (A) 6 %; Neutrophils # (A) 10.8 k/uL (1.3-7.7); Neutrophils % (A) 85 %; Platelet Count 497 k/uL (150-450); RBC 2.52 m/uL (3.80-5.40); RDW 17.5 % (11.5-15.5); WBC 12.7 k/uL (3.8-10.6)
[2020-10-27 15:18] LABS: Albumin 2.7 g/dL (3.5-5.0); Calcium 8.9 mg/dL (8.4-10.2); Potassium 4.7 mmol/L (3.5-5.1); Total Bilirubin 0.5 mg/dL (0.2-1.3); Total Protein 5.6 g/dL (6.3-8.2)
[2020-10-27] MEDS ORDERED: HYDROcodone/APAP 7.5-325MG 1 EACH TAB PO ONE (15:20)
[2020-10-27] MEDS ORDERED: IPRATROPIUM-ALBUTEROL 3 ML NEB INHALATION STA (15:21)
[2020-10-27] MEDS ORDERED: HYDROmorphone 0.5 MG/0.5 ML SYRINGE IVP PRN (15:27)
[2020-10-27] MEDS ORDERED: ACETAMINOPHEN TAB 325 MG TAB PO PRN (15:27)
[2020-10-27] MEDS ORDERED: MORPHINE SULFATE 4 MG/ML SYRINGE IV PRN (15:27)
[2020-10-27] MEDS ORDERED: LORazepam 2 MG/ML INJ IV PRN (15:27)
[2020-10-27] MEDS ORDERED: NALOXONE 0.4 MG/ML 1 ML VIAL IV PRN (15:27)
[2020-10-27] MEDS ORDERED: SODIUM CHLORIDE 0.9% 1,000 ML IV SCH (15:30)
[2020-10-27] MEDS ORDERED: LEVOFLOXACIN 500MG-D5W PMX 500 MG in DEXTROSE/WATER 1 100ML.BAG IVPB STA (15:42)
--- NOTE | 2020-10-27 16:00 | P.HPIM ---
History of Present Illness H&P Date: 10/27/20 Chief Complaint: Urinary frequency This is a 70-year-old female with complex past medical history noted below who presented to the emergency room with worsening urinary frequency and dysuria. Patient said that her symptoms started couple of weeks ago and is been getting worse. She was seen by her PCP and diagnosed with a UTI and just finished antibiotic course with Keflex. Patient said that she did not feel any improvement. She continues to have a lot of burning with her urine and frequency. She had the incident this morning that she lost control. Patient said that she had recurrent UTIs in the past and had a long list of antibiotic ALLERGIES in her chart that she reported being accurate and serious. She was sent here to the emergency room by her primary care physician. Patient was sitting in a wheelchair when I saw her. She is mostly wheelchair bound. She denies other complaints. No fevers or chills. No nausea or vomiting. Review of Systems Review of system: 14 points review of systems were obtained and were negative except to what were mentioned in the HPI. Past Medical History Past Medical History: Asthma, Chest Pain / Angina, COPD, Diabetes Mellitus, Hyperlipidemia, Hypertension, Osteoarthritis (OA), Respiratory Disorder, Skin Disorder, Thyroid Disorder Additional Past Medical History / Comment(s): Obesity (BMI 35) COPD, asthma, diabetes , depression, 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 The patient is also a smoker. The patient has chronic back pain. History of Any Multi-Drug Resistant Organisms: None Reported Past Surgical History: Appendectomy, Section, Cholecystectomy, Or thopedic Surgery, Tubal Ligation Additional Past Surgical History / Comment(s): LASER SX JETHRO EYES FOR GLAUCOMA. RT KNEE ARTHROSCOPY. UNDERWENT PERCUTANEOUS NEPHROSTOLITHOTOMY Past Anesthesia/Blood Transfusion Reactions: No Reported Reaction Past Psychological History: Anxiety, Depression Smoking Status: Former smoker Past Alcohol Use History: None Reported Past Drug Use History: None Reported - Past Family History Mother Additional Family Medical History / Comment(s): emphysema, heart valve problems, in her slepp. Brother(s) Family Medical History: Cancer Additional Family Medical History / Comment(s): from oral cancer Father Brother(s) Family Medical History: Cancer Additional Family Medical History / Comment(s): heart disease Medications and Allergies Home Medications Medication Instructions Recorded Confirmed Type Zafirlukast [Accolate] 20 mg PO BID 02/06/14 10/27/20 History ARIPiprazole [Abilify] 5 mg PO HS 02/07/18 10/27/20 History metFORMIN HCL [Glucophage] 1,000 mg PO BID-W/MEALS 02/07/18 10/27/20 History Atorvastatin [Lipitor] 40 mg PO DAILY #30 tab 09/10/18 10/27/20 Rx Cholecalciferol [Vitamin D3 (25 1,000 unit PO DAILY 09/03/19 10/27/20 History Mcg = 1000 Iu)] Levothyroxine Sodium [Synthroid] 200 mcg PO DAILY 09/03/19 10/27/20 History Albuterol Sulfate [Ventolin HFA] 1 - 2 puff INHALATION RT-Q6H PRN 03/11/20 10/27/20 History Escitalopram [Lexapro] 20 mg PO DAILY 03/11/20 10/27/20 History Budesonide [Pulmicort] 1 mg INHALATION RT-BID ml 03/27/20 10/27/20 Rx Formoterol Fumarate [Perforomist] 20 mcg INHALATION RT-BID nebu 03/27/20 10/27/20 Rx HYDROcodone/APAP 7.5-325MG [[place] 1 tab PO Q6H PRN #12 tab 03/27/20 10/27/20 Rx 7.5-325] Ipratropium-Albuterol Nebulize 3 ml INHALATION RT-Q2H PRN ml 03/27/20 10/27/20 Rx [Duoneb 0.5 mg-3 mg/3 ml Soln] Pantoprazole Sodium [Protonix] 40 mg PO BID #60 tablet.dr 03/27/20 10/27/20 Rx Furosemide [Lasix] 40 mg PO DAILY 04/27/20 10/27/20 History Magnesium Oxide [Mag-Ox] 400 mg PO DAILY #30 tablet 04/27/20 10/27/20 Rx traZODone HCL 100 mg PO HS PRN 05/15/20 10/27/20 History Lisinopril [Zestril] 10 mg PO DAILY 05/28/20 10/27/20 History Allergies Allergy/AdvReac Type Severity Reaction Status Date / Time adhesive Allergy Rash/Hives Verified 10/27/20 15:41 ciprofloxacin [From Cipro] Allergy Rash/Hives Verified 10/27/20 15:41 ciprofloxacin HCl Allergy Rash/Hives Verified 10/27/20 15:41 [From Cipro] latex Allergy Rash/Hives Verified 10/27/20 15:41 nitrofurantoin Allergy Rash/Hives Verified 10/27/20 15:41 [From Macrobid] nitrofurantoin Allergy Rash/Hives Verified 10/27/20 15:41 macrocrystalline [From Macrobid] Penicillins Allergy Rash/Hives Verified 10/27/20 15:41 propoxyphene HCl Allergy Rash/Hives Verified 10/27/20 15:41 [From Darvon] propoxyphene napsylate Allergy Unknown Verified 10/27/20 15:41 [From Darvocet-N] Physical Exam Vitals: Vital Signs Temp Pulse Resp BP Pulse Ox 10/27/20 15:36 62 10/27/20 15:31 61 10/27/20 15:18 69 18 111/48 95 10/27/20 12:37 97.7 F 95 16 97/43 94 L Intake and Output 10/27/20 10/27/20 10/27/20 06:59 14:59 22:59 Other: Weight 68.039 kg General: The patient is awake and alert, in no distress Eye: there is normal conjunctiva bilaterally. Neck: The neck is supple, there is no JVD. Cardiovascular: Normal S1-S2, no S3-S4, no murmurs. Respiratory: Lungs clear to auscultation bilaterally Gastrointestinal: Abdomen is soft, nontender Musculoskeletal: There is no pedal edema. Neurological:. Speech is normal. Skin: Skin is warm and dry Results CBC & Chem 7: 10/27/20 14:54 10/27/20 14:54 Labs: Abnormal Lab Results - Last 24 Hours (Table) 10/27/20 10/27/20 10/27/20 Range/Units 14:21 14:54 14:54 WBC 12.7 H (3.8-10.6) k/uL RBC 2.52 L (3.80-5.40) m/uL Hgb 7.0 L (11.4-16.0) gm/dL Hct 21.8 L (34.0-46.0) % RDW 17.5 H (11.5-15.5) % Plt Count 497 H (150-450) k/uL Neutrophils # 10.8 H (1.3-7.7) k/uL Lymphocytes # 0.9 L (1.0-4.8) k/uL Sodium 127 L (137-145) mmol/L Chloride 95 L (98-107) mmol/L BUN 54 H (7-17) mg/dL Creatinine 1.10 H (0.52-1.04) mg/dL Glucose 231 H (74-99) mg/dL Alkaline Phosphatase 163 H (38-126) U/L Total Protein 5.6 L (6.3-8.2) g/dL Albumin 2.7 L (3.5-5.0) g/dL Urine Appearance Turbid H (Clear) Urine Protein 2+ H (Negative) Urine Glucose (UA) 2+ H (Negative) Urine Blood Moderate H (Negative) Urine Nitrite Positive H (Negative) Urine Bilirubin 1+ H (Negative) Ur Leukocyte Esterase Large H (Negative) Urine RBC 26 H (0-5) /hpf Urine WBC >182 H (0-5) /hpf Urine WBC Clumps Many H (None) /hpf Ur Squamous Epith Cells 10 H (0-4) /hpf Urine Bacteria Many H (None) /hpf Assessment and Plan Assessment: 1. Recurrent UTI, failed outpatient management. Patient had multiple antibiotic ALLERGIES. Discuss with pharmacy. We'll start Levaquin awaiting urine culture. Check bladder scan/postvoid residual to rule out retention. Check kidney ultrasound to rule out pyelonephritis. 2. Hypovolemic hyponatremia, we'll continue gentle IV fluid hydration with normal saline at 75 mL per hour. Repeat Work in the morning. 3. Acute on chronic anemia, probably iron deficiency. Asymptomatic. Secondary to chronic blood loss with history of prior AVMs status post cauterization most recently in May 2020. May require blood transfusion if hemoglobin drops below 7 4. Iron deficiency anemia, I may consider iron transfusion during this admission awaiting iron studies 5. Chronic medical problems, essential hypertension, hyperlipidemia, multiple blood transfusions in the past
[2020-10-27] MEDS ORDERED: diphenhydrAMINE 50 MG/ML 1 ML VIAL IVP STA (16:41)
--- NOTE | 2020-10-27 18:43 | US ---
EXAMINATION TYPE: US kidneys/renal and bladder DATE OF EXAM: 10/27/2020 COMPARISON: US, CT CLINICAL HISTORY: Rule out pyelonephritis. Rule out pyelonephritis. Hx surgery to remove kidney stone . EXAM MEASUREMENTS: Right Kidney: 13.7 x 5.6 x 5.9 cm Left Kidney: 13.0 x 4.7 x 5.5 cm Right Kidney: Appears enlarged. Cortex appears thin. Possible column of Karri seen. Left Kidney: Appears enlarged. Cortex appears thin Bladder: Not distended. Bilateral Jets seen: No IMPRESSION: No evidence of hydronephrosis. No free fluid seen around the kidneys.
[2020-10-27 20:30] LABS: Glucose,Whole Blood 153 mg/dL (75-99)
[2020-10-27] MEDS ORDERED: ALBUTEROL HFA INHALER INHALATION PRN (21:30)
[2020-10-27] MEDS: HYDROcodone/APAP 5-325MG 1 EACH TAB PO PRN (21:34)
[2020-10-27] MEDS: IPRATROPIUM-ALBUTEROL 3 ML NEB INHALATION PRN (21:58)
[2020-10-27] MEDS ORDERED: traZODone HCL 100 MG TAB PO PRN (23:41)
[2020-10-28] MEDS: ARIPiprazole 5 MG TAB PO SCH ×2 (00:25→20:02)
[2020-10-28] MEDS: traZODone HCL 50 MG TAB PO PRN ×2 (00:25→20:02)
[2020-10-28 04:49] LABS: % Iron Saturation 11.11 (12.00-45.00)
[2020-10-28] MEDS: LEVOTHYROXINE 100 MCG TAB PO SCH (06:15)
[2020-10-28 07:34] LABS: Glucose,Whole Blood 154 mg/dL (75-99)
[2020-10-28] MEDS ORDERED: SODIUM FERRIC GLUCONAT-SUCROSE 125 MG in SODIUM CHLORIDE 0.9% 100 ML IVPB ONE (08:30)
[2020-10-28] MEDS: IPRATROPIUM-ALBUTEROL 3 ML NEB INHALATION PRN ×4 (09:10→19:35)
[2020-10-28] MEDS: FORMOTEROL FUMARATE 20 MCG/2 ML NEBU INHALATION SCH ×2 (09:10→19:35)
[2020-10-28] MEDS: BUDESONIDE 1 MG/2 ML NEBU INHALATION SCH ×2 (09:10→19:35)
[2020-10-28] MEDS: HYDROcodone/APAP 5-325MG 1 EACH TAB PO PRN ×3 (09:12→22:58)
[2020-10-28] MEDS: ATORVASTATIN 40 MG TAB PO SCH (09:14)
[2020-10-28 11:58] LABS: African American GFR (CKD) 62 (>60 ml/min/1.73 sqM); Anion Gap 8 mmol/L; Blood Urea Nitrogen 51 mg/dL (7-17); Calcium 8.6 mg/dL (8.4-10.2); Carbon Dioxide 22 mmol/L (22-30); Chloride 100 mmol/L (98-107); Glucose 139 mg/dL (74-99); Non-African American GFR(CKD) 54 (>60 ml/min/1.73 sqM); Sodium 130 mmol/L (137-145)
[2020-10-28 12:29] LABS: Glucose,Whole Blood 240 mg/dL (75-99)
[2020-10-28 12:44] LABS: Anisocytosis (M) 2+; Basophils # (A) 0.04 X 10*3/uL (0.00-0.10); Basophils % (A) 0.6 %; Eosinophils # (A) 0.31 X 10*3/uL (0.04-0.35); Eosinophils % (A) 4.4 %; HCT 19.1 % (37.2-46.3); HGB 5.9 g/dL (12.0-15.0); Lymphocytes # (A) 1.04 X 10*3/uL (0.90-5.00); Lymphocytes % (A) 14.7 %; MCH 28.1 pg (27.0-32.0); MCHC 30.9 g/dL (32.0-37.0); Monocytes # (A) 1.02 X 10*3/uL (0.20-1.00); Monocytes % (A) 14.4 %; Neutrophils # (A) 4.56 X 10*3/uL (1.80-7.70); Neutrophils % (A) 64.3 %; Platelet Count 394 X 10*3/uL (140-440); RDW 16.6 % (11.5-14.5); WBC 7.08 X 10*3/uL (4.50-10.00)
--- NOTE | 2020-10-28 13:18 | P.PN ---
Subjective Progress Note Date: 10/28/20 Patient is awake and alert today. Her hemoglobin this morning came back at 5.9. Patient denies any GI bleed. She is having some abdominal pain is not significant. Objective - Vital Signs Vital signs: Vital Signs Temp 98.2 F 10/28/20 11:14 Pulse 80 10/28/20 12:06 Resp 19 10/28/20 11:14 BP 155/75 10/28/20 11:14 Pulse Ox 91 L 10/28/20 11:14 Intake & Output 10/27/20 10/28/20 10/28/20 18:59 06:59 18:59 Weight 68.039 kg Other: # Voids 6 2 # Bowel Movements 0 - Exam General: The patient is awake and alert, in no distress Eye: there is normal conjunctiva bilaterally. Neck: The neck is supple, there is no JVD. Cardiovascular: Normal S1-S2, no S3-S4, no murmurs. Respiratory: Lungs clear to auscultation bilaterally Gastrointestinal: Abdomen is soft, nontender Musculoskeletal: There is no pedal edema. Neurological:. Speech is normal. Skin: Skin is warm and dry - Labs CBC & Chem 7: 10/28/20 06:39 10/28/20 06:39 Labs: Abnormal Lab Results - Last 24 Hours (Table) 10/27/20 10/27/20 10/27/20 Range/Units 14:15 14:21 14:54 WBC 12.7 H (3.8-10.6) k/uL RBC 2.52 L (3.80-5.40) m/uL Hgb 7.0 L (11.4-16.0) gm/dL Hct 21.8 L (34.0-46.0) % MCHC (32.0-37.0) g/dL RDW 17.5 H (11.5-15.5) % Plt Count 497 H (150-450) k/uL MPV (9.5-12.2) fL Immature Gran # (0.00-0.04) X 10*3/uL Neutrophils # 10.8 H (1.3-7.7) k/uL Lymphocytes # 0.9 L (1.0-4.8) k/uL Monocytes # (0.20-1.00) X 10*3/uL Sodium (137-145) mmol/L Chloride (98-107) mmol/L BUN (7-17) mg/dL Creatinine (0.52-1.04) mg/dL Glucose (74-99) mg/dL POC Glucose (mg/dL) (75-99) mg/dL Iron 21 L (50-170) ug/dL TIBC 189 L (228-460) ug/dL % Saturation 11.11 L (12.00-45.00) Alkaline Phosphatase (38-126) U/L Total Protein (6.3-8.2) g/dL Albumin (3.5-5.0) g/dL Urine Appearance Turbid H (Clear) Urine Protein 2+ H (Negative) Urine Glucose (UA) 2+ H (Negative) Urine Blood Moderate H (Negative) Urine Nitrite Positive H (Negative) Urine Bilirubin 1+ H (Negative) Ur Leukocyte Esterase Large H (Negative) Urine RBC 26 H (0-5) /hpf Urine WBC >182 H (0-5) /hpf Urine WBC Clumps Many H (None) /hpf Ur Squamous Epith Cells 10 H (0-4) /hpf Urine Bacteria Many H (None) /hpf 10/27/20 10/27/20 10/28/20 Range/Units 14:54 20:24 06:39 WBC (3.8-10.6) k/uL RBC 2.10 L (3.80-5.40) m/uL Hgb 5.9 L* (11.4-16.0) gm/dL Hct 19.1 L* (34.0-46.0) % MCHC 30.9 L (32.0-37.0) g/dL RDW 16.6 H (11.5-15.5) % Plt Count (150-450) k/uL MPV 9.0 L (9.5-12.2) fL Immature Gran # 0.11 H (0.00-0.04) X 10*3/uL Neutrophils # (1.3-7.7) k/uL Lymphocytes # (1.0-4.8) k/uL Monocytes # 1.02 H (0.20-1.00) X 10*3/uL Sodium 127 L (137-145) mmol/L Chloride 95 L (98-107) mmol/L BUN 54 H (7-17) mg/dL Creatinine 1.10 H (0.52-1.04) mg/dL Glucose 231 H (74-99) mg/dL POC Glucose (mg/dL) 153 H (75-99) mg/dL Iron (50-170) ug/dL TIBC (228-460) ug/dL % Saturation (12.00-45.00) Alkaline Phosphatase 163 H (38-126) U/L Total Protein 5.6 L (6.3-8.2) g/dL Albumin 2.7 L (3.5-5.0) g/dL Urine Appearance (Clear) Urine Protein (Negative) Urine Glucose (UA) (Negative) Urine Blood (Negative) Urine Nitrite (Negative) Urine Bilirubin (Negative) Ur Leukocyte Esterase (Negative) Urine RBC (0-5) /hpf Urine WBC (0-5) /hpf Urine WBC Clumps (None) /hpf Ur Squamous Epith Cells (0-4) /hpf Urine Bacteria (None) /hpf 10/28/20 10/28/20 10/28/20 Range/Units 06:39 07:29 12:26 WBC (3.8-10.6) k/uL RBC (3.80-5.40) m/uL Hgb (11.4-16.0) gm/dL Hct (34.0-46.0) % MCHC (32.0-37.0) g/dL RDW (11.5-15.5) % Plt Count (150-450) k/uL MPV (9.5-12.2) fL Immature Gran # (0.00-0.04) X 10*3/uL Neutrophils # (1.3-7.7) k/uL Lymphocytes # (1.0-4.8) k/uL Monocytes # (0.20-1.00) X 10*3/uL Sodium 130 L (137-145) mmol/L Chloride (98-107) mmol/L BUN 51 H (7-17) mg/dL Creatinine 1.05 H (0.52-1.04) mg/dL Glucose 139 H (74-99) mg/dL POC Glucose (mg/dL) 154 H 240 H (75-99) mg/dL Iron (50-170) ug/dL TIBC (228-460) ug/dL % Saturation (12.00-45.00) Alkaline Phosphatase (38-126) U/L Total Protein (6.3-8.2) g/dL Albumin (3.5-5.0) g/dL Urine Appearance (Clear) Urine Protein (Negative) Urine Glucose (UA) (Negative) Urine Blood (Negative) Urine Nitrite (Negative) Urine Bilirubin (Negative) Ur Leukocyte Esterase (Negative) Urine RBC (0-5) /hpf Urine WBC (0-5) /hpf Urine WBC Clumps (None) /hpf Ur Squamous Epith Cells (0-4) /hpf Urine Bacteria (None) /hpf Microbiology - Last 24 Hours (Table) 10/27/20 14:21 Urine Culture - Preliminary Urine,Voided Assessment and Plan Assessment: This is a 70-year-old female with past medical history noted below who presented to the emergency room with worsening urinary frequency and dysuria. Patient was evaluated in the ER and currently admitted to the hospital for further management of her medical problems noted below. 1. Recurrent UTI, failed outpatient management. Patient had multiple antibiotic ALLERGIES. Discussed with pharmacy. Started on Levaquin awaiting urine culture. Bladder scan showed no evidence of retention. Kidney ultrasound showed no hydronephrosis or evidence of kidney stone. 2. Acute on chronic anemia, iron deficiency. Asymptomatic. Patient will receive 1 unit of PRBC today for hemoglobin of 5.9. Also received one-time dose of IV iron this morning. Probably secondary to chronic blood loss with history of prior AVMs status post cauterization most recently in May 2020. No evidence of active bleeding. I will consult Dr. Singh for further evaluation 3. Hypovolemic hyponatremia: Improved with IV fluid hydration 4. Chronic medical problems, essential hypertension, hyperlipidemia, multiple blood transfusions in the past 5. DVT prophylaxis with SCD
[2020-10-28] MEDS: PANTOPRAZOLE 40 MG/10 ML VIAL IVP SCH (15:07)
[2020-10-28 17:14] LABS: Glucose,Whole Blood 320 mg/dL (75-99)
[2020-10-28 20:38] LABS: Glucose,Whole Blood 320 mg/dL (75-99)
[2020-10-28 22:45] LABS: Glucose,Whole Blood 295 mg/dL (75-99)
[2020-10-28] MEDS: INSULIN ASPART (NovoLOG) 100 UNIT/ML VIAL SQ SCH (22:58)
[2020-10-28] MEDS: ESCITALOPRAM 20 MG TAB PO SCH (23:05)
[2020-10-28] MEDS ORDERED: diphenhydrAMINE 50 MG/ML 1 ML VIAL IVP PRN (23:28)
[2020-10-29] MEDS: LEVOTHYROXINE 100 MCG TAB PO SCH (05:22)
[2020-10-29 06:34] LABS: Anisocytosis Slight; Basophils % (A) 0 %; Eosinophils # (A) 0.3 k/uL (0-0.7); Eosinophils % (A) 3 %; HCT 24.7 % (34.0-46.0); HGB 8.1 gm/dL (11.4-16.0); Lymphocytes # (A) 0.7 k/uL (1.0-4.8); Lymphocytes % (A) 8 %; MCH 28.9 pg (25.0-35.0); MCV 87.8 fL (80.0-100.0); Mean Platelet Volume 6.7; Monocytes # (A) 0.6 k/uL (0-1.0); Monocytes % (A) 7 %; Neutrophils # (A) 6.9 k/uL (1.3-7.7); Neutrophils % (A) 80 %; Platelet Count 438 k/uL (150-450); Poikilocytosis Slight; RBC 2.81 m/uL (3.80-5.40); RDW 16.9 % (11.5-15.5); WBC 8.7 k/uL (3.8-10.6)
[2020-10-29 07:21] LABS: Glucose,Whole Blood 134 mg/dL (75-99)
[2020-10-29] MEDS: HYDROcodone/APAP 5-325MG 1 EACH TAB PO PRN ×3 (07:47→20:40)
[2020-10-29] MEDS: INSULIN ASPART (NovoLOG) 100 UNIT/ML VIAL SQ SCH ×4 (07:54→22:00)
[2020-10-29] MEDS: ATORVASTATIN 40 MG TAB PO SCH (07:55)
[2020-10-29] MEDS: PANTOPRAZOLE 40 MG/10 ML VIAL IVP SCH (07:55)
[2020-10-29] MEDS: ESCITALOPRAM 20 MG TAB PO SCH (07:55)
[2020-10-29] MEDS: FORMOTEROL FUMARATE 20 MCG/2 ML NEBU INHALATION SCH ×2 (08:29→20:06)
[2020-10-29] MEDS: BUDESONIDE 1 MG/2 ML NEBU INHALATION SCH ×2 (08:29→20:06)
[2020-10-29] MEDS: IPRATROPIUM-ALBUTEROL 3 ML NEB INHALATION PRN ×4 (08:29→20:06)
[2020-10-29 11:36] LABS: Glucose,Whole Blood 252 mg/dL (75-99)
--- NOTE | 2020-10-29 15:47 | P.PN ---
Subjective Progress Note Date: 10/29/20 Patient is awake and alert. No acute events overnight. Hemoglobin stable this morning. No evidence of ongoing GI bleed. Objective - Vital Signs Vital signs: Vital Signs Temp 98.1 F 10/29/20 11:30 Pulse 68 10/29/20 12:17 Resp 19 10/29/20 11:30 BP 123/50 10/29/20 11:30 Pulse Ox 93 L 10/29/20 11:30 Intake & Output 10/28/20 10/29/20 10/29/20 18:59 06:59 18:59 Intake Total 100 310 240 Balance 100 310 240 Intake: Intake, IV Titration 100 Amount Sodium Ferric Gluconat- 100 Sucrose 125 mg In Sodium Chloride 0.9% 100 ml @ 100 mls/hr IVPB ONCE ONE Rx#:[id number] Oral 240 Blood Product 0 310 Rc As-1 Unit 0 310 [id number] Other: # Voids 2 1 2 # Bowel Movements 0 - Exam General: The patient is awake and alert, in no distress Eye: there is normal conjunctiva bilaterally. Neck: The neck is supple, there is no JVD. Cardiovascular: Normal S1-S2, no S3-S4, no murmurs. Respiratory: Lungs clear to auscultation bilaterally Gastrointestinal: Abdomen is soft, nontender Musculoskeletal: There is no pedal edema. Neurological:. Speech is normal. Skin: Skin is warm and dry - Labs CBC & Chem 7: 10/29/20 05:32 10/28/20 06:39 Labs: Abnormal Lab Results - Last 24 Hours (Table) 10/28/20 10/28/20 10/28/20 Range/Units 13:21 17:11 20:37 RBC (3.80-5.40) m/uL Hgb (11.4-16.0) gm/dL Hct (34.0-46.0) % RDW (11.5-15.5) % Lymphocytes # (1.0-4.8) k/uL POC Glucose (mg/dL) 320 H 320 H (75-99) mg/dL Crossmatch See Detail 10/28/20 10/29/20 10/29/20 Range/Units 22:43 05:32 07:18 RBC 2.81 L (3.80-5.40) m/uL Hgb 8.1 L (11.4-16.0) gm/dL Hct 24.7 L (34.0-46.0) % RDW 16.9 H (11.5-15.5) % Lymphocytes # 0.7 L (1.0-4.8) k/uL POC Glucose (mg/dL) 295 H 134 H (75-99) mg/dL Crossmatch 10/29/20 Range/Units 11:30 RBC (3.80-5.40) m/uL Hgb (11.4-16.0) gm/dL Hct (34.0-46.0) % RDW (11.5-15.5) % Lymphocytes # (1.0-4.8) k/uL POC Glucose (mg/dL) 252 H (75-99) mg/dL Crossmatch Microbiology - Last 24 Hours (Table) 10/27/20 14:21 Urine Culture - Preliminary Urine,Voided Gram Neg Bacilli 10/27/20 14:57 Blood Culture - Preliminary Blood No Growth after 24 hours Assessment and Plan Assessment: This is a 70-year-old female with past medical history noted below who presented to the emergency room with worsening urinary frequency and dysuria. Patient was evaluated in the ER and currently admitted to the hospital for further management of her medical problems noted below. 1. Recurrent UTI, failed outpatient management. Patient had multiple antibiotic ALLERGIES. Discussed with pharmacy. Started on Levaquin day #3 awaiting urine culture. Bladder scan showed no evidence of retention. Kidney ultrasound showed no hydronephrosis or evidence of kidney stone. 2. Acute on chronic anemia, iron deficiency. Asymptomatic. Patient received 1 unit of PRBC for hemoglobin of 5.9 during this admission. Also received one- time dose of IV iron. Probably secondary to chronic blood loss with history of prior AVMs status post cauterization most recently in May 2020. No evidence of active bleeding. I consulted Dr. Singh for further evaluation and plan for possible EGD on Sunday 3. Hypovolemic hyponatremia: Improved with IV fluid hydration 4. Chronic medical problems, essential hypertension, hyperlipidemia, multiple blood transfusions in the past 5. DVT prophylaxis with SCD
--- NOTE | 2020-10-29 15:47 | P.CONS ---
History of Present Illness - Reason for Consult Consult date: 10/29/20 Anemia, history of AVMs Requesting physician: Lyle Hoffman - Chief Complaint Urinary frquency and dysuria - History of Present Illness This is a pleasant 70-year-old female with multiple comorbidities including GI bleed, anemia, asthma, COPD, diabetes mellitus, hyperlipidemia, hypertension, thyroid disorder and obesity. Sent it to the emergency department with worsening urinary frequency and dysuria. She states that her symptoms that started a couple weeks ago and getting worse. She was recently diagnosed with a urinary tract infection and just finished course of antibiotics without feeling any improvement. The patient denies any fevers or chills. She denies any abdominal pain, nausea, or vomiting. She was found to have a hemoglobin on admission of 5.9. She has a history of acute blood loss anemia, and has received 11 transfusions since February 2020. Previously she had undergone endoscopic evaluation on 2 occasions in 04/2020 initially with findings of duodenal ulcers on repeat EGD the patient was found to have a healing duodenal ulcer with bleeding angiodysplasia in the second part of the duodenum which was treated with cautery. She presented back a third occasion at that time had EGD with cautery using Gold probe ablation of a duodenal AVM as well as colonoscopy with cautery of cecal angiodysplasia as well as Endo Clip placement, and was also noted to have diverticulosis at that time. Os recently she had a push enteroscopy with Gold probe ablation in June 2020 with findings of 3 small bowel AVM mid third and fourth portion of the duodenum and treated with cold probe ablation. There was no active bleeding or old blood noted up to 75 cm post pylorus. There was a well healing duodenal ulcer. She is status post 1 unit of PRBC transfusion yesterday with a repeat hemoglobin today is 8.1. The patient is denying any signs of GI bleed including melena, hematochezia, or hematemesis. 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, Denies chronic pain, Denies daytime sleepiness, Denies fatigue, Denies fever, Denies lethargy, Denies malaise, Denies night sweats, Denies poor appetite, Denies sweats, Denies weakness, Denies weight gain, Denies weight loss Cardiovascular: Denies chest pain, Denies shortness of breath Respiratory: Denies cough Gastrointestinal: Reports as per HPI, Denies abdominal pain, Denies belching, Denies bloating, Denies BRBPR, Denies change in bowel habits, Denies constipation, Denies diarrhea, Denies dyspepsia, Denies early satiety, Denies excessive gas, Denies heartburn, Denies hematochezia, Denies indigestion, Denies jaundice, Denies lactose intolerance, Denies loss of appetite, Denies melena, Denies nausea, Denies vomiting Genitourinary: Reports dysuria, Reports urinary frequency Past Medical History Past Medical History: Asthma, Chest Pain / Angina, COPD, Diabetes Mellitus, Hyperlipidemia, Hypertension, Osteoarthritis (OA), Respiratory Disorder, Skin Disorder, Thyroid Disorder Additional Past Medical History / Comment(s): Obesity (BMI 35) COPD, asthma, diabetes , depression, 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 The patient is also a recently quit smoker. The patient has chronic back pain. History of Any Multi-Drug Resistant Organisms: None Reported Past Surgical History: Appendectomy, Section, Cholecystectomy, Orthopedic Surgery, Tubal Ligation Additional Past Surgical History / Comment(s): LASER SX JETHRO EYES FOR GLAUCOMA. RT KNEE ARTHROSCOPY. UNDERWENT PERCUTANEOUS NEPHROSTOLITHOTOMY Past Anesthesia/Blood Transfusion Reactions: No Reported Reaction Past Psychological History: Anxiety, Depression Additional Psychological History / Comment(s): pt stated maintained by meds. and lives with adult son. 2 adult children. 2 dogs and 6 cats in the home, they rescue. Ongoing tobacco use but denied alcohol use or recreational drug use. Does not work outside of the home. No experience. No travel history Smoking Status: Former smoker Past Alcohol Use History: None Reported Additional Past Alcohol Use History / Comment(s): Patient states she no longer smokes, started smoking in 1968. She denies any marijuana, illicit drug use or alcohol use. She is and lives at home with her . There are 2 dogs and 2 cats in the home. No service and no travel history. Past Drug Use History: None Reported - Past Family History Mother Additional Family Medical History / Comment(s): emphysema, heart valve problems, in her slepp. Brother(s) Family Medical History: Cancer Additional Family Medical History / Comment(s): from oral cancer Father Brother(s) Family Medical History: Cancer Additional Family Medical History / Comment(s): heart disease Medications and Allergies Home Medications Medication Instructions Recorded Confirmed Type Zafirlukast [Accolate] 20 mg PO BID 02/06/14 10/27/20 History ARIPiprazole [Abilify] 5 mg PO HS 02/07/18 10/27/20 History metFORMIN HCL [Glucophage] 1,000 mg PO BID-W/MEALS 02/07/18 10/27/20 History Atorvastatin [Lipitor] 40 mg PO DAILY #30 tab 09/10/18 10/27/20 Rx Cholecalciferol [Vitamin D3 (25 1,000 unit PO DAILY 09/03/19 10/27/20 History Mcg = 1000 Iu)] Levothyroxine Sodium [Synthroid] 200 mcg PO DAILY 09/03/19 10/27/20 History Albuterol Sulfate [Ventolin HFA] 1 - 2 puff INHALATION RT-Q6H PRN 03/11/20 10/27/20 History Escitalopram [Lexapro] 20 mg PO DAILY 03/11/20 10/27/20 History Budesonide [Pulmicort] 1 mg INHALATION RT-BID ml 03/27/20 10/27/20 Rx Formoterol Fumarate [Perforomist] 20 mcg INHALATION RT-BID nebu 03/27/20 10/27/20 Rx HYDROcodone/APAP 7.5-325MG [Cheney 1 tab PO Q6H PRN #12 tab 03/27/20 10/27/20 Rx 7.5-325] Ipratropium-Albuterol Nebulize 3 ml INHALATION RT-Q2H PRN ml 03/27/20 10/27/20 Rx [Duoneb 0.5 mg-3 mg/3 ml Soln] Pantoprazole Sodium [Protonix] 40 mg PO BID #60 tablet. 03/27/20 10/27/20 Rx Furosemide [Lasix] 40 mg PO DAILY 04/27/20 10/27/20 History Magnesium Oxide [Mag-Ox] 400 mg PO DAILY #30 tablet 04/27/20 10/27/20 Rx traZODone HCL 100 mg PO HS PRN 05/15/20 10/27/20 History Lisinopril [Zestril] 10 mg PO DAILY 05/28/20 10/27/20 History Allergies Allergy/AdvReac Type Severity Reaction Status Date / Time adhesive Allergy Rash/Hives Verified 10/27/20 15:41 ciprofloxacin [From Cipro] Allergy Rash/Hives Verified 10/27/20 15:41 ciprofloxacin HCl Allergy Rash/Hives Verified 10/27/20 15:41 [From Cipro] latex Allergy Rash/Hives Verified 10/27/20 15:41 nitrofurantoin Allergy Rash/Hives Verified 10/27/20 15:41 [From Macrobid] nitrofurantoin Allergy Rash/Hives Verified 10/27/20 15:41 macrocrystalline [From Macrobid] Penicillins Allergy Rash/Hives Verified 10/27/20 15:41 propoxyphene HCl Allergy Rash/Hives Verified 10/27/20 15:41 [From Darvon] propoxyphene napsylate Allergy Unknown Verified 10/27/20 15:41 [From Darvocet-N] Physical Exam Vitals: Vital Signs Temp Pulse Pulse Resp BP BP Pulse Ox 10/29/20 12:17 68 10/29/20 12:07 64 10/29/20 11:30 98.1 F 67 19 123/50 93 L 10/29/20 08:55 76 10/29/20 08:45 76 10/29/20 08:44 76 10/29/20 08:29 72 10/29/20 08:00 62 19 10/29/20 05:00 97.7 F 64 19 138/70 97 10/28/20 21:05 98.2 F 89 18 162/61 10/28/20 21:00 98.2 F 89 18 162/61 93 L 10/28/20 19:51 96 10/28/20 19:41 99 10/28/20 19:40 99 10/28/20 19:36 93 10/28/20 17:30 93 18 153/63 92 L 10/28/20 17:00 98.2 F 71 16 129/56 93 L 10/28/20 16:50 97.9 F 72 128/53 94 L 10/28/20 16:43 72 10/28/20 16:31 72 Intake and Output 10/29/20 10/29/20 10/29/20 06:59 14:59 22:59 Other: # Voids 2 General appearance: The patient is alert, oriented, appears in no acute distress. Obese. HET: Head is normocephalic and atraumatic. Conjunctiva pink. Sclera anicteric. Neck: Supple without lymphadenopathy. Abdomen: Soft, obese, nontender, nondistended with bowel sounds. No guarding or rigidity. Extremities: Normal skin color and turgor. No pedal edema Skin: No rashes, no jaundice Neurological: No focal deficits. Alert and oriented 3. Results CBC & Chem 7: 10/29/20 05:32 10/28/20 06:39 Labs: Abnormal Lab Results - Last 24 Hours (Table) 10/28/20 10/28/20 10/28/20 Range/Units 13:21 17:11 20:37 RBC (3.80-5.40) m/uL Hgb (11.4-16.0) gm/dL Hct (34.0-46.0) % RDW (11.5-15.5) % Lymphocytes # (1.0-4.8) k/uL POC Glucose (mg/dL) 320 H 320 H (75-99) mg/dL Crossmatch See Detail 10/28/20 10/29/20 10/29/20 Range/Units 22:43 05:32 07:18 RBC 2.81 L (3.80-5.40) m/uL Hgb 8.1 L (11.4-16.0) gm/dL Hct 24.7 L (34.0-46.0) % RDW 16.9 H (11.5-15.5) % Lymphocytes # 0.7 L (1.0-4.8) k/uL POC Glucose (mg/dL) 295 H 134 H (75-99) mg/dL Crossmatch 10/29/20 Range/Units 11:30 RBC (3.80-5.40) m/uL Hgb (11.4-16.0) gm/dL Hct (34.0-46.0) % RDW (11.5-15.5) % Lymphocytes # (1.0-4.8) k/uL POC Glucose (mg/dL) 252 H (75-99) mg/dL Crossmatch Microbiology - Last 24 Hours (Table) 10/27/20 14:21 Urine Culture - Preliminary Urine,Voided Gram Neg Bacilli 10/27/20 14:57 Blood Culture - Preliminary Blood No Growth after 24 hours Assessment and Plan (1) Anemia Narrative/Plan: This is a 70-year-old female with multiple medical comorbidities who presented to the hospital for evaluation of dysuria and urinary frequency. She recently was diagnosed and treated for urinary tract infection with no improvement. Upon her admission evaluation she was found to be anemic with a hemoglobin of 5.9. She has a history of acute blood loss anemia, and has received 11 transfusions since February 2020. Previously she had undergone endoscopic evaluation on 2 occasions in 04/2020 initially with findings of duodenal ulcers on repeat EGD the patient was found to have a healing duodenal ulcer with bleeding angiodysplasia in the second part of the duodenum which was treated with cautery. She presented back a third occasion at that time had EGD with cautery using Gold probe ablation of a duodenal AVM as well as colonoscopy with cautery of cecal angiodysplasia as well as Endo Clip placement, and was also noted to have div erticulosis at that time. Os recently she had a push enteroscopy with Gold probe ablation in June 2020 with findings of 3 small bowel AVM mid third and fourth portion of the duodenum and treated with cold probe ablation. There was no active bleeding or old blood noted up to 75 cm post pylorus. There was a well healing duodenal ulcer. She is status post 1 unit of PRBC transfusion yesterday with a repeat hemoglobin today is 8.1. The patient is denying any signs of GI bleed including melena, hematochezia, or hematemesis. However, there is high suspicion for recurrent bleeding from gastrointestinal angiodysplasia. Discussed with patient possible need for upper and lower endoscopies, patient voiced not wanting to proceed unless absolutely necessary as she states she is not having any signs of bleeding. Will keep on a clear liquid diet, repeat CBC in the morning. Transfuse for hemoglobin less than 7. Current Visit: Yes Status: Acute Code(s): D64.9 - ANEMIA, UNSPECIFIED SNOMED Code(s): 806804530 (2) History of angiodysplasia of intestinal tract Current Visit: Yes Status: Acute Code(s): Z87.19 - PERSONAL HISTORY OF OTHER DISEASES OF THE DIGESTIVE SYSTEM SNOMED Code(s): 533872823 (3) Pyelonephritis Narrative/Plan: Continue IV antibiotics as ordered per medicine team Current Visit: Yes Status: Acute Code(s): N12 - TUBULO-INTERSTITIAL NEPHRITIS, NOT SPCF ACUTE OR CHRONIC SNOMED Code(s): 26487648 (4) Urinary tract infection Current Visit: Yes Status: Acute Code(s): N39.0 - URINARY TRACT INFECTION, SITE NOT SPECIFIED SNOMED Code(s): 06941155 Plan: 1. Supportive care 2. Consistent carbohydrate diet will change to clear liquid diet tomorrow 3. Repeat CBC in a.m., transfuse for hemoglobin less than 7 4. Continue to monitor for signs and symptoms of GI bleed 5. If any signs of GI bleed or drop in hemoglobin would recommend endoscopic evaluation Thank you for this consultation, we will continue to follow. Dr. Christina Kessler I agree with the dictator's note, documented as a scribe by Cammie Monreal.
[2020-10-29] MEDS: LEVOFLOXACIN 250MG-D5W PMX 250 MG in DEXTROSE/WATER 1 50ML.BAG IVPB SCH ×2 (16:37)
[2020-10-29 16:55] LABS: Glucose,Whole Blood 209 mg/dL (75-99)
[2020-10-29] MEDS: diphenhydrAMINE 50 MG/ML 1 ML VIAL IVP PRN (17:11)
[2020-10-29] MEDS: glipiZIDE 5 MG TAB PO SCH (17:15)
[2020-10-29] MEDS: ARIPiprazole 5 MG TAB PO SCH (20:41)
[2020-10-29 20:53] LABS: Glucose,Whole Blood 184 mg/dL (75-99)
[2020-10-29] MEDS: traZODone HCL 50 MG TAB PO PRN (22:00)
[2020-10-30] MEDS: LEVOTHYROXINE 100 MCG TAB PO SCH (06:28)
[2020-10-30 07:19] LABS: Glucose,Whole Blood 121 mg/dL (75-99)
[2020-10-30] MEDS: BUDESONIDE 1 MG/2 ML NEBU INHALATION SCH ×2 (07:42→19:55)
[2020-10-30] MEDS: IPRATROPIUM-ALBUTEROL 3 ML NEB INHALATION PRN ×4 (07:42→19:55)
[2020-10-30 07:58] LABS: Anisocytosis Slight; Basophils % (A) 0 %; Eosinophils # (A) 0.2 k/uL (0-0.7); Eosinophils % (A) 2 %; HCT 24.6 % (34.0-46.0); Lymphocytes # (A) 0.8 k/uL (1.0-4.8); Lymphocytes % (A) 8 %; MCH 28.4 pg (25.0-35.0); MCHC 32.6 g/dL (31.0-37.0); MCV 87.3 fL (80.0-100.0); Mean Platelet Volume 7.1; Monocytes # (A) 0.7 k/uL (0-1.0); Monocytes % (A) 7 %; Neutrophils # (A) 7.9 k/uL (1.3-7.7); Neutrophils % (A) 80 %; Platelet Count 420 k/uL (150-450); RBC 2.82 m/uL (3.80-5.40); RDW 16.6 % (11.5-15.5); WBC 9.9 k/uL (3.8-10.6)
[2020-10-30 08:32] LABS: African American GFR (CKD) >90 (>60 ml/min/1.73 sqM); Anion Gap 7 mmol/L; Blood Urea Nitrogen 22 mg/dL (7-17); Calcium 8.5 mg/dL (8.4-10.2); Carbon Dioxide 22 mmol/L (22-30); Chloride 105 mmol/L (98-107); Glucose 119 mg/dL (74-99); Non-African American GFR(CKD) 86 (>60 ml/min/1.73 sqM); Potassium 4.8 mmol/L (3.5-5.1); Sodium 134 mmol/L (137-145)
[2020-10-30] MEDS: INSULIN ASPART (NovoLOG) 100 UNIT/ML VIAL SQ SCH ×4 (08:49→20:56)
[2020-10-30] MEDS: ESCITALOPRAM 20 MG TAB PO SCH (08:52)
[2020-10-30] MEDS: glipiZIDE 5 MG TAB PO SCH ×2 (08:52→17:48)
[2020-10-30] MEDS: ATORVASTATIN 40 MG TAB PO SCH (08:52)
[2020-10-30] MEDS: HYDROcodone/APAP 5-325MG 1 EACH TAB PO PRN ×4 (08:53→20:56)
[2020-10-30] MEDS: PANTOPRAZOLE 40 MG/10 ML VIAL IVP SCH (09:00)
[2020-10-30] MEDS: FORMOTEROL FUMARATE 20 MCG/2 ML NEBU INHALATION SCH ×2 (09:02→19:55)
--- NOTE | 2020-10-30 09:37 | PN ---
PROGRESS NOTE DATE OF DICTATION: October 30, 2020 Patient is a 70-year-old pleasant white female admitted to the hospital with severe symptomatic anemia with a hemoglobin of 5.9, requiring 2 units of PRBC transfusion. Repeat hemoglobin is 8 g/dL. She denies any abdominal pain. Reports no nausea, vomiting. No rectal bleeding or melena. Repeat hemoglobin today is 8 g/dL. PHYSICAL EXAMINATION: She appears comfortable. No apparent distress. VITAL SIGNS: Stable. Blood pressure is 155/86, pulse rate 77, temperature 99.1. HEENT examination unremarkable. Conjunctivae pink. Sclerae anicteric. Oral cavity no lesions. Neck no JVD or lymph node enlargement. CHEST was clear to auscultation. HEART: Regular rate and rhythm. ABDOMEN: Soft, it was nontender, nondistended. Bowel sounds are positive. No organomegaly. EXTREMITIES: No pedal edema. NEURO: She is alert and oriented x3. No focal deficits. LABS: WBC 9.9, hemoglobin 8, platelets normal. BUN 22, creatinine 0.71. IMPRESSION: 1. Recurrent anemia secondary to occult gastrointestinal blood loss. The patient had multiple endoscopies/enteroscopies over the last 7 months duration. She was noted to have any angiodysplasia of the duodenum and jejunum that were cauterized. The last one was performed in May of 2020. She now presents with severe anemia with a hemoglobin of 5.9 requiring 2 units of PRBC transfusion. Repeat hemoglobin is 8 g/dL. Clinically no evidence of active ongoing bleeding. 2. History of hypertension. 3. History of hypercholesteremia. 4. Chronic obstructive pulmonary disease. 5. Diabetes mellitus. RECOMMENDATIONS: 1. Advance diet as tolerated. 2. Continue Protonix 40 mg daily. 3. We will proceed with EGD tomorrow. Discussed with the patient risks, benefits and complications and she is agreeable to it. Thank you for this consultation. MMODL / IJN: [id number] /
[2020-10-30 11:39] LABS: Glucose,Whole Blood 276 mg/dL (75-99)
--- NOTE | 2020-10-30 12:22 | P.PN ---
Subjective Progress Note Date: 10/30/20 Patient was resting this morning. No acute events overnight. Hemoglobin stable. No evidence of GI bleed. Objective - Vital Signs Vital signs: Vital Signs Temp 99.1 F 10/30/20 05:00 Pulse 76 10/30/20 11:10 Resp 16 10/30/20 05:00 BP 155/68 10/30/20 05:00 Pulse Ox 96 10/30/20 05:00 Intake & Output 10/29/20 10/30/20 10/30/20 18:59 06:59 18:59 Intake Total 1010 590 Balance 1010 590 Intake: Intake, IV Titration 50 Amount Levofloxacin 250Mg-D5w 50 Pmx 250 mg In Dextrose/ Water 1 50ml.bag @ 50 mls /hr IVPB Q24H KIET Rx#: [id number] Oral 960 590 Other: # Voids 6 3 - Exam General: The patient is awake and alert, in no distress Eye: there is normal conjunctiva bilaterally. Neck: The neck is supple, there is no JVD. Cardiovascular: Normal S1-S2, no S3-S4, no murmurs. Respiratory: Lungs clear to auscultation bilaterally Gastrointestinal: Abdomen is soft, nontender Musculoskeletal: There is no pedal edema. Neurological:. Speech is normal. Skin: Skin is warm and dry - Labs CBC & Chem 7: 10/30/20 07:46 10/30/20 07:46 Labs: Abnormal Lab Results - Last 24 Hours (Table) 10/29/20 10/29/20 10/30/20 Range/Units 16:54 20:51 07:18 RBC (3.80-5.40) m/uL Hgb (11.4-16.0) gm/dL Hct (34.0-46.0) % RDW (11.5-15.5) % Neutrophils # (1.3-7.7) k/uL Lymphocytes # (1.0-4.8) k/uL Sodium (137-145) mmol/L BUN (7-17) mg/dL Glucose (74-99) mg/dL POC Glucose (mg/dL) 209 H 184 H 121 H (75-99) mg/dL 10/30/20 10/30/20 10/30/20 Range/Units 07:46 07:46 11:36 RBC 2.82 L (3.80-5.40) m/uL Hgb 8.0 L (11.4-16.0) gm/dL Hct 24.6 L (34.0-46.0) % RDW 16.6 H (11.5-15.5) % Neutrophils # 7.9 H (1.3-7.7) k/uL Lymphocytes # 0.8 L (1.0-4.8) k/uL Sodium 134 L (137-145) mmol/L BUN 22 H (7-17) mg/dL Glucose 119 H (74-99) mg/dL POC Glucose (mg/dL) 276 H (75-99) mg/dL Microbiology - Last 24 Hours (Table) 10/27/20 14:21 Urine Culture - Final Urine,Voided Escherichia coli 10/27/20 14:57 Blood Culture - Preliminary Blood No Growth after 48 hours Assessment and Plan Assessment: This is a 70-year-old female with past medical history noted below who presented to the emergency room with worsening urinary frequency and dysuria. Patient was evaluated in the ER and currently admitted to the hospital for further management of her medical problems noted below. 1. Recurrent UTI, failed outpatient management. Patient had multiple antibiotic ALLERGIES. Discussed with pharmacy. Started on Levaquin day #4. Urine culture grew E. coli susceptible to Levaquin. Bladder scan showed no evidence of retention. Kidney ultrasound showed no hydronephrosis or evidence of kidney stone. 2. Acute on chronic anemia, iron deficiency. Asymptomatic. Patient received 1 unit of PRBC for hemoglobin of 5.9 during this admission. Also received one- time dose of IV iron. Probably secondary to chronic blood loss with history of prior AVMs status post cauterization most recently in May 2020. Patient also had a history of duodenal ulcers. No evidence of active bleeding. I consulted Dr. Singh for further evaluation and plan for repeat EGD tomorrow 3. Hypovolemic hyponatremia: Improved with IV fluid hydration 4. Chronic medical problems, essential hypertension, hyperlipidemia, multiple blood transfusions in the past 5. DVT prophylaxis with SCD
[2020-10-30] MEDS: diphenhydrAMINE 50 MG/ML 1 ML VIAL IVP PRN (15:43)
[2020-10-30] MEDS: LEVOFLOXACIN 250MG-D5W PMX 250 MG in DEXTROSE/WATER 1 50ML.BAG IVPB SCH (15:45)
[2020-10-30 17:13] LABS: Glucose,Whole Blood 115 mg/dL (75-99)
[2020-10-30 20:16] LABS: Glucose,Whole Blood 271 mg/dL (75-99)
[2020-10-30] MEDS: ARIPiprazole 5 MG TAB PO SCH (20:56)
[2020-10-30] MEDS: traZODone HCL 50 MG TAB PO PRN (20:56)
[2020-10-31] MEDS: LEVOTHYROXINE 100 MCG TAB PO SCH (06:29)
[2020-10-31 07:41] LABS: Glucose,Whole Blood 125 mg/dL (75-99)
[2020-10-31 07:52] VITALS: RESP 17
[2020-10-31] MEDS: IPRATROPIUM-ALBUTEROL 3 ML NEB INHALATION PRN (08:14)
[2020-10-31] MEDS: BUDESONIDE 1 MG/2 ML NEBU INHALATION SCH (08:15)
[2020-10-31] MEDS: FORMOTEROL FUMARATE 20 MCG/2 ML NEBU INHALATION SCH (08:15)
[2020-10-31] MEDS ORDERED: PROPOFOL 10 MG/ML 20 ML VIAL IV ONE (08:45)
[2020-10-31] MEDS ORDERED: SODIUM CHLORIDE 0.9% 500 ML 500 ML IV ONE ×2 (08:48)
[2020-10-31 09:00] LABS: Basophils # (A) 0.03 X 10*3/uL (0.00-0.10); Basophils % (A) 0.4 %; Eosinophils # (A) 0.25 X 10*3/uL (0.04-0.35); HCT 22.9 % (37.2-46.3); HGB 7.1 g/dL (12.0-15.0); Lymphocytes # (A) 1.23 X 10*3/uL (0.90-5.00); MCH 28.3 pg (27.0-32.0); MCV 91.2 fL (80.0-97.0); Mean Platelet Volume 8.6 fL (9.5-12.2); Monocytes # (A) 0.95 X 10*3/uL (0.20-1.00); Monocytes % (A) 11.6 %; Neutrophils # (A) 5.67 X 10*3/uL (1.80-7.70); Neutrophils % (A) 68.9 %; Platelet Count 394 X 10*3/uL (140-440); RBC 2.51 X 10*6/uL (4.10-5.20); RDW 16.2 % (11.5-14.5); WBC 8.22 X 10*3/uL (4.50-10.00)
--- NOTE | 2020-10-31 09:02 | P.PCN ---
Date of Procedure: 10/31/20 Procedure(s) Performed: BRIEF HISTORY: Patient is a 70-year-old, pleasant, white female admitted hospital with severe symptomatic anemia and hemoglobin of 6 g/dL requiring unit of PRBC transfusion. She had multiple EGD/enteroscopy in late part of last year the last one in June 2020 and was noted to have duodenal angiectasia that they cauterized. She is scheduled for an upper endoscopy to evaluate further today. PROCEDURE PERFORMED: Esophagogastroduodenoscopy with cautery using a gold probe. PREOPERATIVE DIAGNOSIS: Severe symptomatic anemia and history of duodenal AVMs. IV sedation per anesthesia. PROCEDURE: After informed consent was obtained, the patient was brought into the endoscopy unit. IV sedation was administered by Anesthesia under continuous monitoring. Initially the Olympus GIF-140 video endoscope was inserted into the mouth. Esophagus intubated without any difficulty. It was gradually advanced into the stomach and duodenum and carefully examined. The second part of the duodenum appeared normal. In the duodenal bulb there was a 1 cm superficial ulceration identified with friable margins but no active bleeding and cautery was performed using a gold probe. The scope at this time was withdrawn to the stomach, adequately insufflated with air, and upon careful examination, mucosa of the antrum, body, had 2 nonbleeding angiectasia which were cauterized using a gold probe. cardia and the fundus appeared normal. The scope was then withdrawn into the esophagus. The GE junction was located at 39 cm from the incisors. The esophagus appeared normal. There were no erosions or ulcerations seen and the patient tolerated the procedure well. IMPRESSION: 1. 1 cm superficial duodenal bulbar ulcer with friable margins status post cautery using a gold probe. 2. 2 small gastric angiectasia with no active bleeding status post cautery. RECOMMENDATIONS: The findings of this examination were discussed with the patient . Diet will be advanced as tolerated. If the hemoglobin remains stable she can be discharged home today with outpatient follow-up in 2 weeks..
[2020-10-31] MEDS: INSULIN ASPART (NovoLOG) 100 UNIT/ML VIAL SQ SCH (09:05)
[2020-10-31] MEDS: glipiZIDE 5 MG TAB PO SCH (09:06)
[2020-10-31 09:30] LABS: Anion Gap 5.7 mmol/L (4.00-12.00); BUN/Creat Ratio 26.25 Ratio (12.00-20.00); Calcium 8.2 mg/dL (8.7-10.3); Carbon Dioxide 23.3 mmol/L (21.6-31.8); Non-African American GFR(CKD) 74.2 (60.0-200.0); Potassium 4.6 mmol/L (3.5-5.5)
[2020-10-31] MEDS: HYDROcodone/APAP 5-325MG 1 EACH TAB PO PRN (10:00)
[2020-10-31] MEDS: ATORVASTATIN 40 MG TAB PO SCH (10:00)
[2020-10-31] MEDS: ESCITALOPRAM 20 MG TAB PO SCH (10:04)
[2020-10-31] MEDS: PANTOPRAZOLE 40 MG/10 ML VIAL IVP SCH (10:04)
[2020-10-31 11:05] LABS: Glucose,Whole Blood 211 mg/dL (75-99)
--- NOTE | 2020-10-31 11:19 | P.DS ---
Providers Date of admission: 10/27/20 15:20 Expected date of discharge: 10/31/20 Attending physician: Edda Vick MD Consults: 10/28/20 12:55 Consult Physician Routine Consulting Provider: Gabriella Kessler Consult Reason/Comments: Anemia history of AVMs Do you want consulting provider notified?: Yes Primary care physician: Connor [facility] Course: This is a 70-year-old female with past medical history noted below who presented to the emergency room with worsening urinary frequency and dysuria. Patient was evaluated in the ER and currently admitted to the hospital for further management of her medical problems noted below. 1. Recurrent UTI, failed outpatient management. Urine culture grew E. coli susceptible to Levaquin. Patient finished 5 days course of antibiotic here in the hospital.. Bladder scan showed no evidence of retention. Kidney ultrasound showed no hydronephrosis or evidence of kidney stone. 2. Acute on chronic anemia, iron deficiency. Asymptomatic. Patient received 1 unit of PRBC for hemoglobin of 5.9 during this admission. Also received one- time dose of IV iron. Probably secondary to chronic blood loss with history of prior AVMs status post cauterization most recently in May 2020. Patient also had a history of duodenal ulcers. No evidence of active bleeding. I consulted Dr. Singh for further evaluation and plan for repeat EGD tomorrow Patient underwent repeat EGD during this admission showing 1 cm superficial duodenal ulcer with friable margins status post cautery. 2 small gastric angiectasia with no active bleeding status post cautery. Patient was cleared by GI for discharge 3. Hypovolemic hyponatremia: Improved with IV fluid hydration 4. Chronic medical problems, essential hypertension, hyperlipidemia, multiple blood transfusions in the past On the day of discharge, patient's hemoglobin was 7.1. She did not have any evidence of ongoing GI bleed. She was very frustrated and would like to be discharged home. We discussed the necessity of close follow-up with her PCP and/or Dr. Martell for repeat hemoglobin within the next 2-3 days. Patient may require another unit of blood transfusion this week. She verbalized understanding of the plan. She is feeling fairly well and denies any dizziness or lightheadedness. She insisted on being discharged home. Patient Condition at Discharge: Stable Plan - Discharge Summary New Discharge Prescriptions: Continue Zafirlukast [Accolate] 20 mg PO BID metFORMIN HCL [Glucophage] 1,000 mg PO BID-W/MEALS ARIPiprazole [Abilify] 5 mg PO HS Atorvastatin [Lipitor] 40 mg PO DAILY #30 tab Cholecalciferol [Vitamin D3 (25 Mcg = 1000 Iu)] 1,000 unit PO DAILY Levothyroxine Sodium [Synthroid] 200 mcg PO DAILY Albuterol Sulfate [Ventolin HFA] 1 - 2 puff INHALATION RT-Q6H PRN PRN Reason: Shortness Of Breath Escitalopram [Lexapro] 20 mg PO DAILY Ipratropium-Albuterol Nebulize [Duoneb 0.5 mg-3 mg/3 ml Soln] 3 ml INHALATION RT-Q2H PRN ml PRN Reason: Shortness Of Breath Or Wheezing Formoterol Fumarate [Perforomist] 20 mcg INHALATION RT-BID nebu Pantoprazole Sodium [Protonix] 40 mg PO BID #60 tablet. Budesonide [Pulmicort] 1 mg INHALATION RT-BID ml HYDROcodone/APAP 7.5-325MG [[place] 7.5-325] 1 tab PO Q6H PRN #12 tab PRN Reason: Pain Furosemide [Lasix] 40 mg PO DAILY Magnesium Oxide [Mag-Ox] 400 mg PO DAILY #30 tablet traZODone HCL 100 mg PO HS PRN PRN Reason: Sedation Lisinopril [Zestril] 10 mg PO DAILY Discharge Medication List Zafirlukast [Accolate] 20 mg PO BID 02/06/14 [History] ARIPiprazole [Abilify] 5 mg PO HS 02/07/18 [History] metFORMIN HCL [Glucophage] 1,000 mg PO BID-W/MEALS 02/07/18 [History] Atorvastatin [Lipitor] 40 mg PO DAILY #30 tab 09/10/18 [Rx] Cholecalciferol [Vitamin D3 (25 Mcg = 1000 Iu)] 1,000 unit PO DAILY 09/03/19 [History] Levothyroxine Sodium [Synthroid] 200 mcg PO DAILY 09/03/19 [History] Albuterol Sulfate [Ventolin HFA] 1 - 2 puff INHALATION RT-Q6H PRN 03/11/20 [History] Escitalopram [Lexapro] 20 mg PO DAILY 03/11/20 [History] Budesonide [Pulmicort] 1 mg INHALATION RT-BID ml 03/27/20 [Rx] Formoterol Fumarate [Perforomist] 20 mcg INHALATION RT-BID nebu 03/27/20 [Rx] HYDROcodone/APAP 7.5-325MG [[place] 7.5-325] 1 tab PO Q6H PRN #12 tab 03/27/20 [ Rx] Ipratropium-Albuterol Nebulize [Duoneb 0.5 mg-3 mg/3 ml Soln] 3 ml INHALATION RT-Q2H PRN ml 03/27/20 [Rx] Pantoprazole Sodium [Protonix] 40 mg PO BID #60 tablet. 03/27/20 [Rx] Furosemide [Lasix] 40 mg PO DAILY 04/27/20 [History] Magnesium Oxide [Mag-Ox] 400 mg PO DAILY #30 tablet 04/27/20 [Rx] traZODone HCL 100 mg PO HS PRN 05/15/20 [History] Lisinopril [Zestril] 10 mg PO DAILY 05/28/20 [History] Follow up Appointment(s)/Referral(s): Bimal Martell MD [STAFF PHYSICIAN] - 1 Week Connor Carreon [Primary Care Provider] - 1-2 days Discharge Disposition: HOME SELF-CARE
[2020-10-31 11:23] VITALS: BP 150/66; PULSE 75; TEMP 97.9
== END 2020-10-31 12:35 | disposition home or self-care (01) | DRG 690 ==
LOC: EC 12:16 → 5NMEDONC 15:20
PROVIDERS: ADMIT Internal Medicine; ATTEND Internal Medicine
PROC: 30233N1 Transfusion of Nonautologous Red Blood Cells into Peripheral Vein, Percutaneous Approach (ICD-10-PCS; 2020-10-28)
PROC: 0W3P8ZZ Control Bleeding in Gastrointestinal Tract, Via Natural or Artificial Opening Endoscopic (ICD-10-PCS; principal; 2020-10-31 08:30)
DX: N39.0 Urinary tract infection, site not specified (principal); E87.1 Hypo-osmolality and hyponatremia; N12 Tubulo-interstitial nephritis, not specified as acute or chronic; J44.9 Chronic obstructive pulmonary disease, unspecified; Z99.81 Dependence on supplemental oxygen; Z87.440 Personal history of urinary (tract) infections; D50.0 Iron deficiency anemia secondary to blood loss (chronic); G89.29 Other chronic pain; Z79.84 Long term (current) use of oral hypoglycemic drugs; Z79.890 Hormone replacement therapy; Z88.1 Allergy status to other antibiotic agents; Z88.0 Allergy status to penicillin; Z91.81 History of falling; E11.9 Type 2 diabetes mellitus without complications; M19.90 Unspecified osteoarthritis, unspecified site; E66.9 Obesity, unspecified; Z68.35 Body mass index [BMI] 35.0-35.9, adult; Z85.828 Personal history of other malignant neoplasm of skin; Z87.891 Personal history of nicotine dependence; Z80.8 Family history of malignant neoplasm of other organs or systems; E86.0 Dehydration; Z99.3 Dependence on wheelchair; Z82.5 Family history of asthma and other chronic lower respiratory diseases; E86.1 Hypovolemia; E78.00 Pure hypercholesterolemia, unspecified; B96.20 Unspecified Escherichia coli [E. coli] as the cause of diseases classified elsewhere; F41.9 Anxiety disorder, unspecified; F32.9 Major depressive disorder, single episode, unspecified; K31.819 Angiodysplasia of stomach and duodenum without bleeding; K26.7 Chronic duodenal ulcer without hemorrhage or perforation; Z20.828 Contact with and (suspected) exposure to other viral communicable diseases; Z87.442 Personal history of urinary calculi; R09.02 Hypoxemia; I50.9 Heart failure, unspecified; I11.0 Hypertensive heart disease with heart failure; E03.9 Hypothyroidism, unspecified; I99.8 Other disorder of circulatory system
CPT/HCPCS: 36415; 43255; 76770; 80048; 80053; 81001; 83540; 83550; 83605; 85025; 86850; 86900; 86901; 86920; 87040; 87077; 87086; 87186; 87635; 93005; 94640; 94760; 96365; 96375; 99285

== ENCOUNTER 2020-12-24 21:03 | Inpatient (IN) | payer MEDICARE, OTHER ==
--- NOTE | 2020-12-24 22:03 | XR ---
EXAMINATION TYPE: XR chest 2V DATE OF EXAM: 12/24/2020 COMPARISON: 05/28/2020 HISTORY: Short of breath TECHNIQUE: FINDINGS: Heart is enlarged. There is some pulmonary vascular congestion. Thoracic aorta is atheromat ous. There are chest leads. There is probably blunting left costophrenic angle. IMPRESSION: Congestive heart failure with left pleural effusion. Pulmonary congestion increased mickie red to old exam. Heart is increased.
[2020-12-24 22:04] LABS: Basophils % (A) 0 %; Eosinophils # (A) 0.2 k/uL (0-0.7); Eosinophils % (A) 2 %; HCT 20.8 % (34.0-46.0); Hypochromasia Slight; Lymphocytes # (A) 0.7 k/uL (1.0-4.8); Lymphocytes % (A) 6 %; MCH 30.7 pg (25.0-35.0); MCHC 32.1 g/dL (31.0-37.0); Mean Platelet Volume 6.9; Monocytes # (A) 0.9 k/uL (0-1.0); Monocytes % (A) 7 %; Neutrophils # (A) 9.6 k/uL (1.3-7.7); Neutrophils % (A) 83 %; Platelet Count 459 k/uL (150-450); RBC 2.17 m/uL (3.80-5.40); RDW 13.5 % (11.5-15.5); WBC 11.6 k/uL (3.8-10.6)
[2020-12-24 22:13] LABS: Albumin 2.6 g/dL (3.5-5.0); Calcium 8.7 mg/dL (8.4-10.2); Potassium 4.7 mmol/L (3.5-5.1); Total Bilirubin 0.3 mg/dL (0.2-1.3); Total Protein 5.6 g/dL (6.3-8.2)
[2020-12-24 22:26] LABS: HGB 6.7 gm/dL (11.4-16.0); MCV 95.9 fL (80.0-100.0)
[2020-12-24 22:33] LABS: INR 1.2 (<1.2); Partial Thromboplastin Time 25.6 sec (22.0-30.0)
--- NOTE | 2020-12-24 22:34 | ED ---
SOB HPI - General Chief Complaint: Shortness of Breath Stated Complaint: SOB Time Seen by Provider: 12/24/20 21:15 Source: patient Mode of arrival: wheelchair Limitations: no limitations - History of Present Illness Initial Comments: 70 year-old female patient presents to the emergency department for evaluation of shortness of breath worsening over the last 2-3 days. Denies worsening with lying down or activity. Does have history of COPD, is oxygen dependent, and has been doing three breathing treatments per day. Reports chronic cough, no changes to frequency or sputum. Denies fever or chills. She believes she may have a UTI due to urinary frequency, urgency, and dysuria. Denies swelling to her lower extremities. Denies any chest pain. Patient denies any recent rash, abdominal pain, diarrhea, constipation, back pain, numbness, tingling, dizziness, weakness, headache, visual changes, or any other complaints. - Related Data Home Medications Medication Instructions Recorded Confirmed Zafirlukast [Accolate] 20 mg PO BID 02/06/14 12/24/20 ARIPiprazole [Abilify] 5 mg PO HS 02/07/18 12/24/20 metFORMIN HCL [Glucophage] 1,000 mg PO BID-W/MEALS 02/07/18 12/24/20 Cholecalciferol [Vitamin D3 (25 1,000 unit PO DAILY 09/03/19 12/24/20 Mcg = 1000 Iu)] Levothyroxine Sodium [Synthroid] 200 mcg PO DAILY 09/03/19 12/24/20 Albuterol Sulfate [Ventolin HFA] 1 - 2 puff INHALATION RT-Q6H PRN 03/11/20 0503/09 Escitalopram [Lexapro] 20 mg PO DAILY 03/11/20 12/24/20 Furosemide [Lasix] 40 mg PO DAILY 04/27/20 12/24/20 traZODone HCL 100 mg PO HS PRN 05/15/20 12/24/20 Lisinopril [Zestril] 10 mg PO DAILY 05/28/20 12/24/20 Previous Rx's Medication Instructions Recorded Atorvastatin [Lipitor] 40 mg PO DAILY #30 tab 09/10/18 Budesonide [Pulmicort] 1 mg INHALATION RT-BID ml 03/27/20 Formoterol Fumarate [Perforomist] 20 mcg INHALATION RT-BID nebu 03/27/20 HYDROcodone/APAP 7.5-325MG [[place] 1 tab PO Q6H PRN #12 tab 03/27/20 7.5-325] Ipratropium-Albuterol Nebulize 3 ml INHALATION RT-Q2H PRN ml 03/27/20 [Duoneb 0.5 mg-3 mg/3 ml Soln] Pantoprazole Sodium [Protonix] 40 mg PO BID #60 tablet.dr 03/27/20 Magnesium Oxide [Mag-Ox] 400 mg PO DAILY #30 tablet 04/27/20 Allergies Allergy/AdvReac Type Severity Reaction Status Date / Time adhesive Allergy Rash/Hives Verified 12/24/20 21:46 ciprofloxacin [From Cipro] Allergy Rash/Hives Verified 12/24/20 21:46 ciprofloxacin HCl Allergy Rash/Hives Verified 12/24/20 21:46 [From Cipro] latex Allergy Rash/Hives Verified 12/24/20 21:46 levofloxacin [From Levaquin] Allergy Rash/Hives Verified 12/24/20 21:46 nitrofurantoin Allergy Rash/Hives Verified 12/24/20 21:46 [From Macrobid] nitrofurantoin Allergy Rash/Hives Verified 12/24/20 21:46 macrocrystalline [From Macrobid] Penicillins Allergy Rash/Hives Verified 12/24/20 21:46 propoxyphene HCl Allergy Rash/Hives Verified 12/24/20 21:46 [From Darvon] propoxyphene napsylate Allergy Unknown Verified 12/24/20 21:46 [From Darvocet-N] Review of Systems ROS Statement: Those systems with pertinent positive or pertinent negative responses have been documented in the HPI. ROS Other: All systems not noted in ROS Statement are negative. Past Medical History Past Medical History: Asthma, Chest Pain / Angina, COPD, Diabetes Mellitus, Hyperlipidemia, Hypertension, Osteoarthritis (OA), Respiratory Disorder, Skin Disorder, Thyroid Disorder Additional Past Medical History / Comment(s): Obesity (BMI 35) COPD, asthma, diabetes , depression, 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 The patient is also a recently quit smoker. The patient has chronic back pain. History of Any Multi-Drug Resistant Organisms: None Reported Past Surgical History: Appendectomy, Section, Cholecystectomy, Orthopedic Surgery, Tubal Ligation Additional Past Surgical History / Comment(s): LASER SX JETHRO EYES FOR GLAUCOMA. RT KNEE ARTHROSCOPY. UNDERWENT PERCUTANEOUS NEPHROSTOLITHOTOMY Past Anesthesia/Blood Transfusion Reactions: No Reported Reaction Past Psychological History: Anxiety, Depression Smoking Status: Former smoker Past Alcohol Use History: None Reported Past Drug Use History: None Reported - Past Family History Mother Additional Family Medical History / Comment(s): emphysema, heart valve problems, in her slepp. Brother(s) Family Medical History: Cancer Additional Family Medical History / Comment(s): from oral cancer Father Brother(s) Family Medical History: Cancer Additional Family Medical History / Comment(s): heart disease General Exam Limitations: no limitations General appearance: alert, in no apparent distress, other (This is a well developed adult female patient in no acute distress. Vital signs upon presentation are temperature 98.2F, pulse 84, respirations 26, blood pressure 125/56, pulse ox 96% on 2 L per) ENT exam: Present: normal exam, normal oropharynx, mucous membranes moist Respiratory exam: Present: normal lung sounds bilaterally. Absent: respiratory distress, wheezes, rales, rhonchi, stridor Cardiovascular Exam: Present: regular rate, normal rhythm, normal heart sounds. Absent: systolic murmur, diastolic murmur, rubs, gallop, clicks GI/Abdominal exam: Present: soft, normal bowel sounds. Absent: distended, tenderness, guarding, rebound, rigid Neurological exam: Present: alert, oriented X3, CN II-XII intact Psychiatric exam: Present: normal affect, normal mood Skin exam: Present: warm, dry, intact, normal color. Absent: rash Course Vital Signs 12/24/20 12/24/20 21:08 23:29 Temperature 98.2 F Pulse Rate 84 94 Respiratory 26 H 16 Rate Blood Pressure 125/56 113/46 O2 Sat by Pulse 96 91 L Oximetry Medical Decision Making - Medical Decision Making 70-year-old female patient presents to the emergency room today for evaluation of shortness of breath and dysuria and urinary frequency. Physical examination did reveal clear lung sounds. She is in no acute respiratory distress. Abdomen soft and nontender. Labs reviewed and did reveal hemoglobin of 6.7. She also had evidence for urinary tract infection. She'll be given IV Rocephin. She does have history of duodenal ulcer and GI bleed was recently admitted for similar symptoms. We will give one unit of packed red blood cells. Chest xray showed evidence for heart failure with small pleural effusion. We will give lasix. She'll be admitted to the hospital for further evaluation and monitoring. She verbalizes understanding and agrees with this plan. Case discussed with my attending Dr. Rodgers. - Lab Data Result diagrams: 12/24/20 21:52 12/24/20 21:52 Lab Results 12/24/20 12/24/20 12/24/20 Range/Units 21:52 21:52 21:52 WBC 11.6 H (3.8-10.6) k/uL RBC 2.17 L (3.80-5.40) m/uL Hgb 6.7 L* (11.4-16.0) gm/dL Hct 20.8 L (34.0-46.0) % MCV 95.9 D (80.0-100.0) fL MCH 30.7 (25.0-35.0) pg MCHC 32.1 (31.0-37.0) g/dL RDW 13.5 (11.5-15.5) % Plt Count 459 H (150-450) k/uL MPV 6.9 Neutrophils % 83 % Lymphocytes % 6 % Monocytes % 7 % Eosinophils % 2 % Basophils % 0 % Neutrophils # 9.6 H (1.3-7.7) k/uL Lymphocytes # 0.7 L (1.0-4.8) k/uL Monocytes # 0.9 (0-1.0) k/uL Eosinophils # 0.2 (0-0.7) k/uL Basophils # 0.0 (0-0.2) k/uL Hypochromasia Slight PT 12.0 (9.0-12.0) sec INR 1.2 H (<1.2) APTT 25.6 (22.0-30.0) sec Sodium (137-145) mmol/L Potassium (3.5-5.1) mmol/L Chloride (98-107) mmol/L Carbon Dioxide (22-30) mmol/L Anion Gap mmol/L BUN (7-17) mg/dL Creatinine (0.52-1.04) mg/dL Est GFR (CKD-EPI)AfAm (>60 ml/min/1.73 sqM) Est GFR (CKD-EPI)NonAf (>60 ml/min/1.73 sqM) Glucose (74-99) mg/dL Plasma Lactic Acid Ravi (0.7-2.0) mmol/L Calcium (8.4-10.2) mg/dL Total Bilirubin (0.2-1.3) mg/dL AST (14-36) U/L ALT (4-34) U/L Alkaline Phosphatase (38-126) U/L Troponin I (0.000-0.034) ng/mL Total Protein (6.3-8.2) g/dL Albumin (3.5-5.0) g/dL Urine Color [place] Urine Appearance Turbid H (Clear) Urine pH 6.5 (5.0-8.0) Ur Specific [place] 1.014 (1.001-1.035) Urine Protein 1+ H (Negative) Urine Glucose (UA) Negative (Negative) Urine Ketones Negative (Negative) Urine Blood Large H (Negative) Urine Nitrite Negative (Negative) Urine Bilirubin Negative (Negative) Urine Urobilinogen <2.0 (<2.0) mg/dL Ur Leukocyte Esterase Large H (Negative) Urine RBC >182 H (0-5) /hpf Urine WBC >182 H (0-5) /hpf Urine WBC Clumps Many H (None) /hpf Urine Bacteria Many H (None) /hpf Urine Mucus Rare H (None) /hpf Coronavirus (PCR) (Not Detectd) 12/24/20 12/24/20 12/24/20 Range/Units 21:52 21:52 21:52 WBC (3.8-10.6) k/uL RBC (3.80-5.40) m/uL Hgb (11.4-16.0) gm/dL Hct (34.0-46.0) % MCV (80.0-100.0) fL MCH (25.0-35.0) pg MCHC (31.0-37.0) g/dL RDW (11.5-15.5) % Plt Count (150-450) k/uL MPV Neutrophils % % Lymphocytes % % Monocytes % % Eosinophils % % Basophils % % Neutrophils # (1.3-7.7) k/uL Lymphocytes # (1.0-4.8) k/uL Monocytes # (0-1.0) k/uL Eosinophils # (0-0.7) k/uL Basophils # (0-0.2) k/uL Hypochromasia PT (9.0-12.0) sec INR (<1.2) APTT (22.0-30.0) sec Sodium 134 L (137-145) mmol/L Potassium 4.7 (3.5-5.1) mmol/L Chloride 103 (98-107) mmol/L Carbon Dioxide 22 (22-30) mmol/L Anion Gap 9 mmol/L BUN 40 H (7-17) mg/dL Creatinine 1.08 H (0.52-1.04) mg/dL Est GFR (CKD-EPI)AfAm 60 (>60 ml/min/1.73 sqM) Est GFR (CKD-EPI)NonAf 52 (>60 ml/min/1.73 sqM) Glucose 149 H (74-99) mg/dL Plasma Lactic Acid Ravi 1.4 (0.7-2.0) mmol/L Calcium 8.7 (8.4-10.2) mg/dL Total Bilirubin 0.3 (0.2-1.3) mg/dL AST 33 (14-36) U/L ALT 39 H (4-34) U/L Alkaline Phosphatase 194 H (38-126) U/L Troponin I <0.012 (0.000-0.034) ng/mL Total Protein 5.6 L (6.3-8.2) g/dL Albumin 2.6 L (3.5-5.0) g/dL Urine Color Urine Appearance (Clear) Urine pH (5.0-8.0) Ur Specific [place] (1.001-1.035) Urine Protein (Negative) Urine Glucose (UA) (Negative) Urine Ketones (Negative) Urine Blood (Negative) Urine Nitrite (Negative) Urine Bilirubin (Negative) Urine Urobilinogen (<2.0) mg/dL Ur Leukocyte Esterase (Negative) Urine RBC (0-5) /hpf Urine WBC (0-5) /hpf Urine WBC Clumps (None) /hpf Urine Bacteria (None) /hpf Urine Mucus (None) /hpf Coronavirus (PCR) (Not Detectd) 12/24/20 Range/Units 21:52 WBC (3.8-10.6) k/uL RBC (3.80-5.40) m/uL Hgb (11.4-16.0) gm/dL Hct (34.0-46.0) % MCV (80.0-100.0) fL MCH (25.0-35.0) pg MCHC (31.0-37.0) g/dL RDW (11.5-15.5) % Plt Count (150-450) k/uL MPV Neutrophils % % Lymphocytes % % Monocytes % % Eosinophils % % Basophils % % Neutrophils # (1.3-7.7) k/uL Lymphocytes # (1.0-4.8) k/uL Monocytes # (0-1.0) k/uL Eosinophils # (0-0.7) k/uL Basophils # (0-0.2) k/uL Hypochromasia PT (9.0-12.0) sec INR (<1.2) APTT (22.0-30.0) sec Sodium (137-145) mmol/L Potassium (3.5-5.1) mmol/L Chloride (98-107) mmol/L Carbon Dioxide (22-30) mmol/L Anion Gap mmol/L BUN (7-17) mg/dL Creatinine (0.52-1.04) mg/dL Est GFR (CKD-EPI)AfAm (>60 ml/min/1.73 sqM) Est GFR (CKD-EPI)NonAf (>60 ml/min/1.73 sqM) Glucose (74-99) mg/dL Plasma Lactic Acid Ravi (0.7-2.0) mmol/L Calcium (8.4-10.2) mg/dL Total Bilirubin (0.2-1.3) mg/dL AST (14-36) U/L ALT (4-34) U/L Alkaline Phosphatase (38-126) U/L Troponin I (0.000-0.034) ng/mL Total Protein (6.3-8.2) g/dL Albumin (3.5-5.0) g/dL Urine Color Urine Appearance (Clear) Urine pH (5.0-8.0) Ur Specific [place] (1.001-1.035) Urine Protein (Negative) Urine Glucose (UA) (Negative) Urine Ketones (Negative) Urine Blood (Negative) Urine Nitrite (Negative) Urine Bilirubin (Negative) Urine Urobilinogen (<2.0) mg/dL Ur Leukocyte Esterase (Negative) Urine RBC (0-5) /hpf Urine WBC (0-5) /hpf Urine WBC Clumps (None) /hpf Urine Bacteria (None) /hpf Urine Mucus (None) /hpf Coronavirus (PCR) Not Detected (Not Detectd) - EKG Data -: EKG Interpreted by Nv EKG Comments: EKG obtained at 2122 shows normal sinus rhythm with ventricular rate 98, KS interval 162, QR latter day 76, QT 356, QTc 454. No evidence of ST elevation or depression. - Radiology Data Radiology results: report reviewed, image reviewed Two-view x-ray of the chest is obtained. Report was reviewed in its entirety. Impression by Dr. Gonzales shows congestive heart failure with left pleural effusion. Pulmonary congestion increased compared to old exam. Heart is increased. Disposition Clinical Impression: Anemia, History of duodenal ulcer, UTI (urinary tract infection), CHF (congestive heart failure) Disposition: ADMITTED IP TO THIS [facility] Condition: Serious Decision to Admit Reason: Admit from EC Decision Date: 12/24/20 Decision Time: 23:02
[2020-12-24 22:39] LABS: Appearance,Urine Turbid (Clear); Bacteria,Urine Many /hpf; Bilirubin,Urine Negative (Negative); Blood,Urine Large (Negative); Color,Urine Orange; Glucose,Urine (UA) Negative (Negative); Ketones,Urine Negative (Negative); Leukocyte Esterase,Urine Large (Negative); Mucus,Urine Rare /hpf; Nitrite,Urine Negative (Negative); PH, Urine 6.5 (5.0-8.0); Protein,Urine 1+ (Negative); RBC,Urine >182 /hpf (0-5); Specific Gravity,Urine 1.014 (1.001-1.035); Urobilinogen,Urine <2.0 mg/dL (<2.0); WBC,Urine >182 /hpf (0-5)
[2020-12-24] MEDS ORDERED: NALOXONE 0.4 MG/ML 1 ML VIAL IV PRN (23:00)
[2020-12-24] MEDS ORDERED: PANTOPRAZOLE 40 MG/10 ML VIAL IVP STA (23:02)
[2020-12-25] MEDS ORDERED: FUROSEMIDE 10 MG/ML 4 ML VIAL IV STA (00:18)
[2020-12-25] MEDS: HYDROcodone/APAP 7.5-325MG 1 EACH TAB PO PRN ×4 (01:09→21:44)
[2020-12-25] MEDS: traZODone HCL 100 MG TAB PO PRN ×2 (01:10→21:44)
[2020-12-25] MEDS: ARIPiprazole 5 MG TAB PO SCH ×2 (02:08→21:43)
--- NOTE | 2020-12-25 04:12 | P.HPIM ---
History of Present Illness H&P Date: 12/25/20 The patient is a 70-year-old female with a PMH of COPD, chronic hypoxic respiratory failure on home O2, hypertension, hyperlipidemia, type II DM, and multiple recent hospitalizations for GI bleeding who presented to the emergency room with complaints of shortness of breath. The patient reports that over the past 2-3 days, she has had gradually worsening shortness of breath and decreased exercise tolerance. The patient normally uses a walker to ambulate which she is no longer able to do so. She also reports increased urinary frequency, urgency, and suprapubic pain. She reports long-standing orthopnea which is unchanged. Denied chest pain, lower extremity swelling or lower extremity pain. Denied nausea, vomiting, hematuria, palpitations, diarrhea. Denied melena or hematochezia. Denied recent travel or prolonged immobilization. She underwent an extensive evaluation in the emergency room with chest x-ray consistent with CHF and left-sided pleural effusion. EKG revealed normal sinus rhythm at 98 bpm with left axis deviation. X-ray evaluation was remarkable for leukocytosis of 11.6, hemoglobin 6.7 (down from baseline of 7.8), platelets 459, d-dimer 2.64, sodium 134, BUN 40, creatinine 1.08, glucose 149, troponin less than 0.012, and proBNP 2270, with a UA consistent with UTI. Review of Systems Pertinent positives and negatives as discussed in HPI, a complete review of systems was performed and all other systems are negative. Past Medical History Past Medical History: Asthma, Chest Pain / Angina, COPD, Diabetes Mellitus, Hyperlipidemia, Hypertension, Osteoarthritis (OA), Respiratory Disorder, Skin Disorder, Thyroid Disorder Additional Past Medical History / Comment(s): Obesity (BMI 35) COPD, asthma, diabetes , depression, 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 The patient is also a recently quit smoker. The patient has chronic back pain. History of Any Multi-Drug Resistant Organisms: None Reported Past Surgical History: Appendectomy, Section, Cholecystectomy, Orthopedic Surgery, Tubal Ligation Additional Past Surgical History / Comment(s): LASER SX JETHRO EYES FOR GLAUCOMA. RT KNEE ARTHROSCOPY. UNDERWENT PERCUTANEOUS NEPHROSTOLITHOTOMY Past Anesthesia/Blood Transfusion Reactions: No Reported Reaction Past Psychological History: Anxiety, Depression Smoking Status: Former smoker Past Alcohol Use History: None Reported Past Drug Use History: None Reported - Past Family History Mother Additional Family Medical History / Comment(s): emphysema, heart valve problems, in her slepp. Brother(s) Family Medical History: Cancer Additional Family Medical History / Comment(s): from oral cancer Father Brother(s) Family Medical History: Cancer Additional Family Medical History / Comment(s): heart disease Medications and Allergies Home Medications Medication Instructions Recorded Confirmed Type Zafirlukast [Accolate] 20 mg PO BID 02/06/14 12/24/20 History ARIPiprazole [Abilify] 5 mg PO HS 02/07/18 12/24/20 History metFORMIN HCL [Glucophage] 1,000 mg PO BID-W/MEALS 02/07/18 12/24/20 History Atorvastatin [Lipitor] 40 mg PO DAILY #30 tab 09/10/18 12/24/20 Rx Cholecalciferol [Vitamin D3 (25 1,000 unit PO DAILY 09/03/19 12/24/20 History Mcg = 1000 Iu)] Levothyroxine Sodium [Synthroid] 200 mcg PO DAILY 09/03/19 12/24/20 History Albuterol Sulfate [Ventolin HFA] 1 - 2 puff INHALATION RT-Q6H PRN 03/11/2003/09 History Escitalopram [Lexapro] 20 mg PO DAILY 03/11/20 12/24/20 History Budesonide [Pulmicort] 1 mg INHALATION RT-BID ml 03/27/20 12/24/20 Rx Formoterol Fumarate [Perforomist] 20 mcg INHALATION RT-BID nebu 03/27/20 12/24/20 Rx HYDROcodone/APAP 7.5-325MG [[place] 1 tab PO Q6H PRN #12 tab 03/27/20 12/24/20 Rx 7.5-325] Ipratropium-Albuterol Nebulize 3 ml INHALATION RT-Q2H PRN ml 03/27/20 12/24/20 Rx [Duoneb 0.5 mg-3 mg/3 ml Soln] Pantoprazole Sodium [Protonix] 40 mg PO BID #60 tablet. 03/27/20 12/24/20 Rx Furosemide [Lasix] 40 mg PO DAILY 04/27/20 12/24/20 History Magnesium Oxide [Mag-Ox] 400 mg PO DAILY #30 tablet 04/27/20 12/24/20 Rx traZODone HCL 100 mg PO HS PRN 05/15/20 12/24/20 History Lisinopril [Zestril] 10 mg PO DAILY 05/28/20 12/24/20 History Allergies Allergy/AdvReac Type Severity Reaction Status Date / Time adhesive Allergy Rash/Hives Verified 12/24/20 21:46 ciprofloxacin [From Cipro] Allergy Rash/Hives Verified 12/24/20 21:46 ciprofloxacin HCl Allergy Rash/Hives Verified 12/24/20 21:46 [From Cipro] latex Allergy Rash/Hives Verified 12/24/20 21:46 levofloxacin [From Levaquin] Allergy Rash/Hives Verified 12/24/20 21:46 nitrofurantoin Allergy Rash/Hives Verified 12/24/20 21:46 [From Macrobid] nitrofurantoin Allergy Rash/Hives Verified 12/24/20 21:46 macrocrystalline [From Macrobid] Penicillins Allergy Rash/Hives Verified 12/24/20 21:46 propoxyphene HCl Allergy Rash/Hives Verified 12/24/20 21:46 [From Darvon] propoxyphene napsylate Allergy Unknown Verified 12/24/20 21:46 [From Darvocet-N] Physical Exam Vitals: Vital Signs Temp Pulse Pulse Resp BP BP Pulse Ox 12/25/20 03:10 98.2 F 79 22 87/52 12/25/20 03:00 98.2 F 84 20 88/53 93 L 12/25/20 02:40 97.9 F 85 26 H 92/43 78 L 12/25/20 02:30 97.9 F 84 24 92/54 94 L 12/25/20 01:40 18 12/25/20 00:08 97.9 F 90 14 117/62 92 L 12/24/20 23:29 94 16 113/46 91 L 12/24/20 21:08 98.2 F 84 26 H 125/56 96 Intake and Output 12/24/20 12/24/20 12/25/20 14:59 22:59 06:59 Intake Total 0 Balance 0 Intake: Blood Product 0 Rc As-1 Unit 0 [id number] Other: # Voids 1 Weight 68.039 kg 68.039 kg General: non toxic, no distress, appears at stated age, obese Derm: no unusual rashes/lesions no unusual ecchymoses, warm, dry Head: atraumatic, normocephalic, symmetric Eyes: EOMI, no lid lag, anicteric sclera, pupils equal round reactive to light ENT: Nose and ears atraumatic, no thrush, no pharyngeal erythema Neck: No thyromegaly, no cervical lymphadenopathy, trachea midline, supple Mouth: no lip lesion, mucus membranes moist Cardiovascular: S1S2 reg, no murmur, positive posterior tibial pulse bilateral, trace bilateral lower extremity pitting edema, capillary refill less than 2 seconds Lungs: CTA bilateral, no rhonchi, no rales, minimal expiratory wheezing, no accessory muscle use Abdominal: soft, nontender to palpation, no guarding, no appreciable organomegaly, normal bowel sounds Ext: no gross muscle atrophy, muscle strength 5 out of 5 in all 4 extremities grossly, no contractures, Neuro: CN II-XI grossly intact, light touch intact all 4 extremities, finger to nose within normal limits, Psych: Alert, oriented, appropriate affect Results CBC & Chem 7: 12/24/20 21:52 12/24/20 21:52 Labs: Abnormal Lab Results - Last 24 Hours (Table) 12/24/20 12/24/20 12/24/20 Range/Units 21:52 21:52 21:52 WBC 11.6 H (3.8-10.6) k/uL RBC 2.17 L (3.80-5.40) m/uL Hgb 6.7 L* (11.4-16.0) gm/dL Hct 20.8 L (34.0-46.0) % Plt Count 459 H (150-450) k/uL Neutrophils # 9.6 H (1.3-7.7) k/uL Lymphocytes # 0.7 L (1.0-4.8) k/uL INR 1.2 H (<1.2) D-Dimer (<0.60) mg/L FEU Sodium (137-145) mmol/L BUN (7-17) mg/dL Creatinine (0.52-1.04) mg/dL Glucose (74-99) mg/dL ALT (4-34) U/L Alkaline Phosphatase (38-126) U/L Total Protein (6.3-8.2) g/dL Albumin (3.5-5.0) g/dL Urine Appearance Turbid H (Clear) Urine Protein 1+ H (Negative) Urine Blood Large H (Negative) Ur Leukocyte Esterase Large H (Negative) Urine RBC >182 H (0-5) /hpf Urine WBC >182 H (0-5) /hpf Urine WBC Clumps Many H (None) /hpf Urine Bacteria Many H (None) /hpf Urine Mucus Rare H (None) /hpf Crossmatch 12/24/20 12/24/20 12/24/20 Range/Units 21:52 21:52 23:17 WBC (3.8-10.6) k/uL RBC (3.80-5.40) m/uL Hgb (11.4-16.0) gm/dL Hct (34.0-46.0) % Plt Count (150-450) k/uL Neutrophils # (1.3-7.7) k/uL Lymphocytes # (1.0-4.8) k/uL INR (<1.2) D-Dimer 2.64 H (<0.60) mg/L FEU Sodium 134 L (137-145) mmol/L BUN 40 H (7-17) mg/dL Creatinine 1.08 H (0.52-1.04) mg/dL Glucose 149 H (74-99) mg/dL ALT 39 H (4-34) U/L Alkaline Phosphatase 194 H (38-126) U/L Total Protein 5.6 L (6.3-8.2) g/dL Albumin 2.6 L (3.5-5.0) g/dL Urine Appearance (Clear) Urine Protein (Negative) Urine Blood (Negative) Ur Leukocyte Esterase (Negative) Urine RBC (0-5) /hpf Urine WBC (0-5) /hpf Urine WBC Clumps (None) /hpf Urine Bacteria (None) /hpf Urine Mucus (None) /hpf Crossmatch See Detail Thrombosis Risk Factor Assmnt - Choose All That Apply Any of the Below Risk Factors Present?: Yes Each Factor Represents 1 point: Abnormal pulmonary function (COPD), Varicose veins Other Risk Factors: Yes Each Risk Factor Represents 2 Points: Age 61-74 years Thrombosis Risk Factor Assessment Total Risk Factor Score: 4 Thrombosis Risk Factor Assessment Level: Moderate Risk Assessment and Plan Plan: Shortness of breath, likely multifactorial with anemia and mild CHF exacerbation -D-dimer elevated, obtain CT angiogram chest due to high risk of DVT and PE since poor utility -Consult GI due to acute anemia with history of recent gastric ulcers requiring intervention -1 unit of PRBCs ordered -Monitor CBC -Continue with Lasix 40 mg IVP q12h -Supplemental oxygen -Cardiac monitoring -Intake and output -Daily weights -Protonix IV UTI -Continue with ceftriaxone -Follow cultures JAVON, BUN may be elevated due to possible GI bleeding -Monitor for now Chronic conditions: Type II DM, hypertension, hyperlipidemia, COPD -Continue with home meds -Check A1c -Lispro insulin sliding scale with blood glucose monitoring DVT prophylaxis -IPCDs The patient is admitted with an anticipated greater than 2 midnight stay for evaluation of acute blood loss anemia CODE STATUS: Full Code Discussed with: Patient Anticipated discharge date: 2-[address]: Home A total of 45 minutes was spent on the care of this complex patient more than 50% of the time was spent in counseling and care coordination.
--- NOTE | 2020-12-25 06:59 | CT ---
EXAM: CT Angiography Chest With Intravenous Contrast CLINICAL HISTORY: ITS.REASON CT Reason: R/o PE TECHNIQUE: Axial computed tomographic angiography images of the chest with intravenous contrast. CTDI is 18.27 mGy and DLP is 459.1 mGy-cm. This CT exam was performed using one or more of the following dose reduction techniques: automated exposure control, adjustment of the mA and/or kV according to patient size, and/or use of iterative reconstruction technique. MIP reconstructed images were created and reviewed. COMPARISON: August 16, 2018 FINDINGS: Pulmonary arteries: The pulmonary arterial tree is well-opacified with contrast. No pulmonary emboli are identified. Aorta: The thoracic aorta is heavily calcified but nondilated. There is no aneurysm or dissection. Lungs: Mild lingular and left costophrenic angle atelectasis. No mass. Pleural space: Trace left pleural effusion measuring less than 1 cm. No pneumothorax. Heart: There is a pericardial effusion ranging from 6-10 mm which is new since previous. No evidence of RV dysfunction. Bones/joints: Mild multilevel degenerative changes are seen throughout the thoracic spine. No acute fracture or subluxation. Soft tissues: Unremarkable. Lymph nodes: Unremarkable. No enlarged lymph nodes. IMPRESSION: 1. There is a pericardial effusion ranging from 6-10 mm which is new since previous. 2. Mild lingular and left costophrenic angle atelectasis. 3. No evidence of pulmonary embolism or acute aortic abnormality.
[2020-12-25 07:28] LABS: Glucose,Whole Blood 144 mg/dL (75-99)
[2020-12-25] MEDS: FUROSEMIDE 10 MG/ML 4 ML VIAL IV SCH ×3 (08:16→21:47)
[2020-12-25] MEDS: PANTOPRAZOLE 40 MG/10 ML VIAL IVP SCH ×2 (08:16→21:43)
[2020-12-25] MEDS: ATORVASTATIN 40 MG TAB PO SCH (08:16)
[2020-12-25] MEDS: ESCITALOPRAM 20 MG TAB PO SCH (08:16)
[2020-12-25] MEDS: INSULIN ASPART (NovoLOG) 100 UNIT/ML VIAL SQ SCH ×3 (08:17→17:11)
[2020-12-25] MEDS: FORMOTEROL FUMARATE 20 MCG/2 ML NEBU INHALATION SCH ×2 (08:35→20:07)
[2020-12-25] MEDS: BUDESONIDE 1 MG/2 ML NEBU INHALATION SCH ×2 (08:35→20:07)
[2020-12-25] MEDS: IPRATROPIUM-ALBUTEROL 3 ML NEB INHALATION PRN ×4 (08:35→20:07)
--- NOTE | 2020-12-25 11:42 | CONS ---
CONSULTATION DATE OF SERVICE: 12/25/2020 REQUESTING PHYSICIAN: Dr. Carreon. REASON FOR CONSULTATION: Recurrent anemia. HISTORY OF PRESENT ILLNESS: The patient is a 70-year-old pleasant white female admitted to the hospital with shortness of breath and fatigue and weakness for the last few days duration. She came into the emergency room and was noted to have a hemoglobin of 6.7 g/dL and hence admitted to the hospital. Was given a unit of PRBC transfusion last night and GI was consulted. The patient has recurrent anemia for the last one year duration. She had multiple upper endoscopies and colonoscopy done during the course of the last one year and according to the patient, she received at least 10 units of PRBC transfusion. The patient had an upper endoscopy in March of 2020 that showed a duodenal ulcer and repeat upper endoscopy in April of 2020 showed scattered angioectasia in the duodenum that were treated with gold probe and completely healed duodenal ulcer. 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 Subsequently, she was admitted to the hospital in May of 2020 at which time she had small bowel enteroscopy which revealed scattered angioectasia in the duodenum that was cauterized using a gold probe. Her last hospitalization was on October 31, 2020. She had an upper endoscopy done by [facility] which revealed two small angioectasia in the duodenum that were cauterized and two small in the stomach that were also cauterized. Now she presents to the hospital with symptomatic anemia. PAST MEDICAL HISTORY: Significant for hypertension, hyperlipidemia, diabetes mellitus, anxiety, depression, hypothyroidism. MEDICATIONS: Medications at home include trazodone, Glucophage, accolade, Protonix, magnesium oxide, Zestril, Synthroid, DuoNeb, [place], Lasix, Perforomist, Lexapro, Pulmicort, Lipitor, Ventolin, Abilify. SOCIAL HISTORY: No smoking, no alcohol. PAST SURGICAL HISTORY: Multiple EGDs and colonoscopies as mentioned above. The last EGD was October of 2020. History of , appendectomy, cholecystectomy, tubal ligation. ALLERGIES: CIPRO, LATEX, LEVAQUIN, MACROBID, PENICILLIN, DARVON, DARVOCET. FAMILY HISTORY: Mother, emphysema. Brother, oral cancer. Father, heart disease. REVIEW OF SYSTEMS: CARDIOPULMONARY: She denies any chest pain, but she does complain of shortness of breath. : No dysuria or hematuria. MUSCULOSKELETAL: Chronic back pain. NEUROLOGY: Unremarkable. PSYCHIATRIC: Unremarkable: ENT/VISION: Unremarkable. CONSTITUTIONAL: No recent weight loss. No fever, chills, night sweats. HEMATOLOGY: Severe symptomatic anemia. PHYSICAL EXAMINATION: Blood pressure is 109/68, pulse rate 78, temperature 98.1 HEENT examination unremarkable. Conjunctivae pink, sclerae anicteric. Oral cavity no lesions. NECK: No JVD. No lymph node enlargement/ CHEST: Clear to auscultation. HEART: Regular rate and rhythm. ABDOMEN: Soft. Bowel sounds are positive. No organomegaly. EXTREMITIES: No pedal edema. NEURO: She is alert and oriented x3. No focal deficits. LABS: From today hemoglobin is 6.7. The last labs on November 10 was 7.6. MCV is 95. ALT, AST, T bilirubin and alkaline phosphatase are normal. BUN is 40, creatinine 1.08. IMPRESSION: 1. Recurrent anemia for the last one year duration. Patient had multiple upper endoscopies over the last 8 months. Last upper endoscopy October of 2020 showed scattered angioectasia in the stomach as well as the duodenum that were cauterized. 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 At this time, possibility of small bowel AVMs have to be considered. Clinically she does not have any active bleeding. Hemoglobin was 6.7, received one unit of PRBC transfusion. Repeat hemoglobin is pending. 2. History of hypertension. 3. Urinary tract infection, on broad-spectrum antibiotics. 4. Chronic obstructive pulmonary disease. 5. Diabetes mellitus. RECOMMENDATIONS: 1. Start on clear liquid diet. 2. Monitor CBC daily. 3. Will proceed with a small bowel capsule endoscopy tomorrow and based on the results, if it is negative, she may benefit from a repeat upper endoscopy as well as colonoscopy. Further recommendations will follow. Thank you for this consultation. MMODL / IJN: [id number] /
[2020-12-25 11:48] LABS: Glucose,Whole Blood 123 mg/dL (75-99)
[2020-12-25 12:32] LABS: African American GFR (CKD) 52.7 (60.0-200.0); Anion Gap 8.5 mmol/L (4.00-12.00); BUN/Creat Ratio 34.17 Ratio (12.00-20.00); Carbon Dioxide 24.5 mmol/L (21.6-31.8); Non-African American GFR(CKD) 45.4 (60.0-200.0); Potassium 4.6 mmol/L (3.5-5.5)
[2020-12-25 12:47] LABS: HCT 22.1 % (37.2-46.3); HGB 6.5 g/dL (12.0-15.0); MCH 29.4 pg (27.0-32.0); MCHC 29.4 g/dL (32.0-37.0); Platelet Count 378 X 10*3/uL (140-440); RBC 2.21 X 10*6/uL (4.10-5.20); RDW 14.5 % (11.5-14.5); WBC 7.72 X 10*3/uL (4.50-10.00)
--- NOTE | 2020-12-25 13:01 | P.PN ---
Subjective Progress Note Date: 12/25/20 Patient is doing fairly well today. She denies significant shortness of breath or fatigue this morning. No evidence of ongoing bleed. She received 1 unit of blood last night. No acute events overnight reported by nursing staff. Objective - Vital Signs Vital signs: Vital Signs Temp 98.3 F 12/25/20 07:45 Pulse 78 12/25/20 12:05 Resp 22 12/25/20 07:45 BP 94/52 12/25/20 07:45 Pulse Ox 95 12/25/20 08:36 Intake & Output 12/24/20 12/25/20 12/25/20 18:59 06:59 18:59 Intake Total 1120 320 Output Total 500 300 Balance 620 20 Weight 68.039 kg Intake: Oral 500 320 Blood Product 620 Rc As-1 Unit 310 [id number] Output: Urine 500 300 Other: # Voids 1 - Exam General: The patient is awake and alert, in no distress Eye: there is normal conjunctiva bilaterally. Neck: The neck is supple, there is no JVD. Cardiovascular: Normal S1-S2, no S3-S4, no murmurs. Respiratory: Lungs clear to auscultation bilaterally Gastrointestinal: Abdomen is soft, nontender Musculoskeletal: There is no pedal edema. Neurological:. Speech is normal. Skin: Skin is warm and dry - Labs CBC & Chem 7: 12/25/20 06:53 12/25/20 06:53 Labs: Abnormal Lab Results - Last 24 Hours (Table) 12/24/20 12/24/20 12/24/20 Range/Units 21:52 21:52 21:52 WBC 11.6 H (3.8-10.6) k/uL RBC 2.17 L (3.80-5.40) m/uL Hgb 6.7 L* (11.4-16.0) gm/dL Hct 20.8 L (34.0-46.0) % MCV (80.0-97.0) fL MCHC (32.0-37.0) g/dL Plt Count 459 H (150-450) k/uL MPV (9.5-12.2) fL Neutrophils # 9.6 H (1.3-7.7) k/uL Lymphocytes # 0.7 L (1.0-4.8) k/uL INR 1.2 H (<1.2) D-Dimer (<0.60) mg/L FEU Sodium (137-145) mmol/L BUN (7-17) mg/dL Creatinine (0.52-1.04) mg/dL Est GFR (CKD-EPI)AfAm (60.0-200.0) Est GFR (CKD-EPI)NonAf (60.0-200.0) BUN/Creatinine Ratio (12.00-20.00) Ratio Glucose (74-99) mg/dL POC Glucose (mg/dL) (75-99) mg/dL Calcium (8.7-10.3) mg/dL ALT (4-34) U/L Alkaline Phosphatase (38-126) U/L Total Protein (6.3-8.2) g/dL Albumin (3.5-5.0) g/dL Urine Appearance Turbid H (Clear) Urine Protein 1+ H (Negative) Urine Blood Large H (Negative) Ur Leukocyte Esterase Large H (Negative) Urine RBC >182 H (0-5) /hpf Urine WBC >182 H (0-5) /hpf Urine WBC Clumps Many H (None) /hpf Urine Bacteria Many H (None) /hpf Urine Mucus Rare H (None) /hpf Crossmatch 12/24/20 12/24/20 12/24/20 Range/Units 21:52 21:52 23:17 WBC (3.8-10.6) k/uL RBC (3.80-5.40) m/uL Hgb (11.4-16.0) gm/dL Hct (34.0-46.0) % MCV (80.0-97.0) fL MCHC (32.0-37.0) g/dL Plt Count (150-450) k/uL MPV (9.5-12.2) fL Neutrophils # (1.3-7.7) k/uL Lymphocytes # (1.0-4.8) k/uL INR (<1.2) D-Dimer 2.64 H (<0.60) mg/L FEU Sodium 134 L (137-145) mmol/L BUN 40 H (7-17) mg/dL Creatinine 1.08 H (0.52-1.04) mg/dL Est GFR (CKD-EPI)AfAm (60.0-200.0) Est GFR (CKD-EPI)NonAf (60.0-200.0) BUN/Creatinine Ratio (12.00-20.00) Ratio Glucose 149 H (74-99) mg/dL POC Glucose (mg/dL) (75-99) mg/dL Calcium (8.7-10.3) mg/dL ALT 39 H (4-34) U/L Alkaline Phosphatase 194 H (38-126) U/L Total Protein 5.6 L (6.3-8.2) g/dL Albumin 2.6 L (3.5-5.0) g/dL Urine Appearance (Clear) Urine Protein (Negative) Urine Blood (Negative) Ur Leukocyte Esterase (Negative) Urine RBC (0-5) /hpf Urine WBC (0-5) /hpf Urine WBC Clumps (None) /hpf Urine Bacteria (None) /hpf Urine Mucus (None) /hpf Crossmatch See Detail 12/25/20 12/25/20 12/25/20 Range/Units 06:53 06:53 07:23 WBC (3.8-10.6) k/uL RBC 2.21 L (3.80-5.40) m/uL Hgb 6.5 L* (11.4-16.0) gm/dL Hct 22.1 L (34.0-46.0) % MCV 100.0 H (80.0-97.0) fL MCHC 29.4 L (32.0-37.0) g/dL Plt Count (150-450) k/uL MPV 9.0 L (9.5-12.2) fL Neutrophils # (1.3-7.7) k/uL Lymphocytes # (1.0-4.8) k/uL INR (<1.2) D-Dimer (<0.60) mg/L FEU Sodium (137-145) mmol/L BUN 41.0 H (7-17) mg/dL Creatinine (0.52-1.04) mg/dL Est GFR (CKD-EPI)AfAm 52.7 L (60.0-200.0) Est GFR (CKD-EPI)NonAf 45.4 L (60.0-200.0) BUN/Creatinine Ratio 34.17 H (12.00-20.00) Ratio Glucose 121 H (74-99) mg/dL POC Glucose (mg/dL) 144 H (75-99) mg/dL Calcium 8.0 L (8.7-10.3) mg/dL ALT (4-34) U/L Alkaline Phosphatase (38-126) U/L Total Protein (6.3-8.2) g/dL Albumin (3.5-5.0) g/dL Urine Appearance (Clear) Urine Protein (Negative) Urine Blood (Negative) Ur Leukocyte Esterase (Negative) Urine RBC (0-5) /hpf Urine WBC (0-5) /hpf Urine WBC Clumps (None) /hpf Urine Bacteria (None) /hpf Urine Mucus (None) /hpf Crossmatch 12/25/20 Range/Units 11:44 WBC (3.8-10.6) k/uL RBC (3.80-5.40) m/uL Hgb (11.4-16.0) gm/dL Hct (34.0-46.0) % MCV (80.0-97.0) fL MCHC (32.0-37.0) g/dL Plt Count (150-450) k/uL MPV (9.5-12.2) fL Neutrophils # (1.3-7.7) k/uL Lymphocytes # (1.0-4.8) k/uL INR (<1.2) D-Dimer (<0.60) mg/L FEU Sodium (137-145) mmol/L BUN (7-17) mg/dL Creatinine (0.52-1.04) mg/dL Est GFR (CKD-EPI)AfAm (60.0-200.0) Est GFR (CKD-EPI)NonAf (60.0-200.0) BUN/Creatinine Ratio (12.00-20.00) Ratio Glucose (74-99) mg/dL POC Glucose (mg/dL) 123 H (75-99) mg/dL Calcium (8.7-10.3) mg/dL ALT (4-34) U/L Alkaline Phosphatase (38-126) U/L Total Protein (6.3-8.2) g/dL Albumin (3.5-5.0) g/dL Urine Appearance (Clear) Urine Protein (Negative) Urine Blood (Negative) Ur Leukocyte Esterase (Negative) Urine RBC (0-5) /hpf Urine WBC (0-5) /hpf Urine WBC Clumps (None) /hpf Urine Bacteria (None) /hpf Urine Mucus (None) /hpf Crossmatch Microbiology - Last 24 Hours (Table) 12/24/20 21:52 Urine Culture - Preliminary Urine,Voided Assessment and Plan Assessment: This is a 70-year-old female with complex past medical history noted below that presented to the emergency room with chest pain. Patient was evaluated in the ER and admitted to the hospital for further management of her medical problems noted below. 1. Acute on chronic symptomatic anemia: Patient received 1 unit of PRBC last night for hemoglobin of 6.7 and repeat hemoglobin this morning is 6.5. I would order another unit of blood. 2. History of recurrent GI bleed with recent EGD in October of this year showing evidence of superficial duodenal ulcer status post cautery and 2 small gastric angiectasia. GI consulted for further evaluation. Continue Protonix. 3. Pericardial effusion, noticed incidentally noticed on CT angiogram of the chest. No evidence of temporal now. I would obtain echocardiogram and consult cardiology for further evaluation 4. UTI, started on IV ceftriaxone awaiting urine culture. I would order bladder scan to rule out retention and urine stasis 5. Elevated d-dimer, CT angiogram of the chest negative for PE 6. Acute diastolic heart failure exacerbation with known severe pulmonary hypertension/cor pulmonale: Started on IV Lasix 40 mg twice daily. Repeat echocardiogram pending. 7. Chronic medical problems, type 2 diabetes, essential hypertension, hyperlipidemia, COPD 8. DVT prophylaxis with SCD
--- NOTE | 2020-12-25 14:00 | ECHOF ---
Referral Reason:Pericardial effusion MEASUREMENTS -------- HEIGHT: 149.9 cm WEIGHT: 68.0 kg BP: 94/52 RVIDd: 3.0 cm (< 3.3) IVSd: 1.3 cm (0.6 - 1.1) LVIDd: 4.4 cm (3.9 - 5.3) LVPWd: 1.3 cm (0.6 - 1.1) IVSs: 1.6 cm LVIDs: 2.7 cm LVPWs: 1.7 cm LA Diam: 4.0 cm (2.7 - 3.8) LAESV Index (A-L): 35.57 ml/m Ao Diam: 3.0 cm (2.0 - 3.7) AV Cusp: 1.7 cm (1.5 - 2.6) MV EXCURSION: 18.807 mm (> 18.000) MV EF SLOPE: 21 mm/s (70 - 150) EPSS: 1.1 cm MV E Neal: 1.58 m/s MV DecT: 249 ms MV A Neal: 1.55 m/s MV E/A Ratio: 1.02 AV maxP.96 mmHg AV meanP.82 mmHg RAP: 5.00 mmHg RVSP: 38.04 mmHg FINDINGS -------- Sinus rhythm. This was a technically adequate study. The left ventricular size is normal. There is mild concentric left ventricular hypertrophy. Overa ll left ventricular systolic function is low-normal with, an EF between 50 - 55 %. The right ventricle is normal in size. LA is moderately dilated 34-39 ml/m2 The right atrium is normal in size. Interatrial and interventricular septum intact. There is mild aortic valve sclerosis. There is mild aortic stenosis present. Peak/mean gradient a cross the Aortic Valve is 32.96mmHg / 18.82mmHg. The mitral valve leaflets are mildly thickened. Mild mitral annular calcification present. Mild m itral regurgitation is present. Mild tricuspid regurgitation present. There is mild pulmonary hypertension. The right ventricular systolic pressure, as measured by Doppler, is 38.04mmHg. Trace/mild (physiologic) pulmonic regurgitation. The aortic root size is normal. Normal inferior vena cava with normal inspiratory collapse consistent with estimated right atrial pre ssure of 5 mmHg. Echo free space indicative of a pericardial fat pad. There is a small to moderate, generalized conchita cardial effusion present. CONCLUSIONS -------- 1. The left ventricular size is normal. 2. There is mild concentric left ventricular hypertrophy. 3. Overall left ventricular systolic function is low-normal with, an EF between 50 - 55 %. 4. LA is moderately dilated 34-39 ml/m2 5. There is mild aortic valve sclerosis. 6. There is mild aortic stenosis present. 7. Peak/mean gradient across the Aortic Valve is 32.96mmHg / 18.82mmHg. 8. The mitral valve leaflets are mildly thickened. 9. Mild mitral annular calcification present. 10. Mild mitral regurgitation is present. 11. Mild tricuspid regurgitation present. 12. There is mild pulmonary hypertension. 13. The right ventricular systolic pressure, as measured by Doppler, is 38.04mmHg. 14. Trace/mild (physiologic) pulmonic regurgitation. 15. Echo free space indicative of a pericardial fat pad. 16. There is a small to moderate, generalized pericardial effusion present. ELECTRICIAN SUBSTATION: Eliza Mariano RDCS
[2020-12-25 15:13] LABS: Hemoglobin A1C 5.5 % (4.0-6.0)
[2020-12-25] MEDS ORDERED: MAGNESIUM CITRATE 296 ML BOTTLE PO ONE (17:00)
[2020-12-25 17:11] LABS: Glucose,Whole Blood 115 mg/dL (75-99)
[2020-12-25 21:39] LABS: Glucose,Whole Blood 143 mg/dL (75-99)
[2020-12-26] MEDS: INSULIN ASPART (NovoLOG) 100 UNIT/ML VIAL SQ SCH ×5 (00:40→21:27)
[2020-12-26] MEDS: BUDESONIDE 1 MG/2 ML NEBU INHALATION SCH ×2 (07:11→19:49)
[2020-12-26] MEDS: FORMOTEROL FUMARATE 20 MCG/2 ML NEBU INHALATION SCH ×2 (07:11→19:49)
[2020-12-26] MEDS: IPRATROPIUM-ALBUTEROL 3 ML NEB INHALATION PRN ×3 (07:11→19:49)
[2020-12-26 07:41] LABS: Glucose,Whole Blood 142 mg/dL (75-99)
[2020-12-26] MEDS ORDERED: SIMETHICONE 40 MG/0.6 ML DROPS 2,000 MG/30 ML BOTTLE PO ONE (07:57)
--- NOTE | 2020-12-26 08:39 | PN ---
PROGRESS NOTE DATE OF DICTATION: December 26, 2020 Patient is a 70-year-old white female admitted to the hospital with recurrent anemia with no active GI bleed. She had multiple EGDs in the past. The last one in October of 2019 which revealed small gastric and duodenal angioectasia that were cauterized. 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 She presented with a hemoglobin of 6.5, received 2 units of PRBC transfusion and repeat CBC this morning is still pending. She is scheduled for a small bowel capsule endoscopy today. She denies any symptoms. PHYSICAL EXAMINATION: Appears comfortable. VITAL SIGNS: Stable. Blood pressure is 133/70, pulse rate 85, temperature 98.5. HEENT examination unremarkable. Conjunctivae pink. Sclerae anicteric. Oral cavity no lesions. NECK: No JVD or lymph node enlargement. CHEST: Clear to auscultation. HEART: Regular rate and rhythm. ABDOMEN: Soft. Bowel sounds are positive. No organomegaly. EXTREMITIES: No pedal edema. NEURO: She is alert and oriented x3. No focal deficits. LABS: No labs from today. Yesterday hemoglobin was 6.5. IMPRESSION: 1. Severe symptomatic anemia with a hemoglobin of 6.5 g/dL secondary to occult gastrointestinal blood loss, multiple EGDs in the last one year. The last one in October of 2020 showed small gastric and duodenal angiectasia that was cauterized. Last colonoscopy was in April of 2020 that showed cecal AVMs and cauterized. 2. Rule out small bowel source of bleeding. RECOMMENDATIONS: 1. Await CBC from today. 2. Patient is scheduled for a small bowel capsule endoscopy today and based on that, we will decide if she needs any further endoscopic intervention. 3. We will follow with you closely. Thank you for this consultation. MMODL / IJN: [id number] /
[2020-12-26] MEDS: ATORVASTATIN 40 MG TAB PO SCH (08:47)
[2020-12-26] MEDS: HYDROcodone/APAP 7.5-325MG 1 EACH TAB PO PRN ×2 (09:07→21:31)
[2020-12-26] MEDS: FUROSEMIDE 10 MG/ML 4 ML VIAL IV SCH (09:07)
[2020-12-26] MEDS: ESCITALOPRAM 20 MG TAB PO SCH (09:07)
[2020-12-26] MEDS: PANTOPRAZOLE 40 MG/10 ML VIAL IVP SCH ×2 (09:07→21:28)
[2020-12-26 09:08] LABS: Basophils # (A) 0.02 X 10*3/uL (0.00-0.10); Basophils % (A) 0.2 %; Eosinophils # (A) 0.16 X 10*3/uL (0.04-0.35); Eosinophils % (A) 1.7 %; HCT 26.9 % (37.2-46.3); HGB 8.2 g/dL (12.0-15.0); Lymphocytes # (A) 0.53 X 10*3/uL (0.90-5.00); Lymphocytes % (A) 5.6 %; MCH 29.4 pg (27.0-32.0); MCHC 30.5 g/dL (32.0-37.0); MCV 96.4 fL (80.0-97.0); Monocytes # (A) 1.08 X 10*3/uL (0.20-1.00); Monocytes % (A) 11.4 %; Neutrophils # (A) 7.62 X 10*3/uL (1.80-7.70); Neutrophils % (A) 80.3 %; Platelet Count 400 X 10*3/uL (140-440); RBC 2.79 X 10*6/uL (4.10-5.20); RDW 15.9 % (11.5-14.5); WBC 9.49 X 10*3/uL (4.50-10.00)
[2020-12-26 09:37] LABS: African American GFR (CKD) 65.6 (60.0-200.0); Anion Gap 8.6 mmol/L (4.00-12.00); Calcium 8.4 mg/dL (8.7-10.3); Carbon Dioxide 24.4 mmol/L (21.6-31.8); Magnesium 1.9 mg/dL (1.5-2.4); Non-African American GFR(CKD) 56.6 (60.0-200.0); Potassium 4.3 mmol/L (3.5-5.5)
[2020-12-26 11:23] LABS: Glucose,Whole Blood 142 mg/dL (75-99)
--- NOTE | 2020-12-26 11:56 | P.PN ---
Subjective Progress Note Date: 12/26/20 Patient is doing fairly well today. She denies any evidence of ongoing bleed. She always tells me that she wants to get out of here as soon as possible. She was frustrated that she may not be able to make it to her eye doctor appointment tomorrow. I explained to her acuity of her illness and the necessity to be in the hospital until she is more stable. Objective - Vital Signs Vital signs: Vital Signs Temp 98.5 F 12/26/20 07:36 Pulse 85 12/26/20 07:36 Resp 20 12/26/20 07:36 BP 139/72 12/26/20 07:36 Pulse Ox 95 12/26/20 07:36 Intake & Output 12/25/20 12/26/20 12/26/20 18:59 06:59 18:59 Intake Total 950 320 Output Total 300 Balance 650 320 Intake: Oral 640 320 Blood Product 310 Rc As-1 Unit 310 [id number] Output: Urine 300 Other: Voiding Method Bedside Commode Diaper # Voids 3 5 # Bowel Movements 3 - Exam General: The patient is awake and alert, in no distress Eye: there is normal conjunctiva bilaterally. Neck: The neck is supple, there is no JVD. Cardiovascular: Normal S1-S2, no S3-S4, no murmurs. Respiratory: Lungs clear to auscultation bilaterally Gastrointestinal: Abdomen is soft, nontender Musculoskeletal: There is no pedal edema. Neurological:. Speech is normal. Skin: Skin is warm and dry - Labs CBC & Chem 7: 12/26/20 06:04 12/26/20 06:04 Labs: Abnormal Lab Results - Last 24 Hours (Table) 12/24/20 12/25/20 12/25/20 Range/Units 23:17 06:53 06:53 RBC 2.21 L (4.10-5.20) X 10*6/uL Hgb 6.5 L* (12.0-15.0) g/dL Hct 22.1 L (37.2-46.3) % MCV 100.0 H (80.0-97.0) fL MCHC 29.4 L (32.0-37.0) g/dL RDW (11.5-14.5) % MPV 9.0 L (9.5-12.2) fL Immature Gran # (0.00-0.04) X 10*3/uL Lymphocytes # (0.90-5.00) X 10*3/uL Monocytes # (0.20-1.00) X 10*3/uL BUN 41.0 H (9.0-27.0) mg/dL Est GFR (CKD-EPI)AfAm 52.7 L (60.0-200.0) Est GFR (CKD-EPI)NonAf 45.4 L (60.0-200.0) BUN/Creatinine Ratio 34.17 H (12.00-20.00) Ratio Glucose 121 H (70-110) mg/dL POC Glucose (mg/dL) (75-99) mg/dL Calcium 8.0 L (8.7-10.3) mg/dL Crossmatch See Detail 12/25/20 12/25/20 12/25/20 Range/Units 11:44 17:03 21:37 RBC (4.10-5.20) X 10*6/uL Hgb (12.0-15.0) g/dL Hct (37.2-46.3) % MCV (80.0-97.0) fL MCHC (32.0-37.0) g/dL RDW (11.5-14.5) % MPV (9.5-12.2) fL Immature Gran # (0.00-0.04) X 10*3/uL Lymphocytes # (0.90-5.00) X 10*3/uL Monocytes # (0.20-1.00) X 10*3/uL BUN (9.0-27.0) mg/dL Est GFR (CKD-EPI)AfAm (60.0-200.0) Est GFR (CKD-EPI)NonAf (60.0-200.0) BUN/Creatinine Ratio (12.00-20.00) Ratio Glucose (70-110) mg/dL POC Glucose (mg/dL) 123 H 115 H 143 H (75-99) mg/dL Calcium (8.7-10.3) mg/dL Crossmatch 12/26/20 12/26/20 12/26/20 Range/Units 06:04 06:04 07:39 RBC 2.79 L (4.10-5.20) X 10*6/uL Hgb 8.2 L (12.0-15.0) g/dL Hct 26.9 L (37.2-46.3) % MCV (80.0-97.0) fL MCHC 30.5 L (32.0-37.0) g/dL RDW 15.9 H (11.5-14.5) % MPV 9.0 L (9.5-12.2) fL Immature Gran # 0.08 H (0.00-0.04) X 10*3/uL Lymphocytes # 0.53 L (0.90-5.00) X 10*3/uL Monocytes # 1.08 H (0.20-1.00) X 10*3/uL BUN 29.0 H (9.0-27.0) mg/dL Est GFR (CKD-EPI)AfAm (60.0-200.0) Est GFR (CKD-EPI)NonAf 56.6 L (60.0-200.0) BUN/Creatinine Ratio 29.00 H (12.00-20.00) Ratio Glucose 122 H (70-110) mg/dL POC Glucose (mg/dL) 142 H (75-99) mg/dL Calcium 8.4 L (8.7-10.3) mg/dL Crossmatch 12/26/20 Range/Units 11:20 RBC (4.10-5.20) X 10*6/uL Hgb (12.0-15.0) g/dL Hct (37.2-46.3) % MCV (80.0-97.0) fL MCHC (32.0-37.0) g/dL RDW (11.5-14.5) % MPV (9.5-12.2) fL Immature Gran # (0.00-0.04) X 10*3/uL Lymphocytes # (0.90-5.00) X 10*3/uL Monocytes # (0.20-1.00) X 10*3/uL BUN (9.0-27.0) mg/dL Est GFR (CKD-EPI)AfAm (60.0-200.0) Est GFR (CKD-EPI)NonAf (60.0-200.0) BUN/Creatinine Ratio (12.00-20.00) Ratio Glucose (70-110) mg/dL POC Glucose (mg/dL) 142 H (75-99) mg/dL Calcium (8.7-10.3) mg/dL Crossmatch Microbiology - Last 24 Hours (Table) 12/24/20 21:52 Urine Culture - Preliminary Urine,Voided Assessment and Plan Assessment: This is a 70-year-old female with complex past medical history noted below that presented to the emergency room with chest pain. Patient was evaluated in the ER and admitted to the hospital for further management of her medical problems noted below. 1. Acute on chronic symptomatic anemia: Patient received 2 units of blood during this admission. Hemoglobin stabilized. We will continue to monitor closely. 2. History of recurrent GI bleed with recent EGD in October of this year showing evidence of superficial duodenal ulcer status post cautery and 2 small gastric angiectasia. GI consulted for further evaluation. Continue Protonix. Patient is having Endoscopy Test Done Today. 3. Pericardial effusion, noticed incidentally noticed on CT angiogram of the chest. No evidence of temponade. I ordered echocardiogram and consulted cardiology for further evaluation 4. UTI, started on IV ceftriaxone awaiting urine culture. I would order bladder scan to rule out retention and urine stasis 5. Elevated d-dimer, CT angiogram of the chest negative for PE 6. Acute diastolic heart failure exacerbation with known severe pulmonary hypertension/cor pulmonale: Started on IV Lasix 40 mg twice daily. Repeat echocardiogram pending. Repeat chest x-ray and BNP in the morning 7. Chronic medical problems, type 2 diabetes, essential hypertension, hyperlipidemia, COPD 8. DVT prophylaxis with SCD
--- NOTE | 2020-12-26 15:18 | CONS ---
CONSULTATION Mrs. Ban Estrada is a 70-year-old lady who has been admitted to the hospital with increasing shortness of breath. She has history of COPD, oxygen dependent. However, she has no recent episodes of any cough or fever. She has additionally type 2 diabetes, hypertension, and hyperlipidemia. After arrival an echocardiogram was performed and the study revealed a small to moderate-sized circumferential pericardial effusion and I was asked to see her in this regard. The patient had a CT angiogram performed because of an abnormal D-dimer and the study revealed that there was evidence of pericardial effusion but no evidence of any pulmonary embolism. There was some atelectasis. The patient does not recall any recent flu-like illness or any upper respiratory tract infection. She has COPD and uses oxygen at home. She also has history of some GI bleeding as well. Clinically, it appears that her overall condition has deteriorated but it is unclear if she had any pleuritic pain either recent or in the remote past. She actually denies any chest discomfort and her only issue is shortness of breath that seems to have progressively gotten worse. There was also a question of some mild pleural effusion as well. LABORATORY DATA: Suggested that the D-dimer was elevated and CT angio revealed no evidence of pulmonary embolism. Echocardiogram reveals a small to moderate-sized effusion, but it is not compromising the performance off the right or left ventricle at all. Her renal function is normal. At the time of my evaluation, she is resting comfortably. She was also found to have a significantly low hemoglobin at 6.7 and received some blood transfusion. PAST MEDICAL HISTORY: 1. Type 2 diabetes mellitus. 2. Hypertension. 3. Hyperlipidemia. 4. COPD, oxygen dependent. 5. Hypothyroidism. 6. The patient is status post cholecystectomy and orthopedic surgery. MEDICATIONS: Medications at home include atorvastatin 40 mg daily, Pulmicort inhaler, [place] for pain, Protonix, magnesium, Lasix 40 mg daily, lisinopril 10 mg daily, Lexapro and she takes metformin 1000 mg b.i.d. and Abilify. ALLERGIES: She is allergic to PENICILLIN, DARVON AND ALSO CIPRO. PHYSICAL EXAMINATION: On examination, blood pressure is 138/70, pulse rate is 85 per minute and regular. HEENT unremarkable. Fundus was not examined by me. Neck is supple. There is 1 cm JVD. There is no carotid bruit. Heart exam reveals S1 and S2 heard normally. There is a short systolic murmur at the base and left sternal border. There is no evidence of any pericardial rub. Lungs reveal bilateral diminished air entry. Abdomen is soft, nontender. Lower extremities reveal mild edema. Diminished pulses. Central nervous system is normal. EKG revealed sinus mechanism, leftward axis, nonspecific ST-T abnormality. Echo revealed normal LV size and systolic function. Ejection fraction is in the low end of normal. There is a small to moderate-sized pericardial effusion and there is mild gradient across the aortic valve. There is no pulmonary hypertension. IMPRESSION: 1. Small to moderate-sized pericardial effusion which is not hemodynamically significant. 2. Mild aortic stenosis. 3. Hypertension. 4. Hyperlipidemia. 5. Type 2 diabetes mellitus. RECOMMENDATIONS: I am recommending that we will switch her from IV to oral Lasix, initiate her on metoprolol tartrate 25 mg b.i.d., Aldactone 12.5 mg daily, and colchicine 0.6 mg b.i.d. and based on her clinical course, I will make further recommendations. I explained to the patient the pericardial effusion is at this time inconsequential. We will give at least a two week trial of colchicine and re-evaluate her with an echo in the office. Thank you very much for the consult. MMODL / IJN: [id number] /
[2020-12-26] MEDS ORDERED: FUROSEMIDE 20 MG TAB PO SCH (16:00)
[2020-12-26 16:50] LABS: Glucose,Whole Blood 150 mg/dL (75-99)
[2020-12-26 20:18] LABS: Glucose,Whole Blood 221 mg/dL (75-99)
[2020-12-26] MEDS: ARIPiprazole 5 MG TAB PO SCH (21:27)
[2020-12-26] MEDS: traZODone HCL 100 MG TAB PO PRN (21:27)
[2020-12-26] MEDS: METOPROLOL TARTRATE 25 MG TAB PO SCH (21:27)
[2020-12-26] MEDS: COLCHICINE 0.6 MG EACH PO SCH (21:27)
[2020-12-27 07:19] LABS: Glucose,Whole Blood 118 mg/dL (75-99)
[2020-12-27] MEDS: INSULIN ASPART (NovoLOG) 100 UNIT/ML VIAL SQ SCH ×2 (07:25→12:48)
[2020-12-27 07:50] VITALS: BP 136/51; RESP 16; TEMP 98.7
[2020-12-27] MEDS: ATORVASTATIN 40 MG TAB PO SCH (08:32)
[2020-12-27] MEDS: PANTOPRAZOLE 40 MG/10 ML VIAL IVP SCH (08:32)
[2020-12-27] MEDS: METOPROLOL TARTRATE 25 MG TAB PO SCH (08:33)
[2020-12-27] MEDS: ESCITALOPRAM 20 MG TAB PO SCH (08:33)
[2020-12-27] MEDS: HYDROcodone/APAP 7.5-325MG 1 EACH TAB PO PRN (08:33)
[2020-12-27] MEDS: COLCHICINE 0.6 MG EACH PO SCH (08:33)
[2020-12-27] MEDS ORDERED: SPIRONOLACTONE 25 MG TAB PO SCH (09:00)
[2020-12-27] MEDS ORDERED: FUROSEMIDE 40 MG TAB PO SCH (09:00)
[2020-12-27 09:09] LABS: Basophils # (A) 0.02 X 10*3/uL (0.00-0.10); Basophils % (A) 0.3 %; Eosinophils % (A) 2.8 %; HCT 26.6 % (37.2-46.3); HGB 8.1 g/dL (12.0-15.0); Lymphocytes % (A) 11.2 %; MCH 29.6 pg (27.0-32.0); MCHC 30.5 g/dL (32.0-37.0); MCV 97.1 fL (80.0-97.0); Mean Platelet Volume 8.8 fL (9.5-12.2); Monocytes # (A) 0.97 X 10*3/uL (0.20-1.00); Monocytes % (A) 13.6 %; Neutrophils # (A) 5.07 X 10*3/uL (1.80-7.70); Neutrophils % (A) 71.1 %; Platelet Count 388 X 10*3/uL (140-440); RBC 2.74 X 10*6/uL (4.10-5.20); RDW 15.4 % (11.5-14.5); WBC 7.13 X 10*3/uL (4.50-10.00)
[2020-12-27] MEDS: BUDESONIDE 1 MG/2 ML NEBU INHALATION SCH (09:19)
[2020-12-27] MEDS: FORMOTEROL FUMARATE 20 MCG/2 ML NEBU INHALATION SCH (09:19)
[2020-12-27] MEDS: IPRATROPIUM-ALBUTEROL 3 ML NEB INHALATION PRN ×2 (09:19→13:03)
[2020-12-27 09:23] LABS: African American GFR (CKD) 74.6 (60.0-200.0); Anion Gap 5.7 mmol/L (4.00-12.00); BUN/Creat Ratio 22.22 Ratio (12.00-20.00); Calcium 8.3 mg/dL (8.7-10.3); Carbon Dioxide 26.3 mmol/L (21.6-31.8); Magnesium 1.7 mg/dL (1.5-2.4); Non-African American GFR(CKD) 64.3 (60.0-200.0); Potassium 4.1 mmol/L (3.5-5.5)
--- NOTE | 2020-12-27 09:32 | P.PN ---
Subjective Progress Note Date: 12/27/20 HISTORY OF PRESENT ILLNESS: Patient examined this morning with Dr. Gillette. Patient denies chest pain or pressure. She denies shortness of breath. She remains on oral Lasix. Patient also receiving colchicine. Blood pressure 136/51. Heart rate in the 70s. She is on 3 L nasal cannula with oxygen saturations greater than 92%. She is afebrile. PHYSICAL EXAM: VITAL SIGNS: Reviewed. GENERAL: Well-developed in no acute distress. NECK: Supple. No JVD or thyromegaly LUNGS: Respirations even and unlabored. Lungs essentially clear to auscultation bilaterally. HEART: Regular rate and rhythm. S1 and S2 heard. Systolic murmur noted. EXTREMITIES: Normal range of motion. No clubbing or cyanosis. Peripheral pulses intact. No lower extremity edema ASSESSMENT: Small to moderate-sized pericardial effusion Mild aortic stenosis Hypertension Hyperlipidemia Diabetes mellitus COPD with home oxygen use PLAN: Continue current cardiac medications Continue colchicine for 2 weeks Patient may follow up in the office with Dr. Merdia and will have a repeat echocardiogram performed at that time We will sign off. Please reconsult if needed. Nurse practitioner note has been reviewed by physician. Signing provider agrees with the documented findings, assessment, and plan of care. Objective - Vital Signs Vital signs: Vital Signs Temp 98.7 F 12/27/20 07:49 Pulse 72 12/27/20 09:19 Resp 16 12/27/20 07:49 BP 136/51 12/27/20 07:49 Pulse Ox 92 L 12/27/20 07:49 Intake & Output 12/26/20 12/27/20 12/27/20 18:59 06:59 18:59 Intake Total 640 Balance 640 Intake: Oral 640 Other: Voiding Method Bedside Commode Diaper # Voids 5 3 # Bowel Movements 4 - Labs CBC & Chem 7: 12/27/20 06:41 12/27/20 06:38 Labs: Abnormal Lab Results - Last 24 Hours (Table) 12/26/20 12/26/20 12/26/20 Range/Units 06:04 11:20 16:47 RBC (4.10-5.20) X 10*6/uL Hgb (12.0-15.0) g/dL Hct (37.2-46.3) % MCV (80.0-97.0) fL MCHC (32.0-37.0) g/dL RDW (11.5-14.5) % MPV (9.5-12.2) fL Immature Gran # (0.00-0.04) X 10*3/uL Lymphocytes # (0.90-5.00) X 10*3/uL BUN 29.0 H (9.0-27.0) mg/dL Est GFR (CKD-EPI)NonAf 56.6 L (60.0-200.0) BUN/Creatinine Ratio 29.00 H (12.00-20.00) Ratio Glucose 122 H (70-110) mg/dL POC Glucose (mg/dL) 142 H 150 H (75-99) mg/dL Calcium 8.4 L (8.7-10.3) mg/dL 12/26/20 12/27/20 12/27/20 Range/Units 20:16 06:38 06:41 RBC 2.74 L (4.10-5.20) X 10*6/uL Hgb 8.1 L (12.0-15.0) g/dL Hct 26.6 L (37.2-46.3) % MCV 97.1 H (80.0-97.0) fL MCHC 30.5 L (32.0-37.0) g/dL RDW 15.4 H (11.5-14.5) % MPV 8.8 L (9.5-12.2) fL Immature Gran # 0.07 H (0.00-0.04) X 10*3/uL Lymphocytes # 0.80 L (0.90-5.00) X 10*3/uL BUN (9.0-27.0) mg/dL Est GFR (CKD-EPI)NonAf (60.0-200.0) BUN/Creatinine Ratio 22.22 H (12.00-20.00) Ratio Glucose (70-110) mg/dL POC Glucose (mg/dL) 221 H (75-99) mg/dL Calcium 8.3 L (8.7-10.3) mg/dL 12/27/20 Range/Units 07:17 RBC (4.10-5.20) X 10*6/uL Hgb (12.0-15.0) g/dL Hct (37.2-46.3) % MCV (80.0-97.0) fL MCHC (32.0-37.0) g/dL RDW (11.5-14.5) % MPV (9.5-12.2) fL Immature Gran # (0.00-0.04) X 10*3/uL Lymphocytes # (0.90-5.00) X 10*3/uL BUN (9.0-27.0) mg/dL Est GFR (CKD-EPI)NonAf (60.0-200.0) BUN/Creatinine Ratio (12.00-20.00) Ratio Glucose (70-110) mg/dL POC Glucose (mg/dL) 118 H (75-99) mg/dL Calcium (8.7-10.3) mg/dL Microbiology - Last 24 Hours (Table) 12/24/20 21:52 Urine Culture - Preliminary Urine,Voided Group D Enterococcus
[2020-12-27 11:45] LABS: Glucose,Whole Blood 188 mg/dL (75-99)
[2020-12-27 13:06] VITALS: PULSE 80
--- NOTE | 2020-12-27 13:40 | P.DS ---
Providers Date of admission: 12/24/20 22:56 Expected date of discharge: 12/27/20 Attending physician: Noelle [place] MD Consults: 12/25/20 04:10 Consult Physician Urgent Consulting Provider: Gabriella Kessler Consult Reason/Comments: GIB Do you want consulting provider notified?: Yes Primary care physician: [facility] Course: This is a 70-year-old female with complex past medical history noted below that presented to the emergency room with chest pain. Patient was evaluated in the ER and admitted to the hospital for further management of her medical problems noted below. 1. Acute on chronic symptomatic anemia: Patient received 2 units of blood during this admission. Hemoglobin stabilized. Advised to repeat hemoglobin within the next 3-5 days 2. History of recurrent GI bleed with recent EGD in October of this year showing evidence of superficial duodenal ulcer status post cautery and 2 small gastric angiectasia. GI consulted for further evaluation. Patient underwent a capsule endoscopy with no evidence of ongoing bleed. She was cleared by GI for discharge. 3. Pericardial effusion, mild to moderate, noticed incidentally noticed on CT angiogram of the chest. No evidence of temponade. Echocardiogram done. Patient was seen and evaluated by cardiology. Started on colchicine for 2 weeks.. Follow-up with cardiology in the office as directed for repeat echocardiogram. 4. UTI, started on IV ceftriaxone awaiting urine culture. Bladder scan with no evidence of retention. Patient finished 3 days course of antibiotic in the hospital. 5. Elevated d-dimer, CT angiogram of the chest negative for PE 6. Acute diastolic heart failure exacerbation with known severe pulmonary hypertension/cor pulmonale: Started on IV Lasix 40 mg twice daily. Repeat echocardiogram showed preserved ejection fraction. 7. Chronic medical problems, type 2 diabetes, essential hypertension, hyperlipidemia, COPD Patient will be discharged home in a stable condition. She will follow-up with her PCP and cardiology as directed. Patient Condition at Discharge: Serious Plan - Discharge Summary Discharge Rx Participant: No New Discharge Prescriptions: New Colchicine [Colcrys] 0.6 mg PO BID 13 Days #26 each Metoprolol Tartrate [Lopressor] 25 mg PO BID #60 tab Spironolactone [Aldactone] 12.5 mg PO DAILY #30 tab Continue Zafirlukast [Accolate] 20 mg PO BID metFORMIN HCL [Glucophage] 1,000 mg PO BID-W/MEALS ARIPiprazole [Abilify] 5 mg PO HS Atorvastatin [Lipitor] 40 mg PO DAILY #30 tab Cholecalciferol [Vitamin D3 (25 Mcg = 1000 Iu)] 1,000 unit PO DAILY Levothyroxine Sodium [Synthroid] 200 mcg PO DAILY Albuterol Sulfate [Ventolin HFA] 1 - 2 puff INHALATION RT-Q6H PRN PRN Reason: Shortness Of Breath Escitalopram [Lexapro] 20 mg PO DAILY Ipratropium-Albuterol Nebulize [Duoneb 0.5 mg-3 mg/3 ml Soln] 3 ml INHALATION RT-Q2H PRN ml PRN Reason: Shortness Of Breath Or Wheezing Formoterol Fumarate [Perforomist] 20 mcg INHALATION RT-BID nebu Pantoprazole Sodium [Protonix] 40 mg PO BID #60 tablet. Budesonide [Pulmicort] 1 mg INHALATION RT-BID ml HYDROcodone/APAP 7.5-325MG [[place] 7.5-325] 1 tab PO Q6H PRN #12 tab PRN Reason: Pain Furosemide [Lasix] 40 mg PO DAILY Magnesium Oxide [Mag-Ox] 400 mg PO DAILY #30 tablet traZODone HCL 100 mg PO HS PRN PRN Reason: Sedation Lisinopril [Zestril] 10 mg PO DAILY Discharge Medication List Zafirlukast [Accolate] 20 mg PO BID 02/06/14 [History] ARIPiprazole [Abilify] 5 mg PO HS 02/07/18 [History] metFORMIN HCL [Glucophage] 1,000 mg PO BID-W/MEALS 02/07/18 [History] Atorvastatin [Lipitor] 40 mg PO DAILY #30 tab 09/10/18 [Rx] Cholecalciferol [Vitamin D3 (25 Mcg = 1000 Iu)] 1,000 unit PO DAILY 09/03/19 [History] Levothyroxine Sodium [Synthroid] 200 mcg PO DAILY 09/03/19 [History] Albuterol Sulfate [Ventolin HFA] 1 - 2 puff INHALATION RT-Q6H PRN 03/11/20 [History] Escitalopram [Lexapro] 20 mg PO DAILY 03/11/20 [History] Budesonide [Pulmicort] 1 mg INHALATION RT-BID ml 03/27/20 [Rx] Formoterol Fumarate [Perforomist] 20 mcg INHALATION RT-BID nebu 03/27/20 [Rx] HYDROcodone/APAP 7.5-325MG [[place] 7.5-325] 1 tab PO Q6H PRN #12 tab 03/27/20 [Rx] Ipratropium-Albuterol Nebulize [Duoneb 0.5 mg-3 mg/3 ml Soln] 3 ml INHALATION RT-Q2H PRN ml 03/27/20 [Rx] Pantoprazole Sodium [Protonix] 40 mg PO BID #60 tablet.dr 03/27/20 [Rx] Furosemide [Lasix] 40 mg PO DAILY 04/27/20 [History] Magnesium Oxide [Mag-Ox] 400 mg PO DAILY #30 tablet 04/27/20 [Rx] traZODone HCL 100 mg PO HS PRN 05/15/20 [History] Lisinopril [Zestril] 10 mg PO DAILY 05/28/20 [History] Colchicine [Colcrys] 0.6 mg PO BID 13 Days #26 each 12/27/20 [Rx] Metoprolol Tartrate [Lopressor] 25 mg PO BID #60 tab 12/27/20 [Rx] Spironolactone [Aldactone] 12.5 mg PO DAILY #30 tab 12/27/20 [Rx] Follow up Appointment(s)/Referral(s): [facility], [NON-STAFF] - As Needed Eunice Merida MD [STAFF PHYSICIAN] - 1 Week Connor Carreon [Primary Care Provider] - 1-2 days Discharge Disposition: HOME SELF-CARE
--- NOTE | 2020-12-27 15:13 | P.PN ---
Subjective Progress Note Date: 12/27/20 Principal diagnosis: Anemia This is a very pleasant 70-year-old white female who presented to the hospital with shortness of breath, weakness and fatigue with an initial hemoglobin of 6.7. She was given a unit of PRBC transfusion. The patient has a history of recurrent anemia for at least the last 1 year duration. She's had multiple upper endoscopies and colonoscopy done during the course of the last year and has received a total of at least 10 units of PRBC transfusion. Her most recent hospitalization was on 10/31/2020 where she had an upper endoscopy that revealed 2 small angiectasia in the duodenum that were cauterized into small in the stomach that were also cauterized. Yesterday she underwent a small bowel capsule endoscopy revealed multiple scattered angioectasia of any active bleeding. These hemoglobin remained stable at 8.1. She denies any signs or sym ptoms of GI blood loss, no dark stools, maroon-colored stools, or bright red blood per rectum. She denies abdominal pain, nausea, or vomiting. Objective - Vital Signs Vital signs: Vital Signs Temp 98.7 F 12/27/20 07:49 Pulse 76 12/27/20 09:40 Resp 16 12/27/20 07:49 BP 136/51 12/27/20 07:49 Pulse Ox 92 L 12/27/20 07:49 Intake & Output 12/26/20 12/27/20 12/27/20 18:59 06:59 18:59 Intake Total 640 Balance 640 Intake: Oral 640 Other: Voiding Method Bedside Commode Diaper # Voids 5 3 # Bowel Movements 4 - Exam General appearance: The patient is alert, oriented, appears in no acute distress. HET: Head is normocephalic and atraumatic. Conjunctiva pink. Sclera anicteric. Neck: Supple without lymphadenopathy. Abdomen: Soft, nontender, nondistended with bowel sounds. No guarding or rigidity. Extremities: Normal skin color and turgor. No pedal edema Skin: No rashes, no jaundice Neurological: No focal deficits. Alert and oriented 3. - Labs CBC & Chem 7: 12/27/20 06:41 12/27/20 06:38 Labs: Abnormal Lab Results - Last 24 Hours (Table) 12/26/20 12/26/20 12/26/20 Range/Units 11:20 16:47 20:16 RBC (4.10-5.20) X 10*6/uL Hgb (12.0-15.0) g/dL Hct (37.2-46.3) % MCV (80.0-97.0) fL MCHC (32.0-37.0) g/dL RDW (11.5-14.5) % MPV (9.5-12.2) fL Immature Gran # (0.00-0.04) X 10*3/uL Lymphocytes # (0.90-5.00) X 10*3/uL BUN/Creatinine Ratio (12.00-20.00) Ratio POC Glucose (mg/dL) 142 H 150 H 221 H (75-99) mg/dL Calcium (8.7-10.3) mg/dL 12/27/20 12/27/20 12/27/20 Range/Units 06:38 06:41 07:17 RBC 2.74 L (4.10-5.20) X 10*6/uL Hgb 8.1 L (12.0-15.0) g/dL Hct 26.6 L (37.2-46.3) % MCV 97.1 H (80.0-97.0) fL MCHC 30.5 L (32.0-37.0) g/dL RDW 15.4 H (11.5-14.5) % MPV 8.8 L (9.5-12.2) fL Immature Gran # 0.07 H (0.00-0.04) X 10*3/uL Lymphocytes # 0.80 L (0.90-5.00) X 10*3/uL BUN/Creatinine Ratio 22.22 H (12.00-20.00) Ratio POC Glucose (mg/dL) 118 H (75-99) mg/dL Calcium 8.3 L (8.7-10.3) mg/dL Microbiology - Last 24 Hours (Table) 12/24/20 21:52 Urine Culture - Preliminary Urine,Voided Group D Enterococcus Assessment and Plan (1) Symptomatic anemia Narrative/Plan: Pleasant female who presented to the hospital with symptomatic anemia with s hortness of breath, weakness, and fatigue. She's had multiple EGDs in the last year. She had initial hemoglobin 0.5, she was transfused with 1 unit of PRBC. She's had multiple upper endoscopies which have revealed small gastric and duodenal angiectasia in the past with cauterizing, she had a colonoscopy last in April 2020 that showed cecal AVMs were cauterized. History she underwent a small bowel video capsule endoscopy which showed multiple scattered nonbleeding angiectasia in the small bowel. Current Visit: Yes Status: Acute Code(s): D64.9 - ANEMIA, UNSPECIFIED SNOMED Code(s): 694822854 (2) AVM (arteriovenous malformation) of small bowel, acquired Current Visit: Yes Status: Acute Code(s): K55.20 - ANGIODYSPLASIA OF COLON WITHOUT HEMORRHAGE SNOMED Code(s): 8592372216472 Plan: 1. Continue symptomatic and supportive care 2. Will need close monitoring of hemoglobin, transfusion for hemoglobin less than 7 3. Discuss with patient recommend outpatient follow-up with hematology 4. Discussed with patient if she continues to have evidence of GI bleed, likely will need to transfer to a tertiary center for advanced endoscopy. Patient verbalized understanding and agreeable. 5. Discussed with patient to avoid NSAIDs Thank you for this consultation, the patient may be discharged home from a gastroenterology standpoint Dr. King I agree with the dictator's note, documented as a scribe by Cammie Monreal.
== END 2020-12-27 15:10 | disposition home or self-care (01) | DRG 292 ==
LOC: EC 21:03 → 4SSUR 22:56
PROVIDERS: ADMIT Internal Medicine; ATTEND Internal Medicine
PROC: 30233N1 Transfusion of Nonautologous Red Blood Cells into Peripheral Vein, Percutaneous Approach (ICD-10-PCS; principal; 2020-12-24)
DX: I11.0 Hypertensive heart disease with heart failure (principal); N39.0 Urinary tract infection, site not specified; I31.3 Pericardial effusion (noninflammatory); K92.2 Gastrointestinal hemorrhage, unspecified; J96.11 Chronic respiratory failure with hypoxia; J98.11 Atelectasis; I50.33 Acute on chronic diastolic (congestive) heart failure; I27.29 Other secondary pulmonary hypertension; Z20.822 Contact with and (suspected) exposure to COVID-19; I27.81 Cor pulmonale (chronic); Z79.899 Other long term (current) drug therapy; D64.9 Anemia, unspecified; E78.5 Hyperlipidemia, unspecified; E11.9 Type 2 diabetes mellitus without complications; R79.89 Other specified abnormal findings of blood chemistry; J44.9 Chronic obstructive pulmonary disease, unspecified; Z99.81 Dependence on supplemental oxygen; Z80.8 Family history of malignant neoplasm of other organs or systems; Z82.49 Family history of ischemic heart disease and other diseases of the circulatory system; Z87.891 Personal history of nicotine dependence; Z79.890 Hormone replacement therapy; Z87.11 Personal history of peptic ulcer disease; E03.9 Hypothyroidism, unspecified; F41.9 Anxiety disorder, unspecified; Z90.49 Acquired absence of other specified parts of digestive tract; F32.9 Major depressive disorder, single episode, unspecified; Z79.84 Long term (current) use of oral hypoglycemic drugs; Z87.442 Personal history of urinary calculi; Z91.81 History of falling; Z85.828 Personal history of other malignant neoplasm of skin; Z82.5 Family history of asthma and other chronic lower respiratory diseases; K55.20 Angiodysplasia of colon without hemorrhage; K31.819 Angiodysplasia of stomach and duodenum without bleeding
CPT/HCPCS: 36415; 71046; 71275; 80048; 80053; 81001; 83036; 83605; 83735; 83880; 84484; 85025; 85027; 85379; 85610; 85730; 86850; 86900; 86901; 86920; 87086; 87635; 91110; 93005; 93306; 94640; 94760; 99285

== ENCOUNTER 2021-01-10 23:01 | Emergency (ER) | payer MEDICARE, OTHER ==
--- NOTE | 2021-01-10 23:55 | ED ---
General Adult HPI - General Chief complaint: Recheck/Abnormal Lab/Rx Stated complaint: Abnormal labs Time Seen by Provider: 01/10/21 23:18 Source: patient Mode of arrival: wheelchair Limitations: no limitations - History of Present Illness -: days(s) Radiation: non-radiation Severity scale (1-10): 0 Consistency: constant Improves with: none Worsens with: none Associated Symptoms: malaise, shortness of breath, weakness Treatments Prior to Arrival: none - Related Data Home Medications Medication Instructions Recorded Confirmed Zafirlukast [Accolate] 20 mg PO BID 02/06/14 12/24/20 ARIPiprazole [Abilify] 5 mg PO HS 02/07/18 12/24/20 metFORMIN HCL [Glucophage] 1,000 mg PO BID-W/MEALS 02/07/18 12/24/20 Cholecalciferol [Vitamin D3 (25 1,000 unit PO DAILY 09/03/19 12/24/20 Mcg = 1000 Iu)] Levothyroxine Sodium [Synthroid] 200 mcg PO DAILY 09/03/19 12/24/20 Albuterol Sulfate [Ventolin HFA] 1 - 2 puff INHALATION RT-Q6H PRN 03/11/20 12/24/20 Escitalopram [Lexapro] 20 mg PO DAILY 03/11/20 12/24/20 Furosemide [Lasix] 40 mg PO DAILY 04/27/20 12/24/20 traZODone HCL 100 mg PO HS PRN 05/15/20 12/24/20 Lisinopril [Zestril] 10 mg PO DAILY 05/28/20 12/24/20 Previous Rx's Medication Instructions Recorded Atorvastatin [Lipitor] 40 mg PO DAILY #30 tab 09/10/18 Budesonide [Pulmicort] 1 mg INHALATION RT-BID ml 03/27/20 Formoterol Fumarate [Perforomist] 20 mcg INHALATION RT-BID nebu 03/27/20 HYDROcodone/APAP 7.5-325MG [Sharon 1 tab PO Q6H PRN #12 tab 03/27/20 7.5-325] Ipratropium-Albuterol Nebulize 3 ml INHALATION RT-Q2H PRN ml 03/27/20 [Duoneb 0.5 mg-3 mg/3 ml Soln] Pantoprazole Sodium [Protonix] 40 mg PO BID #60 tablet. 03/27/20 Magnesium Oxide [Mag-Ox] 400 mg PO DAILY #30 tablet 04/27/20 Colchicine [Colcrys] 0.6 mg PO BID 13 Days #26 each 12/27/20 Metoprolol Tartrate [Lopressor] 25 mg PO BID #60 tab 12/27/20 Spironolactone [Aldactone] 12.5 mg PO DAILY #30 tab 12/27/20 Cephalexin [Keflex] 500 mg PO Q6HR #28 cap 01/11/21 Magnesium Oxide [Mag-Ox] 400 mg PO ONCE #30 tablet 01/11/21 Allergies Allergy/AdvReac Type Severity Reaction Status Date / Time adhesive Allergy Rash/Hives Verified 01/10/21 23:12 ciprofloxacin [From Cipro] Allergy Rash/Hives Verified 01/10/21 23:12 ciprofloxacin HCl Allergy Rash/Hives Verified 01/10/21 23:12 [From Cipro] latex Allergy Rash/Hives Verified 01/10/21 23:12 levofloxacin [From Levaquin] Allergy Rash/Hives Verified 01/10/21 23:12 nitrofurantoin Allergy Rash/Hives Verified 01/10/21 23:12 [From Macrobid] nitrofurantoin Allergy Rash/Hives Verified 01/10/21 23:12 macrocrystalline [From Macrobid] Penicillins Allergy Rash/Hives Verified 01/10/21 23:12 propoxyphene HCl Allergy Rash/Hives Verified 01/10/21 23:12 [From Darvon] propoxyphene napsylate Allergy Unknown Verified 01/10/21 23:12 [From Darvocet-N] Review of Systems ROS Statement: Those systems with pertinent positive or pertinent negative responses have been documented in the HPI. ROS Other: All systems not noted in ROS Statement are negative. Past Medical History Past Medical History: Asthma, Chest Pain / Angina, COPD, Diabetes Mellitus, Hy perlipidemia, Hypertension, Osteoarthritis (OA), Respiratory Disorder, Skin Disorder, Thyroid Disorder Additional Past Medical History / Comment(s): Obesity (BMI 35) COPD, asthma, diabetes , depression, 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 The patient is also a recently quit smoker. The patient has chronic back pain. History of Any Multi-Drug Resistant Organisms: None Reported Past Surgical History: Appendectomy, Section, Cholecystectomy, Orthopedic Surgery, Tubal Ligation Additional Past Surgical History / Comment(s): LASER SX JETHRO EYES FOR GLAUCOMA. RT KNEE ARTHROSCOPY. UNDERWENT PERCUTANEOUS NEPHROSTOLITHOTOMY Past Anesthesia/Blood Transfusion Reactions: No Reported Reaction Past Psychological History: Anxiety, Depression Smoking Status: Former smoker Past Alcohol Use History: None Reported Past Drug Use History: None Reported - Past Family History Mother Additional Family Medical History / Comment(s): emphysema, heart valve problems, in her slepp. Brother(s) Family Medical History: Cancer Additional Family Medical History / Comment(s): from oral cancer Father Brother(s) Family Medical History: Cancer Additional Family Medical History / Comment(s): heart disease General Exam Limitations: no limitations General appearance: alert, in no apparent distress Head exam: Present: atraumatic, normocephalic Eye exam: Present: normal appearance Neck exam: Present: normal inspection, full ROM Respiratory exam: Present: normal lung sounds bilaterally. Absent: respiratory distress, wheezes, rales, rhonchi, stridor, accessory muscle use, decreased breath sounds, prolonged expiratory Cardiovascular Exam: Present: regular rate, normal rhythm, systolic murmur (Grade 4/6 systolic ejection murmur). Absent: diastolic murmur, rubs, gallop GI/Abdominal exam: Present: soft. Absent: distended, tenderness, guarding, rebound, rigid, mass Extremities exam: Present: normal inspection, normal capillary refill, pedal edema (There is left-sided edema to the mid pretibial area. Patient states this is chronic.). Absent: calf tenderness Back exam: Present: normal inspection. Absent: CVA tenderness (R), CVA tenderness (L) Neurological exam: Present: alert Skin exam: Present: warm, dry, intact, normal color. Absent: rash Course Vital Signs 01/10/21 01/10/21 01/11/21 23:12 23:20 00:56 Temperature 98.3 F 98.4 F Pulse Rate 98 81 Respiratory 18 20 20 Rate Blood Pressure 163/70 112/50 O2 Sat by Pulse 93 L 92 L Oximetry EKG Findings - EKG Results: EKG: interpreted by ERMD, sinus rhythm (Rate 88 bpm), normal axis, normal QRS, no acute changes - Blocks, [place], Hypertrophy, ST Abn: Repolarization changes or abnormalities: nonspecific abnormality, ST segment, and/or T wave Medical Decision Making - Lab Data Result diagrams: 01/11/21 00:32 01/11/21 00:32 Lab Results 01/11/21 01/11/21 01/11/21 Range/Units 00:32 00:32 00:32 WBC 12.4 H (3.8-10.6) k/uL RBC 2.70 L (3.80-5.40) m/uL Hgb 8.4 L D (11.4-16.0) gm/dL Hct 25.5 L (34.0-46.0) % MCV 94.5 (80.0-100.0) fL MCH 31.0 (25.0-35.0) pg MCHC 32.8 (31.0-37.0) g/dL RDW 14.0 (11.5-15.5) % Plt Count 427 (150-450) k/uL MPV 6.8 Neutrophils % 83 % Lymphocytes % 6 % Monocytes % 7 % Eosinophils % 2 % Basophils % 0 % Neutrophils # 10.2 H (1.3-7.7) k/uL Lymphocytes # 0.7 L (1.0-4.8) k/uL Monocytes # 0.9 (0-1.0) k/uL Eosinophils # 0.3 (0-0.7) k/uL Basophils # 0.0 (0-0.2) k/uL Hypochromasia Slight PT 11.7 (9.0-12.0) sec INR 1.1 (<1.2) APTT 24.3 (22.0-30.0) sec Sodium (137-145) mmol/L Potassium (3.5-5.1) mmol/L Chloride (98-107) mmol/L Carbon Dioxide (22-30) mmol/L Anion Gap mmol/L BUN (7-17) mg/dL Creatinine (0.52-1.04) mg/dL Est GFR (CKD-EPI)AfAm (>60 ml/min/1.73 sqM) Est GFR (CKD-EPI)NonAf (>60 ml/min/1.73 sqM) Glucose (74-99) mg/dL Plasma Lactic Acid Ravi (0.7-2.0) mmol/L Calcium (8.4-10.2) mg/dL Magnesium (1.6-2.3) mg/dL Total Bilirubin (0.2-1.3) mg/dL AST (14-36) U/L ALT (4-34) U/L Alkaline Phosphatase (38-126) U/L Troponin I (0.000-0.034) ng/mL Total Protein (6.3-8.2) g/dL Albumin (3.5-5.0) g/dL TSH (0.465-4.680) mIU/L Urine Color Dark Yellow Urine Appearance Turbid H (Clear) Urine pH 6.5 (5.0-8.0) Ur Specific [place] 1.013 (1.001-1.035) Urine Protein 1+ H (Negative) Urine Glucose (UA) Trace H (Negative) Urine Ketones Negative (Negative) Urine Blood Large H (Negative) Urine Nitrite Negative (Negative) Urine Bilirubin Negative (Negative) Urine Urobilinogen <2.0 (<2.0) mg/dL Ur Leukocyte Esterase Large H (Negative) Urine RBC 18 H (0-5) /hpf Urine WBC >182 H (0-5) /hpf Urine WBC Clumps Many H (None) /hpf Ur Squamous Epith Cells 2 (0-4) /hpf Urine Bacteria Occasional H (None) /hpf 01/11/21 01/11/21 01/11/21 Range/Units 00:32 00:32 00:32 WBC (3.8-10.6) k/uL RBC (3.80-5.40) m/uL Hgb (11.4-16.0) gm/dL Hct (34.0-46.0) % MCV (80.0-100.0) fL MCH (25.0-35.0) pg MCHC (31.0-37.0) g/dL RDW (11.5-15.5) % Plt Count (150-450) k/uL MPV Neutrophils % % Lymphocytes % % Monocytes % % Eosinophils % % Basophils % % Neutrophils # (1.3-7.7) k/uL Lymphocytes # (1.0-4.8) k/uL Monocytes # (0-1.0) k/uL Eosinophils # (0-0.7) k/uL Basophils # (0-0.2) k/uL Hypochromasia PT (9.0-12.0) sec INR (<1.2) APTT (22.0-30.0) sec Sodium 132 L (137-145) mmol/L Potassium 4.8 (3.5-5.1) mmol/L Chloride 100 (98-107) mmol/L Carbon Dioxide 24 (22-30) mmol/L Anion Gap 8 mmol/L BUN 35 H (7-17) mg/dL Creatinine 1.18 H (0.52-1.04) mg/dL Est GFR (CKD-EPI)AfAm 54 (>60 ml/min/1.73 sqM) Est GFR (CKD-EPI)NonAf 47 (>60 ml/min/1.73 sqM) Glucose 213 H (74-99) mg/dL Plasma Lactic Acid Ravi 1.9 (0.7-2.0) mmol/L Calcium 8.8 (8.4-10.2) mg/dL Magnesium 1.4 L (1.6-2.3) mg/dL Total Bilirubin 0.5 (0.2-1.3) mg/dL AST 20 (14-36) U/L ALT 25 (4-34) U/L Alkaline Phosphatase 173 H (38-126) U/L Troponin I <0.012 (0.000-0.034) ng/mL Total Protein 5.7 L (6.3-8.2) g/dL Albumin 2.6 L (3.5-5.0) g/dL TSH 3.390 (0.465-4.680) mIU/L Urine Color Urine Appearance (Clear) Urine pH (5.0-8.0) Ur Specific [place] (1.001-1.035) Urine Protein (Negative) Urine Glucose (UA) (Negative) Urine Ketones (Negative) Urine Blood (Negative) Urine Nitrite (Negative) Urine Bilirubin (Negative) Urine Urobilinogen (<2.0) mg/dL Ur Leukocyte Esterase (Negative) Urine RBC (0-5) /hpf Urine WBC (0-5) /hpf Urine WBC Clumps (None) /hpf Ur Squamous Epith Cells (0-4) /hpf Urine Bacteria (None) /hpf Disposition Clinical Impression: UTI (urinary tract infection), Anemia, Hypomagnesemia Disposition: HOME SELF-CARE Condition: Fair Prescriptions: Cephalexin [Keflex] 500 mg PO Q6HR #28 cap Magnesium Oxide [Mag-Ox] 400 mg PO ONCE #30 tablet Is patient prescribed a controlled substance at d/c from ED?: No Referrals: Connor Carreon [Primary Care Provider] - 1-2 days
[2021-01-11 00:05] VITALS: RESP 20
[2021-01-11 00:49] LABS: Basophils % (A) 0 %; Eosinophils # (A) 0.3 k/uL (0-0.7); Eosinophils % (A) 2 %; HCT 25.5 % (34.0-46.0); Hypochromasia Slight; Lymphocytes # (A) 0.7 k/uL (1.0-4.8); Lymphocytes % (A) 6 %; MCHC 32.8 g/dL (31.0-37.0); MCV 94.5 fL (80.0-100.0); Mean Platelet Volume 6.8; Monocytes # (A) 0.9 k/uL (0-1.0); Monocytes % (A) 7 %; Neutrophils # (A) 10.2 k/uL (1.3-7.7); Neutrophils % (A) 83 %; Platelet Count 427 k/uL (150-450); WBC 12.4 k/uL (3.8-10.6)
[2021-01-11 00:54] LABS: Appearance,Urine Turbid (Clear); Bacteria,Urine Occasional /hpf; Bilirubin,Urine Negative (Negative); Blood,Urine Large (Negative); Color,Urine Dark Yellow; Glucose,Urine (UA) Trace (Negative); Ketones,Urine Negative (Negative); Leukocyte Esterase,Urine Large (Negative); Nitrite,Urine Negative (Negative); PH, Urine 6.5 (5.0-8.0); Protein,Urine 1+ (Negative); RBC,Urine 18 /hpf (0-5); Specific Gravity,Urine 1.013 (1.001-1.035); Squamous Epithelial Cell,Urine 2 /hpf (0-4); Urobilinogen,Urine <2.0 mg/dL (<2.0); WBC,Urine >182 /hpf (0-5)
[2021-01-11 00:57] LABS: HGB 8.4 gm/dL (11.4-16.0)
[2021-01-11 00:59] LABS: Albumin 2.6 g/dL (3.5-5.0); Calcium 8.8 mg/dL (8.4-10.2); INR 1.1 (<1.2); Magnesium 1.4 mg/dL (1.6-2.3); Partial Thromboplastin Time 24.3 sec (22.0-30.0); Potassium 4.8 mmol/L (3.5-5.1); Prothrombin Time 11.7 sec (9.0-12.0); Total Bilirubin 0.5 mg/dL (0.2-1.3); Total Protein 5.7 g/dL (6.3-8.2)
[2021-01-11 01:00] VITALS: TEMP 98.4
--- NOTE | 2021-01-11 01:06 | XR ---
EXAM: XR Chest, 2 Views CLINICAL HISTORY: Weakness TECHNIQUE: Frontal and lateral views of the chest. COMPARISON: No relevant prior studies available. FINDINGS: Lungs: Mild streaky areas of subsegmental atelectasis. No acute infiltration. Pleural space: Unremarkable. No pneumothorax. No pleural fluid. Heart: The heart is enlarged. Mediastinum: Unremarkable. Bones/joints: Unremarkable. No acute abnormalities. IMPRESSION: Mild streaky areas of subsegmental atelectasis. Cardiomegaly.
[2021-01-11 02:35] VITALS: BP 110/71; PULSE 87
== END 2021-01-11 02:15 | disposition home or self-care (01) ==
LOC: EC 23:01
DX: N39.0 Urinary tract infection, site not specified (principal); E83.42 Hypomagnesemia; D64.9 Anemia, unspecified; J44.9 Chronic obstructive pulmonary disease, unspecified; E11.9 Type 2 diabetes mellitus without complications; E78.5 Hyperlipidemia, unspecified; I10 Essential (primary) hypertension; F32.9 Major depressive disorder, single episode, unspecified; M19.90 Unspecified osteoarthritis, unspecified site; E66.9 Obesity, unspecified; Z68.35 Body mass index [BMI] 35.0-35.9, adult; Z87.891 Personal history of nicotine dependence; Z79.899 Other long term (current) drug therapy
CPT/HCPCS: 99285; 96365; 36415; 93005; 80053; 83605; 83735; 84443; 84484; 85025; 85610; 85730; 81001; 71046; J0696

== ENCOUNTER 2021-01-21 21:03 | Inpatient (IN) | payer MEDICARE, OTHER ==
[2021-01-21] MEDS ORDERED: SODIUM CHLORIDE 0.9% 1,000 ML IV ONE (22:02)
--- NOTE | 2021-01-21 22:09 | ED ---
General Adult HPI - General Chief complaint: Urogenital Stated complaint: UTI, cellulitis in leg Time Seen by Provider: 01/21/21 21:34 Source: patient Mode of arrival: wheelchair Limitations: physical limitation - History of Present Illness Initial comments: 70 year-old female patient with history significant for recurrent UTI, chronic GI bleed with anemia, CHF, and multiple other medical problems presents to the emergency department for evaluation of painful urination, urinary urgency, and frequency. Also reports low back pain. States symptoms have been going on for "a long time". Did recently complete a course of keflex. States it did not seem to work. States that she also has redness to the left lower leg that has been going on for quite some time as well. States she has had cellulitis in the past and this seems similar. She states she feels generally ill and nauseated. Denies any vomiting. Reports chills but no documented fevers. States she does have an appointment with Dr. Bonner urology on 02/02 to determine cause for frequent UTIs. Patient denies any recent rash, cough, shortness of breath, chest pain, diarrhea, constipation, numbness, tingling, dizziness, weakness, headache, visual changes, or any other complaints. - Related Data Home Medications Medication Instructions Recorded Confirmed Zafirlukast [Accolate] 20 mg PO BID 02/06/14 01/21/21 ARIPiprazole [Abilify] 5 mg PO HS 02/07/18 01/21/21 metFORMIN HCL [Glucophage] 1,000 mg PO BID-W/MEALS 02/07/18 01/21/21 Cholecalciferol [Vitamin D3 (25 1,000 unit PO DAILY 09/03/19 01/21/21 Mcg = 1000 Iu)] Levothyroxine Sodium [Synthroid] 200 mcg PO DAILY 09/03/19 01/21/21 Albuterol Sulfate [Ventolin HFA] 1 - 2 puff INHALATION RT-Q6H PRN 03/11/20 01/21/21 Escitalopram [Lexapro] 20 mg PO DAILY 03/11/20 01/21/21 Furosemide [Lasix] 40 mg PO DAILY 04/27/20 01/21/21 traZODone HCL 100 mg PO HS PRN 05/15/20 01/21/21 Lisinopril [Zestril] 10 mg PO DAILY 10/09/20 06/04/21 Magnesium Oxide [Mag-Ox] 400 mg PO DAILY 01/21/21 01/21/21 Metoprolol Succinate (ER) [Toprol 25 mg PO DAILY 01/21/21 01/21/21 Xl] Previous Rx's Medication Instructions Recorded Atorvastatin [Lipitor] 40 mg PO DAILY #30 tab 09/10/18 Budesonide [Pulmicort] 1 mg INHALATION RT-BID ml 03/27/20 Formoterol Fumarate [Perforomist] 20 mcg INHALATION RT-BID nebu 03/27/20 HYDROcodone/APAP 7.5-325MG [[place] 1 tab PO Q6H PRN #12 tab 03/27/20 7.5-325] Ipratropium-Albuterol Nebulize 3 ml INHALATION RT-Q2H PRN ml 03/27/20 [Duoneb 0.5 mg-3 mg/3 ml Soln] Pantoprazole Sodium [Protonix] 40 mg PO BID #60 tablet. 03/27/20 Spironolactone [Aldactone] 12.5 mg PO DAILY #30 tab 12/27/20 Allergies Allergy/AdvReac Type Severity Reaction Status Date / Time adhesive Allergy Rash/Hives Verified 01/21/21 22:45 ciprofloxacin [From Cipro] Allergy Rash/Hives Verified 01/21/21 22:45 ciprofloxacin HCl Allergy Rash/Hives Verified 01/21/21 22:45 [From Cipro] latex Allergy Rash/Hives Verified 01/21/21 22:45 levofloxacin [From Levaquin] Allergy Rash/Hives Verified 01/21/21 22:45 nitrofurantoin Allergy Rash/Hives Verified 01/21/21 22:45 [From Macrobid] nitrofurantoin Allergy Rash/Hives Verified 01/21/21 22:45 macrocrystalline [From Macrobid] Penicillins Allergy Rash/Hives Verified 01/21/21 22:45 propoxyphene HCl Allergy Rash/Hives Verified 01/21/21 22:45 [From Darvon] propoxyphene napsylate Allergy Unknown Verified 01/21/21 22:45 [From Darvocet-N] Review of Systems ROS Statement: Those systems with pertinent positive or pertinent negative responses have been documented in the HPI. ROS Other: All systems not noted in ROS Statement are negative. Past Medical History Past Medical History: Asthma, Chest Pain / Angina, COPD, Diabetes Mellitus, Hyperlipidemia, Hypertension, Osteoarthritis (OA), Respiratory Disorder, Skin Disorder, Thyroid Disorder Additional Past Medical History / Comment(s): Obesity (BMI 35) COPD, asthma, diabetes , depression, 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 The patient is also a recently quit smoker. The patient has chronic back pain. History of Any Multi-Drug Resistant Organisms: None Reported Past Surgical History: Appendectomy, Section, Cholecystectomy, Orthopedic Surgery, Tubal Ligation Additional Past Surgical History / Comment(s): LASER SX JETHRO EYES FOR GLAUCOMA. RT KNEE ARTHROSCOPY. UNDERWENT PERCUTANEOUS NEPHROSTOLITHOTOMY Past Anesthesia/Blood Transfusion Reactions: No Reported Reaction Past Psychological History: Anxiety, Depression Smoking Status: Former smoker Past Alcohol Use History: None Reported Past Drug Use History: None Reported - Past Family History Mother Additional Family Medical History / Comment(s): emphysema, heart valve problems, in her slepp. Brother(s) Family Medical History: Cancer Additional Family Medical History / Comment(s): from oral cancer Father Brother(s) Family Medical History: Cancer Additional Family Medical History / Comment(s): heart disease General Exam Limitations: physical limitation General appearance: alert, in no apparent distress, other (Physical well- developed, well-nourished adult female patient in no acute distress. Vital signs upon presentation are temperature 98.3F, pulse 83, respirations 20, blood pressure 141/57, pulse ox 94% on room air.) Eye exam: Present: normal appearance, PERRL, EOMI. Absent: scleral icterus, conjunctival injection, periorbital swelling ENT exam: Present: normal exam, normal oropharynx, mucous membranes moist Respiratory exam: Present: normal lung sounds bilaterally. Absent: respiratory distress, wheezes, rales, rhonchi, stridor Cardiovascular Exam: Present: regular rate, normal rhythm, normal heart sounds. Absent: systolic murmur, diastolic murmur, rubs, gallop, clicks GI/Abdominal exam: Present: soft, normal bowel sounds. Absent: distended, tenderness, guarding, rebound, rigid Back exam: Present: CVA tenderness (R), CVA tenderness (L) Neurological exam: Present: alert, oriented X3, CN II-XII intact Psychiatric exam: Present: normal affect, normal mood Skin exam: Present: warm, dry, intact, normal color. Absent: rash Course Vital Signs 01/21/21 21:32 Temperature 98.3 F Pulse Rate 83 Respiratory 20 Rate Blood Pressure 141/57 O2 Sat by Pulse 94 L Oximetry Medical Decision Making - Medical Decision Making 70-year-old female patient presents to the emergency department today for evaluation of painful urination, urinary frequency and urgency. Also reports just general malaise and not feeling well. Report some shortness of breath. She is also concerned for left lower extremity redness and swelling. Labs re viewed and did reveal elevated white blood cell count is 17.1, hemoglobin 6.3, BUN 26. Urinalysis showed a dark brown, turbid appearance with 2+ protein, large amount of blood, positive nitrite, large leukocyte esterase, greater than 182 red blood cells, greater than 182 white blood cells, many white blood cell clumps, 7 squamous epithelial cells, many bacteria, rare mucous. I did discuss findings with the patient. We will give one unit of packed red blood cells. I did review previous microbiology from previous urine cultures, we will start Rocephin. Consult to infectious disease for recurrent urinary tract infection. She will be admitted to Dr. [place]. My attending is Dr. Barragan. - Lab Data Result diagrams: 01/21/21 22:11 01/21/21 22:11 Lab Results 01/21/21 01/21/21 01/21/21 Range/Units 22:11 22:11 22:11 WBC 17.1 H (3.8-10.6) k/uL RBC 2.05 L (3.80-5.40) m/uL Hgb 6.3 L* D (11.4-16.0) gm/dL Hct 19.8 L* (34.0-46.0) % MCV 96.6 (80.0-100.0) fL MCH 30.7 (25.0-35.0) pg MCHC 31.7 (31.0-37.0) g/dL RDW 15.4 (11.5-15.5) % Plt Count 491 H (150-450) k/uL MPV 6.6 Neutrophils % 86 % Lymphocytes % 6 % Monocytes % 5 % Eosinophils % 1 % Basophils % 0 % Neutrophils # 14.6 H (1.3-7.7) k/uL Lymphocytes # 1.1 (1.0-4.8) k/uL Monocytes # 0.8 (0-1.0) k/uL Eosinophils # 0.3 (0-0.7) k/uL Basophils # 0.0 (0-0.2) k/uL Hypochromasia Slight Sodium 135 L (137-145) mmol/L Potassium 3.8 (3.5-5.1) mmol/L Chloride 101 (98-107) mmol/L Carbon Dioxide 28 (22-30) mmol/L Anion Gap 6 mmol/L BUN 26 H (7-17) mg/dL Creatinine 0.94 (0.52-1.04) mg/dL Est GFR (CKD-EPI)AfAm 71 (>60 ml/min/1.73 sqM) Est GFR (CKD-EPI)NonAf 61 (>60 ml/min/1.73 sqM) Glucose 156 H (74-99) mg/dL Plasma Lactic Acid Ravi (0.7-2.0) mmol/L Calcium 8.4 (8.4-10.2) mg/dL Total Bilirubin 0.2 (0.2-1.3) mg/dL AST 19 (14-36) U/L ALT 19 (4-34) U/L Alkaline Phosphatase 118 (38-126) U/L Total Protein 5.6 L (6.3-8.2) g/dL Albumin 2.6 L (3.5-5.0) g/dL Urine Color Dark Brown Urine Appearance Turbid H (Clear) Urine pH 6.0 (5.0-8.0) Ur Specific [place] 1.019 (1.001-1.035) Urine Protein 2+ H (Negative) Urine Glucose (UA) Negative (Negative) Urine Ketones Negative (Negative) Urine Blood Large H (Negative) Urine Nitrite Positive H (Negative) Urine Bilirubin 1+ H (Negative) Urine Urobilinogen 2.0 (<2.0) mg/dL Ur Leukocyte Esterase Large H (Negative) Urine RBC >182 H (0-5) /hpf Urine WBC >182 H (0-5) /hpf Urine WBC Clumps Many H (None) /hpf Ur Squamous Epith Cells 7 H (0-4) /hpf Urine Bacteria Many H (None) /hpf Urine Mucus Rare H (None) /hpf Coronavirus (PCR) (Not Detectd) 01/21/21 01/21/21 Range/Units 22:11 22:11 WBC (3.8-10.6) k/uL RBC (3.80-5.40) m/uL Hgb (11.4-16.0) gm/dL Hct (34.0-46.0) % MCV (80.0-100.0) fL MCH (25.0-35.0) pg MCHC (31.0-37.0) g/dL RDW (11.5-15.5) % Plt Count (150-450) k/uL MPV Neutrophils % % Lymphocytes % % Monocytes % % Eosinophils % % Basophils % % Neutrophils # (1.3-7.7) k/uL Lymphocytes # (1.0-4.8) k/uL Monocytes # (0-1.0) k/uL Eosinophils # (0-0.7) k/uL Basophils # (0-0.2) k/uL Hypochromasia Sodium (137-145) mmol/L Potassium (3.5-5.1) mmol/L Chloride (98-107) mmol/L Carbon Dioxide (22-30) mmol/L Anion Gap mmol/L BUN (7-17) mg/dL Creatinine (0.52-1.04) mg/dL Est GFR (CKD-EPI)AfAm (>60 ml/min/1.73 sqM) Est GFR (CKD-EPI)NonAf (>60 ml/min/1.73 sqM) Glucose (74-99) mg/dL Plasma Lactic Acid Ravi 1.9 (0.7-2.0) mmol/L Calcium (8.4-10.2) mg/dL Total Bilirubin (0.2-1.3) mg/dL AST (14-36) U/L ALT (4-34) U/L Alkaline Phosphatase (38-126) U/L Total Protein (6.3-8.2) g/dL Albumin (3.5-5.0) g/dL Urine Color Urine Appearance (Clear) Urine pH (5.0-8.0) Ur Specific [place] (1.001-1.035) Urine Protein (Negative) Urine Glucose (UA) (Negative) Urine Ketones (Negative) Urine Blood (Negative) Urine Nitrite (Negative) Urine Bilirubin (Negative) Urine Urobilinogen (<2.0) mg/dL Ur Leukocyte Esterase (Negative) Urine RBC (0-5) /hpf Urine WBC (0-5) /hpf Urine WBC Clumps (None) /hpf Ur Squamous Epith Cells (0-4) /hpf Urine Bacteria (None) /hpf Urine Mucus (None) /hpf Coronavirus (PCR) Not Detected (Not Detectd) Disposition Clinical Impression: Symptomatic anemia, UTI (urinary tract infection), Left leg cellulitis Disposition: ADMITTED IP TO THIS [facility] Condition: Serious Referrals: Connor Carreon [Primary Care Provider] - 1-2 days Decision to Admit Reason: Admit from EC Decision Date: 01/21/21 Decision Time: 23:48
[2021-01-21 22:32] LABS: Basophils % (A) 0 %; Eosinophils # (A) 0.3 k/uL (0-0.7); Eosinophils % (A) 1 %; Hypochromasia Slight; Lymphocytes # (A) 1.1 k/uL (1.0-4.8); Lymphocytes % (A) 6 %; MCH 30.7 pg (25.0-35.0); MCHC 31.7 g/dL (31.0-37.0); MCV 96.6 fL (80.0-100.0); Mean Platelet Volume 6.6; Monocytes # (A) 0.8 k/uL (0-1.0); Monocytes % (A) 5 %; Neutrophils # (A) 14.6 k/uL (1.3-7.7); Neutrophils % (A) 86 %; Platelet Count 491 k/uL (150-450); RBC 2.05 m/uL (3.80-5.40); RDW 15.4 % (11.5-15.5); WBC 17.1 k/uL (3.8-10.6)
[2021-01-21 22:53] LABS: Albumin 2.6 g/dL (3.5-5.0); Calcium 8.4 mg/dL (8.4-10.2); Potassium 3.8 mmol/L (3.5-5.1); Total Bilirubin 0.2 mg/dL (0.2-1.3); Total Protein 5.6 g/dL (6.3-8.2)
[2021-01-21 22:56] LABS: HCT 19.8 % (34.0-46.0); HGB 6.3 gm/dL (11.4-16.0)
[2021-01-21 23:01] LABS: Appearance,Urine Turbid (Clear); Bacteria,Urine Many /hpf; Bilirubin,Urine 1+ (Negative); Blood,Urine Large (Negative); Color,Urine Dark Brown; Glucose,Urine (UA) Negative (Negative); Ketones,Urine Negative (Negative); Leukocyte Esterase,Urine Large (Negative); Mucus,Urine Rare /hpf; Nitrite,Urine Positive (Negative); Protein,Urine 2+ (Negative); RBC,Urine >182 /hpf (0-5); Specific Gravity,Urine 1.019 (1.001-1.035); Squamous Epithelial Cell,Urine 7 /hpf (0-4); WBC,Urine >182 /hpf (0-5)
[2021-01-22] MEDS ORDERED: NALOXONE 0.4 MG/ML 1 ML VIAL IV PRN (00:02)
[2021-01-22 01:05] LABS: RBC 2.08 m/uL (3.80-5.40); WBC 15.1 k/uL (3.8-10.6)
[2021-01-22 01:06] LABS: HCT 20.5 % (34.0-46.0); Hypochromasia Marked; MCH 29.2 pg (25.0-35.0); MCHC 29.7 g/dL (31.0-37.0); MCV 98.4 fL (80.0-100.0); Macrocytosis Slight; Mean Platelet Volume 6.9; Platelet Count 492 k/uL (150-450); RDW 15.5 % (11.5-15.5)
[2021-01-22] MEDS ORDERED: ONDANSETRON 4 MG/2 ML VIAL IVP STA (01:17)
[2021-01-22] MEDS ORDERED: MORPHINE SULFATE 2 MG/ML SYRINGE IVP STA ×2 (01:20→11:44)
[2021-01-22 01:24] LABS: HGB 6.1 gm/dL (11.4-16.0)
[2021-01-22] MEDS ORDERED: VANCOMYCIN IV PER PHARMACY 1 EACH MISC MISCELLANE PRN (02:06)
--- NOTE | 2021-01-22 02:14 | P.HPIM ---
History of Present Illness H&P Date: 01/22/21 Patient is 70-year-old female with an extensive damage including type II DM, history of GI bleeds and recurrent anemia, hypertension, hyperlipidemia, COPD, chronic hypoxic respiratory failure on 2 L nasal cannula oxygen continuously at home, presented to the emergency room with urinary complaints along with left leg pain and swelling. The patient reports that she had seen her primary care physician for urinary urgency and increased frequency along with dysuria and was prescribed a course of antibiotics which she had completed a few weeks ago. The patient notes that her symptoms however returned a few days ago and that she has now developed suprapubic discomfort with radiation of the lower back. She also reports left lower extremity redness and swelling ongoing for the past 2 days. She denied additional complaints. He reports chronic unchanged dyspnea on exertion with poor exercise tolerance. Of note, the patient follows with urology as an outpatient due to her frequent UTIs. Denied blood in stools, black tarry stools, chest discomfort, nausea, vomiting, abdominal pain, diarrhe a. Also denied fever, chills, cough. She underwent an extensive evaluation in the emergency room with laboratory evaluation remarkable for WC count of 17.1, hemoglobin 6.3, platelets 491, sodium 135, BUN 26, creatinine 0.95, glucose 156, and UA consistent with UTI. Patient's last urine culture from 10/27/20 showed pansensitive E. coli. Review of systems: Pertinent positives and negatives as discussed in HPI, a complete review of systems was performed and all other systems are negative. Physical examination: General: Somewhat chronically ill-appearing female, no distress, appears older than stated age, obese Derm: Left mid calf circumferential area of erythema, warmth, and tenderness, marked to monitor progress, warm, dry Head: atraumatic, normocephalic, symmetric Eyes: EOMI, no lid lag, anicteric sclera, pupils equal round reactive to light ENT: Nose and ears atraumatic, no thrush, no pharyngeal erythema Neck: No thyromegaly, no cervical lymphadenopathy, trachea midline, supple Mouth: no lip lesion, mucus membranes moist Cardiovascular: S1S2 reg, no murmur, positive posterior tibial pulse bilateral, 1+ left lower extremity edema, capillary refill less than 2 seconds Lungs: CTA bilateral, no rhonchi, no rales , no accessory muscle use Abdominal: soft, suprapubic tenderness to palpation, no CVA tenderness, no guarding, no appreciable organomegaly, normal bowel sounds Ext: no gross muscle atrophy, muscle strength 4 out of 5 in all 4 extremities grossly, no contractures, Neuro: CN II-XI grossly intact, light touch intact all 4 extremities, finger to nose within normal limits, Psych: Alert, oriented, appropriate affect Assessment/plan: Urinary tract infection -Continue with ceftriaxone -Follow up urine culture -Pain control Left lower extremity cellulitis -Continue with ceftriaxone and start vancomycin -Infectious disease consulted due to history of recurrence Normocytic anemia, with history of GI bleeding -EGD performed on 10/27/20 revealed duodenal bulb ulcer along with gastric angiectasias -Current hemoglobin 6.3 down from baseline of 8 -1 unit of PRBCs ordered -Patient denying abdominal complaints -Will keep NPO for now -GI consult -Continue to monitor CBC Chronic conditions: Type II DM, hypertension, hyperlipidemia, COPD -Lispro insulin sliding scale with blood glucose monitoring -Check A1c -Continue the remaining home medications DVT prophylaxis -IPCDs The patient is admitted with an anticipated [] than 2 midnight stay for evaluation of []. CODE STATUS:[] Discussed with: [] Anticipated discharge date: [] Anticipated discharge place: [] A total of [] minutes was spent on the care of this complex patient more than 50% of the time was spent in counseling and care coordination. Past Medical History Past Medical History: Asthma, Chest Pain / Angina, COPD, Diabetes Mellitus, Hyperlipidemia, Hypertension, Osteoarthritis (OA), Respiratory Disorder, Skin Disorder, Thyroid Disorder Additional Past Medical History / Comment(s): Obesity (BMI 35) COPD, asthma, diabetes , depression, 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 The patient is also a recently quit smoker. The kiran ent has chronic back pain. History of Any Multi-Drug Resistant Organisms: None Reported Past Surgical History: Appendectomy, Section, Cholecystectomy, Orthopedic Surgery, Tubal Ligation Additional Past Surgical History / Comment(s): LASER SX JETHRO EYES FOR GLAUCOMA. RT KNEE ARTHROSCOPY. UNDERWENT PERCUTANEOUS NEPHROSTOLITHOTOMY Past Anesthesia/Blood Transfusion Reactions: No Reported Reaction Past Psychological History: Anxiety, Depression Smoking Status: Former smoker Past Alcohol Use History: None Reported Past Drug Use History: None Reported - Past Family History Mother Additional Family Medical History / Comment(s): emphysema, heart valve problems, in her slepp. Brother(s) Family Medical History: Cancer Additional Family Medical History / Comment(s): from oral cancer Father Brother(s) Family Medical History: Cancer Additional Family Medical History / Comment(s): heart disease Medications and Allergies Home Medications Medication Instructions Recorded Confirmed Type Zafirlukast [Accolate] 20 mg PO BID 02/06/14 01/21/21 History ARIPiprazole [Abilify] 5 mg PO HS 02/07/18 01/21/21 History metFORMIN HCL [Glucophage] 1,000 mg PO BID-W/MEALS 02/07/18 01/21/21 History Atorvastatin [Lipitor] 40 mg PO DAILY #30 tab 09/10/18 01/21/21 Rx Cholecalciferol [Vitamin D3 (25 1,000 unit PO DAILY 09/03/19 01/21/21 History Mcg = 1000 Iu)] Levothyroxine Sodium [Synthroid] 200 mcg PO DAILY 09/03/19 01/21/21 History Albuterol Sulfate [Ventolin HFA] 1 - 2 puff INHALATION RT-Q6H PRN 03/11/20 01/21/21 History Escitalopram [Lexapro] 20 mg PO DAILY 03/11/20 01/21/21 History Budesonide [Pulmicort] 1 mg INHALATION RT-BID ml 03/27/20 01/21/21 Rx Formoterol Fumarate [Perforomist] 20 mcg INHALATION RT-BID nebu 03/27/20 01/21/21 Rx HYDROcodone/APAP 7.5-325MG [[place] 1 tab PO Q6H PRN #12 tab 03/27/20 01/21/21 Rx 7.5-325] Ipratropium-Albuterol Nebulize 3 ml INHALATION RT-Q2H PRN ml 03/27/20 01/21/21 Rx [Duoneb 0.5 mg-3 mg/3 ml Soln] Pantoprazole Sodium [Protonix] 40 mg PO BID #60 tablet.dr 03/27/20 01/21/21 Rx Furosemide [Lasix] 40 mg PO DAILY 04/27/20 01/21/21 History traZODone HCL 100 mg PO HS PRN 05/15/20 01/21/21 History Lisinopril [Zestril] 10 mg PO DAILY 05/28/20 01/21/21 History Spironolactone [Aldactone] 12.5 mg PO DAILY #30 tab 12/27/20 01/21/21 Rx Magnesium Oxide [Mag-Ox] 400 mg PO DAILY 01/21/21 01/21/21 History Metoprolol Succinate (ER) [Toprol 25 mg PO DAILY 01/21/21 01/21/21 History Xl] Allergies Allergy/AdvReac Type Severity Reaction Status Date / Time adhesive Allergy Rash/Hives Verified 01/21/21 22:45 ciprofloxacin [From Cipro] Allergy Rash/Hives Verified 01/21/21 22:45 ciprofloxacin HCl Allergy Rash/Hives Verified 01/21/21 22:45 [From Cipro] latex Allergy Rash/Hives Verified 01/21/21 22:45 levofloxacin [From Levaquin] Allergy Rash/Hives Verified 01/21/21 22:45 nitrofurantoin Allergy Rash/Hives Verified 01/21/21 22:45 [From Macrobid] nitrofurantoin Allergy Rash/Hives Verified 01/21/21 22:45 macrocrystalline [From Macrobid] Penicillins Allergy Rash/Hives Verified 01/21/21 22:45 propoxyphene HCl Allergy Rash/Hives Verified 01/21/21 22:45 [From Darvon] propoxyphene napsylate Allergy Unknown Verified 01/21/21 22:45 [From Darvocet-N] Physical Exam Vitals: Vital Signs Temp Pulse Resp BP Pulse Ox 01/22/21 01:15 97.3 F L 84 20 130/52 93 L 01/21/21 21:32 98.3 F 83 20 141/57 94 L Intake and Output 01/21/21 01/21/21 01/22/21 14:59 22:59 06:59 Other: Voiding Method Toilet Weight 68.039 kg Results CBC & Chem 7: 01/22/21 00:42 01/21/21 22:11 Labs: Abnormal Lab Results - Last 24 Hours (Table) 01/21/21 01/21/21 01/21/21 Range/Units 22:11 22:11 22:11 WBC 17.1 H (3.8-10.6) k/uL RBC 2.05 L (3.80-5.40) m/uL Hgb 6.3 L* D (11.4-16.0) gm/dL Hct 19.8 L* (34.0-46.0) % MCHC (31.0-37.0) g/dL Plt Count 491 H (150-450) k/uL Neutrophils # 14.6 H (1.3-7.7) k/uL Sodium 135 L (137-145) mmol/L BUN 26 H (7-17) mg/dL Glucose 156 H (74-99) mg/dL Total Protein 5.6 L (6.3-8.2) g/dL Albumin 2.6 L (3.5-5.0) g/dL Urine Appearance Turbid H (Clear) Urine Protein 2+ H (Negative) Urine Blood Large H (Negative) Urine Nitrite Positive H (Negative) Urine Bilirubin 1+ H (Negative) Ur Leukocyte Esterase Large H (Negative) Urine RBC >182 H (0-5) /hpf Urine WBC >182 H (0-5) /hpf Urine WBC Clumps Many H (None) /hpf Ur Squamous Epith Cells 7 H (0-4) /hpf Urine Bacteria Many H (None) /hpf Urine Mucus Rare H (None) /hpf 01/22/21 Range/Units 00:42 WBC 15.1 H (3.8-10.6) k/uL RBC 2.08 L (3.80-5.40) m/uL Hgb 6.1 L* (11.4-16.0) gm/dL Hct 20.5 L (34.0-46.0) % MCHC 29.7 L (31.0-37.0) g/dL Plt Count 492 H (150-450) k/uL Neutrophils # (1.3-7.7) k/uL Sodium (137-145) mmol/L BUN (7-17) mg/dL Glucose (74-99) mg/dL Total Protein (6.3-8.2) g/dL Albumin (3.5-5.0) g/dL Urine Appearance (Clear) Urine Protein (Negative) Urine Blood (Negative) Urine Nitrite (Negative) Urine Bilirubin (Negative) Ur Leukocyte Esterase (Negative) Urine RBC (0-5) /hpf Urine WBC (0-5) /hpf Urine WBC Clumps (None) /hpf Ur Squamous Epith Cells (0-4) /hpf Urine Bacteria (None) /hpf Urine Mucus (None) /hpf
[2021-01-22] MEDS ORDERED: VANCOMYCIN 1,250 MG in SODIUM CHLORIDE 0.9% 250 ML IVPB ONE (02:30)
[2021-01-22] MEDS: LEVOTHYROXINE 100 MCG TAB PO SCH (05:41)
[2021-01-22] MEDS: traZODone HCL 100 MG TAB PO PRN ×2 (05:42→22:04)
[2021-01-22 06:48] LABS: Anisocytosis Slight; HCT 25.1 % (34.0-46.0); Hypochromasia Marked; MCH 29.8 pg (25.0-35.0); MCHC 30.5 g/dL (31.0-37.0); MCV 97.7 fL (80.0-100.0); Macrocytosis Slight; Mean Platelet Volume 6.5; Platelet Count 455 k/uL (150-450); Poikilocytosis Slight; RBC 2.57 m/uL (3.80-5.40); RDW 16.7 % (11.5-15.5); WBC 16.6 k/uL (3.8-10.6)
[2021-01-22] MEDS: HYDROcodone/APAP 7.5-325MG 1 EACH TAB PO PRN ×3 (06:56→22:03)
[2021-01-22 07:07] LABS: HGB 7.7 gm/dL (11.4-16.0)
[2021-01-22 07:52] LABS: Glucose,Whole Blood 156 mg/dL (75-99)
[2021-01-22] MEDS: BUDESONIDE 1 MG/2 ML NEBU INHALATION SCH ×2 (08:15→17:51)
[2021-01-22] MEDS: FORMOTEROL FUMARATE 20 MCG/2 ML NEBU INHALATION SCH ×2 (08:15→17:52)
[2021-01-22] MEDS: IPRATROPIUM-ALBUTEROL 3 ML NEB INHALATION PRN ×3 (08:15→20:46)
[2021-01-22] MEDS: PANTOPRAZOLE 40 MG TABLET PO SCH ×2 (09:31→18:11)
[2021-01-22] MEDS: ATORVASTATIN 40 MG TAB PO SCH (09:31)
[2021-01-22] MEDS: lisinopriL 10 MG TAB PO SCH (09:32)
[2021-01-22] MEDS: METOPROLOL SUCCINATE (ER) 25 MG TAB.ER.24H PO SCH (09:32)
[2021-01-22] MEDS: SPIRONOLACTONE 25 MG TAB PO SCH (09:32)
[2021-01-22] MEDS: FUROSEMIDE 40 MG TAB PO SCH (09:32)
[2021-01-22] MEDS: ESCITALOPRAM 20 MG TAB PO SCH (09:32)
[2021-01-22] MEDS: MAGNESIUM OXIDE 400 MG TAB PO SCH (09:32)
[2021-01-22] MEDS: INSULIN ASPART (NovoLOG) 100 UNIT/ML VIAL SQ SCH ×4 (09:36→21:46)
[2021-01-22] MEDS: CHOLECALCIFEROL 25 MCG (1000 IU) TABLET PO SCH (11:57)
[2021-01-22 12:05] LABS: Glucose,Whole Blood 216 mg/dL (75-99)
--- NOTE | 2021-01-22 12:54 | P.PN ---
<Vincent Dyson - Last Filed: 01/22/21 12:58> Subjective Progress Note Date: 01/22/21 Hospital course: Patient is a 70-year-old female with a past medical history including hyperten alvarado, hyperlipidemia, diabetes mellitus, COPD, hypothyroidism, previous episodes of GI bleeding with recurrent anemia, and chronic back pain. She presented to the hospital on 01/21/21 with a chief complaint of urinary frequency, urgency, and dysuria along with left lower extremity pain and swelling. Patient was seen and fully evaluated in the emergency department and was found to have a UTI, cellu litis of left lower extremity with leukocytosis of 17.1, and acute on chronic anemia with hemoglobin of 6.3 with repeat of 6.1 requiring transfusion of 1 unit PRBCs with posttransfusion hemoglobin of 7.7. Patient currently admitted under our services for continued close medical management with consults to infectious disease for cellulitis and recurrent UTIs along with consult to gastroenterology for GI bleed. Physical exam: Pt seen and fully evaluated at the bedside this morning. States that she continues to have persistent urinary frequency, urgency, and dysuria along with suprapubic discomfort. She continues to deny any abdominal pain/cramping/t enderness, chest pain, palpitations, SOB, or having any noted bleeding or bruising. General: non toxic, no distress, appears at stated age Derm: warm and dry with Left lower extremity circumferential edema, erythema and increased warmth with pain upon palpation. Area outlined with surgical skin marker and erythema remains within outlined area. Head: Atraumatic, normocephalic, symmetric Eyes: EOMI, No lid lag, anicteric sclera Mouth: no lip lesion, mucus membranes moist Cardiovascular: [id number] with regular rate and rhythm. No murmur, gallop, or rub. Positive posterior tibial pulses palpated bilaterally. Lungs: CTA bilateral, no rhonchi, no rales , no accessory muscle use Abdominal: Obese abdomen soft, suprapubic tenderness to palpation, no guarding, no appreciable organomegaly. No CVA tenderness. Ext: No gross muscle atrophy, no contractures Neuro: CN II-XI grossly intact, no focal neuro deficits Psych: Alert, oriented, appropriate affect Plan of care: Acute blood loss anemia with history of GI bleed -Hemoglobin 6.1 resulting in transfusion 1 unit PRBCs with posttransfusion hemoglobin of 7.7, baseline hemoglobin 8 -Continue Protonix twice a day. -NPO until cleared by GI -Trend CBCs every 6 -GI consult UTI -Urinalysis turbid appearance positive for protein, blood, nitrites, bilirubin, leukocytes, > 182 RBCs, and > 182 WBCs. -Continue IV antibiotic with Rocephin pending urine culture and sensitivity results. -Monitor I's and O's -Bladder management to check for postvoid residuals Left lower extremity cellulitis -Consult infectious disease, appreciate further recommendations -Continue IV antibiotics: Vancomycin and Rocephin Hypertension -Monitor vital signs and continue daily medication management with metoprolol. Hyperlipidemia -Continue daily medication regimen with atorvastatin 40 mg daily. Diabetes mellitus -Hold Glucophage in place patient on glycemic protocol with NovoLog sliding scale. Hypothyroidism -Continue daily medication management with level thyroxine 200 g daily. COPD -Provide oxygenation supplementation as needed to maintain SpO2 equal to or greater than 92% at all times. -Encourage incentive spirometry use 10-15 times hourly while awake. CODE STATUS: Full code DVT prophylaxis: SCDs Discussed with: Patient and RN Anticipated discharge date: Clinical course to determine Anticipated discharge place: Home A total of 45 minutes was spent on the care of this complex patient more than 50% of the time was spent in counseling and care coordination. Objective - Vital Signs Vital signs: Vital Signs Temp 97.5 F L 01/22/21 05:25 Pulse 86 01/22/21 08:30 Resp 18 01/22/21 08:00 BP 126/66 01/22/21 08:00 Pulse Ox 94 L 01/22/21 08:00 Intake & Output 01/21/21 01/22/21 01/22/21 18:59 06:59 18:59 Intake Total 310 Balance 310 Weight 68.039 kg Intake: Blood Product 310 Rc As-1 Unit 310 [id number] Other: Voiding Method Toilet - Labs CBC & Chem 7: 01/22/21 06:25 01/21/21 22:11 Labs: Abnormal Lab Results - Last 24 Hours (Table) 01/21/21 01/21/21 01/21/21 Range/Units 22:11 22:11 22:11 WBC 17.1 H (3.8-10.6) k/uL RBC 2.05 L (3.80-5.40) m/uL Hgb 6.3 L* D (11.4-16.0) gm/dL Hct 19.8 L* (34.0-46.0) % MCHC (31.0-37.0) g/dL RDW (11.5-15.5) % Plt Count 491 H (150-450) k/uL Neutrophils # 14.6 H (1.3-7.7) k/uL Sodium 135 L (137-145) mmol/L BUN 26 H (7-17) mg/dL Glucose 156 H (74-99) mg/dL POC Glucose (mg/dL) (75-99) mg/dL Total Protein 5.6 L (6.3-8.2) g/dL Albumin 2.6 L (3.5-5.0) g/dL Urine Appearance Turbid H (Clear) Urine Protein 2+ H (Negative) Urine Blood Large H (Negative) Urine Nitrite Positive H (Negative) Urine Bilirubin 1+ H (Negative) Ur Leukocyte Esterase Large H (Negative) Urine RBC >182 H (0-5) /hpf Urine WBC >182 H (0-5) /hpf Urine WBC Clumps Many H (None) /hpf Ur Squamous Epith Cells 7 H (0-4) /hpf Urine Bacteria Many H (None) /hpf Urine Mucus Rare H (None) /hpf Crossmatch 01/22/21 01/22/21 01/22/21 Range/Units 00:42 00:42 06:25 WBC 15.1 H 16.6 H (3.8-10.6) k/uL RBC 2.08 L 2.57 L (3.80-5.40) m/uL Hgb 6.1 L* 7.7 L D (11.4-16.0) gm/dL Hct 20.5 L 25.1 L (34.0-46.0) % MCHC 29.7 L 30.5 L (31.0-37.0) g/dL RDW 16.7 H (11.5-15.5) % Plt Count 492 H 455 H (150-450) k/uL Neutrophils # (1.3-7.7) k/uL Sodium (137-145) mmol/L BUN (7-17) mg/dL Glucose (74-99) mg/dL POC Glucose (mg/dL) (75-99) mg/dL Total Protein (6.3-8.2) g/dL Albumin (3.5-5.0) g/dL Urine Appearance (Clear) Urine Protein (Negative) Urine Blood (Negative) Urine Nitrite (Negative) Urine Bilirubin (Negative) Ur Leukocyte Esterase (Negative) Urine RBC (0-5) /hpf Urine WBC (0-5) /hpf Urine WBC Clumps (None) /hpf Ur Squamous Epith Cells (0-4) /hpf Urine Bacteria (None) /hpf Urine Mucus (None) /hpf Crossmatch See Detail 01/22/21 Range/Units 07:50 WBC (3.8-10.6) k/uL RBC (3.80-5.40) m/uL Hgb (11.4-16.0) gm/dL Hct (34.0-46.0) % MCHC (31.0-37.0) g/dL RDW (11.5-15.5) % Plt Count (150-450) k/uL Neutrophils # (1.3-7.7) k/uL Sodium (137-145) mmol/L BUN (7-17) mg/dL Glucose (74-99) mg/dL POC Glucose (mg/dL) 156 H (75-99) mg/dL Total Protein (6.3-8.2) g/dL Albumin (3.5-5.0) g/dL Urine Appearance (Clear) Urine Protein (Negative) Urine Blood (Negative) Urine Nitrite (Negative) Urine Bilirubin (Negative) Ur Leukocyte Esterase (Negative) Urine RBC (0-5) /hpf Urine WBC (0-5) /hpf Urine WBC Clumps (None) /hpf Ur Squamous Epith Cells (0-4) /hpf Urine Bacteria (None) /hpf Urine Mucus (None) /hpf Crossmatch Microbiology - Last 24 Hours (Table) 01/21/21 22:11 Urine Culture - Preliminary Urine,Voided <Adrienne Elliott - Last Filed: 01/22/21 15:25> Objective - Vital Signs Vital signs: Vital Signs Temp 99.0 F 01/22/21 12:11 Pulse 76 01/22/21 12:11 Resp 20 01/22/21 12:11 BP 143/56 01/22/21 12:11 Pulse Ox 95 01/22/21 12:11 Intake & Output 01/21/21 01/22/21 01/22/21 18:59 06:59 18:59 Intake Total 310 Balance 310 Weight 68.039 kg 68.039 kg Intake: Blood Product 310 Rc As-1 Unit 310 [id number] Other: Voiding Method Toilet - Labs CBC & Chem 7: 01/22/21 12:32 01/21/21 22:11 Labs: Abnormal Lab Results - Last 24 Hours (Table) 01/21/21 01/21/21 01/21/21 Range/Units 22:11 22:11 22:11 WBC 17.1 H (3.8-10.6) k/uL RBC 2.05 L (3.80-5.40) m/uL Hgb 6.3 L* D (11.4-16.0) gm/dL Hct 19.8 L* (34.0-46.0) % MCHC (31.0-37.0) g/dL RDW (11.5-15.5) % Plt Count 491 H (150-450) k/uL Neutrophils # 14.6 H (1.3-7.7) k/uL Sodium 135 L (137-145) mmol/L BUN 26 H (7-17) mg/dL Glucose 156 H (74-99) mg/dL POC Glucose (mg/dL) (75-99) mg/dL Total Protein 5.6 L (6.3-8.2) g/dL Albumin 2.6 L (3.5-5.0) g/dL Urine Appearance Turbid H (Clear) Urine Protein 2+ H (Negative) Urine Blood Large H (Negative) Urine Nitrite Positive H (Negative) Urine Bilirubin 1+ H (Negative) Ur Leukocyte Esterase Large H (Negative) Urine RBC >182 H (0-5) /hpf Urine WBC >182 H (0-5) /hpf Urine WBC Clumps Many H (None) /hpf Ur Squamous Epith Cells 7 H (0-4) /hpf Urine Bacteria Many H (None) /hpf Urine Mucus Rare H (None) /hpf Crossmatch 01/22/21 01/22/21 01/22/21 Range/Units 00:42 00:42 06:25 WBC 15.1 H 16.6 H (3.8-10.6) k/uL RBC 2.08 L 2.57 L (3.80-5.40) m/uL Hgb 6.1 L* 7.7 L D (11.4-16.0) gm/dL Hct 20.5 L 25.1 L (34.0-46.0) % MCHC 29.7 L 30.5 L (31.0-37.0) g/dL RDW 16.7 H (11.5-15.5) % Plt Count 492 H 455 H (150-450) k/uL Neutrophils # (1.3-7.7) k/uL Sodium (137-145) mmol/L BUN (7-17) mg/dL Glucose (74-99) mg/dL POC Glucose (mg/dL) (75-99) mg/dL Total Protein (6.3-8.2) g/dL Albumin (3.5-5.0) g/dL Urine Appearance (Clear) Urine Protein (Negative) Urine Blood (Negative) Urine Nitrite (Negative) Urine Bilirubin (Negative) Ur Leukocyte Esterase (Negative) Urine RBC (0-5) /hpf Urine WBC (0-5) /hpf Urine WBC Clumps (None) /hpf Ur Squamous Epith Cells (0-4) /hpf Urine Bacteria (None) /hpf Urine Mucus (None) /hpf Crossmatch See Detail 01/22/21 01/22/21 01/22/21 Range/Units 07:50 11:55 12:32 WBC 16.3 H (3.8-10.6) k/uL RBC 2.79 L (3.80-5.40) m/uL Hgb 8.2 L (11.4-16.0) gm/dL Hct 27.0 L (34.0-46.0) % MCHC 30.4 L (31.0-37.0) g/dL RDW 16.7 H (11.5-15.5) % Plt Count 500 H (150-450) k/uL Neutrophils # (1.3-7.7) k/uL Sodium (137-145) mmol/L BUN (7-17) mg/dL Glucose (74-99) mg/dL POC Glucose (mg/dL) 156 H 216 H (75-99) mg/dL Total Protein (6.3-8.2) g/dL Albumin (3.5-5.0) g/dL Urine Appearance (Clear) Urine Protein (Negative) Urine Blood (Negative) Urine Nitrite (Negative) Urine Bilirubin (Negative) Ur Leukocyte Esterase (Negative) Urine RBC (0-5) /hpf Urine WBC (0-5) /hpf Urine WBC Clumps (None) /hpf Ur Squamous Epith Cells (0-4) /hpf Urine Bacteria (None) /hpf Urine Mucus (None) /hpf Crossmatch Microbiology - Last 24 Hours (Table) 01/21/21 22:11 Urine Culture - Preliminary Urine,Voided Assessment and Plan Assessment: Patient seen and examined independently. Patient was also seen by Vincent Dyson NP and case was discussed. I am in agreement with subjective, physical exam, assessment and plan as written above and amended below. Reports that she started having left lower from the cellulitis about 2 days ago, she is having some dysuria, she feels very tired. General: non toxic, no distress, appears at stated age Derm: Erythema left ankle no skin opening, warm, dry Head: atraumatic, normocephalic, symmetric Eyes: EOMI, no lid lag, anicteric sclera Mouth: no lip lesion, mucus membranes moist Cardiovascular: S1S2 reg, no murmur, positive posterior tibial pulse bilateral, Lungs: CTA bilateral, no rhonchi, no rales , no accessory muscle use Abdominal: soft, nontender to palpation, no guarding, no appreciable organomegaly Psych: Alert, oriented, appropriate affect
[2021-01-22 12:59] LABS: Anisocytosis Slight; HGB 8.2 gm/dL (11.4-16.0); Hypochromasia Marked; MCH 29.4 pg (25.0-35.0); MCHC 30.4 g/dL (31.0-37.0); MCV 96.7 fL (80.0-100.0); Macrocytosis Slight; Mean Platelet Volume 6.6; Platelet Count 500 k/uL (150-450); Poikilocytosis Slight; RBC 2.79 m/uL (3.80-5.40); RDW 16.7 % (11.5-15.5); WBC 16.3 k/uL (3.8-10.6)
[2021-01-22 16:34] LABS: Glucose,Whole Blood 148 mg/dL (75-99)
[2021-01-22 18:12] LABS: Hemoglobin A1C 5.1 % (4.0-6.0)
[2021-01-22 18:45] LABS: Anisocytosis Slight; HCT 24.9 % (34.0-46.0); Hypochromasia Moderate; MCH 30.4 pg (25.0-35.0); MCHC 32.1 g/dL (31.0-37.0); MCV 94.8 fL (80.0-100.0); Mean Platelet Volume 6.6; Platelet Count 482 k/uL (150-450); Poikilocytosis Slight; RBC 2.62 m/uL (3.80-5.40); RDW 16.4 % (11.5-15.5); WBC 18.4 k/uL (3.8-10.6)
[2021-01-22 20:21] LABS: Glucose,Whole Blood 169 mg/dL (75-99)
[2021-01-22] MEDS: MONTELUKAST 10 MG TAB PO SCH ×2 (21:41→21:46)
--- NOTE | 2021-01-22 21:41 | CONS ---
CONSULTATION DATE OF SERVICE: 01/22/2021 REASON FOR CONSULTATION: UTI and left lower extremity cellulitis. HISTORY OF PRESENT ILLNESS: The patient is a 70-year-old female with past medical history significant for recurrent UTI infection, GI bleed, history of lower extremity cellulitis and CHF. The patient presented to [facility] ER last night for evaluation of low back pain. The patient also complaining of painful urination, urgency, frequency that had been going on for the last 2 days before presentation to the hospital. Apparently has been treated with a course of Keflex without any improvement. The patient also complaining of left leg swelling and redness that has been going on for quite some time and apparently did not improve with oral Keflex. She has been complaining of pain to the left leg to be more of a dull aching, at times throbbing, intensity 6 to 7/10 and no radiation. The patient currently does not have any open wound or any drainage. With these symptoms, the patient has been evaluated by the ER physician. On arrival to the ER, the patient has been afebrile. Patient's white count 16.6 creatinine 0.94. Liver enzymes are normal. Urine was positive. Reyes PCR was negative. The patient has been started on Rocephin and vancomycin and admitted to the hospital. Infectious Disease consulted for further management of antibiotic therapy. REVIEW OF SYSTEMS: Positive points have been mentioned in HPI. Rest of systems are negative. PAST MEDICAL HISTORY: COPD, diabetes mellitus, hypertension, hyperlipidemia, osteoarthritis, recurrent UTI and left lower extremity cellulitis. PAST SURGICAL HISTORY: Appendectomy, , cholecystectomy, tubal ligation, previous nephrolithotomy. SOCIAL HISTORY: Remote history of smoking. No drinking or drug use. FAMILY HISTORY: Mother with history of emphysema. Brother history of oral cancer. ALLERGIES: CIPROFLOXACIN, NITROFURANTOIN. MEDICATIONS: The patient is on hydrocodone, DuoNeb and Abilify, Lipitor, Pulmicort, Rocephin 1 g daily, Lexapro, Lasix, NovoLog, Synthroid, Zestril, Mag oxide, Toprol-XL, Singulair, Narcan, Protonix, Aldactone, Desyrel, and vancomycin pharmacy to dose. PHYSICAL EXAMINATION: Blood pressure is 143/56, pulse of 73, temperature 99. She is 95% on 3 L nasal cannula. General description: The patient is an elderly female lying in bed in no distress. No tachypnea or accessory muscles of respiration use. HEENT: Examination shows pallor. No scleral icterus. Oral mucous membranes dry. NECK: Trachea central. No thyromegaly. LUNGS: Unlabored breathing. Clear to auscultation. No wheeze or crackles. Heart S1, S2. Regular rate and rhythm. Abdomen soft, no tenderness. No guarding. No rigidity. Extremities: No edema of the feet. Examination of left leg did have an area of erythema, slightly warm to touch. No blister or drainage. NEUROLOGICAL: Patient is awake, alert, oriented times three. Mood and affect normal. LABS: Hemoglobin is 8, white count 18.4, urine was positive. BUN of 26, creatinine 0.94, electrolytes have been normal, liver enzymes normal. Reyes PCR was negative. DIAGNOSTIC IMPRESSION AND PLAN: 1. Patient admitted to the hospital with multiple symptoms including burning frequency of urine and back pain with concern for possible failing recent Keflex therapy, likely with enteric Gram-negative pathogen. 2. Left leg cellulitis, failing oral Keflex therapy. PLAN: 1. Patient to continue with Rocephin 1 g IV daily while waiting for urine culture to finalize. 2. Continue with vancomycin pharmacy to dose, while watching her kidney function closely. 3. We will follow on kidney function and culture to further adjust medication if needed. Thank you for this consultation. We will follow the patient with you. MMODL / IJN: [id number] /
[2021-01-22] MEDS: ARIPiprazole 5 MG TAB PO SCH (22:03)
[2021-01-22 22:38] LABS: % Iron Saturation 18.41 (12.00-45.00); Ferritin 2328.6 ng/mL (10.0-291.0)
[2021-01-23] MEDS: VANCOMYCIN 1,250 MG in SODIUM CHLORIDE 0.9% 250 ML IVPB SCH (05:51)
[2021-01-23] MEDS: LEVOTHYROXINE 100 MCG TAB PO SCH (05:51)
[2021-01-23 06:35] LABS: Glucose,Whole Blood 140 mg/dL (75-99)
[2021-01-23] MEDS: INSULIN ASPART (NovoLOG) 100 UNIT/ML VIAL SQ SCH ×4 (07:32→21:32)
[2021-01-23] MEDS: MAGNESIUM OXIDE 400 MG TAB PO SCH (07:33)
[2021-01-23] MEDS: METOPROLOL SUCCINATE (ER) 25 MG TAB.ER.24H PO SCH (07:33)
[2021-01-23] MEDS: PANTOPRAZOLE 40 MG TABLET PO SCH ×2 (07:33→16:48)
[2021-01-23] MEDS: ATORVASTATIN 40 MG TAB PO SCH (07:33)
[2021-01-23] MEDS: lisinopriL 10 MG TAB PO SCH (07:33)
[2021-01-23] MEDS: FUROSEMIDE 40 MG TAB PO SCH (07:33)
[2021-01-23] MEDS: ESCITALOPRAM 20 MG TAB PO SCH (07:33)
[2021-01-23] MEDS: SPIRONOLACTONE 25 MG TAB PO SCH (07:33)
[2021-01-23] MEDS: CHOLECALCIFEROL 25 MCG (1000 IU) TABLET PO SCH (07:34)
[2021-01-23] MEDS: HYDROcodone/APAP 7.5-325MG 1 EACH TAB PO PRN ×3 (07:38→21:32)
[2021-01-23 07:46] LABS: African American GFR (CKD) 83 (>60 ml/min/1.73 sqM); Anion Gap 4 mmol/L; Blood Urea Nitrogen 16 mg/dL (7-17); Calcium 8.5 mg/dL (8.4-10.2); Carbon Dioxide 28 mmol/L (22-30); Chloride 104 mmol/L (98-107); Glucose 124 mg/dL (74-99); Magnesium 1.7 mg/dL (1.6-2.3); Non-African American GFR(CKD) 72 (>60 ml/min/1.73 sqM); Potassium 3.9 mmol/L (3.5-5.1); Sodium 136 mmol/L (137-145)
[2021-01-23] MEDS: IPRATROPIUM-ALBUTEROL 3 ML NEB INHALATION PRN ×2 (08:25→21:40)
[2021-01-23] MEDS: FORMOTEROL FUMARATE 20 MCG/2 ML NEBU INHALATION SCH ×2 (08:25→21:40)
[2021-01-23] MEDS: BUDESONIDE 1 MG/2 ML NEBU INHALATION SCH ×2 (08:25→21:40)
--- NOTE | 2021-01-23 08:49 | US ---
EXAMINATION TYPE: US kidneys/renal and bladder DATE OF EXAM: 01/23/2021 COMPARISON: NONE CLINICAL HISTORY: uti and bacteremia. EXAM MEASUREMENTS: Right Kidney: 13.7 x 5.8 x 5.2 cm Left Kidney: 13.7 x 5.3 x 5.2 cm Uncooperative patient, unwilling to move to help examiner. Technically difficult somewhat limited josh dy. Right Kidney: parapelvic hypoechoic areas, measures large, stone measuring 0.5 x 0.3 x 0.7cm Left Kidney: measures large, unable to finish pictures of left kidney due to patient being uncooperat denzel Bladder: not seen due to patient position. Right kidney: Hypoechoic area within the right parapelvic region with some acoustic shadowing uncerta in etiology. This was not present on the prior study dated 10/27/2020 possible represents echogenic ar terial in the collecting system over the collecting system is not dilated. There is a 5 mm x 7 mm evans culus in the mid right kidney. There is mild diffuse cortical thinning of the right kidney parenchyma . Left kidney: There is mild diffuse cortical thinning. There is no hydronephrosis, mass or left renal calculus. IMPRESSION: 1. Mild diffuse cortical thinning of both kidneys consistent with medical renal disease. 2. 7 mm right renal calculus without hydronephrosis. 3. Focal area of ill-defined echotexture in the right mid kidney with questionable acoustic shadowing . Etiology uncertain but was not present on the prior study. CT of the abdomen and pelvis useful for further characterization.
--- NOTE | 2021-01-23 09:17 | P.CONS ---
History of Present Illness - Reason for Consult Consult date: 01/22/21 Anemia Requesting physician: Noelle [place] - Chief Complaint Pain and burning with urination - History of Present Illness 70-year-old female with medical comorbidities including GI bleed, chronic anemia, asthma, COPD, diabetes mellitus, hypertension, hyperlipidemia, obesity, thyroid disorder presented to the hospital due to worsening urinary frequency and dysuria. The patient reported symptoms going on over the last few weeks of burning with urination. She was treated in the outpatient setting with antibiotics but continued to have symptoms. She also reported some left lower extremity redness and swelling which has been present for the past few days. Currently she is admitted and being treated for urinary tract infection as well as left lower extremity cellulitis. The patient has been evaluated for anemia on multiple occasions in the past and has required multiple transfusions of blood since February 2020. She initially underwent endoscopic evaluation 04/2020 with findings of duodenal ulcers on repeat EGD the patient was found to have a healing duodenal ulcer with bleeding angiodysplasia in the second part of the duodenum which was treated with cautery. She presented back a third occasion at that time had EGD with cautery using Gold probe ablation of a duodenal AVM as well as colonoscopy with cautery of cecal angiodysplasia as well as Endo Clip placement, and was also noted to have diverticulosis at that time. Most recently she had a push enteroscopy with Gold probe ablation in June 2020 with findings of 3 small bowel AVM mid third and fourth portion of the duodenum and treated with cold probe ablation. There was no active bleeding or old blood noted up to 75 cm post pylorus. There was a well healing duodenal ulcer. Her last endoscopic evaluation was on 10/31/20 at which time she had a 1 cm superficial duodenal bulbar ulcer treated with gold probe into smaller gastric AVMs also treated with coagulation therapy. In 01/07 the patient underwent video capsule endoscopy and was found to have scattered nonbleeding angiectasia throughout her entire visualized small bowel. Currently she is denying any signs or symptoms of GI bleed. No abdominal pain reported. She is receiving IV antibiotic therapy. The patient was previously followed up with hematology service and required IV iron infusions but reports it has been a while since she has received any iron supplementation. Currently she is not on any oral iron supplementation therapy. Review of Systems REVIEW OF SYSTEMS: CONSTITUTIONAL: Denies any fevers, chills, weight change or fatigue. CARDIOVASCULAR: Denies any chest pain, palpitations high or low blood pressures RESPIRATORY: Denies any shortness of breath, hemoptysis or cough, she is on home oxygen therapy for COPD. GENITOURINARY: She does report pain and burning with urination. MUSCULOSKELETAL: No weakness reported. SKIN: Denies any new rashes or lesions, jaundice or pallor, she does have some erythema and warm this of the left lower extremity. PSYCHIATRIC: Denies any depression or anxiety. NEUROLOGY: Denies headache, denies any new focal deficits. EARS/NOSE/THROAT: No recent hearing change, congestion, nasal discharge or sore throat. EYES: No pain in eyes, discharge or change in vision. GASTROINTESTINAL: As per HPI. Past Medical History Past Medical History: Asthma, Chest Pain / Angina, COPD, Diabetes Mellitus, Hyperlipidemia, Hypertension, Osteoarthritis (OA), Respiratory Disorder, Skin Di sorder, Thyroid Disorder Additional Past Medical History / Comment(s): Obesity (BMI 35) COPD, asthma, diabetes , depression, 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 The patient is also a recently quit smoker. The patient has chronic back pain. History of Any Multi-Drug Resistant Organisms: None Reported Past Surgical History: Appendectomy, Section, Cholecystectomy, Orthopedic Surgery, Tubal Ligation Additional Past Surgical History / Comment(s): LASER SX JETHRO EYES FOR GLAUCOMA. RT KNEE ARTHROSCOPY. UNDERWENT PERCUTANEOUS NEPHROSTOLITHOTOMY Past Anesthesia/Blood Transfusion Reactions: No Reported Reaction Past Psychological History: Anxiety, Depression Smoking Status: Former smoker Past Alcohol Use History: None Reported Past Drug Use History: None Reported - Past Family History Mother Additional Family Medical History / Comment(s): emphysema, heart valve problems, in her slepp. Brother(s) Family Medical History: Cancer Additional Family Medical History / Comment(s): from oral cancer Father Brother(s) Family Medical History: Cancer Additional Family Medical History / Comment(s): heart disease Medications and Allergies Home Medications Medication Instructions Recorded Confirmed Type Zafirlukast [Accolate] 20 mg PO BID 02/06/14 01/21/21 History ARIPiprazole [Abilify] 5 mg PO HS 02/07/18 01/21/21 History metFORMIN HCL [Glucophage] 1,000 mg PO BID-W/MEALS 02/07/18 01/21/21 History Atorvastatin [Lipitor] 40 mg PO DAILY #30 tab 09/10/18 01/21/21 Rx Cholecalciferol [Vitamin D3 (25 1,000 unit PO DAILY 09/03/19 01/21/21 History Mcg = 1000 Iu)] Levothyroxine Sodium [Synthroid] 200 mcg PO DAILY 09/03/19 01/21/21 History Albuterol Sulfate [Ventolin HFA] 1 - 2 puff INHALATION RT-Q6H PRN 03/11/20 01/21/21 History Escitalopram [Lexapro] 20 mg PO DAILY 03/11/20 01/21/21 History Budesonide [Pulmicort] 1 mg INHALATION RT-BID ml 03/27/20 01/21/21 Rx Formoterol Fumarate [Perforomist] 20 mcg INHALATION RT-BID nebu 03/27/20 01/21/21 Rx HYDROcodone/APAP 7.5-325MG [[place] 1 tab PO Q6H PRN #12 tab 03/27/20 01/21/21 Rx 7.5-325] Ipratropium-Albuterol Nebulize 3 ml INHALATION RT-Q2H PRN ml 03/27/20 01/21/21 Rx [Duoneb 0.5 mg-3 mg/3 ml Soln] Pantoprazole Sodium [Protonix] 40 mg PO BID #60 tablet.dr 03/27/20 01/21/21 Rx Furosemide [Lasix] 40 mg PO DAILY 04/27/20 01/21/21 History traZODone HCL 100 mg PO HS PRN 05/15/20 01/21/21 History Lisinopril [Zestril] 10 mg PO DAILY 05/28/20 01/21/21 History Spironolactone [Aldactone] 12.5 mg PO DAILY #30 tab 12/27/20 01/21/21 Rx Magnesium Oxide [Mag-Ox] 400 mg PO DAILY 01/21/21 01/21/21 History Metoprolol Succinate (ER) [Toprol 25 mg PO DAILY 01/21/21 01/21/21 History Xl] Allergies Allergy/AdvReac Type Severity Reaction Status Date / Time adhesive Allergy Rash/Hives Verified 01/21/21 22:45 ciprofloxacin [From Cipro] Allergy Rash/Hives Verified 01/21/21 22:45 ciprofloxacin HCl Allergy Rash/Hives Verified 01/21/21 22:45 [From Cipro] latex Allergy Rash/Hives Verified 01/21/21 22:45 levofloxacin [From Levaquin] Allergy Rash/Hives Verified 01/21/21 22:45 nitrofurantoin Allergy Rash/Hives Verified 01/21/21 22:45 [From Macrobid] nitrofurantoin Allergy Rash/Hives Verified 01/21/21 22:45 macrocrystalline [From Macrobid] Penicillins Allergy Rash/Hives Verified 01/21/21 22:45 propoxyphene HCl Allergy Rash/Hives Verified 01/21/21 22:45 [From Darvon] propoxyphene napsylate Allergy Unknown Verified 01/21/21 22:45 [From Darvocet-N] Physical Exam Vitals: Vital Signs Temp Pulse Resp BP Pulse Ox 01/22/21 08:30 86 01/22/21 08:15 87 01/22/21 08:00 86 18 126/66 94 L 01/22/21 05:25 97.5 F L 88 20 151/55 95 01/22/21 03:50 90 20 132/59 95 01/22/21 03:20 98.5 F 85 20 141/50 94 L 01/22/21 03:10 98.0 F 87 20 137/54 95 01/22/21 01:15 97.3 F L 84 20 130/52 93 L 01/21/21 21:32 98.3 F 83 20 141/57 94 L Intake and Output 01/21/21 01/22/21 01/22/21 22:59 06:59 14:59 Intake Total 310 Balance 310 Intake: Blood Product 310 Rc As-1 Unit 310 [id number] Other: Voiding Method Toilet Weight 68.039 kg On physical examination, patient appears comfortable in no apparent distress. HEAD: Normocephalic, atraumatic. EYES: No scleral icterus. No conjunctival injection. MOUTH: No lesions, tongue midline. NECK: Trachea midline, no gross abnormalities. CHEST: Decreased air entry in all lung campbell. HEART: S1-S2 appreciated. ABDOMEN: Soft, nontender to palpation. Bowel sounds are positive. No organomegaly. No guarding or rigidity. EXTREMITIES: No pedal edema, left lower extremity erythema and warmth. SKIN: No rashes, no jaundice. NEUROLOGIC: Alert and oriented x3. No focal deficits. Results CBC & Chem 7: 01/22/21 18:12 01/23/21 06:35 Labs: Abnormal Lab Results - Last 24 Hours (Table) 01/21/21 01/21/21 01/21/21 Range/Units 22:11 22:11 22:11 WBC 17.1 H (3.8-10.6) k/uL RBC 2.05 L (3.80-5.40) m/uL Hgb 6.3 L* D (11.4-16.0) gm/dL Hct 19.8 L* (34.0-46.0) % MCHC (31.0-37.0) g/dL RDW (11.5-15.5) % Plt Count 491 H (150-450) k/uL Neutrophils # 14.6 H (1.3-7.7) k/uL Sodium 135 L (137-145) mmol/L BUN 26 H (7-17) mg/dL Glucose 156 H (74-99) mg/dL POC Glucose (mg/dL) (75-99) mg/dL Total Protein 5.6 L (6.3-8.2) g/dL Albumin 2.6 L (3.5-5.0) g/dL Urine Appearance Turbid H (Clear) Urine Protein 2+ H (Negative) Urine Blood Large H (Negative) Urine Nitrite Positive H (Negative) Urine Bilirubin 1+ H (Negative) Ur Leukocyte Esterase Large H (Negative) Urine RBC >182 H (0-5) /hpf Urine WBC >182 H (0-5) /hpf Urine WBC Clumps Many H (None) /hpf Ur Squamous Epith Cells 7 H (0-4) /hpf Urine Bacteria Many H (None) /hpf Urine Mucus Rare H (None) /hpf Crossmatch 01/22/21 01/22/21 01/22/21 Range/Units 00:42 00:42 06:25 WBC 15.1 H 16.6 H (3.8-10.6) k/uL RBC 2.08 L 2.57 L (3.80-5.40) m/uL Hgb 6.1 L* 7.7 L D (11.4-16.0) gm/dL Hct 20.5 L 25.1 L (34.0-46.0) % MCHC 29.7 L 30.5 L (31.0-37.0) g/dL RDW 16.7 H (11.5-15.5) % Plt Count 492 H 455 H (150-450) k/uL Neutrophils # (1.3-7.7) k/uL Sodium (137-145) mmol/L BUN (7-17) mg/dL Glucose (74-99) mg/dL POC Glucose (mg/dL) (75-99) mg/dL Total Protein (6.3-8.2) g/dL Albumin (3.5-5.0) g/dL Urine Appearance (Clear) Urine Protein (Negative) Urine Blood (Negative) Urine Nitrite (Negative) Urine Bilirubin (Negative) Ur Leukocyte Esterase (Negative) Urine RBC (0-5) /hpf Urine WBC (0-5) /hpf Urine WBC Clumps (None) /hpf Ur Squamous Epith Cells (0-4) /hpf Urine Bacteria (None) /hpf Urine Mucus (None) /hpf Crossmatch See Detail 01/22/21 Range/Units 07:50 WBC (3.8-10.6) k/uL RBC (3.80-5.40) m/uL Hgb (11.4-16.0) gm/dL Hct (34.0-46.0) % MCHC (31.0-37.0) g/dL RDW (11.5-15.5) % Plt Count (150-450) k/uL Neutrophils # (1.3-7.7) k/uL Sodium (137-145) mmol/L BUN (7-17) mg/dL Glucose (74-99) mg/dL POC Glucose (mg/dL) 156 H (75-99) mg/dL Total Protein (6.3-8.2) g/dL Albumin (3.5-5.0) g/dL Urine Appearance (Clear) Urine Protein (Negative) Urine Blood (Negative) Urine Nitrite (Negative) Urine Bilirubin (Negative) Ur Leukocyte Esterase (Negative) Urine RBC (0-5) /hpf Urine WBC (0-5) /hpf Urine WBC Clumps (None) /hpf Ur Squamous Epith Cells (0-4) /hpf Urine Bacteria (None) /hpf Urine Mucus (None) /hpf Crossmatch Microbiology - Last 24 Hours (Table) 01/21/21 22:11 Urine Culture - Preliminary Urine,Voided US - abdomen: report reviewed Assessment and Plan (1) Symptomatic anemia Narrative/Plan: 70-year-old female with multiple medical comorbidities currently being hospitalized for urinary tract infection and left lower. Cellulitis. Patient has had multiple endoscopic evaluations with EGD, push enteroscopy's and colonoscopies within the past 2 years with findings of duodenal ulcer, gastric and small bowel angiectasia as well as a cecal AVM treated with coagulation therapy. Last EGD in 11/07 significant for friable duodenal ulcer with gastric antral ectasias both treated with coagulation therapy. On last admission in 01/07 patient underwent video capsule endoscopy with multiple nonbleeding angiectasia was noted in the small bowel. Currently denying any signs or symptoms of GI bleeding. She has required iron supplementation in the past and infusions but has not had one in a while as per her report. Current Visit: Yes Status: Acute Code(s): D64.9 - ANEMIA, UNSPECIFIED SNOMED Code(s): 885752323 (2) Cellulitis of left lower extremity Current Visit: Yes Status: Acute Code(s): L03.116 - CELLULITIS OF LEFT LOWER LIMB SNOMED Code(s): 516345375 (3) AVM (arteriovenous malformation) of small bowel, acquired Current Visit: No Status: Acute Code(s): K55.20 - ANGIODYSPLASIA OF COLON WITHOUT HEMORRHAGE SNOMED Code(s): 1878397778790 Plan: Supportive care Clear liquid diet, advance as tolerated Continue to monitor for signs or symptoms of GI bleed IV iron supplementation ordered Continue to monitor stool output Continue broad-spectrum antibiotic therapy as per the primary team No plans for endoscopic evaluation at this time, we'll continue to monitor and reevaluate if any signs or symptoms of GI bleeding occurs or there is a precipitous fall in her hemoglobin Thank you for allowing us to participate in the care of the patient
--- NOTE | 2021-01-23 10:31 | P.PN ---
<Vincent Dyson - Last Filed: 01/23/21 10:22> Subjective Progress Note Date: 01/23/21 Hospital course: Patient is a 70-year-old female with a past medical history including hyperten alvarado, hyperlipidemia, diabetes mellitus, COPD, hypothyroidism, previous episodes of GI bleeding with recurrent anemia, and chronic back pain. She presented to the hospital on 01/21/21 with a chief complaint of urinary frequency, urgency, and dysuria along with left lower extremity pain and swelling. Patient was seen and fully evaluated in the emergency department and was found to have a UTI, cellu litis of left lower extremity with leukocytosis of 17.1, and acute on chronic anemia with hemoglobin of 6.3 with repeat of 6.1 requiring transfusion of 1 unit PRBCs with posttransfusion hemoglobin of 7.7. Patient currently admitted under our services for continued close medical management with consults to infectious disease for cellulitis and recurrent UTIs along with consult to gastroenterology for GI bleed. Physical exam: Pt seen and fully evaluated at the bedside this morning. States that she continues to have persistent urinary frequency, urgency, and dysuria along with suprapubic discomfort and is now experiencing an increase/uncontrolled chronic lower back pain. Order placed for lidocaine patches in addition to [place] patient is already receiving. She continues to deny any abdominal pain/cramping/tenderness, chest pain, palpitations, SOB, or having any noted bleeding or bruising. Dr. King, gastroenerology states pt with chronic ulcers and anemia and recommends transfusing 3 bags of iron. General: non toxic, no distress, appears at stated age Derm: warm and dry with Left lower extremity circumferential edema, erythema and increased warmth with pain upon palpation. Area outlined with surgical skin marker and erythema remains within outlined area. Head: Atraumatic, normocephalic, symmetric Eyes: EOMI, No lid lag, anicteric sclera Mouth: no lip lesion, mucus membranes moist Cardiovascular: [id number] with regular rate and rhythm. Murmur present, gallop, or rub. Positive posterior tibial pulses palpated bilaterally. Lungs: CTA bilateral, no rhonchi, no rales , no accessory muscle use Abdominal: Obese abdomen soft, suprapubic tenderness to palpation, no guarding, no appreciable organomegaly. No CVA tenderness. Ext: No gross muscle atrophy, no contractures Neuro: CN II-XI grossly intact, no focal neuro deficits Psych: Alert, oriented, appropriate affect Plan of care: Acute blood loss anemia with history of GI bleed resulting in transfusion of 1 unit PRBCs. -Hemoglobin stable at 8.0. -Continue Protonix twice a day. -Full liquid diet -GI consulted and recommending transfusion of iron. UTI -Urinalysis turbid appearance positive for protein, blood, nitrites, bilirubin, leukocytes, > 182 RBCs, and > 182 WBCs. -Continue IV antibiotic with Rocephin -Urine culture positive for gram-negative axillae, awaiting sensitivity report. -Monitor I's and O's -Bladder management to check for postvoid residuals Left lower extremity cellulitis, improving -Consult infectious disease, appreciate further recommendations -Continue IV antibiotics: Vancomycin and Rocephin Hypertension -Monitor vital signs and continue daily medication management with metoprolol. Hyperlipidemia -Continue daily medication regimen with atorvastatin 40 mg daily. Diabetes mellitus -Hold Glucophage in place patient on glycemic protocol with NovoLog sliding s efraín. Hypothyroidism -Continue daily medication management with level thyroxine 200 g daily. COPD -Provide oxygenation supplementation as needed to maintain SpO2 equal to or greater than 92% at all times. -Encourage incentive spirometry use 10-15 times hourly while awake. CODE STATUS: Full code DVT prophylaxis: SCDs Discussed with: Patient and RN Anticipated discharge date: Clinical course to determine Anticipated discharge place: Home A total of 45 minutes was spent on the care of this complex patient more than 50% of the time was spent in counseling and care coordination. Objective - Vital Signs Vital signs: Vital Signs Temp 99.2 F 01/23/21 07:57 Pulse 81 01/23/21 07:57 Resp 18 01/23/21 07:57 BP 155/63 01/23/21 07:57 Pulse Ox 96 01/23/21 07:57 Intake & Output 01/22/21 01/23/21 01/23/21 18:59 06:59 18:59 Weight 68.039 kg Other: Voiding Method Bedside Commode # Voids 7 7 - Labs CBC & Chem 7: 01/22/21 18:12 01/23/21 06:35 Labs: Abnormal Lab Results - Last 24 Hours (Table) 01/22/21 01/22/21 01/22/21 Range/Units 00:42 00:42 11:55 WBC (3.8-10.6) k/uL RBC (3.80-5.40) m/uL Hgb (11.4-16.0) gm/dL Hct (34.0-46.0) % MCHC (31.0-37.0) g/dL RDW (11.5-15.5) % Plt Count (150-450) k/uL Sodium (137-145) mmol/L Glucose (74-99) mg/dL POC Glucose (mg/dL) 216 H (75-99) mg/dL Iron 37 L (50-170) ug/dL TIBC 201 L (228-460) ug/dL Ferritin 2328.6 H (10.0-291.0) ng/mL Crossmatch See Detail 01/22/21 01/22/21 01/22/21 Range/Units 12:32 16:31 18:12 WBC 16.3 H 18.4 H (3.8-10.6) k/uL RBC 2.79 L 2.62 L (3.80-5.40) m/uL Hgb 8.2 L 8.0 L (11.4-16.0) gm/dL Hct 27.0 L 24.9 L (34.0-46.0) % MCHC 30.4 L (31.0-37.0) g/dL RDW 16.7 H 16.4 H (11.5-15.5) % Plt Count 500 H 482 H (150-450) k/uL Sodium (137-145) mmol/L Glucose (74-99) mg/dL POC Glucose (mg/dL) 148 H (75-99) mg/dL Iron (50-170) ug/dL TIBC (228-460) ug/dL Ferritin (10.0-291.0) ng/mL Crossmatch 01/22/21 01/23/21 01/23/21 Range/Units 20:20 06:34 06:35 WBC (3.8-10.6) k/uL RBC (3.80-5.40) m/uL Hgb (11.4-16.0) gm/dL Hct (34.0-46.0) % MCHC (31.0-37.0) g/dL RDW (11.5-15.5) % Plt Count (150-450) k/uL Sodium 136 L (137-145) mmol/L Glucose 124 H (74-99) mg/dL POC Glucose (mg/dL) 169 H 140 H (75-99) mg/dL Iron (50-170) ug/dL TIBC (228-460) ug/dL Ferritin (10.0-291.0) ng/mL Crossmatch Microbiology - Last 24 Hours (Table) 01/21/21 22:11 Urine Culture - Preliminary Urine,Voided Gram Neg Bacilli 01/21/21 22:27 Blood Culture - Preliminary Blood No Growth after 24 hours <Adrienne Elliott - Last Filed: 01/23/21 14:34> Objective - Vital Signs Vital signs: Vital Signs Temp 99.2 F 01/23/21 07:57 Pulse 72 01/23/21 08:43 Resp 18 01/23/21 07:57 BP 155/63 01/23/21 07:57 Pulse Ox 96 01/23/21 07:57 Intake & Output 01/22/21 01/23/21 01/23/21 18:59 06:59 18:59 Weight 68.039 kg Other: Voiding Method Bedside Commode Bedside Commode # Voids 7 7 2 # Bowel Movements 1 - Labs CBC & Chem 7: 01/23/21 06:35 01/23/21 06:35 Labs: Abnormal Lab Results - Last 24 Hours (Table) 01/22/21 01/22/21 01/22/21 Range/Units 00:42 00:42 16:31 WBC (3.8-10.6) k/uL RBC (3.80-5.40) m/uL Hgb (11.4-16.0) gm/dL Hct (34.0-46.0) % MCV (80.0-97.0) fL MCHC (32.0-37.0) g/dL RDW (11.5-15.5) % Plt Count (150-450) k/uL MPV (9.5-12.2) fL Sodium (137-145) mmol/L Glucose (74-99) mg/dL POC Glucose (mg/dL) 148 H (75-99) mg/dL Iron 37 L (50-170) ug/dL TIBC 201 L (228-460) ug/dL Ferritin 2328.6 H (10.0-291.0) ng/mL Crossmatch See Detail 01/22/21 01/22/21 01/23/21 Range/Units 18:12 20:20 06:34 WBC 18.4 H (3.8-10.6) k/uL RBC 2.62 L (3.80-5.40) m/uL Hgb 8.0 L (11.4-16.0) gm/dL Hct 24.9 L (34.0-46.0) % MCV (80.0-97.0) fL MCHC (32.0-37.0) g/dL RDW 16.4 H (11.5-15.5) % Plt Count 482 H (150-450) k/uL MPV (9.5-12.2) fL Sodium (137-145) mmol/L Glucose (74-99) mg/dL POC Glucose (mg/dL) 169 H 140 H (75-99) mg/dL Iron (50-170) ug/dL TIBC (228-460) ug/dL Ferritin (10.0-291.0) ng/mL Crossmatch 01/23/21 01/23/21 01/23/21 Range/Units 06:35 06:35 11:21 WBC 12.83 H (3.8-10.6) k/uL RBC 2.37 L (3.80-5.40) m/uL Hgb 7.1 L (11.4-16.0) gm/dL Hct 23.7 L (34.0-46.0) % MCV 100.0 H (80.0-97.0) fL MCHC 30.0 L (32.0-37.0) g/dL RDW 17.2 H (11.5-15.5) % Plt Count (150-450) k/uL MPV 8.8 L (9.5-12.2) fL Sodium 136 L (137-145) mmol/L Glucose 124 H (74-99) mg/dL POC Glucose (mg/dL) 176 H (75-99) mg/dL Iron (50-170) ug/dL TIBC (228-460) ug/dL Ferritin (10.0-291.0) ng/mL Crossmatch Microbiology - Last 24 Hours (Table) 01/21/21 22:11 Urine Culture - Preliminary Urine,Voided Gram Neg Bacilli 01/21/21 22:27 Blood Culture - Preliminary Blood No Growth after 24 hours Assessment and Plan Assessment: Patient seen and examined independently. Patient was also seen by Vincent Dyson NP and case was discussed. I am in agreement with subjective, physical exam, assessment and plan as written above and amended below. No chest pain, feeling much better, is aware that we need to monitor until urine culture results as recent ABX exposure and multiple allergies. General: non toxic, no distress, appears at stated age Derm: warm, dry Head: atraumatic, normocephalic, symmetric Eyes: EOMI, no lid lag, anicteric sclera Mouth: no lip lesion, mucus membranes moist Cardiovascular: S1S2 reg, + murmur, positive posterior tibial pulse bilateral, L LE edema Lungs: CTA bilateral, no rhonchi, no rales , no accessory muscle use
--- NOTE | 2021-01-23 10:48 | P.PN ---
Subjective Progress Note Date: 01/23/21 Principal diagnosis: Symptomatic anemia, angioctasia of the small and large bowel The patient is seen lying in bed with no signs or symptoms of GI bleeding. Tolerating diet. Objective - Vital Signs Vital signs: Vital Signs Temp 99.2 F 01/23/21 07:57 Pulse 72 01/23/21 08:43 Resp 18 01/23/21 07:57 BP 155/63 01/23/21 07:57 Pulse Ox 96 01/23/21 07:57 Intake & Output 01/22/21 01/23/21 01/23/21 18:59 06:59 18:59 Weight 68.039 kg Other: Voiding Method Bedside Commode # Voids 7 7 - Exam On physical examination, patient appears comfortable in no apparent distress. HEAD: Normocephalic, atraumatic. EYES: No scleral icterus. No conjunctival injection. MOUTH: No lesions, tongue midline. NECK: Trachea midline, no gross abnormalities. ABDOMEN: Soft, obese. Bowel sounds are positive. No organomegaly. No guarding or rigidity. EXTREMITIES: No pedal edema. SKIN: No jaundice, left lower extremity cellulitis. NEUROLOGIC: Alert and oriented x3. No focal deficits. - Labs CBC & Chem 7: 01/22/21 18:12 01/23/21 06:35 Labs: Abnormal Lab Results - Last 24 Hours (Table) 01/22/21 01/22/21 01/22/21 Range/Units 00:42 00:42 11:55 WBC (3.8-10.6) k/uL RBC (3.80-5.40) m/uL Hgb (11.4-16.0) gm/dL Hct (34.0-46.0) % MCHC (31.0-37.0) g/dL RDW (11.5-15.5) % Plt Count (150-450) k/uL Sodium (137-145) mmol/L Glucose (74-99) mg/dL POC Glucose (mg/dL) 216 H (75-99) mg/dL Iron 37 L (50-170) ug/dL TIBC 201 L (228-460) ug/dL Ferritin 2328.6 H (10.0-291.0) ng/mL Crossmatch See Detail 01/22/21 01/22/21 01/22/21 Range/Units 12:32 16:31 18:12 WBC 16.3 H 18.4 H (3.8-10.6) k/uL RBC 2.79 L 2.62 L (3.80-5.40) m/uL Hgb 8.2 L 8.0 L (11.4-16.0) gm/dL Hct 27.0 L 24.9 L (34.0-46.0) % MCHC 30.4 L (31.0-37.0) g/dL RDW 16.7 H 16.4 H (11.5-15.5) % Plt Count 500 H 482 H (150-450) k/uL Sodium (137-145) mmol/L Glucose (74-99) mg/dL POC Glucose (mg/dL) 148 H (75-99) mg/dL Iron (50-170) ug/dL TIBC (228-460) ug/dL Ferritin (10.0-291.0) ng/mL Crossmatch 01/22/21 01/23/21 01/23/21 Range/Units 20:20 06:34 06:35 WBC (3.8-10.6) k/uL RBC (3.80-5.40) m/uL Hgb (11.4-16.0) gm/dL Hct (34.0-46.0) % MCHC (31.0-37.0) g/dL RDW (11.5-15.5) % Plt Count (150-450) k/uL Sodium 136 L (137-145) mmol/L Glucose 124 H (74-99) mg/dL POC Glucose (mg/dL) 169 H 140 H (75-99) mg/dL Iron (50-170) ug/dL TIBC (228-460) ug/dL Ferritin (10.0-291.0) ng/mL Crossmatch Microbiology - Last 24 Hours (Table) 01/21/21 22:11 Urine Culture - Preliminary Urine,Voided Gram Neg Bacilli 01/21/21 22:27 Blood Culture - Preliminary Blood No Growth after 24 hours Assessment and Plan (1) Symptomatic anemia Narrative/Plan: 70-year-old female with multiple medical comorbidities currently being hospi talized for urinary tract infection and left lower. Cellulitis. Patient has had multiple endoscopic evaluations with EGD, push enteroscopy's and colonoscopies within the past 2 years with findings of duodenal ulcer, gastric and small bowel angiectasia as well as a cecal AVM treated with coagulation therapy. Last EGD in 11/07 significant for friable duodenal ulcer with gastric antral ectasias both treated with coagulation therapy. On last admission in 01/07 patient underwent video capsule endoscopy with multiple nonbleeding angiectasia was noted in the small bowel. Currently denying any signs or symptoms of GI bleeding. She has required iron supplementation in the past and infusions but has not had one in a while as per her report. Current Visit: Yes Status: Acute Code(s): D64.9 - ANEMIA, UNSPECIFIED SNOMED Code(s): 463230256 (2) Cellulitis of left lower extremity Current Visit: Yes Status: Acute Code(s): L03.116 - CELLULITIS OF LEFT LOWER LIMB SNOMED Code(s): 541075208 (3) AVM (arteriovenous malformation) of small bowel, acquired Current Visit: No Status: Acute Code(s): K55.20 - ANGIODYSPLASIA OF COLON WITHOUT HEMORRHAGE SNOMED Code(s): 7012493514307 Plan: Supportive care Okay for diet as tolerated Continue to monitor for signs or symptoms of GI bleed IV iron supplementation ordered Continue to monitor stool output Continue broad-spectrum antibiotic therapy as per the primary team No plans for endoscopic evaluation at this time, we'll continue to monitor and reevaluate if any signs or symptoms of GI bleeding occurs or there is a precipitous fall in her hemoglobin Thank you for allowing us to participate in the care of the patient
[2021-01-23] MEDS: SODIUM FERRIC GLUCONAT-SUCROSE 125 MG in SODIUM CHLORIDE 0.9% 100 ML IVPB SCH (11:04)
[2021-01-23 11:29] LABS: Glucose,Whole Blood 176 mg/dL (75-99)
[2021-01-23 12:26] LABS: HCT 23.7 % (37.2-46.3); HGB 7.1 g/dL (12.0-15.0); Mean Platelet Volume 8.8 fL (9.5-12.2); Platelet Count 414 X 10*3/uL (140-440); RBC 2.37 X 10*6/uL (4.10-5.20); RDW 17.2 % (11.5-14.5); WBC 12.83 X 10*3/uL (4.50-10.00)
[2021-01-23] MEDS: LIDOCAINE 5% PATCH TOPICAL SCH (13:58)
[2021-01-23] MEDS: MAGNESIUM SULFATE-D5W PMX 1 GM in DEXTROSE/WATER 1 100ML.BAG IVPB SCH ×2 (13:58→16:13)
[2021-01-23 16:36] LABS: Glucose,Whole Blood 122 mg/dL (75-99)
--- NOTE | 2021-01-23 19:36 | PN ---
PROGRESS NOTE DATE OF SERVICE: 01/23/2021 REASON FOR FOLLOWUP: Urinary tract infection and left leg cellulitis. INTERVAL HISTORY: Patient is afebrile. The patient mentioned she is feeling much better. She is breathing comfortably. Denies any chest pain or shortness of breath. No abdominal pain. Urinary symptoms have improved. Left leg swelling has decreased. PHYSICAL EXAMINATION: Blood pressure is 155/63, pulse of 81, temperature 99.2. She is 96% on 3 L. General description is an elderly female lying in bed in no distress. Respiratory system: Unlabored breathing, clear to auscultation anteriorly. Heart S1, S2. Regular rate and rhythm. Abdomen soft, no tenderness. Left leg swelling has decreased. LABS: Hemoglobin is 7.1, white count is down to 12.83. The creatinine is 0.83. Urine showing Gram-negative. DIAGNOSTIC IMPRESSION AND PLAN: 1. Patient admitted to the hospital with symptomatic urinary tract infection, urine showing gram-negative. Patient is covered with Zosyn to continue while waiting for the culture to finalize. 2. Left lower extremity cellulitis. Patient responded to the Keflex, clinically responding to the vancomycin, to continue. Hopefully finish therapy with oral antibiotics. Continue supportive care. MMODL / IJN: [id number] /
[2021-01-23 20:23] LABS: Glucose,Whole Blood 161 mg/dL (75-99)
[2021-01-23] MEDS: traZODone HCL 100 MG TAB PO PRN (21:34)
[2021-01-23] MEDS: MONTELUKAST 10 MG TAB PO SCH (21:34)
[2021-01-23] MEDS: ARIPiprazole 5 MG TAB PO SCH (21:34)
[2021-01-24 01:19] VITALS: RESP 16
[2021-01-24] MEDS: VANCOMYCIN 1,250 MG in SODIUM CHLORIDE 0.9% 250 ML IVPB SCH (05:28)
[2021-01-24] MEDS: LEVOTHYROXINE 100 MCG TAB PO SCH (05:28)
[2021-01-24 07:02] LABS: Glucose,Whole Blood 153 mg/dL (75-99)
[2021-01-24] MEDS: INSULIN ASPART (NovoLOG) 100 UNIT/ML VIAL SQ SCH ×2 (07:20→12:26)
[2021-01-24] MEDS: ATORVASTATIN 40 MG TAB PO SCH (07:21)
[2021-01-24] MEDS: HYDROcodone/APAP 7.5-325MG 1 EACH TAB PO PRN (07:21)
[2021-01-24] MEDS: lisinopriL 10 MG TAB PO SCH (07:21)
[2021-01-24] MEDS: SPIRONOLACTONE 25 MG TAB PO SCH (07:21)
[2021-01-24] MEDS: MAGNESIUM OXIDE 400 MG TAB PO SCH (07:21)
[2021-01-24] MEDS: FUROSEMIDE 40 MG TAB PO SCH ×2 (07:21→07:27)
[2021-01-24] MEDS: METOPROLOL SUCCINATE (ER) 25 MG TAB.ER.24H PO SCH (07:21)
[2021-01-24] MEDS: ESCITALOPRAM 20 MG TAB PO SCH (07:21)
[2021-01-24] MEDS: CHOLECALCIFEROL 25 MCG (1000 IU) TABLET PO SCH (07:22)
[2021-01-24] MEDS: PANTOPRAZOLE 40 MG TABLET PO SCH (07:22)
[2021-01-24] MEDS: LIDOCAINE 5% PATCH TOPICAL SCH (07:24)
[2021-01-24 08:59] VITALS: BP 132/65; TEMP 98
[2021-01-24] MEDS: SODIUM FERRIC GLUCONAT-SUCROSE 125 MG in SODIUM CHLORIDE 0.9% 100 ML IVPB SCH (09:19)
[2021-01-24] MEDS: IPRATROPIUM-ALBUTEROL 3 ML NEB INHALATION PRN ×2 (09:33→12:57)
[2021-01-24] MEDS: BUDESONIDE 1 MG/2 ML NEBU INHALATION SCH (09:34)
[2021-01-24] MEDS: FORMOTEROL FUMARATE 20 MCG/2 ML NEBU INHALATION SCH (09:34)
--- NOTE | 2021-01-24 09:45 | P.DS ---
Providers Date of admission: 01/22/21 00:43 Expected date of discharge: 01/24/21 Attending physician: Noelle Colorado MD Consults: 01/22/21 00:03 Consult Physician Routine Consulting Provider: Mayco Jaffe Consult Reason/Comments: Recurrent UTI; Cellulitis Do you want consulting provider notified?: Yes 01/22/21 02:13 Consult Physician Routine Consulting Provider: Gabriella Kessler Consult Reason/Comments: GIB Do you want consulting provider notified?: Yes Primary care physician: [facility] Hospital Course: Discharge Diagnosis: Acute on Chronic anemia with history of GI bleed resulting in transfusion of 1 unit PRBCs and iron transfusion. UTI, symptoms improved Left lower extremity cellulitis, improved Hypertension Hyperlipidemia Diabetes mellitus Hypothyroidism COPD Chronic lower back pain Hospital Course: Patient is a 70-year-old female with a past medical history including hypertension, hyperlipidemia, diabetes mellitus, COPD, hypothyroidism, previous episodes of GI bleeding with recurrent anemia, and chronic back pain. She presented to the hospital on 01/21/21 with a chief complaint of urinary frequency, urgency, and dysuria along with left lower extremity pain and swelling. Patient was seen and fully evaluated in the emergency department and was found to have a UTI, cellulitis of left lower extremity with leukocytosis of 17.1, and acute on chronic anemia with hemoglobin of 6.3 with repeat of 6.1 requiring transfusion of 1 unit PRBCs with posttransfusion hemoglobin of 7.7. Patient currently admitted under our services for continued close medical management with consults to infectious disease for cellulitis and recurrent UTIs along with consult to gastroenterology for GI bleed. Patient seen and fully evaluated by GI, whom stated patient has had multiple endoscopic evaluations and has a chronic duodenal ulcer and recommended no further transfusion of RBCs in place order for iron transfusion and cleared patient for discharge home. Patient also seen and fully evaluated by infectious disease for recurrent UTI and left lower extremity cellulitis, patient was treated with IV antibiotics clindamycin and vancomycin and was found to have urine culture positive for pseudomonas aeruginosa with blood culture showing no growth after 48 hours. Patient cleared by infectious disease for discharge home on ciprofloxacin and doxycycline. Patient denies having any complaints at this time including headache, lightheadedness, dizziness, chest pain, palpitations, shortness of breath, abdominal pain or discomfort, or experiencing any numbness/tingling/weakness in her extremities. Patient has been tolerating her diet and states she is ready to go home. Patient medically stable for discharge at this time. She is being discharged home on antibiotics ciprofloxacin and doxycycline. Prescription for lidocaine patches also given to assist with pain control of chronic lower back pain. Patient to follow up outpatient with PCP, GI, and infectious disease. Patient given prescription to have repeat CBC in 2 days. Physical exam: General: non toxic, no distress, appears at stated age Derm: warm and dry with minimal Left lower extremity circumferential edema, erythema. Area outlined with surgical skin marker and erythema significantly improved within outlined area. Head: Atraumatic, normocephalic, symmetric Eyes: EOMI, No lid lag, anicteric sclera Mouth: no lip lesion, mucus membranes moist Cardiovascular: [id number] with regular rate and rhythm. Murmur present, gallop, or rub. Positive posterior tibial pulses palpated bilaterally. Lungs: CTA bilateral, no rhonchi, no rales , no accessory muscle use Abdominal: Obese abdomen soft, nontender to palpation, no guarding, no appreciable organomegaly. No CVA tenderness. Ext: No gross muscle atrophy, no contractures Neuro: CN II-XI grossly intact, no focal neuro deficits Psych: Alert, oriented, appropriate affect A total of 45 minutes of time were spent preparing this complex discharge summ demi. Patient Condition at Discharge: Serious Plan - Discharge Summary Discharge Rx Participant: Yes New Discharge Prescriptions: New Lidocaine 5% Patch [Lidoderm 5% Patch] 2 patch TOPICAL Q24H 30 Days #1 box Ciprofloxacin HCl [Cipro] 500 mg PO Q12HR 7 Days #14 tab Doxycycline [Vibramycin] 100 mg PO BID 7 Days #14 capsule Continue Zafirlukast [Accolate] 20 mg PO BID metFORMIN HCL [Glucophage] 1,000 mg PO BID-W/MEALS ARIPiprazole [Abilify] 5 mg PO HS Atorvastatin [Lipitor] 40 mg PO DAILY #30 tab Cholecalciferol [Vitamin D3 (25 Mcg = 1000 Iu)] 1,000 unit PO DAILY Levothyroxine Sodium [Synthroid] 200 mcg PO DAILY Albuterol Sulfate [Ventolin HFA] 1 - 2 puff INHALATION RT-Q6H PRN PRN Reason: Shortness Of Breath Escitalopram [Lexapro] 20 mg PO DAILY Ipratropium-Albuterol Nebulize [Duoneb 0.5 mg-3 mg/3 ml Soln] 3 ml INHALATION RT-Q2H PRN ml PRN Reason: Shortness Of Breath Or Wheezing Formoterol Fumarate [Perforomist] 20 mcg INHALATION RT-BID nebu Pantoprazole Sodium [Protonix] 40 mg PO BID #60 tablet. Budesonide [Pulmicort] 1 mg INHALATION RT-BID ml HYDROcodone/APAP 7.5-325MG [Tilden 7.5-325] 1 tab PO Q6H PRN #12 tab PRN Reason: Pain Furosemide [Lasix] 40 mg PO DAILY traZODone HCL 100 mg PO HS PRN PRN Reason: Sedation Lisinopril [Zestril] 10 mg PO DAILY Spironolactone [Aldactone] 12.5 mg PO DAILY #30 tab Magnesium Oxide [Mag-Ox] 400 mg PO DAILY Metoprolol Succinate (ER) [Toprol XL] 25 mg PO DAILY Discharge Medication List Zafirlukast [Accolate] 20 mg PO BID 02/06/14 [History] ARIPiprazole [Abilify] 5 mg PO HS 02/07/18 [History] metFORMIN HCL [Glucophage] 1,000 mg PO BID-W/MEALS 02/07/18 [History] Atorvastatin [Lipitor] 40 mg PO DAILY #30 tab 09/10/18 [Rx] Cholecalciferol [Vitamin D3 (25 Mcg = 1000 Iu)] 1,000 unit PO DAILY 09/03/19 [History] Levothyroxine Sodium [Synthroid] 200 mcg PO DAILY 09/03/19 [History] Albuterol Sulfate [Ventolin HFA] 1 - 2 puff INHALATION RT-Q6H PRN 03/11/20 [History] Escitalopram [Lexapro] 20 mg PO DAILY 03/11/20 [History] Budesonide [Pulmicort] 1 mg INHALATION RT-BID ml 03/27/20 [Rx] Formoterol Fumarate [Perforomist] 20 mcg INHALATION RT-BID nebu 03/27/20 [Rx] HYDROcodone/APAP 7.5-325MG [Tilden 7.5-325] 1 tab PO Q6H PRN #12 tab 03/27/20 [Rx] Ipratropium-Albuterol Nebulize [Duoneb 0.5 mg-3 mg/3 ml Soln] 3 ml INHALATION RT-Q2H PRN ml 03/27/20 [Rx] Pantoprazole Sodium [Protonix] 40 mg PO BID #60 tablet.dr 03/27/20 [Rx] Furosemide [Lasix] 40 mg PO DAILY 04/27/20 [History] traZODone HCL 100 mg PO HS PRN 05/15/20 [History] Lisinopril [Zestril] 10 mg PO DAILY 05/28/20 [History] Spironolactone [Aldactone] 12.5 mg PO DAILY #30 tab 12/27/20 [Rx] Magnesium Oxide [Mag-Ox] 400 mg PO DAILY 01/21/21 [History] Metoprolol Succinate (ER) [Toprol XL] 25 mg PO DAILY 01/21/21 [History] Ciprofloxacin HCl [Cipro] 500 mg PO Q12HR 7 Days #14 tab 01/24/21 [Rx] Doxycycline [Vibramycin] 100 mg PO BID 7 Days #14 capsule 01/24/21 [Rx] Lidocaine 5% Patch [Lidoderm 5% Patch] 2 patch TOPICAL Q24H 30 Days #1 box 0 01/24/21 [Rx] Follow up Appointment(s)/Referral(s): Mayco Jaffe MD [STAFF PHYSICIAN] - 02/01/21 3:15 pm Connor Carreon [Primary Care Provider] - 1-2 days Vinny King MD [STAFF PHYSICIAN] - 1 Week Ambulatory/Diagnostic Orders: Complete Blood Count w/diff [LAB.AMB] Time Frame: 2 Days, Location: None Selected Complete Blood Count w/diff [LAB.AMB] Location: None Selected Activity/Diet/Wound Care/Special Instructions: Activity: As tolerated Diet: Heart healthy carb consistent diet. Wound Care: Continue antibiotics for left lower extremity cellulitis, make sure you complete entire antibiotic course. Special Instructions: You are being discharged home on 2 antibiotics ciprofloxacin and doxycycline. It is important to take these medications directly as prescribed without missing any doses and complete entire course. He will need to follow up outpatient with her primary care provider-Dr. Carreon, mining technician Dr. King, an infectious disease specialist Dr. Jaffe. Thank you for allowing us to participate in your care, it was a pleasure having a pretty patient! Discharge Disposition: HOME SELF-CARE
[2021-01-24 10:14] LABS: African American GFR (CKD) 86 (>60 ml/min/1.73 sqM); Anion Gap 5 mmol/L; Blood Urea Nitrogen 13 mg/dL (7-17); Calcium 8.3 mg/dL (8.4-10.2); Carbon Dioxide 27 mmol/L (22-30); Chloride 101 mmol/L (98-107); Glucose 238 mg/dL (74-99); Magnesium 1.8 mg/dL (1.6-2.3); Non-African American GFR(CKD) 75 (>60 ml/min/1.73 sqM); Potassium 3.6 mmol/L (3.5-5.1); Sodium 133 mmol/L (137-145)
[2021-01-24 11:39] LABS: Glucose,Whole Blood 204 mg/dL (75-99)
--- NOTE | 2021-01-24 12:15 | CDI ---
Documentation Clarification Form Date: 01/24/2021 11:25:01 AM From: Carline Fox RN, CCDS Admit Date: 01/22/2021 12:43:00 AM Patient Name: Ban Estrada Visit Number: [id number] Discharge Date: ATTENTION: The Clinical Documentation Specialists (CDI) and [facility] Coding Staff appreciate your assistance in clarifying documentation. Please respond to the clarification below the line at the bottom and electronically sign. The CDI & [facility] Coding staff will review the response and follow-up if needed. Please note: Queries are made part of the Legal Health Record. If you have any questions, please contact the author of this message via ITS. Dr. Noelle Colorado Your patient has the documented diagnosis of unspecified CHF 01/22/21with ongoing treatment. Additional information regarding the [type, acuity] of CHF is requested. History/Risk Factors: UTI, Chronic GI Bleed with anemia, CHF, Diabetes mellitus, Hyperlipidemia, Hypertension, Chronic hypoxic respiratory failure. Clinical Indicators: 70-year-old present with left leg pain and swelling. She has chronic unchanged dyspnea on exertion with poor exercise tolerance. Lungs: CTA bilateral, no rhonchi, no rales no accessory muscle use. 01/21 VS/Pulse OX: 141/57 83 20 98.3 94 % RA 12/25 Echocardiogram Results: There is mild concentric left ventricular hypertrophy. Overall left ventricular systolic function is low-normal with, an EF between 50-55 % Treatment: Lasix 40 MG PO Daily Zestril 10 MG PO Daily Aldactone 12.5 PO Daily Toprol XL 25 MG PO Daily In your professional opinion, can you please clarify the [acuity and type] of CHF if known? [ ] Chronic Diastolic Heart Failure [ ] Other, please specify [ ] Unable to determine (Template Last Revised: September 2020) MTDD
--- NOTE | 2021-01-24 12:57 | P.PN ---
Subjective Progress Note Date: 01/24/21 Principal diagnosis: Symptomatic anemia Patient is seen and examined lying in bed. She denies any signs or symptoms of GI bleed. States she has been discharged and will be going home today. She was admitted for urinary tract infection states she does not have any abdominal pain nausea or vomiting. Does have some back pain. Objective - Vital Signs Vital signs: Vital Signs Temp 98.0 F 01/24/21 07:14 Pulse 72 01/24/21 09:36 Resp 16 01/24/21 07:14 BP 132/65 01/24/21 07:14 Pulse Ox 97 01/24/21 07:14 Intake & Output 01/23/21 01/24/21 01/24/21 18:59 06:59 18:59 Other: Voiding Method Bedside Commode Bedside Commode Bedside Commode # Voids 4 1 # Bowel Movements 1 - Exam General appearance: The patient is alert, oriented, appears in no acute distress. HET: Head is normocephalic and atraumatic. Conjunctiva pink. Sclera anicteric. Neck: Supple without lymphadenopathy. Abdomen: Soft, nontender, nondistended with bowel sounds. No guarding or rigidity. Extremities: Normal skin color and turgor. No pedal edema Skin: No rashes, no jaundice Neurological: No focal deficits. Alert and oriented 3. - Labs CBC & Chem 7: 01/23/21 06:35 01/24/21 08:39 Labs: Abnormal Lab Results - Last 24 Hours (Table) 01/23/21 01/23/21 01/23/21 Range/Units 06:35 11:21 16:35 WBC 12.83 H (4.50-10.00) X 10*3/uL RBC 2.37 L (4.10-5.20) X 10*6/uL Hgb 7.1 L (12.0-15.0) g/dL Hct 23.7 L (37.2-46.3) % MCV 100.0 H (80.0-97.0) fL MCHC 30.0 L (32.0-37.0) g/dL RDW 17.2 H (11.5-14.5) % MPV 8.8 L (9.5-12.2) fL POC Glucose (mg/dL) 176 H 122 H (75-99) mg/dL 01/23/21 01/24/21 Range/Units 20:20 07:00 WBC (4.50-10.00) X 10*3/uL RBC (4.10-5.20) X 10*6/uL Hgb (12.0-15.0) g/dL Hct (37.2-46.3) % MCV (80.0-97.0) fL MCHC (32.0-37.0) g/dL RDW (11.5-14.5) % MPV (9.5-12.2) fL POC Glucose (mg/dL) 161 H 153 H (75-99) mg/dL Microbiology - Last 24 Hours (Table) 01/21/21 22:27 Blood Culture - Preliminary Blood No Growth after 48 hours 01/21/21 22:11 Urine Culture - Final Urine,Voided Pseudomonas aeruginosa Assessment and Plan (1) Symptomatic anemia Narrative/Plan: 70-year-old female with multiple medical comorbidities currently being hospitalized for urinary tract infection and left lower. Cellulitis. Patient has had multiple endoscopic evaluations with EGD, push enteroscopy's and colonoscopies within the past 2 years with findings of duodenal ulcer, gastric and small bowel angiectasia as well as a cecal AVM treated with coagulation therapy. Last EGD in 11/07 significant for friable duodenal ulcer with gastric antral ectasias both treated with coagulation therapy. On last admission in 01/07 patient underwent video capsule endoscopy with multiple nonbleeding angiectasia was noted in the small bowel. Currently denying any signs or symptoms of GI bleeding. She has required iron supplementation in the past and infusions but has not had one in a while as per her report. Current Visit: Yes Status: Acute Code(s): D64.9 - ANEMIA, UNSPECIFIED SNOMED Code(s): 178870777 (2) Cellulitis of left lower extremity Current Visit: Yes Status: Acute Code(s): L03.116 - CELLULITIS OF LEFT LOWER LIMB SNOMED Code(s): 118022211 (3) Urinary tract infection Current Visit: Yes Status: Acute Code(s): N39.0 - URINARY TRACT INFECTION, SITE NOT SPECIFIED SNOMED Code(s): 29390546 (4) AVM (arteriovenous malformation) of small bowel, acquired Current Visit: No Status: Acute Code(s): K55.20 - ANGIODYSPLASIA OF COLON WITHOUT HEMORRHAGE SNOMED Code(s): 5166571724815 Plan: Supportive care Okay for diet as tolerated Continue to monitor for signs or symptoms of GI bleed IV iron supplementation ordered Continue to monitor stool output Continue broad-spectrum antibiotic therapy as per the primary team No plans for endoscopic evaluation at this time, we'll continue to monitor and reevaluate if any signs or symptoms of GI bleeding occurs or there is a precipitous fall in her hemoglobin Thank you for allowing us to participate in the care of the patient Dr. King I agree with the dictator's note, documented as a scribe by Cammie Monreal.
--- NOTE | 2021-01-24 13:04 | PN ---
PROGRESS NOTE DATE OF SERVICE: 01/24/2021 REASON FOR FOLLOWUP: Pseudomonas UTI and left leg cellulitis. INTERVAL HISTORY: The patient is afebrile. The patient is feeling, better breathing comfortably. The patient denies having any chest pain. No shortness of breath, cough, no abdominal pain or pain to the left lower extremity. PHYSICAL EXAMINATION: Blood pressure 132/65, pulse of 67, temperature 98. She is 96% on 3 L nasal cannula. General description is an elderly female lying in bed in no distress. Respiratory system: Unlabored breathing. Clear to auscultation anteriorly. Heart S1, S2. Regular rate and rhythm. Abdomen soft, no tenderness. Left leg swelling and redness has resolved. LABS: BUN of 13, creatinine 0.83. Urine is Pseudomonas. Blood culture negative. DIAGNOSTIC IMPRESSION AND PLAN: 1. Patient with acute left lower extremity cellulitis. Overall improvement on vanco to finish a short course of oral doxycycline. 2. Patient with Pseudomonas urinary tract infection. Short course of oral Ceftin on discharge and close outpatient followup. MMODL / IJN: [id number] /
[2021-01-24 13:09] VITALS: PULSE 84
== END 2021-01-24 13:51 | disposition home health service (06) | DRG 603 ==
LOC: EC 21:03 → 4SSUR 01-22 00:43
PROVIDERS: ADMIT Internal Medicine; ATTEND Internal Medicine
PROC: 30233N1 Transfusion of Nonautologous Red Blood Cells into Peripheral Vein, Percutaneous Approach (ICD-10-PCS; principal; 2021-01-21)
DX: L03.116 Cellulitis of left lower limb (principal); N39.0 Urinary tract infection, site not specified; I50.32 Chronic diastolic (congestive) heart failure; J96.11 Chronic respiratory failure with hypoxia; I11.0 Hypertensive heart disease with heart failure; E11.9 Type 2 diabetes mellitus without complications; B96.5 Pseudomonas (aeruginosa) (mallei) (pseudomallei) as the cause of diseases classified elsewhere; J44.9 Chronic obstructive pulmonary disease, unspecified; Z20.822 Contact with and (suspected) exposure to COVID-19; M51.36 Other intervertebral disc degeneration, lumbar region; E03.9 Hypothyroidism, unspecified; D64.9 Anemia, unspecified; G89.29 Other chronic pain; M54.5 Low back pain; E78.5 Hyperlipidemia, unspecified; K31.819 Angiodysplasia of stomach and duodenum without bleeding; K26.7 Chronic duodenal ulcer without hemorrhage or perforation; K57.30 Diverticulosis of large intestine without perforation or abscess without bleeding; F32.9 Major depressive disorder, single episode, unspecified; F41.9 Anxiety disorder, unspecified; I83.90 Asymptomatic varicose veins of unspecified lower extremity; H40.9 Unspecified glaucoma; M19.90 Unspecified osteoarthritis, unspecified site; E66.9 Obesity, unspecified; Z68.30 Body mass index [BMI] 30.0-30.9, adult; Z99.81 Dependence on supplemental oxygen; Z79.890 Hormone replacement therapy; Z79.84 Long term (current) use of oral hypoglycemic drugs; Z79.51 Long term (current) use of inhaled steroids; Z79.899 Other long term (current) drug therapy; Z90.49 Acquired absence of other specified parts of digestive tract; Z98.51 Tubal ligation status; Z87.39 Personal history of other diseases of the musculoskeletal system and connective tissue; Z87.440 Personal history of urinary (tract) infections; Z85.828 Personal history of other malignant neoplasm of skin; Z87.891 Personal history of nicotine dependence; Z91.81 History of falling; Z87.442 Personal history of urinary calculi; Z87.2 Personal history of diseases of the skin and subcutaneous tissue; Z98.890 Other specified postprocedural states; Z88.1 Allergy status to other antibiotic agents; Z91.040 Latex allergy status; Z88.5 Allergy status to narcotic agent; Z88.0 Allergy status to penicillin; Z91.048 Other nonmedicinal substance allergy status; Z82.5 Family history of asthma and other chronic lower respiratory diseases; Z80.8 Family history of malignant neoplasm of other organs or systems; Z82.49 Family history of ischemic heart disease and other diseases of the circulatory system
CPT/HCPCS: 36415; 76770; 80048; 80053; 81001; 82728; 83036; 83540; 83550; 83605; 83735; 84466; 85025; 85027; 86850; 86900; 86901; 86920; 87040; 87077; 87086; 87186; 87635; 94640; 96360; 99285

== ENCOUNTER 2021-02-10 | Inpatient (IN) | payer MEDICARE, OTHER | END 2021-02-23 17:15 | disposition home health service (06) | DRG 981 | PROVIDERS: ADMIT Internal Medicine | PROC: 30233N1 Transfusion of Nonautologous Red Blood Cells into Peripheral Vein, Percutaneous Approach (ICD-10-PCS; 2021-02-10) | PROC: 02HV33Z Insertion of Infusion Device into Superior Vena Cava, Percutaneous Approach (ICD-10-PCS; 2021-02-14) | PROC: 0D1M0Z4 Bypass Descending Colon to Cutaneous, Open Approach (ICD-10-PCS; principal; 2021-02-18) | CPT/HCPCS: 36415; 36573; 71045; 72192; 80048; 80053; 80202; 81001; 82043; 82565; 82570; 83036; 83605; 83690; 83735; 84100; 85025; 85027; 85610; 86140; 86850; 86900; 86901; 86920; 87040; 87070; 87075; 87077; 87086; 87186; 87205; 87324; 87635; 93005; 93306; 94640; 94760; 96360; 99214; 99284 ==

== ENCOUNTER → 2021-03-16 | Outpatient (CLI) | payer MEDICARE, OTHER ==
--- NOTE | 2021-03-18 10:33 | CT ---
EXAMINATION TYPE: CT Cystogram DATE OF EXAM: 03/16/2021 COMPARISON: CT abdomen same date INDICATION: Vesicointestinal fistula DLP: [id number] mGycm, Automated exposure control for dose reduction was used. CONTRAST: 0 mL of Isovue 300 reported. Contrast was administered for the CT abdomen study performed. Study performed with Oral Contrast TECHNIQUE: Axial images were obtained from above the iliac crest to the pubic rami in the axial plane at 5 mm thick sections. Reconstructed images are reviewed on the computer in the coronal plane. FINDINGS: CT PELVIS: The suspected left psoas muscle abscess is less distinct on the CT pelvis exam. There is fullness to the psoas muscle however. Please also see CT abdomen report same date. This extends towards the ingui nal region. Discrete collection on this phase of the examination is not identified. Loops of bowel within the abdomen and pelvis are normal. There are loops of bowel which are incom pletely distended or lack oral contrast limiting their evaluation. Appendix: Normal as visualized. Urinary bladder: Urinary bladder is decompressed with a catheter. No free air is identified within th e urinary bladder. A suspicious adjacent abscess is not identified. However, there is prominent thick ened bowel wall superior to the urinary bladder. Diverticular changes are adjacent to the sigmoid col on and urinary bladder. No free air within the pelvis is identified. The sigmoid stump martin may be t hickened. Retrograde cystogram in the CT unit was performed. There is contrast within the urinary bladder. Air is present within the urinary bladder. The contrast within the sigmoid colon has increased over the i nterval compatible with a colovesical fistula. This likely resides just superior and left of the urin demi bladder. Example image series 5 image 26. The direct communication however is not documented with contrast from the urinary bladder to the intestine. Coronal and sagittal plane imaging is reviewed. Genitourinary structures: Uterus appears normal. Adnexal regions appear clear. Osseous structures: No suspicious lytic or sclerotic lesions. Advanced degenerative changes are at th e right hip with subchondral cyst formation and loss of the joint space. Moderate joint space narrowi ng is present at the left hip. Degenerative disc changes are through the lumbar spine. IMPRESSIONS: 1. Suspected intrapelvic left psoas muscle abscess, better visualized although incompletely evaluate d, on the CT abdomen study. This likely extends towards the inguinal region with slightly prominent m usculature on the left. This likely terminates at the inguinal region. Abscess formation was evident on 02/10/2021 through this region and is significantly smaller over the interval. 2. 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 The fistula itself is not documented with contrast although contrast incr eased within the sigmoid colon is readily apparent.
--- NOTE | 2021-03-21 08:22 | CT ---
EXAMINATION TYPE: CT abdomen w con DATE OF EXAM: 03/16/2021 COMPARISON: 04/25/2020 INDICATION: Cutaneuous abscess of abdominal wall. Vesicointestinal fistula. DLP: 1244.90 mGycm, Automated exposure control for dose reduction was used. CONTRAST: 100 mL of Isovue 300. Study performed without Oral Contrast TECHNIQUE: Axial images were obtained from above the diaphragm to the pubic rami in the axial plane a t 5 mm thick sections. Reconstructed images are reviewed on the computer in the coronal plane. FINDINGS: Limited CT sections are obtained the lung bases. The lung bases are clear. CT ABDOMEN: Liver: Normal Spleen: Normal Pancreas: Normal Adrenal glands: The adrenal glands are normal. Gallbladder: Surgically absent Kidneys: No masses are evident. No hydronephrosis is present. Tiny cortical renal cysts on the left kidney. Delayed images were obtained through the kidneys, which remain unremarkable. Aorta: Vascular calcification is within the aorta. Inferior vena cava: Normal. There is an ostomy in the left lower quadrant. Within the [id number] A psoas abscess appears to be present with a low density collection measuring 2.4 x 1.[address] cystogram for a dditional evaluation. There are loops of bowel which are incompletely distended or lack oral contrast limiting their evaluation. IMPRESSIONS: 1. A posterior lateral abscess within the left psoas muscle is suspected. This extends out of the fi eld of view. Please see CT cystogram for additional evaluation. 2. CT abdomen portion of the exam appears normal.
== END | disposition home or self-care (01) ==
LOC: RADCTMAIN 17:40
PROVIDERS: ATTEND Urology
DX: N32.1 Vesicointestinal fistula (principal); K65.1 Peritoneal abscess
CPT/HCPCS: 82565; 84520; 72192; 74160; 36415; Q9967

== ENCOUNTER 2021-05-03 20:46 | Inpatient (IN) | payer MEDICARE, OTHER ==
--- NOTE | 2021-05-03 21:32 | ED ---
Recheck HPI - General Chief Complaint: Recheck/Abnormal Lab/Rx Stated Complaint: Abn Labs Time Seen by Provider: 05/03/21 20:58 Source: patient Mode of arrival: wheelchair Limitations: no limitations - History of Present Illness Initial Comments: 70 year-old female patient presents to the emergency department for recheck of labs. She was called by her physician and informed that her potassium level was over 7 and she needed to come into the emergency department. She states that she has been feeling generally "sick" today. Cannot pinpoint specific symptoms but state she just feels sick. She reports lower abdominal pain and tenderness. States the pain started today. She denies fever or chills. Denies nausea or vomiting. She does have a colostomy. Denies any changes to the stool. Denies taking a potassium supplement. Denies use of salt substitute. Patient denies any recent rash, cough, shortness of breath, chest pain, back pain, numbness, tingling, dizziness, weakness, hematuria, dysuria, urinary urgency, urinary frequency, headache, visual changes, or any other complaints. - Related Data Home Medications Medication Instructions Recorded Confirmed Zafirlukast [Accolate] 20 mg PO BID 02/06/14 05/03/21 ARIPiprazole [Abilify] 5 mg PO HS 02/07/18 05/03/21 metFORMIN HCL [Glucophage] 1,000 mg PO BID-W/MEALS 02/07/18 05/03/21 Cholecalciferol [Vitamin D3 (25 1,000 unit PO DAILY 09/03/19 05/03/21 Mcg = 1000 Iu)] Levothyroxine Sodium [Synthroid] 200 mcg PO DAILY 09/03/19 05/03/21 Albuterol Sulfate [Ventolin HFA] 1 - 2 puff INHALATION RT-Q6H PRN 03/11/20 05/03/21 Escitalopram [Lexapro] 20 mg PO DAILY 03/11/20 05/03/21 Furosemide [Lasix] 40 mg PO DAILY 04/27/20 05/03/21 traZODone HCL 100 mg PO HS PRN 05/15/20 05/03/21 Magnesium Oxide [Mag-Ox] 400 mg PO DAILY 01/21/21 05/03/21 Lidocaine 5% Patch [Lidoderm 5% 1 patch TRANSDERM Q12H PRN 05/03/21 05/03/21 Patch] Lisinopril [Zestril] 10 mg PO DAILY 05/03/21 05/03/21 Oxybutynin Xl [Ditropan XL] 5 mg PO TID 05/03/21 05/03/21 Sulfamethox-Tmp 800-160Mg [Bactrim 1 tab PO Q12H 05/03/21 05/03/21 DS 800-160 mg] Previous Rx's Medication Instructions Recorded Atorvastatin [Lipitor] 40 mg PO DAILY #30 tab 09/10/18 Budesonide [Pulmicort] 1 mg INHALATION RT-BID ml 03/27/20 Formoterol Fumarate [Perforomist] 20 mcg INHALATION RT-BID nebu 03/27/20 HYDROcodone/APAP 7.5-325MG [[place] 1 tab PO Q6H PRN #12 tab 03/27/20 7.5-325] Ipratropium-Albuterol Nebulize 3 ml INHALATION RT-Q2H PRN ml 03/27/20 [Duoneb 0.5 mg-3 mg/3 ml Soln] Pantoprazole Sodium [Protonix] 40 mg PO BID #60 tablet. 03/27/20 Spironolactone [Aldactone] 12.5 mg PO DAILY #30 tab 12/27/20 Metoprolol Succinate (ER) [Toprol 50 mg PO DAILY #30 tab 02/23/21 Xl] Allergies Allergy/AdvReac Type Severity Reaction Status Date / Time adhesive Allergy Rash/Hives Verified 05/03/21 22:08 ciprofloxacin [From Cipro] Allergy Rash/Hives Verified 05/03/21 22:08 ciprofloxacin HCl Allergy Rash/Hives Verified 05/03/21 22:08 [From Cipro] latex Allergy Rash/Hives Verified 05/03/21 22:08 levofloxacin [From Levaquin] Allergy Rash/Hives Verified 05/03/21 22:08 nitrofurantoin Allergy Rash/Hives Verified 05/03/21 22:08 [From Macrobid] nitrofurantoin Allergy Rash/Hives Verified 05/03/21 22:08 macrocrystalline [From Macrobid] Penicillins Allergy Rash/Hives Verified 05/03/21 22:08 propoxyphene HCl Allergy Rash/Hives Verified 05/03/21 22:08 [From Darvon] propoxyphene napsylate Allergy Unknown Verified 05/03/21 22:08 [From Darvocet-N] Review of Systems ROS Statement: Those systems with pertinent positive or pertinent negative responses have been documented in the HPI. ROS Other: All systems not noted in ROS Statement are negative. Past Medical History Past Medical History: Asthma, Chest Pain / Angina, COPD, Diabetes Mellitus, Hyperlipidemia, Hypertension, Osteoarthritis (OA), Respiratory Disorder, Skin Disorder, Thyroid Disorder Additional Past Medical History / Comment(s): Obesity (BMI 35) COPD, asthma, diabetes , depression, 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 The patient is also a recently quit smoker. The patient has chronic back pain. History of Any Multi-Drug Resistant Organisms: VRE Date of last positivie culture/infection: 02/18/21 MDRO Source:: Peritoneal Fluid-Abdominal Past Surgical History: Appendectomy, Bowel Resection, Section, Cholecystectomy, Orthopedic Surgery, Tubal Ligation Additional Past Surgical History / Comment(s): LASER SX JETHRO EYES FOR GLAUCOMA. RT KNEE ARTHROSCOPY. UNDERWENT PERCUTANEOUS NEPHROSTOLITHOTOMY, colostomy Past Anesthesia/Blood Transfusion Reactions: No Reported Reaction Past Psychological History: Anxiety, Depression Smoking Status: Former smoker Past Alcohol Use History: None Reported Past Drug Use History: None Reported - Past Family History Mother Additional Family Medical History / Comment(s): emphysema, heart valve problems, in her slepp. Brother(s) Family Medical History: Cancer Additional Family Medical History / Comment(s): from oral cancer Father Brother(s) Family Medical History: Cancer Additional Family Medical History / Comment(s): heart disease General Exam Limitations: no limitations General appearance: alert, in no apparent distress, other (This is a well- developed, well-nourished elderly female patient in no acute distress. Vital signs upon presentation temperature 97.9F, pulse 66, respirations 18, blood pressure 105/54, pulse ox 95% on room air.) ENT exam: Present: normal exam, normal oropharynx, mucous membranes moist Respiratory exam: Present: normal lung sounds bilaterally. Absent: respiratory distress, wheezes, rales, rhonchi, stridor Cardiovascular Exam: Present: regular rate, normal rhythm, normal heart sounds. Absent: systolic murmur, diastolic murmur, rubs, gallop, clicks GI/Abdominal exam: Present: soft, tenderness (Lower abdominal), normal bowel sounds. Absent: distended, guarding, rebound, rigid Neurological exam: Present: alert, oriented X3, CN II-XII intact Psychiatric exam: Present: normal affect, normal mood Skin exam: Present: warm, dry, intact, normal color. Absent: rash Course Vital Signs 05/03/21 20:47 Temperature 97.9 F Pulse Rate 66 Respiratory 18 Rate Blood Pressure 105/54 O2 Sat by Pulse 95 Oximetry Medical Decision Making - Medical Decision Making 70-year-old female patient presented to the emergency department today for evaluation of abnormal labs. Was called by her physician and informed that her potassium level is low. Physical examination is unremarkable. Patient also reported lower abdominal pain. Labs reviewed and did reveal elevated white blood cell count at 12.6, hemoglobin 7.4, potassium 7.2, sodium 138. BUN 54, c reatinine 1.87. She was given insulin, dextrose, calcium gluconate, Lasix, albuterol inhalation, Kayexalate for hyperkalemia. I did contact Dr. Saldivar nephrology who recommended potassium level every 2 hours, bladder scan, and kidney ultrasound in the morning. She'll be admitted to ICU for further evaluation and monitoring. Case discussed with my attending Dr. Lama. - Lab Data Result diagrams: 05/03/21 21:44 05/03/21 21:44 Lab Results 05/03/21 05/03/21 05/03/21 Range/Units 21:44 21:44 21:44 WBC 12.6 H (3.8-10.6) k/uL RBC 2.41 L (3.80-5.40) m/uL Hgb 7.4 L (11.4-16.0) gm/dL Hct 23.7 L (34.0-46.0) % MCV 98.2 (80.0-100.0) fL MCH 30.7 (25.0-35.0) pg MCHC 31.3 (31.0-37.0) g/dL RDW 13.5 (11.5-15.5) % Plt Count 487 H (150-450) k/uL MPV 6.8 Neutrophils % 83 % Lymphocytes % 9 % Monocytes % 4 % Eosinophils % 2 % Basophils % 0 % Neutrophils # 10.5 H (1.3-7.7) k/uL Lymphocytes # 1.2 (1.0-4.8) k/uL Monocytes # 0.5 (0-1.0) k/uL Eosinophils # 0.3 (0-0.7) k/uL Basophils # 0.0 (0-0.2) k/uL Hypochromasia Slight Sodium 130 L (137-145) mmol/L Potassium 7.2 H* (3.5-5.1) mmol/L Chloride 101 (98-107) mmol/L Carbon Dioxide 23 (22-30) mmol/L Anion Gap 6 mmol/L BUN 54 H (7-17) mg/dL Creatinine 1.87 H (0.52-1.04) mg/dL Est GFR (CKD-EPI)AfAm 31 (>60 ml/min/1.73 sqM) Est GFR (CKD-EPI)NonAf 27 (>60 ml/min/1.73 sqM) Glucose 131 H (74-99) mg/dL POC Glucose (mg/dL) (75-99) mg/dL POC Glu Copy Writer ID Plasma Lactic Acid Ravi 1.0 (0.7-2.0) mmol/L Calcium 9.8 (8.4-10.2) mg/dL Magnesium 1.8 (1.6-2.3) mg/dL Total Bilirubin 0.4 (0.2-1.3) mg/dL AST 28 (14-36) U/L ALT 33 (4-34) U/L Alkaline Phosphatase 184 H (38-126) U/L Total Protein 6.1 L (6.3-8.2) g/dL Albumin 3.0 L (3.5-5.0) g/dL Lipase 173 (23-300) U/L 05/03/21 Range/Units 23:02 WBC (3.8-10.6) k/uL RBC (3.80-5.40) m/uL Hgb (11.4-16.0) gm/dL Hct (34.0-46.0) % MCV (80.0-100.0) fL MCH (25.0-35.0) pg MCHC (31.0-37.0) g/dL RDW (11.5-15.5) % Plt Count (150-450) k/uL MPV Neutrophils % % Lymphocytes % % Monocytes % % Eosinophils % % Basophils % % Neutrophils # (1.3-7.7) k/uL Lymphocytes # (1.0-4.8) k/uL Monocytes # (0-1.0) k/uL Eosinophils # (0-0.7) k/uL Basophils # (0-0.2) k/uL Hypochromasia Sodium (137-145) mmol/L Potassium (3.5-5.1) mmol/L Chloride (98-107) mmol/L Carbon Dioxide (22-30) mmol/L Anion Gap mmol/L BUN (7-17) mg/dL Creatinine (0.52-1.04) mg/dL Est GFR (CKD-EPI)AfAm (>60 ml/min/1.73 sqM) Est GFR (CKD-EPI)NonAf (>60 ml/min/1.73 sqM) Glucose (74-99) mg/dL POC Glucose (mg/dL) 131 H (75-99) mg/dL POC Glu Copy Writer ID Tanisha Donohue Plasma Lactic Acid Ravi (0.7-2.0) mmol/L Calcium (8.4-10.2) mg/dL Magnesium (1.6-2.3) mg/dL Total Bilirubin (0.2-1.3) mg/dL AST (14-36) U/L ALT (4-34) U/L Alkaline Phosphatase (38-126) U/L Total Protein (6.3-8.2) g/dL Albumin (3.5-5.0) g/dL Lipase (23-300) U/L - EKG Data -: EKG Interpreted by Ne EKG Comments: EKG obtained at 2102 shows normal sinus rhythm with a ventricular rate of 66, KS interval 196, QRS duration 88, QT 404, QTC 423. No evidence of ST elevation or depression. - Radiology Data Radiology results: report reviewed, image reviewed CT abdomen and pelvis without contrast was obtained. Report is reviewed in its entirety. Impression by Dr. Gonzales shows some atelectasis left posterior lung base that is new compared to old exam. Complex mass on the left iliac muscle and saw last muscle consistent with an abscess that is partly visualized on the computed tomography scan. This appears increase slightly compared to old exam. There is descending colon colostomy noted. There are sigmoid diverticula. Disposition Clinical Impression: Hyperkalemia, Acute kidney injury Disposition: ADMITTED IP TO THIS HOSP Condition: Serious Decision to Admit Reason: Admit from EC Decision Date: 05/04/21
[2021-05-03 21:58] LABS: Basophils % (A) 0 %; Eosinophils # (A) 0.3 k/uL (0-0.7); Eosinophils % (A) 2 %; HCT 23.7 % (34.0-46.0); HGB 7.4 gm/dL (11.4-16.0); Hypochromasia Slight; Lymphocytes # (A) 1.2 k/uL (1.0-4.8); Lymphocytes % (A) 9 %; MCH 30.7 pg (25.0-35.0); MCHC 31.3 g/dL (31.0-37.0); MCV 98.2 fL (80.0-100.0); Mean Platelet Volume 6.8; Monocytes # (A) 0.5 k/uL (0-1.0); Monocytes % (A) 4 %; Neutrophils # (A) 10.5 k/uL (1.3-7.7); Neutrophils % (A) 83 %; Platelet Count 487 k/uL (150-450); RBC 2.41 m/uL (3.80-5.40); RDW 13.5 % (11.5-15.5); WBC 12.6 k/uL (3.8-10.6)
[2021-05-03 22:14] LABS: Calcium 9.8 mg/dL (8.4-10.2); Magnesium 1.8 mg/dL (1.6-2.3); Total Bilirubin 0.4 mg/dL (0.2-1.3); Total Protein 6.1 g/dL (6.3-8.2)
[2021-05-03 22:35] LABS: Potassium 7.2 mmol/L (3.5-5.1)
[2021-05-03] MEDS ORDERED: DEXTROSE 50% SYRINGE 50 ML IVP STA (22:39)
[2021-05-03] MEDS ORDERED: INSULIN REGULAR 100 UNIT/ML VIAL (IV) IV STA (22:39)
[2021-05-03] MEDS ORDERED: SODIUM CHLORIDE 0.9% 1,000 ML IV ONE (22:41)
[2021-05-03] MEDS ORDERED: FUROSEMIDE 10 MG/ML 10 ML VIAL IV STA (22:51)
[2021-05-03] MEDS ORDERED: SODIUM BICARB 8.4% 50 ML SYR (1 MEQ/ML) IV STA (22:51)
[2021-05-03] MEDS ORDERED: SODIUM POLYSTYRENE SULFONATE 15 GM/60 ML BOTTLE PO STA (22:51)
[2021-05-03] MEDS ORDERED: CALCIUM GLUCONATE 1 GM in SODIUM CHLORIDE 0.9% 100 ML IVPB ONE (23:00)
[2021-05-04] MEDS ORDERED: ALBUTEROL SULFATE 5 MG/ML INHALATION SCH
--- NOTE | 2021-05-04 01:27 | CT ---
EXAMINATION TYPE: CT abdomen pelvis wo con DATE OF EXAM: 05/03/2021 COMPARISON: 03/16/2021 HISTORY: Abdominal pain CT DLP: mGycm Automated exposure control for dose reduction was used. Images obtained from the diaphragm to the floor the pelvis with no contrast. There is some mild atelectasis at the left lung base. Heart is borderline enlarged. There is no peric ardial effusion. There is no significant pleural fluid. There are clips from cholecystectomy. Liver s pleen stomach pancreas appear intact. The bile ducts are not dilated. There is no adrenal mass. Kidneys have normal size. There is no hydronephrosis. There is 2 mm calculu s posterior left kidney. There is no retroperitoneal adenopathy. Bladder is almost empty. There is no free fluid in the pelvis. There is no inguinal hernia. There is mixed density mass along the left psoas muscle with air bubbles. This measures 5.5 x 2.5 cm. There are sigmoid diverticula. There is colostomy in the left mid abdomen. There is termination of t he sigmoid colon between the descending colon and sigmoid colon. There is no evidence of a bowel obst ruction. There is no sign of pneumoperitoneum. The lumbar vertebra have normal alignment. There is degenerative disc space narrowing from L2 to L5. There is no compression fracture. The bony pelvis is intact. Hip joints are anatomic. There is modera tely severe osteoarthritis in the right hip joint. IMPRESSION: There is some atelectasis left posterior lung base that is new compared to old exam. Complex mass along the left iliac muscle and psoas muscle consistent with an abscess that is partly v isualized on the old CT scan. This appears increased slightly compared to old exam. There is a descen ding colon colostomy noted. There are sigmoid diverticula.
[2021-05-04 01:28] LABS: Glucose,Whole Blood 131 mg/dL (75-99)
[2021-05-04 01:28] LABS: Glucose,Whole Blood 111 mg/dL (75-99)
[2021-05-04] MEDS ORDERED: NALOXONE 0.4 MG/ML 1 ML VIAL IV PRN (02:19)
[2021-05-04 02:33] LABS: Basophils % (A) 0 %; Eosinophils # (A) 0.2 k/uL (0-0.7); Eosinophils % (A) 1 %; HCT 23.2 % (34.0-46.0); HGB 7.1 gm/dL (11.4-16.0); Hypochromasia Moderate; Lymphocytes # (A) 1.1 k/uL (1.0-4.8); Lymphocytes % (A) 7 %; MCH 30.6 pg (25.0-35.0); MCHC 30.8 g/dL (31.0-37.0); MCV 99.4 fL (80.0-100.0); Mean Platelet Volume 6.6; Monocytes % (A) 6 %; Neutrophils # (A) 13.3 k/uL (1.3-7.7); Neutrophils % (A) 84 %; Platelet Count 433 k/uL (150-450); RBC 2.33 m/uL (3.80-5.40); RDW 13.6 % (11.5-15.5); WBC 15.9 k/uL (3.8-10.6)
[2021-05-04] MEDS ORDERED: IPRATROPIUM-ALBUTEROL 3 ML NEB INHALATION PRN (02:35)
[2021-05-04] MEDS ORDERED: VANCOMYCIN IV PER PHARMACY 1 EACH MISC MISCELLANE PRN (02:36)
[2021-05-04] MEDS ORDERED: metroNIDAZOLE-NS PMX 500 MG in SALINE 1 100ML.BAG IVPB SCH (02:45)
[2021-05-04 03:06] LABS: Albumin 2.8 g/dL (3.5-5.0); Total Bilirubin 0.4 mg/dL (0.2-1.3); Total Protein 5.7 g/dL (6.3-8.2)
--- NOTE | 2021-05-04 03:14 | P.HPIM ---
History of Present Illness H&P Date: 05/03/21 Chief Complaint: abnormal labs 70-year-old female with complex past medical history Patient comes in upon recommendations from her doctor's office due to abnormal labs recommending that she comes to the ED to repeat testing due to elevated potassium Patient reports generalized weakness and some lower abdominal discomfort today she is not sure of fever but reports some chills. She is also having some increased hip pain .She denies any GI bleeding, she denies any urinary changes. Denies any chest pain or trouble breathing. She is currently on Bactrim for recent UTI. She was found to have elevated potassium at 7.2 this was confirmed p by retesting. EKG showed no acute changes Patient was recently discharged from the hospital couple months ago when she was diagnosed with rectovesical fistula requiring diverging colostomy she was also given antibiotics at that time for possible psoas abscess Imaging in the ED showed computed tomography scan of the abdomen and pelvis suggested increase in size of left psoas abscess with air bubbles. Blood work showed elevated potassium, worsening renal function, low hemoglobin which is chronic due to recurrent GI bleeding. Patient was given treatment for hyperkalemia in the ED and was admitted to the ICU for close monitoring nephrology is on the case Covid testing was negative, patient is not vaccinated for Covid Review of Systems Pertinent positives as noted in HPI. All other systems were reviewed and are negative Past Medical History Past Medical History: Asthma, Chest Pain / Angina, COPD, Diabetes Mellitus, Hyperlipidemia, Hypertension, Osteoarthritis (OA), Respiratory Disorder, Skin Disorder, Thyroid Disorder Additional Past Medical History / Comment(s): Obesity (BMI 35) COPD, asthma, diabetes , depression, 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 The patient is also a recently quit smoker. The patient has chronic back pain. History of Any Multi-Drug Resistant Organisms: VRE Date of last positivie culture/infection: 02/18/21 MDRO Source:: Peritoneal Fluid-Abdominal Past Surgical History: Appendectomy, Bowel Resection, Section, Cholecystectomy, Orthopedic Surgery, Tubal Ligation Additional Past Surgical History / Comment(s): LASER SX JETHRO EYES FOR GLAUCOMA. RT KNEE ARTHROSCOPY. UNDERWENT PERCUTANEOUS NEPHROSTOLITHOTOMY, colostomy Past Anesthesia/Blood Transfusion Reactions: No Reported Reaction Past Psychological History: Anxiety, Depression Smoking Status: Former smoker Past Alcohol Use History: None Reported Past Drug Use History: None Reported - Past Family History Mother Additional Family Medical History / Comment(s): emphysema, heart valve problems, in her slepp. Brother(s) Family Medical History: Cancer Additional Family Medical History / Comment(s): from oral cancer Father Brother(s) Family Medical History: Cancer Additional Family Medical History / Comment(s): heart disease Medications and Allergies Home Medications Medication Instructions Recorded Confirmed Type Zafirlukast [Accolate] 20 mg PO BID 02/06/14 05/03/21 History ARIPiprazole [Abilify] 5 mg PO HS 02/07/18 05/03/21 History metFORMIN HCL [Glucophage] 1,000 mg PO BID-W/MEALS 02/07/18 05/03/21 History Atorvastatin [Lipitor] 40 mg PO DAILY #30 tab 09/10/18 05/03/21 Rx Cholecalciferol [Vitamin D3 (25 1,000 unit PO DAILY 09/03/19 05/03/21 History Mcg = 1000 Iu)] Levothyroxine Sodium [Synthroid] 200 mcg PO DAILY 09/03/19 05/03/21 History Albuterol Sulfate [Ventolin HFA] 1 - 2 puff INHALATION RT-Q6H PRN 03/11/20 05/03/21 History Escitalopram [Lexapro] 20 mg PO DAILY 03/11/20 05/03/21 History Budesonide [Pulmicort] 1 mg INHALATION RT-BID ml 03/27/20 05/03/21 Rx Formoterol Fumarate [Perforomist] 20 mcg INHALATION RT-BID nebu 03/27/20 05/03/21 Rx HYDROcodone/APAP 7.5-325MG [[place] 1 tab PO Q6H PRN #12 tab 03/27/20 05/03/21 Rx 7.5-325] Ipratropium-Albuterol Nebulize 3 ml INHALATION RT-Q2H PRN ml 03/27/20 05/03/21 Rx [Duoneb 0.5 mg-3 mg/3 ml Soln] Pantoprazole Sodium [Protonix] 40 mg PO BID #60 tablet. 03/27/20 05/03/21 Rx Furosemide [Lasix] 40 mg PO DAILY 04/27/20 05/03/21 History traZODone HCL 100 mg PO HS PRN 05/15/20 05/03/21 History Spironolactone [Aldactone] 12.5 mg PO DAILY #30 tab 12/27/20 05/03/21 Rx Magnesium Oxide [Mag-Ox] 400 mg PO DAILY 01/21/21 05/03/21 History Metoprolol Succinate (ER) [Toprol 50 mg PO DAILY #30 tab 02/23/21 05/03/21 Rx Xl] Lidocaine 5% Patch [Lidoderm 5% 1 patch TRANSDERM Q12H PRN 05/03/21 05/03/21 History Patch] Lisinopril [Zestril] 10 mg PO DAILY 05/03/21 05/03/21 History Oxybutynin Xl [Ditropan XL] 5 mg PO TID 05/03/21 05/03/21 History Sulfamethox-Tmp 800-160Mg [Bactrim 1 tab PO Q12H 05/03/21 05/03/21 History DS 800-160 mg] Allergies Allergy/AdvReac Type Severity Reaction Status Date / Time adhesive Allergy Rash/Hives Verified 05/03/21 22:08 ciprofloxacin [From Cipro] Allergy Rash/Hives Verified 05/03/21 22:08 ciprofloxacin HCl Allergy Rash/Hives Verified 05/03/21 22:08 [From Cipro] latex Allergy Rash/Hives Verified 05/03/21 22:08 levofloxacin [From Levaquin] Allergy Rash/Hives Verified 05/03/21 22:08 nitrofurantoin Allergy Rash/Hives Verified 05/03/21 22:08 [From Macrobid] nitrofurantoin Allergy Rash/Hives Verified 05/03/21 22:08 macrocrystalline [From Macrobid] Penicillins Allergy Rash/Hives Verified 05/03/21 22:08 propoxyphene HCl Allergy Rash/Hives Verified 05/03/21 22:08 [From Darvon] propoxyphene napsylate Allergy Unknown Verified 05/03/21 22:08 [From Darvocet-N] Physical Exam Vitals: Vital Signs Temp Pulse Resp BP Pulse Ox 05/03/21 20:47 97.9 F 66 18 105/54 95 Intake and Output 05/03/21 05/03/21 05/04/21 14:59 22:59 06:59 Other: Weight 64.41 kg Constitutional: No acute distress, conversant, pleasant Eyes: Anicteric sclerae, moist conjunctiva, Pupils equal round reactive to light ENMT: NC/AT Oropharynx clear, no erythema, or exudates Neck: Supple, FROM, no masses, or JVD No carotid bruits No thyromegaly Lungs: Clear to auscultation Clear to percussion Normal respiratory effort, no accessory muscle use Cardiovascular: Heart regular in rate and rhythm, Loud systolic murmurs, no gallops, or rubs No peripheral edema, however chronically left leg is larger than the right leg. Patient Abdominal: Soft, left colostomy unremarkable Nontender, no guarding, rebound or rigidity Abdomen moving with respiration Normoactive bowel sounds No hepatomegaly, No splenomegaly No palpable mass Skin: Normal temperature, tone, texture, turgor No induration No subcutaneous nodules No rash, lesions No ulcers Extremities: No digital cyanosis No clubbing Pedal pulses intact and symmetrical Radial pulses intact and symmetrical No calf tenderness Psychiatric: Alert and oriented to person, place and time Appropriate affect fair judgement Neuro Muscles Strength 3/5 in bilateral lower extremities and 4/5 in bilateral upper extremities Sensation to light touch grossly present throughout Cranial nerves II-XII grossly intact No focal sensory deficits Lymphatics: no palpable cervical or supraclavicular , or inguinal lymph nodes Results CBC & Chem 7: 05/04/21 02:23 05/04/21 02:23 Labs: Abnormal Lab Results - Last 24 Hours (Table) 05/03/21 05/03/21 05/03/21 Range/Units 21:44 21:44 23:02 WBC 12.6 H (3.8-10.6) k/uL RBC 2.41 L (3.80-5.40) m/uL Hgb 7.4 L (11.4-16.0) gm/dL Hct 23.7 L (34.0-46.0) % MCHC (31.0-37.0) g/dL Plt Count 487 H (150-450) k/uL Neutrophils # 10.5 H (1.3-7.7) k/uL Sodium 130 L (137-145) mmol/L Potassium 7.2 H* (3.5-5.1) mmol/L BUN 54 H (7-17) mg/dL Creatinine 1.87 H (0.52-1.04) mg/dL Glucose 131 H (74-99) mg/dL POC Glucose (mg/dL) 131 H (75-99) mg/dL Alkaline Phosphatase 184 H (38-126) U/L Total Protein 6.1 L (6.3-8.2) g/dL Albumin 3.0 L (3.5-5.0) g/dL 05/04/21 05/04/21 05/04/21 Range/Units 01:23 02:23 02:23 WBC 15.9 H (3.8-10.6) k/uL RBC 2.33 L (3.80-5.40) m/uL Hgb 7.1 L (11.4-16.0) gm/dL Hct 23.2 L (34.0-46.0) % MCHC 30.8 L (31.0-37.0) g/dL Plt Count (150-450) k/uL Neutrophils # 13.3 H (1.3-7.7) k/uL Sodium 130 L (137-145) mmol/L Potassium (3.5-5.1) mmol/L BUN (7-17) mg/dL Creatinine (0.52-1.04) mg/dL Glucose (74-99) mg/dL POC Glucose (mg/dL) 111 H (75-99) mg/dL Alkaline Phosphatase (38-126) U/L Total Protein (6.3-8.2) g/dL Albumin (3.5-5.0) g/dL Assessment and Plan Assessment: Increase in size of left psoas abscess compared to 3 months ago with worsening leukocytosis Follow-up cultures IR consulted for drainage Patient started on vancomycin and meropenem due to multiple ALLERGIES and history of ESBL gram-negative infection IV fluid hydration with normal saline Consider ID consultation Tylenol for fever Supportive care Hyperkalemia and acute kidney injury Hyponatremia Hold nephrotoxic meds Hold spironolactone and lisinopril Nephrology on the case Patient given potassium lowering cocktails, follow up on potassium level Monitor urine output Cardiac monitoring Chronic anemia secondary to recurrent GI bleeding Currently patient denies any GI bleeding Continue to monitor hemoglobin closely Chronic conditions Hypertension, resume metoprolol currently controlled Hypothyroid, resume levothyroxine Diabetes mellitus, insulin sliding scale COPD with chronic hypoxic respiratory failure on 3 L oxygen resume supplemental oxygen and inhalers Depression resume antidepressants Preformed a thorough record review from recent hospitalization around January and February of this year as summarized in HPI CODE STATUS: Full code DVT prophylaxis: Mechanical due to low hemoglobin and possible recurrent GI bleeding Discussed with: Patient, ER, RN Anticipated length of stay more than [address]: Pending clinical course A total of 70 minutes was spent on the care of this complex patient more than 50% of the time was spent in counseling and care coordination.
[2021-05-04] MEDS ORDERED: MEROPENEM 500 MG in SODIUM CHLORIDE 0.9% 100 ML IVPB SCH ×4 (04:00)
[2021-05-04] MEDS: HYDROcodone/APAP 7.5-325MG 1 EACH TAB PO PRN ×2 (04:31→21:50)
[2021-05-04] MEDS: SODIUM CHLORIDE 0.9% 1,000 ML IV SCH ×2 (04:33→21:20)
[2021-05-04] MEDS ORDERED: DEXTROSE 50% SYRINGE 50 ML IVP STA (06:35)
[2021-05-04] MEDS ORDERED: SODIUM BICARB 8.4% 50 ML SYR (1 MEQ/ML) IV STA ×2 (06:36→10:52)
[2021-05-04] MEDS ORDERED: INSULIN REGULAR 100 UNIT/ML VIAL (IV) IV ONE ×2 (06:45→11:00)
[2021-05-04] MEDS: INSULIN ASPART (NovoLOG) 100 UNIT/ML VIAL SQ SCH ×4 (06:54→21:22)
[2021-05-04] MEDS ORDERED: VANCOMYCIN 1,000 MG in SODIUM CHLORIDE 0.9% 250 ML IVPB ONE (07:00)
[2021-05-04] MEDS ORDERED: CALCIUM GLUCONATE 1 GM in SODIUM CHLORIDE 0.9% 100 ML IVPB ONE ×2 (07:00→11:15)
--- NOTE | 2021-05-04 08:07 | US ---
EXAMINATION TYPE: US kidneys/renal and bladder DATE OF EXAM: 05/04/2021 COMPARISON: CT & US 2020 CLINICAL HISTORY: hyperkalemia, gerson. Exam done portable in ICU EXAM MEASUREMENTS: Right Kidney: 12.8 x 6.3 x 5.5 cm Left Kidney: 12.7 x 7.5 x 5.6 cm Right Kidney: measures large in size, cortical thinning, 3.5cm irregular hypoechoic area mid pole Left Kidney: measures large in size, cortical thinning, visualized portions appear wnl, limited by ri b shadowing and overlying bowel gas Bladder: wnl Bilateral Jets seen: yes IMPRESSION: 1. Hypoechoic area within the mid right kidney may be a column of Karri. This may been present prev iously. Continued monitoring is recommended.
[2021-05-04] MEDS: BUDESONIDE 1 MG/2 ML NEBU INHALATION SCH ×2 (08:33→21:09)
[2021-05-04] MEDS: FORMOTEROL FUMARATE 20 MCG/2 ML NEBU INHALATION SCH ×2 (08:33→21:08)
[2021-05-04] MEDS: IPRATROPIUM-ALBUTEROL 3 ML NEB INHALATION SCH ×4 (08:46→21:09)
[2021-05-04] MEDS ORDERED: LEVOTHYROXINE 100 MCG TAB PO SCH (09:00)
[2021-05-04] MEDS: ESCITALOPRAM 20 MG TAB PO SCH (09:22)
[2021-05-04] MEDS: ATORVASTATIN 40 MG TAB PO SCH (09:22)
[2021-05-04] MEDS: PANTOPRAZOLE 40 MG TABLET PO SCH ×2 (09:23→21:21)
[2021-05-04] MEDS: MONTELUKAST 10 MG TAB PO SCH (09:23)
[2021-05-04] MEDS: OXYBUTYNIN XL 5 MG TAB.ER.24 PO SCH ×3 (09:23→21:21)
[2021-05-04] MEDS: METOPROLOL SUCCINATE (ER) 50 MG TAB.ER.24H PO SCH (09:23)
[2021-05-04 09:57] LABS: Calcium 10.3 mg/dL (8.4-10.2)
[2021-05-04] MEDS ORDERED: VANCOMYCIN 1,250 MG in SODIUM CHLORIDE 0.9% 250 ML IVPB ONE (10:00)
[2021-05-04 10:10] LABS: Potassium 6.2 mmol/L (3.5-5.1)
--- NOTE | 2021-05-04 10:14 | P.CNPUL ---
History of Present Illness Consult date: 05/04/21 Requesting physician: Mark Manzo Reason for consult: other (Critical care management) Chief complaint: Hyperkalemia History of present illness: This is a very pleasant 70-year-old female patient with a known history of hypothyroidism, hyperlipidemia, depression, COPD, diabetes mellitus, hy pertension. She had recently undergone bowel resection with diverting colostomy with a known left psoas abscess. She was having follow-up outpatient labs revealed a potassium of greater than 7 and she was directed to the emergency room for the same. She was found to be hyperkalemic with acute kidney injury and underlying sepsis. Computed tomography scan of the abdomen revealed a psoas abscess on the left. She was initiated on vancomycin and meropenem. She was in the intensive care unit due to the hyperkalemia. Most recent potassium level is 6.0. She has 0.9 normal saline at 100 ML's per hour. She is maintaining good O2 saturations in the 90s on 3 L/m per nasal cannula. Her CoVID screen was negative. She is seen today in consultation. She is currently resting fairly comfortably in bed. Awake, alert. White count 15.9. Hemoglobin 7.1. Sodium 130. Potassium 6.0. Bicarb 21. BUN 54. Creatinine 1.76. Glucose 110. Review of Systems REVIEW OF SYSTEMS: CONSTITUTIONAL: Denies any recent significant weight loss or weight gain. EYES: Denies change in vision. EARS, NOSE, MOUTH, THROAT: Denies headaches, denies sore throat. CARDIOVASCULAR: Denies chest pain, palpitations or syncopal episodes. RESPIRATORY: Denies shortness of breath, cough, congestion or hemoptysis. GASTROINTESTINAL: Positive for abdominal pain GENITOURINARY: Denies hematuria, denies infections. MUSKULOSKELETAL: Denies pain, denies swelling. INTEGUMENTARY: Denies rash, denies eczema. NEUROLOGICAL: Denies recent memory loss, no recent seizure activity. PSYCHIATRIC: Denies anxiety, denies depression. HEMATOLOGIC/LYMPHATIC: Denies anemia, denies enlarged lymph nodes. Past Medical History Past Medical History: Asthma, Chest Pain / Angina, COPD, Diabetes Mellitus, Hyperlipidemia, Hypertension, Osteoarthritis (OA), Respiratory Disorder, Skin Disorder, Thyroid Disorder Additional Past Medical History / Comment(s): Obesity (BMI 35) COPD, asthma, diabetes , depression, 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 The patient is also a recently quit smoker. The patient has chronic back pain. History of Any Multi-Drug Resistant Organisms: VRE Date of last positivie culture/infection: 02/18/21 MDRO Source:: Peritoneal Fluid-Abdominal Past Surgical History: Appendectomy, Bowel Resection, Section, Dorita cystectomy, Orthopedic Surgery, Tubal Ligation Additional Past Surgical History / Comment(s): LASER SX JETHRO EYES FOR GLAUCOMA. RT KNEE ARTHROSCOPY. UNDERWENT PERCUTANEOUS NEPHROSTOLITHOTOMY, colostomy Past Anesthesia/Blood Transfusion Reactions: No Reported Reaction Past Psychological History: Anxiety, Depression Smoking Status: Former smoker Past Alcohol Use History: None Reported Past Drug Use History: None Reported - Past Family History Mother Additional Family Medical History / Comment(s): emphysema, heart valve problems, in her slepp. Brother(s) Family Medical History: Cancer Additional Family Medical History / Comment(s): from oral cancer Father Brother(s) Family Medical History: Cancer Additional Family Medical History / Comment(s): heart disease Medications and Allergies Home Medications Medication Instructions Recorded Confirmed Type Zafirlukast [Accolate] 20 mg PO BID 02/06/14 05/03/21 History ARIPiprazole [Abilify] 5 mg PO HS 02/07/18 05/03/21 History metFORMIN HCL [Glucophage] 1,000 mg PO BID-W/MEALS 02/07/18 05/03/21 History Atorvastatin [Lipitor] 40 mg PO DAILY #30 tab 09/10/18 05/03/21 Rx Cholecalciferol [Vitamin D3 (25 1,000 unit PO DAILY 09/03/19 05/03/21 History Mcg = 1000 Iu)] Levothyroxine Sodium [Synthroid] 200 mcg PO DAILY 09/03/19 05/03/21 History Albuterol Sulfate [Ventolin HFA] 1 - 2 puff INHALATION RT-Q6H PRN 03/11/20 05/03/21 History Escitalopram [Lexapro] 20 mg PO DAILY 03/11/20 05/03/21 History Budesonide [Pulmicort] 1 mg INHALATION RT-BID ml 03/27/20 05/03/21 Rx Formoterol Fumarate [Perforomist] 20 mcg INHALATION RT-BID nebu 03/27/20 05/03/21 Rx HYDROcodone/APAP 7.5-325MG [[place] 1 tab PO Q6H PRN #12 tab 03/27/20 05/03/21 Rx 7.5-325] Ipratropium-Albuterol Nebulize 3 ml INHALATION RT-Q2H PRN ml 03/27/20 05/03/21 Rx [Duoneb 0.5 mg-3 mg/3 ml Soln] Pantoprazole Sodium [Protonix] 40 mg PO BID #60 tablet.dr 03/27/20 05/03/21 Rx Furosemide [Lasix] 40 mg PO DAILY 04/27/20 05/03/21 History traZODone HCL 100 mg PO HS PRN 05/15/20 05/03/21 History Spironolactone [Aldactone] 12.5 mg PO DAILY #30 tab 12/27/20 05/03/21 Rx Magnesium Oxide [Mag-Ox] 400 mg PO DAILY 01/21/21 05/03/21 History Metoprolol Succinate (ER) [Toprol 50 mg PO DAILY #30 tab 02/23/21 05/03/21 Rx Xl] Lidocaine 5% Patch [Lidoderm 5% 1 patch TRANSDERM Q12H PRN 05/03/21 05/03/21 History Patch] Lisinopril [Zestril] 10 mg PO DAILY 05/03/21 05/03/21 History Oxybutynin Xl [Ditropan XL] 5 mg PO TID 05/03/21 05/03/21 History Sulfamethox-Tmp 800-160Mg [Bactrim 1 tab PO Q12H 05/03/21 05/03/21 History DS 800-160 mg] Allergies Allergy/AdvReac Type Severity Reaction Status Date / Time adhesive Allergy Rash/Hives Verified 05/03/21 22:08 ciprofloxacin [From Cipro] Allergy Rash/Hives Verified 05/03/21 22:08 ciprofloxacin HCl Allergy Rash/Hives Verified 05/03/21 22:08 [From Cipro] latex Allergy Rash/Hives Verified 05/03/21 22:08 levofloxacin [From Levaquin] Allergy Rash/Hives Verified 05/03/21 22:08 nitrofurantoin Allergy Rash/Hives Verified 05/03/21 22:08 [From Macrobid] nitrofurantoin Allergy Rash/Hives Verified 05/03/21 22:08 macrocrystalline [From Macrobid] Penicillins Allergy Rash/Hives Verified 05/03/21 22:08 propoxyphene HCl Allergy Rash/Hives Verified 05/03/21 22:08 [From Darvon] propoxyphene napsylate Allergy Unknown Verified 05/03/21 22:08 [From Darvocet-N] Physical Exam Vitals: Vital Signs Temp Pulse Resp BP Pulse Ox 05/04/21 08:44 72 05/04/21 08:34 71 05/04/21 07:00 68 17 121/45 93 L 05/04/21 06:00 71 17 93/38 92 L 05/04/21 05:00 81 20 102/54 90 L 05/04/21 04:00 98.7 F 93 16 95/40 91 L 05/04/21 03:20 93 13 90 L 05/04/21 03:10 95 18 90 L 05/04/21 03:00 97 18 107/60 91 L 05/04/21 02:50 98 19 91 L 05/04/21 02:40 98 19 91 L 05/04/21 02:30 100 20 91 L 05/04/21 02:20 98 18 90 L 05/04/21 02:10 98 20 91 L 05/04/21 02:00 99 19 91 L 05/04/21 01:50 98 18 92 L 05/04/21 01:40 96 13 90 L 05/04/21 01:30 95 14 135/42 90 L 05/03/21 20:47 97.9 F 66 18 105/54 95 Intake and Output 05/03/21 05/04/21 05/04/21 22:59 06:59 14:59 Intake Total 500 100 Balance 500 100 Intake: Intake, IV Titration 500 100 Amount Meropenem 500 mg In 100 Sodium Chloride 0.9% 100 ml @ 33.3 mls/hr IVPB Q12H KIET Rx#:[id number] Sodium Chloride 0.9% 1, 400 100 000 ml @ 100 mls/hr IV . Q10H KIET Rx#:[id number] Other: Voiding Method Diaper # Voids 1 1 # Bowel Movements 1 1 Weight 64.41 kg 64.41 kg GENERAL EXAM: Alert, pleasant 70-year-old female patient, on 3 L nasal cannula, fairly comfortable in no apparent distress. HEAD: Normocephalic. EYES: Normal reaction of pupils, equal size. NOSE: Clear with pink turbinates. THROAT: No erythema or exudates. NECK: No masses, no JVD. CHEST: No chest wall deformity. LUNGS: Equal air entry with no crackles, wheeze, rhonchi or dullness. CVS: S1 and S2 normal with no audible murmur, regular rhythm. ABDOMEN: Midline surgical site well-healed left diverting colostomy, functioning, normal bowel sounds, no guarding or rigidity. SPINE: No scoliosis or deformity SKIN: No rashes CENTRAL NERVOUS SYSTEM: No focal deficits, tone is normal in all 4 extremities. EXTREMITIES: There is no peripheral edema. No clubbing, no cyanosis. Peripheral pulses are intact. Results - Laboratory Findings CBC and BMP: 05/04/21 02:23 05/04/21 02:23 Abnormal lab findings: Abnormal Labs 05/03/21 05/03/21 05/03/21 21:44 21:44 23:02 WBC 12.6 H RBC 2.41 L Hgb 7.4 L Hct 23.7 L MCHC Plt Count 487 H Neutrophils # 10.5 H Sodium 130 L Potassium 7.2 H* Carbon Dioxide BUN 54 H Creatinine 1.87 H Glucose 131 H POC Glucose (mg/dL) 131 H Alkaline Phosphatase 184 H Total Protein 6.1 L Albumin 3.0 L 05/04/21 05/04/21 05/04/21 01:23 02:23 02:23 WBC 15.9 H RBC 2.33 L Hgb 7.1 L Hct 23.2 L MCHC 30.8 L Plt Count Neutrophils # 13.3 H Sodium 130 L Potassium 6.0 H Carbon Dioxide 21 L BUN 54 H Creatinine 1.76 H Glucose 110 H POC Glucose (mg/dL) 111 H Alkaline Phosphatase 180 H Total Protein 5.7 L Albumin 2.8 L Assessment and Plan Assessment: 1 Hyperkalemia secondary to acute kidney injury and sepsis. 2 Sepsis secondary to enlarging left psoas abscess, currently on vancomycin and meropenem 3 Recent bowel resection with diverting colostomy, functioning 4 Leukocytosis secondary to above 5 Chronic hypoxemic respiratory failure secondary to chronic obstructive pulmonary disease 6 Hypothyroidism 7 Hyperlipidemia 8 Hypertension 9 History of ESBL gram-negative infection 10 Chronic anemia 11 Diabetes mellitus 12 History of depression Plan: The patient was seen and evaluated by Dr. Silveira Consult placed to surgical services Consult placed to interventional radiology for possible drainage of the enlarging left psoas abscess Remains on vancomycin and meropenem Continue bronchodilators Titrate the FiO2 as tolerated Follow-up potassium levels We will continue to follow and make further recommendations based on her clinical status I, the cosigning physician, performed a history & physical examination of the patient. Lungs sounds are clear, diminished. Maintaining good O2 saturations in the 90s on 3 L/m per nasal cannula. I discussed the assessment and plan of care with my nurse practitioner, Melany Rodriguez. I attest to the above consultation as dictated by her.
[2021-05-04 10:37] LABS: Appearance,Urine Cloudy (Clear); Bacteria,Urine Occasional /hpf; Bilirubin,Urine Negative (Negative); Blood,Urine Moderate (Negative); Color,Urine Dark Yellow; Glucose,Urine (UA) Negative (Negative); Ketones,Urine Negative (Negative); Leukocyte Esterase,Urine Large (Negative); Nitrite,Urine Negative (Negative); PH, Urine 6.5 (5.0-8.0); Protein,Urine Trace (Negative); RBC,Urine 15 /hpf (0-5); Squamous Epithelial Cell,Urine <1 /hpf (0-4); Urobilinogen,Urine <2.0 mg/dL (<2.0); WBC,Urine >182 /hpf (0-5)
[2021-05-04] MEDS ORDERED: FUROSEMIDE 10 MG/ML 4 ML VIAL IV STA (10:53)
[2021-05-04 11:15] LABS: Glucose,Whole Blood 201 mg/dL (75-99)
[2021-05-04] MEDS: DEXTROSE 50% SYRINGE 50 ML IVP STA ×2 (11:25→11:31)
[2021-05-04 11:26] LABS: Prothrombin Time 11.1 sec (9.0-12.0)
--- NOTE | 2021-05-04 11:42 | P.NPCON ---
History of Present Illness - Reason for Consult acute renal failure, hyperkalemia - History of Present Illness Reason for consultation: Acute kidney injury and hyperkalemia History of present illness: Patient is a 70-year-old female seen in renal consultation for acute kidney injury and hyperkalemia. Patient presented to the hospital due to abnormal labs. Her creatinine on admission was 1.87 and is down to 1.65 today. Potassium level was 7.2 on admission and has been medically treated. She has be en given IV calcium, IV insulin with D50, sodium bicarb as well as Kayexalate. Most recent potassium level .2 and medically treated again. Patient was taking lisinopril as well as spironolactone outpatient. Additionally she was also on Bactrim for the last 2 weeks for urinary tract infection. Her baseline creatinine is near 1. She does not follow-up with nephrology outpatient. She's also noted to have an iliac abscess and is scheduled for drainage today. No hydronephrosis noted. Denies use of nonsteroidals. Blood pressure has been in the range of systolic 90s to 130s his admission. Most recent blood pressure was 134/50. Feels tired but otherwise no complaints. She is receiving IV fluids. Patient states oral intake the last few days has been low. No hematuria or dysuria. Vital signs are stable. General: The patient appeared well nourished and normally developed. HEENT: Head exam is unremarkable. LUNGS: Breath sounds decreased. HEART: Rate and Rhythm are regular. ABDOMEN: Soft, no distention. EXTREMITITES: No edema. Past Medical History Past Medical History: Asthma, Chest Pain / Angina, COPD, Diabetes Mellitus, Hyperlipidemia, Hypertension, Osteoarthritis (OA), Respiratory Disorder, Skin Disorder, Thyroid Disorder Additional Past Medical History / Comment(s): Obesity (BMI 35) COPD, asthma, diabetes , depression, 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 The patient is also a recently quit smoker. The patient has chronic back pain. History of Any Multi-Drug Resistant Organisms: VRE Date of last positivie culture/infection: 02/18/21 MDRO Source:: Peritoneal Fluid-Abdominal Past Surgical History: Appendectomy, Bowel Resection, Section, Cholecystectomy, Orthopedic Surgery, Tubal Ligation Additional Past Surgical History / Comment(s): LASER SX JETHRO EYES FOR GLAUCOMA. RT KNEE ARTHROSCOPY. UNDERWENT PERCUTANEOUS NEPHROSTOLITHOTOMY, colostomy Past Anesthesia/Blood Transfusion Reactions: No Reported Reaction Past Psychological History: Anxiety, Depression Smoking Status: Former smoker Past Alcohol Use History: None Reported Past Drug Use History: None Reported - Past Family History Mother Additional Family Medical History / Comment(s): emphysema, heart valve problems, in her slepp. Brother(s) Family Medical History: Cancer Additional Family Medical History / Comment(s): from oral cancer Father Brother(s) Family Medical History: Cancer Additional Family Medical History / Comment(s): heart disease Medications and Allergies Home Medications Medication Instructions Recorded Confirmed Type Zafirlukast [Accolate] 20 mg PO BID 02/06/14 05/03/21 History ARIPiprazole [Abilify] 5 mg PO HS 02/07/18 05/03/21 History metFORMIN HCL [Glucophage] 1,000 mg PO BID-W/MEALS 02/07/18 05/03/21 History Atorvastatin [Lipitor] 40 mg PO DAILY #30 tab 09/10/18 05/03/21 Rx Cholecalciferol [Vitamin D3 (25 1,000 unit PO DAILY 09/03/19 05/03/21 History Mcg = 1000 Iu)] Levothyroxine Sodium [Synthroid] 200 mcg PO DAILY 09/03/19 05/03/21 History Albuterol Sulfate [Ventolin HFA] 1 - 2 puff INHALATION RT-Q6H PRN 03/11/20 05/03/21 History Escitalopram [Lexapro] 20 mg PO DAILY 03/11/20 05/03/21 History Budesonide [Pulmicort] 1 mg INHALATION RT-BID ml 03/27/20 05/03/21 Rx Formoterol Fumarate [Perforomist] 20 mcg INHALATION RT-BID nebu 03/27/20 05/03/21 Rx HYDROcodone/APAP 7.5-325MG [[place] 1 tab PO Q6H PRN #12 tab 03/27/20 05/03/21 Rx 7.5-325] Ipratropium-Albuterol Nebulize 3 ml INHALATION RT-Q2H PRN ml 03/27/20 05/03/21 Rx [Duoneb 0.5 mg-3 mg/3 ml Soln] Pantoprazole Sodium [Protonix] 40 mg PO BID #60 tablet. 03/27/20 05/03/21 Rx Furosemide [Lasix] 40 mg PO DAILY 04/27/20 05/03/21 History traZODone HCL 100 mg PO HS PRN 05/15/20 05/03/21 History Spironolactone [Aldactone] 12.5 mg PO DAILY #30 tab 12/27/20 05/03/21 Rx Magnesium Oxide [Mag-Ox] 400 mg PO DAILY 01/21/21 05/03/21 History Metoprolol Succinate (ER) [Toprol 50 mg PO DAILY #30 tab 02/23/21 05/03/21 Rx Xl] Lidocaine 5% Patch [Lidoderm 5% 1 patch TRANSDERM Q12H PRN 05/03/21 05/03/21 History Patch] Lisinopril [Zestril] 10 mg PO DAILY 05/03/21 05/03/21 History Oxybutynin Xl [Ditropan XL] 5 mg PO TID 05/03/21 05/03/21 History Sulfamethox-Tmp 800-160Mg [Bactrim 1 tab PO Q12H 05/03/21 05/03/21 History DS 800-160 mg] Allergies Allergy/AdvReac Type Severity Reaction Status Date / Time adhesive Allergy Rash/Hives Verified 05/03/21 22:08 ciprofloxacin [From Cipro] Allergy Rash/Hives Verified 05/03/21 22:08 ciprofloxacin HCl Allergy Rash/Hives Verified 05/03/21 22:08 [From Cipro] latex Allergy Rash/Hives Verified 05/03/21 22:08 levofloxacin [From Levaquin] Allergy Rash/Hives Verified 05/03/21 22:08 nitrofurantoin Allergy Rash/Hives Verified 05/03/21 22:08 [From Macrobid] nitrofurantoin Allergy Rash/Hives Verified 05/03/21 22:08 macrocrystalline [From Macrobid] Penicillins Allergy Rash/Hives Verified 05/03/21 22:08 propoxyphene HCl Allergy Rash/Hives Verified 05/03/21 22:08 [From Darvon] propoxyphene napsylate Allergy Unknown Verified 05/03/21 22:08 [From Darvocet-N] Physical Exam Vitals: Vital Signs Temp Pulse Resp BP Pulse Ox 05/04/21 10:00 84 13 134/50 92 L 05/04/21 09:00 84 15 96/34 95 05/04/21 08:44 72 05/04/21 08:00 98.3 F 71 16 131/45 92 L 05/04/21 07:00 68 17 121/45 93 L 05/04/21 06:00 71 17 93/38 92 L 05/04/21 05:00 81 20 102/54 90 L 05/04/21 04:00 98.7 F 93 16 95/40 91 L 05/04/21 03:20 93 13 90 L 05/04/21 03:10 95 18 90 L 05/04/21 03:00 97 18 107/60 91 L 05/04/21 02:50 98 19 91 L 05/04/21 02:40 98 19 91 L 05/04/21 02:30 100 20 91 L 05/04/21 02:20 98 18 90 L 05/04/21 02:10 98 20 91 L 05/04/21 02:00 99 19 91 L 05/04/21 01:50 98 18 92 L 05/04/21 01:40 96 13 90 L 05/04/21 01:30 95 14 135/42 90 L 05/03/21 20:47 97.9 F 66 18 105/54 95 Intake and Output 05/03/21 05/04/21 05/04/21 22:59 06:59 14:59 Intake Total 500 300 Output Total 40 Balance 500 260 Intake: IV 200 Sodium Chloride 0.9% 1, 200 000 ml @ 100 mls/hr IV . Q10H KIET Rx#:[id number] Intake, IV Titration 500 100 Amount Meropenem 500 mg In 100 Sodium Chloride 0.9% 100 ml @ 33.3 mls/hr IVPB Q12H KIET Rx#:[id number] Sodium Chloride 0.9% 1, 400 100 000 ml @ 100 mls/hr IV . Q10H KIET Rx#:[id number] Output: Urine 40 Other: Voiding Method Diaper # Voids 1 1 # Bowel Movements 1 1 Weight 64.41 kg 64.41 kg Results - Lab Results Most recent lab results Calcium 10.3 mg/dL (8.4-10.2) H 05/04/21 09:18 Magnesium 1.8 mg/dL (1.6-2.3) 05/03/21 21:44 05/04/21 02:23 05/04/21 09:18 Assessment and Plan Plan: Assessment: 1. Acute kidney injury secondary to ATN secondary to infection as well as Bactrim which can impair creatinine secretion. Baseline creatinine is near 1 and was 1.87 on admission. 1.65 today. No hydronephrosis noted. 2. UTI on antibiotics. 3. Hyperkalemia secondary to acute kidney injury, lisinopril, spironolactone and Bactrim. 4. Hypovolemic hyponatremia improved with IV hydration. 5. Anemia. Rule out iron deficiency. Check stool for occult blood. 6. Diabetes mellitus. 7. Iliac abscess. On antibiotics. Drainage pending. 8. Chronic diastolic CHF with moderate MR and TR. 9. Chronic sigmoid diverticulitis with colovesical fistula status post colostomy and Rico's procedure in February 2021. Plan: Maintain IV fluids - decrease rate to 75 cc/hr. Repeat IV calcium along with IV insulin with an amp of D50, sodium bicarbonate IV push and 40 mg of IV Lasix once. Repeat potassium level this afternoon. Avoid nephrotoxins. Continue to monitor renal function and urine output. Check bladder scan as well. Thank you for the consultation. I will continue to follow the patient with you during her hospital stay.
--- NOTE | 2021-05-04 11:57 | P.GSCN ---
<Lucretia Spann - Last Filed: 05/04/21 11:31> History of Present Illness Consult date: 05/04/21 History of present illness: CHIEF COMPLAINT: Hyperkalemia HISTORY OF PRESENT ILLNESS: This is a 70-year-old female who had chronic sigmoid diverticulitis with a colovesical fistula she is status post ascending colostomy creation with Rico's procedure on 02/18/[address] Velazquez. Patient has known history of hypothyroidism, hyperlipidemia, depression, COPD, diabetes mellitus and hypertension. Patient has a known left psoas abscess that was diagnosed when she had the colovesical fistula. Patient was sent to the ER due to abnormal labs. She had evidence of hyperkalemia outpatient with a potassium greater than 7. Patient was directed to come to the emergency room. She is admitted with hyperkalemia and acute kidney injury. She had a computed tomography scan of the abdomen and pelvis that showed complex mass along the left iliac muscle and psoas muscle consistent with an abscess that is partially visualized on old computed tomography scan. This appears increased slightly co mpared to old exam. Patient does reports lower abdominal pain. She reports the pain is not new. Denies any nausea or vomiting. She is tolerating diet. Her ostomy is functioning. She denies any fever chills or sweats. Surgical service has been consult it for the left psoas abscess. Patient is currently on antibiotics. Interventional radiology has already been consulted for drainage of abscess. PAST MEDICAL HISTORY: See list. PAST SURGICAL HISTORY: See list. MEDICATIONS: See list. ALLERGIES: See list. SOCIAL HISTORY: No illicit drug use. REVIEW OF SYSTEMS: CONSTITUTIONAL: Denies fever or chills. HEENT: Denies blurred vision, vision changes, or eye pain. Denies hemoptysis ENDOCRINE: Denies heat or cold intolerance. CARDIOVASCULAR: Denies chest pain or pressure. RESPIRATORY: No shortness of breath. GASTROINTESTINAL: Denies nausea or vomiting. NEURO: Denies history of seizures. PSYCH: No depression or suicidal ideation HEMATOLOGIC: Denies bleeding disorders. LYMPHATIC: The patient denies any lumps and bumps around the neck. GENITOURINARY: Denies any blood in urine or increased urinary frequency. MUSCULOSKELETAL: Denies myalgias. Denies joint swelling. Denies decreased range of motion beyond patients baseline. SKIN: Denies pruitis. Denies rash. PHYSICAL EXAM: VITAL SIGNS: Reviewed GENERAL: Well-developed in no acute distress. HEENT: No sclera icterus. Extraocular movements grossly intact. Moist buccal mucosa. Head is atraumatic, normocephalic. Hears conversational speech. No nasal drainage. NECK: Supple without lymphadenopathy. CHEST: Non-labored respirations and equal bilateral excursions. CARDIOVASCULAR: Palpable 2+ radial pulses. ABDOMEN: Soft. Nondistended. Surgical site 2 mm scabbed area noted on upper incision. Otherwise incision is clean dry and intact. Mild tenderness with palpation around incision and lower abdomen. Ostomy is functioning with stool and air present. MUSCULOSKELETAL: No clubbing or cyanosis. NEUROLOGIC: No focal or lateralizing signs. Cranial nerves II through XII grossly intact. PSYCH: Appropriate affect. Alert and oriented to person, place and time. SKIN: Well perfused. Good skin turgor. LABORATORY DATA: WBC has gone from 12.6-15.9 hemoglobin 7.1 platelets 433 sodium 134 potassium is down from 7.2-6.2 Creatinine down from 1.87 to 1.65 Lipase 173 AST ALT normal alk phos 180 Urinalysis positive for UTI COVID-19 not detected IMAGING: Computed tomography scan abdomen and pelvis there is some atelectasis left posterior lung base that is new compared to old exam. Complex mass along the left iliac muscle and psoas muscle consistent with an abscess that is partially visualized on the old computed tomography scan. This appears increased slightly compared to old exam. There is a descending colon colostomy noted. There are sigmoid diverticula. There is a mixed density mass along the left psoas muscle with air bubbles. This measures 5.5 x 2.5 cm there is no sign of pneumoperit oneum. ASSESSMENT: 1. Left psoas muscle abscess that has increased in size 2. Chronic sigmoid diverticulitis with a colovesical fistula she is status post ascending colostomy creation with Rico's procedure on 02/18/2021 3. Acute kidney injury 4. Hyperkalemia 5. Diabetes mellitus 6. History of iron deficiency anemia 7. History of moderate aortic stenosis with mild pulmonary hypertension 8. History of hypertensive heart disease PLAN: -Continue ICU management and supportive care -Agree with interventional radiology consult for drainage of left psoas muscle abscess -Continue antibiotics per ID -hyperkalemia and acute kidney injury managed by nephrology -Continue carb consistent diet -We will continue to follow Thank you for this consultation Physician Tool Storage Attendant note has been reviewed by physician. Signing provider agrees with the documented findings, assessment, and plan of care. Past Medical History Past Medical History: Asthma, Chest Pain / Angina, COPD, Diabetes Mellitus, Hyperlipidemia, Hypertension, Osteoarthritis (OA), Respiratory Disorder, Skin Disorder, Thyroid Disorder Additional Past Medical History / Comment(s): Obesity (BMI 35) COPD, asthma, diabetes , depression, 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 The patient is also a recently quit smoker. The patient has chronic back pain. History of Any Multi-Drug Resistant Organisms: VRE Year Discovered:: 02/18/21 MDRO Source:: Peritoneal Fluid-Abdominal Past Surgical History: Appendectomy, Bowel Resection, Section, Cholecystectomy, Orthopedic Surgery, Tubal Ligation Additional Past Surgical History / Comment(s): LASER SX JETHRO EYES FOR GLAUCOMA. RT KNEE ARTHROSCOPY. UNDERWENT PERCUTANEOUS NEPHROSTOLITHOTOMY, colostomy Past Anesthesia/Blood Transfusion Reactions: No Reported Reaction Past Psychological History: Anxiety, Depression Smoking Status: Former smoker Past Alcohol Use History: None Reported Past Drug Use History: None Reported - Past Family History Mother Additional Family Medical History / Comment(s): emphysema, heart valve problems, in her slepp. Brother(s) Family Medical History: Cancer Additional Family Medical History / Comment(s): from oral cancer Father Brother(s) Family Medical History: Cancer Additional Family Medical History / Comment(s): heart disease Medications and Allergies Home Medications Medication Instructions Recorded Confirmed Type Zafirlukast [Accolate] 20 mg PO BID 02/06/14 05/03/21 History ARIPiprazole [Abilify] 5 mg PO HS 02/07/18 05/03/21 History metFORMIN HCL [Glucophage] 1,000 mg PO BID-W/MEALS 02/07/18 05/03/21 History Atorvastatin [Lipitor] 40 mg PO DAILY #30 tab 09/10/18 05/03/21 Rx Cholecalciferol [Vitamin D3 (25 1,000 unit PO DAILY 09/03/19 05/03/21 History Mcg = 1000 Iu)] Levothyroxine Sodium [Synthroid] 200 mcg PO DAILY 09/03/19 05/03/21 History Albuterol Sulfate [Ventolin HFA] 1 - 2 puff INHALATION RT-Q6H PRN 03/11/20 05/03/21 History Escitalopram [Lexapro] 20 mg PO DAILY 03/11/20 05/03/21 History Budesonide [Pulmicort] 1 mg INHALATION RT-BID ml 03/27/20 05/03/21 Rx Formoterol Fumarate [Perforomist] 20 mcg INHALATION RT-BID nebu 03/27/20 05/03/21 Rx HYDROcodone/APAP 7.5-325MG [[place] 1 tab PO Q6H PRN #12 tab 03/27/20 05/03/21 Rx 7.5-325] Ipratropium-Albuterol Nebulize 3 ml INHALATION RT-Q2H PRN ml 03/27/20 05/03/21 Rx [Duoneb 0.5 mg-3 mg/3 ml Soln] Pantoprazole Sodium [Protonix] 40 mg PO BID #60 tablet.dr 03/27/20 05/03/21 Rx Furosemide [Lasix] 40 mg PO DAILY 04/27/20 05/03/21 History traZODone HCL 100 mg PO HS PRN 05/15/20 05/03/21 History Spironolactone [Aldactone] 12.5 mg PO DAILY #30 tab 12/27/20 05/03/21 Rx Magnesium Oxide [Mag-Ox] 400 mg PO DAILY 01/21/21 05/03/21 History Metoprolol Succinate (ER) [Toprol 50 mg PO DAILY #30 tab 02/23/21 05/03/21 Rx Xl] Lidocaine 5% Patch [Lidoderm 5% 1 patch TRANSDERM Q12H PRN 05/03/21 05/03/21 History Patch] Lisinopril [Zestril] 10 mg PO DAILY 05/03/21 05/03/21 History Oxybutynin Xl [Ditropan XL] 5 mg PO TID 05/03/21 05/03/21 History Sulfamethox-Tmp 800-160Mg [Bactrim 1 tab PO Q12H 05/03/21 05/03/21 History DS 800-160 mg] Allergies Allergy/AdvReac Type Severity Reaction Status Date / Time adhesive Allergy Rash/Hives Verified 05/03/21 22:08 ciprofloxacin [From Cipro] Allergy Rash/Hives Verified 05/03/21 22:08 ciprofloxacin HCl Allergy Rash/Hives Verified 05/03/21 22:08 [From Cipro] latex Allergy Rash/Hives Verified 05/03/21 22:08 levofloxacin [From Levaquin] Allergy Rash/Hives Verified 05/03/21 22:08 nitrofurantoin Allergy Rash/Hives Verified 05/03/21 22:08 [From Macrobid] nitrofurantoin Allergy Rash/Hives Verified 05/03/21 22:08 macrocrystalline [From Macrobid] Penicillins Allergy Rash/Hives Verified 05/03/21 22:08 propoxyphene HCl Allergy Rash/Hives Verified 05/03/21 22:08 [From Darvon] propoxyphene napsylate Allergy Unknown Verified 05/03/21 22:08 [From Darvocet-N] Surgical - Exam Vital Signs Temp Pulse Resp BP Pulse Ox 97.9 F 66 18 105/54 95 05/03/21 20:47 05/03/21 20:47 05/03/21 20:47 05/03/21 20:47 05/03/21 20:47 Results - Labs 05/04/21 02:23 05/04/21 09:18 Abnormal Lab Results - Last 24 Hours (Table) 05/03/21 05/03/21 05/03/21 Range/Units 09:58 21:44 21:44 WBC 12.6 H (3.8-10.6) k/uL RBC 2.41 L (3.80-5.40) m/uL Hgb 7.4 L (11.4-16.0) gm/dL Hct 23.7 L (34.0-46.0) % MCHC (31.0-37.0) g/dL Plt Count 487 H (150-450) k/uL Neutrophils # 10.5 H (1.3-7.7) k/uL Sodium 130 L (137-145) mmol/L Potassium 7.2 H* (3.5-5.1) mmol/L Carbon Dioxide (22-30) mmol/L BUN 54 H (7-17) mg/dL Creatinine 1.87 H (0.52-1.04) mg/dL Glucose 131 H (74-99) mg/dL POC Glucose (mg/dL) (75-99) mg/dL Calcium (8.4-10.2) mg/dL Alkaline Phosphatase 184 H (38-126) U/L Total Protein 6.1 L (6.3-8.2) g/dL Albumin 3.0 L (3.5-5.0) g/dL Urine Appearance Cloudy H (Clear) Urine Protein Trace H (Negative) Urine Blood Moderate H (Negative) Ur Leukocyte Esterase Large H (Negative) Urine RBC 15 H (0-5) /hpf Urine WBC >182 H (0-5) /hpf Urine WBC Clumps Many H (None) /hpf Urine Bacteria Occasional H (None) /hpf 05/03/21 05/04/21 05/04/21 Range/Units 23:02 01:23 02:23 WBC 15.9 H (3.8-10.6) k/uL RBC 2.33 L (3.80-5.40) m/uL Hgb 7.1 L (11.4-16.0) gm/dL Hct 23.2 L (34.0-46.0) % MCHC 30.8 L (31.0-37.0) g/dL Plt Count (150-450) k/uL Neutrophils # 13.3 H (1.3-7.7) k/uL Sodium (137-145) mmol/L Potassium (3.5-5.1) mmol/L Carbon Dioxide (22-30) mmol/L BUN (7-17) mg/dL Creatinine (0.52-1.04) mg/dL Glucose (74-99) mg/dL POC Glucose (mg/dL) 131 H 111 H (75-99) mg/dL Calcium (8.4-10.2) mg/dL Alkaline Phosphatase (38-126) U/L Total Protein (6.3-8.2) g/dL Albumin (3.5-5.0) g/dL Urine Appearance (Clear) Urine Protein (Negative) Urine Blood (Negative) Ur Leukocyte Esterase (Negative) Urine RBC (0-5) /hpf Urine WBC (0-5) /hpf Urine WBC Clumps (None) /hpf Urine Bacteria (None) /hpf 05/04/21 05/04/21 05/04/21 Range/Units 02:23 09:18 11:15 WBC (3.8-10.6) k/uL RBC (3.80-5.40) m/uL Hgb (11.4-16.0) gm/dL Hct (34.0-46.0) % MCHC (31.0-37.0) g/dL Plt Count (150-450) k/uL Neutrophils # (1.3-7.7) k/uL Sodium 130 L 134 L (137-145) mmol/L Potassium 6.0 H 6.2 H* (3.5-5.1) mmol/L Carbon Dioxide 21 L (22-30) mmol/L BUN 54 H 50 H (7-17) mg/dL Creatinine 1.76 H 1.65 H (0.52-1.04) mg/dL Glucose 110 H (74-99) mg/dL POC Glucose (mg/dL) 201 H (75-99) mg/dL Calcium 10.3 H (8.4-10.2) mg/dL Alkaline Phosphatase 180 H (38-126) U/L Total Protein 5.7 L (6.3-8.2) g/dL Albumin 2.8 L (3.5-5.0) g/dL Urine Appearance (Clear) Urine Protein (Negative) Urine Blood (Negative) Ur Leukocyte Esterase (Negative) Urine RBC (0-5) /hpf Urine WBC (0-5) /hpf Urine WBC Clumps (None) /hpf Urine Bacteria (None) /hpf Diabetes panel 05/03/21 05/04/21 05/04/21 Range/Units 21:44 02:23 09:18 Sodium 130 L 130 L 134 L (137-145) mmol/L Potassium 7.2 H* 6.0 H 6.2 H* (3.5-5.1) mmol/L Chloride 101 103 103 (98-107) mmol/L Carbon Dioxide 23 21 L 22 (22-30) mmol/L BUN 54 H 54 H 50 H (7-17) mg/dL Creatinine 1.87 H 1.76 H 1.65 H (0.52-1.04) mg/dL Glucose 131 H 110 H 92 (74-99) mg/dL Calcium 9.8 10.0 10.3 H (8.4-10.2) mg/dL AST 28 24 (14-36) U/L ALT 33 29 (4-34) U/L Alkaline Phosphatase 184 H 180 H (38-126) U/L Total Protein 6.1 L 5.7 L (6.3-8.2) g/dL Albumin 3.0 L 2.8 L (3.5-5.0) g/dL Calcium panel 05/03/21 05/04/21 05/04/21 Range/Units 21:44 02:23 09:18 Calcium 9.8 10.0 10.3 H (8.4-10.2) mg/dL Albumin 3.0 L 2.8 L (3.5-5.0) g/dL Pituitary panel 05/03/21 05/04/21 05/04/21 Range/Units 21:44 02:23 09:18 Sodium 130 L 130 L 134 L (137-145) mmol/L Potassium 7.2 H* 6.0 H 6.2 H* (3.5-5.1) mmol/L Chloride 101 103 103 (98-107) mmol/L Carbon Dioxide 23 21 L 22 (22-30) mmol/L BUN 54 H 54 H 50 H (7-17) mg/dL Creatinine 1.87 H 1.76 H 1.65 H (0.52-1.04) mg/dL Glucose 131 H 110 H 92 (74-99) mg/dL Calcium 9.8 10.0 10.3 H (8.4-10.2) mg/dL Adrenal panel 05/03/21 05/04/21 05/04/21 Range/Units 21:44 02:23 09:18 Sodium 130 L 130 L 134 L (137-145) mmol/L Potassium 7.2 H* 6.0 H 6.2 H* (3.5-5.1) mmol/L Chloride 101 103 103 (98-107) mmol/L Carbon Dioxide 23 21 L 22 (22-30) mmol/L BUN 54 H 54 H 50 H (7-17) mg/dL Creatinine 1.87 H 1.76 H 1.65 H (0.52-1.04) mg/dL Glucose 131 H 110 H 92 (74-99) mg/dL Calcium 9.8 10.0 10.3 H (8.4-10.2) mg/dL Total Bilirubin 0.4 0.4 (0.2-1.3) mg/dL AST 28 24 (14-36) U/L ALT 33 29 (4-34) U/L Alkaline Phosphatase 184 H 180 H (38-126) U/L Total Protein 6.1 L 5.7 L (6.3-8.2) g/dL Albumin 3.0 L 2.8 L (3.5-5.0) g/dL <Ban Velazquez N - Last Filed: 05/05/21 19:07> History of Present Illness History of present illness: As above. Please see his additional documentation. CHIEF COMPLAINT: Complicated sigmoid diverticulitis HISTORY OF PRESENT ILLNESS: The patient is a 70 year old female with pre- existing complicated sigmoid diverticulitis long-standing well over 4+ months. In February she had a Rico's procedure for colo-vesical fistula and diverticulitis. She reports that she was following up with her social contact worker on Sunday. Blood work was obtained at that time. She was then called back from the office to go emergency room due to dangerously high levels of potassium. Patient reports eating potassium rich foods including V-8 juice and tomatoes. is at bedside. She reports pre-existing history of chronic lower back pain. Additionally, patient reports intermittent abdominal pain. Gen. surgery is consulted for complicated diverticulitis. PAST MEDICAL HISTORY: See list and reviewed PAST SURGICAL HISTORY: See list and reviewed MEDICATIONS: See list and reviewed ALLERGIES: See list and reviewed SOCIAL HISTORY: See list and reviewed FAMILY HISTORY: See list and reviewed REVIEW OF ORGAN SYSTEMS: CONSTITUTIONAL: No fevers or chills. No recent weight loss. EYES: Wears glasses. Has glaucoma. HEENT: No difficulties with hearing. No nosebleeds. No difficulty swallowing. RESPIRATORY: Past pneumonia. Has chronic obstructive pulmonary disease and oxygen dependence. CARDIOVASCULAR: Past chest pain, palpitations. No recent heart attacks. Has hypertensive heart disease with congestive heart failure. Has hyperlipidemia. GASTROINTESTINAL: Denies fatty food intolerance. Has completed diverticulitis. Has gastroesophageal reflux disease. GENITOURINARY: Has intermittent blood in urine and increased urinary frequency. Has chronic urinary tract infection and renal insufficiency. NEUROLOGICAL: Denies any numbness or tingling along the distal extremities. No seizure disorders or headaches. MUSCULOSKELETAL: Has chronic back pain, stiffness or joint arthritis. SKIN: No current skin cancer. No rash. PSYCHIATRIC: Has depressive disorder. ENDOCRINE: Has hypothyroidism. Denies any blood sugar glucose intolerance. HEME/LYMPHATIC: Denies any lumps and bumps around the neck. No recent deep venous thrombosis. ALLERGY/IMMUNOLOGY: No immunoglobulin therapy. No immune deficiencies. BREAST: Denies current breast lumps, pain or nipple discharge. PHYSICAL EXAM: VITALS: Reviewed CONSTITUTIONAL: Well developed and in no acute distress. EYES: Conjuctivae without sclera icterus. Extraocular movements grossly intact. HEAD, EARS, NOSE, THROAT: Moist buccal mucosa. Head is atraumatic, normocephalic. Hears conversational speech. No nasal drainage. NECK: No JV distention. No thyroidomegaly. RESPIRATORY: Non-labored respirations and equal bilateral excursions. No gross wheezes. CARDIOVASCULAR: Regular rate and rhythm. Extremities without moderate edema. ABDOMEN: Ostomy is viable and pink. No peritonitis. LYMPH: No gross neck lymphadenopathy. MUSCULOSKELETAL: Nail and fingers with good capillary refill. SKIN: Warm and well perfused with good skin turgor. NEUROLOGIC: Cranial nerves II through XII grossly intact. No focal or lateralizing signs. PSYCH: Appropriate affect. Alert and oriented to person, place and time. Displays appropriate insight. CLINCAL LABS: Reviewed. WBC elevated at over 12-15,000. Potassium elevated over 7.0 down to over 5.5. IMAGING: Independently reviewed CT of the abdomen and pelvis with ostomy intact. Improved inflammatory changes along the sigmoid colon. RADIOLOGY: Report reviewed after CT of the abdomen and pelvis with features of iliopsoas abscess over 5 cm left abdomen. ASSESSMENT: 1. Complicated sigmoid diverticulitiswith colovesical fistula 2. Hyperkalemia PLAN: 1. Patient is scheduled to undergo CT-guided drainage of iliopsoas abscess. 2. Continue IV antibiotics. 3. Correction of hyperkalemia. Thank you for this kind consultation. Surgical - Exam Vital Signs Temp Pulse Resp BP Pulse Ox 97.9 F 66 18 105/54 95 05/03/21 20:47 05/03/21 20:47 05/03/21 20:47 05/03/21 20:47 05/03/21 20:47 Results - Labs 05/05/21 06:04 05/05/21 06:04 Abnormal Lab Results - Last 24 Hours (Table) 05/04/21 05/04/21 05/05/21 Range/Units 20:53 21:00 06:04 WBC (3.8-10.6) k/uL RBC (3.80-5.40) m/uL Hgb (11.4-16.0) gm/dL Hct (34.0-46.0) % Sodium 132 L (137-145) mmol/L Potassium 5.5 H 5.7 H (3.5-5.1) mmol/L BUN 38 H (7-17) mg/dL Creatinine 1.06 H (0.52-1.04) mg/dL Glucose 125 H (74-99) mg/dL POC Glucose (mg/dL) 223 H (75-99) mg/dL Magnesium 1.4 L (1.6-2.3) mg/dL Crossmatch 05/05/21 05/05/21 05/05/21 Range/Units 06:04 06:11 08:30 WBC 12.4 H (3.8-10.6) k/uL RBC 2.09 L (3.80-5.40) m/uL Hgb 6.5 L* (11.4-16.0) gm/dL Hct 20.4 L (34.0-46.0) % Sodium (137-145) mmol/L Potassium (3.5-5.1) mmol/L BUN (7-17) mg/dL Creatinine (0.52-1.04) mg/dL Glucose (74-99) mg/dL POC Glucose (mg/dL) 135 H (75-99) mg/dL Magnesium (1.6-2.3) mg/dL Crossmatch See Detail 05/05/21 05/05/21 05/05/21 Range/Units 08:35 11:44 16:36 WBC (3.8-10.6) k/uL RBC (3.80-5.40) m/uL Hgb (11.4-16.0) gm/dL Hct (34.0-46.0) % Sodium (137-145) mmol/L Potassium (3.5-5.1) mmol/L BUN (7-17) mg/dL Creatinine (0.52-1.04) mg/dL Glucose (74-99) mg/dL POC Glucose (mg/dL) 138 H 229 H 214 H (75-99) mg/dL Magnesium (1.6-2.3) mg/dL Crossmatch Microbiology - Last 24 Hours (Table) 05/03/21 09:58 Urine Culture - Final Urine,Catheterized Non Hemolytic Strep 05/04/21 03:58 Blood Culture - Preliminary Blood No Growth after 24 hours Diabetes panel 05/04/21 05/05/21 Range/Units 21:00 06:04 Sodium 132 L (137-145) mmol/L Potassium 5.5 H 5.7 H (3.5-5.1) mmol/L Chloride 103 (98-107) mmol/L Carbon Dioxide 23 (22-30) mmol/L BUN 38 H (7-17) mg/dL Creatinine 1.06 H (0.52-1.04) mg/dL Glucose 125 H (74-99) mg/dL Calcium 9.2 (8.4-10.2) mg/dL Calcium panel 05/05/21 Range/Units 06:04 Calcium 9.2 (8.4-10.2) mg/dL Pituitary panel 05/04/21 05/05/21 Range/Units 21:00 06:04 Sodium 132 L (137-145) mmol/L Potassium 5.5 H 5.7 H (3.5-5.1) mmol/L Chloride 103 (98-107) mmol/L Carbon Dioxide 23 (22-30) mmol/L BUN 38 H (7-17) mg/dL Creatinine 1.06 H (0.52-1.04) mg/dL Glucose 125 H (74-99) mg/dL Calcium 9.2 (8.4-10.2) mg/dL Adrenal panel 05/04/21 05/05/21 Range/Units 21:00 06:04 Sodium 132 L (137-145) mmol/L Potassium 5.5 H 5.7 H (3.5-5.1) mmol/L Chloride 103 (98-107) mmol/L Carbon Dioxide 23 (22-30) mmol/L BUN 38 H (7-17) mg/dL Creatinine 1.06 H (0.52-1.04) mg/dL Glucose 125 H (74-99) mg/dL Calcium 9.2 (8.4-10.2) mg/dL Assessment and Plan (1) Acute kidney injury Current Visit: Yes Status: Acute Code(s): N17.9 - ACUTE KIDNEY FAILURE, UNSPECIFIED SNOMED Code(s): 73888629 (2) Hyperkalemia Current Visit: Yes Status: Acute Code(s): E87.5 - HYPERKALEMIA SNOMED Code(s): 31198062 (3) Sigmoid diverticulitis Current Visit: No Status: Acute Code(s): K57.32 - DVTRCLI OF LG INT W/O PERFORATION OR ABSCESS W/O BLEEDING SNOMED Code(s): 436694422 (4) UTI (urinary tract infection) Current Visit: No Status: Acute Code(s): N39.0 - URINARY TRACT INFECTION, SITE NOT SPECIFIED SNOMED Code(s): 52029305
[2021-05-04] MEDS: metroNIDAZOLE 500 MG TAB PO SCH ×2 (16:20→21:21)
[2021-05-04 18:32] LABS: Glucose,Whole Blood 229 mg/dL (75-99)
--- NOTE | 2021-05-04 19:02 | P.PN ---
Subjective Progress Note Date: 05/04/21 (Delayed charting patient seen at 0845) Patient is a 70-year-old female with a complex past medical history including recent rectovesicular fistula requiring diverting colostomy, hypertension, dyslipidemia, and multiple other comorbid conditions who came today from her doctor's office due to elevated potassium. He recently had been started on Bactrim for urinary tract infection. In the ER she was found to have a potassium greater than 7, EKG without acute changes. In the ER she had a CT of the abdomen and pelvis showing an increasing size of her left psoas muscle abscess. Patient was given hyperkalemia cocktail and admitted to the ICU for close monitoring. She was started on vancomycin and Merrem due to allergies nad hx of ESBL. Infectious disease, pulmonary, and surgery were consulted. Patient seen and examined at bedside. She denies any chest pain or shortness of breath. She denies any abdominal pain at this time. She is feeling very tired. She is having urinary urgency. She denies significant weight loss, though patient looks quite thin compared to what I remember. General: Ill-appearing, no distress, appears at stated age Derm: warm, dry Head: atraumatic, normocephalic, symmetric Eyes: EOMI, no lid lag, anicteric sclera Mouth: no lip lesion, mucus membranes moist Cardiovascular: S1S2 reg, no murmur, positive posterior tibial pulse bilateral, Lungs: CTA bilateral, no rhonchi, no rales , no accessory muscle use, Abdominal: soft, nontender to palpation, no guarding, no appreciable organomegaly, colostomy bag in place with stool present Ext: no gross muscle atrophy, no edema, no contractures Neuro: CN II-XI grossly intact, no focal neuro deficits Psych: Alert, sleepy but when awake she is oriented., appropriate affect Left psoas muscle abscess with increasing size and worsening leukocytosis - Renetta and Navid - ID and IR consult - Surgery rects Hypkeralemia, Hyponatremia, JAVON - nephro recs - Hold nephrotoxic meds, spironolactone, lasix and lisinopril - off bactrmi - follow BMP closely - Monitor urine output - Cardiac monitoring Chronic anemia secondary to recurrent GI bleeding -Continue to monitor her stools, no sign of blood at this time -Slightly lower than baseline -No indication for transfusion Chronic conditions Hypertension- metoprolol currently controlled Hypothyroid- levothyroxine Diabetes mellitus- metformin on hold, insulin sliding scale, follow BS COPD with chronic hypoxic respiratory failure @ 3 L- Continue bronchdilators Depression resume antidepressants Objective - Vital Signs Vital signs: Vital Signs Temp 98.3 F 05/04/21 16:00 Pulse 64 05/04/21 18:00 Resp 13 05/04/21 18:00 BP 128/87 05/04/21 18:00 Pulse Ox 95 05/04/21 18:00 Intake & Output 05/03/21 05/04/21 05/04/21 18:59 06:59 18:59 Intake Total 500 1350 Output Total 40 Balance 500 1310 Weight 64.41 kg Intake: IV 1000 Sodium Chloride 0.9% 1, 1000 000 ml @ 75 mls/hr IV . [id number] KIET Rx#:[id number] Intake, IV Titration 500 100 Amount Meropenem 500 mg In 100 Sodium Chloride 0.9% 100 ml @ 33.3 mls/hr IVPB Q12H KIET Rx#:[id number] Sodium Chloride 0.9% 1, 400 100 000 ml @ 75 mls/hr IV . [id number] KIET Rx#:[id number] Oral 250 Output: Urine 40 Other: Voiding Method Diaper Diaper # Voids 1 1 # Bowel Movements 1 1 - Labs CBC & Chem 7: 05/04/21 02:23 05/04/21 16:30 Labs: Abnormal Lab Results - Last 24 Hours (Table) 05/03/21 05/03/21 05/03/21 Range/Units 09:58 21:44 21:44 WBC 12.6 H (3.8-10.6) k/uL RBC 2.41 L (3.80-5.40) m/uL Hgb 7.4 L (11.4-16.0) gm/dL Hct 23.7 L (34.0-46.0) % MCHC (31.0-37.0) g/dL Plt Count 487 H (150-450) k/uL Neutrophils # 10.5 H (1.3-7.7) k/uL Sodium 130 L (137-145) mmol/L Potassium 7.2 H* (3.5-5.1) mmol/L Carbon Dioxide (22-30) mmol/L BUN 54 H (7-17) mg/dL Creatinine 1.87 H (0.52-1.04) mg/dL Glucose 131 H (74-99) mg/dL POC Glucose (mg/dL) (75-99) mg/dL Calcium (8.4-10.2) mg/dL Alkaline Phosphatase 184 H (38-126) U/L Total Protein 6.1 L (6.3-8.2) g/dL Albumin 3.0 L (3.5-5.0) g/dL Urine Appearance Cloudy H (Clear) Urine Protein Trace H (Negative) Urine Blood Moderate H (Negative) Ur Leukocyte Esterase Large H (Negative) Urine RBC 15 H (0-5) /hpf Urine WBC >182 H (0-5) /hpf Urine WBC Clumps Many H (None) /hpf Urine Bacteria Occasional H (None) /hpf 05/03/21 05/04/21 05/04/21 Range/Units 23:02 01:23 02:23 WBC 15.9 H (3.8-10.6) k/uL RBC 2.33 L (3.80-5.40) m/uL Hgb 7.1 L (11.4-16.0) gm/dL Hct 23.2 L (34.0-46.0) % MCHC 30.8 L (31.0-37.0) g/dL Plt Count (150-450) k/uL Neutrophils # 13.3 H (1.3-7.7) k/uL Sodium (137-145) mmol/L Potassium (3.5-5.1) mmol/L Carbon Dioxide (22-30) mmol/L BUN (7-17) mg/dL Creatinine (0.52-1.04) mg/dL Glucose (74-99) mg/dL POC Glucose (mg/dL) 131 H 111 H (75-99) mg/dL Calcium (8.4-10.2) mg/dL Alkaline Phosphatase (38-126) U/L Total Protein (6.3-8.2) g/dL Albumin (3.5-5.0) g/dL Urine Appearance (Clear) Urine Protein (Negative) Urine Blood (Negative) Ur Leukocyte Esterase (Negative) Urine RBC (0-5) /hpf Urine WBC (0-5) /hpf Urine WBC Clumps (None) /hpf Urine Bacteria (None) /hpf 05/04/21 05/04/21 05/04/21 Range/Units 02:23 09:18 11:15 WBC (3.8-10.6) k/uL RBC (3.80-5.40) m/uL Hgb (11.4-16.0) gm/dL Hct (34.0-46.0) % MCHC (31.0-37.0) g/dL Plt Count (150-450) k/uL Neutrophils # (1.3-7.7) k/uL Sodium 130 L 134 L (137-145) mmol/L Potassium 6.0 H 6.2 H* (3.5-5.1) mmol/L Carbon Dioxide 21 L (22-30) mmol/L BUN 54 H 50 H (7-17) mg/dL Creatinine 1.76 H 1.65 H (0.52-1.04) mg/dL Glucose 110 H (74-99) mg/dL POC Glucose (mg/dL) 201 H (75-99) mg/dL Calcium 10.3 H (8.4-10.2) mg/dL Alkaline Phosphatase 180 H (38-126) U/L Total Protein 5.7 L (6.3-8.2) g/dL Albumin 2.8 L (3.5-5.0) g/dL Urine Appearance (Clear) Urine Protein (Negative) Urine Blood (Negative) Ur Leukocyte Esterase (Negative) Urine RBC (0-5) /hpf Urine WBC (0-5) /hpf Urine WBC Clumps (None) /hpf Urine Bacteria (None) /hpf 05/04/21 05/04/21 Range/Units 16:30 18:31 WBC (3.8-10.6) k/uL RBC (3.80-5.40) m/uL Hgb (11.4-16.0) gm/dL Hct (34.0-46.0) % MCHC (31.0-37.0) g/dL Plt Count (150-450) k/uL Neutrophils # (1.3-7.7) k/uL Sodium (137-145) mmol/L Potassium 5.6 H (3.5-5.1) mmol/L Carbon Dioxide (22-30) mmol/L BUN (7-17) mg/dL Creatinine (0.52-1.04) mg/dL Glucose (74-99) mg/dL POC Glucose (mg/dL) 229 H (75-99) mg/dL Calcium (8.4-10.2) mg/dL Alkaline Phosphatase (38-126) U/L Total Protein (6.3-8.2) g/dL Albumin (3.5-5.0) g/dL Urine Appearance (Clear) Urine Protein (Negative) Urine Blood (Negative) Ur Leukocyte Esterase (Negative) Urine RBC (0-5) /hpf Urine WBC (0-5) /hpf Urine WBC Clumps (None) /hpf Urine Bacteria (None) /hpf Microbiology - Last 24 Hours (Table) 05/03/21 09:58 Urine Culture - Preliminary Urine,Catheterized
[2021-05-04 20:54] LABS: Glucose,Whole Blood 223 mg/dL (75-99)
[2021-05-04] MEDS: CEFEPIME 2 GM in SODIUM CHLORIDE 0.9% 100 ML IVPB SCH (21:20)
[2021-05-04] MEDS: ARIPiprazole 5 MG TAB PO SCH (21:22)
[2021-05-04] MEDS: traZODone HCL 100 MG TAB PO PRN (21:46)
--- NOTE | 2021-05-04 22:30 | P.CONS ---
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 Klebsiella pneumonia for the patient completed almost 2 months of IV antibiotic therapy and was recently taken off the IV antibiotics patient currently was calling by her primary care physician that her potassium was over 7 and that she needs to go to the ER patient did complain of generalized feeling sick today but no other obvious symptoms no nausea no vomiting some lower abdominal pain that apparently started the day of presentation to the hospital has been mostly dull aching 3-4 out of 10 no radiation no fever or any chills with the symptom the patient was evaluated by the ER physician on arrival to the ER patient was afebrile and no fever has been recorded subsequently patient did have white count of 12 point 6 repeat is 15.9 BUN/creatinine was elevated pressure was six-point 2 repeat is 5.5 liver enzymes are normal did have a positive UA shane PCR was negative patient did have a CT of abdominal pelvis completed which did shows evidence of complex mass along the left iliac muscle consistent with a abscess apparently has slightly increased from the previous CAT scan patient has been admitted to ICU for treatment of underlying renal failure and sepsis the patient was started on meropenem and vancomycin infectious disease was consulted for further management of antibiotic therapy Review of system: CONSTITUTIONAL: Positive for weakness however denies fever. EYES: No complaint. ENT: No complaint. RESPIRATORY: No complaint. CARDIOVASCULAR: No complaint. GENITOURINARY: No complaint. GASTROINTESTINAL: As per history of present illness. MUSCULOSKELETAL: No complaint. INTEGUMENTARY: No complaint. PSYCHOLOGIC: No complaint. ENDOCRINE: No complaint. NEUROLOGIC: No complaint. Past medical history : Reviewed, documented below Past surgical history : Reviewed, documented below Social history: Reviewed, documented below Medications: Reviewed, as documented below EXAMINATION: Vital sigans= Reviewed and documented below GENERAL DESCRIPTION: Elderly female lying in bed, no distress. No tachypnea or accessory muscle of respiration use. HEENT: Shows Pallor , no scleral icterus. Oral mucous membrane is dry. NECK: Trachea central, no thyromegaly. LUNGS: Unlabored breathing. Decreased breath sound in the bases. No wheeze or crackle. HEART: S1, S2, regular rate and rhythm. ABDOMEN: Soft, midline incision is currently healed, no tenderness , guarding or rigidity EXTREMITIES: No edema of feet. SKIN: No rash, no masses palpable. NEUROLOGICAL: The patient is awake, alert, oriented x3, mood and affect normal. LABS AND RADIOLOGY: Reviewed results see below Assessment : Patient admitted to hospital with elevated potassium in this patient who did have evidence of renal insufficiency CT abdominal pelvis showing ileus was abscess in this patient who did have a history of complicated diverticulitis with a colovesical fistula requiring laparotomy drainage of the abdominal abscess at that time and the culture positive for VRE Klebsiella and Della glabrata for the patient has completed almost 2 months of IV antibiotic therapy in the outpatient setting Plan: 1-we will wait for the CT-guided drainage of this abscess fluid should be sent for culture both aerobic and anaerobic 2-discontinue vancomycin and meropenem 3-we will add cefepime and daptomycin and Flagyl on the basis of her previous cultures We will follow on clinical condition and cultures to further adjust medication if needed Thank you for this consultation we will follow the patient along with you Past Medical History Past Medical History: Asthma, Chest Pain / Angina, COPD, Diabetes Mellitus, Hyperlipidemia, Hypertension, Osteoarthritis (OA), Respiratory Disorder, Skin Disorder, Thyroid Disorder Additional Past Medical History / Comment(s): Obesity (BMI 35) COPD, asthma, diabetes , depression, 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 The patient is also a recently quit smoker. The patient has chronic back pain. History of Any Multi-Drug Resistant Organisms: VRE Year Discovered:: 02/18/21 MDRO Source:: Peritoneal Fluid-Abdominal Past Surgical History: Appendectomy, Bowel Resection, Section, Dorita cystectomy, Orthopedic Surgery, Tubal Ligation Additional Past Surgical History / Comment(s): LASER SX JETHRO EYES FOR GLAUCOMA. RT KNEE ARTHROSCOPY. UNDERWENT PERCUTANEOUS NEPHROSTOLITHOTOMY, colostomy Past Anesthesia/Blood Transfusion Reactions: No Reported Reaction Past Psychological History: Anxiety, Depression Smoking Status: Former smoker Past Alcohol Use History: None Reported Past Drug Use History: None Reported - Past Family History Mother Additional Family Medical History / Comment(s): emphysema, heart valve problems, in her slepp. Brother(s) Family Medical History: Cancer Additional Family Medical History / Comment(s): from oral cancer Father Brother(s) Family Medical History: Cancer Additional Family Medical History / Comment(s): heart disease Medications and Allergies Home Medications Medication Instructions Recorded Confirmed Type Zafirlukast [Accolate] 20 mg PO BID 02/06/14 05/03/21 History ARIPiprazole [Abilify] 5 mg PO HS 02/07/18 05/03/21 History metFORMIN HCL [Glucophage] 1,000 mg PO BID-W/MEALS 02/07/18 05/03/21 History Atorvastatin [Lipitor] 40 mg PO DAILY #30 tab 09/10/18 05/03/21 Rx Cholecalciferol [Vitamin D3 (25 1,000 unit PO DAILY 09/03/19 05/03/21 History Mcg = 1000 Iu)] Levothyroxine Sodium [Synthroid] 200 mcg PO DAILY 09/03/19 05/03/21 History Albuterol Sulfate [Ventolin HFA] 1 - 2 puff INHALATION RT-Q6H PRN 03/11/20 05/03/21 History Escitalopram [Lexapro] 20 mg PO DAILY 03/11/20 05/03/21 History Budesonide [Pulmicort] 1 mg INHALATION RT-BID ml 03/27/20 05/03/21 Rx Formoterol Fumarate [Perforomist] 20 mcg INHALATION RT-BID nebu 03/27/20 05/03/21 Rx HYDROcodone/APAP 7.5-325MG [[place] 1 tab PO Q6H PRN #12 tab 03/27/20 05/03/21 Rx 7.5-325] Ipratropium-Albuterol Nebulize 3 ml INHALATION RT-Q2H PRN ml 03/27/20 05/03/21 Rx [Duoneb 0.5 mg-3 mg/3 ml Soln] Pantoprazole Sodium [Protonix] 40 mg PO BID #60 tablet.dr 03/27/20 05/03/21 Rx Furosemide [Lasix] 40 mg PO DAILY 04/27/20 05/03/21 History traZODone HCL 100 mg PO HS PRN 05/15/20 05/03/21 History Spironolactone [Aldactone] 12.5 mg PO DAILY #30 tab 12/27/20 05/03/21 Rx Magnesium Oxide [Mag-Ox] 400 mg PO DAILY 01/21/21 05/03/21 History Metoprolol Succinate (ER) [Toprol 50 mg PO DAILY #30 tab 02/23/21 05/03/21 Rx Xl] Lidocaine 5% Patch [Lidoderm 5% 1 patch TRANSDERM Q12H PRN 05/03/21 05/03/21 History Patch] Lisinopril [Zestril] 10 mg PO DAILY 05/03/21 05/03/21 History Oxybutynin Xl [Ditropan XL] 5 mg PO TID 05/03/21 05/03/21 History Sulfamethox-Tmp 800-160Mg [Bactrim 1 tab PO Q12H 05/03/21 05/03/21 History DS 800-160 mg] Allergies Allergy/AdvReac Type Severity Reaction Status Date / Time adhesive Allergy Rash/Hives Verified 05/03/21 22:08 ciprofloxacin [From Cipro] Allergy Rash/Hives Verified 05/03/21 22:08 ciprofloxacin HCl Allergy Rash/Hives Verified 05/03/21 22:08 [From Cipro] latex Allergy Rash/Hives Verified 05/03/21 22:08 levofloxacin [From Levaquin] Allergy Rash/Hives Verified 05/03/21 22:08 nitrofurantoin Allergy Rash/Hives Verified 05/03/21 22:08 [From Macrobid] nitrofurantoin Allergy Rash/Hives Verified 05/03/21 22:08 macrocrystalline [From Macrobid] Penicillins Allergy Rash/Hives Verified 05/03/21 22:08 propoxyphene HCl Allergy Rash/Hives Verified 05/03/21 22:08 [From Darvon] propoxyphene napsylate Allergy Unknown Verified 05/03/21 22:08 [From Darvocet-N] Physical Exam Vitals: Vital Signs Temp Pulse Resp BP Pulse Ox 05/04/21 14:00 63 22 115/35 95 05/04/21 13:00 66 19 102/31 95 05/04/21 12:00 98.2 F 81 20 88/48 95 05/04/21 11:00 67 24 110/98 92 L 05/04/21 10:00 84 13 134/50 92 L 05/04/21 09:00 84 15 96/34 95 05/04/21 08:44 72 05/04/21 08:00 98.3 F 71 16 131/45 92 L 05/04/21 07:00 68 17 121/45 93 L 05/04/21 06:00 71 17 93/38 92 L 05/04/21 05:00 81 20 102/54 90 L 05/04/21 04:00 98.7 F 93 16 95/40 91 L 05/04/21 03:20 93 13 90 L 05/04/21 03:10 95 18 90 L 05/04/21 03:00 97 18 107/60 91 L 05/04/21 02:50 98 19 91 L 05/04/21 02:40 98 19 91 L 05/04/21 02:30 100 20 91 L 05/04/21 02:20 98 18 90 L 05/04/21 02:10 98 20 91 L 05/04/21 02:00 99 19 91 L 05/04/21 01:50 98 18 92 L 05/04/21 01:40 96 13 90 L 05/04/21 01:30 95 14 135/42 90 L 05/03/21 20:47 97.9 F 66 18 105/54 95 Intake and Output 05/03/21 05/04/21 05/04/21 22:59 06:59 14:59 Intake Total 500 850 Output Total 40 Balance 500 810 Intake: IV 500 Sodium Chloride 0.9% 1, 500 000 ml @ 75 mls/hr IV . [id number] KIET Rx#:[id number] Intake, IV Titration 500 100 Amount Meropenem 500 mg In 100 Sodium Chloride 0.9% 100 ml @ 33.3 mls/hr IVPB Q12H KIET Rx#:[id number] Sodium Chloride 0.9% 1, 400 100 000 ml @ 75 mls/hr IV . [id number] KIET Rx#:[id number] Oral 250 Output: Urine 40 Other: Voiding Method Diaper # Voids 1 1 # Bowel Movements 1 1 Weight 64.41 kg 64.41 kg Results CBC & Chem 7: 05/04/21 02:23 05/04/21 21:00 Labs: Abnormal Lab Results - Last 24 Hours (Table) 05/03/21 05/03/21 05/03/21 Range/Units 09:58 21:44 21:44 WBC 12.6 H (3.8-10.6) k/uL RBC 2.41 L (3.80-5.40) m/uL Hgb 7.4 L (11.4-16.0) gm/dL Hct 23.7 L (34.0-46.0) % MCHC (31.0-37.0) g/dL Plt Count 487 H (150-450) k/uL Neutrophils # 10.5 H (1.3-7.7) k/uL Sodium 130 L (137-145) mmol/L Potassium 7.2 H* (3.5-5.1) mmol/L Carbon Dioxide (22-30) mmol/L BUN 54 H (7-17) mg/dL Creatinine 1.87 H (0.52-1.04) mg/dL Glucose 131 H (74-99) mg/dL POC Glucose (mg/dL) (75-99) mg/dL Calcium (8.4-10.2) mg/dL Alkaline Phosphatase 184 H (38-126) U/L Total Protein 6.1 L (6.3-8.2) g/dL Albumin 3.0 L (3.5-5.0) g/dL Urine Appearance Cloudy H (Clear) Urine Protein Trace H (Negative) Urine Blood Moderate H (Negative) Ur Leukocyte Esterase Large H (Negative) Urine RBC 15 H (0-5) /hpf Urine WBC >182 H (0-5) /hpf Urine WBC Clumps Many H (None) /hpf Urine Bacteria Occasional H (None) /hpf 05/03/21 05/04/21 05/04/21 Range/Units 23:02 01:23 02:23 WBC 15.9 H (3.8-10.6) k/uL RBC 2.33 L (3.80-5.40) m/uL Hgb 7.1 L (11.4-16.0) gm/dL Hct 23.2 L (34.0-46.0) % MCHC 30.8 L (31.0-37.0) g/dL Plt Count (150-450) k/uL Neutrophils # 13.3 H (1.3-7.7) k/uL Sodium (137-145) mmol/L Potassium (3.5-5.1) mmol/L Carbon Dioxide (22-30) mmol/L BUN (7-17) mg/dL Creatinine (0.52-1.04) mg/dL Glucose (74-99) mg/dL POC Glucose (mg/dL) 131 H 111 H (75-99) mg/dL Calcium (8.4-10.2) mg/dL Alkaline Phosphatase (38-126) U/L Total Protein (6.3-8.2) g/dL Albumin (3.5-5.0) g/dL Urine Appearance (Clear) Urine Protein (Negative) Urine Blood (Negative) Ur Leukocyte Esterase (Negative) Urine RBC (0-5) /hpf Urine WBC (0-5) /hpf Urine WBC Clumps (None) /hpf Urine Bacteria (None) /hpf 05/04/21 05/04/21 05/04/21 Range/Units 02:23 09:18 11:15 WBC (3.8-10.6) k/uL RBC (3.80-5.40) m/uL Hgb (11.4-16.0) gm/dL Hct (34.0-46.0) % MCHC (31.0-37.0) g/dL Plt Count (150-450) k/uL Neutrophils # (1.3-7.7) k/uL Sodium 130 L 134 L (137-145) mmol/L Potassium 6.0 H 6.2 H* (3.5-5.1) mmol/L Carbon Dioxide 21 L (22-30) mmol/L BUN 54 H 50 H (7-17) mg/dL Creatinine 1.76 H 1.65 H (0.52-1.04) mg/dL Glucose 110 H (74-99) mg/dL POC Glucose (mg/dL) 201 H (75-99) mg/dL Calcium 10.3 H (8.4-10.2) mg/dL Alkaline Phosphatase 180 H (38-126) U/L Total Protein 5.7 L (6.3-8.2) g/dL Albumin 2.8 L (3.5-5.0) g/dL Urine Appearance (Clear) Urine Protein (Negative) Urine Blood (Negative) Ur Leukocyte Esterase (Negative) Urine RBC (0-5) /hpf Urine WBC (0-5) /hpf Urine WBC Clumps (None) /hpf Urine Bacteria (None) /hpf
[2021-05-05] MEDS: SODIUM CHLORIDE 0.9% 1,000 ML IV SCH (03:53)
[2021-05-05 06:12] LABS: Glucose,Whole Blood 135 mg/dL (75-99)
[2021-05-05] MEDS: INSULIN ASPART (NovoLOG) 100 UNIT/ML VIAL SQ SCH ×4 (06:29→20:52)
[2021-05-05] MEDS: LEVOTHYROXINE 100 MCG TAB PO SCH (06:29)
[2021-05-05 06:47] LABS: HCT 20.4 % (34.0-46.0); Hypochromasia Slight; MCH 31.3 pg (25.0-35.0); MCV 97.8 fL (80.0-100.0); Mean Platelet Volume 6.9; Platelet Count 428 k/uL (150-450); Poikilocytosis Slight; RBC 2.09 m/uL (3.80-5.40); WBC 12.4 k/uL (3.8-10.6)
[2021-05-05 06:50] LABS: Calcium 9.2 mg/dL (8.4-10.2); Magnesium 1.4 mg/dL (1.6-2.3); Potassium 5.7 mmol/L (3.5-5.1)
[2021-05-05 06:56] LABS: HGB 6.5 gm/dL (11.4-16.0)
[2021-05-05] MEDS: HYDROcodone/APAP 7.5-325MG 1 EACH TAB PO PRN ×3 (06:56→20:53)
[2021-05-05] MEDS: BUDESONIDE 1 MG/2 ML NEBU INHALATION SCH ×2 (07:48→19:57)
[2021-05-05] MEDS: FORMOTEROL FUMARATE 20 MCG/2 ML NEBU INHALATION SCH ×2 (07:48→19:57)
[2021-05-05] MEDS: IPRATROPIUM-ALBUTEROL 3 ML NEB INHALATION SCH ×4 (07:49→19:57)
[2021-05-05] MEDS ORDERED: FUROSEMIDE 10 MG/ML 4 ML VIAL IV PRN (07:53)
[2021-05-05] MEDS ORDERED: VANCOMYCIN 1,250 MG in SODIUM CHLORIDE 0.9% 250 ML IVPB ONE (08:00)
[2021-05-05 08:36] LABS: Glucose,Whole Blood 138 mg/dL (75-99)
[2021-05-05] MEDS ORDERED: DEXTROSE 50% SYRINGE 50 ML IVP STA (08:40)
[2021-05-05] MEDS ORDERED: INSULIN REGULAR 100 UNIT/ML VIAL (IV) IV ONE (08:40)
--- NOTE | 2021-05-05 08:44 | P.PN ---
Subjective Patient is seen in follow-up for acute kidney injury and hyperkalemia. Renal function better. Potassium level 5.7 this morning. No chest pain or shortness of breath. No vomiting or diarrhea. Vital signs are stable. General: The patient appeared well nourished and normally developed. HEENT: Head exam is unremarkable. LUNGS: Breath sounds decreased. HEART: Rate and Rhythm are regular. ABDOMEN: Soft, no distention. EXTREMITITES: No edema. Objective - Vital Signs Vital signs: Vital Signs Temp 99 F 05/05/21 03:55 Pulse 68 05/05/21 08:10 Resp 16 05/05/21 03:55 BP 119/57 05/05/21 03:55 Pulse Ox 98 05/05/21 03:55 Intake & Output 05/04/21 05/05/21 05/05/21 18:59 06:59 18:59 Intake Total 1350 400 Output Total 40 Balance 1310 400 Weight 69.5 kg Intake: IV 1000 400 Sodium Chloride 0.9% 1, 1000 400 000 ml @ 75 mls/hr IV . [id number] KIET Rx#:[id number] Intake, IV Titration 100 Amount Sodium Chloride 0.9% 1, 100 000 ml @ 75 mls/hr IV . [id number] KIET Rx#:[id number] Oral 250 Output: Urine 40 Other: Voiding Method Diaper Diaper # Voids 1 1 # Bowel Movements 1 1 - Labs CBC & Chem 7: 05/05/21 06:04 05/05/21 06:04 Labs: Abnormal Lab Results - Last 24 Hours (Table) 05/03/21 05/04/21 05/04/21 Range/Units 09:58 09:18 11:15 WBC (3.8-10.6) k/uL RBC (3.80-5.40) m/uL Hgb (11.4-16.0) gm/dL Hct (34.0-46.0) % Sodium 134 L (137-145) mmol/L Potassium 6.2 H* (3.5-5.1) mmol/L BUN 50 H (7-17) mg/dL Creatinine 1.65 H (0.52-1.04) mg/dL Glucose (74-99) mg/dL POC Glucose (mg/dL) 201 H (75-99) mg/dL Calcium 10.3 H (8.4-10.2) mg/dL Magnesium (1.6-2.3) mg/dL Urine Appearance Cloudy H (Clear) Urine Protein Trace H (Negative) Urine Blood Moderate H (Negative) Ur Leukocyte Esterase Large H (Negative) Urine RBC 15 H (0-5) /hpf Urine WBC >182 H (0-5) /hpf Urine WBC Clumps Many H (None) /hpf Urine Bacteria Occasional H (None) /hpf 05/04/21 05/04/21 05/04/21 Range/Units 16:30 18:31 20:53 WBC (3.8-10.6) k/uL RBC (3.80-5.40) m/uL Hgb (11.4-16.0) gm/dL Hct (34.0-46.0) % Sodium (137-145) mmol/L Potassium 5.6 H (3.5-5.1) mmol/L BUN (7-17) mg/dL Creatinine (0.52-1.04) mg/dL Glucose (74-99) mg/dL POC Glucose (mg/dL) 229 H 223 H (75-99) mg/dL Calcium (8.4-10.2) mg/dL Magnesium (1.6-2.3) mg/dL Urine Appearance (Clear) Urine Protein (Negative) Urine Blood (Negative) Ur Leukocyte Esterase (Negative) Urine RBC (0-5) /hpf Urine WBC (0-5) /hpf Urine WBC Clumps (None) /hpf Urine Bacteria (None) /hpf 05/04/21 05/05/21 05/05/21 Range/Units 21:00 06:04 06:04 WBC 12.4 H (3.8-10.6) k/uL RBC 2.09 L (3.80-5.40) m/uL Hgb 6.5 L* (11.4-16.0) gm/dL Hct 20.4 L (34.0-46.0) % Sodium 132 L (137-145) mmol/L Potassium 5.5 H 5.7 H (3.5-5.1) mmol/L BUN 38 H (7-17) mg/dL Creatinine 1.06 H (0.52-1.04) mg/dL Glucose 125 H (74-99) mg/dL POC Glucose (mg/dL) (75-99) mg/dL Calcium (8.4-10.2) mg/dL Magnesium 1.4 L (1.6-2.3) mg/dL Urine Appearance (Clear) Urine Protein (Negative) Urine Blood (Negative) Ur Leukocyte Esterase (Negative) Urine RBC (0-5) /hpf Urine WBC (0-5) /hpf Urine WBC Clumps (None) /hpf Urine Bacteria (None) /hpf 05/05/21 05/05/21 Range/Units 06:11 08:35 WBC (3.8-10.6) k/uL RBC (3.80-5.40) m/uL Hgb (11.4-16.0) gm/dL Hct (34.0-46.0) % Sodium (137-145) mmol/L Potassium (3.5-5.1) mmol/L BUN (7-17) mg/dL Creatinine (0.52-1.04) mg/dL Glucose (74-99) mg/dL POC Glucose (mg/dL) 135 H 138 H (75-99) mg/dL Calcium (8.4-10.2) mg/dL Magnesium (1.6-2.3) mg/dL Urine Appearance (Clear) Urine Protein (Negative) Urine Blood (Negative) Ur Leukocyte Esterase (Negative) Urine RBC (0-5) /hpf Urine WBC (0-5) /hpf Urine WBC Clumps (None) /hpf Urine Bacteria (None) /hpf Microbiology - Last 24 Hours (Table) 05/04/21 03:58 Blood Culture - Preliminary Blood No Growth after 24 hours 05/03/21 09:58 Urine Culture - Preliminary Urine,Catheterized Assessment and Plan Plan: Assessment: 1. Acute kidney injury secondary to ATN secondary to infection as well as Bactrim which can impair creatinine secretion. Baseline creatinine is near 1 and was 1.87 on admission. 1.06 today. No hydronephrosis noted. 2. UTI on antibiotics. 3. Hyperkalemia secondary to acute kidney injury, lisinopril, spironolactone and Bactrim. Improved with medical management. 4. Hypovolemic hyponatremia improved with IV hydration. Stable. 5. Acute blood loss anemia. Receiving a unit of blood today. 6. Diabetes mellitus. 7. Left psoas muscle abscess. On antibiotics. Drainage pending. 8. Chronic diastolic CHF with moderate MR and TR. 9. Chronic sigmoid diverticulitis with colovesical fistula status post colostomy and Rico's procedure in February 2021. 10. Hypomagnesemia from poor intake. Plan: Hep-Lock IV fluids. Scheduled to receive a unit of blood today and IV last post-transfusion. Repeat IV insulin with an amp of D50 now. Repeat potassium level this afternoon. Avoid nephrotoxins. Continue to monitor renal function and urine output. Replace magnesium.
[2021-05-05] MEDS: CEFEPIME 2 GM in SODIUM CHLORIDE 0.9% 100 ML IVPB SCH ×2 (08:47→20:51)
[2021-05-05] MEDS: OXYBUTYNIN XL 5 MG TAB.ER.24 PO SCH ×3 (08:47→20:53)
[2021-05-05] MEDS: ESCITALOPRAM 20 MG TAB PO SCH (08:47)
[2021-05-05] MEDS: PANTOPRAZOLE 40 MG TABLET PO SCH ×2 (08:47→20:52)
[2021-05-05] MEDS: METOPROLOL SUCCINATE (ER) 50 MG TAB.ER.24H PO SCH (08:47)
[2021-05-05] MEDS: ATORVASTATIN 40 MG TAB PO SCH (08:47)
[2021-05-05] MEDS: metroNIDAZOLE 500 MG TAB PO SCH ×3 (08:47→20:52)
[2021-05-05] MEDS: MONTELUKAST 10 MG TAB PO SCH (08:53)
[2021-05-05] MEDS: MAGNESIUM SULFATE-D5W PMX 1 GM in DEXTROSE/WATER 1 100ML.BAG IVPB SCH ×2 (10:31→11:52)
--- NOTE | 2021-05-05 10:56 | P.PN ---
<ToroshaiLucretia - Last Filed: 05/05/21 10:50> Subjective Progress Note Date: 05/05/21 CHIEF COMPLAINT: Hyperkalemia HISTORY OF PRESENT ILLNESS: Surgical service is following patient for a left psoas muscle abscess. Patient is scheduled to have CT-guided drainage with interventional radiology today. Patient admitted to the hospital with acute kidney injury and hyperkalemia. This is being corrected by nephrology. Her hemoglobin did drop to 6.5 and she is receiving 1 unit of blood. No active bleeding reported. Afebrile. WBC 12.4 down from 15.9 hemoglobin is down from 7.1-6.5 sodium 132 potassium is 5.7 creatinine 1.06 patient denies any new abdominal pain. Denies any nausea or vomiting. Patient was transferred out of the ICU yesterday. PHYSICAL EXAM: VITAL SIGNS: Reviewed GENERAL: Well-developed in no acute distress. HEENT: No sclera icterus. Extraocular movements grossly intact. Moist buccal mucosa. Head is atraumatic, normocephalic. Hears conversational speech. No nasal drainage. NECK: Supple without lymphadenopathy. CHEST: Non-labored respirations and equal bilateral excursions. CARDIOVASCULAR: Palpable 2+ radial pulses. ABDOMEN: Soft. Nondistended. Nontender. MUSCULOSKELETAL: No clubbing or cyanosis. NEUROLOGIC: No focal or lateralizing signs. Cranial nerves II through XII grossly intact. PSYCH: Appropriate affect. Alert and oriented to person, place and time. SKIN: Well perfused. Good skin turgor. ASSESSMENT: 1. Left psoas muscle abscess that has increased in size 2. Chronic sigmoid diverticulitis with a colovesical fistula she is status post ascending colostomy creation with Rico's procedure on 02/18/2021 3. Acute kidney injury 4. Hyperkalemia 5. Diabetes mellitus 6. History of iron deficiency anemia 7. History of moderate aortic stenosis with mild pulmonary hypertension 8. History of hypertensive heart disease PLAN: -Awaiting CT-guided drainage of left psoas muscle abscess by IR -Continue antibiotics per ID -Hyperkalemia and acute kidney injury managed by nephrology -Patient is scheduled to receive 1 unit of blood for hemoglobin of 6.5 -Magnesium being replaced Physician Environmental Services Director note has been reviewed by physician. Signing provider agrees with the documented findings, assessment, and plan of care. Objective - Vital Signs Vital signs: Vital Signs Temp 98.2 F 05/05/21 08:36 Pulse 71 05/05/21 08:36 Resp 16 05/05/21 08:36 BP 107/51 05/05/21 08:36 Pulse Ox 95 05/05/21 08:36 Intake & Output 05/04/21 05/05/21 05/05/21 18:59 06:59 18:59 Intake Total 1350 400 Output Total 40 Balance 1310 400 Weight 69.5 kg Intake: IV 1000 400 Sodium Chloride 0.9% 1, 1000 400 000 ml @ 75 mls/hr IV . [id number] [facility] Rx#:[id number] Intake, IV Titration 100 Amount Sodium Chloride 0.9% 1, 100 000 ml @ 75 mls/hr IV . [id number] [facility] Rx#:[id number] Oral 250 Output: Urine 40 Other: Voiding Method Diaper Diaper # Voids 1 1 # Bowel Movements 1 1 - Labs CBC & Chem 7: 05/05/21 06:04 05/05/21 06:04 Labs: Abnormal Lab Results - Last 24 Hours (Table) 05/04/21 05/04/21 05/04/21 Range/Units 11:15 16:30 18:31 WBC (3.8-10.6) k/uL RBC (3.80-5.40) m/uL Hgb (11.4-16.0) gm/dL Hct (34.0-46.0) % Sodium (137-145) mmol/L Potassium 5.6 H (3.5-5.1) mmol/L BUN (7-17) mg/dL Creatinine (0.52-1.04) mg/dL Glucose (74-99) mg/dL POC Glucose (mg/dL) 201 H 229 H (75-99) mg/dL Magnesium (1.6-2.3) mg/dL 05/04/21 05/04/21 05/05/21 Range/Units 20:53 21:00 06:04 WBC (3.8-10.6) k/uL RBC (3.80-5.40) m/uL Hgb (11.4-16.0) gm/dL Hct (34.0-46.0) % Sodium 132 L (137-145) mmol/L Potassium 5.5 H 5.7 H (3.5-5.1) mmol/L BUN 38 H (7-17) mg/dL Creatinine 1.06 H (0.52-1.04) mg/dL Glucose 125 H (74-99) mg/dL POC Glucose (mg/dL) 223 H (75-99) mg/dL Magnesium 1.4 L (1.6-2.3) mg/dL 05/05/21 05/05/21 05/05/21 Range/Units 06:04 06:11 08:35 WBC 12.4 H (3.8-10.6) k/uL RBC 2.09 L (3.80-5.40) m/uL Hgb 6.5 L* (11.4-16.0) gm/dL Hct 20.4 L (34.0-46.0) % Sodium (137-145) mmol/L Potassium (3.5-5.1) mmol/L BUN (7-17) mg/dL Creatinine (0.52-1.04) mg/dL Glucose (74-99) mg/dL POC Glucose (mg/dL) 135 H 138 H (75-99) mg/dL Magnesium (1.6-2.3) mg/dL Microbiology - Last 24 Hours (Table) 05/04/21 03:58 Blood Culture - Preliminary Blood No Growth after 24 hours 05/03/21 09:58 Urine Culture - Preliminary Urine,Catheterized <Ban Velazquez N - Last Filed: 05/06/21 07:57> Subjective As above. Please see additional documentation below. CHIEF COMPLAINT: Complicated sigmoid diverticulitis HISTORY OF PRESENT ILLNESS: The patient is a 70 year old female with pre- existing complicated sigmoid diverticulitis. Patient was reevaluated with failed attempted CT-guided drainage of iliopsoas abscess. is at bedside. Patient is wants to go home. No sepsis. Patient was treated for hemoglobin less than 7.0 blood transfusion. REVIEW OF ORGAN SYSTEMS: No chest pain. Denies fevers or chills. No signs of bleeding. PHYSICAL EXAM: VITALS: Reviewed CONSTITUTIONAL: Well developed and in no acute distress. EYES: Conjuctivae without sclera icterus. Extraocular movements grossly intact. HEAD, EARS, NOSE, THROAT: Moist buccal mucosa. Head is atraumatic, normocephalic. Hears conversational speech. No nasal drainage. RESPIRATORY: Non-labored respirations and equal bilateral excursions. CARDIOVASCULAR: 2+ radial pulses. ABDOMEN: Ostomy is viable and pink. No peritonitis. MUSCULOSKELETAL: Nail and fingers with good capillary refill. SKIN: Warm and well perfused with good skin turgor. NEUROLOGIC: Cranial nerves II through XII grossly intact. No focal or lateralizing signs. PSYCH: Appropriate affect. Alert and oriented to person, place and time. Displays appropriate insight. CLINCAL LABS: Reviewed. WBC down to 12.4 ASSESSMENT: 1. Complicated sigmoid diverticulitis with colovesical fistula 2. Hyperkalemia 3. Abscess of left iliopsoas PLAN: 1. Patient reports that her pre-existing abdominal pain and stable. Otherwise no current sepsis. 2. Per patient request, she would like to go home. Surgical intervention deferred at this time Objective - Vital Signs Vital signs: Vital Signs Temp 98.1 F 05/05/21 16:58 Pulse 72 05/05/21 16:58 Resp 16 05/05/21 16:58 BP 131/51 05/05/21 16:58 Pulse Ox 98 05/05/21 16:58 Intake & Output 05/05/21 05/05/21 05/06/21 06:59 18:59 06:59 Intake Total 400 310 Balance 400 310 Weight 69.5 kg Intake: IV 400 Sodium Chloride 0.9% 1, 400 000 ml @ 75 mls/hr IV . [id number] [facility] Rx#:[id number] Blood Product 310 Rc Irr As1 Unit 310 [id number] Other: Voiding Method Diaper Diaper # Voids 1 3 # Bowel Movements 1 - Labs CBC & Chem 7: 05/05/21 06:04 05/05/21 15:28 Labs: Abnormal Lab Results - Last 24 Hours (Table) 05/04/21 05/04/21 05/05/21 Range/Units 20:53 21:00 06:04 WBC (3.8-10.6) k/uL RBC (3.80-5.40) m/uL Hgb (11.4-16.0) gm/dL Hct (34.0-46.0) % Sodium 132 L (137-145) mmol/L Potassium 5.5 H 5.7 H (3.5-5.1) mmol/L BUN 38 H (7-17) mg/dL Creatinine 1.06 H (0.52-1.04) mg/dL Glucose 125 H (74-99) mg/dL POC Glucose (mg/dL) 223 H (75-99) mg/dL Magnesium 1.4 L (1.6-2.3) mg/dL Crossmatch 05/05/21 05/05/21 05/05/21 Range/Units 06:04 06:11 08:30 WBC 12.4 H (3.8-10.6) k/uL RBC 2.09 L (3.80-5.40) m/uL Hgb 6.5 L* (11.4-16.0) gm/dL Hct 20.4 L (34.0-46.0) % Sodium (137-145) mmol/L Potassium (3.5-5.1) mmol/L BUN (7-17) mg/dL Creatinine (0.52-1.04) mg/dL Glucose (74-99) mg/dL POC Glucose (mg/dL) 135 H (75-99) mg/dL Magnesium (1.6-2.3) mg/dL Crossmatch See Detail 05/05/21 05/05/21 05/05/21 Range/Units 08:35 11:44 16:36 WBC (3.8-10.6) k/uL RBC (3.80-5.40) m/uL Hgb (11.4-16.0) gm/dL Hct (34.0-46.0) % Sodium (137-145) mmol/L Potassium (3.5-5.1) mmol/L BUN (7-17) mg/dL Creatinine (0.52-1.04) mg/dL Glucose (74-99) mg/dL POC Glucose (mg/dL) 138 H 229 H 214 H (75-99) mg/dL Magnesium (1.6-2.3) mg/dL Crossmatch Microbiology - Last 24 Hours (Table) 05/03/21 09:58 Urine Culture - Final Urine,Catheterized Non Hemolytic Strep 05/04/21 03:58 Blood Culture - Preliminary Blood No Growth after 24 hours Assessment and Plan (1) Acute kidney injury Current Visit: Yes Status: Acute Code(s): N17.9 - ACUTE KIDNEY FAILURE, UNSPECIFIED SNOMED Code(s): 96315064 (2) Hyperkalemia Current Visit: Yes Status: Acute Code(s): E87.5 - HYPERKALEMIA SNOMED Code(s): 91414821 (3) Sigmoid diverticulitis Current Visit: No Status: Acute Code(s): K57.32 - DVTRCLI OF LG INT W/O PERFORATION OR ABSCESS W/O BLEEDING SNOMED Code(s): 385811368 (4) UTI (urinary tract infection) Current Visit: No Status: Acute Code(s): N39.0 - URINARY TRACT INFECTION, SITE NOT SPECIFIED SNOMED Code(s): 52094116
[2021-05-05 11:46] LABS: Glucose,Whole Blood 229 mg/dL (75-99)
--- NOTE | 2021-05-05 13:38 | P.PN ---
Subjective Progress Note Date: 05/05/21 Principal diagnosis: Hyperkalemia secondary to acute kidney injury and sepsis with left psoas abscess. This is a very pleasant 70-year-old female patient with a known history of h ypothyroidism, hyperlipidemia, depression, COPD, diabetes mellitus, hypertension. She had recently undergone bowel resection with diverting colostomy with a known left psoas abscess. She was having follow-up outpatient labs revealed a potassium of greater than 7 and she was directed to the emergen cy room for the same. She was found to be hyperkalemic with acute kidney injury and underlying sepsis. Computed tomography scan of the abdomen revealed a psoas abscess on the left. She was initiated on vancomycin and meropenem. She was in the intensive care unit due to the hyperkalemia. Most recent potassium level is 6.0. She has 0.9 normal saline at 100 ML's per hour. She is maintaining good O2 saturations in the 90s on 3 L/m per nasal cannula. Her CoVID screen was negative. She is seen today in consultation. She is currently resting fairly comfortably in bed. Awake, alert. White count 15.9. Hemoglobin 7.1. Sodium 130. Potassium 6.0. Bicarb 21. BUN 54. Creatinine 1.76. Glucose 110. Reevaluated today on 05/05/2021, patient is now on selective units bed, sitting at a bedside chair, seems to be quite comfortable, patient is scheduled to have left psoas abscess drainage by interventional radiology hemoglobin today is 6.5, patient is being transfused with 1 unit of packed RBCs. Potassium is back again to 5.7. BUN is 38 creatinine 1.06, patient is relatively asymptomatic. Denies any shortness of breath no cough no wheezing no chest pain and she even denies abdominal pain. Colostomy seems to be functional. Objective - Vital Signs Vital signs: Vital Signs Temp 98.2 F 05/05/21 08:36 Pulse 71 05/05/21 11:29 Resp 16 05/05/21 11:29 BP 116/50 05/05/21 11:29 Pulse Ox 95 05/05/21 11:29 Intake & Output 05/04/21 05/05/21 05/05/21 18:59 06:59 18:59 Intake Total 1350 400 Output Total 40 Balance 1310 400 Weight 69.5 kg Intake: IV 1000 400 Sodium Chloride 0.9% 1, 1000 400 000 ml @ 75 mls/hr IV . [id number] [facility] Rx#:[id number] Intake, IV Titration 100 Amount Sodium Chloride 0.9% 1, 100 000 ml @ 75 mls/hr IV . [id number] [facility] Rx#:[id number] Oral 250 Output: Urine 40 Other: Voiding Method Diaper Diaper # Voids 1 1 # Bowel Movements 1 1 - Exam GENERAL: Revealed a 70-year-old female in no distress. HEENT: PERRLA, EOMI, anicteric, no neck masses, no JVD, Head is atraumatic, normocephalic. CHEST: Symmetrical chest expansion clear breath sound bilaterally no rhonchi and no wheezes CARDIOVASCULAR: Normal S1 and S2, no S3 gallop. No murmur. ABDOMEN: Soft nontender no megaly no rebound no guarding. MUSCULOSKELETAL: No clubbing edema or cyanosis. NEUROLOGIC: Alert and oriented 3. No focal deficits PSYCH: Appropriate affect. Alert and oriented to person, place and time. SKIN: No rashes. - Labs CBC & Chem 7: 05/05/21 06:04 05/05/21 06:04 Labs: Abnormal Lab Results - Last 24 Hours (Table) 05/04/21 05/04/21 05/04/21 Range/Units 16:30 18:31 20:53 WBC (3.8-10.6) k/uL RBC (3.80-5.40) m/uL Hgb (11.4-16.0) gm/dL Hct (34.0-46.0) % Sodium (137-145) mmol/L Potassium 5.6 H (3.5-5.1) mmol/L BUN (7-17) mg/dL Creatinine (0.52-1.04) mg/dL Glucose (74-99) mg/dL POC Glucose (mg/dL) 229 H 223 H (75-99) mg/dL Magnesium (1.6-2.3) mg/dL Crossmatch 05/04/21 05/05/21 05/05/21 Range/Units 21:00 06:04 06:04 WBC 12.4 H (3.8-10.6) k/uL RBC 2.09 L (3.80-5.40) m/uL Hgb 6.5 L* (11.4-16.0) gm/dL Hct 20.4 L (34.0-46.0) % Sodium 132 L (137-145) mmol/L Potassium 5.5 H 5.7 H (3.5-5.1) mmol/L BUN 38 H (7-17) mg/dL Creatinine 1.06 H (0.52-1.04) mg/dL Glucose 125 H (74-99) mg/dL POC Glucose (mg/dL) (75-99) mg/dL Magnesium 1.4 L (1.6-2.3) mg/dL Crossmatch 05/05/21 05/05/21 05/05/21 Range/Units 06:11 08:30 08:35 WBC (3.8-10.6) k/uL RBC (3.80-5.40) m/uL Hgb (11.4-16.0) gm/dL Hct (34.0-46.0) % Sodium (137-145) mmol/L Potassium (3.5-5.1) mmol/L BUN (7-17) mg/dL Creatinine (0.52-1.04) mg/dL Glucose (74-99) mg/dL POC Glucose (mg/dL) 135 H 138 H (75-99) mg/dL Magnesium (1.6-2.3) mg/dL Crossmatch See Detail 05/05/21 Range/Units 11:44 WBC (3.8-10.6) k/uL RBC (3.80-5.40) m/uL Hgb (11.4-16.0) gm/dL Hct (34.0-46.0) % Sodium (137-145) mmol/L Potassium (3.5-5.1) mmol/L BUN (7-17) mg/dL Creatinine (0.52-1.04) mg/dL Glucose (74-99) mg/dL POC Glucose (mg/dL) 229 H (75-99) mg/dL Magnesium (1.6-2.3) mg/dL Crossmatch Microbiology - Last 24 Hours (Table) 05/04/21 03:58 Blood Culture - Preliminary Blood No Growth after 24 hours 05/03/21 09:58 Urine Culture - Preliminary Urine,Catheterized Assessment and Plan Assessment: 1 Hyperkalemia secondary to acute kidney injury and sepsis. 2 Sepsis secondary to enlarging left psoas abscess, currently on vancomycin and meropenem 3 Recent bowel resection with diverting colostomy, functioning 4 Leukocytosis secondary to above 5 Chronic hypoxemic respiratory failure secondary to chronic obstructive pulmonary disease 6 Hypothyroidism 7 Hyperlipidemia 8 Hypertension 9 History of ESBL gram-negative infection 10 Chronic anemia 11 Diabetes mellitus 12 History of depression Recommendation: Agree with interventional radiology to go ahead and drain left psoas abscess. Agree with blood transfusion for hemoglobin 6.5. Agree with present antibiotics coverage for sepsis and psoas abscess. Continue bronchodilators. Titrate FiO2 as tolerated and accordingly. Continue to monitor potassium level and renal profile. That is being addressed by nephrology on the case. Will sign off for now and follow-up on the patient as needed. Time with Patient: Less than 30
--- NOTE | 2021-05-05 14:58 | P.GSCN ---
History of Present Illness Consult date: 05/05/21 Reason for Consult: psoas abscess History of present illness: ct from February and April 2021 show left psoas abscess. Based on CT, no percutaneous access is availlable, recommend Surgical consult. Past Medical History Past Medical History: Asthma, Chest Pain / Angina, COPD, Diabetes Mellitus, Hyperlipidemia, Hypertension, Osteoarthritis (OA), Respiratory Disorder, Skin Disorder, Thyroid Disorder Additional Past Medical History / Comment(s): Obesity (BMI 35) COPD, asthma, diabetes , depression, 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 The patient is also a recently quit smoker. The patient has chronic back pain. History of Any Multi-Drug Resistant Organisms: VRE Year Discovered:: 02/18/21 MDRO Source:: Peritoneal Fluid-Abdominal Past Surgical History: Appendectomy, Bowel Resection, Section, Cholecystectomy, Orthopedic Surgery, Tubal Ligation Additional Past Surgical History / Comment(s): LASER SX JETHRO EYES FOR GLAUCOMA. RT KNEE ARTHROSCOPY. UNDERWENT PERCUTANEOUS NEPHROSTOLITHOTOMY, colostomy Past Anesthesia/Blood Transfusion Reactions: No Reported Reaction Past Psychological History: Anxiety, Depression Smoking Status: Former smoker Past Alcohol Use History: None Reported Past Drug Use History: None Reported - Past Family History Mother Additional Family Medical History / Comment(s): emphysema, heart valve problems, in her slepp. Brother(s) Family Medical History: Cancer Additional Family Medical History / Comment(s): from oral cancer Father Brother(s) Family Medical History: Cancer Additional Family Medical History / Comment(s): heart disease Medications and Allergies Home Medications Medication Instructions Recorded Confirmed Type Zafirlukast [Accolate] 20 mg PO BID 02/06/14 05/03/21 History ARIPiprazole [Abilify] 5 mg PO HS 02/07/18 05/03/21 History metFORMIN HCL [Glucophage] 1,000 mg PO BID-W/MEALS 02/07/18 05/03/21 History Atorvastatin [Lipitor] 40 mg PO DAILY #30 tab 09/10/18 05/03/21 Rx Cholecalciferol [Vitamin D3 (25 1,000 unit PO DAILY 09/03/19 05/03/21 History Mcg = 1000 Iu)] Levothyroxine Sodium [Synthroid] 200 mcg PO DAILY 09/03/19 05/03/21 History Albuterol Sulfate [Ventolin HFA] 1 - 2 puff INHALATION RT-Q6H PRN 03/11/20 05/03/21 History Escitalopram [Lexapro] 20 mg PO DAILY 03/11/20 05/03/21 History Budesonide [Pulmicort] 1 mg INHALATION RT-BID ml 03/27/20 05/03/21 Rx Formoterol Fumarate [Perforomist] 20 mcg INHALATION RT-BID nebu 03/27/20 05/03/21 Rx HYDROcodone/APAP 7.5-325MG [[place] 1 tab PO Q6H PRN #12 tab 03/27/20 05/03/21 Rx 7.5-325] Ipratropium-Albuterol Nebulize 3 ml INHALATION RT-Q2H PRN ml 03/27/20 05/03/21 Rx [Duoneb 0.5 mg-3 mg/3 ml Soln] Pantoprazole Sodium [Protonix] 40 mg PO BID #60 tablet.dr 03/27/20 05/03/21 Rx Furosemide [Lasix] 40 mg PO DAILY 04/27/20 05/03/21 History traZODone HCL 100 mg PO HS PRN 05/15/20 05/03/21 History Spironolactone [Aldactone] 12.5 mg PO DAILY #30 tab 12/27/20 05/03/21 Rx Magnesium Oxide [Mag-Ox] 400 mg PO DAILY 01/21/21 05/03/21 History Metoprolol Succinate (ER) [Toprol 50 mg PO DAILY #30 tab 02/23/21 05/03/21 Rx Xl] Lidocaine 5% Patch [Lidoderm 5% 1 patch TRANSDERM Q12H PRN 05/03/21 05/03/21 History Patch] Lisinopril [Zestril] 10 mg PO DAILY 05/03/21 05/03/21 History Oxybutynin Xl [Ditropan XL] 5 mg PO TID 05/03/21 05/03/21 History Sulfamethox-Tmp 800-160Mg [Bactrim 1 tab PO Q12H 05/03/21 05/03/21 History DS 800-160 mg] Allergies Allergy/AdvReac Type Severity Reaction Status Date / Time adhesive Allergy Rash/Hives Verified 05/03/21 22:08 ciprofloxacin [From Cipro] Allergy Rash/Hives Verified 05/03/21 22:08 ciprofloxacin HCl Allergy Rash/Hives Verified 05/03/21 22:08 [From Cipro] latex Allergy Rash/Hives Verified 05/03/21 22:08 levofloxacin [From Levaquin] Allergy Rash/Hives Verified 05/03/21 22:08 nitrofurantoin Allergy Rash/Hives Verified 05/03/21 22:08 [From Macrobid] nitrofurantoin Allergy Rash/Hives Verified 05/03/21 22:08 macrocrystalline [From Macrobid] Penicillins Allergy Rash/Hives Verified 05/03/21 22:08 propoxyphene HCl Allergy Rash/Hives Verified 05/03/21 22:08 [From Darvon] propoxyphene napsylate Allergy Unknown Verified 05/03/21 22:08 [From Darvocet-N] Surgical - Exam Vital Signs Temp Pulse Resp BP Pulse Ox 97.9 F 66 18 105/54 95 05/03/21 20:47 05/03/21 20:47 05/03/21 20:47 05/03/21 20:47 05/03/21 20:47 Results - Labs 05/05/21 06:04 05/05/21 06:04 Abnormal Lab Results - Last 24 Hours (Table) 05/04/21 05/04/21 05/04/21 Range/Units 16:30 18:31 20:53 WBC (3.8-10.6) k/uL RBC (3.80-5.40) m/uL Hgb (11.4-16.0) gm/dL Hct (34.0-46.0) % Sodium (137-145) mmol/L Potassium 5.6 H (3.5-5.1) mmol/L BUN (7-17) mg/dL Creatinine (0.52-1.04) mg/dL Glucose (74-99) mg/dL POC Glucose (mg/dL) 229 H 223 H (75-99) mg/dL Magnesium (1.6-2.3) mg/dL Crossmatch 05/04/21 05/05/21 05/05/21 Range/Units 21:00 06:04 06:04 WBC 12.4 H (3.8-10.6) k/uL RBC 2.09 L (3.80-5.40) m/uL Hgb 6.5 L* (11.4-16.0) gm/dL Hct 20.4 L (34.0-46.0) % Sodium 132 L (137-145) mmol/L Potassium 5.5 H 5.7 H (3.5-5.1) mmol/L BUN 38 H (7-17) mg/dL Creatinine 1.06 H (0.52-1.04) mg/dL Glucose 125 H (74-99) mg/dL POC Glucose (mg/dL) (75-99) mg/dL Magnesium 1.4 L (1.6-2.3) mg/dL Crossmatch 05/05/21 05/05/21 05/05/21 Range/Units 06:11 08:30 08:35 WBC (3.8-10.6) k/uL RBC (3.80-5.40) m/uL Hgb (11.4-16.0) gm/dL Hct (34.0-46.0) % Sodium (137-145) mmol/L Potassium (3.5-5.1) mmol/L BUN (7-17) mg/dL Creatinine (0.52-1.04) mg/dL Glucose (74-99) mg/dL POC Glucose (mg/dL) 135 H 138 H (75-99) mg/dL Magnesium (1.6-2.3) mg/dL Crossmatch See Detail 05/05/21 Range/Units 11:44 WBC (3.8-10.6) k/uL RBC (3.80-5.40) m/uL Hgb (11.4-16.0) gm/dL Hct (34.0-46.0) % Sodium (137-145) mmol/L Potassium (3.5-5.1) mmol/L BUN (7-17) mg/dL Creatinine (0.52-1.04) mg/dL Glucose (74-99) mg/dL POC Glucose (mg/dL) 229 H (75-99) mg/dL Magnesium (1.6-2.3) mg/dL Crossmatch Microbiology - Last 24 Hours (Table) 05/04/21 03:58 Blood Culture - Preliminary Blood No Growth after 24 hours 05/03/21 09:58 Urine Culture - Preliminary Urine,Catheterized Diabetes panel 05/04/21 05/04/21 05/05/21 Range/Units 16:30 21:00 06:04 Sodium 132 L (137-145) mmol/L Potassium 5.6 H 5.5 H 5.7 H (3.5-5.1) mmol/L Chloride 103 (98-107) mmol/L Carbon Dioxide 23 (22-30) mmol/L BUN 38 H (7-17) mg/dL Creatinine 1.06 H (0.52-1.04) mg/dL Glucose 125 H (74-99) mg/dL Calcium 9.2 (8.4-10.2) mg/dL Calcium panel 05/05/21 Range/Units 06:04 Calcium 9.2 (8.4-10.2) mg/dL Pituitary panel 05/04/21 05/04/21 05/05/21 Range/Units 16:30 21:00 06:04 Sodium 132 L (137-145) mmol/L Potassium 5.6 H 5.5 H 5.7 H (3.5-5.1) mmol/L Chloride 103 (98-107) mmol/L Carbon Dioxide 23 (22-30) mmol/L BUN 38 H (7-17) mg/dL Creatinine 1.06 H (0.52-1.04) mg/dL Glucose 125 H (74-99) mg/dL Calcium 9.2 (8.4-10.2) mg/dL Adrenal panel 05/04/21 05/04/21 05/05/21 Range/Units 16:30 21:00 06:04 Sodium 132 L (137-145) mmol/L Potassium 5.6 H 5.5 H 5.7 H (3.5-5.1) mmol/L Chloride 103 (98-107) mmol/L Carbon Dioxide 23 (22-30) mmol/L BUN 38 H (7-17) mg/dL Creatinine 1.06 H (0.52-1.04) mg/dL Glucose 125 H (74-99) mg/dL Calcium 9.2 (8.4-10.2) mg/dL
--- NOTE | 2021-05-05 15:15 | P.PN ---
Subjective Progress Note Date: 05/05/21 Pt reports improvement since initiation of abx, but still feels tired and with no appetite today. Plan for OR vs CT drainage for abscess source control. Objective - Vital Signs Vital signs: Vital Signs Temp 97.8 F 05/05/21 14:21 Pulse 67 05/05/21 14:21 Resp 16 05/05/21 14:21 BP 141/59 05/05/21 14:21 Pulse Ox 97 05/05/21 13:51 Intake & Output 05/04/21 05/05/21 05/05/21 18:59 06:59 18:59 Intake Total 1350 400 0 Output Total 40 Balance 1310 400 0 Weight 69.5 kg Intake: IV 1000 400 Sodium Chloride 0.9% 1, 1000 400 000 ml @ 75 mls/hr IV . [id number] [facility] Rx#:[id number] Intake, IV Titration 100 Amount Sodium Chloride 0.9% 1, 100 000 ml @ 75 mls/hr IV . [id number] [facility] Rx#:[id number] Oral 250 Blood Product 0 Rc Irr As1 Unit 0 [id number] Output: Urine 40 Other: Voiding Method Diaper Diaper # Voids 1 1 # Bowel Movements 1 1 - Exam Gen: awake, alert HEENT: normocephalic, atraumatic, good hearing acuity, moist mucous membranes Resp: good air exchange, breathing comfortably with no accessory muscle use CVS: good distal perfusion x 4, GI: soft, NTTP, ND : no SPT, no CVAT, godinez catheter not present MSK: no pitting edema, no clubbing Neuro: non-focal, moving all extremities Psych: cooperative, euthymic mood - Labs CBC & Chem 7: 05/05/21 06:04 05/05/21 06:04 Labs: Abnormal Lab Results - Last 24 Hours (Table) 05/04/21 05/04/21 05/04/21 Range/Units 16:30 18:31 20:53 WBC (3.8-10.6) k/uL RBC (3.80-5.40) m/uL Hgb (11.4-16.0) gm/dL Hct (34.0-46.0) % Sodium (137-145) mmol/L Potassium 5.6 H (3.5-5.1) mmol/L BUN (7-17) mg/dL Creatinine (0.52-1.04) mg/dL Glucose (74-99) mg/dL POC Glucose (mg/dL) 229 H 223 H (75-99) mg/dL Magnesium (1.6-2.3) mg/dL Crossmatch 05/04/21 05/05/21 05/05/21 Range/Units 21:00 06:04 06:04 WBC 12.4 H (3.8-10.6) k/uL RBC 2.09 L (3.80-5.40) m/uL Hgb 6.5 L* (11.4-16.0) gm/dL Hct 20.4 L (34.0-46.0) % Sodium 132 L (137-145) mmol/L Potassium 5.5 H 5.7 H (3.5-5.1) mmol/L BUN 38 H (7-17) mg/dL Creatinine 1.06 H (0.52-1.04) mg/dL Glucose 125 H (74-99) mg/dL POC Glucose (mg/dL) (75-99) mg/dL Magnesium 1.4 L (1.6-2.3) mg/dL Crossmatch 05/05/21 05/05/21 05/05/21 Range/Units 06:11 08:30 08:35 WBC (3.8-10.6) k/uL RBC (3.80-5.40) m/uL Hgb (11.4-16.0) gm/dL Hct (34.0-46.0) % Sodium (137-145) mmol/L Potassium (3.5-5.1) mmol/L BUN (7-17) mg/dL Creatinine (0.52-1.04) mg/dL Glucose (74-99) mg/dL POC Glucose (mg/dL) 135 H 138 H (75-99) mg/dL Magnesium (1.6-2.3) mg/dL Crossmatch See Detail 05/05/21 Range/Units 11:44 WBC (3.8-10.6) k/uL RBC (3.80-5.40) m/uL Hgb (11.4-16.0) gm/dL Hct (34.0-46.0) % Sodium (137-145) mmol/L Potassium (3.5-5.1) mmol/L BUN (7-17) mg/dL Creatinine (0.52-1.04) mg/dL Glucose (74-99) mg/dL POC Glucose (mg/dL) 229 H (75-99) mg/dL Magnesium (1.6-2.3) mg/dL Crossmatch Microbiology - Last 24 Hours (Table) 05/04/21 03:58 Blood Culture - Preliminary Blood No Growth after 24 hours 05/03/21 09:58 Urine Culture - Preliminary Urine,Catheterized Assessment and Plan Assessment: Left psoas muscle abscess with increasing size and worsening leukocytosis - Vanoc and cefepime - ID and IR consult - Surgery recs Hypkeralemia, Hyponatremia, JAVON - nephro recs - Hold nephrotoxic meds, spironolactone, lasix and lisinopril - off bactrmi - follow BMP closely - Monitor urine output - Cardiac monitoring Acute on Chronic anemia secondary to recurrent GI bleeding -Continue to monitor her stools, no sign of blood at this time -Slightly lower than baseline -transfused 1U PRBC on 05/05 for target Hgb > 7 Chronic conditions Hypertension- metoprolol currently controlled Hypothyroid- levothyroxine Diabetes mellitus- metformin on hold, insulin sliding scale, follow BS COPD with chronic hypoxic respiratory failure @ 3 L- Continue bronchdilators Depression resume antidepressants
[2021-05-05 16:37] LABS: Glucose,Whole Blood 214 mg/dL (75-99)
[2021-05-05 20:34] LABS: Glucose,Whole Blood 157 mg/dL (75-99)
[2021-05-05] MEDS: ARIPiprazole 5 MG TAB PO SCH (20:51)
[2021-05-05] MEDS: traZODone HCL 100 MG TAB PO PRN (20:59)
--- NOTE | 2021-05-05 23:52 | PN ---
PROGRESS NOTE DATE OF SERVICE: 05/05/2021 REASON FOR FOLLOWUP: Right abscess. INTERVAL HISTORY: The patient was seen on rounds this morning. The patient has been afebrile, has been complaining of some abdominal pain; no worsening, though. No chest pain, shortness of breath or cough. No diarrhea. PHYSICAL EXAMINATION: Blood pressure 131/51, pulse of 60, temperature 98.1. She is 98% on 3 L nasal cannula. GENERAL DESCRIPTION: General description is a middle-aged female up in the bed in no distress. RESPIRATORY SYSTEM: Unlabored breathing. Clear to auscultation anteriorly. HEART: S1, S2. Regular rate and rhythm. ABDOMEN: Soft. No tenderness. EXTREMITIES: No edema of the feet. LABS: Hemoglobin is 6.4, white count 12.4, BUN of 28, creatinine 1.06. DIAGNOSTIC IMPRESSION AND PLAN: Patient admitted to hospital with hyperkalemia in this patient who did have a CT of abdomen and pelvis with concern for left muscle hematoma versus an abscess. Intervention Urology could not do CT-guided drainage. Surgery is already on the case. Will wait for their surgical exploration and drainage, culture. Patient to continue with cefepime, daptomycin and Flagyl on the basis of the previous cultures, and continue supportive care. MMODL / IJN: [id number] /
[2021-05-06] MEDS ORDERED: DEXTROSE 50% SYRINGE 50 ML IVP STA (03:22)
[2021-05-06] MEDS ORDERED: INSULIN REGULAR 100 UNIT/ML VIAL (IV) IV ONE (03:22)
[2021-05-06] MEDS: HYDROcodone/APAP 7.5-325MG 1 EACH TAB PO PRN ×4 (03:55→21:03)
[2021-05-06 06:14] LABS: Glucose,Whole Blood 98 mg/dL (75-99)
[2021-05-06] MEDS: INSULIN ASPART (NovoLOG) 100 UNIT/ML VIAL SQ SCH ×4 (06:15→21:03)
[2021-05-06] MEDS: LEVOTHYROXINE 100 MCG TAB PO SCH (06:45)
[2021-05-06] MEDS: IPRATROPIUM-ALBUTEROL 3 ML NEB INHALATION SCH ×4 (08:20→20:08)
[2021-05-06] MEDS: FORMOTEROL FUMARATE 20 MCG/2 ML NEBU INHALATION SCH ×2 (08:20→20:08)
[2021-05-06] MEDS: BUDESONIDE 1 MG/2 ML NEBU INHALATION SCH ×2 (08:20→20:08)
[2021-05-06] MEDS: metroNIDAZOLE 500 MG TAB PO SCH ×3 (09:09→21:03)
[2021-05-06] MEDS: PANTOPRAZOLE 40 MG TABLET PO SCH ×2 (09:09→21:03)
[2021-05-06] MEDS: CHOLECALCIFEROL 25 MCG (1000 IU) TABLET PO SCH (09:10)
[2021-05-06] MEDS: METOPROLOL SUCCINATE (ER) 50 MG TAB.ER.24H PO SCH (09:10)
[2021-05-06] MEDS: ATORVASTATIN 40 MG TAB PO SCH (09:10)
[2021-05-06] MEDS: MONTELUKAST 10 MG TAB PO SCH (09:10)
[2021-05-06] MEDS: ESCITALOPRAM 20 MG TAB PO SCH (09:10)
[2021-05-06] MEDS: OXYBUTYNIN XL 5 MG TAB.ER.24 PO SCH ×3 (09:10→21:03)
--- NOTE | 2021-05-06 09:23 | P.PN ---
Subjective Patient is seen in follow-up for acute kidney injury and hyperkalemia. Renal function better. Potassium level 5.7 yesterday. No chest pain or shortness of breath. No vomiting or diarrhea. Blood pressure stable. Wants to go home. Vital signs are stable. General: The patient appeared well nourished and normally developed. HEENT: Head exam is unremarkable. LUNGS: Breath sounds decreased. HEART: Rate and Rhythm are regular. ABDOMEN: Soft, no distention. EXTREMITITES: No edema. Objective - Vital Signs Vital signs: Vital Signs Temp 98.0 F 05/06/21 04:00 Pulse 65 05/06/21 09:08 Resp 20 05/06/21 04:00 BP 126/50 05/06/21 09:08 Pulse Ox 99 05/06/21 08:23 Intake & Output 05/05/21 05/06/21 05/06/21 18:59 06:59 18:59 Intake Total 310 180 Output Total 640 Balance 310 -640 180 Weight 68.5 kg Intake: Oral 180 Blood Product 310 Rc Irr As1 Unit 310 [id number] Output: Urine 440 Stool 200 Other: Voiding Method Diaper Diaper # Voids 3 1 # Bowel Movements 1 - Labs CBC & Chem 7: 05/05/21 06:04 05/05/21 15:28 Labs: Abnormal Lab Results - Last 24 Hours (Table) 05/05/21 05/05/21 05/05/21 Range/Units 08:30 11:44 15:28 Potassium 5.7 H (3.5-5.1) mmol/L POC Glucose (mg/dL) 229 H (75-99) mg/dL Crossmatch See Detail 05/05/21 05/05/21 Range/Units 16:36 20:33 Potassium (3.5-5.1) mmol/L POC Glucose (mg/dL) 214 H 157 H (75-99) mg/dL Crossmatch Microbiology - Last 24 Hours (Table) 05/04/21 03:58 Blood Culture - Preliminary Blood No Growth after 48 hours 05/03/21 09:58 Urine Culture - Final Urine,Catheterized Non Hemolytic Strep Assessment and Plan Plan: Assessment: 1. Acute kidney injury secondary to ATN secondary to infection as well as Bactrim which can impair creatinine secretion. Baseline creatinine is near 1 and was 1.87 on admission. 1.06 yesterday. No hydronephrosis noted. 2. UTI on antibiotics. 3. Hyperkalemia secondary to acute kidney injury, lisinopril, spironolactone and Bactrim. Improved with medical management. 4. Hypovolemic hyponatremia improved with IV hydration. Now euvolemic. 5. Acute blood loss anemia due to hematoma . Status post blood transfusion this admission. 6. Diabetes mellitus. 7. Left psoas muscle abscess. On antibiotics. Drainage pending. surgery following. 8. Chronic diastolic CHF with moderate MR and TR. 9. Chronic sigmoid diverticulitis with colovesical fistula status post colostomy and Rico's procedure in February 2021. 10. Hypomagnesemia from poor intake. replaced. Plan: Off IV fluids. Avoid nephrotoxins. Continue to monitor renal function and urine output. Morning labs pending.
[2021-05-06] MEDS: CEFEPIME 2 GM in SODIUM CHLORIDE 0.9% 100 ML IVPB SCH ×2 (09:34→21:03)
[2021-05-06 09:43] LABS: Basophils % (A) 0 %; Eosinophils # (A) 0.2 k/uL (0-0.7); Eosinophils % (A) 3 %; HCT 24.4 % (34.0-46.0); HGB 7.5 gm/dL (11.4-16.0); Hypochromasia Marked; Lymphocytes # (A) 0.9 k/uL (1.0-4.8); Lymphocytes % (A) 10 %; MCH 30.6 pg (25.0-35.0); MCHC 30.9 g/dL (31.0-37.0); MCV 99.1 fL (80.0-100.0); Mean Platelet Volume 6.9; Monocytes # (A) 0.5 k/uL (0-1.0); Monocytes % (A) 6 %; Neutrophils # (A) 7.3 k/uL (1.3-7.7); Neutrophils % (A) 79 %; Platelet Count 383 k/uL (150-450); Poikilocytosis Slight; RBC 2.46 m/uL (3.80-5.40); RDW 14.9 % (11.5-15.5); WBC 9.2 k/uL (3.8-10.6)
[2021-05-06 09:53] LABS: Magnesium 1.7 mg/dL (1.6-2.3); Potassium 5.3 mmol/L (3.5-5.1)
--- NOTE | 2021-05-06 10:11 | P.PN ---
<ToroLucretia gibbons - Last Filed: 05/06/21 10:06> Subjective Progress Note Date: 05/06/21 CHIEF COMPLAINT: Hyperkalemia HISTORY OF PRESENT ILLNESS: Surgical service is following patient for a left psoas muscle abscess. IR was unable to do the CT-guided drainage of the psoas muscle abscess. Patient wants to be discharged home. Patient denies any new abdominal pain. She denies any nausea or vomiting. She is tolerating diet. She is having bowel movements. Afebrile WBC 9.2 hemoglobin 7.5 platelets 383 sodium 131 potassium 5.3 and creatinine 1.03. Patient's hemoglobin did improve after blood transfusion. Hemoglobin went up from 6.5-7.5. PHYSICAL EXAM: VITAL SIGNS: Reviewed GENERAL: Well-developed in no acute distress. HEENT: No sclera icterus. Extraocular movements grossly intact. Moist buccal mucosa. Head is atraumatic, normocephalic. Hears conversational speech. No nasal drainage. NECK: Supple without lymphadenopathy. CHEST: Non-labored respirations and equal bilateral excursions. CARDIOVASCULAR: Palpable 2+ radial pulses. ABDOMEN: Soft. Nondistended. MUSCULOSKELETAL: No clubbing or cyanosis. NEUROLOGIC: No focal or lateralizing signs. Cranial nerves II through XII grossly intact. PSYCH: Appropriate affect. Alert and oriented to person, place and time. SKIN: Well perfused. Good skin turgor. ASSESSMENT: 1. Left iliopsoas muscle abscess 2. Chronic sigmoid diverticulitis with a colovesical fistula she is status post ascending colostomy creation with Rico's procedure on 02/18/2021 3. Acute kidney injury 4. Hyperkalemia 5. Diabetes mellitus 6. History of iron deficiency anemia 7. History of moderate aortic stenosis with mild pulmonary hypertension 8. History of hypertensive heart disease PLAN: -Patient can be discharged home from surgical standpoint -Consult placed for dietitian for education on low potassium diet -Per patient request, she would like to go home. Surgical intervention deferred at this time -Recommend patient continue antibiotics per ID recommendations -Hyperkalemia and acute kidney injury managed by nephrology Physician [employer] Officer note has been reviewed by physician. Signing provider agrees with the documented findings, assessment, and plan of care. Objective - Vital Signs Vital signs: Vital Signs Temp 98.0 F 05/06/21 04:00 Pulse 65 05/06/21 09:08 Resp 20 05/06/21 04:00 BP 126/50 05/06/21 09:08 Pulse Ox 99 05/06/21 08:23 Intake & Output 05/05/21 05/06/21 05/06/21 18:59 06:59 18:59 Intake Total 310 180 Output Total 640 Balance 310 -640 180 Weight 68.5 kg Intake: Oral 180 Blood Product 310 Rc Irr As1 Unit 310 [id number] Output: Urine 440 Stool 200 Other: Voiding Method Diaper Diaper # Voids 3 1 # Bowel Movements 1 - Labs CBC & Chem 7: 05/06/21 09:06 05/06/21 09:06 Labs: Abnormal Lab Results - Last 24 Hours (Table) 05/05/21 05/05/21 05/05/21 Range/Units 08:30 11:44 15:28 RBC (3.80-5.40) m/uL Hgb (11.4-16.0) gm/dL Hct (34.0-46.0) % MCHC (31.0-37.0) g/dL Lymphocytes # (1.0-4.8) k/uL Sodium (137-145) mmol/L Potassium 5.7 H (3.5-5.1) mmol/L BUN (7-17) mg/dL Glucose (74-99) mg/dL POC Glucose (mg/dL) 229 H (75-99) mg/dL Crossmatch See Detail 05/05/21 05/05/21 05/06/21 Range/Units 16:36 20:33 09:06 RBC (3.80-5.40) m/uL Hgb (11.4-16.0) gm/dL Hct (34.0-46.0) % MCHC (31.0-37.0) g/dL Lymphocytes # (1.0-4.8) k/uL Sodium 131 L (137-145) mmol/L Potassium 5.3 H (3.5-5.1) mmol/L BUN 32 H (7-17) mg/dL Glucose 177 H (74-99) mg/dL POC Glucose (mg/dL) 214 H 157 H (75-99) mg/dL Crossmatch 05/06/21 Range/Units 09:06 RBC 2.46 L (3.80-5.40) m/uL Hgb 7.5 L (11.4-16.0) gm/dL Hct 24.4 L (34.0-46.0) % MCHC 30.9 L (31.0-37.0) g/dL Lymphocytes # 0.9 L (1.0-4.8) k/uL Sodium (137-145) mmol/L Potassium (3.5-5.1) mmol/L BUN (7-17) mg/dL Glucose (74-99) mg/dL POC Glucose (mg/dL) (75-99) mg/dL Crossmatch Microbiology - Last 24 Hours (Table) 05/04/21 03:58 Blood Culture - Preliminary Blood No Growth after 48 hours 05/03/21 09:58 Urine Culture - Final Urine,Catheterized Non Hemolytic Strep <Ban Velazquez N - Last Filed: 05/06/21 12:23> Subjective As above. Please see additional documentation below. CHIEF COMPLAINT: Complicated sigmoid diverticulitis HISTORY OF PRESENT ILLNESS: The patient is a 70 year old female admitted with hyperkalemia including complete diverticulitis. She reports feeling well today. Hemoglobin has improved to 7.5. Patient's expresses she wants to go home. No reports of fevers or chills. REVIEW OF ORGAN SYSTEMS: No chest pain. Denies fevers or chills. No signs of bleeding. PHYSICAL EXAM: VITALS: Reviewed CONSTITUTIONAL: Well developed and in no acute distress. EYES: Conjuctivae without sclera icterus. Extraocular movements grossly intact. HEAD, EARS, NOSE, THROAT: Moist buccal mucosa. Head is atraumatic, normocephalic. Hears conversational speech. No nasal drainage. RESPIRATORY: Non-labored respirations and equal bilateral excursions. CARDIOVASCULAR: 2+ radial pulses. ABDOMEN: Ostomy is viable and pink. No peritonitis. MUSCULOSKELETAL: Nail and fingers with good capillary refill. SKIN: Warm and well perfused with good skin turgor. NEUROLOGIC: Cranial nerves II through XII grossly intact. No focal or lateralizing signs. PSYCH: Appropriate affect. Alert and oriented to person, place and time. Displays appropriate insight. CLINCAL LABS: Reviewed. Hemoglobin up to 7.5. ASSESSMENT: 1. Complicated sigmoid diverticulitis with colovesical fistula 2. Hyperkalemia 3. Abscess of left iliopsoas PLAN: 1. Recommend continue IV antibiotics as outpatient. 2. Also recommend dietitian consultation for low potassium diet. 3. Anticipated follow-up outpatient in 1 week. Objective - Vital Signs Vital signs: Vital Signs Temp 98.0 F 05/06/21 04:00 Pulse 65 05/06/21 09:08 Resp 20 05/06/21 04:00 BP 126/50 05/06/21 09:08 Pulse Ox 99 05/06/21 08:23 Intake & Output 05/05/21 05/06/21 05/06/21 18:59 06:59 18:59 Intake Total 310 180 Output Total 640 Balance 310 -640 180 Weight 68.5 kg Intake: Oral 180 Blood Product 310 Rc Irr As1 Unit 310 [id number] Output: Urine 440 Stool 200 Other: Voiding Method Diaper Diaper # Voids 3 1 # Bowel Movements 1 - Labs CBC & Chem 7: 05/06/21 09:06 05/06/21 09:06 Labs: Abnormal Lab Results - Last 24 Hours (Table) 05/05/21 05/05/21 05/05/21 Range/Units 08:30 15:28 16:36 RBC (3.80-5.40) m/uL Hgb (11.4-16.0) gm/dL Hct (34.0-46.0) % MCHC (31.0-37.0) g/dL Lymphocytes # (1.0-4.8) k/uL Sodium (137-145) mmol/L Potassium 5.7 H (3.5-5.1) mmol/L BUN (7-17) mg/dL Glucose (74-99) mg/dL POC Glucose (mg/dL) 214 H (75-99) mg/dL Crossmatch See Detail 05/05/21 05/06/21 05/06/21 Range/Units 20:33 09:06 09:06 RBC 2.46 L (3.80-5.40) m/uL Hgb 7.5 L (11.4-16.0) gm/dL Hct 24.4 L (34.0-46.0) % MCHC 30.9 L (31.0-37.0) g/dL Lymphocytes # 0.9 L (1.0-4.8) k/uL Sodium 131 L (137-145) mmol/L Potassium 5.3 H (3.5-5.1) mmol/L BUN 32 H (7-17) mg/dL Glucose 177 H (74-99) mg/dL POC Glucose (mg/dL) 157 H (75-99) mg/dL Crossmatch 05/06/21 Range/Units 11:20 RBC (3.80-5.40) m/uL Hgb (11.4-16.0) gm/dL Hct (34.0-46.0) % MCHC (31.0-37.0) g/dL Lymphocytes # (1.0-4.8) k/uL Sodium (137-145) mmol/L Potassium (3.5-5.1) mmol/L BUN (7-17) mg/dL Glucose (74-99) mg/dL POC Glucose (mg/dL) 229 H (75-99) mg/dL Crossmatch Microbiology - Last 24 Hours (Table) 05/04/21 03:58 Blood Culture - Preliminary Blood No Growth after 48 hours 05/03/21 09:58 Urine Culture - Final Urine,Catheterized Non Hemolytic Strep Assessment and Plan (1) Acute kidney injury Current Visit: Yes Status: Acute Code(s): N17.9 - ACUTE KIDNEY FAILURE, UNSPECIFIED SNOMED Code(s): 74965067 (2) Hyperkalemia Current Visit: Yes Status: Acute Code(s): E87.5 - HYPERKALEMIA SNOMED Code(s): 39041749 (3) Sigmoid diverticulitis Current Visit: No Status: Acute Code(s): K57.32 - DVTRCLI OF LG INT W/O PERFORATION OR ABSCESS W/O BLEEDING SNOMED Code(s): 873910028 (4) UTI (urinary tract infection) Current Visit: No Status: Acute Code(s): N39.0 - URINARY TRACT INFECTION, SITE NOT SPECIFIED SNOMED Code(s): 35221395
[2021-05-06 11:22] LABS: Glucose,Whole Blood 229 mg/dL (75-99)
[2021-05-06 13:31] VITALS: BMI 29.9
--- NOTE | 2021-05-06 13:55 | PN ---
PROGRESS NOTE DATE OF SERVICE: 05/06/2021 REASON FOR FOLLOWUP: INTERVAL HISTORY: The patient is afebrile. The patient's abdominal pain has decreased. The patient denies having any chest pain, shortness of breath or cough. No diarrhea. PHYSICAL EXAMINATION: Blood pressure , pulse 65, temperature 97.8. She is 99% on 3 L nasal cannula. GENERAL DESCRIPTION: General description is an elderly female up in the bed in no distress. RESPIRATORY SYSTEM: Unlabored breathing. Clear to auscultation anteriorly. HEART: S1, S2. Regular rate and rhythm. ABDOMEN: Soft. No tenderness. LABS: Hemoglobin is 7.5, white count 9.2, BUN of 52, creatinine 1.03. Blood cultures pending. Urine is showing strep. DIAGNOSTIC IMPRESSION AND PLAN: Patient with a abscess in this patient who recently completed almost 2 months of IV antibiotic therapy. Antibiotic alone would not and the abscess has to be drained and antibiotic on the basis of those cultures. additional antibiotics alone. This has been discussed in detail with the case checker as well as with the admitting physician. MMODL / IJN: [id number] /
--- NOTE | 2021-05-06 16:01 | P.PN ---
Subjective Progress Note Date: 05/06/21 Patient has growing source of psoas infection despite IV antibiotics. Patient has been on antibiotic therapy since 02/18, when she got a diverting colostomy and abscess washout after being found to have colovesicular fistula secondary to chronic sigmoid diverticulitis. She was prescribed 2 weeks of IV antibiotics at that time, and had repeat CT of the abdomen/pelvis on 03/18 which showed growing abscess. Per my review of the documentation, it appears that patient has been on some mixture of IV antibiotics and Bactrim since that time. Patient had incidental follow-up with PCP for lab checks which demonstrated potassium elevation to 7, likely complicated by Bactrim therapy, which was her admitting presentation reason. Incidentally, repeat CT of the abdomen/pelvis showed increasing complex fluid collection in the right iliopsoas muscle concerning for worsening infection despite 2 months of mixed IV/oral antibiotic therapy. During this hospital course, patient was referred to interventional radiology by general surgery, however, radiology did not feel comfortable draining this complex fluid collection as they did not think they had a safe approach percutaneously. At this time, patient warrants OR washout for source control given worsening of infection despite prolonged antibiotic therapy. I discussed this in detail with infectious disease, case management, and the patient. I tried to reach out to surgery several times, however, they were not available due to being in the OR. I agree with infectious disease that patient warrants inpatient management of source control prior to discharge. Patient herself has repeatedly been pushy about leaving the hospital as soon as possible, and did not want to wait a long period of time prior to receiving an inpatient OR washout. Therefore, general surgery offered patient an outpatient washout in 2-3 weeks according to the patient's understanding. However, I explained to the patient that this would be AGAINST MEDICAL ADVICE. I indicated that our team would recheck to general surgery regarding safe with medical plan going forward, and that we would bring for this plan by 05/07 a.m. Patient was amenable to staying at least 1 more night until we had a definitive source control plan and antibiotic plan. Objective - Vital Signs Vital signs: Vital Signs Temp 97.7 F 05/06/21 13:42 Pulse 56 L 05/06/21 13:42 Resp 12 05/06/21 13:42 BP 99/57 05/06/21 13:42 Pulse Ox 97 05/06/21 13:42 Intake & Output 05/05/21 05/06/21 05/06/21 18:59 06:59 18:59 Intake Total 310 360 Output Total 640 Balance 310 -640 360 Weight 68.5 kg 68.5 kg Intake: Oral 360 Blood Product 310 Rc Irr As1 Unit 310 [id number] Output: Urine 440 Stool 200 Other: Voiding Method Diaper Diaper # Voids 3 1 # Bowel Movements 1 - Exam Gen: awake, alert HEENT: normocephalic, atraumatic, good hearing acuity, moist mucous membranes Resp: good air exchange, breathing comfortably with no accessory muscle use CVS: good distal perfusion x 4, GI: soft, NTTP, ND, colostomy : no SPT, no CVAT, godinez catheter not present MSK: no pitting edema, no clubbing Neuro: non-focal, moving all extremities Psych: cooperative, euthymic mood - Labs CBC & Chem 7: 05/06/21 09:06 05/06/21 09:06 Labs: Abnormal Lab Results - Last 24 Hours (Table) 05/05/21 05/05/21 05/05/21 Range/Units 08:30 15:28 16:36 RBC (3.80-5.40) m/uL Hgb (11.4-16.0) gm/dL Hct (34.0-46.0) % MCHC (31.0-37.0) g/dL Lymphocytes # (1.0-4.8) k/uL Sodium (137-145) mmol/L Potassium 5.7 H (3.5-5.1) mmol/L BUN (7-17) mg/dL Glucose (74-99) mg/dL POC Glucose (mg/dL) 214 H (75-99) mg/dL Crossmatch See Detail 05/05/21 05/06/21 05/06/21 Range/Units 20:33 09:06 09:06 RBC 2.46 L (3.80-5.40) m/uL Hgb 7.5 L (11.4-16.0) gm/dL Hct 24.4 L (34.0-46.0) % MCHC 30.9 L (31.0-37.0) g/dL Lymphocytes # 0.9 L (1.0-4.8) k/uL Sodium 131 L (137-145) mmol/L Potassium 5.3 H (3.5-5.1) mmol/L BUN 32 H (7-17) mg/dL Glucose 177 H (74-99) mg/dL POC Glucose (mg/dL) 157 H (75-99) mg/dL Crossmatch 05/06/21 Range/Units 11:20 RBC (3.80-5.40) m/uL Hgb (11.4-16.0) gm/dL Hct (34.0-46.0) % MCHC (31.0-37.0) g/dL Lymphocytes # (1.0-4.8) k/uL Sodium (137-145) mmol/L Potassium (3.5-5.1) mmol/L BUN (7-17) mg/dL Glucose (74-99) mg/dL POC Glucose (mg/dL) 229 H (75-99) mg/dL Crossmatch Microbiology - Last 24 Hours (Table) 05/04/21 03:58 Blood Culture - Preliminary Blood No Growth after 48 hours 05/03/21 09:58 Urine Culture - Final Urine,Catheterized Non Hemolytic Strep Assessment and Plan Assessment: Left psoas muscle abscess with increasing size and worsening leukocytosis - Daptomycin, Flagyl, cefepime - ID and IR consult - Surgery recs Hypkeralemia, Hyponatremia, JAVON , resolved - nephro recs - Hold nephrotoxic meds, spironolactone, lasix and lisinopril - off bactrmi - follow BMP closely - Monitor urine output - Cardiac monitoring Acute on Chronic anemia secondary to recurrent GI bleeding -Continue to monitor her stools, no sign of blood at this time -Slightly lower than baseline -transfused 1U PRBC on 05/05 for target Hgb > 7 Chronic conditions Hypertension- metoprolol currently controlled Hypothyroid- levothyroxine Diabetes mellitus- metformin on hold, insulin sliding scale, follow BS COPD with chronic hypoxic respiratory failure @ 3 L- Continue bronchdilators Depression resume antidepressants
[2021-05-06 16:44] LABS: Glucose,Whole Blood 99 mg/dL (75-99)
--- NOTE | 2021-05-06 18:07 | P.PN ---
Progress Note - Text Progress Note Date: 05/06/21 Additional discussion performed with attending provider. Patient has been unable to have CT-guided drainage of psoas muscle. Agree with transfer to tertiary care center for appropriate interventional radiology drainage of complicated abscess. Care plan reviewed with patient and provider.
[2021-05-06 20:01] LABS: Glucose,Whole Blood 248 mg/dL (75-99)
[2021-05-06] MEDS: traZODone HCL 100 MG TAB PO PRN (21:03)
[2021-05-06] MEDS: ARIPiprazole 5 MG TAB PO SCH (21:03)
[2021-05-07] MEDS: HYDROcodone/APAP 7.5-325MG 1 EACH TAB PO PRN ×3 (05:24→21:37)
[2021-05-07 06:20] LABS: Glucose,Whole Blood 109 mg/dL (75-99)
[2021-05-07] MEDS: INSULIN ASPART (NovoLOG) 100 UNIT/ML VIAL SQ SCH ×4 (06:26→21:37)
[2021-05-07] MEDS: LEVOTHYROXINE 100 MCG TAB PO SCH (06:34)
[2021-05-07] MEDS: IPRATROPIUM-ALBUTEROL 3 ML NEB INHALATION SCH ×4 (08:34→19:31)
[2021-05-07] MEDS: BUDESONIDE 1 MG/2 ML NEBU INHALATION SCH ×2 (08:34→19:31)
[2021-05-07] MEDS: FORMOTEROL FUMARATE 20 MCG/2 ML NEBU INHALATION SCH ×2 (08:34→19:31)
[2021-05-07] MEDS: CEFEPIME 2 GM in SODIUM CHLORIDE 0.9% 100 ML IVPB SCH ×2 (09:37→21:37)
[2021-05-07] MEDS: ESCITALOPRAM 20 MG TAB PO SCH (09:38)
[2021-05-07] MEDS: OXYBUTYNIN XL 5 MG TAB.ER.24 PO SCH ×3 (09:38→21:36)
[2021-05-07] MEDS: metroNIDAZOLE 500 MG TAB PO SCH ×3 (09:38→21:36)
[2021-05-07] MEDS: ATORVASTATIN 40 MG TAB PO SCH (09:38)
[2021-05-07] MEDS: METOPROLOL SUCCINATE (ER) 50 MG TAB.ER.24H PO SCH (09:38)
[2021-05-07] MEDS: CHOLECALCIFEROL 25 MCG (1000 IU) TABLET PO SCH (09:38)
[2021-05-07] MEDS: PANTOPRAZOLE 40 MG TABLET PO SCH ×2 (09:38→21:37)
[2021-05-07] MEDS: MONTELUKAST 10 MG TAB PO SCH (09:39)
--- NOTE | 2021-05-07 10:20 | PN ---
PROGRESS NOTE Patient is seen for followup for acute kidney injury. Patient's renal function has improved, with creatinine down to 1.0 on 05/06/2021 from 1.8 at peak. She is currently maintained on IV antibiotics. Patient is not on any IV fluids or diuretics currently. PHYSICAL EXAMINATION: Blood pressure 150/69, heart rate 63 per minute. She is afebrile. EXAMINATION OF THE HEART: S1 and S2. EXAMINATION OF LUNGS: Decreased breath sounds at the bases. ABDOMEN: Soft, nontender. LOWER EXTREMITIES: Examination of lower extremities shows no significant edema. [employer] EXAM: Grossly intact. LABS: Labs on 05/06show sodium 131, potassium 5.3, chloride 101, BUN 32, creatinine 1.03. ASSESSMENT: 1. Acute kidney injury, acute tubular necrosis, associated with underlying infection as well as Bactrim causing impaired creatinine secretion. Currently improved renal function. 2. Urinary tract infection, maintained on antibiotics. 3. Mild hyperkalemia associated with acute kidney injury, lisinopril, spironolactone, Bactrim, now improved. 4. Hypovolemic hyponatremia, improved with IV hydration, now euvolemic. 5. Left psoas muscle abscess, maintained on antibiotics. 6. Chronic diastolic congestive heart failure with moderate mitral regurgitation, tricuspid regurgitation. 7. Chronic sigmoid diverticulitis and colovesical fistula, status post colostomy and Kristine's procedure February of 2021. 8. Hypomagnesemia, status post replacement. PLAN: Continue antibiotics. Repeat labs today. Avoid nephrotoxic agents. Avoid high- potassium foods. Repeat labs in a.m. MMODL / IJN: [id number] /
[2021-05-07 10:36] LABS: Magnesium 1.6 mg/dL (1.6-2.3); Potassium 5.7 mmol/L (3.5-5.1)
[2021-05-07] MEDS ORDERED: DEXTROSE 50% SYRINGE 50 ML IVP STA ×2 (10:55→18:28)
--- NOTE | 2021-05-07 11:33 | P.PN ---
Progress Note - Text Progress Note Date: 05/07/21 Patient remains clinically unchanged. She is being transferred [facility] for interventional radiology drainage of psoas abscess
[2021-05-07 11:44] LABS: Glucose,Whole Blood 155 mg/dL (75-99)
[2021-05-07] MEDS ORDERED: CALCIUM GLUCONATE 1 GM in SODIUM CHLORIDE 0.9% 100 ML IVPB ONE (12:00)
[2021-05-07] MEDS ORDERED: INSULIN REGULAR 100 UNIT/ML VIAL (IV) IV ONE ×2 (12:00→18:28)
[2021-05-07 12:16] LABS: HCT 24.2 % (34.0-46.0); HGB 7.6 gm/dL (11.4-16.0); Hypochromasia Slight; MCH 30.5 pg (25.0-35.0); MCHC 31.3 g/dL (31.0-37.0); MCV 97.7 fL (80.0-100.0); Mean Platelet Volume 7.6; Platelet Count 441 k/uL (150-450); Poikilocytosis Slight; RBC 2.48 m/uL (3.80-5.40); RDW 14.7 % (11.5-15.5); WBC 10.3 k/uL (3.8-10.6)
[2021-05-07] MEDS: SODIUM POLYSTYRENE SULFONATE 15 GM/60 ML BOTTLE PO STA ×2 (13:17→16:10)
--- NOTE | 2021-05-07 14:19 | P.PN ---
Subjective Progress Note Date: 05/07/21 Principal diagnosis: abnormal labs Patient is a 70-year-old female with a complex past medical history including recent Colovesicular fistula requiring diverting colostomy, hypertension, dyslipidemia, and multiple other comorbid conditions who came from her doctor's office due to elevated potassium. A long-standing history of recurrent urinary tract infection. In January 2020 she underwent imaging which revealed a colovesicular fistula and enlargement of the left psoas muscle without any definitive abscess. She was ultimately hospitalized in February and underwent descending colostomy with dysfunctional rectum and Rico's pouch procedure on 02/18. On 03/18 she was again noted to have a urinary tract infection and imaging demonstrated a intrapelvic left psoas muscle abscess at 2.1 x 1.4 cm. She completed almost 2 month course of outpatient IV antibiotics. Initial antibiotics on discharge had been tapped oh, Rocephin, and Flagyl. Ban was recently started on Bactrim for possible outpatient urinary tract infection, which went to her doctor's office and underwent screening labs they found a potassium of greater than 7. In the ER her elevated potassium level was confirmed an EKG was without acute changes. She had a CT of the abdomen and pelvis showing an increasing size of her left psoas muscle abscess to 5.4 x 2.5 cm. Patient was given hyperkalemia cocktail and admitted to the ICU for close monitoring. She was started on vancomycin and Merrem due to allergies nad hx of ESBL. Infectious disease, pulmonary, and surgery were consulted. Her kidney function steadily improved. Infectious disease determined that her psoas muscle abscess need to be drained as lightheaded failed conservative management with IV antibiotics. Interventional radiology was consulted who is unable to perform abscess drainage. Surgery felt that he did not warrant surgical intervention for this abscess and recommended more advanced interventional radiology. She continued to struggle with hyperkalemia requiring multiple doses of insulin and glucose as well as Lasix. Andrew Juares was contacted on 05/07 and the patient was graciously accepted by Dr. Casanova. Awaiting bed. Patient seen and examined at bedside. States that she feels tired and exhausted. She has no pain or nausea, no dysuria at this time.States that she has not been eating much as she has a low appeitite. She is now agreeable to discharge. General: Ill-appearing, no distress, appears at stated age Derm: warm, dry Head: atraumatic, normocephalic, symmetric Eyes: EOMI, no lid lag, anicteric sclera Mouth: no lip lesion, mucus membranes moist Cardiovascular: S1S2 reg, no murmur, positive posterior tibial pulse bilateral, Lungs: Decreased bs bilateral, no rhonchi, no rales , no accessory muscle use, Abdominal: soft, nontender to palpation, no guarding, no appreciable organomegaly, colostomy bag in place with stool present Ext: no gross muscle atrophy, no edema, no contractures Neuro: CN II-XI grossly intact, no focal neuro deficits Psych: Alert, sleepy but when awake she is oriented., appropriate affect Left psoas muscle abscess with increasing size and worsening leukocytosis - Cefepime, Dapto, and flagyl - ID and Surgery recs - plan for transfer to [facility] for definitive treeatment Hypkeralemia - Insulin, dextrose, calcium, kayexelate, check at 1600 - nephro recs - Continue to hold spironolactone, lasix, lisinopril, bactrim - follow BMP closely - Monitor urine output - Cardiac monitoring Chronic anemia secondary to recurrent GI bleeding from gastic angiodysplasia - s/p 1 unit of pRBC -Continue to monitor her stools, no sign of blood at this time -Slightly lower than baseline -No indication for transfusion Chronic conditions Hypertension- metoprolol currently controlled Hypothyroid- levothyroxine Diabetes mellitus- metformin on hold, insulin sliding scale, follow BS COPD with chronic hypoxic respiratory failure @ 3 L- Continue bronchdilators Depression resume antidepressants Hyponatremia, resolved JAVON, resolved Called [facility] transfer line and patient accepted by Dr. Casanova, likely bed in 1-2 days Objective - Vital Signs Vital signs: Vital Signs Temp 98.2 F 05/07/21 12:00 Pulse 64 05/07/21 12:42 Resp 22 05/07/21 12:00 BP 145/62 05/07/21 12:00 Pulse Ox 99 05/07/21 12:00 Intake & Output 05/06/21 05/07/21 05/07/21 18:59 06:59 18:59 Intake Total 840 180 Output Total 700 450 Balance 840 -700 -270 Weight 68.5 kg 68 kg Intake: Oral 840 180 Output: Stool 700 450 Other: Voiding Method Diaper Diaper # Voids 3 2 - Labs CBC & Chem 7: 05/07/21 09:23 05/07/21 09:23 Labs: Abnormal Lab Results - Last 24 Hours (Table) 05/06/21 05/07/21 05/07/21 Range/Units 19:59 06:19 09:23 RBC (3.80-5.40) m/uL Hgb (11.4-16.0) gm/dL Hct (34.0-46.0) % Sodium 134 L (137-145) mmol/L Potassium 5.7 H (3.5-5.1) mmol/L BUN 24 H (7-17) mg/dL Glucose 157 H (74-99) mg/dL POC Glucose (mg/dL) 248 H 109 H (75-99) mg/dL 05/07/21 05/07/21 Range/Units 09:23 11:42 RBC 2.48 L (3.80-5.40) m/uL Hgb 7.6 L (11.4-16.0) gm/dL Hct 24.2 L (34.0-46.0) % Sodium (137-145) mmol/L Potassium (3.5-5.1) mmol/L BUN (7-17) mg/dL Glucose (74-99) mg/dL POC Glucose (mg/dL) 155 H (75-99) mg/dL Microbiology - Last 24 Hours (Table) 05/04/21 03:58 Blood Culture - Preliminary Blood No Growth after 72 hours
[2021-05-07 14:52] LABS: Glucose,Whole Blood 154 mg/dL (75-99)
[2021-05-07] MEDS: MAGNESIUM SULFATE-D5W PMX 1 GM in DEXTROSE/WATER 1 100ML.BAG IVPB SCH ×2 (15:55→18:15)
[2021-05-07] MEDS: HEPARIN SODIUM,PORCINE/PF 5,000 UNIT/0.5 ML SYRINGE SQ SCH ×2 (15:56→23:32)
--- NOTE | 2021-05-07 16:16 | PN ---
PROGRESS NOTE DATE OF SERVICE: 05/07/2021 REASON FOR FOLLOWUP: Iliopsoas abscess. INTERVAL HISTORY: The patient is afebrile. Patient is breathing comfortably. Denies having any chest pain or shortness of breath or cough. No nausea, vomiting. Abdominal pain controlled. No diarrhea. PHYSICAL EXAMINATION: Blood pressure is 145/62 with a pulse of 72, temperature 98.2, she is 99% on 2 L nasal cannula. General description is an elderly female lying in bed in no distress. Respiratory system unlabored breathing. Lungs clear to auscultation anteriorly. Heart S1, S2. Regular rate and rhythm. Abdomen soft, no tenderness. LABS: Hemoglobin 7.9, white count 10.3, BUN of 24, creatinine 0.94. Blood culture has been negative. DIAGNOSTIC IMPRESSION: Patient with iliopsoas abscess failed conservative treatment. Waiting for transfer to [facility] for drainage of this abscess. Continue with cefepime, daptomycin, Flagyl. Continue supportive care. MMODL / IJN: [id number] /
[2021-05-07 16:20] LABS: Calcium 9.1 mg/dL (8.4-10.2); Potassium 5.7 mmol/L (3.5-5.1)
[2021-05-07 17:07] LABS: Glucose,Whole Blood 187 mg/dL (75-99)
[2021-05-07] MEDS ORDERED: FUROSEMIDE 10 MG/ML 4 ML VIAL IV STA (18:28)
[2021-05-07 20:33] LABS: Glucose,Whole Blood 131 mg/dL (75-99)
[2021-05-07] MEDS: ARIPiprazole 5 MG TAB PO SCH (21:37)
[2021-05-07] MEDS: traZODone HCL 100 MG TAB PO PRN (21:37)
[2021-05-08] MEDS: HYDROcodone/APAP 7.5-325MG 1 EACH TAB PO PRN ×2 (05:28→12:08)
[2021-05-08 06:12] LABS: Glucose,Whole Blood 105 mg/dL (75-99)
[2021-05-08] MEDS: INSULIN ASPART (NovoLOG) 100 UNIT/ML VIAL SQ SCH ×2 (06:20→12:08)
[2021-05-08] MEDS: LEVOTHYROXINE 100 MCG TAB PO SCH (06:28)
[2021-05-08 07:33] LABS: HCT 25.6 % (34.0-46.0); HGB 7.7 gm/dL (11.4-16.0); Hypochromasia Marked; MCH 30.2 pg (25.0-35.0); MCV 100.6 fL (80.0-100.0); Macrocytosis Slight; Mean Platelet Volume 7.5; Platelet Count 409 k/uL (150-450); RBC 2.55 m/uL (3.80-5.40); RDW 13.9 % (11.5-15.5); WBC 9.4 k/uL (3.8-10.6)
[2021-05-08 07:47] LABS: Calcium 9.4 mg/dL (8.4-10.2); Magnesium 1.9 mg/dL (1.6-2.3); Potassium 5.2 mmol/L (3.5-5.1)
[2021-05-08] MEDS: IPRATROPIUM-ALBUTEROL 3 ML NEB INHALATION SCH ×3 (08:05→15:25)
[2021-05-08] MEDS: BUDESONIDE 1 MG/2 ML NEBU INHALATION SCH (08:07)
[2021-05-08] MEDS: FORMOTEROL FUMARATE 20 MCG/2 ML NEBU INHALATION SCH (08:07)
[2021-05-08] MEDS: CEFEPIME 2 GM in SODIUM CHLORIDE 0.9% 100 ML IVPB SCH (09:59)
[2021-05-08] MEDS: PANTOPRAZOLE 40 MG TABLET PO SCH (09:59)
[2021-05-08] MEDS: metroNIDAZOLE 500 MG TAB PO SCH (09:59)
[2021-05-08] MEDS: ESCITALOPRAM 20 MG TAB PO SCH (09:59)
[2021-05-08] MEDS: OXYBUTYNIN XL 5 MG TAB.ER.24 PO SCH (09:59)
[2021-05-08] MEDS: HEPARIN SODIUM,PORCINE/PF 5,000 UNIT/0.5 ML SYRINGE SQ SCH (09:59)
[2021-05-08] MEDS: ATORVASTATIN 40 MG TAB PO SCH (10:00)
[2021-05-08] MEDS: MONTELUKAST 10 MG TAB PO SCH (10:00)
[2021-05-08] MEDS: CHOLECALCIFEROL 25 MCG (1000 IU) TABLET PO SCH (10:00)
[2021-05-08] MEDS: METOPROLOL SUCCINATE (ER) 50 MG TAB.ER.24H PO SCH (10:00)
--- NOTE | 2021-05-08 10:54 | PN ---
PROGRESS NOTE Patient is seen for followup for hyperkalemia and acute kidney injury. Renal function has improved. Patient's potassium is down to 5.2 now. Her blood sugar had been elevated, currently improved down to 105. PHYSICAL EXAMINATION: Patient is comfortable, awake, alert, oriented x3, not in any acute distress. Blood pressure is 160/64, heart rate 60 per minute, she is afebrile. Examination of the heart S1, S2. Examination of the lungs, bilateral breath sounds are heard. Abdomen is soft, nontender. Examination of lower extremities shows trace edema. [employer] exam grossly intact. LAB: Show sodium 132, potassium 5.2, chloride 104, CO2 is 20, BUN 20, creatinine 0.92. ASSESSMENT: 1. Acute kidney injury, currently resolved, mostly acute tubular necrosis and also elevated creatinine associated with use of Bactrim. 2. Urinary tract infection, maintained on antibiotics. 3. Hypovolemic, hyponatremia, improved with IV hydration. 4. Left psoas muscle abscess, maintained on antibiotics. 5. Chronic diastolic congestive heart failure with moderate mitral regurgitation and tricuspid regurgitation. 6. Chronic sigmoid diverticulitis and colovesical fistula status post colostomy and Kristine's procedure February of 2021. 7. Hypomagnesemia status post replacement. 8. Hyperkalemia associated with acute kidney injury, lisinopril, spironolactone, Bactrim, now improved, although potassium staying on the higher side. This was also associated with elevated blood sugars. Currently this is improved. I will check a post-void residual, rule out urine retention also. PLAN: Check post-void residual, rule out related urine retention. Continue low-potassium diet. MMODL / IJN: [id number] /
[2021-05-08 11:50] LABS: Glucose,Whole Blood 144 mg/dL (75-99)
--- NOTE | 2021-05-08 11:52 | P.PN ---
Progress Note - Text Progress Note Date: 05/08/21 Patient maintained stable. Her abdomen soft. She will be transferred to [facility] for interventional radiology drainage of psoas abscess.
[2021-05-08 12:13] VITALS: BP 155/63; PULSE 63; RESP 20; TEMP 98.3
--- NOTE | 2021-05-08 12:33 | P.DS ---
Providers Date of admission: 05/03/21 23:31 Expected date of discharge: 05/08/21 Attending physician: Mark Manzo MD Consults: 05/04/21 02:19 Consult Physician Stat Consulting Provider: Jose M Saldivar Consult Reason/Comments: Acute kidney injury; hyperkalemia Do you want consulting provider notified?: Already Contacted Placement Type Exists?: Yes Consult Physician Stat Consulting Provider: Oliva Silveira Consult Reason/Comments: Critical care management Do you want consulting provider notified?: Already Contacted 05/04/21 08:10 Consult Physician Routine Consulting Provider: Mayco Jaffe Consult Reason/Comments: psoas muscle abscess Do you want consulting provider notified?: Yes Placement Type Exists?: Yes 05/04/21 08:33 Consult Physician Stat Consulting Provider: Ban Velazquez Consult Reason/Comments: left psoas abcess Do you want consulting provider notified?: Yes Primary care physician: Connor Carreon Hospital Course: Discharge Diagnosis: Left Psoas Muscle abscess Recent Colovesicular fistula s/p diverting colostomy Non Hemolytic strep UTI, POA, Complicated Hyperkalemia, JAVON due to ATN (associated with bactrim, lasix, lisinopril, and aldactone use), Metabolic acidosis Chronic anemia secondary to recurrent GI bleeding from gastic angiodysplasia Hypertension Hypothyroid Diabetes mellitus Type II non insulin dependent COPD with chronic hypoxic respiratory failure @ 3 L Depression resume antidepressants Hospital Course: Patient is a 70-year-old female with a complex past medical history including recent Colovesicular fistula requiring diverting colostomy, hypertension, dyslipidemia, and multiple other comorbid conditions who came from her doctor's office due to elevated potassium. A long-standing history of recurrent urinary tract infection. In January 2020 she underwent imaging which revealed a colovesicular fistula and enlargement of the left psoas muscle without any definitive abscess. She was ultimately hospitalized in February and underwent descending colostomy with dysfunctional rectum and Rico's pouch procedure on 02/18. On 03/18 she was again noted to have a urinary tract infection and imaging demonstrated a intrapelvic left psoas muscle abscess at 2.1 x 1.4 cm. She completed almost 2 month course of outpatient IV antibiotics. Initial antibiotics on discharge had been tapped oh, Rocephin, and Flagyl. Ban was recently started on Bactrim for possible outpatient urinary tract infection, which went to her doctor's office and underwent screening labs they found a potassium of greater than 7. In the ER her elevated potassium level was confirmed an EKG was without acute changes. She had a CT of the abdomen and pelvis showing an increasing size of her left psoas muscle abscess to 5.4 x 2.5 cm. Patient was given hyperkalemia cocktail and admitted to the ICU for close monitoring. She was started on vancomycin and Merrem due to allergies and hx of ESBL. Infectious disease, pulmonary, and surgery were consulted. Her kidney function steadily improved. ID transitioned antibiotics to dapto, cefepime, and flagyl, Infectious disease determined that her psoas muscle abscess need to be drained as lightheaded failed conservative management with IV antibiotics. Interventional radiology was consulted who is unable to perform abscess drainage. Surgery felt that he did not warrant surgical intervention for this abscess and recommended more advanced interventional radiology. She continued to struggle with hyperkalemia requiring multiple doses of insulin and glucose as well as Lasix., with improvement and being followed by nephrology. Andrew Juares was contacted on 05/07 and the patient was graciously accepted by Dr. Casanova on 05/07. Potassium improved to 5.2. Hemoglobin was stable. [facility] had a bed on 05/08. Patient still amenable for transfer. Echo 02/17/21: EF 50-55%, LA severly dilated, mild concetric LVH, mild pulm HTN with RVSP 39, mod Patient seen and examined at bedside. Had hip pain on the right last night, it resolved with norco.She thinks pain is due to missing a dose of her norco. She denies chest pain, SOB, nuasea, and diarrhea. No difficulty urinating. Vital signs reviewed and stable. General: non toxic, no distress, appears at stated age Derm: warm, dry Head: atraumatic, normocephalic, symmetric Eyes: EOMI, no lid lag, anicteric sclera Mouth: no lip lesion, mucus membranes moist Cardiovascular: S1S2 reg, no murmur, positive posterior tibial pulse bilateral, Lungs: Course bs bilateral, no rhonchi, no rales , no accessory muscle use Abdominal: soft, + tender to deep palpation LLQ, no guarding, no appreciable organomegaly Ext: no gross muscle atrophy, trace edema, no contractures Neuro: CN II-XI grossly intact, no focal neuro deficits Psych: Alert, oriented, appropriate affect A total of 37 minutes of time were spent preparing this complex discharge summary . Active Medications Generic Name Dose Route Start Last Admin Trade Name Freq PRN Reason Stop Dose Admin Hydrocodone Bitart/Acetaminophen 1 each 05/04/21 02:35 05/08/21 12:08 Hydrocodone/Apap 7.5-325mg 1 Each Tab PO 1 each Q6H PRN Administration Pain Albuterol/Ipratropium 3 ml 05/04/21 02:35 Ipratropium-Albuterol 3 Ml Neb INHALATION RT-Q2H PRN Shortness Of Breath Or Wheezing Albuterol/Ipratropium 3 ml 05/04/21 08:31 05/08/21 11:32 Ipratropium-Albuterol 3 Ml Neb INHALATION 3 ml RT-QID KIET Administration Aripiprazole 5 mg 05/04/21 21:00 05/07/21 21:37 Aripiprazole 5 Mg Tab PO 5 mg HS KIET Administration Atorvastatin Calcium 40 mg 05/04/21 09:00 05/08/21 10:00 Atorvastatin 40 Mg Tab PO 40 mg DAILY KIET Administration Budesonide 1 mg 05/04/21 08:00 05/08/21 08:07 Budesonide 1 Mg/2 Ml Nebu INHALATION Not Given RT-BID KIET Cholecalciferol 25 mcg 05/06/21 09:00 05/08/21 10:00 Cholecalciferol 25 Mcg (1000 Iu) Tablet PO 25 mcg DAILY KIET Administration Escitalopram Oxalate 20 mg 05/04/21 09:00 05/08/21 09:59 Escitalopram 20 Mg Tab PO 20 mg DAILY KIET Administration Formoterol Fumarate 20 mcg 05/04/21 08:00 05/08/21 08:07 Formoterol Fumarate 20 Mcg/2 Ml Nebu INHALATION Not Given RT-BID KIET Heparin Sodium (Porcine) 5,000 unit 05/07/21 16:00 05/08/21 09:59 Heparin Sodium,Porcine/Pf 5,000 Unit/0.5 Ml Syringe SQ 5,000 unit Q8HR KIET Administration Cefepime HCl 2 gm/ Sodium 100 mls @ 25 mls/hr 05/04/21 21:00 05/08/21 09:59 Chloride IVPB 25 mls/hr Q12HR KIET Administration Daptomycin 400 mg/ Sodium 50 mls @ 100 mls/hr 05/05/21 16:00 05/07/21 15:55 Chloride IVPB 100 mls/hr Q24H KIET Administration Protocol Insulin Aspart 0 unit 05/04/21 07:30 05/08/21 12:08 Insulin Aspart (Novolog) 100 Unit/Ml Vial SQ 1 unit ACHS KIET Administration Protocol Levothyroxine Sodium 200 mcg 05/04/21 11:11 05/08/21 06:28 Levothyroxine 100 Mcg Tab PO 200 mcg 0630 KIET Administration Metoprolol Succinate 50 mg 05/04/21 09:00 05/08/21 10:00 Metoprolol Succinate (Er) 50 Mg Tab.Er.24h PO 50 mg DAILY KIET Administration Metronidazole 500 mg 05/04/21 16:00 05/08/21 09:59 Metronidazole 500 Mg Tab PO 500 mg TID KIET Administration Montelukast Sodium 10 mg 05/04/21 09:00 05/08/21 10:00 Montelukast 10 Mg Tab PO 10 mg DAILY KIET Administration Naloxone HCl 0.2 mg 05/04/21 02:19 Naloxone 0.4 Mg/Ml 1 Ml Vial IV Q2M PRN Opioid Reversal Oxybutynin Chloride 5 mg 05/04/21 09:00 05/08/21 09:59 Oxybutynin Xl 5 Mg Tab.Er.24 PO 5 mg TID KIET Administration Pantoprazole Sodium 40 mg 05/04/21 09:00 05/08/21 09:59 Pantoprazole 40 Mg Tablet PO 40 mg BID KIET Administration Trazodone HCl 100 mg 05/04/21 21:00 05/07/21 21:37 Trazodone Hcl 100 Mg Tab PO 100 mg HS PRN Administration Sedation Patient Condition at Discharge: Serious Plan - Discharge Summary Discharge Rx Participant: No New Discharge Prescriptions: No Action Zafirlukast [Accolate] 20 mg PO BID metFORMIN HCL [Glucophage] 1,000 mg PO BID-W/MEALS ARIPiprazole [Abilify] 5 mg PO HS Atorvastatin [Lipitor] 40 mg PO DAILY #30 tab Cholecalciferol [Vitamin D3 (25 Mcg = 1000 Iu)] 1,000 unit PO DAILY Levothyroxine Sodium [Synthroid] 200 mcg PO DAILY Albuterol Sulfate [Ventolin HFA] 1 - 2 puff INHALATION RT-Q6H PRN PRN Reason: Shortness Of Breath Escitalopram [Lexapro] 20 mg PO DAILY Ipratropium-Albuterol Nebulize [Duoneb 0.5 mg-3 mg/3 ml Soln] 3 ml INHALATION RT-Q2H PRN ml PRN Reason: Shortness Of Breath Or Wheezing Formoterol Fumarate [Perforomist] 20 mcg INHALATION RT-BID nebu Pantoprazole Sodium [Protonix] 40 mg PO BID #60 tablet. Budesonide [Pulmicort] 1 mg INHALATION RT-BID ml HYDROcodone/APAP 7.5-325MG [Cobb 7.5-325] 1 tab PO Q6H PRN #12 tab PRN Reason: Pain Furosemide [Lasix] 40 mg PO DAILY traZODone HCL 100 mg PO HS PRN PRN Reason: Sedation Sulfamethox-Tmp 800-160Mg [Bactrim DS 800-160 mg] 1 tab PO Q12H Spironolactone [Aldactone] 12.5 mg PO DAILY #30 tab Magnesium Oxide [Mag-Ox] 400 mg PO DAILY Metoprolol Succinate (ER) [Toprol Xl] 50 mg PO DAILY #30 tab Lidocaine 5% Patch [Lidoderm 5% Patch] 1 patch TRANSDERM Q12H PRN PRN Reason: Pain Lisinopril [Zestril] 10 mg PO DAILY Oxybutynin Xl [Ditropan XL] 5 mg PO TID Discharge Medication List Zafirlukast [Accolate] 20 mg PO BID 02/06/14 [History] ARIPiprazole [Abilify] 5 mg PO HS 02/07/18 [History] metFORMIN HCL [Glucophage] 1,000 mg PO BID-W/MEALS 02/07/18 [History] Atorvastatin [Lipitor] 40 mg PO DAILY #30 tab 09/10/18 [Rx] Cholecalciferol [Vitamin D3 (25 Mcg = 1000 Iu)] 1,000 unit PO DAILY 09/03/19 [History] Levothyroxine Sodium [Synthroid] 200 mcg PO DAILY 09/03/19 [History] Albuterol Sulfate [Ventolin HFA] 1 - 2 puff INHALATION RT-Q6H PRN 03/11/20 [History] Escitalopram [Lexapro] 20 mg PO DAILY 03/11/20 [History] Budesonide [Pulmicort] 1 mg INHALATION RT-BID ml 03/27/20 [Rx] Formoterol Fumarate [Perforomist] 20 mcg INHALATION RT-BID nebu 03/27/20 [Rx] HYDROcodone/APAP 7.5-325MG [Cobb 7.5-325] 1 tab PO Q6H PRN #12 tab 03/27/20 [Rx] Ipratropium-Albuterol Nebulize [Duoneb 0.5 mg-3 mg/3 ml Soln] 3 ml INHALATION RT-Q2H PRN ml 03/27/20 [Rx] Pantoprazole Sodium [Protonix] 40 mg PO BID #60 tablet.dr 03/27/20 [Rx] Furosemide [Lasix] 40 mg PO DAILY 04/27/20 [History] traZODone HCL 100 mg PO HS PRN 05/15/20 [History] Spironolactone [Aldactone] 12.5 mg PO DAILY #30 tab 12/27/20 [Rx] Magnesium Oxide [Mag-Ox] 400 mg PO DAILY 01/21/21 [History] Metoprolol Succinate (ER) [Toprol Xl] 50 mg PO DAILY #30 tab 02/23/21 [Rx] Lidocaine 5% Patch [Lidoderm 5% Patch] 1 patch TRANSDERM Q12H PRN 05/03/21 [History] Lisinopril [Zestril] 10 mg PO DAILY 05/03/21 [History] Oxybutynin Xl [Ditropan XL] 5 mg PO TID 05/03/21 [History] Sulfamethox-Tmp 800-160Mg [Bactrim DS 800-160 mg] 1 tab PO Q12H 05/03/21 [History] Follow up Appointment(s)/Referral(s): Ban Velazquez MD [STAFF PHYSICIAN] - 05/12/21 Real Weiss [NON-STAFF] - 1-2 Days Connor Carreon [Primary Care Provider] - 1-2 days Patient Instructions/Handouts: Potassium Content of Foods List (DC), Hypokalemia (DC)
== END 2021-05-08 15:18 | disposition short-term general hospital (02) | DRG 682 ==
LOC: EC 20:46 → 2SICU 23:31 → 3SCARD 05-05 02:46
PROVIDERS: ADMIT Internal Medicine; ATTEND Internal Medicine
PROC: 30233N1 Transfusion of Nonautologous Red Blood Cells into Peripheral Vein, Percutaneous Approach (ICD-10-PCS; principal; 2021-05-05)
DX: N17.9 Acute kidney failure, unspecified (principal); K68.12 Psoas muscle abscess; K55.21 Angiodysplasia of colon with hemorrhage; J96.11 Chronic respiratory failure with hypoxia; E87.1 Hypo-osmolality and hyponatremia; D62 Acute posthemorrhagic anemia; E87.2 Acidosis; I50.32 Chronic diastolic (congestive) heart failure; N39.0 Urinary tract infection, site not specified; N17.0 Acute kidney failure with tubular necrosis; B95.5 Unspecified streptococcus as the cause of diseases classified elsewhere; Z20.822 Contact with and (suspected) exposure to COVID-19; T36.8X5A Adverse effect of other systemic antibiotics, initial encounter; I11.0 Hypertensive heart disease with heart failure; J44.9 Chronic obstructive pulmonary disease, unspecified; E87.5 Hyperkalemia; E03.9 Hypothyroidism, unspecified; E11.65 Type 2 diabetes mellitus with hyperglycemia; E78.5 Hyperlipidemia, unspecified; E83.42 Hypomagnesemia; E86.1 Hypovolemia; I83.90 Asymptomatic varicose veins of unspecified lower extremity; F32.9 Major depressive disorder, single episode, unspecified; I08.3 Combined rheumatic disorders of mitral, aortic and tricuspid valves; F41.9 Anxiety disorder, unspecified; I27.20 Pulmonary hypertension, unspecified; X58.XXXA Exposure to other specified factors, initial encounter; Z93.3 Colostomy status; R10.30 Lower abdominal pain, unspecified; M51.36 Other intervertebral disc degeneration, lumbar region; G89.29 Other chronic pain; R39.15 Urgency of urination; M54.9 Dorsalgia, unspecified; H40.9 Unspecified glaucoma; Z91.81 History of falling; Z90.49 Acquired absence of other specified parts of digestive tract; Z68.35 Body mass index [BMI] 35.0-35.9, adult; Z98.51 Tubal ligation status; Z88.5 Allergy status to narcotic agent; Z88.0 Allergy status to penicillin; Z88.8 Allergy status to other drugs, medicaments and biological substances; Z88.1 Allergy status to other antibiotic agents; Z91.040 Latex allergy status; Z79.84 Long term (current) use of oral hypoglycemic drugs; Z79.890 Hormone replacement therapy; Z79.899 Other long term (current) drug therapy; Z79.51 Long term (current) use of inhaled steroids; Z85.828 Personal history of other malignant neoplasm of skin; Z87.442 Personal history of urinary calculi; Z86.19 Personal history of other infectious and parasitic diseases; Z87.891 Personal history of nicotine dependence; Z87.440 Personal history of urinary (tract) infections; Z87.19 Personal history of other diseases of the digestive system; Z79.2 Long term (current) use of antibiotics
CPT/HCPCS: 36415; 74176; 76770; 80048; 80053; 81001; 83605; 83690; 83735; 84132; 85025; 85027; 85610; 86850; 86900; 86901; 86920; 87040; 87086; 87635; 93005; 94640; 94760; 96361; 96374; 96375; 99285

== ENCOUNTER 2021-07-25 19:22 | Emergency (ER) | payer MEDICARE, OTHER ==
[2021-07-25 19:37] VITALS: BP 152/69; PULSE 67; TEMP 97.8
--- NOTE | 2021-07-25 20:11 | ED ---
General Adult HPI - General Chief complaint: Recheck/Abnormal Lab/Rx Stated complaint: Covid tests Time Seen by Provider: 07/25/21 19:41 Source: patient, RN notes reviewed Mode of arrival: ambulatory Limitations: no limitations - History of Present Illness Initial comments: this a 71-year-old female presents emergency Department course and COVID-19 test ing. Patient states she needs testing that she is scheduled for procedure at [facility]. Patient denies any symptoms. Denies fevers chills cough congestion shortness breath chest pain. Patient offers no complaints. - Related Data Home Medications Medication Instructions Recorded Confirmed Zafirlukast [Accolate] 20 mg PO BID 02/06/14 05/03/21 ARIPiprazole [Abilify] 5 mg PO HS 02/07/18 05/03/21 metFORMIN HCL [Glucophage] 1,000 mg PO BID-W/MEALS 02/07/18 05/03/21 Cholecalciferol [Vitamin D3 (25 1,000 unit PO DAILY 09/03/19 05/03/21 Mcg = 1000 Iu)] Levothyroxine Sodium [Synthroid] 200 mcg PO DAILY 09/03/19 05/03/21 Albuterol Sulfate [Ventolin HFA] 1 - 2 puff INHALATION RT-Q6H PRN 03/11/20 05/03/21 Escitalopram [Lexapro] 20 mg PO DAILY 03/11/20 05/03/21 Furosemide [Lasix] 40 mg PO DAILY 04/27/20 05/03/21 traZODone HCL 100 mg PO HS PRN 05/15/20 05/03/21 Magnesium Oxide [Mag-Ox] 400 mg PO DAILY 01/21/21 05/03/21 Lidocaine 5% Patch [Lidoderm 5% 1 patch TRANSDERM Q12H PRN 05/03/21 05/03/21 Patch] Lisinopril [Zestril] 10 mg PO DAILY 05/03/21 05/03/21 Oxybutynin Xl [Ditropan XL] 5 mg PO TID 05/03/21 05/03/21 Sulfamethox-Tmp 800-160Mg [Bactrim 1 tab PO Q12H 05/03/21 05/03/21 DS 800-160 mg] Previous Rx's Medication Instructions Recorded Atorvastatin [Lipitor] 40 mg PO DAILY #30 tab 09/10/18 Budesonide [Pulmicort] 1 mg INHALATION RT-BID ml 03/27/20 Formoterol Fumarate [Perforomist] 20 mcg INHALATION RT-BID nebu 03/27/20 HYDROcodone/APAP 7.5-325MG [[place] 1 tab PO Q6H PRN #12 tab 03/27/20 7.5-325] Ipratropium-Albuterol Nebulize 3 ml INHALATION RT-Q2H PRN ml 03/27/20 [Duoneb 0.5 mg-3 mg/3 ml Soln] Pantoprazole Sodium [Protonix] 40 mg PO BID #60 tablet.dr 03/27/20 Spironolactone [Aldactone] 12.5 mg PO DAILY #30 tab 12/27/20 Metoprolol Succinate (ER) [Toprol 50 mg PO DAILY #30 tab 02/23/21 Xl] Allergies Allergy/AdvReac Type Severity Reaction Status Date / Time adhesive Allergy Rash/Hives Verified 07/25/21 19:37 ciprofloxacin [From Cipro] Allergy Rash/Hives Verified 07/25/21 19:37 ciprofloxacin HCl Allergy Rash/Hives Verified 07/25/21 19:37 [From Cipro] latex Allergy Rash/Hives Verified 07/25/21 19:37 levofloxacin [From Levaquin] Allergy Rash/Hives Verified 07/25/21 19:37 nitrofurantoin Allergy Rash/Hives Verified 07/25/21 19:37 [From Macrobid] nitrofurantoin Allergy Rash/Hives Verified 07/25/21 19:37 macrocrystalline [From Macrobid] Penicillins Allergy Rash/Hives Verified 07/25/21 19:37 propoxyphene HCl Allergy Rash/Hives Verified 07/25/21 19:37 [From Darvon] propoxyphene napsylate Allergy Unknown Verified 07/25/21 19:37 [From Darvocet-N] Review of Systems ROS Statement: Those systems with pertinent positive or pertinent negative responses have been documented in the HPI. ROS Other: All systems not noted in ROS Statement are negative. Past Medical History Past Medical History: Asthma, Chest Pain / Angina, COPD, Diabetes Mellitus, Hyperlipidemia, Hypertension, Osteoarthritis (OA), Respiratory Disorder, Skin Disorder, Thyroid Disorder Additional Past Medical History / Comment(s): Obesity (BMI 35) COPD, asthma, diabetes , depression, 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 The patient is also a recently quit smoker. The patient has chronic back pain. History of Any Multi-Drug Resistant Organisms: VRE Date of last positivie culture/infection: 02/18/21 MDRO Source:: Peritoneal Fluid-Abdominal Past Surgical History: Appendectomy, Bowel Resection, Section, Cholecystectomy, Orthopedic Surgery, Tubal Ligation Additional Past Surgical History / Comment(s): LASER SX JETHRO EYES FOR GLAUCOMA. RT KNEE ARTHROSCOPY. UNDERWENT PERCUTANEOUS NEPHROSTOLITHOTOMY, colostomy Past Anesthesia/Blood Transfusion Reactions: No Reported Reaction Past Psychological History: Anxiety, Depression Smoking Status: Former smoker Past Alcohol Use History: None Reported Past Drug Use History: None Reported - Past Family History Mother Additional Family Medical History / Comment(s): emphysema, heart valve problems, in her slepp. Brother(s) Family Medical History: Cancer Additional Family Medical History / Comment(s): from oral cancer Father Brother(s) Family Medical History: Cancer Additional Family Medical History / Comment(s): heart disease General Exam Limitations: no limitations General appearance: alert, in no apparent distress Head exam: Present: atraumatic, normocephalic, normal inspection Respiratory exam: Present: normal lung sounds bilaterally. Absent: respiratory distress, wheezes, rales, rhonchi, stridor Cardiovascular Exam: Present: regular rate, normal rhythm, normal heart sounds. Absent: systolic murmur, diastolic murmur, rubs, gallop, clicks Course Vital Signs 07/25/21 07/25/21 19:34 20:11 Temperature 97.8 F Pulse Rate 67 Respiratory 20 16 Rate Blood Pressure 152/69 O2 Sat by Pulse 98 Oximetry Medical Decision Making - Medical Decision Making COVID-19 test is negative - Lab Data Lab Results 07/25/21 Range/Units 19:38 Coronavirus (PCR) Not Detected (Not Detectd) Disposition Clinical Impression: Encounter for laboratory testing for COVID-19 virus Disposition: HOME SELF-CARE Condition: Stable Additional Instructions: Please return to the Emergency Department if symptoms worsen or any other concerns. Is patient prescribed a controlled substance at d/c from ED?: No Referrals: Connor Carreon [Primary Care Provider] - 1-2 days Time of Disposition: 20:17
[2021-07-25 20:12] VITALS: RESP 16
== END 2021-07-25 20:41 | disposition home or self-care (01) ==
LOC: EC 19:22
DX: Z20.822 Contact with and (suspected) exposure to COVID-19 (principal); J44.9 Chronic obstructive pulmonary disease, unspecified; I10 Essential (primary) hypertension; E11.9 Type 2 diabetes mellitus without complications; E66.9 Obesity, unspecified; E03.9 Hypothyroidism, unspecified; M19.90 Unspecified osteoarthritis, unspecified site; Z91.09 Other allergy status, other than to drugs and biological substances; Z87.891 Personal history of nicotine dependence; Z88.1 Allergy status to other antibiotic agents; Z91.040 Latex allergy status; Z88.8 Allergy status to other drugs, medicaments and biological substances; Z88.0 Allergy status to penicillin; Z88.5 Allergy status to narcotic agent; Z88.3 Allergy status to other anti-infective agents; Z79.899 Other long term (current) drug therapy; Z79.890 Hormone replacement therapy; Z79.84 Long term (current) use of oral hypoglycemic drugs; Z68.35 Body mass index [BMI] 35.0-35.9, adult
CPT/HCPCS: 87635; 99283

== ENCOUNTER 2021-08-18 07:14 | Day surgery (SDC) | payer MEDICARE, OTHER ==
[2021-08-16 10:46] VITALS: BMI 28.2
[~2021-08-18 07:14] MED LIST: LACTATED RINGERS 1,000 ML IV SCH
[2021-08-18] MEDS ORDERED: LIDOCAINE 1% (10MG/ML) FOR IV START INTRADERMA ONE (08:01)
[2021-08-18 08:03] VITALS: TEMP 98.7
[2021-08-18 08:12] LABS: Glucose,Whole Blood 142 mg/dL (75-99)
[2021-08-18] MEDS ORDERED: PROPOFOL 10 MG/ML 20 ML VIAL IV ONE (08:19)
--- NOTE | 2021-08-18 08:47 | P.PCN ---
Date of Procedure: 08/18/21 Procedure(s) Performed: BRIEF HISTORY: Patient is a 71-year-old pleasant white female scheduled for an colonoscopy slightly was a colostomy. The patient was admitted hospital in February 2021 with complicated sigmoid diverticulitis this was abscess and colovesical fistula. She underwent colostomy with Rico's pouch by Dr. Strange. Since then has been following at [facility] and is being considered for colostomy wasn't. PROCEDURE PERFORMED: Colonoscopy via colostomy and rectum. 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 IV sedation per Anesthesia. PROCEDURE: After informed consent was obtained, the patient, was brought into the endoscopy unit. IV sedation was administered by Anesthesia under continuous monitoring. Digital rectal examination was normal. Initially the Olympus CF-160 flexible video colonoscope was then inserted in the colostomy and was gradually gradually advanced into the cecum without any difficulty. Careful examination was performed as the scope was gradually being withdrawn. Ileocecal valve and the appendiceal orifice were visualized and appeared normal. Prep was excellent. Mucosa of the cecum, ascending colon, transverse colon, descending colon, appeared normal. The colostomy ulcer appeared normal. At this time the patient continued to remain sedated. Digital rectal examination with the was normal. The scope was advanced into the rectum and the rectal stump was visualized up to 20 cm of the anal was there appeared completed normal. Retroflexion was performed rectum lesions were noted. The patient tolerated the procedure well. IMPRESSION: Colonoscopy via the descending colostomy up to the cecum appeared chad Colonoscopy via rectum visualized and felt rectal stump and appeared normal No evidence of Colorectal neoplasia ECOMMENDATIONS: Findings of this examination were discussed with the patient . as well as a family. She was advised to proceed with colostomy reversal. She can have a repeat screening colonoscopy in 10 years.
[2021-08-18 09:13] VITALS: PULSE 74; RESP 16
[2021-08-18 09:31] VITALS: BP 181/74
== END 2021-08-18 10:08 | disposition home or self-care (01) ==
LOC: ORWHC2ENDO 07:14
PROVIDERS: ATTEND Internal Medicine Gastroenterology
DX: K57.32 Diverticulitis of large intestine without perforation or abscess without bleeding (principal); Z93.3 Colostomy status; I20.9 Angina pectoris, unspecified; I10 Essential (primary) hypertension; E78.5 Hyperlipidemia, unspecified; J44.9 Chronic obstructive pulmonary disease, unspecified; F17.200 Nicotine dependence, unspecified, uncomplicated; E07.9 Disorder of thyroid, unspecified; Z79.84 Long term (current) use of oral hypoglycemic drugs; Z79.890 Hormone replacement therapy; Z79.891 Long term (current) use of opiate analgesic; Z79.51 Long term (current) use of inhaled steroids; Z79.899 Other long term (current) drug therapy; Z88.5 Allergy status to narcotic agent; Z88.0 Allergy status to penicillin; Z88.1 Allergy status to other antibiotic agents; Z91.040 Latex allergy status
CPT/HCPCS: 44388; J2704

== ENCOUNTER 2021-10-18 21:55 | Inpatient (IN) | payer MEDICARE, OTHER ==
--- NOTE | 2021-10-18 23:06 | XR ---
EXAMINATION TYPE: XR chest 2V DATE OF EXAM: 10/18/2021 COMPARISON: 10/17/2021 HISTORY: Chest pain TECHNIQUE: FINDINGS: There is no heart failure nor confluent pneumonic infiltrate. There is slight coarsening of interstitial markings. There is no pleural effusion. Heart size is normal. Bony thorax is intact. IMPRESSION: No active cardiopulmonary disease. Mild primary fibrosis. No adverse change.
[2021-10-18 23:12] LABS: Anisocytosis Slight; Basophils % (A) 0 %; Eosinophils # (A) 0.4 k/uL (0-0.7); Eosinophils % (A) 4 %; HCT 26.6 % (34.0-46.0); Hypochromasia Marked; Lymphocytes # (A) 1.4 k/uL (1.0-4.8); Lymphocytes % (A) 14 %; MCH 28.6 pg (25.0-35.0); MCHC 29.9 g/dL (31.0-37.0); MCV 95.7 fL (80.0-100.0); Mean Platelet Volume 6.9; Monocytes # (A) 0.4 k/uL (0-1.0); Monocytes % (A) 4 %; Neutrophils # (A) 7.4 k/uL (1.3-7.7); Neutrophils % (A) 74 %; Platelet Count 410 k/uL (150-450); Poikilocytosis Moderate; RBC 2.78 m/uL (3.80-5.40); RDW 16.7 % (11.5-15.5)
[2021-10-18 23:23] LABS: INR 0.9 (<1.2); Partial Thromboplastin Time 22.2 sec (22.0-30.0); Prothrombin Time 10.2 sec (9.0-12.0)
[2021-10-18 23:40] LABS: Albumin 3.4 g/dL (3.5-5.0); Magnesium 1.7 mg/dL (1.6-2.3); Potassium 4.4 mmol/L (3.5-5.1); Total Bilirubin 0.6 mg/dL (0.2-1.3); Total Protein 6.9 g/dL (6.3-8.2)
[2021-10-19 00:52] LABS: Appearance,Urine Turbid (Clear); Bacteria,Urine Many /hpf; Bilirubin,Urine 1+ (Negative); Blood,Urine Large (Negative); Color,Urine Dark Brown; Glucose,Urine (UA) Negative (Negative); Ketones,Urine Negative (Negative); Leukocyte Esterase,Urine Large (Negative); Nitrite,Urine Positive (Negative); Protein,Urine 2+ (Negative); RBC,Urine 36 /hpf (0-5); Squamous Epithelial Cell,Urine 3 /hpf (0-4); WBC,Urine >182 /hpf (0-5)
[2021-10-19 01:13] LABS: Specific Gravity,Urine 1.016 (1.001-1.035)
[2021-10-19] MEDS ORDERED: NALOXONE 0.4 MG/ML 1 ML VIAL IV PRN (02:51)
--- NOTE | 2021-10-19 02:54 | ED ---
Chest Pain HPI - General Chief Complaint: Chest Pain Stated Complaint: PIPPA,chest pain Time Seen by Provider: 10/18/21 23:37 Source: patient Mode of arrival: wheelchair Limitations: no limitations - History of Present Illness Initial Comments: This patient is 71-year-old woman who presents with 2 complaints. One complaint is that she is having some tightness all across her chest is been going on throughout the day. The she has not noted worsening or relieving factors. No associated symptoms. She also is concerned that she may be having a recurrence of a urinary tract fistula. She states she has not started noticing stool into her urine area she did previously have a fistula into her urinary tract as a complication of previous diverticulitis. Patient states her may have been some low-grade fevers. No hematuria. She is not having abdomen or back pain. MD Complaint: chest pain -: hour(s) Onset: during rest Pain Location: other (Bilateral) Pain Radiation: none Severity: mild Quality: tightness Consistency: constant Improves With: nothing Worsens With: nothing Treatments Prior to Arrival: none - Related Data Home Medications Medication Instructions Recorded Confirmed ARIPiprazole [Abilify] 5 mg PO HS 02/07/18 10/19/21 metFORMIN HCL [Glucophage] 1,000 mg PO BID-W/MEALS 02/07/18 10/19/21 Levothyroxine Sodium [Synthroid] 200 mcg PO DAILY 09/03/19 10/19/21 Albuterol Sulfate [Ventolin HFA] 1 - 2 puff INHALATION RT-Q6H PRN 03/11/20 10/19/21 Escitalopram [Lexapro] 20 mg PO DAILY 03/11/20 10/19/21 traZODone HCL 100 mg PO HS PRN 05/15/20 10/19/21 Magnesium Oxide [Mag-Ox] 400 mg PO DAILY 01/21/21 10/19/21 Albuterol Nebulized [Ventolin 2.5 mg INHALATION RT-Q6H 10/19/21 10/19/21 Nebulized] Albuterol Sulfate [Albuterol 2 puff PO RT-Q6H PRN 10/19/21 10/19/21 Sulfate Hfa] Cholecalciferol [Vitamin D3 (25 25 mcg PO DAILY 10/19/21 10/19/21 Mcg = 1000 Iu)] Ferrous Sulfate [Feosol] 325 mg PO Q48H 10/19/21 10/19/21 Furosemide [Lasix] 20 mg PO DAILY 10/19/21 10/19/21 Pantoprazole Sodium [Protonix] 40 mg PO AC-BID 10/19/21 10/19/21 Previous Rx's Medication Instructions Recorded Atorvastatin [Lipitor] 40 mg PO DAILY #30 tab 09/10/18 HYDROcodone/APAP 7.5-325MG [[place] 1 tab PO Q6H PRN #12 tab 03/27/20 7.5-325] Ipratropium-Albuterol Nebulize 3 ml INHALATION RT-Q2H PRN ml 03/27/20 [Duoneb 0.5 mg-3 mg/3 ml Soln] Metoprolol Succinate (ER) [Toprol 50 mg PO DAILY #30 tab 02/23/21 Xl] Allergies Allergy/AdvReac Type Severity Reaction Status Date / Time adhesive Allergy Rash/Hives Verified 10/19/21 06:50 ciprofloxacin [From Cipro] Allergy Rash/Hives Verified 10/19/21 06:50 ciprofloxacin HCl Allergy Rash/Hives Verified 10/19/21 06:50 [From Cipro] latex Allergy Rash/Hives Verified 10/19/21 06:50 levofloxacin [From Levaquin] Allergy Rash/Hives Verified 10/19/21 06:50 nitrofurantoin Allergy Rash/Hives Verified 10/19/21 06:50 [From Macrobid] nitrofurantoin Allergy Rash/Hives Verified 10/19/21 06:50 macrocrystalline [From Macrobid] Penicillins Allergy Rash/Hives Verified 10/19/21 06:50 propoxyphene HCl Allergy Rash/Hives Verified 10/19/21 06:50 [From Darvon] propoxyphene napsylate Allergy Unknown Verified 10/19/21 06:50 [From Darvocet-N] sulfamethoxazole Allergy PIPPA Verified 10/19/21 06:50 [From Bactrim] trimethoprim [From Bactrim] Allergy PIPPA Verified 10/19/21 06:50 Review of Systems ROS Statement: Those systems with pertinent positive or pertinent negative responses have been documented in the HPI. ROS Other: All systems not noted in ROS Statement are negative. Constitutional: Reports: fever. Denies: chills, weakness Respiratory: Denies: cough, dyspnea Cardiovascular: Reports: chest pain. Denies: palpitations, orthopnea, edema, syncope Endocrine: Reports: fatigue Gastrointestinal: Denies: abdominal pain, nausea, vomiting, diarrhea, constipation Genitourinary: Reports: as per HPI, other. Denies: dysuria, frequency, hematuria Musculoskeletal: Denies: back pain Skin: Denies: rash Neurological: Denies: headache, weakness EKG Findings - EKG Results: EKG: interpreted by ERMD, sinus rhythm (Rate 78 bpm), normal axis - Blocks, [place], Hypertrophy, ST Abn: QRS axis and voltage: pulmonary disease, low voltage (<0.5 MV total QRS and <1.0 MV in each precordial lead) Repolarization changes or abnormalities: nonspecific abnormality, ST segment, and/or T wave Past Medical History Past Medical History: Asthma, Chest Pain / Angina, COPD, Diabetes Mellitus, Hyperlipidemia, Hypertension, Osteoarthritis (OA), Respiratory Disorder, Skin Disorder, Thyroid Disorder Additional Past Medical History / Comment(s): 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 glaucoma, chronic back pain and degenerative disk disease in the lumbar spine , nephrolithiasis, history of cellulitis in the legs and history of falls. The patient is also a recently quit smoker. History of Any Multi-Drug Resistant Organisms: VRE Date of last positivie culture/infection: 02/18/21 MDRO Source:: Peritoneal Fluid-Abdominal Past Surgical History: Appendectomy, Bowel Resection, Section, Cholecystectomy, Orthopedic Surgery, Tubal Ligation Additional Past Surgical History / Comment(s): LASER SX JETHRO EYES FOR GLAUCOMA. RT KNEE ARTHROSCOPY. UNDERWENT PERCUTANEOUS NEPHROSTOLITHOTOMY, colostomy Past Anesthesia/Blood Transfusion Reactions: No Reported Reaction Past Psychological History: Anxiety, Depression Smoking Status: Former smoker Past Alcohol Use History: None Reported Past Drug Use History: None Reported - Past Family History Mother Additional Family Medical History / Comment(s): emphysema, heart valve problems, in her sleep. Brother(s) Family Medical History: Cancer Additional Family Medical History / Comment(s): from oral cancer Father Brother(s) Family Medical History: Cancer Additional Family Medical History / Comment(s): heart disease General Exam Limitations: no limitations General appearance: alert, in no apparent distress Head exam: Present: atraumatic, normocephalic Eye exam: Present: normal appearance. Absent: scleral icterus, conjunctival injection Neck exam: Present: normal inspection Respiratory exam: Present: normal lung sounds bilaterally. Absent: respiratory distress, wheezes, rales, rhonchi, stridor, chest wall tenderness Cardiovascular Exam: Present: regular rate, normal rhythm, systolic murmur. Absent: diastolic murmur, rubs, gallop GI/Abdominal exam: Present: soft, mass, other (There is a left-sided colostomy with normal appearance). Absent: distended, tenderness, guarding, rebound, rigid Extremities exam: Present: normal inspection, normal capillary refill. Absent: pedal edema, calf tenderness Back exam: Present: normal inspection Neurological exam: Present: alert Skin exam: Present: warm, dry, intact, normal color. Absent: rash Course Vital Signs 10/18/21 10/18/21 10/19/21 22:18 23:56 03:00 Temperature 97.8 F Pulse Rate 78 73 83 Respiratory 20 18 20 Rate Blood Pressure 128/75 141/51 132/84 O2 Sat by Pulse 90 L 92 L 93 L Oximetry 10/19/21 10/19/21 10/19/21 07:00 12:57 13:29 Temperature 98.0 F Pulse Rate 72 87 Respiratory 22 20 18 Rate Blood Pressure 171/57 138/75 O2 Sat by Pulse 95 92 L Oximetry 10/19/21 13:33 Temperature Pulse Rate Respiratory 18 Rate Blood Pressure O2 Sat by Pulse Oximetry Disposition Clinical Impression: Atypical chest pain, Urinary tract infection Narrative: Possible urinary tract fistula Disposition: ADMITTED IP TO THIS HOSP
[2021-10-19] MEDS: SODIUM CHLORIDE 0.9% 1,000 ML IV SCH ×3 (03:36→23:39)
[2021-10-19 08:27] LABS: Glucose,Whole Blood 166 mg/dL (75-99)
[2021-10-19] MEDS: INSULIN ASPART (NovoLOG) 100 UNIT/ML VIAL SQ SCH ×4 (08:33→21:44)
[2021-10-19] MEDS: HEPARIN SODIUM,PORCINE/PF 5,000 UNIT/0.5 ML SYRINGE SQ SCH ×3 (08:33→23:40)
[2021-10-19] MEDS: CEFEPIME 1 GM in SODIUM CHLORIDE 0.9% 50 ML IVPB SCH ×2 (09:30→21:44)
[2021-10-19 09:40] LABS: HCT 26.5 % (37.2-46.3); HGB 7.3 g/dL (12.0-15.0); MCH 27.9 pg (27.0-32.0); MCHC 27.5 g/dL (32.0-37.0); MCV 101.1 fL (80.0-97.0); Mean Platelet Volume 9.1 fL (9.5-12.2); NRBC Per 100 WBC 0 /100 WBCS (0.0-0.0); Platelet Count 332 X 10*3/uL (140-440); RBC 2.62 X 10*6/uL (4.10-5.20); RDW 16.4 % (11.5-14.5); WBC 11.57 X 10*3/uL (4.50-10.00)
[2021-10-19 10:00] LABS: African American GFR (CKD) 30.8 (60.0-200.0); Anion Gap 13.4 mmol/L (10.00-18.00); BUN/Creat Ratio 26.72 Ratio (12.00-20.00); Blood Urea Nitrogen 49.7 mg/dL (9.0-27.0); Carbon Dioxide 15.7 mmol/L (20.0-27.5); Non-African American GFR(CKD) 26.6 (60.0-200.0); Potassium 4.6 mmol/L (3.5-5.5)
[2021-10-19 10:45] LABS: Glucose,Whole Blood 130 mg/dL (75-99)
[2021-10-19] MEDS ORDERED: HYDROcodone/APAP 7.5-325MG 1 EACH TAB PO ONE (12:25)
[2021-10-19] MEDS ORDERED: IPRATROPIUM-ALBUTEROL 3 ML NEB INHALATION PRN (16:20)
--- NOTE | 2021-10-19 16:23 | P.PN ---
Progress Note - Text Progress Note Date: 10/19/21 Patient seen and examined will continue abx, consult cardiology for chest pain.
[2021-10-19] MEDS: FERROUS SULFATE 325 MG TAB PO SCH (17:05)
[2021-10-19] MEDS: PANTOPRAZOLE 40 MG TABLET PO SCH (17:05)
[2021-10-19 17:53] LABS: Glucose,Whole Blood 149 mg/dL (75-99)
[2021-10-19] MEDS: HYDROcodone/APAP 7.5-325MG 1 EACH TAB PO PRN (18:18)
[2021-10-19] MEDS ORDERED: ALBUTEROL NEBULIZED 2.5 MG/3 ML INHALATION SCH (20:00)
[2021-10-19 21:21] LABS: Glucose,Whole Blood 157 mg/dL (75-99)
[2021-10-19] MEDS: ARIPiprazole 5 MG TAB PO SCH (21:43)
[2021-10-19] MEDS: traZODone HCL 100 MG TAB PO PRN (21:44)
[2021-10-20] MEDS: SODIUM CHLORIDE 0.9% 1,000 ML IV SCH ×3 (03:03→18:16)
[2021-10-20] MEDS: HYDROcodone/APAP 7.5-325MG 1 EACH TAB PO PRN ×3 (03:04→19:30)
[2021-10-20] MEDS: LEVOTHYROXINE 100 MCG TAB PO SCH (06:04)
[2021-10-20] MEDS: ALBUTEROL NEBULIZED 2.5 MG/3 ML INHALATION SCH ×4 (07:08→18:55)
[2021-10-20 07:40] LABS: Glucose,Whole Blood 136 mg/dL (75-99)
[2021-10-20] MEDS: HEPARIN SODIUM,PORCINE/PF 5,000 UNIT/0.5 ML SYRINGE SQ SCH ×2 (08:26→17:16)
[2021-10-20] MEDS: ATORVASTATIN 40 MG TAB PO SCH (08:26)
[2021-10-20] MEDS: CEFEPIME 1 GM in SODIUM CHLORIDE 0.9% 50 ML IVPB SCH (08:26)
[2021-10-20] MEDS: METOPROLOL SUCCINATE (ER) 50 MG TAB.ER.24H PO SCH (08:26)
[2021-10-20] MEDS: INSULIN ASPART (NovoLOG) 100 UNIT/ML VIAL SQ SCH ×4 (08:26→20:56)
[2021-10-20] MEDS: CHOLECALCIFEROL 25 MCG (1000 IU) TABLET PO SCH (08:26)
[2021-10-20] MEDS: MAGNESIUM OXIDE 400 MG TAB PO SCH (08:26)
[2021-10-20] MEDS: PANTOPRAZOLE 40 MG TABLET PO SCH ×2 (08:27→17:21)
[2021-10-20] MEDS: ESCITALOPRAM 20 MG TAB PO SCH (08:27)
[2021-10-20 09:30] LABS: African American GFR (CKD) 43.4 (60.0-200.0); Anion Gap 9.2 mmol/L (10.00-18.00); BUN/Creat Ratio 27.5 Ratio (12.00-20.00); Blood Urea Nitrogen 38.5 mg/dL (9.0-27.0); Calcium 9.1 mg/dL (8.7-10.3); Carbon Dioxide 17.8 mmol/L (20.0-27.5); Non-African American GFR(CKD) 37.4 (60.0-200.0); Phosphorus 4.8 mg/dL (2.4-5.1); Potassium 4.6 mmol/L (3.5-5.5)
--- NOTE | 2021-10-20 10:31 | P.CRDCN ---
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 She follows in the office with Dr. Oh. We have been asked to see in consultation for chest pain. Patient presents to the emergency department with complaints of chest tightness and stool noted in her urine. Patient states yesterday she had anterior chest tightness and w heezing yesterday. She states her chest tightness was worse and aggravated when she took a deep breath. Her chest pain was nonradiating, nonexertional. She denies any associated shortness of breath, diaphoresis, nausea, lightheadedness, dizziness. She states that her chest tightness has now resolved, she states she does take breathing treatments and PRN albuterol inhaler. She states she does f isabel at [facility] in regards to her fistula. DIAGNOSTICS EKG obtained reveals sinus rhythm, heart rate 78, T wave inversion in V2 and lead V3, no acute STT wave abnormalities. Prior EKG was similar findings Chest x-ray with no acute cardiopulmonary process Labs, troponin negative 3, sodium 138, potassium 4.6, BUN 38, serum creatinine 1.4, magnesium 2.0, WBC 11.5, hemoglobin 10.3, platelets 332, UA positive for UTI Echocardiogram 02/2021 EF of 55-60%, LA severely dilated, trace to mild aortic regurgitation, mild to moderate aortic stenosis with a peak/mean gradient 34 mmHg/22 mmHg, mild to moderate tricuspid regurgitation, mild pulmonary hypertension, RVSP of 30 mmHg, trivial pericardial effusion present. Most recent stress test was in 2016 Lexiscan which revealed no evidence of reve rsible ischemia REVIEW OF SYSTEMS At the time of my exam: CONSTITUTIONAL: Denies fever or chills. CARDIOVASCULAR: Denies chest pain, shortness of breath, orthopnea, PND or palpitations. RESPIRATORY: Denies cough. GASTROINTESTINAL: Denies abdominal pain, Denies diarrhea, constipation, nausea or vomiting. MUSCULOSKELETAL: Denies myalgias. NEUROLOGIC: Denies numbness, tingling, headacbe or weakness. ENDOCRINE: Denies fatigue, weight change, polydipsia or polyurina. GENITOURINARY: Denies burning, hematuria or urgency with micturation. HEMATOLOGIC: Denies history of anemia or bleeding. PHYSICAL EXAMINATION Blood pressure 105/61, heart rate 83, afebrile, oxygen saturation is 92% on 3 L nasal cannula CONSTITUTIONAL: No apparent distress. HEENT: Head is normocephalic. Pupils are equal, round. Sclerae anicteric. Mucous membranes of the mouth are moist. No JVD. No carotid bruit. CHEST EXAMINATION: Lungs with bilateral expiratory wheezing to auscultation. No chest wall tenderness is noted on palpation or with deep breathing on exam, this has resolved HEART EXAMINATION: Regular rate and rhythm. S1, S2 heard. Systolic ejection murmur noted at apex and base ABDOMEN: Soft. Positive bowel sounds. EXTREMITIES: 2+ peripheral pulses, no lower extremity edema and no calf tenderness. NEUROLOGIC EXAMINATION: Patient is awake, alert and oriented x3. 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 Acute coronary syndrome has been ruled out. Does not appear to be cardiac in etiology. -We will obtain 2-D echocardiogram -Continue home cardiac medications, atorvastatin and metoprolol succinate -Further recommendations based on clinical course Nurse Practitioner note has been reviewed, I agree with a documented findings and plan of care. Patient was seen and examined. Past Medical History Past Medical History: Asthma, Cancer, Chest Pain / Angina, COPD, Diabetes Mellitus, GI Bleed, Hyperlipidemia, Hypertension, Osteoarthritis (OA), Respiratory Disorder, Skin Disorder, Thyroid Disorder Additional Past Medical History / Comment(s): Rectovesicular fistula/colostomy, diverticulitis, recurrent UTIs, gastric angiectasia, chronic anemia, past psoas abscess, chronic hypoxic respiratory failure/home oxygen ATC, NIDDM type II, hyperkalemia, hypothyroid, skin cancer/basal cell, nephrolithiasis with surgery, chronic low back pain, DDD lower spine, cellulitis bilateral lower legs, glaucoma with surgery. History of Any Multi-Drug Resistant Organisms: VRE Date of last positivie culture/infection: 02/18/21 MDRO Source:: Peritoneal Fluid-Abdominal Past Surgical History: Appendectomy, Bowel Resection, Section, Cholecystectomy, Orthopedic Surgery, Tubal Ligation Additional Past Surgical History / Comment(s): Exploratory lap/abscess drained, colostomy, EGD, colonoscopies, capsule endoscopy, PCNL, R knee arthroscopy, bilateral eye surgery for glaucoma, skin cancer removed from eyelid. Past Anesthesia/Blood Transfusion Reactions: No Reported Reaction Smoking Status: Former smoker - Past Family History Mother Family Medical History: COPD Additional Family Medical History / Comment(s): emphysema, heart valve problems, in her sleep. Brother(s) Family Medical History: Cancer Additional Family Medical History / Comment(s): from oral cancer Father Brother(s) Family Medical History: Cancer, Coronary Artery Disease (CAD) Additional Family Medical History / Comment(s): heart disease Medications and Allergies Home Medications Medication Instructions Recorded Confirmed Type ARIPiprazole [Abilify] 5 mg PO HS 02/07/18 10/19/21 History metFORMIN HCL [Glucophage] 1,000 mg PO BID-W/MEALS 02/07/18 10/19/21 History Atorvastatin [Lipitor] 40 mg PO DAILY #30 tab 09/10/18 10/19/21 Rx Levothyroxine Sodium [Synthroid] 200 mcg PO DAILY 09/03/19 10/19/21 History Albuterol Sulfate [Ventolin HFA] 1 - 2 puff INHALATION RT-Q6H PRN 03/11/20 10/19/21 History Escitalopram [Lexapro] 20 mg PO DAILY 03/11/20 10/19/21 History HYDROcodone/APAP 7.5-325MG [[place] 1 tab PO Q6H PRN #12 tab 03/27/20 10/19/21 Rx 7.5-325] Ipratropium-Albuterol Nebulize 3 ml INHALATION RT-Q2H PRN ml 03/27/20 10/19/21 Rx [Duoneb 0.5 mg-3 mg/3 ml Soln] traZODone HCL 100 mg PO HS PRN 05/15/20 10/19/21 History Magnesium Oxide [Mag-Ox] 400 mg PO DAILY 01/21/21 10/19/21 History Metoprolol Succinate (ER) [Toprol 50 mg PO DAILY #30 tab 02/23/21 10/19/21 Rx Xl] Albuterol Nebulized [Ventolin 2.5 mg INHALATION RT-Q6H 10/19/21 10/19/21 History Nebulized] Albuterol Sulfate [Albuterol 2 puff PO RT-Q6H PRN 10/19/21 10/19/21 History Sulfate Hfa] Cholecalciferol [Vitamin D3 (25 25 mcg PO DAILY 10/19/21 10/19/21 History Mcg = 1000 Iu)] Ferrous Sulfate [Feosol] 325 mg PO Q48H 10/19/21 10/19/21 History Furosemide [Lasix] 20 mg PO DAILY 10/19/21 10/19/21 History Pantoprazole Sodium [Protonix] 40 mg PO AC-BID 10/19/21 10/19/21 History Allergies Allergy/AdvReac Type Severity Reaction Status Date / Time adhesive Allergy Rash/Hives Verified 10/19/21 06:50 ciprofloxacin [From Cipro] Allergy Rash/Hives Verified 10/19/21 06:50 ciprofloxacin HCl Allergy Rash/Hives Verified 10/19/21 06:50 [From Cipro] latex Allergy Rash/Hives Verified 10/19/21 06:50 levofloxacin [From Levaquin] Allergy Rash/Hives Verified 10/19/21 06:50 nitrofurantoin Allergy Rash/Hives Verified 10/19/21 06:50 [From Macrobid] nitrofurantoin Allergy Rash/Hives Verified 10/19/21 06:50 macrocrystalline [From Macrobid] Penicillins Allergy Rash/Hives Verified 10/19/21 06:50 propoxyphene HCl Allergy Rash/Hives Verified 10/19/21 06:50 [From Darvon] propoxyphene napsylate Allergy Unknown Verified 10/19/21 06:50 [From Darvocet-N] sulfamethoxazole Allergy PIPPA Verified 10/19/21 06:50 [From Bactrim] trimethoprim [From Bactrim] Allergy PIPPA Verified 10/19/21 06:50 Physical Exam Vitals: Vital Signs Temp Pulse Pulse Resp BP BP Pulse Ox 10/20/21 03:25 98 F 83 20 105/61 92 L 10/19/21 20:08 81 10/19/21 20:04 93 L 10/19/21 19:58 73 10/19/21 19:30 97.7 F 79 20 159/63 91 L 10/19/21 13:33 18 10/19/21 13:29 18 10/19/21 12:57 98.0 F 87 20 138/75 92 L Intake and Output 10/19/21 10/20/21 10/20/21 22:59 06:59 14:59 Intake Total 1590 Balance 1590 Intake: Intake, IV Titration 1040 Amount Sodium Chloride 0.9% 1, 1040 000 ml @ 130 mls/hr IV . Q7H42M [facility] Rx#:[id number] Oral 550 Other: Voiding Method Bedside Commode # Voids 2 4 Results 10/19/21 05:04 10/20/21 05:44 CBC 10/19/21 Range/Units 05:04 WBC 11.57 H (4.50-10.00) X 10*3/uL RBC 2.62 L (4.10-5.20) X 10*6/uL Hgb 7.3 L (12.0-15.0) g/dL Hct 26.5 L (37.2-46.3) % Plt Count 332 (140-440) X 10*3/uL Comprehensive Metabolic Panel 10/19/21 Range/Units 05:04 Sodium 135 (135-145) mmol/L Potassium 4.6 (3.5-5.5) mmol/L Chloride 106 (96-109) mmol/L Carbon Dioxide 15.7 L (20.0-27.5) mmol/L BUN 49.7 H (9.0-27.0) mg/dL Creatinine 1.9 H (0.6-1.5) mg/dL Glucose 158 H (70-110) mg/dL Calcium 9.0 (8.7-10.3) mg/dL Current Medications Generic Name Dose Route Start Last Admin Trade Name Freq PRN Reason Stop Dose Admin Hydrocodone Bitart/Acetaminophen 1 each 10/19/21 16:20 10/20/21 03:04 Hydrocodone/Apap 7.5-325mg 1 Each Tab PO 1 each Q6H PRN Administration Pain Albuterol Sulfate 2.5 mg 10/20/21 08:00 10/20/21 07:08 Albuterol Nebulized 2.5 Mg/3 Ml INHALATION Not Given RT-QID KIET Albuterol/Ipratropium 3 ml 10/19/21 16:20 Ipratropium-Albuterol 3 Ml Neb INHALATION RT-Q2H PRN Shortness Of Breath Or Wheezing Aripiprazole 5 mg 10/19/21 21:00 10/19/21 21:43 Aripiprazole 5 Mg Tab PO 5 mg HS KIET Administration Atorvastatin Calcium 40 mg 10/20/21 09:00 Atorvastatin 40 Mg Tab PO DAILY [facility] Cholecalciferol 25 mcg 10/20/21 09:00 Cholecalciferol 25 Mcg (1000 Iu) Tablet PO DAILY [facility] Escitalopram Oxalate 20 mg 10/20/21 09:00 Escitalopram 20 Mg Tab PO DAILY [facility] Ferrous Sulfate 325 mg 10/19/21 16:30 10/19/21 17:05 Ferrous Sulfate 325 Mg Tab PO 325 mg Q48H KIET Administration Heparin Sodium (Porcine) 5,000 unit 10/19/21 08:00 10/19/21 23:40 Heparin Sodium,Porcine/Pf 5,000 Unit/0.5 Ml Syringe SQ Not Given Q8HR [facility] Sodium Chloride 1,000 mls @ 130 mls/hr 10/19/21 03:00 10/20/21 03:03 Saline 0.9% IV Not Given .Q7H42M [facility] Cefepime HCl 1 gm/ Sodium 50 mls @ 12.5 mls/hr 10/19/21 09:00 10/19/21 21:44 Chloride IVPB 12.5 mls/hr Q12HR [facility] Administration Protocol Insulin Aspart 0 unit 10/19/21 07:30 10/19/21 21:44 Insulin Aspart (Novolog) 100 Unit/Ml Vial SQ 1 unit ACHS [facility] Administration Protocol Levothyroxine Sodium 200 mcg 10/20/21 06:30 10/20/21 06:04 Levothyroxine 100 Mcg Tab PO 200 mcg DAILY@0630 [facility] Administration Magnesium Oxide 400 mg 10/20/21 09:00 Magnesium Oxide 400 Mg Tab PO DAILY [facility] Metoprolol Succinate 50 mg 10/20/21 09:00 Metoprolol Succinate (Er) 50 Mg Tab.Er.24h PO DAILY [facility] Naloxone HCl 0.2 mg 10/19/21 02:51 Naloxone 0.4 Mg/Ml 1 Ml Vial IV Q2M PRN Opioid Reversal Pantoprazole Sodium 40 mg 10/19/21 17:30 10/19/21 17:05 Pantoprazole 40 Mg Tablet PO 40 mg AC-BID KIET Administration Trazodone HCl 100 mg 10/19/21 16:20 10/19/21 21:44 Trazodone Hcl 100 Mg Tab PO 100 mg HS PRN Administration Sedation Intake and Output 10/19/21 10/20/21 10/20/21 22:59 06:59 14:59 Intake Total 1590 Balance 1590 Intake: Intake, IV Titration 1040 Amount Sodium Chloride 0.9% 1, 1040 000 ml @ 130 mls/hr IV . Q7H42M [facility] Rx#:[id number] Oral 550 Other: Voiding Method Bedside Commode # Voids 2 4 10/19/21 05:04 10/19/21 05:04
[2021-10-20 10:44] LABS: HCT 23.8 % (37.2-46.3); HGB 6.5 g/dL (12.0-15.0); MCH 27.8 pg (27.0-32.0); MCHC 27.3 g/dL (32.0-37.0); MCV 101.7 fL (80.0-97.0); NRBC Per 100 WBC 0 /100 WBCS (0.0-0.0); Platelet Count 331 X 10*3/uL (140-440); RBC 2.34 X 10*6/uL (4.10-5.20); RDW 16.6 % (11.5-14.5); WBC 9.99 X 10*3/uL (4.50-10.00)
[2021-10-20 11:20] LABS: Basophils # (A) 0.05 X 10*3/uL (0.00-0.10); Basophils % (A) 0.5 %; Eosinophils # (A) 0.36 X 10*3/uL (0.04-0.35); Eosinophils % (A) 3.6 %; Immature Grans, Automated 1.2 %; Lymphocytes # (A) 1.59 X 10*3/uL (0.90-5.00); Lymphocytes % (A) 15.9 %; Monocytes # (A) 1.01 X 10*3/uL (0.20-1.00); Monocytes % (A) 10.1 %; Neutrophils # (A) 6.86 X 10*3/uL (1.80-7.70); Neutrophils % (A) 68.7 %
--- NOTE | 2021-10-20 11:30 | ECHOF ---
Referral Reason:chest pain MEASUREMENTS -------- HEIGHT: 149.9 cm WEIGHT: 72.6 kg BP: 106/61 RVIDd: 3.1 cm (< 3.3) IVSd: 1.4 cm (0.6 - 1.1) LVIDd: 4.5 cm (3.9 - 5.3) LVPWd: 1.3 cm (0.6 - 1.1) IVSs: 1.6 cm LVIDs: 3.5 cm LVPWs: 1.7 cm LA Diam: 4.2 cm (2.7 - 3.8) LAESV Index (A-L): 31.64 ml/m Ao Diam: 3.1 cm (2.0 - 3.7) MV EXCURSION: 12.495 mm (> 18.000) MV EF SLOPE: 46 mm/s (70 - 150) EPSS: 1.1 cm MV E Neal: 1.65 m/s MV DecT: 193 ms MV A Nael: 1.22 m/s MV E/A Ratio: 1.36 AV maxP.66 mmHg AV meanP.63 mmHg RAP: 5.00 mmHg RVSP: 48.70 mmHg FINDINGS -------- Sinus rhythm. This was a technically adequate study. The left ventricular size is normal. There is moderate concentric left ventricular hypertrophy. O verall left ventricular systolic function is normal with, an EF between 55 - 60 %. The right ventricle is normal in size. LA is midly dilated 29-33ml/m2. The right atrium is normal in size. Interatrial and interventricular septum intact. There is moderate aortic valve sclerosis. There is mild aortic regurgitation. There is moderate a ortic stenosis present. Peak/mean gradient across the Aortic Valve is 34.66mmHg / 21.63mmHg. The mitral valve leaflets are mildly thickened. Mild mitral annular calcification present. Mild-t o-moderate mitral regurgitation is present. Mitral Valve Area by PHT {MVA By PHT} The peak and mean MV gradients are 11.38mmHg 4.46mmHg as measured by doppler. Mild mitral stenosis. Mild tricuspid regurgitation present. There is moderate pulmonary hypertension. The right ventric ular systolic pressure, as measured by Doppler, is 48.70mmHg. The pulmonic valve was not well visualized. The aortic root size is normal. Normal inferior vena cava with normal inspiratory collapse consistent with estimated right atrial pre ssure of 5 mmHg. There is no pericardial effusion. CONCLUSIONS -------- 1. The left ventricular size is normal. 2. There is moderate concentric left ventricular hypertrophy. 3. Overall left ventricular systolic function is normal with, an EF between 55 - 60 %. 4. LA is midly dilated 29-33ml/m2. 5. There is moderate aortic valve sclerosis. 6. There is mild aortic regurgitation. 7. There is moderate aortic stenosis present. 8. Peak/mean gradient across the Aortic Valve is 34.66mmHg / 21.63mmHg. 9. The mitral valve leaflets are mildly thickened. 10. Mild mitral annular calcification present. 11. [id number] mitral regurgitation is present. 12. Mitral Valve Stenosis MVA By PHT {MVA By PHT} with a Peak/Mean PG 11.38mmHg 4.46mmHg 13. Mild mitral stenosis. 14. Mild tricuspid regurgitation present. 15. There is moderate pulmonary hypertension. 16. The right ventricular systolic pressure, as measured by Doppler, is 48.70mmHg. 17. There is no pericardial effusion. SKEIN [employer]RIER: Eliza Mariano RDCS
[2021-10-20 11:45] LABS: Glucose,Whole Blood 154 mg/dL (75-99)
--- NOTE | 2021-10-20 11:58 | P.PN ---
Subjective Progress Note Date: 10/20/21 Principal diagnosis: chest pain and UTI Patient is feeling better today, no chest tightness. No shortness of breath. No fevers or chills. Her urinary symptoms are resolved. Objective - Vital Signs Vital signs: Vital Signs Temp 98 F 10/20/21 03:25 Pulse 82 10/20/21 11:10 Resp 20 10/20/21 03:25 BP 105/61 10/20/21 03:25 Pulse Ox 92 L 10/20/21 03:25 Intake & Output 10/19/21 10/20/21 10/20/21 18:59 06:59 18:59 Intake Total 1590 Balance 1590 Weight 72.575 kg Intake: Intake, IV Titration 1040 Amount Sodium Chloride 0.9% 1, 1040 000 ml @ 130 mls/hr IV . Q7H42M [facility] Rx#:[id number] Oral 550 Other: Voiding Method Bedside Commode Bedside Commode # Voids 2 4 # Bowel Movements 1 - Exam Constitutional: No acute distress, conversant, pleasant Eyes:Anicteric sclerae, moist conjunctiva, no lid-lag, PERRLA, ENMT: Oropharynx clear, no erythema, exudates Neck: Supple, FROM, no masses, or JVD, No carotid bruits, No thyromegaly Lungs: Clear to auscultation, Clear to percussion, Normal respiratory effort, no accessory muscle use Cardiovascular: Heart regular in rate and rhythm, No murmurs, gallops, or rubs, No peripheral edema Abdominal: Soft, Nontender, no guarding, rebound or rigidity, Normoactive bowel sounds, No hepatomegaly, No splenomegaly, No palpable mass Skin: Normal temperature, tone, texture, turgor, no induration, No subcutaneous nodules, No rash, lesions, No ulcers Extremities: No digital cyanosis, No clubbing, Pedal pulses intact and symmetrical, Radial pulses intact and symmetrical, No calf tenderness Psychiatric: Alert and oriented to person, place and time, appropriate affect, intact judgement Neuro: Muscles Strength 5/5 in all 4 extremities, Sensation to light touch grossly present throughout, Cranial nerves II-XII grossly intact, no focal sensory deficits - Labs CBC & Chem 7: 10/20/21 05:44 10/20/21 05:44 Labs: Abnormal Lab Results - Last 24 Hours (Table) 10/19/21 10/19/21 10/20/21 Range/Units 17:49 20:55 05:44 RBC 2.34 L (4.10-5.20) X 10*6/uL Hgb 6.5 L* (12.0-15.0) g/dL Hct 23.8 L (37.2-46.3) % MCV 101.7 H (80.0-97.0) fL MCHC 27.3 L (32.0-37.0) g/dL RDW 16.6 H (11.5-14.5) % MPV 9.0 L (9.5-12.2) fL Immature Gran # 0.12 H (0.00-0.04) X 10*3/uL Monocytes # 1.01 H (0.20-1.00) X 10*3/uL Eosinophils # 0.36 H (0.04-0.35) X 10*3/uL Chloride (96-109) mmol/L Carbon Dioxide (20.0-27.5) mmol/L Anion Gap (10.00-18.00) mmol/L BUN (9.0-27.0) mg/dL Est GFR (CKD-EPI)AfAm (60.0-200.0) Est GFR (CKD-EPI)NonAf (60.0-200.0) BUN/Creatinine Ratio (12.00-20.00) Ratio Glucose (70-110) mg/dL POC Glucose (mg/dL) 149 H 157 H (75-99) mg/dL 10/20/21 10/20/21 Range/Units 05:44 07:29 RBC (4.10-5.20) X 10*6/uL Hgb (12.0-15.0) g/dL Hct (37.2-46.3) % MCV (80.0-97.0) fL MCHC (32.0-37.0) g/dL RDW (11.5-14.5) % MPV (9.5-12.2) fL Immature Gran # (0.00-0.04) X 10*3/uL Monocytes # (0.20-1.00) X 10*3/uL Eosinophils # (0.04-0.35) X 10*3/uL Chloride 111 H (96-109) mmol/L Carbon Dioxide 17.8 L (20.0-27.5) mmol/L Anion Gap 9.20 L (10.00-18.00) mmol/L BUN 38.5 H (9.0-27.0) mg/dL Est GFR (CKD-EPI)AfAm 43.4 L (60.0-200.0) Est GFR (CKD-EPI)NonAf 37.4 L (60.0-200.0) BUN/Creatinine Ratio 27.50 H (12.00-20.00) Ratio Glucose 143 H (70-110) mg/dL POC Glucose (mg/dL) 136 H (75-99) mg/dL Microbiology - Last 24 Hours (Table) 10/19/21 03:30 Blood Culture - Preliminary Blood No Growth after 24 hours 10/19/21 03:12 Blood Culture - Preliminary Blood No Growth after 24 hours 10/19/21 00:19 Urine Culture - Preliminary Urine,Voided Assessment and Plan Plan: Acute urinary tract infection Continue cefepime, has history of infection by [id number] organisms Awaiting urine cultures History of left psoas muscle abscess patient was supposed to see surgery at [facility] in the office, continue outpatient follow-up JAVON Likely prerenal Avoid nephrotoxic medications Resolved Acute on chronic anemia, has history of recurrent GI bleeding from gastic angiodysplasia -We'll transfuse 1 unit of pRBC -Continue to monitor her stools, no sign of blood at this time -Slightly lower than baseline Chest pain Echocardiogram done, has some aortic stenosis and mitral regurgitation as well as pulmonary hypertension Seen by cardiology, cleared, pain likely pleuritic Chronic conditions Hypertension- metoprolol currently controlled Hypothyroid- levothyroxine Diabetes mellitus- metformin on hold, insulin sliding scale, follow BS COPD with chronic hypoxic respiratory failure @ 3 L- Continue bronchdilators Depression resume antidepressants Anticipated discharge: Home in a.m.
[2021-10-20 17:13] LABS: Glucose,Whole Blood 203 mg/dL (75-99)
[2021-10-20] MEDS: MORPHINE SULFATE 2 MG/ML SYRINGE IVP PRN ×2 (17:21→23:14)
[2021-10-20] MEDS ORDERED: ERTAPENEM 1 GM in SODIUM CHLORIDE 0.9% 50 ML IVPB SCH (18:00)
--- NOTE | 2021-10-20 19:14 | P.HPIM ---
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 The patient reports that she initially noticed fecal material 3-4 weeks ago and has since developed gradually worsening dysuria and suprapubic abdominal pain. She reports contacting her PCP was started on Bactrim, which worsened her breathing over the past 2 days, for which she subsequently discontinued the Bactrim. She denied e xperiencing fevers, nausea, vomiting, cough, or chest pain. Of note, the patient was initially diagnosed with a rectovesicular fistula after she had presented for passing fecal material in her urine in 01/2021. In the emergency room, laboratory evaluation was remarkable for acute kidney injury with BUN 54, creatinine 1.8, and urine grossly abnormal and consistent with UTI. Chest x-ray was unremarkable. Review of systems: Pertinent positives and negatives as discussed in HPI, a complete review of systems was performed and all other systems are negative. Physical examination: General: Somewhat chronically ill-appearing female, no distress, appears at stated age, obese Derm: no unusual rashes/lesions no unusual ecchymoses, warm, dry Head: atraumatic, normocephalic, symmetric Eyes: EOMI, no lid lag, anicteric sclera, pupils equal round reactive to light ENT: Nose and ears atraumatic, no thrush, no pharyngeal erythema Neck: No thyromegaly, no cervical lymphadenopathy, trachea midline, supple Mouth: no lip lesion, mucus membranes moist Cardiovascular: S1S2 reg, no murmur, positive posterior tibial pulse bilateral, no edema, capillary refill less than 2 seconds Lungs: CTA bilateral, no rhonchi, no rales , no accessory muscle use Abdominal: soft, colostomy in place with dark brown fecal material, mild suprapubic tenderness, no guarding, no appreciable organomegaly, normal bowel so unds Ext: no gross muscle atrophy, muscle strength 5 out of 5 in all 4 extremities grossly, no contractures, Neuro: CN II-XI grossly intact, light touch intact all 4 extremities, finger to nose within normal limits, Psych: Alert, oriented, appropriate affect Assessment/plan UTI with suspected recurrent rectovesicular fistula -Start patient on cefepime as per the prior urine cultures from 04/2021 -Follow up urine cultures -Urology and general surgery consults (patient had her previous fistula repaired by Dr. Strange) Acute kidney injury -Continue with IV fluids -Monitor BMP Chronic conditions: Type II DM, hypertension, hyperlipidemia, COPD -Check A1c -Insulin sliding scale and blood glucose monitoring -Continue with remaining home medications DVT prophylaxis -Heparin subcu The patient is admitted with an anticipated greater than 2 midnight stay for evaluation of UTI CODE STATUS: Full Code Discussed with: Patient Anticipated discharge date: 3-[address]: Home Past Medical History Past Medical History: Asthma, Chest Pain / Angina, COPD, Diabetes Mellitus, Hyperlipidemia, Hypertension, Osteoarthritis (OA), Respiratory Disorder, Skin Disorder, Thyroid Disorder Additional Past Medical History / Comment(s): 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 glaucoma, chronic back pain and degenerative disk disease in the lumbar spine , nephrolithiasis, history of cellulitis in the legs and history of falls. The patient is also a recently quit smoker. History of Any Multi-Drug Resistant Organisms: VRE Date of last positivie culture/infection: 02/18/21 MDRO Source:: Peritoneal Fluid-Abdominal Past Surgical History: Appendectomy, Bowel Resection, Section, Cholecystectomy, Orthopedic Surgery, Tubal Ligation Additional Past Surgical History / Comment(s): LASER SX JETHRO EYES FOR GLAUCOMA. RT KNEE ARTHROSCOPY. UNDERWENT PERCUTANEOUS NEPHROSTOLITHOTOMY, colostomy Past Anesthesia/Blood Transfusion Reactions: No Reported Reaction Past Psychological History: Anxiety, Depression Smoking Status: Former smoker Past Alcohol Use History: None Reported Past Drug Use History: None Reported - Past Family History Mother Additional Family Medical History / Comment(s): emphysema, heart valve problems, in her sleep. Brother(s) Family Medical History: Cancer Additional Family Medical History / Comment(s): from oral cancer Father Brother(s) Family Medical History: Cancer Additional Family Medical History / Comment(s): heart disease Medications and Allergies Home Medications Medication Instructions Recorded Confirmed Type ARIPiprazole [Abilify] 5 mg PO HS 02/07/18 10/19/21 History metFORMIN HCL [Glucophage] 1,000 mg PO BID-W/MEALS 02/07/18 10/19/21 History Atorvastatin [Lipitor] 40 mg PO DAILY #30 tab 09/10/18 10/19/21 Rx Levothyroxine Sodium [Synthroid] 200 mcg PO DAILY 09/03/19 10/19/21 History Albuterol Sulfate [Ventolin HFA] 1 - 2 puff INHALATION RT-Q6H PRN 03/11/20 10/19/21 History Escitalopram [Lexapro] 20 mg PO DAILY 03/11/20 10/19/21 History HYDROcodone/APAP 7.5-325MG [[place] 1 tab PO Q6H PRN #12 tab 03/27/20 10/19/21 Rx 7.5-325] Ipratropium-Albuterol Nebulize 3 ml INHALATION RT-Q2H PRN ml 03/27/20 10/19/21 Rx [Duoneb 0.5 mg-3 mg/3 ml Soln] traZODone HCL 100 mg PO HS PRN 05/15/20 10/19/21 History Magnesium Oxide [Mag-Ox] 400 mg PO DAILY 01/21/21 10/19/21 History Metoprolol Succinate (ER) [Toprol 50 mg PO DAILY #30 tab 02/23/21 10/19/21 Rx Xl] Albuterol Nebulized [Ventolin 2.5 mg INHALATION RT-Q6H 10/19/21 10/19/21 History Nebulized] Albuterol Sulfate [Albuterol 2 puff PO RT-Q6H PRN 10/19/21 10/19/21 History Sulfate Hfa] Cholecalciferol [Vitamin D3 (25 25 mcg PO DAILY 10/19/21 10/19/21 History Mcg = 1000 Iu)] Ferrous Sulfate [Feosol] 325 mg PO Q48H 10/19/21 10/19/21 History Furosemide [Lasix] 20 mg PO DAILY 10/19/21 10/19/21 History Pantoprazole Sodium [Protonix] 40 mg PO AC-BID 10/19/21 10/19/21 History Allergies Allergy/AdvReac Type Severity Reaction Status Date / Time adhesive Allergy Rash/Hives Verified 10/19/21 06:50 ciprofloxacin [From Cipro] Allergy Rash/Hives Verified 10/19/21 06:50 ciprofloxacin HCl Allergy Rash/Hives Verified 10/19/21 06:50 [From Cipro] latex Allergy Rash/Hives Verified 10/19/21 06:50 levofloxacin [From Levaquin] Allergy Rash/Hives Verified 10/19/21 06:50 nitrofurantoin Allergy Rash/Hives Verified 10/19/21 06:50 [From Macrobid] nitrofurantoin Allergy Rash/Hives Verified 10/19/21 06:50 macrocrystalline [From Macrobid] Penicillins Allergy Rash/Hives Verified 10/19/21 06:50 propoxyphene HCl Allergy Rash/Hives Verified 10/19/21 06:50 [From Darvon] propoxyphene napsylate Allergy Unknown Verified 10/19/21 06:50 [From Darvocet-N] sulfamethoxazole Allergy PIPPA Verified 10/19/21 06:50 [From Bactrim] trimethoprim [From Bactrim] Allergy PIPPA Verified 10/19/21 06:50 Physical Exam Vitals: Vital Signs Temp Pulse Resp BP Pulse Ox 10/19/21 03:00 83 20 132/84 93 L 10/18/21 23:56 73 18 141/51 92 L 10/18/21 22:18 97.8 F 78 20 128/75 90 L Intake and Output 10/18/21 10/18/21 10/19/21 14:59 22:59 06:59 Other: Weight 72.575 kg Results CBC & Chem 7: 10/20/21 05:44 10/20/21 05:44 Labs: Abnormal Lab Results - Last 24 Hours (Table) 10/18/21 10/18/21 10/19/21 Range/Units 23:02 23:02 00:19 RBC 2.78 L (3.80-5.40) m/uL Hgb 8.0 L (11.4-16.0) gm/dL Hct 26.6 L (34.0-46.0) % MCHC 29.9 L (31.0-37.0) g/dL RDW 16.7 H (11.5-15.5) % Chloride 108 H (98-107) mmol/L Carbon Dioxide 17 L (22-30) mmol/L BUN 54 H (7-17) mg/dL Creatinine 1.88 H (0.52-1.04) mg/dL Glucose 154 H (74-99) mg/dL Albumin 3.4 L (3.5-5.0) g/dL Urine Appearance Turbid H (Clear) Urine Protein 2+ H (Negative) Urine Blood Large H (Negative) Urine Nitrite Positive H (Negative) Urine Bilirubin 1+ H (Negative) Ur Leukocyte Esterase Large H (Negative) Urine RBC 36 H (0-5) /hpf Urine WBC >182 H (0-5) /hpf Urine WBC Clumps Many H (None) /hpf Urine Bacteria Many H (None) /hpf
[2021-10-20 20:26] LABS: Glucose,Whole Blood 146 mg/dL (75-99)
[2021-10-20] MEDS: traZODone HCL 100 MG TAB PO PRN (20:56)
[2021-10-20] MEDS: ARIPiprazole 5 MG TAB PO SCH (20:56)
[2021-10-21] MEDS: HEPARIN SODIUM,PORCINE/PF 5,000 UNIT/0.5 ML SYRINGE SQ SCH ×3 (00:17→15:26)
[2021-10-21] MEDS: SODIUM CHLORIDE 0.9% 1,000 ML IV SCH ×3 (00:18→20:50)
[2021-10-21] MEDS: HYDROcodone/APAP 7.5-325MG 1 EACH TAB PO PRN ×3 (03:03→20:50)
[2021-10-21] MEDS: MORPHINE SULFATE 2 MG/ML SYRINGE IVP PRN ×2 (04:22→18:08)
[2021-10-21] MEDS: LEVOTHYROXINE 100 MCG TAB PO SCH (04:23)
[2021-10-21] MEDS: ALBUTEROL NEBULIZED 2.5 MG/3 ML INHALATION SCH ×4 (07:14→19:31)
[2021-10-21 07:27] LABS: Glucose,Whole Blood 121 mg/dL (75-99)
[2021-10-21] MEDS: ATORVASTATIN 40 MG TAB PO SCH (08:15)
[2021-10-21] MEDS: METOPROLOL SUCCINATE (ER) 50 MG TAB.ER.24H PO SCH (08:15)
[2021-10-21] MEDS: PANTOPRAZOLE 40 MG TABLET PO SCH ×2 (08:15→18:09)
[2021-10-21] MEDS: MAGNESIUM OXIDE 400 MG TAB PO SCH (08:16)
[2021-10-21] MEDS: CHOLECALCIFEROL 25 MCG (1000 IU) TABLET PO SCH (08:16)
[2021-10-21] MEDS: ESCITALOPRAM 20 MG TAB PO SCH (08:17)
[2021-10-21] MEDS: INSULIN ASPART (NovoLOG) 100 UNIT/ML VIAL SQ SCH ×4 (08:17→20:50)
[2021-10-21 09:40] LABS: Basophils # (A) 0.04 X 10*3/uL (0.00-0.10); Basophils % (A) 0.4 %; Eosinophils # (A) 0.29 X 10*3/uL (0.04-0.35); Eosinophils % (A) 3.1 %; HCT 23.8 % (37.2-46.3); HGB 6.7 g/dL (12.0-15.0); Immature Grans, Automated 1.2 %; Lymphocytes # (A) 1.36 X 10*3/uL (0.90-5.00); Lymphocytes % (A) 14.7 %; MCH 27.9 pg (27.0-32.0); MCHC 28.2 g/dL (32.0-37.0); MCV 99.2 fL (80.0-97.0); Monocytes # (A) 0.93 X 10*3/uL (0.20-1.00); Monocytes % (A) 10.1 %; NRBC Per 100 WBC 0 /100 WBCS (0.0-0.0); Neutrophils # (A) 6.52 X 10*3/uL (1.80-7.70); Neutrophils % (A) 70.5 %; Platelet Count 276 X 10*3/uL (140-440); RDW 17.5 % (11.5-14.5); WBC 9.25 X 10*3/uL (4.50-10.00)
[2021-10-21 10:19] LABS: African American GFR (CKD) 47.5 (60.0-200.0); Anion Gap 9.6 mmol/L (10.00-18.00); BUN/Creat Ratio 20.69 Ratio (12.00-20.00); Blood Urea Nitrogen 26.9 mg/dL (9.0-27.0); Calcium 8.7 mg/dL (8.7-10.3); Carbon Dioxide 16.4 mmol/L (20.0-27.5); Potassium 4.5 mmol/L (3.5-5.5)
--- NOTE | 2021-10-21 11:35 | P.PN ---
Subjective Progress Note Date: 10/21/21 Principal diagnosis: chest pain and UTI Patient was having severe urinary symptoms last night, was given pyridium and morphine currently feeling better. No fevers or chills. No pain. No sob. Objective - Vital Signs Vital signs: Vital Signs Temp 98.5 F 10/21/21 05:00 Pulse 70 10/21/21 11:04 Resp 20 10/21/21 05:00 BP 131/67 10/21/21 05:00 Pulse Ox 92 L 10/21/21 05:00 Intake & Output 10/20/21 10/21/21 10/21/21 18:59 06:59 18:59 Intake Total 1870 300 Output Total 200 300 Balance 1670 0 Intake: Intake, IV Titration 1560 Amount Sodium Chloride 0.9% 1, 1560 000 ml @ 130 mls/hr IV . Q7H42M [facility] Rx#:[id number] Oral 300 Blood Product 310 Rc As-1 Unit 310 [id number] Output: Stool 200 300 Other: Voiding Method Bedside Commode Bedside Commode # Voids 4 2 - Exam Constitutional: No acute distress, conversant, pleasant Eyes:Anicteric sclerae, moist conjunctiva, no lid-lag, PERRLA, ENMT: Oropharynx clear, no erythema, exudates Neck: Supple, FROM, no masses, or JVD, No carotid bruits, No thyromegaly Lungs: Clear to auscultation, Clear to percussion, Normal respiratory effort, no accessory muscle use Cardiovascular: Heart regular in rate and rhythm, No murmurs, gallops, or rubs, No peripheral edema Abdominal: Soft, Nontender, no guarding, rebound or rigidity, Normoactive bowel sounds, No hepatomegaly, No splenomegaly, No palpable mass Skin: Normal temperature, tone, texture, turgor, no induration, No subcutaneous nodules, No rash, lesions, No ulcers Extremities: No digital cyanosis, No clubbing, Pedal pulses intact and symmetrical, Radial pulses intact and symmetrical, No calf tenderness Psychiatric: Alert and oriented to person, place and time, appropriate affect, intact judgement Neuro: Muscles Strength 5/5 in all 4 extremities, Sensation to light touch grossly present throughout, Cranial nerves II-XII grossly intact, no focal sensory deficits - Labs CBC & Chem 7: 10/21/21 05:40 10/21/21 05:40 Labs: Abnormal Lab Results - Last 24 Hours (Table) 10/20/21 10/20/21 10/20/21 Range/Units 05:44 05:44 11:25 RBC 2.34 L (4.10-5.20) X 10*6/uL Hgb 6.5 L* (12.0-15.0) g/dL Hct 23.8 L (37.2-46.3) % MCV 101.7 H (80.0-97.0) fL MCHC 27.3 L (32.0-37.0) g/dL RDW 16.6 H (11.5-14.5) % MPV 9.0 L (9.5-12.2) fL Immature Gran # 0.12 H (0.00-0.04) X 10*3/uL Monocytes # 1.01 H (0.20-1.00) X 10*3/uL Eosinophils # 0.36 H (0.04-0.35) X 10*3/uL Chloride (96-109) mmol/L Carbon Dioxide (20.0-27.5) mmol/L Anion Gap (10.00-18.00) mmol/L Est GFR (CKD-EPI)AfAm (60.0-200.0) Est GFR (CKD-EPI)NonAf (60.0-200.0) BUN/Creatinine Ratio (12.00-20.00) Ratio Glucose (70-110) mg/dL POC Glucose (mg/dL) 154 H (75-99) mg/dL NT-Pro-B Natriuret Pep 2034 H (0-125) pg/mL Crossmatch 10/20/21 10/20/21 10/20/21 Range/Units 12:07 17:10 20:23 RBC (4.10-5.20) X 10*6/uL Hgb (12.0-15.0) g/dL Hct (37.2-46.3) % MCV (80.0-97.0) fL MCHC (32.0-37.0) g/dL RDW (11.5-14.5) % MPV (9.5-12.2) fL Immature Gran # (0.00-0.04) X 10*3/uL Monocytes # (0.20-1.00) X 10*3/uL Eosinophils # (0.04-0.35) X 10*3/uL Chloride (96-109) mmol/L Carbon Dioxide (20.0-27.5) mmol/L Anion Gap (10.00-18.00) mmol/L Est GFR (CKD-EPI)AfAm (60.0-200.0) Est GFR (CKD-EPI)NonAf (60.0-200.0) BUN/Creatinine Ratio (12.00-20.00) Ratio Glucose (70-110) mg/dL POC Glucose (mg/dL) 203 H 146 H (75-99) mg/dL NT-Pro-B Natriuret Pep (0-125) pg/mL Crossmatch See Detail 10/21/21 10/21/21 10/21/21 Range/Units 05:40 05:40 07:25 RBC 2.40 L (4.10-5.20) X 10*6/uL Hgb 6.7 L* (12.0-15.0) g/dL Hct 23.8 L (37.2-46.3) % MCV 99.2 H (80.0-97.0) fL MCHC 28.2 L (32.0-37.0) g/dL RDW 17.5 H (11.5-14.5) % MPV 9.0 L (9.5-12.2) fL Immature Gran # 0.11 H (0.00-0.04) X 10*3/uL Monocytes # (0.20-1.00) X 10*3/uL Eosinophils # (0.04-0.35) X 10*3/uL Chloride 111 H (96-109) mmol/L Carbon Dioxide 16.4 L (20.0-27.5) mmol/L Anion Gap 9.60 L (10.00-18.00) mmol/L Est GFR (CKD-EPI)AfAm 47.5 L (60.0-200.0) Est GFR (CKD-EPI)NonAf 41.0 L (60.0-200.0) BUN/Creatinine Ratio 20.69 H (12.00-20.00) Ratio Glucose 117 H (70-110) mg/dL POC Glucose (mg/dL) 121 H (75-99) mg/dL NT-Pro-B Natriuret Pep (0-125) pg/mL Crossmatch Microbiology - Last 24 Hours (Table) 10/19/21 00:19 Urine Culture - Final Urine,Voided 10/19/21 03:12 Blood Culture - Preliminary Blood No Growth after 48 hours 10/19/21 03:30 Blood Culture - Preliminary Blood No Growth after 48 hours Assessment and Plan Plan: Acute urinary tract infection Continue cefepime, has history of infection by [id number] organisms Urine cultures 10/19 were not revealing D/w ID, will broaden the abx coverage to ertapenem, will repeat urine cx 10/21. Consult ID. History of left psoas muscle abscess patient was supposed to see surgery at [facility] in the office, continue outpatient follow-up JAVON Likely prerenal Avoid nephrotoxic medications Resolved Acute on chronic anemia, has history of recurrent GI bleeding from gastic angiodysplasia, has anemia of chronic disease on procrit shots outpatient -Hgb down again, will transfuse 1 unit of pRBC again. Got one unit on 10/20. -Continue to follow hgb. -Continue to monitor her stools, no sign of blood at this time -Slightly lower than baseline Chest pain, resolved. Echocardiogram done, has some aortic stenosis and mitral regurgitation as well as pulmonary hypertension Seen by cardiology, cleared, pain likely pleuritic Chronic conditions Hypertension- metoprolol currently controlled Hypothyroid- levothyroxine Diabetes mellitus- metformin on hold, insulin sliding scale, follow BS COPD with chronic hypoxic respiratory failure @ 3 L- Continue bronchdilators Depression resume antidepressants Anticipated discharge: 1-2 days
--- NOTE | 2021-10-21 11:43 | P.PN ---
Subjective This is a pleasant 70-year-old female past medical history significant for chronic heart failure with preserved ejection fraction, LVH, pulmonary hyp ertension, type 2 diabetes, dyslipidemia, COPD/asthma, chronic hypoxic respiratory failure on home oxygen, pericardial effusion, hypothyroidism, recurring UTI, Chronic sigmoid diverticulitis with colovesical fistula s/p descending colostomy creation with defunctionalized rectum, Rico's procedure in February 2021, left psoas abscess. She follows in the office with Dr. Oh. We have been asked to see in consultation for chest pain. Patient presents to the emergency department with complaints of chest tightness and stool noted in her urine. Patient states yesterday she had anterior chest tightness and wheezing yesterday. She states her chest tightness was worse and aggravated when she took a deep breath. Her chest pain was nonradiating, nonexertional. She denies any associated shortness of breath, diaphoresis, nausea, lightheadedness, dizziness. She states that her chest tightness has now resolved, she states she does take breathing treatments and PRN albuterol inhaler. She states she does follow at [facility] in regards to her fistula. 10/21/2021 Patient seen and examined at bedside. She has no further episodes of chest pain, no shortness of breath. She appears euvolemic on exam. Hemoglobin dropped to 6.5 yesterday, she received 1 unit of PRBC and Hgb 6.7 this morning. Echocardiogram revealed EF 5560 percent, aortic regurgitation, moderate aortic stenosis with peak/mean gradient of 34 mmHg/21 mmHg, mild to moderate mitral regurgitation, mild mitral stenosis with a peak/mean gradient of 11/4 mmHg, mild tricuspid regurgitation, moderate pulmonary hypertension, RVSP 48 Labs: WBC 9.2, hemoglobin 6.7, platelets 276, sodium 137, potassium 4.5, BUN 26, serum creatinine 1.3 troponin negative 3, proBNP 2033 (previsou 2350) PHYSICAL EXAMINATION Blood pressure 131/67, heart rate 69, afebrile, oxygen saturation 90% liters nasal cannula CONSTITUTIONAL: No apparent distress. HEENT: Neck Supple. No JVD. CHEST EXAMINATION: Lungs with bilateral expiratory wheezing to auscultation, slightly improved. HEART EXAMINATION: Regular rate and rhythm. S1, S2 heard. Systolic ejection murmur noted at apex and base ABDOMEN: Soft. Positive bowel sounds. EXTREMITIES: 2+ peripheral pulses, no lower extremity edema and no calf tenderness. NEUROLOGIC EXAMINATION: Patient is awake, alert and oriented x3. ASSESSMENT Chest pain, atypical, appears more pleuritic in nature, acute coronary syndrome has been ruled out Chronic heart failure with preserved ejection fraction Acute Kidney Injury Pulmonary hypertension Mild nonrehumatic aortic valve stenosis Mitral stenosis Dyslipidemia COPD/Asthma Anemia Type 2 Diabetes mellitus Hypertension Hypothyroidism Recurring UTI Chronic sigmoid diverticulitis with colovesical fistula s/p descending colostomy creation with defunctionalized rectum, Rico's procedure in February 2021 PLAN -Patient's chest pain prior to admission appears to be more pleuritic in nature. Acute coronary syndrome has been ruled out. Does not appear to be cardiac in etiology. -Continue home cardiac medications, atorvastatin and metoprolol succinate -Lasix held due to JAVON, restart Lasix when serum creatinine improved -From a cardiology perspective, no further work up at this time. We will follow the patient as needed. Please reconsult if needed. Follow up outpatient with Dr. Oh Nurse Practitioner note has been reviewed, I agree with a documented findings and plan of care. Patient was seen and examined. Objective - Vital Signs Vital signs: Vital Signs Temp 98.5 F 10/21/21 05:00 Pulse 70 10/21/21 11:04 Resp 20 10/21/21 05:00 BP 131/67 10/21/21 05:00 Pulse Ox 92 L 10/21/21 05:00 Intake & Output 10/20/21 10/21/21 10/21/21 18:59 06:59 18:59 Intake Total 1870 300 Output Total 200 300 Balance 1670 0 Intake: Intake, IV Titration 1560 Amount Sodium Chloride 0.9% 1, 1560 000 ml @ 130 mls/hr IV . Q7H42M [facility] Rx#:[id number] Oral 300 Blood Product 310 Rc As-1 Unit 310 [id number] Output: Stool 200 300 Other: Voiding Method Bedside Commode Bedside Commode # Voids 4 2 - Labs CBC & Chem 7: 10/21/21 05:40 10/21/21 05:40 Labs: Abnormal Lab Results - Last 24 Hours (Table) 10/20/21 10/20/21 10/20/21 Range/Units 05:44 11:25 12:07 RBC (4.10-5.20) X 10*6/uL Hgb (12.0-15.0) g/dL Hct (37.2-46.3) % MCV (80.0-97.0) fL MCHC (32.0-37.0) g/dL RDW (11.5-14.5) % MPV (9.5-12.2) fL Immature Gran # (0.00-0.04) X 10*3/uL Chloride (96-109) mmol/L Carbon Dioxide (20.0-27.5) mmol/L Anion Gap (10.00-18.00) mmol/L Est GFR (CKD-EPI)AfAm (60.0-200.0) Est GFR (CKD-EPI)NonAf (60.0-200.0) BUN/Creatinine Ratio (12.00-20.00) Ratio Glucose (70-110) mg/dL POC Glucose (mg/dL) 154 H (75-99) mg/dL NT-Pro-B Natriuret Pep 2034 H (0-125) pg/mL Crossmatch See Detail 10/20/21 10/20/21 10/21/21 Range/Units 17:10 20:23 05:40 RBC (4.10-5.20) X 10*6/uL Hgb (12.0-15.0) g/dL Hct (37.2-46.3) % MCV (80.0-97.0) fL MCHC (32.0-37.0) g/dL RDW (11.5-14.5) % MPV (9.5-12.2) fL Immature Gran # (0.00-0.04) X 10*3/uL Chloride 111 H (96-109) mmol/L Carbon Dioxide 16.4 L (20.0-27.5) mmol/L Anion Gap 9.60 L (10.00-18.00) mmol/L Est GFR (CKD-EPI)AfAm 47.5 L (60.0-200.0) Est GFR (CKD-EPI)NonAf 41.0 L (60.0-200.0) BUN/Creatinine Ratio 20.69 H (12.00-20.00) Ratio Glucose 117 H (70-110) mg/dL POC Glucose (mg/dL) 203 H 146 H (75-99) mg/dL NT-Pro-B Natriuret Pep (0-125) pg/mL Crossmatch 10/21/21 10/21/21 Range/Units 05:40 07:25 RBC 2.40 L (4.10-5.20) X 10*6/uL Hgb 6.7 L* (12.0-15.0) g/dL Hct 23.8 L (37.2-46.3) % MCV 99.2 H (80.0-97.0) fL MCHC 28.2 L (32.0-37.0) g/dL RDW 17.5 H (11.5-14.5) % MPV 9.0 L (9.5-12.2) fL Immature Gran # 0.11 H (0.00-0.04) X 10*3/uL Chloride (96-109) mmol/L Carbon Dioxide (20.0-27.5) mmol/L Anion Gap (10.00-18.00) mmol/L Est GFR (CKD-EPI)AfAm (60.0-200.0) Est GFR (CKD-EPI)NonAf (60.0-200.0) BUN/Creatinine Ratio (12.00-20.00) Ratio Glucose (70-110) mg/dL POC Glucose (mg/dL) 121 H (75-99) mg/dL NT-Pro-B Natriuret Pep (0-125) pg/mL Crossmatch Microbiology - Last 24 Hours (Table) 10/19/21 00:19 Urine Culture - Final Urine,Voided 10/19/21 03:12 Blood Culture - Preliminary Blood No Growth after 48 hours 10/19/21 03:30 Blood Culture - Preliminary Blood No Growth after 48 hours
[2021-10-21 12:25] LABS: Glucose,Whole Blood 151 mg/dL (75-99)
[2021-10-21] MEDS: FERROUS SULFATE 325 MG TAB PO SCH (15:26)
[2021-10-21 17:30] LABS: Glucose,Whole Blood 171 mg/dL (75-99)
[2021-10-21] MEDS: ERTAPENEM 0.5 GM in SODIUM CHLORIDE 0.9% 50 ML IVPB SCH (18:10)
[2021-10-21 20:19] LABS: Glucose,Whole Blood 174 mg/dL (75-99)
[2021-10-21] MEDS: ARIPiprazole 5 MG TAB PO SCH (20:50)
--- NOTE | 2021-10-21 21:04 | P.CONS ---
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 did have history of psoas abscess hypertension hyperlipidemia COPD on home O2 presented to the ER for evaluation of fecal material in her urine patient has been complaining of symptoms getting worse the last week or 2 she was complaining of dysuria and s uprapubic discomfort patient did have some nausea but warm no vomiting has been complaining of some shortness of breath and chest pain no cough or sputum production patient apparently has been on Bactrim DS today for about 2 days without any improvement with the center the patient presented to hospital on arrival to the ER patient was afebrile and no fever had recorded subsequently patient did have a normal white count initially repeat which was 11.57 subsequent white count has normalized patient did have a elevated BUN and creatinine has been borderline low exams are normal patient did have a positive UA with large leukocyte esterase more than 1-2 WBC culture subsequently came back negative patient was treated with initially with cefepime with persistent symptoms antibiotic was switched due to orthopnea and infectious disease was consulted for further management of antibiotic therapy Past Medical History Past Medical History: Asthma, Chest Pain / Angina, COPD, Diabetes Mellitus, Hyperlipidemia, Hypertension, Osteoarthritis (OA), Respiratory Disorder, Skin Disorder, Thyroid Disorder Additional Past Medical History / Comment(s): 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 glaucoma, chronic back pain and degenerative disk disease in the lumbar spine , nephrolithiasis, history of cellulitis in the legs and history of falls. The patient is also a recently quit smoker. History of Any Multi-Drug Resistant Organisms: VRE Year Discovered:: 02/18/21 MDRO Source:: Peritoneal Fluid-Abdominal Past Surgical History: Appendectomy, Bowel Resection, Section, Cholecystectomy, Orthopedic Surgery, Tubal Ligation Additional Past Surgical History / Comment(s): LASER SX JETHRO EYES FOR GLAUCOMA. RT KNEE ARTHROSCOPY. UNDERWENT PERCUTANEOUS NEPHROSTOLITHOTOMY, colostomy Past Anesthesia/Blood Transfusion Reactions: No Reported Reaction Past Psychological History: Anxiety, Depression Smoking Status: Former smoker Past Alcohol Use History: None Reported Past Drug Use History: None Reported - Past Family History Mother Family Medical History: COPD Additional Family Medical History / Comment(s): emphysema, heart valve problems, in her sleep. Brother(s) Family Medical History: Cancer Additional Family Medical History / Comment(s): from oral cancer Father Brother(s) Family Medical History: Cancer Additional Family Medical History / Comment(s): heart disease Medications and Allergies Home Medications Medication Instructions Recorded Confirmed Type ARIPiprazole [Abilify] 5 mg PO HS 02/07/18 10/19/21 History metFORMIN HCL [Glucophage] 1,000 mg PO BID-W/MEALS 02/07/18 10/19/21 History Atorvastatin [Lipitor] 40 mg PO DAILY #30 tab 09/10/18 10/19/21 Rx Levothyroxine Sodium [Synthroid] 200 mcg PO DAILY 09/03/19 10/19/21 History Albuterol Sulfate [Ventolin HFA] 1 - 2 puff INHALATION RT-Q6H PRN 03/11/20 10/19/21 History Escitalopram [Lexapro] 20 mg PO DAILY 03/11/20 10/19/21 History HYDROcodone/APAP 7.5-325MG [Badin 1 tab PO Q6H PRN #12 tab 03/27/20 10/19/21 Rx 7.5-325] Ipratropium-Albuterol Nebulize 3 ml INHALATION RT-Q2H PRN ml 03/27/20 10/19/21 Rx [Duoneb 0.5 mg-3 mg/3 ml Soln] traZODone HCL 100 mg PO HS PRN 05/15/20 10/19/21 History Magnesium Oxide [Mag-Ox] 400 mg PO DAILY 01/21/21 10/19/21 History Metoprolol Succinate (ER) [Toprol 50 mg PO DAILY #30 tab 02/23/21 10/19/21 Rx Xl] Albuterol Nebulized [Ventolin 2.5 mg INHALATION RT-Q6H 10/19/21 10/19/21 History Nebulized] Albuterol Sulfate [Albuterol 2 puff PO RT-Q6H PRN 10/19/21 10/19/21 History Sulfate Hfa] Cholecalciferol [Vitamin D3 (25 25 mcg PO DAILY 10/19/21 10/19/21 History Mcg = 1000 Iu)] Ferrous Sulfate [Feosol] 325 mg PO Q48H 10/19/21 10/19/21 History Furosemide [Lasix] 20 mg PO DAILY 10/19/21 10/19/21 History Pantoprazole Sodium [Protonix] 40 mg PO AC-BID 10/19/21 10/19/21 History Allergies Allergy/AdvReac Type Severity Reaction Status Date / Time adhesive Allergy Rash/Hives Verified 10/19/21 06:50 ciprofloxacin [From Cipro] Allergy Rash/Hives Verified 10/19/21 06:50 ciprofloxacin HCl Allergy Rash/Hives Verified 10/19/21 06:50 [From Cipro] latex Allergy Rash/Hives Verified 10/19/21 06:50 levofloxacin [From Levaquin] Allergy Rash/Hives Verified 10/19/21 06:50 nitrofurantoin Allergy Rash/Hives Verified 10/19/21 06:50 [From Macrobid] nitrofurantoin Allergy Rash/Hives Verified 10/19/21 06:50 macrocrystalline [From Macrobid] Penicillins Allergy Rash/Hives Verified 10/19/21 06:50 propoxyphene HCl Allergy Rash/Hives Verified 10/19/21 06:50 [From Darvon] propoxyphene napsylate Allergy Unknown Verified 10/19/21 06:50 [From Darvocet-N] sulfamethoxazole Allergy PIPPA Verified 10/19/21 06:50 [From Bactrim] trimethoprim [From Bactrim] Allergy PIPPA Verified 10/19/21 06:50 Physical Exam Vitals: Vital Signs Temp Pulse Pulse Resp BP BP Pulse Ox 10/21/21 11:04 70 10/21/21 10:52 64 10/21/21 05:00 98.5 F 69 20 131/67 92 L 10/20/21 20:44 98.4 F 78 18 163/67 95 10/20/21 19:05 74 10/20/21 18:57 70 10/20/21 18:19 97.7 F 70 20 156/70 95 10/20/21 16:17 98.3 F 77 21 163/56 95 10/20/21 16:05 84 10/20/21 15:56 86 10/20/21 15:47 97.6 F 69 18 160/65 94 L 10/20/21 15:37 97.9 F 72 18 166/66 96 10/20/21 12:42 98.1 F 70 20 93 L Intake and Output 10/20/21 10/21/21 10/21/21 22:59 06:59 14:59 Intake Total 1870 300 Output Total 300 Balance 1870 0 Intake: Intake, IV Titration 1560 Amount Sodium Chloride 0.9% 1, 1560 000 ml @ 130 mls/hr IV . Q7H42M [facility] Rx#:[id number] Oral 300 Blood Product 310 Rc As-1 Unit 310 [id number] Output: Stool 300 Other: Voiding Method Bedside Commode # Voids 1 2 Results CBC & Chem 7: 10/21/21 05:40 10/21/21 05:40 Labs: Abnormal Lab Results - Last 24 Hours (Table) 10/20/21 10/20/21 10/20/21 Range/Units 05:44 12:07 17:10 RBC (4.10-5.20) X 10*6/uL Hgb (12.0-15.0) g/dL Hct (37.2-46.3) % MCV (80.0-97.0) fL MCHC (32.0-37.0) g/dL RDW (11.5-14.5) % MPV (9.5-12.2) fL Immature Gran # (0.00-0.04) X 10*3/uL Chloride (96-109) mmol/L Carbon Dioxide (20.0-27.5) mmol/L Anion Gap (10.00-18.00) mmol/L Est GFR (CKD-EPI)AfAm (60.0-200.0) Est GFR (CKD-EPI)NonAf (60.0-200.0) BUN/Creatinine Ratio (12.00-20.00) Ratio Glucose (70-110) mg/dL POC Glucose (mg/dL) 203 H (75-99) mg/dL NT-Pro-B Natriuret Pep 2034 H (0-125) pg/mL Crossmatch See Detail 10/20/21 10/21/21 10/21/21 Range/Units 20:23 05:40 05:40 RBC 2.40 L (4.10-5.20) X 10*6/uL Hgb 6.7 L* (12.0-15.0) g/dL Hct 23.8 L (37.2-46.3) % MCV 99.2 H (80.0-97.0) fL MCHC 28.2 L (32.0-37.0) g/dL RDW 17.5 H (11.5-14.5) % MPV 9.0 L (9.5-12.2) fL Immature Gran # 0.11 H (0.00-0.04) X 10*3/uL Chloride 111 H (96-109) mmol/L Carbon Dioxide 16.4 L (20.0-27.5) mmol/L Anion Gap 9.60 L (10.00-18.00) mmol/L Est GFR (CKD-EPI)AfAm 47.5 L (60.0-200.0) Est GFR (CKD-EPI)NonAf 41.0 L (60.0-200.0) BUN/Creatinine Ratio 20.69 H (12.00-20.00) Ratio Glucose 117 H (70-110) mg/dL POC Glucose (mg/dL) 146 H (75-99) mg/dL NT-Pro-B Natriuret Pep (0-125) pg/mL Crossmatch 10/21/21 Range/Units 07:25 RBC (4.10-5.20) X 10*6/uL Hgb (12.0-15.0) g/dL Hct (37.2-46.3) % MCV (80.0-97.0) fL MCHC (32.0-37.0) g/dL RDW (11.5-14.5) % MPV (9.5-12.2) fL Immature Gran # (0.00-0.04) X 10*3/uL Chloride (96-109) mmol/L Carbon Dioxide (20.0-27.5) mmol/L Anion Gap (10.00-18.00) mmol/L Est GFR (CKD-EPI)AfAm (60.0-200.0) Est GFR (CKD-EPI)NonAf (60.0-200.0) BUN/Creatinine Ratio (12.00-20.00) Ratio Glucose (70-110) mg/dL POC Glucose (mg/dL) 121 H (75-99) mg/dL NT-Pro-B Natriuret Pep (0-125) pg/mL Crossmatch Microbiology - Last 24 Hours (Table) 10/19/21 00:19 Urine Culture - Final Urine,Voided 10/19/21 03:12 Blood Culture - Preliminary Blood No Growth after 48 hours 10/19/21 03:30 Blood Culture - Preliminary Blood No Growth after 48 hours Assessment and Plan Plan: 1-Patient presented to the hospital with dysuria patient did have fecal material through her urethra and this patient did have history of rectal rectal fistula status post terminal colostomy significantly positive UA concerning for symptomatic urinary tract infection failing outpatient Bactrim DS therapy, patient reported some improvement with cefepime but not complete resolution with a question of possible ESBL pathogen though initial urine culture came back negative 2-repeat UA and culture has been ordered 3-patient to continue with ertapenem while waiting for repeat urine culture to finalize determine her discharge antibiotics 4-gentle IV fluid We will follow on clinical condition and cultures to further adjust medication if needed Thank you for this consultation will follow this patient along with you
[2021-10-21] MEDS: traZODone HCL 100 MG TAB PO PRN (22:23)
[2021-10-22] MEDS: MORPHINE SULFATE 2 MG/ML SYRINGE IVP PRN ×3 (00:23→19:20)
[2021-10-22] MEDS: HEPARIN SODIUM,PORCINE/PF 5,000 UNIT/0.5 ML SYRINGE SQ SCH ×3 (00:23→16:12)
[2021-10-22] MEDS: SODIUM CHLORIDE 0.9% 1,000 ML IV SCH ×3 (04:23→16:12)
[2021-10-22] MEDS: LEVOTHYROXINE 100 MCG TAB PO SCH (05:55)
[2021-10-22] MEDS: ALBUTEROL NEBULIZED 2.5 MG/3 ML INHALATION SCH ×4 (07:14→19:43)
[2021-10-22 07:19] LABS: Glucose,Whole Blood 157 mg/dL (75-99)
[2021-10-22] MEDS: PANTOPRAZOLE 40 MG TABLET PO SCH ×2 (08:36→17:33)
[2021-10-22] MEDS: ESCITALOPRAM 20 MG TAB PO SCH (08:36)
[2021-10-22] MEDS: MAGNESIUM OXIDE 400 MG TAB PO SCH (08:36)
[2021-10-22] MEDS: ATORVASTATIN 40 MG TAB PO SCH (08:37)
[2021-10-22] MEDS: CHOLECALCIFEROL 25 MCG (1000 IU) TABLET PO SCH (08:37)
[2021-10-22] MEDS: METOPROLOL SUCCINATE (ER) 50 MG TAB.ER.24H PO SCH (08:37)
[2021-10-22 11:32] LABS: Glucose,Whole Blood 182 mg/dL (75-99)
[2021-10-22] MEDS: INSULIN ASPART (NovoLOG) 100 UNIT/ML VIAL SQ SCH ×4 (11:38→20:48)
[2021-10-22 11:44] LABS: Basophils # (A) 0.04 X 10*3/uL (0.00-0.10); Basophils % (A) 0.3 %; Eosinophils # (A) 0.31 X 10*3/uL (0.04-0.35); Eosinophils % (A) 2.4 %; HCT 26.9 % (37.2-46.3); HGB 7.4 g/dL (12.0-15.0); Immature Grans, Automated 1.2 %; Lymphocytes # (A) 0.96 X 10*3/uL (0.90-5.00); Lymphocytes % (A) 7.3 %; MCH 27.7 pg (27.0-32.0); MCHC 27.5 g/dL (32.0-37.0); MCV 100.7 fL (80.0-97.0); Mean Platelet Volume 8.9 fL (9.5-12.2); Monocytes # (A) 1.06 X 10*3/uL (0.20-1.00); NRBC Per 100 WBC 0 /100 WBCS (0.0-0.0); Neutrophils # (A) 10.64 X 10*3/uL (1.80-7.70); Neutrophils % (A) 80.8 %; Platelet Count 264 X 10*3/uL (140-440); RBC 2.67 X 10*6/uL (4.10-5.20); RDW 17.6 % (11.5-14.5); WBC 13.17 X 10*3/uL (4.50-10.00)
[2021-10-22] MEDS: HYDROcodone/APAP 7.5-325MG 1 EACH TAB PO PRN (12:54)
[2021-10-22 13:05] LABS: Appearance,Urine Cloudy (Clear); Bacteria,Urine Few /hpf; Bilirubin,Urine Negative (Negative); Blood,Urine Small (Negative); Color,Urine Dark Brown; Glucose,Urine (UA) Negative (Negative); Ketones,Urine Negative (Negative); Leukocyte Esterase,Urine Large (Negative); Nitrite,Urine Positive (Negative); Protein,Urine 1+ (Negative); RBC,Urine 4 /hpf (0-5); Specific Gravity,Urine 1.011 (1.001-1.035); Squamous Epithelial Cell,Urine 2 /hpf (0-4); WBC,Urine 97 /hpf (0-5)
--- NOTE | 2021-10-22 14:58 | P.PN ---
Subjective Progress Note Date: 10/22/21 Principal diagnosis: chest pain and UTI Feeling better, no overnight events. No fevers or chills no urinary symptoms. Objective - Vital Signs Vital signs: Vital Signs Temp 98.8 F 10/22/21 13:00 Pulse 81 10/22/21 13:00 Resp 18 10/22/21 13:00 BP 160/73 10/22/21 13:00 Pulse Ox 96 10/22/21 13:00 Intake & Output 10/21/21 10/22/21 10/22/21 18:59 06:59 18:59 Intake Total 1560 1560 Balance 1560 1560 Intake: Intake, IV Titration 1560 1560 Amount Sodium Chloride 0.9% 1, 1560 1560 000 ml @ 130 mls/hr IV . Q7H42M [facility] Rx#:[id number] Other: Voiding Method Bedside Commode Bedside Commode # Voids 4 2 - Exam Constitutional: No acute distress, conversant, pleasant Eyes:Anicteric sclerae, moist conjunctiva, no lid-lag, PERRLA, ENMT: Oropharynx clear, no erythema, exudates Neck: Supple, FROM, no masses, or JVD, No carotid bruits, No thyromegaly Lungs: Clear to auscultation, Clear to percussion, Normal respiratory effort, no accessory muscle use Cardiovascular: Heart regular in rate and rhythm, No murmurs, gallops, or rubs, No peripheral edema Abdominal: Soft, Nontender, no guarding, rebound or rigidity, Normoactive bowel sounds, No hepatomegaly, No splenomegaly, No palpable mass Skin: Normal temperature, tone, texture, turgor, no induration, No subcutaneous nodules, No rash, lesions, No ulcers Extremities: No digital cyanosis, No clubbing, Pedal pulses intact and symmetrical, Radial pulses intact and symmetrical, No calf tenderness Psychiatric: Alert and oriented to person, place and time, appropriate affect, intact judgement Neuro: Muscles Strength 5/5 in all 4 extremities, Sensation to light touch grossly present throughout, Cranial nerves II-XII grossly intact, no focal sensory deficits - Labs CBC & Chem 7: 10/22/21 06:14 10/21/21 05:40 Labs: Abnormal Lab Results - Last 24 Hours (Table) 10/21/21 10/21/21 10/22/21 Range/Units 17:13 20:17 06:14 WBC 13.17 H (4.50-10.00) X 10*3/uL RBC 2.67 L (4.10-5.20) X 10*6/uL Hgb 7.4 L (12.0-15.0) g/dL Hct 26.9 L (37.2-46.3) % MCV 100.7 H (80.0-97.0) fL MCHC 27.5 L (32.0-37.0) g/dL RDW 17.6 H (11.5-14.5) % MPV 8.9 L (9.5-12.2) fL Immature Gran # 0.16 H (0.00-0.04) X 10*3/uL Neutrophils # 10.64 H (1.80-7.70) X 10*3/uL Monocytes # 1.06 H (0.20-1.00) X 10*3/uL POC Glucose (mg/dL) 171 H 174 H (75-99) mg/dL Urine Appearance (Clear) Urine Protein (Negative) Urine Blood (Negative) Urine Nitrite (Negative) Ur Leukocyte Esterase (Negative) Urine WBC (0-5) /hpf Urine Bacteria (None) /hpf 10/22/21 10/22/21 10/22/21 Range/Units 07:17 11:29 12:37 WBC (4.50-10.00) X 10*3/uL RBC (4.10-5.20) X 10*6/uL Hgb (12.0-15.0) g/dL Hct (37.2-46.3) % MCV (80.0-97.0) fL MCHC (32.0-37.0) g/dL RDW (11.5-14.5) % MPV (9.5-12.2) fL Immature Gran # (0.00-0.04) X 10*3/uL Neutrophils # (1.80-7.70) X 10*3/uL Monocytes # (0.20-1.00) X 10*3/uL POC Glucose (mg/dL) 157 H 182 H (75-99) mg/dL Urine Appearance Cloudy H (Clear) Urine Protein 1+ H (Negative) Urine Blood Small H (Negative) Urine Nitrite Positive H (Negative) Ur Leukocyte Esterase Large H (Negative) Urine WBC 97 H (0-5) /hpf Urine Bacteria Few H (None) /hpf Microbiology - Last 24 Hours (Table) 10/19/21 03:30 Blood Culture - Preliminary Blood No Growth after 72 hours 10/19/21 03:12 Blood Culture - Preliminary Blood No Growth after 72 hours 10/21/21 11:00 Urine Culture - Preliminary Urine,Voided Assessment and Plan Plan: Acute urinary tract infection Continue cefepime, has history of infection by [id number] organisms Urine cultures 10/19 were not revealing D/w ID, will broaden the abx coverage to ertapenem, will repeat urine cx 10/21. Consult ID. 10/22: urine cx pending, continue ertapenem. 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 -Continue to follow hgb. -Continue to monitor her stools, no sign of blood at this time -Slightly lower than baseline Chest pain, resolved. Echocardiogram done, has some aortic stenosis and mitral regurgitation as well as pulmonary hypertension Seen by cardiology, cleared, pain likely pleuritic Chronic conditions Hypertension- metoprolol currently controlled Hypothyroid- levothyroxine Diabetes mellitus- metformin on hold, insulin sliding scale, follow BS COPD with chronic hypoxic respiratory failure @ 3 L- Continue bronchdilators Depression resume antidepressants Anticipated discharge: 1-2 days
[2021-10-22 16:53] LABS: Glucose,Whole Blood 123 mg/dL (75-99)
[2021-10-22] MEDS: ERTAPENEM 0.5 GM in SODIUM CHLORIDE 0.9% 50 ML IVPB SCH (17:33)
[2021-10-22 20:05] LABS: Glucose,Whole Blood 181 mg/dL (75-99)
[2021-10-22] MEDS: ARIPiprazole 5 MG TAB PO SCH (20:48)
[2021-10-22] MEDS: traZODone HCL 100 MG TAB PO PRN (20:48)
[2021-10-22 21:14] LABS: African American GFR (CKD) 49.3 (60.0-200.0); Anion Gap 15.3 mmol/L (10.00-18.00); BUN/Creat Ratio 16.83 Ratio (12.00-20.00); Blood Urea Nitrogen 21.2 mg/dL (9.0-27.0); Calcium 8.8 mg/dL (8.7-10.3); Carbon Dioxide 14.4 mmol/L (20.0-27.5); Non-African American GFR(CKD) 42.5 (60.0-200.0)
[2021-10-23] MEDS: HYDROcodone/APAP 7.5-325MG 1 EACH TAB PO PRN ×4 (00:34→20:38)
[2021-10-23] MEDS: HEPARIN SODIUM,PORCINE/PF 5,000 UNIT/0.5 ML SYRINGE SQ SCH ×4 (00:34→23:44)
--- NOTE | 2021-10-23 00:42 | P.PN ---
Subjective Progress Note Date: 10/22/21 Principal diagnosis: Recurrent urinary tract infection Patient is a 71-year-old female with a past medical history significant for diverticulitis, iliopsoas abscess and did have a diverting colostomy concerning for possible fistula presented to hospital with urinary bur elaina discomfort and possibly some fecal material through the urethra did have a positive a concern for symptomatic intact infection. On today's evaluation that is 10/22/2021, the patient denies having any fever or any chills the patient is feeling slightly better, the patient urinary burning has slightly decreased intensity no nausea no vomiting no abdominal pain no diarrhea Objective - Vital Signs Vital signs: Vital Signs Temp 98.8 F 10/22/21 13:00 Pulse 81 10/22/21 13:00 Resp 18 10/22/21 13:00 BP 160/73 10/22/21 13:00 Pulse Ox 96 10/22/21 13:00 Intake & Output 10/21/21 10/22/21 10/22/21 18:59 06:59 18:59 Intake Total 1560 1560 Balance 1560 1560 Intake: Intake, IV Titration 1560 1560 Amount Sodium Chloride 0.9% 1, 1560 1560 000 ml @ 130 mls/hr IV . Q7H42M [facility] Rx#:[id number] Other: Voiding Method Bedside Commode Bedside Commode # Voids 4 2 - Exam GENERAL DESCRIPTION: An elderly female up in the chair in no distress RESPIRATORY SYSTEM: Unlabored breathing , decreased breath sounds at bases HEART: S1 S2 regular rate and rhythm , ABDOMEN: Soft , no tenderness EXTREMITIES: No edema feet - Labs CBC & Chem 7: 10/22/21 06:14 10/22/21 06:14 Labs: Abnormal Lab Results - Last 24 Hours (Table) 10/21/21 10/21/21 10/22/21 Range/Units 17:13 20:17 06:14 WBC 13.17 H (4.50-10.00) X 10*3/uL RBC 2.67 L (4.10-5.20) X 10*6/uL Hgb 7.4 L (12.0-15.0) g/dL Hct 26.9 L (37.2-46.3) % MCV 100.7 H (80.0-97.0) fL MCHC 27.5 L (32.0-37.0) g/dL RDW 17.6 H (11.5-14.5) % MPV 8.9 L (9.5-12.2) fL Immature Gran # 0.16 H (0.00-0.04) X 10*3/uL Neutrophils # 10.64 H (1.80-7.70) X 10*3/uL Monocytes # 1.06 H (0.20-1.00) X 10*3/uL POC Glucose (mg/dL) 171 H 174 H (75-99) mg/dL Urine Appearance (Clear) Urine Protein (Negative) Urine Blood (Negative) Urine Nitrite (Negative) Ur Leukocyte Esterase (Negative) Urine WBC (0-5) /hpf Urine Bacteria (None) /hpf 10/22/21 10/22/21 10/22/21 Range/Units 07:17 11:29 12:37 WBC (4.50-10.00) X 10*3/uL RBC (4.10-5.20) X 10*6/uL Hgb (12.0-15.0) g/dL Hct (37.2-46.3) % MCV (80.0-97.0) fL MCHC (32.0-37.0) g/dL RDW (11.5-14.5) % MPV (9.5-12.2) fL Immature Gran # (0.00-0.04) X 10*3/uL Neutrophils # (1.80-7.70) X 10*3/uL Monocytes # (0.20-1.00) X 10*3/uL POC Glucose (mg/dL) 157 H 182 H (75-99) mg/dL Urine Appearance Cloudy H (Clear) Urine Protein 1+ H (Negative) Urine Blood Small H (Negative) Urine Nitrite Positive H (Negative) Ur Leukocyte Esterase Large H (Negative) Urine WBC 97 H (0-5) /hpf Urine Bacteria Few H (None) /hpf Microbiology - Last 24 Hours (Table) 10/19/21 03:30 Blood Culture - Preliminary Blood No Growth after 72 hours 10/19/21 03:12 Blood Culture - Preliminary Blood No Growth after 72 hours 10/21/21 11:00 Urine Culture - Preliminary Urine,Voided Assessment and Plan (1) Urinary tract infection Current Visit: Yes Status: Acute Code(s): N39.0 - URINARY TRACT INFECTION, SITE NOT SPECIFIED SNOMED Code(s): 61621705 Plan: 1-Patient presented to the hospital with dysuria patient did have fecal material through her urethra and this patient did have history of rectal rectal fistula status post terminal colostomy significantly positive UA concerning for symptomatic urinary tract infection failing outpatient Bactrim DS therapy, patient reported some improvement with cefepime but not complete resolution with a question of possible ESBL pathogen though initial urine culture came back negative 2-repeat UA and culture are currently pending 3-patient to continue with ertapenem while waiting for repeat urine culture to finalize determine her discharge antibiotics Time with Patient: Less than 30
[2021-10-23] MEDS: SODIUM CHLORIDE 0.9% 1,000 ML IV SCH ×4 (05:39→17:38)
[2021-10-23] MEDS: LEVOTHYROXINE 100 MCG TAB PO SCH (05:59)
[2021-10-23 07:15] LABS: Glucose,Whole Blood 142 mg/dL (75-99)
[2021-10-23] MEDS: ALBUTEROL NEBULIZED 2.5 MG/3 ML INHALATION SCH ×4 (07:26→19:31)
[2021-10-23] MEDS: MAGNESIUM OXIDE 400 MG TAB PO SCH (07:47)
[2021-10-23] MEDS: METOPROLOL SUCCINATE (ER) 50 MG TAB.ER.24H PO SCH (07:47)
[2021-10-23] MEDS: ESCITALOPRAM 20 MG TAB PO SCH (07:47)
[2021-10-23] MEDS: ATORVASTATIN 40 MG TAB PO SCH (07:48)
[2021-10-23] MEDS: PANTOPRAZOLE 40 MG TABLET PO SCH ×2 (07:48→17:37)
[2021-10-23] MEDS: CHOLECALCIFEROL 25 MCG (1000 IU) TABLET PO SCH (07:48)
[2021-10-23] MEDS: INSULIN ASPART (NovoLOG) 100 UNIT/ML VIAL SQ SCH ×3 (07:48→17:38)
[2021-10-23 11:19] LABS: Glucose,Whole Blood 156 mg/dL (75-99)
--- NOTE | 2021-10-23 12:08 | P.PN ---
Subjective Progress Note Date: 10/23/21 Principal diagnosis: chest pain and UTI Patient asking to go home, she has no urinary symptoms currently. No fevers or chills. No pain. Objective - Vital Signs Vital signs: Vital Signs Temp 98.7 F 10/23/21 05:00 Pulse 68 10/23/21 11:00 Resp 18 10/23/21 05:00 BP 117/63 10/23/21 07:52 Pulse Ox 94 L 10/23/21 05:00 Intake & Output 10/22/21 10/23/21 10/23/21 18:59 06:59 18:59 Intake Total 1560 Balance 1560 Intake: Intake, IV Titration 1560 Amount Sodium Chloride 0.9% 1, 1560 000 ml @ 130 mls/hr IV . Q7H42M [facility] Rx#:[id number] Other: Voiding Method Bedside Commode Bedside Commode Bedside Commode # Voids 4 2 - Exam Constitutional: No acute distress, conversant, pleasant Eyes:Anicteric sclerae, moist conjunctiva, no lid-lag, PERRLA, ENMT: Oropharynx clear, no erythema, exudates Neck: Supple, FROM, no masses, or JVD, No carotid bruits, No thyromegaly Lungs: Clear to auscultation, Clear to percussion, Normal respiratory effort, no accessory muscle use Cardiovascular: Heart regular in rate and rhythm, No murmurs, gallops, or rubs, No peripheral edema Abdominal: Soft, Nontender, no guarding, rebound or rigidity, Normoactive bowel sounds, No hepatomegaly, No splenomegaly, No palpable mass Skin: Normal temperature, tone, texture, turgor, no induration, No subcutaneous nodules, No rash, lesions, No ulcers Extremities: No digital cyanosis, No clubbing, Pedal pulses intact and symmetrical, Radial pulses intact and symmetrical, No calf tenderness Psychiatric: Alert and oriented to person, place and time, appropriate affect, intact judgement Neuro: Muscles Strength 5/5 in all 4 extremities, Sensation to light touch grossly present throughout, Cranial nerves II-XII grossly intact, no focal sensory deficits - Labs CBC & Chem 7: 10/22/21 06:14 10/22/21 06:14 Labs: Abnormal Lab Results - Last 24 Hours (Table) 10/22/21 10/22/21 10/22/21 Range/Units 06:14 12:37 16:52 Sodium 147 H (135-145) mmol/L Chloride 117 H (96-109) mmol/L Carbon Dioxide 14.4 L (20.0-27.5) mmol/L Est GFR (CKD-EPI)AfAm 49.3 L (60.0-200.0) Est GFR (CKD-EPI)NonAf 42.5 L (60.0-200.0) Glucose 154 H (70-110) mg/dL POC Glucose (mg/dL) 123 H (75-99) mg/dL Urine Appearance Cloudy H (Clear) Urine Protein 1+ H (Negative) Urine Blood Small H (Negative) Urine Nitrite Positive H (Negative) Ur Leukocyte Esterase Large H (Negative) Urine WBC 97 H (0-5) /hpf Urine Bacteria Few H (None) /hpf 10/22/21 10/23/21 10/23/21 Range/Units 20:03 07:14 11:18 Sodium (135-145) mmol/L Chloride (96-109) mmol/L Carbon Dioxide (20.0-27.5) mmol/L Est GFR (CKD-EPI)AfAm (60.0-200.0) Est GFR (CKD-EPI)NonAf (60.0-200.0) Glucose (70-110) mg/dL POC Glucose (mg/dL) 181 H 142 H 156 H (75-99) mg/dL Urine Appearance (Clear) Urine Protein (Negative) Urine Blood (Negative) Urine Nitrite (Negative) Ur Leukocyte Esterase (Negative) Urine WBC (0-5) /hpf Urine Bacteria (None) /hpf Microbiology - Last 24 Hours (Table) 10/19/21 03:30 Blood Culture - Preliminary Blood No Growth after 96 hours 10/19/21 03:12 Blood Culture - Preliminary Blood No Growth after 96 hours Assessment and Plan Plan: Acute urinary tract infection Continue cefepime, has history of infection by [id number] organisms Urine cultures 10/19 were not revealing D/w ID, will broaden the abx coverage to ertapenem, will repeat urine cx 10/21. Consult ID. 10/22: urine cx pending, continue ertapenem. ID following 10/23: urine cx still pending, continue ertapenem. D/w ID. History of left psoas muscle abscess patient was supposed to see surgery at [facility] in the office, continue outpatient follow-up JAVON Likely prerenal Avoid nephrotoxic medications Resolved Acute on chronic anemia, has history of recurrent GI bleeding from gastic angiodysplasia, has anemia of chronic disease on procrit shots outpatient -Got one unit on 10/20. -Continue to follow hgb. -Continue to monitor her stools, no sign of blood at this time -Slightly lower than baseline Chest pain, resolved. Echocardiogram done, has some aortic stenosis and mitral regurgitation as well as pulmonary hypertension Seen by cardiology, cleared, pain likely pleuritic Chronic conditions Hypertension- metoprolol currently controlled Hypothyroid- levothyroxine Diabetes mellitus- metformin on hold, insulin sliding scale, follow BS COPD with chronic hypoxic respiratory failure @ 3 L- Continue bronchdilators Depression resume antidepressants Anticipated discharge: in am after urine cx comes back
[2021-10-23 12:27] VITALS: RESP 20
[2021-10-23 17:14] LABS: Glucose,Whole Blood 134 mg/dL (75-99)
[2021-10-23] MEDS: FERROUS SULFATE 325 MG TAB PO SCH (17:37)
[2021-10-23] MEDS: ERTAPENEM 0.5 GM in SODIUM CHLORIDE 0.9% 50 ML IVPB SCH (17:38)
--- NOTE | 2021-10-23 17:38 | P.PN ---
Subjective Progress Note Date: 10/23/21 Principal diagnosis: Recurrent urinary tract infection Patient is a 71-year-old female with a past medical history significant for diverticulitis, iliopsoas abscess and did have a diverting colostomy concerning for possible fistula presented to hospital with urinary bur elaina discomfort and possibly some fecal material through the urethra did have a positive a concern for symptomatic intact infection. On today's evaluation that is 10/23/2021, the patient remains to be afebrile, the patient is denies any chest pain shortness of breath or cough, the patient urinary symptoms have decreased in intensity and no abdominal pain no nausea no vomiting or diarrhea Objective - Vital Signs Vital signs: Vital Signs Temp 97.8 F 10/23/21 12:26 Pulse 70 10/23/21 15:23 Resp 20 10/23/21 12:26 BP 133/67 10/23/21 12:26 Pulse Ox 97 10/23/21 12:26 Intake & Output 10/22/21 10/23/21 10/23/21 18:59 06:59 18:59 Intake Total 1560 Balance 1560 Intake: Intake, IV Titration 1560 Amount Sodium Chloride 0.9% 1, 1560 000 ml @ 130 mls/hr IV . Q7H42M [facility] Rx#:[id number] Other: Voiding Method Bedside Commode Bedside Commode Bedside Commode # Voids 4 2 # Bowel Movements 1 - Exam GENERAL DESCRIPTION: An elderly female up in the chair in no distress RESPIRATORY SYSTEM: Unlabored breathing , decreased breath sounds at bases HEART: S1 S2 regular rate and rhythm , ABDOMEN: Soft , no tenderness EXTREMITIES: No edema feet - Labs CBC & Chem 7: 10/22/21 06:14 10/22/21 06:14 Labs: Abnormal Lab Results - Last 24 Hours (Table) 10/22/21 10/22/21 10/22/21 Range/Units 06:14 16:52 20:03 Sodium 147 H (135-145) mmol/L Chloride 117 H (96-109) mmol/L Carbon Dioxide 14.4 L (20.0-27.5) mmol/L Est GFR (CKD-EPI)AfAm 49.3 L (60.0-200.0) Est GFR (CKD-EPI)NonAf 42.5 L (60.0-200.0) Glucose 154 H (70-110) mg/dL POC Glucose (mg/dL) 123 H 181 H (75-99) mg/dL 10/23/21 10/23/21 Range/Units 07:14 11:18 Sodium (135-145) mmol/L Chloride (96-109) mmol/L Carbon Dioxide (20.0-27.5) mmol/L Est GFR (CKD-EPI)AfAm (60.0-200.0) Est GFR (CKD-EPI)NonAf (60.0-200.0) Glucose (70-110) mg/dL POC Glucose (mg/dL) 142 H 156 H (75-99) mg/dL Microbiology - Last 24 Hours (Table) 10/19/21 03:30 Blood Culture - Preliminary Blood No Growth after 96 hours 10/19/21 03:12 Blood Culture - Preliminary Blood No Growth after 96 hours Assessment and Plan (1) Urinary tract infection Current Visit: Yes Status: Acute Code(s): N39.0 - URINARY TRACT INFECTION, SITE NOT SPECIFIED SNOMED Code(s): 11576329 Plan: 1-Patient presented to the hospital with dysuria patient did have fecal material through her urethra and this patient did have 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
[2021-10-23 20:27] LABS: Glucose,Whole Blood 157 mg/dL (75-99)
[2021-10-23] MEDS: ARIPiprazole 5 MG TAB PO SCH (20:38)
[2021-10-23] MEDS: traZODone HCL 100 MG TAB PO PRN (22:17)
[2021-10-24] MEDS: LEVOTHYROXINE 100 MCG TAB PO SCH (05:47)
[2021-10-24 07:15] LABS: Glucose,Whole Blood 162 mg/dL (75-99)
[2021-10-24] MEDS: ALBUTEROL NEBULIZED 2.5 MG/3 ML INHALATION SCH ×4 (07:22→19:13)
[2021-10-24] MEDS: CHOLECALCIFEROL 25 MCG (1000 IU) TABLET PO SCH (08:04)
[2021-10-24] MEDS: MAGNESIUM OXIDE 400 MG TAB PO SCH (08:04)
[2021-10-24] MEDS: PANTOPRAZOLE 40 MG TABLET PO SCH ×2 (08:04→18:06)
[2021-10-24] MEDS: HYDROcodone/APAP 7.5-325MG 1 EACH TAB PO PRN ×2 (08:04→14:53)
[2021-10-24] MEDS: METOPROLOL SUCCINATE (ER) 50 MG TAB.ER.24H PO SCH (08:04)
[2021-10-24] MEDS: INSULIN ASPART (NovoLOG) 100 UNIT/ML VIAL SQ SCH ×3 (08:04→17:54)
[2021-10-24] MEDS: ATORVASTATIN 40 MG TAB PO SCH (08:04)
[2021-10-24] MEDS: HEPARIN SODIUM,PORCINE/PF 5,000 UNIT/0.5 ML SYRINGE SQ SCH ×2 (08:05→14:53)
[2021-10-24] MEDS: ESCITALOPRAM 20 MG TAB PO SCH (08:05)
[2021-10-24] MEDS: SODIUM CHLORIDE 0.9% 1,000 ML IV SCH ×2 (08:06→16:48)
[2021-10-24 11:29] VITALS: PULSE 70
[2021-10-24 12:15] LABS: Glucose,Whole Blood 175 mg/dL (75-99)
[2021-10-24 12:41] VITALS: BP 153/66; TEMP 98
--- NOTE | 2021-10-24 14:58 | P.PN ---
Subjective Patient was examined at bedside today not complaining of any new symptomatology. We are waiting for benign placement and will be discharge home with home health care as per case management and RN. Continues to be on 3-4 L nasal cannula maintaining saturations above 90% secondary to COPD. Objective - Vital Signs Vital signs: Vital Signs Temp 98 F 10/24/21 12:40 Pulse 70 10/24/21 12:40 Resp 20 10/24/21 12:40 BP 153/66 10/24/21 12:40 Pulse Ox 96 10/24/21 12:40 Intake & Output 10/23/21 10/24/21 10/24/21 18:59 06:59 18:59 Intake Total 300 Output Total 400 Balance -100 Intake: Oral 300 Output: Stool 400 Other: Voiding Method Bedside Commode Bedside Commode Bedside Commode # Voids 5 2 # Bowel Movements 1 1 - Exam Constitutional: No acute distress, conversant, pleasant Eyes:Anicteric sclerae, moist conjunctiva, no lid-lag, PERRLA, ENMT: Oropharynx clear, no erythema, exudates Neck: Supple, FROM, no masses, or JVD, No carotid bruits, No thyromegaly Lungs: Clear to auscultation, Clear to percussion, Normal respiratory effort, no accessory muscle use Cardiovascular: Heart regular in rate and rhythm, No murmurs, gallops, or rubs, No peripheral edema Abdominal: Soft, Nontender, no guarding, rebound or rigidity, Normoactive bowel sounds, No hepatomegaly, No splenomegaly, No palpable mass Skin: Normal temperature, tone, texture, turgor, no induration, No subcutaneous nodules, No rash, lesions, No ulcers - Labs CBC & Chem 7: 10/22/21 06:14 10/22/21 06:14 Labs: Abnormal Lab Results - Last 24 Hours (Table) 10/23/21 10/23/21 10/24/21 Range/Units 17:11 20:07 07:12 POC Glucose (mg/dL) 134 H 157 H 162 H (75-99) mg/dL 10/24/21 Range/Units 11:46 POC Glucose (mg/dL) 175 H (75-99) mg/dL Microbiology - Last 24 Hours (Table) 10/21/21 11:00 Urine Culture - Preliminary Urine,Voided Enterococcus faecium VRE 10/19/21 03:12 Blood Culture - Preliminary Blood No Growth after 120 hours 10/19/21 03:30 Blood Culture - Preliminary Blood No Growth after 120 hours Assessment and Plan Assessment: Assessment: #1 acute urinary tract szhysudce-ggbqgyqgf-gnsynlvaa organisms #2 history of left psoas muscle abscess #3 acute kidney injury likely prerenal resolved #4 acute on chronic anemia history of recurrent GI bleeding from gastric angiodysplasia on Procrit shots outpatient #5 chest pain most likely muscle skeletal #6 essential hypertension #7 hyperlipidemia #8 COPD on 3 L nasal cannula #9 diabetes mellitus [id number] Plan: -Admit to medicine for close monitoring -Aspiration/fall precaution -Midline ordered by ID -Continue with antimicrobials as per the recommendations, prescription left by their service. to follow up outpatient with serial labs -As per case management patient will be discharge home with home health care -Due to prophylaxis heparin 3 times a day
[2021-10-24 15:23] LABS: African American GFR (CKD) 55.1 (60.0-200.0); BUN/Creat Ratio 14.43 Ratio (12.00-20.00); Blood Urea Nitrogen 16.6 mg/dL (9.0-27.0); Calcium 9.1 mg/dL (8.7-10.3); Carbon Dioxide 19.1 mmol/L (20.0-27.5); Non-African American GFR(CKD) 47.5 (60.0-200.0); Potassium 4.4 mmol/L (3.5-5.5)
[2021-10-24 15:25] LABS: Basophils # (A) 0.02 X 10*3/uL (0.00-0.10); Basophils % (A) 0.2 %; Eosinophils # (A) 0.25 X 10*3/uL (0.04-0.35); Eosinophils % (A) 2.2 %; HCT 24.3 % (37.2-46.3); HGB 6.7 g/dL (12.0-15.0); Immature Grans, Automated 0.6 %; Lymphocytes # (A) 0.67 X 10*3/uL (0.90-5.00); Lymphocytes % (A) 5.9 %; MCH 28.2 pg (27.0-32.0); MCHC 27.6 g/dL (32.0-37.0); MCV 102.1 fL (80.0-97.0); Mean Platelet Volume 9.2 fL (9.5-12.2); Monocytes # (A) 0.77 X 10*3/uL (0.20-1.00); Monocytes % (A) 6.8 %; NRBC Per 100 WBC 0 /100 WBCS (0.0-0.0); Neutrophils % (A) 84.3 %; Platelet Count 269 X 10*3/uL (140-440); RBC 2.38 X 10*6/uL (4.10-5.20); RDW 17.2 % (11.5-14.5); WBC 11.38 X 10*3/uL (4.50-10.00)
[2021-10-24 16:29] LABS: Anisocytosis Slight; HCT 25.3 % (34.0-46.0); HGB 7.7 gm/dL (11.4-16.0); Hypochromasia Marked; MCH 29.5 pg (25.0-35.0); MCHC 30.3 g/dL (31.0-37.0); MCV 97.3 fL (80.0-100.0); Macrocytosis Slight; Mean Platelet Volume 7.5; Platelet Count 304 k/uL (150-450); Poikilocytosis Slight; RDW 16.5 % (11.5-15.5); WBC 12.1 k/uL (3.8-10.6)
[2021-10-24 17:29] LABS: Glucose,Whole Blood 127 mg/dL (75-99)
--- NOTE | 2021-10-24 18:14 | P.DS ---
Providers Date of admission: 10/19/21 02:51 Expected date of discharge: 10/24/21 Attending physician: Noelle Colorado MD Consults: 10/19/21 16:19 Consult Physician Routine Consulting Provider: Tyrone Kessler Consult Reason/Comments: chest pain Do you want consulting provider notified?: Yes 10/20/21 17:01 Consult Physician Routine Consulting Provider: Mayco Jaffe Consult Reason/Comments: uti Do you want consulting provider notified?: Yes Primary care physician: [facility] Course: The patient is 71-year-old female with extensive PMH including rectovesicular fistula status post diverting colostomy (02/2021), psoas abscess, TYPE 2 DM, hypertension, hyperlipidemia, COPD, chronic hypoxic respiratory failure on 2 L nasal cannula oxygen at home continuously, who presents to the emergency room with complaints of passing fecal material in her urine. The patient reports that she initially noticed fecal material 3-4 weeks ago and has since developed gradually worsening dysuria and suprapubic abdominal pain. She reports contacting her PCP was started on Bactrim, which worsened her breathing over the past 2 days, for which she subsequently discontinued the Bactrim. She denied experiencing fevers, nausea, vomiting, cough, or chest pain. Of note, the patient was initially diagnosed with a rectovesicular fistula after she had presented for passing fecal material in her urine in 01/2021. In the emergency room, laboratory evaluation was remarkable for acute kidney injury with BUN 54, creatinine 1.8, and urine grossly abnormal and consistent with UTI. Chest x-ray was unremarkable. Patient was examined at bedside today. It was also evaluated by infectious disease and midline was placed as urine cultures did finalized. Urine cultures for enterococcus faecium VRE. Patient was appropriately started on daptomycin by ID. At this time the patient is a discharge from their perspective. Vital signs are stable, CBC BMP reviewed. O'Fry on repeat is stable about 7 no episodes of bleeding noted. I did verify with RN the prescription was artifacts to 3Nod. Patient Condition at Discharge: Good Plan - Discharge Summary Discharge Rx Participant: No New Discharge Prescriptions: New DAPTOmycin [Cubicin] 300 mg IVPB Q48H each Continue metFORMIN HCL [Glucophage] 1,000 mg PO BID-W/MEALS ARIPiprazole [Abilify] 5 mg PO HS Atorvastatin [Lipitor] 40 mg PO DAILY #30 tab Levothyroxine Sodium [Synthroid] 200 mcg PO DAILY Albuterol Sulfate [Ventolin HFA] 1 - 2 puff INHALATION RT-Q6H PRN PRN Reason: Shortness Of Breath Escitalopram [Lexapro] 20 mg PO DAILY Ipratropium-Albuterol Nebulize [Duoneb 0.5 mg-3 mg/3 ml Soln] 3 ml INHALATION RT-Q2H PRN ml PRN Reason: Shortness Of Breath Or Wheezing HYDROcodone/APAP 7.5-325MG [Jachin 7.5-325] 1 tab PO Q6H PRN #12 tab PRN Reason: Pain traZODone HCL 100 mg PO HS PRN PRN Reason: Sedation Furosemide [Lasix] 20 mg PO DAILY Ferrous Sulfate [Iron (65 MG Elemental)] 325 mg PO Q48H Pantoprazole Sodium [Protonix] 40 mg PO AC-BID Cholecalciferol [Vitamin D3 (25 Mcg = 1000 Iu)] 25 mcg PO DAILY Albuterol Sulfate [Albuterol Sulfate Hfa] 2 puff PO RT-Q6H PRN PRN Reason: Shortness Of Breath Albuterol Nebulized [Ventolin Nebulized] 2.5 mg INHALATION RT-Q6H Magnesium Oxide [Mag-Ox] 400 mg PO DAILY Metoprolol Succinate (ER) [Toprol XL] 50 mg PO DAILY #30 tab Discharge Medication List ARIPiprazole [Abilify] 5 mg PO HS 02/07/18 [History] metFORMIN HCL [Glucophage] 1,000 mg PO BID-W/MEALS 02/07/18 [History] Atorvastatin [Lipitor] 40 mg PO DAILY #30 tab 09/10/18 [Rx] Levothyroxine Sodium [Synthroid] 200 mcg PO DAILY 09/03/19 [History] Albuterol Sulfate [Ventolin HFA] 1 - 2 puff INHALATION RT-Q6H PRN 03/11/20 [History] Escitalopram [Lexapro] 20 mg PO DAILY 03/11/20 [History] HYDROcodone/APAP 7.5-325MG [Jachin 7.5-325] 1 tab PO Q6H PRN #12 tab 03/27/20 [Rx] Ipratropium-Albuterol Nebulize [Duoneb 0.5 mg-3 mg/3 ml Soln] 3 ml INHALATION RT-Q2H PRN ml 03/27/20 [Rx] traZODone HCL 100 mg PO HS PRN 05/15/20 [History] Magnesium Oxide [Mag-Ox] 400 mg PO DAILY 01/21/21 [History] Metoprolol Succinate (ER) [Toprol XL] 50 mg PO DAILY #30 tab 02/23/21 [Rx] Albuterol Nebulized [Ventolin Nebulized] 2.5 mg INHALATION RT-Q6H 10/19/21 [History] Albuterol Sulfate [Albuterol Sulfate Hfa] 2 puff PO RT-Q6H PRN 10/19/21 [History] Cholecalciferol [Vitamin D3 (25 Mcg = 1000 Iu)] 25 mcg PO DAILY 10/19/21 [History] Ferrous Sulfate [Iron (65 MG Elemental)] 325 mg PO Q48H 10/19/21 [History] Furosemide [Lasix] 20 mg PO DAILY 10/19/21 [History] Pantoprazole Sodium [Protonix] 40 mg PO AC-BID 10/19/21 [History] DAPTOmycin [Cubicin] 300 mg IVPB Q48H each 10/24/21 [Rx] Follow up Appointment(s)/Referral(s): Gael Oh MD [STAFF PHYSICIAN] - 2 Weeks Real Weiss [NON-STAFF] - 1 Week Connor Carreon [Primary Care Provider] - 10/26/21 11:00 am Mayco Jaffe MD [STAFF PHYSICIAN] - 1 Week Patient Instructions/Handouts: Urinary Tract Infection in Women (DC), Vancomycin Resistant Enterococcus (DC) Activity/Diet/Wound Care/Special Instructions: keep midline iv clean and dry Discharge/Stand Alone Forms: Who Do I Call?, Community Resources, Help In The Home
== END 2021-10-24 19:59 | disposition home health service (06) | DRG 690 ==
LOC: EC 21:55 → 5NMEDONC 10-19 02:51
PROVIDERS: ADMIT Internal Medicine; ATTEND Internal Medicine
PROC: 30233N1 Transfusion of Nonautologous Red Blood Cells into Peripheral Vein, Percutaneous Approach (ICD-10-PCS; principal; 2021-10-20)
PROC: 05HC33Z Insertion of Infusion Device into Left Basilic Vein, Percutaneous Approach (ICD-10-PCS; 2021-10-24 14:10)
DX: N39.0 Urinary tract infection, site not specified (principal); Z16.22 Resistance to vancomycin related antibiotics; I50.32 Chronic diastolic (congestive) heart failure; J96.11 Chronic respiratory failure with hypoxia; N17.9 Acute kidney failure, unspecified; Z16.24 Resistance to multiple antibiotics; N32.1 Vesicointestinal fistula; K57.32 Diverticulitis of large intestine without perforation or abscess without bleeding; I31.3 Pericardial effusion (noninflammatory); B95.2 Enterococcus as the cause of diseases classified elsewhere; D64.9 Anemia, unspecified; E03.9 Hypothyroidism, unspecified; E11.9 Type 2 diabetes mellitus without complications; E78.5 Hyperlipidemia, unspecified; F32.A Depression, unspecified; F41.9 Anxiety disorder, unspecified; I08.0 Rheumatic disorders of both mitral and aortic valves; I11.0 Hypertensive heart disease with heart failure; I27.20 Pulmonary hypertension, unspecified; J44.9 Chronic obstructive pulmonary disease, unspecified; Z99.81 Dependence on supplemental oxygen; Z79.84 Long term (current) use of oral hypoglycemic drugs; Z79.890 Hormone replacement therapy; Z79.899 Other long term (current) drug therapy; Z80.8 Family history of malignant neoplasm of other organs or systems; Z82.49 Family history of ischemic heart disease and other diseases of the circulatory system; Z82.5 Family history of asthma and other chronic lower respiratory diseases; Z85.828 Personal history of other malignant neoplasm of skin; Z87.440 Personal history of urinary (tract) infections; Z87.442 Personal history of urinary calculi; Z87.891 Personal history of nicotine dependence; Z91.81 History of falling; Z93.3 Colostomy status; G89.29 Other chronic pain; H40.9 Unspecified glaucoma; M51.36 Other intervertebral disc degeneration, lumbar region; Z90.49 Acquired absence of other specified parts of digestive tract; Z98.51 Tubal ligation status; Z98.890 Other specified postprocedural states; Z80.6 Family history of leukemia; Z80.9 Family history of malignant neoplasm, unspecified; Z88.5 Allergy status to narcotic agent; Z88.0 Allergy status to penicillin; Z88.2 Allergy status to sulfonamides; Z88.1 Allergy status to other antibiotic agents; Z91.040 Latex allergy status; I08.3 Combined rheumatic disorders of mitral, aortic and tricuspid valves
CPT/HCPCS: 36410; 36415; 71046; 76937; 80048; 80053; 81001; 83036; 83735; 83880; 84100; 84484; 85025; 85027; 85610; 85730; 86850; 86900; 86901; 86920; 87040; 87077; 87086; 87186; 93005; 93306; 94640; 94760; 96365; 99285

== ENCOUNTER 2021-11-02 15:05 | Emergency (ER) | payer MEDICARE, OTHER ==
[2021-11-02 15:10] VITALS: RESP 16
[2021-11-02] MEDS ORDERED: ALTEPLASE 2 MG VIAL (CATHFLO) IV STA (16:01)
--- NOTE | 2021-11-02 19:42 | ED ---
General Adult HPI - General Chief complaint: Recheck/Abnormal Lab/Rx Stated complaint: lab recheck Time Seen by Provider: 11/02/21 15:38 Source: patient Mode of arrival: wheelchair Limitations: no limitations - History of Present Illness Initial comments: Patient is a 71-year-old female presenting with chief complaint of occluded left arm midline. Patient had midline placed approximately one week ago for daptomycin 300mg IVPB every 48 hours for treatment of UTI. The home nurse today was unable to flush the midline and advised her to present to the ER. Her last dose of antibiotics this on Sunday. Patient denies any pain, swelling, fever, chills, chest pain, shortness of breath, abdominal pain, headache, vision or hearing changes, abdominal pain, diarrhea, nausea, vomiting, weakness. - Related Data Home Medications Medication Instructions Recorded Confirmed ARIPiprazole [Abilify] 5 mg PO HS 02/07/18 11/02/21 metFORMIN HCL [Glucophage] 1,000 mg PO BID-W/MEALS 02/07/18 11/02/21 Levothyroxine Sodium [Synthroid] 200 mcg PO DAILY 09/03/19 11/02/21 Escitalopram [Lexapro] 20 mg PO DAILY 03/11/20 11/02/21 traZODone HCL 100 mg PO HS PRN 05/15/20 11/02/21 Magnesium Oxide [Mag-Ox] 400 mg PO DAILY 01/21/21 11/02/21 Albuterol Nebulized [Ventolin 2.5 mg INHALATION RT-Q6H 10/19/21 11/02/21 Nebulized] Albuterol Sulfate [Albuterol 2 puff PO RT-Q6H PRN 10/19/21 11/02/21 Sulfate Hfa] Cholecalciferol [Vitamin D3 (25 25 mcg PO DAILY 10/19/21 11/02/21 Mcg = 1000 Iu)] Ferrous Sulfate [Iron (65 MG 325 mg PO Q48H 10/19/21 11/02/21 Elemental)] Furosemide [Lasix] 20 mg PO DAILY 10/19/21 11/02/21 Pantoprazole Sodium [Protonix] 40 mg PO AC-BID 10/19/21 11/02/21 Metoprolol Succinate [Toprol XL] 25 mg PO DAILY 11/02/21 11/02/21 Nystatin 100,000Unit/gm Cream 1 applic TOPICAL BID PRN 11/02/21 11/02/21 [Mycostatin Cream] Previous Rx's Medication Instructions Recorded Atorvastatin [Lipitor] 40 mg PO DAILY #30 tab 09/10/18 HYDROcodone/APAP 7.5-325MG [Destrehan 1 tab PO Q6H PRN #12 tab 03/27/20 7.5-325] Ipratropium-Albuterol Nebulize 3 ml INHALATION RT-Q2H PRN ml 03/27/20 [Duoneb 0.5 mg-3 mg/3 ml Soln] DAPTOmycin [Cubicin] 300 mg IVPB Q48H each 10/24/21 Allergies Allergy/AdvReac Type Severity Reaction Status Date / Time adhesive Allergy Rash/Hives Verified 11/02/21 17:03 ciprofloxacin [From Cipro] Allergy Rash/Hives Verified 11/02/21 17:03 ciprofloxacin HCl Allergy Rash/Hives Verified 11/02/21 17:03 [From Cipro] latex Allergy Rash/Hives Verified 11/02/21 17:03 levofloxacin [From Levaquin] Allergy Rash/Hives Verified 11/02/21 17:03 nitrofurantoin Allergy Rash/Hives Verified 11/02/21 17:03 [From Macrobid] nitrofurantoin Allergy Rash/Hives Verified 11/02/21 17:03 macrocrystalline [From Macrobid] Penicillins Allergy Rash/Hives Verified 11/02/21 17:03 propoxyphene HCl Allergy Rash/Hives Verified 11/02/21 17:03 [From Darvon] propoxyphene napsylate Allergy Unknown Verified 11/02/21 17:03 [From Darvocet-N] sulfamethoxazole Allergy PIPPA Verified 11/02/21 17:03 [From Bactrim] trimethoprim [From Bactrim] Allergy PIPPA Verified 11/02/21 17:03 Review of Systems ROS Statement: Those systems with pertinent positive or pertinent negative responses have been documented in the HPI. ROS Other: All systems not noted in ROS Statement are negative. 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 glaucoma, chronic back pain and degenerative disk disease in the lumbar spine , nephrolithiasis, history of cellulitis in the legs and history of falls. The patient is also a recently quit smoker. History of Any Multi-Drug Resistant Organisms: VRE Date of last positivie culture/infection: 10/21/21 MDRO Source:: urine Past Surgical History: Appendectomy, Bowel Resection, Section, Cholecystectomy, Orthopedic Surgery, Tubal Ligation Additional Past Surgical History / Comment(s): LASER SX JETHRO EYES FOR GLAUCOMA. RT KNEE ARTHROSCOPY. UNDERWENT PERCUTANEOUS NEPHROSTOLITHOTOMY, colostomy Past Anesthesia/Blood Transfusion Reactions: No Reported Reaction Past Psychological History: Anxiety, Depression Smoking Status: Former smoker Past Alcohol Use History: None Reported Past Drug Use History: None Reported - Past Family History Mother Family Medical History: COPD Additional Family Medical History / Comment(s): emphysema, heart valve problems, in her sleep. Brother(s) Family Medical History: Cancer Additional Family Medical History / Comment(s): from oral cancer Father Brother(s) Family Medical History: Cancer Additional Family Medical History / Comment(s): heart disease General Exam Limitations: no limitations General appearance: alert, in no apparent distress Head exam: Present: atraumatic, normocephalic, normal inspection Eye exam: Present: normal appearance, PERRL, EOMI. Absent: scleral icterus, conjunctival injection, periorbital swelling Neck exam: Present: normal inspection Respiratory exam: Present: normal lung sounds bilaterally. Absent: respiratory distress, wheezes, rales, rhonchi, stridor Cardiovascular Exam: Present: regular rate, normal rhythm, normal heart sounds. Absent: systolic murmur, diastolic murmur, rubs, gallop, clicks Extremities exam: Present: normal inspection, full ROM, normal capillary refill. Absent: tenderness Neurological exam: Present: alert, oriented X3, CN II-XII intact Psychiatric exam: Present: normal affect, normal mood Skin exam: Present: warm, dry, intact, normal color. Absent: rash Course Vital Signs 11/02/21 11/02/21 15:07 20:10 Temperature 97.7 F 98.0 F Pulse Rate 88 86 Respiratory 16 16 Rate Blood Pressure 131/44 126/60 O2 Sat by Pulse 92 L 92 L Oximetry Medical Decision Making - Medical Decision Making Patient is a 71-year-old female presenting with chief complaint of occluded left arm midline. Midline was placed approximately one week ago for administration of daptomycin for UTI treatment. Today the home nurse was unable to flush the midline. Patient has not complaining of any pain or discomfort at this time. Attempted to clear midline with alteplase cathflo, this was unsuccessful. Nurse Mark was able to evaluate the midline and slightly extract it and reposition. He was able to get return in the midline was flushed. I spoke with the patient's son who states that the home nurse taught him how to administer her antibiotics and he would be able to administer her next dose at home without any delay. Report back to ER with worsening symptoms or new onset alarming symptoms. Follow up with PCP within the week. Answered all questions. Patient conveyed verbal understanding and agreed to the plan. My attending is Dr. Mcclure. Disposition Clinical Impression: Encounter for wound re-check Disposition: HOME SELF-CARE Condition: Good Instructions (If sedation given, give patient instructions): How to Care for Your Midline Catheter (ED), Midline Catheter (DC), How to Flush Your Midline Catheter (ED) Additional Instructions: Report back to ER with worsening or new onset alarming symptoms. Follow-up with PCP in one to 2 days. Is patient prescribed a controlled substance at d/c from ED?: No Referrals: Connor Carreon [Primary Care Provider] - 1-2 days Time of Disposition: 19:53
[2021-11-02 20:12] VITALS: BP 126/60; PULSE 86; TEMP 98
== END 2021-11-02 20:10 | disposition home or self-care (01) ==
LOC: EC 15:05
DX: Z48.00 Encounter for change or removal of nonsurgical wound dressing (principal); E11.9 Type 2 diabetes mellitus without complications; I10 Essential (primary) hypertension; E78.5 Hyperlipidemia, unspecified; J44.9 Chronic obstructive pulmonary disease, unspecified; F32.A Depression, unspecified; F41.9 Anxiety disorder, unspecified; M19.90 Unspecified osteoarthritis, unspecified site; Z87.891 Personal history of nicotine dependence; Z79.84 Long term (current) use of oral hypoglycemic drugs; Z79.890 Hormone replacement therapy; Z79.51 Long term (current) use of inhaled steroids; Z79.899 Other long term (current) drug therapy
CPT/HCPCS: 96374; 99282; J2997

== ENCOUNTER → 2021-11-08 | Outpatient (CLI) | payer MEDICARE, OTHER ==
--- NOTE | 2021-11-08 16:58 | US ---
EXAMINATION TYPE: US venous doppler duplex LE LT DATE OF EXAM: 11/08/2021 4:31 PM COMPARISON: NONE CLINICAL HISTORY: R06.9 EDEMA, UNSPECIFIED. Left lower leg swelling and skin redness with appearance of cellulitis x 1.5 weeks SIDE PERFORMED: Left TECHNIQUE: The lower extremity deep venous system is examined utilizing real time linear array sonog chacorta with graded compression, doppler sonography and color-flow sonography. VESSELS IMAGED: Common Femoral Vein Deep Femoral Vein Greater Saphenous Vein * Femoral Vein Popliteal Vein Small Saphenous Vein * Proximal Calf Veins (* superficial vessels) US is technically limited by patient's inability to semi recline due to severe PIPPA, even with oxygen. Patient was unable to tolerate venous compression due to severe leg pain Left Leg: Negative for DVT. Ankle edema channels are seen. IMPRESSION: No evidence of deep vein thrombosis of the left lower extremity. Left lower extremity edema.
== END | disposition home or self-care (01) ==
LOC: RADUSWWP 15:24
PROVIDERS: ATTEND Internal Medicine Infectious Disease
DX: R60.0 Localized edema (principal)

== ENCOUNTER 2022-01-24 00:54 | Emergency (ER) | payer MEDICARE, OTHER ==
[2022-01-24 02:14] LABS: Appearance,Urine Turbid (Clear); Bacteria,Urine Moderate /hpf; Bilirubin,Urine 1+ (Negative); Blood,Urine Large (Negative); Color,Urine Dark Brown; Glucose,Urine (UA) Negative (Negative); Ketones,Urine Negative (Negative); Leukocyte Esterase,Urine Large (Negative); Mucus,Urine Rare /hpf; Nitrite,Urine Positive (Negative); Protein,Urine 2+ (Negative); RBC,Urine 19 /hpf (0-5); Specific Gravity,Urine 1.013 (1.001-1.035); Squamous Epithelial Cell,Urine 4 /hpf (0-4); WBC,Urine >182 /hpf (0-5)
[2022-01-24] MEDS ORDERED: SODIUM CHLORIDE 0.9% 1,000 ML IV STA (02:57)
--- NOTE | 2022-01-24 02:59 | ED ---
Recheck HPI - General Chief Complaint: Nausea/Vomiting/Diarrhea Stated Complaint: vomiting Time Seen by Provider: 01/24/22 02:57 Source: patient, family, RN notes reviewed, old records reviewed Mode of arrival: wheelchair Limitations: no limitations - History of Present Illness Initial Comments: This is a 71-year-old female to the emergency department for evaluation. Patient presents today for evaluation of nausea and vomiting. Patient presents medication reaction just started on medication for urinary tract infection. Patient also complaining of abdominal pain. Occasional fever. No diarrhea no sick contacts no travel history. MD Complaint: abnormal lab, needs IV antibiotics, medication refill request -: hour(s) Returns Today for: persistent/worsening pain related to initial visit Symptoms Since Prior Visit: worsening pain Context: called for abnormal lab result Associated Symptoms: none Treatments Prior to Arrival: other medications - Related Data Home Medications Medication Instructions Recorded Confirmed ARIPiprazole [Abilify] 5 mg PO HS 02/07/18 11/07/21 metFORMIN HCL [Glucophage] 1,000 mg PO BID-W/MEALS 02/07/18 11/07/21 Levothyroxine Sodium [Synthroid] 200 mcg PO DAILY 09/03/19 11/07/21 Escitalopram [Lexapro] 20 mg PO DAILY 03/11/20 11/07/21 traZODone HCL 100 mg PO HS PRN 05/15/20 11/07/21 Magnesium Oxide [Mag-Ox] 400 mg PO DAILY 01/21/21 11/07/21 Albuterol Nebulized [Ventolin 2.5 mg INHALATION RT-Q6H 10/19/21 11/07/21 Nebulized] Albuterol Sulfate [Albuterol 2 puff PO RT-Q6H PRN 10/19/21 11/07/21 Sulfate Hfa] Cholecalciferol [Vitamin D3 (25 25 mcg PO DAILY 10/19/21 11/07/21 Mcg = 1000 Iu)] Ferrous Sulfate [Iron (65 MG 325 mg PO Q48H 10/19/21 11/07/21 Elemental)] Furosemide [Lasix] 20 mg PO DAILY 10/19/21 11/07/21 Pantoprazole Sodium [Protonix] 40 mg PO AC-BID 10/19/21 11/07/21 Metoprolol Succinate [Toprol XL] 25 mg PO DAILY 11/07/21 11/07/21 Previous Rx's Medication Instructions Recorded Atorvastatin [Lipitor] 40 mg PO DAILY #30 tab 09/10/18 HYDROcodone/APAP 7.5-325MG [[place] 1 tab PO Q6H PRN #12 tab 03/27/20 7.5-325] Ipratropium-Albuterol Nebulize 3 ml INHALATION RT-Q2H PRN ml 03/27/20 [Duoneb 0.5 mg-3 mg/3 ml Soln] Sulfamethox-Tmp 800-160Mg [Bactrim 1 tab PO Q12HR #14 tab 01/24/22 DS 800-160 mg] Allergies Allergy/AdvReac Type Severity Reaction Status Date / Time adhesive Allergy Rash/Hives Verified 01/24/22 01:14 ciprofloxacin [From Cipro] Allergy Rash/Hives Verified 01/24/22 01:14 ciprofloxacin HCl Allergy Rash/Hives Verified 01/24/22 01:14 [From Cipro] latex Allergy Rash/Hives Verified 01/24/22 01:14 levofloxacin [From Levaquin] Allergy Rash/Hives Verified 01/24/22 01:14 nitrofurantoin Allergy Rash/Hives Verified 01/24/22 01:14 [From Macrobid] nitrofurantoin Allergy Rash/Hives Verified 01/24/22 01:14 macrocrystalline [From Macrobid] Penicillins Allergy Rash/Hives Verified 01/24/22 01:14 propoxyphene HCl Allergy Rash/Hives Verified 01/24/22 01:14 [From Darvon] propoxyphene napsylate Allergy Unknown Verified 01/24/22 01:14 [From Darvocet-N] sulfamethoxazole Allergy PIPPA Verified 01/24/22 01:14 [From Bactrim] trimethoprim [From Bactrim] Allergy PIPPA Verified 01/24/22 01:14 Review of Systems ROS Statement: Those systems with pertinent positive or pertinent negative responses have been documented in the HPI. ROS Other: All systems not noted in ROS Statement are negative. 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 glaucoma, chronic back pain and degenerative disk disease in the lumbar spine , nephrolithiasis, history of cellulitis in the legs and history of falls. The patient is also a recently quit smoker. History of Any Multi-Drug Resistant Organisms: VRE Date of last positivie culture/infection: 10/21/21 MDRO Source:: urine Past Surgical History: Appendectomy, Bowel Resection, Section, Cholecystectomy, Orthopedic Surgery, Tubal Ligation Additional Past Surgical History / Comment(s): LASER SX JETHRO EYES FOR GLAUCOMA. RT KNEE ARTHROSCOPY. UNDERWENT PERCUTANEOUS NEPHROSTOLITHOTOMY, colostomy Past Anesthesia/Blood Transfusion Reactions: No Reported Reaction Past Psychological History: Anxiety, Depression Smoking Status: Former smoker Past Alcohol Use History: None Reported Past Drug Use History: None Reported - Past Family History Mother Family Medical History: COPD Additional Family Medical History / Comment(s): emphysema, heart valve problems, in her sleep. Brother(s) Family Medical History: Cancer Additional Family Medical History / Comment(s): from oral cancer Father Brother(s) Family Medical History: Cancer Additional Family Medical History / Comment(s): heart disease General Exam Limitations: no limitations General appearance: alert, in no apparent distress Head exam: Present: atraumatic, normocephalic, normal inspection Eye exam: Present: normal appearance, PERRL, EOMI. Absent: scleral icterus, conjunctival injection, periorbital swelling ENT exam: Present: normal exam, mucous membranes moist Neck exam: Present: normal inspection. Absent: tenderness, meningismus, lymphadenopathy Respiratory exam: Present: normal lung sounds bilaterally. Absent: respiratory distress, wheezes, rales, rhonchi, stridor Cardiovascular Exam: Present: regular rate, normal rhythm, normal heart sounds. Absent: systolic murmur, diastolic murmur, rubs, gallop, clicks GI/Abdominal exam: Present: soft, normal bowel sounds. Absent: distended, tenderness, guarding, rebound, rigid Extremities exam: Present: normal inspection, full ROM, normal capillary refill. Absent: tenderness, pedal edema, joint swelling, calf tenderness Back exam: Present: normal inspection Neurological exam: Present: alert, oriented X3, CN II-XII intact Psychiatric exam: Present: normal affect, normal mood Skin exam: Present: warm, dry, intact, normal color. Absent: rash Course Vital Signs 01/24/22 01/24/22 01:09 05:43 Temperature 98.6 F 97.5 F L Pulse Rate 76 75 Respiratory 22 18 Rate Blood Pressure 147/62 116/49 O2 Sat by Pulse 92 L 93 L Oximetry - Reevaluation(s) Reevaluation #1: 01/24/22 03:33 Medical records reviewed Reevaluation #2: 01/24/22 Patient refusing hospital admission despite significant urinary tract infection multiple comorbidities and failure of outpatient treatment Reevaluation #3: 01/24/22 Patient informed of results here in the ER, questions have been answered Medical Decision Making - Medical Decision Making 71 female to the emergency department for evaluation, patient is well-known to our ER, multiple medical comorbidities significant urinary tract infection she does present with UTI today. Patient is found of urinary tract infection here in the emergency department. Computed tomography scan is otherwise negative. She is given IV antibiotics at this time prefers discharged home. - Lab Data Result diagrams: 01/24/22 02:24 01/24/22 02:24 Lab Results 01/24/22 01/24/22 01/24/22 Range/Units 01:17 02:24 02:24 WBC 11.5 H (3.8-10.6) k/uL RBC 3.68 L (3.80-5.40) m/uL Hgb 10.1 L (11.4-16.0) gm/dL Hct 35.7 (34.0-46.0) % MCV 97.2 (80.0-100.0) fL MCH 27.3 (25.0-35.0) pg MCHC 28.1 L (31.0-37.0) g/dL RDW 14.8 (11.5-15.5) % Plt Count 465 H (150-450) k/uL MPV 7.0 Neutrophils % 86 % Lymphocytes % 5 % Monocytes % 4 % Eosinophils % 2 % Basophils % 0 % Neutrophils # 9.9 H (1.3-7.7) k/uL Lymphocytes # 0.6 L (1.0-4.8) k/uL Monocytes # 0.5 (0-1.0) k/uL Eosinophils # 0.2 (0-0.7) k/uL Basophils # 0.0 (0-0.2) k/uL Hypochromasia Marked Sodium 134 L (137-145) mmol/L Potassium 4.4 (3.5-5.1) mmol/L Chloride 100 (98-107) mmol/L Carbon Dioxide 23 (22-30) mmol/L Anion Gap 11 mmol/L BUN 38 H (7-17) mg/dL Creatinine 1.84 H (0.52-1.04) mg/dL Est GFR (CKD-EPI)AfAm 31 (>60 ml/min/1.73 sqM) Est GFR (CKD-EPI)NonAf 27 (>60 ml/min/1.73 sqM) Glucose 131 H (74-99) mg/dL Plasma Lactic Acid Ravi (0.7-2.0) mmol/L Calcium 8.4 (8.4-10.2) mg/dL Phosphorus (2.5-4.5) mg/dL Magnesium (1.6-2.3) mg/dL Total Bilirubin 0.9 (0.2-1.3) mg/dL AST 25 (14-36) U/L ALT 46 H (4-34) U/L Alkaline Phosphatase 258 H (38-126) U/L Total Protein 7.0 (6.3-8.2) g/dL Albumin 3.3 L (3.5-5.0) g/dL Urine Color Dark Brown Urine Appearance Turbid H (Clear) Urine pH 6.0 (5.0-8.0) Ur Specific [place] 1.013 (1.001-1.035) Urine Protein 2+ H (Negative) Urine Glucose (UA) Negative (Negative) Urine Ketones Negative (Negative) Urine Blood Large H (Negative) Urine Nitrite Positive H (Negative) Urine Bilirubin 1+ H (Negative) Urine Urobilinogen 6.0 (<2.0) mg/dL Ur Leukocyte Esterase Large H (Negative) Urine RBC 19 H (0-5) /hpf Urine WBC >182 H (0-5) /hpf Urine WBC Clumps Many H (None) /hpf Ur Squamous Epith Cells 4 (0-4) /hpf Urine Bacteria Moderate H (None) /hpf Urine Mucus Rare H (None) /hpf 01/24/22 01/24/22 Range/Units 02:24 03:13 WBC (3.8-10.6) k/uL RBC (3.80-5.40) m/uL Hgb (11.4-16.0) gm/dL Hct (34.0-46.0) % MCV (80.0-100.0) fL MCH (25.0-35.0) pg MCHC (31.0-37.0) g/dL RDW (11.5-15.5) % Plt Count (150-450) k/uL MPV Neutrophils % % Lymphocytes % % Monocytes % % Eosinophils % % Basophils % % Neutrophils # (1.3-7.7) k/uL Lymphocytes # (1.0-4.8) k/uL Monocytes # (0-1.0) k/uL Eosinophils # (0-0.7) k/uL Basophils # (0-0.2) k/uL Hypochromasia Sodium (137-145) mmol/L Potassium (3.5-5.1) mmol/L Chloride (98-107) mmol/L Carbon Dioxide (22-30) mmol/L Anion Gap mmol/L BUN (7-17) mg/dL Creatinine (0.52-1.04) mg/dL Est GFR (CKD-EPI)AfAm (>60 ml/min/1.73 sqM) Est GFR (CKD-EPI)NonAf (>60 ml/min/1.73 sqM) Glucose (74-99) mg/dL Plasma Lactic Acid Ravi 1.2 (0.7-2.0) mmol/L Calcium (8.4-10.2) mg/dL Phosphorus 3.4 (2.5-4.5) mg/dL Magnesium 1.4 L (1.6-2.3) mg/dL Total Bilirubin (0.2-1.3) mg/dL AST (14-36) U/L ALT (4-34) U/L Alkaline Phosphatase (38-126) U/L Total Protein (6.3-8.2) g/dL Albumin (3.5-5.0) g/dL Urine Color Urine Appearance (Clear) Urine pH (5.0-8.0) Ur Specific [place] (1.001-1.035) Urine Protein (Negative) Urine Glucose (UA) (Negative) Urine Ketones (Negative) Urine Blood (Negative) Urine Nitrite (Negative) Urine Bilirubin (Negative) Urine Urobilinogen (<2.0) mg/dL Ur Leukocyte Esterase (Negative) Urine RBC (0-5) /hpf Urine WBC (0-5) /hpf Urine WBC Clumps (None) /hpf Ur Squamous Epith Cells (0-4) /hpf Urine Bacteria (None) /hpf Urine Mucus (None) /hpf - Radiology Data Radiology results: report reviewed (CT of the abdomen and pelvis is significantly improved from prior), image reviewed Disposition Clinical Impression: Dehydration, Diabetes, UTI (urinary tract infection), Nausea & vomiting Disposition: HOME SELF-CARE Condition: Good Instructions (If sedation given, give patient instructions): Urinary Tract Infection in Women (ED), Acute Nausea and Vomiting (ED) Prescriptions: Sulfamethox-Tmp 800-160Mg [Bactrim DS 800-160 mg] 1 tab PO Q12HR #14 tab Is patient prescribed a controlled substance at d/c from ED?: No Referrals: Connor Carreon [Primary Care Provider] - 1-2 days Time of Disposition: 05:10
[2022-01-24] MEDS ORDERED: SODIUM CHLORIDE 0.9% 1,000 ML IV SCH (03:00)
[2022-01-24 03:17] LABS: Basophils % (A) 0 %; Eosinophils # (A) 0.2 k/uL (0-0.7); Eosinophils % (A) 2 %; HCT 35.7 % (34.0-46.0); HGB 10.1 gm/dL (11.4-16.0); Hypochromasia Marked; Lymphocytes # (A) 0.6 k/uL (1.0-4.8); Lymphocytes % (A) 5 %; MCH 27.3 pg (25.0-35.0); MCHC 28.1 g/dL (31.0-37.0); MCV 97.2 fL (80.0-100.0); Monocytes # (A) 0.5 k/uL (0-1.0); Monocytes % (A) 4 %; Neutrophils # (A) 9.9 k/uL (1.3-7.7); Neutrophils % (A) 86 %; Platelet Count 465 k/uL (150-450); RBC 3.68 m/uL (3.80-5.40); RDW 14.8 % (11.5-15.5); WBC 11.5 k/uL (3.8-10.6)
[2022-01-24 03:27] LABS: Albumin 3.3 g/dL (3.5-5.0); Calcium 8.4 mg/dL (8.4-10.2); Potassium 4.4 mmol/L (3.5-5.1); Total Bilirubin 0.9 mg/dL (0.2-1.3)
[2022-01-24] MEDS ORDERED: ONDANSETRON 4 MG/2 ML VIAL IVP STA (03:59)
[2022-01-24] MEDS ORDERED: KETOROLAC 15 MG/ML 1 ML VIAL IVP STA (03:59)
[2022-01-24 04:18] LABS: Magnesium 1.4 mg/dL (1.6-2.3); Phosphorus 3.4 mg/dL (2.5-4.5)
--- NOTE | 2022-01-24 04:49 | CT ---
EXAMINATION TYPE: CT abdomen pelvis wo con DATE OF EXAM: 01/24/2022 COMPARISON: 05/03/2021 HISTORY: ABD PAIN CT DLP: 1023.6 mGycm Automated exposure control for dose reduction was used. Images obtained from the diaphragm to the floor the pelvis without contrast. The lung bases are clear of consolidation. There is minimal subsegmental atelectasis. Unchanged. Hear t appears enlarged. No pericardial effusion. No pleural effusion. There are clips from cholecystectomy. Liver spleen stomach appear intact. The bile ducts are not dila marty. Pancreas is intact. There are clips from cholecystectomy. There is no adrenal mass. Kidneys of normal size. No hydronephrosis. No retroperitoneal adenopathy. U reters are not dilated. There is some air in the urinary bladder consistent with catheterization. Jeffry dder distends smoothly. No free fluid in the pelvis. No pelvic mass. There is colostomy in the left s severino of the abdomen with parastomal hernia containing fat. No evidence of a bowel obstruction. There a re multiple sigmoid diverticula. There is some complex density along the left iliopsoas muscle. This has air and fluid and consistent with a chronic abscess. Abnormality measures approximately 8 cm in l ength and 2 cm in thickness. This appears smaller than previous exam. There is 1 mm calculus lower pole left kidney. Abdominal aorta is atheromatous. Lumbar vertebra. Tach. There is degenerative disc space narrowing throughout the lumbar spine with sp ur formation. No compression fracture. There is advanced osteoarthritis in the right hip joint. No si gnificant arthritis in the left hip joint. Bony pelvis is intact. 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 There is moderate colonic diverticulosis. There is peristomal hernia containing fat.
[2022-01-24] MEDS ORDERED: SULFAMETH-TMP DS STARTER PACK 2 TAB BTL PO STA (04:58)
[2022-01-24] MEDS ORDERED: SULFAMETHOX-TMP 800-160MG 1 EACH TAB PO STA (04:58)
[2022-01-24 05:45] VITALS: BP 116/49; PULSE 75; RESP 18; TEMP 97.5
== END 2022-01-24 05:43 | disposition home or self-care (01) ==
LOC: EC 00:54
DX: R11.2 Nausea with vomiting, unspecified (principal); N39.0 Urinary tract infection, site not specified; J44.9 Chronic obstructive pulmonary disease, unspecified; E11.9 Type 2 diabetes mellitus without complications; I10 Essential (primary) hypertension; Z87.891 Personal history of nicotine dependence; E78.5 Hyperlipidemia, unspecified; E07.9 Disorder of thyroid, unspecified; Z79.1 Long term (current) use of non-steroidal anti-inflammatories (NSAID); Z91.040 Latex allergy status; Z91.048 Other nonmedicinal substance allergy status; Z88.1 Allergy status to other antibiotic agents; Z88.3 Allergy status to other anti-infective agents; Z88.0 Allergy status to penicillin; Z88.8 Allergy status to other drugs, medicaments and biological substances; Z88.2 Allergy status to sulfonamides; Z88.6 Allergy status to analgesic agent
CPT/HCPCS: 36415; 80053; 83605; 83735; 84100; 85025; 81001; 74176; 99284; 96365; 96361; 96375; J2405; J0696; J1885

== ENCOUNTER 2022-01-30 20:12 | Inpatient (IN) | payer MEDICARE, OTHER ==
[2022-01-30] MEDS ORDERED: ALBUTEROL NEBULIZED 2.5 MG/3 ML INHALATION STA (20:40)
[2022-01-30] MEDS ORDERED: IPRATROPIUM 0.5 MG/2.5 ML NEBU INHALATION STA (20:40)
--- NOTE | 2022-01-30 21:34 | XR ---
EXAMINATION TYPE: XR chest 1V portable DATE OF EXAM: 01/30/2022 8:56 PM COMPARISON: Multiple radiographs, with the most recent on 10/19/2019 TECHNIQUE: XR chest 1V portable Frontal view of the chest. CLINICAL INDICATION:Female, 71 years old with history of juan manuel; FINDINGS: Lungs/Pleura: There is no evidence of pleural effusion, focal consolidation, or pneumothorax. Pulmonary vascularity: Mild pulmonary vascular congestion. Heart/mediastinum: Cardiomediastinal silhouette is enlarged and stable. Musculoskeletal: No acute osseous pathology. IMPRESSION: Cardiomegaly and mild pulmonary vascular congestion. Correlate with BNP for congestive heart failure.
--- NOTE | 2022-01-30 21:49 | ED ---
General Adult HPI - General Chief complaint: Shortness of Breath Stated complaint: PIPPA/Low hemoglobin Time Seen by Provider: 01/30/22 20:33 Source: patient, RN notes reviewed, old records reviewed Mode of arrival: ambulatory Limitations: no limitations - History of Present Illness Initial comments: 71-year-old female presenting with increased dyspnea, cough, and anemia. Patient states she had outpatient labs indicating that she had a hemoglobin of 7. She does report chronic cough and dyspnea which she states is slightly worse than normal. She denies chest pain or abdominal pain. Denies fever. She is on 4 L of oxygen normally. - Related Data Home Medications Medication Instructions Recorded Confirmed ARIPiprazole [Abilify] 5 mg PO HS 02/07/18 01/30/22 metFORMIN HCL [Glucophage] 1,000 mg PO BID-W/MEALS 02/07/18 01/30/22 Levothyroxine Sodium [Synthroid] 200 mcg PO DAILY 09/03/19 01/30/22 traZODone HCL 100 mg PO HS PRN 05/15/20 01/30/22 Magnesium Oxide [Mag-Ox] 400 mg PO DAILY 01/21/21 01/30/22 Albuterol Nebulized [Ventolin 2.5 mg INHALATION RT-Q6H PRN 10/19/21 01/30/22 Nebulized] Albuterol Sulfate [Albuterol 2 puff PO RT-Q6H PRN 10/19/21 01/30/22 Sulfate Hfa] Cholecalciferol [Vitamin D3 (25 25 mcg PO DAILY 10/19/21 01/30/22 Mcg = 1000 Iu)] Ferrous Sulfate [Iron (65 MG 325 mg PO Q48H 10/19/21 01/30/22 Elemental)] Pantoprazole Sodium [Protonix] 40 mg PO AC-BID 10/19/21 01/30/22 Metoprolol Succinate [Toprol XL] 25 mg PO DAILY 11/07/21 01/30/22 Citalopram Hydrobromide [Celexa] 40 mg PO DAILY 01/30/22 01/30/22 Furosemide [Lasix] 40 mg PO DAILY 01/30/22 01/30/22 Previous Rx's Medication Instructions Recorded Atorvastatin [Lipitor] 40 mg PO DAILY #30 tab 09/10/18 HYDROcodone/APAP 7.5-325MG [[place] 1 tab PO Q6H PRN #12 tab 03/27/20 7.5-325] Ipratropium-Albuterol Nebulize 3 ml INHALATION RT-Q2H PRN ml 03/27/20 [Duoneb 0.5 mg-3 mg/3 ml Soln] Sulfamethox-Tmp 800-160Mg [Bactrim 1 tab PO Q12HR #14 tab 01/24/22 DS 800-160 mg] Allergies Allergy/AdvReac Type Severity Reaction Status Date / Time adhesive Allergy Rash/Hives Verified 01/30/22 22:00 ciprofloxacin [From Cipro] Allergy Rash/Hives Verified 01/30/22 22:00 ciprofloxacin HCl Allergy Rash/Hives Verified 01/30/22 22:00 [From Cipro] latex Allergy Rash/Hives Verified 01/30/22 22:00 levofloxacin [From Levaquin] Allergy Rash/Hives Verified 01/30/22 22:00 nitrofurantoin Allergy Rash/Hives Verified 01/30/22 22:00 [From Macrobid] nitrofurantoin Allergy Rash/Hives Verified 01/30/22 22:00 macrocrystalline [From Macrobid] Penicillins Allergy Rash/Hives Verified 01/30/22 22:00 propoxyphene HCl Allergy Rash/Hives Verified 01/30/22 22:00 [From Darvon] propoxyphene napsylate Allergy Unknown Verified 01/30/22 22:00 [From Darvocet-N] sulfamethoxazole Allergy PIPPA Verified 01/30/22 22:00 [From Bactrim] trimethoprim [From Bactrim] Allergy PIPPA Verified 01/30/22 22:00 Review of Systems ROS Statement: Those systems with pertinent positive or pertinent negative responses have been documented in the HPI. ROS Other: All systems not noted in ROS Statement are negative. 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 glaucoma, chronic back pain and degenerative disk disease in the lumbar spine , nephrolithiasis, history of cellulitis in the legs and history of falls. The patient is also a recently quit smoker. History of Any Multi-Drug Resistant Organisms: VRE Date of last positivie culture/infection: 10/21/21 MDRO Source:: urine Past Surgical History: Appendectomy, Bowel Resection, Section, Cholecystectomy, Orthopedic Surgery, Tubal Ligation Additional Past Surgical History / Comment(s): LASER SX JETHRO EYES FOR GLAUCOMA. RT KNEE ARTHROSCOPY. UNDERWENT PERCUTANEOUS NEPHROSTOLITHOTOMY, colostomy Past Anesthesia/Blood Transfusion Reactions: No Reported Reaction Past Psychological History: Anxiety, Depression Smoking Status: Former smoker Past Alcohol Use History: None Reported Past Drug Use History: None Reported - Past Family History Mother Family Medical History: COPD Additional Family Medical History / Comment(s): emphysema, heart valve problems, in her sleep. Brother(s) Family Medical History: Cancer Additional Family Medical History / Comment(s): from oral cancer Father Brother(s) Family Medical History: Cancer Additional Family Medical History / Comment(s): heart disease General Exam Limitations: no limitations General appearance: alert, in no apparent distress Head exam: Present: atraumatic, normocephalic Eye exam: Present: normal appearance, PERRL ENT exam: Present: normal exam Neck exam: Present: normal inspection. Absent: tenderness, meningismus Respiratory exam: Present: wheezes, accessory muscle use, decreased breath sounds. Absent: respiratory distress Cardiovascular Exam: Present: regular rate, normal rhythm GI/Abdominal exam: Present: soft. Absent: distended, tenderness, guarding Extremities exam: Present: normal capillary refill, pedal edema Back exam: Present: normal inspection Neurological exam: Present: alert, oriented X3, CN II-XII intact. Absent: motor sensory deficit Psychiatric exam: Present: normal affect, normal mood Skin exam: Present: warm, dry, intact. Absent: cyanosis, diaphoretic Course Vital Signs 01/30/22 01/30/22 01/30/22 20:25 20:35 20:40 Temperature 98.5 F Pulse Rate 84 98 92 Respiratory 20 24 26 H Rate Blood Pressure 154/67 179/73 O2 Sat by Pulse 85 L 80 L 89 L Oximetry 01/30/22 01/30/22 01/30/22 20:46 20:58 21:35 Temperature Pulse Rate 97 98 88 Respiratory 20 Rate Blood Pressure 179/93 O2 Sat by Pulse 86 L Oximetry 01/30/22 23:00 Temperature Pulse Rate 86 Respiratory 18 Rate Blood Pressure 179/73 O2 Sat by Pulse 93 L Oximetry EKG Findings - EKG Comments: EKG Findings:: EKG: Sinus rhythm rate of 89, MS interval 166, QRS duration 89, QTC [address] segment elevation. Medical Decision Making - Medical Decision Making 71-year-old female presenting with increased dyspnea, and anemia. Patient does have chronic anemia. Hemoglobin is repeated and is 7.8 which is baseline for this patient. She's had no active bleeding. She does have moderate respiratory distress and hypoxia. She has wheezing bilaterally and appears fluid overloaded. She has chronic kidney disease which is at baseline. Chest x-ray shows pulmonary edema. She has an elevated BMP. She will be admitted for IV diuresis as well as treatment of COPD exacerbation. Case discussed with Dr. Cullen who will admit. - Lab Data Result diagrams: 01/30/22 21:40 01/30/22 21:40 Lab Results 01/30/22 01/30/22 01/30/22 Range/Units 21:40 21:40 21:40 WBC 10.6 (3.8-10.6) k/uL RBC 2.97 L (3.80-5.40) m/uL Hgb 7.8 L D (11.4-16.0) gm/dL Hct 28.4 L (34.0-46.0) % MCV 95.6 (80.0-100.0) fL MCH 26.2 (25.0-35.0) pg MCHC 27.4 L (31.0-37.0) g/dL RDW 17.0 H (11.5-15.5) % Plt Count 413 (150-450) k/uL MPV 7.3 Neutrophils % (Manual) 73 % Band Neuts % (Manual) 9 % Lymphocytes % (Manual) 11 % Monocytes % (Manual) 6 % Eosinophils % (Manual) 1 % Metamyelocytes % 2 % Neutrophils # (Manual) 8.60 H (1.3-7.7) k/uL Lymphocytes # (Manual) 1.17 (1.0-4.8) k/uL Monocytes # (Manual) 0.64 (0-1.0) k/uL Eosinophils # (Manual) 0.11 (0-0.7) k/uL Metamyelocytes # (Man) 0.21 H (0) k/uL Nucleated RBCs 0 (0-0) /100 WBC Manual Slide Review Performed Polychromasia Present Hypochromasia Marked Poikilocytosis Moderate Anisocytosis Slight PT 11.2 (9.0-12.0) sec INR 1.0 (<1.2) APTT 25.5 (22.0-30.0) sec Sodium 132 L (137-145) mmol/L Potassium 4.7 (3.5-5.1) mmol/L Chloride 98 (98-107) mmol/L Carbon Dioxide 28 (22-30) mmol/L Anion Gap 6 mmol/L BUN 38 H (7-17) mg/dL Creatinine 1.79 H (0.52-1.04) mg/dL Est GFR (CKD-EPI)AfAm 32 (>60 ml/min/1.73 sqM) Est GFR (CKD-EPI)NonAf 28 (>60 ml/min/1.73 sqM) Glucose 156 H (74-99) mg/dL Plasma Lactic Acid Ravi (0.7-2.0) mmol/L Calcium 8.5 (8.4-10.2) mg/dL Magnesium 1.2 L (1.6-2.3) mg/dL Total Bilirubin 0.5 (0.2-1.3) mg/dL AST 33 (14-36) U/L ALT 49 H (4-34) U/L Alkaline Phosphatase 154 H (38-126) U/L NT-Pro-B Natriuret Pep pg/mL Total Protein 6.4 (6.3-8.2) g/dL Albumin 3.0 L (3.5-5.0) g/dL 01/30/22 01/30/22 Range/Units 21:40 21:40 WBC (3.8-10.6) k/uL RBC (3.80-5.40) m/uL Hgb (11.4-16.0) gm/dL Hct (34.0-46.0) % MCV (80.0-100.0) fL MCH (25.0-35.0) pg MCHC (31.0-37.0) g/dL RDW (11.5-15.5) % Plt Count (150-450) k/uL MPV Neutrophils % (Manual) % Band Neuts % (Manual) % Lymphocytes % (Manual) % Monocytes % (Manual) % Eosinophils % (Manual) % Metamyelocytes % % Neutrophils # (Manual) (1.3-7.7) k/uL Lymphocytes # (Manual) (1.0-4.8) k/uL Monocytes # (Manual) (0-1.0) k/uL Eosinophils # (Manual) (0-0.7) k/uL Metamyelocytes # (Man) (0) k/uL Nucleated RBCs (0-0) /100 WBC Manual Slide Review Polychromasia Hypochromasia Poikilocytosis Anisocytosis PT (9.0-12.0) sec INR (<1.2) APTT (22.0-30.0) sec Sodium (137-145) mmol/L Potassium (3.5-5.1) mmol/L Chloride (98-107) mmol/L Carbon Dioxide (22-30) mmol/L Anion Gap mmol/L BUN (7-17) mg/dL Creatinine (0.52-1.04) mg/dL Est GFR (CKD-EPI)AfAm (>60 ml/min/1.73 sqM) Est GFR (CKD-EPI)NonAf (>60 ml/min/1.73 sqM) Glucose (74-99) mg/dL Plasma Lactic Acid Ravi 1.5 (0.7-2.0) mmol/L Calcium (8.4-10.2) mg/dL Magnesium (1.6-2.3) mg/dL Total Bilirubin (0.2-1.3) mg/dL AST (14-36) U/L ALT (4-34) U/L Alkaline Phosphatase (38-126) U/L NT-Pro-B Natriuret Pep 4220 pg/mL Total Protein (6.3-8.2) g/dL Albumin (3.5-5.0) g/dL Disposition Clinical Impression: CHF exacerbation, COPD (chronic obstructive pulmonary disease), Anemia, Acute exacerbation of chronic obstructive pulmonary disease (COPD) Disposition: ADMITTED IP TO THIS HOSP Condition: Stable Is patient prescribed a controlled substance at d/c from ED?: No Referrals: Levi Austin MD [Primary Care Provider] - 1-2 days Time of Disposition: 23:46
[2022-01-30 21:57] LABS: Calcium 8.5 mg/dL (8.4-10.2); Magnesium 1.2 mg/dL (1.6-2.3); Potassium 4.7 mmol/L (3.5-5.1); Total Bilirubin 0.5 mg/dL (0.2-1.3); Total Protein 6.4 g/dL (6.3-8.2)
[2022-01-30 22:23] LABS: Anisocytosis Slight; HCT 28.4 % (34.0-46.0); Hypochromasia Marked; MCH 26.2 pg (25.0-35.0); MCHC 27.4 g/dL (31.0-37.0); MCV 95.6 fL (80.0-100.0); Mean Platelet Volume 7.3; Platelet Count 413 k/uL (150-450); Poikilocytosis Moderate; RBC 2.97 m/uL (3.80-5.40); WBC 10.6 k/uL (3.8-10.6)
[2022-01-30 22:26] LABS: HGB 7.8 gm/dL (11.4-16.0)
[2022-01-30 22:29] LABS: Partial Thromboplastin Time 25.5 sec (22.0-30.0); Prothrombin Time 11.2 sec (9.0-12.0)
[2022-01-30 23:26] LABS: Band Neutrophils % 9 %; Eosinophils # (M) 0.11 k/uL (0-0.7); Lymphocytes # (M) 1.17 k/uL (1.0-4.8); Metamyelocytes # (M) 0.21 k/uL (0); Metamyelocytes % 2 %; Monocytes # (M) 0.64 k/uL (0-1.0); Neutrophils % (M) 73 %; Nucleated Red Blood Cells 0 /100 WBC (0-0); Total Cells Counted 200
[2022-01-30 23:27] LABS: Polychromasia Present
[2022-01-30] MEDS ORDERED: IPRATROPIUM-ALBUTEROL 3 ML NEB INHALATION PRN (23:43)
[2022-01-30] MEDS ORDERED: FUROSEMIDE 10 MG/ML 4 ML VIAL IV STA (23:43)
[2022-01-30] MEDS: MAGNESIUM SULFATE-D5W PMX 1 GM in DEXTROSE/WATER 1 100ML.BAG IVPB SCH (23:54)
[2022-01-30] MEDS ORDERED: traZODone HCL 50 MG TAB PO ONE (23:55)
[2022-01-30] MEDS ORDERED: SULFAMETHOX-TMP 800-160MG 1 EACH TAB PO STA (23:58)
[2022-01-31] MEDS: ARIPiprazole 5 MG TAB PO SCH ×2 (00:30→23:00)
[2022-01-31] MEDS: HYDROcodone/APAP 7.5-325MG 1 EACH TAB PO PRN ×3 (00:30→20:37)
[2022-01-31] MEDS: MAGNESIUM SULFATE-D5W PMX 1 GM in DEXTROSE/WATER 1 100ML.BAG IVPB SCH (01:59)
[2022-01-31] MEDS ORDERED: metFORMIN 500 MG TAB PO SCH (07:30)
[2022-01-31] MEDS ORDERED: IPRATROPIUM-ALBUTEROL 3 ML NEB INHALATION SCH (08:00)
[2022-01-31] MEDS: ATORVASTATIN 40 MG TAB PO SCH (08:38)
[2022-01-31] MEDS: LEVOTHYROXINE 100 MCG TAB PO SCH (08:38)
[2022-01-31] MEDS: METOPROLOL SUCCINATE (ER) 25 MG TAB.ER.24H PO SCH (08:38)
[2022-01-31] MEDS ORDERED: FUROSEMIDE 10 MG/ML 4 ML VIAL IV SCH (09:00)
[2022-01-31] MEDS ORDERED: predniSONE 20 MG TAB PO SCH (09:00)
[2022-01-31] MEDS: INSULIN ASPART (NovoLOG) 100 UNIT/ML VIAL SQ SCH ×6 (09:38→20:37)
--- NOTE | 2022-01-31 10:47 | P.CONS ---
History of Present Illness - Reason for Consult Consult date: 01/31/22 wound care - History of Present Illness This 71-year-old patient known to the wound care center with a nonhealing ulceration to the left lower extremity. Original cause of wound was Not Known. The date acquired was: 11/22/2021. The wound has been in treatment 3 weeks. The wound is currently classified as a Grade 1 wound with etiology of Diabetic Wound/Ulcer of the Lower Extremity and is located on the Left Lower Leg. The w ound measures 1.1cm length x 0.9cm width x 0.1cm depth; 0.778cm^2 area and 0.078cm^3 volume. There is no tunneling or undermining noted. There is a small amount of serosanguineous drainage noted. The wound margin is indistinct and nonvisible. There is large (67-100%) red granulation within the wound bed. There is a small (1-33%) amount of necrotic tissue within the wound bed including Adherent Slough. The periwound skin appearance exhibited: Scarring, Maceration, Erythema. The periwound skin appearance did not exhibit: Callus, Crepitus, Excoriation, Induration, Rash, Dry/Scaly, Atrophie Rosina, Cyanosis, Ecchymosis, Hemosiderin Staining, Mottled, Pallor, Rubor. The surrounding wound skin color is noted with erythema. Periwound temperature was noted as No Abnormality. The periwound has tenderness on palpation. Review Of Systems: Constitutional: No fever, no chills, no night sweats. No weight change. No weakness, fatigue or lethargy. No daytime sleepiness. Integumentary:reports wounds, no lesions. No rash or pruritus. No unusual bruising. No change in hair or nails. Physical exam: General Appearance: Alert, cooperative, no distress, appears stated age. Skin: See HPI all other Skin color, texture, tugor normal, no rashes or lesions. Neurologic: Alert oriented x3 Assessment: 1. Chronic venous hypertension with ulceration and inflammation of left lower extremity 2. Nonpressure chronic ulcer of left calf Limited to skin breakdown 3. Type 2 diabetes with other skin ulcer Plan: 1. Apply absorptive silver, saline moistened gauze, tricuspid and rolled gauze and secure with paper tape. Wrap with Jaxson wrap. Change Sunday. Patient's next wound care appointment will be February 07 at 2:45. Thank you for the consultation any questions to contact the wound care center DNP note has been reviewed and discussed with Dr. Portillo and the impression and plan of care has been directed as dictated. 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 glaucoma, chronic back pain and degenerative disk disease in the lumbar spine , nephrolithiasis, history of cellulitis in the legs and history of falls. The patient is also a recently quit smoker. 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 RT KNEE ARTHROSCOPY. UNDERWENT PERCUTANEOUS NEPHROSTOLITHOTOMY, colostomy Past Anesthesia/Blood Transfusion Reactions: No Reported Reaction Past Psychological History: Anxiety, Depression Additional Psychological History / Comment(s): Pt resides with her spouse. She is mostly in a wheelchair. She has home oxygen, nebulizer and glucometer. and lives with adult son. 2 adult children. 2 dogs and 1 cat in the home, but denied alcohol use or recreational drug use. Does not work outside of the home. No experience. No travel history Smoking Status: Former smoker Past Alcohol Use History: None Reported Additional Past Alcohol Use History / Comment(s): Pt started smoking in 1968 and quit in 2020cats in the home. No service and no travel history. Past Drug Use History: None Reported - Past Family History Mother Family Medical History: COPD Additional Family Medical History / Comment(s): emphysema, heart valve problems, in her sleep. Brother(s) Family Medical History: Cancer Additional Family Medical History / Comment(s): from oral cancer Father Brother(s) Family Medical History: Cancer Additional Family Medical History / Comment(s): heart disease Medications and Allergies Home Medications Medication Instructions Recorded Confirmed Type ARIPiprazole [Abilify] 5 mg PO HS 02/07/18 01/30/22 History metFORMIN HCL [Glucophage] 1,000 mg PO BID-W/MEALS 02/07/18 01/30/22 History Atorvastatin [Lipitor] 40 mg PO DAILY #30 tab 09/10/18 01/30/22 Rx Levothyroxine Sodium [Synthroid] 200 mcg PO DAILY 09/03/19 01/30/22 History HYDROcodone/APAP 7.5-325MG [[place] 1 tab PO Q6H PRN #12 tab 03/27/20 01/30/22 Rx 7.5-325] Ipratropium-Albuterol Nebulize 3 ml INHALATION RT-Q2H PRN ml 03/27/20 01/30/22 Rx [Duoneb 0.5 mg-3 mg/3 ml Soln] traZODone HCL 100 mg PO HS PRN 05/15/20 01/30/22 History Magnesium Oxide [Mag-Ox] 400 mg PO DAILY 01/21/21 01/30/22 History Albuterol Nebulized [Ventolin 2.5 mg INHALATION RT-Q6H PRN 10/19/21 01/30/22 History Nebulized] Albuterol Sulfate [Albuterol 2 puff PO RT-Q6H PRN 10/19/21 01/30/22 History Sulfate Hfa] Cholecalciferol [Vitamin D3 (25 25 mcg PO DAILY 10/19/21 01/30/22 History Mcg = 1000 Iu)] Ferrous Sulfate [Iron (65 MG 325 mg PO Q48H 10/19/21 01/30/22 History Elemental)] Pantoprazole Sodium [Protonix] 40 mg PO AC-BID 10/19/21 01/30/22 History Metoprolol Succinate [Toprol XL] 25 mg PO DAILY 11/07/21 01/30/22 History Sulfamethox-Tmp 800-160Mg [Bactrim 1 tab PO Q12HR #14 tab 01/24/22 01/30/22 Rx DS 800-160 mg] Citalopram Hydrobromide [Celexa] 40 mg PO DAILY 01/30/22 01/30/22 History Furosemide [Lasix] 40 mg PO DAILY 01/30/22 01/30/22 History Allergies Allergy/AdvReac Type Severity Reaction Status Date / Time adhesive Allergy Rash/Hives Verified 01/30/22 22:00 ciprofloxacin [From Cipro] Allergy Rash/Hives Verified 01/30/22 22:00 ciprofloxacin HCl Allergy Rash/Hives Verified 01/30/22 22:00 [From Cipro] latex Allergy Rash/Hives Verified 01/30/22 22:00 levofloxacin [From Levaquin] Allergy Rash/Hives Verified 01/30/22 22:00 nitrofurantoin Allergy Rash/Hives Verified 01/30/22 22:00 [From Macrobid] nitrofurantoin Allergy Rash/Hives Verified 01/30/22 22:00 macrocrystalline [From Macrobid] Penicillins Allergy Rash/Hives Verified 01/30/22 22:00 propoxyphene HCl Allergy Rash/Hives Verified 01/30/22 22:00 [From Darvon] propoxyphene napsylate Allergy Unknown Verified 01/30/22 22:00 [From Darvocet-N] sulfamethoxazole Allergy PIPPA Verified 01/30/22 22:00 [From Bactrim] trimethoprim [From Bactrim] Allergy PIPPA Verified 01/30/22 22:00 Physical Exam Vitals: Vital Signs Temp Pulse Pulse Resp BP BP Pulse Ox 01/31/22 08:00 98.7 F 80 18 124/67 90 L 01/31/22 04:00 98.5 F 78 22 97/53 88 L 01/31/22 03:26 88 20 01/31/22 00:27 89 20 131/59 89 L 01/30/22 23:00 86 18 179/73 93 L 01/30/22 21:35 88 20 179/93 86 L 01/30/22 20:58 98 01/30/22 20:46 97 01/30/22 20:40 92 26 H 179/73 89 L 01/30/22 20:35 98 24 80 L 01/30/22 20:25 98.5 F 84 20 154/67 85 L Intake and Output 01/30/22 01/31/22 01/31/22 22:59 06:59 14:59 Other: Voiding Method External Catheter External Catheter Weight 81.647 kg 83.5 kg Results CBC & Chem 7: 01/30/22 21:40 01/30/22 21:40 Labs: Abnormal Lab Results - Last 24 Hours (Table) 01/30/22 01/30/22 Range/Units 21:40 21:40 RBC 2.97 L (3.80-5.40) m/uL Hgb 7.8 L D (11.4-16.0) gm/dL Hct 28.4 L (34.0-46.0) % MCHC 27.4 L (31.0-37.0) g/dL RDW 17.0 H (11.5-15.5) % Neutrophils # (Manual) 8.60 H (1.3-7.7) k/uL Metamyelocytes # (Man) 0.21 H (0) k/uL Sodium 132 L (137-145) mmol/L BUN 38 H (7-17) mg/dL Creatinine 1.79 H (0.52-1.04) mg/dL Glucose 156 H (74-99) mg/dL Magnesium 1.2 L (1.6-2.3) mg/dL ALT 49 H (4-34) U/L Alkaline Phosphatase 154 H (38-126) U/L Albumin 3.0 L (3.5-5.0) g/dL Assessment and Plan (1) Chronic venous hypertension (idiopathic) with ulcer of left lower extremity Current Visit: Yes Status: Acute Code(s): I87.312 - CHRONIC VENOUS HYPERTENSION W ULCER OF L LOW EXTREM; L97.929 - NON-PRS CHRONIC ULC UNSP PRT OF L LOW LEG W UNSP SEVERITY SNOMED Code(s): 273135363871534 (2) Non-pressure chronic ulcer of left calf limited to breakdown of skin Current Visit: Yes Status: Acute Code(s): L97.221 - NON-PRS CHRONIC ULCER OF LEFT CALF LIMITED TO BRKDWN SKIN SNOMED Code(s): 04969414971754181 (3) Type 2 diabetes mellitus with other skin ulcer Current Visit: Yes Status: Acute Code(s): E11.622 - TYPE 2 DIABETES MELLITUS WITH OTHER SKIN ULCER; L98.499 - NON-PRESSURE CHRONIC ULCER OF SKIN OF SITES W UNSP SEVERITY SNOMED Code(s): 035656403
[2022-01-31] MEDS: IPRATROPIUM-ALBUTEROL 3 ML NEB INHALATION SCH ×3 (11:42→19:47)
[2022-01-31] MEDS: BUDESONIDE 1 MG/2 ML NEBU INHALATION SCH ×2 (11:42→19:47)
[2022-01-31] MEDS: CITALOPRAM HYDROBROMIDE 20 MG TAB PO SCH (12:01)
[2022-01-31] MEDS: ENOXAPARIN 30 MG/0.3 ML SYRINGE SQ SCH (12:01)
[2022-01-31] MEDS: SULFAMETHOX-TMP 800-160MG 1 EACH TAB PO SCH ×2 (12:01→20:36)
[2022-01-31 12:39] LABS: Glucose,Whole Blood 215 mg/dL (75-99)
[2022-01-31] MEDS ORDERED: CALCIUM CARBONATE 500 MG CHEWABLE PO PRN (15:42)
[2022-01-31] MEDS ORDERED: ACETAMINOPHEN TAB 325 MG TAB PO PRN (15:42)
[2022-01-31] MEDS ORDERED: LACTULOSE 20 GM/30 ML CUP PO PRN (15:42)
[2022-01-31] MEDS ORDERED: MELATONIN 3 MG TABLET PO PRN (15:42)
[2022-01-31] MEDS ORDERED: ONDANSETRON 4 MG/2 ML VIAL IVP PRN (15:42)
[2022-01-31] MEDS ORDERED: LORazepam 0.5 MG TAB PO PRN (15:42)
[2022-01-31] MEDS ORDERED: NALOXONE 0.4 MG/ML 1 ML VIAL IV PRN (15:42)
--- NOTE | 2022-01-31 15:44 | P.HPIM ---
History of Present Illness H&P Date: 01/31/22 Chief Complaint: Short of breath This is a pleasant 71-year-old patient follows with visiting physicians. T[employer] Man Dr. Kendra Merida. Chronic stable medical conditions include diabetes, hypertension, hyperlipidemia, osteoarthritis, chronic back pain with DJD, kidney stones, patient has 4 L of oxygen at home. Normally uses a walker or wheelchair. Lives with her son. Patient is chronically short of breath. Now presented 1 days of increasing shortness of breath. Cough is a little sputum. Increased wheezing. No fever no chills. Appetite is fair. Bowel movements are variable. Has a colostomy empties it to 3 times a day. Patient has chronic left lower extremity wound. [place] to be chronic venous ulcers in a diabetic. Review of systems: GEN.: Tired EYES: None HEENT: None NECK: None RESPIRATORY: As above CARDIOVASCULAR: None GASTROINTESTINAL: None GENITOURINARY: Being treated for a UTI MUSCULOSKELETAL: Joint pains especially lower back pain LYMPHATICS: None HEMATOLOGICAL: None PSYCHIATRY: None NEUROLOGICAL: None. Past medical history to include: COPD, diabetes, hypertension, hyperlipidemia, osteoarthritis, chronic respiratory failure. His oxygen at home, hypothyroid, basal cell cancer of the eyelid, glaucoma, nephrolithiasis, anxiety depression Social history: Mostly in the wheelchair. Home oxygen 4 L. This with her adult son and . Smoked for over 50 years anyway from half a pack to one pack day. Stopped years ago. No alcohol. Family history: Cancer, heart disease Physical examination: VITAL SIGNS: 98.5, 84, 20, 1 54 x 67, 95% on 6 L upon presentation GENERAL: BMI 37.2, reclining in bed, awake tired short of breath. EYES: Pupils equal. Conjunctiva normal. HEENT: External appearance of nose and ears normal, oral cavity grossly normal. NECK: Short and thick JVD could not be assessed; masses not palpable. HEART: First and second heart sounds are normal; no edema. LUNGS: Respiratory rate increased; decreased breath sounds, wheezing. ABDOMEN: Soft, nontender, liver spleen not palpable, no masses palpable. PSYCH: Alert and oriented x3; mood and affect normal. MUSCULOSKELETAL:No Clubbing/cyanosis;muscles-grossly intact NEUROLOGICAL: Cranial nerves grossly intact; no facial asymmetry, power and sensation grossly intact. LYMPHATICS: No lymph nodes palpable in the axilla and neck EXTREMITIES: Dressing over the left lower extremity wound. See nursing notes for details INVESTIGATIONS, reviewed in the clinical context: White count 10.6 hemoglobin 7.8 platelets 413 sodium 132 potassium 4.7 BUN 38 creatinine 1.79 proBNP 4220 EKG tracing personally reviewed by me-no sinus rhythm. Heart rate 89 Chest x-ray film personally reviewed by me: Possible venous prominence Previous testin-D echocardiogram [October 2021]: Concentric LVH, EF 55-60%, moderate aortic valve sclerosis, 100 aortic stenosis mild to moderate mitral regurgitation mitral valve stenosis, moderate pulmonary hypertension Assessment and plan: -Acute on chronic congestive heart failure exacerbation from diastolic dysfunction EF 55-60%. IV Lasix 40 mg every 12. Consult cardiology -Acute COPD exacerbation in a ex-smoker DuoNeb every 4. IV Solu-Medrol 40 every 8. Nebulized Pulmicort 1 mg every 12. -Acute hypoxic respiratory failure from a combination of COPD and CHF exacerbation Currently 6 L nasal cannula -Chronic hypoxic is pretty failure from underlying COPD 4 L of oxygen at home -Chronic medical debility Uses a wheelchair/walker at baseline. -Hyperlipidemia Lipitor 40 mg a day -Depression Abilify 5 mg daily at bedtime, Celexa 40 mg a day -Hypothyroid Synthroid 200 g a day -Essential hypertension Toprol-XL 25 mg a day -Chronic left lower extremity venous/diabetic wound. Wound care to continue. -Acute UTI with cystitis. Patient was on antibiotics from home. Continue Bactrim -Diabetes mellitus type 2, chronically on insulin Metformin thousand milligrams by mouth twice a day for Accu-Cheks and sliding scale insulin. IV Lasix. DuoNeb. IV and number last rites. Resume home medications. Follow Accu-Cheks. Incentive spirometry. Consult pulmonary and oncology. Care was discussed with the patient. Questions answered. 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 glaucoma, chronic back pain and degenerative disk disease in the lumbar spine , nephrolithiasis, history of cellulitis in the legs and history of falls. The patient is also a recently quit smoker. History of Any Multi-Drug Resistant Organisms: VRE Date of last positivie culture/infection: 10/21/21 MDRO Source:: urine Past Surgical History: Appendectomy, Bowel Resection, Section, Cholecystectomy, Orthopedic Surgery, Tubal Ligation Additional Past Surgical History / Comment(s): LASER SX JETHRO EYES FOR GLAUCOMA. RT KNEE ARTHROSCOPY. UNDERWENT PERCUTANEOUS NEPHROSTOLITHOTOMY, colostomy Past Anesthesia/Blood Transfusion Reactions: No Reported Reaction Past Psychological History: Anxiety, Depression Additional Psychological History / Comment(s): Pt resides with her spouse. She is mostly in a wheelchair. She has home oxygen, nebulizer and glucometer. and lives with adult son. 2 adult children. 2 dogs and 1 cat in the home, but denied alcohol use or recreational drug use. Does not work outside of the home. No experience. No travel history Smoking Status: Former smoker Past Alcohol Use History: None Reported Additional Past Alcohol Use History / Comment(s): Pt started smoking in 1968 and quit in 2019cats in the home. No service and no travel history. Past Drug Use History: None Reported - Past Family History Mother Family Medical History: COPD Additional Family Medical History / Comment(s): emphysema, heart valve problems, in her sleep. Brother(s) Family Medical History: Cancer Additional Family Medical History / Comment(s): from oral cancer Father Brother(s) Family Medical History: Cancer Additional Family Medical History / Comment(s): heart disease Medications and Allergies Home Medications Medication Instructions Recorded Confirmed Type ARIPiprazole [Abilify] 5 mg PO HS 02/07/18 01/30/22 History metFORMIN HCL [Glucophage] 1,000 mg PO BID-W/MEALS 02/07/18 01/30/22 History Atorvastatin [Lipitor] 40 mg PO DAILY #30 tab 09/10/18 01/30/22 Rx Levothyroxine Sodium [Synthroid] 200 mcg PO DAILY 09/03/19 01/30/22 History HYDROcodone/APAP 7.5-325MG [[place] 1 tab PO Q6H PRN #12 tab 03/27/20 01/30/22 Rx 7.5-325] Ipratropium-Albuterol Nebulize 3 ml INHALATION RT-Q2H PRN ml 03/27/20 01/30/22 Rx [Duoneb 0.5 mg-3 mg/3 ml Soln] traZODone HCL 100 mg PO HS PRN 05/15/20 01/30/22 History Magnesium Oxide [Mag-Ox] 400 mg PO DAILY 01/21/21 01/30/22 History Albuterol Nebulized [Ventolin 2.5 mg INHALATION RT-Q6H PRN 10/19/21 01/30/22 History Nebulized] Albuterol Sulfate [Albuterol 2 puff PO RT-Q6H PRN 10/19/21 01/30/22 History Sulfate Hfa] Cholecalciferol [Vitamin D3 (25 25 mcg PO DAILY 10/19/21 01/30/22 History Mcg = 1000 Iu)] Ferrous Sulfate [Iron (65 MG 325 mg PO Q48H 10/19/21 01/30/22 History Elemental)] Pantoprazole Sodium [Protonix] 40 mg PO AC-BID 10/19/21 01/30/22 History Metoprolol Succinate [Toprol XL] 25 mg PO DAILY 11/07/21 01/30/22 History Sulfamethox-Tmp 800-160Mg [Bactrim 1 tab PO Q12HR #14 tab 01/24/22 01/30/22 Rx DS 800-160 mg] Citalopram Hydrobromide [Celexa] 40 mg PO DAILY 01/30/22 01/30/22 History Furosemide [Lasix] 40 mg PO DAILY 01/30/22 01/30/22 History Allergies Allergy/AdvReac Type Severity Reaction Status Date / Time adhesive Allergy Rash/Hives Verified 01/30/22 22:00 ciprofloxacin [From Cipro] Allergy Rash/Hives Verified 01/30/22 22:00 ciprofloxacin HCl Allergy Rash/Hives Verified 01/30/22 22:00 [From Cipro] latex Allergy Rash/Hives Verified 01/30/22 22:00 levofloxacin [From Levaquin] Allergy Rash/Hives Verified 01/30/22 22:00 nitrofurantoin Allergy Rash/Hives Verified 01/30/22 22:00 [From Macrobid] nitrofurantoin Allergy Rash/Hives Verified 01/30/22 22:00 macrocrystalline [From Macrobid] Penicillins Allergy Rash/Hives Verified 01/30/22 22:00 propoxyphene HCl Allergy Rash/Hives Verified 01/30/22 22:00 [From Darvon] propoxyphene napsylate Allergy Unknown Verified 01/30/22 22:00 [From Darvocet-N] sulfamethoxazole Allergy PIPPA Verified 01/30/22 22:00 [From Bactrim] trimethoprim [From Bactrim] Allergy PIPPA Verified 01/30/22 22:00 Physical Exam Vitals: Vital Signs Temp Pulse Pulse Resp BP BP Pulse Ox 01/31/22 04:00 98.5 F 78 22 97/53 88 L 01/31/22 03:26 88 20 01/31/22 00:27 89 20 131/59 89 L 01/30/22 23:00 86 18 179/73 93 L 01/30/22 21:35 88 20 179/93 86 L 01/30/22 20:58 98 01/30/22 20:46 97 01/30/22 20:40 92 26 H 179/73 89 L 01/30/22 20:35 98 24 80 L 01/30/22 20:25 98.5 F 84 20 154/67 85 L Intake and Output 01/30/22 01/31/22 01/31/22 22:59 06:59 14:59 Other: Voiding Method External Catheter Weight 81.647 kg 83.5 kg Results CBC & Chem 7: 01/30/22 21:40 01/30/22 21:40 Labs: Abnormal Lab Results - Last 24 Hours (Table) 01/30/22 01/30/22 Range/Units 21:40 21:40 RBC 2.97 L (3.80-5.40) m/uL Hgb 7.8 L D (11.4-16.0) gm/dL Hct 28.4 L (34.0-46.0) % MCHC 27.4 L (31.0-37.0) g/dL RDW 17.0 H (11.5-15.5) % Neutrophils # (Manual) 8.60 H (1.3-7.7) k/uL Metamyelocytes # (Man) 0.21 H (0) k/uL Sodium 132 L (137-145) mmol/L BUN 38 H (7-17) mg/dL Creatinine 1.79 H (0.52-1.04) mg/dL Glucose 156 H (74-99) mg/dL Magnesium 1.2 L (1.6-2.3) mg/dL ALT 49 H (4-34) U/L Alkaline Phosphatase 154 H (38-126) U/L Albumin 3.0 L (3.5-5.0) g/dL Thrombosis Risk Factor Assmnt - Choose All That Apply Each Factor Represents 1 point: Abnormal pulmonary function (COPD), Obesity (BMI >25), Serious lung disease incl. pneumonia (< 1month) Other Risk Factors: Yes Each Risk Factor Represents 2 Points: Age 61-74 years, Patient confined to bed Other congenital or acquired thrombophilia - If yes, enter type in comment: No Thrombosis Risk Factor Assessment Total Risk Factor Score: 7 Thrombosis Risk Factor Assessment Level: High Risk
[2022-01-31 16:54] LABS: Glucose,Whole Blood 282 mg/dL (75-99)
[2022-01-31] MEDS: methylPREDNISolone SOD SUCCI 40 MG/ML 1 ML VIAL IV SCH ×2 (17:10→23:00)
[2022-01-31] MEDS: PANTOPRAZOLE 40 MG TABLET PO SCH (17:10)
[2022-01-31 20:23] LABS: Glucose,Whole Blood 306 mg/dL (75-99)
[2022-01-31] MEDS: traZODone HCL 100 MG TAB PO PRN (20:36)
[2022-01-31] MEDS: FUROSEMIDE 10 MG/ML 4 ML VIAL IV SCH (20:37)
[2022-01-31] MEDS ORDERED: ARIPiprazole 5 MG TAB PO SCH (21:00)
[2022-02-01] MEDS: IPRATROPIUM-ALBUTEROL 3 ML NEB INHALATION SCH ×7 (00:03→23:41)
[2022-02-01 05:57] LABS: Glucose,Whole Blood 320 mg/dL (75-99)
[2022-02-01] MEDS: INSULIN ASPART (NovoLOG) 100 UNIT/ML VIAL SQ SCH ×8 (06:04→21:23)
[2022-02-01] MEDS: LEVOTHYROXINE 100 MCG TAB PO SCH (06:27)
[2022-02-01] MEDS: PANTOPRAZOLE 40 MG TABLET PO SCH ×2 (06:27→15:28)
[2022-02-01] MEDS: ENOXAPARIN 30 MG/0.3 ML SYRINGE SQ SCH (07:48)
[2022-02-01] MEDS: FUROSEMIDE 10 MG/ML 4 ML VIAL IV SCH ×2 (07:48→21:10)
[2022-02-01] MEDS: CITALOPRAM HYDROBROMIDE 20 MG TAB PO SCH (07:49)
[2022-02-01] MEDS: SULFAMETHOX-TMP 800-160MG 1 EACH TAB PO SCH ×2 (07:49→21:45)
[2022-02-01] MEDS: methylPREDNISolone SOD SUCCI 40 MG/ML 1 ML VIAL IV SCH ×2 (07:49→21:10)
[2022-02-01] MEDS: METOPROLOL SUCCINATE (ER) 25 MG TAB.ER.24H PO SCH (07:49)
[2022-02-01] MEDS: ATORVASTATIN 40 MG TAB PO SCH (07:49)
[2022-02-01] MEDS: HYDROcodone/APAP 7.5-325MG 1 EACH TAB PO PRN ×3 (07:52→21:14)
[2022-02-01] MEDS: BUDESONIDE 1 MG/2 ML NEBU INHALATION SCH ×2 (07:53→20:12)
[2022-02-01 09:47] LABS: Calcium 8.1 mg/dL (8.4-10.2); Potassium 4.7 mmol/L (3.5-5.1)
[2022-02-01 12:04] LABS: Glucose,Whole Blood 473 mg/dL (75-99)
--- NOTE | 2022-02-01 12:06 | CDI ---
Documentation Clarification Form Date: 02/01/2022 11:40:44 AM From: Carline Fox RN, CCDS Admit Date: 01/30/2022 11:44:00 PM Patient Name: Ban Estrada Visit Number: [id number] Discharge Date: ATTENTION: The Clinical Documentation Specialists (CDI) and [facility] Coding Staff appreciate your assistance in clarifying documentation. Please respond to the clarification below the line at the bottom and electronically sign. The CDI & [facility] Coding staff will review the response and follow-up if needed. Please note: Queries are made part of the Legal Health Record. If you have any questions, please contact the author of this message via ITS. Dr. Simone Cullen Your patient has an abnormal lab value: 01/30/22 BUN 38, Creatinine 1.79, GFR 28. Please clarify if there is an additional diagnosis and/or clinical significance related to this value. History/Risk Factors: COPD, Asthma, Diabetes Mellitus, Hypertension, Thyroid disorder, Hyperlipidemia, Former smoker Clinical indicators: 71-year-old female present with complaints of shortness of breath. Review of labs showing abnormal BUN/CR, GFR. 02/01 BUN 38, Cr 1.56 01/30 ED assessment: She has chronic kidney disease which is at baseline. Treatment: Monitor renal function per orders Is there an additional diagnosis and/or clinical significance related to the above lab result/information? [ ] Acute on Chronic kidney disease (Stage of CKD [ ] Chronic kidney stage [ ] No additional diagnosis/Not clinically significant [ ] Other, please specify [ ] Unable to determine (Template Last Revised: September 2020) Chronic kidney disease stage III from diabetic nephropathy and hypertensive nephrosclerosis MTDD
--- NOTE | 2022-02-01 12:09 | CA ---
Transthoracic Echo Report Name: Ban Estrada Age: 71 Gender: F : 1950 Exam Date: 02/01/2022 11:32 Exam Location: [facility] Ht (in): 52 Wt (lb): 210 Ordering Physician: Tyrone Kessler MD ([id number]) Attending/Referring Phys: Checo SKELTON Art Professor Maria Dolores Bonds RDCS Procedure CPT: Indications: LV function Cardiac Hx: HTN Technical Quality: Fair Contrast 1: Total Dose (mL): Contrast 2: Total Dose (mL): MEASUREMENTS (Male / Female) Normal Values 2D ECHO LV Diastolic Diameter PLAX 4.2 cm 4.2 - 5.9 / 3.9 - 5.3 cm LV Systolic Diameter PLAX 3.6 cm IVS Diastolic Thickness 1.3 cm 0.6 - 1.0 / 0.6 - 0.9 cm LVPW Diastolic Thickness 1.4 cm 0.6 - 1.0 / 0.6 - 0.9 cm LV Relative Wall Thickness 0.6 RV Internal Dim ED PLAX 3.0 cm LA Volume 70.2 cm??? 18 - 58 / 22 - 52 cm??? M-MODE Aortic Root Diameter MM 2.4 cm LA Systolic Diameter MM 4.1 cm LA Ao Ratio MM 1.7 MV E Point Septal Separation 0.5 cm DOPPLER AV Peak Velocity 299.4 cm/s AV Peak Gradient 35.9 mmHg AV Mean Velocity 206.5 cm/s AV Mean Gradient 19.5 mmHg AV Velocity Time Integral 70.2 cm LVOT Peak Velocity 137.4 cm/s LVOT Peak Gradient 7.5 mmHg MV E' Velocity 6.6 cm/s TR Peak Velocity 401.2 cm/s TR Peak Gradient 64.4 mmHg Right Ventricular Systolic Press 68.7 mmHg FINDINGS Left Ventricle Normal Left ventricular size, Moderately increased left ventricular wall thickness. Inferior hypokinesis left ventricular ejection fraction is estimated at 50-55%. Right Ventricle Normal right ventricular size and function. Moderate to severe pulmonary hypertension. Right Atrium Normal right atrial size. Left Atrium Moderately increased left atrial volume. Mildly increased left atrial area. Mitral Valve Mitral valve thickened. Mild mitral regurgitation. Aortic Valve Moderate aortic stenosis with a peak gradient of 36 mmHg and a mean gradient of 20 mmHg. Tricuspid Valve Moderate tricuspid regurgitation. Pulmonic Valve Pulmonic valve not well visualized. Pericardium Normal pericardium. Aorta Normal size aortic root and proximal ascending aorta. CONCLUSIONS Left ventricular systolic function is fairly well-preserved. There is mild inferobasal hypokinesia. Moderate aortic stenosis and moderate to severe pulmonary hypertension. No pericardial effusion Previewed by: Dr. Eunice Merida MD (Electronically Signed) Final Date: 01 February 2022 12:08
--- NOTE | 2022-02-01 12:09 | P.CRDCN ---
History of Present Illness Consult date: 02/01/22 History of present illness: HISTORY OF PRESENT ILLNESS: This is a 71 year old female with a past medical history significant for congestive heart failure, hypertension, hyperlipidemia, diabetes, and valvular heart disease. Patient follows in the office with Dr. Oh. We have been asked to see the patient in consultation for CHF. Patient examined at the bedside. Patient presented to the hospital with a chief complaint of SOB. Patient states she began having SOB 2 days ago. She denies any chest pain or pressure. She reports increased lower extremity edema. She reports being compliant with her medications and her heart failure diet. The patient was found to be in acute CHF and was started on IV lasix. This morning, the patient states she feels much better and denies any SOB. * EKG reveals sinus mechanism with no signs of acute ischemia * Chest xray cardiomegaly and mild pulmonary vascular congestion. Correlate with BNP for congestive heart failure. * Laboratory data: WBC 10.6. Hemoglobin 7.8. Platelet count 413. Sodium 132. Potassium 4.7. BUN 38. Creatinine 1.56. Magnesium 1.2. ProBNP 4220. * Current home cardiac medications include metoprolol succinate 25 mg daily, Lasix 40 mg daily, Lipitor 40 mg daily * Most recent echocardiogram obtained in October 2021 revealed ejection fraction 55-60%, mild aortic regurgitation, moderate aortic stenosis, [id number] mitral regurgitation, mild mitral stenosis, mild tricuspid regurgitation, and mild pulmonary hypertension * Cardiac catheterization history: patient denies REVIEW OF SYSTEMS: At the time of my exam: CONSTITUTIONAL: Denies fever or chills. HEENT: Denies blurred vision, vision changes, or eye pain. Denies hemoptysis CARDIOVASCULAR: Denies chest pain. Denies orthopnea. Denies PND. Denies palpitations RESPIRATORY: Denies shortness of breath. GASTROINTESTINAL: Denies abdominal pain. Denies nausea or vomiting. HEMATOLOGIC: Denies bleeding disorders. GENITOURINARY: Denies any blood in urine. SKIN: Denies pruitis. Denies rash. PHYSICAL EXAM: VITAL SIGNS: Reviewed. GENERAL: Well-developed in no acute distress. HEENT: Head is normocephalic. Pupils are equal, round. Sclerae anicteric. Mucous membranes of the mouth are moist. Neck supple. No JVD or thyromegaly LUNGS: Respirations even and unlabored. Lungs diminished HEART: Regular rate and rhythm. S1 and S2 heard. Systolic murmur noted. ABDOMEN: Soft. Nondistended. Nontender. EXTREMITIES: Normal range of motion. No clubbing or cyanosis. Peripheral pulses intact. Trace lower extremity edema. Patient was wound to left lower extremity which is currently wrapped with gauze. NEUROLOGIC: Awake and alert. Oriented x 3. ASSESSMENT: Shortness of breath Acute on chronic heart failure with preserved ejection fraction Hypertension Hyperlipidemia COPD with home oxygen use Valvular heart disease Diabetes Left lower extremity wound PLAN: No need to repeat echo as this was performed in October 2021 Continue home cardiac medications Continue IV lasix Monitor kidney function Daily weights Accurate I&O Further recommendations pending patient course Nurse practitioner note has been reviewed by physician. Signing provider agrees with the documented findings, assessment, and plan of care. 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 glaucoma, chronic back pain and degenerative disk disease in the lumbar spine , nephrolithiasis, history of cellulitis in the legs and history of falls. The patient is also a recently quit smoker. History of Any Multi-Drug Resistant Organisms: VRE Date of last positivie culture/infection: 10/21/21 MDRO Source:: urine Past Surgical History: Appendectomy, Bowel Resection, Section, Cholecystectomy, Orthopedic Surgery, Tubal Ligation Additional Past Surgical History / Comment(s): LASER SX JETHRO EYES FOR GLAUCOMA. RT KNEE ARTHROSCOPY. UNDERWENT PERCUTANEOUS NEPHROSTOLITHOTOMY, colo stomy Past Anesthesia/Blood Transfusion Reactions: No Reported Reaction Smoking Status: Former smoker - Past Family History Mother Family Medical History: COPD Additional Family Medical History / Comment(s): emphysema, heart valve problems, in her sleep. Brother(s) Family Medical History: Cancer Additional Family Medical History / Comment(s): from oral cancer Father Brother(s) Family Medical History: Cancer Additional Family Medical History / Comment(s): heart disease Medications and Allergies Home Medications Medication Instructions Recorded Confirmed Type ARIPiprazole [Abilify] 5 mg PO HS 02/07/18 01/30/22 History metFORMIN HCL [Glucophage] 1,000 mg PO BID-W/MEALS 02/07/18 01/30/22 History Atorvastatin [Lipitor] 40 mg PO DAILY #30 tab 09/10/18 01/30/22 Rx Levothyroxine Sodium [Synthroid] 200 mcg PO DAILY 09/03/19 01/30/22 History HYDROcodone/APAP 7.5-325MG [Diana 1 tab PO Q6H PRN #12 tab 03/27/20 01/30/22 Rx 7.5-325] Ipratropium-Albuterol Nebulize 3 ml INHALATION RT-Q2H PRN ml 03/27/20 01/30/22 Rx [Duoneb 0.5 mg-3 mg/3 ml Soln] traZODone HCL 100 mg PO HS PRN 05/15/20 01/30/22 History Magnesium Oxide [Mag-Ox] 400 mg PO DAILY 01/21/21 01/30/22 History Albuterol Nebulized [Ventolin 2.5 mg INHALATION RT-Q6H PRN 10/19/21 01/30/22 History Nebulized] Albuterol Sulfate [Albuterol 2 puff PO RT-Q6H PRN 10/19/21 01/30/22 History Sulfate Hfa] Cholecalciferol [Vitamin D3 (25 25 mcg PO DAILY 10/19/21 01/30/22 History Mcg = 1000 Iu)] Ferrous Sulfate [Iron (65 MG 325 mg PO Q48H 10/19/21 01/30/22 History Elemental)] Pantoprazole Sodium [Protonix] 40 mg PO AC-BID 10/19/21 01/30/22 History Metoprolol Succinate [Toprol XL] 25 mg PO DAILY 11/07/21 01/30/22 History Sulfamethox-Tmp 800-160Mg [Bactrim 1 tab PO Q12HR #14 tab 01/24/22 01/30/22 Rx DS 800-160 mg] Citalopram Hydrobromide [Celexa] 40 mg PO DAILY 01/30/22 01/30/22 History Furosemide [Lasix] 40 mg PO DAILY 01/30/22 01/30/22 History Allergies Allergy/AdvReac Type Severity Reaction Status Date / Time adhesive Allergy Rash/Hives Verified 01/30/22 22:00 ciprofloxacin [From Cipro] Allergy Rash/Hives Verified 01/30/22 22:00 ciprofloxacin HCl Allergy Rash/Hives Verified 01/30/22 22:00 [From Cipro] latex Allergy Rash/Hives Verified 01/30/22 22:00 levofloxacin [From Levaquin] Allergy Rash/Hives Verified 01/30/22 22:00 nitrofurantoin Allergy Rash/Hives Verified 01/30/22 22:00 [From Macrobid] nitrofurantoin Allergy Rash/Hives Verified 01/30/22 22:00 macrocrystalline [From Macrobid] Penicillins Allergy Rash/Hives Verified 01/30/22 22:00 propoxyphene HCl Allergy Rash/Hives Verified 01/30/22 22:00 [From Darvon] propoxyphene napsylate Allergy Unknown Verified 01/30/22 22:00 [From Darvocet-N] sulfamethoxazole Allergy PIPPA Verified 01/30/22 22:00 [From Bactrim] trimethoprim [From Bactrim] Allergy PIPPA Verified 01/30/22 22:00 Physical Exam Vitals: Vital Signs Temp Pulse Pulse Resp BP Pulse Ox 02/01/22 09:30 94 L 02/01/22 08:11 78 02/01/22 08:00 18 02/01/22 07:53 83 93 L 02/01/22 07:45 98 F 82 18 147/62 93 L 02/01/22 04:00 97.9 F 78 18 116/74 91 L 02/01/22 02:00 88 18 01/31/22 23:12 88 18 124/68 92 L 01/31/22 20:00 98.0 F 80 18 118/61 90 L 01/31/22 19:50 91 01/31/22 16:50 90 01/31/22 16:36 92 01/31/22 16:00 98.0 F 70 18 110/62 90 L 01/31/22 12:03 97.8 F 72 18 111/53 90 L Intake and Output 01/31/22 02/01/22 02/01/22 22:59 06:59 14:59 Intake Total 480 240 Output Total 1100 725 Balance -620 -485 Intake: Oral 480 240 Output: Urine 1100 725 Other: Voiding Method External Catheter External Catheter Weight 91.5 kg Results 01/30/22 21:40 02/01/22 08:47 Comprehensive Metabolic Panel 02/01/22 Range/Units 08:47 Sodium 132 L (137-145) mmol/L Potassium 4.7 (3.5-5.1) mmol/L Chloride 101 (98-107) mmol/L Carbon Dioxide 24 (22-30) mmol/L BUN 38 H (7-17) mg/dL Creatinine 1.56 H (0.52-1.04) mg/dL Glucose 305 H (74-99) mg/dL Calcium 8.1 L (8.4-10.2) mg/dL Current Medications Generic Name Dose Route Start Last Admin Trade Name Freq PRN Reason Stop Dose Admin Acetaminophen 650 mg 01/31/22 15:42 Acetaminophen Tab 325 Mg Tab PO Q6HR PRN Mild Pain or Fever > 100.5 Hydrocodone Bitart/Acetaminophen 1 each 01/30/22 23:42 02/01/22 07:52 Hydrocodone/Apap 7.5-325mg 1 Each Tab PO 1 each Q6H PRN Administration Pain Albuterol/Ipratropium 3 ml 01/30/22 23:43 Ipratropium-Albuterol 3 Ml Neb INHALATION RT-Q4H PRN Shortness Of Breath Or Wheezing Albuterol/Ipratropium 3 ml 01/31/22 11:30 02/01/22 11:35 Ipratropium-Albuterol 3 Ml Neb INHALATION Not Given Q4H KIET Aripiprazole 5 mg 01/30/22 23:57 01/31/22 23:00 Aripiprazole 5 Mg Tab PO 5 mg HS KIET Administration Atorvastatin Calcium 40 mg 01/31/22 09:00 02/01/22 07:49 Atorvastatin 40 Mg Tab PO 40 mg DAILY KIET Administration Budesonide 1 mg 01/31/22 11:18 02/01/22 07:53 Budesonide 1 Mg/2 Ml Nebu INHALATION 1 mg RT-BID KIET Administration Calcium Carbonate/Glycine 1,000 mg 01/31/22 15:42 Calcium Carbonate 500 Mg Chewable PO Q4HR PRN Dyspepsia Citalopram Hydrobromide 40 mg 01/31/22 09:45 02/01/22 07:49 Citalopram Hydrobromide 20 Mg Tab PO 40 mg DAILY KIET Administration Enoxaparin Sodium 30 mg 01/31/22 11:30 02/01/22 07:48 Enoxaparin 30 Mg/0.3 Ml Syringe SQ 30 mg DAILY KIET Administration Furosemide 40 mg 01/31/22 21:00 02/01/22 07:48 Furosemide 10 Mg/Ml 4 Ml Vial IV 40 mg Q12HR KIET Administration Insulin Aspart 0 unit 01/31/22 07:30 02/01/22 06:28 Insulin Aspart (Novolog) 100 Unit/Ml Vial SQ 5 unit ACHS KIET Administration Protocol Insulin Aspart 0 unit 01/31/22 17:30 02/01/22 06:04 Insulin Aspart (Novolog) 100 Unit/Ml Vial SQ Not Given ACHS [facility] Protocol Lactulose 20 gm 01/31/22 15:42 Lactulose 20 Gm/30 Ml Cup PO DAILY PRN Constipation Levothyroxine Sodium 200 mcg 01/31/22 06:30 02/01/22 06:27 Levothyroxine 100 Mcg Tab PO 200 mcg DAILY@0630 KIET Administration Lorazepam 0.5 mg 01/31/22 15:42 Lorazepam 0.5 Mg Tab PO Q6HR PRN Anxiety Melatonin 3 mg 01/31/22 15:42 Melatonin 3 Mg Tablet PO HS PRN Insomnia Methylprednisolone Sodium Succinate 40 mg 01/31/22 16:00 02/01/22 07:49 Methylprednisolone Sod Succi 40 Mg/Ml 1 Ml Vial IV 40 mg Q8HR KIET Administration Metoprolol Succinate 25 mg 01/31/22 09:00 02/01/22 07:49 Metoprolol Succinate (Er) 25 Mg Tab.Er.24h PO 25 mg DAILY KIET Administration Naloxone HCl 0.2 mg 01/31/22 15:42 Naloxone 0.4 Mg/Ml 1 Ml Vial IV Q2M PRN Opioid Reversal Ondansetron HCl 4 mg 01/31/22 15:42 Ondansetron 4 Mg/2 Ml Vial IVP Q8HR PRN Nausea And Vomiting Pantoprazole Sodium 40 mg 01/31/22 17:30 02/01/22 06:27 Pantoprazole 40 Mg Tablet PO 40 mg AC-BID KIET Administration Trazodone HCl 100 mg 01/30/22 23:42 01/31/22 20:36 Trazodone Hcl 100 Mg Tab PO 100 mg HS PRN Administration Sedation Trimethoprim/Sulfamethoxazole 1 each 01/31/22 11:30 02/01/22 07:49 Sulfamethox-Tmp 800-160mg 1 Each Tab PO 1 each Q12HR KIET Administration Protocol Intake and Output 01/31/22 02/01/22 02/01/22 22:59 06:59 14:59 Intake Total 480 240 Output Total 1100 725 Balance -620 485 Intake: Oral 480 240 Output: Urine 1100 725 Other: Voiding Method External Catheter External Catheter Weight 91.5 kg 01/30/22 21:40 02/01/22 08:47
--- NOTE | 2022-02-01 13:43 | P.PN ---
Progress Note - Text Progress Note Date: 02/01/22 Chief Complaint: Short of breath This is a pleasant 71-year-old patient follows with visiting physicians. 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 Chronic stable medical conditions include diabetes, hypertension, hyperlipidemia, osteoarthritis, chronic back pain with DJD, kidney stones, patient has 4 L of oxygen at home. Normally uses a walker or wheelchair. Lives with her son. Patient is chronically short of breath. Now presented 1 days of increasing shortness of breath. Cough is a little sputum. Increased wheezing. No fever no chills. Appetite is fair. Bowel movements are variable. Has a colostomy empties it to 3 times a day. Patient has chronic left lower extremity wound. [place]key to be chronic venous ulcers in a diabetic. Admitted with COPD and CHF exacerbation. IV Lasix. Bronchodilators. IV steroids February 01: Breathing better. Oral intake better. On 6 L nasal cannula. On IV Lasix. Bronchodilators. Steroids. Active Medications Acetaminophen (Acetaminophen Tab 325 Mg Tab) 650 mg PO Q6HR PRN PRN Reason: Mild Pain or Fever > 100.5 Hydrocodone Bitart/Acetaminophen (Hydrocodone/Apap 7.5-325mg 1 Each Tab) 1 each PO Q6H PRN PRN Reason: Pain Last Admin: 02/01/22 07:52 Dose: 1 each Albuterol/Ipratropium (Ipratropium-Albuterol 3 Ml Neb) 3 ml INHALATION RT-Q4H PRN PRN Reason: Shortness Of Breath Or Wheezing Albuterol/Ipratropium (Ipratropium-Albuterol 3 Ml Neb) 3 ml INHALATION Q4H [facility] Last Admin: 02/01/22 11:35 Dose: Not Given Aripiprazole (Aripiprazole 5 Mg Tab) 5 mg PO HS [facility] Last Admin: 01/31/22 23:00 Dose: 5 mg Atorvastatin Calcium (Atorvastatin 40 Mg Tab) 40 mg PO DAILY [facility] Last Admin: 02/01/22 07:49 Dose: 40 mg Budesonide (Budesonide 1 Mg/2 Ml Nebu) 1 mg INHALATION RT-BID [facility] Last Admin: 02/01/22 07:53 Dose: 1 mg Calcium Carbonate/Glycine (Calcium Carbonate 500 Mg Chewable) 1,000 mg PO Q4HR PRN PRN Reason: Dyspepsia Citalopram Hydrobromide (Citalopram Hydrobromide 20 Mg Tab) 40 mg PO DAILY [facility] Last Admin: 02/01/22 07:49 Dose: 40 mg Enoxaparin Sodium (Enoxaparin 30 Mg/0.3 Ml Syringe) 30 mg SQ DAILY [facility] Last Admin: 02/01/22 07:48 Dose: 30 mg Furosemide (Furosemide 10 Mg/Ml 4 Ml Vial) 40 mg IV Q12HR [facility] Last Admin: 02/01/22 07:48 Dose: 40 mg Insulin Aspart (Insulin Aspart (Novolog) 100 Unit/Ml Vial) 0 unit SQ [facility]; Protocol Last Admin: 02/01/22 12:56 Dose: 8 unit Insulin Aspart (Insulin Aspart (Novolog) 100 Unit/Ml Vial) 0 unit SQ [facility]; Protocol Last Admin: 02/01/22 12:58 Dose: Not Given Lactulose (Lactulose 20 Gm/30 Ml Cup) 20 gm PO DAILY PRN PRN Reason: Constipation Levothyroxine Sodium (Levothyroxine 100 Mcg Tab) 200 mcg PO DAILY@0630 [facility] Last Admin: 02/01/22 06:27 Dose: 200 mcg Lorazepam (Lorazepam 0.5 Mg Tab) 0.5 mg PO Q6HR PRN PRN Reason: Anxiety Melatonin (Melatonin 3 Mg Tablet) 3 mg PO HS PRN PRN Reason: Insomnia Methylprednisolone Sodium Succinate (Methylprednisolone Sod Succi 40 Mg/Ml 1 Ml Vial) 40 mg IV Q8HR [facility] Last Admin: 02/01/22 07:49 Dose: 40 mg Metoprolol Succinate (Metoprolol Succinate (Er) 25 Mg Tab.Er.24h) 25 mg PO DAILY [facility] Last Admin: 02/01/22 07:49 Dose: 25 mg Naloxone HCl (Naloxone 0.4 Mg/Ml 1 Ml Vial) 0.2 mg IV Q2M PRN PRN Reason: Opioid Reversal Ondansetron HCl (Ondansetron 4 Mg/2 Ml Vial) 4 mg IVP Q8HR PRN PRN Reason: Nausea And Vomiting Pantoprazole Sodium (Pantoprazole 40 Mg Tablet) 40 mg PO AC-BID [facility] Last Admin: 02/01/22 06:27 Dose: 40 mg Trazodone HCl (Trazodone Hcl 100 Mg Tab) 100 mg PO HS PRN PRN Reason: Sedation Last Admin: 01/31/22 20:36 Dose: 100 mg Trimethoprim/Sulfamethoxazole (Sulfamethox-Tmp 800-160mg 1 Each Tab) 1 each PO Q12HR [facility]; Protocol Last Admin: 02/01/22 07:49 Dose: 1 each Past medical history to include: COPD, diabetes, hypertension, hyperlipidemia, osteoarthritis, chronic respiratory failure. His oxygen at home, hypothyroid, basal cell cancer of the eyelid, glaucoma, nephrolithiasis, anxiety depression Social history: Mostly in the wheelchair. Home oxygen 4 L. This with her adult son and . Smoked for over 50 years anyway from half a pack to one pack day. Stopped years ago. No alcohol. Family history: Cancer, heart disease Physical examination: VITAL SIGNS: 98, 82, 18, 147/62, 93% on 6 L GENERAL: reclining in bed, awake less tired EYES: Pupils equal. Conjunctiva normal. HEENT: External appearance of nose and ears normal, oral cavity grossly normal. NECK: Short and thick JVD could not be assessed; masses not palpable. HEART: First and second heart sounds are normal; no edema. LUNGS: Respiratory rate increased; decreased breath sounds, less wheezing. ABDOMEN: Soft, nontender, liver spleen not palpable, no masses palpable. PSYCH: Alert and oriented x3; mood and affect normal. EXTREMITIES: Dressing over the left lower extremity wound. See nursing notes for details INVESTIGATIONS, reviewed in the clinical context: February 01: Sodium 132 potassium 4.7 and 38 creatinine 1.56 2-D echocardiogram: EF 50-55%. Moderate to severe pulmonary hypertension. Moderate aortic stenosis. Moderate tricuspid regurgitation. White count 10.6 hemoglobin 7.8 platelets 413 sodium 132 potassium 4.7 BUN 38 creatinine 1.79 proBNP 4220 EKG tracing personally reviewed by me-no sinus rhythm. Heart rate 89 Chest x-ray film personally reviewed by me: Possible venous prominence Assessment and plan: -Acute on chronic congestive heart failure exacerbation from diastolic dysfunction EF 50-55%. IV Lasix 40 mg every 12. Consult cardiology -Acute COPD exacerbation in a ex-smoker DuoNeb every 4. Decrease IV Solu-Medrol 40 every 12 Nebulized Pulmicort 1 mg every 12. -Acute hypoxic respiratory failure from a combination of COPD and CHF exacerbation: Slow to respond Currently 6 L nasal cannula -Chronic hypoxic is pretty failure from underlying COPD 4 L of oxygen at home -Chronic medical debility Uses a wheelchair/walker at baseline. -Hyperlipidemia Lipitor 40 mg a day -Depression Abilify 5 mg daily at bedtime, Celexa 40 mg a day -Hypothyroid Synthroid 200 g a day -Essential hypertension Toprol-XL 25 mg a day -Chronic left lower extremity venous/diabetic wound. Wound care to continue. -Acute UTI with cystitis. Patient was on antibiotics from home. Continue Bactrim -Diabetes mellitus type 2, chronically on insulin, uncontrolled with hyperglycemia secondary steroids Metformin thousand milligrams by mouth twice a day for Accu-Cheks and sliding scale insulin. Add Levemir 15 units. IV Lasix. DuoNeb. IV and nebulized steroids.. Add Levemir 15 units. Follow Accu-Cheks. Incentive spirometry. discussed with the patient.
[2022-02-01] MEDS ORDERED: INSULIN DETEMIR (LEVEMIR) 100 UNIT/ML SYR SQ SCH (14:00)
[2022-02-01 16:23] LABS: Glucose,Whole Blood 345 mg/dL (70-110)
[2022-02-01 20:01] LABS: Glucose,Whole Blood 441 mg/dL (70-110)
[2022-02-01] MEDS: INSULIN REGULAR 100 UNIT in SODIUM CHLORIDE 0.9% 100 ML IV SCH (21:51)
[2022-02-01 21:53] LABS: Glucose,Whole Blood 466 mg/dL (70-110)
[2022-02-01 22:33] LABS: Glucose,Whole Blood 460 mg/dL (70-110)
[2022-02-01 22:59] LABS: Glucose,Whole Blood 445 mg/dL (70-110)
[2022-02-01] MEDS: traZODone HCL 100 MG TAB PO PRN (23:17)
[2022-02-01] MEDS: ARIPiprazole 5 MG TAB PO SCH (23:17)
[2022-02-01 23:40] LABS: Glucose,Whole Blood 358 mg/dL (70-110)
[2022-02-02 00:05] LABS: Glucose,Whole Blood 307 mg/dL (70-110)
[2022-02-02 00:48] LABS: Glucose,Whole Blood 274 mg/dL (70-110)
[2022-02-02 01:00] LABS: Glucose,Whole Blood 269 mg/dL (70-110)
[2022-02-02 01:33] LABS: Glucose,Whole Blood 221 mg/dL (70-110)
[2022-02-02] MEDS: INSULIN REGULAR 100 UNIT in SODIUM CHLORIDE 0.9% 100 ML IV SCH ×2 (01:36→20:43)
[2022-02-02] MEDS: IPRATROPIUM-ALBUTEROL 3 ML NEB INHALATION SCH ×6 (03:03→23:17)
[2022-02-02 03:34] LABS: Glucose,Whole Blood 218 mg/dL (70-110)
[2022-02-02 05:34] LABS: Glucose,Whole Blood 239 mg/dL (70-110)
[2022-02-02] MEDS: HYDROcodone/APAP 7.5-325MG 1 EACH TAB PO PRN ×3 (05:44→18:35)
[2022-02-02] MEDS: LEVOTHYROXINE 100 MCG TAB PO SCH (05:45)
[2022-02-02] MEDS: PANTOPRAZOLE 40 MG TABLET PO SCH ×2 (06:36→17:43)
[2022-02-02 07:04] LABS: Glucose,Whole Blood 220 mg/dL (70-110)
[2022-02-02] MEDS: BUDESONIDE 1 MG/2 ML NEBU INHALATION SCH ×2 (07:56→19:50)
[2022-02-02 09:22] LABS: Calcium 8.2 mg/dL (8.4-10.2); Potassium 5.3 mmol/L (3.5-5.1)
[2022-02-02 09:33] LABS: Glucose,Whole Blood 264 mg/dL (70-110)
[2022-02-02] MEDS: ATORVASTATIN 40 MG TAB PO SCH (09:45)
[2022-02-02] MEDS: CITALOPRAM HYDROBROMIDE 20 MG TAB PO SCH (09:45)
[2022-02-02] MEDS: methylPREDNISolone SOD SUCCI 40 MG/ML 1 ML VIAL IV SCH (09:46)
[2022-02-02] MEDS: METOPROLOL SUCCINATE (ER) 25 MG TAB.ER.24H PO SCH (09:46)
[2022-02-02] MEDS: SULFAMETHOX-TMP 800-160MG 1 EACH TAB PO SCH ×2 (09:46→20:40)
[2022-02-02] MEDS: ENOXAPARIN 30 MG/0.3 ML SYRINGE SQ SCH (09:47)
[2022-02-02] MEDS: FUROSEMIDE 10 MG/ML 4 ML VIAL IV SCH (09:47)
[2022-02-02] MEDS: metFORMIN 500 MG TAB PO SCH ×2 (10:10→17:43)
[2022-02-02] MEDS ORDERED: predniSONE 20 MG TAB PO SCH (11:00)
[2022-02-02 11:52] LABS: Glucose,Whole Blood 215 mg/dL (70-110)
--- NOTE | 2022-02-02 12:14 | P.PN ---
Subjective Progress Note Date: 02/02/22 Patient is doing very well today she seen resting comfortably in bed without signs of distress. No complaints of shortness of breath or chest pain. Patient's labs today reveal BUN of 42 and creatinine 1.46. Will decrease patient's IV Lasix to 40 mg IV daily. She still has mild lower extremity edema. Her echocardiogram showed mild aortic regurgitation and moderate aortic stenosis, [id number] mitral regurgitation and mild mitral stenosis, and mild tricuspid regurgitation. Objective - Vital Signs Vital signs: Vital Signs Temp 97.4 F L 02/02/22 08:00 Pulse 68 02/02/22 11:42 Resp 17 02/02/22 08:00 BP 149/64 02/02/22 08:00 Pulse Ox 95 02/02/22 08:00 FiO2 Intake & Output 02/01/22 02/02/22 02/02/22 18:59 06:59 18:59 Intake Total 240 99.317 18.967 Output Total 725 1000 Balance -485 -900.683 18.967 Weight 94 kg Intake: Intake, IV Titration 99.317 18.967 Amount Insulin Regular 100 unit 99.317 18.967 In Sodium Chloride 0.9% 100 ml @ Titrate IV .Q0M [facility] Rx#:[id number] Oral 240 Output: Urine 725 1000 Other: Voiding Method External Catheter # Bowel Movements 1 - Exam PHYSICAL EXAM: VITAL SIGNS: Reviewed. GENERAL: Well-developed in no acute distress. HEENT: Head is normocephalic. Pupils are equal, round. Sclerae anicteric. Mucous membranes of the mouth are moist. NECK: Supple. No JVD or thyromegaly RESPIRATORY: Respirations even and unlabored. Lungs diminished to auscultation bilaterally. CARDIO: Regular rate and rhythm. S1 and S2 heard. No murmur or gallops. EXTREMITIES: Normal range of motion. No clubbing or cyanosis. Peripheral pulses intact. Negative for bilateral lower extremity edema NEURO: Orientated to person, time, mood is appropriate - Labs CBC & Chem 7: 01/30/22 21:40 02/02/22 08:50 Labs: Abnormal Lab Results - Last 24 Hours (Table) 02/01/22 02/01/22 02/01/22 Range/Units 08:47 16:22 20:00 Sodium (137-145) mmol/L Potassium (3.5-5.1) mmol/L BUN (7-17) mg/dL Creatinine (0.52-1.04) mg/dL Glucose (74-99) mg/dL POC Glucose (mg/dL) 345 H 441 H (70-110) mg/dL Calcium (8.4-10.2) mg/dL Procalcitonin 0.51 H (0.02-0.09) ng/mL 02/01/22 02/01/22 02/01/22 Range/Units 21:50 22:32 22:58 Sodium (137-145) mmol/L Potassium (3.5-5.1) mmol/L BUN (7-17) mg/dL Creatinine (0.52-1.04) mg/dL Glucose (74-99) mg/dL POC Glucose (mg/dL) 466 H 460 H 445 H (70-110) mg/dL Calcium (8.4-10.2) mg/dL Procalcitonin (0.02-0.09) ng/mL 02/01/22 02/02/22 02/02/22 Range/Units 23:37 00:04 00:36 Sodium (137-145) mmol/L Potassium (3.5-5.1) mmol/L BUN (7-17) mg/dL Creatinine (0.52-1.04) mg/dL Glucose (74-99) mg/dL POC Glucose (mg/dL) 358 H 307 H 274 H (70-110) mg/dL Calcium (8.4-10.2) mg/dL Procalcitonin (0.02-0.09) ng/mL 02/02/22 02/02/22 02/02/22 Range/Units 00:58 01:31 03:33 Sodium (137-145) mmol/L Potassium (3.5-5.1) mmol/L BUN (7-17) mg/dL Creatinine (0.52-1.04) mg/dL Glucose (74-99) mg/dL POC Glucose (mg/dL) 269 H 221 H 218 H (70-110) mg/dL Calcium (8.4-10.2) mg/dL Procalcitonin (0.02-0.09) ng/mL 02/02/22 02/02/22 02/02/22 Range/Units 05:32 07:00 08:50 Sodium 135 L (137-145) mmol/L Potassium 5.3 H (3.5-5.1) mmol/L BUN 42 H (7-17) mg/dL Creatinine 1.46 H (0.52-1.04) mg/dL Glucose 228 H (74-99) mg/dL POC Glucose (mg/dL) 239 H 220 H (70-110) mg/dL Calcium 8.2 L (8.4-10.2) mg/dL Procalcitonin (0.02-0.09) ng/mL 02/02/22 02/02/22 Range/Units 09:31 11:51 Sodium (137-145) mmol/L Potassium (3.5-5.1) mmol/L BUN (7-17) mg/dL Creatinine (0.52-1.04) mg/dL Glucose (74-99) mg/dL POC Glucose (mg/dL) 264 H 215 H (70-110) mg/dL Calcium (8.4-10.2) mg/dL Procalcitonin (0.02-0.09) ng/mL Assessment and Plan Assessment: Shortness of breath Acute on chronic diastolic congestive heart failure Hypertension Hyperlipidemia COPD exacerbation with home oxygen use Valvular heart disease Diabetes Left lower extremity wound Plan: Decrease IV Lasix to 40 mg daily Continue with all other current cardiac medications Continue to monitor kidney function Daily weights Accurate intake and output Insert further recommendations
[2022-02-02 14:38] LABS: Glucose,Whole Blood 234 mg/dL (70-110)
[2022-02-02 16:04] LABS: Glucose,Whole Blood 211 mg/dL (70-110)
--- NOTE | 2022-02-02 18:03 | P.PN ---
Progress Note - Text Progress Note Date: 02/02/22 Chief Complaint: Short of breath This is a pleasant 71-year-old patient follows with visiting physicians. 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 Chronic stable medical conditions include diabetes, hypertension, hyperlipidemia, osteoarthritis, chronic back pain with DJD, kidney stones, patient has 4 L of oxygen at home. Normally uses a walker or wheelchair. Lives with her son. Patient is chronically short of breath. Now presented 1 days of increasing shortness of breath. Cough is a little sputum. Increased wheezing. No fever no chills. Appetite is fair. Bowel movements are variable. Has a colostomy empties it to 3 times a day. Patient has chronic left lower extremity wound. [place] to be chronic venous ulcers in a diabetic. Admitted with COPD and CHF exacerbation. IV Lasix. Bronchodilators. IV steroids February 01: Breathing better. Oral intake better. On 6 L nasal cannula. On IV Lasix. Bronchodilators. Steroids. February 02: Patient's put on insulin drip yesterday. Because of Accu-Cheks running in 400s. Patient has been on IV Solu-Medrol. Discontinue today. Changed to oral prednisone. Breathing is better. Oral intake fair. Active Medications Acetaminophen (Acetaminophen Tab 325 Mg Tab) 650 mg PO Q6HR PRN PRN Reason: Mild Pain or Fever > 100.5 Hydrocodone Bitart/Acetaminophen (Hydrocodone/Apap 7.5-325mg 1 Each Tab) 1 each PO Q6H PRN PRN Reason: Pain Last Admin: 02/02/22 12:32 Dose: 1 each Albuterol/Ipratropium (Ipratropium-Albuterol 3 Ml Neb) 3 ml INHALATION RT-Q4H PRN PRN Reason: Shortness Of Breath Or Wheezing Albuterol/Ipratropium (Ipratropium-Albuterol 3 Ml Neb) 3 ml INHALATION Q4H KIET Last Admin: 02/02/22 16:16 Dose: 3 ml Aripiprazole (Aripiprazole 5 Mg Tab) 5 mg PO HS KIET Last Admin: 02/01/22 23:17 Dose: 5 mg Atorvastatin Calcium (Atorvastatin 40 Mg Tab) 40 mg PO DAILY KIET Last Admin: 02/02/22 09:45 Dose: 40 mg Budesonide (Budesonide 1 Mg/2 Ml Nebu) 1 mg INHALATION RT-BID KIET Last Admin: 02/02/22 07:56 Dose: 1 mg Calcium Carbonate/Glycine (Calcium Carbonate 500 Mg Chewable) 1,000 mg PO Q4HR PRN PRN Reason: Dyspepsia Citalopram Hydrobromide (Citalopram Hydrobromide 20 Mg Tab) 40 mg PO DAILY [facility] Last Admin: 02/02/22 09:45 Dose: 40 mg Enoxaparin Sodium (Enoxaparin 30 Mg/0.3 Ml Syringe) 30 mg SQ DAILY [facility] Last Admin: 02/02/22 09:47 Dose: 30 mg Furosemide (Furosemide 10 Mg/Ml 4 Ml Vial) 40 mg IV DAILY [facility] Insulin Human Regular 100 unit (/ Sodium Chloride) 101 mls @ 0 mls/hr IV .Q0M [facility]; Protocol Last Titration: 02/02/22 16:06 Dose: 0.04 units/kg/hr, 4 mls/hr Lactulose (Lactulose 20 Gm/30 Ml Cup) 20 gm PO DAILY PRN PRN Reason: Constipation Levothyroxine Sodium (Levothyroxine 100 Mcg Tab) 200 mcg PO DAILY@0630 [facility] Last Admin: 02/02/22 05:45 Dose: 200 mcg Lorazepam (Lorazepam 0.5 Mg Tab) 0.5 mg PO Q6HR PRN PRN Reason: Anxiety Melatonin (Melatonin 3 Mg Tablet) 3 mg PO HS PRN PRN Reason: Insomnia Metformin HCl (Metformin 500 Mg Tab) 1,000 mg PO BID-W/MEALS [facility] Last Admin: 02/02/22 17:43 Dose: 1,000 mg Metoprolol Succinate (Metoprolol Succinate (Er) 25 Mg Tab.Er.24h) 25 mg PO DAILY [facility] Last Admin: 02/02/22 09:46 Dose: 25 mg Naloxone HCl (Naloxone 0.4 Mg/Ml 1 Ml Vial) 0.2 mg IV Q2M PRN PRN Reason: Opioid Reversal Ondansetron HCl (Ondansetron 4 Mg/2 Ml Vial) 4 mg IVP Q8HR PRN PRN Reason: Nausea And Vomiting Pantoprazole Sodium (Pantoprazole 40 Mg Tablet) 40 mg PO AC-BID [facility] Last Admin: 02/02/22 17:43 Dose: 40 mg Prednisone (Prednisone 20 Mg Tab) 40 mg PO DAILY [facility] Last Admin: 02/02/22 12:21 Dose: 40 mg Trazodone HCl (Trazodone Hcl 100 Mg Tab) 100 mg PO HS PRN PRN Reason: Sedation Last Admin: 02/01/22 23:17 Dose: 100 mg Trimethoprim/Sulfamethoxazole (Sulfamethox-Tmp 800-160mg 1 Each Tab) 1 each PO Q12HR [facility]; Protocol Last Admin: 02/02/22 09:46 Dose: 1 each Past medical history to include: COPD, diabetes, hypertension, hyperlipidemia, osteoarthritis, chronic respiratory failure. His oxygen at home, hypothyroid, basal cell cancer of the eyelid, glaucoma, nephrolithiasis, anxiety depression Social history: Mostly in the wheelchair. Home oxygen 4 L. This with her adult son and . Smoked for over 50 years anyway from half a pack to one pack day. Stopped years ago. No alcohol. Family history: Cancer, heart disease Physical examination: VITAL SIGNS: 98.2, 63, 18, 152/70, 92% on 5 L GENERAL: reclining in bed, awake EYES: Pupils equal. Conjunctiva normal. HEENT: External appearance of nose and ears normal, oral cavity grossly normal. NECK: Short and thick JVD could not be assessed; masses not palpable. HEART: First and second heart sounds are normal; no edema. LUNGS: Respiratory rate increased; decreased breath sounds, ABDOMEN: Soft, nontender, liver spleen not palpable, no masses palpable. PSYCH: Alert and oriented x3; mood and affect normal. EXTREMITIES: Dressing over the left lower extremity wound. See nursing notes for details INVESTIGATIONS, reviewed in the clinical context: February 02: Magnesium 1.5 February 01: Sodium 132 potassium 4.7 and 38 creatinine 1.56 2-D echocardiogram: EF 50-55%. Moderate to severe pulmonary hypertension. Moderate aortic stenosis. Moderate tricuspid regurgitation. White count 10.6 hemoglobin 7.8 platelets 413 sodium 132 potassium 4.7 BUN 38 creatinine 1.79 proBNP 4220 EKG tracing personally reviewed by me-no sinus rhythm. Heart rate 89 Chest x-ray film personally reviewed by me: Possible venous prominence Assessment and plan: -Acute on chronic congestive heart failure exacerbation from diastolic dysfunction EF 50-55%.: Improving IV Lasix 40 mg decreased to daily. Follow with cardiology -Acute COPD exacerbation in a ex-smoker: Improving DuoNeb every 4. Decrease IV Solu-Medrol 40 every 12-changed to oral prednisone Nebulized Pulmicort 1 mg every 12. -Acute hypoxic respiratory failure from a combination of COPD and CHF exacerbation: Slow to respond Currently 5 L nasal cannula -Chronic hypoxic is pretty failure from underlying COPD 4 L of oxygen at home -Chronic medical debility Uses a wheelchair/walker at baseline. -Hyperlipidemia Lipitor 40 mg a day -Depression Abilify 5 mg daily at bedtime, Celexa 40 mg a day -Hypothyroid Synthroid 200 g a day -Essential hypertension Toprol-XL 25 mg a day -Chronic left lower extremity venous/diabetic wound. Wound care to continue. -Acute UTI with cystitis. Patient was on antibiotics from home. Continue Bactrim -Diabetes mellitus type 2, chronically on insulin, uncontrolled with hyperglycemia secondary steroids Metformin thousand milligrams by mouth twice a day for Accu-Cheks and sliding scale insulin. Currently on insulin drip. IV Lasix 40 mg every 12.. DuoNeb. IV Solu-Medrol changed to oral prednisone... Insulin drip. Discussed with patient. Incentive spirometry reinforced.
[2022-02-02 18:18] LABS: Glucose,Whole Blood 381 mg/dL (70-110)
[2022-02-02] MEDS: SODIUM ZIRCONIUM CYCLOSILICATE 10 GM PACKET PO SCH ×2 (18:27→22:35)
[2022-02-02 19:55] LABS: Glucose,Whole Blood 366 mg/dL (70-110)
[2022-02-02] MEDS: MAGNESIUM OXIDE 400 MG TAB PO SCH (20:40)
[2022-02-02 22:06] LABS: Glucose,Whole Blood 350 mg/dL (70-110)
[2022-02-02] MEDS: traZODone HCL 100 MG TAB PO PRN (22:35)
[2022-02-02] MEDS: ARIPiprazole 5 MG TAB PO SCH (22:35)
[2022-02-03 00:08] LABS: Glucose,Whole Blood 255 mg/dL (70-110)
[2022-02-03 01:57] LABS: Glucose,Whole Blood 205 mg/dL (70-110)
[2022-02-03] MEDS: IPRATROPIUM-ALBUTEROL 3 ML NEB INHALATION SCH ×3 (03:00→11:38)
[2022-02-03 04:18] LABS: Glucose,Whole Blood 133 mg/dL (70-110)
[2022-02-03 06:21] LABS: Glucose,Whole Blood 98 mg/dL (70-110)
[2022-02-03] MEDS: HYDROcodone/APAP 7.5-325MG 1 EACH TAB PO PRN (06:52)
[2022-02-03] MEDS: LEVOTHYROXINE 100 MCG TAB PO SCH (06:52)
[2022-02-03] MEDS: PANTOPRAZOLE 40 MG TABLET PO SCH (06:53)
[2022-02-03 06:58] LABS: Glucose,Whole Blood 89 mg/dL (70-110)
[2022-02-03 08:04] LABS: Glucose,Whole Blood 125 mg/dL (70-110)
[2022-02-03] MEDS: BUDESONIDE 1 MG/2 ML NEBU INHALATION SCH (08:32)
[2022-02-03] MEDS: metFORMIN 500 MG TAB PO SCH (08:49)
[2022-02-03] MEDS: SODIUM ZIRCONIUM CYCLOSILICATE 10 GM PACKET PO SCH (08:49)
[2022-02-03] MEDS: METOPROLOL SUCCINATE (ER) 25 MG TAB.ER.24H PO SCH (08:50)
[2022-02-03] MEDS: MAGNESIUM OXIDE 400 MG TAB PO SCH (08:50)
[2022-02-03] MEDS: ATORVASTATIN 40 MG TAB PO SCH (08:50)
[2022-02-03] MEDS: CITALOPRAM HYDROBROMIDE 20 MG TAB PO SCH (08:51)
[2022-02-03] MEDS: ENOXAPARIN 30 MG/0.3 ML SYRINGE SQ SCH (08:53)
[2022-02-03] MEDS ORDERED: predniSONE 10 MG TAB PO SCH (09:00)
[2022-02-03] MEDS ORDERED: FUROSEMIDE 10 MG/ML 4 ML VIAL IV SCH (09:00)
[2022-02-03] MEDS: SULFAMETHOX-TMP 800-160MG 1 EACH TAB PO SCH (09:02)
[2022-02-03 10:39] LABS: Calcium 8.5 mg/dL (8.4-10.2); Potassium 4.6 mmol/L (3.5-5.1)
[2022-02-03 11:33] LABS: Glucose,Whole Blood 136 mg/dL (70-110)
[2022-02-03 12:10] VITALS: BP 151/56; PULSE 62; RESP 17; TEMP 98.1
--- NOTE | 2022-02-03 12:23 | P.PN ---
Subjective Progress Note Date: 02/03/22 Patient is seen today resting comfortably without signs of acute distress. She denies chest pain or increased shortness of breath. Patient will be transitioned to oral Lasix today. Patient is doing very well today she seen resting comfortably in bed without signs of distress. No complaints of shortness of breath or chest pain. Will continue with current cardiac medications. Plan is possible discharged today Objective - Vital Signs Vital signs: Vital Signs Temp 98.1 F 02/03/22 12:00 Pulse 62 02/03/22 12:00 Resp 17 02/03/22 12:00 BP 151/56 02/03/22 12:00 Pulse Ox 94 L 02/03/22 12:00 FiO2 Intake & Output 02/02/22 02/03/22 02/03/22 18:59 06:59 18:59 Intake Total 175.600 83.817 118 Output Total 300 Balance 175.600 -216.183 118 Weight 90.5 kg Intake: Intake, IV Titration 57.600 83.817 Amount Insulin Regular 100 unit 57.600 83.817 In Sodium Chloride 0.9% 100 ml @ Titrate IV .Q0M [facility] Rx#:[id number] Oral 118 118 Output: Urine 300 Other: Voiding Method External Catheter External Catheter External Catheter # Bowel Movements 1 1 - Exam PHYSICAL EXAM: VITAL SIGNS: Reviewed. GENERAL: Well-developed in no acute distress. HEENT: Head is normocephalic. Pupils are equal, round. Sclerae anicteric. Mucous membranes of the mouth are moist. NECK: Supple. No JVD or thyromegaly RESPIRATORY: Respirations even and unlabored. Lungs diminished to auscultation bilaterally. CARDIO: Regular rate and rhythm. S1 and S2 heard. No murmur or gallops. EXTREMITIES: Normal range of motion. No clubbing or cyanosis. Peripheral pulses intact. Negative for bilateral lower extremity edema NEURO: Orientated to person, time, mood is appropriate - Labs CBC & Chem 7: 01/30/22 21:40 02/03/22 09:41 Labs: Abnormal Lab Results - Last 24 Hours (Table) 02/02/22 02/02/22 02/02/22 Range/Units 14:24 16:03 16:46 Sodium (137-145) mmol/L BUN (7-17) mg/dL Creatinine (0.52-1.04) mg/dL Glucose (74-99) mg/dL POC Glucose (mg/dL) 234 H 211 H (70-110) mg/dL Magnesium 1.5 L (1.6-2.3) mg/dL 02/02/22 02/02/22 02/02/22 Range/Units 18:17 19:54 22:05 Sodium (137-145) mmol/L BUN (7-17) mg/dL Creatinine (0.52-1.04) mg/dL Glucose (74-99) mg/dL POC Glucose (mg/dL) 381 H 366 H 350 H (70-110) mg/dL Magnesium (1.6-2.3) mg/dL 02/03/22 02/03/22 02/03/22 Range/Units 00:04 01:55 04:10 Sodium (137-145) mmol/L BUN (7-17) mg/dL Creatinine (0.52-1.04) mg/dL Glucose (74-99) mg/dL POC Glucose (mg/dL) 255 H 205 H 133 H (70-110) mg/dL Magnesium (1.6-2.3) mg/dL 02/03/22 02/03/22 02/03/22 Range/Units 08:02 09:41 11:32 Sodium 133 L (137-145) mmol/L BUN 45 H (7-17) mg/dL Creatinine 1.54 H (0.52-1.04) mg/dL Glucose 113 H (74-99) mg/dL POC Glucose (mg/dL) 125 H 136 H (70-110) mg/dL Magnesium (1.6-2.3) mg/dL Assessment and Plan Assessment: Acute on chronic diastolic congestive heart failure Hypertension Hyperlipidemia COPD exacerbation with home oxygen use Valvular heart disease Diabetes Left lower extremity wound Plan: Transition patient to oral Lasix Continue with all other current cardiac medications Continue to monitor kidney function Daily weights Accurate intake and output Patient may be discharged from a cardiac standpoint The above impression and plan of care have been discussed and directed by the signing physician. Tanisha Saravia, nurse practitioner, acting as scribe for signing physician.
[2022-02-03] MEDS ORDERED: INSULIN ASPART (NovoLOG) 100 UNIT/ML VIAL SQ SCH (12:30)
--- NOTE | 2022-02-03 16:47 | P.DS ---
Providers Date of admission: 01/30/22 23:44 Expected date of discharge: 02/03/22 Attending physician: Simone Cullen Consults: 01/31/22 15:35 Consult Physician Routine Consulting Provider: Tyrone Kessler Consult Reason/Comments: CHF Do you want consulting provider notified?: Yes 01/31/22 15:44 Consult Physician Routine Consulting Provider: Leonel Baptiste Consult Reason/Comments: COPD Do you want consulting provider notified?: Yes Primary care physician: [facility] Course: Chief Complaint: Short of breath This is a pleasant 71-year-old patient follows with visiting physicians. 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 Chronic stable medical conditions include diabetes, hypertension, hyperlipidemia, osteoarthritis, chronic back pain with DJD, kidney stones, patient has 4 L of oxygen at home. Normally uses a walker or wheelchair. Lives with her son. Patient is chronically short of breath. Now presented 1 days of increasing shortness of breath. Cough is a little sputum. Increased wheezing. No fever no chills. Appetite is fair. Bowel movements are variable. Has a colostomy empties it to 3 times a day. Patient has chronic left lower extremity wound. [place] to be chronic venous ulcers in a diabetic. Admitted with COPD and CHF exacerbation. IV Lasix. Bronchodilators. IV steroids February 01: Breathing better. Oral intake better. On 6 L nasal cannula. On IV Lasix. Bronchodilators. Steroids. February 02: Patient's put on insulin drip yesterday. Because of Accu-Cheks running in 400s. Patient has been on IV Solu-Medrol. Discontinue today. Changed to oral prednisone. Breathing is better. Oral intake fair. February 03: S1 drip was discontinued. Stable. Short prednisone taper. Symbicort 160/4.5 added Past medical history to include: COPD, diabetes, hypertension, hyperlipidemia, osteoarthritis, chronic respiratory failure. His oxygen at home, hypothyroid, basal cell cancer of the eyelid, glaucoma, nephrolithiasis, anxiety depression Social history: Mostly in the wheelchair. Home oxygen 4 L. This with her adult son and . Smoked for over 50 years anyway from half a pack to one pack day. Stopped years ago. No alcohol. Family history: Cancer, heart disease Physical examination: VITAL SIGNS: 98.1, 62, 17, 151/56, 94% on 4 L GENERAL: reclining in bed, awake EYES: Pupils equal. Conjunctiva normal. HEENT: External appearance of nose and ears normal, oral cavity grossly normal. NECK: Short and thick JVD could not be assessed; masses not palpable. HEART: First and second heart sounds are normal; no edema. LUNGS: Respiratory rate increased; decreased breath sounds, ABDOMEN: Soft, nontender, liver spleen not palpable, no masses palpable. PSYCH: Alert and oriented x3; mood and affect normal. EXTREMITIES: Dressing over the left lower extremity wound. See nursing notes for details INVESTIGATIONS, reviewed in the clinical context: February 03:4.6 BUN 45 creatinine 1.5 for February 02: Magnesium 1.5 February 01: Sodium 132 potassium 4.7 and 38 creatinine 1.56 2-D echocardiogram: EF 50-55%. Moderate to severe pulmonary hypertension. Moderate aortic stenosis. Moderate tricuspid regurgitation. White count 10.6 hemoglobin 7.8 platelets 413 sodium 132 potassium 4.7 BUN 38 creatinine 1.79 proBNP 4220 EKG tracing personally reviewed by me-no sinus rhythm. Heart rate 89 Chest x-ray film personally reviewed by me: Possible venous prominence Assessment and plan: -Acute on chronic congestive heart failure exacerbation from diastolic dysfunction EF 50-55%.: Better IV Lasix 40 mg decreased to daily. Follow with cardiology. Oral Lasix -Acute COPD exacerbation in a ex-smoker: Improving DuoNeb every 4. Decrease IV Solu-Medrol 40 every 12-changed to oral prednisone Nebulized Pulmicort 1 mg every 12. Add Symbicort for discharge -Acute hypoxic respiratory failure from a combination of COPD and CHF exacerbation: Better -Chronic hypoxic is pretty failure from underlying COPD 4 L of oxygen at home -Chronic medical debility Uses a wheelchair/walker at baseline. -Hyperlipidemia Lipitor 40 mg a day -Depression Abilify 5 mg daily at bedtime, Celexa 40 mg a day -Hypothyroid Synthroid 200 g a day -Essential hypertension Toprol-XL 25 mg a day -Chronic left lower extremity venous/diabetic wound. Wound care to continue. -Acute UTI with cystitis. Patient was on antibiotics from home. Continue Bactrim-completed course -Diabetes mellitus type 2, chronically on insulin, uncontrolled with hyperglycemia secondary steroids Metformin thousand milligrams by mouth twice a day for Accu-Cheks and sliding scale insulin. Currently on insulin drip. Disposition: Home Plan - Discharge Summary Discharge Rx Participant: No New Discharge Prescriptions: New Budesonide-Formot 160-4.5 Mcg [Symbicort 160-4.5 Mcg Inhaler] 2 puff INHALATION BID #10.2 gm predniSONE 0 mg PO DIRECTED #12 tab Continue metFORMIN HCL [Glucophage] 1,000 mg PO BID-W/MEALS ARIPiprazole [Abilify] 5 mg PO HS Atorvastatin [Lipitor] 40 mg PO DAILY #30 tab Levothyroxine Sodium [Synthroid] 200 mcg PO DAILY HYDROcodone/APAP 7.5-325MG [[place] 7.5-325] 1 tab PO Q6H PRN #12 tab PRN Reason: Pain traZODone HCL 100 mg PO HS PRN PRN Reason: Sedation Ferrous Sulfate [Iron (65 MG Elemental)] 325 mg PO Q48H Pantoprazole Sodium [Protonix] 40 mg PO AC-BID Cholecalciferol [Vitamin D3 (25 Mcg = 1000 Iu)] 25 mcg PO DAILY Albuterol Sulfate [Albuterol Sulfate Hfa] 2 puff PO RT-Q6H PRN PRN Reason: Shortness Of Breath Albuterol Nebulized [Ventolin Nebulized] 2.5 mg INHALATION RT-Q6H PRN PRN Reason: Shortness Of Breath Citalopram Hydrobromide [CeleXA] 40 mg PO DAILY Magnesium Oxide [Mag-Ox] 400 mg PO DAILY Metoprolol Succinate [Toprol XL] 25 mg PO DAILY Furosemide [Lasix] 40 mg PO DAILY Changed Ipratropium-Albuterol Nebulize [Duoneb 0.5 mg-3 mg/3 ml Soln] 3 ml INHALATION QID #120 ml Discontinued Sulfamethox-Tmp 800-160Mg [Bactrim DS 800-160 mg] 1 tab PO Q12HR #14 tab Discharge Medication List ARIPiprazole [Abilify] 5 mg PO HS 02/07/18 [History] metFORMIN HCL [Glucophage] 1,000 mg PO BID-W/MEALS 02/07/18 [History] Atorvastatin [Lipitor] 40 mg PO DAILY #30 tab 09/10/18 [Rx] Levothyroxine Sodium [Synthroid] 200 mcg PO DAILY 09/03/19 [History] HYDROcodone/APAP 7.5-325MG [[place] 7.5-325] 1 tab PO Q6H PRN #12 tab 03/27/20 [Rx] traZODone HCL 100 mg PO HS PRN 05/15/20 [History] Magnesium Oxide [Mag-Ox] 400 mg PO DAILY 01/21/21 [History] Albuterol Nebulized [Ventolin Nebulized] 2.5 mg INHALATION RT-Q6H PRN 10/19/21 [History] Albuterol Sulfate [Albuterol Sulfate Hfa] 2 puff PO RT-Q6H PRN 10/19/21 [History] Cholecalciferol [Vitamin D3 (25 Mcg = 1000 Iu)] 25 mcg PO DAILY 10/19/21 [History] Ferrous Sulfate [Iron (65 MG Elemental)] 325 mg PO Q48H 10/19/21 [History] Pantoprazole Sodium [Protonix] 40 mg PO AC-BID 10/19/21 [History] Metoprolol Succinate [Toprol XL] 25 mg PO DAILY 11/07/21 [History] Citalopram Hydrobromide [CeleXA] 40 mg PO DAILY 01/30/22 [History] Furosemide [Lasix] 40 mg PO DAILY 01/30/22 [History] Budesonide-Formot 160-4.5 Mcg [Symbicort 160-4.5 Mcg Inhaler] 2 puff INHALATION BID #10.2 gm 02/03/22 [Rx] Ipratropium-Albuterol Nebulize [Duoneb 0.5 mg-3 mg/3 ml Soln] 3 ml INHALATION QID #120 ml 02/03/22 [Rx] predniSONE 0 mg PO DIRECTED #12 tab 02/03/22 [Rx] Follow up Appointment(s)/Referral(s): Levi Austin MD [Primary Care Provider] - 02/07/22 (Office will call patient with time of appointment ) Saúl Merida MD [STAFF PHYSICIAN] - 1 Week (Office is currently closed. Please call to make follow up appointment ) Patient Instructions/Handouts: Heart Failure (DC) Discharge Disposition: HOME WITH HOME HEALTH SERVICES
== END 2022-02-03 14:40 | disposition home health service (06) | DRG 291 ==
LOC: EC 20:12 → 3SCARD 23:44
PROVIDERS: ADMIT Hospitalist; ATTEND Hospitalist
DX: I13.0 Hypertensive heart and chronic kidney disease with heart failure and stage 1 through stage 4 chronic kidney disease, or unspecified chronic kidney disease (principal); I50.33 Acute on chronic diastolic (congestive) heart failure; J96.21 Acute and chronic respiratory failure with hypoxia; Z68.41 Body mass index [BMI] 40.0-44.9, adult; N30.00 Acute cystitis without hematuria; I87.332 Chronic venous hypertension (idiopathic) with ulcer and inflammation of left lower extremity; L97.221 Non-pressure chronic ulcer of left calf limited to breakdown of skin; J44.1 Chronic obstructive pulmonary disease with (acute) exacerbation; E11.22 Type 2 diabetes mellitus with diabetic chronic kidney disease; E11.65 Type 2 diabetes mellitus with hyperglycemia; D64.9 Anemia, unspecified; E03.9 Hypothyroidism, unspecified; E78.5 Hyperlipidemia, unspecified; F32.A Depression, unspecified; T38.0X5A Adverse effect of glucocorticoids and synthetic analogues, initial encounter; E66.9 Obesity, unspecified; E11.622 Type 2 diabetes mellitus with other skin ulcer; R53.81 Other malaise; I08.3 Combined rheumatic disorders of mitral, aortic and tricuspid valves; Z99.81 Dependence on supplemental oxygen; N18.30 Chronic kidney disease, stage 3 unspecified; Z28.310 Unvaccinated for COVID-19; F41.9 Anxiety disorder, unspecified; G47.00 Insomnia, unspecified; G89.29 Other chronic pain; M51.36 Other intervertebral disc degeneration, lumbar region; H40.9 Unspecified glaucoma; K59.00 Constipation, unspecified; M19.90 Unspecified osteoarthritis, unspecified site; N20.0 Calculus of kidney; Z79.4 Long term (current) use of insulin; Z79.84 Long term (current) use of oral hypoglycemic drugs; Z79.890 Hormone replacement therapy; Z79.899 Other long term (current) drug therapy; Z85.828 Personal history of other malignant neoplasm of skin; Z87.442 Personal history of urinary calculi; Z87.891 Personal history of nicotine dependence; Z91.81 History of falling; Z93.3 Colostomy status; Z98.890 Other specified postprocedural states; Z98.51 Tubal ligation status; Z90.49 Acquired absence of other specified parts of digestive tract; Z86.19 Personal history of other infectious and parasitic diseases; Z82.5 Family history of asthma and other chronic lower respiratory diseases; Z80.8 Family history of malignant neoplasm of other organs or systems; Z82.49 Family history of ischemic heart disease and other diseases of the circulatory system
CPT/HCPCS: 36415; 71045; 80048; 80053; 83036; 83605; 83735; 83880; 84145; 85025; 85610; 85730; 93005; 93306; 94640; 94760; 96365; 99285

== ENCOUNTER 2022-02-12 22:03 | Inpatient (IN) | payer MEDICARE, OTHER ==
[2022-02-12 23:55] LABS: Appearance,Urine Turbid (Clear); Bacteria,Urine Many /hpf; Bilirubin,Urine 1+ (Negative); Blood,Urine Large (Negative); Color,Urine Dark Brown; Glucose,Urine (UA) Negative (Negative); Ketones,Urine Negative (Negative); Leukocyte Esterase,Urine Large (Negative); Mucus,Urine Occasional /hpf; Nitrite,Urine Positive (Negative); Protein,Urine 3+ (Negative); RBC,Urine >182 /hpf (0-5); WBC,Urine >182 /hpf (0-5)
[2022-02-12 23:57] LABS: Specific Gravity,Urine 1.015 (1.001-1.035)
[2022-02-13 02:01] LABS: Anisocytosis Slight; Basophils % (A) 0 %; Eosinophils # (A) 0.2 k/uL (0-0.7); Eosinophils % (A) 2 %; HCT 35.6 % (34.0-46.0); HGB 10.1 gm/dL (11.4-16.0); Hypochromasia Marked; Lymphocytes # (A) 0.4 k/uL (1.0-4.8); Lymphocytes % (A) 6 %; MCH 27.3 pg (25.0-35.0); MCHC 28.5 g/dL (31.0-37.0); MCV 95.7 fL (80.0-100.0); Mean Platelet Volume 7.4; Monocytes # (A) 0.5 k/uL (0-1.0); Monocytes % (A) 6 %; Neutrophils # (A) 6.1 k/uL (1.3-7.7); Neutrophils % (A) 83 %; Platelet Count 287 k/uL (150-450); RBC 3.72 m/uL (3.80-5.40); RDW 17.2 % (11.5-15.5); WBC 7.3 k/uL (3.8-10.6)
--- NOTE | 2022-02-13 02:15 | ED ---
General Adult HPI - General Chief complaint: Urogenital Stated complaint: UTI Time Seen by Provider: 02/13/22 00:39 Source: patient, RN notes reviewed Mode of arrival: ambulatory Limitations: no limitations - History of Present Illness Initial comments: 71-year-old female presents to the emergency department under the direction of her PCP for initiation of IV antibiotic therapy for UTI; patient has been on Bactrim at home. 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 Complains of ongoing burning pain with urination. Denies fever, chills, chest pain, abdominal pain, nausea, vomiting, and lower extremity edema. - Related Data Home Medications Medication Instructions Recorded Confirmed ARIPiprazole [Abilify] 5 mg PO HS 02/07/18 01/30/22 metFORMIN HCL [Glucophage] 1,000 mg PO BID-W/MEALS 02/07/18 01/30/22 Levothyroxine Sodium [Synthroid] 200 mcg PO DAILY 09/03/19 01/30/22 traZODone HCL 100 mg PO HS PRN 05/15/20 01/30/22 Magnesium Oxide [Mag-Ox] 400 mg PO DAILY 01/21/21 01/30/22 Albuterol Nebulized [Ventolin 2.5 mg INHALATION RT-Q6H PRN 10/19/21 01/30/22 Nebulized] Albuterol Sulfate [Albuterol 2 puff PO RT-Q6H PRN 10/19/21 01/30/22 Sulfate Hfa] Cholecalciferol [Vitamin D3 (25 25 mcg PO DAILY 10/19/21 01/30/22 Mcg = 1000 Iu)] Ferrous Sulfate [Iron (65 MG 325 mg PO Q48H 10/19/21 01/30/22 Elemental)] Pantoprazole Sodium [Protonix] 40 mg PO AC-BID 10/19/21 01/30/22 Metoprolol Succinate [Toprol XL] 25 mg PO DAILY 11/07/21 01/30/22 Citalopram Hydrobromide [CeleXA] 40 mg PO DAILY 01/30/22 01/30/22 Furosemide [Lasix] 40 mg PO DAILY 01/30/22 01/30/22 Previous Rx's Medication Instructions Recorded Atorvastatin [Lipitor] 40 mg PO DAILY #30 tab 09/10/18 HYDROcodone/APAP 7.5-325MG [[place] 1 tab PO Q6H PRN #12 tab 03/27/20 7.5-325] Budesonide-Formot 160-4.5 Mcg 2 puff INHALATION BID #10.2 gm 02/03/22 [Symbicort 160-4.5 Mcg Inhaler] Ipratropium-Albuterol Nebulize 3 ml INHALATION QID #120 ml 02/03/22 [Duoneb 0.5 mg-3 mg/3 ml Soln] predniSONE 0 mg PO DIRECTED #12 tab 02/03/22 Allergies Allergy/AdvReac Type Severity Reaction Status Date / Time adhesive Allergy Rash/Hives Verified 02/12/22 23:16 ciprofloxacin [From Cipro] Allergy Rash/Hives Verified 02/12/22 23:16 ciprofloxacin HCl Allergy Rash/Hives Verified 02/12/22 23:16 [From Cipro] latex Allergy Rash/Hives Verified 02/12/22 23:16 levofloxacin [From Levaquin] Allergy Rash/Hives Verified 02/12/22 23:16 nitrofurantoin Allergy Rash/Hives Verified 02/12/22 23:16 [From Macrobid] nitrofurantoin Allergy Rash/Hives Verified 02/12/22 23:16 macrocrystalline [From Macrobid] Penicillins Allergy Rash/Hives Verified 02/12/22 23:16 propoxyphene HCl Allergy Rash/Hives Verified 02/12/22 23:16 [From Darvon] propoxyphene napsylate Allergy Unknown Verified 02/12/22 23:16 [From Darvocet-N] sulfamethoxazole Allergy PIPPA Verified 02/12/22 23:16 [From Bactrim] trimethoprim [From Bactrim] Allergy PIPPA Verified 02/12/22 23:16 Review of Systems ROS Statement: Those systems with pertinent positive or pertinent negative responses have been documented in the HPI. ROS Other: All systems not noted in ROS Statement are negative. 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 glaucoma, chronic back pain and degenerative disk disease in the lumbar spine , nephrolithiasis, history of cellulitis in the legs and history of falls. The patient is also a recently quit smoker. History of Any Multi-Drug Resistant Organisms: VRE Date of last positivie culture/infection: 10/21/21 MDRO Source:: urine Past Surgical History: Appendectomy, Bowel Resection, Section, Cholecystectomy, Orthopedic Surgery, Tubal Ligation Additional Past Surgical History / Comment(s): LASER SX JETHRO EYES FOR GLAUCOMA. RT KNEE ARTHROSCOPY. UNDERWENT PERCUTANEOUS NEPHROSTOLITHOTOMY, colostomy Past Anesthesia/Blood Transfusion Reactions: No Reported Reaction Past Psychological History: Anxiety, Depression Smoking Status: Former smoker Past Alcohol Use History: None Reported Past Drug Use History: None Reported - Past Family History Mother Family Medical History: COPD Additional Family Medical History / Comment(s): emphysema, heart valve problems, in her sleep. Brother(s) Family Medical History: Cancer Additional Family Medical History / Comment(s): from oral cancer Father Brother(s) Family Medical History: Cancer Additional Family Medical History / Comment(s): heart disease General Exam Limitations: physical limitation (mobility limitations; oxygen-dependency) General appearance: alert, in no apparent distress, other (Well-developed, well- nourished, chronically ill female in no acute distress. Initial temperature 97.3, pulse 68, respirations 20, blood pressure 119/54, pulse ox 96% on 3 L.) Eye exam: Present: normal appearance. Absent: scleral icterus, conjunctival injection, periorbital swelling ENT exam: Present: normal oropharynx, mucous membranes moist Neck exam: Present: normal inspection. Absent: lymphadenopathy Respiratory exam: Present: normal lung sounds bilaterally, other (Oxygen via nasal cannula at 3 L). Absent: respiratory distress, wheezes, rales, rhonchi, stridor, chest wall tenderness Cardiovascular Exam: Present: regular rate, normal rhythm, normal heart sounds GI/Abdominal exam: Present: soft, normal bowel sounds, other (Colostomy present and intact with stool in collection bag). Absent: distended, tenderness, guarding, rebound, rigid Extremities exam: Present: tenderness (bilateral lower extremities are tender upon palpation which is baseline for patient.), normal capillary refill. Absent: pedal edema Back exam: Absent: CVA tenderness (R), CVA tenderness (L) Neurological exam: Present: alert, oriented X3 Psychiatric exam: Present: normal affect, normal mood Skin exam: Present: warm, dry, normal color Course Vital Signs 02/12/22 02/13/22 23:11 01:23 Temperature 97.3 F L Pulse Rate 68 97 Respiratory 20 18 Rate Blood Pressure 119/54 109/64 O2 Sat by Pulse 96 99 Oximetry - Reevaluation(s) Reevaluation #1: 02/13/22 01:46 Reviewed patient's previous admission records at length. Discussed admission process and plan of care. Patient is agreeable with this plan though does express her preference to receive a PICC line for IV antibiotics at home. 02/13/22 04:[address] Manzo who agrees to accept this admission. Medical Decision Making - Medical Decision Making This is a 71-year-old female with a past medical history of COPD, oxygen dependency, diabetes, hypertension, bowel resection, and rectovesical fistula who presents to the emergency department under the advisement of her PCP for hospital admission due to failed outpatient treatment of a UTI. Upon exam, patient is in no acute distress. She is afebrile with stable vital signs. She is tolerating oral intake without difficulty. Complains of persistent dysuria. Urinalysis is nitrite positive with large leukocyte esterase and blood. 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 Laboratory studies were reviewed. Patient is chronically anemic and mildly hyponatremic. Chronic kidney disease: BUN 65, creatinine 1.70, GFR 30. Given patient's recent hospital admission for COPD and CHF exacerbations, IV fluids were avoided. I did speak with Dr. Manzo who agrees to accept this admission. Attending: Yung. - Lab Data Result diagrams: 02/13/22 01:43 02/13/22 01:43 Lab Results 02/12/22 02/13/22 02/13/22 Range/Units 23:19 01:43 01:43 WBC 7.3 (3.8-10.6) k/uL RBC 3.72 L (3.80-5.40) m/uL Hgb 10.1 L (11.4-16.0) gm/dL Hct 35.6 (34.0-46.0) % MCV 95.7 (80.0-100.0) fL MCH 27.3 (25.0-35.0) pg MCHC 28.5 L (31.0-37.0) g/dL RDW 17.2 H (11.5-15.5) % Plt Count 287 (150-450) k/uL MPV 7.4 Neutrophils % 83 % Lymphocytes % 6 % Monocytes % 6 % Eosinophils % 2 % Basophils % 0 % Neutrophils # 6.1 (1.3-7.7) k/uL Lymphocytes # 0.4 L (1.0-4.8) k/uL Monocytes # 0.5 (0-1.0) k/uL Eosinophils # 0.2 (0-0.7) k/uL Basophils # 0.0 (0-0.2) k/uL Hypochromasia Marked Anisocytosis Slight Sodium 128 L (137-145) mmol/L Potassium 3.6 (3.5-5.1) mmol/L Chloride 98 (98-107) mmol/L Carbon Dioxide 21 L (22-30) mmol/L Anion Gap 9 mmol/L BUN 65 H (7-17) mg/dL Creatinine 1.70 H (0.52-1.04) mg/dL Est GFR (CKD-EPI)AfAm 34 (>60 ml/min/1.73 sqM) Est GFR (CKD-EPI)NonAf 30 (>60 ml/min/1.73 sqM) Glucose 180 H (74-99) mg/dL Plasma Lactic Acid Ravi (0.7-2.0) mmol/L Calcium 8.2 L (8.4-10.2) mg/dL Total Bilirubin 0.4 (0.2-1.3) mg/dL AST 25 (14-36) U/L ALT 38 H (4-34) U/L Alkaline Phosphatase 141 H (38-126) U/L Total Protein 5.9 L (6.3-8.2) g/dL Albumin 2.9 L (3.5-5.0) g/dL Urine Color Dark Brown Urine Appearance Turbid H (Clear) Urine pH 6.0 (5.0-8.0) Ur Specific [place] 1.015 (1.001-1.035) Urine Protein 3+ H (Negative) Urine Glucose (UA) Negative (Negative) Urine Ketones Negative (Negative) Urine Blood Large H (Negative) Urine Nitrite Positive H (Negative) Urine Bilirubin 1+ H (Negative) Urine Urobilinogen 2.0 (<2.0) mg/dL Ur Leukocyte Esterase Large H (Negative) Urine RBC >182 H (0-5) /hpf Urine WBC >182 H (0-5) /hpf Urine Bacteria Many H (None) /hpf Urine Mucus Occasional H (None) /hpf 02/13/22 Range/Units 01:43 WBC (3.8-10.6) k/uL RBC (3.80-5.40) m/uL Hgb (11.4-16.0) gm/dL Hct (34.0-46.0) % MCV (80.0-100.0) fL MCH (25.0-35.0) pg MCHC (31.0-37.0) g/dL RDW (11.5-15.5) % Plt Count (150-450) k/uL MPV Neutrophils % % Lymphocytes % % Monocytes % % Eosinophils % % Basophils % % Neutrophils # (1.3-7.7) k/uL Lymphocytes # (1.0-4.8) k/uL Monocytes # (0-1.0) k/uL Eosinophils # (0-0.7) k/uL Basophils # (0-0.2) k/uL Hypochromasia Anisocytosis Sodium (137-145) mmol/L Potassium (3.5-5.1) mmol/L Chloride (98-107) mmol/L Carbon Dioxide (22-30) mmol/L Anion Gap mmol/L BUN (7-17) mg/dL Creatinine (0.52-1.04) mg/dL Est GFR (CKD-EPI)AfAm (>60 ml/min/1.73 sqM) Est GFR (CKD-EPI)NonAf (>60 ml/min/1.73 sqM) Glucose (74-99) mg/dL Plasma Lactic Acid Ravi 1.8 (0.7-2.0) mmol/L Calcium (8.4-10.2) mg/dL Total Bilirubin (0.2-1.3) mg/dL AST (14-36) U/L ALT (4-34) U/L Alkaline Phosphatase (38-126) U/L Total Protein (6.3-8.2) g/dL Albumin (3.5-5.0) g/dL Urine Color Urine Appearance (Clear) Urine pH (5.0-8.0) Ur Specific [place] (1.001-1.035) Urine Protein (Negative) Urine Glucose (UA) (Negative) Urine Ketones (Negative) Urine Blood (Negative) Urine Nitrite (Negative) Urine Bilirubin (Negative) Urine Urobilinogen (<2.0) mg/dL Ur Leukocyte Esterase (Negative) Urine RBC (0-5) /hpf Urine WBC (0-5) /hpf Urine Bacteria (None) /hpf Urine Mucus (None) /hpf Disposition Clinical Impression: UTI (urinary tract infection), Chronic kidney disease, Failure of outpatient treatment, Hyponatremia Disposition: ADMITTED IP TO THIS HOSP Condition: Serious Referrals: Po [facility] NPC [Primary Care Provider] - 1-2 days Decision Date: 02/13/22 Decision Time: 03:08
[2022-02-13 02:28] LABS: Albumin 2.9 g/dL (3.5-5.0); Calcium 8.2 mg/dL (8.4-10.2); Potassium 3.6 mmol/L (3.5-5.1); Total Bilirubin 0.4 mg/dL (0.2-1.3); Total Protein 5.9 g/dL (6.3-8.2)
[2022-02-13] MEDS ORDERED: PHENAZOPYRIDINE 100 MG TAB PO STA ×2 (02:34→02:52)
[2022-02-13] MEDS ORDERED: NALOXONE 0.4 MG/ML 1 ML VIAL IV PRN (04:33)
[2022-02-13] MEDS ORDERED: ACETAMINOPHEN TAB 325 MG TAB PO PRN (04:33)
[2022-02-13] MEDS ORDERED: ONDANSETRON 4 MG/2 ML VIAL IVP PRN (04:33)
[2022-02-13] MEDS: LEVOTHYROXINE 100 MCG TAB PO SCH (06:26)
[2022-02-13 07:49] LABS: Glucose,Whole Blood 181 mg/dL (70-110)
[2022-02-13] MEDS: SYMBICORT 160-4.5 MCG INHALER INHALATION SCH ×2 (07:49→20:45)
--- NOTE | 2022-02-13 08:41 | P.HPIM ---
History of Present Illness H&P Date: 02/13/22 71 years old female who presented to the emergency department for treatment for urinary tract infection. Apparently she was diagnosed with urinary tract infection as an outpatient and was started on oral antibiotics by primary care physician, patient was called by the primary care physician office and she was told that her urine culture is growing bacteria that is not treatable with oral antibiotics and she needs to go to emergency department for treatment with IV antibiotic. 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 Patient was seen in emergency department and was started on IV daptomycin otherwise patient remains stable vital signs stable she is clinically stable, Hospital medicine was consulted for admission to hospital and further care with a plan for infection disease evaluation Physical examination General: non toxic, no acute distress, alert oriented to time place and person Head: atraumatic, normocephalic, symmetric Eyes: no lid lesion], anicteric sclera Mouth: no lip lesion, mucus membranes moist Cardiovascular: S1S2 reg rate and rhythm, no murmur, no gallop Lungs: Bilateral equal air entry, no wheezing no rhonchi no crackles. Abdominal: soft, nondistended, colostomy in place Ext: no gross muscle atrophy, no edema extremities warm to suppose a positive Neuro: Alert oriented to time place and person, exam grossly nonfocal Psych: Mood and affect appropriate, patient not so certain Skin exam: No rashes no jaundice. Assessment and plan Acute urinary tract infection History of VRE, we'll start patient on daptomycin, we'll continue Monitor and follow urine culture Infection disease consulted Acute kidney injury Likely prerenal component, hold nephrotoxin Hold home Lasix, resume as able Monitor renal function daily Hyponatremia Likely in the setting of dehydration Carefully hydrate watch for fluid overload Monitor renal function in sodium levels daily History of chronic diastolic congestive heart failure documented EF 50-55% per last discharge summary Dosnt seem to be in exacerbation / no evidence of fluid overload Holding Lasix for now in the setting of above Watch for fluid overload next line resume oral Lasix as soon as possible Chronic respiratory failure due to COPD On 4 L of oxygen at home Currently at baseline requirement for oxygen History of diabetes Hold oral hypoglycemic Continues on sliding scale History of anxiety and depression Continue Celexa History of hypothyroidism Continue levothyroxine History of hypertension Continue metoprolol History of GERD Continue Protonix CODE STATUS: Full code DVT prophylaxis: Subcu heparin Disposition plan: Back to home once clinically stable to be determined Review of Systems 14 point review of system was done in detail and is negative except as above in HPI. 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 glaucoma, chronic back pain and degenerative disk disease in the lumbar spine , nephrolithiasis, history of cellulitis in the legs and history of falls. The patient is also a recently quit smoker. History of Any Multi-Drug Resistant Organisms: VRE Date of last positivie culture/infection: 10/21/21 MDRO Source:: urine Past Surgical History: Appendectomy, Bowel Resection, Section, Cholecystectomy, Orthopedic Surgery, Tubal Ligation Additional Past Surgical History / Comment(s): LASER SX JETHRO EYES FOR GLAUCOMA. RT KNEE ARTHROSCOPY. UNDERWENT PERCUTANEOUS NEPHROSTOLITHOTOMY, colostomy Past Anesthesia/Blood Transfusion Reactions: No Reported Reaction Past Psychological History: Anxiety, Depression Additional Psychological History / Comment(s): Pt resides with her spouse. She is mostly in a wheelchair. She has home oxygen, nebulizer and glucometer. and lives with adult son. 2 adult children. 2 dogs and 1 cat in the home, but denied alcohol use or recreational drug use. Does not work outside of the home. No experience. No travel history Smoking Status: Former smoker Past Alcohol Use History: None Reported Additional Past Alcohol Use History / Comment(s): Pt started smoking in 1968 and quit in 2019cats in the home. No service and no travel history. Past Drug Use History: None Reported - Past Family History Mother Family Medical History: COPD Additional Family Medical History / Comment(s): emphysema, heart valve problems, in her sleep. Brother(s) Family Medical History: Cancer Additional Family Medical History / Comment(s): from oral cancer Father Brother(s) Family Medical History: Cancer Additional Family Medical History / Comment(s): heart disease Medications and Allergies Home Medications Medication Instructions Recorded Confirmed Type ARIPiprazole [Abilify] 5 mg PO HS 02/07/18 02/13/22 History metFORMIN HCL [Glucophage] 1,000 mg PO BID-W/MEALS 02/07/18 02/13/22 History Atorvastatin [Lipitor] 40 mg PO DAILY #30 tab 09/10/18 02/13/22 Rx Levothyroxine Sodium [Synthroid] 200 mcg PO DAILY 09/03/19 02/13/22 History HYDROcodone/APAP 7.5-325MG [[place] 1 tab PO Q6H PRN #12 tab 03/27/20 02/13/22 Rx 7.5-325] traZODone HCL 100 mg PO HS PRN 05/15/20 02/13/22 History Magnesium Oxide [Mag-Ox] 400 mg PO DAILY 01/21/21 02/13/22 History Albuterol Nebulized [Ventolin 2.5 mg INHALATION RT-Q6H PRN 10/19/21 02/13/22 History Nebulized] Albuterol Sulfate [Albuterol 2 puff PO RT-Q6H PRN 10/19/21 02/13/22 History Sulfate Hfa] Cholecalciferol [Vitamin D3 (25 25 mcg PO DAILY 10/19/21 02/13/22 History Mcg = 1000 Iu)] Ferrous Sulfate [Iron (65 MG 325 mg PO Q48H 10/19/21 02/13/22 History Elemental)] Pantoprazole Sodium [Protonix] 40 mg PO AC-BID 10/19/21 02/13/22 History Metoprolol Succinate [Toprol XL] 25 mg PO DAILY 11/07/21 02/13/22 History Citalopram Hydrobromide [CeleXA] 40 mg PO DAILY 01/30/22 02/13/22 History Furosemide [Lasix] 40 mg PO DAILY 01/30/22 02/13/22 History Budesonide-Formot 160-4.5 Mcg 2 puff INHALATION RT-BID 02/13/22 02/13/22 History [Symbicort 160-4.5 Mcg Inhaler] Ipratropium-Albuterol Nebulize 3 ml INHALATION RT-QID 02/13/22 02/13/22 History [Duoneb 0.5 mg-3 mg/3 ml Soln] allopurinoL [Zyloprim] 100 mg PO DAILY 02/13/22 02/13/22 History Allergies Allergy/AdvReac Type Severity Reaction Status Date / Time adhesive Allergy Rash/Hives Verified 02/13/22 07:47 ciprofloxacin [From Cipro] Allergy Rash/Hives Verified 02/13/22 07:47 ciprofloxacin HCl Allergy Rash/Hives Verified 02/13/22 07:47 [From Cipro] latex Allergy Rash/Hives Verified 02/13/22 07:47 levofloxacin [From Levaquin] Allergy Rash/Hives Verified 02/13/22 07:47 nitrofurantoin Allergy Rash/Hives Verified 02/13/22 07:47 [From Macrobid] nitrofurantoin Allergy Rash/Hives Verified 02/13/22 07:47 macrocrystalline [From Macrobid] Penicillins Allergy Rash/Hives Verified 02/13/22 07:47 propoxyphene HCl Allergy Rash/Hives Verified 02/13/22 07:47 [From Darvon] propoxyphene napsylate Allergy Unknown Verified 02/13/22 07:47 [From Darvocet-N] sulfamethoxazole Allergy PIPPA Verified 02/13/22 07:47 [From Bactrim] trimethoprim [From Bactrim] Allergy PIPPA Verified 02/13/22 07:47 Physical Exam Vitals: Vital Signs Temp Pulse Pulse Resp BP BP Pulse Ox 02/13/22 08:00 98.2 F 76 19 137/61 91 L 02/13/22 05:26 82 20 135/67 94 L 02/13/22 01:23 97 18 109/64 99 02/12/22 23:11 97.3 F L 68 20 119/54 96 Intake and Output 02/12/22 02/13/22 02/13/22 22:59 06:59 14:59 Other: Voiding Method External Catheter Weight 74.843 kg Results CBC & Chem 7: 02/13/22 01:43 02/13/22 01:43 Labs: Abnormal Lab Results - Last 24 Hours (Table) 02/12/22 02/13/22 02/13/22 Range/Units 23:19 01:43 01:43 RBC 3.72 L (3.80-5.40) m/uL Hgb 10.1 L (11.4-16.0) gm/dL MCHC 28.5 L (31.0-37.0) g/dL RDW 17.2 H (11.5-15.5) % Lymphocytes # 0.4 L (1.0-4.8) k/uL Sodium 128 L (137-145) mmol/L Carbon Dioxide 21 L (22-30) mmol/L BUN 65 H (7-17) mg/dL Creatinine 1.70 H (0.52-1.04) mg/dL Glucose 180 H (74-99) mg/dL POC Glucose (mg/dL) (70-110) mg/dL Calcium 8.2 L (8.4-10.2) mg/dL ALT 38 H (4-34) U/L Alkaline Phosphatase 141 H (38-126) U/L Total Protein 5.9 L (6.3-8.2) g/dL Albumin 2.9 L (3.5-5.0) g/dL Urine Appearance Turbid H (Clear) Urine Protein 3+ H (Negative) Urine Blood Large H (Negative) Urine Nitrite Positive H (Negative) Urine Bilirubin 1+ H (Negative) Ur Leukocyte Esterase Large H (Negative) Urine RBC >182 H (0-5) /hpf Urine WBC >182 H (0-5) /hpf Urine Bacteria Many H (None) /hpf Urine Mucus Occasional H (None) /hpf 02/13/22 Range/Units 07:32 RBC (3.80-5.40) m/uL Hgb (11.4-16.0) gm/dL MCHC (31.0-37.0) g/dL RDW (11.5-15.5) % Lymphocytes # (1.0-4.8) k/uL Sodium (137-145) mmol/L Carbon Dioxide (22-30) mmol/L BUN (7-17) mg/dL Creatinine (0.52-1.04) mg/dL Glucose (74-99) mg/dL POC Glucose (mg/dL) 181 H (70-110) mg/dL Calcium (8.4-10.2) mg/dL ALT (4-34) U/L Alkaline Phosphatase (38-126) U/L Total Protein (6.3-8.2) g/dL Albumin (3.5-5.0) g/dL Urine Appearance (Clear) Urine Protein (Negative) Urine Blood (Negative) Urine Nitrite (Negative) Urine Bilirubin (Negative) Ur Leukocyte Esterase (Negative) Urine RBC (0-5) /hpf Urine WBC (0-5) /hpf Urine Bacteria (None) /hpf Urine Mucus (None) /hpf Thrombosis Risk Factor Assmnt - Choose All That Apply Each Factor Represents 1 point: Obesity (BMI >25) Each Risk Factor Represents 2 Points: Age 61-74 years Thrombosis Risk Factor Assessment Total Risk Factor Score: 3 Thrombosis Risk Factor Assessment Level: Moderate Risk
[2022-02-13] MEDS ORDERED: FUROSEMIDE 40 MG TAB PO SCH (09:00)
[2022-02-13] MEDS: PANTOPRAZOLE 40 MG TABLET PO SCH ×2 (09:05→16:48)
[2022-02-13] MEDS: MAGNESIUM OXIDE 400 MG TAB PO SCH (09:05)
[2022-02-13] MEDS: CITALOPRAM HYDROBROMIDE 20 MG TAB PO SCH (09:06)
[2022-02-13] MEDS: metFORMIN 500 MG TAB PO SCH ×2 (09:06→16:47)
[2022-02-13] MEDS: METOPROLOL SUCCINATE (ER) 25 MG TAB.ER.24H PO SCH (09:06)
[2022-02-13] MEDS: PHENAZOPYRIDINE 100 MG TAB PO SCH ×3 (09:26→20:50)
[2022-02-13 11:34] LABS: Glucose,Whole Blood 197 mg/dL (70-110)
[2022-02-13] MEDS: HYDROmorphone 0.5 MG/0.5 ML SYRINGE IVP PRN ×2 (14:20→18:10)
[2022-02-13] MEDS ORDERED: CEFEPIME 2 GM in SODIUM CHLORIDE 0.9% 100 ML IVPB SCH (15:23)
[2022-02-13] MEDS: CEFEPIME 1 GM in SODIUM CHLORIDE 0.9% 50 ML IVPB SCH (15:39)
[2022-02-13 16:24] LABS: Glucose,Whole Blood 209 mg/dL (70-110)
[2022-02-13] MEDS: INSULIN ASPART (NovoLOG) 100 UNIT/ML VIAL SQ SCH (20:45)
[2022-02-13] MEDS: ALBUTEROL NEBULIZED 2.5 MG/3 ML INHALATION PRN (20:46)
[2022-02-13 20:47] LABS: Glucose,Whole Blood 135 mg/dL (70-110)
--- NOTE | 2022-02-13 23:03 | P.CONS ---
History of Present Illness - Reason for Consult Consult date: 02/13/22 - History of Present Illness Patient is a 71-year-old female with a past medical history significant for rectovesicular fistula status post diverting colostomy also with a history of swaths abscess hypertension hyperlipidemia and a history of recurrent urinary tract infection patient is presenting to the hospital early this morning for need for IV antibiotic therapy per direction of her primary care physician in this patient has been treated with the Bactrim at home symptom has been going on for few days before presentation to hospital has been lower abdominal pain urinary burning consulted urine and no hematuria did have some chills but no high-grade fever on presentation to the hospital the patient was afebrile no fever have recorded subsequently patient did have a normal white count BUN and creatinine has been elevated patient did have a positive UA last urine culture done on 10/22/2019 was positive for VRE and Della patient did receive a dose of daptomycin in the ER infectious disease was consulted for further management of antibiotic therapy Past Medical History Past Medical History: Asthma, Chest Pain / Angina, COPD, Diabetes Mellitus, Hyperlipidemia, Hypertension, Osteoarthritis (OA), Respiratory Disorder, Skin Disorder, Thyroid Disorder Additional Past Medical History / Comment(s): 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 glaucoma, chronic back pain and degenerative disk disease in the lumbar spine , nephrolithiasis, history of cellulitis in the legs and history of falls. The patient is also a recently quit smoker. 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 RT KNEE ARTHROSCOPY. UNDERWENT PERCUTANEOUS NEPHROSTOLITHOTOMY, colostomy Past Anesthesia/Blood Transfusion Reactions: No Reported Reaction Past Psychological History: Anxiety, Depression Additional Psychological History / Comment(s): Pt resides with her spouse. She is mostly in a wheelchair. She has home oxygen, nebulizer and glucometer. and lives with adult son. 2 adult children. 2 dogs and 1 cat in the home, but denied alcohol use or recreational drug use. Does not work outside of the home. No experience. No travel history Smoking Status: Former smoker Past Alcohol Use History: None Reported Additional Past Alcohol Use History / Comment(s): Pt started smoking in 1968 and quit in 2020cats in the home. No service and no travel history. Past Drug Use History: None Reported - Past Family History Mother Family Medical History: COPD Additional Family Medical History / Comment(s): emphysema, heart valve problems, in her sleep. Brother(s) Family Medical History: Cancer Additional Family Medical History / Comment(s): from oral cancer Father Brother(s) Family Medical History: Cancer Additional Family Medical History / Comment(s): heart disease Medications and Allergies Home Medications Medication Instructions Recorded Confirmed Type ARIPiprazole [Abilify] 5 mg PO HS 02/07/18 02/13/22 History metFORMIN HCL [Glucophage] 1,000 mg PO BID-W/MEALS 02/07/18 02/13/22 History Atorvastatin [Lipitor] 40 mg PO DAILY #30 tab 09/10/18 02/13/22 Rx Levothyroxine Sodium [Synthroid] 200 mcg PO DAILY 09/03/19 02/13/22 History HYDROcodone/APAP 7.5-325MG [[place] 1 tab PO Q6H PRN #12 tab 03/27/20 02/13/22 Rx 7.5-325] traZODone HCL 100 mg PO HS PRN 05/15/20 02/13/22 History Magnesium Oxide [Mag-Ox] 400 mg PO DAILY 01/21/21 02/13/22 History Albuterol Nebulized [Ventolin 2.5 mg INHALATION RT-Q6H PRN 10/19/21 02/13/22 History Nebulized] Albuterol Sulfate [Albuterol 2 puff PO RT-Q6H PRN 10/19/21 02/13/22 History Sulfate Hfa] Cholecalciferol [Vitamin D3 (25 25 mcg PO DAILY 10/19/21 02/13/22 History Mcg = 1000 Iu)] Ferrous Sulfate [Iron (65 MG 325 mg PO Q48H 10/19/21 02/13/22 History Elemental)] Pantoprazole Sodium [Protonix] 40 mg PO AC-BID 10/19/21 02/13/22 History Metoprolol Succinate [Toprol XL] 25 mg PO DAILY 11/07/21 02/13/22 History Citalopram Hydrobromide [CeleXA] 40 mg PO DAILY 01/30/22 02/13/22 History Furosemide [Lasix] 40 mg PO DAILY 01/30/22 02/13/22 History Budesonide-Formot 160-4.5 Mcg 2 puff INHALATION RT-BID 02/13/22 02/13/22 History [Symbicort 160-4.5 Mcg Inhaler] Ipratropium-Albuterol Nebulize 3 ml INHALATION RT-QID 02/13/22 02/13/22 History [Duoneb 0.5 mg-3 mg/3 ml Soln] allopurinoL [Zyloprim] 100 mg PO DAILY 02/13/22 02/13/22 History Allergies Allergy/AdvReac Type Severity Reaction Status Date / Time adhesive Allergy Rash/Hives Verified 02/13/22 07:47 ciprofloxacin [From Cipro] Allergy Rash/Hives Verified 02/13/22 07:47 ciprofloxacin HCl Allergy Rash/Hives Verified 02/13/22 07:47 [From Cipro] latex Allergy Rash/Hives Verified 02/13/22 07:47 levofloxacin [From Levaquin] Allergy Rash/Hives Verified 02/13/22 07:47 nitrofurantoin Allergy Rash/Hives Verified 02/13/22 07:47 [From Macrobid] nitrofurantoin Allergy Rash/Hives Verified 02/13/22 07:47 macrocrystalline [From Macrobid] Penicillins Allergy Rash/Hives Verified 02/13/22 07:47 propoxyphene HCl Allergy Rash/Hives Verified 02/13/22 07:47 [From Darvon] propoxyphene napsylate Allergy Unknown Verified 02/13/22 07:47 [From Darvocet-N] sulfamethoxazole Allergy PIPPA Verified 02/13/22 07:47 [From Bactrim] trimethoprim [From Bactrim] Allergy PIPPA Verified 02/13/22 07:47 Physical Exam Vitals: Vital Signs Temp Pulse Pulse Resp BP BP Pulse Ox 02/13/22 08:00 98.2 F 76 19 137/61 91 L 02/13/22 05:26 82 20 135/67 94 L 02/13/22 01:23 97 18 109/64 99 02/12/22 23:11 97.3 F L 68 20 119/54 96 Intake and Output 02/12/22 02/13/22 02/13/22 22:59 06:59 14:59 Other: Voiding Method External Catheter # Voids 1 Weight 74.843 kg Results CBC & Chem 7: 02/13/22 01:43 02/13/22 01:43 Labs: Abnormal Lab Results - Last 24 Hours (Table) 02/12/22 02/13/22 02/13/22 Range/Units 23:19 01:43 01:43 RBC 3.72 L (3.80-5.40) m/uL Hgb 10.1 L (11.4-16.0) gm/dL MCHC 28.5 L (31.0-37.0) g/dL RDW 17.2 H (11.5-15.5) % Lymphocytes # 0.4 L (1.0-4.8) k/uL Sodium 128 L (137-145) mmol/L Carbon Dioxide 21 L (22-30) mmol/L BUN 65 H (7-17) mg/dL Creatinine 1.70 H (0.52-1.04) mg/dL Glucose 180 H (74-99) mg/dL POC Glucose (mg/dL) (70-110) mg/dL Calcium 8.2 L (8.4-10.2) mg/dL ALT 38 H (4-34) U/L Alkaline Phosphatase 141 H (38-126) U/L Total Protein 5.9 L (6.3-8.2) g/dL Albumin 2.9 L (3.5-5.0) g/dL Urine Appearance Turbid H (Clear) Urine Protein 3+ H (Negative) Urine Blood Large H (Negative) Urine Nitrite Positive H (Negative) Urine Bilirubin 1+ H (Negative) Ur Leukocyte Esterase Large H (Negative) Urine RBC >182 H (0-5) /hpf Urine WBC >182 H (0-5) /hpf Urine Bacteria Many H (None) /hpf Urine Mucus Occasional H (None) /hpf 02/13/22 02/13/22 Range/Units 07:32 11:33 RBC (3.80-5.40) m/uL Hgb (11.4-16.0) gm/dL MCHC (31.0-37.0) g/dL RDW (11.5-15.5) % Lymphocytes # (1.0-4.8) k/uL Sodium (137-145) mmol/L Carbon Dioxide (22-30) mmol/L BUN (7-17) mg/dL Creatinine (0.52-1.04) mg/dL Glucose (74-99) mg/dL POC Glucose (mg/dL) 181 H 197 H (70-110) mg/dL Calcium (8.4-10.2) mg/dL ALT (4-34) U/L Alkaline Phosphatase (38-126) U/L Total Protein (6.3-8.2) g/dL Albumin (3.5-5.0) g/dL Urine Appearance (Clear) Urine Protein (Negative) Urine Blood (Negative) Urine Nitrite (Negative) Urine Bilirubin (Negative) Ur Leukocyte Esterase (Negative) Urine RBC (0-5) /hpf Urine WBC (0-5) /hpf Urine Bacteria (None) /hpf Urine Mucus (None) /hpf Microbiology - Last 24 Hours (Table) 02/12/22 23:19 Urine Culture - Preliminary Urine,Voided Assessment and Plan Plan: 1patient presented to hospital with urinary burning's lower abdominal pain significantly positive UA concerning for a symptomatic UTI failing outpatient oral antibiotic therapy will need to call for the resistant gram-positive as well as gram-negative likely source of this UTI as the patient did have history of recurrent UTI and has been exposed to multiple antibiotic. 2patient also have a rectovesicular fistula could be contributing to these recurrent urinary tract infection. 3we will start the patient on daptomycin 4 mg/kg along with cefepime 2 g every 12 hours while waiting for the culture to finalize. 4gentle IV fluid We will follow on clinical condition and cultures to further adjust medication if needed Thank you for this consultation will follow this patient along with you
[2022-02-14] MEDS: ARIPiprazole 5 MG TAB PO SCH ×2 (00:07→22:22)
[2022-02-14] MEDS: traZODone HCL 100 MG TAB PO PRN ×2 (00:07→22:22)
[2022-02-14] MEDS: CEFEPIME 1 GM in SODIUM CHLORIDE 0.9% 50 ML IVPB SCH ×2 (04:46→15:23)
[2022-02-14] MEDS: LEVOTHYROXINE 100 MCG TAB PO SCH (05:56)
[2022-02-14 07:08] LABS: Glucose,Whole Blood 140 mg/dL (70-110)
[2022-02-14] MEDS: ALBUTEROL NEBULIZED 2.5 MG/3 ML INHALATION PRN (08:08)
[2022-02-14] MEDS: SYMBICORT 160-4.5 MCG INHALER INHALATION SCH ×2 (08:08→20:37)
--- NOTE | 2022-02-14 08:46 | CDI ---
Documentation Clarification Form Date: 02/14/2022 08:35:45 AM From: Melina Elizalde CCS, CCDS Admit Date: 02/13/2022 04:28:00 AM Patient Name: Ban Estrada Visit Number: [id number] Discharge Date: ATTENTION: The Clinical Documentation Specialists (CDI) and [facility] Coding Staff appreciate your assistance in clarifying documentation. Please respond to the clarification below the line at the bottom and electronically sign. The CDI & [facility] Coding staff will review the response and follow-up if needed. Please note: Queries are made part of the Legal Health Record. If you have any questions, please contact the author of this message via ITS. Dr. Yash Anderson: Chronic Kidney Disease is documented in the 02/13 ED Note without further specification of the stage of CKD. Additional clarification regarding the stage of CKD is requested. History/Risk Factors per the 02/13 H/P: Asthma, Angina, DM, Hyperlipidemia, Hypertension, Osteoarthritis, Skin Cancer, Glaucoma, Chronic back pain, DDD lumbar spine, Nephrolithiasis, VRE Urine, former smoker. Clinical Indicators: Presented to the ED on 02/13, directed to ED by PCP for initiation of IV antibiotics for a UTI, has been on Bactrim at home. History of Rectovesical fistula, hospitalized in October for UTI with positive culture, ongoing symptoms. Admit with UTI, Chronic Kidney Disease, Failed Outpatient treatment & Hyponatremia. LAB: 02/13 BUN: 65, Creatinine 1.70 02/13 GFR: 30 Historical GFR: 08/07/2017: >60 Treatment 02/13: Blood glucose monitoring, Hypoglycemia Protocol, Insulin sliding scale, O2 2Lnc, IV Daptomycin 250 mg in Na Chl 50 mls @ 100 mls/hr x1, IV dilaudid 0.5 mg q3H/prn, IV Zofran 4 mg q8H/prn, INH Ventolin 2.5 mg q6H/prn, INH Symbicort 2 puffs BID, po Lasix 40 mg Daily, po Mag-Ox 400 mg Daily, po Toprol 25 mg Daily, IV Cefepime 100 mls @ 50 mls @ 12.5 mls/hr q12H Nephrology is not consulted. Please clarify the stage of the CKD, if known: [ ] CKD Stage 2 (GFR 60-89) [ ] CKD Stage 3 (GFR 30-59) [ ] CKD Stage 3b (GFR 30-44) [ ] CKD ruled out [ ] Other, please specify [ ] Unable to determine (Template Last revised: September 2020) 02/15 Query response documented in 02/14 Attending Physician Progress Note by Dr. Iqbal: CKD stage III (CDS: JUANA) ARPITAD
[2022-02-14] MEDS: INSULIN ASPART (NovoLOG) 100 UNIT/ML VIAL SQ SCH ×4 (08:53→20:43)
[2022-02-14] MEDS: PHENAZOPYRIDINE 100 MG TAB PO SCH ×3 (08:54→21:11)
[2022-02-14] MEDS: METOPROLOL SUCCINATE (ER) 25 MG TAB.ER.24H PO SCH (08:54)
[2022-02-14] MEDS: CITALOPRAM HYDROBROMIDE 20 MG TAB PO SCH (08:54)
[2022-02-14] MEDS: PANTOPRAZOLE 40 MG TABLET PO SCH ×2 (08:54→17:22)
[2022-02-14] MEDS: MAGNESIUM OXIDE 400 MG TAB PO SCH (08:54)
[2022-02-14] MEDS: HYDROmorphone 0.5 MG/0.5 ML SYRINGE IVP PRN ×4 (10:55→22:28)
[2022-02-14 11:39] LABS: Glucose,Whole Blood 221 mg/dL (70-110)
[2022-02-14 12:06] LABS: Anisocytosis Slight; Basophils % (A) 0 %; Eosinophils # (A) 0.1 k/uL (0-0.7); Eosinophils % (A) 1 %; HCT 26.2 % (34.0-46.0); Hypochromasia Marked; Lymphocytes # (A) 0.4 k/uL (1.0-4.8); Lymphocytes % (A) 7 %; MCH 27.4 pg (25.0-35.0); MCV 97.7 fL (80.0-100.0); Macrocytosis Slight; Mean Platelet Volume 7.6; Monocytes # (A) 0.6 k/uL (0-1.0); Monocytes % (A) 10 %; Neutrophils # (A) 4.5 k/uL (1.3-7.7); Neutrophils % (A) 78 %; Platelet Count 377 k/uL (150-450); RBC 2.68 m/uL (3.80-5.40); RDW 16.7 % (11.5-15.5); WBC 5.8 k/uL (3.8-10.6)
[2022-02-14 12:08] LABS: HGB 7.3 gm/dL (11.4-16.0)
[2022-02-14 12:18] LABS: ALT 29 U/L (4-34); AST 22 U/L (14-36); African American GFR (CKD) 45 (>60 ml/min/1.73 sqM); Albumin 2.7 g/dL (3.5-5.0); Albumin/Globulin Ratio 0.9; Alkaline Phosphatase 137 U/L (38-126); Anion Gap 6 mmol/L; Blood Urea Nitrogen 40 mg/dL (7-17); Calcium 8.4 mg/dL (8.4-10.2); Carbon Dioxide 22 mmol/L (22-30); Chloride 106 mmol/L (98-107); Glucose 181 mg/dL (74-99); Non-African American GFR(CKD) 39 (>60 ml/min/1.73 sqM); Potassium 3.5 mmol/L (3.5-5.1); Sodium 134 mmol/L (137-145); Total Bilirubin 0.4 mg/dL (0.2-1.3); Total Protein 5.7 g/dL (6.3-8.2)
[2022-02-14 12:45] LABS: C Reactive Protein 15.9 mg/dL (<1.0)
--- NOTE | 2022-02-14 13:46 | US ---
EXAMINATION TYPE: US kidneys/renal and bladder DATE OF EXAM: 02/14/2022 COMPARISON: CT 01/2022, US 01/2021 CLINICAL HISTORY: JAVON. JAVON, UTI EXAM MEASUREMENTS: Right Kidney: 13.0 x 6.5 x 5.3 cm Left Kidney: 12.8 x 7.6 x 6.6 cm Right Kidney: No hydronephrosis or masses seen, CORTICAL THINNING NOTED, UNKNOWN HYPOECHOIC AREA NOTE D IN MID POLE KELSIE. 3.6cm Left Kidney: Obscured by overlying bowel gas CORTICAL THINNING NOTED Bladder: wnl Bilateral Jets seen: No LEFT KIDNEY VERY LIMITED DUE TO PATIENT'S BODY HABITUS, LOW PAIN TOLERANCE AND OVERLYING BOWEL GAS IMPRESSION: Bilateral renal cortical thinning with prominent renal hilar fat, possibly age related. Recommend cor relation with renal function tests. Questionable hypoechoic area at the midportion of the right kidne y measuring 3.6 cm, possibly artifactual. No obvious hydronephrosis bilaterally. Limited assessment o f the left kidney as described above. The urinary bladder is not completely distended.
--- NOTE | 2022-02-14 14:52 | P.PN ---
Subjective Progress Note Date: 02/14/22 71 years old female who presented to the emergency department for treatment for urinary tract infection. Apparently she was diagnosed with urinary tract infection as an outpatient and was started on oral antibiotics by primary care physician, patient was called by the primary care physician office and she was told that her urine culture is growing bacteria that is not treatable with oral antibiotics and she needs to go to emergency department for treatment with IV antibiotic. 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 Patient was seen in emergency department and was started on IV daptomycin otherwise patient remains stable vital signs stable she is clinically stable, Hospital medicine was consulted for admission to hospital and further care with a plan for infection disease evaluation Interval history: Patient was seen and examined at the bedside. She is alert oriented 3. She reports improvement in her symptoms overnight with antibiotics Physical examination General: non toxic, no acute distress, alert oriented to time place and person Head: atraumatic, normocephalic, symmetric Eyes: no lid lesion], anicteric sclera Mouth: no lip lesion, mucus membranes moist Cardiovascular: S1S2 reg rate and rhythm, no murmur, no gallop Lungs: Bilateral equal air entry, no wheezing no rhonchi no crackles. Abdominal: soft, nondistended, colostomy in place Ext: no gross muscle atrophy, no edema extremities warm to suppose a positive Neuro: Alert oriented to time place and person, exam grossly nonfocal Psych: Mood and affect appropriate, patient not so certain Skin exam: No rashes no jaundice. Assessment and plan: Gram-negative bacilli UTI with sepsis History of VRE ID recommended daptomycin and cefepime Monitor and follow urine culture Infection disease consulted Acute kidney injury Improving with fluids Likely prerenal component, hold nephrotoxin Hold home Lasix, resume as able Renal ultrasound without hydronephrosis Monitor renal function daily Stage III chronic kidney disease Hyponatremia Likely in the setting of dehydration Carefully hydrate watch for fluid overload Monitor renal function in sodium levels daily History of chronic diastolic congestive heart failure documented EF 50-55% per last discharge summary Dosnt seem to be in exacerbation / no evidence of fluid overload Holding Lasix for now in the setting of above Watch for fluid overload next line resume oral Lasix as soon as possible Chronic respiratory failure due to COPD On 4 L of oxygen at home Currently at baseline requirement for oxygen Type 2 diabetes mellitus And metformin at home Check A1c Hold oral hypoglycemic Continues on sliding scale Chronic normocytic anemia -Anemia workup including iron studies B12 folate and stool for occult blood -Consult hematology History of anxiety and depression Continue Celexa History of hypothyroidism Continue levothyroxine History of hypertension Continue metoprolol History of GERD Continue Protonix CODE STATUS: Full code DVT prophylaxis: Subcu heparin Disposition plan: Back to home once clinically stable to be determin Objective - Vital Signs Vital signs: Vital Signs Temp 99.2 F 02/14/22 08:00 Pulse 78 02/14/22 08:18 Resp 18 02/14/22 08:00 BP 138/63 02/14/22 08:00 Pulse Ox 93 L 02/14/22 08:09 FiO2 Intake & Output 02/13/22 02/14/22 02/14/22 18:59 06:59 18:59 Intake Total 200 Output Total 1480 1130 150 Balance -1480 -930 -150 Intake: Oral 200 Output: Urine 700 600 150 Stool 780 530 Other: Voiding Method External Catheter External Catheter # Voids 2 2 - Labs CBC & Chem 7: 02/14/22 11:21 02/14/22 11:21 Labs: Abnormal Lab Results - Last 24 Hours (Table) 02/13/22 02/13/22 02/14/22 Range/Units 16:23 20:44 07:07 RBC (3.80-5.40) m/uL Hgb (11.4-16.0) gm/dL Hct (34.0-46.0) % MCHC (31.0-37.0) g/dL RDW (11.5-15.5) % Lymphocytes # (1.0-4.8) k/uL Sodium (137-145) mmol/L BUN (7-17) mg/dL Creatinine (0.52-1.04) mg/dL Glucose (74-99) mg/dL POC Glucose (mg/dL) 209 H 135 H 140 H (70-110) mg/dL Alkaline Phosphatase (38-126) U/L C-Reactive Protein (<1.0) mg/dL Total Protein (6.3-8.2) g/dL Albumin (3.5-5.0) g/dL 02/14/22 02/14/22 02/14/22 Range/Units 11:21 11:21 11:37 RBC 2.68 L (3.80-5.40) m/uL Hgb 7.3 L D (11.4-16.0) gm/dL Hct 26.2 L (34.0-46.0) % MCHC 28.0 L (31.0-37.0) g/dL RDW 16.7 H (11.5-15.5) % Lymphocytes # 0.4 L (1.0-4.8) k/uL Sodium 134 L (137-145) mmol/L BUN 40 H (7-17) mg/dL Creatinine 1.37 H (0.52-1.04) mg/dL Glucose 181 H (74-99) mg/dL POC Glucose (mg/dL) 221 H (70-110) mg/dL Alkaline Phosphatase 137 H (38-126) U/L C-Reactive Protein 15.9 H (<1.0) mg/dL Total Protein 5.7 L (6.3-8.2) g/dL Albumin 2.7 L (3.5-5.0) g/dL Microbiology - Last 24 Hours (Table) 02/12/22 23:19 Urine Culture - Preliminary Urine,Voided Gram Neg Bacilli
[2022-02-14 17:11] LABS: Glucose,Whole Blood 180 mg/dL (70-110)
[2022-02-14 20:22] LABS: Glucose,Whole Blood 159 mg/dL (70-110)
[2022-02-15 02:04] LABS: % Iron Saturation 20.39 (12.00-45.00)
[2022-02-15] MEDS: HYDROmorphone 0.5 MG/0.5 ML SYRINGE IVP PRN ×4 (02:08→20:59)
[2022-02-15] MEDS: CEFEPIME 1 GM in SODIUM CHLORIDE 0.9% 50 ML IVPB SCH ×2 (04:17→15:07)
[2022-02-15] MEDS: LEVOTHYROXINE 100 MCG TAB PO SCH (05:48)
[2022-02-15 07:20] LABS: Glucose,Whole Blood 166 mg/dL (70-110)
[2022-02-15] MEDS: PHENAZOPYRIDINE 100 MG TAB PO SCH ×3 (07:30→20:55)
[2022-02-15] MEDS: CITALOPRAM HYDROBROMIDE 20 MG TAB PO SCH (07:30)
[2022-02-15] MEDS: MAGNESIUM OXIDE 400 MG TAB PO SCH (07:31)
[2022-02-15] MEDS: INSULIN ASPART (NovoLOG) 100 UNIT/ML VIAL SQ SCH ×4 (07:31→20:54)
[2022-02-15] MEDS: PANTOPRAZOLE 40 MG TABLET PO SCH ×2 (07:31→16:39)
[2022-02-15] MEDS: SYMBICORT 160-4.5 MCG INHALER INHALATION SCH ×2 (08:58→19:42)
[2022-02-15 09:15] LABS: African American GFR (CKD) 43.4 (60.0-200.0); Albumin 2.5 g/dL (3.8-4.9); Albumin/Globulin Ratio 0.89 (1.60-3.17); Anion Gap 11.9 mmol/L (10.00-18.00); BUN/Creat Ratio 22.36 Ratio (12.00-20.00); Blood Urea Nitrogen 31.3 mg/dL (9.0-27.0); Calcium 8.1 mg/dL (8.7-10.3); Carbon Dioxide 18.1 mmol/L (20.0-27.5); Globulin 2.8 g/dL (1.6-3.3); Non-African American GFR(CKD) 37.4 (60.0-200.0); Potassium 3.4 mmol/L (3.5-5.5); Total Bilirubin 0.3 mg/dL (0.30-1.20); Total Protein 5.3 g/dL (6.2-8.2)
[2022-02-15] MEDS: METOPROLOL SUCCINATE (ER) 25 MG TAB.ER.24H PO SCH (09:27)
[2022-02-15 10:41] LABS: Basophils # (A) 0.01 X 10*3/uL (0.00-0.10); Basophils % (A) 0.2 %; Eosinophils # (A) 0.15 X 10*3/uL (0.04-0.35); Eosinophils % (A) 2.4 %; HCT 25.4 % (37.2-46.3); HGB 6.6 g/dL (12.0-15.0); Immature Grans, Automated 0.6 %; Lymphocytes # (A) 0.64 X 10*3/uL (0.90-5.00); Lymphocytes % (A) 10.3 %; MCH 25.2 pg (27.0-32.0); MCV 96.9 fL (80.0-97.0); Mean Platelet Volume 9.5 fL (9.5-12.2); Monocytes # (A) 0.74 X 10*3/uL (0.20-1.00); Monocytes % (A) 11.9 %; NRBC Per 100 WBC 0 /100 WBCS (0.0-0.0); Neutrophils # (A) 4.65 X 10*3/uL (1.80-7.70); Neutrophils % (A) 74.6 %; Platelet Count 345 X 10*3/uL (140-440); RBC 2.62 X 10*6/uL (4.10-5.20); RDW 17.4 % (11.5-14.5); WBC 6.23 X 10*3/uL (4.50-10.00)
[2022-02-15 11:51] LABS: Glucose,Whole Blood 163 mg/dL (70-110)
[2022-02-15 12:16] LABS: Anisocytosis Slight; Basophils % (A) 0 %; Eosinophils # (A) 0.1 k/uL (0-0.7); Eosinophils % (A) 2 %; HCT 26.3 % (34.0-46.0); HGB 7.4 gm/dL (11.4-16.0); Hypochromasia Marked; Lymphocytes # (A) 0.6 k/uL (1.0-4.8); Lymphocytes % (A) 9 %; MCH 27.4 pg (25.0-35.0); MCHC 28.1 g/dL (31.0-37.0); MCV 97.6 fL (80.0-100.0); Macrocytosis Slight; Mean Platelet Volume 7.2; Monocytes # (A) 0.5 k/uL (0-1.0); Monocytes % (A) 8 %; Neutrophils % (A) 78 %; Platelet Count 383 k/uL (150-450); Poikilocytosis Slight; RDW 16.8 % (11.5-15.5); WBC 6.4 k/uL (3.8-10.6)
--- NOTE | 2022-02-15 12:35 | P.NPCON ---
History of Present Illness - Reason for Consult acute renal failure - History of Present Illness Patient is a 71-year-old female with history of COPD, type 2 diabetes, hyperlipidemia, hypertension. Patient is admitted to the hospital due to underlying urine tract infection which needed IV antibiotics. Patient has a history of VRE infection previously treated with daptomycin. Patient denies any previous history of kidney diseases Serum creatinine was 1.7 on admission and it is now down to 1.4. Previous creatinine has been about 1.5 mg/dL since October 2021. Fluids creatinine noted to be 1.2 on 10/24/2021 Blood pressure has been on the lower side on admission. No NSAIDs noted Currently not on IV fluids next Urine culture grew E. coli and Klebsiella pneumonia Review of Systems As per HPI Past Medical History Past Medical History: Asthma, Chest Pain / Angina, COPD, Diabetes Mellitus, Hyperlipidemia, Hypertension, Osteoarthritis (OA), Respiratory Disorder, Skin Disorder, Thyroid Disorder Additional Past Medical History / Comment(s): 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 glaucoma, chronic back pain and degenerative disk disease in the lumbar spine , nephrolithiasis, history of cellulitis in the legs and history of falls. The patient is also a recently quit smoker. History of Any Multi-Drug Resistant Organisms: VRE Date of last positivie culture/infection: 10/21/21 MDRO Source:: urine Past Surgical History: Appendectomy, Bowel Resection, Section, Cholecystectomy, Orthopedic Surgery, Tubal Ligation Additional Past Surgical History / Comment(s): LASER SX JETHRO EYES FOR GLAUCOMA. RT KNEE ARTHROSCOPY. UNDERWENT PERCUTANEOUS NEPHROSTOLITHOTOMY, colostomy Past Anesthesia/Blood Transfusion Reactions: No Reported Reaction Past Psychological History: Anxiety, Depression Additional Psychological History / Comment(s): Pt resides with her spouse. She is mostly in a wheelchair. She has home oxygen, nebulizer and glucometer. and lives with adult son. 2 adult children. 2 dogs and 1 cat in the home, but denied alcohol use or recreational drug use. Does not w ork outside of the home. No experience. No travel history Smoking Status: Former smoker Past Alcohol Use History: None Reported Additional Past Alcohol Use History / Comment(s): Pt started smoking in 1968 and quit in 2019cats in the home. No service and no travel history. Past Drug Use History: None Reported - Past Family History Mother Family Medical History: COPD Additional Family Medical History / Comment(s): emphysema, heart valve problems, in her sleep. Brother(s) Family Medical History: Cancer Additional Family Medical History / Comment(s): from oral cancer Father Brother(s) Family Medical History: Cancer Additional Family Medical History / Comment(s): heart disease Medications and Allergies Home Medications Medication Instructions Recorded Confirmed Type ARIPiprazole [Abilify] 5 mg PO HS 02/07/18 02/13/22 History metFORMIN HCL [Glucophage] 1,000 mg PO BID-W/MEALS 02/07/18 02/13/22 History Atorvastatin [Lipitor] 40 mg PO DAILY #30 tab 09/10/18 02/13/22 Rx Levothyroxine Sodium [Synthroid] 200 mcg PO DAILY 09/03/19 02/13/22 History HYDROcodone/APAP 7.5-325MG [[place] 1 tab PO Q6H PRN #12 tab 03/27/20 02/13/22 Rx 7.5-325] traZODone HCL 100 mg PO HS PRN 05/15/20 02/13/22 History Magnesium Oxide [Mag-Ox] 400 mg PO DAILY 01/21/21 02/13/22 History Albuterol Nebulized [Ventolin 2.5 mg INHALATION RT-Q6H PRN 10/19/21 02/13/22 History Nebulized] Albuterol Sulfate [Albuterol 2 puff PO RT-Q6H PRN 10/19/21 02/13/22 History Sulfate Hfa] Cholecalciferol [Vitamin D3 (25 25 mcg PO DAILY 10/19/21 02/13/22 History Mcg = 1000 Iu)] Ferrous Sulfate [Iron (65 MG 325 mg PO Q48H 10/19/21 02/13/22 History Elemental)] Pantoprazole Sodium [Protonix] 40 mg PO AC-BID 10/19/21 02/13/22 History Metoprolol Succinate [Toprol XL] 25 mg PO DAILY 11/07/21 02/13/22 History Citalopram Hydrobromide [CeleXA] 40 mg PO DAILY 01/30/22 02/13/22 History Furosemide [Lasix] 40 mg PO DAILY 01/30/22 02/13/22 History Budesonide-Formot 160-4.5 Mcg 2 puff INHALATION RT-BID 02/13/22 02/13/22 History [Symbicort 160-4.5 Mcg Inhaler] Ipratropium-Albuterol Nebulize 3 ml INHALATION RT-QID 02/13/22 02/13/22 History [Duoneb 0.5 mg-3 mg/3 ml Soln] allopurinoL [Zyloprim] 100 mg PO DAILY 02/13/22 02/13/22 History Allergies Allergy/AdvReac Type Severity Reaction Status Date / Time adhesive Allergy Rash/Hives Verified 02/13/22 07:47 ciprofloxacin [From Cipro] Allergy Rash/Hives Verified 02/13/22 07:47 ciprofloxacin HCl Allergy Rash/Hives Verified 02/13/22 07:47 [From Cipro] latex Allergy Rash/Hives Verified 02/13/22 07:47 levofloxacin [From Levaquin] Allergy Rash/Hives Verified 02/13/22 07:47 nitrofurantoin Allergy Rash/Hives Verified 02/13/22 07:47 [From Macrobid] nitrofurantoin Allergy Rash/Hives Verified 02/13/22 07:47 macrocrystalline [From Macrobid] Penicillins Allergy Rash/Hives Verified 02/13/22 07:47 propoxyphene HCl Allergy Rash/Hives Verified 02/13/22 07:47 [From Darvon] propoxyphene napsylate Allergy Unknown Verified 02/13/22 07:47 [From Darvocet-N] sulfamethoxazole Allergy PIPPA Verified 02/13/22 07:47 [From Bactrim] trimethoprim [From Bactrim] Allergy PIPPA Verified 02/13/22 07:47 Physical Exam Vitals: Vital Signs Temp Pulse Resp BP Pulse Ox 02/15/22 08:21 98.6 F 76 16 144/71 91 L 02/15/22 02:00 98.9 F 68 18 116/55 93 L 02/14/22 21:45 22 02/14/22 20:00 99.7 F H 73 17 121/61 93 L 02/14/22 14:00 97.7 F 71 16 152/66 93 L Intake and Output 02/14/22 02/15/22 02/15/22 22:59 06:59 14:59 Intake Total 50 Output Total 100 Balance -100 50 Intake: Intake, IV Titration 50 Amount Cefepime 1 gm In Sodium 50 Chloride 0.9% 50 ml @ 12. 5 mls/hr IVPB Q12H [facility] Rx #:[id number] Output: Stool 100 Other: Voiding Method External Catheter External Catheter # Voids 2 # Bowel Movements 3 Patient is comfortable awake, not in any acute distress Examination of the heart S1 and S2 Examination lungs bilateral breath sounds are heard Abdomen is soft obese nontender Examination of lower extremity shows no significant edema Results - Lab Results Most recent lab results Calcium 8.1 mg/dL (8.7-10.3) L 02/15/22 06:40 02/15/22 11:42 02/15/22 06:40 Assessment and Plan Assessment: 1. Acute kidney injury associated with underlying infection and borderline blood pressures. Currently nonoliguric and improved. Rule out urine retention. No obstruction noted on ultrasound 2. Chronic kidney disease NKF stage III a previous creatinine as low as 1.2-1.4 mg/dL. Etiology likely nephrosclerosis. Current UA has significant proteinuria but patient has significant pyuria an underlying infection as well. No obstruction noted on ultrasound 3. UTI with urine culture growing Klebsiella pneumonia and E. coli maintained on antibiotics, being followed by ID 4. History of chronic diastolic CHF with ejection fraction 50-55% 5. History of hypothyroidism Plan: Continue to encourage increase oral intake Continue with antibiotics Patient will need follow-up for CK D as outpatient. Thank you for the consultation. We'll continue to follow the patient with you during her hospitalization
--- NOTE | 2022-02-15 14:56 | P.PN ---
Subjective 71 years old female who presented to the emergency department for treatment for urinary tract infection. Apparently she was diagnosed with urinary tract infection as an outpatient and was started on oral antibiotics by primary care physician, patient was called by the primary care physician office and she was told that her urine culture is growing bacteria that is not treatable with oral antibiotics and she needs to go to emergency department for treatment with IV antibiotic. 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 Patient was seen in emergency department and was started on IV daptomycin otherwise patient remains stable vital signs stable she is clinically stable, Hospital medicine was consulted for admission to hospital and further care with a plan for infection disease evaluation Interval history: Patient was seen and examined at the bedside. She is alert oriented 3. She denies any chest pain or shortness of breath. No acute changes overnight. Physical examination General: non toxic, no acute distress, alert oriented to time place and person Head: atraumatic, normocephalic, symmetric Eyes: no lid lesion], anicteric sclera Mouth: no lip lesion, mucus membranes moist Cardiovascular: S1S2 reg rate and rhythm, no murmur, no gallop Lungs: Bilateral equal air entry, no wheezing no rhonchi no crackles. Abdominal: soft, nondistended, colostomy in place Ext: no gross muscle atrophy, no edema extremities warm to suppose a positive Neuro: Alert oriented to time place and person, exam grossly nonfocal Psych: Mood and affect appropriate, patient not so certain Skin exam: No rashes no jaundice. Assessment and plan: Penicillin pneumoniae and E. coli urinary tract infection with sepsis History of VRE ID recommended daptomycin and cefepime Monitor and follow urine culture Infection disease consulted Acute kidney injury Improving with fluids Likely prerenal component, hold nephrotoxin Hold home Lasix, resume as able Renal ultrasound without hydronephrosis Monitor renal function daily Stage III chronic kidney disease Acute hyponatremia Improving Likely in the setting of dehydration Carefully hydrate watch for fluid overload Monitor renal function in sodium levels daily History of chronic diastolic congestive heart failure documented EF 50-55% per last discharge summary Dosnt seem to be in exacerbation / no evidence of fluid overload Holding Lasix for now in the setting of above Watch for fluid overload next line resume oral Lasix as soon as possible Chronic respiratory failure due to COPD On 4 L of oxygen at home Currently at baseline requirement for oxygen Type 2 diabetes mellitus And metformin at home A1c 5.1 Hold oral hypoglycemic Continues on sliding scale Chronic iron deficiency anemia -Normal B12 -Patient known to Dr. Martell -Hematology consulted History of anxiety and depression Continue Celexa History of hypothyroidism Continue levothyroxine History of hypertension Continue metoprolol History of GERD Continue Protonix CODE STATUS: Full code DVT prophylaxis: Subcu heparin Disposition plan: Back to home once clinically stable to be determin Objective - Vital Signs Vital signs: Vital Signs Temp 98.3 F 02/15/22 14:15 Pulse 72 02/15/22 14:15 Resp 16 02/15/22 14:15 BP 131/56 02/15/22 14:15 Pulse Ox 90 L 02/15/22 14:15 FiO2 Intake & Output 02/14/22 02/15/22 02/15/22 18:59 06:59 18:59 Intake Total 50 Output Total 150 100 Balance -150 -50 Intake: Intake, IV Titration 50 Amount Cefepime 1 gm In Sodium 50 Chloride 0.9% 50 ml @ 12. 5 mls/hr IVPB Q12H [facility] Rx #:[id number] Output: Urine 150 Stool 100 Other: Voiding Method External Catheter External Catheter External Catheter # Voids 2 # Bowel Movements 3 - Labs CBC & Chem 7: 02/15/22 11:42 02/15/22 06:40 Labs: Abnormal Lab Results - Last 24 Hours (Table) 02/14/22 02/14/22 02/14/22 Range/Units 15:12 15:12 17:07 RBC (4.10-5.20) X 10*6/uL Hgb (12.0-15.0) g/dL Hct (37.2-46.3) % MCH (27.0-32.0) pg MCHC (32.0-37.0) g/dL RDW (11.5-14.5) % Lymphocytes # (0.90-5.00) X 10*3/uL Sodium (135-145) mmol/L Potassium (3.5-5.5) mmol/L Carbon Dioxide (20.0-27.5) mmol/L BUN (9.0-27.0) mg/dL Est GFR (CKD-EPI)AfAm (60.0-200.0) Est GFR (CKD-EPI)NonAf (60.0-200.0) BUN/Creatinine Ratio (12.00-20.00) Ratio Glucose (70-110) mg/dL POC Glucose (mg/dL) 180 H (70-110) mg/dL Calcium (8.7-10.3) mg/dL Iron 39 L (50-170) ug/dL TIBC 193 L (228-460) ug/dL Transferrin 138.0 L (204.0-354.0) mg/dL Ferritin 2674.0 H (10.0-291.0) ng/mL Alkaline Phosphatase (41-126) U/L Total Protein (6.2-8.2) g/dL Albumin (3.8-4.9) g/dL Albumin/Globulin Ratio (1.60-3.17) g/dL Vitamin B12 993.0 H (200.0-944.0) pg/mL RBC Folate 874 H (280 - 791) ng/mL 02/14/22 02/15/22 02/15/22 Range/Units 20:19 06:40 06:40 RBC 2.62 L (4.10-5.20) X 10*6/uL Hgb 6.6 L* (12.0-15.0) g/dL Hct 25.4 L (37.2-46.3) % MCH 25.2 L (27.0-32.0) pg MCHC 26.0 L (32.0-37.0) g/dL RDW 17.4 H (11.5-14.5) % Lymphocytes # 0.64 L (0.90-5.00) X 10*3/uL Sodium 134 L (135-145) mmol/L Potassium 3.4 L (3.5-5.5) mmol/L Carbon Dioxide 18.1 L (20.0-27.5) mmol/L BUN 31.3 H (9.0-27.0) mg/dL Est GFR (CKD-EPI)AfAm 43.4 L (60.0-200.0) Est GFR (CKD-EPI)NonAf 37.4 L (60.0-200.0) BUN/Creatinine Ratio 22.36 H (12.00-20.00) Ratio Glucose 155 H (70-110) mg/dL POC Glucose (mg/dL) 159 H (70-110) mg/dL Calcium 8.1 L (8.7-10.3) mg/dL Iron (50-170) ug/dL TIBC (228-460) ug/dL Transferrin (204.0-354.0) mg/dL Ferritin (10.0-291.0) ng/mL Alkaline Phosphatase 129 H (41-126) U/L Total Protein 5.3 L (6.2-8.2) g/dL Albumin 2.5 L (3.8-4.9) g/dL Albumin/Globulin Ratio 0.89 L (1.60-3.17) g/dL Vitamin B12 (200.0-944.0) pg/mL RBC Folate (280 - 791) ng/mL 02/15/22 02/15/22 02/15/22 Range/Units 07:19 11:42 11:50 RBC 2.70 L (4.10-5.20) X 10*6/uL Hgb 7.4 L (12.0-15.0) g/dL Hct 26.3 L (37.2-46.3) % MCH (27.0-32.0) pg MCHC 28.1 L (32.0-37.0) g/dL RDW 16.8 H (11.5-14.5) % Lymphocytes # 0.6 L (0.90-5.00) X 10*3/uL Sodium (135-145) mmol/L Potassium (3.5-5.5) mmol/L Carbon Dioxide (20.0-27.5) mmol/L BUN (9.0-27.0) mg/dL Est GFR (CKD-EPI)AfAm (60.0-200.0) Est GFR (CKD-EPI)NonAf (60.0-200.0) BUN/Creatinine Ratio (12.00-20.00) Ratio Glucose (70-110) mg/dL POC Glucose (mg/dL) 166 H 163 H (70-110) mg/dL Calcium (8.7-10.3) mg/dL Iron (50-170) ug/dL TIBC (228-460) ug/dL Transferrin (204.0-354.0) mg/dL Ferritin (10.0-291.0) ng/mL Alkaline Phosphatase (41-126) U/L Total Protein (6.2-8.2) g/dL Albumin (3.8-4.9) g/dL Albumin/Globulin Ratio (1.60-3.17) g/dL Vitamin B12 (200.0-944.0) pg/mL RBC Folate (280 - 791) ng/mL Microbiology - Last 24 Hours (Table) 02/12/22 23:19 Urine Culture - Final Urine,Voided Klebsiella pneumoniae Escherichia coli
--- NOTE | 2022-02-15 15:19 | P.CONS ---
History of Present Illness - Reason for Consult Consult date: 02/15/22 anemia Requesting physician: Kee Iqbal - Chief Complaint UTI, failed outpt treatment - History of Present Illness Mrs. Estrada is a pleasant female, initially seen in consult at [facility] on 05/29/20. She was sent in on the direction of her PCP for severe,recurrent anemia, Hgb 5-6 range. She had been admitted in early 05/09 with similar complaints with hemoglobin 6.8, and black stools. She had also had upper GI bleed in 03/08 with endoscopy at that time showing a nonbleeding duodenal ulcer. EGD and colonoscopy done on 04/25/20 showing duodenitis with venous malformation in the second part of the duodenum that was cauterized. There was evidence of gastritis, with small specks of blood but no active bleeding. Repeat EGD and colonoscopy in 05/06/20 with upper endoscopy revealing nonbleeding angiectasia in the second part of the duodenum, status post cauterization, as well as at least 4 nonbleeding angiodysplasia at the base of the cecum status post cautery and clip placement. CT AP 04/25/20 showed mild atelectasis at the lung bases, bilateral renal calculi and mild right-sided hydronephrosis and hydroureter, with no obvious obstructing stone. 06/08 labs confirmed iron deficiency with ferritin in the 40's and sat 8.9%. The patient was on no anticoagulation, but was taking aspirin 81 mg daily. In addition to blood transfusion, she also received IV iron. ASA DC at the time of her discharge in 06/08. She was seen outpt, given parenteral iron. On re- evaluation ferritin was markedly elevated so, IV iron stopped. Workup for other causes of anemia were negative. Patient was inpt 01/07 with recurrent UTI, and cellulitis. Hemoglobin during that admission dropped to 6.4. It improved into the 8 range with transfusion. Ferritin level was greater than 2000. KUB ultrasound on 01/23/21 showed diffuse cortical thickening of both kidneys consistent with medical renal disease, 7 mm right renal calculus without hydronephrosis and area of ill-defined echotexture in the right mid kidney of unclear etiology. When seen in 02/07, it was felt that her low hemoglobin now, given the high ferritin, was more due to inflammation from her UTIs as well as likely chronic kidney disease. The patient was started on MARCELLA, and received retacrit on 02/04/21. However she did not follow-up in the office after that as she was admitted to the hospital. She apparently had severe diverticulitis and had to have bowel resection with ostomy placement. She was discharged home from the hospital but then subsequently developed a UTI in late 04/09 treated with antibiotics. Visit posthospitalization in 05/10, Hgb was 7.2. This was felt to be multifactorial, due to blood loss during surgery, as well as subsequent inflammation, lack of MARCELLA support because of her being hospitalized, as well as antibiotic use with Bactrim. Once she started to recover and was back on MARCELLA consistently her Hgb responded well, increased to the 10-11 range. Her MARCELLA frequency was changed to every 2 weeks in early 2021. When she was hospitalized in early 11/08 with a UTI and the developed bilateral cellulitis requiring antibiotics, her Hgb dropped into the 7 range. 01/24 Hgb 9.9, on 01/30 down to 7.7. Last seen in ofc 01/30/22, given retacrit 20,000, missed 02/06 and 02/13 doses-no transportation. Her last feraheme was in 2020. She is denying any bleeding, dark stool. She is being treated for UTI. 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 glaucoma, chronic back pain and degenerative disk disease in the lumbar spine , nephrolithiasis, history of cellulitis in the legs and history of falls. The patient is also a recently quit smoker. Angiodysplasia History of Any Multi-Drug Resistant Organisms: VRE Year Discovered:: 10/21/21 MDRO Source:: urine Past Surgical History: Appendectomy, Bowel Resection, Section, Cholecystectomy, Orthopedic Surgery, Tubal Ligation Additional Past Surgical History / Comment(s): LASER SX JETHRO EYES FOR GLAUCOMA. RT KNEE ARTHROSCOPY. UNDERWENT PERCUTANEOUS NEPHROSTOLITHOTOMY, colostomy Past Anesthesia/Blood Transfusion Reactions: No Reported Reaction Past Psychological History: Anxiety, Depression Additional Psychological History / Comment(s): Pt resides with her spouse. She is mostly in a wheelchair. She has home oxygen, nebulizer and glucometer. and lives with adult son. 2 adult children. 2 dogs and 1 cat in the home, but denied alcohol use or recreational drug use. Does not work outside of the home. No experience. No travel history Smoking Status: Former smoker Past Alcohol Use History: None Reported Additional Past Alcohol Use History / Comment(s): Pt started smoking in 1968 and quit in 2019cats in the home. No service and no travel history. Past Drug Use History: None Reported - Past Family History Mother Family Medical History: COPD Additional Family Medical History / Comment(s): emphysema, heart valve problems, in her sleep. Brother(s) Family Medical History: Cancer Additional Family Medical History / Comment(s): from oral cancer Father Brother(s) Family Medical History: Cancer Additional Family Medical History / Comment(s): heart disease Medications and Allergies Home Medications Medication Instructions Recorded Confirmed Type ARIPiprazole [Abilify] 5 mg PO HS 02/07/18 02/13/22 History metFORMIN HCL [Glucophage] 1,000 mg PO BID-W/MEALS 02/07/18 02/13/22 History Atorvastatin [Lipitor] 40 mg PO DAILY #30 tab 09/10/18 02/13/22 Rx Levothyroxine Sodium [Synthroid] 200 mcg PO DAILY 09/03/19 02/13/22 History HYDROcodone/APAP 7.5-325MG [Dresser 1 tab PO Q6H PRN #12 tab 03/27/20 02/13/22 Rx 7.5-325] traZODone HCL 100 mg PO HS PRN 05/15/20 02/13/22 History Magnesium Oxide [Mag-Ox] 400 mg PO DAILY 01/21/21 02/13/22 History Albuterol Nebulized [Ventolin 2.5 mg INHALATION RT-Q6H PRN 10/19/21 02/13/22 History Nebulized] Albuterol Sulfate [Albuterol 2 puff PO RT-Q6H PRN 10/19/21 02/13/22 History Sulfate Hfa] Cholecalciferol [Vitamin D3 (25 25 mcg PO DAILY 10/19/21 02/13/22 History Mcg = 1000 Iu)] Ferrous Sulfate [Iron (65 MG 325 mg PO Q48H 10/19/21 02/13/22 History Elemental)] Pantoprazole Sodium [Protonix] 40 mg PO AC-BID 10/19/21 02/13/22 History Metoprolol Succinate [Toprol XL] 25 mg PO DAILY 11/07/21 02/13/22 History Citalopram Hydrobromide [CeleXA] 40 mg PO DAILY 01/30/22 02/13/22 History Furosemide [Lasix] 40 mg PO DAILY 01/30/22 02/13/22 History Budesonide-Formot 160-4.5 Mcg 2 puff INHALATION RT-BID 02/13/22 02/13/22 History [Symbicort 160-4.5 Mcg Inhaler] Ipratropium-Albuterol Nebulize 3 ml INHALATION RT-QID 02/13/22 02/13/22 History [Duoneb 0.5 mg-3 mg/3 ml Soln] allopurinoL [Zyloprim] 100 mg PO DAILY 02/13/22 02/13/22 History Allergies Allergy/AdvReac Type Severity Reaction Status Date / Time adhesive Allergy Rash/Hives Verified 02/13/22 07:47 ciprofloxacin [From Cipro] Allergy Rash/Hives Verified 02/13/22 07:47 ciprofloxacin HCl Allergy Rash/Hives Verified 02/13/22 07:47 [From Cipro] latex Allergy Rash/Hives Verified 02/13/22 07:47 levofloxacin [From Levaquin] Allergy Rash/Hives Verified 02/13/22 07:47 nitrofurantoin Allergy Rash/Hives Verified 02/13/22 07:47 [From Macrobid] nitrofurantoin Allergy Rash/Hives Verified 02/13/22 07:47 macrocrystalline [From Macrobid] Penicillins Allergy Rash/Hives Verified 02/13/22 07:47 propoxyphene HCl Allergy Rash/Hives Verified 02/13/22 07:47 [From Darvon] propoxyphene napsylate Allergy Unknown Verified 02/13/22 07:47 [From Darvocet-N] sulfamethoxazole Allergy PIPPA Verified 02/13/22 07:47 [From Bactrim] trimethoprim [From Bactrim] Allergy PIPPA Verified 02/13/22 07:47 Physical Exam Vitals: Vital Signs Temp Pulse Resp BP Pulse Ox 02/15/22 14:15 98.3 F 72 16 131/56 90 L 02/15/22 08:21 98.6 F 76 16 144/71 91 L 02/15/22 02:00 98.9 F 68 18 116/55 93 L 02/14/22 21:45 22 02/14/22 20:00 99.7 F H 73 17 121/61 93 L Intake and Output 02/15/22 02/15/22 02/15/22 06:59 14:59 22:59 Intake Total 50 Balance 50 Intake: Intake, IV Titration 50 Amount Cefepime 1 gm In Sodium 50 Chloride 0.9% 50 ml @ 12. 5 mls/hr IVPB Q12H [facility] Rx #:[id number] Other: Voiding Method External Catheter # Voids 2 # Bowel Movements 3 - Constitutional General appearance: cooperative, no acute distress, obese - EENT Eyes: anicteric sclerae, EOMI ENT: hearing grossly normal - Neck Neck: no lymphadenopathy - Respiratory Respiratory: bilateral: CTA, diminished - Cardiovascular Rhythm: regular Heart sounds: normal: S1, S2 Abnormal Heart Sounds: no systolic murmur, no diastolic murmur, no rub, no S3 Gallop, no S4 Gallop, no click, no other leg Peripheral Edema: bilateral: None - Gastrointestinal General gastrointestinal: normal bowel sounds, soft - Integumentary Integumentary: normal - Neurologic Neurologic: CNII-XII intact - Musculoskeletal Musculoskeletal: generalized weakness, strength equal bilaterally - Psychiatric Psychiatric: A&O x's 3, appropriate affect, intact judgment & insight Results CBC & Chem 7: 02/15/22 11:42 02/15/22 06:40 Labs: Abnormal Lab Results - Last 24 Hours (Table) 02/14/22 02/14/22 02/14/22 Range/Units 15:12 15:12 17:07 RBC (4.10-5.20) X 10*6/uL Hgb (12.0-15.0) g/dL Hct (37.2-46.3) % MCH (27.0-32.0) pg MCHC (32.0-37.0) g/dL RDW (11.5-14.5) % Lymphocytes # (0.90-5.00) X 10*3/uL Sodium (135-145) mmol/L Potassium (3.5-5.5) mmol/L Carbon Dioxide (20.0-27.5) mmol/L BUN (9.0-27.0) mg/dL Est GFR (CKD-EPI)AfAm (60.0-200.0) Est GFR (CKD-EPI)NonAf (60.0-200.0) BUN/Creatinine Ratio (12.00-20.00) Ratio Glucose (70-110) mg/dL POC Glucose (mg/dL) 180 H (70-110) mg/dL Calcium (8.7-10.3) mg/dL Iron 39 L (50-170) ug/dL TIBC 193 L (228-460) ug/dL Transferrin 138.0 L (204.0-354.0) mg/dL Ferritin 2674.0 H (10.0-291.0) ng/mL Alkaline Phosphatase (41-126) U/L Total Protein (6.2-8.2) g/dL Albumin (3.8-4.9) g/dL Albumin/Globulin Ratio (1.60-3.17) g/dL Vitamin B12 993.0 H (200.0-944.0) pg/mL RBC Folate 874 H (280 - 791) ng/mL 02/14/22 02/15/22 02/15/22 Range/Units 20:19 06:40 06:40 RBC 2.62 L (4.10-5.20) X 10*6/uL Hgb 6.6 L* (12.0-15.0) g/dL Hct 25.4 L (37.2-46.3) % MCH 25.2 L (27.0-32.0) pg MCHC 26.0 L (32.0-37.0) g/dL RDW 17.4 H (11.5-14.5) % Lymphocytes # 0.64 L (0.90-5.00) X 10*3/uL Sodium 134 L (135-145) mmol/L Potassium 3.4 L (3.5-5.5) mmol/L Carbon Dioxide 18.1 L (20.0-27.5) mmol/L BUN 31.3 H (9.0-27.0) mg/dL Est GFR (CKD-EPI)AfAm 43.4 L (60.0-200.0) Est GFR (CKD-EPI)NonAf 37.4 L (60.0-200.0) BUN/Creatinine Ratio 22.36 H (12.00-20.00) Ratio Glucose 155 H (70-110) mg/dL POC Glucose (mg/dL) 159 H (70-110) mg/dL Calcium 8.1 L (8.7-10.3) mg/dL Iron (50-170) ug/dL TIBC (228-460) ug/dL Transferrin (204.0-354.0) mg/dL Ferritin (10.0-291.0) ng/mL Alkaline Phosphatase 129 H (41-126) U/L Total Protein 5.3 L (6.2-8.2) g/dL Albumin 2.5 L (3.8-4.9) g/dL Albumin/Globulin Ratio 0.89 L (1.60-3.17) g/dL Vitamin B12 (200.0-944.0) pg/mL RBC Folate (280 - 791) ng/mL 02/15/22 02/15/22 02/15/22 Range/Units 07:19 11:42 11:50 RBC 2.70 L (4.10-5.20) X 10*6/uL Hgb 7.4 L (12.0-15.0) g/dL Hct 26.3 L (37.2-46.3) % MCH (27.0-32.0) pg MCHC 28.1 L (32.0-37.0) g/dL RDW 16.8 H (11.5-14.5) % Lymphocytes # 0.6 L (0.90-5.00) X 10*3/uL Sodium (135-145) mmol/L Potassium (3.5-5.5) mmol/L Carbon Dioxide (20.0-27.5) mmol/L BUN (9.0-27.0) mg/dL Est GFR (CKD-EPI)AfAm (60.0-200.0) Est GFR (CKD-EPI)NonAf (60.0-200.0) BUN/Creatinine Ratio (12.00-20.00) Ratio Glucose (70-110) mg/dL POC Glucose (mg/dL) 166 H 163 H (70-110) mg/dL Calcium (8.7-10.3) mg/dL Iron (50-170) ug/dL TIBC (228-460) ug/dL Transferrin (204.0-354.0) mg/dL Ferritin (10.0-291.0) ng/mL Alkaline Phosphatase (41-126) U/L Total Protein (6.2-8.2) g/dL Albumin (3.8-4.9) g/dL Albumin/Globulin Ratio (1.60-3.17) g/dL Vitamin B12 (200.0-944.0) pg/mL RBC Folate (280 - 791) ng/mL Microbiology - Last 24 Hours (Table) 02/12/22 23:19 Urine Culture - Final Urine,Voided Klebsiella pneumoniae Escherichia coli Assessment and Plan (1) Anemia Current Visit: Yes Status: Chronic Priority: High Code(s): D64.9 - ANEMIA, UNSPECIFIED SNOMED Code(s): 360614768 (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 Now, acute infection and abx. Her Hgb will drop. CBC daily Transfuse for Hgb <7 unless symptomatic MARCELLA ordered Current labs consistent with anemia of inflammation Addition labs ordered for evaluation Attests: I have seen and examined pt, performed H&P, developed impression and plan of care. Discussed with dictator, agree with dictation, documented as a scribe
[2022-02-15] MEDS: ALBUTEROL NEBULIZED 2.5 MG/3 ML INHALATION PRN (15:24)
--- NOTE | 2022-02-15 15:42 | P.GSCN ---
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 SHe was treated with colectomy , colostomy by Dr Renee in 02/2021/ I last saw her 04/2021 and she was voiding well without the catheter. there was no evidence of a fistula at that time. SHe ahd a ct scan 01/24 22 that showed a normal looking bladder. SHe had air in the bladder but this was thought to be due to a catheter in place. I do not see an obvious catheter in place at the computed tomography scan.There was question of a psoas abscess at the time. SHe had an us on this admission for a uti that was limited but didnt show any hydronephrosis. She still has her colostomy bag.Apparently she is not a good surgical candiadte to take the colostomy down. I have been asked to see her for a possible colovesical fistula.She states that for the last couple of days she thinks that she passed some air when she urinates.The air has gone since she has been in the hospital and on antibiotics. Review of Systems All systems: negative - Constitutional Denies fever, Denies weight loss - EENT Eyes: denies blurred vision Ears, nose, mouth and throat: Denies dysphagia - Cardiovascular Denies chest pain, Denies shortness of breath - Respiratory Denies cough, Denies 7 - Gastrointestinal Reports as per HPI - Genitourinary Genitourinary: Denies dysuria, Denies hematuria - Integumentary Denies rash, Denies unusual bruising - Neurological Denies headaches, Denies syncope - Hematologic/Lymphatic Denies easy bleeding, Denies easy bruising Past Medical History Past Medical History: Asthma, Chest Pain / Angina, COPD, Diabetes Mellitus, Hyperlipidemia, Hypertension, Osteoarthritis (OA), Respiratory Disorder, Skin Disorder, Thyroid Disorder Additional Past Medical History / Comment(s): 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 glaucoma, chronic back pain and degenerative disk disease in the lumbar spine , nephrolithiasis, history of cellulitis in the legs and history of falls. The patient is also a recently quit smoker. 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 RT KNEE ARTHROSCOPY. UNDERWENT PERCUTANEOUS NEPHROSTOLITHOTOMY, colostomy Past Anesthesia/Blood Transfusion Reactions: No Reported Reaction Past Psychological History: Anxiety, Depression Additional Psychological History / Comment(s): Pt resides with her spouse. She is mostly in a wheelchair. She has home oxygen, nebulizer and glucometer. and lives with adult son. 2 adult children. 2 dogs and 1 cat in the home, but denied alcohol use or recreational drug use. Does not work outside of the home. No experience. No travel history Smoking Status: Former smoker Past Alcohol Use History: None Reported Additional Past Alcohol Use History / Comment(s): Pt started smoking in 1968 and quit in 2019cats in the home. No service and no travel history. Past Drug Use History: None Reported - Past Family History Mother Family Medical History: COPD Additional Family Medical History / Comment(s): emphysema, heart valve problems, in her sleep. Brother(s) Family Medical History: Cancer Additional Family Medical History / Comment(s): from oral cancer Father Brother(s) Family Medical History: Cancer Additional Family Medical History / Comment(s): heart disease Medications and Allergies Home Medications Medication Instructions Recorded Confirmed Type ARIPiprazole [Abilify] 5 mg PO HS 02/07/18 02/13/22 History metFORMIN HCL [Glucophage] 1,000 mg PO BID-W/MEALS 02/07/18 02/13/22 History Atorvastatin [Lipitor] 40 mg PO DAILY #30 tab 09/10/18 02/13/22 Rx Levothyroxine Sodium [Synthroid] 200 mcg PO DAILY 09/03/19 02/13/22 History HYDROcodone/APAP 7.5-325MG [[place] 1 tab PO Q6H PRN #12 tab 03/27/20 02/13/22 Rx 7.5-325] traZODone HCL 100 mg PO HS PRN 05/15/20 02/13/22 History Magnesium Oxide [Mag-Ox] 400 mg PO DAILY 01/21/21 02/13/22 History Albuterol Nebulized [Ventolin 2.5 mg INHALATION RT-Q6H PRN 10/19/21 02/13/22 History Nebulized] Albuterol Sulfate [Albuterol 2 puff PO RT-Q6H PRN 10/19/21 02/13/22 History Sulfate Hfa] Cholecalciferol [Vitamin D3 (25 25 mcg PO DAILY 10/19/21 02/13/22 History Mcg = 1000 Iu)] Ferrous Sulfate [Iron (65 MG 325 mg PO Q48H 10/19/21 02/13/22 History Elemental)] Pantoprazole Sodium [Protonix] 40 mg PO AC-BID 10/19/21 02/13/22 History Metoprolol Succinate [Toprol XL] 25 mg PO DAILY 11/07/21 02/13/22 History Citalopram Hydrobromide [CeleXA] 40 mg PO DAILY 01/30/22 02/13/22 History Furosemide [Lasix] 40 mg PO DAILY 01/30/22 02/13/22 History Budesonide-Formot 160-4.5 Mcg 2 puff INHALATION RT-BID 02/13/22 02/13/22 History [Symbicort 160-4.5 Mcg Inhaler] Ipratropium-Albuterol Nebulize 3 ml INHALATION RT-QID 02/13/22 02/13/22 History [Duoneb 0.5 mg-3 mg/3 ml Soln] allopurinoL [Zyloprim] 100 mg PO DAILY 02/13/22 02/13/22 History Allergies Allergy/AdvReac Type Severity Reaction Status Date / Time adhesive Allergy Rash/Hives Verified 02/13/22 07:47 ciprofloxacin [From Cipro] Allergy Rash/Hives Verified 02/13/22 07:47 ciprofloxacin HCl Allergy Rash/Hives Verified 02/13/22 07:47 [From Cipro] latex Allergy Rash/Hives Verified 02/13/22 07:47 levofloxacin [From Levaquin] Allergy Rash/Hives Verified 02/13/22 07:47 nitrofurantoin Allergy Rash/Hives Verified 02/13/22 07:47 [From Macrobid] nitrofurantoin Allergy Rash/Hives Verified 02/13/22 07:47 macrocrystalline [From Macrobid] Penicillins Allergy Rash/Hives Verified 02/13/22 07:47 propoxyphene HCl Allergy Rash/Hives Verified 02/13/22 07:47 [From Darvon] propoxyphene napsylate Allergy Unknown Verified 02/13/22 07:47 [From Darvocet-N] sulfamethoxazole Allergy PIPPA Verified 02/13/22 07:47 [From Bactrim] trimethoprim [From Bactrim] Allergy PIPPA Verified 02/13/22 07:47 Surgical - Exam Vital Signs Temp Pulse Resp BP Pulse Ox 97.3 F L 68 20 119/54 96 02/12/22 23:11 02/12/22 23:11 02/12/22 23:11 02/12/22 23:11 02/12/22 23:11 - General well developed, well nourished, no distress - ENT no hearing loss - Neck trachea midline - Respiratory normal expansion, normal respiratory effort - Cardiovascular Rhythm: regular - Abdomen Colostomy Abdomen: soft, non tender - Neurologic normal coordination - Musculoskeletal normal posture - Psychiatric oriented to time, oriented to person, oriented to place, speech is normal, m coy intact Results - Labs 02/15/22 11:42 02/15/22 06:40 Abnormal Lab Results - Last 24 Hours (Table) 02/14/22 02/14/22 02/14/22 Range/Units 11:21 11:21 15:12 RBC 2.68 L (3.80-5.40) m/uL Hgb 7.3 L D (11.4-16.0) gm/dL Hct 26.2 L (34.0-46.0) % MCH (27.0-32.0) pg MCHC 28.0 L (31.0-37.0) g/dL RDW 16.7 H (11.5-15.5) % Lymphocytes # 0.4 L (1.0-4.8) k/uL Sodium 134 L (137-145) mmol/L Potassium (3.5-5.5) mmol/L Carbon Dioxide (20.0-27.5) mmol/L BUN 40 H (7-17) mg/dL Creatinine 1.37 H (0.52-1.04) mg/dL Est GFR (CKD-EPI)AfAm (60.0-200.0) Est GFR (CKD-EPI)NonAf (60.0-200.0) BUN/Creatinine Ratio (12.00-20.00) Ratio Glucose 181 H (74-99) mg/dL POC Glucose (mg/dL) (70-110) mg/dL Calcium (8.7-10.3) mg/dL Iron 39 L (50-170) ug/dL TIBC 193 L (228-460) ug/dL Transferrin 138.0 L (204.0-354.0) mg/dL Ferritin 2674.0 H (10.0-291.0) ng/mL Alkaline Phosphatase 137 H (38-126) U/L C-Reactive Protein 15.9 H (<1.0) mg/dL Total Protein 5.7 L (6.3-8.2) g/dL Albumin 2.7 L (3.5-5.0) g/dL Albumin/Globulin Ratio (1.60-3.17) g/dL Vitamin B12 993.0 H (200.0-944.0) pg/mL RBC Folate (280 - 791) ng/mL 02/14/22 02/14/22 02/14/22 Range/Units 15:12 17:07 20:19 RBC (3.80-5.40) m/uL Hgb (11.4-16.0) gm/dL Hct (34.0-46.0) % MCH (27.0-32.0) pg MCHC (31.0-37.0) g/dL RDW (11.5-15.5) % Lymphocytes # (1.0-4.8) k/uL Sodium (137-145) mmol/L Potassium (3.5-5.5) mmol/L Carbon Dioxide (20.0-27.5) mmol/L BUN (7-17) mg/dL Creatinine (0.52-1.04) mg/dL Est GFR (CKD-EPI)AfAm (60.0-200.0) Est GFR (CKD-EPI)NonAf (60.0-200.0) BUN/Creatinine Ratio (12.00-20.00) Ratio Glucose (74-99) mg/dL POC Glucose (mg/dL) 180 H 159 H (70-110) mg/dL Calcium (8.7-10.3) mg/dL Iron (50-170) ug/dL TIBC (228-460) ug/dL Transferrin (204.0-354.0) mg/dL Ferritin (10.0-291.0) ng/mL Alkaline Phosphatase (38-126) U/L C-Reactive Protein (<1.0) mg/dL Total Protein (6.3-8.2) g/dL Albumin (3.5-5.0) g/dL Albumin/Globulin Ratio (1.60-3.17) g/dL Vitamin B12 (200.0-944.0) pg/mL RBC Folate 874 H (280 - 791) ng/mL 02/15/22 02/15/22 02/15/22 Range/Units 06:40 06:40 07:19 RBC 2.62 L (3.80-5.40) m/uL Hgb 6.6 L* (11.4-16.0) gm/dL Hct 25.4 L (34.0-46.0) % MCH 25.2 L (27.0-32.0) pg MCHC 26.0 L (31.0-37.0) g/dL RDW 17.4 H (11.5-15.5) % Lymphocytes # 0.64 L (1.0-4.8) k/uL Sodium 134 L (137-145) mmol/L Potassium 3.4 L (3.5-5.5) mmol/L Carbon Dioxide 18.1 L (20.0-27.5) mmol/L BUN 31.3 H (7-17) mg/dL Creatinine (0.52-1.04) mg/dL Est GFR (CKD-EPI)AfAm 43.4 L (60.0-200.0) Est GFR (CKD-EPI)NonAf 37.4 L (60.0-200.0) BUN/Creatinine Ratio 22.36 H (12.00-20.00) Ratio Glucose 155 H (74-99) mg/dL POC Glucose (mg/dL) 166 H (70-110) mg/dL Calcium 8.1 L (8.7-10.3) mg/dL Iron (50-170) ug/dL TIBC (228-460) ug/dL Transferrin (204.0-354.0) mg/dL Ferritin (10.0-291.0) ng/mL Alkaline Phosphatase 129 H (38-126) U/L C-Reactive Protein (<1.0) mg/dL Total Protein 5.3 L (6.3-8.2) g/dL Albumin 2.5 L (3.5-5.0) g/dL Albumin/Globulin Ratio 0.89 L (1.60-3.17) g/dL Vitamin B12 (200.0-944.0) pg/mL RBC Folate (280 - 791) ng/mL 02/15/22 Range/Units 11:50 RBC (3.80-5.40) m/uL Hgb (11.4-16.0) gm/dL Hct (34.0-46.0) % MCH (27.0-32.0) pg MCHC (31.0-37.0) g/dL RDW (11.5-15.5) % Lymphocytes # (1.0-4.8) k/uL Sodium (137-145) mmol/L Potassium (3.5-5.5) mmol/L Carbon Dioxide (20.0-27.5) mmol/L BUN (7-17) mg/dL Creatinine (0.52-1.04) mg/dL Est GFR (CKD-EPI)AfAm (60.0-200.0) Est GFR (CKD-EPI)NonAf (60.0-200.0) BUN/Creatinine Ratio (12.00-20.00) Ratio Glucose (74-99) mg/dL POC Glucose (mg/dL) 163 H (70-110) mg/dL Calcium (8.7-10.3) mg/dL Iron (50-170) ug/dL TIBC (228-460) ug/dL Transferrin (204.0-354.0) mg/dL Ferritin (10.0-291.0) ng/mL Alkaline Phosphatase (38-126) U/L C-Reactive Protein (<1.0) mg/dL Total Protein (6.3-8.2) g/dL Albumin (3.5-5.0) g/dL Albumin/Globulin Ratio (1.60-3.17) g/dL Vitamin B12 (200.0-944.0) pg/mL RBC Folate (280 - 791) ng/mL Microbiology - Last 24 Hours (Table) 02/12/22 23:19 Urine Culture - Final Urine,Voided Klebsiella pneumoniae Escherichia coli Diabetes panel 02/14/22 02/14/22 02/15/22 Range/Units 11:21 15:12 06:40 Sodium 134 L 134 L (137-145) mmol/L Potassium 3.5 3.4 L (3.5-5.1) mmol/L Chloride 106 104 (98-107) mmol/L Carbon Dioxide 22 18.1 L (22-30) mmol/L BUN 40 H 31.3 H (7-17) mg/dL Creatinine 1.37 H 1.4 (0.52-1.04) mg/dL Glucose 181 H 155 H (74-99) mg/dL Hemoglobin A1c 5.1 (0.0-6.0) % Calcium 8.4 8.1 L (8.4-10.2) mg/dL AST 22 23 (14-36) U/L ALT 29 31 (4-34) U/L Alkaline Phosphatase 137 H 129 H (38-126) U/L Total Protein 5.7 L 5.3 L (6.3-8.2) g/dL Albumin 2.7 L 2.5 L (3.5-5.0) g/dL Calcium panel 02/14/22 02/15/22 Range/Units 11:21 06:40 Calcium 8.4 8.1 L (8.4-10.2) mg/dL Albumin 2.7 L 2.5 L (3.5-5.0) g/dL Pituitary panel 02/14/22 02/15/22 Range/Units 11:21 06:40 Sodium 134 L 134 L (137-145) mmol/L Potassium 3.5 3.4 L (3.5-5.1) mmol/L Chloride 106 104 (98-107) mmol/L Carbon Dioxide 22 18.1 L (22-30) mmol/L BUN 40 H 31.3 H (7-17) mg/dL Creatinine 1.37 H 1.4 (0.52-1.04) mg/dL Glucose 181 H 155 H (74-99) mg/dL Calcium 8.4 8.1 L (8.4-10.2) mg/dL Adrenal panel 02/14/22 02/15/22 Range/Units 11:21 06:40 Sodium 134 L 134 L (137-145) mmol/L Potassium 3.5 3.4 L (3.5-5.1) mmol/L Chloride 106 104 (98-107) mmol/L Carbon Dioxide 22 18.1 L (22-30) mmol/L BUN 40 H 31.3 H (7-17) mg/dL Creatinine 1.37 H 1.4 (0.52-1.04) mg/dL Glucose 181 H 155 H (74-99) mg/dL Calcium 8.4 8.1 L (8.4-10.2) mg/dL Total Bilirubin 0.4 0.30 (0.2-1.3) mg/dL AST 22 23 (14-36) U/L ALT 29 31 (4-34) U/L Alkaline Phosphatase 137 H 129 H (38-126) U/L Total Protein 5.7 L 5.3 L (6.3-8.2) g/dL Albumin 2.7 L 2.5 L (3.5-5.0) g/dL - Imaging CT scan - abdomen: report reviewed, image reviewed CT scan - pelvis: report reviewed, image reviewed US - abdomen: report reviewed, image reviewed Assessment and Plan Assessment: Impression: Urinary tract infection with sepsis. Anemia. 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 Recent urine infection with possible pneumaturia. Recommendations: I reviewed the CAT scan from 01/24/2022 and indeed there is a small amount of air. The cause is air in the urinary tract include gas-forming bacteria versus fistula. Since he air has subsided since she's been treated with antibiotics and she has had a recent CAT scan that does not show an obvious fistula my recommendations would be to see her with antibiotics and then see how she does down the road. If the pneumaturia returns she'll need reevaluation by service as well as Dr. Strange to see if there is recurrence of a fistula. The next question would be is whether she is a surgical candidate for that surgical repair as she is not even considered a surgical candidate to take her colostomy down.
[2022-02-15 16:17] LABS: Glucose,Whole Blood 269 mg/dL (70-110)
[2022-02-15] MEDS ORDERED: DARBEPOETIN ALFA 40 MCG/0.4 ML SYRINGE SQ SCH (20:00)
[2022-02-15 20:21] LABS: Glucose,Whole Blood 224 mg/dL (70-110)
[2022-02-15] MEDS: ARIPiprazole 5 MG TAB PO SCH (20:56)
[2022-02-15] MEDS: traZODone HCL 100 MG TAB PO PRN (21:38)
[2022-02-16] MEDS: CEFEPIME 1 GM in SODIUM CHLORIDE 0.9% 50 ML IVPB SCH (05:08)
[2022-02-16] MEDS: HYDROmorphone 0.5 MG/0.5 ML SYRINGE IVP PRN ×3 (05:13→11:46)
[2022-02-16] MEDS: LEVOTHYROXINE 100 MCG TAB PO SCH (06:19)
[2022-02-16 06:55] LABS: Glucose,Whole Blood 158 mg/dL (70-110)
[2022-02-16] MEDS: SYMBICORT 160-4.5 MCG INHALER INHALATION SCH (08:28)
--- NOTE | 2022-02-16 09:02 | P.PN ---
Subjective Progress Note Date: 02/14/22 Principal diagnosis: Urinary tract infection The patient is a 71-year-old female with a past medical history significant for rectal vesicular fistula history of recurrent UTI presented to the hospital with lower abdominal pressure burning urine concerning for symptomatic UTI failing outpatient Bactrim and have multiple antibiotic ALLERGIES. On today's evaluation that is 02/14/2022, patient did have a low-grade fever of 99.7F, patient denies having any chest pain shortness with occasional cough some improvement in his lower abdominal symptoms and burning of urine and no diarrhea Objective - Vital Signs Vital signs: Vital Signs Temp 99.2 F 02/14/22 08:00 Pulse 78 02/14/22 08:18 Resp 18 02/14/22 08:00 BP 138/63 02/14/22 08:00 Pulse Ox 93 L 02/14/22 08:09 FiO2 Intake & Output 02/13/22 02/14/22 02/14/22 18:59 06:59 18:59 Intake Total 200 Output Total 1480 1130 150 Balance -1480 -930 -150 Intake: Oral 200 Output: Urine 700 600 150 Stool 780 530 Other: Voiding Method External Catheter External Catheter # Voids 2 2 - Exam GENERAL DESCRIPTION: An elderly female lying in bed in no distress RESPIRATORY SYSTEM: Unlabored breathing , decreased breath sounds at bases HEART: S1 S2 regular rate and rhythm , ABDOMEN: Soft , no tenderness EXTREMITIES: No edema feet - Labs CBC & Chem 7: 02/15/22 11:42 02/15/22 06:40 Labs: Abnormal Lab Results - Last 24 Hours (Table) 02/13/22 02/13/22 02/14/22 Range/Units 16:23 20:44 07:07 POC Glucose (mg/dL) 209 H 135 H 140 H (70-110) mg/dL 02/14/22 Range/Units 11:37 POC Glucose (mg/dL) 221 H (70-110) mg/dL Microbiology - Last 24 Hours (Table) 02/12/22 23:19 Urine Culture - Preliminary Urine,Voided Assessment and Plan (1) Urinary tract infection Current Visit: Yes Status: Acute Code(s): N39.0 - URINARY TRACT INFECTION, SITE NOT SPECIFIED SNOMED Code(s): 52975447 Plan: 1patient presented to hospital with urinary burning's lower abdominal pain significantly positive UA concerning for a symptomatic UTI failing outpatient oral antibiotic therapy will need to call for the resistant gram-positive as well as gram-negative likely source of this UTI as the patient did have history of recurrent UTI and has been exposed to multiple antibiotic. 2patient also have a rectovesicular fistula could be contributing to these recurrent urinary tract infection. 3patient to continue with daptomycin 4 mg/kg along with cefepime 2 g every 12 hours while waiting for the culture to finalize. Time with Patient: Less than 30
--- NOTE | 2022-02-16 09:05 | P.PN ---
Subjective Progress Note Date: 02/15/22 Principal diagnosis: Urinary tract infection The patient is a 71-year-old female with a past medical history significant for possible colovesical fistula and diverticulitis status post diverting colostomy and history of recurrent UTI presented to the hospital with lower abdominal pressure burning urine concerning for symptomatic UTI failing outpatient Bactrim and have multiple antibiotic ALLERGIES. On today's evaluation that is 02/15/2022, patient is afebrile today, patient is breathing comfortably and is feeling slightly slightly better today, the patient denies having any chest pain shortness with occasional cough some improvement in his lower abdominal symptoms and burning of urine and no diarrhea Objective - Vital Signs Vital signs: Vital Signs Temp 98.3 F 02/15/22 14:15 Pulse 72 02/15/22 15:35 Resp 16 02/15/22 14:15 BP 131/56 02/15/22 14:15 Pulse Ox 90 L 02/15/22 14:15 FiO2 Intake & Output 02/14/22 02/15/22 02/15/22 18:59 06:59 18:59 Intake Total 50 Output Total 150 100 Balance -150 -50 Intake: Intake, IV Titration 50 Amount Cefepime 1 gm In Sodium 50 Chloride 0.9% 50 ml @ 12. 5 mls/hr IVPB Q12H [facility] Rx #:[id number] Output: Urine 150 Stool 100 Other: Voiding Method External Catheter External Catheter External Catheter # Voids 2 # Bowel Movements 3 - Exam GENERAL DESCRIPTION: An elderly female lying in bed in no distress RESPIRATORY SYSTEM: Unlabored breathing , decreased breath sounds at bases HEART: S1 S2 regular rate and rhythm , ABDOMEN: Soft , no tenderness EXTREMITIES: No edema feet - Labs CBC & Chem 7: 02/15/22 11:42 02/15/22 06:40 Labs: Abnormal Lab Results - Last 24 Hours (Table) 02/14/22 02/14/22 02/14/22 Range/Units 15:12 15:12 17:07 RBC (4.10-5.20) X 10*6/uL Hgb (12.0-15.0) g/dL Hct (37.2-46.3) % MCH (27.0-32.0) pg MCHC (32.0-37.0) g/dL RDW (11.5-14.5) % Lymphocytes # (0.90-5.00) X 10*3/uL Retic Count (0.5-2.0) % Sodium (135-145) mmol/L Potassium (3.5-5.5) mmol/L Carbon Dioxide (20.0-27.5) mmol/L BUN (9.0-27.0) mg/dL Est GFR (CKD-EPI)AfAm (60.0-200.0) Est GFR (CKD-EPI)NonAf (60.0-200.0) BUN/Creatinine Ratio (12.00-20.00) Ratio Glucose (70-110) mg/dL POC Glucose (mg/dL) 180 H (70-110) mg/dL Calcium (8.7-10.3) mg/dL Iron 39 L (50-170) ug/dL TIBC 193 L (228-460) ug/dL Transferrin 138.0 L (204.0-354.0) mg/dL Ferritin 2674.0 H (10.0-291.0) ng/mL Alkaline Phosphatase (41-126) U/L Total Protein (6.2-8.2) g/dL Albumin (3.8-4.9) g/dL Albumin/Globulin Ratio (1.60-3.17) g/dL Vitamin B12 993.0 H (200.0-944.0) pg/mL RBC Folate 874 H (280 - 791) ng/mL 02/14/22 02/15/22 02/15/22 Range/Units 20:19 06:40 06:40 RBC 2.62 L (4.10-5.20) X 10*6/uL Hgb 6.6 L* (12.0-15.0) g/dL Hct 25.4 L (37.2-46.3) % MCH 25.2 L (27.0-32.0) pg MCHC 26.0 L (32.0-37.0) g/dL RDW 17.4 H (11.5-14.5) % Lymphocytes # 0.64 L (0.90-5.00) X 10*3/uL Retic Count (0.5-2.0) % Sodium 134 L (135-145) mmol/L Potassium 3.4 L (3.5-5.5) mmol/L Carbon Dioxide 18.1 L (20.0-27.5) mmol/L BUN 31.3 H (9.0-27.0) mg/dL Est GFR (CKD-EPI)AfAm 43.4 L (60.0-200.0) Est GFR (CKD-EPI)NonAf 37.4 L (60.0-200.0) BUN/Creatinine Ratio 22.36 H (12.00-20.00) Ratio Glucose 155 H (70-110) mg/dL POC Glucose (mg/dL) 159 H (70-110) mg/dL Calcium 8.1 L (8.7-10.3) mg/dL Iron (50-170) ug/dL TIBC (228-460) ug/dL Transferrin (204.0-354.0) mg/dL Ferritin (10.0-291.0) ng/mL Alkaline Phosphatase 129 H (41-126) U/L Total Protein 5.3 L (6.2-8.2) g/dL Albumin 2.5 L (3.8-4.9) g/dL Albumin/Globulin Ratio 0.89 L (1.60-3.17) g/dL Vitamin B12 (200.0-944.0) pg/mL RBC Folate (280 - 791) ng/mL 02/15/22 02/15/22 02/15/22 Range/Units 06:40 07:19 11:42 RBC 2.70 L (4.10-5.20) X 10*6/uL Hgb 7.4 L (12.0-15.0) g/dL Hct 26.3 L (37.2-46.3) % MCH (27.0-32.0) pg MCHC 28.1 L (32.0-37.0) g/dL RDW 16.8 H (11.5-14.5) % Lymphocytes # 0.6 L (0.90-5.00) X 10*3/uL Retic Count 3.0 H (0.5-2.0) % Sodium (135-145) mmol/L Potassium (3.5-5.5) mmol/L Carbon Dioxide (20.0-27.5) mmol/L BUN (9.0-27.0) mg/dL Est GFR (CKD-EPI)AfAm (60.0-200.0) Est GFR (CKD-EPI)NonAf (60.0-200.0) BUN/Creatinine Ratio (12.00-20.00) Ratio Glucose (70-110) mg/dL POC Glucose (mg/dL) 166 H (70-110) mg/dL Calcium (8.7-10.3) mg/dL Iron (50-170) ug/dL TIBC (228-460) ug/dL Transferrin (204.0-354.0) mg/dL Ferritin (10.0-291.0) ng/mL Alkaline Phosphatase (41-126) U/L Total Protein (6.2-8.2) g/dL Albumin (3.8-4.9) g/dL Albumin/Globulin Ratio (1.60-3.17) g/dL Vitamin B12 (200.0-944.0) pg/mL RBC Folate (280 - 791) ng/mL 02/15/22 02/15/22 Range/Units 11:50 16:15 RBC (4.10-5.20) X 10*6/uL Hgb (12.0-15.0) g/dL Hct (37.2-46.3) % MCH (27.0-32.0) pg MCHC (32.0-37.0) g/dL RDW (11.5-14.5) % Lymphocytes # (0.90-5.00) X 10*3/uL Retic Count (0.5-2.0) % Sodium (135-145) mmol/L Potassium (3.5-5.5) mmol/L Carbon Dioxide (20.0-27.5) mmol/L BUN (9.0-27.0) mg/dL Est GFR (CKD-EPI)AfAm (60.0-200.0) Est GFR (CKD-EPI)NonAf (60.0-200.0) BUN/Creatinine Ratio (12.00-20.00) Ratio Glucose (70-110) mg/dL POC Glucose (mg/dL) 163 H 269 H (70-110) mg/dL Calcium (8.7-10.3) mg/dL Iron (50-170) ug/dL TIBC (228-460) ug/dL Transferrin (204.0-354.0) mg/dL Ferritin (10.0-291.0) ng/mL Alkaline Phosphatase (41-126) U/L Total Protein (6.2-8.2) g/dL Albumin (3.8-4.9) g/dL Albumin/Globulin Ratio (1.60-3.17) g/dL Vitamin B12 (200.0-944.0) pg/mL RBC Folate (280 - 791) ng/mL Microbiology - Last 24 Hours (Table) 02/12/22 23:19 Urine Culture - Final Urine,Voided Klebsiella pneumoniae Escherichia coli Assessment and Plan (1) Urinary tract infection Current Visit: Yes Status: Acute Code(s): N39.0 - URINARY TRACT INFECTION, SITE NOT SPECIFIED SNOMED Code(s): 05128001 Plan: 1patient presented to hospital with urinary burning's lower abdominal pain significantly positive UA concerning for a symptomatic UTI failing outpatient oral antibiotic therapy, urine culture had been finalized with Klebsiella and E. coli which is sensitive pathogen 2patient to continue cefepime and we'll discontinue daptomycin plan is to finish therapy with oral Ceftin on discharge Time with Patient: Less than 30
[2022-02-16] MEDS: CITALOPRAM HYDROBROMIDE 20 MG TAB PO SCH (09:55)
[2022-02-16] MEDS: PHENAZOPYRIDINE 100 MG TAB PO SCH (09:56)
[2022-02-16] MEDS: METOPROLOL SUCCINATE (ER) 25 MG TAB.ER.24H PO SCH ×2 (09:59→10:04)
[2022-02-16] MEDS: PANTOPRAZOLE 40 MG TABLET PO SCH (10:01)
[2022-02-16] MEDS: MAGNESIUM OXIDE 400 MG TAB PO SCH (10:02)
[2022-02-16] MEDS: INSULIN ASPART (NovoLOG) 100 UNIT/ML VIAL SQ SCH ×2 (10:02→13:17)
[2022-02-16 10:35] LABS: Basophils # (A) 0.01 X 10*3/uL (0.00-0.10); Basophils % (A) 0.2 %; Eosinophils # (A) 0.17 X 10*3/uL (0.04-0.35); Eosinophils % (A) 2.8 %; HCT 26.2 % (37.2-46.3); HGB 6.7 g/dL (12.0-15.0); Immature Grans, Automated 1.7 %; Lymphocytes # (A) 0.66 X 10*3/uL (0.90-5.00); MCH 25.2 pg (27.0-32.0); MCHC 25.6 g/dL (32.0-37.0); MCV 98.5 fL (80.0-97.0); Mean Platelet Volume 9.4 fL (9.5-12.2); Monocytes # (A) 0.67 X 10*3/uL (0.20-1.00); Monocytes % (A) 11.2 %; NRBC Per 100 WBC 0 /100 WBCS (0.0-0.0); Neutrophils # (A) 4.38 X 10*3/uL (1.80-7.70); Neutrophils % (A) 73.1 %; Platelet Count 331 X 10*3/uL (140-440); RBC 2.66 X 10*6/uL (4.10-5.20); RDW 17.7 % (11.5-14.5); WBC 5.99 X 10*3/uL (4.50-10.00)
[2022-02-16 10:46] LABS: Protein, Total 5.4 g/dL (6.2-8.2)
--- NOTE | 2022-02-16 11:13 | P.DS ---
Providers Date of admission: 02/13/22 04:28 Expected date of discharge: 02/16/22 Attending physician: Mark Manzo MD Consults: 02/13/22 04:33 Consult Physician Routine Consulting Provider: Mayco Jaffe Consult Reason/Comments: UTI with failed outpatient treatment Do you want consulting provider notified?: Yes, Notify in am 02/14/22 14:45 Consult Physician Routine Consulting Provider: Bimal Martell Consult Reason/Comments: Anemia Do you want consulting provider notified?: Yes 02/14/22 14:47 Consult Physician Routine Consulting Provider: Lisa Rodriguez Consult Reason/Comments: Acute kidney injury Do you want consulting provider notified?: Yes 02/15/22 10:31 Consult Physician Routine Consulting Provider: Abhijeet Harris Consult Reason/Comments: evaluation for rectovesicular fistula Do you want consulting provider notified?: Yes Primary care physician: HORTENCIA Tobin Hospital Course: 71 years old female who presented to the emergency department for treatment for urinary tract infection. Apparently she was diagnosed with urinary tract infection as an outpatient and was started on oral antibiotics by primary care physician, patient was called by the primary care physician office and she was told that her urine culture is growing bacteria that is not treatable with oral antibiotics and she needs to go to emergency department for treatment with IV antibiotic. 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 Patient was seen in emergency department and was started on IV daptomycin otherwise patient remains stable vital signs stable she is clinically stable, Hospital medicine was consulted for admission to hospital and further care with a plan for infection disease evaluation Physical examination on General: non toxic, no acute distress, alert oriented to time place and person Head: atraumatic, normocephalic, symmetric Eyes: no lid lesion], anicteric sclera Mouth: no lip lesion, mucus membranes moist Cardiovascular: S1S2 reg rate and rhythm, no murmur, no gallop Lungs: Bilateral equal air entry, no wheezing no rhonchi no crackles. Abdominal: soft, nondistended, colostomy in place Ext: no gross muscle atrophy, no edema extremities warm to suppose a positive Neuro: Alert oriented to time place and person, exam grossly nonfocal Psych: Mood and affect appropriate, patient not so certain Skin exam: No rashes no jaundice. Detailed problem list: Klebsiella pneumoniae and E. 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 Ceftin 500 mg twice daily for 10 days after discharge Acute kidney injury Improved with fluid Likely prerenal component, hold nephrotoxin Holding Lasix during this admission Renal ultrasound without hydronephrosis Decrease Lasix to 20 mg daily Stage III chronic kidney disease Acute hyponatremia Improving Likely in the setting of dehydration Carefully hydrate watch for fluid overload Monitor renal function in sodium levels daily History of chronic diastolic congestive heart failure documented EF 50-55% per last discharge summary Dosnt seem to be in exacerbation / no evidence of fluid overload Decreased Lasix to 20 mg daily Chronic respiratory failure due to COPD On 4 L of oxygen at home Currently at baseline requirement for oxygen Type 2 diabetes mellitus And metformin at home A1c 5.1 Hold oral hypoglycemic Continues on sliding scale Acute on Chronic iron deficiency anemia -Per hematology oncology anemia of chronic inflammation. -Normal B12 - patient hemoglobin 6.4 today she'll be transfused 1 unit of packed RBCs prior to discharge -Negative stool focal blood -Patient known to Dr. Martell -Hematology consulted -Follow up with hematology as an outpatient -Resume iron supplements History of anxiety and depression Continue Celexa History of hypothyroidism Continue levothyroxine History of hypertension Continue metoprolol History of GERD Continue Protonix Time spent in discharge process 33 minutes Patient Condition at Discharge: Stable Plan - Discharge Summary Discharge Rx Participant: No New Discharge Prescriptions: New cefUROXime axetiL [Cefuroxime] 500 mg PO BID 10 Days #20 tab Magnesium Oxide [Mag-Ox] 400 mg PO DAILY #30 tablet Continue metFORMIN HCL [Glucophage] 1,000 mg PO BID-W/MEALS ARIPiprazole [Abilify] 5 mg PO HS Atorvastatin [Lipitor] 40 mg PO DAILY #30 tab Levothyroxine Sodium [Synthroid] 200 mcg PO DAILY HYDROcodone/APAP 7.5-325MG [[place] 7.5-325] 1 tab PO Q6H PRN #12 tab PRN Reason: Pain traZODone HCL 100 mg PO HS PRN PRN Reason: Sedation Ferrous Sulfate [Iron (65 MG Elemental)] 325 mg PO Q48H Pantoprazole Sodium [Protonix] 40 mg PO AC-BID Cholecalciferol [Vitamin D3 (25 Mcg = 1000 Iu)] 25 mcg PO DAILY Albuterol Sulfate [Albuterol Sulfate Hfa] 2 puff PO RT-Q6H PRN PRN Reason: Shortness Of Breath Albuterol Nebulized [Ventolin Nebulized] 2.5 mg INHALATION RT-Q6H PRN PRN Reason: Shortness Of Breath Citalopram Hydrobromide [CeleXA] 40 mg PO DAILY Metoprolol Succinate [Toprol XL] 25 mg PO DAILY Budesonide-Formot 160-4.5 Mcg [Symbicort 160-4.5 Mcg Inhaler] 2 puff INHALATION RT-BID Ipratropium-Albuterol Nebulize [Duoneb 0.5 mg-3 mg/3 ml Soln] 3 ml INHALATION RT-QID allopurinoL [Zyloprim] 100 mg PO DAILY Discontinued Magnesium Oxide [Mag-Ox] 400 mg PO DAILY Furosemide [Lasix] 40 mg PO DAILY Discharge Medication List ARIPiprazole [Abilify] 5 mg PO HS 02/07/18 [History] metFORMIN HCL [Glucophage] 1,000 mg PO BID-W/MEALS 02/07/18 [History] Atorvastatin [Lipitor] 40 mg PO DAILY #30 tab 09/10/18 [Rx] Levothyroxine Sodium [Synthroid] 200 mcg PO DAILY 09/03/19 [History] HYDROcodone/APAP 7.5-325MG [[place] 7.5-325] 1 tab PO Q6H PRN #12 tab 03/27/20 [Rx] traZODone HCL 100 mg PO HS PRN 05/15/20 [History] Albuterol Nebulized [Ventolin Nebulized] 2.5 mg INHALATION RT-Q6H PRN 10/19/21 [History] Albuterol Sulfate [Albuterol Sulfate Hfa] 2 puff PO RT-Q6H PRN 10/19/21 [History] Cholecalciferol [Vitamin D3 (25 Mcg = 1000 Iu)] 25 mcg PO DAILY 10/19/21 [History] Ferrous Sulfate [Iron (65 MG Elemental)] 325 mg PO Q48H 10/19/21 [History] Pantoprazole Sodium [Protonix] 40 mg PO AC-BID 10/19/21 [History] Metoprolol Succinate [Toprol XL] 25 mg PO DAILY 11/07/21 [History] Citalopram Hydrobromide [CeleXA] 40 mg PO DAILY 01/30/22 [History] Budesonide-Formot 160-4.5 Mcg [Symbicort 160-4.5 Mcg Inhaler] 2 puff INHALATION RT-BID 02/13/22 [History] Ipratropium-Albuterol Nebulize [Duoneb 0.5 mg-3 mg/3 ml Soln] 3 ml INHALATION RT-QID 02/13/22 [History] allopurinoL [Zyloprim] 100 mg PO DAILY 02/13/22 [History] Magnesium Oxide [Mag-Ox] 400 mg PO DAILY #30 tablet 02/16/22 [Rx] cefUROXime axetiL [Cefuroxime] 500 mg PO BID 10 Days #20 tab 02/16/22 [Rx] Follow up Appointment(s)/Referral(s): [facility] [Primary Care Provider] - 1-2 days [facility] [NON-STAFF] - As Needed Discharge Disposition: HOME WITH HOME HEALTH SERVICES
[2022-02-16 11:18] LABS: Glucose,Whole Blood 220 mg/dL (70-110)
[2022-02-16 11:56] LABS: African American GFR (CKD) 39.9 (60.0-200.0); Albumin 2.5 g/dL (3.8-4.9); Albumin/Globulin Ratio 0.86 (1.60-3.17); Anion Gap 13.1 mmol/L (10.00-18.00); BUN/Creat Ratio 18.6 Ratio (12.00-20.00); Blood Urea Nitrogen 27.9 mg/dL (9.0-27.0); Calcium 8.1 mg/dL (8.7-10.3); Carbon Dioxide 16.9 mmol/L (20.0-27.5); Globulin 2.9 g/dL (1.6-3.3); Non-African American GFR(CKD) 34.4 (60.0-200.0); Potassium 3.7 mmol/L (3.5-5.5); Total Bilirubin 0.3 mg/dL (0.30-1.20); Total Protein 5.4 g/dL (6.2-8.2)
[2022-02-16 13:34] LABS: Free Kappa Lt Chain Qnt, Serum 69.67 mg/dL (0.33-1.94); Free Lambda Lt Chain Qnt, Seru 8.34 mg/dL (0.57-2.63)
--- NOTE | 2022-02-16 13:41 | P.PN ---
Subjective Patient is seen for follow-up for acute kidney injury. Renal function has been improving. Patient is being treated for urinary tract infection. currently not on any IV fluids. [place] blood pressure had been low on initial admission currently improved Plans for discharge today. Objective - Vital Signs Vital signs: Vital Signs Temp 97.4 F L 02/16/22 08:00 Pulse 77 02/16/22 08:00 Resp 18 02/16/22 08:00 BP 104/58 02/16/22 08:00 Pulse Ox 90 L 02/16/22 08:00 FiO2 Intake & Output 02/15/22 02/16/22 02/16/22 18:59 06:59 18:59 Output Total 100 Balance -100 Output: Stool 100 Other: Voiding Method External Catheter External Catheter Incontinent # Voids 1 2 # Bowel Movements 3 1 - Exam Awake, comfortable, not in any acute distress Examination of the heart S1 and S2 Examination of the lungs bilateral breath sounds are heard with decreased breath sounds at the bases Abdomen is soft nontender obese Examination of lower extremity shows trace edema bilaterally [employer] exam grossly intact - Labs CBC & Chem 7: 02/16/22 06:20 02/16/22 06:20 Labs: Abnormal Lab Results - Last 24 Hours (Table) 02/15/22 02/15/22 02/15/22 Range/Units 06:40 06:40 06:40 RBC (4.10-5.20) X 10*6/uL Hgb (12.0-15.0) g/dL Hct (37.2-46.3) % MCV (80.0-97.0) fL MCH (27.0-32.0) pg MCHC (32.0-37.0) g/dL RDW (11.5-14.5) % MPV (9.5-12.2) fL Immature Gran # (0.00-0.04) X 10*3/uL Lymphocytes # (0.90-5.00) X 10*3/uL Retic Count 3.0 H (0.5-2.0) % Haptoglobin 214.0 H (31.2-198.0) mg/dL Sodium (135-145) mmol/L Carbon Dioxide (20.0-27.5) mmol/L BUN (9.0-27.0) mg/dL Est GFR (CKD-EPI)AfAm (60.0-200.0) Est GFR (CKD-EPI)NonAf (60.0-200.0) Glucose (70-110) mg/dL POC Glucose (mg/dL) (70-110) mg/dL Calcium (8.7-10.3) mg/dL Alkaline Phosphatase (41-126) U/L Lactate Dehydrogenase 261 H (120-246) U/L Total Protein (6.2-8.2) g/dL Total Protein (PEP) (6.2-8.2) g/dL Albumin (3.8-4.9) g/dL Albumin/Globulin Ratio (1.60-3.17) g/dL Free [place] LC, Quant (0.33-1.94) mg/dL Free Lambda LC, Quant (0.57-2.63) mg/dL Crossmatch 02/15/22 02/15/22 02/16/22 Range/Units 16:15 20:19 06:20 RBC (4.10-5.20) X 10*6/uL Hgb (12.0-15.0) g/dL Hct (37.2-46.3) % MCV (80.0-97.0) fL MCH (27.0-32.0) pg MCHC (32.0-37.0) g/dL RDW (11.5-14.5) % MPV (9.5-12.2) fL Immature Gran # (0.00-0.04) X 10*3/uL Lymphocytes # (0.90-5.00) X 10*3/uL Retic Count (0.5-2.0) % Haptoglobin (31.2-198.0) mg/dL Sodium (135-145) mmol/L Carbon Dioxide (20.0-27.5) mmol/L BUN (9.0-27.0) mg/dL Est GFR (CKD-EPI)AfAm (60.0-200.0) Est GFR (CKD-EPI)NonAf (60.0-200.0) Glucose (70-110) mg/dL POC Glucose (mg/dL) 269 H 224 H (70-110) mg/dL Calcium (8.7-10.3) mg/dL Alkaline Phosphatase (41-126) U/L Lactate Dehydrogenase (120-246) U/L Total Protein (6.2-8.2) g/dL Total Protein (PEP) 5.4 L (6.2-8.2) g/dL Albumin (3.8-4.9) g/dL Albumin/Globulin Ratio (1.60-3.17) g/dL Free [place] LC, Quant 69.67 H (0.33-1.94) mg/dL Free [place] LC, Quant 8.34 H (0.57-2.63) mg/dL Crossmatch 02/16/22 02/16/22 02/16/22 Range/Units 06:20 06:20 06:54 RBC 2.66 L (4.10-5.20) X 10*6/uL Hgb 6.7 L* (12.0-15.0) g/dL Hct 26.2 L (37.2-46.3) % MCV 98.5 H (80.0-97.0) fL MCH 25.2 L (27.0-32.0) pg MCHC 25.6 L (32.0-37.0) g/dL RDW 17.7 H (11.5-14.5) % MPV 9.4 L (9.5-12.2) fL Immature Gran # 0.10 H (0.00-0.04) X 10*3/uL Lymphocytes # 0.66 L (0.90-5.00) X 10*3/uL Retic Count (0.5-2.0) % Haptoglobin (31.2-198.0) mg/dL Sodium 133 L (135-145) mmol/L Carbon Dioxide 16.9 L (20.0-27.5) mmol/L BUN 27.9 H (9.0-27.0) mg/dL Est GFR (CKD-EPI)AfAm 39.9 L (60.0-200.0) Est GFR (CKD-EPI)NonAf 34.4 L (60.0-200.0) Glucose 139 H (70-110) mg/dL POC Glucose (mg/dL) 158 H (70-110) mg/dL Calcium 8.1 L (8.7-10.3) mg/dL Alkaline Phosphatase 132 H (41-126) U/L Lactate Dehydrogenase (120-246) U/L Total Protein 5.4 L (6.2-8.2) g/dL Total Protein (PEP) (6.2-8.2) g/dL Albumin 2.5 L (3.8-4.9) g/dL Albumin/Globulin Ratio 0.86 L (1.60-3.17) g/dL Free [place] LC, Quant (0.33-1.94) mg/dL Free [place] LC, Quant (0.57-2.63) mg/dL Crossmatch 02/16/22 02/16/22 Range/Units 11:17 11:51 RBC (4.10-5.20) X 10*6/uL Hgb (12.0-15.0) g/dL Hct (37.2-46.3) % MCV (80.0-97.0) fL MCH (27.0-32.0) pg MCHC (32.0-37.0) g/dL RDW (11.5-14.5) % MPV (9.5-12.2) fL Immature Gran # (0.00-0.04) X 10*3/uL Lymphocytes # (0.90-5.00) X 10*3/uL Retic Count (0.5-2.0) % Haptoglobin (31.2-198.0) mg/dL Sodium (135-145) mmol/L Carbon Dioxide (20.0-27.5) mmol/L BUN (9.0-27.0) mg/dL Est GFR (CKD-EPI)AfAm (60.0-200.0) Est GFR (CKD-EPI)NonAf (60.0-200.0) Glucose (70-110) mg/dL POC Glucose (mg/dL) 220 H (70-110) mg/dL Calcium (8.7-10.3) mg/dL Alkaline Phosphatase (41-126) U/L Lactate Dehydrogenase (120-246) U/L Total Protein (6.2-8.2) g/dL Total Protein (PEP) (6.2-8.2) g/dL Albumin (3.8-4.9) g/dL Albumin/Globulin Ratio (1.60-3.17) g/dL Free [place] LC, Quant (0.33-1.94) mg/dL Free [place] LC, Quant (0.57-2.63) mg/dL Crossmatch See Detail Assessment and Plan Assessment: 1. Acute kidney injury associated with underlying infection and borderline blood pressures. Currently nonoliguric and improved. Rule out urine retention. No obstruction noted on ultrasound 2. Chronic kidney disease NKF stage III a previous creatinine as low as 1.2-1.4 mg/dL. Etiology likely nephrosclerosis. Current UA has significant proteinuria but patient has significant pyuria an underlying infection as well. No obstr uction noted on ultrasound 3. UTI with urine culture growing Klebsiella pneumonia and E. coli maintained on antibiotics, being followed by ID 4. History of chronic diastolic CHF with ejection fraction 50-55% 5. History of hypothyroidism Plan: Continue to encourage increase oral intake Continue with antibiotics Patient will need follow-up for CK D as outpatient.
[2022-02-16 15:08] VITALS: BP 159/60; PULSE 78; RESP 16; TEMP 98.1
--- NOTE | 2022-02-16 17:16 | P.PN ---
Subjective Progress Note Date: 02/16/22 Principal diagnosis: anemia CKD and iron def In f/u pt reports feeling fine, no c/o, eating and drinking, no bleeding Objective - Vital Signs Vital signs: Vital Signs Temp 98.1 F 02/16/22 15:07 Pulse 78 02/16/22 15:07 Resp 16 02/16/22 15:07 BP 159/60 02/16/22 15:07 Pulse Ox 94 L 02/16/22 14:26 FiO2 Intake & Output 02/15/22 02/16/22 02/16/22 18:59 06:59 18:59 Intake Total 255 Output Total 100 Balance -100 255 Intake: Blood Product 255 Rc Pheresis 2 As3 Unit 255 [id number] Output: Stool 100 Other: Voiding Method External Catheter External Catheter Incontinent # Voids 1 2 # Bowel Movements 3 1 - Constitutional General appearance: Present: cooperative, no acute distress, obese - EENT Eyes: Present: anicteric sclerae, EOMI ENT: Present: hearing grossly normal - Respiratory Respiratory: bilateral: CTA (very congested sounding cough) - Cardiovascular Rhythm: regular Abnormal Heart Sounds: Present: systolic murmur - Peripheral edema leg Peripheral Edema: bilateral: None - Gastrointestinal General gastrointestinal: Present: normal bowel sounds, soft - Neurologic Neurologic: Present: CNII-XII intact - Musculoskeletal Musculoskeletal: Present: strength equal bilaterally - Psychiatric Psychiatric: Present: A&O x's 3, appropriate affect, intact judgment & insight - Labs CBC & Chem 7: 02/16/22 06:20 02/16/22 06:20 Labs: Abnormal Lab Results - Last 24 Hours (Table) 02/15/22 02/15/22 02/15/22 Range/Units 06:40 06:40 20:19 RBC (4.10-5.20) X 10*6/uL Hgb (12.0-15.0) g/dL Hct (37.2-46.3) % MCV (80.0-97.0) fL MCH (27.0-32.0) pg MCHC (32.0-37.0) g/dL RDW (11.5-14.5) % MPV (9.5-12.2) fL Immature Gran # (0.00-0.04) X 10*3/uL Lymphocytes # (0.90-5.00) X 10*3/uL Haptoglobin 214.0 H (31.2-198.0) mg/dL Sodium (135-145) mmol/L Carbon Dioxide (20.0-27.5) mmol/L BUN (9.0-27.0) mg/dL Est GFR (CKD-EPI)AfAm (60.0-200.0) Est GFR (CKD-EPI)NonAf (60.0-200.0) Glucose (70-110) mg/dL POC Glucose (mg/dL) 224 H (70-110) mg/dL Calcium (8.7-10.3) mg/dL Alkaline Phosphatase (41-126) U/L Lactate Dehydrogenase 261 H (120-246) U/L Total Protein (6.2-8.2) g/dL Total Protein (PEP) (6.2-8.2) g/dL Albumin (3.8-4.9) g/dL Albumin/Globulin Ratio (1.60-3.17) g/dL Free [place] LC, Quant (0.33-1.94) mg/dL Free L[place] LC, Quant (0.57-2.63) mg/dL Crossmatch 02/16/22 02/16/22 02/16/22 Range/Units 06:20 06:20 06:20 RBC 2.66 L (4.10-5.20) X 10*6/uL Hgb 6.7 L* (12.0-15.0) g/dL Hct 26.2 L (37.2-46.3) % MCV 98.5 H (80.0-97.0) fL MCH 25.2 L (27.0-32.0) pg MCHC 25.6 L (32.0-37.0) g/dL RDW 17.7 H (11.5-14.5) % MPV 9.4 L (9.5-12.2) fL Immature Gran # 0.10 H (0.00-0.04) X 10*3/uL Lymphocytes # 0.66 L (0.90-5.00) X 10*3/uL Haptoglobin (31.2-198.0) mg/dL Sodium 133 L (135-145) mmol/L Carbon Dioxide 16.9 L (20.0-27.5) mmol/L BUN 27.9 H (9.0-27.0) mg/dL Est GFR (CKD-EPI)AfAm 39.9 L (60.0-200.0) Est GFR (CKD-EPI)NonAf 34.4 L (60.0-200.0) Glucose 139 H (70-110) mg/dL POC Glucose (mg/dL) (70-110) mg/dL Calcium 8.1 L (8.7-10.3) mg/dL Alkaline Phosphatase 132 H (41-126) U/L Lactate Dehydrogenase (120-246) U/L Total Protein 5.4 L (6.2-8.2) g/dL Total Protein (PEP) 5.4 L (6.2-8.2) g/dL Albumin 2.5 L (3.8-4.9) g/dL Albumin/Globulin Ratio 0.86 L (1.60-3.17) g/dL Free [place] LC, Quant 69.67 H (0.33-1.94) mg/dL Free [place] LC, Quant 8.34 H (0.57-2.63) mg/dL Crossmatch 02/16/22 02/16/22 02/16/22 Range/Units 06:54 11:17 11:51 RBC (4.10-5.20) X 10*6/uL Hgb (12.0-15.0) g/dL Hct (37.2-46.3) % MCV (80.0-97.0) fL MCH (27.0-32.0) pg MCHC (32.0-37.0) g/dL RDW (11.5-14.5) % MPV (9.5-12.2) fL Immature Gran # (0.00-0.04) X 10*3/uL Lymphocytes # (0.90-5.00) X 10*3/uL Haptoglobin (31.2-198.0) mg/dL Sodium (135-145) mmol/L Carbon Dioxide (20.0-27.5) mmol/L BUN (9.0-27.0) mg/dL Est GFR (CKD-EPI)AfAm (60.0-200.0) Est GFR (CKD-EPI)NonAf (60.0-200.0) Glucose (70-110) mg/dL POC Glucose (mg/dL) 158 H 220 H (70-110) mg/dL Calcium (8.7-10.3) mg/dL Alkaline Phosphatase (41-126) U/L Lactate Dehydrogenase (120-246) U/L Total Protein (6.2-8.2) g/dL Total Protein (PEP) (6.2-8.2) g/dL Albumin (3.8-4.9) g/dL Albumin/Globulin Ratio (1.60-3.17) g/dL Free [place] LC, Quant (0.33-1.94) mg/dL Free Lambda LC, Quant (0.57-2.63) mg/dL Crossmatch See Detail Assessment and Plan (1) Anemia Status: Chronic Priority: High Code(s): D64.9 - ANEMIA, UNSPECIFIED SNOMED Code(s): 962977026 (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 Now, acute infection and abx. She also missed her last 2 doses of epo. Her Hgb did drop. 1 unit ordered today for a Hgb of 6.7. She received epo yesterday Current labs consistent with anemia of inflammation Addition labs ordered for evaluation. [place] [employer] significantly elevated, still pending SPEP and immunofixation. Will sched f/u and contact her. Attests: I have seen and examined pt, performed H&P, developed impression and plan of care. Discussed with dictator, agree with dictation, documented as a scribe
[2022-02-19 06:13] LABS: Albumin 2.05 g/dL (3.80-4.90)
== END 2022-02-16 16:04 | disposition home health service (06) | DRG 872 ==
LOC: EC 22:03 → 4SSUR 02-13 04:28
PROVIDERS: ADMIT Internal Medicine; ATTEND Internal Medicine
DX: A41.50 Gram-negative sepsis, unspecified (principal); E87.1 Hypo-osmolality and hyponatremia; N17.9 Acute kidney failure, unspecified; I50.32 Chronic diastolic (congestive) heart failure; J96.10 Chronic respiratory failure, unspecified whether with hypoxia or hypercapnia; I13.0 Hypertensive heart and chronic kidney disease with heart failure and stage 1 through stage 4 chronic kidney disease, or unspecified chronic kidney disease; N32.1 Vesicointestinal fistula; N13.6 Pyonephrosis; A41.51 Sepsis due to Escherichia coli [E. coli]; D63.8 Anemia in other chronic diseases classified elsewhere; R29.6 Repeated falls; J43.9 Emphysema, unspecified; N18.30 Chronic kidney disease, stage 3 unspecified; E11.22 Type 2 diabetes mellitus with diabetic chronic kidney disease; Z93.3 Colostomy status; D50.9 Iron deficiency anemia, unspecified; E03.9 Hypothyroidism, unspecified; E78.5 Hyperlipidemia, unspecified; G89.29 Other chronic pain; M54.9 Dorsalgia, unspecified; H40.9 Unspecified glaucoma; M51.36 Other intervertebral disc degeneration, lumbar region; E86.0 Dehydration; F32.A Depression, unspecified; F41.9 Anxiety disorder, unspecified; K29.70 Gastritis, unspecified, without bleeding; K29.80 Duodenitis without bleeding; Z79.51 Long term (current) use of inhaled steroids; Z79.82 Long term (current) use of aspirin; Z79.84 Long term (current) use of oral hypoglycemic drugs; Z79.890 Hormone replacement therapy; Z79.899 Other long term (current) drug therapy; Z80.8 Family history of malignant neoplasm of other organs or systems; Z82.5 Family history of asthma and other chronic lower respiratory diseases; Z85.828 Personal history of other malignant neoplasm of skin; Z87.11 Personal history of peptic ulcer disease; Z87.440 Personal history of urinary (tract) infections; Z87.442 Personal history of urinary calculi; Z87.891 Personal history of nicotine dependence; Z91.81 History of falling; Z98.51 Tubal ligation status; Z88.0 Allergy status to penicillin; Z88.2 Allergy status to sulfonamides; Z88.8 Allergy status to other drugs, medicaments and biological substances; Z91.040 Latex allergy status; Z91.041 Radiographic dye allergy status; Z88.1 Allergy status to other antibiotic agents; Z90.49 Acquired absence of other specified parts of digestive tract
CPT/HCPCS: 36415; 76770; 80053; 81001; 82272; 82607; 82728; 82747; 83010; 83036; 83540; 83550; 83605; 83615; 83883; 84165; 85025; 85045; 86140; 86334; 86850; 86900; 86901; 86920; 87077; 87086; 87186; 94640; 94760; 96365; 96366; 99285

== ENCOUNTER 2022-03-18 17:13 | Emergency (ER) | payer MEDICARE, OTHER ==
[2022-03-18 17:21] VITALS: RESP 20; TEMP 97.9
[2022-03-18 18:45] LABS: Anisocytosis Slight; Basophils % (A) 0 %; Eosinophils # (A) 0.3 k/uL (0-0.7); Eosinophils % (A) 3 %; HCT 21.8 % (34.0-46.0); Hypochromasia Marked; Lymphocytes # (A) 0.7 k/uL (1.0-4.8); Lymphocytes % (A) 6 %; MCH 28.8 pg (25.0-35.0); MCHC 28.9 g/dL (31.0-37.0); MCV 99.6 fL (80.0-100.0); Macrocytosis Slight; Mean Platelet Volume 7.4; Monocytes # (A) 0.4 k/uL (0-1.0); Monocytes % (A) 3 %; Neutrophils # (A) 9.2 k/uL (1.3-7.7); Neutrophils % (A) 86 %; Platelet Count 428 k/uL (150-450); RBC 2.18 m/uL (3.80-5.40); RDW 17.2 % (11.5-15.5); WBC 10.7 k/uL (3.8-10.6)
[2022-03-18 18:49] LABS: Partial Thromboplastin Time 25.8 sec (22.0-30.0); Prothrombin Time 10.9 sec (9.0-12.0)
[2022-03-18 19:00] LABS: HGB 6.3 gm/dL (11.4-16.0)
--- NOTE | 2022-03-18 19:44 | ED ---
General Adult HPI - General Chief complaint: Recheck/Abnormal Lab/Rx Stated complaint: Low Hemoglobin Time Seen by Provider: 03/18/22 17:20 Source: patient Mode of arrival: ambulatory Limitations: no limitations - History of Present Illness Initial comments: 71-year-old female past history of iron deficiency anemia, colovesicular fistula status post colostomy presents to the emergency department with low hemoglobin levels. Had a routine doctor's appointment yesterday. She has a visiting physician. Laboratory studies were completed the patient found her hemoglobin to be 6. She was sent into the hospital for transfusion. Patient states she's had multiple transfusions and gone home same day. Patient has fatigue. Denies chest pain or shortness of breath. Denies any black or bloody stools. 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 - Related Data Home Medications Medication Instructions Recorded Confirmed ARIPiprazole [Abilify] 5 mg PO HS 02/07/18 02/13/22 metFORMIN HCL [Glucophage] 1,000 mg PO BID-W/MEALS 02/07/18 02/13/22 Levothyroxine Sodium [Synthroid] 200 mcg PO DAILY 09/03/19 02/13/22 traZODone HCL 100 mg PO HS PRN 05/15/20 02/13/22 Albuterol Nebulized [Ventolin 2.5 mg INHALATION RT-Q6H PRN 10/19/21 02/13/22 Nebulized] Albuterol Sulfate [Albuterol 2 puff PO RT-Q6H PRN 10/19/21 02/13/22 Sulfate Hfa] Cholecalciferol [Vitamin D3 (25 25 mcg PO DAILY 10/19/21 02/13/22 Mcg = 1000 Iu)] Ferrous Sulfate [Iron (65 MG 325 mg PO Q48H 10/19/21 02/13/22 Elemental)] Pantoprazole Sodium [Protonix] 40 mg PO AC-BID 10/19/21 02/13/22 Metoprolol Succinate [Toprol XL] 25 mg PO DAILY 11/07/21 02/13/22 Citalopram Hydrobromide [CeleXA] 40 mg PO DAILY 01/30/22 02/13/22 Budesonide-Formot 160-4.5 Mcg 2 puff INHALATION RT-BID 02/13/22 02/13/22 [Symbicort 160-4.5 Mcg Inhaler] Ipratropium-Albuterol Nebulize 3 ml INHALATION RT-QID 02/13/22 02/13/22 [Duoneb 0.5 mg-3 mg/3 ml Soln] allopurinoL [Zyloprim] 100 mg PO DAILY 02/13/22 02/13/22 Previous Rx's Medication Instructions Recorded Atorvastatin [Lipitor] 40 mg PO DAILY #30 tab 09/10/18 HYDROcodone/APAP 7.5-325MG [[place] 1 tab PO Q6H PRN #12 tab 03/27/20 7.5-325] Furosemide [Lasix] 20 mg PO DAILY #30 tab 02/16/22 Magnesium Oxide [Mag-Ox] 400 mg PO DAILY #30 tablet 02/16/22 cefUROXime axetiL [Cefuroxime] 500 mg PO BID 10 Days #20 tab 02/16/22 Allergies Allergy/AdvReac Type Severity Reaction Status Date / Time adhesive Allergy Rash/Hives Verified 03/18/22 17:21 ciprofloxacin [From Cipro] Allergy Rash/Hives Verified 03/18/22 17:21 ciprofloxacin HCl Allergy Rash/Hives Verified 03/18/22 17:21 [From Cipro] latex Allergy Rash/Hives Verified 03/18/22 17:21 levofloxacin [From Levaquin] Allergy Rash/Hives Verified 03/18/22 17:21 nitrofurantoin Allergy Rash/Hives Verified 03/18/22 17:21 [From Macrobid] nitrofurantoin Allergy Rash/Hives Verified 03/18/22 17:21 macrocrystalline [From Macrobid] Penicillins Allergy Rash/Hives Verified 03/18/22 17:21 propoxyphene HCl Allergy Rash/Hives Verified 03/18/22 17:21 [From Darvon] propoxyphene napsylate Allergy Unknown Verified 03/18/22 17:21 [From Darvocet-N] sulfamethoxazole Allergy PIPPA Verified 03/18/22 17:21 [From Bactrim] trimethoprim [From Bactrim] Allergy PIPPA Verified 03/18/22 17:21 Review of Systems ROS Statement: Those systems with pertinent positive or pertinent negative responses have been documented in the HPI. ROS Other: All systems not noted in ROS Statement are negative. 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 glaucoma, chronic back pain and degenerative disk disease in the lumbar spine , nephrolithiasis, history of cellulitis in the legs and history of falls. The patient is also a recently quit smoker. History of Any Multi-Drug Resistant Organisms: VRE Date of last positivie culture/infection: 10/21/21 MDRO Source:: urine Past Surgical History: Appendectomy, Bowel Resection, Section, Cholecystectomy, Orthopedic Surgery, Tubal Ligation Additional Past Surgical History / Comment(s): LASER SX JETHRO EYES FOR GLAUCOMA. RT KNEE ARTHROSCOPY. UNDERWENT PERCUTANEOUS NEPHROSTOLITHOTOMY, colostomy Past Anesthesia/Blood Transfusion Reactions: No Reported Reaction Past Psychological History: Anxiety, Depression Smoking Status: Former smoker Past Alcohol Use History: None Reported Past Drug Use History: None Reported - Past Family History Mother Family Medical History: COPD Additional Family Medical History / Comment(s): emphysema, heart valve problems, in her sleep. Brother(s) Family Medical History: Cancer Additional Family Medical History / Comment(s): from oral cancer Father Brother(s) Family Medical History: Cancer Additional Family Medical History / Comment(s): heart disease General Exam Limitations: no limitations General appearance: alert, in no apparent distress Head exam: Present: atraumatic, normocephalic, normal inspection Eye exam: Present: normal appearance, PERRL, EOMI. Absent: scleral icterus, conjunctival injection, periorbital swelling ENT exam: Present: normal exam, mucous membranes moist Neck exam: Present: normal inspection. Absent: tenderness, meningismus, lymphadenopathy Respiratory exam: Present: normal lung sounds bilaterally. Absent: respiratory distress, wheezes, rales, rhonchi, stridor Cardiovascular Exam: Present: regular rate, normal rhythm, normal heart sounds. Absent: systolic murmur, diastolic murmur, rubs, gallop, clicks GI/Abdominal exam: Present: soft, normal bowel sounds, other (colostomy right side of abdomen). Absent: distended, tenderness, guarding, rebound, rigid Extremities exam: Present: normal inspection, full ROM, normal capillary refill. Absent: tenderness, pedal edema, joint swelling, calf tenderness Back exam: Present: normal inspection Neurological exam: Present: alert, oriented X3, CN II-XII intact Psychiatric exam: Present: normal affect, normal mood Skin exam: Present: warm, dry, intact, normal color. Absent: rash Course Vital Signs 03/18/22 03/18/22 03/18/22 17:19 20:12 20:22 Temperature 97.9 F Pulse Rate 70 74 73 Respiratory 20 20 20 Rate Blood Pressure 141/56 167/61 144/70 O2 Sat by Pulse 94 L 96 92 L Oximetry 03/18/22 20:52 Temperature Pulse Rate 81 Respiratory 20 Rate Blood Pressure 127/81 O2 Sat by Pulse 94 L Oximetry Medical Decision Making - Medical Decision Making Upon arrival patient was placed into room 25. Thorough history and physical exam was performed. Laboratory studies were conducted which demonstrated a hemoglobin of 6.3. Patient is given 1 unit of packed red blood cells and is discharged home. Instructed to follow-up with her doctor and return for any new or worsening symptoms - Lab Data Result diagrams: 03/18/22 18:08 03/18/22 19:30 Lab Results 03/18/22 03/18/22 03/18/22 Range/Units 18:08 18:08 18:26 WBC 10.7 H (3.8-10.6) k/uL RBC 2.18 L (3.80-5.40) m/uL Hgb 6.3 L* (11.4-16.0) gm/dL Hct 21.8 L (34.0-46.0) % MCV 99.6 (80.0-100.0) fL MCH 28.8 (25.0-35.0) pg MCHC 28.9 L (31.0-37.0) g/dL RDW 17.2 H (11.5-15.5) % Plt Count 428 (150-450) k/uL MPV 7.4 Neutrophils % 86 % Lymphocytes % 6 % Monocytes % 3 % Eosinophils % 3 % Basophils % 0 % Neutrophils # 9.2 H (1.3-7.7) k/uL Lymphocytes # 0.7 L (1.0-4.8) k/uL Monocytes # 0.4 (0-1.0) k/uL Eosinophils # 0.3 (0-0.7) k/uL Basophils # 0.0 (0-0.2) k/uL Hypochromasia Marked Anisocytosis Slight Macrocytosis Slight PT 10.9 (9.0-12.0) sec INR 1.0 (<1.2) APTT 25.8 (22.0-30.0) sec Sodium (137-145) mmol/L Potassium (3.5-5.1) mmol/L Chloride (98-107) mmol/L Carbon Dioxide (22-30) mmol/L Anion Gap mmol/L BUN (7-17) mg/dL Creatinine (0.52-1.04) mg/dL Est GFR (CKD-EPI)AfAm (>60 ml/min/1.73 sqM) Est GFR (CKD-EPI)NonAf (>60 ml/min/1.73 sqM) Glucose (74-99) mg/dL Calcium (8.4-10.2) mg/dL Total Bilirubin (0.2-1.3) mg/dL AST (14-36) U/L ALT (4-34) U/L Alkaline Phosphatase (38-126) U/L Total Protein (6.3-8.2) g/dL Albumin (3.5-5.0) g/dL Blood Type AB Positive Blood Type Recheck AB Pos Bld Type Recheck Status No Antibody Screen NEGATIVE Crossmatch See Detail Spec Expiration Date 03/21/2022 - 232503/18/22 Range/Units 19:30 WBC (3.8-10.6) k/uL RBC (3.80-5.40) m/uL Hgb (11.4-16.0) gm/dL Hct (34.0-46.0) % MCV (80.0-100.0) fL MCH (25.0-35.0) pg MCHC (31.0-37.0) g/dL RDW (11.5-15.5) % Plt Count (150-450) k/uL MPV Neutrophils % % Lymphocytes % % Monocytes % % Eosinophils % % Basophils % % Neutrophils # (1.3-7.7) k/uL Lymphocytes # (1.0-4.8) k/uL Monocytes # (0-1.0) k/uL Eosinophils # (0-0.7) k/uL Basophils # (0-0.2) k/uL Hypochromasia Anisocytosis Macrocytosis PT (9.0-12.0) sec INR (<1.2) APTT (22.0-30.0) sec Sodium 132 L (137-145) mmol/L Potassium 4.9 (3.5-5.1) mmol/L Chloride 102 (98-107) mmol/L Carbon Dioxide 27 (22-30) mmol/L Anion Gap 3 mmol/L BUN 30 H (7-17) mg/dL Creatinine 1.47 H (0.52-1.04) mg/dL Est GFR (CKD-EPI)AfAm 41 (>60 ml/min/1.73 sqM) Est GFR (CKD-EPI)NonAf 35 (>60 ml/min/1.73 sqM) Glucose 172 H (74-99) mg/dL Calcium 8.5 (8.4-10.2) mg/dL Total Bilirubin 0.1 L (0.2-1.3) mg/dL AST 32 (14-36) U/L ALT 40 H (4-34) U/L Alkaline Phosphatase 103 (38-126) U/L Total Protein 5.8 L (6.3-8.2) g/dL Albumin 2.9 L (3.5-5.0) g/dL Blood Type Blood Type Recheck Bld Type Recheck Status Antibody Screen Crossmatch Spec Expiration Date Critical Care Time Critical Care Time: Yes Critical Care Time: 35 minutes for transfusion of blood products Disposition Clinical Impression: Anemia Disposition: HOME SELF-CARE Condition: Stable Instructions (If sedation given, give patient instructions): Anemia (ED), Blood Transfusion (DC) Additional Instructions: Please follow-up with your primary care doctor. Return for any new or worsening symptoms Is patient prescribed a controlled substance at d/c from ED?: No Referrals: [facility] [Primary Care Provider] - 1-2 days Time of Disposition: 19:44
[2022-03-18 20:20] LABS: Albumin 2.9 g/dL (3.5-5.0); Calcium 8.5 mg/dL (8.4-10.2); Potassium 4.9 mmol/L (3.5-5.1); Total Bilirubin 0.1 mg/dL (0.2-1.3); Total Protein 5.8 g/dL (6.3-8.2)
[2022-03-18 21:27] VITALS: BP 127/81; PULSE 81
== END 2022-03-18 21:50 | disposition home or self-care (01) ==
LOC: EC 17:13
DX: D64.9 Anemia, unspecified (principal); J44.9 Chronic obstructive pulmonary disease, unspecified; E11.9 Type 2 diabetes mellitus without complications; E78.5 Hyperlipidemia, unspecified; I10 Essential (primary) hypertension; E07.9 Disorder of thyroid, unspecified; M19.90 Unspecified osteoarthritis, unspecified site; Z79.899 Other long term (current) drug therapy; Z88.1 Allergy status to other antibiotic agents; Z88.0 Allergy status to penicillin; Z88.4 Allergy status to anesthetic agent; Z88.3 Allergy status to other anti-infective agents; Z88.8 Allergy status to other drugs, medicaments and biological substances; Z88.2 Allergy status to sulfonamides; Z91.09 Other allergy status, other than to drugs and biological substances; Z91.040 Latex allergy status; Z79.84 Long term (current) use of oral hypoglycemic drugs; Z79.890 Hormone replacement therapy; Z79.51 Long term (current) use of inhaled steroids
CPT/HCPCS: 99284 ×2; 36415; 86900; 86901; 80053; 85025; 85610; 85730; 86850; 86920; 36430; P9016

== ENCOUNTER 2022-03-28 12:18 | Emergency (ER) | payer MEDICARE, OTHER ==
[2022-03-28 13:05] VITALS: BP 107/51; PULSE 76; RESP 16; TEMP 97.9
--- NOTE | 2022-03-28 14:09 | XR ---
EXAMINATION TYPE: XR Hip LT and AP Pelvis DATE OF EXAM: 03/28/2022 CLINICAL HISTORY: Pelvic and right hip pain. TECHNIQUE: A single AP view of the pelvis is obtained. Two views of the left hip are obtained. COMPARISON: None. FINDINGS: There is no acute fracture/dislocation evident in the pelvis. Severe right-sided degenerative joint s pace narrowing of the right hip joint space with mild narrowing seen on the left. The overlying soft tissue appears unremarkable.Two views of left hip show no acute fracture or dislocation. No focal ly tic or sclerotic lesion seen in the proximal left femur. The overlying soft tissue is unremarkable. IMPRESSION: There is no acute fracture or dislocation in the pelvis or left hip.
[2022-03-28] MEDS ORDERED: HYDROmorphone 0.5 MG/0.5 ML SYRINGE IVP STA (14:50)
[2022-03-28] MEDS ORDERED: ACET/COD 300 MG/30 MG STARTER PACK 6 TAB BTL PO STA (14:55)
--- NOTE | 2022-03-28 14:57 | ED ---
Extremity Problem HPI - General Chief complaint: Extremity Problem,Nontraumatic Stated complaint: Left hip pain, Nausea Time Seen by Provider: 03/28/22 14:27 Source: patient Mode of arrival: wheelchair Limitations: no limitations - History of Present Illness Initial comments: Patient is a 71-year-old female presenting with chief complaint of left hip lupe n. Patient states has been present for the last 2 days and feels like an aching sensation. There is no radiation of the pain. Patient admits to pain with range of motion and weightbearing. She denies any back pain, chest pain, shortness of breath, numbness, tingling, redness, swelling, fever, chills, vomiting. - Related Data Home Medications Medication Instructions Recorded Confirmed ARIPiprazole [Abilify] 5 mg PO HS 02/07/18 02/13/22 metFORMIN HCL [Glucophage] 1,000 mg PO BID-W/MEALS 02/07/18 02/13/22 Levothyroxine Sodium [Synthroid] 200 mcg PO DAILY 09/03/19 02/13/22 traZODone HCL 100 mg PO HS PRN 05/15/20 02/13/22 Albuterol Nebulized [Ventolin 2.5 mg INHALATION RT-Q6H PRN 10/19/21 02/13/22 Nebulized] Albuterol Sulfate [Albuterol 2 puff PO RT-Q6H PRN 10/19/21 02/13/22 Sulfate Hfa] Cholecalciferol [Vitamin D3 (25 25 mcg PO DAILY 10/19/21 02/13/22 Mcg = 1000 Iu)] Ferrous Sulfate [Iron (65 MG 325 mg PO Q48H 10/19/21 02/13/22 Elemental)] Pantoprazole Sodium [Protonix] 40 mg PO AC-BID 10/19/21 02/13/22 Metoprolol Succinate [Toprol XL] 25 mg PO DAILY 11/07/21 02/13/22 Citalopram Hydrobromide [CeleXA] 40 mg PO DAILY 01/30/22 02/13/22 Budesonide-Formot 160-4.5 Mcg 2 puff INHALATION RT-BID 02/13/22 02/13/22 [Symbicort 160-4.5 Mcg Inhaler] Ipratropium-Albuterol Nebulize 3 ml INHALATION RT-QID 02/13/22 02/13/22 [Duoneb 0.5 mg-3 mg/3 ml Soln] allopurinoL [Zyloprim] 100 mg PO DAILY 02/13/22 02/13/22 Previous Rx's Medication Instructions Recorded Atorvastatin [Lipitor] 40 mg PO DAILY #30 tab 09/10/18 HYDROcodone/APAP 7.5-325MG [[place] 1 tab PO Q6H PRN #12 tab 03/27/20 7.5-325] Furosemide [Lasix] 20 mg PO DAILY #30 tab 02/16/22 Magnesium Oxide [Mag-Ox] 400 mg PO DAILY #30 tablet 02/16/22 cefUROXime axetiL [Cefuroxime] 500 mg PO BID 10 Days #20 tab 02/16/22 Allergies Allergy/AdvReac Type Severity Reaction Status Date / Time adhesive Allergy Rash/Hives Verified 03/28/22 13:04 ciprofloxacin [From Cipro] Allergy Rash/Hives Verified 03/28/22 13:04 ciprofloxacin HCl Allergy Rash/Hives Verified 03/28/22 13:04 [From Cipro] latex Allergy Rash/Hives Verified 03/28/22 13:04 levofloxacin [From Levaquin] Allergy Rash/Hives Verified 03/28/22 13:04 nitrofurantoin Allergy Rash/Hives Verified 03/28/22 13:04 [From Macrobid] nitrofurantoin Allergy Rash/Hives Verified 03/28/22 13:04 macrocrystalline [From Macrobid] Penicillins Allergy Rash/Hives Verified 03/28/22 13:04 propoxyphene HCl Allergy Rash/Hives Verified 03/28/22 13:04 [From Darvon] propoxyphene napsylate Allergy Unknown Verified 03/28/22 13:04 [From Darvocet-N] sulfamethoxazole Allergy PIPPA Verified 03/28/22 13:04 [From Bactrim] trimethoprim [From Bactrim] Allergy PIPPA Verified 03/28/22 13:04 Review of Systems ROS Statement: Those systems with pertinent positive or pertinent negative responses have been documented in the HPI. ROS Other: All systems not noted in ROS Statement are negative. 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 glaucoma, chronic back pain and degenerative disk disease in the lumbar spine , nephrolithiasis, history of cellulitis in the legs and history of falls. The patient is also a recently quit smoker. History of Any Multi-Drug Resistant Organisms: VRE Date of last positivie culture/infection: 10/21/21 MDRO Source:: urine Past Surgical History: Appendectomy, Bowel Resection, Section, Cholecystectomy, Orthopedic Surgery, Tubal Ligation Additional Past Surgical History / Comment(s): LASER SX JETHRO EYES FOR GLAUCOMA. RT KNEE ARTHROSCOPY. UNDERWENT PERCUTANEOUS NEPHROSTOLITHOTOMY, colostomy Past Anesthesia/Blood Transfusion Reactions: No Reported Reaction Past Psychological History: Anxiety, Depression Smoking Status: Former smoker Past Alcohol Use History: None Reported Past Drug Use History: None Reported - Past Family History Mother Family Medical History: COPD Additional Family Medical History / Comment(s): emphysema, heart valve problems, in her sleep. Brother(s) Family Medical History: Cancer Additional Family Medical History / Comment(s): from oral cancer Father Brother(s) Family Medical History: Cancer Additional Family Medical History / Comment(s): heart disease General Exam Limitations: no limitations General appearance: alert, in no apparent distress Head exam: Present: atraumatic, normocephalic, normal inspection Eye exam: Present: normal appearance, EOMI. Absent: scleral icterus, periorbital swelling Neck exam: Present: normal inspection Respiratory exam: Present: normal lung sounds bilaterally. Absent: respiratory distress, wheezes, rales, rhonchi, stridor Cardiovascular Exam: Present: regular rate, normal rhythm, normal heart sounds. Absent: systolic murmur, diastolic murmur, rubs, gallop, clicks Extremities exam: Present: normal inspection. Absent: full ROM (Limited secondary to pain) Neurological exam: Present: alert, oriented X3, CN II-XII intact Psychiatric exam: Present: normal affect, normal mood Skin exam: Present: warm, dry, intact, normal color. Absent: rash Course Vital Signs 03/28/22 13:04 Temperature 97.9 F Pulse Rate 76 Respiratory 16 Rate Blood Pressure 107/51 O2 Sat by Pulse 92 L Oximetry Medical Decision Making - Medical Decision Making Patient is a 71-year-old female presenting with chief complaint of left hip pain. Pain has been present for the last 2 days. On examination patient has limited range of motion secondary to baseline mobility issues and pain. X-ray shows no acute process, does show chronic degenerative changes. Patient is given pain medication here in the ER. Instructed to follow-up with PCP in one to 2 days. Report back to ER if any new or worsening symptoms. Discussed return parameters answered all questions. Patient conveyed verbal understanding and agreed to the plan. I discussed this case with my attending Dr. Mahmood. Disposition Clinical Impression: Hip pain Disposition: HOME SELF-CARE Condition: Good Instructions (If sedation given, give patient instructions): Hip Pain (ED) Additional Instructions: Follow-up with PCP in one to 2 days. Report back to ER with any new or worsening symptoms. Take medication as prescribed. Is patient prescribed a controlled substance at d/c from ED?: No Referrals: [facility] [REFERRING] - 1-2 days Time of Disposition: 14:56
[2022-03-28] MEDS ORDERED: HYDROmorphone 0.5 MG/0.5 ML SYRINGE IM STA (14:58)
== END 2022-03-28 15:05 | disposition home or self-care (01) ==
LOC: EC 12:18
DX: M25.552 Pain in left hip (principal); J44.9 Chronic obstructive pulmonary disease, unspecified; E11.9 Type 2 diabetes mellitus without complications; E78.5 Hyperlipidemia, unspecified; I10 Essential (primary) hypertension; M19.90 Unspecified osteoarthritis, unspecified site; E07.9 Disorder of thyroid, unspecified; Z87.891 Personal history of nicotine dependence; Z79.890 Hormone replacement therapy; Z79.51 Long term (current) use of inhaled steroids; Z79.84 Long term (current) use of oral hypoglycemic drugs; Z91.048 Other nonmedicinal substance allergy status; Z88.1 Allergy status to other antibiotic agents; Z91.040 Latex allergy status; Z88.0 Allergy status to penicillin; Z88.5 Allergy status to narcotic agent; Z88.6 Allergy status to analgesic agent; Z88.2 Allergy status to sulfonamides
CPT/HCPCS: 73502; 99283; 96372; J1170

== ENCOUNTER 2022-03-28 18:43 | Emergency (ER) | payer MEDICARE, OTHER ==
[2022-03-28 19:30] VITALS: RESP 18; TEMP 98.1
--- NOTE | 2022-03-28 19:33 | ED ---
General Adult HPI - General Chief complaint: Recheck/Abnormal Lab/Rx Stated complaint: Recheck-sent by PCP Time Seen by Provider: 03/28/22 19:29 Source: patient, family, RN notes reviewed Mode of arrival: wheelchair Limitations: no limitations - History of Present Illness Initial comments: 71-year-old female with history of anemia. Patient had a recent blood transfusion about 2 weeks ago. She presents again today after being sent in by primary care physician for hemoglobin of 6.6. Patient complaining of fatigue and shortness breath with exertion. Patient has a history of iron deficiency anemia, colovesicular fistula, status post colostomy. Patient was sent here for blood transfusion. Patient is actually undergone multiple blood transfusion, most recently on 02/16/2022. No headache, no fever or chills, no changes in vision or hearing, no sore throat or difficulty with speech, no neck pain, no chest pain or shortness of breath, no abdominal pain, no nausea or vomiting, no changes in urination or bowel movements, no numbness or tingling, patient does complain of left hip pain which is chronic., no skin rashes or lesions. Past medical, surgical, social, and family history reviewed. - Related Data Home Medications Medication Instructions Recorded Confirmed ARIPiprazole [Abilify] 5 mg PO HS 02/07/18 02/13/22 metFORMIN HCL [Glucophage] 1,000 mg PO BID-W/MEALS 02/07/18 02/13/22 Levothyroxine Sodium [Synthroid] 200 mcg PO DAILY 09/03/19 02/13/22 traZODone HCL 100 mg PO HS PRN 05/15/20 02/13/22 Albuterol Nebulized [Ventolin 2.5 mg INHALATION RT-Q6H PRN 10/19/21 02/13/22 Nebulized] Albuterol Sulfate [Albuterol 2 puff PO RT-Q6H PRN 10/19/21 02/13/22 Sulfate Hfa] Cholecalciferol [Vitamin D3 (25 25 mcg PO DAILY 10/19/21 02/13/22 Mcg = 1000 Iu)] Ferrous Sulfate [Iron (65 MG 325 mg PO Q48H 10/19/21 02/13/22 Elemental)] Pantoprazole Sodium [Protonix] 40 mg PO AC-BID 10/19/21 02/13/22 Metoprolol Succinate [Toprol XL] 25 mg PO DAILY 11/07/21 02/13/22 Citalopram Hydrobromide [CeleXA] 40 mg PO DAILY 01/30/22 02/13/22 Budesonide-Formot 160-4.5 Mcg 2 puff INHALATION RT-BID 02/13/22 02/13/22 [Symbicort 160-4.5 Mcg Inhaler] Ipratropium-Albuterol Nebulize 3 ml INHALATION RT-QID 02/13/22 02/13/22 [Duoneb 0.5 mg-3 mg/3 ml Soln] allopurinoL [Zyloprim] 100 mg PO DAILY 02/13/22 02/13/22 Previous Rx's Medication Instructions Recorded Atorvastatin [Lipitor] 40 mg PO DAILY #30 tab 09/10/18 HYDROcodone/APAP 7.5-325MG [[place] 1 tab PO Q6H PRN #12 tab 03/27/20 7.5-325] Furosemide [Lasix] 20 mg PO DAILY #30 tab 02/16/22 Magnesium Oxide [Mag-Ox] 400 mg PO DAILY #30 tablet 02/16/22 cefUROXime axetiL [Cefuroxime] 500 mg PO BID 10 Days #20 tab 02/16/22 Allergies Allergy/AdvReac Type Severity Reaction Status Date / Time adhesive Allergy Rash/Hives Verified 03/28/22 19:31 ciprofloxacin [From Cipro] Allergy Rash/Hives Verified 03/28/22 19:31 ciprofloxacin HCl Allergy Rash/Hives Verified 03/28/22 19:31 [From Cipro] latex Allergy Rash/Hives Verified 03/28/22 19:31 levofloxacin [From Levaquin] Allergy Rash/Hives Verified 03/28/22 19:31 nitrofurantoin Allergy Rash/Hives Verified 03/28/22 19:31 [From Macrobid] nitrofurantoin Allergy Rash/Hives Verified 03/28/22 19:31 macrocrystalline [From Macrobid] Penicillins Allergy Rash/Hives Verified 03/28/22 19:31 propoxyphene HCl Allergy Rash/Hives Verified 03/28/22 19:31 [From Darvon] propoxyphene napsylate Allergy Unknown Verified 03/28/22 19:31 [From Darvocet-N] sulfamethoxazole Allergy PIPPA Verified 03/28/22 19:31 [From Bactrim] trimethoprim [From Bactrim] Allergy PIPPA Verified 03/28/22 19:31 Review of Systems ROS Statement: Those systems with pertinent positive or pertinent negative responses have been documented in the HPI. ROS Other: All systems not noted in ROS Statement are negative. 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 glaucoma, chronic back pain and degenerative disk disease in the lumbar spine , nephrolithiasis, history of cellulitis in the legs and history of falls. The patient is also a recently quit smoker. History of Any Multi-Drug Resistant Organisms: VRE Date of last positivie culture/infection: 10/21/21 MDRO Source:: urine Past Surgical History: Appendectomy, Bowel Resection, Section, Cholecystectomy, Orthopedic Surgery, Tubal Ligation Additional Past Surgical History / Comment(s): LASER SX JETHRO EYES FOR GLAUCOMA. RT KNEE ARTHROSCOPY. UNDERWENT PERCUTANEOUS NEPHROSTOLITHOTOMY, colostomy Past Anesthesia/Blood Transfusion Reactions: No Reported Reaction Past Psychological History: Anxiety, Depression Smoking Status: Former smoker Past Alcohol Use History: None Reported Past Drug Use History: None Reported - Past Family History Mother Family Medical History: COPD Additional Family Medical History / Comment(s): emphysema, heart valve problems, in her sleep. Brother(s) Family Medical History: Cancer Additional Family Medical History / Comment(s): from oral cancer Father Brother(s) Family Medical History: Cancer Additional Family Medical History / Comment(s): heart disease General Exam - General Exam Comments Initial Comments: Deconditioned appearing female in no acute distress. Does appear to be pale. Cranial nerves II through XII grossly intact Limitations: no limitations General appearance: alert, in no apparent distress Head exam: Present: atraumatic, normocephalic, normal inspection Eye exam: Present: normal appearance, PERRL, EOMI. Absent: scleral icterus, conjunctival injection, periorbital swelling ENT exam: Present: normal exam, mucous membranes moist Neck exam: Present: normal inspection, full ROM. Absent: tenderness, meningismus, lymphadenopathy Respiratory exam: Present: normal lung sounds bilaterally. Absent: respiratory distress, wheezes, rales, rhonchi, stridor Cardiovascular Exam: Present: regular rate, normal rhythm, normal heart sounds. Absent: systolic murmur, diastolic murmur, rubs, gallop, clicks GI/Abdominal exam: Present: soft, normal bowel sounds. Absent: distended, ten derness, guarding, rebound, rigid Extremities exam: Present: normal inspection, full ROM, normal capillary refill. Absent: tenderness, pedal edema, joint swelling, calf tenderness Back exam: Present: normal inspection Neurological exam: Present: alert, oriented X3, CN II-XII intact Psychiatric exam: Present: normal affect, normal mood Skin exam: Present: warm, dry, intact, normal color. Absent: rash Course Vital Signs 03/28/22 03/28/22 03/28/22 19:28 20:16 20:27 Temperature 98.1 F Pulse Rate 77 76 80 Respiratory 18 Rate Blood Pressure 111/55 O2 Sat by Pulse 90 L Oximetry 03/28/22 03/28/22 21:47 22:00 Temperature Pulse Rate 76 76 Respiratory Rate Blood Pressure O2 Sat by Pulse 95 Oximetry - Reevaluation(s) Reevaluation #1: 03/28/22 22:04 Patient in no distress. Vital signs stable, patient afebrile at discharge Medical Decision Making - Medical Decision Making Patient sent in for hemoglobin 6.6. Patient is oxygen dependent. Patient states she has had endoscopies done in the cannot figure out why she is getting anemic. She does have history of chronic renal failure. No distress in triage. This is hemoglobin here comes back at 7.1. I did explain to the patient that she does not require transfusion at this time as this is a chronic anemia. Patient relieved and states she wants to be discharged. The case was discussed in detail with ED attending physician. Presentation, findings, treatment plan discussed in detail. Patient was told to return to the ER for any signs or symptoms worsen. Told to return immediately if any other problems arise. All questions answered. Treatment plan discussed. Patient in agreement Every effort has been made to ensure accuracy of this dictation. However, due to the limitations of electronic medical records and dictation devices, errors in charting still occur. Podiatric Medicine Doctor Dr. Lama - Lab Data Result diagrams: 03/28/22 21:07 03/28/22 21:07 Lab Results 03/28/22 03/28/22 03/28/22 Range/Units 21:07 21:07 21:07 WBC 12.5 H (3.8-10.6) k/uL RBC 2.56 L (3.80-5.40) m/uL Hgb 7.1 L (11.4-16.0) gm/dL Hct 24.6 L (34.0-46.0) % MCV 96.3 (80.0-100.0) fL MCH 27.7 (25.0-35.0) pg MCHC 28.8 L (31.0-37.0) g/dL RDW 15.2 (11.5-15.5) % Plt Count 393 (150-450) k/uL MPV 7.4 Neutrophils % 88 % Lymphocytes % 5 % Monocytes % 5 % Eosinophils % 1 % Basophils % 0 % Neutrophils # 11.0 H (1.3-7.7) k/uL Lymphocytes # 0.6 L (1.0-4.8) k/uL Monocytes # 0.6 (0-1.0) k/uL Eosinophils # 0.1 (0-0.7) k/uL Basophils # 0.0 (0-0.2) k/uL Hypochromasia Marked PT 12.2 H (9.0-12.0) sec INR 1.2 H (<1.2) APTT 25.7 (22.0-30.0) sec Sodium 129 L (137-145) mmol/L Potassium 4.3 (3.5-5.1) mmol/L Chloride 95 L (98-107) mmol/L Carbon Dioxide 22 (22-30) mmol/L Anion Gap 12 mmol/L BUN 34 H (7-17) mg/dL Creatinine 1.51 H (0.52-1.04) mg/dL Est GFR (CKD-EPI)AfAm 40 (>60 ml/min/1.73 sqM) Est GFR (CKD-EPI)NonAf 34 (>60 ml/min/1.73 sqM) Glucose 160 H (74-99) mg/dL Calcium 8.2 L (8.4-10.2) mg/dL Magnesium 1.4 L (1.6-2.3) mg/dL Total Bilirubin 0.1 L (0.2-1.3) mg/dL AST 18 (14-36) U/L ALT 31 (4-34) U/L Alkaline Phosphatase 171 H (38-126) U/L Total Protein 5.6 L (6.3-8.2) g/dL Albumin 2.6 L (3.5-5.0) g/dL Disposition Clinical Impression: Chronic anemia Narrative: Chronic normocytic anemia without indication for transfusion Disposition: HOME SELF-CARE Condition: Good Instructions (If sedation given, give patient instructions): Anemia (ED) Additional Instructions: Follow-up with your regular physician as directed. Return to the ER immediately if any symptoms worsen, new symptoms arise, or any other problems develop. Is patient prescribed a controlled substance at d/c from ED?: No Referrals: Levi Austin MD [Primary Care Provider] - 1-2 days Time of Disposition: 22:03
[2022-03-28] MEDS ORDERED: IPRATROPIUM-ALBUTEROL 3 ML NEB INHALATION STA (19:54)
--- NOTE | 2022-03-28 21:02 | XR ---
EXAMINATION TYPE: XR chest 1V portable DATE OF EXAM: 03/28/2022 8:20 PM COMPARISON: Chest radiographs from teen 22 TECHNIQUE: XR chest 1V portable Frontal view of the chest. CLINICAL INDICATION:Female, 71 years old with history of pain; FINDINGS: Lungs/Pleura: There is no evidence of pleural effusion, focal consolidation, or pneumothorax. Pulmonary vascularity: Unremarkable. Heart/mediastinum: Cardiomediastinal silhouette is prominent in size. Musculoskeletal: No acute osseous pathology. IMPRESSION: 1. No acute cardiopulmonary disease/process. Flat like atelectasis within left midlung unchanged fro m prior. 2. Similar cardiomegaly.
[2022-03-28 21:43] LABS: Basophils % (A) 0 %; Eosinophils # (A) 0.1 k/uL (0-0.7); Eosinophils % (A) 1 %; HCT 24.6 % (34.0-46.0); HGB 7.1 gm/dL (11.4-16.0); Hypochromasia Marked; Lymphocytes # (A) 0.6 k/uL (1.0-4.8); Lymphocytes % (A) 5 %; MCH 27.7 pg (25.0-35.0); MCHC 28.8 g/dL (31.0-37.0); MCV 96.3 fL (80.0-100.0); Mean Platelet Volume 7.4; Monocytes # (A) 0.6 k/uL (0-1.0); Monocytes % (A) 5 %; Neutrophils % (A) 88 %; Platelet Count 393 k/uL (150-450); RBC 2.56 m/uL (3.80-5.40); RDW 15.2 % (11.5-15.5); WBC 12.5 k/uL (3.8-10.6)
[2022-03-28 21:48] VITALS: PULSE 76
[2022-03-28 21:55] LABS: Albumin 2.6 g/dL (3.5-5.0); Calcium 8.2 mg/dL (8.4-10.2); INR 1.2 (<1.2); Magnesium 1.4 mg/dL (1.6-2.3); Partial Thromboplastin Time 25.7 sec (22.0-30.0); Potassium 4.3 mmol/L (3.5-5.1); Prothrombin Time 12.2 sec (9.0-12.0); Total Bilirubin 0.1 mg/dL (0.2-1.3); Total Protein 5.6 g/dL (6.3-8.2)
[2022-03-28 22:15] VITALS: BP 140/59
== END 2022-03-28 22:16 | disposition home or self-care (01) ==
LOC: EC 18:43
DX: D64.9 Anemia, unspecified (principal); J45.909 Unspecified asthma, uncomplicated; J44.9 Chronic obstructive pulmonary disease, unspecified; E11.9 Type 2 diabetes mellitus without complications; E78.5 Hyperlipidemia, unspecified; I10 Essential (primary) hypertension; M19.90 Unspecified osteoarthritis, unspecified site; E07.9 Disorder of thyroid, unspecified; F41.9 Anxiety disorder, unspecified; F32.A Depression, unspecified; Z87.891 Personal history of nicotine dependence; Z88.8 Allergy status to other drugs, medicaments and biological substances; Z88.1 Allergy status to other antibiotic agents; Z91.040 Latex allergy status; Z88.0 Allergy status to penicillin; Z88.2 Allergy status to sulfonamides; Z79.51 Long term (current) use of inhaled steroids; Z79.899 Other long term (current) drug therapy
CPT/HCPCS: 71045; 80053; 83735; 83880; 84484; 85025; 85610; 85730; 86850; 86900; 86901; 93005; 94640; 99285

== ENCOUNTER 2022-04-07 18:11 | Inpatient (IN) | payer MEDICARE, OTHER ==
[2022-04-07] MEDS ORDERED: IPRATROPIUM-ALBUTEROL 3 ML NEB INHALATION STA (19:22)
[2022-04-07] MEDS ORDERED: methylPREDNISolone SOD SUCCI 125 MG/2 ML VIAL IV STA (19:23)
[2022-04-07 20:01] LABS: Basophils % (A) 0 %; Eosinophils # (A) 0.2 k/uL (0-0.7); Eosinophils % (A) 1 %; HCT 26.8 % (34.0-46.0); HGB 7.7 gm/dL (11.4-16.0); Hypochromasia Marked; Lymphocytes # (A) 0.8 k/uL (1.0-4.8); Lymphocytes % (A) 5 %; MCH 27.2 pg (25.0-35.0); MCHC 28.7 g/dL (31.0-37.0); MCV 94.9 fL (80.0-100.0); Mean Platelet Volume 7.2; Monocytes # (A) 0.6 k/uL (0-1.0); Monocytes % (A) 4 %; Neutrophils # (A) 14.5 k/uL (1.3-7.7); Neutrophils % (A) 89 %; Platelet Count 374 k/uL (150-450); RBC 2.82 m/uL (3.80-5.40); RDW 15.7 % (11.5-15.5); WBC 16.3 k/uL (3.8-10.6)
[2022-04-07 20:06] LABS: Albumin 2.6 g/dL (3.5-5.0); Calcium 8.7 mg/dL (8.4-10.2); Magnesium 1.4 mg/dL (1.6-2.3); Potassium 4.7 mmol/L (3.5-5.1); Total Bilirubin 0.2 mg/dL (0.2-1.3); Total Protein 5.6 g/dL (6.3-8.2)
[2022-04-07 20:10] LABS: INR 1.1 (<1.2); Partial Thromboplastin Time 26.1 sec (22.0-30.0); Prothrombin Time 11.8 sec (9.0-12.0)
[2022-04-07 20:11] LABS: Appearance,Urine Cloudy (Clear); Bacteria,Urine Rare /hpf; Bilirubin,Urine Negative (Negative); Blood,Urine Small (Negative); Color,Urine Dark Yellow; Glucose,Urine (UA) Negative (Negative); Ketones,Urine Negative (Negative); Leukocyte Esterase,Urine Large (Negative); Nitrite,Urine Negative (Negative); Protein,Urine 1+ (Negative); RBC,Urine 4 /hpf (0-5); Specific Gravity,Urine 1.011 (1.001-1.035); Squamous Epithelial Cell,Urine 9 /hpf (0-4); Urobilinogen,Urine <2.0 mg/dL (<2.0); WBC,Urine 74 /hpf (0-5)
--- NOTE | 2022-04-07 20:12 | ED ---
SOB HPI - General Chief Complaint: Shortness of Breath Stated Complaint: PIPPA Time Seen by Provider: 04/07/22 19:08 Source: patient, family Mode of arrival: wheelchair Limitations: no limitations - History of Present Illness Initial Comments: Patient is a 71-year-old female with history of COPD, diabetes, hyperlipidemia, hypertension presenting with chief complaint of shortness of breath. Patient states that while at home today she developed gradually worsening shortness of breath, she wears 3 L of oxygen via nasal cannula at home. States that at home her heart rate was around 115. She denies any chest pain, palpitations or weakness, no abdominal pain, nausea, vomiting, diaphoresis. No fever or chills. No cough, congestion, sore throat. No recent injury or trauma. - Related Data Home Medications Medication Instructions Recorded Confirmed ARIPiprazole [Abilify] 5 mg PO HS 02/07/18 04/07/22 metFORMIN HCL [Glucophage] 1,000 mg PO BID-W/MEALS 02/07/18 04/07/22 Levothyroxine Sodium [Synthroid] 200 mcg PO DAILY 09/03/19 04/07/22 traZODone HCL 100 mg PO HS PRN 05/15/20 04/07/22 Albuterol Nebulized [Ventolin 2.5 mg INHALATION RT-Q6H PRN 10/19/21 04/07/22 Nebulized] Albuterol Sulfate [Albuterol 2 puff PO RT-Q6H PRN 10/19/21 04/07/22 Sulfate Hfa] Cholecalciferol [Vitamin D3 (25 25 mcg PO DAILY 10/19/21 04/07/22 Mcg = 1000 Iu)] Ferrous Sulfate [Iron (65 MG 325 mg PO Q48H 10/19/21 04/07/22 Elemental)] Metoprolol Succinate [Toprol XL] 25 mg PO DAILY 11/07/21 04/07/22 Citalopram Hydrobromide [CeleXA] 40 mg PO DAILY 01/30/22 04/07/22 Budesonide-Formot 160-4.5 Mcg 2 puff INHALATION RT-BID 02/13/22 04/07/22 [Symbicort 160-4.5 Mcg Inhaler] Ipratropium-Albuterol Nebulize 3 ml INHALATION RT-QID 02/13/22 04/07/22 [Duoneb 0.5 mg-3 mg/3 ml Soln] allopurinoL [Zyloprim] 100 mg PO DAILY 02/13/22 04/07/22 Fluconazole 200 mg PO DAILY 04/07/22 04/07/22 Methenamine Hippurate 1 gm PO BID 04/07/22 04/07/22 Minocycline HCl [Minocin] 100 mg PO BID 04/07/22 04/07/22 Nystatin 100,000Unit/gm Cream 1 applic TOPICAL BID 04/07/22 04/07/22 [Mycostatin Cream] Prochlorperazine Maleate 10 mg PO TID PRN 04/07/22 04/07/22 Previous Rx's Medication Instructions Recorded Atorvastatin [Lipitor] 40 mg PO DAILY #30 tab 09/10/18 HYDROcodone/APAP 7.5-325MG [[place] 1 tab PO Q6H PRN #12 tab 03/27/20 7.5-325] Furosemide [Lasix] 20 mg PO DAILY #30 tab 02/16/22 Magnesium Oxide [Mag-Ox] 400 mg PO DAILY #30 tablet 02/16/22 Allergies Allergy/AdvReac Type Severity Reaction Status Date / Time adhesive Allergy Rash/Hives Verified 04/07/22 23:29 ciprofloxacin [From Cipro] Allergy Rash/Hives Verified 04/07/22 23:29 ciprofloxacin HCl Allergy Rash/Hives Verified 04/07/22 23:29 [From Cipro] latex Allergy Rash/Hives Verified 04/07/22 23:29 levofloxacin [From Levaquin] Allergy Rash/Hives Verified 04/07/22 23:29 nitrofurantoin Allergy Rash/Hives Verified 04/07/22 23:29 [From Macrobid] nitrofurantoin Allergy Rash/Hives Verified 04/07/22 23:29 macrocrystalline [From Macrobid] Penicillins Allergy Rash/Hives Verified 04/07/22 23:29 propoxyphene HCl Allergy Rash/Hives Verified 04/07/22 23:29 [From Darvon] propoxyphene napsylate Allergy Unknown Verified 04/07/22 23:29 [From Darvocet-N] sulfamethoxazole Allergy PIPPA Verified 04/07/22 23:29 [From Bactrim] trimethoprim [From Bactrim] Allergy PIPPA Verified 04/07/22 23:29 Review of Systems ROS Statement: Those systems with pertinent positive or pertinent negative responses have been documented in the HPI. ROS Other: All systems not noted in ROS Statement are negative. 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 glaucoma, chronic back pain and degenerative disk disease in the lumbar spine , nephrolithiasis, history of cellulitis in the legs and history of falls. The patient is also a recently quit smoker. History of Any Multi-Drug Resistant Organisms: VRE Date of last positivie culture/infection: 10/21/21 MDRO Source:: urine Past Surgical History: Appendectomy, Bowel Resection, Section, Cholecystectomy, Orthopedic Surgery, Tubal Ligation Additional Past Surgical History / Comment(s): LASER SX JETHRO EYES FOR GLAUCOMA. RT KNEE ARTHROSCOPY. UNDERWENT PERCUTANEOUS NEPHROSTOLITHOTOMY, colostomy Past Anesthesia/Blood Transfusion Reactions: No Reported Reaction Past Psychological History: Anxiety, Depression Smoking Status: Former smoker Past Alcohol Use History: None Reported Past Drug Use History: None Reported - Past Family History Mother Family Medical History: COPD Additional Family Medical History / Comment(s): emphysema, heart valve problems, in her sleep. Brother(s) Family Medical History: Cancer Additional Family Medical History / Comment(s): from oral cancer Father Brother(s) Family Medical History: Cancer Additional Family Medical History / Comment(s): heart disease General Exam Limitations: no limitations General appearance: alert, in no apparent distress Head exam: Present: atraumatic, normocephalic, normal inspection Eye exam: Present: normal appearance, EOMI. Absent: scleral icterus, periorbital swelling Neck exam: Present: normal inspection Respiratory exam: Present: wheezes. Absent: respiratory distress, rales, rhonchi, stridor Cardiovascular Exam: Present: regular rate, normal rhythm, normal heart sounds. Absent: systolic murmur, diastolic murmur, rubs, gallop, clicks Neurological exam: Present: alert, oriented X3, CN II-XII intact Psychiatric exam: Present: normal affect, normal mood Skin exam: Present: warm, dry, intact, normal color. Absent: rash Course Vital Signs 04/07/22 04/07/22 04/07/22 18:19 18:55 20:11 Temperature 98.0 F 98.6 F Pulse Rate 86 80 78 Respiratory 20 22 Rate Blood Pressure 155/60 174/57 O2 Sat by Pulse 89 L 88 L Oximetry 04/07/22 04/07/22 04/08/22 20:21 22:14 01:00 Temperature Pulse Rate 81 84 84 Respiratory 24 16 Rate Blood Pressure 161/65 161/70 O2 Sat by Pulse 93 L 95 Oximetry Medical Decision Making - Medical Decision Making Patient is a 71-year-old female presenting with chief complaint of shortness of breath. She has a history of heart failure and COPD. Patient wears 3 L of oxygen via nasal cannula at home. States that today despite wearing her oxygen she had worsening shortness of breath and elevated heart rate at home. At presentation she with 88% on room air. She is probably placed on increased oxygen and oxygen saturation improved to 95%. On examination there are wheezes heard throughout the lung [place]. Leukocytosis is present, WBC of 16.3. Patient has history of chronic anemia, Hgb 7.7. Sodium 134. Creatinine 1.31 and BUN 24. BNP 99[address] and troponin is negative. EKG shows no acute changes. Patient is negative for influenza and coronavirus. UA suggests UTI, urine sent for culture. Chest x-ray suggests either interstitial pneumonia or acute heart failure. Patient is not having cough at this time, given her BNP this is likely more consistent with heart failure. However given the patient's leukocytosis, she is prophylactically treated with azithromycin and Rocephin. Patient will be admitted for heart failure and COPD. I spoke with Dr. Gonzalez who agreed to ad scott the patient. I discussed these findings and the plan with the patient, she conveyed verbal understanding and was in agreement. I discussed this case with my attending Dr. Mahmood. - Lab Data Result diagrams: 04/07/22 19:29 04/07/22 19:29 Lab Results 04/07/22 04/07/22 04/07/22 Range/Units 19:29 19:29 19:29 WBC 16.3 H (3.8-10.6) k/uL RBC 2.82 L (3.80-5.40) m/uL Hgb 7.7 L (11.4-16.0) gm/dL Hct 26.8 L (34.0-46.0) % MCV 94.9 (80.0-100.0) fL MCH 27.2 (25.0-35.0) pg MCHC 28.7 L (31.0-37.0) g/dL RDW 15.7 H (11.5-15.5) % Plt Count 374 (150-450) k/uL MPV 7.2 Neutrophils % 89 % Lymphocytes % 5 % Monocytes % 4 % Eosinophils % 1 % Basophils % 0 % Neutrophils # 14.5 H (1.3-7.7) k/uL Lymphocytes # 0.8 L (1.0-4.8) k/uL Monocytes # 0.6 (0-1.0) k/uL Eosinophils # 0.2 (0-0.7) k/uL Basophils # 0.0 (0-0.2) k/uL Hypochromasia Marked PT 11.8 (9.0-12.0) sec INR 1.1 (<1.2) APTT 26.1 (22.0-30.0) sec Sodium (137-145) mmol/L Potassium (3.5-5.1) mmol/L Chloride (98-107) mmol/L Carbon Dioxide (22-30) mmol/L Anion Gap mmol/L BUN (7-17) mg/dL Creatinine (0.52-1.04) mg/dL Est GFR (CKD-EPI)AfAm (>60 ml/min/1.73 sqM) Est GFR (CKD-EPI)NonAf (>60 ml/min/1.73 sqM) Glucose (74-99) mg/dL Plasma Lactic Acid Ravi (0.7-2.0) mmol/L Calcium (8.4-10.2) mg/dL Magnesium (1.6-2.3) mg/dL Total Bilirubin (0.2-1.3) mg/dL AST (14-36) U/L ALT (4-34) U/L Alkaline Phosphatase (38-126) U/L Troponin I (0.000-0.034) ng/mL NT-Pro-B Natriuret Pep pg/mL Total Protein (6.3-8.2) g/dL Albumin (3.5-5.0) g/dL Urine Color Dark Yellow Urine Appearance Cloudy H (Clear) Urine pH 6.0 (5.0-8.0) Ur Specific [place] 1.011 (1.001-1.035) Urine Protein 1+ H (Negative) Urine Glucose (UA) Negative (Negative) Urine Ketones Negative (Negative) Urine Blood Small H (Negative) Urine Nitrite Negative (Negative) Urine Bilirubin Negative (Negative) Urine Urobilinogen <2.0 (<2.0) mg/dL Ur Leukocyte Esterase Large H (Negative) Urine RBC 4 (0-5) /hpf Urine WBC 74 H (0-5) /hpf Ur Squamous Epith Cells 9 H (0-4) /hpf Urine Bacteria Rare H (None) /hpf Coronavirus (PCR) (Not Detectd) Influenza Type A RNA (Not Detectd) Influenza Type B (PCR) (Not Detectd) 04/07/22 04/07/22 04/07/22 Range/Units 19:29 19:29 19:29 WBC (3.8-10.6) k/uL RBC (3.80-5.40) m/uL Hgb (11.4-16.0) gm/dL Hct (34.0-46.0) % MCV (80.0-100.0) fL MCH (25.0-35.0) pg MCHC (31.0-37.0) g/dL RDW (11.5-15.5) % Plt Count (150-450) k/uL MPV Neutrophils % % Lymphocytes % % Monocytes % % Eosinophils % % Basophils % % Neutrophils # (1.3-7.7) k/uL Lymphocytes # (1.0-4.8) k/uL Monocytes # (0-1.0) k/uL Eosinophils # (0-0.7) k/uL Basophils # (0-0.2) k/uL Hypochromasia PT (9.0-12.0) sec INR (<1.2) APTT (22.0-30.0) sec Sodium 134 L (137-145) mmol/L Potassium 4.7 (3.5-5.1) mmol/L Chloride 100 (98-107) mmol/L Carbon Dioxide 25 (22-30) mmol/L Anion Gap 9 mmol/L BUN 24 H (7-17) mg/dL Creatinine 1.31 H (0.52-1.04) mg/dL Est GFR (CKD-EPI)AfAm 47 (>60 ml/min/1.73 sqM) Est GFR (CKD-EPI)NonAf 41 (>60 ml/min/1.73 sqM) Glucose 148 H (74-99) mg/dL Plasma Lactic Acid Ravi 1.2 (0.7-2.0) mmol/L Calcium 8.7 (8.4-10.2) mg/dL Magnesium 1.4 L (1.6-2.3) mg/dL Total Bilirubin 0.2 (0.2-1.3) mg/dL AST 18 (14-36) U/L ALT 21 (4-34) U/L Alkaline Phosphatase 124 (38-126) U/L Troponin I <0.012 (0.000-0.034) ng/mL NT-Pro-B Natriuret Pep pg/mL Total Protein 5.6 L (6.3-8.2) g/dL Albumin 2.6 L (3.5-5.0) g/dL Urine Color Urine Appearance (Clear) Urine pH (5.0-8.0) Ur Specific [place] (1.001-1.035) Urine Protein (Negative) Urine Glucose (UA) (Negative) Urine Ketones (Negative) Urine Blood (Negative) Urine Nitrite (Negative) Urine Bilirubin (Negative) Urine Urobilinogen (<2.0) mg/dL Ur Leukocyte Esterase (Negative) Urine RBC (0-5) /hpf Urine WBC (0-5) /hpf Ur Squamous Epith Cells (0-4) /hpf Urine Bacteria (None) /hpf Coronavirus (PCR) (Not Detectd) Influenza Type A RNA (Not Detectd) Influenza Type B (PCR) (Not Detectd) 04/07/22 04/07/22 04/07/22 Range/Units 19:29 19:29 19:52 WBC (3.8-10.6) k/uL RBC (3.80-5.40) m/uL Hgb (11.4-16.0) gm/dL Hct (34.0-46.0) % MCV (80.0-100.0) fL MCH (25.0-35.0) pg MCHC (31.0-37.0) g/dL RDW (11.5-15.5) % Plt Count (150-450) k/uL MPV Neutrophils % % Lymphocytes % % Monocytes % % Eosinophils % % Basophils % % Neutrophils # (1.3-7.7) k/uL Lymphocytes # (1.0-4.8) k/uL Monocytes # (0-1.0) k/uL Eosinophils # (0-0.7) k/uL Basophils # (0-0.2) k/uL Hypochromasia PT (9.0-12.0) sec INR (<1.2) APTT (22.0-30.0) sec Sodium (137-145) mmol/L Potassium (3.5-5.1) mmol/L Chloride (98-107) mmol/L Carbon Dioxide (22-30) mmol/L Anion Gap mmol/L BUN (7-17) mg/dL Creatinine (0.52-1.04) mg/dL Est GFR (CKD-EPI)AfAm (>60 ml/min/1.73 sqM) Est GFR (CKD-EPI)NonAf (>60 ml/min/1.73 sqM) Glucose (74-99) mg/dL Plasma Lactic Acid Ravi (0.7-2.0) mmol/L Calcium (8.4-10.2) mg/dL Magnesium (1.6-2.3) mg/dL Total Bilirubin (0.2-1.3) mg/dL AST (14-36) U/L ALT (4-34) U/L Alkaline Phosphatase (38-126) U/L Troponin I (0.000-0.034) ng/mL NT-Pro-B Natriuret Pep 56256 pg/mL Total Protein (6.3-8.2) g/dL Albumin (3.5-5.0) g/dL Urine Color Urine Appearance (Clear) Urine pH (5.0-8.0) Ur Specific [place] (1.001-1.035) Urine Protein (Negative) Urine Glucose (UA) (Negative) Urine Ketones (Negative) Urine Blood (Negative) Urine Nitrite (Negative) Urine Bilirubin (Negative) Urine Urobilinogen (<2.0) mg/dL Ur Leukocyte Esterase (Negative) Urine RBC (0-5) /hpf Urine WBC (0-5) /hpf Ur Squamous Epith Cells (0-4) /hpf Urine Bacteria (None) /hpf Coronavirus (PCR) Not Detected (Not Detectd) Influenza Type A RNA Not Detected (Not Detectd) Influenza Type B (PCR) Not Detected (Not Detectd) Disposition Clinical Impression: Heart failure, COPD exacerbation Disposition: ADMITTED IP TO THIS [facility] Condition: Fair Is patient prescribed a controlled substance at d/c from ED?: No Time of Disposition: 22:20 Decision to Admit Reason: Admit from EC Decision Date: 04/07/22 Decision Time: 22:20
--- NOTE | 2022-04-07 20:48 | XR ---
EXAMINATION TYPE: XR chest 2V DATE OF EXAM: 04/07/2022 COMPARISON: 03/28/2022 HISTORY: Short of breath TECHNIQUE: 2 views FINDINGS: There is slight coarsening of the interstitial markings. Thoracic aorta is atheromatous. Th ere are chest leads. Note pleural effusion. Bony thorax is intact. IMPRESSION: Increased interstitial density compared to old exam that could be acute interstitial pneu monia or acute heart failure.
[2022-04-07] MEDS ORDERED: AZITHROMYCIN 500 MG TAB PO STA (21:25)
[2022-04-07] MEDS ORDERED: cefTRIAXone IN SWFI 1,000 MG/10 ML SYRINGE IVP STA (21:25)
[2022-04-07] MEDS ORDERED: Magnesium Replacement Protocol 1 EACH MISC MISCELLANE PRN (21:25)
[2022-04-07] MEDS: MAGNESIUM SULFATE-D5W PMX 1 GM in DEXTROSE/WATER 1 100ML.BAG IVPB SCH ×2 (21:49→22:59)
[2022-04-07] MEDS ORDERED: ACETAMINOPHEN TAB 325 MG TAB PO PRN (22:41)
[2022-04-07] MEDS ORDERED: ONDANSETRON 4 MG/2 ML VIAL IVP PRN (22:41)
[2022-04-07] MEDS ORDERED: NALOXONE 0.4 MG/ML 1 ML VIAL IV PRN (22:41)
[2022-04-07] MEDS ORDERED: traZODone HCL 50 MG TAB PO ONE (22:44)
[2022-04-07] MEDS: ARIPiprazole 5 MG TAB PO SCH (22:59)
[2022-04-08] MEDS ORDERED: HYDROcodone/APAP 7.5-325MG 1 EACH TAB PO ONE (00:02)
[2022-04-08] MEDS: MAGNESIUM SULFATE-D5W PMX 1 GM in DEXTROSE/WATER 1 100ML.BAG IVPB SCH (01:42)
[2022-04-08 06:25] LABS: Basophils % (A) 0 %; Eosinophils % (A) 0 %; HCT 26.9 % (34.0-46.0); HGB 7.6 gm/dL (11.4-16.0); Hypochromasia Marked; Lymphocytes # (A) 0.3 k/uL (1.0-4.8); Lymphocytes % (A) 2 %; MCH 27.3 pg (25.0-35.0); MCHC 28.3 g/dL (31.0-37.0); MCV 96.3 fL (80.0-100.0); Mean Platelet Volume 7.2; Monocytes # (A) 0.2 k/uL (0-1.0); Monocytes % (A) 2 %; Neutrophils # (A) 12.7 k/uL (1.3-7.7); Neutrophils % (A) 96 %; Platelet Count 363 k/uL (150-450); RDW 15.7 % (11.5-15.5); WBC 13.2 k/uL (3.8-10.6)
[2022-04-08 06:37] LABS: Albumin 2.6 g/dL (3.5-5.0); Calcium 8.2 mg/dL (8.4-10.2); Total Bilirubin 0.1 mg/dL (0.2-1.3); Total Protein 5.7 g/dL (6.3-8.2)
[2022-04-08] MEDS ORDERED: ALBUTEROL HFA INHALER INHALATION PRN (09:05)
[2022-04-08] MEDS ORDERED: ALBUTEROL NEBULIZED 2.5 MG/3 ML INHALATION PRN (09:05)
[2022-04-08] MEDS ORDERED: PROCHLORPERAZINE 10 MG TAB PO PRN (09:05)
[2022-04-08] MEDS ORDERED: DEXTROSE 50% SYRINGE 50 ML IVP PRN ×2 (09:07)
[2022-04-08] MEDS: CHOLECALCIFEROL 25 MCG (1000 IU) TABLET PO SCH (10:01)
[2022-04-08] MEDS: LEVOTHYROXINE 100 MCG TAB PO SCH (10:01)
[2022-04-08] MEDS: FERROUS SULFATE 325 MG TAB PO SCH (10:01)
[2022-04-08] MEDS: allopurinoL 100 MG TAB PO SCH (10:01)
[2022-04-08] MEDS: CITALOPRAM HYDROBROMIDE 20 MG TAB PO SCH (10:01)
[2022-04-08] MEDS: METOPROLOL SUCCINATE (ER) 25 MG TAB.ER.24H PO SCH (10:01)
--- NOTE | 2022-04-08 10:53 | P.CRDCN ---
History of Present Illness History of present illness: HISTORY OF PRESENT ILLNESS: This is a 71 year old female with a past medical history significant for congestive heart failure, hypertension, hyperlipidemia, diabetes, and valvular heart disease. Patient follows in the office with Dr. Oh. We have been asked to see the patient in consultation for CHF. He states she started feeling short of breath fairly acutely yesterday. She denies any excessive lower extremity edema however always has some. She does have orthopnea. She denies any change her medications. Denies any chest pain or pressure. She was given steroids, inhalers and antibiotics however no diuretics with some improvement. She was noted to have leukocytosis. Blood work shows white blood cell count 16.3, hemoglobin 7.7, sodium 134, creatinine 1.3, albumin 2.6, troponin normal, proBNP 21,500. Most recent echocardiogram obtained in October 2021 revealed ejection fraction 55-60%, mild aortic regurgitation, moderate aortic stenosis, [id number] mitral reg urgitation, mild mitral stenosis, mild tricuspid regurgitation, and mild pulmonary hypertension REVIEW OF SYSTEMS: At the time of my exam: CONSTITUTIONAL: Denies fever or chills. HEENT: Denies blurred vision, vision changes, or eye pain. Denies hemoptysis CARDIOVASCULAR: Denies chest pain.+ orthopnea. Denies PND. Denies palpitations RESPIRATORY: Denies shortness of breath. GASTROINTESTINAL: Denies abdominal pain. Denies nausea or vomiting. HEMATOLOGIC: Denies bleeding disorders. GENITOURINARY: Denies any blood in urine. SKIN: Denies pruitis. Denies rash. PHYSICAL EXAM: VITAL SIGNS: Reviewed. GENERAL: Well-developed in no acute distress. HEENT: Head is normocephalic. Pupils are equal, round. Sclerae anicteric. Mucous membranes of the mouth are moist. Neck supple. No JVD or thyromegaly LUNGS: Respirations even and unlabored. Lungs diminished HEART: Regular rate and rhythm. S1 and S2 heard. Systolic murmur noted. ABDOMEN: Soft. Nondistended. Nontender. EXTREMITIES: Normal range of motion. No clubbing or cyanosis. Peripheral pulses intact. Trace lower extremity edema. Patient was wound to left lower extremity which is currently wrapped with gauze. NEUROLOGIC: Awake and alert. Oriented x 3. ASSESSMENT: Acute on chronic respiratory failure. Likely main component of pneumonia however cannot exclude component of heart failure Chronic diastolic heart failure Hypertension Hyperlipidemia COPD with home oxygen use Valvular heart disease Diabetes Lower extremity edema, component of venous insufficiency Anemia PCM PLAN: Trial of IV diuretics however appears somewhat improved with antibiotics , steroids and inhalers. Cr improved with supportive care and monitor closely. Begin Lasix 40mg daily and monitor response. Further recs to follow. 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 glaucoma, chronic back pain and degenerative disk disease in the lumbar spine , nephrolithiasis, history of cellulitis in the legs and history of falls. The patient is also a recently quit smoker. History of Any Multi-Drug Resistant Organisms: VRE Date of last positivie culture/infection: 10/21/21 MDRO Source:: urine Past Surgical History: Appendectomy, Bowel Resection, Section, Cholecystectomy, Orthopedic Surgery, Tubal Ligation Additional Past Surgical History / Comment(s): LASER SX JETHRO EYES FOR GLAUCOMA. RT KNEE ARTHROSCOPY. UNDERWENT PERCUTANEOUS NEPHROSTOLITHOTOMY, colostomy Past Anesthesia/Blood Transfusion Reactions: No Reported Reaction Past Psychological History: Anxiety, Depression Smoking Status: Former smoker Past Alcohol Use History: None Reported Past Drug Use History: None Reported - Past Family History Mother Family Medical History: COPD Additional Family Medical History / Comment(s): emphysema, heart valve problems, in her sleep. Brother(s) Family Medical History: Cancer Additional Family Medical History / Comment(s): from oral cancer Father Brother(s) Family Medical History: Cancer Additional Family Medical History / Comment(s): heart disease Medications and Allergies Home Medications Medication Instructions Recorded Confirmed Type ARIPiprazole [Abilify] 5 mg PO HS 02/07/18 04/07/22 History metFORMIN HCL [Glucophage] 1,000 mg PO BID-W/MEALS 02/07/18 04/07/22 History Atorvastatin [Lipitor] 40 mg PO DAILY #30 tab 09/10/18 04/07/22 Rx Levothyroxine Sodium [Synthroid] 200 mcg PO DAILY 09/03/19 04/07/22 History HYDROcodone/APAP 7.5-325MG [[place] 1 tab PO Q6H PRN #12 tab 03/27/20 04/07/22 Rx 7.5-325] traZODone HCL 100 mg PO HS PRN 05/15/20 04/07/22 History Albuterol Nebulized [Ventolin 2.5 mg INHALATION RT-Q6H PRN 10/19/21 04/07/22 History Nebulized] Albuterol Sulfate [Albuterol 2 puff PO RT-Q6H PRN 10/19/21 04/07/22 History Sulfate Hfa] Cholecalciferol [Vitamin D3 (25 25 mcg PO DAILY 10/19/21 04/07/22 History Mcg = 1000 Iu)] Ferrous Sulfate [Iron (65 MG 325 mg PO Q48H 10/19/21 04/07/22 History Elemental)] Metoprolol Succinate [Toprol XL] 25 mg PO DAILY 11/07/21 04/07/22 History Citalopram Hydrobromide [CeleXA] 40 mg PO DAILY 01/30/22 04/07/22 History Budesonide-Formot 160-4.5 Mcg 2 puff INHALATION RT-BID 02/13/22 04/07/22 History [Symbicort 160-4.5 Mcg Inhaler] Ipratropium-Albuterol Nebulize 3 ml INHALATION RT-QID 02/13/22 04/07/22 History [Duoneb 0.5 mg-3 mg/3 ml Soln] allopurinoL [Zyloprim] 100 mg PO DAILY 02/13/22 04/07/22 History Furosemide [Lasix] 20 mg PO DAILY #30 tab 02/16/22 04/07/22 Rx Magnesium Oxide [Mag-Ox] 400 mg PO DAILY #30 tablet 02/16/22 04/07/22 Rx Fluconazole 200 mg PO DAILY 04/07/22 04/07/22 History Methenamine Hippurate 1 gm PO BID 04/07/22 04/07/22 History Minocycline HCl [Minocin] 100 mg PO BID 04/07/22 04/07/22 History Nystatin 100,000Unit/gm Cream 1 applic TOPICAL BID 04/07/22 04/07/22 History [Mycostatin Cream] Prochlorperazine Maleate 10 mg PO TID PRN 04/07/22 04/07/22 History Allergies Allergy/AdvReac Type Severity Reaction Status Date / Time adhesive Allergy Rash/Hives Verified 04/07/22 23:29 ciprofloxacin [From Cipro] Allergy Rash/Hives Verified 04/07/22 23:29 ciprofloxacin HCl Allergy Rash/Hives Verified 04/07/22 23:29 [From Cipro] latex Allergy Rash/Hives Verified 04/07/22 23:29 levofloxacin [From Levaquin] Allergy Rash/Hives Verified 04/07/22 23:29 nitrofurantoin Allergy Rash/Hives Verified 04/07/22 23:29 [From Macrobid] nitrofurantoin Allergy Rash/Hives Verified 04/07/22 23:29 macrocrystalline [From Macrobid] Penicillins Allergy Rash/Hives Verified 04/07/22 23:29 propoxyphene HCl Allergy Rash/Hives Verified 04/07/22 23:29 [From Darvon] propoxyphene napsylate Allergy Unknown Verified 04/07/22 23:29 [From Darvocet-N] sulfamethoxazole Allergy PIPPA Verified 04/07/22 23:29 [From Bactrim] trimethoprim [From Bactrim] Allergy PIPPA Verified 04/07/22 23:29 Physical Exam Vitals: Vital Signs Temp Pulse Pulse Resp BP BP Pulse Ox 04/08/22 10:04 82 137/52 95 04/08/22 05:41 97.8 F 90 18 171/71 94 L 04/08/22 02:40 16 04/08/22 01:18 97.7 F 85 16 155/63 92 L 04/08/22 01:00 84 16 161/70 95 04/07/22 22:14 84 24 161/65 93 L 04/07/22 20:21 81 04/07/22 20:11 78 04/07/22 18:55 98.6 F 80 22 174/57 88 L 04/07/22 18:19 98.0 F 86 20 155/60 89 L Intake and Output 04/07/22 04/08/22 04/08/22 22:59 06:59 14:59 Intake Total 500 Output Total 450 Balance 50 Intake: Oral 500 Output: Urine 450 Other: Voiding Method External Catheter Weight 68.039 kg 94 kg Results 04/08/22 05:42 04/08/22 05:42 Cardiac Enzymes 04/07/22 04/07/22 04/07/22 Range/Units 19:29 19:29 19:29 WBC 16.3 H (3.8-10.6) k/uL RBC 2.82 L (3.80-5.40) m/uL Hgb 7.7 L (11.4-16.0) gm/dL Hct 26.8 L (34.0-46.0) % MCV 94.9 (80.0-100.0) fL MCH 27.2 (25.0-35.0) pg MCHC 28.7 L (31.0-37.0) g/dL RDW 15.7 H (11.5-15.5) % Plt Count 374 (150-450) k/uL MPV 7.2 Neutrophils % 89 % Lymphocytes % 5 % Monocytes % 4 % Eosinophils % 1 % Basophils % 0 % Neutrophils # 14.5 H (1.3-7.7) k/uL Lymphocytes # 0.8 L (1.0-4.8) k/uL Monocytes # 0.6 (0-1.0) k/uL Eosinophils # 0.2 (0-0.7) k/uL Basophils # 0.0 (0-0.2) k/uL Hypochromasia Marked PT 11.8 (9.0-12.0) sec INR 1.1 (<1.2) APTT 26.1 (22.0-30.0) sec Sodium (137-145) mmol/L Potassium (3.5-5.1) mmol/L Chloride (98-107) mmol/L Carbon Dioxide (22-30) mmol/L Anion Gap mmol/L BUN (7-17) mg/dL Creatinine (0.52-1.04) mg/dL Est GFR (CKD-EPI)AfAm (>60 ml/min/1.73 sqM) Est GFR (CKD-EPI)NonAf (>60 ml/min/1.73 sqM) Glucose (74-99) mg/dL Plasma Lactic Acid Ravi (0.7-2.0) mmol/L Calcium (8.4-10.2) mg/dL Magnesium (1.6-2.3) mg/dL Total Bilirubin (0.2-1.3) mg/dL AST (14-36) U/L ALT (4-34) U/L Alkaline Phosphatase (38-126) U/L Troponin I (0.000-0.034) ng/mL NT-Pro-B Natriuret Pep pg/mL Total Protein (6.3-8.2) g/dL Albumin (3.5-5.0) g/dL Urine Color Dark Yellow Urine Appearance Cloudy H (Clear) Urine pH 6.0 (5.0-8.0) Ur Specific [place] 1.011 (1.001-1.035) Urine Protein 1+ H (Negative) Urine Glucose (UA) Negative (Negative) Urine Ketones Negative (Negative) Urine Blood Small H (Negative) Urine Nitrite Negative (Negative) Urine Bilirubin Negative (Negative) Urine Urobilinogen <2.0 (<2.0) mg/dL Ur Leukocyte Esterase Large H (Negative) Urine RBC 4 (0-5) /hpf Urine WBC 74 H (0-5) /hpf Ur Squamous Epith Cells 9 H (0-4) /hpf Urine Bacteria Rare H (None) /hpf Coronavirus (PCR) (Not Detectd) Influenza Type A RNA (Not Detectd) Influenza Type B (PCR) (Not Detectd) 04/07/22 04/07/22 04/07/22 Range/Units 19:29 19:29 19:29 WBC (3.8-10.6) k/uL RBC (3.80-5.40) m/uL Hgb (11.4-16.0) gm/dL Hct (34.0-46.0) % MCV (80.0-100.0) fL MCH (25.0-35.0) pg MCHC (31.0-37.0) g/dL RDW (11.5-15.5) % Plt Count (150-450) k/uL MPV Neutrophils % % Lymphocytes % % Monocytes % % Eosinophils % % Basophils % % Neutrophils # (1.3-7.7) k/uL Lymphocytes # (1.0-4.8) k/uL Monocytes # (0-1.0) k/uL Eosinophils # (0-0.7) k/uL Basophils # (0-0.2) k/uL Hypochromasia PT (9.0-12.0) sec INR (<1.2) APTT (22.0-30.0) sec Sodium 134 L (137-145) mmol/L Potassium 4.7 (3.5-5.1) mmol/L Chloride 100 (98-107) mmol/L Carbon Dioxide 25 (22-30) mmol/L Anion Gap 9 mmol/L BUN 24 H (7-17) mg/dL Creatinine 1.31 H (0.52-1.04) mg/dL Est GFR (CKD-EPI)AfAm 47 (>60 ml/min/1.73 sqM) Est GFR (CKD-EPI)NonAf 41 (>60 ml/min/1.73 sqM) Glucose 148 H (74-99) mg/dL Plasma Lactic Acid Ravi 1.2 (0.7-2.0) mmol/L Calcium 8.7 (8.4-10.2) mg/dL Magnesium 1.4 L (1.6-2.3) mg/dL Total Bilirubin 0.2 (0.2-1.3) mg/dL AST 18 (14-36) U/L ALT 21 (4-34) U/L Alkaline Phosphatase 124 (38-126) U/L Troponin I <0.012 (0.000-0.034) ng/mL NT-Pro-B Natriuret Pep pg/mL Total Protein 5.6 L (6.3-8.2) g/dL Albumin 2.6 L (3.5-5.0) g/dL Urine Color Urine Appearance (Clear) Urine pH (5.0-8.0) Ur Specific [place] (1.001-1.035) Urine Protein (Negative) Urine Glucose (UA) (Negative) Urine Ketones (Negative) Urine Blood (Negative) Urine Nitrite (Negative) Urine Bilirubin (Negative) Urine Urobilinogen (<2.0) mg/dL Ur Leukocyte Esterase (Negative) Urine RBC (0-5) /hpf Urine WBC (0-5) /hpf Ur Squamous Epith Cells (0-4) /hpf Urine Bacteria (None) /hpf Coronavirus (PCR) (Not Detectd) Influenza Type A RNA (Not Detectd) Influenza Type B (PCR) (Not Detectd) 04/07/22 04/07/22 04/07/22 Range/Units 19:29 19:29 19:52 WBC (3.8-10.6) k/uL RBC (3.80-5.40) m/uL Hgb (11.4-16.0) gm/dL Hct (34.0-46.0) % MCV (80.0-100.0) fL MCH (25.0-35.0) pg MCHC (31.0-37.0) g/dL RDW (11.5-15.5) % Plt Count (150-450) k/uL MPV Neutrophils % % Lymphocytes % % Monocytes % % Eosinophils % % Basophils % % Neutrophils # (1.3-7.7) k/uL Lymphocytes # (1.0-4.8) k/uL Monocytes # (0-1.0) k/uL Eosinophils # (0-0.7) k/uL Basophils # (0-0.2) k/uL Hypochromasia PT (9.0-12.0) sec INR (<1.2) APTT (22.0-30.0) sec Sodium (137-145) mmol/L Potassium (3.5-5.1) mmol/L Chloride (98-107) mmol/L Carbon Dioxide (22-30) mmol/L Anion Gap mmol/L BUN (7-17) mg/dL Creatinine (0.52-1.04) mg/dL Est GFR (CKD-EPI)AfAm (>60 ml/min/1.73 sqM) Est GFR (CKD-EPI)NonAf (>60 ml/min/1.73 sqM) Glucose (74-99) mg/dL Plasma Lactic Acid Ravi (0.7-2.0) mmol/L Calcium (8.4-10.2) mg/dL Magnesium (1.6-2.3) mg/dL Total Bilirubin (0.2-1.3) mg/dL AST (14-36) U/L ALT (4-34) U/L Alkaline Phosphatase (38-126) U/L Troponin I (0.000-0.034) ng/mL NT-Pro-B Natriuret Pep 25665 pg/mL Total Protein (6.3-8.2) g/dL Albumin (3.5-5.0) g/dL Urine Color Urine Appearance (Clear) Urine pH (5.0-8.0) Ur Specific [place] (1.001-1.035) Urine Protein (Negative) Urine Glucose (UA) (Negative) Urine Ketones (Negative) Urine Blood (Negative) Urine Nitrite (Negative) Urine Bilirubin (Negative) Urine Urobilinogen (<2.0) mg/dL Ur Leukocyte Esterase (Negative) Urine RBC (0-5) /hpf Urine WBC (0-5) /hpf Ur Squamous Epith Cells (0-4) /hpf Urine Bacteria (None) /hpf Coronavirus (PCR) Not Detected (Not Detectd) Influenza Type A RNA Not Detected (Not Detectd) Influenza Type B (PCR) Not Detected (Not Detectd) 04/08/22 04/08/22 Range/Units 05:42 05:42 WBC 13.2 H (3.8-10.6) k/uL RBC 2.80 L (3.80-5.40) m/uL Hgb 7.6 L (11.4-16.0) gm/dL Hct 26.9 L (34.0-46.0) % MCV 96.3 (80.0-100.0) fL MCH 27.3 (25.0-35.0) pg MCHC 28.3 L (31.0-37.0) g/dL RDW 15.7 H (11.5-15.5) % Plt Count 363 (150-450) k/uL MPV 7.2 Neutrophils % 96 % Lymphocytes % 2 % Monocytes % 2 % Eosinophils % 0 % Basophils % 0 % Neutrophils # 12.7 H (1.3-7.7) k/uL Lymphocytes # 0.3 L (1.0-4.8) k/uL Monocytes # 0.2 (0-1.0) k/uL Eosinophils # 0.0 (0-0.7) k/uL Basophils # 0.0 (0-0.2) k/uL Hypochromasia Marked PT (9.0-12.0) sec INR (<1.2) APTT (22.0-30.0) sec Sodium 133 L (137-145) mmol/L Potassium 5.0 (3.5-5.1) mmol/L Chloride 99 (98-107) mmol/L Carbon Dioxide 26 (22-30) mmol/L Anion Gap 8 mmol/L BUN 21 H (7-17) mg/dL Creatinine 1.16 H (0.52-1.04) mg/dL Est GFR (CKD-EPI)AfAm 55 (>60 ml/min/1.73 sqM) Est GFR (CKD-EPI)NonAf 47 (>60 ml/min/1.73 sqM) Glucose 274 H (74-99) mg/dL Plasma Lactic Acid Ravi (0.7-2.0) mmol/L Calcium 8.2 L (8.4-10.2) mg/dL Magnesium 2.0 (1.6-2.3) mg/dL Total Bilirubin 0.1 L (0.2-1.3) mg/dL AST 15 (14-36) U/L ALT 20 (4-34) U/L Alkaline Phosphatase 126 (38-126) U/L Troponin I (0.000-0.034) ng/mL NT-Pro-B Natriuret Pep pg/mL Total Protein 5.7 L (6.3-8.2) g/dL Albumin 2.6 L (3.5-5.0) g/dL Urine Color Urine Appearance (Clear) Urine pH (5.0-8.0) Ur Specific [place] (1.001-1.035) Urine Protein (Negative) Urine Glucose (UA) (Negative) Urine Ketones (Negative) Urine Blood (Negative) Urine Nitrite (Negative) Urine Bilirubin (Negative) Urine Urobilinogen (<2.0) mg/dL Ur Leukocyte Esterase (Negative) Urine RBC (0-5) /hpf Urine WBC (0-5) /hpf Ur Squamous Epith Cells (0-4) /hpf Urine Bacteria (None) /hpf Coronavirus (PCR) (Not Detectd) Influenza Type A RNA (Not Detectd) Influenza Type B (PCR) (Not Detectd) Coagulation 04/07/22 Range/Units 19:29 PT 11.8 (9.0-12.0) sec APTT 26.1 (22.0-30.0) sec CBC 04/07/22 04/08/22 Range/Units 19:29 05:42 WBC 16.3 H 13.2 H (3.8-10.6) k/uL RBC 2.82 L 2.80 L (3.80-5.40) m/uL Hgb 7.7 L 7.6 L (11.4-16.0) gm/dL Hct 26.8 L 26.9 L (34.0-46.0) % Plt Count 374 363 (150-450) k/uL Comprehensive Metabolic Panel 04/07/22 04/08/22 Range/Units 19:29 05:42 Sodium 134 L 133 L (137-145) mmol/L Potassium 4.7 5.0 (3.5-5.1) mmol/L Chloride 100 99 (98-107) mmol/L Carbon Dioxide 25 26 (22-30) mmol/L BUN 24 H 21 H (7-17) mg/dL Creatinine 1.31 H 1.16 H (0.52-1.04) mg/dL Glucose 148 H 274 H (74-99) mg/dL Calcium 8.7 8.2 L (8.4-10.2) mg/dL AST 18 15 (14-36) U/L ALT 21 20 (4-34) U/L Alkaline Phosphatase 124 126 (38-126) U/L Total Protein 5.6 L 5.7 L (6.3-8.2) g/dL Albumin 2.6 L 2.6 L (3.5-5.0) g/dL Current Medications Generic Name Dose Route Start Last Admin Trade Name Freq PRN Reason Stop Dose Admin Acetaminophen 650 mg 04/07/22 22:41 Acetaminophen Tab 325 Mg Tab PO Q6HR PRN Mild Pain or Fever > 100.5 Hydrocodone Bitart/Acetaminophen 1 each 04/08/22 09:05 Hydrocodone/Apap 7.5-325mg 1 Each Tab PO Q6H PRN Pain Albuterol Sulfate 2.5 mg 04/08/22 09:05 Albuterol Nebulized 2.5 Mg/3 Ml INHALATION RT-Q6H PRN Shortness Of Breath Albuterol/Ipratropium 3 ml 04/08/22 12:00 Ipratropium-Albuterol 3 Ml Neb INHALATION RT-QID KIET Allopurinol 100 mg 04/08/22 09:15 04/08/22 10:01 Allopurinol 100 Mg Tab PO 100 mg DAILY KIET Administration Aripiprazole 5 mg 04/07/22 22:45 04/07/22 22:59 Aripiprazole 5 Mg Tab PO 5 mg HS KIET Administration Atorvastatin Calcium 40 mg 04/09/22 09:00 Atorvastatin 40 Mg Tab PO DAILY KIET Budesonide/Formoterol Fumarate 2 puff 04/08/22 20:00 Symbicort 160-4.5 Mcg Inhaler INHALATION RT-BID [facility] Cholecalciferol 25 mcg 04/08/22 09:15 04/08/22 10:01 Cholecalciferol 25 Mcg (1000 Iu) Tablet PO 25 mcg DAILY KIET Administration Citalopram Hydrobromide 40 mg 04/08/22 09:15 04/08/22 10:01 Citalopram Hydrobromide 20 Mg Tab PO 40 mg DAILY [facility] Administration Dextrose/Water 25 ml 04/08/22 09:07 Dextrose 50% Syringe 50 Ml IVP PER PROTOCOL PRN Hypoglycemia Protocol Dextrose/Water 50 ml 04/08/22 09:07 Dextrose 50% Syringe 50 Ml IVP PER PROTOCOL PRN Hypoglycemia Protocol Ferrous Sulfate 325 mg 04/08/22 09:15 04/08/22 10:01 Ferrous Sulfate 325 Mg Tab PO 325 mg Q48H [facility] Administration Insulin Aspart 0 unit 04/08/22 12:30 Insulin Aspart (Novolog) 100 Unit/Ml Vial SQ ACHS [facility] Protocol Levothyroxine Sodium 200 mcg 04/08/22 09:15 04/08/22 10:01 Levothyroxine 100 Mcg Tab PO 200 mcg DAILY@0630 [facility] Administration Magnesium Oxide 400 mg 04/09/22 09:00 Magnesium Oxide 400 Mg Tab PO DAILY [facility] Metoprolol Succinate 25 mg 04/08/22 09:15 04/08/22 10:01 Metoprolol Succinate (Er) 25 Mg Tab.Er.24h PO 25 mg DAILY [facility] Administration Miscellaneous Information 1 each 04/07/22 21:25 Magnesium Replacement Protocol 1 Each Misc MISCELLANE DAILY PRN Per Protocol Protocol Naloxone HCl 0.2 mg 04/07/22 22:41 Naloxone 0.4 Mg/Ml 1 Ml Vial IV Q2M PRN Opioid Reversal Non-Formulary Medication 1 gm 04/08/22 21:00 Methenamine Hippurate [Methenamine Hippurate] PO BID [facility] Nystatin 1 applic 04/08/22 21:00 Nystatin 100,000unit/Gm Cream 30 Gm Tube TOPICAL BID [facility] Protocol Ondansetron HCl 4 mg 04/07/22 22:41 Ondansetron 4 Mg/2 Ml Vial IVP Q8HR PRN Nausea And Vomiting Prochlorperazine Maleate 10 mg 04/08/22 09:05 Prochlorperazine 10 Mg Tab PO TID PRN Nausea Trazodone HCl 100 mg 04/08/22 09:05 Trazodone Hcl 100 Mg Tab PO HS PRN Sedation Intake and Output 04/07/22 04/08/22 04/08/22 22:59 06:59 14:59 Intake Total 500 Output Total 450 Balance 50 Intake: Oral 500 Output: Urine 450 Other: Voiding Method External Catheter Weight 68.039 kg 94 kg 04/08/22 05:42 04/08/22 05:42
[2022-04-08 11:10] LABS: Glucose,Whole Blood 398 mg/dL (70-110)
[2022-04-08] MEDS: IPRATROPIUM-ALBUTEROL 3 ML NEB INHALATION SCH ×3 (11:21→19:42)
[2022-04-08] MEDS: FUROSEMIDE 10 MG/ML 4 ML VIAL IV SCH (11:41)
[2022-04-08] MEDS: INSULIN ASPART (NovoLOG) 100 UNIT/ML VIAL SQ SCH ×3 (12:13→20:03)
[2022-04-08] MEDS: HYDROcodone/APAP 7.5-325MG 1 EACH TAB PO PRN ×2 (13:21→20:04)
[2022-04-08 15:17] LABS: Glucose,Whole Blood 189 mg/dL (70-110)
[2022-04-08 17:16] LABS: Glucose,Whole Blood 232 mg/dL (70-110)
[2022-04-08] MEDS: SYMBICORT 160-4.5 MCG INHALER INHALATION SCH (19:42)
[2022-04-08 20:01] LABS: Glucose,Whole Blood 318 mg/dL (70-110)
[2022-04-08] MEDS: traZODone HCL 100 MG TAB PO PRN (20:03)
[2022-04-08] MEDS: NYSTATIN 100,000UNIT/GM CREAM 30 GM TUBE TOPICAL SCH (20:03)
[2022-04-08] MEDS: ARIPiprazole 5 MG TAB PO SCH (20:04)
[2022-04-08] MEDS: NON FORMULARY DRUG (Methenamine Hippurate [Methenamine Hippurate] 1 GM Tablet) PO SCH (20:05)
[2022-04-08] MEDS ORDERED: ALPRAZolam 0.5 MG TAB PO STA (21:54)
--- NOTE | 2022-04-08 23:27 | P.HPIM ---
History of Present Illness H&P Date: 04/08/22 Chief Complaint: Shortness of breath Patient is a 71-year-old female with a known history of hypertension, hyperlipidemia, osteoarthritis, COPD and basal skin carcinoma of the eyelid, chronic back pain and degenerative disc disease, anxiety/depression and previous history of smoking presents to ER with complaints of worsening shortness of breath for the past 2 days. Patient was at home and alible gradually worsening shortness of breath. Patient does use oxygen daily nightly nasal cannula at home. Patient states that her heart rate is also increased to 115. Denies any complaints of chest pain patient was found to have increased leg swelling. No palpitations. No abdominal pain. No nausea vomiting or diaphoresis. No cough or sputum production. Denied any recent illnesses. No recent trauma. Chest x-ray showed increased interstitial density compared to old exam and that could be acute interstitial pneumonia or heart failure. EKG showed sinus rhythm low QRS voltage in precordial leads. Laboratory data showed WBC 16.3 hemoglobin 7.7 and platelets 374 Sodium 134 potassium 4.7 chloride 100 bicarb is 25 BUN 24 and creatinine 1.31 Blood sugar is 148 Magnesium 1.4 proBNP to 1500 and albumin 2.6 Urinalysis showed cloudy 1+ protein small blood large leukocyte esterase and elevated WBCs. COVID-19 PCR not detected. Review of Systems Constitutional: Patient denies any fever or chills . Generalized weakness. Abdomen: Patient denied any nausea or vomiting or abd. pain Cardiovascular: Patient denies any chest pain . + short of breath no palpitations. Leg swelling. Respiratory: patient denied any cough is from production. +shortness of breath Neurologic: Patient denied any numbness or tingling headache. Musculoskeletal: Patient denies any complaints of joint swelling or deformity. Skin: Negative Psychiatric: Negative Endocrine: No heat or cold intolerance. No recent weight gain. Genitourinary: No dysuria or hematuria. All other 14 point ROS negative except the above Past Medical History Past Medical History: Asthma, Chest Pain / Angina, COPD, Diabetes Mellitus, Hyperlipidemia, Hypertension, Osteoarthritis (OA), Respiratory Disorder, Skin Disorder, Thyroid Disorder Additional Past Medical History / Comment(s): 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 glaucoma, chronic back pain and degenerative disk disease in the lumbar spine , nephrolithiasis, history of cellulitis in the legs and history of falls. The patient is also a recently quit smoker. History of Any Multi-Drug Resistant Organisms: VRE Date of last positivie culture/infection: 10/21/21 MDRO Source:: urine Past Surgical History: Appendectomy, Bowel Resection, Section, Cholecystectomy, Orthopedic Surgery, Tubal Ligation Additional Past Surgical History / Comment(s): LASER SX JETHRO EYES FOR GLAUCOMA. RT KNEE ARTHROSCOPY. UNDERWENT PERCUTANEOUS NEPHROSTOLITHOTOMY, colostomy Past Anesthesia/Blood Transfusion Reactions: No Reported Reaction Past Psychological History: Anxiety, Depression Smoking Status: Former smoker Past Alcohol Use History: None Reported Past Drug Use History: None Reported - Past Family History Mother Family Medical History: COPD Additional Family Medical History / Comment(s): emphysema, heart valve problems, in her sleep. Brother(s) Family Medical History: Cancer Additional Family Medical History / Comment(s): from oral cancer Father Brother(s) Family Medical History: Cancer Additional Family Medical History / Comment(s): heart disease Medications and Allergies Home Medications Medication Instructions Recorded Confirmed Type ARIPiprazole [Abilify] 5 mg PO HS 02/07/18 04/07/22 History metFORMIN HCL [Glucophage] 1,000 mg PO BID-W/MEALS 02/07/18 04/07/22 History Atorvastatin [Lipitor] 40 mg PO DAILY #30 tab 09/10/18 04/07/22 Rx Levothyroxine Sodium [Synthroid] 200 mcg PO DAILY 09/03/19 04/07/22 History HYDROcodone/APAP 7.5-325MG [[place] 1 tab PO Q6H PRN #12 tab 03/27/20 04/07/22 Rx 7.5-325] traZODone HCL 100 mg PO HS PRN 05/15/20 04/07/22 History Albuterol Nebulized [Ventolin 2.5 mg INHALATION RT-Q6H PRN 10/19/21 04/07/22 History Nebulized] Albuterol Sulfate [Albuterol 2 puff PO RT-Q6H PRN 10/19/21 04/07/22 History Sulfate Hfa] Cholecalciferol [Vitamin D3 (25 25 mcg PO DAILY 10/19/21 04/07/22 History Mcg = 1000 Iu)] Ferrous Sulfate [Iron (65 MG 325 mg PO Q48H 10/19/21 04/07/22 History Elemental)] Metoprolol Succinate [Toprol XL] 25 mg PO DAILY 11/07/21 04/07/22 History Citalopram Hydrobromide [CeleXA] 40 mg PO DAILY 01/30/22 04/07/22 History Budesonide-Formot 160-4.5 Mcg 2 puff INHALATION RT-BID 02/13/22 04/07/22 History [Symbicort 160-4.5 Mcg Inhaler] Ipratropium-Albuterol Nebulize 3 ml INHALATION RT-QID 02/13/22 04/07/22 History [Duoneb 0.5 mg-3 mg/3 ml Soln] allopurinoL [Zyloprim] 100 mg PO DAILY 02/13/22 04/07/22 History Furosemide [Lasix] 20 mg PO DAILY #30 tab 02/16/22 04/07/22 Rx Magnesium Oxide [Mag-Ox] 400 mg PO DAILY #30 tablet 02/16/22 04/07/22 Rx Fluconazole 200 mg PO DAILY 04/07/22 04/07/22 History Methenamine Hippurate 1 gm PO BID 04/07/22 04/07/22 History Minocycline HCl [Minocin] 100 mg PO BID 04/07/22 04/07/22 History Nystatin 100,000Unit/gm Cream 1 applic TOPICAL BID 04/07/22 04/07/22 History [Mycostatin Cream] Prochlorperazine Maleate 10 mg PO TID PRN 04/07/22 04/07/22 History Allergies Allergy/AdvReac Type Severity Reaction Status Date / Time adhesive Allergy Rash/Hives Verified 04/07/22 23:29 ciprofloxacin [From Cipro] Allergy Rash/Hives Verified 04/07/22 23:29 ciprofloxacin HCl Allergy Rash/Hives Verified 04/07/22 23:29 [From Cipro] latex Allergy Rash/Hives Verified 04/07/22 23:29 levofloxacin [From Levaquin] Allergy Rash/Hives Verified 04/07/22 23:29 nitrofurantoin Allergy Rash/Hives Verified 04/07/22 23:29 [From Macrobid] nitrofurantoin Allergy Rash/Hives Verified 04/07/22 23:29 macrocrystalline [From Macrobid] Penicillins Allergy Rash/Hives Verified 04/07/22 23:29 propoxyphene HCl Allergy Rash/Hives Verified 04/07/22 23:29 [From Darvon] propoxyphene napsylate Allergy Unknown Verified 04/07/22 23:29 [From Darvocet-N] sulfamethoxazole Allergy PIPPA Verified 04/07/22 23:29 [From Bactrim] trimethoprim [From Bactrim] Allergy PIPPA Verified 04/07/22 23:29 Physical Exam Vitals: Vital Signs Temp Pulse Pulse Resp BP BP Pulse Ox 04/08/22 11:45 98.9 F 78 15 162/69 94 L 04/08/22 11:33 82 04/08/22 11:21 84 04/08/22 10:04 82 137/52 95 04/08/22 05:41 97.8 F 90 18 171/71 94 L 04/08/22 02:40 16 04/08/22 01:18 97.7 F 85 16 155/63 92 L 04/08/22 01:00 84 16 161/70 95 04/07/22 22:14 84 24 161/65 93 L 04/07/22 20:21 81 04/07/22 20:11 78 04/07/22 18:55 98.6 F 80 22 174/57 88 L 04/07/22 18:19 98.0 F 86 20 155/60 89 L Intake and Output 04/07/22 04/08/22 04/08/22 22:59 06:59 14:59 Intake Total 500 Output Total 450 Balance 50 Intake: Oral 500 Output: Urine 450 Other: Voiding Method External Catheter Weight 68.039 kg 94 kg PHYSICAL EXAMINATION: Patient is lying in the bed comfortably, no acute distress, awake alert and oriented.. HEENT: Normocephalic. Neck is supple. Pupils reactive. Nostrils clear. Oral ca vity is moist. Neck reveals no JVD, carotid bruits, or thyromegaly. CHEST EXAMINATION: Trachea is central. Symmetrical expansion. Bibasilar diminished sounds. Scattered crackles.. CARDIAC: Normal S1, S2 with no gallops. No murmurs ABDOMEN: Soft. Bowel sounds present. Nontender. No organomegaly. No abdominal bruits. Extremities: Bilateral trace edema. No clubbing or cyanosis Neurologically awake, alert, oriented x3 with well-coordinated movements. No focal deficits noted Skin: No rash or skin lesions. Psychiatric: Coperative. Nonsuicidal, Musculoskeletal: No joint swelling or deformity. Normal range of motion. Results CBC & Chem 7: 04/09/22 04:47 04/09/22 10:36 Labs: Abnormal Lab Results - Last 24 Hours (Table) 04/07/22 04/07/22 04/07/22 Range/Units 19:29 19:29 19:29 WBC 16.3 H (3.8-10.6) k/uL RBC 2.82 L (3.80-5.40) m/uL Hgb 7.7 L (11.4-16.0) gm/dL Hct 26.8 L (34.0-46.0) % MCHC 28.7 L (31.0-37.0) g/dL RDW 15.7 H (11.5-15.5) % Neutrophils # 14.5 H (1.3-7.7) k/uL Lymphocytes # 0.8 L (1.0-4.8) k/uL Sodium 134 L (137-145) mmol/L BUN 24 H (7-17) mg/dL Creatinine 1.31 H (0.52-1.04) mg/dL Glucose 148 H (74-99) mg/dL POC Glucose (mg/dL) (70-110) mg/dL Calcium (8.4-10.2) mg/dL Magnesium 1.4 L (1.6-2.3) mg/dL Total Bilirubin (0.2-1.3) mg/dL Total Protein 5.6 L (6.3-8.2) g/dL Albumin 2.6 L (3.5-5.0) g/dL Urine Appearance Cloudy H (Clear) Urine Protein 1+ H (Negative) Urine Blood Small H (Negative) Ur Leukocyte Esterase Large H (Negative) Urine WBC 74 H (0-5) /hpf Ur Squamous Epith Cells 9 H (0-4) /hpf Urine Bacteria Rare H (None) /hpf 04/08/22 04/08/22 04/08/22 Range/Units 05:42 05:42 11:08 WBC 13.2 H (3.8-10.6) k/uL RBC 2.80 L (3.80-5.40) m/uL Hgb 7.6 L (11.4-16.0) gm/dL Hct 26.9 L (34.0-46.0) % MCHC 28.3 L (31.0-37.0) g/dL RDW 15.7 H (11.5-15.5) % Neutrophils # 12.7 H (1.3-7.7) k/uL Lymphocytes # 0.3 L (1.0-4.8) k/uL Sodium 133 L (137-145) mmol/L BUN 21 H (7-17) mg/dL Creatinine 1.16 H (0.52-1.04) mg/dL Glucose 274 H (74-99) mg/dL POC Glucose (mg/dL) 398 H (70-110) mg/dL Calcium 8.2 L (8.4-10.2) mg/dL Magnesium (1.6-2.3) mg/dL Total Bilirubin 0.1 L (0.2-1.3) mg/dL Total Protein 5.7 L (6.3-8.2) g/dL Albumin 2.6 L (3.5-5.0) g/dL Urine Appearance (Clear) Urine Protein (Negative) Urine Blood (Negative) Ur Leukocyte Esterase (Negative) Urine WBC (0-5) /hpf Ur Squamous Epith Cells (0-4) /hpf Urine Bacteria (None) /hpf Thrombosis Risk Factor Assmnt - DVT/VTE Prophylaxis DVT/VTE Prophylaxis: Pharmacologic Prophylaxis ordered - Choose All That Apply Any of the Below Risk Factors Present?: Yes Each Factor Represents 1 point: Abnormal pulmonary function (COPD), Heart failure (<1month), Obesity (BMI >25), Serious lung disease incl. pneumonia (< 1month) Each Risk Factor Represents 2 Points: Age 61-74 years Thrombosis Risk Factor Assessment Total Risk Factor Score: 6 Thrombosis Risk Factor Assessment Level: High Risk Assessment and Plan Assessment: Shortness of breath secondary to pneumonia and CHF. Acute on chronic hypoxic respiratory failure secondary to above Acute interstitial pneumonia Possible UTI Acute on chronic CHF with diastolic dysfunction Acute kidney injury likely prerenal COPD on 3 L oxygen via nasal cannula. Morbid obesity with BMI 41.9 Hypertension Hypokalemia Diabetes type 2 [id number] Osteoarthritis Hypothyroidism History of cellulitis of legs DVT prophylaxis with heparin subcu Plan: Patient will be continued on antibiotics in the form of ceftriaxone and azithromycin. Continue with IV Lasix 40 mg daily. Continue with duo nebs and Symbicort. Continue with insulin sliding scale and monitor blood sugars closely. Continue to follow closely. Cardiology is on board. 2D echocardiogram was ordered. PT OT will be consulted and follow-up closely. Time with Patient: Greater than 30
[2022-04-09] MEDS: HEPARIN SODIUM,PORCINE/PF 5,000 UNIT/0.5 ML SYRINGE SQ SCH ×3 (02:51→16:02)
[2022-04-09] MEDS: HYDROcodone/APAP 7.5-325MG 1 EACH TAB PO PRN ×4 (03:51→20:29)
[2022-04-09] MEDS: LEVOTHYROXINE 100 MCG TAB PO SCH (06:08)
[2022-04-09 07:02] LABS: Glucose,Whole Blood 172 mg/dL (70-110)
[2022-04-09] MEDS: ATORVASTATIN 40 MG TAB PO SCH (08:18)
[2022-04-09] MEDS: CHOLECALCIFEROL 25 MCG (1000 IU) TABLET PO SCH (08:18)
[2022-04-09] MEDS: allopurinoL 100 MG TAB PO SCH (08:18)
[2022-04-09] MEDS: CITALOPRAM HYDROBROMIDE 20 MG TAB PO SCH (08:19)
[2022-04-09] MEDS: MAGNESIUM OXIDE 400 MG TAB PO SCH (08:19)
[2022-04-09] MEDS: METOPROLOL SUCCINATE (ER) 25 MG TAB.ER.24H PO SCH (08:19)
[2022-04-09] MEDS: INSULIN ASPART (NovoLOG) 100 UNIT/ML VIAL SQ SCH ×4 (08:20→21:46)
[2022-04-09] MEDS: FUROSEMIDE 10 MG/ML 4 ML VIAL IV SCH (08:20)
[2022-04-09] MEDS: NON FORMULARY DRUG (Methenamine Hippurate [Methenamine Hippurate] 1 GM Tablet) PO SCH ×2 (08:34→21:40)
[2022-04-09 09:32] LABS: ALT 22 U/L (8-44); AST 17 U/L (13-35); African American GFR (CKD) 54.5 (60.0-200.0); Albumin 2.6 g/dL (3.8-4.9); Albumin/Globulin Ratio 0.97 (1.60-3.17); Alkaline Phosphatase 96 U/L (41-126); BUN/Creat Ratio 18.19 Ratio (12.00-20.00); Blood Urea Nitrogen 21.1 mg/dL (9.0-27.0); Calcium 8.2 mg/dL (8.7-10.3); Carbon Dioxide 26.5 mmol/L (20.0-27.5); Chloride 100 mmol/L (96-109); Globulin 2.6 g/dL (1.6-3.3); Glucose 156 mg/dL (70-110); Potassium 4.6 mmol/L (3.5-5.5); Sodium 136 mmol/L (135-145); Total Bilirubin <0.15 mg/dL (0.30-1.20); Total Protein 5.2 g/dL (6.2-8.2)
[2022-04-09 09:50] LABS: Basophils # (A) 0.01 X 10*3/uL (0.00-0.10); Basophils % (A) 0.1 %; Eosinophils # (A) 0.04 X 10*3/uL (0.04-0.35); Eosinophils % (A) 0.3 %; HCT 22.9 % (37.2-46.3); HGB 6.5 g/dL (12.0-15.0); Lymphocytes # (A) 1.11 X 10*3/uL (0.90-5.00); Lymphocytes % (A) 8.9 %; MCH 27.2 pg (27.0-32.0); MCHC 28.4 g/dL (32.0-37.0); MCV 95.8 fL (80.0-97.0); Mean Platelet Volume 9.2 fL (9.5-12.2); Monocytes # (A) 0.92 X 10*3/uL (0.20-1.00); Monocytes % (A) 7.4 %; NRBC Per 100 WBC 0 /100 WBCS (0.0-0.0); Neutrophils % (A) 82.3 %; Platelet Count 325 X 10*3/uL (140-440); RBC 2.39 X 10*6/uL (4.10-5.20); RDW 15.9 % (11.5-14.5); WBC 12.41 X 10*3/uL (4.50-10.00)
[2022-04-09] MEDS: NYSTATIN 100,000UNIT/GM CREAM 30 GM TUBE TOPICAL SCH ×2 (09:59→21:46)
--- NOTE | 2022-04-09 10:22 | P.PN ---
Subjective HISTORY OF PRESENT ILLNESS: This is a 71 year old female with a past medical history significant for congestive heart failure, hypertension, hyperlipidemia, diabetes, and valvular heart disease. Patient follows in the office with Dr. Oh. We have been asked to see the patient in consultation for CHF. He states she started feeling short of breath fairly acutely yesterday. She denies any excessive lower extremity edema however always has some. She does have orthopnea. She denies any change her medications. Denies any chest pain or pressure. She was given steroids, inhalers and antibiotics however no diuretics with some improvement. She was noted to have leukocytosis. Blood work shows white blood cell count 16.3, hemoglobin 7.7, sodium 134, creatinine 1.3, albumin 2.6, troponin normal, proBNP 21,500. Most recent echocardiogram obtained in October 2021 revealed ejection fraction 55-60%, mild aortic regurgitation, moderate aortic stenosis, [id number] mitral regurgitation, mild mitral stenosis, mild tricuspid regurgitation, and mild pulmonary hypertension 04/09 Patient seen and examined. Patient denies any chest pain or pressure. Still feels fatigued. Feels shortness breath is somewhat improving. Hemoglobin down to 6.5 however denies any hematochezia or melena. Has been on the Lasix 40 mg IV daily with good urine output. PHYSICAL EXAM: VITAL SIGNS: Reviewed. GENERAL: Well-developed in no acute distress. HEENT: Head is normocephalic. Pupils are equal, round. Sclerae anicteric. Mucous membranes of the mouth are moist. Neck supple. No JVD or thyromegaly LUNGS: Respirations even and unlabored. Lungs diminished HEART: Regular rate and rhythm. S1 and S2 heard. Systolic murmur noted. ABDOMEN: Soft. Nondistended. Nontender. EXTREMITIES: Normal range of motion. No clubbing or cyanosis. Peripheral pul ses intact. Trace lower extremity edema. Patient was wound to left lower extremity which is currently wrapped with gauze. NEUROLOGIC: Awake and alert. Oriented x 3. ASSESSMENT: Acute on chronic respiratory failure. Likely main component of pneumonia however cannot exclude component of heart failure Acute on chronic diastolic heart failure Hypertension Hyperlipidemia COPD with home oxygen use Valvular heart disease Diabetes Lower extremity edema, component of venous insufficiency Anemia PCM PLAN: Continue with IV diuretics but much of improvement occurred with steroids and inhalers and antibiotics. Monitor creatinine closely. Transfuse as needed with no source of hematochezia or melena. Further recommendations to follow. Objective - Vital Signs Vital signs: Vital Signs Temp 98.1 F 04/09/22 03:51 Pulse 74 04/09/22 08:16 Resp 16 04/09/22 03:51 BP 150/69 04/09/22 08:16 Pulse Ox 96 04/09/22 08:16 FiO2 Intake & Output 04/08/22 04/09/22 04/09/22 18:59 06:59 18:59 Intake Total 822 Output Total 1100 700 700 Balance -1100 122 -700 Weight 94 kg Intake: Oral 822 Output: Urine 1100 700 700 Other: Voiding Method External Catheter External Catheter External Catheter - Labs CBC & Chem 7: 04/09/22 04:47 04/09/22 04:47 Labs: Abnormal Lab Results - Last 24 Hours (Table) 04/08/22 04/08/22 04/08/22 Range/Units 11:08 15:15 17:14 WBC (4.50-10.00) X 10*3/uL RBC (4.10-5.20) X 10*6/uL Hgb (12.0-15.0) g/dL Hct (37.2-46.3) % MCHC (32.0-37.0) g/dL RDW (11.5-14.5) % MPV (9.5-12.2) fL Immature Gran # (0.00-0.04) X 10*3/uL Neutrophils # (1.80-7.70) X 10*3/uL Anion Gap (10.00-18.00) mmol/L Est GFR (CKD-EPI)AfAm (60.0-200.0) Est GFR (CKD-EPI)NonAf (60.0-200.0) Glucose (70-110) mg/dL POC Glucose (mg/dL) 398 H 189 H 232 H (70-110) mg/dL Calcium (8.7-10.3) mg/dL Total Bilirubin (0.30-1.20) mg/dL Total Protein (6.2-8.2) g/dL Albumin (3.8-4.9) g/dL Albumin/Globulin Ratio (1.60-3.17) g/dL 04/08/22 04/09/22 04/09/22 Range/Units 19:58 04:47 04:47 WBC 12.41 H (4.50-10.00) X 10*3/uL RBC 2.39 L (4.10-5.20) X 10*6/uL Hgb 6.5 L* (12.0-15.0) g/dL Hct 22.9 L (37.2-46.3) % MCHC 28.4 L (32.0-37.0) g/dL RDW 15.9 H (11.5-14.5) % MPV 9.2 L (9.5-12.2) fL Immature Gran # 0.13 H (0.00-0.04) X 10*3/uL Neutrophils # 10.20 H (1.80-7.70) X 10*3/uL Anion Gap 9.30 L (10.00-18.00) mmol/L Est GFR (CKD-EPI)AfAm 54.5 L (60.0-200.0) Est GFR (CKD-EPI)NonAf 47.0 L (60.0-200.0) Glucose 156 H (70-110) mg/dL POC Glucose (mg/dL) 318 H (70-110) mg/dL Calcium 8.2 L (8.7-10.3) mg/dL Total Bilirubin <0.15 L (0.30-1.20) mg/dL Total Protein 5.2 L (6.2-8.2) g/dL Albumin 2.6 L (3.8-4.9) g/dL Albumin/Globulin Ratio 0.97 L (1.60-3.17) g/dL 04/09/22 Range/Units 07:02 WBC (4.50-10.00) X 10*3/uL RBC (4.10-5.20) X 10*6/uL Hgb (12.0-15.0) g/dL Hct (37.2-46.3) % MCHC (32.0-37.0) g/dL RDW (11.5-14.5) % MPV (9.5-12.2) fL Immature Gran # (0.00-0.04) X 10*3/uL Neutrophils # (1.80-7.70) X 10*3/uL Anion Gap (10.00-18.00) mmol/L Est GFR (CKD-EPI)AfAm (60.0-200.0) Est GFR (CKD-EPI)NonAf (60.0-200.0) Glucose (70-110) mg/dL POC Glucose (mg/dL) 172 H (70-110) mg/dL Calcium (8.7-10.3) mg/dL Total Bilirubin (0.30-1.20) mg/dL Total Protein (6.2-8.2) g/dL Albumin (3.8-4.9) g/dL Albumin/Globulin Ratio (1.60-3.17) g/dL Microbiology - Last 24 Hours (Table) 04/07/22 19:29 Urine Culture - Preliminary Urine,Voided
[2022-04-09] MEDS: SYMBICORT 160-4.5 MCG INHALER INHALATION SCH ×2 (10:50→20:59)
[2022-04-09] MEDS: IPRATROPIUM-ALBUTEROL 3 ML NEB INHALATION SCH ×4 (10:50→20:59)
[2022-04-09 11:05] LABS: Glucose,Whole Blood 169 mg/dL (70-110)
[2022-04-09 11:07] LABS: African American GFR (CKD) 57 (>60 ml/min/1.73 sqM); Albumin 2.6 g/dL (3.5-5.0); Anion Gap 6 mmol/L; Blood Urea Nitrogen 23 mg/dL (7-17); Calcium 8.3 mg/dL (8.4-10.2); Carbon Dioxide 29 mmol/L (22-30); Chloride 99 mmol/L (98-107); Glucose 139 mg/dL (74-99); Non-African American GFR(CKD) 49 (>60 ml/min/1.73 sqM); Phosphorus 3.7 mg/dL (2.5-4.5); Potassium 4.4 mmol/L (3.5-5.1); Sodium 134 mmol/L (137-145)
[2022-04-09 17:09] LABS: Glucose,Whole Blood 199 mg/dL (70-110)
[2022-04-09] MEDS: methylPREDNISolone SOD SUCCI 125 MG/2 ML VIAL IV SCH (17:30)
[2022-04-09] MEDS ORDERED: ALPRAZolam 0.25 MG TAB PO STA (19:10)
[2022-04-09 20:13] LABS: Glucose,Whole Blood 272 mg/dL (70-110)
[2022-04-09] MEDS: ARIPiprazole 5 MG TAB PO SCH (21:21)
[2022-04-09] MEDS: traZODone HCL 100 MG TAB PO PRN (21:22)
[2022-04-10] MEDS: methylPREDNISolone SOD SUCCI 125 MG/2 ML VIAL IV SCH ×3 (00:21→12:35)
[2022-04-10] MEDS: HEPARIN SODIUM,PORCINE/PF 5,000 UNIT/0.5 ML SYRINGE SQ SCH ×3 (00:21→17:02)
[2022-04-10] MEDS: HYDROcodone/APAP 7.5-325MG 1 EACH TAB PO PRN ×5 (00:23→18:06)
--- NOTE | 2022-04-10 01:54 | P.PN ---
Subjective Progress Note Date: 04/09/22 Patient is a 71-year-old female with a known history of hypertension, hyperlipidemia, osteoarthritis, COPD and basal skin carcinoma of the eyelid, chronic back pain and degenerative disc disease, anxiety/depression and previous history of smoking presents to ER with complaints of worsening shortness of br eath for the past 2 days. Patient was at home and alible gradually worsening shortness of breath. Patient does use oxygen daily nightly nasal cannula at home. Patient states that her heart rate is also increased to 115. Denies any complaints of chest pain patient was found to have increased leg s welling. No palpitations. No abdominal pain. No nausea vomiting or diaphoresis. No cough or sputum production. Denied any recent illnesses. No recent trauma. Chest x-ray showed increased interstitial density compared to old exam and that could be acute interstitial pneumonia or heart failure. EKG showed sinus rhythm low QRS voltage in precordial leads. Laboratory data showed WBC 16.3 hemoglobin 7.7 and platelets 374 Sodium 134 potassium 4.7 chloride 100 bicarb is 25 BUN 24 and creatinine 1.31 Blood sugar is 148 Magnesium 1.4 proBNP to 1500 and albumin 2.6 Urinalysis showed cloudy 1+ protein small blood large leukocyte esterase and elevated WBCs. COVID-19 PCR not detected. 04/09/2022 Patient is currently lying in bed. Still complains of shortness of breath. Does have bilateral diffuse wheezing present. Otherwise leg swelling is better. No nausea vomiting abdominal pain or diarrhea. No cough or sputum production. No chest pain. No headache or dizziness lightheadedness. Blood pressure is elevated. Patient is being current on IV Lasix. Cardiology is on board. Laboratory test showed sodium 134 potassium 4.4 chloride 99 bicarb is 29 BUN 23 and creatinine 1.12 and albumin 2.6. Patient's hemoglobin level is 6.5 today. Will be given 1 unit of PRBC Current medications reviewed. Objective - Vital Signs Vital signs: Vital Signs Temp 97.8 F 04/09/22 20:30 Pulse 88 04/09/22 21:11 Resp 18 04/09/22 20:30 BP 176/72 04/09/22 20:30 Pulse Ox 94 L 04/09/22 20:30 FiO2 Intake & Output 04/09/22 04/09/22 04/10/22 06:59 18:59 06:59 Intake Total 822 310 Output Total 700 1600 Balance 122 -1290 Weight 94 kg Intake: Oral 822 Blood Product 310 Rc As-1 Unit 310 [id number] Output: Urine 700 1600 Other: Voiding Method External Catheter External Catheter External Catheter # Bowel Movements 3 - Exam PHYSICAL EXAMINATION: Patient is lying in the bed comfortably, no acute distress, awake alert and oriented.. HEENT: Normocephalic. Neck is supple. Pupils reactive. Nostrils clear. Oral cavity is moist. Neck reveals no JVD, carotid bruits, or thyromegaly. CHEST EXAMINATION: Trachea is central. Symmetrical expansion. Bilateral wheezing and diminished sounds basilar.\. Scattered crackles.. CARDIAC: Normal S1, S2 with no gallops. No murmurs ABDOMEN: Soft. Bowel sounds present. Nontender. No organomegaly. No abdominal bruits. Extremities: Bilateral trace edema. No clubbing or cyanosis Neurologically awake, alert, oriented x3 with well-coordinated movements. No focal deficits noted Skin: No rash or skin lesions. Psychiatric: Coperative. Nonsuicidal, Musculoskeletal: No joint swelling or deformity. Normal range of motion. - Labs CBC & Chem 7: 04/09/22 04:47 04/09/22 10:36 Labs: Abnormal Lab Results - Last 24 Hours (Table) 04/09/22 04/09/22 04/09/22 Range/Units 04:47 04:47 07:02 WBC 12.41 H (4.50-10.00) X 10*3/uL RBC 2.39 L (4.10-5.20) X 10*6/uL Hgb 6.5 L* (12.0-15.0) g/dL Hct 22.9 L (37.2-46.3) % MCHC 28.4 L (32.0-37.0) g/dL RDW 15.9 H (11.5-14.5) % MPV 9.2 L (9.5-12.2) fL Immature Gran # 0.13 H (0.00-0.04) X 10*3/uL Neutrophils # 10.20 H (1.80-7.70) X 10*3/uL Sodium (137-145) mmol/L Anion Gap 9.30 L (10.00-18.00) mmol/L BUN (7-17) mg/dL Creatinine (0.52-1.04) mg/dL Est GFR (CKD-EPI)AfAm 54.5 L (60.0-200.0) Est GFR (CKD-EPI)NonAf 47.0 L (60.0-200.0) Glucose 156 H (70-110) mg/dL POC Glucose (mg/dL) 172 H (70-110) mg/dL Calcium 8.2 L (8.7-10.3) mg/dL Total Bilirubin <0.15 L (0.30-1.20) mg/dL Total Protein 5.2 L (6.2-8.2) g/dL Albumin 2.6 L (3.8-4.9) g/dL Albumin/Globulin Ratio 0.97 L (1.60-3.17) g/dL Crossmatch 04/09/22 04/09/22 04/09/22 Range/Units 10:36 10:36 11:03 WBC (4.50-10.00) X 10*3/uL RBC (4.10-5.20) X 10*6/uL Hgb (12.0-15.0) g/dL Hct (37.2-46.3) % MCHC (32.0-37.0) g/dL RDW (11.5-14.5) % MPV (9.5-12.2) fL Immature Gran # (0.00-0.04) X 10*3/uL Neutrophils # (1.80-7.70) X 10*3/uL Sodium 134 L (137-145) mmol/L Anion Gap (10.00-18.00) mmol/L BUN 23 H (7-17) mg/dL Creatinine 1.12 H (0.52-1.04) mg/dL Est GFR (CKD-EPI)AfAm (60.0-200.0) Est GFR (CKD-EPI)NonAf (60.0-200.0) Glucose 139 H (70-110) mg/dL POC Glucose (mg/dL) 169 H (70-110) mg/dL Calcium 8.3 L (8.7-10.3) mg/dL Total Bilirubin (0.30-1.20) mg/dL Total Protein (6.2-8.2) g/dL Albumin 2.6 L (3.8-4.9) g/dL Albumin/Globulin Ratio (1.60-3.17) g/dL Crossmatch See Detail 04/09/22 04/09/22 Range/Units 17:08 20:04 WBC (4.50-10.00) X 10*3/uL RBC (4.10-5.20) X 10*6/uL Hgb (12.0-15.0) g/dL Hct (37.2-46.3) % MCHC (32.0-37.0) g/dL RDW (11.5-14.5) % MPV (9.5-12.2) fL Immature Gran # (0.00-0.04) X 10*3/uL Neutrophils # (1.80-7.70) X 10*3/uL Sodium (137-145) mmol/L Anion Gap (10.00-18.00) mmol/L BUN (7-17) mg/dL Creatinine (0.52-1.04) mg/dL Est GFR (CKD-EPI)AfAm (60.0-200.0) Est GFR (CKD-EPI)NonAf (60.0-200.0) Glucose (70-110) mg/dL POC Glucose (mg/dL) 199 H 272 H (70-110) mg/dL Calcium (8.7-10.3) mg/dL Total Bilirubin (0.30-1.20) mg/dL Total Protein (6.2-8.2) g/dL Albumin (3.8-4.9) g/dL Albumin/Globulin Ratio (1.60-3.17) g/dL Crossmatch Microbiology - Last 24 Hours (Table) 04/07/22 19:29 Urine Culture - Preliminary Urine,Voided Gram Neg Bacilli Assessment and Plan Assessment: Shortness of breath secondary to pneumonia and CHF. Acute COPD exacerbation Acute on chronic hypoxic respiratory failure secondary to above Acute interstitial pneumonia Possible UTI Acute on chronic CHF with diastolic dysfunction Acute kidney injury likely prerenal COPD on 3 L oxygen via nasal cannula. Morbid obesity with BMI 41.9 Hypertension Hypokalemia Diabetes type 2 uxg-yhsvwci-qubqlmlgd Osteoarthritis Hypothyroidism History of cellulitis of legs DVT prophylaxis with heparin subcu Plan: Patient will be continued on antibiotics in the form of ceftriaxone and azithromycin. Continue with IV Lasix 40 mg daily. Continue with duo nebs and Symbicort. added IV steroids Continue with insulin sliding scale and monitor blood sugars closely. Continue to follow closely. Cardiology is on board. 2D echocardiogram was ordered. PT OT will be consulted and follow-up closely. Patient's hemoglobin level is 6.5 today. Will be given 1 unit of PRBC Time with Patient: Greater than 30
[2022-04-10] MEDS: LEVOTHYROXINE 100 MCG TAB PO SCH (05:26)
[2022-04-10] MEDS: SYMBICORT 160-4.5 MCG INHALER INHALATION SCH ×2 (07:10→20:13)
[2022-04-10] MEDS: IPRATROPIUM-ALBUTEROL 3 ML NEB INHALATION SCH ×4 (07:10→20:13)
[2022-04-10 07:11] LABS: Glucose,Whole Blood 309 mg/dL (70-110)
[2022-04-10] MEDS: ATORVASTATIN 40 MG TAB PO SCH (08:29)
[2022-04-10] MEDS: MAGNESIUM OXIDE 400 MG TAB PO SCH (08:30)
[2022-04-10] MEDS: FUROSEMIDE 10 MG/ML 4 ML VIAL IV SCH (08:30)
[2022-04-10] MEDS: FERROUS SULFATE 325 MG TAB PO SCH (08:30)
[2022-04-10] MEDS: CITALOPRAM HYDROBROMIDE 20 MG TAB PO SCH (08:30)
[2022-04-10] MEDS: allopurinoL 100 MG TAB PO SCH (08:30)
[2022-04-10] MEDS: CHOLECALCIFEROL 25 MCG (1000 IU) TABLET PO SCH (08:30)
[2022-04-10] MEDS: METOPROLOL SUCCINATE (ER) 25 MG TAB.ER.24H PO SCH (08:30)
[2022-04-10] MEDS: INSULIN ASPART (NovoLOG) 100 UNIT/ML VIAL SQ SCH ×4 (08:30→20:41)
[2022-04-10] MEDS: NYSTATIN 100,000UNIT/GM CREAM 30 GM TUBE TOPICAL SCH ×2 (08:31→20:54)
[2022-04-10] MEDS: NON FORMULARY DRUG (Methenamine Hippurate [Methenamine Hippurate] 1 GM Tablet) PO SCH ×2 (08:31→20:53)
[2022-04-10 09:13] LABS: Basophils # (A) 0.01 X 10*3/uL (0.00-0.10); Basophils % (A) 0.1 %; Eosinophils # (A) 0 X 10*3/uL (0.04-0.35); Eosinophils % (A) 0 %; HCT 28.3 % (37.2-46.3); HGB 8.3 g/dL (12.0-15.0); Immature Grans, Automated 1.4 %; Lymphocytes # (A) 0.29 X 10*3/uL (0.90-5.00); Lymphocytes % (A) 2.3 %; MCH 28.3 pg (27.0-32.0); MCHC 29.3 g/dL (32.0-37.0); MCV 96.6 fL (80.0-97.0); Mean Platelet Volume 9.4 fL (9.5-12.2); Monocytes # (A) 0.12 X 10*3/uL (0.20-1.00); NRBC Per 100 WBC 0 /100 WBCS (0.0-0.0); Neutrophils # (A) 11.85 X 10*3/uL (1.80-7.70); Neutrophils % (A) 95.2 %; Platelet Count 331 X 10*3/uL (140-440); RBC 2.93 X 10*6/uL (4.10-5.20); RDW 15.9 % (11.5-14.5); WBC 12.44 X 10*3/uL (4.50-10.00)
[2022-04-10 09:59] LABS: African American GFR (CKD) 58.1 (60.0-200.0); Anion Gap 9.5 mmol/L (10.00-18.00); BUN/Creat Ratio 20.73 Ratio (12.00-20.00); Blood Urea Nitrogen 22.8 mg/dL (9.0-27.0); Calcium 8.2 mg/dL (8.7-10.3); Carbon Dioxide 28.5 mmol/L (20.0-27.5); Non-African American GFR(CKD) 50.1 (60.0-200.0); Potassium 5.5 mmol/L (3.5-5.5)
[2022-04-10] MEDS: amLODIPine 10 MG TAB PO SCH (11:01)
--- NOTE | 2022-04-10 11:22 | P.PN ---
Subjective Progress Note Date: 04/10/22 This a pleasant 71-year-old female patient with past medical history of congestive heart failure, hypertension, hyperlipidemia, diabetes valvular heart disease. She follows in the office with Dr. Oh. She presented to the hospital with shortness of breath that occurred suddenly. She also had some or thopnea but denies any worsening of her lower extremity edema. NT proBNP was elevated at 21,500. Echocardiogram from October of this year revealed an ejection fraction of 55-60% with mild aortic regurgitation, moderate aortic stenosis, mild to moderate mitral regurgitation, mild mitral stenosis, mild tricuspid regurgitation and mild pulmonary hypertension. She's been on Lasix 40 mg IV push daily. He was down to 6.5, she received one unit of packed red blood cells and hemoglobin this morning is 8.3. Overall she's feeling quite a bit better. Her breathing has improved. She denies any blood in the urine or stool. She's been followed in the past by Dr. Martell. Objective - Vital Signs Vital signs: Vital Signs Temp 98.3 F 04/10/22 05:00 Pulse 86 04/10/22 05:00 Resp 18 04/10/22 05:00 BP 176/76 04/10/22 07:15 Pulse Ox 96 04/10/22 05:00 FiO2 Intake & Output 04/09/22 04/10/22 04/10/22 18:59 06:59 18:59 Intake Total 310 500 Output Total 1600 500 701 Balance -1290 0 -701 Weight 95 kg Intake: Oral 500 Blood Product 310 Rc As-1 Unit 310 [id number] Output: Urine 1600 500 700 Stool 1 Other: Voiding Method External Catheter External Catheter # Bowel Movements 3 - Exam PHYSICAL EXAMINATION: HEENT: Head is atraumatic, normocephalic. Pupils equal, round. Neck is supple. There is no elevated jugular venous pressure. HEART EXAMINATION: Heart sounds regular, S1 and S2 normal. Systolic ejection murmur at the base. CHEST EXAMINATION: Lungs are diminished bilaterally. No chest wall tenderness is noted on palpation or with deep breathing. ABDOMEN: Soft, nontender. Bowel sounds are heard. No organomegaly noted. EXTREMITIES: 2+ peripheral pulses with trace lower extremity edema, bilateral Jaxson wraps in place. NEUROLOGIC patient is awake, alert and oriented x3. . - Labs CBC & Chem 7: 04/10/22 03:58 04/10/22 03:58 Labs: Abnormal Lab Results - Last 24 Hours (Table) 04/09/22 04/09/22 04/09/22 Range/Units 04:47 10:36 10:36 WBC 12.41 H (4.50-10.00) X 10*3/uL RBC 2.39 L (4.10-5.20) X 10*6/uL Hgb 6.5 L* (12.0-15.0) g/dL Hct 22.9 L (37.2-46.3) % MCHC 28.4 L (32.0-37.0) g/dL RDW 15.9 H (11.5-14.5) % MPV 9.2 L (9.5-12.2) fL Immature Gran # 0.13 H (0.00-0.04) X 10*3/uL Neutrophils # 10.20 H (1.80-7.70) X 10*3/uL Lymphocytes # (0.90-5.00) X 10*3/uL Monocytes # (0.20-1.00) X 10*3/uL Eosinophils # (0.04-0.35) X 10*3/uL Sodium 134 L (137-145) mmol/L BUN 23 H (7-17) mg/dL Creatinine 1.12 H (0.52-1.04) mg/dL Glucose 139 H (74-99) mg/dL POC Glucose (mg/dL) (70-110) mg/dL Calcium 8.3 L (8.4-10.2) mg/dL Albumin 2.6 L (3.5-5.0) g/dL Procalcitonin (0.02-0.09) ng/mL Crossmatch See Detail 04/09/22 04/09/22 04/09/22 Range/Units 11:03 17:08 20:04 WBC (4.50-10.00) X 10*3/uL RBC (4.10-5.20) X 10*6/uL Hgb (12.0-15.0) g/dL Hct (37.2-46.3) % MCHC (32.0-37.0) g/dL RDW (11.5-14.5) % MPV (9.5-12.2) fL Immature Gran # (0.00-0.04) X 10*3/uL Neutrophils # (1.80-7.70) X 10*3/uL Lymphocytes # (0.90-5.00) X 10*3/uL Monocytes # (0.20-1.00) X 10*3/uL Eosinophils # (0.04-0.35) X 10*3/uL Sodium (137-145) mmol/L BUN (7-17) mg/dL Creatinine (0.52-1.04) mg/dL Glucose (74-99) mg/dL POC Glucose (mg/dL) 169 H 199 H 272 H (70-110) mg/dL Calcium (8.4-10.2) mg/dL Albumin (3.5-5.0) g/dL Procalcitonin (0.02-0.09) ng/mL Crossmatch 04/10/22 04/10/22 04/10/22 Range/Units 03:58 03:58 07:09 WBC 12.44 H (4.50-10.00) X 10*3/uL RBC 2.93 L (4.10-5.20) X 10*6/uL Hgb 8.3 L (12.0-15.0) g/dL Hct 28.3 L (37.2-46.3) % MCHC 29.3 L (32.0-37.0) g/dL RDW 15.9 H (11.5-14.5) % MPV 9.4 L (9.5-12.2) fL Immature Gran # 0.17 H (0.00-0.04) X 10*3/uL Neutrophils # 11.85 H (1.80-7.70) X 10*3/uL Lymphocytes # 0.29 L (0.90-5.00) X 10*3/uL Monocytes # 0.12 L (0.20-1.00) X 10*3/uL Eosinophils # 0 L (0.04-0.35) X 10*3/uL Sodium (137-145) mmol/L BUN (7-17) mg/dL Creatinine (0.52-1.04) mg/dL Glucose (74-99) mg/dL POC Glucose (mg/dL) 309 H (70-110) mg/dL Calcium (8.4-10.2) mg/dL Albumin (3.5-5.0) g/dL Procalcitonin 0.13 H (0.02-0.09) ng/mL Crossmatch Microbiology - Last 24 Hours (Table) 04/07/22 19:29 Urine Culture - Preliminary Urine,Voided Gram Neg Bacilli Assessment and Plan Assessment: 1 acute on chronic respiratory failure, likely main component of pneumonia however cannot exclude component of heart failure #2 acute on chronic diastolic heart failure exacerbated by underlying anemia #3 hypertension #4 valvular heart disease #5 hyperlipidemia #6 COPD with home oxygen use #7 diabetes #8 anemia Plan: From cardiology's perspective patient may be discharged home when okay with primary. She'll follow-up in the office as an outpatient with Dr. Oh. VOLLEYBALL COACH note has been reviewed, I agree with a documented findings and plan of care. Patient was seen and examined.
[2022-04-10 12:03] LABS: Glucose,Whole Blood 407 mg/dL (70-110)
[2022-04-10] MEDS: INSULIN DETEMIR (LEVEMIR) 100 UNIT/ML SYR SQ SCH ×2 (13:57→20:46)
--- NOTE | 2022-04-10 14:05 | XR ---
EXAMINATION TYPE: XR chest 1V portable DATE OF EXAM: 04/10/2022 COMPARISON: 04/07/2022 HISTORY: Shortness of breath TECHNIQUE: Single frontal view of the chest is obtained. FINDINGS: Heart is enlarged. Diffuse interstitial pattern with bilateral consolidation and small eff usion. No pneumothorax. [place] on shoulder. Sclerotic lesion in the left humerus likely related to o ld infarct. IMPRESSION: Correlate for CHF.
[2022-04-10 16:03] LABS: Glucose,Whole Blood 410 mg/dL (70-110)
[2022-04-10] MEDS: methylPREDNISolone SOD SUCCI 40 MG/ML 1 ML VIAL IV SCH (17:01)
[2022-04-10 17:04] LABS: Glucose,Whole Blood 438 mg/dL (70-110)
[2022-04-10] MEDS ORDERED: INSULIN ASPART (NovoLOG) 100 UNIT/ML VIAL SQ SCH (17:30)
[2022-04-10 20:11] LABS: Glucose,Whole Blood 456 mg/dL (70-110)
[2022-04-10] MEDS ORDERED: INSULIN ASPART (NovoLOG) 100 UNIT/ML VIAL SQ ONE (20:30)
[2022-04-10] MEDS: ARIPiprazole 5 MG TAB PO SCH (20:46)
[2022-04-10] MEDS: traZODone HCL 100 MG TAB PO PRN (20:46)
--- NOTE | 2022-04-10 23:51 | P.PN ---
Subjective Progress Note Date: 04/10/22 Patient is a 71-year-old female with a known history of hypertension, hyperlipidemia, osteoarthritis, COPD and basal skin carcinoma of the eyelid, chronic back pain and degenerative disc disease, anxiety/depression and previous history of smoking presents to ER with complaints of worsening shortness of breath for the past 2 days. Patient was at home and alible gradually worsening shortness of breath. Patient does use oxygen daily nightly nasal cannula at home. Patient states that her heart rate is also increased to 115. Denies any complaints of chest pain patient was found to have increased leg swelling. No palpitations. No abdominal pain. No nausea vomiting or diaphoresis. No cough or sputum production. Denied any recent illnesses. No recent trauma. Chest x-ray showed increased interstitial density compared to old exam and that could be acute interstitial pneumonia or heart failure. EKG showed sinus rhythm low QRS voltage in precordial leads. Laboratory data showed WBC 16.3 hemoglobin 7.7 and platelets 374 Sodium 134 potassium 4.7 chloride 100 bicarb is 25 BUN 24 and creatinine 1.31 Blood sugar is 148 Magnesium 1.4 proBNP to 1500 and albumin 2.6 Urinalysis showed cloudy 1+ protein small blood large leukocyte esterase and elevated WBCs. COVID-19 PCR not detected. 04/09/2022 Patient is currently lying in bed. Still complains of shortness of breath. Does have bilateral diffuse wheezing present. Otherwise leg swelling is better. No nausea vomiting abdominal pain or diarrhea. No cough or sputum production. No chest pain. No headache or dizziness lightheadedness. Blood pressure is elevated. Patient is being current on IV Lasix. Cardiology is on board. Laboratory test showed sodium 134 potassium 4.4 chloride 99 bicarb is 29 BUN 23 and creatinine 1.12 and albumin 2.6. Patient's hemoglobin level is 6.5 today. Will be given 1 unit of PRBC Current medications reviewed. 04/10/2022 Patient is seen and evaluated in follow-up this morning with cardiology following. Patient received 1 unit of prbc yesterday and hemoglobin is 8.3 today. Patient is continued on daily IV lasix for chf acute exacerbation and cardiology following. Patient reports her breathing has improved some. Patient also with pneumonia and UTI with cultures showing ecoli and patient is continued on IV ceftriaxone and will continue. Blood sugars are uncontrolled and elevated, possibly induced by IV steroids and will increase the dose of long acting, continue sliding scale, and also pre-meal insulin. Patient is afebrile and denies chest pain or palpitations. No reports of nausea or vomiting and tolerating diet. BP elevated and will add norvasc. Review of systems: Constitutional: No reports of fatigue, fever, or chills Cardiovascular: No reports of chest pain or palpitations Respiratory: No reports of worsening shortness of breath or cough GI: No reports of nausea, vomiting, or diarrhea : No reports of dysuria or retention Neurovascular: No reports of weakness or numbness All medications have been reviewed Active Medications Acetaminophen (Acetaminophen Tab 325 Mg Tab) 650 mg PO Q6HR PRN PRN Reason: Mild Pain or Fever > 100.5 Hydrocodone Bitart/Acetaminophen (Hydrocodone/Apap 7.5-325mg 1 Each Tab) 1 each PO Q4H PRN PRN Reason: Pain Last Admin: 04/10/22 08:41 Dose: 1 each Albuterol Sulfate (Albuterol Nebulized 2.5 Mg/3 Ml) 2.5 mg INHALATION RT-Q6H PRN PRN Reason: Shortness Of Breath Albuterol/Ipratropium (Ipratropium-Albuterol 3 Ml Neb) 3 ml INHALATION RT-QID [facility] Last Admin: 04/10/22 07:10 Dose: Not Given Allopurinol (Allopurinol 100 Mg Tab) 100 mg PO DAILY [facility] Last Admin: 04/10/22 08:30 Dose: 100 mg Amlodipine Besylate (Amlodipine 10 Mg Tab) 10 mg PO DAILY [facility] Aripiprazole (Aripiprazole 5 Mg Tab) 5 mg PO HS [facility] Last Admin: 04/09/22 21:21 Dose: 5 mg Atorvastatin Calcium (Atorvastatin 40 Mg Tab) 40 mg PO DAILY [facility] Last Admin: 04/10/22 08:29 Dose: 40 mg Budesonide/Formoterol Fumarate (Symbicort 160-4.5 Mcg Inhaler) 2 puff INHALATION RT-BID [facility] Last Admin: 04/10/22 07:10 Dose: Not Given Cholecalciferol (Cholecalciferol 25 Mcg (1000 Iu) Tablet) 25 mcg PO DAILY [facility] Last Admin: 04/10/22 08:30 Dose: 25 mcg Citalopram Hydrobromide (Citalopram Hydrobromide 20 Mg Tab) 40 mg PO DAILY [facility] Last Admin: 04/10/22 08:30 Dose: 40 mg Dextrose/Water (Dextrose 50% Syringe 50 Ml) 25 ml IVP PER PROTOCOL PRN; Protocol PRN Reason: Hypoglycemia Dextrose/Water (Dextrose 50% Syringe 50 Ml) 50 ml IVP PER PROTOCOL PRN; Protocol PRN Reason: Hypoglycemia Ferrous Sulfate (Ferrous Sulfate 325 Mg Tab) 325 mg PO Q48H [facility] Last Admin: 04/10/22 08:30 Dose: 325 mg Furosemide (Furosemide 10 Mg/Ml 4 Ml Vial) 40 mg IV DAILY [facility] Last Admin: 04/10/22 08:30 Dose: 40 mg Heparin Sodium (Porcine) (Heparin Sodium,Porcine/Pf 5,000 Unit/0.5 Ml Syringe) 5,000 unit SQ Q8HR [facility] Last Admin: 04/10/22 08:30 Dose: 5,000 unit Ceftriaxone Sodium 1 gm/ (Sodium Chloride) 50 mls @ 100 mls/hr IVPB Q24HR [facility]; Protocol Last Admin: 04/10/22 08:29 Dose: 100 mls/hr Insulin Aspart (Insulin Aspart (Novolog) 100 Unit/Ml Vial) 0 unit SQ ACHS [facility]; Protocol Last Admin: 04/10/22 08:30 Dose: 8 unit Levothyroxine Sodium (Levothyroxine 100 Mcg Tab) 200 mcg PO DAILY@0630 [facility] Last Admin: 04/10/22 05:26 Dose: 200 mcg Magnesium Oxide (Magnesium Oxide 400 Mg Tab) 400 mg PO DAILY [facility] Last Admin: 04/10/22 08:30 Dose: 400 mg Methylprednisolone Sodium Succinate (Methylprednisolone Sod Succi 125 Mg/2 Ml Vial) 60 mg IV Q6HR [facility] Last Admin: 04/10/22 05:26 Dose: 60 mg Metoprolol Succinate (Metoprolol Succinate (Er) 25 Mg Tab.Er.24h) 25 mg PO DAILY [facility] Last Admin: 04/10/22 08:30 Dose: 25 mg Miscellaneous Information (Magnesium Replacement Protocol 1 Each Misc) 1 each MISCELLANE DAILY PRN; Protocol PRN Reason: Per Protocol Naloxone HCl (Naloxone 0.4 Mg/Ml 1 Ml Vial) 0.2 mg IV Q2M PRN PRN Reason: Opioid Reversal Non-Formulary Medication (Methenamine Hippurate [Methenamine Hippurate]) 1 gm PO BID [facility] Last Admin: 04/10/22 08:31 Dose: Not Given Nystatin (Nystatin 100,000unit/Gm Cream 30 Gm Tube) 1 applic TOPICAL BID KIET; Protocol Last Admin: 04/10/22 08:31 Dose: 1 applic Ondansetron HCl (Ondansetron 4 Mg/2 Ml Vial) 4 mg IVP Q8HR PRN PRN Reason: Nausea And Vomiting Prochlorperazine Maleate (Prochlorperazine 10 Mg Tab) 10 mg PO TID PRN PRN Reason: Nausea Last Admin: 04/09/22 14:52 Dose: 10 mg Trazodone HCl (Trazodone Hcl 100 Mg Tab) 100 mg PO HS PRN PRN Reason: Sedation Last Admin: 04/09/22 21: Dose: 100 mg Physical exam: Patient is lying in the bed comfortably, awake alert and oriented.. HEENT: Normocephalic. Neck is supple. Pupils reactive. Nostrils clear. Oral cavity is moist. Neck reveals no JVD, carotid bruits, or thyromegaly. CHEST EXAMINATION: Trachea is central. Symmetrical expansion. Bilateral wheezing and diminished sounds bilaterally. Scattered crackles.. CARDIAC: S1, S2 muffled ABDOMEN: Soft. Bowel sounds present. Nontender. No organomegaly. No abdominal bruits. Extremities: Bilateral trace edema. No clubbing or cyanosis Neurologically awake, alert, oriented x3 with well-coordinated movements. No focal deficits noted Skin: No rash or skin lesions. Psychiatric: Cooperative. Non-suicidal, Musculoskeletal: No joint swelling or deformity. Normal range of motion. Assessment: Shortness of breath secondary to pneumonia and CHF. Acute COPD exacerbation Acute on chronic hypoxic respiratory failure secondary to above Acute interstitial pneumonia Acute UTI, present on admission with ecoli Acute on chronic CHF with diastolic dysfunction Acute kidney injury likely prerenal COPD on 3 L oxygen via nasal cannula. Morbid obesity with BMI 41.9 Hypertension Hypokalemia Diabetes type 2 [id number], uncontrolled with hyperglycemia Osteoarthritis Hypothyroidism History of cellulitis of legs DVT prophylaxis with heparin subcu Plan: Patient will be continued on antibiotics in the form of ceftriaxone. Continue with IV Lasix 40 mg daily for another day. Urine cultures finalized showing ecoli and will continue ceftriaxone Continue with duo nebs and Symbicort. IV steroids although will decrease the dose Continue with insulin sliding scale, long acting, and will add pre-meal and monitor blood sugars closely. Continue accuchecks a[facility] Cardiology is on board. 2D echocardiogram was ordered. PT OT to evaluate. Patient's hemoglobin level improved after 1 unit of PRBC yesterday to 8.3. Recommend am labs Possible discharge in 24-48 hours The impression and plan of care has been dictated by Marilin Mcneill, Nurse Practitioner as directed. Dr. Miguel MD I have performed a history and examination and MDM of this patient, discussed the same with the dictator, and agree with the dictator's assessment and plan as written ,documented as a scribe. Based on total visit time, I have performed more than 50% of the visit. Objective - Vital Signs Vital signs: Vital Signs Temp 98.3 F 04/10/22 05:00 Pulse 86 04/10/22 05:00 Resp 18 04/10/22 05:00 BP 176/76 04/10/22 07:15 Pulse Ox 96 04/10/22 05:00 FiO2 Intake & Output 04/09/22 04/10/22 04/10/22 18:59 06:59 18:59 Intake Total 310 500 Output Total 1600 500 701 Balance -1290 0 -701 Weight 95 kg Intake: Oral 500 Blood Product 310 Rc As-1 Unit 310 [id number] Output: Urine 1600 500 700 Stool 1 Other: Voiding Method External Catheter External Catheter # Bowel Movements 3 - Labs CBC & Chem 7: 04/10/22 03:58 04/10/22 03:58 Labs: Abnormal Lab Results - Last 24 Hours (Table) 04/09/22 04/09/22 04/09/22 Range/Units 10:36 10:36 11:03 WBC (4.50-10.00) X 10*3/uL RBC (4.10-5.20) X 10*6/uL Hgb (12.0-15.0) g/dL Hct (37.2-46.3) % MCHC (32.0-37.0) g/dL RDW (11.5-14.5) % MPV (9.5-12.2) fL Immature Gran # (0.00-0.04) X 10*3/uL Neutrophils # (1.80-7.70) X 10*3/uL Lymphocytes # (0.90-5.00) X 10*3/uL Monocytes # (0.20-1.00) X 10*3/uL Eosinophils # (0.04-0.35) X 10*3/uL Sodium 134 L (137-145) mmol/L Chloride (96-109) mmol/L Carbon Dioxide (20.0-27.5) mmol/L Anion Gap (10.00-18.00) mmol/L BUN 23 H (7-17) mg/dL Creatinine 1.12 H (0.52-1.04) mg/dL Est GFR (CKD-EPI)AfAm (60.0-200.0) Est GFR (CKD-EPI)NonAf (60.0-200.0) BUN/Creatinine Ratio (12.00-20.00) Ratio Glucose 139 H (74-99) mg/dL POC Glucose (mg/dL) 169 H (70-110) mg/dL Calcium 8.3 L (8.4-10.2) mg/dL Albumin 2.6 L (3.5-5.0) g/dL Procalcitonin (0.02-0.09) ng/mL Crossmatch See Detail 04/09/22 04/09/22 04/10/22 Range/Units 17:08 20:04 03:58 WBC 12.44 H (4.50-10.00) X 10*3/uL RBC 2.93 L (4.10-5.20) X 10*6/uL Hgb 8.3 L (12.0-15.0) g/dL Hct 28.3 L (37.2-46.3) % MCHC 29.3 L (32.0-37.0) g/dL RDW 15.9 H (11.5-14.5) % MPV 9.4 L (9.5-12.2) fL Immature Gran # 0.17 H (0.00-0.04) X 10*3/uL Neutrophils # 11.85 H (1.80-7.70) X 10*3/uL Lymphocytes # 0.29 L (0.90-5.00) X 10*3/uL Monocytes # 0.12 L (0.20-1.00) X 10*3/uL Eosinophils # 0 L (0.04-0.35) X 10*3/uL Sodium (137-145) mmol/L Chloride (96-109) mmol/L Carbon Dioxide (20.0-27.5) mmol/L Anion Gap (10.00-18.00) mmol/L BUN (7-17) mg/dL Creatinine (0.52-1.04) mg/dL Est GFR (CKD-EPI)AfAm (60.0-200.0) Est GFR (CKD-EPI)NonAf (60.0-200.0) BUN/Creatinine Ratio (12.00-20.00) Ratio Glucose (74-99) mg/dL POC Glucose (mg/dL) 199 H 272 H (70-110) mg/dL Calcium (8.4-10.2) mg/dL Albumin (3.5-5.0) g/dL Procalcitonin (0.02-0.09) ng/mL Crossmatch 04/10/22 04/10/22 04/10/22 Range/Units 03:58 03:58 07:09 WBC (4.50-10.00) X 10*3/uL RBC (4.10-5.20) X 10*6/uL Hgb (12.0-15.0) g/dL Hct (37.2-46.3) % MCHC (32.0-37.0) g/dL RDW (11.5-14.5) % MPV (9.5-12.2) fL Immature Gran # (0.00-0.04) X 10*3/uL Neutrophils # (1.80-7.70) X 10*3/uL Lymphocytes # (0.90-5.00) X 10*3/uL Monocytes # (0.20-1.00) X 10*3/uL Eosinophils # (0.04-0.35) X 10*3/uL Sodium 133 L (137-145) mmol/L Chloride 95 L (96-109) mmol/L Carbon Dioxide 28.5 H (20.0-27.5) mmol/L Anion Gap 9.50 L (10.00-18.00) mmol/L BUN (7-17) mg/dL Creatinine (0.52-1.04) mg/dL Est GFR (CKD-EPI)AfAm 58.1 L (60.0-200.0) Est GFR (CKD-EPI)NonAf 50.1 L (60.0-200.0) BUN/Creatinine Ratio 20.73 H (12.00-20.00) Ratio Glucose 309 H (74-99) mg/dL POC Glucose (mg/dL) 309 H (70-110) mg/dL Calcium 8.2 L (8.4-10.2) mg/dL Albumin (3.5-5.0) g/dL Procalcitonin 0.13 H (0.02-0.09) ng/mL Crossmatch Microbiology - Last 24 Hours (Table) 04/07/22 19:29 Urine Culture - Preliminary Urine,Voided Gram Neg Bacilli
[2022-04-11] MEDS: HEPARIN SODIUM,PORCINE/PF 5,000 UNIT/0.5 ML SYRINGE SQ SCH ×3 (01:14→15:21)
[2022-04-11] MEDS: methylPREDNISolone SOD SUCCI 40 MG/ML 1 ML VIAL IV SCH ×2 (01:15→08:38)
[2022-04-11] MEDS: HYDROcodone/APAP 7.5-325MG 1 EACH TAB PO PRN ×3 (02:08→16:16)
[2022-04-11] MEDS: LEVOTHYROXINE 100 MCG TAB PO SCH (06:06)
[2022-04-11 07:06] LABS: Glucose,Whole Blood 443 mg/dL (70-110)
[2022-04-11] MEDS: IPRATROPIUM-ALBUTEROL 3 ML NEB INHALATION SCH ×4 (07:20→19:17)
[2022-04-11] MEDS: SYMBICORT 160-4.5 MCG INHALER INHALATION SCH ×2 (07:20→19:17)
[2022-04-11 07:27] LABS: African American GFR (CKD) 70 (>60 ml/min/1.73 sqM); Anion Gap 10 mmol/L; Blood Urea Nitrogen 26 mg/dL (7-17); Carbon Dioxide 28 mmol/L (22-30); Chloride 93 mmol/L (98-107); Glucose 408 mg/dL (74-99); Non-African American GFR(CKD) 61 (>60 ml/min/1.73 sqM); Potassium 4.8 mmol/L (3.5-5.1); Sodium 131 mmol/L (137-145)
[2022-04-11] MEDS ORDERED: INSULIN ASPART (NovoLOG) 100 UNIT/ML VIAL SQ SCH (07:30)
[2022-04-11] MEDS: INSULIN DETEMIR (LEVEMIR) 100 UNIT/ML SYR SQ SCH ×3 (08:37→20:49)
[2022-04-11] MEDS: FUROSEMIDE 10 MG/ML 4 ML VIAL IV SCH (08:38)
[2022-04-11] MEDS: MAGNESIUM OXIDE 400 MG TAB PO SCH (08:38)
[2022-04-11] MEDS: CITALOPRAM HYDROBROMIDE 20 MG TAB PO SCH (08:38)
[2022-04-11] MEDS: allopurinoL 100 MG TAB PO SCH (08:38)
[2022-04-11] MEDS: amLODIPine 10 MG TAB PO SCH (08:39)
[2022-04-11] MEDS: INSULIN ASPART (NovoLOG) 100 UNIT/ML VIAL SQ SCH ×4 (08:39→20:48)
[2022-04-11] MEDS: CHOLECALCIFEROL 25 MCG (1000 IU) TABLET PO SCH (08:39)
[2022-04-11] MEDS: ATORVASTATIN 40 MG TAB PO SCH (08:39)
[2022-04-11] MEDS: NON FORMULARY DRUG (Methenamine Hippurate [Methenamine Hippurate] 1 GM Tablet) PO SCH ×2 (08:40→21:59)
[2022-04-11] MEDS: METOPROLOL SUCCINATE (ER) 25 MG TAB.ER.24H PO SCH (08:42)
[2022-04-11 10:21] LABS: HCT 29.3 % (37.2-46.3); HGB 8.8 g/dL (12.0-15.0); MCH 28.5 pg (27.0-32.0); MCV 94.8 fL (80.0-97.0); Mean Platelet Volume 9.3 fL (9.5-12.2); NRBC Per 100 WBC 0 /100 WBCS (0.0-0.0); Platelet Count 351 X 10*3/uL (140-440); RBC 3.09 X 10*6/uL (4.10-5.20); RDW 15.7 % (11.5-14.5); WBC 11.79 X 10*3/uL (4.50-10.00)
[2022-04-11 11:06] LABS: Glucose,Whole Blood 333 mg/dL (70-110)
--- NOTE | 2022-04-11 11:17 | P.PN ---
Subjective Progress Note Date: 04/11/22 This a pleasant 71-year-old female patient with past medical history of congestive heart failure, hypertension, hyperlipidemia, diabetes valvular heart disease. She follows in the office with Dr. Oh. She presented to the hospital with shortness of breath that occurred suddenly. She also had some or thopnea but denies any worsening of her lower extremity edema. NT proBNP was elevated at 21,500. Echocardiogram from October of this year revealed an ejection fraction of 55-60% with mild aortic regurgitation, moderate aortic stenosis, mild to moderate mitral regurgitation, mild mitral stenosis, mild tricuspid regurgitation and mild pulmonary hypertension. She's been on Lasix 40 mg IV push daily. He was down to 6.5, she received one unit of packed red blood cells and hemoglobin this morning is 8.3. Overall she's feeling quite a bit better. Her breathing has improved. She denies any blood in the urine or stool. She's been followed in the past by Dr. Martell. 04/11/2022 Patient was seen and examined resting comfortably in bed. She is overall feeling fairly well her breathing is stable. Hemoglobin is stable at 8.8. Blood pressure has been elevated and she was started on amlodipine yesterday. Blood pressure remains elevated. Objective - Vital Signs Vital signs: Vital Signs Temp 98.3 F 04/11/22 07:19 Pulse 81 04/11/22 08:00 Resp 20 04/11/22 08:00 BP 179/78 04/11/22 08:00 Pulse Ox 94 L 04/11/22 10:16 FiO2 Intake & Output 04/10/22 04/11/22 04/11/22 18:59 06:59 18:59 Intake Total 620 Output Total 1101 1200 Balance -481 -1200 Intake: Intake, IV Titration 50 Amount cefTRIAXone 1 gm In 50 Sodium Chloride 0.9% 50 ml @ 100 mls/hr IVPB Q24HR [facility] Rx#:[id number] Oral 570 Output: Urine 700 800 Stool 401 400 Other: Voiding Method External Catheter External Catheter - Exam PHYSICAL EXAMINATION: HEENT: Head is atraumatic, normocephalic. Pupils equal, round. Neck is supple. There is no elevated jugular venous pressure. HEART EXAMINATION: Heart sounds regular, S1 and S2 normal. Systolic ejection murmur at the base. CHEST EXAMINATION: Lungs are diminished bilaterally. No chest wall tenderness is noted on palpation or with deep breathing. ABDOMEN: Soft, nontender. Bowel sounds are heard. No organomegaly noted. EXTREMITIES: 2+ peripheral pulses with trace lower extremity edema, bilateral Jaxson wraps in place. NEUROLOGIC patient is awake, alert and oriented x3. . - Labs CBC & Chem 7: 04/11/22 04:51 04/11/22 04:51 Labs: Abnormal Lab Results - Last 24 Hours (Table) 04/10/22 04/10/22 04/10/22 Range/Units 12:01 16:01 17:03 WBC (4.50-10.00) X 10*3/uL RBC (4.10-5.20) X 10*6/uL Hgb (12.0-15.0) g/dL Hct (37.2-46.3) % MCHC (32.0-37.0) g/dL RDW (11.5-14.5) % MPV (9.5-12.2) fL Sodium (137-145) mmol/L Chloride (98-107) mmol/L BUN (7-17) mg/dL Glucose (74-99) mg/dL POC Glucose (mg/dL) 407 H 410 H 438 H (70-110) mg/dL Calcium (8.4-10.2) mg/dL 04/10/22 04/11/22 04/11/22 Range/Units 20:10 04:51 04:51 WBC 11.79 H (4.50-10.00) X 10*3/uL RBC 3.09 L (4.10-5.20) X 10*6/uL Hgb 8.8 L (12.0-15.0) g/dL Hct 29.3 L (37.2-46.3) % MCHC 30.0 L (32.0-37.0) g/dL RDW 15.7 H (11.5-14.5) % MPV 9.3 L (9.5-12.2) fL Sodium 131 L (137-145) mmol/L Chloride 93 L (98-107) mmol/L BUN 26 H (7-17) mg/dL Glucose 408 H (74-99) mg/dL POC Glucose (mg/dL) 456 H (70-110) mg/dL Calcium 8.0 L (8.4-10.2) mg/dL 04/11/22 04/11/22 Range/Units 07:05 11:04 WBC (4.50-10.00) X 10*3/uL RBC (4.10-5.20) X 10*6/uL Hgb (12.0-15.0) g/dL Hct (37.2-46.3) % MCHC (32.0-37.0) g/dL RDW (11.5-14.5) % MPV (9.5-12.2) fL Sodium (137-145) mmol/L Chloride (98-107) mmol/L BUN (7-17) mg/dL Glucose (74-99) mg/dL POC Glucose (mg/dL) 443 H 333 H (70-110) mg/dL Calcium (8.4-10.2) mg/dL Microbiology - Last 24 Hours (Table) 04/07/22 19:29 Urine Culture - Final Urine,Voided Enterobacter cloacae Escherichia coli Assessment and Plan Assessment: 1 acute on chronic respiratory failure, likely main component of pneumonia however cannot exclude component of heart failure #2 acute on chronic diastolic heart failure exacerbated by underlying anemia #3 hypertension, uncontrolled #4 valvular heart disease #5 hyperlipidemia #6 COPD with home oxygen use #7 diabetes #8 anemia Plan: From cardiology's perspective we will switch to oral Lasix. We will add losartan for blood pressure. At this time will follow the patient on an as- needed basis. Please do not hesitate to contact us with questions. She will follow-up with Dr. Oh as an outpatient post discharge. SUPPLY CHAIN TECHNICIAN note has been reviewed, I agree with a documented findings and plan of care. Patient was seen and examined.
[2022-04-11] MEDS: LOSARTAN 50 MG TAB PO SCH (12:32)
[2022-04-11] MEDS: NYSTATIN 100,000UNIT/GM CREAM 30 GM TUBE TOPICAL SCH ×2 (12:34→21:09)
[2022-04-11] MEDS: predniSONE 10 MG TAB PO SCH (14:28)
[2022-04-11] MEDS: glipiZIDE 5 MG TAB PO SCH (14:29)
[2022-04-11 15:21] LABS: Glucose,Whole Blood 332 mg/dL (70-110)
[2022-04-11 17:08] LABS: Glucose,Whole Blood 253 mg/dL (70-110)
[2022-04-11 20:13] LABS: Glucose,Whole Blood 325 mg/dL (70-110)
[2022-04-11] MEDS: traZODone HCL 100 MG TAB PO PRN (21:08)
[2022-04-11] MEDS: ARIPiprazole 5 MG TAB PO SCH (21:08)
[2022-04-12] MEDS: HEPARIN SODIUM,PORCINE/PF 5,000 UNIT/0.5 ML SYRINGE SQ SCH ×3 (00:20→16:19)
[2022-04-12] MEDS: HYDROcodone/APAP 7.5-325MG 1 EACH TAB PO PRN ×3 (01:45→14:51)
--- NOTE | 2022-04-12 04:56 | P.PN ---
Subjective Progress Note Date: 04/11/22 Patient is a 71-year-old female with a known history of hypertension, hyperlipidemia, osteoarthritis, COPD and basal skin carcinoma of the eyelid, chronic back pain and degenerative disc disease, anxiety/depression and previous history of smoking presents to ER with complaints of worsening shortness of breath for the past 2 days. Patient was at home and alible gradually worsening shortness of breath. Patient does use oxygen daily nightly nasal cannula at home. Patient states that her heart rate is also increased to 115. Denies any complaints of chest pain patient was found to have increased leg swelling. No palpitations. No abdominal pain. No nausea vomiting or diaphoresis. No cough or sputum production. Denied any recent illnesses. No recent trauma. Chest x-ray showed increased interstitial density compared to old exam and that could be acute interstitial pneumonia or heart failure. EKG showed sinus rhythm low QRS voltage in precordial leads. Laboratory data showed WBC 16.3 hemoglobin 7.7 and platelets 374 Sodium 134 potassium 4.7 chloride 100 bicarb is 25 BUN 24 and creatinine 1.31 Blood sugar is 148 Magnesium 1.4 proBNP to 1500 and albumin 2.6 Urinalysis showed cloudy 1+ protein small blood large leukocyte esterase and elevated WBCs. COVID-19 PCR not detected. 04/09/2022 Patient is currently lying in bed. Still complains of shortness of breath. Does have bilateral diffuse wheezing present. Otherwise leg swelling is better. No nausea vomiting abdominal pain or diarrhea. No cough or sputum production. No chest pain. No headache or dizziness lightheadedness. Blood pressure is elevated. Patient is being current on IV Lasix. Cardiology is on board. Laboratory test showed sodium 134 potassium 4.4 chloride 99 bicarb is 29 BUN 23 and creatinine 1.12 and albumin 2.6. Patient's hemoglobin level is 6.5 today. Will be given 1 unit of PRBC Current medications reviewed. 04/10/2022 Patient is seen and evaluated in follow-up this morning with cardiology following. Patient received 1 unit of prbc yesterday and hemoglobin is 8.3 today. Patient is continued on daily IV lasix for chf acute exacerbation and cardiology following. Patient reports her breathing has improved some. Patient also with pneumonia and UTI with cultures showing ecoli and patient is continued on IV ceftriaxone and will continue. Blood sugars are uncontrolled and elevated, possibly induced by IV steroids and will increase the dose of long acting, continue sliding scale, and also pre-meal insulin. Patient is afebrile and denies chest pain or palpitations. No reports of nausea or vomiting and tolerating diet. BP elevated and will add norvasc. 04/11/2022 Patient is evaluated this morning and reports to feeling better. Patient is continued on IV ceftriaxone with uti showing ecoli with enterobacter and will continue. Cardiology evaluated the patient and recommend transitioning lasix to oral. Patient with elevated blood sugars and is on IV steroids and will t ransition to oral prednisone. Continue accuchecks and will add glyburide and resume metformin. Continue insulin regimen for now. Patient reports she does not want to do insulin on discharge. Patient is afebrile and denies chest pain or palpitations. No reports of nausea or vomiting and tolerating diet. Labs have been reviewed and WBC is trending down. Review of systems: Constitutional: No reports of fatigue, fever, or chills Cardiovascular: No reports of chest pain or palpitations Respiratory: No reports of worsening shortness of breath or cough GI: No reports of nausea, vomiting, or diarrhea : No reports of dysuria or retention Neurovascular: No reports of weakness or numbness All medications have been reviewed Active Medications Acetaminophen (Acetaminophen Tab 325 Mg Tab) 650 mg PO Q6HR PRN PRN Reason: Mild Pain or Fever > 100.5 Hydrocodone Bitart/Acetaminophen (Hydrocodone/Apap 7.5-325mg 1 Each Tab) 1 each PO Q4H PRN PRN Reason: Pain Last Admin: 04/12/22 01:45 Dose: 1 each Albuterol Sulfate (Albuterol Nebulized 2.5 Mg/3 Ml) 2.5 mg INHALATION RT-Q6H PRN PRN Reason: Shortness Of Breath Albuterol/Ipratropium (Ipratropium-Albuterol 3 Ml Neb) 3 ml INHALATION RT-QID [facility] Last Admin: 04/11/22 19:17 Dose: 3 ml Allopurinol (Allopurinol 100 Mg Tab) 100 mg PO DAILY [facility] Last Admin: 04/11/22 08:38 Dose: 100 mg Amlodipine Besylate (Amlodipine 10 Mg Tab) 10 mg PO DAILY [facility] Last Admin: 04/11/22 08:39 Dose: 10 mg Aripiprazole (Aripiprazole 5 Mg Tab) 5 mg PO HS [facility] Last Admin: 04/11/22 21:08 Dose: 5 mg Atorvastatin Calcium (Atorvastatin 40 Mg Tab) 40 mg PO DAILY [facility] Last Admin: 04/11/22 08:39 Dose: 40 mg Budesonide/Formoterol Fumarate (Symbicort 160-4.5 Mcg Inhaler) 2 puff INHALATION RT-BID [facility] Last Admin: 04/11/22 19:17 Dose: 2 puff Cholecalciferol (Cholecalciferol 25 Mcg (1000 Iu) Tablet) 25 mcg PO DAILY [facility] Last Admin: 04/11/22 08:39 Dose: 25 mcg Citalopram Hydrobromide (Citalopram Hydrobromide 20 Mg Tab) 40 mg PO DAILY [facility] Last Admin: 04/11/22 08:38 Dose: 40 mg Dextrose/Water (Dextrose 50% Syringe 50 Ml) 25 ml IVP PER PROTOCOL PRN; Protocol PRN Reason: Hypoglycemia Dextrose/Water (Dextrose 50% Syringe 50 Ml) 50 ml IVP PER PROTOCOL PRN; Protocol PRN Reason: Hypoglycemia Ferrous Sulfate (Ferrous Sulfate 325 Mg Tab) 325 mg PO Q48H [facility] Last Admin: 04/10/22 08:30 Dose: 325 mg Furosemide (Furosemide 40 Mg Tab) 40 mg PO DAILY [facility] Glipizide (Glipizide 5 Mg Tab) 5 mg PO AC-BRKFST [facility] Last Admin: 04/11/22 14:29 Dose: 5 mg Heparin Sodium (Porcine) (Heparin Sodium,Porcine/Pf 5,000 Unit/0.5 Ml Syringe) 5,000 unit SQ Q8HR [facility] Last Admin: 04/12/22 00:20 Dose: 5,000 unit Ceftriaxone Sodium 1 gm/ (Sodium Chloride) 50 mls @ 100 mls/hr IVPB Q24HR [facility]; Protocol Last Admin: 04/11/22 08:40 Dose: 100 mls/hr Insulin Aspart (Insulin Aspart (Novolog) 100 Unit/Ml Vial) 0 unit SQ ACHS [facility]; Protocol Last Admin: 04/11/22 20:48 Dose: 16 unit Insulin Detemir (Insulin Detemir (Levemir) 100 Unit/Ml Syr) 20 unit SQ BID@0700,2100 [facility] Last Admin: 04/11/22 20:49 Dose: 20 unit Levothyroxine Sodium (Levothyroxine 100 Mcg Tab) 200 mcg PO DAILY@0630 [facility] Last Admin: 04/11/22 06:06 Dose: 200 mcg Losartan Potassium (Losartan 50 Mg Tab) 50 mg PO DAILY [facility] Last Admin: 04/11/22 12:32 Dose: 50 mg Magnesium Oxide (Magnesium Oxide 400 Mg Tab) 400 mg PO DAILY [facility] Last Admin: 04/11/22 08:38 Dose: 400 mg Metformin HCl (Metformin 500 Mg Tab) 1,000 mg PO BID-W/MEALS [facility] Metoprolol Succinate (Metoprolol Succinate (Er) 25 Mg Tab.Er.24h) 25 mg PO DAILY [facility] Last Admin: 04/11/22 08:42 Dose: 25 mg Miscellaneous Information (Magnesium Replacement Protocol 1 Each Misc) 1 each MISCELLANE DAILY PRN; Protocol PRN Reason: Per Protocol Naloxone HCl (Naloxone 0.4 Mg/Ml 1 Ml Vial) 0.2 mg IV Q2M PRN PRN Reason: Opioid Reversal Non-Formulary Medication (Methenamine Hippurate [Methenamine Hippurate]) 1 gm PO BID [facility] Last Admin: 04/11/22 21:59 Dose: Not Given Nystatin (Nystatin 100,000unit/Gm Cream 30 Gm Tube) 1 applic TOPICAL BID [facility]; Protocol Last Admin: 04/11/22 21:09 Dose: 1 applic Ondansetron HCl (Ondansetron 4 Mg/2 Ml Vial) 4 mg IVP Q8HR PRN PRN Reason: Nausea And Vomiting Prednisone (Prednisone 10 Mg Tab) 30 mg PO DAILY [facility] Last Admin: 04/11/22 14:28 Dose: 30 mg Prochlorperazine Maleate (Prochlorperazine 10 Mg Tab) 10 mg PO TID PRN PRN Reason: Nausea Last Admin: 04/09/22 14:52 Dose: 10 mg Trazodone HCl (Trazodone Hcl 100 Mg Tab) 100 mg PO HS PRN PRN Reason: Sedation Last Admin: 04/11/22 21:08 Dose: 100 mg Physical exam: Patient is lying in the bed comfortably, awake alert and oriented.. HEENT: Normocephalic. Neck is supple. Pupils reactive. Nostrils clear. Oral cavity is moist. Neck reveals no JVD, carotid bruits, or thyromegaly. CHEST EXAMINATION: Trachea is central. Symmetrical expansion. Bilateral wheezing and diminished sounds bilaterally with some rhonchi noted CARDIAC: S1, S2 muffled ABDOMEN: Soft. Bowel sounds present. Non-tender. No organomegaly. No abdominal bruits. Extremities: Bilateral trace edema. No clubbing or cyanosis Neurologically awake, alert, oriented x3 with well-coordinated movements. No focal deficits noted Skin: No rash or skin lesions. Psychiatric: Cooperative. Non-suicidal, Musculoskeletal: No joint swelling or deformity. Normal range of motion. Assessment: Shortness of breath secondary to pneumonia and CHF. Acute COPD exacerbation Acute on chronic hypoxic respiratory failure secondary to above Acute interstitial pneumonia Acute UTI, present on admission with ecoli and enterobacter Acute on chronic CHF with diastolic dysfunction Acute kidney injury likely prerenal COPD on 3 L oxygen via nasal cannula. Morbid obesity with BMI 41.9 Hypertension Hypokalemia Diabetes type 2 llo-rwxkzah-dpwnayrdz, uncontrolled with hyperglycemia Osteoarthritis Hypothyroidism History of cellulitis of legs DVT prophylaxis with heparin subcu Plan: Patient will be continued on antibiotics in the form of ceftriaxone. Transition IV Lasix 40 mg daily to oral in the am Urine cultures finalized showing ecoli and enterobacter and will continue ceftriaxone Continue with duo nebs and Symbicort. IV steroids being transitioned to oral prednisone Continue with insulin sliding scale, long acting, pre-meal and monitor blood sugars closely. Continue accuchecks achs. Continue to be elevated and will resume metformin and add glyburide. Patient reports she does not want to use in sulin on discharge. Cardiology is on board. recommending outpatient follow up and continue current cardiac medications Due to multiple complex medical issues, prognosis is guarded Possible discharge in 24 hours The impression and plan of care has been dictated by Marilin Mcneill, Nurse Practitioner as directed. Dr. Miguel MD I have performed a history and examination and MDM of this patient, discussed the same with the dictator, and agree with the dictator's assessment and plan a s written ,documented as a scribe. Based on total visit time, I have performed more than 50% of the visit. Objective - Vital Signs Vital signs: Vital Signs Temp 97.7 F 04/11/22 19:29 Pulse 84 04/11/22 19:30 Resp 20 04/11/22 19:29 BP 171/72 04/11/22 19:29 Pulse Ox 94 L 04/11/22 19:29 FiO2 Intake & Output 08/23/22 08/23/22 08/24/22 06:59 18:59 06:59 Output Total 1800 Balance -1800 Output: Urine 1400 Stool 400 Other: Voiding Method External Catheter Diaper Diaper Incontinent Incontinent Indwelling Catheter External Catheter - Labs CBC & Chem 7: 04/11/22 04:51 04/11/22 04:51 Labs: Abnormal Lab Results - Last 24 Hours (Table) 04/11/22 04/11/22 04/11/22 Range/Units 04:51 04:51 07:05 WBC 11.79 H (4.50-10.00) X 10*3/uL RBC 3.09 L (4.10-5.20) X 10*6/uL Hgb 8.8 L (12.0-15.0) g/dL Hct 29.3 L (37.2-46.3) % MCHC 30.0 L (32.0-37.0) g/dL RDW 15.7 H (11.5-14.5) % MPV 9.3 L (9.5-12.2) fL Sodium 131 L (137-145) mmol/L Chloride 93 L (98-107) mmol/L BUN 26 H (7-17) mg/dL Glucose 408 H (74-99) mg/dL POC Glucose (mg/dL) 443 H (70-110) mg/dL Calcium 8.0 L (8.4-10.2) mg/dL 04/11/22 04/11/22 04/11/22 Range/Units 11:04 15:19 17:06 WBC (4.50-10.00) X 10*3/uL RBC (4.10-5.20) X 10*6/uL Hgb (12.0-15.0) g/dL Hct (37.2-46.3) % MCHC (32.0-37.0) g/dL RDW (11.5-14.5) % MPV (9.5-12.2) fL Sodium (137-145) mmol/L Chloride (98-107) mmol/L BUN (7-17) mg/dL Glucose (74-99) mg/dL POC Glucose (mg/dL) 333 H 332 H 253 H (70-110) mg/dL Calcium (8.4-10.2) mg/dL 08/23/22 Range/Units 20:11 WBC (4.50-10.00) X 10*3/uL RBC (4.10-5.20) X 10*6/uL Hgb (12.0-15.0) g/dL Hct (37.2-46.3) % MCHC (32.0-37.0) g/dL RDW (11.5-14.5) % MPV (9.5-12.2) fL Sodium (137-145) mmol/L Chloride (98-107) mmol/L BUN (7-17) mg/dL Glucose (74-99) mg/dL POC Glucose (mg/dL) 325 H (70-110) mg/dL Calcium (8.4-10.2) mg/dL
[2022-04-12] MEDS: LEVOTHYROXINE 100 MCG TAB PO SCH (06:05)
[2022-04-12 07:16] LABS: Glucose,Whole Blood 116 mg/dL (70-110)
[2022-04-12] MEDS ORDERED: metFORMIN 500 MG TAB PO SCH (07:30)
[2022-04-12] MEDS: INSULIN ASPART (NovoLOG) 100 UNIT/ML VIAL SQ SCH ×2 (07:37→12:50)
[2022-04-12] MEDS: SYMBICORT 160-4.5 MCG INHALER INHALATION SCH (07:51)
[2022-04-12] MEDS: IPRATROPIUM-ALBUTEROL 3 ML NEB INHALATION SCH ×3 (07:51→15:58)
[2022-04-12] MEDS: INSULIN DETEMIR (LEVEMIR) 100 UNIT/ML SYR SQ SCH (08:53)
[2022-04-12] MEDS: predniSONE 10 MG TAB PO SCH (08:54)
[2022-04-12] MEDS: METOPROLOL SUCCINATE (ER) 25 MG TAB.ER.24H PO SCH (08:54)
[2022-04-12] MEDS: ATORVASTATIN 40 MG TAB PO SCH (08:55)
[2022-04-12] MEDS: MAGNESIUM OXIDE 400 MG TAB PO SCH (08:55)
[2022-04-12] MEDS: amLODIPine 10 MG TAB PO SCH (08:55)
[2022-04-12] MEDS: allopurinoL 100 MG TAB PO SCH (08:55)
[2022-04-12] MEDS: CHOLECALCIFEROL 25 MCG (1000 IU) TABLET PO SCH (08:55)
[2022-04-12] MEDS: LOSARTAN 50 MG TAB PO SCH (08:55)
[2022-04-12] MEDS: FERROUS SULFATE 325 MG TAB PO SCH (08:55)
[2022-04-12] MEDS: CITALOPRAM HYDROBROMIDE 20 MG TAB PO SCH (08:55)
[2022-04-12] MEDS: glipiZIDE 5 MG TAB PO SCH (08:56)
[2022-04-12] MEDS: NON FORMULARY DRUG (Methenamine Hippurate [Methenamine Hippurate] 1 GM Tablet) PO SCH (08:57)
[2022-04-12] MEDS: NYSTATIN 100,000UNIT/GM CREAM 30 GM TUBE TOPICAL SCH (08:58)
[2022-04-12] MEDS ORDERED: FUROSEMIDE 40 MG TAB PO SCH (09:00)
--- NOTE | 2022-04-12 10:13 | P.CONS ---
History of Present Illness - Reason for Consult Consult date: 04/12/22 wound care - History of Present Illness This is a 71-year-old patient known to the wound care center with a nonhealing ulceration to the left lower extremity. Patient has been utilizing absorptive silver to the site. However she is noncompliant with elevating her legs and staying off of them. She also does not routinely come to her wound care appointments. Original cause of wound was Not Known. The date acquired was: 11/22/2021. The wound has been in treatment 12 weeks. The wound is currently classified as a Grade 1 wound with etiology of Diabetic Wound/Ulcer of the Lower Extremity and is located on the Left Lower Leg. The wound measures 4.6cm length x 3cm width x 0.1cm depth; 10.838cm^2 area and 1.084cm^3 volume. There is no tunneling or undermining noted. There is a medium amount of serosanguineous drainage noted. The wound margin is indistinct and nonvisible. There is large (67-100%) red granulation within the wound bed. There is a small (1-33%) amount of necrotic tissue within the wound bed including Adherent Slough. The periwound skin appearance exhibited: Scarring, Maceration, Erythema. The periwound skin appearance did not exhibit: Callus, Crepitus, Excoriation, Induration, Rash, Dry/Scaly, Atrophie Rosina, Cyanosis, Ecchymosis, Hemosiderin Staining, Mottled, Pallor, Rubor. The surrounding wound skin color is noted with erythema. Periwound temperature was noted as No Abnormality. The periwound has tenderness on palpation. Review Of Systems: Constitutional: No fever, no chills, no night sweats. No weight change. No weakness, fatigue or lethargy. No daytime sleepiness. Integumentary:reports wounds, no lesions. No rash or pruritus. No unusual bruising. No change in hair or nails. Physical exam: General Appearance: Alert, cooperative, no distress, appears stated age. Skin: See HPI all other Skin color, texture, tugor normal, no rashes or lesions. Neurologic: Alert oriented x3 Assessment: 1. Chronic venous hypertension with ulcer and inflammation of bilateral lower extremities benign 2. Nonpressure chronic ulcer of left calf Limited to skin breakdown 3. Nonpressure ulcer of right calf Limited to skin breakdown 3. Type 2 diabetes with skin ulcer Plan: 1. Left lower extremity: Apply absorptive silver, saline was gauze, dry gauze, rolled gauze and secure with paper tape. Wrap with Jaxson wrap changed Sunday. Right lower extremity apply zinc barrier cream and wrap with Jaxson wrap changing Sunday. Patient next wound care appoint ment will be April 18 at 2:45. Thank you for the consultation any questions please contact the wound care center DNP note has been reviewed and discussed with Dr. Portillo and the impression and plan of care has been directed as dictated. 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 glaucoma, chronic back pain and degenerative disk disease in the lumbar spine , nephrolithiasis, history of cellulitis in the legs and history of falls. The patient is also a recently quit smoker. 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 RT KNEE ARTHROSCOPY. UNDERWENT PERCUTANEOUS NEPHROSTOLITHOTOMY, colostomy Past Anesthesia/Blood Transfusion Reactions: No Reported Reaction Smoking Status: Current every day smoker - Past Family History Mother Family Medical History: COPD Additional Family Medical History / Comment(s): emphysema, heart valve problems, in her sleep. Brother(s) Family Medical History: Cancer Additional Family Medical History / Comment(s): from oral cancer Father Brother(s) Family Medical History: Cancer Additional Family Medical History / Comment(s): heart disease Medications and Allergies Home Medications Medication Instructions Recorded Confirmed Type ARIPiprazole [Abilify] 5 mg PO HS 02/07/18 04/07/22 History metFORMIN HCL [Glucophage] 1,000 mg PO BID-W/MEALS 02/07/18 04/07/22 History Atorvastatin [Lipitor] 40 mg PO DAILY #30 tab 09/10/18 04/07/22 Rx Levothyroxine Sodium [Synthroid] 200 mcg PO DAILY 09/03/19 04/07/22 History HYDROcodone/APAP 7.5-325MG [[place] 1 tab PO Q6H PRN #12 tab 03/27/20 04/07/22 Rx 7.5-325] traZODone HCL 100 mg PO HS PRN 05/15/20 04/07/22 History Albuterol Nebulized [Ventolin 2.5 mg INHALATION RT-Q6H PRN 10/19/21 04/07/22 History Nebulized] Albuterol Sulfate [Albuterol 2 puff PO RT-Q6H PRN 10/19/21 04/07/22 History Sulfate Hfa] Cholecalciferol [Vitamin D3 (25 25 mcg PO DAILY 10/19/21 04/07/22 History Mcg = 1000 Iu)] Ferrous Sulfate [Iron (65 MG 325 mg PO Q48H 10/19/21 04/07/22 History Elemental)] Metoprolol Succinate [Toprol XL] 25 mg PO DAILY 11/07/21 04/07/22 History Citalopram Hydrobromide [CeleXA] 40 mg PO DAILY 01/30/22 04/07/22 History Budesonide-Formot 160-4.5 Mcg 2 puff INHALATION RT-BID 02/13/22 04/07/22 History [Symbicort 160-4.5 Mcg Inhaler] Ipratropium-Albuterol Nebulize 3 ml INHALATION RT-QID 02/13/22 04/07/22 History [Duoneb 0.5 mg-3 mg/3 ml Soln] allopurinoL [Zyloprim] 100 mg PO DAILY 02/13/22 04/07/22 History Furosemide [Lasix] 20 mg PO DAILY #30 tab 02/16/22 04/07/22 Rx Magnesium Oxide [Mag-Ox] 400 mg PO DAILY #30 tablet 02/16/22 04/07/22 Rx Fluconazole 200 mg PO DAILY 04/07/22 04/07/22 History Methenamine Hippurate 1 gm PO BID 04/07/22 04/07/22 History Minocycline HCl [Minocin] 100 mg PO BID 04/07/22 04/07/22 History Nystatin 100,000Unit/gm Cream 1 applic TOPICAL BID 04/07/22 04/07/22 History [Mycostatin Cream] Prochlorperazine Maleate 10 mg PO TID PRN 04/07/22 04/07/22 History Allergies Allergy/AdvReac Type Severity Reaction Status Date / Time adhesive Allergy Rash/Hives Verified 04/07/22 23:29 ciprofloxacin [From Cipro] Allergy Rash/Hives Verified 04/07/22 23:29 ciprofloxacin HCl Allergy Rash/Hives Verified 04/07/22 23:29 [From Cipro] latex Allergy Rash/Hives Verified 04/07/22 23:29 levofloxacin [From Levaquin] Allergy Rash/Hives Verified 04/07/22 23:29 nitrofurantoin Allergy Rash/Hives Verified 04/07/22 23:29 [From Macrobid] nitrofurantoin Allergy Rash/Hives Verified 04/07/22 23:29 macrocrystalline [From Macrobid] Penicillins Allergy Rash/Hives Verified 04/07/22 23:29 propoxyphene HCl Allergy Rash/Hives Verified 04/07/22 23:29 [From Darvon] propoxyphene napsylate Allergy Unknown Verified 04/07/22 23:29 [From Darvocet-N] sulfamethoxazole Allergy PIPPA Verified 04/07/22 23:29 [From Bactrim] trimethoprim [From Bactrim] Allergy PIPPA Verified 04/07/22 23:29 Physical Exam Vitals: Vital Signs Temp Pulse Pulse Resp BP Pulse Ox 04/12/22 08:02 70 04/12/22 07:54 97 04/12/22 07:51 67 04/12/22 05:00 98.7 F 66 16 171/73 97 04/11/22 19:30 84 04/11/22 19:29 97.7 F 94 20 171/72 94 L 04/11/22 19:18 81 04/11/22 16:05 74 18 04/11/22 15:54 72 04/11/22 11:39 72 04/11/22 11:30 97.1 F L 72 17 159/65 99 04/11/22 11:29 70 04/11/22 10:16 94 L Intake and Output 04/11/22 04/12/22 04/12/22 22:59 06:59 14:59 Output Total 600 900 400 Balance -600 -900 -400 Output: Urine 600 900 Stool 400 Other: Voiding Method Diaper Diaper Incontinent Incontinent External Catheter External Catheter Weight 92.5 kg Results CBC & Chem 7: 04/11/22 04:51 04/11/22 04:51 Labs: Abnormal Lab Results - Last 24 Hours (Table) 04/11/22 04/11/22 04/11/22 Range/Units 04:51 11:04 15:19 WBC 11.79 H (4.50-10.00) X 10*3/uL RBC 3.09 L (4.10-5.20) X 10*6/uL Hgb 8.8 L (12.0-15.0) g/dL Hct 29.3 L (37.2-46.3) % MCHC 30.0 L (32.0-37.0) g/dL RDW 15.7 H (11.5-14.5) % MPV 9.3 L (9.5-12.2) fL POC Glucose (mg/dL) 333 H 332 H (70-110) mg/dL 04/11/22 04/11/22 04/12/22 Range/Units 17:06 20:11 07:13 WBC (4.50-10.00) X 10*3/uL RBC (4.10-5.20) X 10*6/uL Hgb (12.0-15.0) g/dL Hct (37.2-46.3) % MCHC (32.0-37.0) g/dL RDW (11.5-14.5) % MPV (9.5-12.2) fL POC Glucose (mg/dL) 253 H 325 H 116 H (70-110) mg/dL Assessment and Plan (1) Chronic venous hypertension (idiopathic) with ulcer and inflammation of bilateral lower extremity Current Visit: Yes Status: Acute Code(s): I87.333 - CHRONIC VENOUS HTN W ULCER AND INFLAM OF BILATERAL LOW EXTRM; L97.919 - NON-PRS CHRONIC ULC UNSP PRT OF R LOW LEG W UNSP SEVERITY; L97.929 - NON-PRS CHRONIC ULC UNSP PRT OF L LOW LEG W UNSP SEVERITY SNOMED Code(s): 445492019017300 (2) Non-pressure chronic ulcer of right calf limited to breakdown of skin Current Visit: Yes Status: Acute Code(s): L97.211 - NON-PRS CHRONIC ULCER OF RIGHT CALF LIMITED TO BRKDWN SKIN SNOMED Code(s): 37586520730519512 (3) Diabetic ulcer of left lower leg associated with diabetes mellitus due to underlying condition, with fat layer exposed Current Visit: No Status: Acute Code(s): E08.622 - DIABETES DUE TO UNDERLYING CONDITION W OTH SKIN ULCER; L97.922 - NON-PRS CHR ULC UNSP PRT OF L LOW LEG W FAT LAYER EXPOSED SNOMED Code(s): 321219403 (4) Non-pressure chronic ulcer of left calf limited to breakdown of skin Current Visit: No Status: Acute Code(s): L97.221 - NON-PRS CHRONIC ULCER OF LEFT CALF LIMITED TO BRKDWN SKIN SNOMED Code(s): 12603488120650370 (5) Type 2 diabetes mellitus with other skin ulcer Current Visit: No Status: Acute Code(s): E11.622 - TYPE 2 DIABETES MELLITUS WITH OTHER SKIN ULCER; L98.499 - NON-PRESSURE CHRONIC ULCER OF SKIN OF SITES W UNSP SEVERITY SNOMED Code(s): 140140244
[2022-04-12 11:42] LABS: Glucose,Whole Blood 124 mg/dL (70-110)
[2022-04-12 12:13] VITALS: BP 169/78; RESP 18; TEMP 98.1
[2022-04-12 12:30] VITALS: PULSE 70
--- NOTE | 2022-04-14 15:34 | P.DS ---
Providers Date of admission: 04/07/22 23:51 Expected date of discharge: 04/12/22 Attending physician: Margarita Gonzalez Consults: 04/07/22 22:41 Consult Physician Urgent Consulting Provider: [facility] Consult Reason/Comments: CHF Do you want consulting provider notified?: Yes Primary care physician: Levi Austin Hospital Course: Final diagnosis Shortness of breath secondary to pneumonia and CHF. Acute COPD exacerbation Acute on chronic hypoxic respiratory failure secondary to above Acute interstitial pneumonia Acute UTI, present on admission with ecoli and enterobacter Acute on chronic CHF with diastolic dysfunction Acute kidney injury likely prerenal COPD on 3 L oxygen via nasal cannula. Morbid obesity with BMI 41.9 Hypertension Hypokalemia Diabetes type 2 ahf-fopjyhv-vbypuggkd, uncontrolled with hyperglycemia Osteoarthritis Hypothyroidism History of cellulitis of legs DVT prophylaxis Discharge disposition Patient is being discharged in a stable condition with guarded prognosis to home with [facility] . Patient will follow-up with Dr. Austin in the outpatient setting upon discharge. Patient is to also follow-up with cardiologyy in the outpatient setting. Patient is to continue on a short course of oral Ceftin twice daily for the next 5 days along with a prednisone taper and close outpatient follow-up with primary care provider this week. Recommend closely monitoring blood sugars and patient has been started on glipizide and will continue metformin on discharge. Patient will also need outpatient follow- up at the wound care center for chronic bilateral lower extremity cellulitis. Patient is to continue with local wound care as mentioned below. Patient also provided a prescription for follow-up labs in the outpatient setting. Total time taken is greater than 35 minutes. Hospital course This is a 71-year-old female who was recently admitted with worsening shortness of breath requiring increased oxygen and was being closely monitored. Patient also with a urinary tract infection and pneumonia and was being followed closely by cardiology. Patient's urine cultures finalize with E. coli and Enterobacter with sensitivities and we'll transition to oral Ceftin twice daily for the next 5 days to complete the course. Patient will also continue with Lasix and a prednisone taper and close outpatient follow-up with primary care provider and cardiology. Recommend repeat labs in the next few days to monitor kidney functions. Patient was having some elevated blood sugars requiring insulin most likely secondary to steroid use and will continue metformin and added glyburide to the regimen and recommend close outpatient follow-up with primary care provider. Patient was adamant she was not going home on insulins. Blood sugars improved and patient encouraged to continue monitoring Accu-Cheks before meals and at bedtime and keeping a diary of readings for primary care follow-up. Patient reports to feeling much better and anxious and adamant about going home today. Currently no reports of chest pain, shortness of breath, or palpitations. Patient is afebrile. No reports of nausea or vomiting and patien t is tolerating diet. Patient will be discharged home today. Guarded prognosis As patient is high risk for readmission. Physical exam: Gen: This is a 71-year-old female awake, alert and oriented 3, well-developed, well-nourished. Obese. HEENT: Head is atraumatic, normocephalic. Pupils equal, round. Sclerae is anicteric. NECK: Supple. No JVD. No lymphadenopathy. No thyromegaly. LUNGS: Diminished breath sounds bilaterally with some minimal scattered rhonchi. No intercostal retractions. HEART: S1, S2 are muffled ABDOMEN: Soft. Obese. Bowel sounds are present. No masses. No tenderness. EXTREMITIES: No pedal edema. No calf tenderness. NEUROLOGICAL: Patient is awake, alert and oriented x3. Cranial nerves 2 through 12 are grossly intact. Please refer to medication reconciliation sheet for a list of medications. The impression and plan of care has been dictated by Marilin Mcneill, Nurse Practitioner as directed. Dr. Miguel MD I have performed a history and examination and MDM of this patient, discussed the same with the dictator, and agree with the dictator's assessment and plan as written ,documented as a scribe. Based on total visit time, I have performed more than 50% of the visit. Patient Condition at Discharge: Fair Plan - Discharge Summary Discharge Rx Participant: Yes New Discharge Prescriptions: New Losartan [Cozaar] 50 mg PO DAILY 30 Days #30 tab amLODIPine [Norvasc] 10 mg PO DAILY 30 Days #30 tab Acetaminophen Tab [Tylenol] 650 mg PO Q6HR PRN tab PRN Reason: Mild Pain Or Fever > 100.5 cefUROXime axetiL [Ceftin] 500 mg PO BID 5 Days #10 tab glipiZIDE [Glucotrol] 5 mg PO AC-BRKFST 30 Days #30 tab Furosemide [Lasix] 40 mg PO DAILY 30 Days #30 tab predniSONE 10 mg PO DIRECTED #18 tab Continue metFORMIN HCL [Glucophage] 1,000 mg PO BID-W/MEALS ARIPiprazole [Abilify] 5 mg PO HS Atorvastatin [Lipitor] 40 mg PO DAILY #30 tab Levothyroxine Sodium [Synthroid] 200 mcg PO DAILY HYDROcodone/APAP 7.5-325MG [Anna 7.5-325] 1 tab PO Q6H PRN #12 tab PRN Reason: Pain traZODone HCL 100 mg PO HS PRN PRN Reason: Sedation Ferrous Sulfate [Iron (65 MG Elemental)] 325 mg PO Q48H Cholecalciferol [Vitamin D3 (25 Mcg = 1000 Iu)] 25 mcg PO DAILY Albuterol Sulfate [Albuterol Sulfate Hfa] 2 puff PO RT-Q6H PRN PRN Reason: Shortness Of Breath Albuterol Nebulized [Ventolin Nebulized] 2.5 mg INHALATION RT-Q6H PRN PRN Reason: Shortness Of Breath Citalopram Hydrobromide [CeleXA] 40 mg PO DAILY Methenamine Hippurate 1 gm PO BID Fluconazole 200 mg PO DAILY Prochlorperazine Maleate 10 mg PO TID PRN PRN Reason: Nausea Metoprolol Succinate [Toprol XL] 25 mg PO DAILY Budesonide-Formot 160-4.5 Mcg [Symbicort 160-4.5 Mcg Inhaler] 2 puff INHALATION RT-BID Ipratropium-Albuterol Nebulize [Duoneb 0.5 mg-3 mg/3 ml Soln] 3 ml INHALATION RT-QID allopurinoL [Zyloprim] 100 mg PO DAILY Magnesium Oxide [Mag-Ox] 400 mg PO DAILY #30 tablet Nystatin 100,000Unit/gm Cream [Mycostatin Cream] 1 applic TOPICAL BID Minocycline HCl [Minocin] 100 mg PO BID Discontinued Furosemide [Lasix] 20 mg PO DAILY #30 tab Discharge Medication List ARIPiprazole [Abilify] 5 mg PO HS 02/07/18 [History] metFORMIN HCL [Glucophage] 1,000 mg PO BID-W/MEALS 02/07/18 [History] Atorvastatin [Lipitor] 40 mg PO DAILY #30 tab 09/10/18 [Rx] Levothyroxine Sodium [Synthroid] 200 mcg PO DAILY 09/03/19 [History] HYDROcodone/APAP 7.5-325MG [Anna 7.5-325] 1 tab PO Q6H PRN #12 tab 03/27/20 [Rx] traZODone HCL 100 mg PO HS PRN 05/15/20 [History] Albuterol Nebulized [Ventolin Nebulized] 2.5 mg INHALATION RT-Q6H PRN 10/19/21 [History] Albuterol Sulfate [Albuterol Sulfate Hfa] 2 puff PO RT-Q6H PRN 10/19/21 [History] Cholecalciferol [Vitamin D3 (25 Mcg = 1000 Iu)] 25 mcg PO DAILY 10/19/21 [History] Ferrous Sulfate [Iron (65 MG Elemental)] 325 mg PO Q48H 10/19/21 [History] Metoprolol Succinate [Toprol XL] 25 mg PO DAILY 11/07/21 [History] Citalopram Hydrobromide [CeleXA] 40 mg PO DAILY 01/30/22 [History] Budesonide-Formot 160-4.5 Mcg [Symbicort 160-4.5 Mcg Inhaler] 2 puff INHALATION RT-BID 02/13/22 [History] Ipratropium-Albuterol Nebulize [Duoneb 0.5 mg-3 mg/3 ml Soln] 3 ml INHALATION RT-QID 02/13/22 [History] allopurinoL [Zyloprim] 100 mg PO DAILY 02/13/22 [History] Magnesium Oxide [Mag-Ox] 400 mg PO DAILY #30 tablet 02/16/22 [Rx] Fluconazole 200 mg PO DAILY 04/07/22 [History] Methenamine Hippurate 1 gm PO BID 04/07/22 [History] Minocycline HCl [Minocin] 100 mg PO BID 04/07/22 [History] Nystatin 100,000Unit/gm Cream [Mycostatin Cream] 1 applic TOPICAL BID 04/07/22 [History] Prochlorperazine Maleate 10 mg PO TID PRN 04/07/22 [History] Acetaminophen Tab [Tylenol] 650 mg PO Q6HR PRN tab 04/12/22 [Rx] Furosemide [Lasix] 40 mg PO DAILY 30 Days #30 tab 04/12/22 [Rx] Losartan [Cozaar] 50 mg PO DAILY 30 Days #30 tab 04/12/22 [Rx] amLODIPine [Norvasc] 10 mg PO DAILY 30 Days #30 tab 04/12/22 [Rx] cefUROXime axetiL [Ceftin] 500 mg PO BID 5 Days #10 tab 04/12/22 [Rx] glipiZIDE [Glucotrol] 5 mg PO AC-BRKFST 30 Days #30 tab 04/12/22 [Rx] predniSONE 10 mg PO DIRECTED #18 tab 04/12/22 [Rx] Follow up Appointment(s)/Referral(s): Gael Oh MD [STAFF PHYSICIAN] - 04/14/22 11:45 am Care,Real Garcia [NON-STAFF] - 1 Week Levi Austin MD [Primary Care Provider] - 1-2 days (notified office of patient being discharged today) Ambulatory/Diagnostic Orders: Complete Blood Count w/diff [LAB.AMB] Time Frame: 3 Days, Location: None Selected Patient Instructions/Handouts: Cefuroxime (By mouth), Furosemide (By mouth), Glipizide (By mouth), Prednisone (By mouth), Amlodipine (By mouth), Losartan (By mouth), Heart Failure (DC), COPD (Chronic Obstructive Pulmonary Disease) (DC) Activity/Diet/Wound Care/Special Instructions: Activity Limited until follow-up Follow-up with cardiology outpatient Follow-up primary care provider and discharge Continue taking medications as prescribed follow up with wound care center as discussed on your April 18 appointment at 2:45 PM Left lower extremity: Apply absorptive silver, saline was gauze, dry gauze, rolled gauze and secure with paper tape. Wrap with Jaxson wrap changed Sunday. Right lower extremity apply zinc barrier cream and wrap with Jaxson wrap changing Sunday. Patient next wound care appointment will be April 18 at 2:45. Continue monitoring blood sugars and keep a diary for primary care follow-up Recommend repeat labs a CBC and BMP in the next 2-3 days Discharge Disposition: HOME WITH HOME HEALTH SERVICES
--- NOTE | 2022-04-14 16:35 | CDI ---
Documentation Clarification Form Date: 04/14/2022 04:19:04 PM From: Shanon Winchester Phone: Admit Date: 04/07/2022 11:51:00 PM Patient Name: Ban Estrada Visit Number: [id number] Discharge Date: 04/12/2022 04:30:00 PM ATTENTION: The Clinical Documentation Specialists (CDI) and [facility] Coding Staff appreciate your assistance in clarifying documentation. Please respond to the clarification below the line at the bottom and electronically sign. The CDI & [facility] Coding staff will review the response and follow-up if needed. Please note: Queries are made part of the Legal Health Record. If you have any questions, please contact the author of this message via ITS. Dr. Margarita Gonzalez Malnutrition (PCM) is documented PER Consult 04/08/22. Additional clarification regarding the severity of malnutrition is requested. History/Risk Factors: 71yo F, Acute on chronic respiratory failure w PNA, ACDHF, HTN, HLD, COPDwith home O2, Valvular heart disease, DMII w ulcers & uncontrolled, LE edema, , chronic anemia Clinical Indicators: Current BMI: 41.2 Weight: 68.039 kg 94 kg Treatment: No reports of nausea or vomiting and toleratingdiet Please clarify the type of malnutrition, if known: [ x ] Mild Protein-Calorie Malnutrition [ ] Moderate Protein-Calorie Malnutrition [ ] Severe Protein-Calorie Malnutrition [ ] Malnutrition, unspecified [ ] Malnutrition following GI surgery [ ] Other condition, please specify [ ] Unable to Determine (Template Last Revised: October 2020) MTDD
== END 2022-04-12 16:30 | disposition home health service (06) | DRG 196 ==
LOC: EC 18:11 → 4SSUR 23:51 → 5NMEDONC 04-08 00:30
PROVIDERS: ADMIT Internal Medicine; ATTEND Internal Medicine
DX: J84.9 Interstitial pulmonary disease, unspecified (principal); I50.33 Acute on chronic diastolic (congestive) heart failure; J96.21 Acute and chronic respiratory failure with hypoxia; E44.1 Mild protein-calorie malnutrition; J44.1 Chronic obstructive pulmonary disease with (acute) exacerbation; N17.9 Acute kidney failure, unspecified; I87.333 Chronic venous hypertension (idiopathic) with ulcer and inflammation of bilateral lower extremity; L97.221 Non-pressure chronic ulcer of left calf limited to breakdown of skin; L97.211 Non-pressure chronic ulcer of right calf limited to breakdown of skin; N39.0 Urinary tract infection, site not specified; Z68.41 Body mass index [BMI] 40.0-44.9, adult; J44.0 Chronic obstructive pulmonary disease with (acute) lower respiratory infection; I11.0 Hypertensive heart disease with heart failure; I27.20 Pulmonary hypertension, unspecified; E11.622 Type 2 diabetes mellitus with other skin ulcer; D64.9 Anemia, unspecified; F32.A Depression, unspecified; E66.01 Morbid (severe) obesity due to excess calories; E03.9 Hypothyroidism, unspecified; E11.65 Type 2 diabetes mellitus with hyperglycemia; I08.3 Combined rheumatic disorders of mitral, aortic and tricuspid valves; Z99.81 Dependence on supplemental oxygen; B96.20 Unspecified Escherichia coli [E. coli] as the cause of diseases classified elsewhere; T38.0X5A Adverse effect of glucocorticoids and synthetic analogues, initial encounter; B96.89 Other specified bacterial agents as the cause of diseases classified elsewhere; Z91.19 Patient's noncompliance with other medical treatment and regimen; E78.5 Hyperlipidemia, unspecified; M19.90 Unspecified osteoarthritis, unspecified site; G89.29 Other chronic pain; H40.9 Unspecified glaucoma; F41.9 Anxiety disorder, unspecified; E87.6 Hypokalemia; I87.2 Venous insufficiency (chronic) (peripheral); M79.89 Other specified soft tissue disorders; M51.36 Other intervertebral disc degeneration, lumbar region; Z20.822 Contact with and (suspected) exposure to COVID-19; Z88.0 Allergy status to penicillin; Z79.84 Long term (current) use of oral hypoglycemic drugs; Z79.890 Hormone replacement therapy; Z79.51 Long term (current) use of inhaled steroids; Z91.048 Other nonmedicinal substance allergy status; Z88.1 Allergy status to other antibiotic agents; Z91.040 Latex allergy status; Z88.3 Allergy status to other anti-infective agents; Z88.8 Allergy status to other drugs, medicaments and biological substances; Z88.2 Allergy status to sulfonamides; Z85.828 Personal history of other malignant neoplasm of skin; Z87.442 Personal history of urinary calculi; Z91.81 History of falling; Z79.899 Other long term (current) drug therapy; Z87.891 Personal history of nicotine dependence; Z86.19 Personal history of other infectious and parasitic diseases; Z90.89 Acquired absence of other organs; Z90.49 Acquired absence of other specified parts of digestive tract; Z98.890 Other specified postprocedural states; Z98.51 Tubal ligation status; Z93.3 Colostomy status; Z82.5 Family history of asthma and other chronic lower respiratory diseases; Z80.8 Family history of malignant neoplasm of other organs or systems; Z82.49 Family history of ischemic heart disease and other diseases of the circulatory system
CPT/HCPCS: 36415; 71045; 71046; 80048; 80053; 80069; 81001; 83036; 83605; 83735; 83880; 84145; 84484; 85025; 85027; 85610; 85730; 86850; 86900; 86901; 86920; 87077; 87086; 87186; 87502; 87635; 93005; 94640; 94760; 96365; 96366; 96375; 99285

== ENCOUNTER 2022-04-25 11:17 | Inpatient (IN) | payer MEDICARE, OTHER ==
[2022-04-25] MEDS ORDERED: IPRATROPIUM 0.5 MG/2.5 ML NEBU INHALATION STA (11:43)
[2022-04-25] MEDS ORDERED: ALBUTEROL NEBULIZED 2.5 MG/3 ML INHALATION STA (11:43)
[2022-04-25] MEDS ORDERED: DEXAMETHASONE SOD PHOSPHATE 10 MG/ML 1 ML VIAL IV STA (11:43)
--- NOTE | 2022-04-25 11:50 | ED ---
General Adult HPI - General Chief complaint: Shortness of Breath Stated complaint: pippa Time Seen by Provider: 04/25/22 11:19 Source: patient Mode of arrival: EMS - History of Present Illness Initial comments: Dictation was produced using [employer] dictation software. please excuse any grammatical, word or spelling errors. Chief Complaint: 71-year-old female with multiple comorbidities presents to the ER for 2 days of short of breath History of Present Illness: She 71-year-old female she has multiple comorbidities she states that she was short of breath for the last 48 hours. She states that her symptoms began sometime yesterday. Patient has history of h eart failure and COPD. Patient has any fever. She does report cough. Denies any chest pain. She said her symptoms are worse when she lies flat. She was oxygen at home at baseline. Patient is brought in by EMS patient was found to be hypoxic in the low 80s upper 70s. Patient received 2 breathing treatments and Solu-Medrol by prehospital providers The ROS documented in this emergency department record has been reviewed and confirmed by me. Those systems with pertinent positive or negative responses have been documented in the HPI. All other systems are other negative and/or noncontributory. PHYSICAL EXAM: General Impression: Alert and oriented x3, not in acute distress, satting well with 15 L nonrebreather HEENT: Normocephalic atraumatic, extra-ocular movements intact, pupils equal and reactive to light bilaterally, mucous membranes moist. Cardiovascular: Heart regular rate and rhythm Chest: Diffuse lung wheezing Abdomen: abdomen soft, non-tender, non-distended, no organomegaly Musculoskeletal: Pulses present and equal in all extremities, bilateral 2+ pitting edema Motor: no focal deficits noted Neurological: CN II-XII grossly intact, no focal motor or sensory deficits noted Skin: Intact with no visualized rashes Psych: Normal affect and mood ED course: 71-year-old female presents to the emergency room for dyspnea and hypoxia. Patient states she's been symptomatic for the last 24-48 hours per she has multiple comorbidities. Vital signs upon arrival shows respiratory rate of 32, 95% on 15 L nonrebreather, rest of vital signs within acceptable limits. Bony care bedside ultrasound was performed showing a lines making heart failure exacerbation less likely. Laboratory evaluation obtained. Mild leukocytosis of 11.1. This appears to be around patient's baseline. Hemoglobin is 8.0 which is also on patient's baseline. Rest of CBC within acceptable limits. Coag panel is unremarkable. Renal markers are slightly elevated with a creatinine of 1.83 BUN of 44. Chest x-ray shows cardiomegaly with increased interstitial markings suggesting to mild to moderate interstitial edema there is concern of heart failure exacerbation radiographically. Patient reevaluated at bedside at 12:50 PM. She is stable appearing she is weaned down to nasal cannula oxygen with good saturations. Patient not showing any significant signs of respiratory distress. Patient did report significant improvement after the breathing treatments. Patient be admitted. She is given Lasix for radial graphic concerns of heart failure. Patient is agreeable with disposition plan. Consultation made to cardiology and pulmonology. EKG interpretation: Ventricular rate 83, sinus rhythm, AR interval 165, care 77, QTC 395. No AR prolongation, no QTC prolongation, no ST or T-wave changes noted. EKG compared to 04/07/2022 showing no changes. Overall, this EKG is unremarkable - Related Data Home Medications Medication Instructions Recorded Confirmed ARIPiprazole [Abilify] 5 mg PO HS 02/07/18 04/07/22 metFORMIN HCL [Glucophage] 1,000 mg PO BID-W/MEALS 02/07/18 04/07/22 Levothyroxine Sodium [Synthroid] 200 mcg PO DAILY 09/03/19 04/07/22 traZODone HCL 100 mg PO HS PRN 05/15/20 04/07/22 Albuterol Nebulized [Ventolin 2.5 mg INHALATION RT-Q6H PRN 10/19/21 04/07/22 Nebulized] Albuterol Sulfate [Albuterol 2 puff PO RT-Q6H PRN 10/19/21 04/07/22 Sulfate Hfa] Cholecalciferol [Vitamin D3 (25 25 mcg PO DAILY 10/19/21 04/07/22 Mcg = 1000 Iu)] Ferrous Sulfate [Iron (65 MG 325 mg PO Q48H 10/19/21 04/07/22 Elemental)] Metoprolol Succinate [Toprol XL] 25 mg PO DAILY 11/07/21 04/07/22 Citalopram Hydrobromide [CeleXA] 40 mg PO DAILY 01/30/22 04/07/22 Budesonide-Formot 160-4.5 Mcg 2 puff INHALATION RT-BID 02/13/22 04/07/22 [Symbicort 160-4.5 Mcg Inhaler] Ipratropium-Albuterol Nebulize 3 ml INHALATION RT-QID 02/13/22 04/07/22 [Duoneb 0.5 mg-3 mg/3 ml Soln] allopurinoL [Zyloprim] 100 mg PO DAILY 02/13/22 04/07/22 Fluconazole 200 mg PO DAILY 04/07/22 04/07/22 Methenamine Hippurate 1 gm PO BID 04/07/22 04/07/22 Minocycline HCl [Minocin] 100 mg PO BID 04/07/22 04/07/22 Nystatin 100,000Unit/gm Cream 1 applic TOPICAL BID 04/07/22 04/07/22 [Mycostatin Cream] Prochlorperazine Maleate 10 mg PO TID PRN 04/07/22 04/07/22 Previous Rx's Medication Instructions Recorded Atorvastatin [Lipitor] 40 mg PO DAILY #30 tab 09/10/18 HYDROcodone/APAP 7.5-325MG [[place] 1 tab PO Q6H PRN #12 tab 03/27/20 7.5-325] Magnesium Oxide [Mag-Ox] 400 mg PO DAILY #30 tablet 02/16/22 Acetaminophen Tab [Tylenol] 650 mg PO Q6HR PRN tab 04/12/22 Furosemide [Lasix] 40 mg PO DAILY 30 Days #30 tab 04/12/22 Losartan [Cozaar] 50 mg PO DAILY 30 Days #30 tab 04/12/22 amLODIPine [Norvasc] 10 mg PO DAILY 30 Days #30 tab 04/12/22 cefUROXime axetiL [Ceftin] 500 mg PO BID 5 Days #10 tab 04/12/22 glipiZIDE [Glucotrol] 5 mg PO AC-BRKFST 30 Days #30 tab 04/12/22 predniSONE 10 mg PO DIRECTED #18 tab 04/12/22 Allergies Allergy/AdvReac Type Severity Reaction Status Date / Time adhesive Allergy Rash/Hives Verified 04/25/22 11:26 ciprofloxacin [From Cipro] Allergy Rash/Hives Verified 04/25/22 11:26 ciprofloxacin HCl Allergy Rash/Hives Verified 04/25/22 11:26 [From Cipro] latex Allergy Rash/Hives Verified 04/25/22 11:26 levofloxacin [From Levaquin] Allergy Rash/Hives Verified 04/25/22 11:26 nitrofurantoin Allergy Rash/Hives Verified 04/25/22 11:26 [From Macrobid] nitrofurantoin Allergy Rash/Hives Verified 04/25/22 11:26 macrocrystalline [From Macrobid] Penicillins Allergy Rash/Hives Verified 04/25/22 11:26 propoxyphene HCl Allergy Rash/Hives Verified 04/25/22 11:26 [From Darvon] propoxyphene napsylate Allergy Unknown Verified 04/25/22 11:26 [From Darvocet-N] sulfamethoxazole Allergy PIPPA Verified 04/25/22 11:26 [From Bactrim] trimethoprim [From Bactrim] Allergy PIPPA Verified 04/25/22 11:26 Review of Systems ROS Statement: Those systems with pertinent positive or pertinent negative responses have been documented in the HPI. ROS Other: All systems not noted in ROS Statement are negative. 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 glaucoma, chronic back pain and degenerative disk disease in the lumbar spine , nephrolithiasis, history of cellulitis in the legs and history of falls. The patient is also a recently quit smoker. History of Any Multi-Drug Resistant Organisms: VRE Date of last positivie culture/infection: 10/21/21 MDRO Source:: urine Past Surgical History: Appendectomy, Bowel Resection, Section, Cholecystectomy, Orthopedic Surgery, Tubal Ligation Additional Past Surgical History / Comment(s): LASER SX JETHRO EYES FOR GLAUCOMA. RT KNEE ARTHROSCOPY. UNDERWENT PERCUTANEOUS NEPHROSTOLITHOTOMY, colostomy Past Anesthesia/Blood Transfusion Reactions: No Reported Reaction Past Psychological History: Anxiety, Depression Smoking Status: Current every day smoker - Past Family History Mother Family Medical History: COPD Additional Family Medical History / Comment(s): emphysema, heart valve problems, in her sleep. Brother(s) Family Medical History: Cancer Additional Family Medical History / Comment(s): from oral cancer Father Brother(s) Family Medical History: Cancer Additional Family Medical History / Comment(s): heart disease Course Vital Signs 04/25/22 04/25/22 11:20 12:10 Temperature 98.4 F Pulse Rate 93 Respiratory 32 H 22 Rate Blood Pressure 133/52 O2 Sat by Pulse 95 Oximetry Medical Decision Making - Lab Data Result diagrams: 04/25/22 11:55 04/25/22 11:55 Lab Results 04/25/22 04/25/22 04/25/22 Range/Units 11:55 11:55 11:55 WBC 11.1 H (3.8-10.6) k/uL RBC 2.67 L (3.80-5.40) m/uL Hgb 8.0 L (11.4-16.0) gm/dL Hct 26.7 L (34.0-46.0) % MCV 100.0 (80.0-100.0) fL MCH 29.9 (25.0-35.0) pg MCHC 29.9 L (31.0-37.0) g/dL RDW 16.4 H (11.5-15.5) % Plt Count 296 (150-450) k/uL MPV 7.3 Neutrophils % 88 % Lymphocytes % 5 % Monocytes % 3 % Eosinophils % 1 % Basophils % 0 % Neutrophils # 9.8 H (1.3-7.7) k/uL Lymphocytes # 0.6 L (1.0-4.8) k/uL Monocytes # 0.3 (0-1.0) k/uL Eosinophils # 0.1 (0-0.7) k/uL Basophils # 0.0 (0-0.2) k/uL Hypochromasia Marked Anisocytosis Slight Macrocytosis Slight PT 11.5 (9.0-12.0) sec INR 1.1 (<1.2) APTT 23.5 (22.0-30.0) sec Sodium 135 L (137-145) mmol/L Potassium 4.8 (3.5-5.1) mmol/L Chloride 100 (98-107) mmol/L Carbon Dioxide 23 (22-30) mmol/L Anion Gap 12 mmol/L BUN 44 H (7-17) mg/dL Creatinine 1.83 H (0.52-1.04) mg/dL Est GFR (CKD-EPI)AfAm 31 (>60 ml/min/1.73 sqM) Est GFR (CKD-EPI)NonAf 27 (>60 ml/min/1.73 sqM) Glucose 142 H (74-99) mg/dL Plasma Lactic Acid Ravi (0.7-2.0) mmol/L Calcium 8.3 L (8.4-10.2) mg/dL Magnesium 2.0 (1.6-2.3) mg/dL Total Bilirubin 0.6 (0.2-1.3) mg/dL AST 11 L (14-36) U/L ALT 12 (4-34) U/L Alkaline Phosphatase 176 H (38-126) U/L Troponin I (0.000-0.034) ng/mL Total Protein 5.5 L (6.3-8.2) g/dL Albumin 2.7 L (3.5-5.0) g/dL 04/25/22 04/25/22 Range/Units 11:55 11:55 WBC (3.8-10.6) k/uL RBC (3.80-5.40) m/uL Hgb (11.4-16.0) gm/dL Hct (34.0-46.0) % MCV (80.0-100.0) fL MCH (25.0-35.0) pg MCHC (31.0-37.0) g/dL RDW (11.5-15.5) % Plt Count (150-450) k/uL MPV Neutrophils % % Lymphocytes % % Monocytes % % Eosinophils % % Basophils % % Neutrophils # (1.3-7.7) k/uL Lymphocytes # (1.0-4.8) k/uL Monocytes # (0-1.0) k/uL Eosinophils # (0-0.7) k/uL Basophils # (0-0.2) k/uL Hypochromasia Anisocytosis Macrocytosis PT (9.0-12.0) sec INR (<1.2) APTT (22.0-30.0) sec Sodium (137-145) mmol/L Potassium (3.5-5.1) mmol/L Chloride (98-107) mmol/L Carbon Dioxide (22-30) mmol/L Anion Gap mmol/L BUN (7-17) mg/dL Creatinine (0.52-1.04) mg/dL Est GFR (CKD-EPI)AfAm (>60 ml/min/1.73 sqM) Est GFR (CKD-EPI)NonAf (>60 ml/min/1.73 sqM) Glucose (74-99) mg/dL Plasma Lactic Acid Ravi 0.7 (0.7-2.0) mmol/L Calcium (8.4-10.2) mg/dL Magnesium (1.6-2.3) mg/dL Total Bilirubin (0.2-1.3) mg/dL AST (14-36) U/L ALT (4-34) U/L Alkaline Phosphatase (38-126) U/L Troponin I <0.012 (0.000-0.034) ng/mL Total Protein (6.3-8.2) g/dL Albumin (3.5-5.0) g/dL Critical Care Time Critical Care Time: Yes Total Critical Care Time: 33 Disposition Clinical Impression: Dyspnea Disposition: ADMITTED IP TO THIS [facility] Condition: Fair Referrals: Levi Austin MD [REFERRING] - 1-2 days Decision Time: 12:49
[2022-04-25 12:12] LABS: Anisocytosis Slight; Basophils % (A) 0 %; Eosinophils # (A) 0.1 k/uL (0-0.7); Eosinophils % (A) 1 %; HCT 26.7 % (34.0-46.0); Hypochromasia Marked; Lymphocytes # (A) 0.6 k/uL (1.0-4.8); Lymphocytes % (A) 5 %; MCH 29.9 pg (25.0-35.0); MCHC 29.9 g/dL (31.0-37.0); Macrocytosis Slight; Mean Platelet Volume 7.3; Monocytes # (A) 0.3 k/uL (0-1.0); Monocytes % (A) 3 %; Neutrophils # (A) 9.8 k/uL (1.3-7.7); Neutrophils % (A) 88 %; Platelet Count 296 k/uL (150-450); RBC 2.67 m/uL (3.80-5.40); RDW 16.4 % (11.5-15.5); WBC 11.1 k/uL (3.8-10.6)
--- NOTE | 2022-04-25 12:19 | XR ---
EXAMINATION TYPE: XR chest 1V portable DATE OF EXAM: 04/25/2022 COMPARISON: Chest x-ray April 10, 2022 and older studies. HISTORY: Dyspnea. TECHNIQUE: Single portable frontal view of the chest is obtained. FINDINGS: There is cardiomegaly with atherosclerotic thoracic aorta. Increased interstitial marking s bilaterally are redemonstrated. The osseous structures remain demineralized. IMPRESSION: Cardiomegaly with increased interstitial markings suggesting mild to moderate interstiti al edema bilaterally redemonstrated. No significant change from most recent x-ray. Correlate for CHF exacerbation.
[2022-04-25 12:26] LABS: Albumin 2.7 g/dL (3.5-5.0); Calcium 8.3 mg/dL (8.4-10.2); Potassium 4.8 mmol/L (3.5-5.1); Total Bilirubin 0.6 mg/dL (0.2-1.3); Total Protein 5.5 g/dL (6.3-8.2)
[2022-04-25 12:29] LABS: INR 1.1 (<1.2); Partial Thromboplastin Time 23.5 sec (22.0-30.0); Prothrombin Time 11.5 sec (9.0-12.0)
[2022-04-25] MEDS ORDERED: FUROSEMIDE 10 MG/ML 4 ML VIAL IV STA (12:41)
[2022-04-25] MEDS ORDERED: AZITHROMYCIN 500 MG TAB PO STA (12:42)
[2022-04-25] MEDS ORDERED: NALOXONE 0.4 MG/ML 1 ML VIAL IVP PRN (12:46)
[2022-04-25] MEDS ORDERED: FUROSEMIDE 10 MG/ML 4 ML VIAL ONE (17:38)
[2022-04-25] MEDS ORDERED: IPRATROPIUM-ALBUTEROL 3 ML NEB ONE (17:38)
[2022-04-25] MEDS ORDERED: ACETAMINOPHEN TAB 325 MG TAB PO PRN (21:21)
--- NOTE | 2022-04-25 21:38 | P.HPIM ---
History of Present Illness Patient is a 71-year-old female with a known history of hypertension, hyperlipidemia, osteoarthritis, COPD and basal skin carcinoma of the eyelid, chronic back pain and degenerative disc disease, anxiety/depression and previous history of smoking quit about 3 years ago presents to ER with complaints of worsening shortness of breath for the past 2 days. This has been associated with more frequent cough and and phlegm, although her cough is chronic but with recent worsening. She denies chest pain but she is complaining of from back pain and bilateral leg pain. Also patient has been complaining of from her lateral leg wounds with dressing in place. Patient refused to take off the dressing to check him. She denies vomiting or diarrhea. No urinary complaints. No headache or dizziness. No weakness or numbness No alcohol or illicit drugs daughter at bedside Patient is tachypneic at 22, blood pressure is 133/52 She's hypoxic. At home she is on 4 L oxygen. Her oxygen saturation is 94%. Her oxygen requirement increased to 8 during the evening. No fever. Labs show leukocytosis of 11.1. Hemoglobin 8.0. Platelets normal. INR normal at 1.1. Creatinine went up to 1.8, baseline 1.0-1.1 EKG showing normal sinus rhythm at [address]-T changes Chest x-ray: Cardiomegaly with increased interstitial markings suggesting [id number] interstitial edema bilaterally redemonstration. No significant change from most recent x-ray. Correlate for CHF (the actual image did not open for technical reasons) She was admitted to the hospital on October, January and March of this year. This is the fourth admission for similar conditions Review of Systems Review of systems CONSTITUTIONAL: No fever, no malaise, no fatigue. HEENT: No recent visual problems or hearing problems. Denied any sore throat. CARDIOVASCULAR: No syncope, no palpitations, no syncope. PULMONARY: No chest wall tenderness, no hemoptysis. GASTROINTESTINAL: No diarrhea, no nausea, no vomiting, no abdominal pain. Normoactive bowel sounds. NEUROLOGICAL: No headaches, no weakness, no numbness. HEMATOLOGICAL: Denies any bleeding or petechiae. GENITOURINARY: Denies any burning micturition, frequency, or urgency. MUSCULOSKELETAL/RHEUMATOLOGICAL: Denies any joint pain, swelling, or any muscle pain. ENDOCRINE: Denies any polyuria or polydipsia. 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 glaucoma, chronic back pain and degenerative disk disease in the lumbar spine , nephrolithiasis, history of cellulitis in the legs and history of falls. The patient is also a recently quit smoker. History of Any Multi-Drug Resistant Organisms: VRE Date of last positivie culture/infection: 10/21/21 MDRO Source:: urine Past Surgical History: Appendectomy, Bowel Resection, Section, Cholecystectomy, Orthopedic Surgery, Tubal Ligation Additional Past Surgical History / Comment(s): LASER SX JETHRO EYES FOR GLAUCOMA. RT KNEE ARTHROSCOPY. UNDERWENT PERCUTANEOUS NEPHROSTOLITHOTOMY, colostomy Past Anesthesia/Blood Transfusion Reactions: No Reported Reaction Past Psychological History: Anxiety, Depression Smoking Status: Current every day smoker - Past Family History Mother Family Medical History: COPD Additional Family Medical History / Comment(s): emphysema, heart valve problems, in her sleep. Brother(s) Family Medical History: Cancer Additional Family Medical History / Comment(s): from oral cancer Father Brother(s) Family Medical History: Cancer Additional Family Medical History / Comment(s): heart disease Medications and Allergies Home Medications Medication Instructions Recorded Confirmed Type ARIPiprazole [Abilify] 5 mg PO HS 02/07/18 04/25/22 History metFORMIN HCL [Glucophage] 1,000 mg PO BID-W/MEALS 02/07/18 04/25/22 History Atorvastatin [Lipitor] 40 mg PO DAILY #30 tab 09/10/18 04/25/22 Rx Levothyroxine Sodium [Synthroid] 200 mcg PO DAILY 09/03/19 04/25/22 History HYDROcodone/APAP 7.5-325MG [[place] 1 tab PO Q6H PRN #12 tab 03/27/20 04/25/22 Rx 7.5-325] traZODone HCL 100 mg PO HS PRN 05/15/20 04/25/22 History Albuterol Nebulized [Ventolin 2.5 mg INHALATION RT-Q6H PRN 10/19/21 04/25/22 History Nebulized] Albuterol Sulfate [Albuterol 2 puff PO RT-Q6H PRN 10/19/21 04/25/22 History Sulfate Hfa] Cholecalciferol [Vitamin D3 (25 25 mcg PO DAILY 10/19/21 04/25/22 History Mcg = 1000 Iu)] Ferrous Sulfate [Iron (65 MG 325 mg PO Q48H 10/19/21 04/25/22 History Elemental)] Metoprolol Succinate [Toprol XL] 25 mg PO DAILY 11/07/21 04/25/22 History Citalopram Hydrobromide [CeleXA] 40 mg PO DAILY 01/30/22 04/25/22 History Budesonide-Formot 160-4.5 Mcg 2 puff INHALATION RT-BID 02/13/22 04/25/22 History [Symbicort 160-4.5 Mcg Inhaler] Ipratropium-Albuterol Nebulize 3 ml INHALATION RT-QID 02/13/22 04/25/22 History [Duoneb 0.5 mg-3 mg/3 ml Soln] allopurinoL [Zyloprim] 100 mg PO DAILY 02/13/22 04/25/22 History Magnesium Oxide [Mag-Ox] 400 mg PO DAILY #30 tablet 02/16/22 04/25/22 Rx Methenamine Hippurate 1 gm PO BID 04/07/22 04/25/22 History Nystatin 100,000Unit/gm Cream 1 applic TOPICAL BID 04/07/22 04/25/22 History [Mycostatin Cream] Prochlorperazine Maleate 10 mg PO TID PRN 04/07/22 04/25/22 History Acetaminophen Tab [Tylenol] 650 mg PO Q6HR PRN tab 04/12/22 04/25/22 Rx Furosemide [Lasix] 40 mg PO DAILY 30 Days #30 tab 04/12/22 04/25/22 Rx Losartan [Cozaar] 50 mg PO DAILY 30 Days #30 tab 04/12/22 04/25/22 Rx amLODIPine [Norvasc] 10 mg PO DAILY 30 Days #30 tab 04/12/22 04/25/22 Rx glipiZIDE [Glucotrol] 5 mg PO AC-BRKFST 30 Days #30 tab 04/12/22 04/25/22 Rx Allergies Allergy/AdvReac Type Severity Reaction Status Date / Time adhesive Allergy Rash/Hives Verified 04/25/22 11:26 ciprofloxacin [From Cipro] Allergy Rash/Hives Verified 04/25/22 11:26 ciprofloxacin HCl Allergy Rash/Hives Verified 04/25/22 11:26 [From Cipro] latex Allergy Rash/Hives Verified 04/25/22 11:26 levofloxacin [From Levaquin] Allergy Rash/Hives Verified 04/25/22 11:26 nitrofurantoin Allergy Rash/Hives Verified 04/25/22 11:26 [From Macrobid] nitrofurantoin Allergy Rash/Hives Verified 04/25/22 11:26 macrocrystalline [From Macrobid] Penicillins Allergy Rash/Hives Verified 04/25/22 11:26 propoxyphene HCl Allergy Rash/Hives Verified 04/25/22 11:26 [From Darvon] propoxyphene napsylate Allergy Unknown Verified 04/25/22 11:26 [From Darvocet-N] sulfamethoxazole Allergy PIPPA Verified 04/25/22 11:26 [From Bactrim] trimethoprim [From Bactrim] Allergy PIPPA Verified 04/25/22 11:26 Physical Exam Vitals: Vital Signs Temp Pulse Resp BP Pulse Ox 04/25/22 12:10 22 04/25/22 11:20 98.4 F 93 32 H 133/52 95 Intake and Output 04/25/22 04/25/22 04/25/22 06:59 14:59 22:59 Other: Weight 72.575 kg -GENERAL: The patient is alert and oriented x3, in acute small to moderate respiratory distress. Obese HEENT: Pupils are round and equally reacting to light. EOMI. No scleral icterus. No conjunctival pallor. Normocephalic, atraumatic. No pharyngeal erythema. No thyromegaly. CARDIOVASCULAR: S1 and S2 present. No murmurs, rubs, or gallops. -PULMONARY: Chest is clear to auscultation,Decreased air entry on both sides with minimal scattered wheezing ABDOMEN: Soft, nontender, nondistended, normoactive bowel sounds. No palpable organomegaly. MUSCULOSKELETAL: No joint swelling or deformity. -EXTREMITIES: No cyanosis, clubbing, 1+ bilateral pitting like edema NEUROLOGICAL: Gross neurological examination did not reveal any focal deficits. SKIN: No rashes. no petechiae. Results CBC & Chem 7: 04/25/22 11:55 04/25/22 11:55 Labs: Abnormal Lab Results - Last 24 Hours (Table) 04/25/22 04/25/22 Range/Units 11:55 11:55 WBC 11.1 H (3.8-10.6) k/uL RBC 2.67 L (3.80-5.40) m/uL Hgb 8.0 L (11.4-16.0) gm/dL Hct 26.7 L (34.0-46.0) % MCHC 29.9 L (31.0-37.0) g/dL RDW 16.4 H (11.5-15.5) % Neutrophils # 9.8 H (1.3-7.7) k/uL Lymphocytes # 0.6 L (1.0-4.8) k/uL Sodium 135 L (137-145) mmol/L BUN 44 H (7-17) mg/dL Creatinine 1.83 H (0.52-1.04) mg/dL Glucose 142 H (74-99) mg/dL Calcium 8.3 L (8.4-10.2) mg/dL AST 11 L (14-36) U/L Alkaline Phosphatase 176 H (38-126) U/L Total Protein 5.5 L (6.3-8.2) g/dL Albumin 2.7 L (3.5-5.0) g/dL Assessment and Plan Assessment: Shortness of breath secondary to COPD and CHF.Pneumonia not entirely excluded although felt less likely Acute COPD exacerbation Acute on chronic hypoxic respiratory failure secondary to above Acut the chronic diastolic CHF Acute kidney injury likely prerenal CKD stage IIIB Chronic hypoxic respiratory failure on 3-4 L oxygen via nasal cannula. Morbid obesity with BMI 41.9 Deconditioning related to multiple hospitalization Hypertension Hypokalemia Diabetes type 2 xnd-[id number] Osteoarthritis Hypothyroidism History of cellulitis of legs Obesity with BMI of 32.3 Plan: This is a pleasant 71 years old female who presents with dyspnea mostly COPD and CHF Continue with Solu-Medrol Continue with antibiotic and check a pro-calcitonin Start Lasix 40 mg twice daily. Check proBNP Cardiology and pulmonary consult Oxygen as needed and breathing treatment Labs and medication were reviewed.. Continue same treatment. Continue with symptomatic treatment. Resume home medication. Monitor lytes and vitals. DVT and GI prophylaxis. Further recommendations as per clinical course of the patient DVT prophylaxis: Subcutaneous heparin GI Prophylaxis: Pepcid PT/OT: Pending Short-term Prognosis is guarded, long-term prognosis is also poor given her complex and multiple medical problems with recurrent hospitalization. If patient does not improve then we would recommend more palliative approach of the treatment
[2022-04-25] MEDS ORDERED: DEXTROSE 50% SYRINGE 50 ML IVP PRN ×2 (21:43)
--- NOTE | 2022-04-25 21:45 | P.CNPUL ---
History of Present Illness Consult date: 04/25/22 Reason for consult: dyspnea, COPD Chief complaint: Shortness of breath History of present illness: This is a very pleasant 71-year-old female with a known history of hypertension, hyperlipidemia, osteoarthritis, COPD and basal skin carcinoma of the eyelid, chronic back pain and degenerative disc disease, anxiety/depression and previous history of smoking however quit 3 years ago. She is oxygen dependent on 4 L at home. She presents again to the emergency room with a two-day history of increasing shortness of breath, chest tightness and wheezing. Stating her O2 saturation was down to 75%. She does have a history of ventilatory dependent respiratory failure approximate 3 years ago. She follows with Dr. Cho in our office. She is maintained on DuoNeb inhalations, Symbicort, albuterol HFA. She was recently discharged from here for congestive heart failure. Today's chest x-ray shows cardiomegaly with increased interstitial markings and mild to moderate interstitial edema bilaterally redemonstrated no significant change compared to previous on 04/10/2022. She had been seen by cardiology last admis alvarado. White count 11.1. Hemoccult 8.0. Sodium 135. Potassium 4.8. BUN 44. Creatinine 1.83. Glucose 142. Troponin negative 1. She is currently on Lasix 40 mg IV every 12 hours, Symbicort, DuoNeb inhalations, IV Solu-Medrol. She is seen today in consultation in the emergency department. She is sitting up in the stretcher. Awake and alert in no acute distress. She is quite bronchus spastic and wheezy. She is dyspneic with conversation. Dyspneic with minimal exertion. Maintain O2 saturations in the 90s on 8 L high flow nasal cannula. Afebrile. Hemodynamically stable. Review of Systems REVIEW OF SYSTEMS: CONSTITUTIONAL: Denies any recent significant weight loss or weight gain. EYES: Denies change in vision. EARS, NOSE, MOUTH, THROAT: Denies headaches, denies sore throat. CARDIOVASCULAR: Denies chest pain, palpitations or syncopal episodes. RESPIRATORY: Positive for shortness of breath, cough, congestion no hemoptysis. GASTROINTESTINAL: Denies change in appetite, denies abdominal pain GENITOURINARY: Denies hematuria, denies infections. MUSKULOSKELETAL: Denies pain, denies swelling. INTEGUMENTARY: Denies rash, denies eczema. NEUROLOGICAL: Denies recent memory loss, no recent seizure activity. PSYCHIATRIC: Denies anxiety, denies depression. HEMATOLOGIC/LYMPHATIC: Denies anemia, denies enlarged lymph nodes. 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 glaucoma, chronic back pain and degenerative disk disease in the lumbar spine , nephrolithiasis, history of cellulitis in the legs and history of falls. The patient is also a recently quit smoker. History of Any Multi-Drug Resistant Organisms: VRE Date of last positivie culture/infection: 10/21/21 MDRO Source:: urine Past Surgical History: Appendectomy, Bowel Resection, Section, Cholecystectomy, Orthopedic Surgery, Tubal Ligation Additional Past Surgical History / Comment(s): LASER SX JETHRO EYES FOR GLAUCOMA. RT KNEE ARTHROSCOPY. UNDERWENT PERCUTANEOUS NEPHROSTOLITHOTOMY, colostomy Past Anesthesia/Blood Transfusion Reactions: No Reported Reaction Past Psychological History: Anxiety, Depression Smoking Status: Current every day smoker - Past Family History Mother Family Medical History: COPD Additional Family Medical History / Comment(s): emphysema, heart valve problems, in her sleep. Brother(s) Family Medical History: Cancer Additional Family Medical History / Comment(s): from oral cancer Father Brother(s) Family Medical History: Cancer Additional Family Medical History / Comment(s): heart disease Medications and Allergies Home Medications Medication Instructions Recorded Confirmed Type ARIPiprazole [Abilify] 5 mg PO HS 02/07/18 04/25/22 History metFORMIN HCL [Glucophage] 1,000 mg PO BID-W/MEALS 02/07/18 04/25/22 History Atorvastatin [Lipitor] 40 mg PO DAILY #30 tab 09/10/18 04/25/22 Rx Levothyroxine Sodium [Synthroid] 200 mcg PO DAILY 09/03/19 04/25/22 History HYDROcodone/APAP 7.5-325MG [[place] 1 tab PO Q6H PRN #12 tab 03/27/20 04/25/22 Rx 7.5-325] traZODone HCL 100 mg PO HS PRN 05/15/20 04/25/22 History Albuterol Nebulized [Ventolin 2.5 mg INHALATION RT-Q6H PRN 10/19/21 04/25/22 History Nebulized] Albuterol Sulfate [Albuterol 2 puff PO RT-Q6H PRN 10/19/21 04/25/22 History Sulfate Hfa] Cholecalciferol [Vitamin D3 (25 25 mcg PO DAILY 10/19/21 04/25/22 History Mcg = 1000 Iu)] Ferrous Sulfate [Iron (65 MG 325 mg PO Q48H 10/19/21 04/25/22 History Elemental)] Metoprolol Succinate [Toprol XL] 25 mg PO DAILY 11/07/21 04/25/22 History Citalopram Hydrobromide [CeleXA] 40 mg PO DAILY 01/30/22 04/25/22 History Budesonide-Formot 160-4.5 Mcg 2 puff INHALATION RT-BID 02/13/22 04/25/22 History [Symbicort 160-4.5 Mcg Inhaler] Ipratropium-Albuterol Nebulize 3 ml INHALATION RT-QID 02/13/22 04/25/22 History [Duoneb 0.5 mg-3 mg/3 ml Soln] allopurinoL [Zyloprim] 100 mg PO DAILY 02/13/22 04/25/22 History Magnesium Oxide [Mag-Ox] 400 mg PO DAILY #30 tablet 02/16/22 04/25/22 Rx Methenamine Hippurate 1 gm PO BID 04/07/22 04/25/22 History Nystatin 100,000Unit/gm Cream 1 applic TOPICAL BID 04/07/22 04/25/22 History [Mycostatin Cream] Prochlorperazine Maleate 10 mg PO TID PRN 04/07/22 04/25/22 History Acetaminophen Tab [Tylenol] 650 mg PO Q6HR PRN tab 04/12/22 04/25/22 Rx Furosemide [Lasix] 40 mg PO DAILY 30 Days #30 tab 04/12/22 04/25/22 Rx Losartan [Cozaar] 50 mg PO DAILY 30 Days #30 tab 04/12/22 04/25/22 Rx amLODIPine [Norvasc] 10 mg PO DAILY 30 Days #30 tab 04/12/22 04/25/22 Rx glipiZIDE [Glucotrol] 5 mg PO AC-BRKFST 30 Days #30 tab 04/12/22 04/25/22 Rx Allergies Allergy/AdvReac Type Severity Reaction Status Date / Time adhesive Allergy Rash/Hives Verified 04/25/22 11:26 ciprofloxacin [From Cipro] Allergy Rash/Hives Verified 04/25/22 11:26 ciprofloxacin HCl Allergy Rash/Hives Verified 04/25/22 11:26 [From Cipro] latex Allergy Rash/Hives Verified 04/25/22 11:26 levofloxacin [From Levaquin] Allergy Rash/Hives Verified 04/25/22 11:26 nitrofurantoin Allergy Rash/Hives Verified 04/25/22 11:26 [From Macrobid] nitrofurantoin Allergy Rash/Hives Verified 04/25/22 11:26 macrocrystalline [From Macrobid] Penicillins Allergy Rash/Hives Verified 04/25/22 11:26 propoxyphene HCl Allergy Rash/Hives Verified 04/25/22 11:26 [From Darvon] propoxyphene napsylate Allergy Unknown Verified 04/25/22 11:26 [From Darvocet-N] sulfamethoxazole Allergy PIPPA Verified 04/25/22 11:26 [From Bactrim] trimethoprim [From Bactrim] Allergy PIPPA Verified 04/25/22 11:26 Physical Exam Vitals: Vital Signs Temp Pulse Resp BP Pulse Ox 04/25/22 12:10 22 04/25/22 11:20 98.4 F 93 32 H 133/52 95 Intake and Output 04/25/22 04/25/22 04/25/22 06:59 14:59 22:59 Other: Weight 72.575 kg GENERAL EXAM: Alert, pleasant 71-year-old female patient, and 8 L high flow nasal cannula, fairly comfortable in no apparent distress. HEAD: Normocephalic. EYES: Normal reaction of pupils, equal size. NOSE: Clear with pink turbinates. THROAT: No erythema or exudates. NECK: No masses, no JVD. CHEST: No chest wall deformity. LUNGS: Equal air entry with bilateral end expiratory wheeze, crackles in the bases, diminished. CVS: S1 and S2 normal with no audible murmur, regular rhythm. ABDOMEN: No hepatosplenomegaly, normal bowel sounds, no guarding or rigidity. SPINE: No scoliosis or deformity SKIN: No rashes CENTRAL NERVOUS SYSTEM: No focal deficits, tone is normal in all 4 extremities. EXTREMITIES: There is no peripheral edema. No clubbing, no cyanosis. Peripheral pulses are intact. Results - Laboratory Findings CBC and BMP: 04/25/22 11:55 04/25/22 11:55 PT/INR, D-dimer PT 11.5 sec (9.0-12.0) 04/25/22 11:55 INR 1.1 (<1.2) 04/25/22 11:55 Abnormal lab findings: Abnormal Labs 04/25/22 04/25/22 11:55 11:55 WBC 11.1 H RBC 2.67 L Hgb 8.0 L Hct 26.7 L MCHC 29.9 L RDW 16.4 H Neutrophils # 9.8 H Lymphocytes # 0.6 L Sodium 135 L BUN 44 H Creatinine 1.83 H Glucose 142 H Calcium 8.3 L AST 11 L Alkaline Phosphatase 176 H Total Protein 5.5 L Albumin 2.7 L - Diagnostic Findings Chest x-ray: image reviewed Assessment and Plan Assessment: Acute on chronic hypoxemic respiratory failure secondary to suspected diastolic congestive heart failure as well as an acute exacerbation of chronic obstructive disease Acute exacerbation of chronic obstructive pulmonary disease Severe oxygen dependent chronic obstructive pulmonary disease Former heavy smoker however quit 3 years ago History of ventilatory dependent respiratory failure approximate 3 years ago History of diabetes mellitus Hyperlipidemia Hypertension Chronic back pain Cellulitis lower extremities History of follows Anxiety/depression Plan: The patient was seen and evaluated Chest x-ray, labs and medications reviewed Continue Symbicort, DuoNeb inhalations, IV Solu-Medrol Continue IV diuretics Titrate the FiO2 as tolerated We will continue to follow make further recommendations based on her clinical status I have personally seen and examined the patient, performed the documentation and the assessment and plan as written. Number of minutes spent on the visit: 20.
[2022-04-25] MEDS: methylPREDNISolone SOD SUCCI 125 MG/2 ML VIAL IV SCH (23:48)
[2022-04-25] MEDS: ARIPiprazole 5 MG TAB PO SCH (23:49)
[2022-04-25] MEDS: FUROSEMIDE 10 MG/ML 4 ML VIAL IV SCH (23:49)
[2022-04-25] MEDS: FERROUS SULFATE 325 MG TAB PO SCH (23:49)
[2022-04-25] MEDS: HEPARIN SODIUM,PORCINE/PF 5,000 UNIT/0.5 ML SYRINGE SQ SCH (23:49)
[2022-04-25] MEDS: traZODone HCL 100 MG TAB PO SCH (23:49)
[2022-04-26] MEDS: methylPREDNISolone SOD SUCCI 125 MG/2 ML VIAL IV SCH ×5 (00:19→23:53)
[2022-04-26] MEDS: LEVOTHYROXINE 100 MCG TAB PO SCH (07:02)
[2022-04-26] MEDS: IPRATROPIUM-ALBUTEROL 3 ML NEB INHALATION PRN ×3 (07:14→14:33)
[2022-04-26] MEDS: SYMBICORT 160-4.5 MCG INHALER INHALATION SCH ×2 (07:14→20:39)
[2022-04-26 07:15] LABS: Basophils % (A) 0 %; Eosinophils % (A) 0 %; HCT 28.1 % (34.0-46.0); HGB 7.8 gm/dL (11.4-16.0); Hypochromasia Marked; Lymphocytes # (A) 0.3 k/uL (1.0-4.8); Lymphocytes % (A) 4 %; MCH 28.2 pg (25.0-35.0); MCHC 27.7 g/dL (31.0-37.0); MCV 101.5 fL (80.0-100.0); Macrocytosis Slight; Mean Platelet Volume 7.6; Monocytes # (A) 0.2 k/uL (0-1.0); Monocytes % (A) 3 %; Neutrophils # (A) 6.2 k/uL (1.3-7.7); Neutrophils % (A) 92 %; Platelet Count 277 k/uL (150-450); RBC 2.77 m/uL (3.80-5.40); RDW 15.8 % (11.5-15.5); WBC 6.7 k/uL (3.8-10.6)
[2022-04-26 07:50] LABS: Glucose,Whole Blood 341 mg/dL (70-110)
[2022-04-26 08:09] LABS: Bilirubin, Delta 0.2 mg/dL (0.0-0.2); Bilirubin,Unconjugated 0.2 mg/dL (0.0-1.1); Calcium 8.5 mg/dL (8.4-10.2); Magnesium 1.8 mg/dL (1.6-2.3); Potassium 5.4 mmol/L (3.5-5.1); Total Bilirubin 0.4 mg/dL (0.2-1.3); Total Protein 5.9 g/dL (6.3-8.2)
[2022-04-26] MEDS: METOPROLOL SUCCINATE (ER) 25 MG TAB.ER.24H PO SCH (08:16)
[2022-04-26] MEDS: allopurinoL 100 MG TAB PO SCH (08:17)
[2022-04-26] MEDS: FUROSEMIDE 10 MG/ML 4 ML VIAL IV SCH ×2 (08:17→21:32)
[2022-04-26] MEDS: CITALOPRAM HYDROBROMIDE 20 MG TAB PO SCH (08:17)
[2022-04-26] MEDS: ATORVASTATIN 40 MG TAB PO SCH (08:17)
[2022-04-26] MEDS: INSULIN ASPART (NovoLOG) 100 UNIT/ML VIAL SQ SCH ×4 (08:20→21:32)
[2022-04-26] MEDS: HEPARIN SODIUM,PORCINE/PF 5,000 UNIT/0.5 ML SYRINGE SQ SCH ×2 (08:25→21:32)
--- NOTE | 2022-04-26 08:55 | XR ---
EXAM: XR Chest, 1 View CLINICAL HISTORY: ITS.REASON XR Reason: sob TECHNIQUE: Frontal view of the chest. COMPARISON: No relevant prior studies available. FINDINGS/IMPRESSION: Patchy perihilar opacities, concerning for vascular congestion/pulmonary edema. Small effusion. Cardiomegaly. Correlate for CHF. Calcified aorta. No pneumothorax.
[2022-04-26] MEDS ORDERED: FAMOTIDINE 20 MG/2 ML VIAL IV SCH (09:00)
[2022-04-26] MEDS ORDERED: predniSONE 20 MG TAB PO SCH (09:00)
--- NOTE | 2022-04-26 11:46 | P.PN ---
Subjective Progress Note Date: 04/26/22 This is a very pleasant 71-year-old female with a known history of hypertension, hyperlipidemia, osteoarthritis, COPD and basal skin carcinoma of the eyelid, chronic back pain and degenerative disc disease, anxiety/depression and previous history of smoking however quit 3 years ago. She is oxygen dependent on 4 L at home. She presents again to the emergency room with a two-day history of increasing shortness of breath, chest tightness and wheezing. Stating her O2 saturation was down to 75%. She does have a history of ventilatory dependent respiratory failure approximate 3 years ago. She follows with Dr. Cho in our office. She is maintained on DuoNeb inhalations, Symbicort, albuterol HFA. She was recently discharged from here for congestive heart failure. Today's chest x-ray shows cardiomegaly with increased interstitial markings and mild to moderate interstitial edema bilaterally redemonstrated no significant change compared to previous on 04/10/2022. She had been seen by cardiology last admission. White count 11.1. Hemoccult 8.0. Sodium 135. Potassium 4.8. BUN 44. Creatinine 1.83. Glucose 142. Troponin negative 1. She is currently on Lasix 40 mg IV every 12 hours, Symbicort, DuoNeb inhalations, IV Solu-Medrol. She is seen today in consultation in the emergency department. She is sitting up in the stretcher. Awake and alert in no acute distress. She is quite bronchus spastic and wheezy. She is dyspneic with conversation. Dyspneic with minimal exertion. Maintain O2 saturations in the 90s on 8 L high flow nasal cannula. Afebrile. Hemodynamically stable. The patient's Lasix #[id number] in follow-up in the emergency department. She is awake and alert in no acute distress. Breathing easier today compared to yesterday. She is still on 15 L high flow alternating with BiPAP 10/5 and 80% FiO2. She is in sinus rhythm. She is dyspneic with normal conversation. Dyspneic with minimal exertion. White count 6.7. Hemoglobin 7.8. Platelets 277. Lymphocytes 0.3. Sedimentation 5. Potassium 5.4. BUN 45. Creatinine 1.49. Glucose 294. AST 11. ALT 13. ProBNP 14,500. She is continued on Symbicort, DuoNeb inhalations, IV Solu-Medrol. Remains on IV diuretics. No accurate I&O recorded. Heparin for DVT prophylaxis. Objective - Vital Signs Vital signs: Vital Signs Temp 97.6 F 04/26/22 03:14 Pulse 70 04/26/22 11:36 Resp 22 04/26/22 08:27 BP 146/61 04/26/22 08:27 Pulse Ox 97 04/26/22 08:27 FiO2 80 04/25/22 23:01 Intake & Output 04/25/22 04/26/22 04/26/22 18:59 06:59 18:59 Weight 72.575 kg - Exam GENERAL EXAM: Alert, pleasant 71-year-old female patient, and 15 L high flow nasal cannula, fairly comfortable in no apparent distress. HEAD: Normocephalic. EYES: Normal reaction of pupils, equal size. NOSE: Clear with pink turbinates. THROAT: No erythema or exudates. NECK: No masses, no JVD. CHEST: No chest wall deformity. LUNGS: Equal air entry with bilateral end expiratory wheeze, crackles in the bases, diminished. CVS: S1 and S2 normal with no audible murmur, regular rhythm. ABDOMEN: No hepatosplenomegaly, normal bowel sounds, no guarding or rigidity. SPINE: No scoliosis or deformity SKIN: No rashes CENTRAL NERVOUS SYSTEM: No focal deficits, tone is normal in all 4 extremities. EXTREMITIES: There is no peripheral edema. No clubbing, no cyanosis. Peripheral pulses are intact. - Labs CBC & Chem 7: 04/26/22 06:57 04/26/22 06:57 Labs: Abnormal Lab Results - Last 24 Hours (Table) 04/25/22 04/25/22 04/26/22 Range/Units 11:55 11:55 06:57 WBC 11.1 H (3.8-10.6) k/uL RBC 2.67 L 2.77 L (3.80-5.40) m/uL Hgb 8.0 L 7.8 L (11.4-16.0) gm/dL Hct 26.7 L 28.1 L (34.0-46.0) % MCV 101.5 H (80.0-100.0) fL MCHC 29.9 L 27.7 L (31.0-37.0) g/dL RDW 16.4 H 15.8 H (11.5-15.5) % Neutrophils # 9.8 H (1.3-7.7) k/uL Lymphocytes # 0.6 L 0.3 L (1.0-4.8) k/uL Sodium 135 L (137-145) mmol/L Potassium (3.5-5.1) mmol/L BUN 44 H (7-17) mg/dL Creatinine 1.83 H (0.52-1.04) mg/dL Glucose 142 H (74-99) mg/dL POC Glucose (mg/dL) (70-110) mg/dL Calcium 8.3 L (8.4-10.2) mg/dL AST 11 L (14-36) U/L Alkaline Phosphatase 176 H (38-126) U/L Total Protein 5.5 L (6.3-8.2) g/dL Albumin 2.7 L (3.5-5.0) g/dL 04/26/22 04/26/22 Range/Units 06:57 07:48 WBC (3.8-10.6) k/uL RBC (3.80-5.40) m/uL Hgb (11.4-16.0) gm/dL Hct (34.0-46.0) % MCV (80.0-100.0) fL MCHC (31.0-37.0) g/dL RDW (11.5-15.5) % Neutrophils # (1.3-7.7) k/uL Lymphocytes # (1.0-4.8) k/uL Sodium 135 L (137-145) mmol/L Potassium 5.4 H (3.5-5.1) mmol/L BUN 45 H (7-17) mg/dL Creatinine 1.49 H (0.52-1.04) mg/dL Glucose 294 H (74-99) mg/dL POC Glucose (mg/dL) 341 H (70-110) mg/dL Calcium (8.4-10.2) mg/dL AST 11 L (14-36) U/L Alkaline Phosphatase 162 H (38-126) U/L Total Protein 5.9 L (6.3-8.2) g/dL Albumin 3.0 L (3.5-5.0) g/dL Assessment and Plan Assessment: Acute on chronic hypoxemic respiratory failure secondary to suspected diastolic congestive heart failure as well as an acute exacerbation of chronic obstructive disease Acute exacerbation of chronic obstructive pulmonary disease Severe oxygen dependent chronic obstructive pulmonary disease Former heavy smoker however quit 3 years ago History of ventilatory dependent respiratory failure approximate 3 years ago History of diabetes mellitus Hyperlipidemia Hypertension Chronic back pain Cellulitis lower extremities History of follows Anxiety/depression Plan: The patient was seen and evaluated Labs and medications reviewed Continue Symbicort, DuoNeb inhalations, IV Solu-Medrol Continue IV diuretics Titrate the FiO2 as tolerated We will continue to follow I have personally seen and examined the patient, performed the documentation and the assessment and plan as written. Number of minutes spent on the visit: 10.
--- NOTE | 2022-04-26 11:53 | P.PN ---
Subjective Patient is a 71-year-old female with a known history of hypertension, hyperlipidemia, osteoarthritis, COPD and basal skin carcinoma of the eyelid, c hronic back pain and degenerative disc disease, anxiety/depression and previous history of smoking quit about 3 years ago presents to ER with complaints of worsening shortness of breath for the past 2 days. This has been associated with more frequent cough and and phlegm, although her cough is chronic but with recent worsening. She denies chest pain but she is complaining of from back pain and bilateral leg pain. Also patient has been complaining of from her lateral leg wounds with dressing in place. Patient refused to take off the dressing to check him. She denies vomiting or diarrhea. No urinary complaints. No headache or dizziness. No weakness or numbness No alcohol or illicit drugs daughter at bedside Patient is tachypneic at 22, blood pressure is 133/52 She's hypoxic. At home she is on 4 L oxygen. Her oxygen saturation is 94%. Her oxygen requirement increased to 8 during the evening. No fever. Labs show leukocytosis of 11.1. Hemoglobin 8.0. Platelets normal. INR normal at 1.1. Creatinine went up to 1.8, baseline 1.0-1.1 EKG showing normal sinus rhythm at [address]-T changes Chest x-ray: Cardiomegaly with increased interstitial markings suggesting [id number] interstitial edema bilaterally redemonstration. No significant change from most recent x-ray. Correlate for CHF (the actual image did not open for technical reasons) She was admitted to the hospital on October, January and March of this year. This is the fourth admission for similar conditions 04/26/2022 Patient sitting up in bed, awake, and mild or normal respiratory distress. Patient reports improvement in her breathing pattern however her oxygen requirements is currently up to 15 L/m nonrebreather. Repeat chest x-ray this morning showing possible CHF. Monitor input output and electrolytes and creatinine which is improving down to 1.4. Hemoglobin stable at 7.8 She remains on IV Solu-Medrol 60 mg and Lasix 40 mg Objective - Vital Signs Vital signs: Vital Signs Temp 97.6 F 04/26/22 03:14 Pulse 76 04/26/22 08:27 Resp 22 04/26/22 08:27 BP 146/61 04/26/22 08:27 Pulse Ox 97 04/26/22 08:27 FiO2 80 04/25/22 23:01 Intake & Output 04/25/22 04/26/22 04/26/22 18:59 06:59 18:59 Weight 72.575 kg - Exam -GENERAL: The patient is alert and oriented x3, in acute small to moderate respiratory distress. Obese HEENT: Pupils are round and equally reacting to light. EOMI. No scleral icterus. No conjunctival pallor. Normocephalic, atraumatic. No pharyngeal erythema. No thyromegaly. CARDIOVASCULAR: S1 and S2 present. No murmurs, rubs, or gallops. -PULMONARY: Chest is clear to auscultation,Decreased air entry on both sides with minimal scattered wheezing ABDOMEN: Soft, nontender, nondistended, normoactive bowel sounds. No palpable organomegaly. MUSCULOSKELETAL: No joint swelling or deformity. -EXTREMITIES: No cyanosis, clubbing, 1+ bilateral pitting like edema NEUROLOGICAL: Gross neurological examination did not reveal any focal deficits. SKIN: No rashes. no petechiae. - Labs CBC & Chem 7: 04/26/22 06:57 04/26/22 06:57 Labs: Abnormal Lab Results - Last 24 Hours (Table) 04/25/22 04/25/22 04/26/22 Range/Units 11:55 11:55 06:57 WBC 11.1 H (3.8-10.6) k/uL RBC 2.67 L 2.77 L (3.80-5.40) m/uL Hgb 8.0 L 7.8 L (11.4-16.0) gm/dL Hct 26.7 L 28.1 L (34.0-46.0) % MCV 101.5 H (80.0-100.0) fL MCHC 29.9 L 27.7 L (31.0-37.0) g/dL RDW 16.4 H 15.8 H (11.5-15.5) % Neutrophils # 9.8 H (1.3-7.7) k/uL Lymphocytes # 0.6 L 0.3 L (1.0-4.8) k/uL Sodium 135 L (137-145) mmol/L Potassium (3.5-5.1) mmol/L BUN 44 H (7-17) mg/dL Creatinine 1.83 H (0.52-1.04) mg/dL Glucose 142 H (74-99) mg/dL POC Glucose (mg/dL) (70-110) mg/dL Calcium 8.3 L (8.4-10.2) mg/dL AST 11 L (14-36) U/L Alkaline Phosphatase 176 H (38-126) U/L Total Protein 5.5 L (6.3-8.2) g/dL Albumin 2.7 L (3.5-5.0) g/dL 04/26/22 04/26/22 Range/Units 06:57 07:48 WBC (3.8-10.6) k/uL RBC (3.80-5.40) m/uL Hgb (11.4-16.0) gm/dL Hct (34.0-46.0) % MCV (80.0-100.0) fL MCHC (31.0-37.0) g/dL RDW (11.5-15.5) % Neutrophils # (1.3-7.7) k/uL Lymphocytes # (1.0-4.8) k/uL Sodium 135 L (137-145) mmol/L Potassium 5.4 H (3.5-5.1) mmol/L BUN 45 H (7-17) mg/dL Creatinine 1.49 H (0.52-1.04) mg/dL Glucose 294 H (74-99) mg/dL POC Glucose (mg/dL) 341 H (70-110) mg/dL Calcium (8.4-10.2) mg/dL AST 11 L (14-36) U/L Alkaline Phosphatase 162 H (38-126) U/L Total Protein 5.9 L (6.3-8.2) g/dL Albumin 3.0 L (3.5-5.0) g/dL Assessment and Plan Assessment: Shortness of breath secondary to COPD and CHF.Pneumonia not entirely excluded although felt less likely Acute COPD exacerbation Acute on chronic hypoxic respiratory failure secondary to above Acut the chronic diastolic CHF Acute kidney injury likely prerenal CKD stage IIIB Chronic hypoxic respiratory failure on 3-4 L oxygen via nasal cannula. Morbid obesity with BMI 41.9 Deconditioning related to multiple hospitalization Hypertension Hypokalemia Diabetes type 2 [id number] Osteoarthritis Hypothyroidism History of cellulitis of legs Obesity with BMI of 32.3 Plan: This is a pleasant 71 years old female who presents with dyspnea mostly COPD and CHF Continue with Solu-Medrol Continue with antibiotic and check a pro-calcitonin Start Lasix 40 mg twice daily. Check proBNP Cardiology and pulmonary consult Oxygen as needed and breathing treatment Labs and medication were reviewed.. Continue same treatment. Continue with symptomatic treatment. Resume home medication. Monitor lytes and vitals. DVT and GI prophylaxis. Further recommendations as per clinical course of the patient DVT prophylaxis: Subcutaneous heparin GI Prophylaxis: Pepcid PT/OT: Pending Short-term Prognosis is guarded, long-term prognosis is also poor given her complex and multiple medical problems with recurrent hospitalization. If patient does not improve then we would recommend more palliative approach of the treatment
[2022-04-26 12:47] LABS: Glucose,Whole Blood 384 mg/dL (70-110)
[2022-04-26] MEDS: AZITHROMYCIN 500 MG in SODIUM CHLORIDE 0.9% 250 ML IVPB SCH (12:54)
[2022-04-26 16:23] LABS: Glucose,Whole Blood 416 mg/dL (70-110)
[2022-04-26 20:25] LABS: Glucose,Whole Blood 412 mg/dL (70-110)
--- NOTE | 2022-04-26 21:20 | CONS ---
CONSULTATION CHIEF COMPLAINT: Shortness of breath. HISTORY OF PRESENT ILLNESS: Ban is a 71-year-old lady with history of COPD, congestive heart failure, hypothyroidism who is admitted to hospital with shortness of breath. She states that she developed progressively worsening shortness of breath for 2 days prior to coming in. She was short of breath at rest and with very little activity. I have been consulted because of her underlying history of heart failure. At the time of my evaluation this morning, she still appears short of breath and has a Ventimask on. She complains of cough and some productive sputum. She is a smoker, which she quit about 3 years ago. She also has chronic back pain with degenerative joint disease. At home, she is on 4 L of O2 and her saturation is 94%. A chest x-ray on this admission revealed cardiomegaly with interstitial edema. EKG shows sinus rhythm with nonspecific ST-T wave changes. [place] [address] and the troponin is negative. Hemoglobin is low at 7.8. BUN and creatinine are elevated at 45 and 1.4. The patient's clinical presentation is consistent with acute exacerbation of chronic diastolic heart failure and COPD exacerbation. We will address both of them. She is on IV Lasix, nebulizers, beta blockers which we will continue. PAST MEDICAL HISTORY: Significant for qec-[id number] diabetes, COPD, hypertension, hypothyroidism and dyslipidemia. MEDICATIONS: Medications at home included, 1. Norvasc 10 daily. 2. Glucotrol. 3. Glucophage. 4. Trazodone. 5. Toprol-XL 25. 6. Losartan 50. 7. Lasix 40. 8. Lipitor. 9. Vitamin D. 10.Tylenol. 11.Abilify. ALLERGIES: Multiple drug allergies are charted and I reviewed them. REVIEW OF SYSTEMS: HEENT: Unremarkable. CARDIAC: As described above. RESPIRATORY: As described above. GI: Negative. GENITOURINARY: Negative. ALLERGY/IMMUNOLOGY: Negative. SKIN: Negative. MUSCULOSKELETAL: Significant for arthritis. PSYCHOSOCIAL: Negative. DERM: Negative. CONSTITUTIONAL: Above. ONCOLOGICAL: Negative. [employer] ARCHITECT: Negative. Rest of the system review is not relevant. PHYSICAL EXAMINATION: VITAL SIGNS: Afebrile. Vital signs are stable. GENERAL: Comfortable at rest. NECK: There is no jugular venous distention. CHEST: Reveals good air entry bilaterally with occasional rhonchi and crackles. HEART: Reveals first and second heart sounds. No systolic murmur at the apex. ABDOMEN: Soft. EXTREMITIES: Did not reveal any edema. Peripheral pulses are felt. LABS: As described above. ASSESSMENT: 1. Shortness of breath secondary to a combination of acute exacerbation of chronic diastolic heart failure and chronic obstructive pulmonary disease exacerbation. 2. Hypertension. 3. Chronic obstructive pulmonary disease. 4. Insulin-requiring diabetes. PLAN: The patient will be treated with diuretics, beta blockers, nebulizers, and adjust therapies as needed based on her response. We will obtain a 2D echo to assess her LV function. The patient had an echo in January that showed normal LV systolic function with moderate aortic stenosis and ylzmcagl-uv-brlynr pulmonary hypertension. MMODL / IJN: [id number] /
[2022-04-26] MEDS: traZODone HCL 100 MG TAB PO SCH (21:32)
[2022-04-26] MEDS: ARIPiprazole 5 MG TAB PO SCH (21:41)
[2022-04-27] MEDS: HYDROcodone/APAP 7.5-325MG 1 EACH TAB PO PRN ×2 (00:39→10:53)
[2022-04-27 06:02] LABS: Glucose,Whole Blood 402 mg/dL (70-110)
[2022-04-27] MEDS: LEVOTHYROXINE 100 MCG TAB PO SCH (06:31)
[2022-04-27] MEDS: methylPREDNISolone SOD SUCCI 125 MG/2 ML VIAL IV SCH ×4 (06:31→23:35)
[2022-04-27] MEDS: INSULIN ASPART (NovoLOG) 100 UNIT/ML VIAL SQ SCH ×4 (06:32→22:04)
[2022-04-27 07:25] LABS: Basophils % (A) 0 %; Eosinophils % (A) 0 %; HCT 26.1 % (34.0-46.0); HGB 7.4 gm/dL (11.4-16.0); Hypochromasia Marked; Lymphocytes # (A) 0.5 k/uL (1.0-4.8); Lymphocytes % (A) 5 %; MCH 28.9 pg (25.0-35.0); MCHC 28.5 g/dL (31.0-37.0); MCV 101.4 fL (80.0-100.0); Macrocytosis Slight; Mean Platelet Volume 7.4; Monocytes # (A) 0.3 k/uL (0-1.0); Monocytes % (A) 3 %; Neutrophils % (A) 91 %; Platelet Count 314 k/uL (150-450); RBC 2.57 m/uL (3.80-5.40); RDW 15.9 % (11.5-15.5); WBC 9.8 k/uL (3.8-10.6)
[2022-04-27 07:51] LABS: Calcium 8.8 mg/dL (8.4-10.2); Magnesium 1.6 mg/dL (1.6-2.3); Potassium 5.1 mmol/L (3.5-5.1)
[2022-04-27] MEDS: SYMBICORT 160-4.5 MCG INHALER INHALATION SCH ×2 (08:06→20:44)
[2022-04-27] MEDS: IPRATROPIUM-ALBUTEROL 3 ML NEB INHALATION PRN ×4 (08:06→20:42)
[2022-04-27] MEDS: FAMOTIDINE 20 MG/2 ML VIAL IV SCH (09:45)
[2022-04-27] MEDS: FUROSEMIDE 10 MG/ML 4 ML VIAL IV SCH ×2 (09:45→21:57)
[2022-04-27] MEDS: HEPARIN SODIUM,PORCINE/PF 5,000 UNIT/0.5 ML SYRINGE SQ SCH ×2 (09:45→21:58)
[2022-04-27] MEDS: CITALOPRAM HYDROBROMIDE 20 MG TAB PO SCH (09:46)
[2022-04-27] MEDS: METOPROLOL SUCCINATE (ER) 25 MG TAB.ER.24H PO SCH (09:46)
[2022-04-27] MEDS: ATORVASTATIN 40 MG TAB PO SCH (09:46)
[2022-04-27] MEDS: allopurinoL 100 MG TAB PO SCH (09:46)
--- NOTE | 2022-04-27 11:03 | P.PN ---
Subjective Progress Note Date: 04/27/22 HISTORY OF PRESENT ILLNESS: This is a 71-year-old female who is a patient of Dr. Oh. Patient presented to the hospital with worsening shortness of breath. Patient is being treated for COPD and CHF. Patient examined this morning at the bedside. Patient denies chest pain or pressure. She reports shortness of breath. She is currently on a BiPAP. She reports improving lower extremity edema though she states her edema in her thighs seems to be unchanged. She remains on IV Lasix. Patient's kidney function remained stable with a creatinine of 1.4 today. PHYSICAL EXAM: VITAL SIGNS: Reviewed. GENERAL: Well-developed in no acute distress. NECK: Supple. No JVD or thyromegaly LUNGS: Respirations even and unlabored. Lungs diminished to auscultation bilaterally. HEART: Regular rate and rhythm. S1 and S2 heard. Systolic murmur noted. EXTREMITIES: Normal range of motion. No clubbing or cyanosis. Peripheral pulses intact. 1-2+ bilateral lower extremity edema, worse towards thighs. ASSESSMENT: Shortness of breath Acute exacerbation of COPD Acute on chronic heart failure with preserved ejection fraction Hypertension Diabetes Moderate aortic stenosis PLAN: Continue current cardiac medications Continue IV Lasix: 40 mg every 12 hours Monitor kidney function Daily weights Accurate I&O Further recommendations pending patient's course Nurse practitioner note has been reviewed by physician. Signing provider agrees with the documented findings, assessment, and plan of care. Objective - Vital Signs Vital signs: Vital Signs Temp 98.4 F 04/27/22 03:46 Pulse 76 04/27/22 08:29 Resp 18 04/27/22 03:46 BP 149/65 04/27/22 03:46 Pulse Ox 93 L 04/27/22 03:46 FiO2 80 04/27/22 08:38 Intake & Output 04/26/22 04/27/22 04/27/22 18:59 06:59 18:59 Output Total 200 Balance -200 Output: Urine 200 Other: Voiding Method External Catheter External Catheter - Labs CBC & Chem 7: 04/27/22 06:22 04/27/22 06:22 Labs: Abnormal Lab Results - Last 24 Hours (Table) 04/26/22 04/26/22 04/26/22 Range/Units 06:57 12:45 16:21 RBC (3.80-5.40) m/uL Hgb (11.4-16.0) gm/dL Hct (34.0-46.0) % MCV (80.0-100.0) fL MCHC (31.0-37.0) g/dL RDW (11.5-15.5) % Neutrophils # (1.3-7.7) k/uL Lymphocytes # (1.0-4.8) k/uL Sodium (137-145) mmol/L BUN (7-17) mg/dL Creatinine (0.52-1.04) mg/dL Glucose (74-99) mg/dL POC Glucose (mg/dL) 384 H 416 H (70-110) mg/dL Procalcitonin 1.97 H (0.02-0.09) ng/mL 04/26/22 04/27/22 04/27/22 Range/Units 20:22 06:01 06:22 RBC (3.80-5.40) m/uL Hgb (11.4-16.0) gm/dL Hct (34.0-46.0) % MCV (80.0-100.0) fL MCHC (31.0-37.0) g/dL RDW (11.5-15.5) % Neutrophils # (1.3-7.7) k/uL Lymphocytes # (1.0-4.8) k/uL Sodium (137-145) mmol/L BUN (7-17) mg/dL Creatinine (0.52-1.04) mg/dL Glucose (74-99) mg/dL POC Glucose (mg/dL) 412 H 402 H (70-110) mg/dL Procalcitonin 1.45 H (0.02-0.09) ng/mL 04/27/22 04/27/22 Range/Units 06:22 06:22 RBC 2.57 L (3.80-5.40) m/uL Hgb 7.4 L (11.4-16.0) gm/dL Hct 26.1 L (34.0-46.0) % MCV 101.4 H (80.0-100.0) fL MCHC 28.5 L (31.0-37.0) g/dL RDW 15.9 H (11.5-15.5) % Neutrophils # 9.0 H (1.3-7.7) k/uL Lymphocytes # 0.5 L (1.0-4.8) k/uL Sodium 133 L (137-145) mmol/L BUN 46 H (7-17) mg/dL Creatinine 1.40 H (0.52-1.04) mg/dL Glucose 342 H (74-99) mg/dL POC Glucose (mg/dL) (70-110) mg/dL Procalcitonin (0.02-0.09) ng/mL
[2022-04-27 11:44] LABS: Glucose,Whole Blood 441 mg/dL (70-110)
--- NOTE | 2022-04-27 11:44 | P.CONS ---
History of Present Illness - Reason for Consult Consult date: 04/27/22 wound care - History of Present Illness This is a 71 year old known to the wound center who was recently discharges from wound care with a new ulceration to the left lower extremity medial ankle. She measures approximately 1.5 x 1.5 x 0.1 cm with skin breakdown noted, wound edges attached to the wound base. Granulation noted throughout the wound. Minimal to no granulation noted. Patient has history of COPD congestive heart failure diabetes and poor compliance. Review Of Systems: Constitutional: No fever, no chills, no night sweats. No weight change. No weakness, fatigue or lethargy. No daytime sleepiness. Integumentary:reports wounds, no lesions. No rash or pruritus. No unusual bruising. No change in hair or nails. Physical exam: General Appearance: Alert, cooperative, no distress, appears stated age. Skin: See HPI all other Skin color, texture, tugor normal, no rashes or lesions. Neurologic: Alert oriented x3 Assessment: 1. Non-pressure ulceration to the left ankle Limited to skin breakdown 2. Diabetes with skin ulceration 4. Chronic venous insufficiency with inflammation and ulcer of left lower extremity Plan: 1. Apply zinc barrier cream to the site daily and wrap with Tubigrip or Jaxson wrap. Thank you for the consultation any questions please contact the wound care center DNP note has been reviewed and discussed with Dr. Portillo and the impression and plan of care has been directed as dictated. 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 glaucoma, chronic back pain and degenerative disk disease in the lumbar spine , nephrolithiasis, history of cellulitis in the legs and history of falls. The patient is also a recently quit smoker. 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 RT KNEE ARTHROSCOPY. UNDERWENT PERCUTANEOUS NEPHROSTOLITHOTOMY, colostomy Past Anesthesia/Blood Transfusion Reactions: No Reported Reaction Past Psychological History: Anxiety, Depression Additional Psychological History / Comment(s): Pt resides with her spouse. She is mostly in a wheelchair. She has home oxygen, nebulizer and glucometer. and lives with adult son. 2 adult children. 2 dogs and 1 cat in the home, but denied alcohol use or recreational drug use. Does not work outside of the home. No experience. No travel historyNo travel historyNo travel historyNo travel historyNo travel history Smoking Status: Current every day smoker Past Alcohol Use History: None Reported Additional Past Alcohol Use History / Comment(s): Pt started smoking in 1968 and quit in 2019cats in the home. No service and no travel history.cats in the home. No service and no travel history.cats in the home. No service and no travel history. Past Drug Use History: None Reported - Past Family History Mother Family Medical History: COPD Additional Family Medical History / Comment(s): emphysema, heart valve problems, in her sleep. Brother(s) Family Medical History: Cancer Additional Family Medical History / Comment(s): from oral cancer Father Brother(s) Family Medical History: Cancer Additional Family Medical History / Comment(s): heart disease Medications and Allergies Home Medications Medication Instructions Recorded Confirmed Type ARIPiprazole [Abilify] 5 mg PO HS 02/07/18 04/25/22 History metFORMIN HCL [Glucophage] 1,000 mg PO BID-W/MEALS 02/07/18 04/25/22 History Atorvastatin [Lipitor] 40 mg PO DAILY #30 tab 09/10/18 04/25/22 Rx Levothyroxine Sodium [Synthroid] 200 mcg PO DAILY 09/03/19 04/25/22 History HYDROcodone/APAP 7.5-325MG [[place] 1 tab PO Q6H PRN #12 tab 03/27/20 04/25/22 Rx 7.5-325] traZODone HCL 100 mg PO HS PRN 05/15/20 04/25/22 History Albuterol Nebulized [Ventolin 2.5 mg INHALATION RT-Q6H PRN 10/19/21 04/25/22 History Nebulized] Albuterol Sulfate [Albuterol 2 puff PO RT-Q6H PRN 10/19/21 04/25/22 History Sulfate Hfa] Cholecalciferol [Vitamin D3 (25 25 mcg PO DAILY 10/19/21 04/25/22 History Mcg = 1000 Iu)] Ferrous Sulfate [Iron (65 MG 325 mg PO Q48H 10/19/21 04/25/22 History Elemental)] Metoprolol Succinate [Toprol XL] 25 mg PO DAILY 11/07/21 04/25/22 History Citalopram Hydrobromide [CeleXA] 40 mg PO DAILY 01/30/22 04/25/22 History Budesonide-Formot 160-4.5 Mcg 2 puff INHALATION RT-BID 02/13/22 04/25/22 History [Symbicort 160-4.5 Mcg Inhaler] Ipratropium-Albuterol Nebulize 3 ml INHALATION RT-QID 02/13/22 04/25/22 History [Duoneb 0.5 mg-3 mg/3 ml Soln] allopurinoL [Zyloprim] 100 mg PO DAILY 02/13/22 04/25/22 History Magnesium Oxide [Mag-Ox] 400 mg PO DAILY #30 tablet 02/16/22 04/25/22 Rx Methenamine Hippurate 1 gm PO BID 04/07/22 04/25/22 History Nystatin 100,000Unit/gm Cream 1 applic TOPICAL BID 04/07/22 04/25/22 History [Mycostatin Cream] Prochlorperazine Maleate 10 mg PO TID PRN 04/07/22 04/25/22 History Acetaminophen Tab [Tylenol] 650 mg PO Q6HR PRN tab 04/12/22 04/25/22 Rx Furosemide [Lasix] 40 mg PO DAILY 30 Days #30 tab 04/12/22 04/25/22 Rx Losartan [Cozaar] 50 mg PO DAILY 30 Days #30 tab 04/12/22 04/25/22 Rx amLODIPine [Norvasc] 10 mg PO DAILY 30 Days #30 tab 04/12/22 04/25/22 Rx glipiZIDE [Glucotrol] 5 mg PO AC-BRKFST 30 Days #30 tab 04/12/22 04/25/22 Rx Allergies Allergy/AdvReac Type Severity Reaction Status Date / Time adhesive Allergy Rash/Hives Verified 04/25/22 11:26 ciprofloxacin [From Cipro] Allergy Rash/Hives Verified 04/25/22 11:26 ciprofloxacin HCl Allergy Rash/Hives Verified 04/25/22 11:26 [From Cipro] latex Allergy Rash/Hives Verified 04/25/22 11:26 levofloxacin [From Levaquin] Allergy Rash/Hives Verified 04/25/22 11:26 nitrofurantoin Allergy Rash/Hives Verified 04/25/22 11:26 [From Macrobid] nitrofurantoin Allergy Rash/Hives Verified 04/25/22 11:26 macrocrystalline [From Macrobid] Penicillins Allergy Rash/Hives Verified 04/25/22 11:26 propoxyphene HCl Allergy Rash/Hives Verified 04/25/22 11:26 [From Darvon] propoxyphene napsylate Allergy Unknown Verified 04/25/22 11:26 [From Darvocet-N] sulfamethoxazole Allergy PIPPA Verified 04/25/22 11:26 [From Bactrim] trimethoprim [From Bactrim] Allergy PIPPA Verified 04/25/22 11:26 Physical Exam Vitals: Vital Signs Temp Pulse Pulse Resp BP BP Pulse Ox 04/27/22 11:20 76 04/27/22 10:58 76 04/27/22 08:38 04/27/22 08:29 76 04/27/22 08:06 72 04/27/22 05:08 04/27/22 03:46 98.4 F 69 18 149/65 93 L 04/27/22 00:00 97.6 F 71 20 149/67 98 04/26/22 20:39 94 L 04/26/22 20:00 98.3 F 73 20 150/64 96 04/26/22 16:27 98.1 F 68 24 125/83 93 L 04/26/22 16:13 68 22 04/26/22 14:44 70 04/26/22 14:34 68 04/26/22 13:56 63 20 101/75 96 04/26/22 11:36 70 FiO2 04/27/22 11:20 04/27/22 10:58 60 04/27/22 08:38 80 04/27/22 08:29 04/27/22 08:06 04/27/22 05:08 80 04/27/22 03:46 04/27/22 00:00 04/26/22 20:39 04/26/22 20:00 04/26/22 16:27 04/26/22 16:13 04/26/22 14:44 04/26/22 14:34 04/26/22 13:56 04/26/22 11:36 Intake and Output 04/26/22 04/27/22 04/27/22 22:59 06:59 14:59 Output Total 200 Balance -200 Output: Urine 200 Other: Voiding Method External Catheter External Catheter Results CBC & Chem 7: 04/27/22 06:22 04/27/22 06:22 Labs: Abnormal Lab Results - Last 24 Hours (Table) 04/26/22 04/26/22 04/26/22 Range/Units 06:57 12:45 16:21 RBC (3.80-5.40) m/uL Hgb (11.4-16.0) gm/dL Hct (34.0-46.0) % MCV (80.0-100.0) fL MCHC (31.0-37.0) g/dL RDW (11.5-15.5) % Neutrophils # (1.3-7.7) k/uL Lymphocytes # (1.0-4.8) k/uL Sodium (137-145) mmol/L BUN (7-17) mg/dL Creatinine (0.52-1.04) mg/dL Glucose (74-99) mg/dL POC Glucose (mg/dL) 384 H 416 H (70-110) mg/dL Procalcitonin 1.97 H (0.02-0.09) ng/mL 04/26/22 04/27/22 04/27/22 Range/Units 20:22 06:01 06:22 RBC (3.80-5.40) m/uL Hgb (11.4-16.0) gm/dL Hct (34.0-46.0) % MCV (80.0-100.0) fL MCHC (31.0-37.0) g/dL RDW (11.5-15.5) % Neutrophils # (1.3-7.7) k/uL Lymphocytes # (1.0-4.8) k/uL Sodium (137-145) mmol/L BUN (7-17) mg/dL Creatinine (0.52-1.04) mg/dL Glucose (74-99) mg/dL POC Glucose (mg/dL) 412 H 402 H (70-110) mg/dL Procalcitonin 1.45 H (0.02-0.09) ng/mL 04/27/22 04/27/22 Range/Units 06:22 06:22 RBC 2.57 L (3.80-5.40) m/uL Hgb 7.4 L (11.4-16.0) gm/dL Hct 26.1 L (34.0-46.0) % MCV 101.4 H (80.0-100.0) fL MCHC 28.5 L (31.0-37.0) g/dL RDW 15.9 H (11.5-15.5) % Neutrophils # 9.0 H (1.3-7.7) k/uL Lymphocytes # 0.5 L (1.0-4.8) k/uL Sodium 133 L (137-145) mmol/L BUN 46 H (7-17) mg/dL Creatinine 1.40 H (0.52-1.04) mg/dL Glucose 342 H (74-99) mg/dL POC Glucose (mg/dL) (70-110) mg/dL Procalcitonin (0.02-0.09) ng/mL Assessment and Plan (1) Non-pressure chronic ulcer of left ankle limited to breakdown of skin Current Visit: Yes Status: Acute Code(s): L97.321 - NON-PRS CHRONIC ULCER OF LEFT ANKLE LIMITED TO BRKDWN SKIN SNOMED Code(s): 42514038175234638 (2) Chronic venous hypertension (idiopathic) with ulcer of left lower extremity Current Visit: No Status: Acute Code(s): I87.312 - CHRONIC VENOUS HYPERTENSION W ULCER OF L LOW EXTREM; L97.929 - NON-PRS CHRONIC ULC UNSP PRT OF L LOW LEG W UNSP SEVERITY SNOMED Code(s): 280790804932073 (3) Diabetic ulcer of left lower leg associated with diabetes mellitus due to underlying condition, with fat layer exposed Current Visit: No Status: Acute Code(s): E08.622 - DIABETES DUE TO UNDERLYING CONDITION W OTH SKIN ULCER; L97.922 - NON-PRS CHR ULC UNSP PRT OF L LOW LEG W FAT LAYER EXPOSED SNOMED Code(s): 810637964
[2022-04-27] MEDS: AZITHROMYCIN 500 MG in SODIUM CHLORIDE 0.9% 250 ML IVPB SCH (12:45)
--- NOTE | 2022-04-27 13:42 | P.PN ---
Subjective Progress Note Date: 04/27/22 This is a very pleasant 71-year-old female with a known history of hypertension, hyperlipidemia, osteoarthritis, COPD and basal skin carcinoma of the eyelid, chronic back pain and degenerative disc disease, anxiety/depression and previous history of smoking however quit 3 years ago. She is oxygen dependent on 4 L at home. She presents again to the emergency room with a two-day history of increasing shortness of breath, chest tightness and wheezing. Stating her O2 saturation was down to 75%. She does have a history of ventilatory dependent respiratory failure approximate 3 years ago. She follows with Dr. Cho in our office. She is maintained on DuoNeb inhalations, Symbicort, albuterol HFA. She was recently discharged from here for congestive heart failure. Today's chest x-ray shows cardiomegaly with increased interstitial markings and mild to moderate interstitial edema bilaterally redemonstrated no significant change compared to previous on 04/10/2022. She had been seen by cardiology last admission. White count 11.1. Hemoccult 8.0. Sodium 135. Potassium 4.8. BUN 44. Creatinine 1.83. Glucose 142. Troponin negative 1. She is currently on Lasix 40 mg IV every 12 hours, Symbicort, DuoNeb inhalations, IV Solu-Medrol. She is seen today in consultation in the emergency department. She is sitting up in the stretcher. Awake and alert in no acute distress. She is quite bronchus spastic and wheezy. She is dyspneic with conversation. Dyspneic with minimal exertion. Maintain O2 saturations in the 90s on 8 L high flow nasal cannula. Afebrile. Hemodynamically stable. The patient's Lasix #7 2021 in follow-up in the emergency department. She is awake and alert in no acute distress. Breathing easier today compared to yesterday. She is still on 15 L high flow alternating with BiPAP 10/5 and 80% FiO2. She is in sinus rhythm. She is dyspneic with normal conversation. Dyspneic with minimal exertion. White count 6.7. Hemoglobin 7.8. Platelets 277. Lymphocytes 0.3. Sedimentation 5. Potassium 5.4. BUN 45. Creatinine 1.49. Glucose 294. AST 11. ALT 13. ProBNP 14,500. She is continued on Symbicort, DuoNeb inhalations, IV Solu-Medrol. Remains on IV diuretics. No accurate I&O recorded. Heparin for DVT prophylaxis. The patient is seen today 04/27/2022 follow-up on the selective care unit. She is currently sitting up in bed. Awake and alert. She is still dyspneic with conversation. Dyspneic with minimal exertion. She is currently on IPAP 10/5 and 70% FiO2. She was on 15 L high flow nasal cannula for approximate 10 minutes and dropped in the mid 80s and oxygen saturation. She was short of breath. She is continued on Symbicort, DuoNeb inhalations, IV Solu-Medrol. Empiric antibiotics in the form of azithromycin. Heparin for DVT prophylaxis. Remains on IV diuretics Lasix 40 mg every 12 hours. White count 9.8. Hemoglobin 7.4. Platelets 314. Sodium 133. Potassium 5.1. Chloride 98. Bicarb 25. BUN 46. Creatinine 1.40. Pro calcitonin 1.45. Objective - Vital Signs Vital signs: Vital Signs Temp 98.4 F 04/27/22 03:46 Pulse 76 04/27/22 11:20 Resp 18 04/27/22 03:46 BP 149/65 04/27/22 03:46 Pulse Ox 93 L 04/27/22 03:46 FiO2 60 04/27/22 10:58 Intake & Output 04/26/22 04/27/22 04/27/22 18:59 06:59 18:59 Output Total 200 Balance -200 Output: Urine 200 Other: Voiding Method External Catheter External Catheter - Exam GENERAL EXAM: Alert, pleasant 71-year-old female patient, requiring BiPAP 10/5 and 70% FiO2, fairly comfortable in no apparent distress. HEAD: Normocephalic. EYES: Normal reaction of pupils, equal size. NOSE: Clear with pink turbinates. THROAT: No erythema or exudates. NECK: No masses, no JVD. CHEST: No chest wall deformity. LUNGS: Equal air entry with bilateral end expiratory wheeze, crackles in the bases, diminished. CVS: S1 and S2 normal with no audible murmur, regular rhythm. ABDOMEN: No hepatosplenomegaly, normal bowel sounds, no guarding or rigidity. SPINE: No scoliosis or deformity SKIN: No rashes CENTRAL NERVOUS SYSTEM: No focal deficits, tone is normal in all 4 extremities. EXTREMITIES: There is no peripheral edema. No clubbing, no cyanosis. Peripheral pulses are intact. - Labs CBC & Chem 7: 04/27/22 06:22 04/27/22 06:22 Labs: Abnormal Lab Results - Last 24 Hours (Table) 04/26/22 04/26/22 04/26/22 Range/Units 06:57 16:21 20:22 RBC (3.80-5.40) m/uL Hgb (11.4-16.0) gm/dL Hct (34.0-46.0) % MCV (80.0-100.0) fL MCHC (31.0-37.0) g/dL RDW (11.5-15.5) % Neutrophils # (1.3-7.7) k/uL Lymphocytes # (1.0-4.8) k/uL Sodium (137-145) mmol/L BUN (7-17) mg/dL Creatinine (0.52-1.04) mg/dL Glucose (74-99) mg/dL POC Glucose (mg/dL) 416 H 412 H (70-110) mg/dL Procalcitonin 1.97 H (0.02-0.09) ng/mL 04/27/22 04/27/22 04/27/22 Range/Units 06:01 06:22 06:22 RBC 2.57 L (3.80-5.40) m/uL Hgb 7.4 L (11.4-16.0) gm/dL Hct 26.1 L (34.0-46.0) % MCV 101.4 H (80.0-100.0) fL MCHC 28.5 L (31.0-37.0) g/dL RDW 15.9 H (11.5-15.5) % Neutrophils # 9.0 H (1.3-7.7) k/uL Lymphocytes # 0.5 L (1.0-4.8) k/uL Sodium (137-145) mmol/L BUN (7-17) mg/dL Creatinine (0.52-1.04) mg/dL Glucose (74-99) mg/dL POC Glucose (mg/dL) 402 H (70-110) mg/dL Procalcitonin 1.45 H (0.02-0.09) ng/mL 04/27/22 04/27/22 Range/Units 06:22 11:41 RBC (3.80-5.40) m/uL Hgb (11.4-16.0) gm/dL Hct (34.0-46.0) % MCV (80.0-100.0) fL MCHC (31.0-37.0) g/dL RDW (11.5-15.5) % Neutrophils # (1.3-7.7) k/uL Lymphocytes # (1.0-4.8) k/uL Sodium 133 L (137-145) mmol/L BUN 46 H (7-17) mg/dL Creatinine 1.40 H (0.52-1.04) mg/dL Glucose 342 H (74-99) mg/dL POC Glucose (mg/dL) 441 H (70-110) mg/dL Procalcitonin (0.02-0.09) ng/mL Assessment and Plan Assessment: Acute on chronic hypoxemic respiratory failure secondary to suspected diastolic congestive heart failure as well as an acute exacerbation of chronic obstructive disease Acute exacerbation of chronic obstructive pulmonary disease Severe oxygen dependent chronic obstructive pulmonary disease Former heavy smoker however quit 3 years ago History of ventilatory dependent respiratory failure approximate 3 years ago History of diabetes mellitus Hyperlipidemia Hypertension Chronic back pain Cellulitis lower extremities History of follows Anxiety/depression Plan: The patient was seen and evaluated Labs and medications reviewed Continue Symbicort, DuoNeb inhalations, IV Solu-Medrol Continue IV diuretics Increase BiPAP to 12/5 Titrate the FiO2 as tolerated Follow-up chest x-ray in the a.m. We will continue to follow I have personally seen and examined the patient, performed the documentation and the assessment and plan as written. Number of minutes spent on the visit: 10.
[2022-04-27 16:49] LABS: Glucose,Whole Blood 401 mg/dL (70-110)
--- NOTE | 2022-04-27 19:12 | P.PN ---
Subjective Patient is a 71-year-old female with a known history of hypertension, hyperlipidemia, osteoarthritis, COPD and basal skin carcinoma of the eyelid, c hronic back pain and degenerative disc disease, anxiety/depression and previous history of smoking quit about 3 years ago presents to ER with complaints of worsening shortness of breath for the past 2 days. This has been associated with more frequent cough and and phlegm, although her cough is chronic but with recent worsening. She denies chest pain but she is complaining of from back pain and bilateral leg pain. Also patient has been complaining of from her lateral leg wounds with dressing in place. Patient refused to take off the dressing to check him. She denies vomiting or diarrhea. No urinary complaints. No headache or dizziness. No weakness or numbness No alcohol or illicit drugs daughter at bedside Patient is tachypneic at 22, blood pressure is 133/52 She's hypoxic. At home she is on 4 L oxygen. Her oxygen saturation is 94%. Her oxygen requirement increased to 8 during the evening. No fever. Labs show leukocytosis of 11.1. Hemoglobin 8.0. Platelets normal. INR normal at 1.1. Creatinine went up to 1.8, baseline 1.0-1.1 EKG showing normal sinus rhythm at [address]-T changes Chest x-ray: Cardiomegaly with increased interstitial markings suggesting [id number] interstitial edema bilaterally redemonstration. No significant change from most recent x-ray. Correlate for CHF (the actual image did not open for technical reasons) She was admitted to the hospital on October, January and March of this year. This is the fourth admission for similar conditions 04/26/2022 Patient sitting up in bed, awake, and mild or normal respiratory distress. Patient reports improvement in her breathing pattern however her oxygen requirements is currently up to 15 L/m nonrebreather. Repeat chest x-ray this morning showing possible CHF. Monitor input output and electrolytes and creatinine which is improving down to 1.4. Hemoglobin stable at 7.8 She remains on IV Solu-Medrol 60 mg and Lasix 40 mg 04/27/2022 Patient today condition is worse and she is dependent. November calcitonin is elevated. We will ask ceftriaxone 2 g. A ALLERGIC to penicillin which limits antibiotic choice. Continue also Zithromax. Continue with Lasix and Solu-Medrol Glucose is uncontrolled. Patient cannot tolerate diet because on BiPAP. Start insulin drip per protocol Collect sputum culture Discussed with bed side staff Objective - Vital Signs Vital signs: Vital Signs Temp 98.4 F 04/27/22 03:46 Pulse 76 04/27/22 11:20 Resp 18 04/27/22 03:46 BP 149/65 04/27/22 03:46 Pulse Ox 93 L 04/27/22 03:46 FiO2 60 04/27/22 10:58 Intake & Output 04/26/22 04/27/22 04/27/22 18:59 06:59 18:59 Output Total 200 Balance -200 Output: Urine 200 Other: Voiding Method External Catheter External Catheter - Exam --GENERAL: The patient is alert and awake looks tired and in respiratory distress requiring BiPAP, . Obese HEENT: Pupils are round and equally reacting to light. EOMI. No scleral icterus. No conjunctival pallor. Normocephalic, atraumatic. No pharyngeal erythema. No thyromegaly. CARDIOVASCULAR: S1 and S2 present. No murmurs, rubs, or gallops. -PULMONARY: Chest is clear to auscultation,Decreased air entry on both sides with minimal scattered wheezing. Bilateral crepitation ABDOMEN: Soft, nontender, nondistended, normoactive bowel sounds. No palpable organomegaly. MUSCULOSKELETAL: No joint swelling or deformity. -EXTREMITIES: No cyanosis, clubbing, 1+ bilateral pitting like edema NEUROLOGICAL: Gross neurological examination did not reveal any focal deficits. SKIN: No rashes. no petechiae. - Labs CBC & Chem 7: 04/27/22 06:22 04/27/22 06:22 Labs: Abnormal Lab Results - Last 24 Hours (Table) 04/26/22 04/26/22 04/26/22 Range/Units 06:57 16:21 20:22 RBC (3.80-5.40) m/uL Hgb (11.4-16.0) gm/dL Hct (34.0-46.0) % MCV (80.0-100.0) fL MCHC (31.0-37.0) g/dL RDW (11.5-15.5) % Neutrophils # (1.3-7.7) k/uL Lymphocytes # (1.0-4.8) k/uL Sodium (137-145) mmol/L BUN (7-17) mg/dL Creatinine (0.52-1.04) mg/dL Glucose (74-99) mg/dL POC Glucose (mg/dL) 416 H 412 H (70-110) mg/dL Procalcitonin 1.97 H (0.02-0.09) ng/mL 04/27/22 04/27/22 04/27/22 Range/Units 06:01 06:22 06:22 RBC 2.57 L (3.80-5.40) m/uL Hgb 7.4 L (11.4-16.0) gm/dL Hct 26.1 L (34.0-46.0) % MCV 101.4 H (80.0-100.0) fL MCHC 28.5 L (31.0-37.0) g/dL RDW 15.9 H (11.5-15.5) % Neutrophils # 9.0 H (1.3-7.7) k/uL Lymphocytes # 0.5 L (1.0-4.8) k/uL Sodium (137-145) mmol/L BUN (7-17) mg/dL Creatinine (0.52-1.04) mg/dL Glucose (74-99) mg/dL POC Glucose (mg/dL) 402 H (70-110) mg/dL Procalcitonin 1.45 H (0.02-0.09) ng/mL 04/27/22 04/27/22 Range/Units 06:22 11:41 RBC (3.80-5.40) m/uL Hgb (11.4-16.0) gm/dL Hct (34.0-46.0) % MCV (80.0-100.0) fL MCHC (31.0-37.0) g/dL RDW (11.5-15.5) % Neutrophils # (1.3-7.7) k/uL Lymphocytes # (1.0-4.8) k/uL Sodium 133 L (137-145) mmol/L BUN 46 H (7-17) mg/dL Creatinine 1.40 H (0.52-1.04) mg/dL Glucose 342 H (74-99) mg/dL POC Glucose (mg/dL) 441 H (70-110) mg/dL Procalcitonin (0.02-0.09) ng/mL Assessment and Plan Assessment: Shortness of breath secondary to COPD and CHF.Pneumonia not entirely excluded although felt less likely Acute COPD exacerbation possible acute bilateral pneumonia. Possible community acquired Acute on chronic hypoxic respiratory failure secondary to above Acut the chronic diastolic CHF Acute kidney injury likely prerenal CKD stage IIIB Chronic hypoxic respiratory failure on 3-4 L oxygen via nasal cannula. Morbid obesity with BMI 41.9 Deconditioning related to multiple hospitalization Hypertension Hypokalemia Diabetes type 2 [id number] Osteoarthritis Hypothyroidism History of cellulitis of legs Obesity with BMI of 32.3 Plan: This is a pleasant 71 years old female who presents with dyspnea mostly COPD and CHF Continue with Solu-Medrol Continue with Zithromax and ceftriaxone Start Lasix 40 mg twice daily. Cardiology and pulmonary consult Oxygen as needed and breathing treatment Labs and medication were reviewed.. Continue same treatment. Continue with symptomatic treatment. Resume home medication. Monitor lytes and vitals. DVT and GI prophylaxis. Further recommendations as per clinical course of the patient DVT prophylaxis: Subcutaneous heparin GI Prophylaxis: Pepcid PT/OT: Pending Short-term Prognosis is guarded, long-term prognosis is also poor given her complex and multiple medical problems with recurrent hospitalization. If patient does not improve then we would recommend more palliative approach of the treatment
[2022-04-27] MEDS ORDERED: DEXTROSE 50% SYRINGE 50 ML IVP PRN ×2 (19:24)
[2022-04-27 20:16] LABS: Glucose,Whole Blood 324 mg/dL (70-110)
[2022-04-27] MEDS: INSULIN REGULAR 100 UNIT in SODIUM CHLORIDE 0.9% 100 ML IV SCH (20:20)
--- NOTE | 2022-04-27 21:25 | US ---
EXAMINATION TYPE: US venous doppler duplex LE DATE OF EXAM: 04/25/2022 9:25 PM COMPARISON: Prior bilateral ultrasound report May 16, 2020 CLINICAL HISTORY: leg pain. Bilateral leg pain. Swelling. No hx DVT SIDE PERFORMED: Bilateral TECHNIQUE: The lower extremity deep venous system is examined utilizing real time linear array sonog chacorta with graded compression, doppler sonography and color-flow sonography. VESSELS IMAGED: Common Femoral Vein Deep Femoral Vein Greater Saphenous Vein * Femoral Vein Popliteal Vein Small Saphenous Vein * Proximal Calf Veins (* superficial vessels) Patient unable to tolerate compressions, compressions deferred Right Leg: Negative for DVT Left Leg: Negative for DVT Grayscale, color doppler, spectral doppler imaging performed of the deep veins of the bilateral lower extremities. There is normal flow and vascular waveforms. IMPRESSION: Suboptimal study without acute DVT identified in either lower extremity.
[2022-04-27 21:33] LABS: Glucose,Whole Blood 316 mg/dL (70-110)
[2022-04-27] MEDS: ARIPiprazole 5 MG TAB PO SCH (21:58)
[2022-04-27] MEDS: FERROUS SULFATE 325 MG TAB PO SCH (21:58)
[2022-04-27] MEDS: traZODone HCL 100 MG TAB PO SCH (21:58)
[2022-04-27 22:43] LABS: Glucose,Whole Blood 330 mg/dL (70-110)
[2022-04-27 23:41] LABS: Glucose,Whole Blood 265 mg/dL (70-110)
[2022-04-28 00:31] LABS: Glucose,Whole Blood 198 mg/dL (70-110)
[2022-04-28 01:32] LABS: Glucose,Whole Blood 137 mg/dL (70-110)
[2022-04-28 02:43] LABS: Glucose,Whole Blood 137 mg/dL (70-110)
[2022-04-28 03:28] LABS: Glucose,Whole Blood 165 mg/dL (70-110)
[2022-04-28] MEDS: HYDROcodone/APAP 7.5-325MG 1 EACH TAB PO PRN ×3 (03:31→20:57)
[2022-04-28 05:31] LABS: Glucose,Whole Blood 221 mg/dL (70-110)
[2022-04-28] MEDS: LEVOTHYROXINE 100 MCG TAB PO SCH (06:26)
[2022-04-28] MEDS: methylPREDNISolone SOD SUCCI 125 MG/2 ML VIAL IV SCH ×4 (06:26→23:14)
[2022-04-28 06:42] LABS: Glucose,Whole Blood 186 mg/dL (70-110)
--- NOTE | 2022-04-28 07:10 | XR ---
EXAMINATION TYPE: XR chest 1V portable DATE OF EXAM: 04/28/2022 HISTORY: Shortness of breath. COMPARISON: 04/26/2022 TECHNIQUE: Single view of the chest is submitted. FINDINGS: Demonstrated are scattered senescent parenchymal change. There is continued cardiomegaly with pulmonary venous congestion and patchy basilar infiltrates and/o r atelectasis. Overall no change is appreciated. Hilar and mediastinal structures are within normal limits. Degenerative changes are seen of the dorsal spine. IMPRESSION: 1. There is continued cardiomegaly with pulmonary venous congestion and patchy basilar infiltrates a nd/or atelectasis. Overall no change is appreciated.
[2022-04-28 07:52] LABS: Glucose,Whole Blood 166 mg/dL (70-110)
[2022-04-28] MEDS: SYMBICORT 160-4.5 MCG INHALER INHALATION SCH ×2 (07:53→20:25)
[2022-04-28] MEDS: IPRATROPIUM-ALBUTEROL 3 ML NEB INHALATION PRN ×4 (07:53→20:24)
[2022-04-28 07:55] LABS: Basophils % (A) 0 %; Eosinophils % (A) 0 %; HGB 7.9 gm/dL (11.4-16.0); Hypochromasia Marked; Lymphocytes # (A) 0.5 k/uL (1.0-4.8); Lymphocytes % (A) 5 %; MCH 28.7 pg (25.0-35.0); MCHC 29.3 g/dL (31.0-37.0); MCV 97.9 fL (80.0-100.0); Mean Platelet Volume 7.4; Monocytes # (A) 0.3 k/uL (0-1.0); Monocytes % (A) 2 %; Neutrophils # (A) 9.3 k/uL (1.3-7.7); Neutrophils % (A) 91 %; Platelet Count 310 k/uL (150-450); RBC 2.76 m/uL (3.80-5.40); RDW 15.4 % (11.5-15.5); WBC 10.1 k/uL (3.8-10.6)
[2022-04-28 08:13] LABS: Magnesium 1.4 mg/dL (1.6-2.3); Potassium 3.8 mmol/L (3.5-5.1)
[2022-04-28] MEDS: METOPROLOL SUCCINATE (ER) 25 MG TAB.ER.24H PO SCH (09:14)
[2022-04-28] MEDS: CITALOPRAM HYDROBROMIDE 20 MG TAB PO SCH (09:14)
[2022-04-28] MEDS: FUROSEMIDE 10 MG/ML 4 ML VIAL IV SCH ×2 (09:15→20:58)
[2022-04-28] MEDS: ATORVASTATIN 40 MG TAB PO SCH (09:15)
[2022-04-28] MEDS: FAMOTIDINE 20 MG/2 ML VIAL IV SCH (09:15)
[2022-04-28] MEDS: HEPARIN SODIUM,PORCINE/PF 5,000 UNIT/0.5 ML SYRINGE SQ SCH ×2 (09:15→20:57)
[2022-04-28] MEDS: allopurinoL 100 MG TAB PO SCH (09:15)
[2022-04-28] MEDS ORDERED: POTASSIUM CHLORIDE ER 20 MEQ TAB.ER PO STA (09:20)
[2022-04-28 09:41] LABS: Glucose,Whole Blood 189 mg/dL (70-110)
[2022-04-28] MEDS: amLODIPine 10 MG TAB PO SCH (10:05)
[2022-04-28] MEDS: INSULIN ASPART (NovoLOG) 100 UNIT/ML VIAL SQ SCH ×4 (10:07→20:58)
[2022-04-28 10:41] LABS: Glucose,Whole Blood 274 mg/dL (70-110)
[2022-04-28 11:42] LABS: Glucose,Whole Blood 282 mg/dL (70-110)
--- NOTE | 2022-04-28 11:44 | P.PN ---
Subjective Progress Note Date: 04/28/22 HISTORY OF PRESENT ILLNESS: This is a 71-year-old female who is a patient of Dr. Oh. Patient presented to the hospital with worsening shortness of breath. Patient is being treated for COPD and CHF. Patient examined this morning at the bedside. Patient denies chest pain or pressure. She reports shortness of breath. She is currently on a BiPAP. She reports improving lower extremity edema though she states her edema in her thighs seems to be unchanged. She remains on IV Lasix. Patient's kidney function remained stable with a creatinine of 1.4 today. 04/28/2022 Patient examined this morning at the bedside. Patient denies chest pain or pressure. SOB improving. Continues to have LE edema, more in her thighs. She remains on IV lasix. Creatinine stable at 1.3. Blood pressure elevated in the 160s. PHYSICAL EXAM: VITAL SIGNS: Reviewed. GENERAL: Well-developed in no acute distress. NECK: Supple. No JVD or thyromegaly LUNGS: Respirations even and unlabored. Lungs diminished to auscultation bilaterally. HEART: Regular rate and rhythm. S1 and S2 heard. Systolic murmur noted. EXTREMITIES: Normal range of motion. No clubbing or cyanosis. Peripheral pulses intact. 1-2+ bilateral lower extremity edema, worse towards thighs. ASSESSMENT: Shortness of breath Acute exacerbation of COPD Acute on chronic heart failure with preserved ejection fraction Acute kidney injury Hypertension Diabetes Moderate aortic stenosis PLAN: Continue current cardiac medications Continue IV Lasix: 40 mg every 12 hours Monitor kidney function Daily weights Accurate I&O Resume home dose of Norvasc for optimal blood pressure control Resume losartan when JAVON resolves Supplement magnesium and potassium Further recommendations pending patient's course Nurse practitioner note has been reviewed by physician. Signing provider agrees with the documented findings, assessment, and plan of care. Objective - Vital Signs Vital signs: Vital Signs Temp 97.9 F 04/28/22 08:00 Pulse 60 04/28/22 08:12 Resp 21 04/28/22 08:00 BP 166/72 04/28/22 08:00 Pulse Ox 96 04/28/22 08:00 FiO2 70 04/28/22 07:53 Intake & Output 04/27/22 04/28/22 04/28/22 18:59 06:59 18:59 Intake Total 38.380 22.26 Output Total 1200 750 Balance -1200 38.380 -727.74 Intake: Intake, IV Titration 38380 22. Amount Insulin Regular 100 unit 38.. In Sodium Chloride 0.9% 100 ml @ Titrate IV .Q0M [facility] Rx#:[id number] Output: Urine 1200 750 Other: Voiding Method External Catheter External Catheter External Catheter - Labs CBC & Chem 7: 04/28/22 06:41 04/28/22 06:41 Labs: Abnormal Lab Results - Last 24 Hours (Table) 04/27/22 04/27/22 04/27/22 Range/Units 06:22 11:41 16:38 RBC (3.80-5.40) m/uL Hgb (11.4-16.0) gm/dL Hct (34.0-46.0) % MCHC (31.0-37.0) g/dL Neutrophils # (1.3-7.7) k/uL Lymphocytes # (1.0-4.8) k/uL Sodium (137-145) mmol/L Chloride (98-107) mmol/L BUN (7-17) mg/dL Creatinine (0.52-1.04) mg/dL Glucose (74-99) mg/dL POC Glucose (mg/dL) 441 H 401 H (70-110) mg/dL Hemoglobin A1c 6.3 H (0.0-6.0) % Magnesium (1.6-2.3) mg/dL 04/27/22 04/27/22 04/27/22 Range/Units 20:14 21:32 22:31 RBC (3.80-5.40) m/uL Hgb (11.4-16.0) gm/dL Hct (34.0-46.0) % MCHC (31.0-37.0) g/dL Neutrophils # (1.3-7.7) k/uL Lymphocytes # (1.0-4.8) k/uL Sodium (137-145) mmol/L Chloride (98-107) mmol/L BUN (7-17) mg/dL Creatinine (0.52-1.04) mg/dL Glucose (74-99) mg/dL POC Glucose (mg/dL) 324 H 316 H 330 H (70-110) mg/dL Hemoglobin A1c (0.0-6.0) % Magnesium (1.6-2.3) mg/dL 04/27/22 04/28/22 04/28/22 Range/Units 23:33 00:30 01:31 RBC (3.80-5.40) m/uL Hgb (11.4-16.0) gm/dL Hct (34.0-46.0) % MCHC (31.0-37.0) g/dL Neutrophils # (1.3-7.7) k/uL Lymphocytes # (1.0-4.8) k/uL Sodium (137-145) mmol/L Chloride (98-107) mmol/L BUN (7-17) mg/dL Creatinine (0.52-1.04) mg/dL Glucose (74-99) mg/dL POC Glucose (mg/dL) 265 H 198 H 137 H (70-110) mg/dL Hemoglobin A1c (0.0-6.0) % Magnesium (1.6-2.3) mg/dL 04/28/22 04/28/22 04/28/22 Range/Units 02:31 03:25 05:30 RBC (3.80-5.40) m/uL Hgb (11.4-16.0) gm/dL Hct (34.0-46.0) % MCHC (31.0-37.0) g/dL Neutrophils # (1.3-7.7) k/uL Lymphocytes # (1.0-4.8) k/uL Sodium (137-145) mmol/L Chloride (98-107) mmol/L BUN (7-17) mg/dL Creatinine (0.52-1.04) mg/dL Glucose (74-99) mg/dL POC Glucose (mg/dL) 137 H 165 H 221 H (70-110) mg/dL Hemoglobin A1c (0.0-6.0) % Magnesium (1.6-2.3) mg/dL 04/28/22 04/28/22 04/28/22 Range/Units 06:31 06:41 06:41 RBC 2.76 L (3.80-5.40) m/uL Hgb 7.9 L (11.4-16.0) gm/dL Hct 27.0 L (34.0-46.0) % MCHC 29.3 L (31.0-37.0) g/dL Neutrophils # 9.3 H (1.3-7.7) k/uL Lymphocytes # 0.5 L (1.0-4.8) k/uL Sodium 136 L (137-145) mmol/L Chloride 96 L (98-107) mmol/L BUN 46 H (7-17) mg/dL Creatinine 1.30 H (0.52-1.04) mg/dL Glucose 163 H (74-99) mg/dL POC Glucose (mg/dL) 186 H (70-110) mg/dL Hemoglobin A1c (0.0-6.0) % Magnesium 1.4 L (1.6-2.3) mg/dL 04/28/22 04/28/22 04/28/22 Range/Units 07:31 09:20 10:20 RBC (3.80-5.40) m/uL Hgb (11.4-16.0) gm/dL Hct (34.0-46.0) % MCHC (31.0-37.0) g/dL Neutrophils # (1.3-7.7) k/uL Lymphocytes # (1.0-4.8) k/uL Sodium (137-145) mmol/L Chloride (98-107) mmol/L BUN (7-17) mg/dL Creatinine (0.52-1.04) mg/dL Glucose (74-99) mg/dL POC Glucose (mg/dL) 166 H 189 H 274 H (70-110) mg/dL Hemoglobin A1c (0.0-6.0) % Magnesium (1.6-2.3) mg/dL
[2022-04-28 11:46] VITALS: BMI 32.3
[2022-04-28] MEDS: MAGNESIUM SULFATE-D5W PMX 1 GM in DEXTROSE/WATER 1 100ML.BAG IVPB SCH ×2 (11:53→12:42)
[2022-04-28 12:57] LABS: Glucose,Whole Blood 314 mg/dL (70-110)
[2022-04-28 13:41] LABS: Glucose,Whole Blood 364 mg/dL (70-110)
--- NOTE | 2022-04-28 13:56 | P.PN ---
Subjective Progress Note Date: 04/28/22 Principal diagnosis: Acute exacerbation of COPD This is a very pleasant 71-year-old female with a known history of hypertension, hyperlipidemia, osteoarthritis, COPD and basal skin carcinoma of the eyelid, chronic back pain and degenerative disc disease, anxiety/depression and previous history of smoking however quit 3 years ago. She is oxygen dependent on 4 L at home. She presents again to the emergency room with a two-day history of increasing shortness of breath, chest tightness and wheezing. Stating her O2 saturation was down to 75%. She does have a history of ventilatory dependent respiratory failure approximate 3 years ago. She follows with Dr. Cho in our office. She is maintained on DuoNeb inhalations, Symbicort, albuterol HFA. She was recently discharged from here for congestive heart failure. Today's chest x-ray shows cardiomegaly with increased interstitial markings and mild to moderate interstitial edema bilaterally redemonstrated no significant change compared to previous on 04/10/2022. She had been seen by cardiology last admission. White count 11.1. Hemoccult 8.0. Sodium 135. Potassium 4.8. BUN 44. Creatinine 1.83. Glucose 142. Troponin negative 1. She is currently on Lasix 40 mg IV every 12 hours, Symbicort, DuoNeb inhalations, IV Solu-Medrol. She is seen today in consultation in the emergency department. She is sitting up in the stretcher. Awake and alert in no acute distress. She is quite bronchus spastic and wheezy. She is dyspneic with conversation. Dyspneic with minimal exertion. Maintain O2 saturations in the 90s on 8 L high flow nasal cannula. Afebrile. Hemodynamically stable. The patient's Lasix #[id number] 2021 in follow-up in the emergency department. She is awake and alert in no acute distress. Breathing easier today compared to yesterday. She is still on 15 L high flow alternating with BiPAP 10/5 and 80% FiO2. She is in sinus rhythm. She is dyspneic with normal conversation. Dyspneic with minimal exertion. White count 6.7. Hemoglobin 7.8. Platelets 277. Lymphocytes 0.3. Sedimentation 5. Potassium 5.4. BUN 45. Creatinine 1.49. Glucose 294. AST 11. ALT 13. ProBNP 14,500. She is continued on Symbicort, DuoNeb inhalations, IV Solu-Medrol. Remains on IV diuretics. No accurate I&O recorded. Heparin for DVT prophylaxis. The patient is seen today 04/27/2022 follow-up on the selective care unit. She is currently sitting up in bed. Awake and alert. She is still dyspneic with conversation. Dyspneic with minimal exertion. She is currently on IPAP 10/5 and 70% FiO2. She was on 15 L high flow nasal cannula for approximate 10 minutes and dropped in the mid 80s and oxygen saturation. She was short of breath. She is continued on Symbicort, DuoNeb inhalations, IV Solu-Medrol. Empiric antibiotics in the form of azithromycin. Heparin for DVT prophylaxis. Remains on IV diuretics Lasix 40 mg every 12 hours. White count 9.8. Hemoglobin 7.4. Platelets 314. Sodium 133. Potassium 5.1. Chloride 98. Bicarb 25. BUN 46. Creatinine 1.40. Pro calcitonin 1.45. Reevaluated today on 04/28/2022, patient remains on the selective care unit, she seems to be calm and quiet, patient is nonetheless on airvo at 70% FiO2, and flow of 45 L/m. Patient is more comfortable with a airvo then she was on BiPAP, he seems to be quite comfortable and not in distress. And her O2 saturation is a 100%. Hence her FiO2 and her flow rate could be titrated down to maintain O2 saturation just above 90%. Patient continues to have BiPAP at bedside. WBC count is 10.1 hemoglobin 7.9 lites are normal renal profile is improving creatinine down to 1.30 from 1.83 on admission. Follow-up chest x-ray 2 days ago showed cardiomegaly and mild pulmonary vascular congestion with basilar atel ectasis, possible infiltrates. Objective - Vital Signs Vital signs: Vital Signs Temp 98.0 F 04/28/22 11:51 Pulse 73 04/28/22 12:46 Resp 20 04/28/22 12:46 BP 180/73 04/28/22 11:51 Pulse Ox 100 04/28/22 11:51 FiO2 70 04/28/22 11:40 Intake & Output 04/27/22 04/28/22 04/28/22 18:59 06:59 18:59 Intake Total 38.380 32.053 Output Total 1200 750 Balance -1200 38.380 -717.947 Weight 72.575 kg Intake: Intake, IV Titration 38.380 32.053 Amount Insulin Regular 100 unit 38.380 32.053 In Sodium Chloride 0.9% 100 ml @ Titrate IV .Q0M [facility] Rx#:[id number] Output: Urine 1200 750 Other: Voiding Method External Catheter External Catheter External Catheter - Exam GENERAL EXAM: Revealed a 71-year-old female, obese, on airvo at 70% FiO2 and 45 L flow. HEAD: Normocephalic. Patient looks cushingoid. EYES: Normal reaction of pupils, equal size. NOSE: Clear with pink turbinates. THROAT: No erythema or exudates. NECK: No masses, no JVD. CHEST: No chest wall deformity. LUNGS: Scattered rhonchi and wheezes noted bilaterally diminished at the bases. CVS: Distant S1 and S2, no S3 gallop. ABDOMEN: Obese, soft, nontender, no megaly, no rebound. SKIN: No rashes CENTRAL NERVOUS SYSTEM: Alert and oriented 3, no gross focal deficits. EXTREMITIES: 1+ bipedal edema, no cyanosis, good pulses bilaterally - Labs CBC & Chem 7: 04/28/22 06:41 04/28/22 06:41 Labs: Abnormal Lab Results - Last 24 Hours (Table) 04/27/22 04/27/22 04/27/22 Range/Units 06:22 16:38 20:14 RBC (3.80-5.40) m/uL Hgb (11.4-16.0) gm/dL Hct (34.0-46.0) % MCHC (31.0-37.0) g/dL Neutrophils # (1.3-7.7) k/uL Lymphocytes # (1.0-4.8) k/uL Sodium (137-145) mmol/L Chloride (98-107) mmol/L BUN (7-17) mg/dL Creatinine (0.52-1.04) mg/dL Glucose (74-99) mg/dL POC Glucose (mg/dL) 401 H 324 H (70-110) mg/dL Hemoglobin A1c 6.3 H (0.0-6.0) % Magnesium (1.6-2.3) mg/dL 04/27/22 04/27/22 04/27/22 Range/Units 21:32 22:31 23:33 RBC (3.80-5.40) m/uL Hgb (11.4-16.0) gm/dL Hct (34.0-46.0) % MCHC (31.0-37.0) g/dL Neutrophils # (1.3-7.7) k/uL Lymphocytes # (1.0-4.8) k/uL Sodium (137-145) mmol/L Chloride (98-107) mmol/L BUN (7-17) mg/dL Creatinine (0.52-1.04) mg/dL Glucose (74-99) mg/dL POC Glucose (mg/dL) 316 H 330 H 265 H (70-110) mg/dL Hemoglobin A1c (0.0-6.0) % Magnesium (1.6-2.3) mg/dL 04/28/22 04/28/22 04/28/22 Range/Units 00:30 01:31 02:31 RBC (3.80-5.40) m/uL Hgb (11.4-16.0) gm/dL Hct (34.0-46.0) % MCHC (31.0-37.0) g/dL Neutrophils # (1.3-7.7) k/uL Lymphocytes # (1.0-4.8) k/uL Sodium (137-145) mmol/L Chloride (98-107) mmol/L BUN (7-17) mg/dL Creatinine (0.52-1.04) mg/dL Glucose (74-99) mg/dL POC Glucose (mg/dL) 198 H 137 H 137 H (70-110) mg/dL Hemoglobin A1c (0.0-6.0) % Magnesium (1.6-2.3) mg/dL 04/28/22 04/28/22 04/28/22 Range/Units 03:25 05:30 06:31 RBC (3.80-5.40) m/uL Hgb (11.4-16.0) gm/dL Hct (34.0-46.0) % MCHC (31.0-37.0) g/dL Neutrophils # (1.3-7.7) k/uL Lymphocytes # (1.0-4.8) k/uL Sodium (137-145) mmol/L Chloride (98-107) mmol/L BUN (7-17) mg/dL Creatinine (0.52-1.04) mg/dL Glucose (74-99) mg/dL POC Glucose (mg/dL) 165 H 221 H 186 H (70-110) mg/dL Hemoglobin A1c (0.0-6.0) % Magnesium (1.6-2.3) mg/dL 04/28/22 04/28/22 04/28/22 Range/Units 06:41 06:41 07:31 RBC 2.76 L (3.80-5.40) m/uL Hgb 7.9 L (11.4-16.0) gm/dL Hct 27.0 L (34.0-46.0) % MCHC 29.3 L (31.0-37.0) g/dL Neutrophils # 9.3 H (1.3-7.7) k/uL Lymphocytes # 0.5 L (1.0-4.8) k/uL Sodium 136 L (137-145) mmol/L Chloride 96 L (98-107) mmol/L BUN 46 H (7-17) mg/dL Creatinine 1.30 H (0.52-1.04) mg/dL Glucose 163 H (74-99) mg/dL POC Glucose (mg/dL) 166 H (70-110) mg/dL Hemoglobin A1c (0.0-6.0) % Magnesium 1.4 L (1.6-2.3) mg/dL 04/28/22 04/28/22 04/28/22 Range/Units 09:20 10:20 11:23 RBC (3.80-5.40) m/uL Hgb (11.4-16.0) gm/dL Hct (34.0-46.0) % MCHC (31.0-37.0) g/dL Neutrophils # (1.3-7.7) k/uL Lymphocytes # (1.0-4.8) k/uL Sodium (137-145) mmol/L Chloride (98-107) mmol/L BUN (7-17) mg/dL Creatinine (0.52-1.04) mg/dL Glucose (74-99) mg/dL POC Glucose (mg/dL) 189 H 274 H 282 H (70-110) mg/dL Hemoglobin A1c (0.0-6.0) % Magnesium (1.6-2.3) mg/dL 04/28/22 04/28/22 Range/Units 12:37 13:20 RBC (3.80-5.40) m/uL Hgb (11.4-16.0) gm/dL Hct (34.0-46.0) % MCHC (31.0-37.0) g/dL Neutrophils # (1.3-7.7) k/uL Lymphocytes # (1.0-4.8) k/uL Sodium (137-145) mmol/L Chloride (98-107) mmol/L BUN (7-17) mg/dL Creatinine (0.52-1.04) mg/dL Glucose (74-99) mg/dL POC Glucose (mg/dL) 314 H 364 H (70-110) mg/dL Hemoglobin A1c (0.0-6.0) % Magnesium (1.6-2.3) mg/dL Assessment and Plan Assessment: Impression: Acute on chronic hypoxic respiratory failure Acute exacerbation of COPD Acute on chronic congestive heart failure with preserved ejection fraction Acute kidney injury, improving in spite of diuretics. Benign essential hypertension Moderate aortic stenosis Ex-smoker quit 3 years ago. Type 2 diabetes Generalized anxiety disorder Chronic cellulitis of lower extremities. Recommendation: Continue bronchodilators Continue airvo and titrate accordingly maintaining O2 saturation of above 91% Continue steroids. Keep BiPAP at bedside. Continue diuretics Continue antibiotics Continue GI and DVT prophylaxis Continue insulin as per protocol. Overall prognosis remains guarded. Not quite ready for discharge planning. We'll continue to follow Time with Patient: Less than 30
[2022-04-28 14:42] LABS: Glucose,Whole Blood 371 mg/dL (70-110)
[2022-04-28] MEDS: INSULIN REGULAR 100 UNIT in SODIUM CHLORIDE 0.9% 100 ML IV SCH (15:35)
[2022-04-28 15:43] LABS: Glucose,Whole Blood 403 mg/dL (70-110)
[2022-04-28 16:43] LABS: Glucose,Whole Blood 373 mg/dL (70-110)
[2022-04-28 17:21] LABS: Glucose,Whole Blood 368 mg/dL (70-110)
[2022-04-28] MEDS ORDERED: Magnesium Replacement Protocol 1 EACH MISC MISCELLANE PRN (17:42)
[2022-04-28] MEDS ORDERED: hydrALAZINE HCL 25 MG TAB PO PRN (17:44)
--- NOTE | 2022-04-28 17:47 | P.PN ---
Subjective Patient is a 71-year-old female with a known history of hypertension, hyperlipidemia, osteoarthritis, COPD and basal skin carcinoma of the eyelid, c hronic back pain and degenerative disc disease, anxiety/depression and previous history of smoking quit about 3 years ago presents to ER with complaints of worsening shortness of breath for the past 2 days. This has been associated with more frequent cough and and phlegm, although her cough is chronic but with recent worsening. She denies chest pain but she is complaining of from back pain and bilateral leg pain. Also patient has been complaining of from her lateral leg wounds with dressing in place. Patient refused to take off the dressing to check him. She denies vomiting or diarrhea. No urinary complaints. No headache or dizziness. No weakness or numbness No alcohol or illicit drugs daughter at bedside Patient is tachypneic at 22, blood pressure is 133/52 She's hypoxic. At home she is on 4 L oxygen. Her oxygen saturation is 94%. Her oxygen requirement increased to 8 during the evening. No fever. Labs show leukocytosis of 11.1. Hemoglobin 8.0. Platelets normal. INR normal at 1.1. Creatinine went up to 1.8, baseline 1.0-1.1 EKG showing normal sinus rhythm at [address]-T changes Chest x-ray: Cardiomegaly with increased interstitial markings suggesting [id number] interstitial edema bilaterally redemonstration. No significant change from most recent x-ray. Correlate for CHF (the actual image did not open for technical reasons) She was admitted to the hospital on October, January and March of this year. This is the fourth admission for similar conditions 04/26/2022 Patient sitting up in bed, awake, and mild or normal respiratory distress. Patient reports improvement in her breathing pattern however her oxygen requirements is currently up to 15 L/m nonrebreather. Repeat chest x-ray this morning showing possible CHF. Monitor input output and electrolytes and creatinine which is improving down to 1.4. Hemoglobin stable at 7.8 She remains on IV Solu-Medrol 60 mg and Lasix 40 mg 04/27/2022 Patient today condition is worse and she is dependent. November calcitonin is elevated. We will ask ceftriaxone 2 g. A ALLERGIC to penicillin which limits antibiotic choice. Continue also Zithromax. Continue with Lasix and Solu-Medrol Glucose is uncontrolled. Patient cannot tolerate diet because on BiPAP. Start insulin drip per protocol Collect sputum culture Discussed with bed side staff 04/28/2022 Patient is alert and awake today, she is able to come to gait and talk more easily. She still have some difficulty breathing. She is significantly hypoxic, she was BiPAP dependent yesterday and she was switched to high flow nasal cannula 45 L/m with 60% FiO2, so patient couldn't tolerate 50% of her diet today. Glucose controlled on insulin drip. Patient continue on Solu-Medrol, IV Lasix, and ceftriaxone Monitor labs in the morning Monitor blood pressure closely. Objective - Vital Signs Vital signs: Vital Signs Temp 98.0 F 04/28/22 11:51 Pulse 72 04/28/22 11:53 Resp 19 04/28/22 11:51 BP 180/73 04/28/22 11:51 Pulse Ox 100 04/28/22 11:51 FiO2 70 04/28/22 11:40 Intake & Output 04/27/22 04/28/22 04/28/22 18:59 06:59 18:59 Intake Total 38.380 22.26 Output Total 1200 750 Balance -1200 38.380 -727.74 Weight 72.575 kg Intake: Intake, IV Titration 38.380 22.26 Amount Insulin Regular 100 unit 38.380 22.26 In Sodium Chloride 0.9% 100 ml @ Titrate IV .Q0M [facility] Rx#:[id number] Output: Urine 1200 750 Other: Voiding Method External Catheter External Catheter External Catheter - Exam --GENERAL: The patient is alert and awake looks tired and in respiratory distress requiring BiPAP, . Obese HEENT: Pupils are round and equally reacting to light. EOMI. No scleral icterus. No conjunctival pallor. Normocephalic, atraumatic. No pharyngeal erythema. No thyromegaly. CARDIOVASCULAR: S1 and S2 present. No murmurs, rubs, or gallops. -PULMONARY: Chest is clear to auscultation,Decreased air entry on both sides with minimal scattered wheezing. Bilateral crepitation ABDOMEN: Soft, nontender, nondistended, normoactive bowel sounds. No palpable organomegaly. MUSCULOSKELETAL: No joint swelling or deformity. -EXTREMITIES: No cyanosis, clubbing, 1+ bilateral pitting like edema NEUROLOGICAL: Gross neurological examination did not reveal any focal deficits. SKIN: No rashes. no petechiae. - Labs CBC & Chem 7: 04/28/22 06:41 04/28/22 06:41 Labs: Abnormal Lab Results - Last 24 Hours (Table) 04/27/22 04/27/22 04/27/22 Range/Units 06:22 16:38 20:14 RBC (3.80-5.40) m/uL Hgb (11.4-16.0) gm/dL Hct (34.0-46.0) % MCHC (31.0-37.0) g/dL Neutrophils # (1.3-7.7) k/uL Lymphocytes # (1.0-4.8) k/uL Sodium (137-145) mmol/L Chloride (98-107) mmol/L BUN (7-17) mg/dL Creatinine (0.52-1.04) mg/dL Glucose (74-99) mg/dL POC Glucose (mg/dL) 401 H 324 H (70-110) mg/dL Hemoglobin A1c 6.3 H (0.0-6.0) % Magnesium (1.6-2.3) mg/dL 04/27/22 04/27/22 04/27/22 Range/Units 21:32 22:31 23:33 RBC (3.80-5.40) m/uL Hgb (11.4-16.0) gm/dL Hct (34.0-46.0) % MCHC (31.0-37.0) g/dL Neutrophils # (1.3-7.7) k/uL Lymphocytes # (1.0-4.8) k/uL Sodium (137-145) mmol/L Chloride (98-107) mmol/L BUN (7-17) mg/dL Creatinine (0.52-1.04) mg/dL Glucose (74-99) mg/dL POC Glucose (mg/dL) 316 H 330 H 265 H (70-110) mg/dL Hemoglobin A1c (0.0-6.0) % Magnesium (1.6-2.3) mg/dL 04/28/22 04/28/22 04/28/22 Range/Units 00:30 01:31 02:31 RBC (3.80-5.40) m/uL Hgb (11.4-16.0) gm/dL Hct (34.0-46.0) % MCHC (31.0-37.0) g/dL Neutrophils # (1.3-7.7) k/uL Lymphocytes # (1.0-4.8) k/uL Sodium (137-145) mmol/L Chloride (98-107) mmol/L BUN (7-17) mg/dL Creatinine (0.52-1.04) mg/dL Glucose (74-99) mg/dL POC Glucose (mg/dL) 198 H 137 H 137 H (70-110) mg/dL Hemoglobin A1c (0.0-6.0) % Magnesium (1.6-2.3) mg/dL 04/28/22 04/28/22 04/28/22 Range/Units 03:25 05:30 06:31 RBC (3.80-5.40) m/uL Hgb (11.4-16.0) gm/dL Hct (34.0-46.0) % MCHC (31.0-37.0) g/dL Neutrophils # (1.3-7.7) k/uL Lymphocytes # (1.0-4.8) k/uL Sodium (137-145) mmol/L Chloride (98-107) mmol/L BUN (7-17) mg/dL Creatinine (0.52-1.04) mg/dL Glucose (74-99) mg/dL POC Glucose (mg/dL) 165 H 221 H 186 H (70-110) mg/dL Hemoglobin A1c (0.0-6.0) % Magnesium (1.6-2.3) mg/dL 04/28/22 04/28/22 04/28/22 Range/Units 06:41 06:41 07:31 RBC 2.76 L (3.80-5.40) m/uL Hgb 7.9 L (11.4-16.0) gm/dL Hct 27.0 L (34.0-46.0) % MCHC 29.3 L (31.0-37.0) g/dL Neutrophils # 9.3 H (1.3-7.7) k/uL Lymphocytes # 0.5 L (1.0-4.8) k/uL Sodium 136 L (137-145) mmol/L Chloride 96 L (98-107) mmol/L BUN 46 H (7-17) mg/dL Creatinine 1.30 H (0.52-1.04) mg/dL Glucose 163 H (74-99) mg/dL POC Glucose (mg/dL) 166 H (70-110) mg/dL Hemoglobin A1c (0.0-6.0) % Magnesium 1.4 L (1.6-2.3) mg/dL 04/28/22 04/28/22 04/28/22 Range/Units 09:20 10:20 11:23 RBC (3.80-5.40) m/uL Hgb (11.4-16.0) gm/dL Hct (34.0-46.0) % MCHC (31.0-37.0) g/dL Neutrophils # (1.3-7.7) k/uL Lymphocytes # (1.0-4.8) k/uL Sodium (137-145) mmol/L Chloride (98-107) mmol/L BUN (7-17) mg/dL Creatinine (0.52-1.04) mg/dL Glucose (74-99) mg/dL POC Glucose (mg/dL) 189 H 274 H 282 H (70-110) mg/dL Hemoglobin A1c (0.0-6.0) % Magnesium (1.6-2.3) mg/dL Assessment and Plan Assessment: Shortness of breath secondary to COPD and CHF.Pneumonia not entirely excluded although felt less likely Acute COPD exacerbation possible acute bilateral pneumonia. Possible community acquired Acute on chronic hypoxic respiratory failure secondary to above Acut the chronic diastolic CHF Acute kidney injury likely prerenal CKD stage IIIB Chronic hypoxic respiratory failure on 3-4 L oxygen via nasal cannula. Morbid obesity with BMI 41.9 Deconditioning related to multiple hospitalization Hypertension Hypokalemia Diabetes type 2 [id number] Osteoarthritis Hypothyroidism History of cellulitis of legs Obesity with BMI of 32.3 Plan: This is a pleasant 71 years old female who presents with dyspnea mostly COPD and CHF Continue with Solu-Medrol Continue with Zithromax and ceftriaxone Start Lasix 40 mg twice daily. Cardiology and pulmonary consult Oxygen as needed and breathing treatment Labs and medication were reviewed.. Continue same treatment. Continue with symptomatic treatment. Resume home medication. Monitor lytes and vitals. DVT and GI prophylaxis. Further recommendations as per clinical course of the patient DVT prophylaxis: Subcutaneous heparin GI Prophylaxis: Pepcid PT/OT: Pending Short-term Prognosis is guarded, long-term prognosis is also poor given her complex and multiple medical problems with recurrent hospitalization. If patient does not improve then we would recommend more palliative approach of the treatment
[2022-04-28 19:46] LABS: Glucose,Whole Blood 402 mg/dL (70-110)
[2022-04-28] MEDS ORDERED: AZITHROMYCIN 500 MG TAB PO ONE (20:00)
[2022-04-28 20:26] LABS: Glucose,Whole Blood 392 mg/dL (70-110)
[2022-04-28] MEDS: AZITHROMYCIN 500 MG in SODIUM CHLORIDE 0.9% 250 ML IVPB SCH (20:27)
[2022-04-28 20:50] LABS: Glucose,Whole Blood 326 mg/dL (70-110)
[2022-04-28] MEDS: traZODone HCL 100 MG TAB PO SCH (20:57)
[2022-04-28] MEDS: ARIPiprazole 5 MG TAB PO SCH (20:57)
[2022-04-28 21:58] LABS: Glucose,Whole Blood 269 mg/dL (70-110)
[2022-04-28 23:01] LABS: Glucose,Whole Blood 223 mg/dL (70-110)
[2022-04-29] LABS: Glucose,Whole Blood 153 mg/dL (70-110)
[2022-04-29] MEDS: INSULIN REGULAR 100 UNIT in SODIUM CHLORIDE 0.9% 100 ML IV SCH (00:28)
[2022-04-29 01:59] LABS: Glucose,Whole Blood 99 mg/dL (70-110)
[2022-04-29 02:12] LABS: Glucose,Whole Blood 104 mg/dL (70-110)
[2022-04-29 03:04] LABS: Glucose,Whole Blood 170 mg/dL (70-110)
[2022-04-29 04:05] LABS: Glucose,Whole Blood 182 mg/dL (70-110)
[2022-04-29 05:02] LABS: Glucose,Whole Blood 199 mg/dL (70-110)
[2022-04-29 06:02] LABS: Glucose,Whole Blood 198 mg/dL (70-110)
[2022-04-29] MEDS: methylPREDNISolone SOD SUCCI 125 MG/2 ML VIAL IV SCH ×3 (06:41→18:18)
[2022-04-29] MEDS: LEVOTHYROXINE 100 MCG TAB PO SCH (06:41)
[2022-04-29] MEDS: INSULIN ASPART (NovoLOG) 100 UNIT/ML VIAL SQ SCH ×4 (06:44→20:41)
[2022-04-29 07:08] LABS: Glucose,Whole Blood 164 mg/dL (70-110)
[2022-04-29] MEDS: SYMBICORT 160-4.5 MCG INHALER INHALATION SCH ×2 (07:38→21:19)
[2022-04-29] MEDS: IPRATROPIUM-ALBUTEROL 3 ML NEB INHALATION PRN ×3 (07:38→21:19)
[2022-04-29] MEDS: HEPARIN SODIUM,PORCINE/PF 5,000 UNIT/0.5 ML SYRINGE SQ SCH ×2 (09:13→20:39)
[2022-04-29 09:14] LABS: Glucose,Whole Blood 156 mg/dL (70-110)
[2022-04-29] MEDS: FAMOTIDINE 20 MG/2 ML VIAL IV SCH (09:14)
[2022-04-29] MEDS: FUROSEMIDE 10 MG/ML 4 ML VIAL IV SCH ×2 (09:14→20:38)
[2022-04-29] MEDS: amLODIPine 10 MG TAB PO SCH (09:14)
[2022-04-29] MEDS: ATORVASTATIN 40 MG TAB PO SCH (09:14)
[2022-04-29] MEDS: allopurinoL 100 MG TAB PO SCH (09:14)
[2022-04-29] MEDS: METOPROLOL SUCCINATE (ER) 25 MG TAB.ER.24H PO SCH (09:14)
[2022-04-29] MEDS: CITALOPRAM HYDROBROMIDE 20 MG TAB PO SCH (09:14)
[2022-04-29 09:25] LABS: HCT 29.2 % (34.0-46.0); HGB 8.8 gm/dL (11.4-16.0); Hypochromasia Marked; MCV 96.6 fL (80.0-100.0); Mean Platelet Volume 7.3; Platelet Count 378 k/uL (150-450); RBC 3.02 m/uL (3.80-5.40); RDW 15.8 % (11.5-15.5); WBC 16.5 k/uL (3.8-10.6)
[2022-04-29 09:26] LABS: Albumin 2.8 g/dL (3.5-5.0); Bilirubin, Delta 0.3 mg/dL (0.0-0.2); Bilirubin,Unconjugated 0.1 mg/dL (0.0-1.1); Calcium 8.4 mg/dL (8.4-10.2); Magnesium 1.5 mg/dL (1.6-2.3); Potassium 3.3 mmol/L (3.5-5.1); Total Bilirubin 0.4 mg/dL (0.2-1.3); Total Protein 5.1 g/dL (6.3-8.2)
[2022-04-29] MEDS ORDERED: Potassium Replacement Protocol 1 EACH MISC MISCELLANE PRN (10:17)
--- NOTE | 2022-04-29 10:20 | P.PN ---
Subjective Patient is a 71-year-old female with a known history of hypertension, hyperlipidemia, osteoarthritis, COPD and basal skin carcinoma of the eyelid, c hronic back pain and degenerative disc disease, anxiety/depression and previous history of smoking quit about 3 years ago presents to ER with complaints of worsening shortness of breath for the past 2 days. This has been associated with more frequent cough and and phlegm, although her cough is chronic but with recent worsening. She denies chest pain but she is complaining of from back pain and bilateral leg pain. Also patient has been complaining of from her lateral leg wounds with dressing in place. Patient refused to take off the dressing to check him. She denies vomiting or diarrhea. No urinary complaints. No headache or dizziness. No weakness or numbness No alcohol or illicit drugs daughter at bedside Patient is tachypneic at 22, blood pressure is 133/52 She's hypoxic. At home she is on 4 L oxygen. Her oxygen saturation is 94%. Her oxygen requirement increased to 8 during the evening. No fever. Labs show leukocytosis of 11.1. Hemoglobin 8.0. Platelets normal. INR normal at 1.1. Creatinine went up to 1.8, baseline 1.0-1.1 EKG showing normal sinus rhythm at [address]-T changes Chest x-ray: Cardiomegaly with increased interstitial markings suggesting [id number] interstitial edema bilaterally redemonstration. No significant change from most recent x-ray. Correlate for CHF (the actual image did not open for technical reasons) She was admitted to the hospital on October, January and March of this year. This is the fourth admission for similar conditions 04/26/2022 Patient sitting up in bed, awake, and mild or normal respiratory distress. Patient reports improvement in her breathing pattern however her oxygen requirements is currently up to 15 L/m nonrebreather. Repeat chest x-ray this morning showing possible CHF. Monitor input output and electrolytes and creatinine which is improving down to 1.4. Hemoglobin stable at 7.8 She remains on IV Solu-Medrol 60 mg and Lasix 40 mg 04/27/2022 Patient today condition is worse and she is dependent. November calcitonin is elevated. We will ask ceftriaxone 2 g. A ALLERGIC to penicillin which limits antibiotic choice. Continue also Zithromax. Continue with Lasix and Solu-Medrol Glucose is uncontrolled. Patient cannot tolerate diet because on BiPAP. Start insulin drip per protocol Collect sputum culture Discussed with bed side staff 04/28/2022 Patient is alert and awake today, she is able to come to gait and talk more easily. She still have some difficulty breathing. She is significantly hypoxic, she was BiPAP dependent yesterday and she was switched to high flow nasal cannula 45 L/m with 60% FiO2, so patient couldn't tolerate 50% of her diet today. Glucose controlled on insulin drip. Patient continue on Solu-Medrol, IV Lasix, and ceftriaxone Monitor labs in the morning Monitor blood pressure closely. 04/29/2022 Patient is starts feeling better today, even her oxygen requirements went down little bit 45/FiO2 of 50%, she is not on BiPAP currently. However she still significantly dyspneic and tachypneic. She still has some limited air entry and scattered wheezing but improvement compared for the last 2 days. She has less leg swelling. Labs reviewed than the looks stable. Creatinine improved to 1.2. Glucose controlled. Hemoglobin 8.8. WBC elevated well on steroids She is currently on Solu-Medrol 60 mg, Lasix 40 mg twice daily, insulin drip and ceftriaxone Objective - Vital Signs Vital signs: Vital Signs Temp 98.2 F 04/28/22 20:00 Pulse 76 04/29/22 07:54 Resp 22 04/29/22 04:00 BP 150/72 04/29/22 04:00 Pulse Ox 96 04/29/22 07:44 FiO2 50 04/29/22 07:44 Intake & Output 04/28/22 04/29/22 04/29/22 18:59 06:59 18:59 Intake Total 430.813 113.563 240 Output Total 750 1200 Balance -319.187 113.563 -960 Weight 72.575 kg Intake: Intake, IV Titration 72.813 113.563 Amount Insulin Regular 100 unit 72.813 113.563 In Sodium Chloride 0.9% 100 ml @ Titrate IV .Q0M [facility] Rx#:[id number] Oral 358 240 Output: Urine 750 1200 Other: Voiding Method Diaper Diaper External Catheter External Catheter - Exam --GENERAL: The patient is alert and awake looks tired and in respiratory distress requiring BiPAP, . Obese HEENT: Pupils are round and equally reacting to light. EOMI. No scleral icterus. No conjunctival pallor. Normocephalic, atraumatic. No pharyngeal erythema. No thyromegaly. CARDIOVASCULAR: S1 and S2 present. No murmurs, rubs, or gallops. -PULMONARY: Chest is clear to auscultation,Decreased air entry on both sides with minimal scattered wheezing. Bilateral crepitation ABDOMEN: Soft, nontender, nondistended, normoactive bowel sounds. No palpable organomegaly. MUSCULOSKELETAL: No joint swelling or deformity. -EXTREMITIES: No cyanosis, clubbing, 1+ bilateral pitting like edema NEUROLOGICAL: Gross neurological examination did not reveal any focal deficits. SKIN: No rashes. no petechiae. - Labs CBC & Chem 7: 04/29/22 07:40 04/29/22 07:40 Labs: Abnormal Lab Results - Last 24 Hours (Table) 04/28/22 04/28/22 04/28/22 Range/Units 10:20 11:23 12:37 Potassium (3.5-5.1) mmol/L Chloride (98-107) mmol/L BUN (7-17) mg/dL Creatinine (0.52-1.04) mg/dL Glucose (74-99) mg/dL POC Glucose (mg/dL) 274 H 282 H 314 H (70-110) mg/dL Magnesium (1.6-2.3) mg/dL Delta Bilirubin (0.0-0.2) mg/dL AST (14-36) U/L Total Protein (6.3-8.2) g/dL Albumin (3.5-5.0) g/dL 04/28/22 04/28/22 04/28/22 Range/Units 13:20 14:22 15:24 Potassium (3.5-5.1) mmol/L Chloride (98-107) mmol/L BUN (7-17) mg/dL Creatinine (0.52-1.04) mg/dL Glucose (74-99) mg/dL POC Glucose (mg/dL) 364 H 371 H 403 H (70-110) mg/dL Magnesium (1.6-2.3) mg/dL Delta Bilirubin (0.0-0.2) mg/dL AST (14-36) U/L Total Protein (6.3-8.2) g/dL Albumin (3.5-5.0) g/dL 04/28/22 04/28/22 04/28/22 Range/Units 16:23 17:19 18:21 Potassium (3.5-5.1) mmol/L Chloride (98-107) mmol/L BUN (7-17) mg/dL Creatinine (0.52-1.04) mg/dL Glucose (74-99) mg/dL POC Glucose (mg/dL) 373 H 368 H 392 H (70-110) mg/dL Magnesium (1.6-2.3) mg/dL Delta Bilirubin (0.0-0.2) mg/dL AST (14-36) U/L Total Protein (6.3-8.2) g/dL Albumin (3.5-5.0) g/dL 04/28/22 04/28/22 04/28/22 Range/Units 19:44 20:49 21:57 Potassium (3.5-5.1) mmol/L Chloride (98-107) mmol/L BUN (7-17) mg/dL Creatinine (0.52-1.04) mg/dL Glucose (74-99) mg/dL POC Glucose (mg/dL) 402 H 326 H 269 H (70-110) mg/dL Magnesium (1.6-2.3) mg/dL Delta Bilirubin (0.0-0.2) mg/dL AST (14-36) U/L Total Protein (6.3-8.2) g/dL Albumin (3.5-5.0) g/dL 04/28/22 04/28/22 04/29/22 Range/Units 23:00 23:58 03:02 Potassium (3.5-5.1) mmol/L Chloride (98-107) mmol/L BUN (7-17) mg/dL Creatinine (0.52-1.04) mg/dL Glucose (74-99) mg/dL POC Glucose (mg/dL) 223 H 153 H 170 H (70-110) mg/dL Magnesium (1.6-2.3) mg/dL Delta Bilirubin (0.0-0.2) mg/dL AST (14-36) U/L Total Protein (6.3-8.2) g/dL Albumin (3.5-5.0) g/dL 04/29/22 04/29/22 04/29/22 Range/Units 04:03 05:00 06:01 Potassium (3.5-5.1) mmol/L Chloride (98-107) mmol/L BUN (7-17) mg/dL Creatinine (0.52-1.04) mg/dL Glucose (74-99) mg/dL POC Glucose (mg/dL) 182 H 199 H 198 H (70-110) mg/dL Magnesium (1.6-2.3) mg/dL Delta Bilirubin (0.0-0.2) mg/dL AST (14-36) U/L Total Protein (6.3-8.2) g/dL Albumin (3.5-5.0) g/dL 04/29/22 04/29/22 04/29/22 Range/Units 06:56 07:40 09:02 Potassium 3.3 L (3.5-5.1) mmol/L Chloride 97 L (98-107) mmol/L BUN 47 H (7-17) mg/dL Creatinine 1.24 H (0.52-1.04) mg/dL Glucose 125 H (74-99) mg/dL POC Glucose (mg/dL) 164 H 156 H (70-110) mg/dL Magnesium 1.5 L (1.6-2.3) mg/dL Delta Bilirubin 0.3 H (0.0-0.2) mg/dL AST 12 L (14-36) U/L Total Protein 5.1 L (6.3-8.2) g/dL Albumin 2.8 L (3.5-5.0) g/dL Assessment and Plan Assessment: Shortness of breath secondary to COPD and CHF.Pneumonia not entirely excluded although felt less likely Acute COPD exacerbation possible acute bilateral pneumonia. Possible community acquired Acute on chronic hypoxic respiratory failure secondary to above Acut the chronic diastolic CHF Acute kidney injury likely prerenal CKD stage IIIB Chronic hypoxic respiratory failure on 3-4 L oxygen via nasal cannula. Morbid obesity with BMI 41.9 Deconditioning related to multiple hospitalization Hypertension Hypokalemia Diabetes type 2 [id number] Osteoarthritis Hypothyroidism History of cellulitis of legs Obesity with BMI of 32.3 Plan: This is a pleasant 71 years old female who presents with dyspnea mostly COPD and CHF Continue with Solu-Medrol Continue with Zithromax and ceftriaxone Start Lasix 40 mg twice daily. Cardiology and pulmonary consult Oxygen as needed and breathing treatment Labs and medication were reviewed.. Continue same treatment. Continue with symptomatic treatment. Resume home medication. Monitor lytes and vitals. DVT and GI prophylaxis. Further recommendations as per clinical course of the patient DVT prophylaxis: Subcutaneous heparin GI Prophylaxis: Pepcid PT/OT: Pending Short-term Prognosis is guarded, long-term prognosis is also poor given her complex and multiple medical problems with recurrent hospitalization. If patient does not improve then we would recommend more palliative approach of the treatment
[2022-04-29 11:14] LABS: Glucose,Whole Blood 107 mg/dL (70-110)
[2022-04-29 11:17] LABS: Band Neutrophils % 2 %; Lymphocytes # (M) 0.99 k/uL (1.0-4.8); Metamyelocytes # (M) 0.17 k/uL (0); Metamyelocytes % 1 %; Monocytes # (M) 0.33 k/uL (0-1.0); Myelocytes # (M) 0.33 k/uL (0); Myelocytes % 2 %; Neutrophils % (M) 89 %; Nucleated Red Blood Cells 0 /100 WBC (0-0); Total Cells Counted 200
[2022-04-29 11:19] LABS: Anisocytosis (M) Present; Poikilocytosis (M) Present
[2022-04-29 11:59] LABS: Glucose,Whole Blood 130 mg/dL (70-110)
[2022-04-29] MEDS: POTASSIUM CHLORIDE ER 20 MEQ TAB.ER PO SCH ×2 (12:18→12:44)
[2022-04-29] MEDS: HYDROcodone/APAP 7.5-325MG 1 EACH TAB PO PRN ×2 (12:44→20:39)
[2022-04-29 13:04] LABS: Glucose,Whole Blood 183 mg/dL (70-110)
--- NOTE | 2022-04-29 13:36 | P.PN ---
Subjective Progress Note Date: 04/29/22 Principal diagnosis: Acute exacerbation of COPD This is a very pleasant 71-year-old female with a known history of hypertension, hyperlipidemia, osteoarthritis, COPD and basal skin carcinoma of the eyelid, chronic back pain and degenerative disc disease, anxiety/depression and previous history of smoking however quit 3 years ago. She is oxygen dependent on 4 L at home. She presents again to the emergency room with a two-day history of increasing shortness of breath, chest tightness and wheezing. Stating her O2 saturation was down to 75%. She does have a history of ventilatory dependent respiratory failure approximate 3 years ago. She follows with Dr. Cho in our office. She is maintained on DuoNeb inhalations, Symbicort, albuterol HFA. She was recently discharged from here for congestive heart failure. Today's chest x-ray shows cardiomegaly with increased interstitial markings and mild to moderate interstitial edema bilaterally redemonstrated no significant change compared to previous on 04/10/2022. She had been seen by cardiology last admission. White count 11.1. Hemoccult 8.0. Sodium 135. Potassium 4.8. BUN 44. Creatinine 1.83. Glucose 142. Troponin negative 1. She is currently on Lasix 40 mg IV every 12 hours, Symbicort, DuoNeb inhalations, IV Solu-Medrol. She is seen today in consultation in the emergency department. She is sitting up in the stretcher. Awake and alert in no acute distress. She is quite bronchus spastic and wheezy. She is dyspneic with conversation. Dyspneic with minimal exertion. Maintain O2 saturations in the 90s on 8 L high flow nasal cannula. Afebrile. Hemodynamically stable. The patient's Lasix #[id number] 2021 in follow-up in the emergency department. She is awake and alert in no acute distress. Breathing easier today compared to yesterday. She is still on 15 L high flow alternating with BiPAP 10/5 and 80% FiO2. She is in sinus rhythm. She is dyspneic with normal conversation. Dyspneic with minimal exertion. White count 6.7. Hemoglobin 7.8. Platelets 277. Lymphocytes 0.3. Sedimentation 5. Potassium 5.4. BUN 45. Creatinine 1.49. Glucose 294. AST 11. ALT 13. ProBNP 14,500. She is continued on Symbicort, DuoNeb inhalations, IV Solu-Medrol. Remains on IV diuretics. No accurate I&O recorded. Heparin for DVT prophylaxis. The patient is seen today 04/27/2022 follow-up on the selective care unit. She is currently sitting up in bed. Awake and alert. She is still dyspneic with conversation. Dyspneic with minimal exertion. She is currently on IPAP 10/5 and 70% FiO2. She was on 15 L high flow nasal cannula for approximate 10 minutes and dropped in the mid 80s and oxygen saturation. She was short of breath. She is continued on Symbicort, DuoNeb inhalations, IV Solu-Medrol. Empiric antibiotics in the form of azithromycin. Heparin for DVT prophylaxis. Remains on IV diuretics Lasix 40 mg every 12 hours. White count 9.8. Hemoglobin 7.4. Platelets 314. Sodium 133. Potassium 5.1. Chloride 98. Bicarb 25. BUN 46. Creatinine 1.40. Pro calcitonin 1.45. Reevaluated today on 04/28/2022, patient remains on the selective care unit, she seems to be calm and quiet, patient is nonetheless on airvo at 70% FiO2, and flow of 45 L/m. Patient is more comfortable with a airvo then she was on BiPAP, he seems to be quite comfortable and not in distress. And her O2 saturation is a 100%. Hence her FiO2 and her flow rate could be titrated down to maintain O2 saturation just above 90%. Patient continues to have BiPAP at bedside. WBC count is 10.1 hemoglobin 7.9 lites are normal renal profile is improving creatinine down to 1.30 from 1.83 on admission. Follow-up chest x-ray 2 days ago showed cardiomegaly and mild pulmonary vascular congestion with basilar atel ectasis, possible infiltrates. Reevaluated today on 04/29/2022, patient remains in the selective care unit, patient remains on airvo she seems to be quite calm, feeling better, and my plan is to change airvo to high flow nasal cannula she is now on 50% FiO2 and 45 L/m flow. She does have BiPAP at bedside, but she seems to be more comfortable with airvo. Clinically better, however considering surgery requiring relatively high FiO2 and high flow, needs to be tapered down to her usual nasal cannula oxygen which is supposedly at 4 L/m WBC count is 16.5 hemoglobin is 8.8. Electrolytes are normal except for low potassium of 3.3 renal functioning has been gradually improving and she has a creatinine of 1.24 today compared to 1.83 on admission Pro calcitonin was relatively high on admission 1.97 and is trending down. Objective - Vital Signs Vital signs: Vital Signs Temp 98.5 F 04/29/22 11:48 Pulse 70 04/29/22 12:46 Resp 20 04/29/22 11:48 BP 147/62 04/29/22 11:48 Pulse Ox 97 04/29/22 13:03 FiO2 50 04/29/22 12:34 Intake & Output 04/28/22 04/29/22 04/29/22 18:59 06:59 18:59 Intake Total 430.813 113.563 298.483 Output Total 750 1650 Balance -319.187 113.563 -1351.517 Weight 72.575 kg Intake: Intake, IV Titration 72.813 113.563 58.483 Amount Insulin Regular 100 unit 72.813 113.563 58.483 In Sodium Chloride 0.9% 100 ml @ Titrate IV .Q0M [facility] Rx#:[id number] Oral 358 240 Output: Urine 750 1650 Other: Voiding Method Diaper Diaper External Catheter External Catheter - Exam GENERAL EXAM: Revealed a 71-year-old female, obese, on airvo at 50% FiO2 and 45 L flow. HEAD: Normocephalic. Patient looks cushingoid. EYES: Normal reaction of pupils, equal size. NOSE: Clear with pink turbinates. THROAT: No erythema or exudates. NECK: No masses, no JVD. CHEST: No chest wall deformity. LUNGS: Scattered rhonchi and wheezes noted bilaterally diminished at the bases. CVS: Distant S1 and S2, no S3 gallop. ABDOMEN: Obese, soft, nontender, no megaly, no rebound. SKIN: No rashes CENTRAL NERVOUS SYSTEM: Alert and oriented 3, no gross focal deficits. EXTREMITIES: 1+ bipedal edema, no cyanosis, good pulses bilaterally - Labs CBC & Chem 7: 04/29/22 07:40 04/29/22 07:40 Labs: Abnormal Lab Results - Last 24 Hours (Table) 04/28/22 04/28/22 04/28/22 Range/Units 13:20 14:22 15:24 WBC (3.8-10.6) k/uL RBC (3.80-5.40) m/uL Hgb (11.4-16.0) gm/dL Hct (34.0-46.0) % MCHC (31.0-37.0) g/dL RDW (11.5-15.5) % Neutrophils # (Manual) (1.3-7.7) k/uL Lymphocytes # (Manual) (1.0-4.8) k/uL Metamyelocytes # (Man) (0) k/uL Myelocytes # (Manual) (0) k/uL Potassium (3.5-5.1) mmol/L Chloride (98-107) mmol/L BUN (7-17) mg/dL Creatinine (0.52-1.04) mg/dL Glucose (74-99) mg/dL POC Glucose (mg/dL) 364 H 371 H 403 H (70-110) mg/dL Magnesium (1.6-2.3) mg/dL Delta Bilirubin (0.0-0.2) mg/dL AST (14-36) U/L Total Protein (6.3-8.2) g/dL Albumin (3.5-5.0) g/dL 04/28/22 04/28/22 04/28/22 Range/Units 16:23 17:19 18:21 WBC (3.8-10.6) k/uL RBC (3.80-5.40) m/uL Hgb (11.4-16.0) gm/dL Hct (34.0-46.0) % MCHC (31.0-37.0) g/dL RDW (11.5-15.5) % Neutrophils # (Manual) (1.3-7.7) k/uL Lymphocytes # (Manual) (1.0-4.8) k/uL Metamyelocytes # (Man) (0) k/uL Myelocytes # (Manual) (0) k/uL Potassium (3.5-5.1) mmol/L Chloride (98-107) mmol/L BUN (7-17) mg/dL Creatinine (0.52-1.04) mg/dL Glucose (74-99) mg/dL POC Glucose (mg/dL) 373 H 368 H 392 H (70-110) mg/dL Magnesium (1.6-2.3) mg/dL Delta Bilirubin (0.0-0.2) mg/dL AST (14-36) U/L Total Protein (6.3-8.2) g/dL Albumin (3.5-5.0) g/dL 04/28/22 04/28/22 04/28/22 Range/Units 19:44 20:49 21:57 WBC (3.8-10.6) k/uL RBC (3.80-5.40) m/uL Hgb (11.4-16.0) gm/dL Hct (34.0-46.0) % MCHC (31.0-37.0) g/dL RDW (11.5-15.5) % Neutrophils # (Manual) (1.3-7.7) k/uL Lymphocytes # (Manual) (1.0-4.8) k/uL Metamyelocytes # (Man) (0) k/uL Myelocytes # (Manual) (0) k/uL Potassium (3.5-5.1) mmol/L Chloride (98-107) mmol/L BUN (7-17) mg/dL Creatinine (0.52-1.04) mg/dL Glucose (74-99) mg/dL POC Glucose (mg/dL) 402 H 326 H 269 H (70-110) mg/dL Magnesium (1.6-2.3) mg/dL Delta Bilirubin (0.0-0.2) mg/dL AST (14-36) U/L Total Protein (6.3-8.2) g/dL Albumin (3.5-5.0) g/dL 04/28/22 04/28/22 04/29/22 Range/Units 23:00 23:58 03:02 WBC (3.8-10.6) k/uL RBC (3.80-5.40) m/uL Hgb (11.4-16.0) gm/dL Hct (34.0-46.0) % MCHC (31.0-37.0) g/dL RDW (11.5-15.5) % Neutrophils # (Manual) (1.3-7.7) k/uL Lymphocytes # (Manual) (1.0-4.8) k/uL Metamyelocytes # (Man) (0) k/uL Myelocytes # (Manual) (0) k/uL Potassium (3.5-5.1) mmol/L Chloride (98-107) mmol/L BUN (7-17) mg/dL Creatinine (0.52-1.04) mg/dL Glucose (74-99) mg/dL POC Glucose (mg/dL) 223 H 153 H 170 H (70-110) mg/dL Magnesium (1.6-2.3) mg/dL Delta Bilirubin (0.0-0.2) mg/dL AST (14-36) U/L Total Protein (6.3-8.2) g/dL Albumin (3.5-5.0) g/dL 04/29/22 04/29/22 04/29/22 Range/Units 04:03 05:00 06:01 WBC (3.8-10.6) k/uL RBC (3.80-5.40) m/uL Hgb (11.4-16.0) gm/dL Hct (34.0-46.0) % MCHC (31.0-37.0) g/dL RDW (11.5-15.5) % Neutrophils # (Manual) (1.3-7.7) k/uL Lymphocytes # (Manual) (1.0-4.8) k/uL Metamyelocytes # (Man) (0) k/uL Myelocytes # (Manual) (0) k/uL Potassium (3.5-5.1) mmol/L Chloride (98-107) mmol/L BUN (7-17) mg/dL Creatinine (0.52-1.04) mg/dL Glucose (74-99) mg/dL POC Glucose (mg/dL) 182 H 199 H 198 H (70-110) mg/dL Magnesium (1.6-2.3) mg/dL Delta Bilirubin (0.0-0.2) mg/dL AST (14-36) U/L Total Protein (6.3-8.2) g/dL Albumin (3.5-5.0) g/dL 04/29/22 04/29/22 04/29/22 Range/Units 06:56 07:40 07:40 WBC 16.5 H (3.8-10.6) k/uL RBC 3.02 L (3.80-5.40) m/uL Hgb 8.8 L (11.4-16.0) gm/dL Hct 29.2 L (34.0-46.0) % MCHC 30.0 L (31.0-37.0) g/dL RDW 15.8 H (11.5-15.5) % Neutrophils # (Manual) 15.00 H (1.3-7.7) k/uL Lymphocytes # (Manual) 0.99 L (1.0-4.8) k/uL Metamyelocytes # (Man) 0.17 H (0) k/uL Myelocytes # (Manual) 0.33 H (0) k/uL Potassium 3.3 L (3.5-5.1) mmol/L Chloride 97 L (98-107) mmol/L BUN 47 H (7-17) mg/dL Creatinine 1.24 H (0.52-1.04) mg/dL Glucose 125 H (74-99) mg/dL POC Glucose (mg/dL) 164 H (70-110) mg/dL Magnesium 1.5 L (1.6-2.3) mg/dL Delta Bilirubin 0.3 H (0.0-0.2) mg/dL AST 12 L (14-36) U/L Total Protein 5.1 L (6.3-8.2) g/dL Albumin 2.8 L (3.5-5.0) g/dL 04/29/22 04/29/22 04/29/22 Range/Units 09:02 11:56 12:52 WBC (3.8-10.6) k/uL RBC (3.80-5.40) m/uL Hgb (11.4-16.0) gm/dL Hct (34.0-46.0) % MCHC (31.0-37.0) g/dL RDW (11.5-15.5) % Neutrophils # (Manual) (1.3-7.7) k/uL Lymphocytes # (Manual) (1.0-4.8) k/uL Metamyelocytes # (Man) (0) k/uL Myelocytes # (Manual) (0) k/uL Potassium (3.5-5.1) mmol/L Chloride (98-107) mmol/L BUN (7-17) mg/dL Creatinine (0.52-1.04) mg/dL Glucose (74-99) mg/dL POC Glucose (mg/dL) 156 H 130 H 183 H (70-110) mg/dL Magnesium (1.6-2.3) mg/dL Delta Bilirubin (0.0-0.2) mg/dL AST (14-36) U/L Total Protein (6.3-8.2) g/dL Albumin (3.5-5.0) g/dL Assessment and Plan Assessment: Impression: Acute on chronic hypoxic respiratory failure Acute exacerbation of COPD Acute on chronic congestive heart failure with preserved ejection fraction Acute kidney injury, improving since admission. Benign essential hypertension Moderate aortic stenosis Ex-smoker quit 3 years ago. Type 2 diabetes Generalized anxiety disorder Chronic cellulitis of lower extremities. Recommendation: Continue bronchodilators Titrate FiO2 down and consider placing the patient on high flow nasal cannula, transition from airvo Continue steroids. Keep BiPAP at bedside. Continue diuretics Continue antibiotics Continue GI and DVT prophylaxis Continue insulin as per protocol. Overall prognosis remains guarded. Not quite ready for discharge planning. We'll continue to follow Time with Patient: Less than 30
[2022-04-29 13:43] LABS: Glucose,Whole Blood 172 mg/dL (70-110)
[2022-04-29 14:13] LABS: Glucose,Whole Blood 175 mg/dL (70-110)
--- NOTE | 2022-04-29 15:10 | P.PN ---
Subjective HISTORY OF PRESENT ILLNESS: This is a 71-year-old female who is a patient of Dr. Oh. Patient presented to the hospital with worsening shortness of breath. Patient is being treated for COPD and CHF. Patient examined this morning at the bedside. Patient denies chest pain or pressure. She reports shortness of breath. She is currently on a BiPAP. She reports improving lower extremity edema though she states her edema in her thighs seems to be unchanged. She remains on IV Lasix. Patient's kidney function remained stable with a creatinine of 1.4 today. 04/28/2022 Patient examined this morning at the bedside. Patient denies chest pain or pressure. SOB improving. Continues to have LE edema, more in her thighs. She remains on IV lasix. Creatinine stable at 1.3. Blood pressure elevated in the 160s. 04/29 Patient seen and examined. Patient continues to have good urine output with IV Lasix. Denies any chest pain or pressure. States she is slowly improving. Has 1+ lower extremity edema. Creatinine from today mildly improved to 1.2. PHYSICAL EXAM: VITAL SIGNS: Reviewed. GENERAL: Well-developed in no acute distress. NECK: Supple. No JVD or thyromegaly LUNGS: Respirations even and unlabored. Lungs diminished to auscultation bilaterally. HEART: Regular rate and rhythm. S1 and S2 heard. Systolic murmur noted. EXTREMITIES: Normal range of motion. No clubbing or cyanosis. Peripheral pulses intact. 1+ bilateral lower extremity edema, worse towards thighs. ASSESSMENT: Shortness of breath Acute exacerbation of COPD Acute on chronic heart failure with preserved ejection fraction Acute kidney injury, only improving Hypertension Diabetes Moderate aortic stenosis PLAN: Continue current cardiac medications Continue IV Lasix 40 mg every 12 hours Monitor kidney function Daily weights Accurate I&O Further recommendations pending patient's course Appears to be slowly improving with current regimen. Objective - Vital Signs Vital signs: Vital Signs Temp 98.5 F 04/29/22 11:48 Pulse 70 04/29/22 12:46 Resp 20 04/29/22 11:48 BP 147/62 04/29/22 11:48 Pulse Ox 97 04/29/22 13:03 FiO2 50 04/29/22 12:34 Intake & Output 04/28/22 04/29/22 04/29/22 18:59 06:59 18:59 Intake Total 430.813 113.563 408.983 Output Total 750 1650 Balance -319.187 113.563 -1241.017 Weight 72.575 kg Intake: IV 60.5 Insulin Regular 100 unit 60.5 In Sodium Chloride 0.9% 100 ml @ Titrate IV .Q0M KIET Rx#:[id number] Intake, IV Titration 72.813 113.563 108.483 Amount Insulin Regular 100 unit 72.813 113.563 58.483 In Sodium Chloride 0.9% 100 ml @ Titrate IV .Q0M KIET Rx#:[id number] cefTRIAXone 2 gm In 50 Sodium Chloride 0.9% 50 ml @ 100 mls/hr IVPB Q24HR KIET Rx#:[id number] Oral 358 240 Output: Urine 750 1650 Other: Voiding Method Diaper Diaper External Catheter External Catheter - Labs CBC & Chem 7: 04/29/22 07:40 04/29/22 07:40 Labs: Abnormal Lab Results - Last 24 Hours (Table) 04/28/22 04/28/22 04/28/22 Range/Units 15:24 16:23 17:19 WBC (3.8-10.6) k/uL RBC (3.80-5.40) m/uL Hgb (11.4-16.0) gm/dL Hct (34.0-46.0) % MCHC (31.0-37.0) g/dL RDW (11.5-15.5) % Neutrophils # (Manual) (1.3-7.7) k/uL Lymphocytes # (Manual) (1.0-4.8) k/uL Metamyelocytes # (Man) (0) k/uL Myelocytes # (Manual) (0) k/uL Potassium (3.5-5.1) mmol/L Chloride (98-107) mmol/L BUN (7-17) mg/dL Creatinine (0.52-1.04) mg/dL Glucose (74-99) mg/dL POC Glucose (mg/dL) 403 H 373 H 368 H (70-110) mg/dL Magnesium (1.6-2.3) mg/dL Delta Bilirubin (0.0-0.2) mg/dL AST (14-36) U/L Total Protein (6.3-8.2) g/dL Albumin (3.5-5.0) g/dL 04/28/22 04/28/22 04/28/22 Range/Units 18:21 19:44 20:49 WBC (3.8-10.6) k/uL RBC (3.80-5.40) m/uL Hgb (11.4-16.0) gm/dL Hct (34.0-46.0) % MCHC (31.0-37.0) g/dL RDW (11.5-15.5) % Neutrophils # (Manual) (1.3-7.7) k/uL Lymphocytes # (Manual) (1.0-4.8) k/uL Metamyelocytes # (Man) (0) k/uL Myelocytes # (Manual) (0) k/uL Potassium (3.5-5.1) mmol/L Chloride (98-107) mmol/L BUN (7-17) mg/dL Creatinine (0.52-1.04) mg/dL Glucose (74-99) mg/dL POC Glucose (mg/dL) 392 H 402 H 326 H (70-110) mg/dL Magnesium (1.6-2.3) mg/dL Delta Bilirubin (0.0-0.2) mg/dL AST (14-36) U/L Total Protein (6.3-8.2) g/dL Albumin (3.5-5.0) g/dL 04/28/22 04/28/22 04/28/22 Range/Units 21:57 23:00 23:58 WBC (3.8-10.6) k/uL RBC (3.80-5.40) m/uL Hgb (11.4-16.0) gm/dL Hct (34.0-46.0) % MCHC (31.0-37.0) g/dL RDW (11.5-15.5) % Neutrophils # (Manual) (1.3-7.7) k/uL Lymphocytes # (Manual) (1.0-4.8) k/uL Metamyelocytes # (Man) (0) k/uL Myelocytes # (Manual) (0) k/uL Potassium (3.5-5.1) mmol/L Chloride (98-107) mmol/L BUN (7-17) mg/dL Creatinine (0.52-1.04) mg/dL Glucose (74-99) mg/dL POC Glucose (mg/dL) 269 H 223 H 153 H (70-110) mg/dL Magnesium (1.6-2.3) mg/dL Delta Bilirubin (0.0-0.2) mg/dL AST (14-36) U/L Total Protein (6.3-8.2) g/dL Albumin (3.5-5.0) g/dL 04/29/22 04/29/22 04/29/22 Range/Units 03:02 04:03 05:00 WBC (3.8-10.6) k/uL RBC (3.80-5.40) m/uL Hgb (11.4-16.0) gm/dL Hct (34.0-46.0) % MCHC (31.0-37.0) g/dL RDW (11.5-15.5) % Neutrophils # (Manual) (1.3-7.7) k/uL Lymphocytes # (Manual) (1.0-4.8) k/uL Metamyelocytes # (Man) (0) k/uL Myelocytes # (Manual) (0) k/uL Potassium (3.5-5.1) mmol/L Chloride (98-107) mmol/L BUN (7-17) mg/dL Creatinine (0.52-1.04) mg/dL Glucose (74-99) mg/dL POC Glucose (mg/dL) 170 H 182 H 199 H (70-110) mg/dL Magnesium (1.6-2.3) mg/dL Delta Bilirubin (0.0-0.2) mg/dL AST (14-36) U/L Total Protein (6.3-8.2) g/dL Albumin (3.5-5.0) g/dL 04/29/22 04/29/22 04/29/22 Range/Units 06:01 06:56 07:40 WBC 16.5 H (3.8-10.6) k/uL RBC 3.02 L (3.80-5.40) m/uL Hgb 8.8 L (11.4-16.0) gm/dL Hct 29.2 L (34.0-46.0) % MCHC 30.0 L (31.0-37.0) g/dL RDW 15.8 H (11.5-15.5) % Neutrophils # (Manual) 15.00 H (1.3-7.7) k/uL Lymphocytes # (Manual) 0.99 L (1.0-4.8) k/uL Metamyelocytes # (Man) 0.17 H (0) k/uL Myelocytes # (Manual) 0.33 H (0) k/uL Potassium (3.5-5.1) mmol/L Chloride (98-107) mmol/L BUN (7-17) mg/dL Creatinine (0.52-1.04) mg/dL Glucose (74-99) mg/dL POC Glucose (mg/dL) 198 H 164 H (70-110) mg/dL Magnesium (1.6-2.3) mg/dL Delta Bilirubin (0.0-0.2) mg/dL AST (14-36) U/L Total Protein (6.3-8.2) g/dL Albumin (3.5-5.0) g/dL 04/29/22 04/29/22 04/29/22 Range/Units 07:40 09:02 11:56 WBC (3.8-10.6) k/uL RBC (3.80-5.40) m/uL Hgb (11.4-16.0) gm/dL Hct (34.0-46.0) % MCHC (31.0-37.0) g/dL RDW (11.5-15.5) % Neutrophils # (Manual) (1.3-7.7) k/uL Lymphocytes # (Manual) (1.0-4.8) k/uL Metamyelocytes # (Man) (0) k/uL Myelocytes # (Manual) (0) k/uL Potassium 3.3 L (3.5-5.1) mmol/L Chloride 97 L (98-107) mmol/L BUN 47 H (7-17) mg/dL Creatinine 1.24 H (0.52-1.04) mg/dL Glucose 125 H (74-99) mg/dL POC Glucose (mg/dL) 156 H 130 H (70-110) mg/dL Magnesium 1.5 L (1.6-2.3) mg/dL Delta Bilirubin 0.3 H (0.0-0.2) mg/dL AST 12 L (14-36) U/L Total Protein 5.1 L (6.3-8.2) g/dL Albumin 2.8 L (3.5-5.0) g/dL 04/29/22 04/29/22 04/29/22 Range/Units 12:52 13:42 14:11 WBC (3.8-10.6) k/uL RBC (3.80-5.40) m/uL Hgb (11.4-16.0) gm/dL Hct (34.0-46.0) % MCHC (31.0-37.0) g/dL RDW (11.5-15.5) % Neutrophils # (Manual) (1.3-7.7) k/uL Lymphocytes # (Manual) (1.0-4.8) k/uL Metamyelocytes # (Man) (0) k/uL Myelocytes # (Manual) (0) k/uL Potassium (3.5-5.1) mmol/L Chloride (98-107) mmol/L BUN (7-17) mg/dL Creatinine (0.52-1.04) mg/dL Glucose (74-99) mg/dL POC Glucose (mg/dL) 183 H 172 H 175 H (70-110) mg/dL Magnesium (1.6-2.3) mg/dL Delta Bilirubin (0.0-0.2) mg/dL AST (14-36) U/L Total Protein (6.3-8.2) g/dL Albumin (3.5-5.0) g/dL
[2022-04-29 15:13] LABS: Glucose,Whole Blood 161 mg/dL (70-110)
[2022-04-29 16:03] LABS: Glucose,Whole Blood 149 mg/dL (70-110)
[2022-04-29 18:03] LABS: Glucose,Whole Blood 220 mg/dL (70-110)
[2022-04-29] MEDS: INSULIN DETEMIR (LEVEMIR) 100 UNIT/ML SYR SQ SCH ×2 (18:19→21:08)
[2022-04-29 20:06] LABS: Glucose,Whole Blood 182 mg/dL (70-110)
[2022-04-29] MEDS: ARIPiprazole 5 MG TAB PO SCH (20:38)
[2022-04-29] MEDS: FERROUS SULFATE 325 MG TAB PO SCH (20:39)
[2022-04-29] MEDS: traZODone HCL 100 MG TAB PO SCH (20:39)
[2022-04-30] MEDS: methylPREDNISolone SOD SUCCI 125 MG/2 ML VIAL IV SCH ×5 (00:03→23:38)
[2022-04-30 02:11] LABS: Glucose,Whole Blood 211 mg/dL (70-110)
[2022-04-30] MEDS: LEVOTHYROXINE 100 MCG TAB PO SCH (06:06)
[2022-04-30 07:15] LABS: Glucose,Whole Blood 136 mg/dL (70-110)
[2022-04-30] MEDS: SYMBICORT 160-4.5 MCG INHALER INHALATION SCH ×2 (07:18→19:57)
[2022-04-30] MEDS: IPRATROPIUM-ALBUTEROL 3 ML NEB INHALATION PRN ×2 (07:18→11:09)
[2022-04-30] MEDS ORDERED: INSULIN ASPART (NovoLOG) 100 UNIT/ML VIAL SQ SCH (07:30)
[2022-04-30] MEDS: INSULIN ASPART (NovoLOG) 100 UNIT/ML VIAL SQ SCH ×6 (07:56→20:48)
[2022-04-30] MEDS: ATORVASTATIN 40 MG TAB PO SCH (08:41)
[2022-04-30] MEDS: METOPROLOL SUCCINATE (ER) 25 MG TAB.ER.24H PO SCH (08:41)
[2022-04-30] MEDS: allopurinoL 100 MG TAB PO SCH (08:41)
[2022-04-30] MEDS: HEPARIN SODIUM,PORCINE/PF 5,000 UNIT/0.5 ML SYRINGE SQ SCH ×2 (08:41→20:47)
[2022-04-30] MEDS: FUROSEMIDE 10 MG/ML 4 ML VIAL IV SCH ×2 (08:42→20:46)
[2022-04-30] MEDS: FAMOTIDINE 20 MG/2 ML VIAL IV SCH (08:42)
[2022-04-30] MEDS: CITALOPRAM HYDROBROMIDE 20 MG TAB PO SCH (08:42)
[2022-04-30] MEDS: HYDROcodone/APAP 7.5-325MG 1 EACH TAB PO PRN ×3 (08:43→20:47)
[2022-04-30] MEDS: amLODIPine 10 MG TAB PO SCH (08:51)
[2022-04-30 09:46] LABS: Albumin 2.9 g/dL (3.5-5.0); Bilirubin, Delta 0.3 mg/dL (0.0-0.2); Bilirubin,Unconjugated 0.2 mg/dL (0.0-1.1); Calcium 8.4 mg/dL (8.4-10.2); Magnesium 1.6 mg/dL (1.6-2.3); Potassium 4.3 mmol/L (3.5-5.1); Total Bilirubin 0.5 mg/dL (0.2-1.3); Total Protein 5.3 g/dL (6.3-8.2)
--- NOTE | 2022-04-30 09:52 | P.PN ---
Subjective Patient is a 71-year-old female with a known history of hypertension, hyperlipidemia, osteoarthritis, COPD and basal skin carcinoma of the eyelid, c hronic back pain and degenerative disc disease, anxiety/depression and previous history of smoking quit about 3 years ago presents to ER with complaints of worsening shortness of breath for the past 2 days. This has been associated with more frequent cough and and phlegm, although her cough is chronic but with recent worsening. She denies chest pain but she is complaining of from back pain and bilateral leg pain. Also patient has been complaining of from her lateral leg wounds with dressing in place. Patient refused to take off the dressing to check him. She denies vomiting or diarrhea. No urinary complaints. No headache or dizziness. No weakness or numbness No alcohol or illicit drugs daughter at bedside Patient is tachypneic at 22, blood pressure is 133/52 She's hypoxic. At home she is on 4 L oxygen. Her oxygen saturation is 94%. Her oxygen requirement increased to 8 during the evening. No fever. Labs show leukocytosis of 11.1. Hemoglobin 8.0. Platelets normal. INR normal at 1.1. Creatinine went up to 1.8, baseline 1.0-1.1 EKG showing normal sinus rhythm at [address]-T changes Chest x-ray: Cardiomegaly with increased interstitial markings suggesting [id number] interstitial edema bilaterally redemonstration. No significant change from most recent x-ray. Correlate for CHF (the actual image did not open for technical reasons) She was admitted to the hospital on October, January and March of this year. This is the fourth admission for similar conditions 04/26/2022 Patient sitting up in bed, awake, and mild or normal respiratory distress. Patient reports improvement in her breathing pattern however her oxygen requirements is currently up to 15 L/m nonrebreather. Repeat chest x-ray this morning showing possible CHF. Monitor input output and electrolytes and creatinine which is improving down to 1.4. Hemoglobin stable at 7.8 She remains on IV Solu-Medrol 60 mg and Lasix 40 mg 04/27/2022 Patient today condition is worse and she is dependent. November calcitonin is elevated. We will ask ceftriaxone 2 g. A ALLERGIC to penicillin which limits antibiotic choice. Continue also Zithromax. Continue with Lasix and Solu-Medrol Glucose is uncontrolled. Patient cannot tolerate diet because on BiPAP. Start insulin drip per protocol Collect sputum culture Discussed with bed side staff 04/28/2022 Patient is alert and awake today, she is able to come to gait and talk more easily. She still have some difficulty breathing. She is significantly hypoxic, she was BiPAP dependent yesterday and she was switched to high flow nasal cannula 45 L/m with 60% FiO2, so patient couldn't tolerate 50% of her diet today. Glucose controlled on insulin drip. Patient continue on Solu-Medrol, IV Lasix, and ceftriaxone Monitor labs in the morning Monitor blood pressure closely. 04/29/2022 Patient is starts feeling better today, even her oxygen requirements went down little bit 45/FiO2 of 50%, she is not on BiPAP currently. However she still significantly dyspneic and tachypneic. She still has some limited air entry and scattered wheezing but improvement compared for the last 2 days. She has less leg swelling. Labs reviewed than the looks stable. Creatinine improved to 1.2. Glucose controlled. Hemoglobin 8.8. WBC elevated well on steroids She is currently on Solu-Medrol 60 mg, Lasix 40 mg twice daily, insulin drip and ceftriaxone 04/30/2022 Patient breathing significantly improving today and her oxygen requirements is only 8 L/m compared to 45 L/m yesterday. Her insulin drip was stopped and switched to Levemir 10 units and 4 units with meals with close monitoring of her sugar. She remains on Solu-Medrol 60 mg, IV Lasix 40 mg and ceftriaxone. Blood pressure is better controlled. Patient looks pleasant and happy with her progress Objective - Vital Signs Vital signs: Vital Signs Temp 98.4 F 04/30/22 03:46 Pulse 70 04/30/22 07:31 Resp 18 04/30/22 03:46 BP 158/64 04/30/22 03:46 Pulse Ox 98 04/30/22 07:21 FiO2 50 04/29/22 12:34 Intake & Output 04/29/22 04/30/22 04/30/22 18:59 06:59 18:59 Intake Total 768.983 Output Total 1650 750 Balance -881.017 -750 Intake: IV 60.5 Insulin Regular 100 unit 60.5 In Sodium Chloride 0.9% 100 ml @ Titrate IV .Q0M KIET Rx#:[id number] Intake, IV Titration 108.483 Amount Insulin Regular 100 unit 58.483 In Sodium Chloride 0.9% 100 ml @ Titrate IV .Q0M KIET Rx#:[id number] cefTRIAXone 2 gm In 50 Sodium Chloride 0.9% 50 ml @ 100 mls/hr IVPB Q24HR KIET Rx#:[id number] Oral 600 Output: Urine 1650 750 Other: Voiding Method Diaper External Catheter - Exam --GENERAL: The patient is alert and awake looks tired and in respiratory distress requiring BiPAP, . Obese HEENT: Pupils are round and equally reacting to light. EOMI. No scleral icterus. No conjunctival pallor. Normocephalic, atraumatic. No pharyngeal erythema. No thyromegaly. CARDIOVASCULAR: S1 and S2 present. No murmurs, rubs, or gallops. -PULMONARY: Chest is clear to auscultation,Decreased air entry on both sides with minimal scattered wheezing. Bilateral crepitation ABDOMEN: Soft, nontender, nondistended, normoactive bowel sounds. No palpable organomegaly. MUSCULOSKELETAL: No joint swelling or deformity. -EXTREMITIES: No cyanosis, clubbing, 1+ bilateral pitting like edema NEUROLOGICAL: Gross neurological examination did not reveal any focal deficits. SKIN: No rashes. no petechiae. - Labs CBC & Chem 7: 04/29/22 07:40 04/30/22 08:02 Labs: Abnormal Lab Results - Last 24 Hours (Table) 04/29/22 04/29/22 04/29/22 Range/Units 07:40 07:40 11:56 WBC 16.5 H (3.8-10.6) k/uL RBC 3.02 L (3.80-5.40) m/uL Hgb 8.8 L (11.4-16.0) gm/dL Hct 29.2 L (34.0-46.0) % MCHC 30.0 L (31.0-37.0) g/dL RDW 15.8 H (11.5-15.5) % Neutrophils # (Manual) 15.00 H (1.3-7.7) k/uL Lymphocytes # (Manual) 0.99 L (1.0-4.8) k/uL Metamyelocytes # (Man) 0.17 H (0) k/uL Myelocytes # (Manual) 0.33 H (0) k/uL Potassium 3.3 L (3.5-5.1) mmol/L Chloride 97 L (98-107) mmol/L BUN 47 H (7-17) mg/dL Creatinine 1.24 H (0.52-1.04) mg/dL Glucose 125 H (74-99) mg/dL POC Glucose (mg/dL) 130 H (70-110) mg/dL Magnesium 1.5 L (1.6-2.3) mg/dL Delta Bilirubin 0.3 H (0.0-0.2) mg/dL AST 12 L (14-36) U/L Total Protein 5.1 L (6.3-8.2) g/dL Albumin 2.8 L (3.5-5.0) g/dL 04/29/22 04/29/22 04/29/22 Range/Units 12:52 13:42 14:11 WBC (3.8-10.6) k/uL RBC (3.80-5.40) m/uL Hgb (11.4-16.0) gm/dL Hct (34.0-46.0) % MCHC (31.0-37.0) g/dL RDW (11.5-15.5) % Neutrophils # (Manual) (1.3-7.7) k/uL Lymphocytes # (Manual) (1.0-4.8) k/uL Metamyelocytes # (Man) (0) k/uL Myelocytes # (Manual) (0) k/uL Potassium (3.5-5.1) mmol/L Chloride (98-107) mmol/L BUN (7-17) mg/dL Creatinine (0.52-1.04) mg/dL Glucose (74-99) mg/dL POC Glucose (mg/dL) 183 H 172 H 175 H (70-110) mg/dL Magnesium (1.6-2.3) mg/dL Delta Bilirubin (0.0-0.2) mg/dL AST (14-36) U/L Total Protein (6.3-8.2) g/dL Albumin (3.5-5.0) g/dL 04/29/22 04/29/22 04/29/22 Range/Units 15:04 16:00 18:02 WBC (3.8-10.6) k/uL RBC (3.80-5.40) m/uL Hgb (11.4-16.0) gm/dL Hct (34.0-46.0) % MCHC (31.0-37.0) g/dL RDW (11.5-15.5) % Neutrophils # (Manual) (1.3-7.7) k/uL Lymphocytes # (Manual) (1.0-4.8) k/uL Metamyelocytes # (Man) (0) k/uL Myelocytes # (Manual) (0) k/uL Potassium (3.5-5.1) mmol/L Chloride (98-107) mmol/L BUN (7-17) mg/dL Creatinine (0.52-1.04) mg/dL Glucose (74-99) mg/dL POC Glucose (mg/dL) 161 H 149 H 220 H (70-110) mg/dL Magnesium (1.6-2.3) mg/dL Delta Bilirubin (0.0-0.2) mg/dL AST (14-36) U/L Total Protein (6.3-8.2) g/dL Albumin (3.5-5.0) g/dL 04/29/22 04/30/22 04/30/22 Range/Units 20:03 02:09 07:13 WBC (3.8-10.6) k/uL RBC (3.80-5.40) m/uL Hgb (11.4-16.0) gm/dL Hct (34.0-46.0) % MCHC (31.0-37.0) g/dL RDW (11.5-15.5) % Neutrophils # (Manual) (1.3-7.7) k/uL Lymphocytes # (Manual) (1.0-4.8) k/uL Metamyelocytes # (Man) (0) k/uL Myelocytes # (Manual) (0) k/uL Potassium (3.5-5.1) mmol/L Chloride (98-107) mmol/L BUN (7-17) mg/dL Creatinine (0.52-1.04) mg/dL Glucose (74-99) mg/dL POC Glucose (mg/dL) 182 H 211 H 136 H (70-110) mg/dL Magnesium (1.6-2.3) mg/dL Delta Bilirubin (0.0-0.2) mg/dL AST (14-36) U/L Total Protein (6.3-8.2) g/dL Albumin (3.5-5.0) g/dL Assessment and Plan Assessment: Shortness of breath secondary to COPD and CHF.Pneumonia not entirely excluded although felt less likely Acute COPD exacerbation possible acute bilateral pneumonia. Possible community acquired Acute on chronic hypoxic respiratory failure secondary to above Acut the chronic diastolic CHF Acute kidney injury likely prerenal CKD stage IIIB Chronic hypoxic respiratory failure on 3-4 L oxygen via nasal cannula. Morbid obesity with BMI 41.9 Deconditioning related to multiple hospitalization Hypertension Hypokalemia Diabetes type 2 [id number] Osteoarthritis Hypothyroidism History of cellulitis of legs Obesity with BMI of 32.3 Plan: This is a pleasant 71 years old female who presents with dyspnea mostly COPD and CHF Continue with Solu-Medrol Continue with Zithromax and ceftriaxone Start Lasix 40 mg twice daily. Cardiology and pulmonary consult Oxygen as needed and breathing treatment Labs and medication were reviewed.. Continue same treatment. Continue with symptomatic treatment. Resume home medication. Monitor lytes and vitals. DVT and GI prophylaxis. Further recommendations as per clinical course of the patient DVT prophylaxis: Subcutaneous heparin GI Prophylaxis: Pepcid PT/OT: Pending Short-term Prognosis is guarded, long-term prognosis is also poor given her complex and multiple medical problems with recurrent hospitalization. If patient does not improve then we would recommend more palliative approach of the treatment
[2022-04-30 09:55] LABS: HCT 31.1 % (34.0-46.0); HGB 9.3 gm/dL (11.4-16.0); Hypochromasia Marked; MCH 29.1 pg (25.0-35.0); Mean Platelet Volume 8.5; Platelet Count 345 k/uL (150-450); RBC 3.21 m/uL (3.80-5.40)
[2022-04-30 11:02] LABS: Band Neutrophils % 3 %; Lymphocytes # (M) 1.12 k/uL (1.0-4.8); Metamyelocytes # (M) 0.32 k/uL (0); Metamyelocytes % 2 %; Monocytes # (M) 0.64 k/uL (0-1.0); Myelocytes # (M) 0.64 k/uL (0); Myelocytes % 4 %; Neutrophils % (M) 82 %; Nucleated Red Blood Cells 0 /100 WBC (0-0); Total Cells Counted 200
[2022-04-30 12:04] LABS: Glucose,Whole Blood 245 mg/dL (70-110)
--- NOTE | 2022-04-30 13:13 | P.PN ---
Subjective Progress Note Date: 04/30/22 Principal diagnosis: Acute exacerbation of COPD This is a very pleasant 71-year-old female with a known history of hypertension, hyperlipidemia, osteoarthritis, COPD and basal skin carcinoma of the eyelid, chronic back pain and degenerative disc disease, anxiety/depression and previous history of smoking however quit 3 years ago. She is oxygen dependent on 4 L at home. She presents again to the emergency room with a two-day history of increasing shortness of breath, chest tightness and wheezing. Stating her O2 saturation was down to 75%. She does have a history of ventilatory dependent respiratory failure approximate 3 years ago. She follows with Dr. Cho in our office. She is maintained on DuoNeb inhalations, Symbicort, albuterol HFA. She was recently discharged from here for congestive heart failure. Today's chest x-ray shows cardiomegaly with increased interstitial markings and mild to moderate interstitial edema bilaterally redemonstrated no significant change compared to previous on 04/10/2022. She had been seen by cardiology last admission. White count 11.1. Hemoccult 8.0. Sodium 135. Potassium 4.8. BUN 44. Creatinine 1.83. Glucose 142. Troponin negative 1. She is currently on Lasix 40 mg IV every 12 hours, Symbicort, DuoNeb inhalations, IV Solu-Medrol. She is seen today in consultation in the emergency department. She is sitting up in the stretcher. Awake and alert in no acute distress. She is quite bronchus spastic and wheezy. She is dyspneic with conversation. Dyspneic with minimal exertion. Maintain O2 saturations in the 90s on 8 L high flow nasal cannula. Afebrile. Hemodynamically stable. The patient's Lasix #7 2021 in follow-up in the emergency department. She is awake and alert in no acute distress. Breathing easier today compared to yesterday. She is still on 15 L high flow alternating with BiPAP 10/5 and 80% FiO2. She is in sinus rhythm. She is dyspneic with normal conversation. Dyspneic with minimal exertion. White count 6.7. Hemoglobin 7.8. Platelets 277. Lymphocytes 0.3. Sedimentation 5. Potassium 5.4. BUN 45. Creatinine 1.49. Glucose 294. AST 11. ALT 13. ProBNP 14,500. She is continued on Symbicort, DuoNeb inhalations, IV Solu-Medrol. Remains on IV diuretics. No accurate I&O recorded. Heparin for DVT prophylaxis. The patient is seen today 04/27/2022 follow-up on the selective care unit. She is currently sitting up in bed. Awake and alert. She is still dyspneic with conversation. Dyspneic with minimal exertion. She is currently on IPAP 10/5 and 70% FiO2. She was on 15 L high flow nasal cannula for approximate 10 minutes and dropped in the mid 80s and oxygen saturation. She was short of breath. She is continued on Symbicort, DuoNeb inhalations, IV Solu-Medrol. Empiric antibiotics in the form of azithromycin. Heparin for DVT prophylaxis. Remains on IV diuretics Lasix 40 mg every 12 hours. White count 9.8. Hemoglobin 7.4. Platelets 314. Sodium 133. Potassium 5.1. Chloride 98. Bicarb 25. BUN 46. Creatinine 1.40. Pro calcitonin 1.45. Reevaluated today on 04/28/2022, patient remains on the selective care unit, she seems to be calm and quiet, patient is nonetheless on airvo at 70% FiO2, and flow of 45 L/m. Patient is more comfortable with a airvo then she was on BiPAP, he seems to be quite comfortable and not in distress. And her O2 saturation is a 100%. Hence her FiO2 and her flow rate could be titrated down to maintain O2 saturation just above 90%. Patient continues to have BiPAP at bedside. WBC count is 10.1 hemoglobin 7.9 lites are normal renal profile is improving creatinine down to 1.30 from 1.83 on admission. Follow-up chest x-ray 2 days ago showed cardiomegaly and mild pulmonary vascular congestion with basilar atel ectasis, possible infiltrates. Reevaluated today on 04/29/2022, patient remains in the selective care unit, patient remains on airvo she seems to be quite calm, feeling better, and my plan is to change airvo to high flow nasal cannula she is now on 50% FiO2 and 45 L/m flow. She does have BiPAP at bedside, but she seems to be more comfortable with airvo. Clinically better, however considering surgery requiring relatively high FiO2 and high flow, needs to be tapered down to her usual nasal cannula oxygen which is supposedly at 4 L/m WBC count is 16.5 hemoglobin is 8.8. Electrolytes are normal except for low potassium of 3.3 renal functioning has been gradually improving and she has a creatinine of 1.24 today compared to 1.83 on admission Pro calcitonin was relatively high on admission 1.97 and is trending down. Patient was reevaluated today on 04/30/2022, patient is feeling much better today, breathing a lot easier, almost near her baseline, however she remains on 6 L nasal cannula, O2 saturation 94%, she was on 8 L earlier this morning, patient is normally on 4 L of home. Hardly any cough no wheezing, on physical examination she had diminished breath sounds, no crackles or rhonchi or wheezes. WBC count today 16.0 hemoglobin 9.3 left. Normal renal profile is normal BUN is 50 creatinine 1.13. Patient is steadily improving, and I believe the patient could be considered for possible discharge planning in the next 24 hours if we could get her FiO2 down to 4 L on 5 L. Objective - Vital Signs Vital signs: Vital Signs Temp 98.4 F 04/30/22 08:00 Pulse 71 04/30/22 11:21 Resp 19 04/30/22 08:00 BP 166/66 04/30/22 08:00 Pulse Ox 94 L 04/30/22 11:11 FiO2 50 04/29/22 12:34 Intake & Output 04/29/22 04/30/22 04/30/22 18:59 06:59 18:59 Intake Total 768.983 Output Total 1323 648 5465 Balance -881.017 -750 -1900 Intake: IV 60.5 Insulin Regular 100 unit 60.5 In Sodium Chloride 0.9% 100 ml @ Titrate IV .Q0M KIET Rx#:[id number] Intake, IV Titration 108.483 Amount Insulin Regular 100 unit 58.483 In Sodium Chloride 0.9% 100 ml @ Titrate IV .Q0M KIET Rx#:[id number] cefTRIAXone 2 gm In 50 Sodium Chloride 0.9% 50 ml @ 100 mls/hr IVPB Q24HR KIET Rx#:[id number] Oral 600 Output: Urine 0323 551 2716 Other: Voiding Method Diaper Diaper External Catheter External Catheter - Exam GENERAL EXAM: Revealed a 71-year-old female, obese, 6 L nasal cannula HEAD: Normocephalic. Patient looks cushingoid. EYES: Normal reaction of pupils, equal size. NOSE: Clear with pink turbinates. THROAT: No erythema or exudates. NECK: No masses, no JVD. CHEST: No chest wall deformity. LUNGS: Diminished breath sound at the bases no crackles or rhonchi or wheezes CVS: Distant S1 and S2, no S3 gallop. ABDOMEN: Obese, soft, nontender, no megaly, no rebound. SKIN: No rashes CENTRAL NERVOUS SYSTEM: Alert and oriented 3, no gross focal deficits. EXTREMITIES: Trace of bipedal, no cyanosis, good pulses bilaterally - Labs CBC & Chem 7: 04/30/22 08:02 04/30/22 08:02 Labs: Abnormal Lab Results - Last 24 Hours (Table) 04/29/22 04/29/22 04/29/22 Range/Units 13:42 14:11 15:04 WBC (3.8-10.6) k/uL RBC (3.80-5.40) m/uL Hgb (11.4-16.0) gm/dL Hct (34.0-46.0) % MCHC (31.0-37.0) g/dL RDW (11.5-15.5) % Neutrophils # (Manual) (1.3-7.7) k/uL Metamyelocytes # (Man) (0) k/uL Myelocytes # (Manual) (0) k/uL Chloride (98-107) mmol/L BUN (7-17) mg/dL Creatinine (0.52-1.04) mg/dL Glucose (74-99) mg/dL POC Glucose (mg/dL) 172 H 175 H 161 H (70-110) mg/dL Delta Bilirubin (0.0-0.2) mg/dL AST (14-36) U/L Total Protein (6.3-8.2) g/dL Albumin (3.5-5.0) g/dL 04/29/22 04/29/22 04/29/22 Range/Units 16:00 18:02 20:03 WBC (3.8-10.6) k/uL RBC (3.80-5.40) m/uL Hgb (11.4-16.0) gm/dL Hct (34.0-46.0) % MCHC (31.0-37.0) g/dL RDW (11.5-15.5) % Neutrophils # (Manual) (1.3-7.7) k/uL Metamyelocytes # (Man) (0) k/uL Myelocytes # (Manual) (0) k/uL Chloride (98-107) mmol/L BUN (7-17) mg/dL Creatinine (0.52-1.04) mg/dL Glucose (74-99) mg/dL POC Glucose (mg/dL) 149 H 220 H 182 H (70-110) mg/dL Delta Bilirubin (0.0-0.2) mg/dL AST (14-36) U/L Total Protein (6.3-8.2) g/dL Albumin (3.5-5.0) g/dL 04/30/22 04/30/22 04/30/22 Range/Units 02:09 07:13 08:02 WBC 16.0 H (3.8-10.6) k/uL RBC 3.21 L (3.80-5.40) m/uL Hgb 9.3 L (11.4-16.0) gm/dL Hct 31.1 L (34.0-46.0) % MCHC 30.0 L (31.0-37.0) g/dL RDW 16.0 H (11.5-15.5) % Neutrophils # (Manual) 13.60 H (1.3-7.7) k/uL Metamyelocytes # (Man) 0.32 H (0) k/uL Myelocytes # (Manual) 0.64 H (0) k/uL Chloride (98-107) mmol/L BUN (7-17) mg/dL Creatinine (0.52-1.04) mg/dL Glucose (74-99) mg/dL POC Glucose (mg/dL) 211 H 136 H (70-110) mg/dL Delta Bilirubin (0.0-0.2) mg/dL AST (14-36) U/L Total Protein (6.3-8.2) g/dL Albumin (3.5-5.0) g/dL 04/30/22 04/30/22 Range/Units 08:02 11:43 WBC (3.8-10.6) k/uL RBC (3.80-5.40) m/uL Hgb (11.4-16.0) gm/dL Hct (34.0-46.0) % MCHC (31.0-37.0) g/dL RDW (11.5-15.5) % Neutrophils # (Manual) (1.3-7.7) k/uL Metamyelocytes # (Man) (0) k/uL Myelocytes # (Manual) (0) k/uL Chloride 97 L (98-107) mmol/L BUN 50 H (7-17) mg/dL Creatinine 1.13 H (0.52-1.04) mg/dL Glucose 152 H (74-99) mg/dL POC Glucose (mg/dL) 245 H (70-110) mg/dL Delta Bilirubin 0.3 H (0.0-0.2) mg/dL AST 13 L (14-36) U/L Total Protein 5.3 L (6.3-8.2) g/dL Albumin 2.9 L (3.5-5.0) g/dL Assessment and Plan Assessment: Impression: Acute on chronic hypoxic respiratory failure Acute exacerbation of COPD Acute on chronic congestive heart failure with preserved ejection fraction Acute kidney injury, improving since admission. Benign essential hypertension Moderate aortic stenosis Ex-smoker quit 3 years ago. Type 2 diabetes Generalized anxiety disorder Chronic cellulitis of lower extremities. Recommendation: Continue bronchodilators Titrate FiO2 down possibly try 5 L nasal cannula and start considering discharge planning in the next 24 hours. Continue steroids. Continue diuretics Continue antibiotics Continue GI and DVT prophylaxis Continue insulin as per protocol. Possible discharge planning tomorrow. We'll continue to follow Time with Patient: Less than 30
--- NOTE | 2022-04-30 14:58 | P.PN ---
Subjective HISTORY OF PRESENT ILLNESS: This is a 71-year-old female who is a patient of Dr. Oh. Patient presented to the hospital with worsening shortness of breath. Patient is being treated for COPD and CHF. Patient examined this morning at the bedside. Patient denies chest pain or pressure. She reports shortness of breath. She is currently on a BiPAP. She reports improving lower extremity edema though she states her edema in her thighs seems to be unchanged. She remains on IV Lasix. Patient's kidney function remained stable with a creatinine of 1.4 today. 04/28/2022 Patient examined this morning at the bedside. Patient denies chest pain or pressure. SOB improving. Continues to have LE edema, more in her thighs. She remains on IV lasix. Creatinine stable at 1.3. Blood pressure elevated in the 160s. 04/29 Patient seen and examined. Patient continues to have good urine output with IV Lasix. Denies any chest pain or pressure. States she is slowly improving. Has 1+ lower extremity edema. Creatinine from today mildly improved to 1.2. 04/30 Patient seen and examined. White blood cell count 16.0, 9.3 hemoglobin, BUN 50, creatinine improved to 1.1. Patient remains on Lasix 40 mg IV twice a day. Has been improving day by day. Likely transition to oral Lasix tomorrow and likely discharge home tomorrow if doing well. PHYSICAL EXAM: VITAL SIGNS: Reviewed. GENERAL: Well-developed in no acute distress. NECK: Supple. No JVD or thyromegaly LUNGS: Respirations even and unlabored. Lungs diminished to auscultation bilaterally. HEART: Regular rate and rhythm. S1 and S2 heard. Systolic murmur noted. EXTREMITIES: Normal range of motion. No clubbing or cyanosis. Peripheral pulses intact. 1+ bilateral lower extremity edema, worse towards thighs. ASSESSMENT: Shortness of breath Acute exacerbation of COPD Acute on chronic heart failure with preserved ejection fraction Acute kidney injury, improving Hypertension Diabetes Moderate aortic stenosis PLAN: Continue current cardiac medications Continue IV Lasix 40 mg every 12 hours Monitor kidney function Daily weights Accurate I&O Further recommendations pending patient's course Continue with one more day of IV Lasix. Likely transition to oral Lasix tomorrow and possible discharge home tomorrow. Objective - Vital Signs Vital signs: Vital Signs Temp 98.4 F 04/30/22 12:00 Pulse 69 04/30/22 13:25 Resp 19 04/30/22 13:25 BP 161/66 04/30/22 12:00 Pulse Ox 96 04/30/22 12:00 FiO2 50 04/29/22 12:34 Intake & Output 04/29/22 04/30/22 04/30/22 18:59 06:59 18:59 Intake Total 768.983 Output Total 8244 274 9333 Balance -881.017 -750 -1900 Intake: IV 60.5 Insulin Regular 100 unit 60.5 In Sodium Chloride 0.9% 100 ml @ Titrate IV .Q0M KIET Rx#:[id number] Intake, IV Titration 108.483 Amount Insulin Regular 100 unit 58.483 In Sodium Chloride 0.9% 100 ml @ Titrate IV .Q0M KIET Rx#:[id number] cefTRIAXone 2 gm In 50 Sodium Chloride 0.9% 50 ml @ 100 mls/hr IVPB Q24HR KIET Rx#:[id number] Oral 600 Output: Urine 5321 565 2072 Other: Voiding Method Diaper Diaper External Catheter External Catheter - Labs CBC & Chem 7: 04/30/22 08:02 04/30/22 08:02 Labs: Abnormal Lab Results - Last 24 Hours (Table) 04/29/22 04/29/22 04/29/22 Range/Units 15:04 16:00 18:02 WBC (3.8-10.6) k/uL RBC (3.80-5.40) m/uL Hgb (11.4-16.0) gm/dL Hct (34.0-46.0) % MCHC (31.0-37.0) g/dL RDW (11.5-15.5) % Neutrophils # (Manual) (1.3-7.7) k/uL Metamyelocytes # (Man) (0) k/uL Myelocytes # (Manual) (0) k/uL Chloride (98-107) mmol/L BUN (7-17) mg/dL Creatinine (0.52-1.04) mg/dL Glucose (74-99) mg/dL POC Glucose (mg/dL) 161 H 149 H 220 H (70-110) mg/dL Delta Bilirubin (0.0-0.2) mg/dL AST (14-36) U/L Total Protein (6.3-8.2) g/dL Albumin (3.5-5.0) g/dL 04/29/22 04/30/22 04/30/22 Range/Units 20:03 02:09 07:13 WBC (3.8-10.6) k/uL RBC (3.80-5.40) m/uL Hgb (11.4-16.0) gm/dL Hct (34.0-46.0) % MCHC (31.0-37.0) g/dL RDW (11.5-15.5) % Neutrophils # (Manual) (1.3-7.7) k/uL Metamyelocytes # (Man) (0) k/uL Myelocytes # (Manual) (0) k/uL Chloride (98-107) mmol/L BUN (7-17) mg/dL Creatinine (0.52-1.04) mg/dL Glucose (74-99) mg/dL POC Glucose (mg/dL) 182 H 211 H 136 H (70-110) mg/dL Delta Bilirubin (0.0-0.2) mg/dL AST (14-36) U/L Total Protein (6.3-8.2) g/dL Albumin (3.5-5.0) g/dL 04/30/22 04/30/22 04/30/22 Range/Units 08:02 08:02 11:43 WBC 16.0 H (3.8-10.6) k/uL RBC 3.21 L (3.80-5.40) m/uL Hgb 9.3 L (11.4-16.0) gm/dL Hct 31.1 L (34.0-46.0) % MCHC 30.0 L (31.0-37.0) g/dL RDW 16.0 H (11.5-15.5) % Neutrophils # (Manual) 13.60 H (1.3-7.7) k/uL Metamyelocytes # (Man) 0.32 H (0) k/uL Myelocytes # (Manual) 0.64 H (0) k/uL Chloride 97 L (98-107) mmol/L BUN 50 H (7-17) mg/dL Creatinine 1.13 H (0.52-1.04) mg/dL Glucose 152 H (74-99) mg/dL POC Glucose (mg/dL) 245 H (70-110) mg/dL Delta Bilirubin 0.3 H (0.0-0.2) mg/dL AST 13 L (14-36) U/L Total Protein 5.3 L (6.3-8.2) g/dL Albumin 2.9 L (3.5-5.0) g/dL
[2022-04-30 16:33] LABS: Glucose,Whole Blood 265 mg/dL (70-110)
[2022-04-30 19:51] LABS: Glucose,Whole Blood 386 mg/dL (70-110)
[2022-04-30] MEDS: ARIPiprazole 5 MG TAB PO SCH (20:47)
[2022-04-30] MEDS: INSULIN DETEMIR (LEVEMIR) 100 UNIT/ML SYR SQ SCH (20:48)
[2022-04-30] MEDS: traZODone HCL 100 MG TAB PO SCH (20:48)
[2022-04-30 22:11] VITALS: RESP 18
[2022-05-01] MEDS: LEVOTHYROXINE 100 MCG TAB PO SCH (05:32)
[2022-05-01] MEDS: methylPREDNISolone SOD SUCCI 125 MG/2 ML VIAL IV SCH ×2 (05:32→12:14)
[2022-05-01 06:52] LABS: Anisocytosis Slight; HCT 30.8 % (34.0-46.0); HGB 9.4 gm/dL (11.4-16.0); Hypochromasia Marked; MCH 29.3 pg (25.0-35.0); MCHC 30.4 g/dL (31.0-37.0); MCV 96.3 fL (80.0-100.0); Mean Platelet Volume 7.1; Platelet Count 362 k/uL (150-450); WBC 21.4 k/uL (3.8-10.6)
[2022-05-01 07:05] LABS: Calcium 8.2 mg/dL (8.4-10.2); Potassium 4.2 mmol/L (3.5-5.1)
[2022-05-01 07:08] LABS: Glucose,Whole Blood 218 mg/dL (70-110)
[2022-05-01 07:50] LABS: Band Neutrophils % 1 %; Lymphocytes # (M) 1.07 k/uL (1.0-4.8); Metamyelocytes # (M) 0.64 k/uL (0); Metamyelocytes % 3 %; Monocytes # (M) 1.07 k/uL (0-1.0); Myelocytes # (M) 0.86 k/uL (0); Myelocytes % 4 %; Neutrophils % (M) 84 %; Nucleated Red Blood Cells 0 /100 WBC (0-0); Total Cells Counted 200
[2022-05-01] MEDS: FAMOTIDINE 20 MG/2 ML VIAL IV SCH (08:05)
[2022-05-01] MEDS: amLODIPine 10 MG TAB PO SCH (08:05)
[2022-05-01] MEDS: ATORVASTATIN 40 MG TAB PO SCH (08:05)
[2022-05-01] MEDS: FUROSEMIDE 10 MG/ML 4 ML VIAL IV SCH (08:05)
[2022-05-01] MEDS: IPRATROPIUM-ALBUTEROL 3 ML NEB INHALATION PRN ×2 (08:05→11:37)
[2022-05-01] MEDS: SYMBICORT 160-4.5 MCG INHALER INHALATION SCH (08:05)
[2022-05-01] MEDS: CITALOPRAM HYDROBROMIDE 20 MG TAB PO SCH (08:05)
[2022-05-01] MEDS: allopurinoL 100 MG TAB PO SCH (08:05)
[2022-05-01] MEDS: METOPROLOL SUCCINATE (ER) 25 MG TAB.ER.24H PO SCH (08:05)
[2022-05-01] MEDS: HYDROcodone/APAP 7.5-325MG 1 EACH TAB PO PRN (08:05)
[2022-05-01] MEDS: INSULIN ASPART (NovoLOG) 100 UNIT/ML VIAL SQ SCH ×4 (08:06→12:14)
[2022-05-01] MEDS: HEPARIN SODIUM,PORCINE/PF 5,000 UNIT/0.5 ML SYRINGE SQ SCH (08:33)
--- NOTE | 2022-05-01 09:37 | P.PN ---
Subjective This is a 71-year-old female with a past medical history significant for congestive heart failure, hypertension, hyperlipidemia, diabetes, and valvular heart disease. She is a patient of Dr. Oh. Patient presented to the hospital with worsening shortness of breath. Patient is being treated for COPD and CHF. 05/01 Patient seen and examined, at bedside, feeling well. No shortness of breath or chest pain. Feels well to go home today. White blood cell count 21.0, 9.4 hemoglobin, BUN 43, creatinine improved to 1.01. Patient remains on Lasix 40 mg IV twice a day. Has been improving day by day. Vitals signs are stable. PHYSICAL EXAM: VITAL SIGNS: Reviewed. GENERAL: Well-developed in no acute distress. NECK: Supple. No JVD or thyromegaly LUNGS: Respirations even and unlabored. Lungs diminished to auscultation bilaterally. HEART: Regular rate and rhythm. S1 and S2 heard. Systolic murmur noted. EXTREMITIES: Normal range of motion. No clubbing or cyanosis. Peripheral pulses intact. 1+ bilateral lower extremity edema, worse towards thighs. ASSESSMENT: Shortness of breath Acute exacerbation of COPD Acute on chronic heart failure with preserved ejection fraction Acute kidney injury, improving Hypertension Diabetes Moderate aortic stenosis PLAN: Transition to PO Lasix 40mg BID Continue current cardiac medications, amlodipine 10 mg, atorvastatin 40 mg daily, metoprolol succinate 25 mg daily From cardiology perspective, patient stable to be discharged home. Follow up outpatient with Dr. Oh Nurse practitioner note has been reviewed by physician. Signing provider agrees with the documented findings, assessment, and plan of care. Objective - Vital Signs Vital signs: Vital Signs Temp 98.4 F 05/01/22 03:53 Pulse 76 05/01/22 03:53 Resp 18 05/01/22 03:53 BP 152/62 05/01/22 03:53 Pulse Ox 96 05/01/22 03:53 FiO2 50 04/29/22 12:34 Intake & Output 04/30/22 05/01/22 05/01/22 18:59 06:59 18:59 Intake Total 180 118 Output Total 2250 500 Balance -2069 -500 118 Intake: Oral 180 118 Output: Urine 2250 500 Other: Voiding Method Diaper Diaper External Catheter External Catheter # Bowel Movements 1 - Labs CBC & Chem 7: 05/01/22 06:29 05/01/22 06:29 Labs: Abnormal Lab Results - Last 24 Hours (Table) 04/30/22 04/30/22 04/30/22 Range/Units 08:02 08:02 11:43 WBC 16.0 H (3.8-10.6) k/uL RBC 3.21 L (3.80-5.40) m/uL Hgb 9.3 L (11.4-16.0) gm/dL Hct 31.1 L (34.0-46.0) % MCHC 30.0 L (31.0-37.0) g/dL RDW 16.0 H (11.5-15.5) % Neutrophils # (Manual) 13.60 H (1.3-7.7) k/uL Monocytes # (Manual) (0-1.0) k/uL Metamyelocytes # (Man) 0.32 H (0) k/uL Myelocytes # (Manual) 0.64 H (0) k/uL Sodium (137-145) mmol/L Chloride 97 L (98-107) mmol/L Carbon Dioxide (22-30) mmol/L BUN 50 H (7-17) mg/dL Creatinine 1.13 H (0.52-1.04) mg/dL Glucose 152 H (74-99) mg/dL POC Glucose (mg/dL) 245 H (70-110) mg/dL Calcium (8.4-10.2) mg/dL Delta Bilirubin 0.3 H (0.0-0.2) mg/dL AST 13 L (14-36) U/L Total Protein 5.3 L (6.3-8.2) g/dL Albumin 2.9 L (3.5-5.0) g/dL 04/30/22 04/30/22 05/01/22 Range/Units 16:32 19:44 06:29 WBC 21.4 H (3.8-10.6) k/uL RBC 3.20 L (3.80-5.40) m/uL Hgb 9.4 L (11.4-16.0) gm/dL Hct 30.8 L (34.0-46.0) % MCHC 30.4 L (31.0-37.0) g/dL RDW 16.0 H (11.5-15.5) % Neutrophils # (Manual) 18.10 H (1.3-7.7) k/uL Monocytes # (Manual) 1.07 H (0-1.0) k/uL Metamyelocytes # (Man) 0.64 H (0) k/uL Myelocytes # (Manual) 0.86 H (0) k/uL Sodium (137-145) mmol/L Chloride (98-107) mmol/L Carbon Dioxide (22-30) mmol/L BUN (7-17) mg/dL Creatinine (0.52-1.04) mg/dL Glucose (74-99) mg/dL POC Glucose (mg/dL) 265 H 386 H (70-110) mg/dL Calcium (8.4-10.2) mg/dL Delta Bilirubin (0.0-0.2) mg/dL AST (14-36) U/L Total Protein (6.3-8.2) g/dL Albumin (3.5-5.0) g/dL 05/01/22 05/01/22 Range/Units 06:29 07:06 WBC (3.8-10.6) k/uL RBC (3.80-5.40) m/uL Hgb (11.4-16.0) gm/dL Hct (34.0-46.0) % MCHC (31.0-37.0) g/dL RDW (11.5-15.5) % Neutrophils # (Manual) (1.3-7.7) k/uL Monocytes # (Manual) (0-1.0) k/uL Metamyelocytes # (Man) (0) k/uL Myelocytes # (Manual) (0) k/uL Sodium 133 L (137-145) mmol/L Chloride 93 L (98-107) mmol/L Carbon Dioxide 33 H (22-30) mmol/L BUN 43 H (7-17) mg/dL Creatinine (0.52-1.04) mg/dL Glucose 214 H (74-99) mg/dL POC Glucose (mg/dL) 218 H (70-110) mg/dL Calcium 8.2 L (8.4-10.2) mg/dL Delta Bilirubin (0.0-0.2) mg/dL AST (14-36) U/L Total Protein (6.3-8.2) g/dL Albumin (3.5-5.0) g/dL
[2022-05-01 12:05] LABS: Glucose,Whole Blood 388 mg/dL (70-110)
[2022-05-01 13:02] VITALS: BP 154/87; PULSE 80; TEMP 97.9
--- NOTE | 2022-05-01 13:40 | P.DS ---
Providers Date of admission: 04/25/22 12:46 Expected date of discharge: 05/01/22 Attending physician: Helga Rivera Consults: 04/25/22 12:42 Consult Physician Routine Consulting Provider: Noah De Jesus Consult Reason/Comments: chf Do you want consulting provider notified?: Yes Consult Physician Routine Consulting Provider: Oliva Silveira Consult Reason/Comments: copd Do you want consulting provider notified?: Yes Primary care physician: Physician Nonstaff Hospital Course: Discharge diagnoses Shortness of breath secondary to COPD and CHF. Acute COPD exacerbation bilateral pneumonia. Acute on chronic hypoxic respiratory failure secondary to above Acute on chronic diastolic CHF Acute kidney injury likely prerenal CKD stage IIIB Chronic hypoxic respiratory failure on 3-4 L oxygen via nasal cannula. Morbid obesity with BMI 41.9 Deconditioning related to multiple hospitalization Hypertension Hypokalemia Diabetes type 2 [id number] Osteoarthritis Hypothyroidism History of cellulitis of legs Obesity with BMI of 32.3 Plan: Patient being discharged on prednisone taper Cardiology change Lasix to 40 mg twice a day Outpatient follow-up with cardiology and pulmonology Hospital course Patient is a 71-year-old female with a known history of hypertension, hyperlipidemia, osteoarthritis, COPD and basal skin carcinoma of the eyelid, chronic back pain and degenerative disc disease, anxiety/depression and previous history of smoking quit about 3 years ago presents to ER with complaints of worsening shortness of breath for the past 2 days. This has been associated with more frequent cough and and phlegm, although her cough is chronic but with recent worsening. She denies chest pain but she is complaining of from back pain and bilateral leg pain. Also patient has been complaining of from her lateral leg wounds with dressing in place. Patient refused to take off the dressing to check him. She denies vomiting or diarrhea. No urinary complaints. No headache or dizziness. No weakness or numbness No alcohol or illicit drugs daughter at bedside Patient is tachypneic at 22, blood pressure is 133/52 She's hypoxic. At home she is on 4 L oxygen. Her oxygen saturation is 94%. Her oxygen requirement increased to 8 during the evening. No fever. Labs show leukocytosis of 11.1. Hemoglobin 8.0. Platelets normal. INR normal at 1.1. Creatinine went up to 1.8, baseline 1.0-1.1 EKG showing normal sinus rhythm at [address]-T changes Chest x-ray: Cardiomegaly with increased interstitial markings suggesting [id number] interstitial edema bilaterally redemonstration. No significant change from most recent x-ray. Correlate for CHF (the actual image did not open for technical reasons) She was admitted to the hospital on October, January and March of this year. This is the fourth admission for similar conditions 04/26/2022 Patient sitting up in bed, awake, and mild or normal respiratory distress. Patient reports improvement in her breathing pattern however her oxygen requirements is currently up to 15 L/m nonrebreather. Repeat chest x-ray this morning showing possible CHF. Monitor input output and electrolytes and creatinine which is improving down to 1.4. Hemoglobin stable at 7.8 She remains on IV Solu-Medrol 60 mg and Lasix 40 mg 04/27/2022 Patient today condition is worse and she is dependent. November calcitonin is elevated. We will ask ceftriaxone 2 g. A ALLERGIC to penicillin which limits antibiotic choice. Continue also Zithromax. Continue with Lasix and Solu-Medrol Glucose is uncontrolled. Patient cannot tolerate diet because on BiPAP. Start insulin drip per protocol Collect sputum culture Discussed with bed side staff 04/28/2022 Patient is alert and awake today, she is able to come to gait and talk more easily. She still have some difficulty breathing. She is significantly hypoxic, she was BiPAP dependent yesterday and she was switched to high flow nasal cannula 45 L/m with 60% FiO2, so patient couldn't tolerate 50% of her diet today. Glucose controlled on insulin drip. Patient continue on Solu-Medrol, IV Lasix, and ceftriaxone Monitor labs in the morning Monitor blood pressure closely. 04/29/2022 Patient is starts feeling better today, even her oxygen requirements went down little bit 45/FiO2 of 50%, she is not on BiPAP currently. However she still significantly dyspneic and tachypneic. She still has some limited air entry and scattered wheezing but improvement compared for the last 2 days. She has less leg swelling. Labs reviewed than the looks stable. Creatinine improved to 1.2. Glucose controlled. Hemoglobin 8.8. WBC elevated well on steroids She is currently on Solu-Medrol 60 mg, Lasix 40 mg twice daily, insulin drip and ceftriaxone 04/30/2022 Patient breathing significantly improving today and her oxygen requirements is only 8 L/m compared to 45 L/m yesterday. Her insulin drip was stopped and switched to Levemir 10 units and 4 units with meals with close monitoring of her sugar. She remains on Solu-Medrol 60 mg, IV Lasix 40 mg and ceftriaxone. Blood pressure is better controlled. Patient looks pleasant and happy with her progress 05/01 Patient being discharged on prednisone taper Cardiology change Lasix to 40 mg twice a day Outpatient follow-up with cardiology and pulmonology Plan - Discharge Summary New Discharge Prescriptions: New hydrALAZINE HCL [Apresoline] 25 mg PO QID PRN #90 tab PRN Reason: Blood Pressure - High Furosemide [Lasix] 40 mg PO BID@0900,1600 #60 tab predniSONE 10 mg PO DAILY #20 tab Continue metFORMIN HCL [Glucophage] 1,000 mg PO BID-W/MEALS ARIPiprazole [Abilify] 5 mg PO HS Atorvastatin [Lipitor] 40 mg PO DAILY #30 tab Levothyroxine Sodium [Synthroid] 200 mcg PO DAILY HYDROcodone/APAP 7.5-325MG [Leeds 7.5-325] 1 tab PO Q6H PRN #12 tab PRN Reason: Pain traZODone HCL 100 mg PO HS PRN PRN Reason: Sedation Ferrous Sulfate [Iron (65 MG Elemental)] 325 mg PO Q48H Cholecalciferol [Vitamin D3 (25 Mcg = 1000 Iu)] 25 mcg PO DAILY Albuterol Sulfate [Albuterol Sulfate Hfa] 2 puff PO RT-Q6H PRN PRN Reason: Shortness Of Breath Albuterol Nebulized [Ventolin Nebulized] 2.5 mg INHALATION RT-Q6H PRN PRN Reason: Shortness Of Breath Citalopram Hydrobromide [CeleXA] 40 mg PO DAILY Methenamine Hippurate 1 gm PO BID Prochlorperazine Maleate 10 mg PO TID PRN PRN Reason: Nausea amLODIPine [Norvasc] 10 mg PO DAILY 30 Days #30 tab Acetaminophen Tab [Tylenol] 650 mg PO Q6HR PRN tab PRN Reason: Mild Pain Or Fever > 100.5 Metoprolol Succinate [Toprol XL] 25 mg PO DAILY Budesonide-Formot 160-4.5 Mcg [Symbicort 160-4.5 Mcg Inhaler] 2 puff INHALATION RT-BID Ipratropium-Albuterol Nebulize [Duoneb 0.5 mg-3 mg/3 ml Soln] 3 ml INHALATION RT-QID allopurinoL [Zyloprim] 100 mg PO DAILY Magnesium Oxide [Mag-Ox] 400 mg PO DAILY #30 tablet Nystatin 100,000Unit/gm Cream [Mycostatin Cream] 1 applic TOPICAL BID glipiZIDE [Glucotrol] 5 mg PO AC-BRKFST 30 Days #30 tab Discontinued Losartan [Cozaar] 50 mg PO DAILY 30 Days #30 tab Furosemide [Lasix] 40 mg PO DAILY 30 Days #30 tab Discharge Medication List ARIPiprazole [Abilify] 5 mg PO HS 02/07/18 [History] metFORMIN HCL [Glucophage] 1,000 mg PO BID-W/MEALS 02/07/18 [History] Atorvastatin [Lipitor] 40 mg PO DAILY #30 tab 09/10/18 [Rx] Levothyroxine Sodium [Synthroid] 200 mcg PO DAILY 09/03/19 [History] HYDROcodone/APAP 7.5-325MG [Leeds 7.5-325] 1 tab PO Q6H PRN #12 tab 03/27/20 [Rx] traZODone HCL 100 mg PO HS PRN 05/15/20 [History] Albuterol Nebulized [Ventolin Nebulized] 2.5 mg INHALATION RT-Q6H PRN 10/19/21 [History] Albuterol Sulfate [Albuterol Sulfate Hfa] 2 puff PO RT-Q6H PRN 10/19/21 [History] Cholecalciferol [Vitamin D3 (25 Mcg = 1000 Iu)] 25 mcg PO DAILY 10/19/21 [History] Ferrous Sulfate [Iron (65 MG Elemental)] 325 mg PO Q48H 10/19/21 [History] Metoprolol Succinate [Toprol XL] 25 mg PO DAILY 11/07/21 [History] Citalopram Hydrobromide [CeleXA] 40 mg PO DAILY 01/30/22 [History] Budesonide-Formot 160-4.5 Mcg [Symbicort 160-4.5 Mcg Inhaler] 2 puff INHALATION RT-BID 02/13/22 [History] Ipratropium-Albuterol Nebulize [Duoneb 0.5 mg-3 mg/3 ml Soln] 3 ml INHALATION RT-QID 02/13/22 [History] allopurinoL [Zyloprim] 100 mg PO DAILY 02/13/22 [History] Magnesium Oxide [Mag-Ox] 400 mg PO DAILY #30 tablet 02/16/22 [Rx] Methenamine Hippurate 1 gm PO BID 04/07/22 [History] Nystatin 100,000Unit/gm Cream [Mycostatin Cream] 1 applic TOPICAL BID 04/07/22 [History] Prochlorperazine Maleate 10 mg PO TID PRN 04/07/22 [History] Acetaminophen Tab [Tylenol] 650 mg PO Q6HR PRN tab 04/12/22 [Rx] amLODIPine [Norvasc] 10 mg PO DAILY 30 Days #30 tab 04/12/22 [Rx] glipiZIDE [Glucotrol] 5 mg PO AC-BRKFST 30 Days #30 tab 04/12/22 [Rx] Furosemide [Lasix] 40 mg PO BID@0900,1600 #60 tab 05/01/22 [Rx] hydrALAZINE HCL [Apresoline] 25 mg PO QID PRN #90 tab 05/01/22 [Rx] predniSONE 10 mg PO DAILY #20 tab 05/01/22 [Rx] Follow up Appointment(s)/Referral(s): Gael Oh MD [STAFF PHYSICIAN] - 1 Week Levi Austin MD [REFERRING] - 1-2 days Oliva Silveira MD [STAFF PHYSICIAN] - 1 Week Noah De Jesus DO [STAFF PHYSICIAN] - 1 Week Activity/Diet/Wound Care/Special Instructions: [facility] - [phone] Discharge Disposition: HOME WITH HOME HEALTH SERVICES
--- NOTE | 2022-05-01 14:40 | P.PN ---
Subjective Progress Note Date: 05/01/22 Principal diagnosis: Shortness of breath. Reevaluated today on 04/29/2022, patient remains in the selective care unit, patient remains on airvo she seems to be quite calm, feeling better, and my plan is to change airvo to high flow nasal cannula she is now on 50% FiO2 and 45 L/m flow. She does have BiPAP at bedside, but she seems to be more comfortable with airvo. Clinically better, however considering surgery requiring relatively high FiO2 and high flow, needs to be tapered down to her usual nasal cannula oxygen which is supposedly at 4 L/m WBC count is 16.5 hemoglobin is 8.8. Electrolytes are normal except for low potassium of 3.3 renal functioning has been gradually improving and she has a creatinine of 1.24 today compared to 1.83 on admission Pro calcitonin was relatively high on admission 1.97 and is trending down. Patient was reevaluated today on 04/30/2022, patient is feeling much better today, breathing a lot easier, almost near her baseline, however she remains on 6 L nasal cannula, O2 saturation 94%, she was on 8 L earlier this morning, patient is normally on 4 L of home. Hardly any cough no wheezing, on physical examination she had diminished breath sounds, no crackles or rhonchi or wheezes. WBC count today 16.0 hemoglobin 9.3 left. Normal renal profile is normal BUN is 50 creatinine 1.13. Patient is steadily improving, and I believe the patient could be considered for possible discharge planning in the next 24 hours if we could get her FiO2 down to 4 L on 5 L. Progress note dated 05/01/2022. This is a patient with a history of COPD. She didn't also now for 6 days. She uses home O2 at 4 L. She is currently between 4-5 L of oxygen here in the hospital. She's also getting saline at 10 mL an hour. The patient is hoping to be discharged home today. The patient states that she's feeling much better. Lab data today includes a white count of 21.4, hemoglobin 9.4, hematocrit 30.8, and platelet count of 362,000. Sodium 133, potassium 4.2, chloride 93, CO2 33, BUN 43, and creatinine 1.01. Objective - Vital Signs Vital signs: Vital Signs Temp 97.9 F 05/01/22 12:33 Pulse 80 05/01/22 12:33 Resp 18 05/01/22 12:33 BP 154/87 05/01/22 12:33 Pulse Ox 97 05/01/22 12:33 FiO2 50 04/29/22 12:34 Intake & Output 04/30/22 05/01/22 05/01/22 18:59 06:59 18:59 Intake Total 180 118 Output Total 2250 500 Balance -2070 -500 118 Weight 72.575 kg Intake: Oral 180 118 Output: Urine 2250 500 Other: Voiding Method Diaper Diaper Diaper External Catheter External Catheter External Catheter # Bowel Movements 1 - Exam No acute distress, oriented 3. No conversational dyspnea or use of accessory muscles. Patient currently on 5 L nasal cannula. HEENT examination is grossly unremarkable. Neck supple. Full range of motion. No adenopathy thyromegaly or neck vein distention. Cardiovascular examination reveals regular rhythm rate. S1-S2 normal. No S3 or S4. No discernible murmur noted. Lungs reveal mostly clear breath sounds. Scattered rhonchi are noted. No wheezes. No crackles. Breath sounds equal bilaterally. Abdomen soft bowel sounds are heard. No masses or tenderness. Extremities are intact. No cyanosis clubbing or edema. Skin is without rash or lesion. Neurologic examination is brief but nonfocal. - Labs CBC & Chem 7: 05/01/22 06:29 05/01/22 06:29 Labs: Abnormal Lab Results - Last 24 Hours (Table) 04/30/22 04/30/22 05/01/22 Range/Units 16:32 19:44 06:29 WBC 21.4 H (3.8-10.6) k/uL RBC 3.20 L (3.80-5.40) m/uL Hgb 9.4 L (11.4-16.0) gm/dL Hct 30.8 L (34.0-46.0) % MCHC 30.4 L (31.0-37.0) g/dL RDW 16.0 H (11.5-15.5) % Neutrophils # (Manual) 18.10 H (1.3-7.7) k/uL Monocytes # (Manual) 1.07 H (0-1.0) k/uL Metamyelocytes # (Man) 0.64 H (0) k/uL Myelocytes # (Manual) 0.86 H (0) k/uL Sodium (137-145) mmol/L Chloride (98-107) mmol/L Carbon Dioxide (22-30) mmol/L BUN (7-17) mg/dL Glucose (74-99) mg/dL POC Glucose (mg/dL) 265 H 386 H (70-110) mg/dL Calcium (8.4-10.2) mg/dL 05/01/22 05/01/22 05/01/22 Range/Units 06:29 07:06 12:03 WBC (3.8-10.6) k/uL RBC (3.80-5.40) m/uL Hgb (11.4-16.0) gm/dL Hct (34.0-46.0) % MCHC (31.0-37.0) g/dL RDW (11.5-15.5) % Neutrophils # (Manual) (1.3-7.7) k/uL Monocytes # (Manual) (0-1.0) k/uL Metamyelocytes # (Man) (0) k/uL Myelocytes # (Manual) (0) k/uL Sodium 133 L (137-145) mmol/L Chloride 93 L (98-107) mmol/L Carbon Dioxide 33 H (22-30) mmol/L BUN 43 H (7-17) mg/dL Glucose 214 H (74-99) mg/dL POC Glucose (mg/dL) 218 H 388 H (70-110) mg/dL Calcium 8.2 L (8.4-10.2) mg/dL Assessment and Plan Assessment: Acute on chronic hypoxemic respiratory failure. COPD exacerbation. Acute on chronic congestive heart failure, with preserved ejection fraction. Acute kidney injury, improved. History of hypertension. Moderate aortic stenosis. Previous history of tobacco use. Type 2 diabetes mellitus. Generalized anxiety disorder. Chronic cellulitis of the lower extremities. Plan: Plan dated 05/01/2022. The patient is doing relatively well. The patient is currently on 4-5 L of oxygen which is what she uses at home. She's feeling much better. She continu es on steroids, diuretics, antibiotics, and GI and DVT prophylaxis. Labs, x- rays, medications are reviewed. She'll follow-up in our office. No additional recommendations are made. Prognosis is guarded. Time with Patient: Less than 30
[2022-05-01] MEDS ORDERED: FUROSEMIDE 40 MG TAB PO SCH (16:00)
[2022-05-02] MEDS ORDERED: FAMOTIDINE 20 MG TAB PO SCH (09:00)
== END 2022-05-01 15:12 | disposition home health service (06) | DRG 291 ==
LOC: EC 11:17 → 3SCARD 12:46
PROVIDERS: ADMIT Hospitalist; ATTEND Hospitalist
PROC: 5A09357 Assistance with Respiratory Ventilation, Less than 24 Consecutive Hours, Continuous Positive Airway Pressure (ICD-10-PCS; principal; 2022-04-27)
DX: I13.0 Hypertensive heart and chronic kidney disease with heart failure and stage 1 through stage 4 chronic kidney disease, or unspecified chronic kidney disease (principal); I50.33 Acute on chronic diastolic (congestive) heart failure; J18.9 Pneumonia, unspecified organism; J96.21 Acute and chronic respiratory failure with hypoxia; Z68.41 Body mass index [BMI] 40.0-44.9, adult; L97.922 Non-pressure chronic ulcer of unspecified part of left lower leg with fat layer exposed; I87.312 Chronic venous hypertension (idiopathic) with ulcer of left lower extremity; L97.929 Non-pressure chronic ulcer of unspecified part of left lower leg with unspecified severity; L97.321 Non-pressure chronic ulcer of left ankle limited to breakdown of skin; J44.0 Chronic obstructive pulmonary disease with (acute) lower respiratory infection; J44.1 Chronic obstructive pulmonary disease with (acute) exacerbation; L03.115 Cellulitis of right lower limb; L03.116 Cellulitis of left lower limb; N17.9 Acute kidney failure, unspecified; E03.9 Hypothyroidism, unspecified; E11.22 Type 2 diabetes mellitus with diabetic chronic kidney disease; N18.32 Chronic kidney disease, stage 3b; E78.5 Hyperlipidemia, unspecified; M19.90 Unspecified osteoarthritis, unspecified site; E66.01 Morbid (severe) obesity due to excess calories; E11.622 Type 2 diabetes mellitus with other skin ulcer; D63.1 Anemia in chronic kidney disease; E87.6 Hypokalemia; F17.200 Nicotine dependence, unspecified, uncomplicated; R53.81 Other malaise; F32.A Depression, unspecified; F41.1 Generalized anxiety disorder; I87.2 Venous insufficiency (chronic) (peripheral); M51.36 Other intervertebral disc degeneration, lumbar region; G89.29 Other chronic pain; M54.9 Dorsalgia, unspecified; I35.0 Nonrheumatic aortic (valve) stenosis; Z79.4 Long term (current) use of insulin; Z79.51 Long term (current) use of inhaled steroids; Z79.84 Long term (current) use of oral hypoglycemic drugs; Z79.890 Hormone replacement therapy; Z79.899 Other long term (current) drug therapy; Z85.828 Personal history of other malignant neoplasm of skin; Z91.81 History of falling; Z88.0 Allergy status to penicillin; Z93.3 Colostomy status; Z99.81 Dependence on supplemental oxygen; Z88.2 Allergy status to sulfonamides; Z88.8 Allergy status to other drugs, medicaments and biological substances; Z88.1 Allergy status to other antibiotic agents; Z91.040 Latex allergy status; Z82.5 Family history of asthma and other chronic lower respiratory diseases
CPT/HCPCS: 36415; 71045; 80048; 80053; 80076; 83036; 83605; 83735; 83880; 84145; 84484; 85025; 85610; 85730; 93005; 93970; 94640; 94660; 94760; 99291